=== PATIENT | female | born 1940 | race Caucasian/White ===

== ENCOUNTER 2016-12-08 18:13 | Inpatient (IN) | payer MEDICARE, OTHER ==
[~2016-12-08] VITALS: Ht 152.4 cm; Wt 72.6 kg
[~2016-12-08 18:13] MED LIST: AMLODIPINE BES2.5 MG PO; ARICEPT10 MG ORAL; ARICEPT10 MG PO; ASPIRIN EC81 MG PO; BYSTOLIC10 MG PO; DOCUSATE SODIU100 MG PO; HUMALOG100 UNIT/4 SUBQ; LORAZEPAM0.5 MG PO; NAMENDA10 MG PO; NEXIUM40 MG PO; NOVOLIN N100 UNIT/1 SUBQ; NOVOLIN R100 UNIT/1 SUBQ; SYNTHROID25 MCG PO; WELLBUTRIN75 MG ORAL
[2016-12-08] MEDS ORDERED: Vancomycin 1.5gm/D5W 300ml 325 ML IVPB ONE (18:45)
[2016-12-08] MEDS ORDERED: cefTRIAXone 1 GM in NS 55 ML IVPB ONE (18:45)
--- NOTE | 2016-12-08 19:04 | Emergency Room Report ---
History of Present Illness General Chief Complaint: General Complaint Source: Patient, Family Member Present Illness HPI Patient was seen by a scleroscope tester earlier today Patient has history of diabetes in the area on the right ankle has been worsening now increased erythema and open site Family denies any fevers Denies any vomiting or diarrhea Home health nurse apparently saw the area initially on Thursday After further outpatient attempt patient was sent in for further care Allergies: Coded Allergies: MORPHINE (Verified Adverse Reaction, Severe, PARADOXICAL REACTION, 10/08/12 ) Patient History Past Medical History: see triage record Pertinent Family History: none Reviewed Nursing Documentation: PMH: Agreed, PSxH: Agreed Nursing Documentation-PMH Past Medical History: No History, Except For Hx Cardiac Problems: Yes - Stents Hx Hypertension: Yes Hx Pacemaker: No Hx Asthma: No Hx COPD: No Hx Diabetes: Yes Hx Cancer: No Hx Gastrointestinal Problems: Yes - Cholecystecomy Hx Dialysis: No Hx Neurological Problems: Yes - Dementia Hx Cerebrovascular Accident: No Hx Dementia: Yes Hx Alzheimer's Disease: Yes Hx Seizures: No Hx Memory Loss: Yes Hx Concentration Difficulty: Yes Hx Tremors: Yes Hx Dizziness: Yes Hx Headaches: Yes Hx Weakness: Yes Review of Systems All Other Systems: negative except mentioned in HPI Physical Exam Vital Signs Date Time Temp Pulse Resp B/P Pulse Ox O2 Delivery O2 Flow Rate FiO2 12/08/16 18:35 97.5 73 16 145/70 95 Room Air Sp02 EP Interpretation: reviewed, normal General Appearance: well appearing, no apparent distress Head: normocephalic, atraumatic Eyes: bilateral eye EOMI, bilateral eye PERRL ENT: hearing grossly normal, normal pharynx, TMs + canals normal, uvula midline Neck: full range of motion, supple, no meningismus, no bony tend Respiratory: lungs clear, normal breath sounds, no rhonchi, no respiratory distress, no retraction, no accessory muscle use Cardiovascular #1: normal peripheral pulses, regular rate, rhythm, no edema, no gallop, no JVD, no murmur Gastrointestinal: normal bowel sounds, non tender, soft, no mass, no organomegaly, non-distended, no guarding, no hernia, no pulsatile mass, no rebound Genitourinary: no CVA tenderness Musculoskeletal: other - Lateral aspect of the right ankle there is a open wound mild discharge, increased erythema and mild fluctuance is palpable, patient also appears to have a previous surgical scar on the medial aspect Neurologic: oriented x3, responsive, it systems engineer III-XII nml as tested, motor strength/ tone normal, sensory intact Psychiatric: mood/affect normal Skin: other - Erythema and open wounds as noted above Lymphatic: normal inspection, no adenopathy Medical Decision Making Diagnostic Impression: Primary Impression: Cellulitis in diabetic foot Additional Impression: Decubitus ulcer ER Course Given the patient's evaluation Examination of the patient's foot In general appearance patient required IV hydration antibiotics Baseline blood work was initiated Patient showing signs of renal insufficiency Imaging was also obtained does not show any obvious osteoarthritis the patient was admitted for further care Labs Test 12/08/16 19:00 12/09/16 08:30 White Blood Count 10.3 K/UL (4.8-10.8) Red Blood Count 4.14 M/UL (4.20-5.40) Hemoglobin 12.1 G/DL (12.0-16.0) Hematocrit 37.7 % (37.0-47.0) Mean Corpuscular Volume 91 FL (80-99) Mean Corpuscular Hemoglobin 29.3 PG (27.0-31.0) Mean Corpuscular Hemoglobin Concent 32.2 G/DL (32.0-36.0) Red Cell Distribution Width 12.9 % (11.6-14.8) Platelet Count 164 K/UL (150-450) Mean Platelet Volume 7.3 FL (6.5-10.1) Neutrophils (%) (Auto) 73.7 % (45.0-75.0) Lymphocytes (%) (Auto) 15.0 % (20.0-45.0) Monocytes (%) (Auto) 6.5 % (1.0-10.0) Eosinophils (%) (Auto) 3.7 % (0.0-3.0) Basophils (%) (Auto) 1.1 % (0.0-2.0) Sodium Level 141 mEQ/L (135-145) 141 mEQ/L (135-145) Potassium Level 4.9 mEQ/L (3.4-4.9) 5.0 mEQ/L (3.4-4.9) Chloride Level 103 mEQ/L (98-107) 104 mEQ/L (98-107) Carbon Dioxide Level 23 mEQ/L (20-30) 23 mEQ/L (20-30) Anion Gap 15 (5-15) 14 (5-15) Blood Urea Nitrogen 25 mg/dL (7-23) 23 mg/dL (7-23) Creatinine 1.4 mg/dL (0.5-0.9) 1.4 mg/dL (0.5-0.9) Estimat Glomerular Filtration Rate mL/min (>60) mL/min (>60) Glucose Level 224 mg/dL (74-106) 258 mg/dL (74-106) Lactic Acid Level 1.60 mmol/L (0.66-2.22) Calcium Level 8.6 mg/dL (8.6-10.2) 8.7 mg/dL (8.6-10.2) Total Bilirubin 0.2 mg/dL (0.0-1.2) 0.2 mg/dL (0.0-1.2) Aspartate Amino Transf (AST/SGOT) 13 U/L (5-40) 11 U/L (5-40) Alanine Aminotransferase (ALT/SGPT) 9 U/L (3-33) 7 U/L (3-33) Alkaline Phosphatase 76 U/L (35-104) 64 U/L (35-104) Total Creatine Kinase 40 U/L (26-140) 32 U/L (26-140) Creatine Kinase MB < 1.5 ng/mL (< 3.8) Creatine Kinase MB Relative Index Total Protein 6.1 g/dL (6.6-8.7) 5.4 g/dL (6.6-8.7) Albumin 3.3 g/dL (3.5-5.2) 2.8 g/dL (3.5-5.2) Globulin 2.8 g/dL 2.6 g/dL Albumin/Globulin Ratio 1.1 (1.0-2.7) 1.0 (1.0-2.7) Uric Acid 2.6 mg/dL (3.0-7.5) Phosphorus Level 2.8 mg/dL (2.5-4.8) Magnesium Level 1.5 mg/dL (1.7-2.5) Free Thyroxine 1.33 ng/dL (0.86-1.85) Free Triiodothyronine 2.0 pg/mL (2.3-4.2) Rhythm Strip Diag. Results EP Interpretation: yes Rate: 77 Rhythm: NSR, no PVC's, no ectopy Chest X-Ray Diagnostic Results EP Interpretation: Yes Findings: no consolidation, no effusion, no pneumothorax Number of Views: 1 Other X-Ray Diagnostic Results Other X-Ray Diagnostic Results : EP Interpretation: Yes Findings: no fractures, no dislocation, other - Evidence of previous hardware surgery, soft tissue changes Number of Views: 3 - right ankle Last Vital Signs Date Time Temp Pulse Resp B/P Pulse Ox O2 Delivery O2 Flow Rate FiO2 12/08/16 18:35 97.5 73 16 145/70 95 Room Air Status: improved Disposition: ADMITTED INPATIENT Condition: Serious Referrals: LOYDA ALATORRE (PCP) YANA GAMING D.O. Dec 08, 2016 19:03
[2016-12-08 20:02] LABS: BASOPHILS % (AUTO) 1.1 % (0.0-2.0); EOSINOPHILS % (AUTO) 3.7 % (0.0-3.0); MEAN CORPUSCULAR HEMOGLOBIN 29.3 PG (27.0-31.0); MEAN CORPUSCULAR HGB CONC 32.2 G/DL (32.0-36.0); MEAN CORPUSCULAR VOLUME 91 FL (80-99); MEAN PLATELET VOLUME 7.3 FL (6.5-10.1); MONOCYTES % (AUTO) 6.5 % (1.0-10.0); NEUTROPHILS % (AUTO) 73.7 % (45.0-75.0); PLATELET COUNT 164 K/UL (150-450); RED BLOOD COUNT 4.14 M/UL (4.20-5.40); RED CELL DISTRIBUTION WIDTH 12.9 % (11.6-14.8); WHITE BLOOD COUNT 10.3 K/UL (4.8-10.8)
[2016-12-08 20:15] LABS: ALANINE AMINOTRANSFERASE 9 U/L (3-33); ALBUMIN/GLOBULIN RATIO 1.1 (1.0-2.7); ANION GAP 15 (5-15); ASPARTATE AMINO TRANSFERASE 13 U/L (5-40); CALCIUM 8.6 mg/dL (8.6-10.2); CARBON DIOXIDE 23 mEQ/L (20-30); CHLORIDE 103 mEQ/L (98-107); CREATININE 1.4 mg/dL (0.5-0.9); HEMOLYSIS 7; POTASSIUM 4.9 mEQ/L (3.4-4.9); SODIUM 141 mEQ/L (135-145); TOTAL PROTEIN 6.1 g/dL (6.6-8.7)
[2016-12-08 20:25] LABS: CKMB < 1.5 ng/mL (< 3.8)
[2016-12-08] MEDS ORDERED: NOVOLIN N100 UNIT/1 SUBQ ×2 (20:27)
[2016-12-08] MEDS ORDERED: NOVOLOG100 UNIT/4 SQ (20:28)
[2016-12-08] MEDS ORDERED: DOCUSATE SODIU100 MG ORAL (20:29)
[2016-12-08] MEDS ORDERED: MULTIVITAMINS1 EAC2 ORAL (20:29)
[2016-12-08 20:48] VITALS: BP 156/67
[2016-12-08] MEDS ORDERED: TORSEMIDE10 MG PO (20:51)
[2016-12-08] MEDS ORDERED: FOSAMAX70 MG ORAL (20:51)
[2016-12-08] MEDS ORDERED: CRESTOR10 M2 ORAL (20:55)
[2016-12-08] MEDS ORDERED: PLAVIX75 MG ORAL (20:55)
[2016-12-08] MEDS ORDERED: NEXIUM20 M1 ORAL (20:55)
[2016-12-08] MEDS ORDERED: PAZEO2.5 ML OP (20:55)
[2016-12-08] MEDS ORDERED: EDARBYCLOR 40-1 EACH ORAL (20:58)
[2016-12-08] MEDS ORDERED: NAMZARIC 21 MG1 EACH PO (20:58)
[2016-12-08] MEDS ORDERED: ULORIC40 MG ORAL (20:58)
[2016-12-08 22:00] VITALS: BP 162/77
[2016-12-08] MEDS ORDERED: DiphenhydrAMINE 50mg/ml Inj IVP PRN (22:45)
[2016-12-09] VITALS: BP 148/81
[2016-12-09 04:00] VITALS: BP 117/59
[2016-12-09] MEDS ORDERED: LORazepam Inj 2mg/ml 1ml IV PRN (05:45)
[2016-12-09] MEDS ORDERED: Mylanta II UD 30ml ORAL PRN (05:45)
[2016-12-09] MEDS ORDERED: Miralax 17gm pkt ORAL PRN (05:45)
[2016-12-09] MEDS ORDERED: Morphine Sulfate 2mg/ml Inj IVP PRN (05:45)
[2016-12-09] MEDS ORDERED: Zolpidem 5mg tab ORAL PRN (05:45)
[2016-12-09] MEDS ORDERED: Cefepime 1gm vial ONE (06:05)
[2016-12-09] MEDS: Cefepime HCl 1 GM in D5W 55 ML IV SCH (06:15)
[2016-12-09] MEDS: Levothyroxine 25mcg tab ORAL SCH (06:16)
[2016-12-09] MEDS: NovoLOG Insulin Flexpen SUBQ SCH ×4 (06:25→21:58)
[2016-12-09 08:30] VITALS: BP 128/60
[2016-12-09] MEDS: Donepezil 10mg tab ORAL SCH (08:43)
[2016-12-09] MEDS: Memantine 10mg tab ORAL SCH (08:43)
[2016-12-09] MEDS: Aspirin EC 81mg tab ORAL SCH (08:43)
[2016-12-09] MEDS: Bystolic 2.5mg Tab ORAL SCH (08:43)
[2016-12-09] MEDS: Heparin 5000 units/ml inj SUBQ SCH ×2 (08:49→21:59)
[2016-12-09 09:30] LABS: ALANINE AMINOTRANSFERASE 7 U/L (3-33); ANION GAP 14 (5-15); ASPARTATE AMINO TRANSFERASE 11 U/L (5-40); CALCIUM 8.7 mg/dL (8.6-10.2); CARBON DIOXIDE 23 mEQ/L (20-30); CHLORIDE 104 mEQ/L (98-107); CREATININE 1.4 mg/dL (0.5-0.9); HEMOLYSIS 7; MAGNESIUM 1.5 mg/dL (1.7-2.5); PHOSPHORUS 2.8 mg/dL (2.5-4.8); SODIUM 141 mEQ/L (135-145); TOTAL PROTEIN 5.4 g/dL (6.6-8.7); URIC ACID 2.6 mg/dL (3.0-7.5)
--- NOTE | 2016-12-09 09:36 | Diagnostic Imaging Report ---
Indication: PAIN Technique: 3 views of the right ankle Comparison: none Findings: There is surgical hardware seen reducing old healed distal fibular and medial malleolar fractures. No acute fractures. No dislocations. Bones are demineralized. There are vascular calcifications Impression: Postsurgical and posttraumatic changes, as described No acute bony trauma
--- NOTE | 2016-12-09 10:26 | Wound Care Consultation ---
Wound Assessment Wound Assessment #1: Wound Number: #1 Wound Present on Admission: Yes New Wound: No Status Change of Wound: No Wound Location Body Site Modif: right, lateral Wound Location Body Site: malleolus/ankle Wound Type: pressure ulcer Ewelina Test: Does not Ewelina Pressure Ulcer Stage: IV/unstageable Wound Thickness: Full Thickness Wound Length: 2.0 Wound Width: 2.0 Wound Depth: utd Percent of Wound Bed Yellow/Wh: 70 Percent of Wound Black/Brown: 10 Percent of Wound Purple/Maroon: 20 Wound Drainage Amount: None Wound Drainage Odor: None/Absent Tissue Surrounding Wound: Macerated Wound General Appearance: Reddened, Bone Palpable - bone is palpable but not visible. Wound Assessment #2: Wound Number: #2 Wound Present on Admission: Yes New Wound: No Status Change of Wound: No Wound Location Body Site Modif: mid Wound Location Body Site: sacral Wound Type: pressure ulcer Ewelina Test: Does not Ewelina Pressure Ulcer Stage: I Wound Length: 4.0 Wound Width: 4.0 Percent of Wound [place]/Red: 100 Wound Drainage Amount: None Tissue Surrounding Wound: Erythemic - skin remains intact Wound General Appearance: Reddened Wound Assessment #3: Wound Number: #3 Wound Present on Admission: Yes New Wound: No Status Change of Wound: No Wound Location Body Site Modif: right Wound Location Body Site: breast fold Wound Type: other - intertrigo Ewelina Test: Does not Ewelina Wound Thickness: Partial Thickness Wound Drainage Amount: None Wound Drainage Odor: None/Absent Tissue Surrounding Wound: Erythemic Wound General Appearance: Reddened, Open to air Wound Comment #1 Right lateral malleolus pressure ulcer stage IV/Unstageable. #2 Right breast fold Intertrigo #3 Sacral pressure ulcer stage I. Recommendation -FOLLOW UP WITH PODIATRY. -Apply low air loss overlay mattress (SPR). -Turn and reposition. -Offload both heels and feet. -Offload sacral site. -Apply heel protectors. -Optimize nutrition. -Keep clean and dry. -Assess and follow up with MD if any changes of condition are noted. JEOVANY HOGUE Dec 09, 2016 10:26
[2016-12-09 12:00] VITALS: BP 145/72
[2016-12-09] MEDS: Nystatin Powder 100,000 units/gm 15gm TOPIC SCH ×2 (12:36→18:01)
--- NOTE | 2016-12-09 12:40 | Diagnostic Imaging Report ---
Indication: SOB Technique: One view of the chest Comparison: 05/20/2013 Findings: There is some atelectasis of the left lung base. Patient is rotated to the right. The heart is enlarged. Findings are unchanged Impression: Cardiomegaly. No acute process
--- NOTE | 2016-12-09 15:31 | History and Physical ---
History of Present Illness General Date patient seen: Dec 09, 2016 Reason for Hospitalization: General Complaint Present Illness HPI 76 year old female with hx of Dementia, bed bound, diabetes, presented to ER with worsening of Left foot ulcer. Patient was seen by a sash maker earlier, who recommended hospitalization and IV antibiotics Family denies any fevers. After further outpatient attempt patient was sent in for further care. Allergies: Coded Allergies: MORPHINE (Verified Adverse Reaction, Severe, PARADOXICAL REACTION, 10/08/12 ) Medication History Scheduled Alendronate Sodium* (Fosamax*), 70 MG ORAL ONCE A WEEK, (Reported) Amlodipine Besylate* (Amlodipine Besylate*), 2.5 MG PO DAILY, (Reported) Aspirin Ec* (Aspirin Ec*), 81 MG PO DAILY, (Reported) Azilsartan Med/Chlorthalidone (Edarbyclor 40-12.5 Mg Tablet), 1 TAB ORAL DAILY, (Reported) Bupropion Hcl* (Wellbutrin*), MG ORAL DAILY, (Reported) Clopidogrel Bisulfate* (Plavix*), 75 MG ORAL DAILY, (Reported) Docusate Sodium* (Docusate Sodium*), 100 MG PO BID, (Reported) Docusate Sodium* (Docusate Sodium*), 100 MG ORAL TWICE A DAY, (Reported) Donepezil Hcl* (Aricept*), 10 MG PO DAILY, (Reported) Esomeprazole Magnesium (Nexium), 40 MG PO DAILY, (Reported) Esomeprazole Magnesium (Nexium), Unknown Dose ORAL DAILY, (Reported) Febuxostat (Uloric), 40 MG ORAL DAILY, (Reported) Insulin Aspart (Novolog), Unknown Dose SQ AC+HS, (Reported) Insulin Lispro (Humalog), 16 SUBQ BID, (Reported) Insulin Regular, Human* (Novolin R*), 0 SUBQ .SLIDING SCALE, (Reported) Levothyroxine Sodium* (Synthroid*), 25 MCG PO DAILY, (Reported) Lorazepam* (Lorazepam*), 0.5 MG PO TID, (Reported) Memantine HCl/Donepezil HCl (Namzaric 21 Mg-10 Mg Capsule), 1 EACH PO DAILY, ( Reported) Memantine Hcl* (Namenda*), 10 MG PO DAILY, (Reported) Multivitamins* (Multivitamins*), 1 TAB ORAL DAILY, (Reported) Nebivolol Hcl (Bystolic*), 5 MG PO DAILY, (Reported) Nph, Human Insulin Isophane* (Novolin N*), 20 SUBQ BID, (Reported) Nph, Human Insulin Isophane* (Novolin N*), 15 UNITS SUBQ DAILY, (Reported) Rosuvastatin Calcium* (Crestor*), 10 MG ORAL DAILY, (Reported) Torsemide* (Demadex*), 10 MG PO DAILY, (Reported) Miscellaneous Medications Nph, Human Insulin Isophane* (Novolin N*), 5 UNITS SUBQ, (Reported) Olopatadine HCl (Pazeo), 2.5 ML OP, (Reported) Patient History Healthcare decision maker Resuscitation status Advanced Directive on File No Past Medical/Surgical History Past Medical/Surgical History: (1) Dementia (2) Diabetes mellitus Review of Systems All Other Systems: negative except mentioned in HPI Physical Exam General Appearance: WD/WN Lines, tubes and drains: peripheral, central line HEENT: normocephalic, anicteric Neck: non-tender, normal alignment Respiratory/Chest: chest wall non-tender, lungs clear, normal breath sounds Cardiovascular/Chest: normal peripheral pulses, normal rate Abdomen: normal bowel sounds, non tender Genitourinary/Rectal: normal genital exam, normal rectal exam Extremities: normal range of motion, non-tender Last 24 Hour Vital Signs Date Time Temp Pulse Resp B/P Pulse Ox O2 Delivery O2 Flow Rate FiO2 12/09/16 12:00 97.7 58 19 145/72 96 Room Air 12/09/16 08:43 62 117/59 12/09/16 08:30 97.7 60 19 128/60 94 Room Air 12/09/16 04:00 97.7 62 18 117/59 93 Room Air 12/09/16 00:00 97.3 56 18 148/81 96 Room Air 12/08/16 23:21 162/77 12/08/16 22:00 97.2 54 16 162/77 97 Room Air 12/08/16 21:10 58 16 164/65 99 Room Air 12/08/16 20:48 96.8 55 14 156/67 97 Room Air 12/08/16 18:35 97.5 73 16 145/70 95 Room Air Intake and Output 12/08/16 12/09/16 19:00 07:00 Intake Total 205 ml Balance 205 ml Intake Oral 100 ml IV Total 105 ml # Voids 3 # Bowel Movements 2 Laboratory Tests Test 12/08/16 19:00 12/09/16 08:30 White Blood Count 10.3 K/UL (4.8-10.8) Red Blood Count 4.14 M/UL (4.20-5.40) L Hemoglobin 12.1 G/DL (12.0-16.0) Hematocrit 37.7 % (37.0-47.0) Mean Corpuscular Volume 91 FL (80-99) Mean Corpuscular Hemoglobin 29.3 PG (27.0-31.0) Mean Corpuscular Hemoglobin Concent 32.2 G/DL (32.0-36.0) Red Cell Distribution Width 12.9 % (11.6-14.8) Platelet Count 164 K/UL (150-450) Mean Platelet Volume 7.3 FL (6.5-10.1) Neutrophils (%) (Auto) 73.7 % (45.0-75.0) Lymphocytes (%) (Auto) 15.0 % (20.0-45.0) L Monocytes (%) (Auto) 6.5 % (1.0-10.0) Eosinophils (%) (Auto) 3.7 % (0.0-3.0) H Basophils (%) (Auto) 1.1 % (0.0-2.0) Sodium Level 141 mEQ/L (135-145) 141 mEQ/L (135-145) Potassium Level 4.9 mEQ/L (3.4-4.9) 5.0 mEQ/L (3.4-4.9) H Chloride Level 103 mEQ/L (98-107) 104 mEQ/L (98-107) Carbon Dioxide Level 23 mEQ/L (20-30) 23 mEQ/L (20-30) Anion Gap 15 (5-15) 14 (5-15) Blood Urea Nitrogen 25 mg/dL (7-23) H 23 mg/dL (7-23) Creatinine 1.4 mg/dL (0.5-0.9) H 1.4 mg/dL (0.5-0.9) H Estimat Glomerular Filtration Rate mL/min (>60) mL/min (>60) Glucose Level 224 mg/dL (74-106) H 258 mg/dL (74-106) H Lactic Acid Level 1.60 mmol/L (0.66-2.22) Calcium Level 8.6 mg/dL (8.6-10.2) 8.7 mg/dL (8.6-10.2) Total Bilirubin 0.2 mg/dL (0.0-1.2) 0.2 mg/dL (0.0-1.2) Aspartate Amino Transf (AST/SGOT) 13 U/L (5-40) 11 U/L (5-40) Alanine Aminotransferase (ALT/SGPT) 9 U/L (3-33) 7 U/L (3-33) Alkaline Phosphatase 76 U/L (35-104) 64 U/L (35-104) Total Creatine Kinase 40 U/L (26-140) 32 U/L (26-140) Creatine Kinase MB < 1.5 ng/mL (< 3.8) Creatine Kinase MB Relative Index Total Protein 6.1 g/dL (6.6-8.7) L 5.4 g/dL (6.6-8.7) L Albumin 3.3 g/dL (3.5-5.2) L 2.8 g/dL (3.5-5.2) L Globulin 2.8 g/dL 2.6 g/dL Albumin/Globulin Ratio 1.1 (1.0-2.7) 1.0 (1.0-2.7) Plasma/Serum Osmolality Pending Uric Acid 2.6 mg/dL (3.0-7.5) L Phosphorus Level 2.8 mg/dL (2.5-4.8) Magnesium Level 1.5 mg/dL (1.7-2.5) L Free Thyroxine 1.33 ng/dL (0.86-1.85) Free Triiodothyronine 2.0 pg/mL (2.3-4.2) L Cortisol Pending Height (Feet): 5 Height (Inches): 0.00 Weight (Pounds): 160 Medications Current Medications Medications (Trade) Dose Ordered Sig/Rina Route PRN Reason Start Time Stop Time Status Last Admin Dose Admin Acetaminophen (Tylenol) 650 mg Q4H PRN ORAL fever 12/09/16 05:45 317 05:44 Al Hydroxide/Mg Hydroxide (Mylanta II) 30 ml Q6H PRN ORAL dyspepsia 12/09/16 05:45 01/08/17 05:44 Amlodipine Besylate (Norvasc) 2.5 mg DAILY ORAL 12/09/16 09:00 01/08/17 08:59 12/09/16 08:43 Aspirin (Ecotrin) 81 mg DAILY ORAL 12/09/16 09:00 01/08/17 08:59 12/09/16 08:43 Cefepime HCl/ Dextrose (Maxipime/D5W) 55 ml @ 110 mls/hr Q24H IV 12/09/16 06:00 12/16/16 05:59 12/09/16 06:15 Clonidine HCl (Catapres) 0.1 mg EVERY 6 HOURS PRN ORAL SBP>160 12/08/16 22:15 01/07/17 22:14 12/08/16 23:21 Dextrose STAT PRN IV Hypoglycemia 12/09/16 05:45 01/08/17 05:44 Diphenhydramine HCl (Benadryl) 25 mg Q6H PRN IVP Itching 12/08/16 22:45 01/07/17 22:44 Donepezil HCl (Aricept) 10 mg DAILY ORAL 12/09/16 09:00 01/08/17 08:59 12/09/16 08:43 Heparin Sodium (Porcine) (Heparin 5000 units/ml) 5,000 units EVERY 12 HOURS SUBQ 12/09/16 09:00 01/08/17 08:59 12/09/16 08:49 Insulin Aspart (NovoLOG) BEFORE MEALS AND HS SUBQ 12/09/16 06:30 01/08/17 06:29 12/09/16 11:43 Levothyroxine Sodium (Synthroid) 25 mcg ACBREAKFAST ORAL 12/09/16 06:30 01/08/17 06:29 12/09/16 06:16 Lorazepam (Ativan 2mg/ml 1ml) 0.5 mg Q4H PRN IV For Anxiety 12/09/16 05:45 12/16/16 05:44 Memantine (Namenda) 10 mg DAILY ORAL 12/09/16 09:00 01/08/17 08:59 12/09/16 08:43 Nebivolol (Bystolic) 5 mg DAILY ORAL 12/09/16 09:00 01/08/17 08:59 12/09/16 08:43 Nystatin (Nystop Powder) 1 applic THREE TIMES A DAY TOPIC 12/09/16 13:00 01/08/17 12:59 12/09/16 12:36 Ondansetron HCl (Zofran) 4 mg Q6H PRN IVP Nausea & Vomiting 12/09/16 05:45 01/08/17 05:44 Polyethylene Glycol (Miralax) 17 gm HSPRN PRN ORAL Constipation 12/09/16 05:45 01/08/17 05:44 Vancomycin HCl 1 ea 1 ea DAILY PRN MISC Per rx protocol 12/09/16 05:45 01/08/17 05:44 Vancomycin HCl/ Dextrose (Vancomycin/D5W) 275 ml @ 183.708 mls/hr Q24H IVPB 12/09/16 21:00 12/14/16 20:59 Zolpidem Tartrate (Ambien) 5 mg HSPRN PRN ORAL Insomnia 12/09/16 05:45 01/08/17 05:44 Assessment/Plan Problem List: (1) Cellulitis in diabetic foot ICD Codes: E13.628 - Other specified diabetes mellitus with other skin complications; L03.119 - Cellulitis of unspecified part of limb SNOMED: 882705785, 78325687 (2) Decubitus ulcer ICD Codes: L89.90 - Pressure ulcer of unspecified site, unspecified stage SNOMED: 469159708 (3) Dementia ICD Codes: F03.90 - Unspecified dementia without behavioral disturbance SNOMED: 52048798 (4) Diabetes mellitus ICD Codes: E11.9 - Type 2 diabetes mellitus without complications SNOMED: 24121329 Assessment/Plan wound care IV antibiotics podiatry sliding scale diabetic diet SHYAM NAVA Dec 09, 2016 15:31
[2016-12-09 16:00] VITALS: BP 134/72
--- NOTE | 2016-12-09 16:05 | Consultation ---
Consult Note Assessment/Plan A/ 1) Cellulitis right LE 2) Nonpressure ulcer to level of fascia right lateral ankle 3) DM 4) Difficulty walking 5) S/P ORIF right ankle P/ 1) Cont IV abx as ordered 2) Will order wound care 3) Bone Scan to evaluate for osteo. MRI C/I 2/2 to hardware present 4) Arterial Ultz pending. X-rays and Venous ultz reviewed 5) Will follow Thank you Barry Ivey DPM Dec 09, 2016 16:05
--- NOTE | 2016-12-09 18:07 | Consultation ---
Consult Note Consult Note ID CONSULT: Dict# [id number] Assessment/Plan ASSESSMENT: 76 y/o female with: // Right medial ankle cellulitis, ulcer r/o osteomyelitis, hardware infection - 3P bone scan: pending - XR: surgical hardware seen reducing old healed distal fibular and medial malleolar fractures. No acute fractures. No dislocations. Bones are demineralized. - h/o right ankle ORIF // Winter intertrigo // Afebrile without leukocytosis // Dementia // DM // h/o CAD // No ABX allergies // Full Code PLAN: - continue empiric IV vancomycin, cefepime d# 1, nystatin powder - check ESR, CRP - f/u cultures - f/u bone scan - monitor CBC, temperatures - monitor BMP - wound care Thanks! Will follow WENDY CHAPMAN Dec 09, 2016 18:07
[2016-12-09 20:00] VITALS: BP 151/74
[2016-12-09] MEDS: Vancomycin 750mg/D5W 275ml IVPB SCH ×2 (21:52)
--- NOTE | 2016-12-09 22:58 | Consultation ---
DATE OF CONSULTATION: 12/09/2016 REQUESTING PHYSICIAN: Zahra Barrera M.D. REASON FOR CONSULTATION: Cellulitis. HISTORY OF PRESENT ILLNESS: This is a 76-year-old demented diabetic female admitted on 12/08/2016 right ankle cellulitis. She has evidence of previous surgery and underlying hardware. The patient unable to provide additional information. A bone scan is pending to rule out osteomyelitis and she has been started on empiric vancomycin and cefepime and ID now consulted to assist in management. PAST MEDICAL HISTORY: 1. Diabetes. 2. Coronary artery disease status post stenting. 3. Dementia. PAST SURGICAL HISTORY: 1. Cholecystectomy. 2. Right ankle surgery. 3. Right elbow surgery. ALLERGIES: 1. Morphine. MEDICATIONS: 1. Vancomycin. 2. Cefepime. 3. Please for additional medications. FAMILY HISTORY: Noncontributory. SOCIAL HISTORY: Unknown. REVIEW OF SYSTEMS: Unable to obtain. PHYSICAL EXAMINATION: VITAL SIGNS: Maximum temperature 97.7, blood pressure 134/72, heart rate 60, respiratory rate 20, and saturating 94% on room air. GENERAL: No apparent distress, nontoxic appearing. CARDIOVASCULAR: Regular rate and rhythm. No murmurs. PULMONARY: Clear to auscultation bilaterally. ABDOMEN: Bowel sounds present. Soft, nondistended, and nontender. EXTREMITIES: Erythema and warmth over the right medial malleolus with superficial ulceration. LABORATORY DATA: White blood cell count 10.3, hemoglobin 12.1, platelets 164,000. Sodium 141, potassium 5, chloride 104, bicarbonate 23, BUN 23, and creatinine 1.4. Lactic acid 1.6. Liver function tests within normal limits. MICROBIOLOGY: 12/08/2016, blood culture pending. IMAGING: Three-phase bone scan pending ASSESSMENT: 1. Right medial ankle cellulitis and superficial ulceration, rule out osteomyelitis and hardware infection. X-ray shows a surgical hardware in place with no fractures or dislocations. Three-phase bone scan is pending. 2. Candidal intertrigo. 3. Afebrile without leukocytosis. 4. Dementia. 5. Diabetes. 6. History of coronary artery disease. 7. No antibiotic allergies. 8. Full Code. PLAN: 1. Continue empiric IV vancomycin and cefepime day #1 and nystatin powder. 2. Check ESR and CRP. 3. Follow up cultures. 4. Follow up bone scan. 5. Monitor CBC and temperatures. 6. Monitor BMP. 7. Wound care. Thank you. We will follow. Ever Wynn M.D. DR: Donny JOB#: [id number] CC: Zahra Barrera M.D.; Fax#: [phone] Mixon M.D; Fax#: [phone]
[2016-12-10] VITALS: BP 138/58
[2016-12-10 04:00] VITALS: BP 134/64
[2016-12-10] MEDS: Levothyroxine 25mcg tab ORAL SCH (05:47)
[2016-12-10] MEDS: Cefepime HCl 1 GM in D5W 55 ML IV SCH (05:48)
[2016-12-10] MEDS: NovoLOG Insulin Flexpen SUBQ SCH ×4 (05:49→20:53)
[2016-12-10 07:33] LABS: BASOPHILS % (AUTO) 0.9 % (0.0-2.0); EOSINOPHILS % (AUTO) 4.4 % (0.0-3.0); LYMPHOCYTES % (AUTO) 21.7 % (20.0-45.0); MEAN CORPUSCULAR HEMOGLOBIN 31.1 PG (27.0-31.0); MEAN CORPUSCULAR HGB CONC 35.1 G/DL (32.0-36.0); MEAN CORPUSCULAR VOLUME 89 FL (80-99); MEAN PLATELET VOLUME 7.2 FL (6.5-10.1); MONOCYTES % (AUTO) 8.2 % (1.0-10.0); NEUTROPHILS % (AUTO) 64.9 % (45.0-75.0); PLATELET COUNT 145 K/UL (150-450); RED BLOOD COUNT 3.59 M/UL (4.20-5.40); RED CELL DISTRIBUTION WIDTH 12.7 % (11.6-14.8); WHITE BLOOD COUNT 6.9 K/UL (4.8-10.8)
[2016-12-10 07:54] LABS: ALANINE AMINOTRANSFERASE 7 U/L (3-33); ALBUMIN/GLOBULIN RATIO 1.1 (1.0-2.7); ANION GAP 13 (5-15); ASPARTATE AMINO TRANSFERASE 11 U/L (5-40); CARBON DIOXIDE 24 mEQ/L (20-30); CHLORIDE 105 mEQ/L (98-107); CHOLESTEROL 124 mg/dL (< 200); CHOLESTEROL/HDL RATIO 3.6 (3.3-4.4); CREATININE 1.4 mg/dL (0.5-0.9); HEMOLYSIS 5; LDL CHOLESTEROL (CALC.) 46 mg/dL (60-99); POTASSIUM 4.7 mEQ/L (3.4-4.9); SODIUM 142 mEQ/L (135-145); TOTAL PROTEIN 5.4 g/dL (6.6-8.7)
[2016-12-10 08:18] LABS: HEMOGLOBIN A1C 6.7 % (< 6.0)
[2016-12-10 08:30] VITALS: BP 134/93
[2016-12-10] MEDS: Heparin 5000 units/ml inj SUBQ SCH ×2 (09:00→20:40)
[2016-12-10] MEDS: Bystolic 2.5mg Tab ORAL SCH (09:11)
[2016-12-10] MEDS: Aspirin EC 81mg tab ORAL SCH (09:11)
[2016-12-10] MEDS: Memantine 10mg tab ORAL SCH (09:11)
[2016-12-10] MEDS: Donepezil 10mg tab ORAL SCH (09:11)
[2016-12-10] MEDS: Nystatin Powder 100,000 units/gm 15gm TOPIC SCH ×3 (09:12→18:10)
[2016-12-10 09:36] LABS: CORTISOL LC 11.1 ug/dL (.)
[2016-12-10] MEDS ORDERED: NS 275ml ONE (11:15)
[2016-12-10] MEDS ORDERED: Tubing IV Secondary IV ONE (11:15)
[2016-12-10 12:12] VITALS: BP 130/85
--- NOTE | 2016-12-10 13:41 | Diagnostic Imaging Report ---
Indications: Elevated renal function tests Technique: Transabdominal real-time grayscale and duplex Doppler imaging of the kidneys, retroperitoneum, and urinary bladder was performed Findings: Comparison: 10/11/2012 Right kidney poorly visualized measures approximately 9 cm in length. Normal cortical echogenicity, moderate cortical atrophy. No stones, other focal lesions, hydronephrosis, or obvious perinephric abnormalities. Left kidney suboptimally visualized, measures 9.4 cm in length. Normal cortical echogenicity, moderate cortical atrophy. No stones, other focal lesions, hydronephrosis, or obvious perinephric abnormalities. The intrahepatic portion of inferior vena cava is patent and normal caliber. The urinary bladder is [[place] catheter. Impression: Suboptimal evaluation of kidneys demonstrating apparent cortical atrophy compatible with chronic medical renal disease
--- NOTE | 2016-12-10 15:18 | Diagnostic Imaging Report ---
Indications: Right ankle ulcer Technique: 26.2 mCi 90 9M technetium MDP administered intravenously. Planar imaging of the ankles and feet performed in immediate serial blood flow, immediate static blood pool (multiplanar), and 3 hour delayed (multiplanar) phases. Findings: Comparison: Right ankle radiographs 12/08/2016 Increased activity is present throughout the right distal leg, ankle, and foot compared left on blood flow images. There is superimposed focal increased activity in the region of the right distal fibula on all 3 phases of imaging. Impression: Right lower extremity hyperemia. 3 phase increased activity in region of distal aspect of right fibula compatible with hardware loosening and/or osteomyelitis.
[2016-12-10 16:00] VITALS: BP 153/70
--- NOTE | 2016-12-10 16:13 | Diagnostic Imaging Report ---
APPROVED REPORT CPT Code: 56623 Symptoms Non-healing Ulcer : Right Comments: Right foot swelling RIGHT LEG: Common femoral artery waveform analysis is within normal limits at rest. Color flow duplex sonography reveals minimal calcification throughout the superficial femoral, and popliteal arteries. There is no evidence of stenosis or occlusion within these segments. Doppler tibial artery waveform analysis is compatible with minimal ischemia. LEFT LEG: Common femoral artery waveform analysis is within normal limits at rest. Color flow duplex sonography reveals minimal calcification throughout the superficial femoral, and popliteal arteries. There is no evidence of stenosis or occlusion within these segments. Doppler tibial artery waveform analysis is within normal limits.
--- NOTE | 2016-12-10 16:13 | Diagnostic Imaging Report ---
APPROVED REPORT CPT Code: 40146 Present Symptoms Lower Extremity Edema: Right Comments: Right foot ulcer BILATERAL: Imaging reveals a patent deep venous system bilaterally. There is no evidence of thrombus within the femoral, popliteal or tibial segments. The greater saphenous veins are also within normal limits. Doppler indicates normal spontaneous flow within these segments.
--- NOTE | 2016-12-10 17:27 | Pulmonology Progress Note ---
Assessment/Plan Problems: (1) Cellulitis in diabetic foot (2) Decubitus ulcer (3) Dementia (4) Diabetes mellitus Assessment/Plan wound care iv antibioitcs f/u electrolytes f/u by podiatry Subjective ROS Limited/Unobtainable: No Constitutional: Reports: no symptoms HEENT: Repors: no symptoms Respiratory: Reports: no symptoms Allergies: Coded Allergies: MORPHINE (Verified Adverse Reaction, Severe, PARADOXICAL REACTION, 10/08/12 ) Objective Last 24 Hour Vital Signs Date Time Temp Pulse Resp B/P Pulse Ox O2 Delivery O2 Flow Rate FiO2 12/10/16 16:00 96.6 64 19 153/70 96 Room Air 12/10/16 12:12 98.2 65 20 130/85 95 Room Air 12/10/16 09:12 62 134/93 12/10/16 08:30 98.4 62 20 134/93 95 Room Air 12/10/16 04:00 98.2 61 18 134/64 93 Room Air 12/10/16 00:00 97.8 61 19 138/58 93 Room Air 12/09/16 20:00 99.9 65 20 151/74 92 Room Air Intake and Output 12/09/16 12/10/16 19:00 07:00 Intake Total 480 ml 570 ml Balance 480 ml 570 ml Intake Oral 480 ml 240 ml IV Total 330 ml # Voids 1 4 # Bowel Movements 1 General Appearance: WD/WN HEENT: normocephalic, atraumatic Respiratory/Chest: chest wall non-tender, lungs clear Cardiovascular: normal peripheral pulses, normal rate Abdomen: normal bowel sounds, no organomegaly Extremities: no cyanosis 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: core rescuer II-XII grossly normal Microbiology Date/Time Source Procedure Growth Status 12/08/16 19:20 Blood Blood Culture - Preliminary NO GROWTH AFTER 24 HOURS Resulted 12/08/16 19:20 Blood Blood Culture - Preliminary NO GROWTH AFTER 24 HOURS Resulted Laboratory Tests 12/10/16 05:55: White Blood Count 6.9, Red Blood Count 3.59L, Hemoglobin 11.2L, Hematocrit 31.8L , Mean Corpuscular Volume 89, Mean Corpuscular Hemoglobin 31.1H, Mean Corpuscular Hemoglobin Concent 35.1, Red Cell Distribution Width 12.7, Platelet Count 145L, Mean Platelet Volume 7.2, Neutrophils (%) (Auto) 64.9, Lymphocytes ( %) (Auto) 21.7, Monocytes (%) (Auto) 8.2, Eosinophils (%) (Auto) 4.4H, Basophils (%) (Auto) 0.9, Erythrocyte Sedimentation Rate 79H, Sodium Level 142, Potassium Level 4.7, Chloride Level 105, Carbon Dioxide Level 24, Anion Gap 13, Blood Urea Nitrogen 24H, Creatinine 1.4H, Estimat Glomerular Filtration Rate , Glucose Level 139#H, Hemoglobin A1c 6.7H, Calcium Level 9.0, Total Bilirubin 0.2 , Aspartate Amino Transf (AST/SGOT) 11, Alanine Aminotransferase (ALT/SGPT) 7, Alkaline Phosphatase 66, C-Reactive Protein, Quantitative 1.2H, Total Protein 5.4L, Albumin 2.9L, Globulin 2.5, Albumin/Globulin Ratio 1.1, Triglycerides Level 218H, Cholesterol Level 124, LDL Cholesterol 46L, HDL Cholesterol 34, Cholesterol/HDL Ratio 3.6, Thyroid Stimulating Hormone (TSH) 2.700 Current Medications Medications (Trade) Dose Ordered Sig/Rina Route PRN Reason Start Time Stop Time Status Last Admin Dose Admin Acetaminophen (Tylenol) 650 mg Q4H PRN ORAL fever 12/09/16 05:45 01/08/17 05:44 Al Hydroxide/Mg Hydroxide (Mylanta II) 30 ml Q6H PRN ORAL dyspepsia 12/09/16 05:45 01/08/17 05:44 Amlodipine Besylate (Norvasc) 2.5 mg DAILY ORAL 12/09/16 09:00 01/08/17 08:59 12/10/16 09:12 Aspirin (Ecotrin) 81 mg DAILY ORAL 12/09/16 09:00 01/08/17 08:59 12/10/16 09:11 Cefepime HCl/ Dextrose (Maxipime/D5W) 55 ml @ 110 mls/hr Q24H IV 12/09/16 06:00 12/16/16 05:59 12/10/16 05:48 Clonidine HCl (Catapres) 0.1 mg EVERY 6 HOURS PRN ORAL SBP>160 12/08/16 22:15 01/07/17 22:14 12/08/16 23:21 Dextrose STAT PRN IV Hypoglycemia 12/09/16 05:45 01/08/17 05:44 Diphenhydramine HCl (Benadryl) 25 mg Q6H PRN IVP Itching 12/08/16 22:45 01/07/17 22:44 Donepezil HCl (Aricept) 10 mg DAILY ORAL 12/09/16 09:00 01/08/17 08:59 12/10/16 09:11 Heparin Sodium (Porcine) (Heparin 5000 units/ml) 5,000 units EVERY 12 HOURS SUBQ 12/09/16 09:00 01/08/17 08:59 12/09/16 21:59 Insulin Aspart (NovoLOG) BEFORE MEALS AND HS SUBQ 12/09/16 06:30 01/08/17 06:29 12/10/16 16:51 Levothyroxine Sodium (Synthroid) 25 mcg ACBREAKFAST ORAL 12/09/16 06:30 01/08/17 06:29 12/10/16 05:47 Lorazepam (Ativan 2mg/ml 1ml) 0.5 mg Q4H PRN IV For Anxiety 12/09/16 05:45 12/16/16 05:44 Memantine (Namenda) 10 mg DAILY ORAL 12/09/16 09:00 01/08/17 08:59 12/10/16 09:11 Nebivolol (Bystolic) 5 mg DAILY ORAL 12/09/16 09:00 01/08/17 08:59 12/10/16 09:11 Nystatin (Nystop Powder) 1 applic THREE TIMES A DAY TOPIC 12/09/16 13:00 01/08/17 12:59 12/10/16 11:35 Ondansetron HCl (Zofran) 4 mg Q6H PRN IVP Nausea & Vomiting 12/09/16 05:45 01/08/17 05:44 Polyethylene Glycol (Miralax) 17 gm HSPRN PRN ORAL Constipation 12/09/16 05:45 01/08/17 05:44 Vancomycin HCl 1 ea 1 ea DAILY PRN MISC Per rx protocol 12/09/16 05:45 01/08/17 05:44 Vancomycin HCl/ Dextrose (Vancomycin/D5W) 275 ml @ 183.708 mls/hr Q24H IVPB 12/09/16 21:00 12/14/16 20:59 12/09/16 21:52 Zolpidem Tartrate (Ambien) 5 mg HSPRN PRN ORAL Insomnia 12/09/16 05:45 01/08/17 05:44 SHYAM NAVA Dec 10, 2016 17:27
--- NOTE | 2016-12-10 18:22 | Infectious Diseases Prog Note ---
Assessment/Plan Assessment/Plan ASSESSMENT: 76 y/o female with: // Right medial ankle cellulitis, suspect osteomyelitis, hardware infection - 3P bone scan: 3 phase increased activity in region of distal aspect of right fibula compatible with hardware loosening and/or osteomyelitis - XR: surgical hardware seen reducing old healed distal fibular and medial malleolar fractures. No acute fractures. No dislocations. Bones are demineralized. - elevated ESR, CRP - h/o right ankle ORIF // Winter intertrigo // Afebrile without leukocytosis // Dementia // DM // h/o CAD // No ABX allergies // Full Code PLAN: - continue empiric IV vancomycin, cefepime d# 2. Unlikely curable without hardware removal - f/u cultures - monitor CBC, temperatures - monitor BMP - wound care Subjective Allergies: Coded Allergies: MORPHINE (Verified Adverse Reaction, Severe, PARADOXICAL REACTION, 10/08/12 ) Subjective remains afebrile. comfortable BS noted Objective Vital Signs Last 24 Hour Vital Signs Date Time Temp Pulse Resp B/P Pulse Ox O2 Delivery O2 Flow Rate FiO2 12/10/16 16:00 96.6 64 19 153/70 96 Room Air 12/10/16 12:12 98.2 65 20 130/85 95 Room Air 12/10/16 09:12 62 134/93 12/10/16 08:30 98.4 62 20 134/93 95 Room Air 12/10/16 04:00 98.2 61 18 134/64 93 Room Air 12/10/16 00:00 97.8 61 19 138/58 93 Room Air 12/09/16 20:00 99.9 65 20 151/74 92 Room Air Height (Feet): 5 Height (Inches): 0.00 Weight (Pounds): 160 General Appearance: no acute distress Respiratory/Chest: no respiratory distress Cardiovascular: normal rate, regular rhythm Abdomen: normal bowel sounds, soft, non tender, non distended Microbiology Date/Time Source Procedure Growth Status 12/08/16 19:20 Blood Blood Culture - Preliminary NO GROWTH AFTER 24 HOURS Resulted 12/08/16 19:20 Blood Blood Culture - Preliminary NO GROWTH AFTER 24 HOURS Resulted Laboratory Tests Test 12/10/16 05:55 White Blood Count 6.9 K/UL (4.8-10.8) Red Blood Count 3.59 M/UL (4.20-5.40) L Hemoglobin 11.2 G/DL (12.0-16.0) L Hematocrit 31.8 % (37.0-47.0) L Mean Corpuscular Volume 89 FL (80-99) Mean Corpuscular Hemoglobin 31.1 PG (27.0-31.0) H Mean Corpuscular Hemoglobin Concent 35.1 G/DL (32.0-36.0) Red Cell Distribution Width 12.7 % (11.6-14.8) Platelet Count 145 K/UL (150-450) L Mean Platelet Volume 7.2 FL (6.5-10.1) Neutrophils (%) (Auto) 64.9 % (45.0-75.0) Lymphocytes (%) (Auto) 21.7 % (20.0-45.0) Monocytes (%) (Auto) 8.2 % (1.0-10.0) Eosinophils (%) (Auto) 4.4 % (0.0-3.0) H Basophils (%) (Auto) 0.9 % (0.0-2.0) Erythrocyte Sedimentation Rate 79 MM/HR (0-30) H Sodium Level 142 mEQ/L (135-145) Potassium Level 4.7 mEQ/L (3.4-4.9) Chloride Level 105 mEQ/L (98-107) Carbon Dioxide Level 24 mEQ/L (20-30) Anion Gap 13 (5-15) Blood Urea Nitrogen 24 mg/dL (7-23) H Creatinine 1.4 mg/dL (0.5-0.9) H Estimat Glomerular Filtration Rate mL/min (>60) Glucose Level 139 mg/dL (74-106) #H Hemoglobin A1c 6.7 % (< 6.0) H Calcium Level 9.0 mg/dL (8.6-10.2) Total Bilirubin 0.2 mg/dL (0.0-1.2) Aspartate Amino Transf (AST/SGOT) 11 U/L (5-40) Alanine Aminotransferase (ALT/SGPT) 7 U/L (3-33) Alkaline Phosphatase 66 U/L (35-104) C-Reactive Protein, Quantitative 1.2 mg/dL (< 0.5) H Total Protein 5.4 g/dL (6.6-8.7) L Albumin 2.9 g/dL (3.5-5.2) L Globulin 2.5 g/dL Albumin/Globulin Ratio 1.1 (1.0-2.7) Triglycerides Level 218 mg/dL (< 150) H Cholesterol Level 124 mg/dL (< 200) LDL Cholesterol 46 mg/dL (60-99) L HDL Cholesterol 34 mg/dL (> 60) Cholesterol/HDL Ratio 3.6 (3.3-4.4) Thyroid Stimulating Hormone (TSH) 2.700 uIU/mL (0.300-4.500) Current Medications Medications (Trade) Dose Ordered Sig/Rina Route PRN Reason Start Time Stop Time Status Last Admin Dose Admin Acetaminophen (Tylenol) 650 mg Q4H PRN ORAL fever 12/09/16 05:45 01/08/17 05:44 Al Hydroxide/Mg Hydroxide (Mylanta II) 30 ml Q6H PRN ORAL dyspepsia 12/09/16 05:45 01/08/17 05:44 Amlodipine Besylate (Norvasc) 2.5 mg DAILY ORAL 12/09/16 09:00 01/08/17 08:59 12/10/16 09:12 Aspirin (Ecotrin) 81 mg DAILY ORAL 12/09/16 09:00 01/08/17 08:59 12/10/16 09:11 Cefepime HCl/ Dextrose (Maxipime/D5W) 55 ml @ 110 mls/hr Q24H IV 12/09/16 06:00 12/16/16 05:59 12/10/16 05:48 Clonidine HCl (Catapres) 0.1 mg EVERY 6 HOURS PRN ORAL SBP>160 12/08/16 22:15 01/07/17 22:14 12/08/16 23:21 Dextrose STAT PRN IV Hypoglycemia 12/09/16 05:45 01/08/17 05:44 Diphenhydramine HCl (Benadryl) 25 mg Q6H PRN IVP Itching 12/08/16 22:45 01/07/17 22:44 Donepezil HCl (Aricept) 10 mg DAILY ORAL 12/09/16 09:00 01/08/17 08:59 12/10/16 09:11 Heparin Sodium (Porcine) (Heparin 5000 units/ml) 5,000 units EVERY 12 HOURS SUBQ 12/09/16 09:00 01/08/17 08:59 12/09/16 21:59 Insulin Aspart (NovoLOG) BEFORE MEALS AND HS SUBQ 12/09/16 06:30 01/08/17 06:29 12/10/16 16:51 Levothyroxine Sodium (Synthroid) 25 mcg ACBREAKFAST ORAL 12/09/16 06:30 01/08/17 06:29 12/10/16 05:47 Lorazepam (Ativan 2mg/ml 1ml) 0.5 mg Q4H PRN IV For Anxiety 12/09/16 05:45 12/16/16 05:44 Memantine (Namenda) 10 mg DAILY ORAL 12/09/16 09:00 01/08/17 08:59 12/10/16 09:11 Nebivolol (Bystolic) 5 mg DAILY ORAL 12/09/16 09:00 01/08/17 08:59 12/10/16 09:11 Nystatin (Nystop Powder) 1 applic THREE TIMES A DAY TOPIC 12/09/16 13:00 01/08/17 12:59 12/10/16 18:10 Ondansetron HCl (Zofran) 4 mg Q6H PRN IVP Nausea & Vomiting 12/09/16 05:45 01/08/17 05:44 Polyethylene Glycol (Miralax) 17 gm HSPRN PRN ORAL Constipation 12/09/16 05:45 01/08/17 05:44 Vancomycin HCl 1 ea 1 ea DAILY PRN MISC Per rx protocol 12/09/16 05:45 01/08/17 05:44 Vancomycin HCl/ Dextrose (Vancomycin/D5W) 275 ml @ 183.708 mls/hr Q24H IVPB 12/09/16 21:00 12/14/16 20:59 12/09/16 21:52 Zolpidem Tartrate (Ambien) 5 mg HSPRN PRN ORAL Insomnia 12/09/16 05:45 01/08/17 05:44 WENDY CHAPMAN Dec 10, 2016 18:22
[2016-12-10 20:00] VITALS: BP 158/71
[2016-12-10] MEDS: Vancomycin 750mg/D5W 275ml IVPB SCH ×2 (20:52)
[2016-12-11] VITALS: BP 154/67
[2016-12-11 04:00] VITALS: BP 152/80
[2016-12-11] MEDS: Cefepime HCl 1 GM in D5W 55 ML IV SCH (05:34)
[2016-12-11] MEDS: Levothyroxine 25mcg tab ORAL SCH (05:36)
[2016-12-11] MEDS: NovoLOG Insulin Flexpen SUBQ SCH ×4 (05:36→21:04)
[2016-12-11 08:00] VITALS: BP 146/67
[2016-12-11] MEDS: Donepezil 10mg tab ORAL SCH (08:16)
[2016-12-11] MEDS: Memantine 10mg tab ORAL SCH (08:16)
[2016-12-11] MEDS: Aspirin EC 81mg tab ORAL SCH (08:16)
[2016-12-11] MEDS: Bystolic 2.5mg Tab ORAL SCH (08:16)
[2016-12-11] MEDS: Heparin 5000 units/ml inj SUBQ SCH ×2 (08:17→21:00)
[2016-12-11] MEDS: Nystatin Powder 100,000 units/gm 15gm TOPIC SCH ×3 (08:19→18:34)
[2016-12-11 12:00] VITALS: BP 157/72
[2016-12-11 16:00] VITALS: BP 157/69
--- NOTE | 2016-12-11 16:49 | Podiatric Progress Note ---
Assessment/Plan Patient Chelsie Rolon is a 76 year old female who was admitted on Dec 08, 2016 at 19:02 with right lateral ankle cellulitis Problems: (1) Osteomyelitis of ankle or foot, right, acute (2) Cellulitis in diabetic foot (3) Diabetes mellitus Assessment/Plan Right lateral ankle cellulitis. History of right ankle fracture and ORIF. Currently there is a wound present with exposed hardware. Bone scan positive for osteomyelitis - Plan is for hardware removal on Thursday12/15/16 - Continue current wound care - Use offloading heel protectors - Antibiotics per infectious disease specialist recommendations Subjective Reason for consult Right lateral ankle cellulitis Allergies: Coded Allergies: MORPHINE (Verified Adverse Reaction, Severe, PARADOXICAL REACTION, 10/08/12 ) Subjective Patient states no nausea, vomiting, fevers, or chills. She does not recall when the original right ankle surgery was performed. Objective Exam Last 24 Hour Vital Signs Date Time Temp Pulse Resp B/P Pulse Ox O2 Delivery O2 Flow Rate FiO2 12/11/16 16:00 97.7 69 18 157/69 97 Room Air 12/11/16 12:00 97.7 69 20 157/72 97 Room Air 12/11/16 08:16 63 146/67 12/11/16 08:00 97.7 62 19 146/67 93 Room Air 12/11/16 04:00 97.0 63 18 152/80 93 Room Air 12/11/16 00:00 97.7 68 19 154/67 96 Room Air 12/10/16 20:00 96.7 69 19 158/71 91 Room Air Laboratory Tests Test 12/10/16 20:09 Vancomycin Level Trough 12.9 ug/mL (5.0-12.0) H Microbiology Date/Time Source Procedure Growth Status 12/08/16 19:20 Blood Blood Culture - Preliminary NO GROWTH AFTER 48 HOURS Resulted 12/08/16 21:40 Nasal Nares MRSA Culture - Final NO METHICILLIN RESISTANT STAPH AUREUS... Complete 12/08/16 21:40 Rectum VRE Culture - Final NO VANCOMYCIN RESISTANT ENTEROCOCCUS ... Complete Exam Narrative Right lateral ankle with 1cm x 1cm x 0.5cm ulcer. Hardware (screw) is exposed through the wound. No purulence or malodor noted. Macerated edges of the wound with mild serous drainage. Surrounding erythema present BONE SCAN (2/9/17): Impression: Right lower extremity hyperemia. 3 phase increased activity in region of distal aspect of right fibula compatible with hardware loosening and/or osteomyelitis. Dermatological Wound Assessment : Exudate Amount: None Pedrito Siddiqui DPM Dec 11, 2016 16:49
--- NOTE | 2016-12-11 18:10 | Infectious Diseases Prog Note ---
Assessment/Plan Assessment/Plan ASSESSMENT: 76 y/o female with: // Right medial ankle cellulitis / osteomyelitis / hardware infection - plan hardware removal 12/15 - 3P bone scan: 3 phase increased activity in region of distal aspect of right fibula compatible with hardware loosening and/or osteomyelitis - XR: surgical hardware seen reducing old healed distal fibular and medial malleolar fractures. No acute fractures. No dislocations. Bones are demineralized. - elevated ESR, CRP - h/o right ankle ORIF // Winter intertrigo // Afebrile without leukocytosis // Dementia // DM // h/o CAD // No ABX allergies // Full Code PLAN: - continue empiric IV vancomycin, cefepime d# 3 ( will need 6 weeks IV ABX from date of HWR ) - hardware removal 12/15 per podiatry - f/u cultures - monitor CBC, temperatures - monitor BMP - wound care received call from family, sarahy and I left return message Subjective Allergies: Coded Allergies: MORPHINE (Verified Adverse Reaction, Severe, PARADOXICAL REACTION, 10/08/12 ) Subjective remains afebrile. comfortable surgery planned Objective Vital Signs Last 24 Hour Vital Signs Date Time Temp Pulse Resp B/P Pulse Ox O2 Delivery O2 Flow Rate FiO2 12/11/16 16:00 97.7 69 18 157/69 97 Room Air 12/11/16 12:00 97.7 69 20 157/72 97 Room Air 12/11/16 08:16 63 146/67 12/11/16 08:00 97.7 62 19 146/67 93 Room Air 12/11/16 04:00 97.0 63 18 152/80 93 Room Air 12/11/16 00:00 97.7 68 19 154/67 96 Room Air 12/10/16 20:00 96.7 69 19 158/71 91 Room Air Height (Feet): 5 Height (Inches): 0.00 Weight (Pounds): 160 General Appearance: no acute distress Respiratory/Chest: no respiratory distress Cardiovascular: normal rate, regular rhythm Abdomen: normal bowel sounds, soft, non tender, non distended Microbiology Date/Time Source Procedure Growth Status 12/08/16 19:20 Blood Blood Culture - Preliminary NO GROWTH AFTER 48 HOURS Resulted 12/08/16 19:20 Blood Blood Culture - Preliminary NO GROWTH AFTER 48 HOURS Resulted 12/08/16 21:40 Nasal Nares MRSA Culture - Final NO METHICILLIN RESISTANT STAPH AUREUS... Complete 12/08/16 21:40 Rectum VRE Culture - Final NO VANCOMYCIN RESISTANT ENTEROCOCCUS ... Complete Laboratory Tests Test 12/10/16 20:09 Vancomycin Level Trough 12.9 ug/mL (5.0-12.0) H Current Medications Medications (Trade) Dose Ordered Sig/Rina Route PRN Reason Start Time Stop Time Status Last Admin Dose Admin Acetaminophen (Tylenol) 650 mg Q4H PRN ORAL fever 12/09/16 05:45 01/08/17 05:44 Al Hydroxide/Mg Hydroxide (Mylanta II) 30 ml Q6H PRN ORAL dyspepsia 12/09/16 05:45 01/08/17 05:44 Amlodipine Besylate (Norvasc) 2.5 mg DAILY ORAL 12/09/16 09:00 01/08/17 08:59 12/11/16 08:16 Aspirin (Ecotrin) 81 mg DAILY ORAL 12/09/16 09:00 01/08/17 08:59 12/11/16 08:16 Cefepime HCl/ Dextrose (Maxipime/D5W) 55 ml @ 110 mls/hr Q24H IV 12/09/16 06:00 12/16/16 05:59 12/11/16 05:34 Clonidine HCl (Catapres) 0.1 mg EVERY 6 HOURS PRN ORAL SBP>160 12/08/16 22:15 01/07/17 22:14 12/08/16 23:21 Dextrose STAT PRN IV Hypoglycemia 12/09/16 05:45 01/08/17 05:44 Diphenhydramine HCl (Benadryl) 25 mg Q6H PRN IVP Itching 12/08/16 22:45 01/07/17 22:44 Donepezil HCl (Aricept) 10 mg DAILY ORAL 12/09/16 09:00 01/08/17 08:59 12/11/16 08:16 Heparin Sodium (Porcine) (Heparin 5000 units/ml) 5,000 units EVERY 12 HOURS SUBQ 12/09/16 09:00 01/08/17 08:59 12/09/16 21:59 Insulin Aspart (NovoLOG) BEFORE MEALS AND HS SUBQ 12/09/16 06:30 01/08/17 06:29 12/11/16 16:58 Levothyroxine Sodium (Synthroid) 25 mcg ACBREAKFAST ORAL 12/09/16 06:30 01/08/17 06:29 12/11/16 05:36 Lorazepam (Ativan 2mg/ml 1ml) 0.5 mg Q4H PRN IV For Anxiety 12/09/16 05:45 12/16/16 05:44 Memantine (Namenda) 10 mg DAILY ORAL 12/09/16 09:00 01/08/17 08:59 12/11/16 08:16 Nebivolol (Bystolic) 5 mg DAILY ORAL 12/09/16 09:00 01/08/17 08:59 12/11/16 08:16 Nystatin (Nystop Powder) 1 applic THREE TIMES A DAY TOPIC 12/09/16 13:00 01/08/17 12:59 12/11/16 11:48 Ondansetron HCl (Zofran) 4 mg Q6H PRN IVP Nausea & Vomiting 12/09/16 05:45 01/08/17 05:44 Polyethylene Glycol (Miralax) 17 gm HSPRN PRN ORAL Constipation 12/09/16 05:45 01/08/17 05:44 Vancomycin HCl 1 ea 1 ea DAILY PRN MISC Per rx protocol 12/09/16 05:45 01/08/17 05:44 Vancomycin HCl/ Dextrose (Vancomycin/D5W) 275 ml @ 183.708 mls/hr Q24H IVPB 12/09/16 21:00 12/14/16 20:59 12/10/16 20:52 Zolpidem Tartrate (Ambien) 5 mg HSPRN PRN ORAL Insomnia 12/09/16 05:45 01/08/17 05:44 WENDY CHAPMAN Dec 11, 2016 18:09
[2016-12-11 20:10] VITALS: BP 153/75
[2016-12-11] MEDS: Vancomycin 750mg/D5W 275ml IVPB SCH ×2 (21:02)
--- NOTE | 2016-12-11 23:28 | Pulmonology Progress Note ---
Assessment/Plan Problems: (1) Cellulitis in diabetic foot (2) Decubitus ulcer (3) Dementia (4) Diabetes mellitus Assessment/Plan wound care iv antibioitcs f/u electrolytes f/u by podiatry Subjective ROS Limited/Unobtainable: Yes Constitutional: Reports: anorexia, fatigue Skin: Reports: rash, ulcer Musculoskeletal: Reports: pain, stiffness, swelling Allergies: Coded Allergies: MORPHINE (Verified Adverse Reaction, Severe, PARADOXICAL REACTION, 10/08/12 ) Objective Last 24 Hour Vital Signs Date Time Temp Pulse Resp B/P Pulse Ox O2 Delivery O2 Flow Rate FiO2 12/11/16 20:10 98.2 72 19 153/75 97 Room Air 12/11/16 16:00 97.7 69 18 157/69 97 Room Air 12/11/16 12:00 97.7 69 20 157/72 97 Room Air 12/11/16 08:16 63 146/67 12/11/16 08:00 97.7 62 19 146/67 93 Room Air 12/11/16 04:00 97.0 63 18 152/80 93 Room Air 12/11/16 00:00 97.7 68 19 154/67 96 Room Air Intake and Output 12/10/16 12/11/16 19:00 07:00 Intake Total 450 ml 415 ml Output Total 1000 ml 800 ml Balance -550 ml -385 ml Intake Oral 450 ml 360 ml IV Total 55 ml Output Urine Total 1000 ml 800 ml General Appearance: no acute distress HEENT: normocephalic, atraumatic, PERRL Respiratory/Chest: chest wall non-tender, decreased breath sounds, accessory muscle use Breasts: no masses Cardiovascular: normal peripheral pulses, normal rate, regular rhythm, no JVD Abdomen: normal bowel sounds, soft, non tender, no organomegaly Genitourinary: normal external genitalia Extremities: other - diabetic foot ulcer probable osteomylitis involvement Skin: rash, lesions, ulcers 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: 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 II-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 grossly normal, responsive, disoriented Current Medications Medications (Trade) Dose Ordered Sig/Rina Route PRN Reason Start Time Stop Time Status Last Admin Dose Admin Acetaminophen (Tylenol) 650 mg Q4H PRN ORAL fever 12/09/16 05:45 01/08/17 05:44 Al Hydroxide/Mg Hydroxide (Mylanta II) 30 ml Q6H PRN ORAL dyspepsia 12/09/16 05:45 01/08/17 05:44 Amlodipine Besylate (Norvasc) 2.5 mg DAILY ORAL 12/09/16 09:00 01/08/17 08:59 12/11/16 08:16 Aspirin (Ecotrin) 81 mg DAILY ORAL 12/09/16 09:00 01/08/17 08:59 12/11/16 08:16 Cefepime HCl/ Dextrose (Maxipime/D5W) 55 ml @ 110 mls/hr Q24H IV 12/09/16 06:00 12/16/16 05:59 12/11/16 05:34 Clonidine HCl (Catapres) 0.1 mg EVERY 6 HOURS PRN ORAL SBP>160 12/08/16 22:15 01/07/17 22:14 12/08/16 23:21 Dextrose STAT PRN IV Hypoglycemia 12/09/16 05:45 01/08/17 05:44 Diphenhydramine HCl (Benadryl) 25 mg Q6H PRN IVP Itching 12/08/16 22:45 01/07/17 22:44 Donepezil HCl (Aricept) 10 mg DAILY ORAL 12/09/16 09:00 01/08/17 08:59 12/11/16 08:16 Heparin Sodium (Porcine) (Heparin 5000 units/ml) 5,000 units EVERY 12 HOURS SUBQ 12/09/16 09:00 01/08/17 08:59 12/09/16 21:59 Insulin Aspart (NovoLOG) BEFORE MEALS AND HS SUBQ 12/09/16 06:30 01/08/17 06:29 12/11/16 21:04 Levothyroxine Sodium (Synthroid) 25 mcg ACBREAKFAST ORAL 12/09/16 06:30 01/08/17 06:29 12/11/16 05:36 Lorazepam (Ativan 2mg/ml 1ml) 0.5 mg Q4H PRN IV For Anxiety 12/09/16 05:45 12/16/16 05:44 Memantine (Namenda) 10 mg DAILY ORAL 12/09/16 09:00 01/08/17 08:59 12/11/16 08:16 Nebivolol (Bystolic) 5 mg DAILY ORAL 12/09/16 09:00 01/08/17 08:59 12/11/16 08:16 Nystatin (Nystop Powder) 1 applic THREE TIMES A DAY TOPIC 12/09/16 13:00 01/08/17 12:59 12/11/16 18:34 Ondansetron HCl (Zofran) 4 mg Q6H PRN IVP Nausea & Vomiting 12/09/16 05:45 01/08/17 05:44 Polyethylene Glycol (Miralax) 17 gm HSPRN PRN ORAL Constipation 12/09/16 05:45 01/08/17 05:44 Vancomycin HCl 1 ea 1 ea DAILY PRN MISC Per rx protocol 12/09/16 05:45 01/08/17 05:44 Vancomycin HCl/ Dextrose (Vancomycin/D5W) 275 ml @ 183.708 mls/hr Q24H IVPB 12/09/16 21:00 12/14/16 20:59 12/11/16 21:02 Zolpidem Tartrate (Ambien) 5 mg HSPRN PRN ORAL Insomnia 12/09/16 05:45 01/08/17 05:44 SHYAM NAVA Dec 11, 2016 23:28
[2016-12-12] VITALS: BP 114/57
[2016-12-12 04:00] VITALS: BP 163/72
[2016-12-12] MEDS: Cefepime HCl 1 GM in D5W 55 ML IV SCH (06:16)
[2016-12-12] MEDS: NovoLOG Insulin Flexpen SUBQ SCH ×4 (06:16→20:52)
[2016-12-12] MEDS: Levothyroxine 25mcg tab ORAL SCH (06:17)
[2016-12-12 08:00] VITALS: BP 140/66
[2016-12-12] MEDS: Heparin 5000 units/ml inj SUBQ SCH ×2 (09:00→20:47)
[2016-12-12] MEDS: Aspirin EC 81mg tab ORAL SCH (10:03)
[2016-12-12] MEDS: Donepezil 10mg tab ORAL SCH (10:04)
[2016-12-12] MEDS: Bystolic 2.5mg Tab ORAL SCH (10:04)
[2016-12-12] MEDS: Memantine 10mg tab ORAL SCH (10:04)
[2016-12-12] MEDS: Nystatin Powder 100,000 units/gm 15gm TOPIC SCH ×3 (10:05→16:48)
[2016-12-12 12:00] VITALS: BP 130/64
--- NOTE | 2016-12-12 13:32 | Anethesia Preoperative Eval ---
Anesthesia Pre-op PMH/ROS General Date of Evaluation: Dec 12, 2016 Time of Evaluation: 12:49 Anesthesiologist: Arsen ASA Score: ASA 4 Mallampati Score Class I : Soft palate, uvula, fauces, pillars visible Class II: Soft palate, uvula, fauces visible Class III: Soft palate, base of uvula visible Class IV: Only hard plate visible Mallampati Classification: Class III Surgeon: Artur Diagnosis: Infected R Foot Surgical Procedure: R Ankle Hradware Removal with Bone BX Anesthesia History: none Family History: no anesthesia problems Allergies: Coded Allergies: MORPHINE (Verified Adverse Reaction, Severe, PARADOXICAL REACTION, 10/08/12 ) Medications: see eMAR Past Medical History Cardiovascular: Reports: CAD - Cornary Stents, HTN Gastrointestinal/Genitourinary: Reports: GERD 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: Reports: dementia - Alzheimers, depression/anxiety Endocrine: Reports: DM HEENT: Reports: cataract (L), cataract (R), glaucoma Hematology/Immune: Reports: anemia Musculoskeletal/Integumentary: Reports: DJD PSxH Narrative: R Ankle Fx, ORIF, Cholecystectomy Anesthesia Pre-op Phys. Exam Physician Exam Last Vital Signs Date Time Temp Pulse Resp B/P Pulse Ox O2 Delivery O2 Flow Rate FiO2 12/12/16 12:00 97.6 65 19 130/64 97 Room Air Constitutional: NAD Neurologic: CN 2-12 intact Cardiovascular: RRR Respiratory: CTA Gastrointestinal: S/NT/ND Airway Exam Mallampati Score: Class III MO: limited ROM: limited Teeth: missing, intact Anesthesia Pre-op A/P Risk Assessment & Plan Assessment: ASA 4 Plan: GA Status Change Before Surgery: No Pre-Antibiotics Drug: James Barton MD Dec 12, 2016 13:32
[2016-12-12 16:00] VITALS: BP 154/88
[2016-12-12] MEDS ORDERED: Ketotifen Fumarate 0.035% 5ml BOTH EYES SCH (16:00)
--- NOTE | 2016-12-12 16:00 | Infectious Diseases Prog Note ---
Assessment/Plan Assessment/Plan ASSESSMENT: 76 y/o female with: // Right medial ankle cellulitis / osteomyelitis / hardware infection - plan hardware removal 12/15 - 3P bone scan: 3 phase increased activity in region of distal aspect of right fibula compatible with hardware loosening and/or osteomyelitis - XR: surgical hardware seen reducing old healed distal fibular and medial malleolar fractures. No acute fractures. No dislocations. Bones are demineralized. - elevated ESR, CRP - h/o right ankle ORIF // Winter intertrigo // Afebrile without leukocytosis // Dementia // DM // h/o CAD // No ABX allergies // Full Code PLAN: - continue empiric IV vancomycin, cefepime d# 4 ( will need 6 weeks IV ABX from date of HWR ) - hardware removal 12/15 per podiatry - f/u cultures - monitor CBC, temperatures - monitor BMP - wound care Subjective Allergies: Coded Allergies: MORPHINE (Verified Adverse Reaction, Severe, PARADOXICAL REACTION, 10/08/12 ) Subjective remains afebrile. comfortable surgery planned Objective Vital Signs Last 24 Hour Vital Signs Date Time Temp Pulse Resp B/P Pulse Ox O2 Delivery O2 Flow Rate FiO2 12/12/16 12:00 97.6 65 19 130/64 97 Room Air 12/12/16 10:04 64 140/66 12/12/16 08:00 97.9 64 18 140/66 92 Room Air 12/12/16 04:00 97.9 63 18 163/72 95 Room Air 12/12/16 00:00 98.2 63 18 114/57 91 Room Air 12/11/16 20:10 98.2 72 19 153/75 97 Room Air 12/11/16 16:00 97.7 69 18 157/69 97 Room Air Height (Feet): 5 Height (Inches): 0.00 Weight (Pounds): 160 General Appearance: no acute distress Respiratory/Chest: no respiratory distress Cardiovascular: normal rate, regular rhythm Abdomen: normal bowel sounds, soft, non tender, non distended Current Medications Medications (Trade) Dose Ordered Sig/Rina Route PRN Reason Start Time Stop Time Status Last Admin Dose Admin Acetaminophen (Tylenol) 650 mg Q4H PRN ORAL fever 12/09/16 05:45 01/08/17 05:44 Al Hydroxide/Mg Hydroxide (Mylanta II) 30 ml Q6H PRN ORAL dyspepsia 12/09/16 05:45 01/08/17 05:44 Amlodipine Besylate (Norvasc) 2.5 mg DAILY ORAL 12/09/16 09:00 01/08/17 08:59 12/12/16 10:04 Aspirin (Ecotrin) 81 mg DAILY ORAL 12/09/16 09:00 01/08/17 08:59 12/12/16 10:03 Cefepime HCl/ Dextrose (Maxipime/D5W) 55 ml @ 110 mls/hr Q24H IV 12/09/16 06:00 12/16/16 05:59 12/12/16 06:16 Clonidine HCl (Catapres) 0.1 mg EVERY 6 HOURS PRN ORAL SBP>160 12/08/16 22:15 01/07/17 22:14 12/08/16 23:21 Dextrose STAT PRN IV Hypoglycemia 12/09/16 05:45 01/08/17 05:44 Diphenhydramine HCl (Benadryl) 25 mg Q6H PRN IVP Itching 12/08/16 22:45 01/07/17 22:44 Donepezil HCl (Aricept) 10 mg DAILY ORAL 12/09/16 09:00 01/08/17 08:59 12/12/16 10:04 Heparin Sodium (Porcine) (Heparin 5000 units/ml) 5,000 units EVERY 12 HOURS SUBQ 12/09/16 09:00 01/08/17 08:59 12/09/16 21:59 Insulin Aspart (NovoLOG) BEFORE MEALS AND HS SUBQ 12/09/16 06:30 01/08/17 06:29 12/12/16 11:58 Levothyroxine Sodium (Synthroid) 25 mcg ACBREAKFAST ORAL 12/09/16 06:30 01/08/17 06:29 12/12/16 06:17 Lorazepam (Ativan 2mg/ml 1ml) 0.5 mg Q4H PRN IV For Anxiety 12/09/16 05:45 12/16/16 05:44 Memantine (Namenda) 10 mg DAILY ORAL 12/09/16 09:00 01/08/17 08:59 12/12/16 10:04 Nebivolol (Bystolic) 5 mg DAILY ORAL 12/09/16 09:00 3/9/17 08:59 12/12/16 10:04 Nystatin (Nystop Powder) 1 applic THREE TIMES A DAY TOPIC 12/09/16 13:00 01/08/17 12:59 12/12/16 11:58 Ondansetron HCl (Zofran) 4 mg Q6H PRN IVP Nausea & Vomiting 12/09/16 05:45 01/08/17 05:44 Patient Own Medication (Patient's Own Med) 1 ea DAILY BOTH EYES 12/13/16 09:00 01/12/17 08:59 Polyethylene Glycol (Miralax) 17 gm HSPRN PRN ORAL Constipation 12/09/16 05:45 01/08/17 05:44 Vancomycin HCl 1 ea 1 ea DAILY PRN MISC Per rx protocol 12/09/16 05:45 01/08/17 05:44 Vancomycin HCl/ Dextrose (Vancomycin/D5W) 275 ml @ 183.708 mls/hr Q24H IVPB 12/09/16 21:00 12/14/16 20:59 12/11/16 21:02 Zolpidem Tartrate (Ambien) 5 mg HSPRN PRN ORAL Insomnia 12/09/16 05:45 01/08/17 05:44 WENDY CHAPMANb 10, 2017 16:00
[2016-12-12 19:00] VITALS: BP 143/68
[2016-12-12] MEDS ORDERED: Tubing IV Secondary IV ONE (19:35)
[2016-12-12] MEDS: Vancomycin 750mg/D5W 275ml IVPB SCH ×2 (22:00)
--- NOTE | 2016-12-13 00:03 | Pulmonology Progress Note ---
Assessment/Plan Problems: (1) Cellulitis in diabetic foot (2) Decubitus ulcer (3) Dementia (4) Diabetes mellitus Assessment/Plan wound care iv antibioitcs f/u electrolytes f/u by podiatry Subjective ROS Limited/Unobtainable: Yes Constitutional: Reports: anorexia, fatigue Neurologic: Reports: confusion, weakness Skin: Reports: rash, ulcer Allergies: Coded Allergies: MORPHINE (Verified Adverse Reaction, Severe, PARADOXICAL REACTION, 10/08/12 ) Objective Last 24 Hour Vital Signs Date Time Temp Pulse Resp B/P Pulse Ox O2 Delivery O2 Flow Rate FiO2 12/12/16 19:00 98.1 65 20 143/68 93 Room Air 12/12/16 16:00 97.3 65 20 154/88 96 Room Air 12/12/16 12:00 97.6 65 19 130/64 97 Room Air 12/12/16 10:04 64 140/66 12/12/16 08:00 97.9 64 18 140/66 92 Room Air 12/12/16 04:00 97.9 63 18 163/72 95 Room Air Intake and Output 12/12/16 12/13/16 19:00 07:00 Intake Total 900 ml 660 ml Output Total 475 ml 300 ml Balance 425 ml 360 ml Intake Oral 900 ml 660 ml Output Urine Total 475 ml 300 ml General Appearance: no acute distress HEENT: normocephalic, atraumatic, PERRL Respiratory/Chest: chest wall non-tender, lungs clear, normal breath sounds Breasts: no masses Cardiovascular: normal peripheral pulses, normal rate, regular rhythm, no JVD Abdomen: normal bowel sounds, soft, non tender, no organomegaly Skin: rash, lesions, ulcers 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, 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, 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 Current Medications Medications (Trade) Dose Ordered Sig/Rina Route PRN Reason Start Time Stop Time Status Last Admin Dose Admin Acetaminophen (Tylenol) 650 mg Q4H PRN ORAL fever 12/09/16 05:45 01/08/17 05:44 Al Hydroxide/Mg Hydroxide (Mylanta II) 30 ml Q6H PRN ORAL dyspepsia 12/09/16 05:45 01/08/17 05:44 Amlodipine Besylate (Norvasc) 2.5 mg DAILY ORAL 12/09/16 09:00 01/08/17 08:59 12/12/16 10:04 Aspirin (Ecotrin) 81 mg DAILY ORAL 12/09/16 09:00 01/08/17 08:59 12/12/16 10:03 Cefepime HCl/ Dextrose (Maxipime/D5W) 55 ml @ 110 mls/hr Q24H IV 12/09/16 06:00 12/16/16 05:59 12/12/16 06:16 Clonidine HCl (Catapres) 0.1 mg EVERY 6 HOURS PRN ORAL SBP>160 12/08/16 22:15 01/07/17 22:14 12/08/16 23:21 Dextrose STAT PRN IV Hypoglycemia 12/09/16 05:45 01/08/17 05:44 Diphenhydramine HCl (Benadryl) 25 mg Q6H PRN IVP Itching 12/08/16 22:45 01/07/17 22:44 12/12/16 19:39 Donepezil HCl (Aricept) 10 mg DAILY ORAL 12/09/16 09:00 01/08/17 08:59 12/12/16 10:04 Heparin Sodium (Porcine) (Heparin 5000 units/ml) 5,000 units EVERY 12 HOURS SUBQ 12/09/16 09:00 01/08/17 08:59 12/09/16 21:59 Insulin Aspart (NovoLOG) BEFORE MEALS AND HS SUBQ 12/09/16 06:30 01/08/17 06:29 12/12/16 20:52 Levothyroxine Sodium (Synthroid) 25 mcg ACBREAKFAST ORAL 12/09/16 06:30 01/08/17 06:29 12/12/16 06:17 Lorazepam (Ativan 2mg/ml 1ml) 0.5 mg Q4H PRN IV For Anxiety 12/09/16 05:45 12/16/16 05:44 12/12/16 19:51 Memantine (Namenda) 10 mg DAILY ORAL 12/09/16 09:00 01/08/17 08:59 12/12/16 10:04 Nebivolol (Bystolic) 5 mg DAILY ORAL 12/09/16 09:00 01/08/17 08:59 12/12/16 10:04 Nystatin (Nystop Powder) 1 applic THREE TIMES A DAY TOPIC 12/09/16 13:00 01/08/17 12:59 12/12/16 16:48 Ondansetron HCl (Zofran) 4 mg Q6H PRN IVP Nausea & Vomiting 12/09/16 05:45 01/08/17 05:44 Patient Own Medication (Patient's Own Med) 1 ea DAILY BOTH EYES 12/13/16 09:00 01/12/17 08:59 Polyethylene Glycol (Miralax) 17 gm HSPRN PRN ORAL Constipation 12/09/16 05:45 01/08/17 05:44 Quetiapine Fumarate (SEROquel) 25 mg BEDTIME ORAL 12/12/16 21:00 01/11/17 20:59 12/12/16 22:16 Sertraline HCl (Zoloft) 50 mg DAILY ORAL 12/13/16 09:00 01/12/17 08:59 Vancomycin HCl 1 ea 1 ea DAILY PRN MISC Per rx protocol 12/09/16 05:45 01/08/17 05:44 Vancomycin HCl/ Dextrose (Vancomycin/D5W) 275 ml @ 183.708 mls/hr Q24H IVPB 12/09/16 21:00 12/14/16 20:59 12/12/16 22:00 Zolpidem Tartrate (Ambien) 5 mg HSPRN PRN ORAL Insomnia 12/09/16 05:45 01/08/17 05:44 SHYAM NAVA Dec 13, 2016 00:03
[2016-12-13 00:12] VITALS: BP 137/77
[2016-12-13 04:07] VITALS: BP 138/73
[2016-12-13] MEDS: Cefepime HCl 1 GM in D5W 55 ML IV SCH (04:54)
[2016-12-13] MEDS: Levothyroxine 25mcg tab ORAL SCH (05:40)
[2016-12-13] MEDS: NovoLOG Insulin Flexpen SUBQ SCH ×4 (06:09→21:11)
[2016-12-13 08:04] VITALS: BP 148/71
--- NOTE | 2016-12-13 08:43 | Podiatric Progress Note ---
Assessment/Plan Patient Chelsie Rolon is a 76 year old female who was admitted on Dec 08, 2016 at 19:02 with right lateral malleolus ulcer and cellulitis Problems: (1) Ulcer of right ankle (2) Osteomyelitis of ankle or foot, right, acute (3) Complication of internal fixation device (4) Cellulitis in diabetic foot Assessment/Plan - Plan is for surgical intervention to remove infected hardware on 12/15/16 - Wound is currently macerated. Will perform dressing changes twice a day to improve maceration prior to surgery - Offload the area with heel protectors - Continue antibiotics per infectious disease specialist recommendations Subjective Reason for consult Right lateral malleolus ulcer with cellulitis Allergies: Coded Allergies: MORPHINE (Verified Adverse Reaction, Severe, PARADOXICAL REACTION, 10/08/12 ) Subjective Patient is sleepy but does not mention any pain, nausea, vomiting, fevers, or chills Objective Exam Last 24 Hour Vital Signs Date Time Temp Pulse Resp B/P Pulse Ox O2 Delivery O2 Flow Rate FiO2 12/13/16 08:04 97.3 69 18 148/71 96 Room Air 12/13/16 04:07 97.0 72 17 138/73 96 Room Air 12/13/16 00:12 98.1 69 18 137/77 93 Room Air 12/12/16 19:00 98.1 65 20 143/68 93 Room Air 12/12/16 16:00 97.3 65 20 154/88 96 Room Air 12/12/16 12:00 97.6 65 19 130/64 97 Room Air 12/12/16 10:04 64 140/66 Microbiology Date/Time Source Procedure Growth Status 12/08/16 19:20 Blood Blood Culture - Preliminary NO GROWTH AFTER 4 DAYS Resulted 12/08/16 21:40 Nasal Nares MRSA Culture - Final NO METHICILLIN RESISTANT STAPH AUREUS... Complete 12/08/16 21:40 Rectum VRE Culture - Final NO VANCOMYCIN RESISTANT ENTEROCOCCUS ... Complete Exam Narrative Right lateral malleolus ulcer with exposed hardware. Macerated edged. No purulence or malodor noted. Mild surrounding erythema BONE SCAN: Impression: Right lower extremity hyperemia. 3 phase increased activity in region of distal aspect of right fibula compatible with hardware loosening and/or osteomyelitis. Pedrito Siddiqui DPM Dec 13, 2016 08:43
[2016-12-13] MEDS: Heparin 5000 units/ml inj SUBQ SCH ×2 (09:00→21:10)
[2016-12-13] MEDS: Donepezil 10mg tab ORAL SCH (09:33)
[2016-12-13] MEDS: Bystolic 2.5mg Tab ORAL SCH (09:33)
[2016-12-13] MEDS: Aspirin EC 81mg tab ORAL SCH (09:33)
[2016-12-13] MEDS: Sertraline 50mg tab ORAL SCH (09:33)
[2016-12-13] MEDS: Memantine 10mg tab ORAL SCH (09:34)
[2016-12-13] MEDS: Nystatin Powder 100,000 units/gm 15gm TOPIC SCH ×3 (09:34→17:43)
[2016-12-13 11:19] VITALS: BP 142/69
[2016-12-13 12:32] LABS: EOSINOPHILS % (AUTO) 4.4 % (0.0-3.0); LYMPHOCYTES % (AUTO) 14.1 % (20.0-45.0); MEAN CORPUSCULAR HEMOGLOBIN 29.1 PG (27.0-31.0); MEAN CORPUSCULAR HGB CONC 32.5 G/DL (32.0-36.0); MEAN CORPUSCULAR VOLUME 90 FL (80-99); MEAN PLATELET VOLUME 7.7 FL (6.5-10.1); MONOCYTES % (AUTO) 8.6 % (1.0-10.0); NEUTROPHILS % (AUTO) 71.8 % (45.0-75.0); PLATELET COUNT 160 K/UL (150-450); RED BLOOD COUNT 4.23 M/UL (4.20-5.40); RED CELL DISTRIBUTION WIDTH 12.5 % (11.6-14.8); WHITE BLOOD COUNT 9.5 K/UL (4.8-10.8)
[2016-12-13 12:46] LABS: ALANINE AMINOTRANSFERASE 16 U/L (3-33); ALBUMIN/GLOBULIN RATIO 0.9 (1.0-2.7); ANION GAP 15 (5-15); ASPARTATE AMINO TRANSFERASE 18 U/L (5-40); CARBON DIOXIDE 23 mEQ/L (20-30); CHLORIDE 100 mEQ/L (98-107); CREATININE 1.6 mg/dL (0.5-0.9); HEMOLYSIS 7; POTASSIUM 4.7 mEQ/L (3.4-4.9); SODIUM 138 mEQ/L (135-145); TOTAL PROTEIN 6.3 g/dL (6.6-8.7)
[2016-12-13 16:00] VITALS: BP 134/58
[2016-12-13 20:12] VITALS: BP 139/72
[2016-12-13] MEDS: Vancomycin 750mg/D5W 275ml IVPB SCH ×2 (21:08)
--- NOTE | 2016-12-13 23:22 | Pulmonology Progress Note ---
Assessment/Plan Problems: (1) Cellulitis in diabetic foot (2) Decubitus ulcer (3) Dementia (4) Diabetes mellitus Assessment/Plan wound care iv antibioitcs f/u electrolytes f/u by podiatry Subjective ROS Limited/Unobtainable: Yes Skin: Reports: rash, ulcer Allergies: Coded Allergies: MORPHINE (Verified Adverse Reaction, Severe, PARADOXICAL REACTION, 10/08/12 ) Objective Last 24 Hour Vital Signs Date Time Temp Pulse Resp B/P Pulse Ox O2 Delivery O2 Flow Rate FiO2 12/13/16 20:12 97.9 78 21 139/72 93 Room Air 12/13/16 16:00 98.2 68 20 134/58 95 Room Air 12/13/16 11:19 98.2 72 20 142/69 96 Room Air 12/13/16 09:34 69 148/71 12/13/16 08:04 97.3 69 18 148/71 96 Room Air 12/13/16 04:07 97.0 72 17 138/73 96 Room Air 12/13/16 00:12 98.1 69 18 137/77 93 Room Air Intake and Output 12/12/16 12/13/16 19:00 07:00 Intake Total 900 ml 843.708 ml Output Total 475 ml 1000 ml Balance 425 ml -156.292 ml Intake Oral 900 ml 660 ml IV Total 183.708 ml Output Urine Total 475 ml 1000 ml General Appearance: no acute distress HEENT: normocephalic, atraumatic, PERRL Respiratory/Chest: chest wall non-tender, normal breath sounds, no respiratory distress, chest wall tender Breasts: no masses Cardiovascular: normal peripheral pulses, normal rate, regular rhythm, no JVD Abdomen: normal bowel sounds, soft, non tender, no organomegaly Skin: rash, lesions, ulcers 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, responsive, disoriented Laboratory Tests 12/13/16 12:05: White Blood Count 9.5, Red Blood Count 4.23, Hemoglobin 12.3, Hematocrit 37.9, Mean Corpuscular Volume 90, Mean Corpuscular Hemoglobin 29.1, Mean Corpuscular Hemoglobin Concent 32.5, Red Cell Distribution Width 12.5, Platelet Count 160, Mean Platelet Volume 7.7, Neutrophils (%) (Auto) 71.8, Lymphocytes (%) (Auto) 14.1L, Monocytes (%) (Auto) 8.6, Eosinophils (%) (Auto) 4.4H, Basophils (%) ( Auto) 1.0, Sodium Level 138, Potassium Level 4.7, Chloride Level 100, Carbon Dioxide Level 23, Anion Gap 15, Blood Urea Nitrogen 35H, Creatinine 1.6H, Estimat Glomerular Filtration Rate , Glucose Level 199H, Calcium Level 9.0, Total Bilirubin < 0.2, Aspartate Amino Transf (AST/SGOT) 18, Alanine Aminotransferase (ALT/SGPT) 16, Alkaline Phosphatase 72, Total Protein 6.3L, Albumin 3.1L, Globulin 3.2, Albumin/Globulin Ratio 0.9L Current Medications Medications (Trade) Dose Ordered Sig/Rina Route PRN Reason Start Time Stop Time Status Last Admin Dose Admin Acetaminophen (Tylenol) 650 mg Q4H PRN ORAL fever 12/09/16 05:45 01/08/17 05:44 Al Hydroxide/Mg Hydroxide (Mylanta II) 30 ml Q6H PRN ORAL dyspepsia 12/09/16 05:45 01/08/17 05:44 Amlodipine Besylate (Norvasc) 2.5 mg DAILY ORAL 12/09/16 09:00 01/08/17 08:59 12/13/16 09:34 Aspirin (Ecotrin) 81 mg DAILY ORAL 12/09/16 09:00 01/08/17 08:59 12/13/16 09:33 Cefepime HCl/ Dextrose (Maxipime/D5W) 55 ml @ 110 mls/hr Q24H IV 12/09/16 06:00 12/16/16 05:59 12/13/16 04:54 Clonidine HCl (Catapres) 0.1 mg EVERY 6 HOURS PRN ORAL SBP>160 12/08/16 22:15 01/07/17 22:14 12/08/16 23:21 Dextrose STAT PRN IV Hypoglycemia 12/09/16 05:45 01/08/17 05:44 Diphenhydramine HCl (Benadryl) 25 mg Q6H PRN IVP Itching 12/08/16 22:45 01/07/17 22:44 12/12/16 19:39 Donepezil HCl (Aricept) 10 mg DAILY ORAL 12/09/16 09:00 01/08/17 08:59 12/13/16 09:33 Heparin Sodium (Porcine) (Heparin 5000 units/ml) 5,000 units EVERY 12 HOURS SUBQ 12/09/16 09:00 01/08/17 08:59 12/13/16 21:10 Insulin Aspart (NovoLOG) BEFORE MEALS AND HS SUBQ 12/09/16 06:30 01/08/17 06:29 12/13/16 21:11 Levothyroxine Sodium (Synthroid) 25 mcg ACBREAKFAST ORAL 12/09/16 06:30 01/08/17 06:29 12/13/16 05:40 Lorazepam (Ativan 2mg/ml 1ml) 0.5 mg Q4H PRN IV For Anxiety 12/09/16 05:45 12/16/16 05:44 12/12/16 19:51 Memantine (Namenda) 10 mg DAILY ORAL 12/09/16 09:00 01/08/17 08:59 12/13/16 09:34 Nebivolol (Bystolic) 5 mg DAILY ORAL 12/09/16 09:00 01/08/17 08:59 12/13/16 09:33 Nystatin (Nystop Powder) 1 applic THREE TIMES A DAY TOPIC 12/09/16 13:00 01/08/17 12:59 12/13/16 17:43 Ondansetron HCl (Zofran) 4 mg Q6H PRN IVP Nausea & Vomiting 12/09/16 05:45 01/08/17 05:44 Patient Own Medication (Patient's Own Med) 1 ea DAILY BOTH EYES 12/13/16 09:00 01/12/17 08:59 12/13/16 09:35 Polyethylene Glycol (Miralax) 17 gm HSPRN PRN ORAL Constipation 12/09/16 05:45 01/08/17 05:44 Quetiapine Fumarate (SEROquel) 25 mg BEDTIME ORAL 12/12/16 21:00 01/11/17 20:59 12/13/16 21:07 Sertraline HCl (Zoloft) 50 mg DAILY ORAL 12/13/16 09:00 01/12/17 08:59 12/13/16 09:33 Vancomycin HCl 1 ea 1 ea DAILY PRN MISC Per rx protocol 12/09/16 05:45 01/08/17 05:44 Vancomycin HCl/ Dextrose (Vancomycin/D5W) 275 ml @ 183.708 mls/hr Q24H IVPB 12/09/16 21:00 12/14/16 20:59 12/13/16 21:08 Zolpidem Tartrate (Ambien) 5 mg HSPRN PRN ORAL Insomnia 12/09/16 05:45 01/08/17 05:44 SHYAM NAVA Dec 13, 2016 23:22
[2016-12-14] VITALS (7 sets, daily range): BP systolic 136–161; BP diastolic 66–86
[2016-12-14] MEDS: Cefepime HCl 1 GM in D5W 55 ML IV SCH (05:30)
[2016-12-14] MEDS: Levothyroxine 25mcg tab ORAL SCH (05:58)
[2016-12-14] MEDS: NovoLOG Insulin Flexpen SUBQ SCH ×4 (06:02→20:56)
[2016-12-14] MEDS: Sertraline 50mg tab ORAL SCH (08:26)
[2016-12-14] MEDS: Donepezil 10mg tab ORAL SCH (08:26)
[2016-12-14] MEDS: Memantine 10mg tab ORAL SCH (08:27)
[2016-12-14] MEDS: Bystolic 2.5mg Tab ORAL SCH (08:27)
[2016-12-14] MEDS: Aspirin EC 81mg tab ORAL SCH (08:27)
[2016-12-14] MEDS: Nystatin Powder 100,000 units/gm 15gm TOPIC SCH ×3 (08:32→18:24)
[2016-12-14] MEDS: Heparin 5000 units/ml inj SUBQ SCH (08:33)
--- NOTE | 2016-12-14 12:21 | Infectious Diseases Prog Note ---
Assessment/Plan Assessment/Plan ASSESSMENT: 76 y/o female with: // Right medial ankle cellulitis / osteomyelitis / hardware infection - await hardware removal - 3P bone scan: 3 phase increased activity in region of distal aspect of right fibula compatible with hardware loosening and/or osteomyelitis - XR: surgical hardware seen reducing old healed distal fibular and medial malleolar fractures. No acute fractures. No dislocations. Bones are demineralized. - elevated ESR, CRP - h/o right ankle ORIF // Winter intertrigo // Afebrile without leukocytosis // Dementia // DM // h/o CAD // No ABX allergies // Full Code PLAN: - continue empiric IV vancomycin, cefepime d# 6 ( will need 6 weeks IV ABX from date of HWR ) - hardware removal 12/15 per podiatry - f/u cultures - monitor CBC, temperatures - monitor BMP - wound care Subjective Constitutional: Denies: anorexia, chills, drenching sweats, fatigue, fever, no symptoms, other Allergies: Coded Allergies: MORPHINE (Verified Adverse Reaction, Severe, PARADOXICAL REACTION, 10/08/12 ) Objective Vital Signs Last 24 Hour Vital Signs Date Time Temp Pulse Resp B/P Pulse Ox O2 Delivery O2 Flow Rate FiO2 12/14/16 08:27 68 160/86 12/14/16 08:00 98.4 68 20 160/86 94 Room Air 12/14/16 04:05 98.1 74 17 155/66 94 Room Air 12/14/16 00:10 99.7 73 18 152/77 96 Room Air 12/13/16 20:12 97.9 78 21 139/72 93 Room Air 12/13/16 16:00 98.2 68 20 134/58 95 Room Air Height (Feet): 5 Height (Inches): 0.00 Weight (Pounds): 160 HEENT: anicteric Respiratory/Chest: chest wall non-tender Cardiovascular: normal rate Abdomen: no organomegaly Skin: no lesions Current Medications Medications (Trade) Dose Ordered Sig/Rina Route PRN Reason Start Time Stop Time Status Last Admin Dose Admin Acetaminophen (Tylenol) 650 mg Q4H PRN ORAL fever 12/09/16 05:45 01/08/17 05:44 Al Hydroxide/Mg Hydroxide (Mylanta II) 30 ml Q6H PRN ORAL dyspepsia 12/09/16 05:45 01/08/17 05:44 Amlodipine Besylate (Norvasc) 2.5 mg DAILY ORAL 12/09/16 09:00 01/08/17 08:59 12/14/16 08:27 Aspirin (Ecotrin) 81 mg DAILY ORAL 12/09/16 09:00 01/08/17 08:59 12/14/16 08:27 Cefepime HCl/ Dextrose (Maxipime/D5W) 55 ml @ 110 mls/hr Q24H IV 12/09/16 06:00 12/16/16 05:59 12/14/16 05:30 Clonidine HCl (Catapres) 0.1 mg EVERY 6 HOURS PRN ORAL SBP>160 12/08/16 22:15 01/07/17 22:14 12/08/16 23:21 Dextrose STAT PRN IV Hypoglycemia 12/09/16 05:45 01/08/17 05:44 Diphenhydramine HCl (Benadryl) 25 mg Q6H PRN IVP Itching 12/08/16 22:45 01/07/17 22:44 12/12/16 19:39 Donepezil HCl (Aricept) 10 mg DAILY ORAL 12/09/16 09:00 01/08/17 08:59 12/14/16 08:26 Heparin Sodium (Porcine) (Heparin 5000 units/ml) 5,000 units EVERY 12 HOURS SUBQ 12/09/16 09:00 01/08/17 08:59 12/14/16 08:33 Insulin Aspart (NovoLOG) BEFORE MEALS AND HS SUBQ 12/09/16 06:30 01/08/17 06:29 12/14/16 06:02 Levothyroxine Sodium (Synthroid) 25 mcg ACBREAKFAST ORAL 12/09/16 06:30 01/08/17 06:29 12/14/16 05:58 Lorazepam (Ativan 2mg/ml 1ml) 0.5 mg Q4H PRN IV For Anxiety 12/09/16 05:45 12/16/16 05:44 12/12/16 19:51 Memantine (Namenda) 10 mg DAILY ORAL 12/09/16 09:00 01/08/17 08:59 12/14/16 08:27 Nebivolol (Bystolic) 5 mg DAILY ORAL 12/09/16 09:00 01/08/17 08:59 12/14/16 08:27 Nystatin (Nystop Powder) 1 applic THREE TIMES A DAY TOPIC 12/09/16 13:00 01/08/17 12:59 12/14/16 08:32 Ondansetron HCl (Zofran) 4 mg Q6H PRN IVP Nausea & Vomiting 12/09/16 05:45 01/08/17 05:44 Patient Own Medication (Patient's Own Med) 1 ea DAILY BOTH EYES 12/13/16 09:00 01/12/17 08:59 12/14/16 08:32 Polyethylene Glycol (Miralax) 17 gm HSPRN PRN ORAL Constipation 12/09/16 05:45 01/08/17 05:44 Quetiapine Fumarate (SEROquel) 25 mg BEDTIME ORAL 12/12/16 21:00 01/11/17 20:59 12/13/16 21:07 Sertraline HCl (Zoloft) 50 mg DAILY ORAL 12/13/16 09:00 01/12/17 08:59 12/14/16 08:26 Vancomycin HCl 1 ea 1 ea DAILY PRN MISC Per rx protocol 12/09/16 05:45 01/08/17 05:44 Vancomycin HCl/ Dextrose (Vancomycin/D5W) 275 ml @ 183.708 mls/hr Q24H IVPB 12/09/16 21:00 12/14/16 20:59 12/13/16 21:08 Zolpidem Tartrate (Ambien) 5 mg HSPRN PRN ORAL Insomnia 12/09/16 05:45 01/08/17 05:44 GISELLA JEROME M.D. Dec 14, 2016 12:21
--- NOTE | 2016-12-14 16:23 | Pulmonology Progress Note ---
Assessment/Plan Problems: (1) Cellulitis in diabetic foot (2) Decubitus ulcer (3) Dementia (4) Diabetes mellitus Assessment/Plan wound care iv antibioitcs f/u electrolytes f/u by podiatry Subjective ROS Limited/Unobtainable: Yes Constitutional: Reports: anorexia, fatigue Gastrointestinal/Abdominal: Reports: nausea Neurologic: Reports: confusion, weakness Musculoskeletal: Reports: pain, stiffness, swelling Allergies: Coded Allergies: MORPHINE (Verified Adverse Reaction, Severe, PARADOXICAL REACTION, 10/08/12 ) Objective Last 24 Hour Vital Signs Date Time Temp Pulse Resp B/P Pulse Ox O2 Delivery O2 Flow Rate FiO2 12/14/16 12:00 98.2 19 159/74 94 Room Air 12/14/16 08:27 68 160/86 12/14/16 08:00 98.4 68 20 160/86 94 Room Air 12/14/16 04:05 98.1 74 17 155/66 94 Room Air 12/14/16 00:10 99.7 73 18 152/77 96 Room Air 12/13/16 20:12 97.9 78 21 139/72 93 Room Air Intake and Output 12/13/16 12/14/16 19:00 07:00 Intake Total 120 ml 745.000 ml Output Total 300 ml 1350 ml Balance -180 ml -605.000 ml Intake Oral 120 ml 415 ml IV Total 330.000 ml Output Urine Total 300 ml 1350 ml # Voids 1 # Bowel Movements 1 1 General Appearance: no acute distress HEENT: normocephalic, atraumatic, PERRL Respiratory/Chest: chest wall non-tender, decreased breath sounds, accessory muscle use Breasts: no masses Cardiovascular: normal peripheral pulses, normal rate, regular rhythm, no JVD Abdomen: normal bowel sounds, soft, non tender, no organomegaly Genitourinary: normal external genitalia Extremities: other - diabetic foot ulcer osteomylitic skin changes Skin: rash, lesions, ulcers 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, responsive, disoriented, depressed affect Current Medications Medications (Trade) Dose Ordered Sig/Rina Route PRN Reason Start Time Stop Time Status Last Admin Dose Admin Acetaminophen (Tylenol) 650 mg Q4H PRN ORAL fever 12/09/16 05:45 01/08/17 05:44 Al Hydroxide/Mg Hydroxide (Mylanta II) 30 ml Q6H PRN ORAL dyspepsia 12/09/16 05:45 01/08/17 05:44 Amlodipine Besylate (Norvasc) 2.5 mg DAILY ORAL 12/09/16 09:00 01/08/17 08:59 12/14/16 08:27 Aspirin (Ecotrin) 81 mg DAILY ORAL 12/09/16 09:00 01/08/17 08:59 12/14/16 08:27 Cefepime HCl/ Dextrose (Maxipime/D5W) 55 ml @ 110 mls/hr Q24H IV 12/09/16 06:00 12/16/16 05:59 12/14/16 05:30 Clonidine HCl (Catapres) 0.1 mg EVERY 6 HOURS PRN ORAL SBP>160 12/08/16 22:15 01/07/17 22:14 12/08/16 23:21 Dextrose STAT PRN IV Hypoglycemia 12/09/16 05:45 01/08/17 05:44 Diphenhydramine HCl (Benadryl) 25 mg Q6H PRN IVP Itching 12/08/16 22:45 01/07/17 22:44 12/12/16 19:39 Donepezil HCl (Aricept) 10 mg DAILY ORAL 12/09/16 09:00 01/08/17 08:59 12/14/16 08:26 Insulin Aspart (NovoLOG) BEFORE MEALS AND HS SUBQ 12/09/16 06:30 01/08/17 06:29 12/14/16 12:56 Levothyroxine Sodium (Synthroid) 25 mcg ACBREAKFAST ORAL 12/09/16 06:30 01/08/17 06:29 12/14/16 05:58 Lorazepam (Ativan 2mg/ml 1ml) 0.5 mg Q4H PRN IV For Anxiety 12/09/16 05:45 12/16/16 05:44 12/12/16 19:51 Memantine (Namenda) 10 mg DAILY ORAL 12/09/16 09:00 01/08/17 08:59 12/14/16 08:27 Nebivolol (Bystolic) 5 mg DAILY ORAL 12/09/16 09:00 01/08/17 08:59 12/14/16 08:27 Nystatin (Nystop Powder) 1 applic THREE TIMES A DAY TOPIC 2/7/17 13:00 01/08/17 12:59 12/14/16 12:54 Ondansetron HCl (Zofran) 4 mg Q6H PRN IVP Nausea & Vomiting 12/09/16 05:45 01/08/17 05:44 Patient Own Medication (Patient's Own Med) 1 ea DAILY BOTH EYES 12/13/16 09:00 01/12/17 08:59 12/14/16 08:32 Polyethylene Glycol (Miralax) 17 gm HSPRN PRN ORAL Constipation 12/09/16 05:45 01/08/17 05:44 Quetiapine Fumarate (SEROquel) 25 mg BEDTIME ORAL 12/12/16 21:00 01/11/17 20:59 12/13/16 21:07 Sertraline HCl (Zoloft) 50 mg DAILY ORAL 12/13/16 09:00 01/12/17 08:59 12/14/16 08:26 Vancomycin HCl 1 ea 1 ea DAILY PRN MISC Per rx protocol 12/09/16 05:45 01/08/17 05:44 Vancomycin HCl/ Dextrose (Vancomycin/D5W) 275 ml @ 183.708 mls/hr Q24H IVPB 12/09/16 21:00 12/14/16 20:59 12/13/16 21:08 Zolpidem Tartrate (Ambien) 5 mg HSPRN PRN ORAL Insomnia 12/09/16 05:45 01/08/17 05:44 SHYAM NAVA Dec 14, 2016 16:23
--- NOTE | 2016-12-14 16:56 | Consultation ---
Consult Note Consult Note asked to eval for worsening renal failure- his is a 76-year-old demented diabetic female admitted on 12/08/2016 right ankle cellulitis. She has evidence of previous surgery and underlying hardware. The patient unable to provide additional information. PAST MEDICAL HISTORY: 1. Diabetes. 2. Coronary artery disease status post stenting. 3. Dementia. PAST SURGICAL HISTORY: 1. Cholecystectomy. 2. Right ankle surgery. 3. Right elbow surgery. ALLERGIES: 1. Morphine. Patient examined- Poor Historian- Data reviewed- Assessment/Plan - Renal failure, likely diabetic nephropathy / HTN - Cellulitis in diabetic foot right LE - Decubitus ulcer - Dementia - Diabetes mellitus - Nonpressure ulcer to level of fascia right lateral ankle 5) S/P ORIF right ankle Plan: Adjust BP meds- Avoid Nephrotoxics- UA Urine studies- Monitor renal parameters- Per orders BERTRAM CASTAÑEDA Dec 14, 2016 16:56
[2016-12-14 18:18] LABS: APPEARANCE,URINE CLEAR; KETONES,URINE NEGATIVE (NEGATIVE); LEUKOCYTE ESTERASE ,URINE NEGATIVE (NEGATIVE); NITRITE,URINE NEGATIVE (NEGATIVE); PH,URINE 5 (4.5-8.0); PROTEIN,URINE 3+ (NEGATIVE); UROBILINOGEN,URINE NORMAL MG/DL (0.0-1.0)
[2016-12-14] MEDS: Docusate 100mg cap ORAL SCH (18:23)
[2016-12-14 18:33] LABS: BACTERIA,URINE FEW /HPF; SQUAMOUS EPITHELIAL CELL,UR FEW /LPF (NONE/OCC)
[2016-12-15] VITALS (11 sets, daily range): BP systolic 110–151; BP diastolic 56–85
[2016-12-15] MEDS: Cefepime HCl 1 GM in D5W 55 ML IV SCH (05:06)
[2016-12-15] MEDS: Levothyroxine 25mcg tab ORAL SCH (06:11)
[2016-12-15] MEDS: NovoLOG Insulin Flexpen SUBQ SCH ×4 (06:11→21:20)
[2016-12-15] MEDS ORDERED: Bacitracin 50000 Units Vial ONE (07:27)
[2016-12-15] MEDS ORDERED: Bupivacaine w/Epi 0.5% 30ml Vial INJ ONE (07:27)
[2016-12-15] MEDS ORDERED: Bupivacaine 0.5% Inj 30 ml vial INJ ONE (07:27)
[2016-12-15] MEDS ORDERED: Lidocaine 1% Plain 30 ml INJ ONE (07:27)
--- NOTE | 2016-12-15 07:29 | Pre-Procedure Note/Attestation ---
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 I attest that, if there was a reasonable possibility of needing a blood transfusion, the patient (or the patient's legal business center representative) was given the [facility] standardized written summary, pursuant to the Fabian Jenner Blood Safety Act ([place] Health and Safety Code # 1645, as amended). I attest that I re-evaluated the patient just prior to the surgery and that there has been no change in the patient's H&P, except as documented below: Pedrito Siddiqui DPM Dec 15, 2016 07:28
[2016-12-15 07:44] LABS: LYMPHOCYTES % (AUTO) 20.9 % (20.0-45.0); MEAN CORPUSCULAR HEMOGLOBIN 29.3 PG (27.0-31.0); MEAN CORPUSCULAR HGB CONC 32.8 G/DL (32.0-36.0); MEAN CORPUSCULAR VOLUME 89 FL (80-99); MONOCYTES % (AUTO) 10.6 % (1.0-10.0); NEUTROPHILS % (AUTO) 62.5 % (45.0-75.0); PLATELET COUNT 137 K/UL (150-450); RED BLOOD COUNT 3.86 M/UL (4.20-5.40); RED CELL DISTRIBUTION WIDTH 12.5 % (11.6-14.8); WHITE BLOOD COUNT 6.4 K/UL (4.8-10.8)
[2016-12-15 07:55] LABS: ALANINE AMINOTRANSFERASE 16 U/L (3-33); ANION GAP 15 (5-15); ASPARTATE AMINO TRANSFERASE < 5 U/L (5-40); CALCIUM 8.7 mg/dL (8.6-10.2); CARBON DIOXIDE 24 mEQ/L (20-30); CHLORIDE 101 mEQ/L (98-107); CHOLESTEROL 183 mg/dL (< 200); CHOLESTEROL/HDL RATIO 5.4 (3.3-4.4); CREATININE 1.5 mg/dL (0.5-0.9); CRP QUANT 4.9 mg/dL (< 0.5); HEMOLYSIS 12; LDL CHOLESTEROL (CALC.) 113 mg/dL (60-99); MAGNESIUM 1.7 mg/dL (1.7-2.5); PHOSPHORUS 3.5 mg/dL (2.5-4.8); POTASSIUM 4.6 mEQ/L (3.4-4.9); SODIUM 140 mEQ/L (135-145); URIC ACID 6.9 mg/dL (3.0-7.5)
[2016-12-15] MEDS ORDERED: LR 1000ml ONE (08:00)
[2016-12-15] MEDS ORDERED: Sterile Water Irrig 1000ml IRRIG ONE (08:00)
[2016-12-15] MEDS ORDERED: NS Irrig 1000ml ONE (08:00)
[2016-12-15] MEDS ORDERED: Propofol 10mg/ml 20ml IV ONE (08:00)
[2016-12-15] MEDS: Donepezil 10mg tab ORAL SCH (08:27)
[2016-12-15] MEDS: Memantine 10mg tab ORAL SCH (08:28)
[2016-12-15] MEDS: Aspirin EC 81mg tab ORAL SCH (08:28)
[2016-12-15] MEDS: Docusate 100mg cap ORAL SCH ×2 (08:28→18:44)
[2016-12-15] MEDS: Bystolic 2.5mg Tab ORAL SCH (08:28)
[2016-12-15] MEDS: Sertraline 50mg tab ORAL SCH (08:29)
[2016-12-15] MEDS: Nystatin Powder 100,000 units/gm 15gm TOPIC SCH ×3 (08:31→18:44)
--- NOTE | 2016-12-15 08:53 | Anethesia Preoperative Eval ---
Anesthesia Pre-op PMH/ROS General Date of Evaluation: Dec 15, 2016 Time of Evaluation: 08:05 Anesthesiologist: Josafat ASA Score: ASA 3 Mallampati Score Class I : Soft palate, uvula, fauces, pillars visible Class II: Soft palate, uvula, fauces visible Class III: Soft palate, base of uvula visible Class IV: Only hard plate visible Mallampati Classification: Class III Surgeon: Artur Diagnosis: Retained hardware, diabetic foot ulcer Surgical Procedure: Removal of hardware Family History: no anesthesia problems Allergies: Coded Allergies: MORPHINE (Verified Adverse Reaction, Severe, PARADOXICAL REACTION, 10/08/12 ) Medications: see eMAR Past Medical History Cardiovascular: Reports: CAD - s/p 2 stents 1 year ago, HTN Pulmonary: Denies: COPD, LISA, asthma, other Gastrointestinal/Genitourinary: Denies: CRI, ESRD, GERD, other 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: Reports: dementia Endocrine: Reports: DM PMH Narrative: DM, HTN, CAD (s/p stents), hypercholesterolemia PSxH Narrative: ORIF eight ankle, cholecystectomy Anesthesia Pre-op Phys. Exam Physician Exam Last Vital Signs Date Time Temp Pulse Resp B/P Pulse Ox O2 Delivery O2 Flow Rate FiO2 12/15/16 04:00 98.2 63 18 121/56 92 Room Air Constitutional: NAD Neurologic: CN 2-12 intact Cardiovascular: RRR, no M/R/G Respiratory: CTA Gastrointestinal: S/NT/ND Airway Exam Mallampati Score: Class III MO: limited Teeth: missing Anesthesia Pre-op A/P Labs Hematology Test 12/15/16 06:00 White Blood Count 6.4 K/UL (4.8-10.8) Red Blood Count 3.86 M/UL (4.20-5.40) L Hemoglobin 11.3 G/DL (12.0-16.0) L Hematocrit 34.5 % (37.0-47.0) L Mean Corpuscular Volume 89 FL (80-99) Mean Corpuscular Hemoglobin 29.3 PG (27.0-31.0) Mean Corpuscular Hemoglobin Concent 32.8 G/DL (32.0-36.0) Red Cell Distribution Width 12.5 % (11.6-14.8) Platelet Count 137 K/UL (150-450) L Mean Platelet Volume 7.0 FL (6.5-10.1) Neutrophils (%) (Auto) 62.5 % (45.0-75.0) Lymphocytes (%) (Auto) 20.9 % (20.0-45.0) Monocytes (%) (Auto) 10.6 % (1.0-10.0) H Eosinophils (%) (Auto) 5.0 % (0.0-3.0) H Basophils (%) (Auto) 1.0 % (0.0-2.0) Chemistry Test 12/15/16 06:00 Sodium Level 140 mEQ/L (135-145) Potassium Level 4.6 mEQ/L (3.4-4.9) Chloride Level 101 mEQ/L (98-107) Carbon Dioxide Level 24 mEQ/L (20-30) Anion Gap 15 (5-15) Blood Urea Nitrogen 32 mg/dL (7-23) H Creatinine 1.5 mg/dL (0.5-0.9) H Estimat Glomerular Filtration Rate mL/min (>60) Glucose Level 177 mg/dL (74-106) H Uric Acid 6.9 mg/dL (3.0-7.5) Calcium Level 8.7 mg/dL (8.6-10.2) Phosphorus Level 3.5 mg/dL (2.5-4.8) Magnesium Level 1.7 mg/dL (1.7-2.5) Total Bilirubin 0.2 mg/dL (0.0-1.2) Gamma Glutamyl Transpeptidase 19 U/L (5-36) Aspartate Amino Transf (AST/SGOT) < 5 U/L (5-40) L Alanine Aminotransferase (ALT/SGPT) 16 U/L (3-33) Alkaline Phosphatase 69 U/L (35-104) Total Creatine Kinase 23 U/L (26-140) L C-Reactive Protein, Quantitative 4.9 mg/dL (< 0.5) H Pro-B-Type Natriuretic Peptide 275 pg/mL (0-450) Total Protein 6.0 g/dL (6.6-8.7) L Albumin 3.1 g/dL (3.5-5.2) L Globulin 2.9 g/dL Albumin/Globulin Ratio 1.0 (1.0-2.7) Triglycerides Level 179 mg/dL (< 150) H Cholesterol Level 183 mg/dL (< 200) LDL Cholesterol 113 mg/dL (60-99) H HDL Cholesterol 34 mg/dL (> 60) Cholesterol/HDL Ratio 5.4 (3.3-4.4) H Studies Pre-op Studies: EKG - NSR Risk Assessment & Plan Assessment: HTN, DM, CAD for removal of hardware causing skin breakdown Plan: GA, LMA Status Change Before Surgery: No Pre-Antibiotics Drug: None YSABEL CARDONA M.D. Dec 15, 2016 08:53
--- NOTE | 2016-12-15 08:55 | Immediate Post-Op Evaluation ---
Immediate Post-Op Evalulation Immediate Post-Op Evalulation Procedure: Removal of hardware right ankle Date of Evaluation: Dec 15, 2016 Time of Evaluation: 09:50 IV Fluids: 200 Blood Pressure Systolic: 150 Blood Pressure Diastolic: 65 Pulse Rate: 74 Respiratory Rate: 20 O2 Sat by Pulse Oximetry: 100 Temperature (Fahrenheit): 97.5 Pain Score (1-10): 0 Nausea: No Vomiting: No Complications No complication Patient Status: reacts, patent, none Hydration Status: adequate Drug: None YSABEL CARDONA M.D. Dec 15, 2016 08:55
[2016-12-15] MEDS ORDERED: fentaNYL 100 mcg/2 mL IV PRN (09:00)
--- NOTE | 2016-12-15 09:44 | Brief Operative Note ---
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
--- NOTE | 2016-12-15 09:45 | 48 Hour Post Anesthesia Eval ---
Post Anesthesia Evaluation Procedure: Removal of hardware right ankle Date of Evaluation: Dec 15, 2016 Time of Evaluation: 10:15 Blood Pressure Systolic: 119 0: 67 Pulse Rate: 75 Respiratory Rate: 18 O2 Sat by Pulse Oximetry: 98 Nausea: No Vomiting: No Pain Intensity: 0 Hydration Status: adequate Cardiopulmonary Status: Stable Mental Status/LOC: patient returned to baseline Follow-up Care/Observations: As per surgery Post-Anesthesia Complications: No anesthetic complication Follow-up care needed: N/A YSABEL CARDONA M.D. Dec 15, 2016 09:45
[2016-12-15] MEDS: Vancomycin 750mg/D5W 275ml IVPB SCH ×4 (10:00→11:07)
--- NOTE | 2016-12-15 10:25 | General Progress Note ---
Assessment/Plan Status: stable Status Narrative Cr lower 1.5 Assessment/Plan status: - Renal failure, likely diabetic nephropathy / HTN - Cellulitis in diabetic foot right LE - Decubitus ulcer - Dementia - Diabetes mellitus - Nonpressure ulcer to level of fascia right lateral ankle - S/P ORIF right ankle Plan: Adjust BP meds- Avoid Nephrotoxics- UA Urine studies- Monitor renal parameters- due surgery today and removal of hardwear Per orders Subjective ROS Limited/Unobtainable: No Constitutional: Reports: malaise Allergies: Coded Allergies: MORPHINE (Verified Adverse Reaction, Severe, PARADOXICAL REACTION, 10/08/12 ) Objective Last 24 Hour Vital Signs Date Time Temp Pulse Resp B/P Pulse Ox O2 Delivery O2 Flow Rate FiO2 12/15/16 10:10 76 21 123/59 97 Nasal Cannula 3.0 12/15/16 10:00 79 24 136/59 97 Nasal Cannula 3.0 12/15/16 09:50 76 21 118/85 100 Simple Mask 6.0 12/15/16 09:45 75 23 119/67 100 Simple Mask 6.0 12/15/16 09:45 75 19 98 12/15/16 09:43 74 20 100 12/15/16 09:40 97.5 77 27 150/65 100 Simple Mask 6.0 12/15/16 04:00 98.2 63 18 121/56 92 Room Air 12/15/16 00:00 99.0 76 18 120/61 94 Room Air 12/14/16 20:30 94 Room Air 12/14/16 20:00 99.1 76 20 136/69 91 Room Air 12/14/16 18:23 79 150/70 12/14/16 18:21 97.2 79 150/70 12/14/16 16:48 161/66 12/14/16 16:34 96.7 72 20 161/66 93 Room Air 12/14/16 12:00 98.2 19 159/74 94 Room Air Intake and Output 12/14/16 12/15/16 19:00 07:00 Intake Total 240 ml 295 ml Output Total 400 ml 495 ml Balance -160 ml -200 ml Intake Oral 240 ml 240 ml IV Total 55 ml Output Urine Total 400 ml 495 ml # Bowel Movements 1 Laboratory Tests 12/14/16 18:05: Urine Color Yellow, Urine Appearance Clear, Urine pH 5, Urine Specific [place] 1.020, Urine Protein 3+H, Urine Glucose (UA) 1+H, Urine Ketones Negative, Urine Occult Blood 1+H, Urine Nitrite Negative, Urine Bilirubin Negative, Urine Urobilinogen Normal, Urine Leukocyte Esterase Negative, Urine RBC 2-4H, Urine WBC 5-10H, Urine Squamous Epithelial Cells Few, Urine Bacteria Few, Urine Random Sodium 85 12/15/16 06:00: White Blood Count 6.4, Red Blood Count 3.86L, Hemoglobin 11.3L, Hematocrit 34.5L , Mean Corpuscular Volume 89, Mean Corpuscular Hemoglobin 29.3, Mean Corpuscular Hemoglobin Concent 32.8, Red Cell Distribution Width 12.5, Platelet Count 137L, Mean Platelet Volume 7.0, Neutrophils (%) (Auto) 62.5, Lymphocytes ( %) (Auto) 20.9, Monocytes (%) (Auto) 10.6H, Eosinophils (%) (Auto) 5.0H, Basophils (%) (Auto) 1.0, Urine Eosinophils None seen, Sodium Level 140, Potassium Level 4.6, Chloride Level 101, Carbon Dioxide Level 24, Anion Gap 15, Blood Urea Nitrogen 32H, Creatinine 1.5H, Estimat Glomerular Filtration Rate , Glucose Level 177H, Uric Acid 6.9, Calcium Level 8.7, Phosphorus Level 3.5, Magnesium Level 1.7, Total Bilirubin 0.2, Gamma Glutamyl Transpeptidase 19, Aspartate Amino Transf (AST/SGOT) < 5L, Alanine Aminotransferase (ALT/SGPT) 16, Alkaline Phosphatase 69, Total Creatine Kinase 23L, C-Reactive Protein, Quantitative 4.9H, Pro-B-Type Natriuretic Peptide 275, Total Protein 6.0L, Albumin 3.1L, Globulin 2.9, Albumin/Globulin Ratio 1.0, Triglycerides Level 179H , Cholesterol Level 183, LDL Cholesterol 113H, HDL Cholesterol 34, Cholesterol/ HDL Ratio 5.4H, Random Vancomycin Level 14.4 Height (Feet): 5 Height (Inches): 0.00 Weight (Pounds): 160 General Appearance: no apparent distress Objective PE not change BERTRAM CASTAÑEDA Dec 15, 2016 10:25
[2016-12-15] MEDS ORDERED: traMADol 50mg tab ORAL PRN (11:30)
--- NOTE | 2016-12-15 16:20 | Infectious Diseases Prog Note ---
Assessment/Plan Assessment/Plan ASSESSMENT: 76 y/o female with: // Right medial ankle cellulitis / osteomyelitis / hardware infection - SP hardware removal 12/15 - path: pending - 3P bone scan: 3 phase increased activity in region of distal aspect of right fibula compatible with hardware loosening and/or osteomyelitis - XR: surgical hardware seen reducing old healed distal fibular and medial malleolar fractures. No acute fractures. No dislocations. Bones are demineralized. - elevated ESR, CRP - h/o right ankle ORIF // Winter intertrigo // Afebrile without leukocytosis // Dementia // DM // h/o CAD // No ABX allergies // Full Code PLAN: - DC planning for IV vancomycin + cefepime through 01/26/14 ( 6 weeks IV ABX from date of HWR ) - d/w son would prefer home health - weekly CBC, CMP, ESR, CRP while on IV ABX - f/u path - monitor CBC, temperatures - monitor BMP - wound care Subjective Allergies: Coded Allergies: MORPHINE (Verified Adverse Reaction, Severe, PARADOXICAL REACTION, 10/08/12 ) Subjective remains afebrile. comfortable SP HWR Objective Vital Signs Last 24 Hour Vital Signs Date Time Temp Pulse Resp B/P Pulse Ox O2 Delivery O2 Flow Rate FiO2 12/15/16 16:13 97.2 60 18 126/72 97 Nasal Cannula 2.0 12/15/16 13:09 18 12/15/16 12:57 97.0 61 18 110/63 95 Nasal Cannula 2.0 12/15/16 10:24 97.4 76 20 127/83 97 Nasal Cannula 3.0 12/15/16 10:10 76 21 123/59 97 Nasal Cannula 3.0 12/15/16 10:00 79 24 136/59 97 Nasal Cannula 3.0 12/15/16 09:50 76 21 118/85 100 Simple Mask 6.0 12/15/16 09:45 75 23 119/67 100 Simple Mask 6.0 12/15/16 09:45 75 19 98 12/15/16 09:43 74 20 100 12/15/16 09:40 97.5 77 27 150/65 100 Simple Mask 6.0 12/15/16 04:00 98.2 63 18 121/56 92 Room Air 12/15/16 00:00 99.0 76 18 120/61 94 Room Air 2/12/17 20:30 94 Room Air 12/14/16 20:00 99.1 76 20 136/69 91 Room Air 12/14/16 18:23 79 150/70 12/14/16 18:21 97.2 79 150/70 12/14/16 16:48 161/66 12/14/16 16:34 96.7 72 20 161/66 93 Room Air Height (Feet): 5 Height (Inches): 0.00 Weight (Pounds): 160 General Appearance: no acute distress Respiratory/Chest: no respiratory distress Cardiovascular: normal rate, regular rhythm Abdomen: normal bowel sounds, soft, non tender, non distended Laboratory Tests Test 12/14/16 18:05 12/15/16 06:00 Urine Color Yellow Urine Appearance Clear Urine pH 5 (4.5-8.0) Urine Specific [place] 1.020 (1.005-1.035) Urine Protein 3+ (NEGATIVE) H Urine Glucose (UA) 1+ (NEGATIVE) H Urine Ketones Negative (NEGATIVE) Urine Occult Blood 1+ (NEGATIVE) H Urine Nitrite Negative (NEGATIVE) Urine Bilirubin Negative (NEGATIVE) Urine Urobilinogen Normal MG/DL (0.0-1.0) Urine Leukocyte Esterase Negative (NEGATIVE) Urine RBC 2-4 /HPF (0 - 2) H Urine WBC 5-10 /HPF (0 - 2) H Urine Squamous Epithelial Cells Few /LPF (NONE/OCC) Urine Bacteria Few /HPF (NONE) Urine Random Sodium 85 mmol/L White Blood Count 6.4 K/UL (4.8-10.8) Red Blood Count 3.86 M/UL (4.20-5.40) L Hemoglobin 11.3 G/DL (12.0-16.0) L Hematocrit 34.5 % (37.0-47.0) L Mean Corpuscular Volume 89 FL (80-99) Mean Corpuscular Hemoglobin 29.3 PG (27.0-31.0) Mean Corpuscular Hemoglobin Concent 32.8 G/DL (32.0-36.0) Red Cell Distribution Width 12.5 % (11.6-14.8) Platelet Count 137 K/UL (150-450) L Mean Platelet Volume 7.0 FL (6.5-10.1) Neutrophils (%) (Auto) 62.5 % (45.0-75.0) Lymphocytes (%) (Auto) 20.9 % (20.0-45.0) Monocytes (%) (Auto) 10.6 % (1.0-10.0) H Eosinophils (%) (Auto) 5.0 % (0.0-3.0) H Basophils (%) (Auto) 1.0 % (0.0-2.0) Urine Eosinophils None seen Sodium Level 140 mEQ/L (135-145) Potassium Level 4.6 mEQ/L (3.4-4.9) Chloride Level 101 mEQ/L (98-107) Carbon Dioxide Level 24 mEQ/L (20-30) Anion Gap 15 (5-15) Blood Urea Nitrogen 32 mg/dL (7-23) H Creatinine 1.5 mg/dL (0.5-0.9) H Estimat Glomerular Filtration Rate mL/min (>60) Glucose Level 177 mg/dL (74-106) H Uric Acid 6.9 mg/dL (3.0-7.5) Calcium Level 8.7 mg/dL (8.6-10.2) Phosphorus Level 3.5 mg/dL (2.5-4.8) Magnesium Level 1.7 mg/dL (1.7-2.5) Total Bilirubin 0.2 mg/dL (0.0-1.2) Gamma Glutamyl Transpeptidase 19 U/L (5-36) Aspartate Amino Transf (AST/SGOT) < 5 U/L (5-40) L Alanine Aminotransferase (ALT/SGPT) 16 U/L (3-33) Alkaline Phosphatase 69 U/L (35-104) Total Creatine Kinase 23 U/L (26-140) L C-Reactive Protein, Quantitative 4.9 mg/dL (< 0.5) H Pro-B-Type Natriuretic Peptide 275 pg/mL (0-450) Total Protein 6.0 g/dL (6.6-8.7) L Albumin 3.1 g/dL (3.5-5.2) L Globulin 2.9 g/dL Albumin/Globulin Ratio 1.0 (1.0-2.7) Triglycerides Level 179 mg/dL (< 150) H Cholesterol Level 183 mg/dL (< 200) LDL Cholesterol 113 mg/dL (60-99) H HDL Cholesterol 34 mg/dL (> 60) Cholesterol/HDL Ratio 5.4 (3.3-4.4) H Random Vancomycin Level 14.4 ug/mL Current Medications Medications (Trade) Dose Ordered Sig/Rina Route PRN Reason Start Time Stop Time Status Last Admin Dose Admin Acetaminophen (Tylenol) 650 mg Q4H PRN ORAL fever 12/09/16 05:45 01/08/17 05:44 Amlodipine Besylate (Norvasc) 2.5 mg BID ORAL 12/14/16 18:00 01/13/17 17:59 12/14/16 18:23 Aspirin (Ecotrin) 81 mg DAILY ORAL 12/09/16 09:00 01/08/17 08:59 12/14/16 08:27 Cefepime HCl/ Dextrose (Maxipime/D5W) 55 ml @ 110 mls/hr Q24H IV 12/09/16 06:00 12/16/16 05:59 12/15/16 05:06 Clonidine HCl (Catapres) 0.1 mg EVERY 6 HOURS PRN ORAL SBP>160 12/08/16 22:15 01/07/17 22:14 12/14/16 16:48 Dextrose (Dextrose 50%) STAT PRN IV Hypoglycemia 12/09/16 05:45 01/08/17 05:44 Diphenhydramine HCl (Benadryl) 25 mg Q6H PRN IVP Itching 12/08/16 22:45 01/07/17 22:44 12/12/16 19:39 Docusate Sodium (Colace) 100 mg TWICE A DAY ORAL 12/14/16 18:00 01/13/17 17:59 12/14/16 18:23 Donepezil HCl (Aricept) 10 mg DAILY ORAL 12/09/16 09:00 01/08/17 08:59 12/14/16 08:26 Insulin Aspart (NovoLOG) BEFORE MEALS AND HS SUBQ 12/09/16 06:30 01/08/17 06:29 12/15/16 11:53 Levothyroxine Sodium (Synthroid) 25 mcg ACBREAKFAST ORAL 12/09/16 06:30 01/08/17 06:29 12/14/16 05:58 Lorazepam (Ativan 2mg/ml 1ml) 0.5 mg Q4H PRN IV For Anxiety 12/09/16 05:45 12/16/16 05:44 12/12/16 19:51 Memantine (Namenda) 10 mg DAILY ORAL 12/09/16 09:00 01/08/17 08:59 12/14/16 08:27 Nebivolol (Bystolic) 5 mg DAILY ORAL 12/09/16 09:00 01/08/17 08:59 12/14/16 08:27 Nystatin (Nystop Powder) 1 applic THREE TIMES A DAY TOPIC 12/09/16 13:00 01/08/17 12:59 12/15/16 11:54 Ondansetron HCl (Zofran) 4 mg Q6H PRN IVP Nausea & Vomiting 12/09/16 05:45 01/08/17 05:44 Pantoprazole 40 mg 40 mg DAILY ORAL 12/14/16 18:00 01/13/17 17:59 12/14/16 18:23 Patient Own Medication (Patient's Own Med) 1 ea DAILY BOTH EYES 12/13/16 09:00 01/12/17 08:59 12/14/16 08:32 Polyethylene Glycol (Miralax) 17 gm HSPRN PRN ORAL Constipation 12/09/16 05:45 01/08/17 05:44 Quetiapine Fumarate (SEROquel) 25 mg BEDTIME ORAL 12/12/16 21:00 01/11/17 20:59 12/14/16 20:54 Sertraline HCl (Zoloft) 50 mg DAILY ORAL 12/13/16 09:00 01/12/17 08:59 12/14/16 08:26 Tramadol HCl (Ultram) 50 mg Q6H PRN ORAL For Pain 12/15/16 11:30 12/22/16 11:29 Vancomycin HCl 1 ea 1 ea DAILY PRN MISC Per rx protocol 12/09/16 05:45 01/08/17 05:44 Vancomycin HCl/ Dextrose (Vancomycin/D5W) 275 ml @ 183.708 mls/hr Q24H IVPB 12/15/16 10:00 12/20/16 09:59 12/15/16 11:07 Zolpidem Tartrate (Ambien) 5 mg HSPRN PRN ORAL Insomnia 12/09/16 05:45 01/08/17 05:44 WENDY CHAPMAN Dec 15, 2016 16:20
--- NOTE | 2016-12-15 17:41 | Pulmonology Progress Note ---
Assessment/Plan Problems: (1) Cellulitis in diabetic foot (2) Decubitus ulcer (3) Dementia (4) Diabetes mellitus Assessment/Plan wound care iv antibioitcs f/u electrolytes f/u by podiatry Subjective ROS Limited/Unobtainable: Yes Constitutional: Reports: anorexia, fatigue Gastrointestinal/Abdominal: Reports: nausea Skin: Reports: rash, ulcer Musculoskeletal: Reports: pain, stiffness, swelling Allergies: Coded Allergies: MORPHINE (Verified Adverse Reaction, Severe, PARADOXICAL REACTION, 10/08/12 ) Objective Last 24 Hour Vital Signs Date Time Temp Pulse Resp B/P Pulse Ox O2 Delivery O2 Flow Rate FiO2 12/15/16 16:13 97.2 60 18 126/72 97 Nasal Cannula 2.0 12/15/16 13:09 18 12/15/16 12:57 97.0 61 18 110/63 95 Nasal Cannula 2.0 12/15/16 10:24 97.4 76 20 127/83 97 Nasal Cannula 3.0 12/15/16 10:10 76 21 123/59 97 Nasal Cannula 3.0 12/15/16 10:00 79 24 136/59 97 Nasal Cannula 3.0 12/15/16 09:50 76 21 118/85 100 Simple Mask 6.0 12/15/16 09:45 75 23 119/67 100 Simple Mask 6.0 12/15/16 09:45 75 19 98 12/15/16 09:43 74 20 100 12/15/16 09:40 97.5 77 27 150/65 100 Simple Mask 6.0 12/15/16 04:00 98.2 63 18 121/56 92 Room Air 12/15/16 00:00 99.0 76 18 120/61 94 Room Air 12/14/16 20:30 94 Room Air 12/14/16 20:00 99.1 76 20 136/69 91 Room Air 12/14/16 18:23 79 150/70 12/14/16 18:21 97.2 79 150/70 Intake and Output 12/14/16 12/15/16 19:00 07:00 Intake Total 240 ml 295 ml Output Total 400 ml 495 ml Balance -160 ml -200 ml Intake Oral 240 ml 240 ml IV Total 55 ml Output Urine Total 400 ml 495 ml # Bowel Movements 1 General Appearance: no acute distress HEENT: normocephalic, atraumatic, PERRL Respiratory/Chest: chest wall non-tender, decreased breath sounds, accessory muscle use Breasts: no masses Cardiovascular: normal peripheral pulses, normal rate, regular rhythm, no JVD Abdomen: normal bowel sounds, soft, non tender, no organomegaly Genitourinary: normal external genitalia Extremities: no cyanosis Skin: rash, lesions, ulcers 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, motor weakness, disoriented Laboratory Tests 12/14/16 18:05: Urine Color Yellow, Urine Appearance Clear, Urine pH 5, Urine Specific [place] 1.020, Urine Protein 3+H, Urine Glucose (UA) 1+H, Urine Ketones Negative, Urine Occult Blood 1+H, Urine Nitrite Negative, Urine Bilirubin Negative, Urine Urobilinogen Normal, Urine Leukocyte Esterase Negative, Urine RBC 2-4H, Urine WBC 5-10H, Urine Squamous Epithelial Cells Few, Urine Bacteria Few, Urine Random Sodium 85 12/15/16 06:00: White Blood Count 6.4, Red Blood Count 3.86L, Hemoglobin 11.3L, Hematocrit 34.5L , Mean Corpuscular Volume 89, Mean Corpuscular Hemoglobin 29.3, Mean Corpuscular Hemoglobin Concent 32.8, Red Cell Distribution Width 12.5, Platelet Count 137L, Mean Platelet Volume 7.0, Neutrophils (%) (Auto) 62.5, Lymphocytes ( %) (Auto) 20.9, Monocytes (%) (Auto) 10.6H, Eosinophils (%) (Auto) 5.0H, Basophils (%) (Auto) 1.0, Urine Eosinophils None seen, Sodium Level 140, Potassium Level 4.6, Chloride Level 101, Carbon Dioxide Level 24, Anion Gap 15, Blood Urea Nitrogen 32H, Creatinine 1.5H, Estimat Glomerular Filtration Rate , Glucose Level 177H, Uric Acid 6.9, Calcium Level 8.7, Phosphorus Level 3.5, Magnesium Level 1.7, Total Bilirubin 0.2, Gamma Glutamyl Transpeptidase 19, Aspartate Amino Transf (AST/SGOT) < 5L, Alanine Aminotransferase (ALT/SGPT) 16, Alkaline Phosphatase 69, Total Creatine Kinase 23L, C-Reactive Protein, Quantitative 4.9H, Pro-B-Type Natriuretic Peptide 275, Total Protein 6.0L, Albumin 3.1L, Globulin 2.9, Albumin/Globulin Ratio 1.0, Triglycerides Level 179H , Cholesterol Level 183, LDL Cholesterol 113H, HDL Cholesterol 34, Cholesterol/ HDL Ratio 5.4H, Random Vancomycin Level 14.4 Current Medications Medications (Trade) Dose Ordered Sig/Rina Route PRN Reason Start Time Stop Time Status Last Admin Dose Admin Acetaminophen (Tylenol) 650 mg Q4H PRN ORAL fever 12/09/16 05:45 01/08/17 05:44 Amlodipine Besylate (Norvasc) 2.5 mg BID ORAL 12/14/16 18:00 01/13/17 17:59 12/14/16 18:23 Aspirin (Ecotrin) 81 mg DAILY ORAL 12/09/16 09:00 01/08/17 08:59 12/14/16 08:27 Cefepime HCl/ Dextrose (Maxipime/D5W) 55 ml @ 110 mls/hr Q24H IV 12/09/16 06:00 12/16/16 05:59 12/15/16 05:06 Clonidine HCl (Catapres) 0.1 mg EVERY 6 HOURS PRN ORAL SBP>160 12/08/16 22:15 01/07/17 22:14 12/14/16 16:48 Dextrose (Dextrose 50%) STAT PRN IV Hypoglycemia 12/09/16 05:45 01/08/17 05:44 Diphenhydramine HCl (Benadryl) 25 mg Q6H PRN IVP Itching 12/08/16 22:45 01/07/17 22:44 12/12/16 19:39 Docusate Sodium (Colace) 100 mg TWICE A DAY ORAL 12/14/16 18:00 01/13/17 17:59 12/14/16 18:23 Donepezil HCl (Aricept) 10 mg DAILY ORAL 12/09/16 09:00 01/08/17 08:59 12/14/16 08:26 Insulin Aspart (NovoLOG) BEFORE MEALS AND HS SUBQ 12/09/16 06:30 01/08/17 06:29 12/15/16 16:46 Levothyroxine Sodium (Synthroid) 25 mcg ACBREAKFAST ORAL 12/09/16 06:30 01/08/17 06:29 12/14/16 05:58 Lorazepam (Ativan 2mg/ml 1ml) 0.5 mg Q4H PRN IV For Anxiety 12/09/16 05:45 12/16/16 05:44 12/12/16 19:51 Memantine (Namenda) 10 mg DAILY ORAL 12/09/16 09:00 01/08/17 08:59 12/14/16 08:27 Nebivolol (Bystolic) 5 mg DAILY ORAL 12/09/16 09:00 01/08/17 08:59 12/14/16 08:27 Nystatin (Nystop Powder) 1 applic THREE TIMES A DAY TOPIC 12/09/16 13:00 01/08/17 12:59 12/15/16 11:54 Ondansetron HCl (Zofran) 4 mg Q6H PRN IVP Nausea & Vomiting 12/09/16 05:45 01/08/17 05:44 Pantoprazole 40 mg 40 mg DAILY ORAL 12/14/16 18:00 01/13/17 17:59 12/14/16 18:23 Patient Own Medication (Patient's Own Med) 1 ea DAILY BOTH EYES 12/13/16 09:00 01/12/17 08:59 12/14/16 08:32 Polyethylene Glycol (Miralax) 17 gm HSPRN PRN ORAL Constipation 12/09/16 05:45 01/08/17 05:44 Quetiapine Fumarate (SEROquel) 25 mg BEDTIME ORAL 12/12/16 21:00 01/11/17 20:59 12/14/16 20:54 Sertraline HCl (Zoloft) 50 mg DAILY ORAL 12/13/16 09:00 01/12/17 08:59 12/14/16 08:26 Tramadol HCl (Ultram) 50 mg Q6H PRN ORAL For Pain 12/15/16 11:30 12/22/16 11:29 Vancomycin HCl 1 ea 1 ea DAILY PRN MISC Per rx protocol 12/09/16 05:45 01/08/17 05:44 Vancomycin HCl/ Dextrose (Vancomycin/D5W) 275 ml @ 183.708 mls/hr Q24H IVPB 12/15/16 10:00 12/20/16 09:59 12/15/16 11:07 Zolpidem Tartrate (Ambien) 5 mg HSPRN PRN ORAL Insomnia 12/09/16 05:45 01/08/17 05:44 SHYAM NAVA Dec 15, 2016 17:41
[2016-12-15] MEDS: Heparin 5000 units/ml inj SUBQ SCH (21:20)
[2016-12-16] VITALS: BP 138/52
[2016-12-16 04:00] VITALS: BP 139/67
--- NOTE | 2016-12-16 05:29 | Operative Note - Dictated ---
DATE OF OPERATION: 12/15/2016 PREOPERATIVE DIAGNOSIS: Right distal fibula, osteomyelitis with retained hardware. POSTOPERATIVE DIAGNOSIS: Right distal fibula, osteomyelitis with retained hardware. PROCEDURE: Right distal fibula removal of hardware, and bone biopsy. SURGEON: Pedrito Siddiqui D.P.M. ADDITIONAL SURGEON: Adams Pham D.P.M. ANESTHESIOLOGIST: Fabian Maurice M.D. ANESTHESIA: General. SPECIMEN: Plate and 7 screws removed from the lateral ankle. COMPLICATIONS: None. CONDITION: Stable. ESTIMATED BLOOD LOSS: 20 mL. DRAINS: None. IMPLANTS USED: None. DESCRIPTION OF PROCEDURE: The patient was brought into the operating room and was assisted onto the operating table in supine position. No tourniquet was utilized during the surgery. The right ankle was prepped and draped in the usual aseptic manner. A time-out was performed. An incision was made along the right lateral ankle at the site of the previous surgical incision. Incision was deepened down to the bone and hardware and bleeding vessels were cauterized. At this time, seven screws and a plate were removed from the right lateral ankle. The patient had right lateral ankle wound which was excised. The bone beneath the wound was also soft and at this time, a bone biopsy was performed in that area. Intraoperative fluoro was utilized and no hardware was retained at the distal fibula. The area was irrigated with normal saline with triple antibiotic. At that time, 3-0 Vicryl was used to close the deeper structures, 4-0 Vicryl was used to close subcutaneous skin, 3-0 nylon was used to close the skin. The incision site was injected with 7 mL of 0.25% Marcaine plain. The area was dressed with Adaptic 4 x 4 gauze, ABD pad, Kerlix, and Gustavo wrap. The patient tolerated the procedure well without any complications. She was then transferred to the postoperative care unit with vitals stable. After a period of observation, the patient was taken back to her room. Pedrito Siddiqui DPM DR: JASON JOB#: [id number] CC: DOUGLAS
[2016-12-16] MEDS: Levothyroxine 25mcg tab ORAL SCH (05:42)
[2016-12-16] MEDS: NovoLOG Insulin Flexpen SUBQ SCH ×2 (05:43→12:09)
[2016-12-16 08:00] VITALS: BP 141/63
[2016-12-16] MEDS: Docusate 100mg cap ORAL SCH (09:00)
[2016-12-16] MEDS: Aspirin EC 81mg tab ORAL SCH (09:36)
[2016-12-16] MEDS: Donepezil 10mg tab ORAL SCH (09:36)
[2016-12-16] MEDS: Bystolic 2.5mg Tab ORAL SCH (09:36)
[2016-12-16] MEDS: Sertraline 50mg tab ORAL SCH (09:37)
[2016-12-16] MEDS: Memantine 10mg tab ORAL SCH (09:37)
[2016-12-16] MEDS: Nystatin Powder 100,000 units/gm 15gm TOPIC SCH ×2 (09:38→12:10)
[2016-12-16] MEDS: Heparin 5000 units/ml inj SUBQ SCH (09:39)
[2016-12-16] MEDS: Vancomycin 750mg/D5W 275ml IVPB SCH ×2 (09:40)
--- NOTE | 2016-12-16 10:28 | Podiatric Progress Note ---
Assessment/Plan Patient Chelsie Rolon is a 76 year old female who was admitted on Dec 08, 2016 at 19:02 with right lateral ankle infected ulcer Problems: (1) Ulcer of right ankle (2) Osteomyelitis of ankle or foot, right, acute (3) Complication of internal fixation device (4) Diabetes mellitus Assessment/Plan Patient is one day status post right ankle hardware removal and bone biopsy - Patient had one temperature of 100.9 early this morning. Monitor for improvement - Bone biopsy results pending - Keep dressings clean, dry, and in tact - Will remove sutures in 2 weeks - Okay for patient to start limited weight bearing on the right foot with walker - Continue antibiotic recommendations per infectious disease specialist - Begin discharge planning. Will follow up as outpatient Subjective Day of Surgery: 12/15/16 Reason for consult Right lateral ankle infected ulcer Procedure Performed Right distal fibula hardware removal and bone biopsy Allergies: Coded Allergies: MORPHINE (Verified Adverse Reaction, Severe, PARADOXICAL REACTION, 10/08/12 ) Subjective Patient does not speak Polish but is resting comfortably in bed Objective Exam Last 24 Hour Vital Signs Date Time Temp Pulse Resp B/P Pulse Ox O2 Delivery O2 Flow Rate FiO2 12/16/16 09:38 74 139/67 12/16/16 04:00 100.9 74 18 139/67 92 Room Air 12/16/16 00:00 98.8 70 18 138/52 93 Room Air 12/15/16 20:00 97.5 74 20 151/59 97 Room Air 12/15/16 18:45 108 147/89 12/15/16 16:13 97.2 60 18 126/72 97 Nasal Cannula 2.0 12/15/16 13:09 18 12/15/16 12:57 97.0 61 18 110/63 95 Nasal Cannula 2.0 12/15/16 10:24 97.4 76 20 127/83 97 Nasal Cannula 3.0 Laboratory Tests Test 12/16/16 05:00 Urine Eosinophils Few Microbiology Date/Time Source Procedure Growth Status 12/08/16 19:20 Blood Blood Culture - Final NO GROWTH AFTER 5 DAYS Complete 12/08/16 21:40 Nasal Nares MRSA Culture - Final NO METHICILLIN RESISTANT STAPH AUREUS... Complete 12/08/16 21:40 Rectum VRE Culture - Final NO VANCOMYCIN RESISTANT ENTEROCOCCUS ... Complete Exam Narrative Right ankle dressings are clean, dry, and in tact. No strikethrough noted. leg is elevated on two pillows with heel protector. IMAGING (BONE SCAN): Impression: Right lower extremity hyperemia. 3 phase increased activity in region of distal aspect of right fibula compatible with hardware loosening and/or osteomyelitis. Pedrito Siddiqui DPM Dec 16, 2016 10:28
--- NOTE | 2016-12-16 10:42 | General Progress Note ---
Assessment/Plan Status: stable Status Narrative post op day 1 Assessment/Plan status: - Renal failure, likely diabetic nephropathy / HTN - Cellulitis in diabetic foot right LE - Decubitus ulcer - Dementia - Diabetes mellitus - Nonpressure ulcer to level of fascia right lateral ankle - S/P ORIF right ankle Plan: no labs today- Post Op 12/15/16 Adjust BP meds- Avoid Nephrotoxics- UA Urine studies- Monitor renal parameters- due surgery today and removal of hardwear Per orders ? DC planning?? Subjective ROS Limited/Unobtainable: No Constitutional: Reports: malaise Allergies: Coded Allergies: MORPHINE (Verified Adverse Reaction, Severe, PARADOXICAL REACTION, 10/08/12 ) Objective Last 24 Hour Vital Signs Date Time Temp Pulse Resp B/P Pulse Ox O2 Delivery O2 Flow Rate FiO2 12/16/16 09:38 74 139/67 12/16/16 04:00 100.9 74 18 139/67 92 Room Air 12/16/16 00:00 98.8 70 18 138/52 93 Room Air 12/15/16 20:00 97.5 74 20 151/59 97 Room Air 12/15/16 18:45 108 147/89 12/15/16 16:13 97.2 60 18 126/72 97 Nasal Cannula 2.0 12/15/16 13:09 18 12/15/16 12:57 97.0 61 18 110/63 95 Nasal Cannula 2.0 Intake and Output 12/15/16 12/16/16 19:00 07:00 Intake Total 500 ml 240 ml Output Total 440 ml 1175 ml Balance 60 ml -935 ml Intake Oral 240 ml IV Total 500 ml Output Urine Total 400 ml 1175 ml Estimated Blood Loss 40 ml # Bowel Movements 1 Laboratory Tests 12/16/16 05:00: Urine Eosinophils Few Height (Feet): 5 Height (Inches): 0.00 Weight (Pounds): 160 General Appearance: no apparent distress Objective PE not change BERTRAM CASTAÑEDA Dec 16, 2016 10:42
--- NOTE | 2016-12-16 11:39 | Consultation ---
DATE OF CONSULTATION: REQUESTING PHYSICIAN: Zahra Barrera M.D. CONSULTING PHYSICIAN: Barry Leal DPM. REASON FOR CONSULTATION: Cellulitis right lower extremity. HISTORY OF PRESENT ILLNESS: The patient is a 76-year-old female, who was admitted to [facility] on 12/08/2016 for cellulitis and the presence of diabetes mellitus. The patient states that the condition has been there for several weeks and unable to provide any further history. Remaining history is obtained through chart review. PAST MEDICAL HISTORY: Significant for diabetes mellitus and dementia. PAST SURGICAL HISTORY: Unknown. ALLERGIES: She is allergic to morphine. FAMILY HISTORY: Noncontributory. SOCIAL HISTORY: Noncontributory. REVIEW OF SYSTEMS: Limited. The patient states that she has minimal pain and is unable to provide any further review of systems. PHYSICAL EXAMINATION: VITAL SIGNS: Temperature is 98.1, pulse is 68, respirations 20, blood pressure is 134/72, and saturating 94% on room air. EXTREMITIES: Lower extremity physical exam, vascular palpable pedal pulses noted bilaterally. Feet are equally warm. Mild edema noted on the right lower extremity. DERMATOLOGICAL: There is a full-thickness ulceration noted on the lateral aspect of the right ankle. Maceration is noted. There is pain upon palpation of the site. There is exposed hardware noted. Periwound skin is erythematous. NEUROLOGICAL: Protective threshold intact. MUSCULOSKELETAL: Limited range of motion of the right ankle joint. IMAGING: Ankle x-ray taken of the right notes postsurgical and posttraumatic changes including a hardware. No acute fractures are noted. Arterial ultrasound is within normal limits on this admission. LABORATORY DATA: White blood cell count is 10.3, hemoglobin and hematocrit is 12.1 and 37.1, and platelet count is 164,000. Potassium is 5.0, glucose is 258, and creatinine is 1.4. ASSESSMENT: 1. Cellulitis right lower extremity. Possible hardware infection. 2. Pressure ulcer to the level of fascia right lateral ankle. 3. Diabetes mellitus. 4. Difficulty walking. 5. Status post open reduction and internal fixation of the right ankle. PLAN: 1. Continue IV antibiotics as ordered. 2. We will order wound care. 3. Bone scan to evaluate for osteo. MRI contraindicated due to hardware present. 4. Arterial ultrasound reviewed as well x-rays and venous ultrasound. 5. We will follow. Thank you for the courtesy of this consultation. Barry Leal D.P.M. DR: KAMRON JOB#: [id number] CC:
[2016-12-16 12:00] VITALS: BP 148/61
--- NOTE | 2016-12-16 13:18 | Wound Care Consultation ---
Wound Assessment Wound Assessment #1: Wound Number: #1 Wound Present on Admission: Yes New Wound: No Status Change of Wound: No Wound Location Body Site: sacral Wound Type: pressure ulcer Ewelina Test: Does not Ewelina Pressure Ulcer Stage: I Wound Length: 1.0 Wound Width: 1.0 Percent of Wound [place]/Red: 100 Wound Drainage Amount: None Wound Drainage Odor: None/Absent Tissue Surrounding Wound: Intact Wound General Appearance: Reddened, Open to air Wound Assessment #2: Wound Number: #2 Wound Present on Admission: No New Wound: No Status Change of Wound: No Wound Location Body Site Modif: left Wound Location Body Site: breast fold Wound Type: other - intertrigo Percent of Wound [place]/Red: 100 Wound Drainage Amount: None Wound Drainage Odor: None/Absent Tissue Surrounding Wound: Erythemic Wound General Appearance: Reddened, Open to air Wound Assessment #3: Wound Number: #3 Wound Present on Admission: No New Wound: No Status Change of Wound: No Wound Location Body Site Modif: right, lower Wound Location Body Site: abdomen Wound Type: scab - dry scabs Ewelina Test: Does not Ewelina Wound Drainage Amount: None Wound Drainage Odor: None/Absent Tissue Surrounding Wound: Intact Wound General Appearance: Open to air Wound Assessment #4: Wound Number: #4 Wound Present on Admission: Yes New Wound: No Status Change of Wound: No Wound Location Body Site Modif: right Wound Location Body Site: breast fold Wound Type: other - intertrigo Wound Drainage Amount: None Wound Drainage Odor: None/Absent Tissue Surrounding Wound: Intact Wound General Appearance: Open to air, Clean/Dry Wound Comment #1 Sacral pressure ulcer stage I. #2 Left and right breast fold intertrigo. #3 Right lower abdomen dry scabs scattered. Recommendation -Local wound care as ordered. -Turn and reposition. -Keep clean and dry. -low air loss overlay. -offload affected sites. -avoid shear and friction. -assess and notify MD if any change is noted. upon reassessment noted sacral site intact noted decrease in redness, no c/o pain to site.repositioned to offload area. unable to assess right ankle site , patient has s/p hardware removal of right ankle and has dry intact dressing as MD ordered. noted right lower abdomen dry intact scabs.no odor no drainage. JEOVANY HOGUE Dec 16, 2016 13:18
--- NOTE | 2016-12-16 13:27 | Infectious Diseases Prog Note ---
Assessment/Plan Assessment/Plan ASSESSMENT: 76 y/o female with: // Right medial ankle cellulitis / osteomyelitis / hardware infection - SP hardware removal 12/15 - path: pending - 3P bone scan: 3 phase increased activity in region of distal aspect of right fibula compatible with hardware loosening and/or osteomyelitis - XR: surgical hardware seen reducing old healed distal fibular and medial malleolar fractures. No acute fractures. No dislocations. Bones are demineralized. - elevated ESR, CRP - h/o right ankle ORIF // Winter intertrigo // Low grade fever x1, no leukocytosis // Dementia // DM // h/o CAD // No ABX allergies // Full Code PLAN: - DC planning for IV vancomycin + cefepime through 01/26/14 ( 6 weeks IV ABX from date of HWR ) - weekly CBC, CMP, ESR, CRP while on IV ABX - f/u path - monitor CBC, temperatures - monitor BMP - wound care Subjective Allergies: Coded Allergies: MORPHINE (Verified Adverse Reaction, Severe, PARADOXICAL REACTION, 10/08/12 ) Subjective low grade fever x1. no new complaint Objective Vital Signs Last 24 Hour Vital Signs Date Time Temp Pulse Resp B/P Pulse Ox O2 Delivery O2 Flow Rate FiO2 12/16/16 12:00 98.0 75 20 148/61 96 Room Air 12/16/16 09:38 74 139/67 12/16/16 08:00 97.3 72 18 141/63 98 Room Air 12/16/16 04:00 100.9 74 18 139/67 92 Room Air 12/16/16 00:00 98.8 70 18 138/52 93 Room Air 12/15/16 20:00 97.5 74 20 151/59 97 Room Air 12/15/16 18:45 108 147/89 12/15/16 16:13 97.2 60 18 126/72 97 Nasal Cannula 2.0 Height (Feet): 5 Height (Inches): 0.00 Weight (Pounds): 160 General Appearance: no acute distress Respiratory/Chest: no respiratory distress Cardiovascular: normal rate, regular rhythm Abdomen: normal bowel sounds, soft, non tender, non distended Laboratory Tests Test 12/16/16 05:00 Urine Eosinophils Few Current Medications Medications (Trade) Dose Ordered Sig/Rina Route PRN Reason Start Time Stop Time Status Last Admin Dose Admin Acetaminophen (Tylenol) 650 mg Q4H PRN ORAL fever 12/09/16 05:45 01/08/17 05:44 Amlodipine Besylate (Norvasc) 2.5 mg BID ORAL 12/14/16 18:00 01/13/17 17:59 12/16/16 09:38 Aspirin (Ecotrin) 81 mg DAILY ORAL 12/09/16 09:00 01/08/17 08:59 12/16/16 09:36 Cefepime HCl/ Dextrose (Maxipime/D5W) 55 ml @ 110 mls/hr Q24H IV 12/16/16 14:00 12/23/16 13:59 Clonidine HCl (Catapres) 0.1 mg EVERY 6 HOURS PRN ORAL SBP>160 12/08/16 22:15 01/07/17 22:14 12/14/16 16:48 Dextrose (Dextrose 50%) STAT PRN IV Hypoglycemia 12/09/16 05:45 01/08/17 05:44 Diphenhydramine HCl (Benadryl) 25 mg Q6H PRN IVP Itching 12/08/16 22:45 01/07/17 22:44 12/12/16 19:39 Docusate Sodium (Colace) 100 mg TWICE A DAY ORAL 12/14/16 18:00 01/13/17 17:59 12/16/16 09:00 Donepezil HCl (Aricept) 10 mg DAILY ORAL 12/09/16 09:00 01/08/17 08:59 12/16/16 09:36 Heparin Sodium (Porcine) 5000 units 5,000 units EVERY 12 HOURS SUBQ 12/15/16 21:30 01/14/17 21:29 Insulin Aspart (NovoLOG) BEFORE MEALS AND HS SUBQ 12/09/16 06:30 01/08/17 06:29 12/16/16 12:09 Levothyroxine Sodium (Synthroid) 25 mcg ACBREAKFAST ORAL 12/09/16 06:30 01/08/17 06:29 12/16/16 05:42 Memantine (Namenda) 10 mg DAILY ORAL 12/09/16 09:00 01/08/17 08:59 12/16/16 09:37 Nebivolol (Bystolic) 5 mg DAILY ORAL 12/09/16 09:00 01/08/17 08:59 12/16/16 09:36 Nystatin (Nystop Powder) 1 applic THREE TIMES A DAY TOPIC 12/16/16 13:00 01/15/17 12:59 UNV Ondansetron HCl (Zofran) 4 mg Q6H PRN IVP Nausea & Vomiting 12/09/16 05:45 01/08/17 05:44 Pantoprazole 40 mg 40 mg DAILY ORAL 12/14/16 18:00 01/13/17 17:59 12/16/16 09:36 Patient Own Medication (Patient's Own Med) 1 ea DAILY BOTH EYES 12/13/16 09:00 01/12/17 08:59 12/16/16 09:38 Polyethylene Glycol (Miralax) 17 gm HSPRN PRN ORAL Constipation 12/09/16 05:45 01/08/17 05:44 Quetiapine Fumarate (SEROquel) 25 mg BEDTIME ORAL 12/12/16 21:00 01/11/17 20:59 12/15/16 21:18 Sertraline HCl (Zoloft) 50 mg DAILY ORAL 12/13/16 09:00 01/12/17 08:59 12/16/16 09:37 Tramadol HCl (Ultram) 50 mg Q6H PRN ORAL For Pain 12/15/16 11:30 12/22/16 11:29 Vancomycin HCl (Vanco rx to dose) 1 ea DAILY PRN MISC Per rx protocol 12/09/16 05:45 01/08/17 05:44 Vancomycin HCl/ Dextrose (Vancomycin/D5W) 275 ml @ 183.708 mls/hr Q24H IVPB 12/15/16 10:00 12/20/16 09:59 12/16/16 09:40 Vitamin A/Vitamin D (A & D Oint) 1 applic EVERY 12 HOURS TOPIC 12/16/16 21:00 01/15/17 20:59 UNV Zolpidem Tartrate (Ambien) 5 mg HSPRN PRN ORAL Insomnia 12/09/16 05:45 01/08/17 05:44 WENDY CHAPMAN Dec 16, 2016 13:27
[2016-12-16] MEDS ORDERED: CEFEPIME-D1 GM/50 ML IVPB (13:28)
[2016-12-16] MEDS ORDERED: VANCOMYCIN1 GM/2502 IVPB (13:28)
[2016-12-16] MEDS ORDERED: Cefepime HCl 1 GM in D5W 55 ML IV SCH (14:00)
[2016-12-16] MEDS ORDERED: Nystatin Powder 100,000 units/gm 15gm TOPIC SCH (14:00)
--- NOTE | 2016-12-16 14:57 | Cardiology Report ---
APPROVED REPORT EKG Measurement Heart [id number] Normal sinus rhythm Normal ECG
[2016-12-16 16:00] VITALS: BP 134/72
--- NOTE | 2016-12-16 17:25 | Pulmonology Progress Note ---
Assessment/Plan Problems: (1) Cellulitis in diabetic foot (2) Decubitus ulcer (3) Dementia (4) Diabetes mellitus Assessment/Plan wound care iv antibioitcs f/u electrolytes f/u by podiatry Subjective ROS Limited/Unobtainable: Yes Constitutional: Reports: anorexia, fatigue Skin: Reports: rash, ulcer Allergies: Coded Allergies: MORPHINE (Verified Adverse Reaction, Severe, PARADOXICAL REACTION, 10/08/12 ) Objective Last 24 Hour Vital Signs Date Time Temp Pulse Resp B/P Pulse Ox O2 Delivery O2 Flow Rate FiO2 12/16/16 16:00 97.2 70 20 134/72 97 Room Air 12/16/16 12:00 98.0 75 20 148/61 96 Room Air 12/16/16 09:38 74 139/67 12/16/16 08:00 97.3 72 18 141/63 98 Room Air 12/16/16 04:00 100.9 74 18 139/67 92 Room Air 12/16/16 00:00 98.8 70 18 138/52 93 Room Air 12/15/16 20:00 97.5 74 20 151/59 97 Room Air 12/15/16 18:45 108 147/89 Intake and Output 12/15/16 12/16/16 19:00 07:00 Intake Total 500 ml 240 ml Output Total 440 ml 1175 ml Balance 60 ml -935 ml Intake Oral 240 ml IV Total 500 ml Output Urine Total 400 ml 1175 ml Estimated Blood Loss 40 ml # Bowel Movements 1 General Appearance: no acute distress HEENT: normocephalic, atraumatic, PERRL Respiratory/Chest: chest wall non-tender, decreased breath sounds, accessory muscle use Breasts: no masses Cardiovascular: normal peripheral pulses, normal rate, regular rhythm, no JVD Abdomen: normal bowel sounds, soft, non tender, no organomegaly, non distended Genitourinary: normal external genitalia Skin: rash, lesions, ulcers 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: camp boss II-XII grossly normal, responsive, disoriented, depressed affect Laboratory Tests 12/16/16 05:00: Urine Eosinophils Few 12/16/16 14:48: Urine Eosinophils None seen SHYAM NAVA Dec 16, 2016 17:25
[2016-12-16] MEDS ORDERED: Vitamin A&D Oint 2oz Tube TOPIC SCH (21:00)
--- NOTE | 2016-12-18 13:48 | Discharge Summary ---
Discharge Summary Hospital Course Date of Admission Dec 08, 2016 at 19:02 Date of Discharge Dec 16, 2016 at 16:00 Admitting Diagnosis diabetic foot cellulitis DAVID Rolon is a 76 year old female who was admitted on Dec 08, 2016 at 19:02 for Diabetic Foot Cellulitis Hospital Course [id number] Discharge Discharge Disposition Patient was discharged to SNF/Subacute Facility(03) Discharge Diagnoses: Angelika Pearce NP Dec 18, 2016 13:48
--- NOTE | 2016-12-19 00:40 | Discharge Summary 2 SIG ---
DATE OF ADMISSION: 12/08/2016 DATE OF DISCHARGE: 12/16/2016 CONSULTANTS: 1. Pedrito Siddiqui D.P.M. 2. Duarte Mcgregor M.D. BRIEF HOSPITAL COURSE: The patient is a 76-year-old female with history of dementia, bedbound, and diabetes, presented to ER due to worsening left foot ulcer. The patient was seen by her flat examiner, who recommended the patient needs hospitalization and IV antibiotics. Dr. Leal was consulted. The patient has cellulitis on the right foot and has history of ORIF on the right ankle. She came in with a nonpressure ulcer to the level of the fascia on the right ankle. Bone scan was done and was positive for osteomyelitis. Dr. Wynn was consulted. The patient was given IV vancomycin and cefepime. On 12/15/2016, the patient underwent right distal femoral removal of hardware with bone biopsy. Dr. Fernandez was consulted. The patient has renal failure, which is likely secondary to diabetic nephropathy and hypertension. Wound dressings were clean, dry, and intact. She was instructed to be able to start limited weightbearing on the right foot with a walker. She had episode of low-grade fever without leukocytosis postoperatively and was advised by ID to continue six weeks of IV antibiotic from date of hardware removal. She was eventually discharged to residential. FINAL DIAGNOSES: 1. Cellulitis of the right ankle with acute osteomyelitis. 2. Status post hardware removal. 3. Winter intertrigo present on admission. 4. Dementia. 5. Diabetes mellitus. 6. Sacral stage I pressure ulcer and breast intertrigo present on admission. 7. Pressure ulcer at the level of fascia and right lateral ankle. 8. Difficulty walking . 9. Status post open reduction and internal fixation of the right ankle. Zahra Barrera M.D. I have been assigned to dictate discharge summary on this account and I was not involved in the patient's management. Angelika Pearce N.P. DR: Audra JOB#: [id number] CC: DOUGLAS
--- NOTE | 2016-12-24 14:34 | Diagnostic Imaging Report ---
Indications: Right ankle hardware removal Technique: Above procedure including fluoroscopy performed by Dr. Siddiqui. Portable intraoperative AP spot film image of the right ankle obtained. Findings: Comparison: 12/08/16 Fixation plate and anchoring screws previously within the distal fibula have been removed. 2 anchoring screws bridging the distal tibia/medial malleolus remain in place. Impression: Surgical changes as described
== END 2016-12-16 16:00 | DRG 478 ==
LOC: EMR 18:58 → 4W 19:02 → EDBEDREQ 19:09
PROC: 0QPJ04Z Removal of Internal Fixation Device from Right Fibula, Open Approach (ICD-10-PCS; principal; 2016-12-15 08:00)
PROC: 0QBJ0ZX Excision of Right Fibula, Open Approach, Diagnostic (ICD-10-PCS; principal; 2016-12-15 08:00)
DX: M86.171 Other acute osteomyelitis, right ankle and foot (principal); N17.9 Acute kidney failure, unspecified; L89.151 Pressure ulcer of sacral region, stage 1; M86.10 Other acute osteomyelitis, unspecified site; E11.628 Type 2 diabetes mellitus with other skin complications; F03.90 Unspecified dementia, unspecified severity, without behavioral disturbance, psychotic disturbance, mood disturbance, and anxiety; E11.69 Type 2 diabetes mellitus with other specified complication; E11.21 Type 2 diabetes mellitus with diabetic nephropathy; B37.2 Candidiasis of skin and nail; I25.10 Atherosclerotic heart disease of native coronary artery without angina pectoris; L03.116 Cellulitis of left lower limb; L97.319 Non-pressure chronic ulcer of right ankle with unspecified severity; R26.2 Difficulty in walking, not elsewhere classified; Z88.6 Allergy status to analgesic agent; L30.4 Erythema intertrigo; Z95.5 Presence of coronary angioplasty implant and graft
CPT/HCPCS: 36415; 71010; 76000; 76775; 78315; 80053; 80061; 80202; 81001; 82533; 82550; 82553; 82962; 82977; 83036; 83605; 83735; 83880; 83930; 84100; 84300; 84439; 84443; 84481; 84550; 85025; 85651; 86140; 87040; 87081; 89050; 93005; 93925; 93970; 94003; 94150; J1815; J2405

== ENCOUNTER 2017-01-09 21:49 | Inpatient (IN) | payer MEDICARE, OTHER ==
[~2017-01-09] VITALS: Ht 170.2 cm; Wt 81.6 kg
[~2017-01-09 21:49] MED LIST changes: +CEFEPIME-D1 GM/50 ML IVPB; +CRESTOR10 M2 ORAL; +DOCUSATE SODIU100 MG ORAL; +EDARBYCLOR 40-1 EACH ORAL; +FOSAMAX70 MG ORAL; +MULTIVITAMINS1 EAC2 ORAL; +NAMZARIC 21 MG1 EACH PO; +NEXIUM20 M1 ORAL; +NOVOLOG100 UNIT/4 SQ; +PAZEO2.5 ML OP; +PLAVIX75 MG ORAL; +TORSEMIDE10 MG PO; +ULORIC40 MG ORAL; +VANCOMYCIN1 GM/2502 IVPB
[2017-01-09 23:06] LABS: MEAN CORPUSCULAR HEMOGLOBIN 29.2 PG (27.0-31.0); MEAN CORPUSCULAR HGB CONC 32.5 G/DL (32.0-36.0); MEAN CORPUSCULAR VOLUME 90 FL (80-99); MEAN PLATELET VOLUME 6.1 FL (6.5-10.1); PLATELET COUNT 83 K/UL (150-450); RED BLOOD COUNT 3.17 M/UL (4.20-5.40); WHITE BLOOD COUNT 7.5 K/UL (4.8-10.8)
[2017-01-09 23:23] LABS: TROPONIN I < 0.30 ng/mL (<=0.30)
[2017-01-09 23:24] LABS: ANISOCYTOSIS 1+; BAND NEUTROPHILS % (MANUAL) 0 % (0-8); BASOPHILS % (MANUAL) 2 % (0-2); EOSINOPHILS % (MANUAL) 3 % (0-3); HYPOCHROMASIA 1+; LYMPHOCYTES % (MANUAL) 16 % (20-45); NEUTROPHILS % (MANUAL) 71 % (45-75); PLATELET ESTIMATE DECREASED; PLATELET MORPHOLOGY NORMAL; TOTAL CELLS COUNTED 100
[2017-01-09 23:26] LABS: ALANINE AMINOTRANSFERASE 12 U/L (3-33); ANION GAP 14 (5-15); ASPARTATE AMINO TRANSFERASE 16 U/L (5-40); CALCIUM 8.5 mg/dL (8.6-10.2); CARBON DIOXIDE 25 mEQ/L (20-30); CHLORIDE 104 mEQ/L (98-107); CREATININE 4.4 mg/dL (0.5-0.9); HEMOLYSIS 2; POTASSIUM 5.4 mEQ/L (3.4-4.9); SODIUM 143 mEQ/L (135-145); TOTAL PROTEIN 5.8 g/dL (6.6-8.7)
[2017-01-09 23:36] LABS: CKMB < 1.5 ng/mL (< 3.8)
[2017-01-10] VITALS (7 sets, daily range): BP systolic 119–160; BP diastolic 62–99
[2017-01-10] MEDS ORDERED: Sodium Polystyrene Sulfonate 15gm Powder ORAL ONE (00:30)
[2017-01-10] MEDS ORDERED: NEXIUM40 MG ORAL (01:07)
[2017-01-10] MEDS ORDERED: CEFEPIME-D1 GM/50 ML IVPB (01:07)
[2017-01-10] MEDS ORDERED: NORVASC2.5 MG ORAL (01:07)
[2017-01-10] MEDS ORDERED: NAMENDA10 MG ORAL (01:07)
[2017-01-10] MEDS ORDERED: VANCOMYCIN1 GM/2502 IVPB (01:07)
[2017-01-10] MEDS ORDERED: TYLENOL EXTRA500 MG ORAL (01:07)
[2017-01-10 01:42] LABS: KETONES,URINE NEGATIVE (NEGATIVE); LEUKOCYTE ESTERASE ,URINE NEGATIVE (NEGATIVE); NITRITE,URINE NEGATIVE (NEGATIVE); PH,URINE 6 (4.5-8.0); PROTEIN,URINE 3+ (NEGATIVE); UROBILINOGEN,URINE NORMAL MG/DL (0.0-1.0)
--- NOTE | 2017-01-10 01:53 | Emergency Room Report ---
History of Present Illness General Chief Complaint: Abnormal Labs Source: Patient Present Illness HPI Patient is a 76-year-old female presented after having abnormal lab values. Patient recently been treated for infection to right foot with osteomyelitis with antibiotics. Patient been noted to have increased a BUN creatinine. Patient was noted to have gradual onset of symptoms. Patient was sent for further evaluation treatment. The patient had history is limited by patient's mental status and poor historian Allergies: Coded Allergies: MORPHINE (Verified Adverse Reaction, Severe, PARADOXICAL REACTION, 10/08/12 ) Patient History Past Medical History: see triage record Reviewed Nursing Documentation: PMH: Agreed, PSxH: Agreed Nursing Documentation-PMH Hx Cardiac Problems: Yes - Stents Hx Hypertension: Yes Hx Pacemaker: No Hx Asthma: No Hx COPD: No Hx Diabetes: Yes Hx Cancer: No Hx Gastrointestinal Problems: Yes - Cholecystecomy Hx Dialysis: No Hx Neurological Problems: Yes - Dementia Hx Cerebrovascular Accident: No Hx Dementia: Yes Hx Alzheimer's Disease: Yes Hx Seizures: No Hx Memory Loss: Yes Hx Concentration Difficulty: Yes Hx Tremors: Yes Hx Dizziness: Yes Hx Headaches: Yes Hx Weakness: Yes Review of Systems All Other Systems: negative except mentioned in HPI Physical Exam Vital Signs Date Time Temp Pulse Resp B/P Pulse Ox O2 Delivery O2 Flow Rate FiO2 01/09/17 21:56 99.0 68 20 168/58 98 Room Air Sp02 EP Interpretation: reviewed, normal General Appearance: normal inspection, well appearing, no apparent distress, alert Head: atraumatic ENT: normal ENT inspection, hearing grossly normal, normal voice Neck: normal inspection, full range of motion, supple, no bony tend Respiratory: normal inspection, lungs clear, normal breath sounds, no respiratory distress, no retraction, no wheezing Cardiovascular #1: regular rate, rhythm, no edema Gastrointestinal: normal inspection, normal bowel sounds, non tender, soft, no guarding, no hernia Genitourinary: no CVA tenderness Musculoskeletal: normal inspection, back normal, normal range of motion Neurologic: normal inspection, alert, responsive, pneumatic drum sander III-XII nml as tested, speech normal Psychiatric: normal inspection, judgement/insight normal, mood/affect normal Skin: normal color, no rash, other - right leg wound healing, no erythema Medical Decision Making Diagnostic Impression: Primary Impression: Hyperkalemia Additional Impression: Acute kidney injury ER Course Patient presented for abnormal laboratories. Differential diagnosis included was not limited to laboratory error, prerenal azotemia, acute tubular necrosis, nephrotoxic drugs, among others.Because of complexity of patient's case laboratory testing and imaging studies were ordered. Laboratory testing was notable for hyperkalemia as well as elevated BUN/ creatinine. The patient was given Kayexalate. EKG showed normal sinus rhythm with a rate of [address] or T wave changes there is no peaking of the T-wave noted.Dr. camp was contacted for inpatient management EKG Diagnostic Results Rate: normal - 74 Rhythm: NSR ST Segments: no acute changes Last Vital Signs Date Time Temp Pulse Resp B/P Pulse Ox O2 Delivery O2 Flow Rate FiO2 01/10/17 00:50 99.0 76 20 119/76 98 Room Air Status: unchanged Disposition: ADMITTED INPATIENT Condition: Serious Referrals: NOT CHOSEN CLAIRE/,REFERRING (PCP) Alex Donato Jan 10, 2017 01:53
[2017-01-10 01:55] LABS: APPEARANCE,URINE CLEAR
[2017-01-10 01:56] LABS: AMORPHOUS SEDIMENT,UR FEW /LPF; BACTERIA,URINE FEW /HPF; SQUAMOUS EPITHELIAL CELL,UR FEW /LPF (NONE/OCC); WBC,URINE 0-2 /HPF (0 - 2)
[2017-01-10] MEDS ORDERED: Miralax 17gm pkt ORAL PRN (09:45)
[2017-01-10] MEDS ORDERED: Mylanta II UD 30ml ORAL PRN (09:45)
[2017-01-10] MEDS ORDERED: Nitroglycerin Subl 0.4mg tab (Bottle Of 25) SL PRN (09:45)
[2017-01-10] MEDS ORDERED: DuoNeb 0.5-3(2.5)mg/3ml neb HHN PRN (09:45)
--- NOTE | 2017-01-10 10:03 | Diagnostic Imaging Report ---
Indication: SOB Technique: XRAY CHEST 1 V Comparison:12/08/2016 Findings: The patient is rotated. The cardio mediastinal silhouette is unchanged. Lungs are clear. No pleural fluid. A right arm PICC line is in place with the tip in the superior vena cava. Impression: Cardio megaly. Right arm PICC line. No acute abnormality.
[2017-01-10] MEDS: Levothyroxine 25mcg tab ORAL SCH (10:38)
[2017-01-10] MEDS: Memantine 10mg tab ORAL SCH (10:38)
[2017-01-10] MEDS: Donepezil 10mg tab ORAL SCH (10:38)
[2017-01-10] MEDS ORDERED: Bystolic 2.5mg Tab ORAL SCH (11:00)
[2017-01-10] MEDS: NovoLOG Insulin Flexpen SUBQ SCH ×3 (11:30→20:36)
[2017-01-10] MEDS ORDERED: NovoLOG Insulin Flexpen SUBQ SCH (11:30)
--- NOTE | 2017-01-10 12:39 | Consultation ---
Consult Note Consult Note Patient is a 76-year-old female presented after having abnormal lab values. Patient recently been treated for infection to right foot with osteomyelitis with antibiotics. Patient been noted to have increased a BUN creatinine. Patient was noted to have gradual onset of symptoms. Patient was sent for further evaluation treatment. The patient had history is limited by patient's mental status and poor historian Allergies: MORPHINE (Verified Adverse Reaction, Severe, PARADOXICAL REACTION, 10/08/12 ) Hx Cardiac Problems: Yes - Stents Hx Hypertension: Yes Hx Diabetes: Yes Hx Gastrointestinal Problems: Yes - Cholecystecomy Hx Neurological Problems: Yes - Dementia Hx Dementia: Yes Hx Alzheimer's Disease: Yes Hx Seizures: No Hx Memory Loss: Yes Hx Concentration Difficulty: Yes Hx Tremors: Yes Hx Dizziness: Yes Hx Headaches: Yes Hx Weakness: Yes PAST SURGICAL HISTORY: 1. Cholecystectomy. 2. Right ankle surgery. 3. Right elbow surgery. Patient examined- Poor Historian- Data reviewed- Assessment/Plan Status: - Acute renal failure and hyperKalemia - Renal failure, likely diabetic nephropathy / HTN - h/o Cellulitis in diabetic foot right LE - Decubitus ulcer - Dementia - Diabetes mellitus - Nonpressure ulcer to level of fascia right lateral ankle - S/P ORIF right ankle Plan: Fransisca SIDDIQUI Kidney Adjust BP meds- Avoid Nephrotoxics- Urine studies- Monitor renal parameters- Per orders BERTRAM CASTAÑEDA Jan 10, 2017 12:39
--- NOTE | 2017-01-10 12:50 | History and Physical ---
History of Present Illness General Date patient seen: Jan 10, 2017 Reason for Hospitalization: Abnormal Labs Present Illness HPI 76 yo female with pmhx chronic kidney disease osteomylitis lower extremity metatarsal phalangeal digits and joints, half-way resident, debility, presenting to [facility] ER with co weakness. Recent laboratory studies also revealed increased blood urea nitrogen and creatinine levels, a marketing and promotions manager has been requested to evaluate the patients serious medical condition. Patient is being admitted and further diagnostics pending. Patient also has baseline level of dementia and therefore not able to give much history, however discussions with patients daughter reveal that the patient has also been complaining of weakness but denies chest pain or shortness of breath. Allergies: Coded Allergies: MORPHINE (Verified Adverse Reaction, Severe, PARADOXICAL REACTION, 10/08/12 ) Medication History Scheduled Alendronate Sodium* (Fosamax*), 70 MG ORAL ONCE A WEEK, (Reported) Amlodipine Besylate (Norvasc), 2.5 MG ORAL DAILY, (Reported) Amlodipine Besylate* (Amlodipine Besylate*), 2.5 MG PO DAILY, (Reported) Aspirin Ec* (Aspirin Ec*), 81 MG PO DAILY, (Reported) Azilsartan Med/Chlorthalidone (Edarbyclor 40-12.5 Mg Tablet), 1 TAB ORAL DAILY, (Reported) Bupropion Hcl* (Wellbutrin*), MG ORAL DAILY, (Reported) Cefepime Hcl/D5w (Cefepime-Dextrose 1 Gm/50 Ml), 1 GM IVPB EVERY 12 HOURS Cefepime Hcl/D5w (Cefepime-Dextrose 1 Gm/50 Ml), 1 GM IVPB Q24H, (Reported) Clopidogrel Bisulfate* (Plavix*), 75 MG ORAL DAILY, (Reported) Docusate Sodium* (Docusate Sodium*), 100 MG PO BID, (Reported) Docusate Sodium* (Docusate Sodium*), 100 MG ORAL TWICE A DAY, (Reported) Donepezil Hcl* (Aricept*), 10 MG PO DAILY, (Reported) Esomeprazole Magnesium (Nexium), 40 MG PO DAILY, (Reported) Esomeprazole Magnesium (Nexium), Unknown Dose ORAL DAILY, (Reported) Esomeprazole Magnesium (Nexium), 40 MG ORAL DAILY, (Reported) Febuxostat (Uloric), 40 MG ORAL DAILY, (Reported) Insulin Aspart (Novolog), Unknown Dose SQ AC+HS, (Reported) Insulin Lispro (Humalog), 16 SUBQ BID, (Reported) Insulin Regular, Human* (Novolin R*), 0 SUBQ .SLIDING SCALE, (Reported) Levothyroxine Sodium* (Synthroid*), 25 MCG PO DAILY, (Reported) Lorazepam* (Lorazepam*), 0.5 MG PO TID, (Reported) Memantine HCl/Donepezil HCl (Namzaric 21 Mg-10 Mg Capsule), 1 EACH PO DAILY, ( Reported) Memantine Hcl* (Namenda*), 10 MG PO DAILY, (Reported) Memantine Hcl* (Namenda*), 10 MG ORAL DAILY, (Reported) Multivitamins* (Multivitamins*), 1 TAB ORAL DAILY, (Reported) Nebivolol Hcl (Bystolic*), 5 MG PO DAILY, (Reported) Nph, Human Insulin Isophane* (Novolin N*), 20 SUBQ BID, (Reported) Nph, Human Insulin Isophane* (Novolin N*), 15 UNITS SUBQ DAILY, (Reported) Rosuvastatin Calcium* (Crestor*), 10 MG ORAL DAILY, (Reported) Torsemide* (Demadex*), 10 MG PO DAILY, (Reported) Vancomycin Hcl/D5w (Vancomycin-D5w 1 G/250 Ml), 0.75 GM IVPB Q24H Vancomycin Hcl/D5w (Vancomycin-D5w 1 G/250 Ml), 1 GM IVPB Q24H, (Reported) Scheduled PRN Acetaminophen* (Tylenol Extra Strength*), 650 MG ORAL Q6H PRN for Mild Pain/ Temp > 100.5, (Reported) Miscellaneous Medications Nph, Human Insulin Isophane* (Novolin N*), 5 UNITS SUBQ, (Reported) Olopatadine HCl (Pazeo), 2.5 ML OP, (Reported) Patient History Healthcare decision maker Resuscitation status Full Code Advanced Directive on File Past Medical/Surgical History Past Medical/Surgical History: (1) Complication of internal fixation device (2) Ulcer of right ankle (3) Diabetes mellitus (4) Dementia (5) Osteomyelitis of ankle or foot, right, acute (6) Hyperkalemia (7) Sepsis (8) Pneumonia (9) Acute on chronic renal failure (10) Anemia of chronic kidney failure (11) Respiratory failure with hypoxia Review of Systems Constitutional: Reports: malaise, weakness Musculoskeletal: Reports: joint pain, joint swelling, muscle pain, muscle stiffness Skin: Reports: change in color, lesions, rash Physical Exam General Appearance: lethargic, confused, moderate distress Lines, tubes and drains: peripheral HEENT: normocephalic, atraumatic, PERRL Neck: non-tender, normal alignment, supple Respiratory/Chest: chest wall non-tender, no respiratory distress, no accessory muscle use Breasts: no masses Cardiovascular/Chest: normal peripheral pulses, normal rate, regular rhythm, no JVD Abdomen: normal bowel sounds, non tender, soft, no organomegaly Genitourinary/Rectal: normal genital exam, normal rectal exam Extremities: inflammation, trace edema, pitting Skin Exam: palled, other - openn julceraton lower extermity metatarsal phalangeal digits Neurologic: low 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 boiler 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 II-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 grossly normal, responsive, disoriented Musculoskeletal: atrophy Last 24 Hour Vital Signs Date Time Temp Pulse Resp B/P Pulse Ox O2 Delivery O2 Flow Rate FiO2 01/10/17 12:10 97.0 74 18 158/76 96 Room Air 01/10/17 10:38 61 156/84 01/10/17 07:47 97.2 61 20 156/84 97 Room Air 01/10/17 04:00 72 01/10/17 03:28 99.0 89 19 160/99 98 Room Air 01/10/17 03:16 160/99 01/10/17 03:14 99.0 89 19 160/99 98 Room Air 01/10/17 02:13 99.0 70 19 154/62 98 Room Air 01/10/17 00:50 99.0 76 20 119/76 98 Room Air 01/09/17 21:56 99.0 68 20 168/58 98 Room Air Intake and Output 01/09/17 01/10/17 19:00 07:00 Intake Total 120 ml Output Total 0 ml Balance 120 ml Intake Oral 120 ml Output Urine Total 0 ml Laboratory Tests Test 01/09/17 22:30 01/10/17 01:30 White Blood Count 7.5 K/UL (4.8-10.8) Red Blood Count 3.17 M/UL (4.20-5.40) L Hemoglobin 9.2 G/DL (12.0-16.0) L Hematocrit 28.4 % (37.0-47.0) L Mean Corpuscular Volume 90 FL (80-99) Mean Corpuscular Hemoglobin 29.2 PG (27.0-31.0) Mean Corpuscular Hemoglobin Concent 32.5 G/DL (32.0-36.0) Red Cell Distribution Width 13.0 % (11.6-14.8) Platelet Count 83 K/UL (150-450) L Mean Platelet Volume 6.1 FL (6.5-10.1) L Neutrophils (%) (Auto) % (45.0-75.0) Lymphocytes (%) (Auto) % (20.0-45.0) Monocytes (%) (Auto) % (1.0-10.0) Eosinophils (%) (Auto) % (0.0-3.0) Basophils (%) (Auto) % (0.0-2.0) Differential Total Cells Counted 100 Neutrophils % (Manual) 71 % (45-75) Lymphocytes % (Manual) 16 % (20-45) L Monocytes % (Manual) 8 % (1-10) Eosinophils % (Manual) 3 % (0-3) Basophils % (Manual) 2 % (0-2) Band Neutrophils 0 % (0-8) Platelet Estimate Decreased L Platelet Morphology Normal Hypochromasia 1+ Anisocytosis 1+ Sodium Level 143 mEQ/L (135-145) Potassium Level 5.4 mEQ/L (3.4-4.9) H Chloride Level 104 mEQ/L (98-107) Carbon Dioxide Level 25 mEQ/L (20-30) Anion Gap 14 (5-15) Blood Urea Nitrogen 40 mg/dL (7-23) H Creatinine 4.4 mg/dL (0.5-0.9) H Estimat Glomerular Filtration Rate mL/min (>60) Glucose Level 219 mg/dL (74-106) H Lactic Acid Level 1.20 mmol/L (0.66-2.22) Calcium Level 8.5 mg/dL (8.6-10.2) L Total Bilirubin 0.3 mg/dL (0.0-1.2) Aspartate Amino Transf (AST/SGOT) 16 U/L (5-40) Alanine Aminotransferase (ALT/SGPT) 12 U/L (3-33) Alkaline Phosphatase 80 U/L (35-104) Total Creatine Kinase 22 U/L (26-140) L Creatine Kinase MB < 1.5 ng/mL (< 3.8) Creatine Kinase MB Relative Index 6.8 Troponin I < 0.30 ng/mL (<=0.30) Total Protein 5.8 g/dL (6.6-8.7) L Albumin 2.9 g/dL (3.5-5.2) L Globulin 2.9 g/dL Albumin/Globulin Ratio 1.0 (1.0-2.7) Urine Color Pale yellow Urine Appearance Clear Urine pH 6 (4.5-8.0) Urine Specific Martin 1.010 (1.005-1.035) Urine Protein 3+ (NEGATIVE) H Urine Glucose (UA) 1+ (NEGATIVE) H Urine Ketones Negative (NEGATIVE) Urine Occult Blood 3+ (NEGATIVE) H Urine Nitrite Negative (NEGATIVE) Urine Bilirubin Negative (NEGATIVE) Urine Urobilinogen Normal MG/DL (0.0-1.0) Urine Leukocyte Esterase Negative (NEGATIVE) Urine RBC 5-10 /HPF (0 - 2) H Urine WBC 0-2 /HPF (0 - 2) Urine Squamous Epithelial Cells Few /LPF (NONE/OCC) Urine Amorphous Sediment Few /LPF (NONE) H Urine Bacteria Few /HPF (NONE) Height (Feet): 5 Height (Inches): 7.00 Weight (Pounds): 180 Medications Current Medications Medications (Trade) Dose Ordered Sig/Rina Route PRN Reason Start Time Stop Time Status Last Admin Dose Admin Acetaminophen (Tylenol) 650 mg Q4H PRN ORAL fever 01/10/17 09:45 02/09/17 09:44 Albuterol/ Ipratropium (DuoNeb 0.5-3(2.5)mg/3ml) 3 ml Q4H PRN HHN Shortness of Breath 01/10/17 09:45 01/15/17 09:44 Amlodipine Besylate (Norvasc) 5 mg BID ORAL 01/10/17 18:00 02/09/17 17:59 UNV Clonidine HCl (Catapres) 0.1 mg Q4H PRN ORAL sbp more than 160 01/10/17 09:45 02/09/17 09:44 Clopidogrel Bisulfate (Plavix) 75 mg DAILY ORAL 01/10/17 10:00 02/09/17 09:59 01/10/17 10:38 Dextrose (Dextrose 50%) STAT PRN IV Hypoglycemia 01/10/17 08:15 02/09/17 08:14 Donepezil HCl (Aricept) 10 mg DAILY ORAL 01/10/17 11:00 02/09/17 10:59 01/10/17 10:38 Heparin Sodium (Porcine) (Heparin 5000 units/ml) 5,000 units EVERY 12 HOURS SUBQ 01/10/17 21:00 02/09/17 20:59 Future Hold Insulin Aspart (NovoLOG) BEFORE MEALS AND HS SUBQ 01/10/17 11:30 02/09/17 11:29 Levothyroxine Sodium (Synthroid) 25 mcg ACBREAKFAST ORAL 01/10/17 09:00 02/09/17 08:59 01/10/17 10:38 Memantine 10 mg 10 mg DAILY ORAL 01/10/17 09:00 02/09/17 08:59 01/10/17 10:38 Nitroglycerin (Ntg) 0.4 mg Q5M X 3 DOSES PRN SL Prn Chest Pain 01/10/17 09:45 02/09/17 09:44 Ondansetron HCl (Zofran) 4 mg Q6H PRN IVP Nausea & Vomiting 01/10/17 09:45 02/09/17 09:44 Polyethylene Glycol (Miralax) 17 gm HSPRN PRN ORAL Constipation 01/10/17 09:45 02/09/17 09:44 Sodium Chloride (Sodium Chloride 1000ml bag) 1,000 ml @ 100 mls/hr Q10H IVLG 01/10/17 11:00 02/09/17 10:59 01/10/17 10:38 Temazepam (Restoril) 15 mg HSPRN PRN ORAL Insomnia 01/10/17 09:45 01/17/17 09:44 Assessment/Plan Status: stable, progressing Assessment/Plan Assessment/Plan Problems: (1) Acute kidney injury (2) Hyperkalemia (3) Osteomyelitis of ankle or foot, right, acute (4) Dementia (5) Diabetes mellitus Assessment/Plan renal w/u in progress continue antibiotics iv fluids check electrolytes. d/w daughter, she wants her to go home with oral antibiotics, will d/w ID med/surg admission SHYAM NAVA Jan 10, 2017 12:50
--- NOTE | 2017-01-10 15:07 | Consultation ---
Consult Note Assessment/Plan # [id number] ASSESSMENT: 76 y/o female with: // Right medial ankle cellulitis / osteomyelitis / hardware infection - SP hardware removal 12/15 - - 3P bone scan: 3 phase increased activity in region of distal aspect of right fibula compatible with hardware loosening and/or osteomyelitis - XR: surgical hardware seen reducing old healed distal fibular and medial malleolar fractures. No acute fractures. No dislocations. Bones are demineralized. - elevated ESR, CRP - h/o right ankle ORIF // Winter intertrigo // MARVIN ( IV Vanco ? related ) // Dementia // DM // h/o CAD // No ABX allergies // Full Code PLAN: - Cont AB Rx until 01/26/14 ( 6 weeks IV ABX from date of HWR ) , cont cefepime and change IV vancomycin to Dapto - weekly CBC, CMP, ESR, CRP while on IV ABX - monitor CBC, temperatures - monitor BMP - wound care GISELLA JEROME M.D. Jan 10, 2017 15:07
[2017-01-10] MEDS ORDERED: DAPTOmycin 500 MG in NS 55 ML IV SCH (18:00)
[2017-01-10] MEDS: Cefepime HCl 2 GM in D5W 110 ML IVPB SCH (19:22)
[2017-01-10] MEDS ORDERED: Heparin 5000 units/ml inj SUBQ SCH (21:00)
--- NOTE | 2017-01-10 22:49 | Consultation ---
DATE OF CONSULTATION: 01/10/2017 CONSULTING PHYSICIAN: Duarte Mcgregor M.D. REFERRING PHYSICIAN: Zahra Barrera M.D. REASON FOR CONSULTATION: Osteomyelitis and management. HISTORY OF PRESENT ILLNESS: The patient is a 76-year-old female who is well known to our service from prior recent admission to this medical center who was admitted to this medical center due to increased BUN and creatinine. The patient has been recently diagnosed with osteomyelitis of the right ankle status post removal of the hardware and the patient was discharged with a total 6 weeks of IV antibiotics. Infectious consultation requested for further evaluation of the patient and need for antibiotic management. PAST MEDICAL HISTORY: 1. Right medial ankle cellulitis and osteomyelitis however infection. 2. Removal of hardware on 12/15/2016. 3. History of dementia. 4. History of diabetes. 5. History CAD. ALLERGIES: Morphine. FAMILY HISTORY: Noncontributory REVIEW OF SYSTEMS: Limited. Much of the information is gathered as mentioned above. MEDICATIONS: IV cefepime and vancomycin. PHYSICAL EXAMINATION: VITAL SIGNS: Temperature 97.2, pulse 86, respiratory rate 18, and blood pressure 150/76. HEENT: Mild pale conjunctivae. No icterus. CHEST: Coarse breath sounds. HEART: S1-S2. ABDOMEN: Soft. EXTREMITIES: No signs of cyanosis. The wound has healed. LABORATORY DATA: 7.5/9 and platelets 83,000. UA unremarkable. BUN 40 and creatinine 4.4. ASSESSMENT: The patient is a 76-year-old female, admitted to this medical center due to increased BUN and creatinine and acute renal failure, possibly due to IV vancomycin. The patient has a history of osteomyelitis of the right heal and she has about 2 more weeks of IV antibiotics to continue. Nephrology consultation requested for further evaluation of the patient. PLAN: 1. We will place the patient on IV cefepime and change vancomycin to daptomycin. 2. Monitor CBC. 3. Monitor BMP. 4. Monitor ESR and CRP. Based on the patient's clinical course and laboratories, we will do further recommendations. Thank you, Dr. Barrera, for allowing me to participate in the care of this patient. I will follow the patient with you during this hospitalization. Duarte Mcgregor M.D. DR: VINICIO JOB#: [id number] CC:
[2017-01-11] VITALS: BP 157/73
[2017-01-11 04:00] VITALS: BP 153/76
[2017-01-11] MEDS: Levothyroxine 25mcg tab ORAL SCH (06:44)
[2017-01-11] MEDS: NovoLOG Insulin Flexpen SUBQ SCH ×4 (06:46→21:33)
[2017-01-11 07:45] LABS: MEAN CORPUSCULAR HEMOGLOBIN 28.9 PG (27.0-31.0); MEAN CORPUSCULAR HGB CONC 33.3 G/DL (32.0-36.0); MEAN CORPUSCULAR VOLUME 87 FL (80-99); MEAN PLATELET VOLUME 6.2 FL (6.5-10.1); PLATELET COUNT 92 K/UL (150-450); RED BLOOD COUNT 3.17 M/UL (4.20-5.40); RED CELL DISTRIBUTION WIDTH 13.1 % (11.6-14.8); WHITE BLOOD COUNT 7.6 K/UL (4.8-10.8)
[2017-01-11 07:49] LABS: HEMOGLOBIN A1C 6.1 % (< 6.0)
[2017-01-11 08:00] VITALS: BP 138/74
[2017-01-11 08:00] LABS: ALANINE AMINOTRANSFERASE 11 U/L (3-33); ALBUMIN/GLOBULIN RATIO 1.2 (1.0-2.7); ANION GAP 16 (5-15); ASPARTATE AMINO TRANSFERASE 16 U/L (5-40); CALCIUM 8.3 mg/dL (8.6-10.2); CARBON DIOXIDE 23 mEQ/L (20-30); CHLORIDE 106 mEQ/L (98-107); CHOLESTEROL 283 mg/dL (< 200); CHOLESTEROL/HDL RATIO 10.9 (3.3-4.4); CREATININE 4.3 mg/dL (0.5-0.9); HEMOLYSIS 4; LDL CHOLESTEROL (CALC.) 218 mg/dL (60-99); POTASSIUM 4.7 mEQ/L (3.4-4.9); SODIUM 145 mEQ/L (135-145); TOTAL PROTEIN 5.5 g/dL (6.6-8.7)
[2017-01-11 08:01] LABS: CRP QUANT 2.4 mg/dL (< 0.5); MAGNESIUM 1.6 mg/dL (1.7-2.5); PHOSPHORUS 5.1 mg/dL (2.5-4.8); URIC ACID 6.7 mg/dL (3.0-7.5)
--- NOTE | 2017-01-11 09:27 | General Progress Note ---
Assessment/Plan Status: stable Assessment/Plan Status: - Acute renal failure and hyperKalemia - Renal failure, likely diabetic nephropathy / HTN - h/o Cellulitis in diabetic foot right LE - Decubitus ulcer - Dementia - Diabetes mellitus - Nonpressure ulcer to level of fascia right lateral ankle - S/P ORIF right ankle Plan: Anila SIDDIQUI Kidney- pending Adjust BP meds- hydralazine added Avoid Nephrotoxics- Urine studies- Monitor renal parameters- 24 h urine CrCl and total protein Per orders Subjective ROS Limited/Unobtainable: No Constitutional: Reports: malaise Allergies: Coded Allergies: MORPHINE (Verified Adverse Reaction, Severe, PARADOXICAL REACTION, 10/08/12 ) Objective Last 24 Hour Vital Signs Date Time Temp Pulse Resp B/P Pulse Ox O2 Delivery O2 Flow Rate FiO2 01/11/17 08:00 97.9 68 18 138/74 95 Room Air 01/11/17 04:00 97.9 81 16 153/76 95 Room Air 01/11/17 04:00 84 01/11/17 00:00 97.0 72 16 157/73 95 Room Air 01/11/17 00:00 77 01/10/17 20:43 160/84 01/10/17 20:00 97.5 72 18 143/71 95 01/10/17 20:00 85 01/10/17 19:33 91 18 Room Air 01/10/17 18:05 77 160/84 01/10/17 16:12 98.1 77 20 160/84 96 Room Air 01/10/17 16:00 74 01/10/17 12:10 97.0 74 18 158/76 96 Room Air 01/10/17 10:38 61 156/84 Intake and Output 01/10/17 01/11/17 19:00 07:00 Intake Total 1160 ml 1720 ml Output Total 200 ml 300 ml Balance 960 ml 1420 ml Intake Oral 360 ml 200 ml IV Total 800 ml 1520 ml Output Urine Total 200 ml 300 ml # Voids 1 # Bowel Movements 1 Laboratory Tests 01/11/17 05:00: White Blood Count 7.6, Red Blood Count 3.17L, Hemoglobin 9.2L, Hematocrit 27.5L , Mean Corpuscular Volume 87, Mean Corpuscular Hemoglobin 28.9, Mean Corpuscular Hemoglobin Concent 33.3, Red Cell Distribution Width 13.1, Platelet Count 92L, Mean Platelet Volume 6.2L, Neutrophils (%) (Auto) , Lymphocytes (%) ( Auto) , Monocytes (%) (Auto) , Eosinophils (%) (Auto) , Basophils (%) (Auto) , Neutrophils % (Manual) [Pending], Lymphocytes % (Manual) [Pending], Platelet Estimate [Pending], Platelet Morphology [Pending], Erythrocyte Sedimentation Rate 88H, Sodium Level 145, Potassium Level 4.7, Chloride Level 106, Carbon Dioxide Level 23, Anion Gap 16H, Blood Urea Nitrogen 41H, Creatinine 4.3H, Estimat Glomerular Filtration Rate , Glucose Level 166H, Hemoglobin A1c 6.1H, Uric Acid 6.7, Calcium Level 8.3L, Phosphorus Level 5.1H, Magnesium Level 1.6L, Total Bilirubin 0.4, Gamma Glutamyl Transpeptidase 29, Aspartate Amino Transf ( AST/SGOT) 16, Alanine Aminotransferase (ALT/SGPT) 11, Alkaline Phosphatase 73, Total Creatine Kinase 24L, C-Reactive Protein, Quantitative 2.4H, Pro-B-Type Natriuretic Peptide 1688H, Total Protein 5.5L, Albumin 3.0L, Globulin 2.5, Albumin/Globulin Ratio 1.2, Triglycerides Level 193H, Cholesterol Level 283H, LDL Cholesterol 218H, HDL Cholesterol 26, Cholesterol/HDL Ratio 10.9H, Thyroid Stimulating Hormone (TSH) 3.390 Height (Feet): 5 Height (Inches): 7.00 Weight (Pounds): 180 General Appearance: no apparent distress Cardiovascular: normal rate Respiratory/Chest: decreased breath sounds Abdomen: soft Objective other physical exam not changed BERTRAM CASTAÑEDA 12, 2017 09:27
[2017-01-11] MEDS: Donepezil 10mg tab ORAL SCH (09:31)
[2017-01-11] MEDS: Memantine 10mg tab ORAL SCH (09:31)
[2017-01-11] MEDS ORDERED: NS 275ml ONE (10:05)
[2017-01-11 10:14] LABS: BAND NEUTROPHILS % (MANUAL) 0 % (0-8); BASOPHILS % (MANUAL) 0 % (0-2); EOSINOPHILS % (MANUAL) 1 % (0-3); HYPOCHROMASIA 1+; LYMPHOCYTES % (MANUAL) 22 % (20-45); NEUTROPHILS % (MANUAL) 66 % (45-75); PLATELET ESTIMATE DECREASED; PLATELET MORPHOLOGY NORMAL; TOTAL CELLS COUNTED 100
--- NOTE | 2017-01-11 10:31 | Infectious Diseases Prog Note ---
Assessment/Plan Assessment/Plan A; Osteomyelitis of tibia s/p hardware removal Acute renal failure Dementia Hypothyroidism P; continue Daptomycin & Cefepime Subjective ROS Limited/Unobtainable: Yes Constitutional: Reports: no symptoms Allergies: Coded Allergies: MORPHINE (Verified Adverse Reaction, Severe, PARADOXICAL REACTION, 10/08/12 ) Objective Vital Signs Last 24 Hour Vital Signs Date Time Temp Pulse Resp B/P Pulse Ox O2 Delivery O2 Flow Rate FiO2 01/11/17 09:31 68 138/74 01/11/17 08:04 81 01/11/17 08:00 97.9 68 18 138/74 95 Room Air 01/11/17 04:00 97.9 81 16 153/76 95 Room Air 01/11/17 04:00 84 01/11/17 00:00 97.0 72 16 157/73 95 Room Air 01/11/17 00:00 77 01/10/17 20:43 160/84 01/10/17 20:00 97.5 72 18 143/71 95 01/10/17 20:00 85 01/10/17 19:33 91 18 Room Air 01/10/17 18:05 77 160/84 01/10/17 16:12 98.1 77 20 160/84 96 Room Air 01/10/17 16:00 74 01/10/17 12:10 97.0 74 18 158/76 96 Room Air 01/10/17 10:38 61 156/84 Height (Feet): 5 Height (Inches): 7.00 Weight (Pounds): 180 General Appearance: no acute distress HEENT: other - no teeth Respiratory/Chest: lungs clear Cardiovascular: normal rate Abdomen: soft, non tender Extremities: other - mild leg edema 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: alert, responsive Microbiology Date/Time Source Procedure Growth Status 01/09/17 22:45 Blood Blood Culture - Preliminary NO GROWTH AFTER 24 HOURS Resulted 01/09/17 22:30 Blood Blood Culture - Preliminary NO GROWTH AFTER 24 HOURS Resulted Laboratory Tests Test 01/11/17 05:00 White Blood Count 7.6 K/UL (4.8-10.8) Red Blood Count 3.17 M/UL (4.20-5.40) L Hemoglobin 9.2 G/DL (12.0-16.0) L Hematocrit 27.5 % (37.0-47.0) L Mean Corpuscular Volume 87 FL (80-99) Mean Corpuscular Hemoglobin 28.9 PG (27.0-31.0) Mean Corpuscular Hemoglobin Concent 33.3 G/DL (32.0-36.0) Red Cell Distribution Width 13.1 % (11.6-14.8) Platelet Count 92 K/UL (150-450) L Mean Platelet Volume 6.2 FL (6.5-10.1) L Neutrophils (%) (Auto) % (45.0-75.0) Lymphocytes (%) (Auto) % (20.0-45.0) Monocytes (%) (Auto) % (1.0-10.0) Eosinophils (%) (Auto) % (0.0-3.0) Basophils (%) (Auto) % (0.0-2.0) Differential Total Cells Counted 100 Neutrophils % (Manual) 66 % (45-75) Lymphocytes % (Manual) 22 % (20-45) Monocytes % (Manual) 11 % (1-10) H Eosinophils % (Manual) 1 % (0-3) Basophils % (Manual) 0 % (0-2) Band Neutrophils 0 % (0-8) Platelet Estimate Decreased L Platelet Morphology Normal Hypochromasia 1+ Erythrocyte Sedimentation Rate 88 MM/HR (0-30) H Sodium Level 145 mEQ/L (135-145) Potassium Level 4.7 mEQ/L (3.4-4.9) Chloride Level 106 mEQ/L (98-107) Carbon Dioxide Level 23 mEQ/L (20-30) Anion Gap 16 (5-15) H Blood Urea Nitrogen 41 mg/dL (7-23) H Creatinine 4.3 mg/dL (0.5-0.9) H Estimat Glomerular Filtration Rate mL/min (>60) Glucose Level 166 mg/dL (74-106) H Hemoglobin A1c 6.1 % (< 6.0) H Uric Acid 6.7 mg/dL (3.0-7.5) Calcium Level 8.3 mg/dL (8.6-10.2) L Phosphorus Level 5.1 mg/dL (2.5-4.8) H Magnesium Level 1.6 mg/dL (1.7-2.5) L Total Bilirubin 0.4 mg/dL (0.0-1.2) Gamma Glutamyl Transpeptidase 29 U/L (5-36) Aspartate Amino Transf (AST/SGOT) 16 U/L (5-40) Alanine Aminotransferase (ALT/SGPT) 11 U/L (3-33) Alkaline Phosphatase 73 U/L (35-104) Total Creatine Kinase 24 U/L (26-140) L C-Reactive Protein, Quantitative 2.4 mg/dL (< 0.5) H Pro-B-Type Natriuretic Peptide 1688 pg/mL (0-450) H Total Protein 5.5 g/dL (6.6-8.7) L Albumin 3.0 g/dL (3.5-5.2) L Globulin 2.5 g/dL Albumin/Globulin Ratio 1.2 (1.0-2.7) Triglycerides Level 193 mg/dL (< 150) H Cholesterol Level 283 mg/dL (< 200) H LDL Cholesterol 218 mg/dL (60-99) H HDL Cholesterol 26 mg/dL (> 60) Cholesterol/HDL Ratio 10.9 (3.3-4.4) H Thyroid Stimulating Hormone (TSH) 3.390 uIU/mL (0.300-4.500) Current Medications Medications (Trade) Dose Ordered Sig/Rina Route PRN Reason Start Time Stop Time Status Last Admin Dose Admin Acetaminophen (Tylenol) 650 mg Q4H PRN ORAL fever 01/10/17 09:45 02/09/17 09:44 Albuterol/ Ipratropium (DuoNeb 0.5-3(2.5)mg/3ml) 3 ml Q4H PRN HHN Shortness of Breath 01/10/17 09:45 01/15/17 09:44 Amlodipine Besylate 5 mg 5 mg BID ORAL 01/10/17 18:00 02/09/17 17:59 01/11/17 09:31 Atorvastatin Calcium (Lipitor) 20 mg BEDTIME ORAL 01/11/17 21:00 02/10/17 20:59 Cefepime HCl 2 gm/ Dextrose 110 ml @ 220 mls/hr Q24H IVPB 01/10/17 17:00 01/17/17 16:59 01/10/17 19:22 Clonidine HCl (Catapres) 0.1 mg Q4H PRN ORAL sbp more than 160 01/10/17 09:45 02/09/17 09:44 01/10/17 20:43 Clopidogrel Bisulfate (Plavix) 75 mg DAILY ORAL 01/10/17 10:00 02/09/17 09:59 01/11/17 09:31 Daptomycin/Sodium Chloride (Cubicin/Sodium Chloride) 55 ml @ 100 mls/hr Q48H IV 01/10/17 18:00 01/17/17 17:59 01/10/17 18:05 Dextrose (Dextrose 50%) STAT PRN IV Hypoglycemia 01/10/17 08:15 02/09/17 08:14 Donepezil HCl (Aricept) 10 mg DAILY ORAL 01/10/17 11:00 02/09/17 10:59 01/11/17 09:31 Heparin Sodium (Porcine) (Heparin 5000 units/ml) 5,000 units EVERY 12 HOURS SUBQ 01/10/17 21:00 02/09/17 20:59 Future Hold Hydralazine HCl (Apresoline) 25 mg Q8HR ORAL 01/11/17 09:30 02/10/17 09:29 Insulin Aspart (NovoLOG) BEFORE MEALS AND HS SUBQ 01/10/17 11:30 02/09/17 11:29 01/11/17 06:46 Levothyroxine Sodium (Synthroid) 25 mcg ACBREAKFAST ORAL 01/10/17 09:00 02/09/17 08:59 01/11/17 06:44 Memantine 10 mg 10 mg DAILY ORAL 01/10/17 09:00 02/09/17 08:59 01/11/17 09:31 Nitroglycerin (Ntg) 0.4 mg Q5M X 3 DOSES PRN SL Prn Chest Pain 01/10/17 09:45 02/09/17 09:44 Ondansetron HCl (Zofran) 4 mg Q6H PRN IVP Nausea & Vomiting 01/10/17 09:45 02/09/17 09:44 Pantoprazole (Protonix) 40 mg DAILY ORAL 01/11/17 09:30 02/10/17 09:29 Polyethylene Glycol (Miralax) 17 gm HSPRN PRN ORAL Constipation 01/10/17 09:45 02/09/17 09:44 Sodium Chloride (Sodium Chloride 1000ml bag) 1,000 ml @ 100 mls/hr Q10H IVLG 01/10/17 11:00 4/10/17 10:59 01/11/17 06:47 Temazepam (Restoril) 15 mg HSPRN PRN ORAL Insomnia 01/10/17 09:45 01/17/17 09:44 NIVIA GUARDADO Jan 11, 2017 10:31
[2017-01-11] MEDS: HydrALAZINE 25mg tab ORAL SCH ×3 (10:53→21:32)
[2017-01-11 11:25] VITALS: BP 150/84
[2017-01-11 16:00] VITALS: BP 158/60
[2017-01-11] MEDS: Cefepime HCl 2 GM in D5W 110 ML IVPB SCH (16:18)
[2017-01-11 20:00] VITALS: BP_SYST 147; BP_DIAS 61; BP_DIAS 87
[2017-01-11] MEDS ORDERED: Atorvastatin 20mg tab ORAL SCH (21:00)
--- NOTE | 2017-01-11 23:12 | Pulmonology Progress Note ---
Assessment/Plan Problems: (1) Acute kidney injury (2) Hyperkalemia (3) Osteomyelitis of ankle or foot, right, acute (4) Dementia (5) Diabetes mellitus Assessment/Plan renal w/u in progress continue antibiotics iv fluids check electrolytes. Subjective Interval Events: awake Allergies: Coded Allergies: MORPHINE (Verified Adverse Reaction, Severe, PARADOXICAL REACTION, 10/08/12 ) Objective Last 24 Hour Vital Signs Date Time Temp Pulse Resp B/P Pulse Ox O2 Delivery O2 Flow Rate FiO2 01/11/17 21:35 111 18 Room Air 01/11/17 21:32 147/87 01/11/17 20:00 99.1 111 20 147/87 98 Room Air 01/11/17 17:47 90 158/60 01/11/17 16:00 98.2 90 21 158/60 95 Room Air 01/11/17 14:45 150/84 01/11/17 11:25 97.5 94 20 150/84 97 Room Air 01/11/17 10:53 138/74 01/11/17 09:31 68 138/74 01/11/17 08:04 81 01/11/17 08:00 97.9 68 18 138/74 95 Room Air 01/11/17 07:40 62 18 Room Air 01/11/17 04:00 97.9 81 16 153/76 95 Room Air 01/11/17 04:00 84 01/11/17 00:00 97.0 72 16 157/73 95 Room Air 01/11/17 00:00 77 Intake and Output 01/10/17 01/11/17 19:00 07:00 Intake Total 1160 ml 1720 ml Output Total 200 ml 300 ml Balance 960 ml 1420 ml Intake Oral 360 ml 200 ml IV Total 800 ml 1520 ml Output Urine Total 200 ml 300 ml # Voids 1 # Bowel Movements 1 Objective General Appearance: WD/WN HEENT: normocephalic, atraumatic Respiratory/Chest: chest wall non-tender, lungs clear Cardiovascular: normal peripheral pulses, normal rate Abdomen: normal bowel sounds, soft, non tender, other - peg in place Extremities: no cyanosis, no clubbing Skin: no rash, clean dressing on toe Microbiology Date/Time Source Procedure Growth Status 01/09/17 22:45 Blood Blood Culture - Preliminary NO GROWTH AFTER 24 HOURS Resulted 01/09/17 22:30 Blood Blood Culture - Preliminary NO GROWTH AFTER 24 HOURS Resulted Laboratory Tests 01/11/17 05:00: White Blood Count 7.6, Red Blood Count 3.17L, Hemoglobin 9.2L, Hematocrit 27.5L , Mean Corpuscular Volume 87, Mean Corpuscular Hemoglobin 28.9, Mean Corpuscular Hemoglobin Concent 33.3, Red Cell Distribution Width 13.1, Platelet Count 92L, Mean Platelet Volume 6.2L, Neutrophils (%) (Auto) , Lymphocytes (%) ( Auto) , Monocytes (%) (Auto) , Eosinophils (%) (Auto) , Basophils (%) (Auto) , Differential Total Cells Counted 100, Neutrophils % (Manual) 66, Lymphocytes % ( Manual) 22, Monocytes % (Manual) 11H, Eosinophils % (Manual) 1, Basophils % ( Manual) 0, Band Neutrophils 0, Platelet Estimate DecreasedL, Platelet Morphology Normal, Hypochromasia 1+, Erythrocyte Sedimentation Rate 88H, Sodium Level 145, Potassium Level 4.7, Chloride Level 106, Carbon Dioxide Level 23, Anion Gap 16H, Blood Urea Nitrogen 41H, Creatinine 4.3H, Estimat Glomerular Filtration Rate , Glucose Level 166H, Hemoglobin A1c 6.1H, Uric Acid 6.7, Calcium Level 8.3L, Phosphorus Level 5.1H, Magnesium Level 1.6L, Total Bilirubin 0.4, Gamma Glutamyl Transpeptidase 29, Aspartate Amino Transf (AST/ SGOT) 16, Alanine Aminotransferase (ALT/SGPT) 11, Alkaline Phosphatase 73, Total Creatine Kinase 24L, C-Reactive Protein, Quantitative 2.4H, Pro-B-Type Natriuretic Peptide 1688H, Total Protein 5.5L, Albumin 3.0L, Globulin 2.5, Albumin/Globulin Ratio 1.2, Triglycerides Level 193H, Cholesterol Level 283H, LDL Cholesterol 218H, HDL Cholesterol 26, Cholesterol/HDL Ratio 10.9H, Thyroid Stimulating Hormone (TSH) 3.390 Current Medications Medications (Trade) Dose Ordered Sig/Rina Route PRN Reason Start Time Stop Time Status Last Admin Dose Admin Acetaminophen (Tylenol) 650 mg Q4H PRN ORAL fever 01/10/17 09:45 02/09/17 09:44 Albuterol/ Ipratropium (DuoNeb 0.5-3(2.5)mg/3ml) 3 ml Q4H PRN HHN Shortness of Breath 01/10/17 09:45 01/15/17 09:44 Amlodipine Besylate 5 mg 5 mg BID ORAL 01/10/17 18:00 02/09/17 17:59 01/11/17 17:47 Atorvastatin Calcium (Lipitor) 20 mg BEDTIME ORAL 01/11/17 21:00 02/10/17 20:59 01/11/17 21:32 Cefepime HCl 2 gm/ Dextrose 110 ml @ 220 mls/hr Q24H IVPB 01/10/17 17:00 01/17/17 16:59 01/11/17 16:18 Clonidine HCl (Catapres) 0.1 mg Q4H PRN ORAL sbp more than 160 01/10/17 09:45 02/09/17 09:44 01/10/17 20:43 Clopidogrel Bisulfate (Plavix) 75 mg DAILY ORAL 01/10/17 10:00 02/09/17 09:59 01/11/17 09:31 Daptomycin/Sodium Chloride (Cubicin/Sodium Chloride) 55 ml @ 100 mls/hr Q48H IV 01/10/17 18:00 01/17/17 17:59 01/10/17 18:05 Dextrose (Dextrose 50%) STAT PRN IV Hypoglycemia 01/10/17 08:15 02/09/17 08:14 Donepezil HCl (Aricept) 10 mg DAILY ORAL 01/10/17 11:00 02/09/17 10:59 01/11/17 09:31 Heparin Sodium (Porcine) (Heparin 5000 units/ml) 5,000 units EVERY 12 HOURS SUBQ 01/10/17 21:00 02/09/17 20:59 Future Hold Hydralazine HCl (Apresoline) 25 mg Q8HR ORAL 01/11/17 09:30 02/10/17 09:29 01/11/17 21:32 Insulin Aspart (NovoLOG) BEFORE MEALS AND HS SUBQ 01/10/17 11:30 02/09/17 11:29 01/11/17 21:33 Levothyroxine Sodium (Synthroid) 25 mcg ACBREAKFAST ORAL 01/10/17 09:00 02/09/17 08:59 01/11/17 06:44 Memantine 10 mg 10 mg DAILY ORAL 01/10/17 09:00 02/09/17 08:59 01/11/17 09:31 Nitroglycerin (Ntg) 0.4 mg Q5M X 3 DOSES PRN SL Prn Chest Pain 01/10/17 09:45 02/09/17 09:44 Ondansetron HCl (Zofran) 4 mg Q6H PRN IVP Nausea & Vomiting 01/10/17 09:45 02/09/17 09:44 Pantoprazole (Protonix) 40 mg DAILY ORAL 01/11/17 09:30 02/10/17 09:29 01/11/17 10:53 Polyethylene Glycol (Miralax) 17 gm HSPRN PRN ORAL Constipation 01/10/17 09:45 02/09/17 09:44 Sodium Chloride (Sodium Chloride 1000ml bag) 1,000 ml @ 100 mls/hr Q10H IVLG 01/10/17 11:00 02/09/17 10:59 01/11/17 16:19 Temazepam (Restoril) 15 mg HSPRN PRN ORAL Insomnia 01/10/17 09:45 01/17/17 09:44 SHYAM NAVA Jan 11, 2017 23:12
[2017-01-12] VITALS (7 sets, daily range): BP systolic 123–146; BP diastolic 54–77
[2017-01-12 06:11] LABS: MEAN CORPUSCULAR HEMOGLOBIN 29.5 PG (27.0-31.0); MEAN CORPUSCULAR VOLUME 87 FL (80-99); PLATELET COUNT 88 K/UL (150-450); RED BLOOD COUNT 2.85 M/UL (4.20-5.40); WHITE BLOOD COUNT 7.6 K/UL (4.8-10.8)
[2017-01-12 06:25] LABS: ALANINE AMINOTRANSFERASE 10 U/L (3-33); ALBUMIN/GLOBULIN RATIO 0.9 (1.0-2.7); ANION GAP 14 (5-15); ASPARTATE AMINO TRANSFERASE 13 U/L (5-40); CALCIUM 7.5 mg/dL (8.6-10.2); CARBON DIOXIDE 21 mEQ/L (20-30); CHLORIDE 108 mEQ/L (98-107); CREATININE 4.3 mg/dL (0.5-0.9); HEMOLYSIS 4; MAGNESIUM 1.4 mg/dL (1.7-2.5); PHOSPHORUS 4.9 mg/dL (2.5-4.8); POTASSIUM 4.6 mEQ/L (3.4-4.9); SODIUM 143 mEQ/L (135-145); TOTAL PROTEIN 5.1 g/dL (6.6-8.7)
[2017-01-12] MEDS: Levothyroxine 25mcg tab ORAL SCH (06:30)
[2017-01-12] MEDS: HydrALAZINE 25mg tab ORAL SCH ×3 (06:30→20:58)
[2017-01-12] MEDS: NovoLOG Insulin Flexpen SUBQ SCH ×4 (06:31→22:44)
[2017-01-12 07:06] LABS: URIC ACID 5.8 mg/dL (3.0-7.5)
[2017-01-12] MEDS: Donepezil 10mg tab ORAL SCH (08:38)
[2017-01-12] MEDS: Memantine 10mg tab ORAL SCH (08:38)
[2017-01-12] MEDS ORDERED: Levemir Flexpen SUBQ SCH (09:00)
[2017-01-12 10:04] LABS: BAND NEUTROPHILS % (MANUAL) 0 % (0-8); BASOPHILS % (MANUAL) 0 % (0-2); EOSINOPHILS % (MANUAL) 1 % (0-3); LYMPHOCYTES % (MANUAL) 15 % (20-45); NEUTROPHILS % (MANUAL) 73 % (45-75); PLATELET ESTIMATE DECREASED; PLATELET MORPHOLOGY NORMAL; TOTAL CELLS COUNTED 100
--- NOTE | 2017-01-12 10:27 | Infectious Diseases Prog Note ---
Assessment/Plan Assessment/Plan ASSESSMENT: 76 y/o female with: // +ve Blood cx :GPC ? contaminant // Right medial ankle cellulitis / osteomyelitis / hardware infection - SP hardware removal 12/15 - - 3P bone scan: 3 phase increased activity in region of distal aspect of right fibula compatible with hardware loosening and/or osteomyelitis - XR: surgical hardware seen reducing old healed distal fibular and medial malleolar fractures. No acute fractures. No dislocations. Bones are demineralized. - elevated ESR, CRP - h/o right ankle ORIF // MARVIN ( IV Vanco ? related ) // Dementia // DM // h/o CAD // No ABX allergies // Full Code PLAN: - Cont AB Rx until 01/26/14 ( 6 weeks IV ABX from date of HWR ) , cont cefepime and Dapto - weekly CBC, CMP, ESR, CRP while on IV ABX - monitor CBC, temperatures - monitor BMP - wound care Subjective Constitutional: Denies: anorexia, chills, drenching sweats, fatigue, fever, no symptoms, other Allergies: Coded Allergies: MORPHINE (Verified Adverse Reaction, Severe, PARADOXICAL REACTION, 10/08/12 ) Objective Vital Signs Last 24 Hour Vital Signs Date Time Temp Pulse Resp B/P Pulse Ox O2 Delivery O2 Flow Rate FiO2 01/12/17 08:38 81 139/62 01/12/17 08:05 103 18 Room Air 21 01/12/17 08:00 97.0 81 17 139/62 93 Room Air 01/12/17 07:34 80 01/12/17 06:30 137/67 01/12/17 04:10 97.7 77 20 144/63 95 Room Air 01/12/17 04:00 82 01/12/17 00:00 81 01/12/17 00:00 97.0 76 20 130/54 95 Room Air 01/11/17 21:35 111 18 Room Air 01/11/17 21:32 147/87 01/11/17 20:00 94 01/11/17 20:00 99.1 111 20 147/87 98 Room Air 01/11/17 17:47 90 158/60 01/11/17 16:00 98.2 90 21 158/60 95 Room Air 01/11/17 16:00 83 01/11/17 14:45 150/84 01/11/17 11:25 97.5 94 20 150/84 97 Room Air 01/11/17 10:53 138/74 Height (Feet): 5 Height (Inches): 7.00 Weight (Pounds): 180 Respiratory/Chest: normal breath sounds Cardiovascular: regularly irregular Abdomen: non distended Microbiology Date/Time Source Procedure Growth Status 01/09/17 22:45 Blood Blood Culture - Preliminary Resulted 01/09/17 22:30 Blood Blood Culture - Preliminary NO GROWTH AFTER 48 HOURS Resulted 01/10/17 01:30 Nasal Nares MRSA Culture - Final NO METHICILLIN RESISTANT STAPH AUREUS... Complete 01/10/17 01:30 Rectum VRE Culture - Final Enterococcus Faecium - Vre Complete Laboratory Tests Test 01/12/17 05:10 White Blood Count 7.6 K/UL (4.8-10.8) Red Blood Count 2.85 M/UL (4.20-5.40) L Hemoglobin 8.4 G/DL (12.0-16.0) L Hematocrit 24.7 % (37.0-47.0) L Mean Corpuscular Volume 87 FL (80-99) Mean Corpuscular Hemoglobin 29.5 PG (27.0-31.0) Mean Corpuscular Hemoglobin Concent 34.0 G/DL (32.0-36.0) Red Cell Distribution Width 13.0 % (11.6-14.8) Platelet Count 88 K/UL (150-450) L Mean Platelet Volume 8.0 FL (6.5-10.1) Neutrophils (%) (Auto) % (45.0-75.0) Lymphocytes (%) (Auto) % (20.0-45.0) Monocytes (%) (Auto) % (1.0-10.0) Eosinophils (%) (Auto) % (0.0-3.0) Basophils (%) (Auto) % (0.0-2.0) Differential Total Cells Counted 100 Neutrophils % (Manual) 73 % (45-75) Lymphocytes % (Manual) 15 % (20-45) L Monocytes % (Manual) 11 % (1-10) H Eosinophils % (Manual) 1 % (0-3) Basophils % (Manual) 0 % (0-2) Band Neutrophils 0 % (0-8) Platelet Estimate Decreased L Platelet Morphology Normal Red Blood Cell Morphology Normal Sodium Level 143 mEQ/L (135-145) Potassium Level 4.6 mEQ/L (3.4-4.9) Chloride Level 108 mEQ/L (98-107) H Carbon Dioxide Level 21 mEQ/L (20-30) Anion Gap 14 (5-15) Blood Urea Nitrogen 40 mg/dL (7-23) H Creatinine 4.3 mg/dL (0.5-0.9) H Estimat Glomerular Filtration Rate mL/min (>60) Glucose Level 181 mg/dL (74-106) H Uric Acid 5.8 mg/dL (3.0-7.5) Calcium Level 7.5 mg/dL (8.6-10.2) L Phosphorus Level 4.9 mg/dL (2.5-4.8) H Magnesium Level 1.4 mg/dL (1.7-2.5) L Total Bilirubin 0.3 mg/dL (0.0-1.2) Gamma Glutamyl Transpeptidase 24 U/L (5-36) Aspartate Amino Transf (AST/SGOT) 13 U/L (5-40) Alanine Aminotransferase (ALT/SGPT) 10 U/L (3-33) Alkaline Phosphatase 61 U/L (35-104) Total Protein 5.1 g/dL (6.6-8.7) L Albumin 2.5 g/dL (3.5-5.2) L Globulin 2.6 g/dL Albumin/Globulin Ratio 0.9 (1.0-2.7) L Current Medications Medications (Trade) Dose Ordered Sig/Rina Route PRN Reason Start Time Stop Time Status Last Admin Dose Admin Acetaminophen (Tylenol) 650 mg Q4H PRN ORAL fever 01/10/17 09:45 02/09/17 09:44 Albuterol/ Ipratropium (DuoNeb 0.5-3(2.5)mg/3ml) 3 ml Q4H PRN HHN Shortness of Breath 01/10/17 09:45 01/15/17 09:44 Amlodipine Besylate 5 mg 5 mg BID ORAL 01/10/17 18:00 02/09/17 17:59 01/12/17 08:38 Atorvastatin Calcium (Lipitor) 20 mg BEDTIME ORAL 01/11/17 21:00 02/10/17 20:59 01/11/17 21:32 Cefepime HCl 2 gm/ Dextrose 110 ml @ 220 mls/hr Q24H IVPB 01/10/17 17:00 01/17/17 16:59 01/11/17 16:18 Clonidine HCl (Catapres) 0.1 mg Q4H PRN ORAL sbp more than 160 01/10/17 09:45 02/09/17 09:44 01/10/17 20:43 Clopidogrel Bisulfate (Plavix) 75 mg DAILY ORAL 01/10/17 10:00 02/09/17 09:59 01/12/17 08:37 Daptomycin/Sodium Chloride (Cubicin/Sodium Chloride) 55 ml @ 100 mls/hr Q48H IV 01/10/17 18:00 01/17/17 17:59 01/10/17 18:05 Dextrose STAT PRN IV Hypoglycemia 01/12/17 08:00 02/11/17 07:59 Donepezil HCl (Aricept) 10 mg DAILY ORAL 01/10/17 11:00 02/09/17 10:59 01/12/17 08:38 Heparin Sodium (Porcine) (Heparin 5000 units/ml) 5,000 units EVERY 12 HOURS SUBQ 01/10/17 21:00 02/09/17 20:59 Future Hold Hydralazine HCl (Apresoline) 25 mg Q8HR ORAL 01/11/17 09:30 02/10/17 09:29 01/12/17 06:30 Insulin Aspart (NovoLOG) BEFORE MEALS AND HS SUBQ 01/10/17 11:30 02/09/17 11:29 01/12/17 06:31 Insulin Detemir (Levemir) 9 units DAILY SUBQ 01/12/17 09:00 02/11/17 08:59 01/12/17 08:40 Levothyroxine Sodium (Synthroid) 25 mcg ACBREAKFAST ORAL 01/10/17 09:00 02/09/17 08:59 01/12/17 06:30 Magnesium Sulfate (Magnesium Sulfate 1gm/100ml) 100 ml @ 100 mls/hr Q1H IVPB 01/12/17 10:30 01/12/17 12:29 UNV Memantine 10 mg 10 mg DAILY ORAL 01/10/17 09:00 02/09/17 08:59 01/12/17 08:38 Nitroglycerin (Ntg) 0.4 mg Q5M X 3 DOSES PRN SL Prn Chest Pain 01/10/17 09:45 02/09/17 09:44 Ondansetron HCl (Zofran) 4 mg Q6H PRN IVP Nausea & Vomiting 01/10/17 09:45 02/09/17 09:44 Pantoprazole (Protonix) 40 mg DAILY ORAL 01/11/17 09:30 02/10/17 09:29 01/12/17 08:37 Polyethylene Glycol (Miralax) 17 gm HSPRN PRN ORAL Constipation 01/10/17 09:45 02/09/17 09:44 Sodium Chloride (Sodium Chloride 1000ml bag) 1,000 ml @ 100 mls/hr Q10H IVLG 01/10/17 11:00 02/09/17 10:59 01/12/17 03:00 Temazepam (Restoril) 15 mg HSPRN PRN ORAL Insomnia 01/10/17 09:45 01/17/17 09:44 GISELLA JEROME M.D. Jan 12, 2017 10:27
--- NOTE | 2017-01-12 13:59 | Cardiology Report ---
APPROVED REPORT EKG Measurement Heart [id number] HI [id number] Normal sinus rhythm Abnormal QRS-T angle, consider primary T wave abnormality Abnormal ECG
[2017-01-12 14:10] LABS: CREATININE 4.3 mg/dL (0.5-0.9)
[2017-01-12 14:23] LABS: CREATININE CLEARANCE,URINE 8 mL/min (71-151)
[2017-01-12 14:24] LABS: TOTAL PROTEIN 24HR URINE 1060.5 mg/24hr (< 150)
--- NOTE | 2017-01-12 14:58 | Pulmonology Progress Note ---
Assessment/Plan Problems: (1) Acute kidney injury (2) Hyperkalemia (3) Osteomyelitis of ankle or foot, right, acute (4) Dementia (5) Diabetes mellitus Assessment/Plan renal w/u in progress continue antibiotics iv fluids check electrolytes. d/w daughter, she wants her to go home with oral antibiotics, will d/w ID med/surg Subjective ROS Limited/Unobtainable: No Interval Events: awake Allergies: Coded Allergies: MORPHINE (Verified Adverse Reaction, Severe, PARADOXICAL REACTION, 10/08/12 ) Objective Last 24 Hour Vital Signs Date Time Temp Pulse Resp B/P Pulse Ox O2 Delivery O2 Flow Rate FiO2 01/12/17 14:31 123/57 01/12/17 12:00 96.8 72 17 123/57 95 Room Air 01/12/17 08:38 81 139/62 01/12/17 08:05 103 18 Room Air 21 01/12/17 08:00 97.0 81 17 139/62 93 Room Air 01/12/17 07:34 80 01/12/17 06:30 137/67 01/12/17 04:10 97.7 77 20 144/63 95 Room Air 01/12/17 04:00 82 01/12/17 00:00 81 01/12/17 00:00 97.0 76 20 130/54 95 Room Air 01/11/17 21:35 111 18 Room Air 01/11/17 21:32 147/87 01/11/17 20:00 94 01/11/17 20:00 99.1 111 20 147/87 98 Room Air 01/11/17 17:47 90 158/60 01/11/17 16:00 98.2 90 21 158/60 95 Room Air 01/11/17 16:00 83 Intake and Output 01/11/17 01/12/17 19:00 07:00 Intake Total 1560 ml 1400 ml Output Total 1100 ml 750 ml Balance 460 ml 650 ml Intake Oral 240 ml 200 ml IV Total 1320 ml 1200 ml Output Urine Total 1100 ml 750 ml # Bowel Movements 1 Objective General Appearance: WD/WN HEENT: normocephalic, atraumatic Respiratory/Chest: chest wall non-tender, lungs clear Cardiovascular: normal peripheral pulses, normal rate Abdomen: normal bowel sounds, soft, non tender, other - peg in place Extremities: no cyanosis, no clubbing Skin: no rash, clean dressing on toe Microbiology Date/Time Source Procedure Growth Status 01/09/17 22:45 Blood Blood Culture - Preliminary Resulted 01/09/17 22:30 Blood Blood Culture - Preliminary NO GROWTH AFTER 48 HOURS Resulted 01/10/17 01:30 Nasal Nares MRSA Culture - Final NO METHICILLIN RESISTANT STAPH AUREUS... Complete 01/10/17 01:30 Rectum VRE Culture - Final Enterococcus Faecium - Vre Complete Laboratory Tests 01/12/17 05:10: White Blood Count 7.6, Red Blood Count 2.85L, Hemoglobin 8.4L, Hematocrit 24.7L , Mean Corpuscular Volume 87, Mean Corpuscular Hemoglobin 29.5, Mean Corpuscular Hemoglobin Concent 34.0, Red Cell Distribution Width 13.0, Platelet Count 88L, Mean Platelet Volume 8.0, Neutrophils (%) (Auto) , Lymphocytes (%) ( Auto) , Monocytes (%) (Auto) , Eosinophils (%) (Auto) , Basophils (%) (Auto) , Differential Total Cells Counted 100, Neutrophils % (Manual) 73, Lymphocytes % ( Manual) 15L, Monocytes % (Manual) 11H, Eosinophils % (Manual) 1, Basophils % ( Manual) 0, Band Neutrophils 0, Platelet Estimate DecreasedL, Platelet Morphology Normal, Red Blood Cell Morphology Normal, Sodium Level 143, Potassium Level 4.6, Chloride Level 108H, Carbon Dioxide Level 21, Anion Gap 14 , Blood Urea Nitrogen 40H, Creatinine 4.3H, Estimat Glomerular Filtration Rate , Glucose Level 181H, Uric Acid 5.8, Calcium Level 7.5L, Phosphorus Level 4.9H, Magnesium Level 1.4L, Total Bilirubin 0.3, Gamma Glutamyl Transpeptidase 24, Aspartate Amino Transf (AST/SGOT) 13, Alanine Aminotransferase (ALT/SGPT) 10, Alkaline Phosphatase 61, Total Protein 5.1L, Albumin 2.5L, Globulin 2.6, Albumin /Globulin Ratio 0.9L 01/12/17 10:00: Creatinine 4.3H, Estimat Glomerular Filtration Rate , Urine Collection Time 24, Urine Total Volume 1050, Urine Creatinine 51, Urine Creatinine 24 Hour 536L, Patient Height Inches (Creat Clear) 67, Patient Weight Pounds (Creat Clear) 180 , Creatinine Clearance 8L, Urine Total Protein mg/dL 101, Urine Total Protein 24 Hour 1060.5H Current Medications Medications (Trade) Dose Ordered Sig/Rina Route PRN Reason Start Time Stop Time Status Last Admin Dose Admin Acetaminophen (Tylenol) 650 mg Q4H PRN ORAL fever 01/10/17 09:45 02/09/17 09:44 Albuterol/ Ipratropium (DuoNeb 0.5-3(2.5)mg/3ml) 3 ml Q4H PRN HHN Shortness of Breath 01/10/17 09:45 01/15/17 09:44 Amlodipine Besylate 5 mg 5 mg BID ORAL 01/10/17 18:00 02/09/17 17:59 01/12/17 08:38 Atorvastatin Calcium (Lipitor) 20 mg BEDTIME ORAL 01/11/17 21:00 02/10/17 20:59 01/11/17 21:32 Cefepime HCl 2 gm/ Dextrose 110 ml @ 220 mls/hr Q24H IVPB 01/10/17 17:00 01/17/17 16:59 01/11/17 16:18 Clonidine HCl (Catapres) 0.1 mg Q4H PRN ORAL sbp more than 160 01/10/17 09:45 02/09/17 09:44 01/10/17 20:43 Clopidogrel Bisulfate (Plavix) 75 mg DAILY ORAL 01/10/17 10:00 02/09/17 09:59 01/12/17 08:37 Daptomycin/Sodium Chloride (Cubicin/Sodium Chloride) 55 ml @ 100 mls/hr Q48H IV 01/10/17 18:00 01/17/17 17:59 01/10/17 18:05 Dextrose (Dextrose 50%) STAT PRN IV Hypoglycemia 01/12/17 08:00 02/11/17 07:59 Donepezil HCl (Aricept) 10 mg DAILY ORAL 01/10/17 11:00 02/09/17 10:59 01/12/17 08:38 Heparin Sodium (Porcine) (Heparin 5000 units/ml) 5,000 units EVERY 12 HOURS SUBQ 01/10/17 21:00 02/09/17 20:59 Future Hold Hydralazine HCl (Apresoline) 25 mg Q8HR ORAL 01/11/17 09:30 02/10/17 09:29 01/12/17 14:31 Insulin Aspart (NovoLOG) BEFORE MEALS AND HS SUBQ 01/10/17 11:30 02/09/17 11:29 01/12/17 11:44 Insulin Detemir (Levemir) 9 units DAILY SUBQ 01/12/17 09:00 02/11/17 08:59 01/12/17 08:40 Levothyroxine Sodium (Synthroid) 25 mcg ACBREAKFAST ORAL 01/10/17 09:00 02/09/17 08:59 01/12/17 06:30 Memantine 10 mg 10 mg DAILY ORAL 01/10/17 09:00 02/09/17 08:59 01/12/17 08:38 Nitroglycerin (Ntg) 0.4 mg Q5M X 3 DOSES PRN SL Prn Chest Pain 01/10/17 09:45 02/09/17 09:44 Ondansetron HCl (Zofran) 4 mg Q6H PRN IVP Nausea & Vomiting 01/10/17 09:45 02/09/17 09:44 Pantoprazole (Protonix) 40 mg DAILY ORAL 01/11/17 09:30 02/10/17 09:29 01/12/17 08:37 Polyethylene Glycol (Miralax) 17 gm HSPRN PRN ORAL Constipation 01/10/17 09:45 02/09/17 09:44 Sodium Chloride (Sodium Chloride 1000ml bag) 1,000 ml @ 100 mls/hr Q10H IVLG 01/10/17 11:00 02/09/17 10:59 01/12/17 12:46 Temazepam (Restoril) 15 mg HSPRN PRN ORAL Insomnia 01/10/17 09:45 01/17/17 09:44 SHYAM NAVA Jan 12, 2017 14:58
--- NOTE | 2017-01-12 15:07 | General Progress Note ---
Assessment/Plan Status: unchanged - serum Cr Status Narrative CrCl 8- SCr 4.3 stable Assessment/Plan Status: - Acute renal failure and hyperKalemia - Renal failure, likely diabetic nephropathy / HTN - h/o Cellulitis in diabetic foot right LE - Decubitus ulcer - Dementia - Diabetes mellitus - Nonpressure ulcer to level of fascia right lateral ankle - S/P ORIF right ankle Plan: Gongora- ARTUR Kidney- pending Adjust BP meds- hydralazine added Avoid Nephrotoxics- Urine studies- Monitor renal parameters- 24 h urine CrCl and total protein- noted Mag supplement Per orders Subjective ROS Limited/Unobtainable: No Constitutional: Reports: malaise, weakness Allergies: Coded Allergies: MORPHINE (Verified Adverse Reaction, Severe, PARADOXICAL REACTION, 10/08/12 ) Objective Last 24 Hour Vital Signs Date Time Temp Pulse Resp B/P Pulse Ox O2 Delivery O2 Flow Rate FiO2 01/12/17 14:31 123/57 01/12/17 12:00 96.8 72 17 123/57 95 Room Air 01/12/17 08:38 81 139/62 01/12/17 08:05 103 18 Room Air 21 01/12/17 08:00 97.0 81 17 139/62 93 Room Air 01/12/17 07:34 80 01/12/17 06:30 137/67 01/12/17 04:10 97.7 77 20 144/63 95 Room Air 01/12/17 04:00 82 01/12/17 00:00 81 01/12/17 00:00 97.0 76 20 130/54 95 Room Air 01/11/17 21:35 111 18 Room Air 01/11/17 21:32 147/87 01/11/17 20:00 94 01/11/17 20:00 99.1 111 20 147/87 98 Room Air 01/11/17 17:47 90 158/60 01/11/17 16:00 98.2 90 21 158/60 95 Room Air 01/11/17 16:00 83 Intake and Output 01/11/17 01/12/17 19:00 07:00 Intake Total 1560 ml 1400 ml Output Total 1100 ml 750 ml Balance 460 ml 650 ml Intake Oral 240 ml 200 ml IV Total 1320 ml 1200 ml Output Urine Total 1100 ml 750 ml # Bowel Movements 1 Laboratory Tests 01/12/17 05:10: White Blood Count 7.6, Red Blood Count 2.85L, Hemoglobin 8.4L, Hematocrit 24.7L , Mean Corpuscular Volume 87, Mean Corpuscular Hemoglobin 29.5, Mean Corpuscular Hemoglobin Concent 34.0, Red Cell Distribution Width 13.0, Platelet Count 88L, Mean Platelet Volume 8.0, Neutrophils (%) (Auto) , Lymphocytes (%) ( Auto) , Monocytes (%) (Auto) , Eosinophils (%) (Auto) , Basophils (%) (Auto) , Differential Total Cells Counted 100, Neutrophils % (Manual) 73, Lymphocytes % ( Manual) 15L, Monocytes % (Manual) 11H, Eosinophils % (Manual) 1, Basophils % ( Manual) 0, Band Neutrophils 0, Platelet Estimate DecreasedL, Platelet Morphology Normal, Red Blood Cell Morphology Normal, Sodium Level 143, Potassium Level 4.6, Chloride Level 108H, Carbon Dioxide Level 21, Anion Gap 14 , Blood Urea Nitrogen 40H, Creatinine 4.3H, Estimat Glomerular Filtration Rate , Glucose Level 181H, Uric Acid 5.8, Calcium Level 7.5L, Phosphorus Level 4.9H, Magnesium Level 1.4L, Total Bilirubin 0.3, Gamma Glutamyl Transpeptidase 24, Aspartate Amino Transf (AST/SGOT) 13, Alanine Aminotransferase (ALT/SGPT) 10, Alkaline Phosphatase 61, Total Protein 5.1L, Albumin 2.5L, Globulin 2.6, Albumin /Globulin Ratio 0.9L 01/12/17 10:00: Creatinine 4.3H, Estimat Glomerular Filtration Rate , Urine Collection Time 24, Urine Total Volume 1050, Urine Creatinine 51, Urine Creatinine 24 Hour 536L, Patient Height Inches (Creat Clear) 67, Patient Weight Pounds (Creat Clear) 180 , Creatinine Clearance 8L, Urine Total Protein mg/dL 101, Urine Total Protein 24 Hour 1060.5H Height (Feet): 5 Height (Inches): 7.00 Weight (Pounds): 180 General Appearance: no apparent distress Cardiovascular: other - variable rate Respiratory/Chest: decreased breath sounds Abdomen: distended Objective other physical exam not changed BERTRAM CASTAÑEDA Jan 12, 2017 15:07
[2017-01-12] MEDS ORDERED: Vitamin B12 1000mcg/ml Inj IM ONE (16:00)
--- NOTE | 2017-01-12 16:57 | Diagnostic Imaging Report ---
Indication: Acute renal failure Technique: Grayscale and duplex images of the kidneys, retroperitoneum, and bladder were obtained. Comparison:12/10/2016 Findings: Right kidney measures 12.1 cm in length. Left kidney measures 9.9 cm in length. Both kidneys demonstrate normal echogenicity. No hydronephrosis. No focal abnormality. Left kidney does demonstrate slightly irregular borders. Right kidney demonstrates unusual axis rotation.. Normal inferior vena cava. Bladder is empty, contains a Gong[place] catheter. No significant change Impression: Essentially unremarkable exam. Negative for hydronephrosis.
[2017-01-12] MEDS: Cefepime HCl 2 GM in D5W 110 ML IVPB SCH (17:17)
[2017-01-12] MEDS ORDERED: Nitroglycerin Subl 0.4mg tab (Bottle Of 25) SL PRN (19:15)
[2017-01-12] MEDS: Norco 5mg/325mg tab ORAL PRN (19:53)
[2017-01-12] MEDS: Atorvastatin 20mg tab ORAL SCH (20:58)
[2017-01-12] MEDS ORDERED: DuoNeb 0.5-3(2.5)mg/3ml neb HHN PRN (21:45)
--- NOTE | 2017-01-12 21:58 | Consultation ---
DATE OF CONSULTATION: 01/12/2017 ENDOCRINOLOGY CONSULTATION CONSULTING PHYSICIAN: Christian Lim M.D. REFERRING PHYSICIAN: Zahra Barrera M.D. REASON FOR CONSULTATION: Diabetes management. HISTORY OF PRESENT ILLNESS: The patient is a 76-year-old female with history of dementia with recent admission to [facility] with osteomyelitis of the right ankle, status post removal of the hardware and the patient was treated with antibiotics. The patient is admitted to the hospital with increased BUN and creatinine, acute kidney injury. Endocrinology was consulted in order to assist in the management of diabetes. PAST MEDICAL HISTORY: 1. Right ankle cellulitis and osteomyelitis. 2. Removal of hardware on 12/15/2016. 3. Diabetes. 4. Hypothyroidism 5. Coronary artery disease. MEDICATIONS: Medications reviewed and reconciled. As an outpatient, she is on combination of NPH and regular insulin. ALLERGIES: Allergy to metformin. FAMILY HISTORY: Noncontributory REVIEW OF SYSTEMS: Limited. PHYSICAL EXAMINATION: GENERAL: The patient is awake. VITAL SIGNS: Temperature 97.2 degrees, pulse 86, respiratory rate 18, and blood pressure 150/76. HEENT: Pupils are equal and reactive to light and accommodation. Sclerae are anicteric. LUNGS: Clear. HEART: Regular. ABDOMEN: Positive bowel sounds. Soft. EXTREMITIES: No cyanosis. LABORATORY DATA: Sodium 142, potassium 4.6, chloride 108, bicarbonate 21, BUN 40, creatinine 1.2, and glucose 181. DIAGNOSES: 1. Acute kidney injury. 2. Recent osteomyelitis on antibiotics, status post removal of the hardware. 3. Diabetes. 4. Hypothyroidism. PLAN: 1. Continue levothyroxine 25 mcg daily 2. Levemir 9 units daily. 3. Insulin requirement has been reduced due to worsening of kidney function. We will follow the glucose values, monitoring and further adjust Thank you, Dr. Barrera, for the courtesy of this consultation. hCristian Lim M.D. DR: HAL/erin JOB#: [id number] CC: DOUGLAS
[2017-01-13] VITALS (9 sets, daily range): BP systolic 135–179; BP diastolic 52–81
[2017-01-13] MEDS: HydrALAZINE 25mg tab ORAL SCH ×3 (06:15→23:40)
[2017-01-13] MEDS: Levothyroxine 25mcg tab ORAL SCH (06:15)
[2017-01-13] MEDS: NovoLOG Insulin Flexpen SUBQ SCH ×4 (06:17→21:54)
--- NOTE | 2017-01-13 06:30 | General Progress Note ---
Assessment/Plan Problem List: (1) Diabetes mellitus ICD Codes: E11.9 - Type 2 diabetes mellitus without complications SNOMED: 38225209 (2) Acute kidney injury ICD Codes: N17.9 - Acute kidney failure, unspecified SNOMED: 42836072 (3) Osteomyelitis of ankle or foot, right, acute ICD Codes: M86.171 - Other acute osteomyelitis, right ankle and foot SNOMED: 594091968 (4) Dementia ICD Codes: F03.90 - Unspecified dementia without behavioral disturbance SNOMED: 12839268 Assessment/Plan continue Levemir 9 units daily continue Novolog insulin coverage Subjective ROS Limited/Unobtainable: Yes Allergies: Coded Allergies: MORPHINE (Verified Adverse Reaction, Severe, PARADOXICAL REACTION, 10/08/12 ) Subjective awake - no complaints Objective Last 24 Hour Vital Signs Date Time Temp Pulse Resp B/P Pulse Ox O2 Delivery O2 Flow Rate FiO2 01/13/17 06:15 145/80 01/13/17 04:00 97.2 87 20 142/78 Room Air 01/13/17 00:00 97.0 74 20 135/62 97 Room Air 01/12/17 21:38 97.5 72 18 146/77 98 Room Air 01/12/17 20:58 144/64 01/12/17 20:00 97.5 72 18 146/72 98 Room Air 01/12/17 19:00 89 16 Room Air 01/12/17 16:00 97.3 89 18 144/64 98 01/12/17 14:31 123/57 01/12/17 12:00 96.8 72 17 123/57 95 Room Air 01/12/17 08:38 81 139/62 01/12/17 08:05 103 18 Room Air 21 01/12/17 08:00 97.0 81 17 139/62 93 Room Air 01/12/17 07:34 80 01/12/17 06:30 137/67 Intake and Output 01/12/17 01/13/17 19:00 07:00 Intake Total 1115 ml 600 ml Output Total 250 ml 500 ml Balance 865 ml 100 ml Intake Oral 340 ml IV Total 775 ml 600 ml Output Urine Total 250 ml 500 ml Laboratory Tests 01/12/17 10:00: Urine Collection Time 24, Urine Total Volume 1050, Urine Creatinine 51, Urine Creatinine 24 Hour 536L, Patient Height Inches (Creat Clear) 67, Patient Weight Pounds (Creat Clear) 180, Creatinine Clearance 8L, Urine Total Protein mg/dL 101 , Urine Total Protein 24 Hour 1060.5H, Creatinine 4.3H, Estimat Glomerular Filtration Rate Height (Feet): 5 Height (Inches): 7.00 Weight (Pounds): 180 General Appearance: no apparent distress Neck: normal alignment Cardiovascular: normal rate Respiratory/Chest: lungs clear Abdomen: normal bowel sounds Edema: no edema noted Arm (L), no edema noted Arm (R), no edema noted Leg (L), no edema noted Leg (R), no edema noted Pedal (L), no edema noted Pedal (R), no edema noted Generalized Objective Current Medications Medications (Trade) Dose Ordered Sig/Rina Route PRN Reason Start Time Stop Time Status Last Admin Dose Admin Acetaminophen (Tylenol) 650 mg Q4H PRN ORAL fever 01/12/17 21:45 02/11/17 21:44 Acetaminophen/ Hydrocodone Bitart ([place] 5/325) 1 tab Q4H PRN ORAL Moderate Pain (Pain Scale 4-6) 01/12/17 19:30 01/19/17 19:29 01/12/17 19:53 Albuterol/ Ipratropium (DuoNeb 0.5-3(2.5)mg/3ml) 3 ml Q4H PRN HHN Shortness of Breath 01/12/17 21:45 01/17/17 21:44 Amlodipine Besylate (Norvasc) 5 mg BID ORAL 01/13/17 09:00 02/12/17 08:59 Atorvastatin Calcium (Lipitor) 20 mg BEDTIME ORAL 01/12/17 21:00 02/11/17 20:59 01/12/17 20:58 Cefepime HCl 2 gm/ Dextrose 110 ml @ 220 mls/hr Q24H IVPB 01/13/17 17:00 01/20/17 16:59 Clonidine HCl (Catapres) 0.1 mg Q4H PRN ORAL sbp more than 160 01/12/17 21:45 02/11/17 21:44 Clopidogrel Bisulfate (Plavix) 75 mg DAILY ORAL 01/13/17 09:00 02/12/17 08:59 Daptomycin 500 mg/ Sodium Chloride 55 ml @ 100 mls/hr Q48H IV 01/14/17 18:00 01/21/17 17:59 Dextrose (Dextrose 50%) STAT PRN IV Hypoglycemia 01/13/17 08:00 02/12/17 07:59 Donepezil HCl (Aricept) 10 mg DAILY ORAL 01/13/17 09:00 02/12/17 08:59 Heparin Sodium (Porcine) 5000 units 5,000 units EVERY 12 HOURS SUBQ 01/10/17 21:00 02/09/17 20:59 Future Hold Hydralazine HCl (Apresoline) 25 mg Q8HR ORAL 01/12/17 22:00 02/11/17 21:59 01/13/17 06:15 Insulin Aspart (NovoLOG) BEFORE MEALS AND HS SUBQ 01/12/17 21:00 02/11/17 20:59 01/13/17 06:17 Insulin Detemir (Levemir) 9 units DAILY SUBQ 01/13/17 09:00 02/12/17 08:59 Levothyroxine Sodium (Synthroid) 25 mcg ACBREAKFAST ORAL 01/13/17 06:30 02/12/17 06:29 01/13/17 06:15 Memantine (Namenda) 10 mg DAILY ORAL 01/13/17 09:00 02/12/17 08:59 Nitroglycerin (Ntg) 0.4 mg Q5M X 3 DOSES PRN SL Prn Chest Pain 01/12/17 19:15 02/11/17 19:14 Ondansetron HCl (Zofran) 4 mg Q6H PRN IVP Nausea & Vomiting 01/12/17 21:45 02/11/17 21:44 Pantoprazole (Protonix) 40 mg DAILY ORAL 01/13/17 09:00 02/12/17 08:59 Polyethylene Glycol (Miralax) 17 gm HSPRN PRN ORAL Constipation 01/13/17 09:45 02/12/17 09:44 Sodium Chloride (Sodium Chloride 1000ml bag) 1,000 ml @ 100 mls/hr Q10H IVLG 01/12/17 19:15 02/11/17 19:14 01/13/17 02:43 Temazepam (Restoril) 15 mg HSPRN PRN ORAL Insomnia 01/13/17 09:45 01/20/17 09:44 Item Value Date Time Bedside Blood Glucose 169 mg/dl H 01/13/17 0617 Bedside Blood Glucose 147 mg/dl H 01/12/17 2244 Bedside Blood Glucose 180 mg/dl H 01/12/17 1725 Bedside Blood Glucose 198 mg/dl H 01/12/17 1144 Bedside Blood Glucose 188 mg/dl H 01/12/17 0840 MEREDITH NEAL 14, 2017 06:30
[2017-01-13 07:51] LABS: INR 1.1 (0.9-1.1); PROTHROMBIN TIME 10.7 SEC (9.30-11.50)
[2017-01-13 08:06] LABS: FERRITIN 443 ng/mL (13-150)
[2017-01-13 08:07] LABS: MEAN CORPUSCULAR HEMOGLOBIN 28.7 PG (27.0-31.0); MEAN CORPUSCULAR HGB CONC 33.2 G/DL (32.0-36.0); MEAN CORPUSCULAR VOLUME 86 FL (80-99); MEAN PLATELET VOLUME 8.4 FL (6.5-10.1); PLATELET COUNT 90 K/UL (150-450); RED BLOOD COUNT 2.86 M/UL (4.20-5.40); RED CELL DISTRIBUTION WIDTH 13.5 % (11.6-14.8); WHITE BLOOD COUNT 8.4 K/UL (4.8-10.8)
[2017-01-13 08:16] LABS: ALANINE AMINOTRANSFERASE 9 U/L (3-33); ALBUMIN/GLOBULIN RATIO 0.9 (1.0-2.7); ANION GAP 17 (5-15); ASPARTATE AMINO TRANSFERASE 13 U/L (5-40); CALCIUM 7.9 mg/dL (8.6-10.2); CARBON DIOXIDE 19 mEQ/L (20-30); CHLORIDE 106 mEQ/L (98-107); CREATININE 4.7 mg/dL (0.5-0.9); HEMOLYSIS 1; MAGNESIUM 2.2 mg/dL (1.7-2.5); PHOSPHORUS 5.9 mg/dL (2.5-4.8); POTASSIUM 4.6 mEQ/L (3.4-4.9); SODIUM 142 mEQ/L (135-145); TOTAL PROTEIN 5.2 g/dL (6.6-8.7)
[2017-01-13 08:17] LABS: CRP QUANT 7.7 mg/dL (< 0.5); URIC ACID 5.8 mg/dL (3.0-7.5)
[2017-01-13] MEDS ORDERED: Memantine 10mg tab ORAL SCH (09:00)
[2017-01-13] MEDS ORDERED: Levemir Flexpen SUBQ SCH (09:00)
[2017-01-13] MEDS ORDERED: Donepezil 10mg tab ORAL SCH (09:00)
[2017-01-13] MEDS ORDERED: Miralax 17gm pkt ORAL PRN (09:45)
--- NOTE | 2017-01-13 10:25 | Infectious Diseases Prog Note ---
Assessment/Plan Assessment/Plan ASSESSMENT: 76 y/o female with: // +ve Blood cx : CoNS ? contaminant , vs PICC // Right medial ankle cellulitis / osteomyelitis / hardware infection - SP hardware removal 12/15 - - 3P bone scan: 3 phase increased activity in region of distal aspect of right fibula compatible with hardware loosening and/or osteomyelitis - XR: surgical hardware seen reducing old healed distal fibular and medial malleolar fractures. No acute fractures. No dislocations. Bones are demineralized. - elevated ESR, CRP - h/o right ankle ORIF // MARVIN ( IV Vanco ? related ) // Dementia // DM // h/o CAD // No ABX allergies // Full Code PLAN: - Cont AB Rx until 01/26/14 ( 6 weeks IV ABX from date of HWR ) , on cefepime and Dapto - weekly CBC, CMP, ESR, CRP while on IV ABX - monitor CBC, temperatures - monitor BMP - wound care - remove PICC , AND send the tip for Cx Subjective Constitutional: Denies: anorexia, chills, drenching sweats, fatigue, fever, no symptoms, other Allergies: Coded Allergies: MORPHINE (Verified Adverse Reaction, Severe, PARADOXICAL REACTION, 10/08/12 ) Objective Vital Signs Last 24 Hour Vital Signs Date Time Temp Pulse Resp B/P Pulse Ox O2 Delivery O2 Flow Rate FiO2 01/13/17 08:19 83 145/52 01/13/17 08:07 97.2 83 14 145/52 96 Room Air 01/13/17 07:30 71 18 Room Air 01/13/17 06:15 145/80 01/13/17 04:00 97.2 87 20 142/78 Room Air 01/13/17 00:00 97.0 74 20 135/62 97 Room Air 01/12/17 21:38 97.5 72 18 146/77 98 Room Air 01/12/17 20:58 144/64 01/12/17 20:00 97.5 72 18 146/72 98 Room Air 01/12/17 19:00 89 16 Room Air 21 01/12/17 16:00 97.3 89 18 144/64 98 01/12/17 14:31 123/57 01/12/17 12:00 96.8 72 17 123/57 95 Room Air Height (Feet): 5 Height (Inches): 7.00 Weight (Pounds): 180 HEENT: mucous membranes moist Respiratory/Chest: no accessory muscle use Cardiovascular: regular rhythm Abdomen: no organomegaly Laboratory Tests Test 01/13/17 05:55 White Blood Count 8.4 K/UL (4.8-10.8) Red Blood Count 2.86 M/UL (4.20-5.40) L Hemoglobin 8.2 G/DL (12.0-16.0) L Hematocrit 24.7 % (37.0-47.0) L Mean Corpuscular Volume 86 FL (80-99) Mean Corpuscular Hemoglobin 28.7 PG (27.0-31.0) Mean Corpuscular Hemoglobin Concent 33.2 G/DL (32.0-36.0) Red Cell Distribution Width 13.5 % (11.6-14.8) Platelet Count 90 K/UL (150-450) L Mean Platelet Volume 8.4 FL (6.5-10.1) Neutrophils (%) (Auto) % (45.0-75.0) Lymphocytes (%) (Auto) % (20.0-45.0) Monocytes (%) (Auto) % (1.0-10.0) Eosinophils (%) (Auto) % (0.0-3.0) Basophils (%) (Auto) % (0.0-2.0) Neutrophils % (Manual) Pending Lymphocytes % (Manual) Pending Platelet Estimate Pending Platelet Morphology Pending Prothrombin Time 10.7 SEC (9.30-11.50) Prothromb Time International Ratio 1.1 (0.9-1.1) Activated Partial Thromboplast Time 29 SEC (23-33) Sodium Level 142 mEQ/L (135-145) Potassium Level 4.6 mEQ/L (3.4-4.9) Chloride Level 106 mEQ/L (98-107) Carbon Dioxide Level 19 mEQ/L (20-30) L Anion Gap 17 (5-15) H Blood Urea Nitrogen 44 mg/dL (7-23) H Creatinine 4.7 mg/dL (0.5-0.9) H Estimat Glomerular Filtration Rate mL/min (>60) Glucose Level 161 mg/dL (74-106) H Uric Acid 5.8 mg/dL (3.0-7.5) Calcium Level 7.9 mg/dL (8.6-10.2) L Phosphorus Level 5.9 mg/dL (2.5-4.8) H Magnesium Level 2.2 mg/dL (1.7-2.5) Iron Level 31 ug/dL (37-145) L Total Iron Binding Capacity 159 ug/dL (250-400) L Percent Iron Saturation 19 % (15-50) Unsaturated Iron Binding 128 ug/dL (112-346) Ferritin 443 ng/mL (13-150) H Total Bilirubin 0.2 mg/dL (0.0-1.2) Aspartate Amino Transf (AST/SGOT) 13 U/L (5-40) Alanine Aminotransferase (ALT/SGPT) 9 U/L (3-33) Alkaline Phosphatase 63 U/L (35-104) C-Reactive Protein, Quantitative 7.7 mg/dL (< 0.5) H Pro-B-Type Natriuretic Peptide 2865 pg/mL (0-450) H Total Protein 5.2 g/dL (6.6-8.7) L Albumin 2.5 g/dL (3.5-5.2) L Globulin 2.7 g/dL Albumin/Globulin Ratio 0.9 (1.0-2.7) L Vitamin B12 Level > 2000 pg/mL (211-946) H Folate Pending Current Medications Medications (Trade) Dose Ordered Sig/Rina Route PRN Reason Start Time Stop Time Status Last Admin Dose Admin Acetaminophen (Tylenol) 650 mg Q4H PRN ORAL fever 01/12/17 21:45 02/11/17 21:44 Acetaminophen/ Hydrocodone Bitart ([place] 5/325) 1 tab Q4H PRN ORAL Moderate Pain (Pain Scale 4-6) 01/12/17 19:30 01/19/17 19:29 01/12/17 19:53 Albuterol/ Ipratropium (DuoNeb 0.5-3(2.5)mg/3ml) 3 ml Q4H PRN HHN Shortness of Breath 01/12/17 21:45 01/17/17 21:44 Amlodipine Besylate (Norvasc) 5 mg BID ORAL 01/13/17 09:00 02/12/17 08:59 01/13/17 08:19 Atorvastatin Calcium (Lipitor) 20 mg BEDTIME ORAL 01/12/17 21:00 02/11/17 20:59 01/12/17 20:58 Cefepime HCl 2 gm/ Dextrose 110 ml @ 220 mls/hr Q24H IVPB 01/13/17 17:00 01/20/17 16:59 Clonidine HCl (Catapres) 0.1 mg Q4H PRN ORAL sbp more than 160 01/12/17 21:45 02/11/17 21:44 Clopidogrel Bisulfate (Plavix) 75 mg DAILY ORAL 01/13/17 09:00 02/12/17 08:59 01/13/17 08:17 Daptomycin 500 mg/ Sodium Chloride 55 ml @ 100 mls/hr Q48H IV 01/14/17 18:00 01/21/17 17:59 Dextrose (Dextrose 50%) STAT PRN IV Hypoglycemia 01/13/17 08:00 02/12/17 07:59 Donepezil HCl (Aricept) 10 mg DAILY ORAL 01/13/17 09:00 02/12/17 08:59 01/13/17 08:17 Heparin Sodium (Porcine) 5000 units 5,000 units EVERY 12 HOURS SUBQ 01/10/17 21:00 02/09/17 20:59 Future Hold Hydralazine HCl (Apresoline) 25 mg Q8HR ORAL 01/12/17 22:00 02/11/17 21:59 01/13/17 06:15 Insulin Aspart (NovoLOG) BEFORE MEALS AND HS SUBQ 01/12/17 21:00 02/11/17 20:59 01/13/17 06:17 Insulin Detemir (Levemir) 9 units DAILY SUBQ 01/13/17 09:00 02/12/17 08:59 01/13/17 08:20 Levothyroxine Sodium (Synthroid) 25 mcg ACBREAKFAST ORAL 01/13/17 06:30 02/12/17 06:29 01/13/17 06:15 Memantine (Namenda) 10 mg DAILY ORAL 01/13/17 09:00 02/12/17 08:59 01/13/17 08:17 Nitroglycerin (Ntg) 0.4 mg Q5M X 3 DOSES PRN SL Prn Chest Pain 01/12/17 19:15 02/11/17 19:14 Ondansetron HCl (Zofran) 4 mg Q6H PRN IVP Nausea & Vomiting 01/12/17 21:45 02/11/17 21:44 Pantoprazole (Protonix) 40 mg DAILY ORAL 01/13/17 09:00 02/12/17 08:59 01/13/17 08:17 Polyethylene Glycol (Miralax) 17 gm HSPRN PRN ORAL Constipation 01/13/17 09:45 02/12/17 09:44 Sodium Chloride (Sodium Chloride 1000ml bag) 1,000 ml @ 100 mls/hr Q10H IVLG 01/12/17 19:15 02/11/17 19:14 01/13/17 02:43 Temazepam (Restoril) 15 mg HSPRN PRN ORAL Insomnia 01/13/17 09:45 01/20/17 09:44 GISELLA JEROME M.D. Jan 13, 2017 10:25
--- NOTE | 2017-01-13 12:22 | General Progress Note ---
Assessment/Plan Status: unchanged - clinically, deteriorating - renal parameters Status Narrative rising Cr Assessment/Plan Status: - Acute renal failure and hyperKalemia - Renal failure, likely diabetic nephropathy / HTN - h/o Cellulitis in diabetic foot right LE - Decubitus ulcer - Dementia - Diabetes mellitus - Nonpressure ulcer to level of fascia right lateral ankle - S/P ORIF right ankle Plan: [place]- [facility] Kidney- unremarkable Adjust BP meds- hydralazine added Avoid Nephrotoxics- Urine studies- Monitor renal parameters- 24 h urine CrCl and total protein- noted DC mindaltering meds- if worsened BUN Cr , will require HD Per orders Subjective ROS Limited/Unobtainable: No Constitutional: Reports: malaise, weakness Allergies: Coded Allergies: MORPHINE (Verified Adverse Reaction, Severe, PARADOXICAL REACTION, 10/08/12 ) Objective Last 24 Hour Vital Signs Date Time Temp Pulse Resp B/P Pulse Ox O2 Delivery O2 Flow Rate FiO2 01/13/17 11:20 97.0 72 15 148/68 98 Room Air 01/13/17 08:19 83 145/52 01/13/17 08:07 97.2 83 14 145/52 96 Room Air 01/13/17 07:30 71 18 Room Air 21 01/13/17 06:15 145/80 01/13/17 04:00 97.2 87 20 142/78 Room Air 01/13/17 00:00 97.0 74 20 135/62 97 Room Air 01/12/17 21:38 97.5 72 18 146/77 98 Room Air 01/12/17 20:58 144/64 01/12/17 20:00 97.5 72 18 146/72 98 Room Air 01/12/17 19:00 89 16 Room Air 21 01/12/17 16:00 97.3 89 18 144/64 98 01/12/17 14:31 123/57 Intake and Output 01/12/17 01/13/17 19:00 07:00 Intake Total 1115 ml 900 ml Output Total 250 ml 500 ml Balance 865 ml 400 ml Intake Oral 340 ml IV Total 775 ml 900 ml Output Urine Total 250 ml 500 ml Laboratory Tests 01/13/17 05:55: White Blood Count 8.4, Red Blood Count 2.86L, Hemoglobin 8.2L, Hematocrit 24.7L , Mean Corpuscular Volume 86, Mean Corpuscular Hemoglobin 28.7, Mean Corpuscular Hemoglobin Concent 33.2, Red Cell Distribution Width 13.5, Platelet Count 90L, Mean Platelet Volume 8.4, Neutrophils (%) (Auto) , Lymphocytes (%) ( Auto) , Monocytes (%) (Auto) , Eosinophils (%) (Auto) , Basophils (%) (Auto) , Neutrophils % (Manual) [Pending], Lymphocytes % (Manual) [Pending], Platelet Estimate [Pending], Platelet Morphology [Pending], Prothrombin Time 10.7, Prothromb Time International Ratio 1.1, Activated Partial Thromboplast Time 29, Sodium Level 142, Potassium Level 4.6, Chloride Level 106, Carbon Dioxide Level 19L, Anion Gap 17H, Blood Urea Nitrogen 44H, Creatinine 4.7H, Estimat Glomerular Filtration Rate , Glucose Level 161H, Uric Acid 5.8, Calcium Level 7.9L, Phosphorus Level 5.9H, Magnesium Level 2.2, Iron Level 31L, Total Iron Binding Capacity 159L, Percent Iron Saturation 19, Unsaturated Iron Binding 128 , Ferritin 443H, Total Bilirubin 0.2, Aspartate Amino Transf (AST/SGOT) 13, Alanine Aminotransferase (ALT/SGPT) 9, Alkaline Phosphatase 63, C-Reactive Protein, Quantitative 7.7H, Pro-B-Type Natriuretic Peptide 2865H, Total Protein 5.2L, Albumin 2.5L, Globulin 2.7, Albumin/Globulin Ratio 0.9L, Vitamin B12 Level > 2000H, Folate [Pending] Height (Feet): 5 Height (Inches): 7.00 Weight (Pounds): 180 General Appearance: no apparent distress, lethargic Cardiovascular: normal rate Respiratory/Chest: decreased breath sounds Abdomen: distended Objective other physical exam not changed BERTRAM CASTAÑEDA Jan 13, 2017 12:22
[2017-01-13 12:27] LABS: BAND NEUTROPHILS % (MANUAL) 0 % (0-8); BASOPHILS % (MANUAL) 0 % (0-2); EOSINOPHILS % (MANUAL) 5 % (0-3); LYMPHOCYTES % (MANUAL) 8 % (20-45); NEUTROPHILS % (MANUAL) 81 % (45-75); PLATELET ESTIMATE DECREASED; PLATELET MORPHOLOGY NORMAL; TOTAL CELLS COUNTED 100
[2017-01-13] MEDS ORDERED: Sodium Bicarbonate 8.4% 50ml Inj ONE (14:43)
[2017-01-13] MEDS ORDERED: Heparin 2000 units/Ns 1000ml 1,000 ML ONE (14:43)
[2017-01-13] MEDS ORDERED: Heparin Sod 1000 units/ml 10ml ONE (14:43)
[2017-01-13] MEDS ORDERED: Lidocaine 1% Plain 30 ml INJ ONE ×2 (14:43→17:00)
[2017-01-13] MEDS ORDERED: Sodium Bicarbonate 8.4% 50ml Inj IV ONE (15:45)
[2017-01-13] MEDS ORDERED: Heparin 2000 units/Ns 1000ml INJ ONE (15:45)
[2017-01-13] MEDS ORDERED: Heparin Sod 1000 units/ml 10ml INJ ONE (15:45)
[2017-01-13] MEDS: Cefepime HCl 2 GM in D5W 110 ML IVPB SCH ×2 (17:00→21:15)
--- NOTE | 2017-01-13 17:35 | Diagnostic Imaging Report ---
Artifact of a Jos Indication: PREOP Technique: Procedural timeout performed. Total sterile technique, including sterile probe cover and sterile gel, sterile gloves, hand hygiene, hat, mask, sterile gown, large sterile drape, and preparation with 2% chlorhexidine utilized. Local anesthesia with 1% lidocaine. Under real-time ultrasound guidance, puncture right internal jugular vein using 18-gauge needle, passage 0.035 guidewire, over which was passed serial dilators and then a 13 [place] 15 cm triple-lumen temporary dialysis catheter. Guidewire was removed. Catheter ports were aspirated and flushed. The catheter was fixed to the skin. Patient tolerated procedure well. Compression radiograph documents catheter tip position at the high right atrium. Total fluoroscopy time 0.2 minutes. Total dose area product 3 dGycm2. Comparison: None Findings: As above Impression: Successful placement of right transjugular temporary dialysis catheter, as described.
[2017-01-13] MEDS: Atorvastatin 20mg tab ORAL SCH (22:07)
--- NOTE | 2017-01-13 22:36 | Pulmonology Progress Note ---
Assessment/Plan Problems: (1) Acute kidney injury (2) Hyperkalemia (3) Osteomyelitis of ankle or foot, right, acute (4) Dementia (5) Diabetes mellitus Assessment/Plan renal w/u in progress continue antibiotics iv fluids check electrolytes. d/w daughter, she wants her to group home without any antibiotics med/surg bun/creatinine stable Subjective ROS Limited/Unobtainable: No Interval Events: no new complains Allergies: Coded Allergies: MORPHINE (Verified Adverse Reaction, Severe, PARADOXICAL REACTION, 10/08/12 ) Objective Last 24 Hour Vital Signs Date Time Temp Pulse Resp B/P Pulse Ox O2 Delivery O2 Flow Rate FiO2 01/13/17 22:07 82 164/78 01/13/17 19:00 97.3 70 18 138/80 97 Room Air 01/13/17 15:55 71 25 179/75 97 Room Air 01/13/17 15:50 66 12 178/80 98 Room Air 01/13/17 15:45 73 25 171/81 98 Room Air 01/13/17 15:17 59 16 01/13/17 11:20 97.0 72 15 148/68 98 Room Air 01/13/17 08:19 83 145/52 01/13/17 08:07 97.2 83 14 145/52 96 Room Air 01/13/17 07:30 71 18 Room Air 21 01/13/17 06:15 145/80 01/13/17 04:00 97.2 87 20 142/78 Room Air 01/13/17 00:00 97.0 74 20 135/62 97 Room Air Intake and Output 01/12/17 01/13/17 19:00 07:00 Intake Total 1115 ml 1000 ml Output Total 250 ml 500 ml Balance 865 ml 500 ml Intake Oral 340 ml IV Total 775 ml 1000 ml Output Urine Total 250 ml 500 ml Objective General Appearance: WD/WN HEENT: normocephalic, atraumatic Respiratory/Chest: chest wall non-tender, lungs clear Cardiovascular: normal peripheral pulses, normal rate Abdomen: normal bowel sounds, soft, non tender, other - peg in place Extremities: no cyanosis, no clubbing Skin: no rash, clean dressing on toe Laboratory Tests 01/13/17 05:55: White Blood Count 8.4, Red Blood Count 2.86L, Hemoglobin 8.2L, Hematocrit 24.7L , Mean Corpuscular Volume 86, Mean Corpuscular Hemoglobin 28.7, Mean Corpuscular Hemoglobin Concent 33.2, Red Cell Distribution Width 13.5, Platelet Count 90L, Mean Platelet Volume 8.4, Neutrophils (%) (Auto) , Lymphocytes (%) ( Auto) , Monocytes (%) (Auto) , Eosinophils (%) (Auto) , Basophils (%) (Auto) , Differential Total Cells Counted 100, Neutrophils % (Manual) 81H, Lymphocytes % (Manual) 8L, Monocytes % (Manual) 6, Eosinophils % (Manual) 5H, Basophils % ( Manual) 0, Band Neutrophils 0, Platelet Estimate DecreasedL, Platelet Morphology Normal, Red Blood Cell Morphology Normal, Prothrombin Time 10.7, Prothromb Time International Ratio 1.1, Activated Partial Thromboplast Time 29, Sodium Level 142, Potassium Level 4.6, Chloride Level 106, Carbon Dioxide Level 19L, Anion Gap 17H, Blood Urea Nitrogen 44H, Creatinine 4.7H, Estimat Glomerular Filtration Rate , Glucose Level 161H, Uric Acid 5.8, Calcium Level 7.9L, Phosphorus Level 5.9H, Magnesium Level 2.2, Iron Level 31L, Total Iron Binding Capacity 159L, Percent Iron Saturation 19, Unsaturated Iron Binding 128 , Ferritin 443H, Total Bilirubin 0.2, Aspartate Amino Transf (AST/SGOT) 13, Alanine Aminotransferase (ALT/SGPT) 9, Alkaline Phosphatase 63, C-Reactive Protein, Quantitative 7.7H, Pro-B-Type Natriuretic Peptide 2865H, Total Protein 5.2L, Albumin 2.5L, Globulin 2.7, Albumin/Globulin Ratio 0.9L, Vitamin B12 Level > 2000H, Folate [Pending] Current Medications Medications (Trade) Dose Ordered Sig/Rina Route PRN Reason Start Time Stop Time Status Last Admin Dose Admin Acetaminophen (Tylenol) 650 mg Q4H PRN ORAL fever 01/12/17 21:45 02/11/17 21:44 Acetaminophen/ Hydrocodone Bitart ([place] 5/325) 1 tab Q4H PRN ORAL Moderate Pain (Pain Scale 4-6) 01/12/17 19:30 01/19/17 19:29 01/12/17 19:53 Albuterol/ Ipratropium (DuoNeb 0.5-3(2.5)mg/3ml) 3 ml Q4H PRN HHN Shortness of Breath 01/12/17 21:45 01/17/17 21:44 Amlodipine Besylate (Norvasc) 5 mg BID ORAL 01/13/17 09:00 02/12/17 08:59 01/13/17 22:07 Atorvastatin Calcium (Lipitor) 20 mg BEDTIME ORAL 01/12/17 21:00 02/11/17 20:59 01/13/17 22:07 Cefepime HCl 2 gm/ Dextrose 110 ml @ 220 mls/hr Q24H IVPB 01/13/17 17:00 01/20/17 16:59 01/13/17 21:15 Clonidine HCl (Catapres) 0.1 mg Q4H PRN ORAL sbp more than 160 01/12/17 21:45 02/11/17 21:44 Clopidogrel Bisulfate (Plavix) 75 mg DAILY ORAL 01/13/17 09:00 02/12/17 08:59 01/13/17 08:17 Daptomycin 500 mg/ Sodium Chloride 55 ml @ 100 mls/hr Q48H IV 01/14/17 18:00 01/21/17 17:59 Dextrose (Dextrose 50%) STAT PRN IV Hypoglycemia 01/13/17 08:00 02/12/17 07:59 Heparin Sodium (Porcine) 5000 units 5,000 units EVERY 12 HOURS SUBQ 01/10/17 21:00 02/09/17 20:59 Future Hold Hydralazine HCl (Apresoline) 25 mg Q8HR ORAL 01/12/17 22:00 02/11/17 21:59 01/13/17 06:15 Insulin Aspart (NovoLOG) BEFORE MEALS AND HS SUBQ 01/12/17 21:00 02/11/17 20:59 01/13/17 21:54 Insulin Detemir (Levemir) 9 units DAILY SUBQ 01/13/17 09:00 02/12/17 08:59 01/13/17 08:20 Levothyroxine Sodium (Synthroid) 25 mcg ACBREAKFAST ORAL 01/13/17 06:30 02/12/17 06:29 01/13/17 06:15 Nitroglycerin (Ntg) 0.4 mg Q5M X 3 DOSES PRN SL Prn Chest Pain 01/12/17 19:15 02/11/17 19:14 Ondansetron HCl (Zofran) 4 mg Q6H PRN IVP Nausea & Vomiting 01/12/17 21:45 02/11/17 21:44 Pantoprazole (Protonix) 40 mg DAILY ORAL 01/13/17 09:00 02/12/17 08:59 01/13/17 08:17 Polyethylene Glycol (Miralax) 17 gm HSPRN PRN ORAL Constipation 01/13/17 09:45 02/12/17 09:44 Sodium Chloride (Sodium Chloride 1000ml bag) 1,000 ml @ 100 mls/hr Q10H IVLG 01/12/17 19:15 02/11/17 19:14 01/13/17 18:16 Temazepam (Restoril) 15 mg HSPRN PRN ORAL Insomnia 01/13/17 09:45 01/20/17 09:44 SHYAM NAVA Jan 13, 2017 22:36
[2017-01-14] VITALS: BP 133/66
[2017-01-14 04:00] VITALS: BP 123/68
[2017-01-14] MEDS: HydrALAZINE 25mg tab ORAL SCH ×2 (06:07→14:00)
[2017-01-14] MEDS: Levothyroxine 25mcg tab ORAL SCH (06:08)
[2017-01-14] MEDS: NovoLOG Insulin Flexpen SUBQ SCH ×4 (06:10→20:19)
--- NOTE | 2017-01-14 07:00 | General Progress Note ---
Assessment/Plan Problem List: (1) Diabetes mellitus ICD Codes: E11.9 - Type 2 diabetes mellitus without complications SNOMED: 89596770 (2) Acute kidney injury ICD Codes: N17.9 - Acute kidney failure, unspecified SNOMED: 46367596 (3) Osteomyelitis of ankle or foot, right, acute ICD Codes: M86.171 - Other acute osteomyelitis, right ankle and foot SNOMED: 259724456 (4) Dementia ICD Codes: F03.90 - Unspecified dementia without behavioral disturbance SNOMED: 39234639 Assessment/Plan increase Levemir to 12 units daily add Starlix 60 mg ac tid continue Novolog insulin coverage Subjective Allergies: Coded Allergies: MORPHINE (Verified Adverse Reaction, Severe, PARADOXICAL REACTION, 10/08/12 ) All Systems: reviewed and negative except above Subjective events noted Objective Last 24 Hour Vital Signs Date Time Temp Pulse Resp B/P Pulse Ox O2 Delivery O2 Flow Rate FiO2 01/14/17 06:07 123/68 01/14/17 04:00 96.3 79 20 123/68 96 Room Air 01/14/17 00:00 97.4 68 20 133/66 98 Room Air 01/13/17 23:40 133/65 01/13/17 22:07 82 164/78 01/13/17 20:31 78 17 Room Air 21 01/13/17 19:00 97.3 70 18 138/80 97 Room Air 01/13/17 15:55 71 25 179/75 97 Room Air 01/13/17 15:50 66 12 178/80 98 Room Air 01/13/17 15:45 73 25 171/81 98 Room Air 01/13/17 15:17 59 16 01/13/17 11:20 97.0 72 15 148/68 98 Room Air 01/13/17 08:19 83 145/52 01/13/17 08:07 97.2 83 14 145/52 96 Room Air 01/13/17 07:30 71 18 Room Air 21 Intake and Output 01/13/17 01/14/17 19:00 07:00 Intake Total 800 ml 360 ml Output Total 250 ml 450 ml Balance 550 ml -90 ml Intake Oral 400 ml 360 ml IV Total 400 ml Output Urine Total 250 ml 450 ml Laboratory Tests 01/14/17 04:55: White Blood Count [Pending], Red Blood Count [Pending], Hemoglobin [Pending], Hematocrit [Pending], Mean Corpuscular Volume [Pending], Mean Corpuscular Hemoglobin [Pending], Mean Corpuscular Hemoglobin Concent [Pending], Red Cell Distribution Width [Pending], Platelet Count [Pending], Mean Platelet Volume [ Pending], Neutrophils (%) (Auto) [Pending], Lymphocytes (%) (Auto) [Pending], Monocytes (%) (Auto) [Pending], Eosinophils (%) (Auto) [Pending], Basophils (%) (Auto) [Pending], Prothrombin Time [Pending], Prothromb Time International Ratio [Pending], Activated Partial Thromboplast Time [Pending], Sodium Level [ Pending], Potassium Level [Pending], Chloride Level [Pending], Carbon Dioxide Level [Pending], Blood Urea Nitrogen [Pending], Creatinine [Pending], Estimat Glomerular Filtration Rate [Pending], Glucose Level [Pending], Uric Acid [ Pending], Calcium Level [Pending], Phosphorus Level [Pending], Magnesium Level [ Pending], Total Bilirubin [Pending], Aspartate Amino Transf (AST/SGOT) [Pending] , Alanine Aminotransferase (ALT/SGPT) [Pending], Alkaline Phosphatase [Pending] , C-Reactive Protein, Quantitative [Pending], Pro-B-Type Natriuretic Peptide [ Pending], Total Protein [Pending], Albumin [Pending], Globulin [Pending] Height (Feet): 5 Height (Inches): 7.00 Weight (Pounds): 180 General Appearance: no apparent distress Neck: normal alignment Cardiovascular: regular rhythm Respiratory/Chest: lungs clear Abdomen: normal bowel sounds Objective Current Medications Medications (Trade) Dose Ordered Sig/Rina Route PRN Reason Start Time Stop Time Status Last Admin Dose Admin Acetaminophen (Tylenol) 650 mg Q4H PRN ORAL fever 01/12/17 21:45 02/11/17 21:44 Acetaminophen/ Hydrocodone Bitart ([place] 5/325) 1 tab Q4H PRN ORAL Moderate Pain (Pain Scale 4-6) 01/12/17 19:30 01/19/17 19:29 01/12/17 19:53 Albuterol/ Ipratropium (DuoNeb 0.5-3(2.5)mg/3ml) 3 ml Q4H PRN HHN Shortness of Breath 01/12/17 21:45 01/17/17 21:44 Amlodipine Besylate (Norvasc) 5 mg BID ORAL 01/13/17 09:00 02/12/17 08:59 01/13/17 22:07 Atorvastatin Calcium (Lipitor) 20 mg BEDTIME ORAL 01/12/17 21:00 02/11/17 20:59 01/13/17 22:07 Cefepime HCl 2 gm/ Dextrose 110 ml @ 220 mls/hr Q24H IVPB 01/13/17 17:00 01/20/17 16:59 01/13/17 21:15 Clonidine HCl (Catapres) 0.1 mg Q4H PRN ORAL sbp more than 160 01/12/17 21:45 02/11/17 21:44 Clopidogrel Bisulfate (Plavix) 75 mg DAILY ORAL 01/13/17 09:00 02/12/17 08:59 01/13/17 08:17 Daptomycin 500 mg/ Sodium Chloride 55 ml @ 100 mls/hr Q48H IV 01/14/17 18:00 01/21/17 17:59 Dextrose (Dextrose 50%) STAT PRN IV Hypoglycemia 01/13/17 08:00 02/12/17 07:59 Heparin Sodium (Porcine) 5000 units 5,000 units EVERY 12 HOURS SUBQ 01/10/17 21:00 02/09/17 20:59 Future Hold Hydralazine HCl (Apresoline) 25 mg Q8HR ORAL 01/12/17 22:00 02/11/17 21:59 01/14/17 06:07 Insulin Aspart (NovoLOG) BEFORE MEALS AND HS SUBQ 01/12/17 21:00 02/11/17 20:59 01/14/17 06:10 Insulin Detemir (Levemir) 9 units DAILY SUBQ 01/13/17 09:00 02/12/17 08:59 01/13/17 08:20 Levothyroxine Sodium (Synthroid) 25 mcg ACBREAKFAST ORAL 01/13/17 06:30 02/12/17 06:29 01/14/17 06:08 Nitroglycerin (Ntg) 0.4 mg Q5M X 3 DOSES PRN SL Prn Chest Pain 3/13/17 19:15 02/11/17 19:14 Ondansetron HCl (Zofran) 4 mg Q6H PRN IVP Nausea & Vomiting 01/12/17 21:45 02/11/17 21:44 Pantoprazole (Protonix) 40 mg DAILY ORAL 01/13/17 09:00 02/12/17 08:59 01/13/17 08:17 Polyethylene Glycol (Miralax) 17 gm HSPRN PRN ORAL Constipation 01/13/17 09:45 02/12/17 09:44 Sodium Chloride (Sodium Chloride 1000ml bag) 1,000 ml @ 100 mls/hr Q10H IVLG 01/12/17 19:15 02/11/17 19:14 01/14/17 04:40 Temazepam (Restoril) 15 mg HSPRN PRN ORAL Insomnia 01/13/17 09:45 01/20/17 09:44 01/13/17 23:50 Item Value Date Time Bedside Blood Glucose 150 mg/dl H 01/14/17 0616 Bedside Blood Glucose 150 mg/dl H 01/13/17 2154 Bedside Blood Glucose 210 mg/dl H 01/13/17 1818 Bedside Blood Glucose 245 mg/dl H 01/13/17 1139 Bedside Blood Glucose 169 mg/dl H 01/13/17 0820 Bedside Blood Glucose 169 mg/dl H 01/13/17 0617 MEREDITH NEAL 15, 2017 07:00
[2017-01-14 07:20] LABS: BASOPHILS % (AUTO) 0.5 % (0.0-2.0); LYMPHOCYTES % (AUTO) 10.8 % (20.0-45.0); MEAN CORPUSCULAR HEMOGLOBIN 28.9 PG (27.0-31.0); MEAN CORPUSCULAR HGB CONC 33.3 G/DL (32.0-36.0); MEAN CORPUSCULAR VOLUME 87 FL (80-99); MEAN PLATELET VOLUME 7.5 FL (6.5-10.1); MONOCYTES % (AUTO) 6.2 % (1.0-10.0); NEUTROPHILS % (AUTO) 81.5 % (45.0-75.0); PLATELET COUNT 113 K/UL (150-450); RED BLOOD COUNT 3.03 M/UL (4.20-5.40); RED CELL DISTRIBUTION WIDTH 13.3 % (11.6-14.8); WHITE BLOOD COUNT 8.7 K/UL (4.8-10.8)
[2017-01-14 07:23] LABS: PROTHROMBIN TIME 10.5 SEC (9.30-11.50)
[2017-01-14 07:34] LABS: ALANINE AMINOTRANSFERASE 10 U/L (3-33); ALBUMIN/GLOBULIN RATIO 0.9 (1.0-2.7); ANION GAP 18 (5-15); ASPARTATE AMINO TRANSFERASE 13 U/L (5-40); CALCIUM 8.4 mg/dL (8.6-10.2); CARBON DIOXIDE 18 mEQ/L (20-30); CHLORIDE 105 mEQ/L (98-107); CREATININE 4.8 mg/dL (0.5-0.9); CRP QUANT 7.9 mg/dL (< 0.5); HEMOLYSIS 2; MAGNESIUM 2.2 mg/dL (1.7-2.5); PHOSPHORUS 6.1 mg/dL (2.5-4.8); POTASSIUM 4.9 mEQ/L (3.4-4.9); SODIUM 141 mEQ/L (135-145); TOTAL PROTEIN 5.7 g/dL (6.6-8.7); URIC ACID 6.1 mg/dL (3.0-7.5)
[2017-01-14 08:15] VITALS: BP 136/62
[2017-01-14] MEDS ORDERED: Levemir Flexpen SUBQ SCH (09:00)
--- NOTE | 2017-01-14 10:56 | Diagnostic Imaging Report ---
Indication: PAIN Technique: 2 views of the left hip Comparison: None Findings: Images are suboptimal, due to difficulty positioning the patient. No definite hip fracture. There is a lucency through the lateral acetabulum, however, which could be artifactual could indicate a nondisplaced fracture. Joint spaces are preserved. Impression: Note definite hip fracture. Note, however, that exam and positioning are suboptimal, and elderly osteopenic patients, nondisplaced fractures can easily be occult Cannot rule out lateral acetabular fracture. CT or MRI may be useful for more sensitive and specific characterization Findings discussed by phone with Dr. Barrera at the time of interpretation
[2017-01-14] MEDS: Nateglinide 60mg tab ORAL SCH ×2 (11:30→17:09)
[2017-01-14 11:41] VITALS: BP 151/78
--- NOTE | 2017-01-14 12:53 | General Progress Note ---
Assessment/Plan Status: unchanged Assessment/Plan Status: - Acute renal failure and hyperKalemia - Renal failure, likely diabetic nephropathy / HTN - h/o Cellulitis in diabetic foot right LE - Decubitus ulcer - Dementia - Diabetes mellitus - Nonpressure ulcer to level of fascia right lateral ankle - S/P ORIF right ankle Plan: HD today Monitor renal parameters if need further HD Rx ARTUR Kidney- unremarkable Adjust BP meds- Avoid Nephrotoxics- 24 h urine CrCl and total protein- noted DC mind altering meds- discussed with CM Per orders Subjective ROS Limited/Unobtainable: No Constitutional: Reports: malaise, weakness Allergies: Coded Allergies: MORPHINE (Verified Adverse Reaction, Severe, PARADOXICAL REACTION, 10/08/12 ) Objective Last 24 Hour Vital Signs Date Time Temp Pulse Resp B/P Pulse Ox O2 Delivery O2 Flow Rate FiO2 01/14/17 11:41 98.3 78 21 151/78 97 Room Air 01/14/17 08:59 100 136/62 01/14/17 08:15 98.2 87 22 136/62 100 Room Air 01/14/17 07:49 7 18 Room Air 01/14/17 06:07 123/68 01/14/17 04:00 96.3 79 20 123/68 96 Room Air 01/14/17 00:00 97.4 68 20 133/66 98 Room Air 01/13/17 23:40 133/65 01/13/17 22:07 82 164/78 01/13/17 20:31 78 17 Room Air 21 01/13/17 19:00 97.3 70 18 138/80 97 Room Air 01/13/17 15:55 71 25 179/75 97 Room Air 01/13/17 15:50 66 12 178/80 98 Room Air 01/13/17 15:45 73 25 171/81 98 Room Air 01/13/17 15:17 59 16 Intake and Output 01/13/17 01/14/17 19:00 07:00 Intake Total 800 ml 360 ml Output Total 250 ml 500 ml Balance 550 ml -140 ml Intake Oral 400 ml 360 ml IV Total 400 ml Output Urine Total 250 ml 500 ml Current Medications Medications (Trade) Dose Ordered Sig/Rina Route PRN Reason Start Time Stop Time Status Last Admin Dose Admin Acetaminophen (Tylenol) 650 mg Q4H PRN ORAL fever 01/12/17 21:45 4/12/17 21:44 Acetaminophen/ Hydrocodone Bitart ([place] 5/325) 1 tab Q4H PRN ORAL Moderate Pain (Pain Scale 4-6) 01/12/17 19:30 01/19/17 19:29 01/12/17 19:53 Albuterol/ Ipratropium (DuoNeb 0.5-3(2.5)mg/3ml) 3 ml Q4H PRN HHN Shortness of Breath 01/12/17 21:45 01/17/17 21:44 Amlodipine Besylate (Norvasc) 5 mg BID ORAL 01/13/17 09:00 02/12/17 08:59 01/14/17 08:59 Atorvastatin Calcium (Lipitor) 20 mg BEDTIME ORAL 01/12/17 21:00 02/11/17 20:59 01/13/17 22:07 Cefepime HCl 2 gm/ Dextrose 110 ml @ 220 mls/hr Q24H IVPB 01/13/17 17:00 01/20/17 16:59 01/13/17 21:15 Clonidine HCl (Catapres) 0.1 mg Q4H PRN ORAL sbp more than 160 01/12/17 21:45 02/11/17 21:44 Clopidogrel Bisulfate (Plavix) 75 mg DAILY ORAL 01/13/17 09:00 02/12/17 08:59 01/14/17 08:59 Daptomycin 500 mg/ Sodium Chloride 55 ml @ 100 mls/hr Q48H IV 01/14/17 18:00 01/21/17 17:59 Dextrose (Dextrose 50%) STAT PRN IV Hypoglycemia 01/13/17 08:00 02/12/17 07:59 Heparin Sodium (Porcine) 5000 units 5,000 units EVERY 12 HOURS SUBQ 01/10/17 21:00 02/09/17 20:59 Future Hold Hydralazine HCl (Apresoline) 25 mg Q8HR ORAL 01/12/17 22:00 02/11/17 21:59 01/14/17 06:07 Insulin Aspart (NovoLOG) BEFORE MEALS AND HS SUBQ 01/12/17 21:00 02/11/17 20:59 01/14/17 06:10 Insulin Detemir (Levemir) 12 units DAILY SUBQ 01/14/17 09:00 02/13/17 08:59 01/14/17 09:17 Levothyroxine Sodium (Synthroid) 25 mcg ACBREAKFAST ORAL 01/13/17 06:30 02/12/17 06:29 01/14/17 06:08 Nateglinide (Starlix) 60 mg TIAC ORAL 01/14/17 11:30 02/13/17 11:29 Nitroglycerin (Ntg) 0.4 mg Q5M X 3 DOSES PRN SL Prn Chest Pain 01/12/17 19:15 02/11/17 19:14 Ondansetron HCl (Zofran) 4 mg Q6H PRN IVP Nausea & Vomiting 01/12/17 21:45 02/11/17 21:44 Pantoprazole (Protonix) 40 mg DAILY ORAL 01/13/17 09:00 02/12/17 08:59 01/14/17 08:58 Polyethylene Glycol (Miralax) 17 gm HSPRN PRN ORAL Constipation 01/13/17 09:45 02/12/17 09:44 Sodium Chloride (Sodium Chloride 1000ml bag) 1,000 ml @ 100 mls/hr Q10H IVLG 01/12/17 19:15 02/11/17 19:14 01/14/17 04:40 Temazepam (Restoril) 15 mg HSPRN PRN ORAL Insomnia 01/13/17 09:45 01/20/17 09:44 01/13/17 23:50 Laboratory Tests 01/14/17 04:55: White Blood Count 8.7, Red Blood Count 3.03L, Hemoglobin 8.8L, Hematocrit 26.3L , Mean Corpuscular Volume 87, Mean Corpuscular Hemoglobin 28.9, Mean Corpuscular Hemoglobin Concent 33.3, Red Cell Distribution Width 13.3, Platelet Count 113L, Mean Platelet Volume 7.5, Neutrophils (%) (Auto) 81.5H, Lymphocytes (%) (Auto) 10.8L, Monocytes (%) (Auto) 6.2, Eosinophils (%) (Auto) 1.0, Basophils (%) (Auto) 0.5, Prothrombin Time 10.5, Prothromb Time International Ratio 1.0, Activated Partial Thromboplast Time 29, Sodium Level 141, Potassium Level 4.9, Chloride Level 105, Carbon Dioxide Level 18L, Anion Gap 18H, Blood Urea Nitrogen 45H, Creatinine 4.8H, Estimat Glomerular Filtration Rate , Glucose Level 146H, Uric Acid 6.1, Calcium Level 8.4L, Phosphorus Level 6.1H, Magnesium Level 2.2, Total Bilirubin 0.2, Aspartate Amino Transf (AST/SGOT) 13, Alanine Aminotransferase (ALT/SGPT) 10, Alkaline Phosphatase 67, C-Reactive Protein, Quantitative 7.9H, Pro-B-Type Natriuretic Peptide 4049H, Total Protein 5.7L, Albumin 2.8L, Globulin 2.9, Albumin/Globulin Ratio 0.9L Height (Feet): 5 Height (Inches): 7.00 Weight (Pounds): 180 General Appearance: no apparent distress, lethargic Cardiovascular: normal rate Respiratory/Chest: decreased breath sounds Abdomen: soft, distended Objective other physical exam not changed BERTRAM CASTAÑEDA Jan 14, 2017 12:53
[2017-01-14 16:00] VITALS: BP 138/78
[2017-01-14] MEDS ORDERED: DAPTOmycin 500 MG in NS 55 ML IV SCH (18:00)
[2017-01-14] MEDS: Norco 5mg/325mg tab ORAL PRN (18:46)
[2017-01-14 20:00] VITALS: BP 126/76
[2017-01-14] MEDS ORDERED: LORazepam 1mg tab ORAL PRN (20:15)
[2017-01-14] MEDS: Atorvastatin 20mg tab ORAL SCH (20:16)
--- NOTE | 2017-01-14 20:24 | Infectious Diseases Prog Note ---
Assessment/Plan Assessment/Plan ASSESSMENT: 76 y/o female with: // +ve Blood cx : CoNS ? contaminant , vs PICC // Right medial ankle cellulitis / osteomyelitis / hardware infection - SP hardware removal 12/15 - - 3P bone scan: 3 phase increased activity in region of distal aspect of right fibula compatible with hardware loosening and/or osteomyelitis - XR: surgical hardware seen reducing old healed distal fibular and medial malleolar fractures. No acute fractures. No dislocations. Bones are demineralized. - elevated ESR, CRP - h/o right ankle ORIF // MARVIN ( IV Vanco ? related ) SP right transjugular temporary dialysis catheter 01/13 // Dementia // DM // h/o CAD // No ABX allergies // Full Code PLAN: - Cont AB Rx until 01/26/14 ( 6 weeks IV ABX from date of HWR ) , on cefepime and Dapto - weekly CBC, CMP, ESR, CRP while on IV ABX - monitor CBC, temperatures - monitor BMP - wound care - PICC tip Cx Hep B/C Ab : P - HD as per Nephro Subjective Constitutional: Denies: anorexia, chills, drenching sweats, fatigue, fever, no symptoms, other Allergies: Coded Allergies: MORPHINE (Verified Adverse Reaction, Severe, PARADOXICAL REACTION, 10/08/12 ) Objective Vital Signs Last 24 Hour Vital Signs Date Time Temp Pulse Resp B/P Pulse Ox O2 Delivery O2 Flow Rate FiO2 01/14/17 19:15 79 18 Room Air 01/14/17 17:14 97 138/78 01/14/17 16:15 Room Air 01/14/17 16:00 97.6 97 16 138/78 98 Room Air 01/14/17 14:00 159/70 01/14/17 13:05 Room Air 01/14/17 11:41 98.3 78 21 151/78 97 Room Air 01/14/17 08:59 100 136/62 01/14/17 08:15 98.2 87 22 136/62 100 Room Air 01/14/17 07:49 7 18 Room Air 21 01/14/17 06:07 123/68 01/14/17 04:00 96.3 79 20 123/68 96 Room Air 01/14/17 00:00 97.4 68 20 133/66 98 Room Air 01/13/17 23:40 133/65 01/13/17 22:07 82 164/78 01/13/17 20:31 78 17 Room Air 21 Height (Feet): 5 Height (Inches): 7.00 Weight (Pounds): 180 HEENT: mucous membranes moist Respiratory/Chest: no accessory muscle use Cardiovascular: regular rhythm Abdomen: no scars Laboratory Tests Test 01/14/17 04:55 White Blood Count 8.7 K/UL (4.8-10.8) Red Blood Count 3.03 M/UL (4.20-5.40) L Hemoglobin 8.8 G/DL (12.0-16.0) L Hematocrit 26.3 % (37.0-47.0) L Mean Corpuscular Volume 87 FL (80-99) Mean Corpuscular Hemoglobin 28.9 PG (27.0-31.0) Mean Corpuscular Hemoglobin Concent 33.3 G/DL (32.0-36.0) Red Cell Distribution Width 13.3 % (11.6-14.8) Platelet Count 113 K/UL (150-450) L Mean Platelet Volume 7.5 FL (6.5-10.1) Neutrophils (%) (Auto) 81.5 % (45.0-75.0) H Lymphocytes (%) (Auto) 10.8 % (20.0-45.0) L Monocytes (%) (Auto) 6.2 % (1.0-10.0) Eosinophils (%) (Auto) 1.0 % (0.0-3.0) Basophils (%) (Auto) 0.5 % (0.0-2.0) Prothrombin Time 10.5 SEC (9.30-11.50) Prothromb Time International Ratio 1.0 (0.9-1.1) Activated Partial Thromboplast Time 29 SEC (23-33) Sodium Level 141 mEQ/L (135-145) Potassium Level 4.9 mEQ/L (3.4-4.9) Chloride Level 105 mEQ/L (98-107) Carbon Dioxide Level 18 mEQ/L (20-30) L Anion Gap 18 (5-15) H Blood Urea Nitrogen 45 mg/dL (7-23) H Creatinine 4.8 mg/dL (0.5-0.9) H Estimat Glomerular Filtration Rate mL/min (>60) Glucose Level 146 mg/dL (74-106) H Uric Acid 6.1 mg/dL (3.0-7.5) Calcium Level 8.4 mg/dL (8.6-10.2) L Phosphorus Level 6.1 mg/dL (2.5-4.8) H Magnesium Level 2.2 mg/dL (1.7-2.5) Total Bilirubin 0.2 mg/dL (0.0-1.2) Aspartate Amino Transf (AST/SGOT) 13 U/L (5-40) Alanine Aminotransferase (ALT/SGPT) 10 U/L (3-33) Alkaline Phosphatase 67 U/L (35-104) C-Reactive Protein, Quantitative 7.9 mg/dL (< 0.5) H Pro-B-Type Natriuretic Peptide 4049 pg/mL (0-450) H Total Protein 5.7 g/dL (6.6-8.7) L Albumin 2.8 g/dL (3.5-5.2) L Globulin 2.9 g/dL Albumin/Globulin Ratio 0.9 (1.0-2.7) L Hepatitis B Surface Antigen Pending Hepatitis B Surface Antibody, Quant Pending Hepatitis C Antibody Pending Current Medications Medications (Trade) Dose Ordered Sig/Rina Route PRN Reason Start Time Stop Time Status Last Admin Dose Admin Acetaminophen (Tylenol) 650 mg Q4H PRN ORAL fever 01/12/17 21:45 02/11/17 21:44 Acetaminophen/ Hydrocodone Bitart (Beacon 5/325) 1 tab Q4H PRN ORAL Moderate Pain (Pain Scale 4-6) 01/12/17 19:30 01/19/17 19:29 01/14/17 18:46 Albuterol/ Ipratropium (DuoNeb 0.5-3(2.5)mg/3ml) 3 ml Q4H PRN HHN Shortness of Breath 01/12/17 21:45 01/17/17 21:44 Amlodipine Besylate (Norvasc) 5 mg BID ORAL 01/13/17 09:00 02/12/17 08:59 01/14/17 17:14 Atorvastatin Calcium (Lipitor) 20 mg BEDTIME ORAL 01/12/17 21:00 02/11/17 20:59 01/13/17 22:07 Cefepime HCl 2 gm/ Dextrose 110 ml @ 220 mls/hr Q24H IVPB 01/13/17 17:00 01/20/17 16:59 01/13/17 21:15 Clonidine HCl (Catapres) 0.1 mg Q4H PRN ORAL sbp more than 160 01/12/17 21:45 02/11/17 21:44 Clopidogrel Bisulfate (Plavix) 75 mg DAILY ORAL 01/13/17 09:00 02/12/17 08:59 01/14/17 08:59 Daptomycin/Sodium Chloride (Cubicin/Sodium Chloride) 55 ml @ 100 mls/hr Q48H IV 01/14/17 18:00 01/21/17 17:59 01/14/17 18:41 Dextrose (Dextrose 50%) STAT PRN IV Hypoglycemia 01/13/17 08:00 02/12/17 07:59 Heparin Sodium (Porcine) 5000 units 5,000 units EVERY 12 HOURS SUBQ 01/10/17 21:00 02/09/17 20:59 Future hold Hydralazine HCl (Apresoline) 25 mg Q8HR ORAL 01/12/17 22:00 02/11/17 21:59 01/14/17 06:07 Insulin Aspart (NovoLOG) BEFORE MEALS AND HS SUBQ 01/12/17 21:00 02/11/17 20:59 01/14/17 17:25 Insulin Detemir (Levemir) 12 units DAILY SUBQ 01/14/17 09:00 02/13/17 08:59 01/14/17 09:17 Levothyroxine Sodium (Synthroid) 25 mcg ACBREAKFAST ORAL 01/13/17 06:30 02/12/17 06:29 01/14/17 06:08 Lorazepam (Ativan) 1 mg Q6H PRN ORAL For Anxiety 01/14/17 20:15 01/21/17 20:14 Nateglinide 60 mg 60 mg TIAC ORAL 01/14/17 11:30 02/13/17 11:29 01/14/17 17:09 Nitroglycerin (Ntg) 0.4 mg Q5M X 3 DOSES PRN SL Prn Chest Pain 01/12/17 19:15 02/11/17 19:14 Ondansetron HCl (Zofran) 4 mg Q6H PRN IVP Nausea & Vomiting 01/12/17 21:45 02/11/17 21:44 Pantoprazole (Protonix) 40 mg DAILY ORAL 01/13/17 09:00 02/12/17 08:59 01/14/17 08:58 Polyethylene Glycol (Miralax) 17 gm HSPRN PRN ORAL Constipation 01/13/17 09:45 02/12/17 09:44 Sodium Chloride (Sodium Chloride 1000ml bag) 1,000 ml @ 75 mls/hr [id number] IVLG 01/14/17 13:00 02/13/17 12:59 01/14/17 17:09 Temazepam (Restoril) 15 mg HSPRN PRN ORAL Insomnia 01/13/17 09:45 01/20/17 09:44 01/13/17 23:50 GISELLA JEROME M.D. Jan 14, 2017 20:24
--- NOTE | 2017-01-14 22:14 | Pulmonology Progress Note ---
Assessment/Plan Problems: (1) Acute kidney injury (2) Hyperkalemia (3) Osteomyelitis of ankle or foot, right, acute (4) Dementia (5) Diabetes mellitus Assessment/Plan renal w/u in progress continue antibiotics iv fluids check electrolytes. d/w daughter, she wants her to [facility] without any antibiotics med/surg bun/creatinine stable dc to [facility] today Subjective ROS Limited/Unobtainable: No Interval Events: comfortable Allergies: Coded Allergies: MORPHINE (Verified Adverse Reaction, Severe, PARADOXICAL REACTION, 10/08/12 ) Objective Last 24 Hour Vital Signs Date Time Temp Pulse Resp B/P Pulse Ox O2 Delivery O2 Flow Rate FiO2 01/14/17 20:00 97.0 80 18 126/76 94 Room Air 01/14/17 19:15 79 18 Room Air 21 01/14/17 17:14 97 138/78 01/14/17 16:15 Room Air 01/14/17 16:00 97.6 97 16 138/78 98 Room Air 01/14/17 14:00 159/70 01/14/17 13:05 Room Air 01/14/17 11:41 98.3 78 21 151/78 97 Room Air 01/14/17 08:59 100 136/62 01/14/17 08:15 98.2 87 22 136/62 100 Room Air 01/14/17 07:49 7 18 Room Air 21 01/14/17 06:07 123/68 01/14/17 04:00 96.3 79 20 123/68 96 Room Air 01/14/17 00:00 97.4 68 20 133/66 98 Room Air 01/13/17 23:40 133/65 Intake and Output 01/13/17 01/14/17 19:00 07:00 Intake Total 800 ml 360 ml Output Total 250 ml 500 ml Balance 550 ml -140 ml Intake Oral 400 ml 360 ml IV Total 400 ml Output Urine Total 250 ml 500 ml Objective General Appearance: WD/WN HEENT: normocephalic, atraumatic Respiratory/Chest: chest wall non-tender, lungs clear Cardiovascular: normal peripheral pulses, normal rate Abdomen: normal bowel sounds, soft, non tender, other - peg in place Extremities: no cyanosis, no clubbing Skin: no rash, clean dressing on toe Laboratory Tests 01/14/17 04:55: White Blood Count 8.7, Red Blood Count 3.03L, Hemoglobin 8.8L, Hematocrit 26.3L , Mean Corpuscular Volume 87, Mean Corpuscular Hemoglobin 28.9, Mean Corpuscular Hemoglobin Concent 33.3, Red Cell Distribution Width 13.3, Platelet Count 113L, Mean Platelet Volume 7.5, Neutrophils (%) (Auto) 81.5H, Lymphocytes (%) (Auto) 10.8L, Monocytes (%) (Auto) 6.2, Eosinophils (%) (Auto) 1.0, Basophils (%) (Auto) 0.5, Prothrombin Time 10.5, Prothromb Time International Ratio 1.0, Activated Partial Thromboplast Time 29, Sodium Level 141, Potassium Level 4.9, Chloride Level 105, Carbon Dioxide Level 18L, Anion Gap 18H, Blood Urea Nitrogen 45H, Creatinine 4.8H, Estimat Glomerular Filtration Rate , Glucose Level 146H, Uric Acid 6.1, Calcium Level 8.4L, Phosphorus Level 6.1H, Magnesium Level 2.2, Total Bilirubin 0.2, Aspartate Amino Transf (AST/SGOT) 13, Alanine Aminotransferase (ALT/SGPT) 10, Alkaline Phosphatase 67, C-Reactive Protein, Quantitative 7.9H, Pro-B-Type Natriuretic Peptide 4049H, Total Protein 5.7L, Albumin 2.8L, Globulin 2.9, Albumin/Globulin Ratio 0.9L, Hepatitis B Surface Antigen [Pending], Hepatitis B Surface Antibody, Quant [Pending], Hepatitis C Antibody [Pending] SHYAM NAVA Jan 14, 2017 22:14
--- NOTE | 2017-01-16 02:48 | Discharge Summary 2 SIG ---
DATE OF ADMISSION: 01/10/2017 DATE OF DISCHARGE: 01/14/2017 CONSULTANTS: 1. Joshua Fernandez M.D. 2. Duarte Mcgregor M.D. 3. Christian Lim M.D. BRIEF HOSPITAL COURSE: The patient is a 76-year-old female, who presented to ED with abnormal laboratories. She was recently treated for infection to the right foot with osteomyelitis and noted to have increased BUN and creatinine. The patient was sent for further evaluation and treatment. Dr. Fernandez was consulted. The patient has acute renal failure and hyperkalemia. Renal failure, likely contributed by diabetic and hypertensive nephropathy. Renal ultrasound was essentially remarkable and negative for hydronephrosis. A 24 hour urine studies showed total protein 1 gram. She continued to have azotemia. On 01/13/2017, she had placement of a temporary dialysis catheter and following day. She underwent inpatient hemodialysis. She was also followed by Dr. Mcgregor, as the patient had recently been diagnosed with osteomyelitis of the right ankle, status post removal of hardware, and was discharged to complete total six weeks antibiotic. She has about two more weeks of IV antibiotics to continue and was placed IV cefepime. Vancomycin was changed to daptomycin. Bone scan showed three phase increased activity in the region of the right fibula compatible with osteomyelitis and will need to continue antibiotic treatment until 01/26/2017. Her blood sugars were monitored and was given NovoLog insulin coverage. Levemir was increased to 12 units daily and Starlix was added 60 mg before meals three times a day. [facility] Renal function to be monitored every weekly. FINAL DIAGNOSES: 1. Acute renal failure, requiring hemodialysis. 2. Diabetic and hypertensive nephropathy. 3. Diabetes mellitus. 4. Osteomyelitis of the right foot, acute. 5. Hyperkalemia. 6. Dementia. 7. Non pressure ulcer to the level of the fascia right lateral ankle. 8. Status post open reduction internal fixation right ankle. Zahra Barrera M.D. I have been assigned to dictate discharge summary on this account and I was not involved in the patient's management. Angelika Pearce N.P. DR: HERBERTH JOB#: [id number] CC: DOUGLAS
[2017-01-19 10:47] LABS: HEPATITIS C VIRUS AB/CEDARS 0.12 S/CO (<0.80)
[2017-01-26 10:05] LABS: HEPATITIS BE ANTIGEN/CEDARS NONREACTIVE (NONREACTIVE)
--- NOTE | 2017-02-02 08:41 | Diagnostic Imaging Report ---
Indications: Dysphagia Technique: Multiphasic barium dysphagia study was performed under fluoroscopic control with Diana Garrison speech pathologist. Cinegraphic images were obtained. Total fluoroscopy time: 15.3 sec Dose-area product: 0.14 mGy-m2 Findings: Comparison: None Oral and pharyngeal phases of swallowing demonstrate multiple mechanical abnormalities, as enumerated on speech pathology evaluation form. The patient demonstrates single episode of deep laryngeal penetration, possible trace aspiration of thin liquid barium; superficial laryngeal penetration of thin, nectar, and honey thickness barium without aspiration. Moderate barium coating of pharyngeal structures post swallow. Esophageal phase of swallowing demonstrates no obvious barium pooling. IMPRESSION: Abnormal oropharyngeal mechanics with laryngeal penetration of multiple consistencies of barium with possible trace aspiration of thin liquid barium. Moderate post swallow pharyngeal residue No obvious esophageal dysmotility. Recommendation per speech pathology evaluation form.
== END 2017-01-14 21:23 | DRG 683 ==
LOC: EDBD 21:49 → EMR 22:25 → 2E 01-10 00:47 → EDBEDREQ 01-10 01:32 → EDBEDREQSVC 01-10 02:02 → EDBEDREQ 01-10 03:03 → 4E 01-12 19:01
DX: N17.9 Acute kidney failure, unspecified (principal); M86.171 Other acute osteomyelitis, right ankle and foot; E11.21 Type 2 diabetes mellitus with diabetic nephropathy; E11.8 Type 2 diabetes mellitus with unspecified complications; F03.90 Unspecified dementia, unspecified severity, without behavioral disturbance, psychotic disturbance, mood disturbance, and anxiety; L97.319 Non-pressure chronic ulcer of right ankle with unspecified severity; E87.5 Hyperkalemia; I12.9 Hypertensive chronic kidney disease with stage 1 through stage 4 chronic kidney disease, or unspecified chronic kidney disease; E11.22 Type 2 diabetes mellitus with diabetic chronic kidney disease; N18.9 Chronic kidney disease, unspecified; L30.4 Erythema intertrigo; E03.9 Hypothyroidism, unspecified; I25.10 Atherosclerotic heart disease of native coronary artery without angina pectoris
CPT/HCPCS: 36415; 36569; 71010; 73502; 74230; 76775; 76937; 80053; 80061; 81003; 81050; 82550; 82553; 82575; 82607; 82728; 82746; 82962; 82977; 83036; 83540; 83550; 83605; 83735; 83880; 84100; 84156; 84443; 84484; 84550; 85007; 85025; 85610; 85651; 85730; 86140; 86706; 86707; 86803; 87040; 87070; 87081; 87181; 93005; 94664; J1815; S5561

== ENCOUNTER 2017-01-18 21:06 | Inpatient (IN) | payer MEDICARE, OTHER ==
[~2017-01-18] VITALS: Ht 154.9 cm; Wt 90.7 kg
[~2017-01-18 21:06] MED LIST changes: +Cefepime 1gm vial ONE; +D5W 55 ML IV ONE; +NAMENDA10 MG ORAL; +NEXIUM40 MG ORAL; +NORVASC2.5 MG ORAL; +TYLENOL EXTRA500 MG ORAL; +Tubing IV Cassette IV ONE
[2017-01-18] MEDS ORDERED: Albuterol ud Inhalation HHN ONE (22:00)
[2017-01-18] MEDS ORDERED: Cefepime HCl 1 GM in D5W 55 ML IVPB SCH (22:45)
[2017-01-18] MEDS ORDERED: Vancomycin 1.5gm/D5W 300ml 325 ML IVPB ONE (22:45)
[2017-01-18 22:52] LABS: MEAN CORPUSCULAR HEMOGLOBIN 28.3 PG (27.0-31.0); MEAN CORPUSCULAR HGB CONC 32.2 G/DL (32.0-36.0); MEAN CORPUSCULAR VOLUME 88 FL (80-99); MEAN PLATELET VOLUME 6.6 FL (6.5-10.1); PLATELET COUNT 186 K/UL (150-450); RED BLOOD COUNT 3.18 M/UL (4.20-5.40); WHITE BLOOD COUNT 18.5 K/UL (4.8-10.8)
[2017-01-18 23:00] VITALS: BP 123/82
[2017-01-18 23:04] LABS: INR 1.1 (0.9-1.1); PROTHROMBIN TIME 10.6 SEC (9.30-11.50)
[2017-01-18 23:05] LABS: ALANINE AMINOTRANSFERASE 19 U/L (3-33); ALBUMIN/GLOBULIN RATIO 0.8 (1.0-2.7); ASPARTATE AMINO TRANSFERASE 27 U/L (5-40); CALCIUM 8.5 mg/dL (8.6-10.2); CARBON DIOXIDE 15 mEQ/L (20-30); CREATININE 8.2 mg/dL (0.5-0.9); HEMOLYSIS 82; TOTAL PROTEIN 6.6 g/dL (6.6-8.7); TROPONIN I < 0.30 ng/mL (<=0.30)
[2017-01-18 23:10] LABS: REFLEX LACTIC ACID YES OR NO YES
[2017-01-18 23:16] LABS: CKMB 2.7 ng/mL (< 3.8)
[2017-01-18 23:31] LABS: ANION GAP 27 (5-15); CHLORIDE 96 mEQ/L (98-107); POTASSIUM 5.9 mEQ/L (3.4-4.9); SODIUM 138 mEQ/L (135-145)
[2017-01-19] VITALS (8 sets, daily range): BP systolic 102–161; BP diastolic 44–90
--- NOTE | 2017-01-19 00:40 | Emergency Room Report ---
History of Present Illness General Chief Complaint: Dyspnea/Respdistress Source: Family Member, Medical Record, EMS Present Illness HPI This is a 76-year-old female with history of diabetes and recent admission here at for renal failure and hyperkalemia. She had dialysis with last admission. She was just discharged back to shelter. She was sent back for rest or distress and hypoxia. No fever. Patient is a poor historian. She just yells. There is no nausea no vomiting. No diarrhea. No other complaint. Again poor historian. Allergies: Coded Allergies: MORPHINE (Verified Adverse Reaction, Severe, PARADOXICAL REACTION, 10/08/12 ) Patient History Past Medical History: see triage record, old chart reviewed, HTN, renal disease Past Surgical History: other Pertinent Family History: none Social History: Denies: smoking Now: No Immunizations: other Reviewed Nursing Documentation: PMH: Agreed, PSxH: Agreed Nursing Documentation-PMH Past Medical History: No History, Except For Hx Cardiac Problems: Yes - Hypothyroidism, angina, hyperk+, CAD Hx Hypertension: Yes Hx Pacemaker: No Hx Asthma: No Hx COPD: No Hx Diabetes: Yes Hx Cancer: No Hx Gastrointestinal Problems: Yes Hx Dialysis: No Hx Neurological Problems: Yes - Dementia Hx Cerebrovascular Accident: No Hx Dementia: Yes Hx Alzheimer's Disease: Yes Hx Seizures: No Hx Memory Loss: Yes Hx Concentration Difficulty: Yes Hx Tremors: Yes Hx Dizziness: Yes Hx Headaches: Yes Hx Weakness: Yes - muscle weakness Review of Systems Eye: Denies: blurred vision, eye pain ENT: Denies: ear pain, nose congestion, throat swelling Respiratory: Reports: shortness of breath, Denies: cough Cardiovascular: Denies: chest pain, palpitations Gastrointestinal: Denies: abdominal pain, diarrhea, nausea, vomiting Musculoskeletal: Denies: back pain, joint pain Skin: Denies: rash Neurological: Denies: headache, numbness Endocrine: Denies: increased thirst, increased urine Hematologic/Lymphatic: Denies: easy bruising All Other Systems: negative except mentioned in HPI Physical Exam Vital Signs Date Time Temp Pulse Resp B/P Pulse Ox O2 Delivery O2 Flow Rate FiO2 01/18/17 21:19 76 20 134/54 98 Non-Rebreather 15.0 01/18/17 22:21 100 vitals with hypoxia Sp02 EP Interpretation: abnormal General Appearance: alert, mild distress, Chronically Ill Head: normocephalic, atraumatic Eyes: bilateral eye EOMI, bilateral eye PERRL ENT: hearing grossly normal, normal pharynx Neck: full range of motion, supple, no meningismus Respiratory: chest non-tender, rales, rhonchi Cardiovascular #1: regular rate, rhythm, no murmur Gastrointestinal: normal bowel sounds, non tender, no mass, no organomegaly, no bruit, non-distended Musculoskeletal: back normal, normal range of motion Neurologic: alert Psychiatric: mood/affect normal Skin: warm/dry Procedures Critical Care Time Critical Care Time Critical care is mandated in this patient who presented with sepsis secondary to pneumonia. Patient require my urgent intervention to attenuate the risks of metabolic collapse which may lead to cardiovascular collapse and . Critical care time is 35 minutes excluding any reportable procedure. Critical care time included evaluation, multiple reevaluation, looking at old charts, interpreting laboratory and diagnostic data, discussing case with patient and family and consultants, and charting. Medical Decision Making Diagnostic Impression: Primary Impression: Sepsis Qualified Codes: A41.9 - Sepsis, unspecified organism Additional Impressions: Pneumonia Qualified Codes: J18.9 - Pneumonia, unspecified organism Respiratory failure with hypoxia Qualified Codes: J96.21 - Acute and chronic respiratory failure with hypoxia Anemia of chronic kidney failure Qualified Codes: N18.5 - Chronic kidney disease, stage 5; D63.1 - Anemia in chronic kidney disease Acute on chronic renal failure Hyperkalemia ER Course Patient presents with several issues. Main issue is sepsis secondary to pneumonia. Right spectrum antibiotics given. I also gave him vancomycin to cover for dialysis catheter line. This is to cover for MRSA. She did not receive a 30 mL per kilo of IV fluid because she is on dialysis and does not urinate very well. I did not want to put her into respiratory failure. Blood pressure stable. She received IV antibiotics. Breathing treatment help with her hypoxia. Will admit for IV antibiotics and dialysis. Laboratory Tests Test 01/18/17 22:20 White Blood Count 18.5 K/UL (4.8-10.8) H Red Blood Count 3.18 M/UL (4.20-5.40) L Hemoglobin 9.0 G/DL (12.0-16.0) L Hematocrit 28.0 % (37.0-47.0) L Mean Corpuscular Volume 88 FL (80-99) Mean Corpuscular Hemoglobin 28.3 PG (27.0-31.0) Mean Corpuscular Hemoglobin Concent 32.2 G/DL (32.0-36.0) Red Cell Distribution Width 14.0 % (11.6-14.8) Platelet Count 186 K/UL (150-450) Mean Platelet Volume 6.6 FL (6.5-10.1) Neutrophils (%) (Auto) % (45.0-75.0) Lymphocytes (%) (Auto) % (20.0-45.0) Monocytes (%) (Auto) % (1.0-10.0) Eosinophils (%) (Auto) % (0.0-3.0) Basophils (%) (Auto) % (0.0-2.0) Neutrophils % (Manual) Pending Lymphocytes % (Manual) Pending Platelet Estimate Pending Platelet Morphology Pending Prothrombin Time 10.6 SEC (9.30-11.50) Prothromb Time International Ratio 1.1 (0.9-1.1) Activated Partial Thromboplast Time 27 SEC (23-33) Sodium Level 138 mEQ/L (135-145) Potassium Level 5.9 mEQ/L (3.4-4.9) H Chloride Level 96 mEQ/L (98-107) L Carbon Dioxide Level 15 mEQ/L (20-30) L Anion Gap 27 (5-15) H Blood Urea Nitrogen 72 mg/dL (7-23) H Creatinine 8.2 mg/dL (0.5-0.9) H Estimat Glomerular Filtration Rate mL/min (>60) Glucose Level 162 mg/dL (74-106) H Lactic Acid Level 2.10 mmol/L (0.66-2.22) Calcium Level 8.5 mg/dL (8.6-10.2) L Total Bilirubin 0.2 mg/dL (0.0-1.2) Aspartate Amino Transf (AST/SGOT) 27 U/L (5-40) Alanine Aminotransferase (ALT/SGPT) 19 U/L (3-33) Alkaline Phosphatase 95 U/L (35-104) Total Creatine Kinase 111 U/L (26-140) Creatine Kinase MB 2.7 ng/mL (< 3.8) Creatine Kinase MB Relative Index 2.4 Troponin I < 0.30 ng/mL (<=0.30) Pro-B-Type Natriuretic Peptide 35120 pg/mL (0-450) H Total Protein 6.6 g/dL (6.6-8.7) Albumin 3.1 g/dL (3.5-5.2) L Globulin 3.5 g/dL Albumin/Globulin Ratio 0.8 (1.0-2.7) L Lab Results Impression labs with elevated wbc and creat. EKG Diagnostic Results Rate: normal Rhythm: NSR ST Segments: no acute changes Rhythm Strip Diag. Results EP Interpretation: yes Rate: 90 Rhythm: NSR, no PVC's, no ectopy Chest X-Ray Diagnostic Results EP Interpretation: Yes Findings: no effusion, no pneumothorax, other - multi-lobar infiltrates, mostly left lungs. Number of Views: 1 Last Vital Signs Date Time Temp Pulse Resp B/P Pulse Ox O2 Delivery O2 Flow Rate FiO2 01/18/17 23:00 75 21 123/82 100 Non-Rebreather 15.0 01/18/17 22:22 100 Status: improved Disposition: ADMITTED INPATIENT Condition: Serious Referrals: SHYAM NAVA (PCP) YAYA RODRIGUEZ M.D. Jan 19, 2017 00:40
[2017-01-19 01:35] LABS: BAND NEUTROPHILS % (MANUAL) 2 % (0-8); BASOPHILS % (MANUAL) 0 % (0-2); EOSINOPHILS % (MANUAL) 0 % (0-3); LYMPHOCYTES % (MANUAL) 13 % (20-45); NEUTROPHILS % (MANUAL) 84 % (45-75); PLATELET ESTIMATE ADEQUATE; PLATELET MORPHOLOGY NORMAL; TOTAL CELLS COUNTED 100
[2017-01-19] MEDS ORDERED: Nitroglycerin Subl 0.4mg tab (Bottle Of 25) SL PRN (02:30)
[2017-01-19] MEDS ORDERED: DuoNeb 0.5-3(2.5)mg/3ml neb HHN PRN (02:30)
[2017-01-19] MEDS ORDERED: Miralax 17gm pkt ORAL PRN (02:30)
[2017-01-19 03:09] LABS: APPEARANCE,URINE SLIGHTLY CLOUDY; KETONES,URINE NEGATIVE (NEGATIVE); LEUKOCYTE ESTERASE ,URINE 2+ (NEGATIVE); NITRITE,URINE NEGATIVE (NEGATIVE); PH,URINE 5 (4.5-8.0); PROTEIN,URINE 4+ (NEGATIVE); UROBILINOGEN,URINE NORMAL MG/DL (0.0-1.0)
[2017-01-19 03:18] LABS: AMORPHOUS SEDIMENT,UR MANY /LPF; BACTERIA,URINE MANY /HPF; RBC,URINE TNTC /HPF (0 - 2); SQUAMOUS EPITHELIAL CELL,UR FEW /LPF (NONE/OCC); WBC,URINE 30-40 /HPF (0 - 2); YEAST,URINE MODERATE /HPF
[2017-01-19] MEDS ORDERED: LORazepam Inj 2mg/ml 1ml IV ONE ×2 (04:00→05:30)
[2017-01-19 07:28] LABS: ALANINE AMINOTRANSFERASE 16 U/L (3-33); ALBUMIN/GLOBULIN RATIO 0.9 (1.0-2.7); ANION GAP 25 (5-15); ASPARTATE AMINO TRANSFERASE 16 U/L (5-40); CALCIUM 8.3 mg/dL (8.6-10.2); CARBON DIOXIDE 17 mEQ/L (20-30); CHLORIDE 97 mEQ/L (98-107); CREATININE 8.7 mg/dL (0.5-0.9); HEMOLYSIS 5; MAGNESIUM 2.2 mg/dL (1.7-2.5); PHOSPHORUS 10.9 mg/dL (2.5-4.8); POTASSIUM 5.7 mEQ/L (3.4-4.9); SODIUM 139 mEQ/L (135-145); TOTAL PROTEIN 5.9 g/dL (6.6-8.7); URIC ACID 5.6 mg/dL (3.0-7.5)
[2017-01-19] MEDS ORDERED: Sodium Bicarbonate 8.4% 50ml Inj IV ONE (08:30)
[2017-01-19] MEDS: NovoLOG Insulin Flexpen SUBQ SCH ×4 (08:30→20:57)
[2017-01-19] MEDS ORDERED: Sodium Bicarbonate 8.4% 50ml Inj ONE (08:31)
[2017-01-19] MEDS ORDERED: Cefepime HCl 2 GM in D5W 110 ML IV SCH (09:00)
[2017-01-19] MEDS ORDERED: Cefepime 1gm/D5W 55ml IVPB ONE ×2 (09:00)
[2017-01-19] MEDS ORDERED: Heparin 5000 units/ml inj ONE (09:14)
[2017-01-19] MEDS: Heparin 5000 units/ml inj SUBQ SCH ×2 (09:20→20:58)
--- NOTE | 2017-01-19 09:26 | Consultation ---
Consult Note Consult Note ID CONSULT: Sheila# [id number] Assessment/Plan ASSESSMENT: 76 y/o female with: // Probable UTI - UCx pending // Hypoxia, possible HCAP - CXR 01/18: pending // h/o CoNS bacteremia 11/05 ( 01/09 ) ?real ( PICC tip+ ) vs contaminant r/o recurrence/persistence - surveillance BCx pending // h/o right ankle cellulitis / osteomyelitis / hardware infection - recommended to complete 6 weeks IV daptomycin, cefepime ( end 01/26/17 ), but daughter apparently declined at discharge per documentation - SP hardware removal 12/15 - no culture sent - 3P bone scan: 3 phase increased activity in region of distal aspect of right fibula compatible with hardware loosening and/or osteomyelitis - XR: surgical hardware seen reducing old healed distal fibular and medial malleolar fractures. No acute fractures. No dislocations. Bones are demineralized. - elevated ESR, CRP - h/o right ankle ORIF // Probable sepsis // Leukocytosis, left shift // Hypothermia // ARF on CKD ?vanco SP HD ?ongoing // Dementia // DM2 - HbA1c 6.1% // h/o CAD - trop(-) x1 // NH resident // VRE colonized // No ABX allergies // Full Code PLAN: - continue empiric IV vancomycin, cefepime d# 1 - f/u cultures - f/u imaging - monitor CBC, temperatures - monitor BMP - respiratory support prn Thanks! Will follow WENDY CHAPMAN Jan 19, 2017 09:26
[2017-01-19 09:30] LABS: ABG ALLEN TEST POSITIVE; ABG BASE EXCESS -4.4; ABG PCO2 37.3 mmHg (35.0-45.0)
[2017-01-19 10:07] LABS: APPEARANCE,URINE SLIGHTLY CLOUDY; KETONES,URINE NEGATIVE (NEGATIVE); LEUKOCYTE ESTERASE ,URINE 3+ (NEGATIVE); NITRITE,URINE NEGATIVE (NEGATIVE); PH,URINE 5 (4.5-8.0); PROTEIN,URINE 4+ (NEGATIVE); UROBILINOGEN,URINE NORMAL MG/DL (0.0-1.0)
[2017-01-19 10:22] LABS: BACTERIA,URINE FEW /HPF; SQUAMOUS EPITHELIAL CELL,UR FEW /LPF (NONE/OCC); YEAST,URINE FEW /HPF
--- NOTE | 2017-01-19 11:22 | Diagnostic Imaging Report ---
Indication: SOB Technique: One view of the chest Comparison: 01/09/2017 Findings: Interim development of fairly extensive diffuse bilateral interstitial and alveolar infiltrates versus edema, with an upper lobe predominance bilaterally. There is lateral pleural thickening versus fluid on the left. There is a right jugular temporary dialysis catheter. The heart is borderline enlarged. Previously demonstrated PICC is no longer evident. There is posttraumatic deformity of the right shoulder. Impression: Bilateral diffuse infiltrates versus edema. Left lateral pleural thickening versus fluid Other findings as described
[2017-01-19] MEDS ORDERED: Vancomycin 500mg/D5W 110ml IVPB ONE ×2 (12:00)
--- NOTE | 2017-01-19 12:32 | History and Physical ---
History of Present Illness General Date patient seen: Jan 19, 2017 Reason for Hospitalization: Dyspnea/Respdistress Present Illness HPI 76-year-old female with history of diabetes and recent admission here at for renal failure and hyperkalemia, osteomyelitis, was just [facility] to [facility]. She was brought in because of respiratory distress and hypoxia. She was diagnosed to have pulmonary edema, was started on BIPAP and admitted to [facility]. Currently, she looks comfortable on bipap, poor historian because of dementia. Allergies: Coded Allergies: MORPHINE (Verified Adverse Reaction, Severe, PARADOXICAL REACTION, 10/08/12 ) Medication History Scheduled Alendronate Sodium* (Fosamax*), 70 MG ORAL ONCE A WEEK, (Reported) Amlodipine Besylate (Norvasc), 2.5 MG ORAL DAILY, (Reported) Amlodipine Besylate* (Amlodipine Besylate*), 2.5 MG PO DAILY, (Reported) Aspirin Ec* (Aspirin Ec*), 81 MG PO DAILY, (Reported) Azilsartan Med/Chlorthalidone (Edarbyclor 40-12.5 Mg Tablet), 1 TAB ORAL DAILY, (Reported) Bupropion Hcl* (Wellbutrin*), MG ORAL DAILY, (Reported) Cefepime Hcl/D5w (Cefepime-Dextrose 1 Gm/50 Ml), 1 GM IVPB EVERY 12 HOURS Cefepime Hcl/D5w (Cefepime-Dextrose 1 Gm/50 Ml), 1 GM IVPB Q24H, (Reported) Clopidogrel Bisulfate* (Plavix*), 75 MG ORAL DAILY, (Reported) Docusate Sodium* (Docusate Sodium*), 100 MG PO BID, (Reported) Docusate Sodium* (Docusate Sodium*), 100 MG ORAL TWICE A DAY, (Reported) Donepezil Hcl* (Aricept*), 10 MG PO DAILY, (Reported) Esomeprazole Magnesium (Nexium), 40 MG PO DAILY, (Reported) Esomeprazole Magnesium (Nexium), Unknown Dose ORAL DAILY, (Reported) Esomeprazole Magnesium (Nexium), 40 MG ORAL DAILY, (Reported) Febuxostat (Uloric), 40 MG ORAL DAILY, (Reported) Insulin Aspart (Novolog), Unknown Dose SQ AC+HS, (Reported) Insulin Lispro (Humalog), 16 SUBQ BID, (Reported) Insulin Regular, Human* (Novolin R*), 0 SUBQ .SLIDING SCALE, (Reported) Levothyroxine Sodium* (Synthroid*), 25 MCG PO DAILY, (Reported) Lorazepam* (Lorazepam*), 0.5 MG PO TID, (Reported) Memantine HCl/Donepezil HCl (Namzaric 21 Mg-10 Mg Capsule), 1 EACH PO DAILY, ( Reported) Memantine Hcl* (Namenda*), 10 MG PO DAILY, (Reported) Memantine Hcl* (Namenda*), 10 MG ORAL DAILY, (Reported) Multivitamins* (Multivitamins*), 1 TAB ORAL DAILY, (Reported) Nebivolol Hcl (Bystolic*), 5 MG PO DAILY, (Reported) Nph, Human Insulin Isophane* (Novolin N*), 20 SUBQ BID, (Reported) Nph, Human Insulin Isophane* (Novolin N*), 15 UNITS SUBQ DAILY, (Reported) Rosuvastatin Calcium* (Crestor*), 10 MG ORAL DAILY, (Reported) Torsemide* (Demadex*), 10 MG PO DAILY, (Reported) Vancomycin Hcl/D5w (Vancomycin-D5w 1 G/250 Ml), 0.75 GM IVPB Q24H Vancomycin Hcl/D5w (Vancomycin-D5w 1 G/250 Ml), 1 GM IVPB Q24H, (Reported) Scheduled PRN Acetaminophen* (Tylenol Extra Strength*), 650 MG ORAL Q6H PRN for Mild Pain/ Temp > 100.5, (Reported) Miscellaneous Medications Nph, Human Insulin Isophane* (Novolin N*), 5 UNITS SUBQ, (Reported) Olopatadine HCl (Pazeo), 2.5 ML OP, (Reported) Patient History Healthcare decision maker Resuscitation status Advanced Directive on File No Past Medical/Surgical History Past Medical/Surgical History: (1) Osteomyelitis of ankle or foot, right, acute (2) Dementia (3) Diabetes mellitus Review of Systems All Other Systems: negative except mentioned in HPI Physical Exam General Appearance: WD/WN Lines, tubes and drains: peripheral, central line HEENT: normocephalic, atraumatic Neck: non-tender, normal alignment Respiratory/Chest: chest wall non-tender, lungs clear Cardiovascular/Chest: normal peripheral pulses, normal rate Abdomen: normal bowel sounds, non tender Extremities: normal range of motion Neurologic: personal lines account manager II-XII grossly normal, no motor/sensory deficits Lymphatic: anterior cervical Last 24 Hour Vital Signs Date Time Temp Pulse Resp B/P Pulse Ox O2 Delivery O2 Flow Rate FiO2 01/19/17 12:11 65 20 100 Facial 50 01/19/17 09:48 60 20 100 Facial 50 01/19/17 09:47 50 01/19/17 09:44 62 20 128/61 100 Bi-pap 50 01/19/17 09:00 67 98/52 01/19/17 08:17 59 25 Non-Rebreather 15.0 100 01/19/17 08:10 56 20 100 Facial 100 01/19/17 08:06 100 01/19/17 08:00 94.9 67 20 109/54 100 15.0 100 01/19/17 05:56 59 19 111/62 98 Non-Rebreather 15.0 01/19/17 04:14 69 14 102/46 100 Non-Rebreather 15.0 01/19/17 02:18 75 18 117/44 100 Non-Rebreather 15.0 01/19/17 00:48 80 17 133/90 100 Non-Rebreather 15.0 01/18/17 23:00 75 21 123/82 100 Non-Rebreather 15.0 01/18/17 22:22 77 20 99 Non-Rebreather 15.0 100 01/18/17 22:21 70 20 98 Non-Rebreather 15.0 100 01/18/17 21:31 76 20 Non-Rebreather 15.0 01/18/17 21:19 76 20 134/54 98 Non-Rebreather 15.0 Intake and Output 01/18/17 01/19/17 19:00 07:00 Intake Total 205 ml Output Total 10 ml Balance 195 ml Intake IV Total 205 ml Output Urine Total 10 ml Laboratory Tests Test 01/18/17 22:20 01/19/17 03:00 01/19/17 05:45 01/19/17 09:06 White Blood Count 18.5 K/UL (4.8-10.8) H Red Blood Count 3.18 M/UL (4.20-5.40) L Hemoglobin 9.0 G/DL (12.0-16.0) L Hematocrit 28.0 % (37.0-47.0) L Mean Corpuscular Volume 88 FL (80-99) Mean Corpuscular Hemoglobin 28.3 PG (27.0-31.0) Mean Corpuscular Hemoglobin Concent 32.2 G/DL (32.0-36.0) Red Cell Distribution Width 14.0 % (11.6-14.8) Platelet Count 186 K/UL (150-450) Mean Platelet Volume 6.6 FL (6.5-10.1) Neutrophils (%) (Auto) % (45.0-75.0) Lymphocytes (%) (Auto) % (20.0-45.0) Monocytes (%) (Auto) % (1.0-10.0) Eosinophils (%) (Auto) % (0.0-3.0) Basophils (%) (Auto) % (0.0-2.0) Differential Total Cells Counted 100 Neutrophils % (Manual) 84 % (45-75) H Lymphocytes % (Manual) 13 % (20-45) L Monocytes % (Manual) 1 % (1-10) Eosinophils % (Manual) 0 % (0-3) Basophils % (Manual) 0 % (0-2) Band Neutrophils 2 % (0-8) Platelet Estimate Adequate Platelet Morphology Normal Red Blood Cell Morphology Normal Prothrombin Time 10.6 SEC (9.30-11.50) Prothromb Time International Ratio 1.1 (0.9-1.1) Activated Partial Thromboplast Time 27 SEC (23-33) Sodium Level 138 mEQ/L (135-145) 139 mEQ/L (135-145) Potassium Level 5.9 mEQ/L (3.4-4.9) H 5.7 mEQ/L (3.4-4.9) H Chloride Level 96 mEQ/L (98-107) L 97 mEQ/L (98-107) L Carbon Dioxide Level 15 mEQ/L (20-30) L 17 mEQ/L (20-30) L Anion Gap 27 (5-15) H 25 (5-15) H Blood Urea Nitrogen 72 mg/dL (7-23) H 78 mg/dL (7-23) H Creatinine 8.2 mg/dL (0.5-0.9) H 8.7 mg/dL (0.5-0.9) H Estimat Glomerular Filtration Rate mL/min (>60) mL/min (>60) Glucose Level 162 mg/dL (74-106) H 165 mg/dL (74-106) H Lactic Acid Level 2.10 mmol/L (0.66-2.22) Calcium Level 8.5 mg/dL (8.6-10.2) L 8.3 mg/dL (8.6-10.2) L Total Bilirubin 0.2 mg/dL (0.0-1.2) < 0.2 mg/dL (0.0-1.2) Aspartate Amino Transf (AST/SGOT) 27 U/L (5-40) 16 U/L (5-40) Alanine Aminotransferase (ALT/SGPT) 19 U/L (3-33) 16 U/L (3-33) Alkaline Phosphatase 95 U/L (35-104) 87 U/L (35-104) Total Creatine Kinase 111 U/L (26-140) 88 U/L (26-140) Creatine Kinase MB 2.7 ng/mL (< 3.8) Creatine Kinase MB Relative Index 2.4 Troponin I < 0.30 ng/mL (<=0.30) Pro-B-Type Natriuretic Peptide 19971 pg/mL (0-450) H Total Protein 6.6 g/dL (6.6-8.7) 5.9 g/dL (6.6-8.7) L Albumin 3.1 g/dL (3.5-5.2) L 2.9 g/dL (3.5-5.2) L Globulin 3.5 g/dL 3.0 g/dL Albumin/Globulin Ratio 0.8 (1.0-2.7) L 0.9 (1.0-2.7) L Urine Color Pale yellow Pale yellow Urine Appearance Slightly cloudy Slightly cloudy Urine pH 5 (4.5-8.0) 5 (4.5-8.0) Urine Specific [place] 1.015 (1.005-1.035) 1.015 (1.005-1.035) Urine Protein 4+ (NEGATIVE) H 4+ (NEGATIVE) H Urine Glucose (UA) 1+ (NEGATIVE) H Negative (NEGATIVE) Urine Ketones Negative (NEGATIVE) Negative (NEGATIVE) Urine Occult Blood 5+ (NEGATIVE) H 5+ (NEGATIVE) H Urine Nitrite Negative (NEGATIVE) Negative (NEGATIVE) Urine Bilirubin Negative (NEGATIVE) Negative (NEGATIVE) Urine Urobilinogen Normal MG/DL (0.0-1.0) Normal MG/DL (0.0-1.0) Urine Leukocyte Esterase 2+ (NEGATIVE) H 3+ (NEGATIVE) H Urine RBC Tntc /HPF (0 - 2) H 10-15 /HPF (0 - 2) H Urine WBC 30-40 /HPF (0 - 2) H 10-15 /HPF (0 - 2) H Urine Squamous Epithelial Cells Few /LPF (NONE/OCC) Few /LPF (NONE/OCC) Urine Amorphous Sediment Many /LPF (NONE) H Urine Bacteria Many /HPF (NONE) H Few /HPF (NONE) Urine Yeast Moderate /HPF (NONE) H Few /HPF (NONE) H Uric Acid 5.6 mg/dL (3.0-7.5) Phosphorus Level 10.9 mg/dL (2.5-4.8) H Magnesium Level 2.2 mg/dL (1.7-2.5) Free Thyroxine 0.61 ng/dL (0.86-1.85) L Urine Eosinophils None seen Urine Osmolality Pending Urine Random Sodium 45 mmol/L Urine Random Chloride 38 mmol/L Urine Potassium Timed 33 mmol/L Test 01/19/17 09:20 Arterial Blood pH 7.360 (7.350-7.450) Arterial Blood Partial Pressure CO2 37.3 mmHg (35.0-45.0) Arterial Blood Partial Pressure O2 267.9 mmHg (75.0-100.0) H Arterial Blood HCO3 20.6 mmol/L (22.0-26.0) L Arterial Blood Oxygen Saturation 99.0 % (92.0-98.0) H Arterial Blood Base Excess -4.4 Levy Test Positive Height (Feet): 5 Height (Inches): 1.00 Weight (Pounds): 200 Medications Current Medications Medications (Trade) Dose Ordered Sig/Rina Route PRN Reason Start Time Stop Time Status Last Admin Dose Admin Acetaminophen (Tylenol) 650 mg Q4H PRN ORAL fever 01/19/17 02:30 02/18/17 02:29 Albuterol/ Ipratropium (DuoNeb 0.5-3(2.5)mg/3ml) 3 ml Q4H PRN HHN Shortness of Breath 01/19/17 02:30 01/24/17 02:29 Amlodipine Besylate 2.5 mg 2.5 mg DAILY ORAL 01/19/17 09:00 02/18/17 08:59 Cefepime HCl 500 mg/Dextrose 55 ml @ 110 mls/hr Q24H IVPB 01/19/17 22:00 01/26/17 21:59 Dextrose (Dextrose 50%) STAT PRN IV Hypoglycemia 01/19/17 02:30 02/18/17 02:29 Heparin Sodium (Porcine) (Heparin 5000 units/ml) 5,000 units EVERY 12 HOURS SUBQ 01/19/17 09:00 02/18/17 08:59 01/19/17 09:20 Insulin Aspart (NovoLOG) BEFORE MEALS AND HS SUBQ 01/19/17 08:30 02/18/17 08:29 Nitroglycerin (Ntg) 0.4 mg Q5M X 3 DOSES PRN SL Prn Chest Pain 01/19/17 02:30 02/18/17 02:29 Ondansetron HCl (Zofran) 4 mg Q6H PRN IVP Nausea & Vomiting 01/19/17 02:30 02/18/17 02:29 Polyethylene Glycol (Miralax) 17 gm DAILYPRN PRN ORAL Constipation 01/19/17 02:30 02/18/17 02:29 Sodium Chloride (Sodium Chloride 1000ml bag) 1,000 ml @ 100 mls/hr Q10H IVLG 01/20/17 00:21 02/19/17 00:20 Temazepam (Restoril) 15 mg HSPRN PRN ORAL Insomnia 01/19/17 02:30 01/26/17 02:29 Vancomycin HCl 1 ea 1 ea DAILY PRN MISC . 01/19/17 07:00 02/18/17 06:59 Vancomycin HCl/ Dextrose (Vancomycin/D5W) 110 ml @ 110 mls/hr ONCE ONCE IVPB 01/19/17 12:00 01/19/17 12:59 01/19/17 11:58 Assessment/Plan Problem List: (1) Respiratory failure with hypoxia ICD Codes: J96.91 - Respiratory failure, unspecified with hypoxia SNOMED: 72495638281350810 Qualifiers: Qualified Codes: J96.21 - Acute and chronic respiratory failure with hypoxia (2) Acute on chronic renal failure ICD Codes: N17.9 - Acute kidney failure, unspecified; N18.9 - Chronic kidney disease, unspecified SNOMED: 834260573 (3) Diabetes mellitus ICD Codes: E11.9 - Type 2 diabetes mellitus without complications SNOMED: 64434369 (4) Osteomyelitis of ankle or foot, right, acute ICD Codes: M86.171 - Other acute osteomyelitis, right ankle and foot SNOMED: 713429284 Assessment/Plan titrate bipap' will need HD check cultures, check sputum sliding scale dvt prophylaxis check h/h licensed master social worker about end of life planning SHYAM NAVA Jan 19, 2017 12:32
--- NOTE | 2017-01-19 14:49 | Consultation ---
Consult Note Consult Note Chief Complaint: Dyspnea/Respdistress This is a 76-year-old female with history of diabetes and recent admission here at for renal failure and hyperkalemia. She had dialysis with last admission. She was just discharged back to half-way. She was sent back for rest or distress and hypoxia. No fever. Patient is a poor historian. She just yells. There is no nausea no vomiting. No diarrhea. No other complaint. Again poor historian. Allergies: MORPHINE (Verified Adverse Reaction, Severe, PARADOXICAL REACTION, 10/08/12 ) Past Medical History: No History, Except For Hx Cardiac Problems: Yes - Hypothyroidism, angina, hyperk+, CAD Hx Hypertension: Yes Hx Diabetes: Yes Hx Gastrointestinal Problems: Yes Hx Neurological Problems: Yes - Dementia Hx Dementia: Yes Hx Alzheimer's Disease: Yes Hx Memory Loss: Yes Hx Concentration Difficulty: Yes Hx Tremors: Yes Hx Dizziness: Yes Hx Headaches: Yes Hx Weakness: Yes - muscle weakness . Assessment/Plan Status: - Acute renal failure and hyperKalemia - Renal failure, likely diabetic nephropathy / HTN - Sepsis , Pneumonia, Respiratory failure and Hypoxia other - h/o Cellulitis in diabetic foot right LE - Decubitus ulcer - Dementia - Diabetes mellitus - Nonpressure ulcer to level of fascia right lateral ankle - S/P ORIF right ankle Plan: HD today Monitor renal parameters if need further HD Rx ARTUR Kidney done last admission- unremarkable Adjust BP meds- Avoid Nephrotoxics- DC mind altering meds- discussed with CM Per orders BERTRAM CASTAÑEDA Jan 19, 2017 14:49
--- NOTE | 2017-01-19 19:28 | Consultation ---
DATE OF CONSULTATION: 01/19/2017 INFECTIOUS DISEASE CONSULTATION CONSULTING PHYSICIAN: Ever Wynn M.D. REFERRING PHYSICIAN: Zahra Barrera M.D. REASON FOR CONSULTATION: Sepsis. HISTORY OF PRESENT ILLNESS: This is a 76-year-old demented, diabetic female, a intermediate resident, admitted on 01/18/2017 with hypoxia. A chest x-ray is pending. She is currently requiring a non-rebreather mask for oxygenation. The patient was recently admitted with right ankle osteomyelitis and hardware infection, for which she did not complete her antibiotic course due to family request. Antibiotic course was complicated by acute renal failure requiring dialysis. Unknown whether or not she is still receiving dialysis. She has evidence of leukocytosis with left shift and hypothermia. Pancultures and imaging are pending. She has been started on empiric IV vancomycin and cefepime, and ID now consulted to assist in management. PAST MEDICAL HISTORY: 1. Diabetes. 2. Chronic kidney disease. 3. Coronary artery disease. 4. Dementia. 5. Right ankle osteomyelitis and hardware infection. PAST SURGICAL HISTORY: Right ankle open reduction and internal fixation and subsequent hardware removal on 12/15/2016. FAMILY HISTORY: Unknown. SOCIAL HISTORY: The patient is a resident of a intermediate. She has family involved in her care. No active tobacco, alcohol, or illicit drug abuse. ALLERGIES: Morphine. MEDICATIONS: 1. Vancomycin. 2. Cefepime. 3. Norvasc. 4. Subcutaneous heparin. REVIEW OF SYSTEMS: Unable to obtain. PHYSICAL EXAMINATION: VITAL SIGNS: Maximum temperature 94.9, blood pressure 109/54, heart rate in the 50s, respiratory rate 20, and saturating 100% on non-rebreather mask. GENERAL: Mild respiratory distress. CARDIOVASCULAR: Regular rate and rhythm. No murmurs. PULMONARY: Clear to auscultation bilaterally. ABDOMINAL: Bowel sounds present. Soft, nondistended, and nontender. EXTREMITIES: No edema. Right lateral ankle surgical wound is well healed. LABORATORY DATA: White blood cell count 18.5 with left shift, hemoglobin 9, and platelets 186,000. Sodium 139, potassium 5.7, chloride 97, bicarbonate 17, BUN 78, and creatinine 9.7. Lactic acid 2.1. Liver function tests within normal limits. Troponin negative x1. BNP 13,331. MICROBIOLOGY: 1. 01/18/2017, blood culture pending. 2. 01/19/2017, urine culture pending. IMAGIN. 01/19/2017, renal ultrasound pending. 2. 01/18/2017, chest x-ray pending. ASSESSMENT: 1. Probable urinary tract infection. Urine culture is pending. 2. Hypoxia, possible healthcare associated pneumonia. Chest x-ray is pending. 3. History of coagulase-negative staphylococcus bacteremia in one out of four bottles on 01/09/2017, question real as her PICC line tip was positive versus contaminant, rule out recurrence or persistence. Surveillance blood cultures pending. 4. History of right ankle cellulitis/osteomyelitis/hardware infection, status post hardware removal on 12/15/2016 and incomplete course of IV antibiotics per family's request. 5. Probable sepsis. 6. Leukocytosis with left shift. 7. Hypothermia. 8. Acute renal failure on chronic kidney disease, status post dialysis, question ongoing. 9. Dementia. 10. Diabetes type 2. Hemoglobin A1c 6.1%. 11. [facility] resident. 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 13. No antibiotic allergies. 14. Full Code. PLAN: 1. Continue empiric IV vancomycin and cefepime day #1. 2. Follow up cultures. 3. Follow up imaging. 4. Monitor CBC and temperatures. 5. Monitor BMP. 6. Respiratory support as needed. Thank you. We will follow. Ever Wynn M.D. DR: CLAUDIA JOB#: [id number] CC: Zahra Barrera M.D.; Fax#: [phone] Alborzi, M.D ; Fax#: [phone]
[2017-01-19] MEDS ORDERED: LORazepam Inj 2mg/ml 1ml IV PRN (21:30)
[2017-01-19] MEDS ORDERED: Cefepime 500mg in D5W 55ml IVPB SCH (22:00)
[2017-01-20] VITALS: BP 140/71
[2017-01-20] MEDS ORDERED: Vancomycin 1 GM in D5W 275 ML IV SCH (00:30)
[2017-01-20 04:00] VITALS: BP 149/60
[2017-01-20 06:17] LABS: MEAN CORPUSCULAR HEMOGLOBIN 29.4 PG (27.0-31.0); MEAN CORPUSCULAR HGB CONC 34.1 G/DL (32.0-36.0); MEAN CORPUSCULAR VOLUME 86 FL (80-99); MEAN PLATELET VOLUME 6.4 FL (6.5-10.1); PLATELET COUNT 166 K/UL (150-450); RED BLOOD COUNT 2.57 M/UL (4.20-5.40); RED CELL DISTRIBUTION WIDTH 14.1 % (11.6-14.8); WHITE BLOOD COUNT 15.4 K/UL (4.8-10.8)
[2017-01-20] MEDS: NovoLOG Insulin Flexpen SUBQ SCH ×3 (06:24→20:18)
[2017-01-20 07:18] LABS: CRP QUANT 23.7 mg/dL (< 0.5); PHOSPHORUS 7.9 mg/dL (2.5-4.8); URIC ACID 4.3 mg/dL (3.0-7.5)
[2017-01-20 07:20] LABS: ALANINE AMINOTRANSFERASE 14 U/L (3-33); ALBUMIN/GLOBULIN RATIO 0.9 (1.0-2.7); ANION GAP 20 (5-15); ASPARTATE AMINO TRANSFERASE 19 U/L (5-40); CALCIUM 8.1 mg/dL (8.6-10.2); CARBON DIOXIDE 24 mEQ/L (20-30); CHLORIDE 96 mEQ/L (98-107); CHOLESTEROL 206 mg/dL (< 200); CHOLESTEROL/HDL RATIO 7.6 (3.3-4.4); CREATININE 6.7 mg/dL (0.5-0.9); HEMOLYSIS 2; LDL CHOLESTEROL (CALC.) 134 mg/dL (60-99); POTASSIUM 4.2 mEQ/L (3.4-4.9); SODIUM 140 mEQ/L (135-145); TOTAL PROTEIN 5.9 g/dL (6.6-8.7)
[2017-01-20 08:00] VITALS: BP 137/70
[2017-01-20 08:10] LABS: HEMOGLOBIN A1C 5.7 % (< 6.0)
[2017-01-20 08:25] LABS: BAND NEUTROPHILS % (MANUAL) 0 % (0-8); BASOPHILS % (MANUAL) 0 % (0-2); EOSINOPHILS % (MANUAL) 0 % (0-3); LYMPHOCYTES % (MANUAL) 8 % (20-45); NEUTROPHILS % (MANUAL) 87 % (45-75); PLATELET ESTIMATE ADEQUATE; PLATELET MORPHOLOGY NORMAL; TOTAL CELLS COUNTED 100
[2017-01-20] MEDS ORDERED: Aspirin EC 81mg tab ORAL SCH (09:00)
[2017-01-20] MEDS ORDERED: Cefepime 500mg in D5W 55ml IVPB SCH (09:00)
[2017-01-20] MEDS: Heparin 5000 units/ml inj SUBQ SCH ×2 (09:12→20:15)
--- NOTE | 2017-01-20 09:25 | Infectious Diseases Prog Note ---
Assessment/Plan Assessment/Plan ASSESSMENT: 76 y/o female with: // Probable UTI - UCx NGTD // Hypoxia, possible HCAP - now on NC - CXR 01/18: Bilateral diffuse infiltrates versus edema. Left lateral pleural thickening versus fluid // h/o CoNS bacteremia 1/ ( 01/09 ) ?real ( PICC tip+ ) vs contaminant r/o recurrence/persistence - surveillance BCx NGTD // h/o right ankle cellulitis / osteomyelitis / hardware infection - recommended to complete 6 weeks IV daptomycin, cefepime ( end 01/26/17 ), but daughter apparently declined at discharge per documentation - SP hardware removal 12/15 - no culture sent - 3P bone scan: 3 phase increased activity in region of distal aspect of right fibula compatible with hardware loosening and/or osteomyelitis - XR: surgical hardware seen reducing old healed distal fibular and medial malleolar fractures. No acute fractures. No dislocations. Bones are demineralized. - elevated ESR, CRP - h/o right ankle ORIF // Probable sepsis // Leukocytosis, left shift - improved // Hypothermia - improved // ARF on CKD --> IHD per renal // Dementia // DM2 - HbA1c 6.1% // h/o CAD - trop(-) x1 // [facility] resident // VRE colonized // No ABX allergies // Full Code PLAN: - continue empiric IV vancomycin, cefepime d# - f/u cultures - monitor CBC, temperatures - monitor BMP - monitor CXR - respiratory support prn Subjective Allergies: Coded Allergies: MORPHINE (Verified Adverse Reaction, Severe, PARADOXICAL REACTION, 10/08/12 ) Subjective remains afebrile. WBC improved dialysed yesterday Cx NGTD Objective Vital Signs Last 24 Hour Vital Signs Date Time Temp Pulse Resp B/P Pulse Ox O2 Delivery O2 Flow Rate FiO2 01/20/17 09:05 76 137/70 01/20/17 08:00 97.7 76 27 137/70 93 Nasal Cannula 8.0 01/20/17 06:35 76 26 98 Facial 60 01/20/17 05:42 76 25 96 Facial 60 01/20/17 04:12 74 01/20/17 04:00 97.4 74 27 149/60 95 Bi-pap 60 01/20/17 03:32 58 29 97 Facial 60 01/20/17 01:20 62 25 95 Facial 70 01/20/17 00:19 71 01/20/17 00:00 100 01/20/17 00:00 97.0 72 24 140/71 96 Bi-pap 70 01/19/17 21:08 69 22 95 Facial 70 01/19/17 21:00 97.5 82 17 148/63 99 Bi-pap 100 01/19/17 20:00 97.0 76 17 161/70 98 Room Air 01/19/17 20:00 74 01/19/17 19:33 74 22 96 Facial 70 01/19/17 18:34 Bi-pap 15.0 70 01/19/17 18:29 Bi-pap 01/19/17 16:59 65 22 94 Facial 70 01/19/17 16:00 96.4 64 19 136/66 97 Bi-pap 100 01/19/17 16:00 64 01/19/17 15:50 Bi-pap 01/19/17 14:47 69 22 94 Facial 70 01/19/17 13:26 70 20 94 Facial 70 01/19/17 12:11 65 20 100 Facial 50 01/19/17 12:00 61 01/19/17 09:48 60 20 100 Facial 50 01/19/17 09:47 50 01/19/17 09:44 62 20 128/61 100 Bi-pap 50 Height (Feet): 5 Height (Inches): 1.00 Weight (Pounds): 200 General Appearance: no acute distress Respiratory/Chest: no respiratory distress Cardiovascular: normal rate, regular rhythm Abdomen: normal bowel sounds, soft, non tender, non distended Microbiology Date/Time Source Procedure Growth Status 01/18/17 22:20 Blood Blood Culture - Preliminary NO GROWTH AFTER 24 HOURS Resulted 01/18/17 22:05 Blood Blood Culture - Preliminary NO GROWTH AFTER 24 HOURS Resulted 01/19/17 09:06 Urine,Clean Catch Urine Culture - Preliminary NO GROWTH Resulted 01/19/17 03:00 Urine,Clean Catch Urine Culture - Preliminary NO GROWTH Resulted Laboratory Tests Test 01/19/17 12:28 01/20/17 03:10 Plasma/Serum Osmolality Pending White Blood Count 15.4 K/UL (4.8-10.8) H Red Blood Count 2.57 M/UL (4.20-5.40) L Hemoglobin 7.6 G/DL (12.0-16.0) L Hematocrit 22.2 % (37.0-47.0) L Mean Corpuscular Volume 86 FL (80-99) Mean Corpuscular Hemoglobin 29.4 PG (27.0-31.0) Mean Corpuscular Hemoglobin Concent 34.1 G/DL (32.0-36.0) Red Cell Distribution Width 14.1 % (11.6-14.8) Platelet Count 166 K/UL (150-450) Mean Platelet Volume 6.4 FL (6.5-10.1) L Neutrophils (%) (Auto) % (45.0-75.0) Lymphocytes (%) (Auto) % (20.0-45.0) Monocytes (%) (Auto) % (1.0-10.0) Eosinophils (%) (Auto) % (0.0-3.0) Basophils (%) (Auto) % (0.0-2.0) Differential Total Cells Counted 100 Neutrophils % (Manual) 87 % (45-75) H Lymphocytes % (Manual) 8 % (20-45) L Monocytes % (Manual) 5 % (1-10) Eosinophils % (Manual) 0 % (0-3) Basophils % (Manual) 0 % (0-2) Band Neutrophils 0 % (0-8) Platelet Estimate Adequate Platelet Morphology Normal Red Blood Cell Morphology Normal Sodium Level 140 mEQ/L (135-145) Potassium Level 4.2 mEQ/L (3.4-4.9) Chloride Level 96 mEQ/L (98-107) L Carbon Dioxide Level 24 mEQ/L (20-30) Anion Gap 20 (5-15) H Blood Urea Nitrogen 52 mg/dL (7-23) #H Creatinine 6.7 mg/dL (0.5-0.9) H Estimat Glomerular Filtration Rate mL/min (>60) Glucose Level 94 mg/dL (74-106) Hemoglobin A1c 5.7 % (< 6.0) Uric Acid 4.3 mg/dL (3.0-7.5) Calcium Level 8.1 mg/dL (8.6-10.2) L Phosphorus Level 7.9 mg/dL (2.5-4.8) H Magnesium Level 2.0 mg/dL (1.7-2.5) Total Bilirubin 0.2 mg/dL (0.0-1.2) Gamma Glutamyl Transpeptidase 25 U/L (5-36) Aspartate Amino Transf (AST/SGOT) 19 U/L (5-40) Alanine Aminotransferase (ALT/SGPT) 14 U/L (3-33) Alkaline Phosphatase 89 U/L (35-104) Total Creatine Kinase 98 U/L (26-140) C-Reactive Protein, Quantitative 23.7 mg/dL (< 0.5) H Pro-B-Type Natriuretic Peptide 65610 pg/mL (0-450) H Total Protein 5.9 g/dL (6.6-8.7) L Albumin 2.8 g/dL (3.5-5.2) L Globulin 3.1 g/dL Albumin/Globulin Ratio 0.9 (1.0-2.7) L Triglycerides Level 225 mg/dL (< 150) H Cholesterol Level 206 mg/dL (< 200) H LDL Cholesterol 134 mg/dL (60-99) H HDL Cholesterol 27 mg/dL (> 60) Cholesterol/HDL Ratio 7.6 (3.3-4.4) H Thyroid Stimulating Hormone (TSH) 4.200 uIU/mL (0.300-4.500) Current Medications Medications (Trade) Dose Ordered Sig/Rina Route PRN Reason Start Time Stop Time Status Last Admin Dose Admin Acetaminophen (Tylenol) 650 mg Q4H PRN ORAL fever 01/19/17 02:30 02/18/17 02:29 Albuterol/ Ipratropium (DuoNeb 0.5-3(2.5)mg/3ml) 3 ml Q4H PRN HHN Shortness of Breath 01/19/17 02:30 01/24/17 02:29 Amlodipine Besylate (Norvasc) 2.5 mg DAILY ORAL 01/19/17 09:00 02/18/17 08:59 01/20/17 09:05 Aspirin (Ecotrin) 81 mg DAILY ORAL 01/20/17 09:00 02/19/17 08:59 01/20/17 09:05 Cefepime HCl 500 mg/Dextrose 55 ml @ 110 mls/hr Q24H IVPB 01/19/17 22:00 01/26/17 21:59 01/19/17 21:02 Clopidogrel Bisulfate (Plavix) 75 mg DAILY ORAL 01/20/17 09:00 02/19/17 08:59 01/20/17 09:05 Dextrose (Dextrose 50%) STAT PRN IV Hypoglycemia 01/19/17 02:30 02/18/17 02:29 Heparin Sodium (Porcine) (Heparin 5000 units/ml) 5,000 units EVERY 12 HOURS SUBQ 01/19/17 09:00 02/18/17 08:59 01/20/17 09:12 Insulin Aspart (NovoLOG) BEFORE MEALS AND HS SUBQ 01/19/17 08:30 02/18/17 08:29 01/19/17 20:57 Lorazepam (Ativan 2mg/ml 1ml) 1 mg Q4H PRN IV For Anxiety 01/19/17 21:30 01/26/17 21:29 Nitroglycerin (Ntg) 0.4 mg Q5M X 3 DOSES PRN SL Prn Chest Pain 01/19/17 02:30 02/18/17 02:29 Ondansetron HCl (Zofran) 4 mg Q6H PRN IVP Nausea & Vomiting 01/19/17 02:30 02/18/17 02:29 Polyethylene Glycol (Miralax) 17 gm DAILYPRN PRN ORAL Constipation 01/19/17 02:30 02/18/17 02:29 Sodium Chloride (Sodium Chloride 1000ml bag) 1,000 ml @ 30 mls/hr Q24H IVLG 01/19/17 16:00 02/18/17 15:59 01/19/17 16:32 Temazepam (Restoril) 15 mg HSPRN PRN ORAL Insomnia 01/19/17 02:30 01/26/17 02:29 Vancomycin HCl 1 ea 1 ea DAILY PRN MISC . 01/19/17 07:00 02/18/17 06:59 WENDY CHAPMAN Jan 20, 2017 09:25
--- NOTE | 2017-01-20 10:57 | General Progress Note ---
Assessment/Plan Status: stable Status Narrative dialysed 01/19- clinically improved Assessment/Plan Had long talk with daughter Gali 01/19 - Acute renal failure and hyperKalemia - Renal failure, likely diabetic nephropathy / HTN - Sepsis , Pneumonia, Respiratory failure and Hypoxia other - h/o Cellulitis in diabetic foot right LE - Decubitus ulcer - Dementia - Diabetes mellitus - Nonpressure ulcer to level of fascia right lateral ankle - S/P ORIF right ankle Plan: HD in am again 01/21 Monitor renal parameters ARTUR Kidney done last admission- unremarkable Adjust BP meds- Avoid Nephrotoxics- DC mind altering meds- discussed with CM hold Vanco- check level Per orders Subjective ROS Limited/Unobtainable: No Constitutional: Reports: malaise Allergies: Coded Allergies: MORPHINE (Verified Adverse Reaction, Severe, PARADOXICAL REACTION, 10/08/12 ) Objective Last 24 Hour Vital Signs Date Time Temp Pulse Resp B/P Pulse Ox O2 Delivery O2 Flow Rate FiO2 01/20/17 09:05 76 137/70 01/20/17 08:00 97.7 76 27 137/70 93 Nasal Cannula 8.0 01/20/17 08:00 74 01/20/17 08:00 100 01/20/17 06:35 76 26 98 Facial 60 01/20/17 05:42 76 25 96 Facial 60 01/20/17 04:12 74 01/20/17 04:00 97.4 74 27 149/60 95 Bi-pap 60 01/20/17 03:32 58 29 97 Facial 60 01/20/17 01:20 62 25 95 Facial 70 01/20/17 00:19 71 01/20/17 00:00 100 01/20/17 00:00 97.0 72 24 140/71 96 Bi-pap 70 01/19/17 21:08 69 22 95 Facial 70 01/19/17 21:00 97.5 82 17 148/63 99 Bi-pap 100 01/19/17 20:00 97.0 76 17 161/70 98 Room Air 01/19/17 20:00 74 01/19/17 19:33 74 22 96 Facial 70 01/19/17 18:34 Bi-pap 15.0 70 01/19/17 18:29 Bi-pap 01/19/17 16:59 65 22 94 Facial 70 01/19/17 16:00 96.4 64 19 136/66 97 Bi-pap 100 01/19/17 16:00 64 01/19/17 15:50 Bi-pap 01/19/17 14:47 69 22 94 Facial 70 01/19/17 13:26 70 20 94 Facial 70 01/19/17 12:11 65 20 100 Facial 50 01/19/17 12:00 61 Intake and Output 01/19/17 01/20/17 19:00 07:00 Intake Total 170 ml 685 ml Output Total 2250 ml 125 ml Balance -2080 ml 560 ml Intake Oral 200 ml IV Total 170 ml 485 ml Output Urine Total 50 ml 125 ml Hemodialysis UF 2200 ml Laboratory Tests 01/19/17 12:28: Plasma/Serum Osmolality [Pending] 01/20/17 03:10: White Blood Count 15.4H, Red Blood Count 2.57L, Hemoglobin 7.6L, Hematocrit 22.2L, Mean Corpuscular Volume 86, Mean Corpuscular Hemoglobin 29.4, Mean Corpuscular Hemoglobin Concent 34.1, Red Cell Distribution Width 14.1, Platelet Count 166, Mean Platelet Volume 6.4L, Neutrophils (%) (Auto) , Lymphocytes (%) ( Auto) , Monocytes (%) (Auto) , Eosinophils (%) (Auto) , Basophils (%) (Auto) , Differential Total Cells Counted 100, Neutrophils % (Manual) 87H, Lymphocytes % (Manual) 8L, Monocytes % (Manual) 5, Eosinophils % (Manual) 0, Basophils % ( Manual) 0, Band Neutrophils 0, Platelet Estimate Adequate, Platelet Morphology Normal, Red Blood Cell Morphology Normal, Sodium Level 140, Potassium Level 4.2 , Chloride Level 96L, Carbon Dioxide Level 24, Anion Gap 20H, Blood Urea Nitrogen 52#H, Creatinine 6.7H, Estimat Glomerular Filtration Rate , Glucose Level 94, Hemoglobin A1c 5.7, Uric Acid 4.3, Calcium Level 8.1L, Phosphorus Level 7.9H, Magnesium Level 2.0, Total Bilirubin 0.2, Gamma Glutamyl Transpeptidase 25, Aspartate Amino Transf (AST/SGOT) 19, Alanine Aminotransferase (ALT/SGPT) 14, Alkaline Phosphatase 89, Total Creatine Kinase 98, C-Reactive Protein, Quantitative 23.7H, Pro-B-Type Natriuretic Peptide 86898D, Total Protein 5.9L, Albumin 2.8L, Globulin 3.1, Albumin/Globulin Ratio 0.9L, Triglycerides Level 225H, Cholesterol Level 206H, LDL Cholesterol 134H, HDL Cholesterol 27, Cholesterol/HDL Ratio 7.6H, Thyroid Stimulating Hormone (TSH ) 4.200 01/20/17 10:28: Random Vancomycin Level [Pending] Height (Feet): 5 Height (Inches): 1.00 Weight (Pounds): 200 General Appearance: other - improved- Cardiovascular: normal rate Respiratory/Chest: decreased breath sounds Abdomen: soft Objective other PE not changed BERTRAM CASTAÑEDA Jan 20, 2017 10:57
--- NOTE | 2017-01-20 11:27 | Cardiology Report ---
APPROVED REPORT EKG Measurement Heart [id number] [id number] Normal sinus rhythm Low voltage QRS Nonspecific ST and T wave abnormality Abnormal ECG
[2017-01-20 12:00] VITALS: BP 130/68
--- NOTE | 2017-01-20 12:52 | Pulmonology Progress Note ---
Assessment/Plan Problems: (1) Respiratory failure with hypoxia (2) Acute on chronic renal failure (3) Diabetes mellitus (4) Osteomyelitis of ankle or foot, right, acute Assessment/Plan improving HD in am again check cxr abx as per Id sliding scale stable for med/surg Subjective ROS Limited/Unobtainable: No Interval Events: got dialyzed yesterday Allergies: Coded Allergies: MORPHINE (Verified Adverse Reaction, Severe, PARADOXICAL REACTION, 10/08/12 ) Objective Last 24 Hour Vital Signs Date Time Temp Pulse Resp B/P Pulse Ox O2 Delivery O2 Flow Rate FiO2 01/20/17 09:05 76 137/70 01/20/17 08:00 97.7 76 27 137/70 93 Nasal Cannula 8.0 01/20/17 08:00 74 01/20/17 08:00 100 01/20/17 06:35 76 26 98 Facial 60 01/20/17 05:42 76 25 96 Facial 60 01/20/17 04:12 74 01/20/17 04:00 97.4 74 27 149/60 95 Bi-pap 60 01/20/17 03:32 58 29 97 Facial 60 01/20/17 01:20 62 25 95 Facial 70 01/20/17 00:19 71 01/20/17 00:00 100 01/20/17 00:00 97.0 72 24 140/71 96 Bi-pap 70 01/19/17 21:08 69 22 95 Facial 70 01/19/17 21:00 97.5 82 17 148/63 99 Bi-pap 100 01/19/17 20:00 97.0 76 17 161/70 98 Room Air 01/19/17 20:00 74 01/19/17 19:33 74 22 96 Facial 70 01/19/17 18:34 Bi-pap 15.0 70 01/19/17 18:29 Bi-pap 01/19/17 16:59 65 22 94 Facial 70 01/19/17 16:00 96.4 64 19 136/66 97 Bi-pap 100 01/19/17 16:00 64 01/19/17 15:50 Bi-pap 01/19/17 14:47 69 22 94 Facial 70 01/19/17 13:26 70 20 94 Facial 70 Intake and Output 01/19/17 01/20/17 19:00 07:00 Intake Total 170 ml 685 ml Output Total 2250 ml 125 ml Balance -2080 ml 560 ml Intake Oral 200 ml IV Total 170 ml 485 ml Output Urine Total 50 ml 125 ml Hemodialysis UF 2200 ml General Appearance: WD/WN HEENT: normocephalic, atraumatic Respiratory/Chest: chest wall non-tender, lungs clear Cardiovascular: normal peripheral pulses, normal rate Abdomen: normal bowel sounds, soft, non tender Genitourinary: normal external genitalia Extremities: no cyanosis Skin: no rash, no lesions Microbiology Date/Time Source Procedure Growth Status 01/18/17 22:20 Blood Blood Culture - Preliminary NO GROWTH AFTER 24 HOURS Resulted 01/18/17 22:05 Blood Blood Culture - Preliminary NO GROWTH AFTER 24 HOURS Resulted 01/19/17 09:06 Urine,Clean Catch Urine Culture - Preliminary NO GROWTH Resulted 01/19/17 03:00 Urine,Clean Catch Urine Culture - Preliminary NO GROWTH Resulted Laboratory Tests 01/20/17 03:10: White Blood Count 15.4H, Red Blood Count 2.57L, Hemoglobin 7.6L, Hematocrit 22.2L, Mean Corpuscular Volume 86, Mean Corpuscular Hemoglobin 29.4, Mean Corpuscular Hemoglobin Concent 34.1, Red Cell Distribution Width 14.1, Platelet Count 166, Mean Platelet Volume 6.4L, Neutrophils (%) (Auto) , Lymphocytes (%) ( Auto) , Monocytes (%) (Auto) , Eosinophils (%) (Auto) , Basophils (%) (Auto) , Differential Total Cells Counted 100, Neutrophils % (Manual) 87H, Lymphocytes % (Manual) 8L, Monocytes % (Manual) 5, Eosinophils % (Manual) 0, Basophils % ( Manual) 0, Band Neutrophils 0, Platelet Estimate Adequate, Platelet Morphology Normal, Red Blood Cell Morphology Normal, Sodium Level 140, Potassium Level 4.2 , Chloride Level 96L, Carbon Dioxide Level 24, Anion Gap 20H, Blood Urea Nitrogen 52#H, Creatinine 6.7H, Estimat Glomerular Filtration Rate , Glucose Level 94, Hemoglobin A1c 5.7, Uric Acid 4.3, Calcium Level 8.1L, Phosphorus Level 7.9H, Magnesium Level 2.0, Total Bilirubin 0.2, Gamma Glutamyl Transpeptidase 25, Aspartate Amino Transf (AST/SGOT) 19, Alanine Aminotransferase (ALT/SGPT) 14, Alkaline Phosphatase 89, Total Creatine Kinase 98, C-Reactive Protein, Quantitative 23.7H, Pro-B-Type Natriuretic Peptide 86454M, Total Protein 5.9L, Albumin 2.8L, Globulin 3.1, Albumin/Globulin Ratio 0.9L, Triglycerides Level 225H, Cholesterol Level 206H, LDL Cholesterol 134H, HDL Cholesterol 27, Cholesterol/HDL Ratio 7.6H, Thyroid Stimulating Hormone (TSH ) 4.200 01/20/17 10:28: Random Vancomycin Level 31.3 Current Medications Medications (Trade) Dose Ordered Sig/Rina Route PRN Reason Start Time Stop Time Status Last Admin Dose Admin Acetaminophen (Tylenol) 650 mg Q4H PRN ORAL fever 01/19/17 02:30 02/18/17 02:29 Albuterol/ Ipratropium (DuoNeb 0.5-3(2.5)mg/3ml) 3 ml Q4H PRN HHN Shortness of Breath 01/19/17 02:30 01/24/17 02:29 Amlodipine Besylate (Norvasc) 2.5 mg DAILY ORAL 01/19/17 09:00 02/18/17 08:59 01/20/17 09:05 Aspirin (Ecotrin) 81 mg DAILY ORAL 01/20/17 09:00 02/19/17 08:59 01/20/17 09:05 Cefepime HCl 500 mg/Dextrose 55 ml @ 110 mls/hr Q24H IVPB 01/19/17 22:00 01/26/17 21:59 01/19/17 21:02 Clopidogrel Bisulfate (Plavix) 75 mg DAILY ORAL 01/20/17 09:00 02/19/17 08:59 01/20/17 09:05 Dextrose STAT PRN IV Hypoglycemia 01/19/17 02:30 02/18/17 02:29 Heparin Sodium (Porcine) (Heparin 5000 units/ml) 5,000 units EVERY 12 HOURS SUBQ 01/19/17 09:00 02/18/17 08:59 01/20/17 09:12 Insulin Aspart (NovoLOG) BEFORE MEALS AND HS SUBQ 01/19/17 08:30 02/18/17 08:29 01/20/17 12:21 Lorazepam (Ativan 2mg/ml 1ml) 1 mg Q4H PRN IV For Anxiety 01/19/17 21:30 01/26/17 21:29 Nitroglycerin (Ntg) 0.4 mg Q5M X 3 DOSES PRN SL Prn Chest Pain 01/19/17 02:30 02/18/17 02:29 Ondansetron HCl (Zofran) 4 mg Q6H PRN IVP Nausea & Vomiting 01/19/17 02:30 02/18/17 02:29 Polyethylene Glycol (Miralax) 17 gm DAILYPRN PRN ORAL Constipation 01/19/17 02:30 02/18/17 02:29 Sodium Chloride (Sodium Chloride 1000ml bag) 1,000 ml @ 30 mls/hr Q24H IVLG 01/19/17 16:00 02/18/17 15:59 01/19/17 16:32 Temazepam (Restoril) 15 mg HSPRN PRN ORAL Insomnia 01/19/17 02:30 01/26/17 02:29 SHYAM NAVA Jan 20, 2017 12:52
[2017-01-20 16:00] VITALS: BP 147/59
[2017-01-20] MEDS ORDERED: Nitroglycerin Subl 0.4mg tab (Bottle Of 25) SL PRN (16:45)
[2017-01-20] MEDS ORDERED: LORazepam Inj 2mg/ml 1ml IV PRN (17:30)
[2017-01-20] MEDS ORDERED: DuoNeb 0.5-3(2.5)mg/3ml neb HHN PRN (18:30)
[2017-01-20] MEDS: Cefepime HCl 500 MG in D5W 55 ML IVPB SCH (20:56)
[2017-01-20 20:59] VITALS: BP 155/81
[2017-01-21] VITALS: BP 136/67
[2017-01-21 04:00] VITALS: BP 125/61
[2017-01-21 06:44] LABS: MEAN CORPUSCULAR HEMOGLOBIN 28.8 PG (27.0-31.0); MEAN CORPUSCULAR VOLUME 87 FL (80-99); PLATELET COUNT 162 K/UL (150-450); RED BLOOD COUNT 3.13 M/UL (4.20-5.40); RED CELL DISTRIBUTION WIDTH 13.6 % (11.6-14.8); WHITE BLOOD COUNT 14.9 K/UL (4.8-10.8)
[2017-01-21] MEDS: NovoLOG Insulin Flexpen SUBQ SCH ×4 (06:52→21:48)
[2017-01-21 07:01] LABS: ALANINE AMINOTRANSFERASE 14 U/L (3-33); ALBUMIN/GLOBULIN RATIO 0.8 (1.0-2.7); ANION GAP 21 (5-15); ASPARTATE AMINO TRANSFERASE 18 U/L (5-40); CALCIUM 8.1 mg/dL (8.6-10.2); CARBON DIOXIDE 24 mEQ/L (20-30); CHLORIDE 96 mEQ/L (98-107); CREATININE 8.1 mg/dL (0.5-0.9); HEMOLYSIS 2; PHOSPHORUS 8.9 mg/dL (2.5-4.8); POTASSIUM 4.8 mEQ/L (3.4-4.9); SODIUM 141 mEQ/L (135-145); TOTAL PROTEIN 5.8 g/dL (6.6-8.7); URIC ACID 5.8 mg/dL (3.0-7.5)
[2017-01-21 08:00] VITALS: BP 146/66
[2017-01-21] MEDS: Heparin 5000 units/ml inj SUBQ SCH ×2 (08:17→21:49)
[2017-01-21] MEDS: Aspirin EC 81mg tab ORAL SCH (08:21)
--- NOTE | 2017-01-21 09:32 | General Progress Note ---
Assessment/Plan Status: unchanged Status Narrative Vanco level remains high Assessment/Plan Had long talk with daughter Gali 01/19 - Acute renal failure and hyperKalemia - Renal failure, likely diabetic nephropathy / HTN - Sepsis , Pneumonia, Respiratory failure and Hypoxia other - h/o Cellulitis in diabetic foot right LE - Decubitus ulcer - Dementia - Diabetes mellitus - Nonpressure ulcer to level of fascia right lateral ankle - S/P ORIF right ankle Plan: HD 01/21 Monitor renal parameters ARTUR Kidney done last admission- unremarkable Adjust BP meds- Avoid Nephrotoxics- DC mind altering meds- discussed with CM hold Vanco- check level Per orders Subjective ROS Limited/Unobtainable: No Constitutional: Reports: malaise, weakness Allergies: Coded Allergies: MORPHINE (Verified Adverse Reaction, Severe, PARADOXICAL REACTION, 10/08/12 ) Objective Last 24 Hour Vital Signs Date Time Temp Pulse Resp B/P Pulse Ox O2 Delivery O2 Flow Rate FiO2 01/21/17 08:00 98.2 76 20 146/66 98 Non-Rebreather 15.0 01/21/17 04:00 97.3 69 22 125/61 96 01/21/17 00:00 98.6 76 24 136/67 97 01/20/17 20:59 97.5 78 20 155/81 95 15.0 01/20/17 20:30 Non-Rebreather 15.0 100 01/20/17 20:29 97 Non-Rebreather 15.0 100 01/20/17 20:28 76 18 Non-Rebreather 15.0 01/20/17 16:00 71 01/20/17 16:00 8.0 01/20/17 16:00 97.2 81 20 147/59 80 Nasal Cannula 5.0 01/20/17 12:00 97.5 78 21 130/68 93 Nasal Cannula 8.0 01/20/17 12:00 69 01/20/17 12:00 8.0 Intake and Output 01/20/17 01/21/17 19:00 07:00 Intake Total 720 ml 350 ml Output Total 30 ml 150 ml Balance 690 ml 200 ml Intake Oral 480 ml 240 ml IV Total 240 ml 110 ml Output Urine Total 30 ml 150 ml Laboratory Tests 01/20/17 10:28: Random Vancomycin Level 31.3 01/21/17 05:45: Random Vancomycin Level 32.2, White Blood Count 14.9H, Red Blood Count 3.13L, Hemoglobin 9.0L, Hematocrit 27.2L, Mean Corpuscular Volume 87, Mean Corpuscular Hemoglobin 28.8, Mean Corpuscular Hemoglobin Concent 33.0, Red Cell Distribution Width 13.6, Platelet Count 162, Mean Platelet Volume 6.0L, Neutrophils (%) (Auto) , Lymphocytes (%) (Auto) , Monocytes (%) (Auto) , Eosinophils (%) (Auto) , Basophils (%) (Auto) , Neutrophils % (Manual) [Pending] , Lymphocytes % (Manual) [Pending], Platelet Estimate [Pending], Platelet Morphology [Pending], Sodium Level 141, Potassium Level 4.8, Chloride Level 96L , Carbon Dioxide Level 24, Anion Gap 21H, Blood Urea Nitrogen 72H, Creatinine 8.1H, Estimat Glomerular Filtration Rate , Glucose Level 135H, Uric Acid 5.8, Calcium Level 8.1L, Phosphorus Level 8.9H, Total Bilirubin 0.2, Aspartate Amino Transf (AST/SGOT) 18, Alanine Aminotransferase (ALT/SGPT) 14, Alkaline Phosphatase 81, C-Reactive Protein, Quantitative 22.0H, Pro-B-Type Natriuretic Peptide 19393F, Total Protein 5.8L, Albumin 2.7L, Globulin 3.1, Albumin/ Globulin Ratio 0.8L Height (Feet): 5 Height (Inches): 1.00 Weight (Pounds): 200 General Appearance: mild distress Cardiovascular: normal rate Respiratory/Chest: decreased breath sounds Abdomen: distended Objective other PE not changed BERTRAM CASTAÑEDA Jan 21, 2017 09:32
--- NOTE | 2017-01-21 10:15 | Diagnostic Imaging Report ---
Indication:Elevated Bun and Creatinine. Technique: Grayscale and duplex Doppler imaging of the kidneys performed. Comparison: None Findings: Right kidney is malrotated. The right kidney measures 11.6 CM. Left kidney is 13.3 CM in length. Cortical echogenicity is within normal limits. Minimal fullness of the right renal pelvis without definite hydronephrosis. The left kidney is poorly seen. IVC is grossly unremarkable. There is a Gongora catheter present. Bladder is not visualized. Impression: Malrotation of the right kidney. Negative exam otherwise.
--- NOTE | 2017-01-21 10:15 | Infectious Diseases Prog Note ---
Assessment/Plan Assessment/Plan ASSESSMENT: 76 y/o female with: // Probable UTI - UCx NGTD // Hypoxia, possible HCAP - now on NC - CXR 01/18: Bilateral diffuse infiltrates versus edema. Left lateral pleural thickening versus fluid // h/o CoNS bacteremia 1/ ( 01/09 ) ?real ( PICC tip+ ) vs contaminant r/o recurrence/persistence - surveillance BCx NGTD // h/o right ankle cellulitis / osteomyelitis / hardware infection - recommended to complete 6 weeks IV daptomycin, cefepime ( end 01/26/17 ), but daughter apparently declined at discharge per documentation - SP hardware removal 12/15 - no culture sent - 3P bone scan: 3 phase increased activity in region of distal aspect of right fibula compatible with hardware loosening and/or osteomyelitis - XR: surgical hardware seen reducing old healed distal fibular and medial malleolar fractures. No acute fractures. No dislocations. Bones are demineralized. - elevated ESR, CRP - h/o right ankle ORIF // Probable sepsis // Leukocytosis, left shift - improved // Hypothermia - resolved // ARF on CKD --> IHD per renal // Dementia // DM2 - HbA1c 6.1% // h/o CAD - trop(-) x1 // NH resident // VRE colonized // No ABX allergies // Full Code PLAN: - continue empiric IV vancomycin, cefepime d# 3 - f/u cultures - monitor CBC, temperatures - monitor BMP - monitor CXR - respiratory support prn Subjective Allergies: Coded Allergies: MORPHINE (Verified Adverse Reaction, Severe, PARADOXICAL REACTION, 10/08/12 ) Subjective remains afebrile. WBC improved transferred to floor Cx NGTD Objective Vital Signs Last 24 Hour Vital Signs Date Time Temp Pulse Resp B/P Pulse Ox O2 Delivery O2 Flow Rate FiO2 01/21/17 08:00 98.2 76 20 146/66 98 Non-Rebreather 15.0 01/21/17 07:59 75 26 Non-Rebreather 15.0 01/21/17 07:58 93 Non-Rebreather 15.0 100 01/21/17 07:58 Non-Rebreather 15.0 100 01/21/17 04:00 97.3 69 22 125/61 96 01/21/17 00:00 98.6 76 24 136/67 97 01/20/17 20:59 97.5 78 20 155/81 95 15.0 01/20/17 20:30 Non-Rebreather 15.0 100 01/20/17 20:29 97 Non-Rebreather 15.0 100 01/20/17 20:28 76 18 Non-Rebreather 15.0 01/20/17 16:00 71 01/20/17 16:00 8.0 01/20/17 16:00 97.2 81 20 147/59 80 Nasal Cannula 5.0 01/20/17 12:00 97.5 78 21 130/68 93 Nasal Cannula 8.0 01/20/17 12:00 69 01/20/17 12:00 8.0 Height (Feet): 5 Height (Inches): 1.00 Weight (Pounds): 200 General Appearance: no acute distress Respiratory/Chest: decreased breath sounds Cardiovascular: normal rate, regular rhythm Abdomen: normal bowel sounds, soft, non tender, non distended Microbiology Date/Time Source Procedure Growth Status 01/18/17 22:20 Blood Blood Culture - Preliminary NO GROWTH AFTER 48 HOURS Resulted 01/18/17 22:05 Blood Blood Culture - Preliminary NO GROWTH AFTER 48 HOURS Resulted 01/19/17 05:45 Nasal Nares MRSA Culture - Final NO METHICILLIN RESISTANT STAPH AUREUS... Complete 01/19/17 09:06 Urine,Clean Catch Urine Culture - Preliminary NO GROWTH AFTER 24 HOURS Resulted 01/19/17 03:00 Urine,Clean Catch Urine Culture - Preliminary NO GROWTH AFTER 24 HOURS Resulted Laboratory Tests Test 01/20/17 10:28 01/21/17 05:45 Random Vancomycin Level 31.3 ug/mL 32.2 ug/mL White Blood Count 14.9 K/UL (4.8-10.8) H Red Blood Count 3.13 M/UL (4.20-5.40) L Hemoglobin 9.0 G/DL (12.0-16.0) L Hematocrit 27.2 % (37.0-47.0) L Mean Corpuscular Volume 87 FL (80-99) Mean Corpuscular Hemoglobin 28.8 PG (27.0-31.0) Mean Corpuscular Hemoglobin Concent 33.0 G/DL (32.0-36.0) Red Cell Distribution Width 13.6 % (11.6-14.8) Platelet Count 162 K/UL (150-450) Mean Platelet Volume 6.0 FL (6.5-10.1) L Neutrophils (%) (Auto) % (45.0-75.0) Lymphocytes (%) (Auto) % (20.0-45.0) Monocytes (%) (Auto) % (1.0-10.0) Eosinophils (%) (Auto) % (0.0-3.0) Basophils (%) (Auto) % (0.0-2.0) Neutrophils % (Manual) Pending Lymphocytes % (Manual) Pending Platelet Estimate Pending Platelet Morphology Pending Sodium Level 141 mEQ/L (135-145) Potassium Level 4.8 mEQ/L (3.4-4.9) Chloride Level 96 mEQ/L (98-107) L Carbon Dioxide Level 24 mEQ/L (20-30) Anion Gap 21 (5-15) H Blood Urea Nitrogen 72 mg/dL (7-23) H Creatinine 8.1 mg/dL (0.5-0.9) H Estimat Glomerular Filtration Rate mL/min (>60) Glucose Level 135 mg/dL (74-106) H Uric Acid 5.8 mg/dL (3.0-7.5) Calcium Level 8.1 mg/dL (8.6-10.2) L Phosphorus Level 8.9 mg/dL (2.5-4.8) H Total Bilirubin 0.2 mg/dL (0.0-1.2) Aspartate Amino Transf (AST/SGOT) 18 U/L (5-40) Alanine Aminotransferase (ALT/SGPT) 14 U/L (3-33) Alkaline Phosphatase 81 U/L (35-104) C-Reactive Protein, Quantitative 22.0 mg/dL (< 0.5) H Pro-B-Type Natriuretic Peptide 04705 pg/mL (0-450) H Total Protein 5.8 g/dL (6.6-8.7) L Albumin 2.7 g/dL (3.5-5.2) L Globulin 3.1 g/dL Albumin/Globulin Ratio 0.8 (1.0-2.7) L Current Medications Medications (Trade) Dose Ordered Sig/Rina Route PRN Reason Start Time Stop Time Status Last Admin Dose Admin Acetaminophen (Tylenol) 650 mg Q4H PRN ORAL fever 01/20/17 18:30 02/19/17 18:29 Albuterol/ Ipratropium (DuoNeb 0.5-3(2.5)mg/3ml) 3 ml Q4H PRN HHN Shortness of Breath 01/20/17 18:30 01/25/17 18:29 Amlodipine Besylate (Norvasc) 2.5 mg DAILY ORAL 01/21/17 09:00 02/20/17 08:59 Aspirin (Ecotrin) 81 mg DAILY ORAL 01/21/17 09:00 02/20/17 08:59 Cefepime HCl 500 mg/Dextrose 55 ml @ 110 mls/hr Q24H IVPB 01/20/17 22:00 01/26/17 21:59 01/20/17 20:56 Clopidogrel Bisulfate (Plavix) 75 mg DAILY ORAL 01/21/17 09:00 02/20/17 08:59 Dextrose (Dextrose 50%) STAT PRN IV Hypoglycemia 01/21/17 02:30 02/20/17 02:29 Docusate Sodium (Colace) 100 mg TID ORAL 01/21/17 13:00 02/20/17 12:59 Heparin Sodium (Porcine) (Heparin 5000 units/ml) 5,000 units EVERY 12 HOURS SUBQ 01/20/17 21:00 02/19/17 20:59 01/20/17 20:15 Insulin Aspart (NovoLOG) BEFORE MEALS AND HS SUBQ 01/20/17 21:00 02/19/17 20:59 01/21/17 06:52 Lorazepam (Ativan 2mg/ml 1ml) 1 mg Q4H PRN IV For Anxiety 01/20/17 17:30 01/27/17 17:29 01/20/17 17:04 Nitroglycerin (Ntg) 0.4 mg Q5M X 3 DOSES PRN SL Prn Chest Pain 01/20/17 16:45 02/19/17 16:44 Ondansetron HCl (Zofran) 4 mg Q6H PRN IVP Nausea & Vomiting 01/20/17 20:30 02/19/17 20:29 Polyethylene Glycol (Miralax) 17 gm DAILYPRN PRN ORAL Constipation 01/21/17 02:30 02/20/17 02:29 Sevelamer Carbonate (Renvela) 1,600 mg THREE TIMES A DAY ORAL 01/21/17 13:00 02/20/17 12:59 Sodium Chloride (Sodium Chloride 1000ml bag) 1,000 ml @ 30 mls/hr Q24H IVLG 01/20/17 17:00 02/19/17 16:59 01/20/17 17:03 Temazepam (Restoril) 15 mg HSPRN PRN ORAL Insomnia 01/21/17 02:30 01/28/17 02:29 WENDY CHAPMAN 22, 2017 10:15
[2017-01-21 10:46] LABS: BAND NEUTROPHILS % (MANUAL) 0 % (0-8); BASOPHILS % (MANUAL) 0 % (0-2); EOSINOPHILS % (MANUAL) 0 % (0-3); LYMPHOCYTES % (MANUAL) 6 % (20-45); NEUTROPHILS % (MANUAL) 88 % (45-75); PLATELET ESTIMATE ADEQUATE; PLATELET MORPHOLOGY NORMAL; TOTAL CELLS COUNTED 100
--- NOTE | 2017-01-21 11:54 | Diagnostic Imaging Report ---
Indication: Dyspnea Comparison: 01/18/17 A single view chest radiograph was obtained. Findings: Extensive airspace opacities are present bilaterally. Pulmonary vascularity is also prominent as is heart size. The findings are unchanged. Right permacath again noted. Impression: Patchy airspace disease. Findings a due to asymmetric pulmonary edema and/or pneumonia. No change.
[2017-01-21 12:00] VITALS: BP 140/58
[2017-01-21] MEDS: Docusate 100mg tablet ORAL SCH ×2 (12:17→17:40)
[2017-01-21 16:00] VITALS: BP 137/59
[2017-01-21] MEDS ORDERED: NS 275ml ONE (16:23)
[2017-01-21] MEDS: Miralax 17gm pkt ORAL PRN (19:48)
[2017-01-21] MEDS: Norco 5mg/325mg tab ORAL PRN (19:48)
[2017-01-21 20:00] VITALS: BP 92/48
[2017-01-21] MEDS: Cefepime HCl 500 MG in D5W 55 ML IVPB SCH (21:47)
--- NOTE | 2017-01-21 22:39 | Pulmonology Progress Note ---
Assessment/Plan Problems: (1) Respiratory failure with hypoxia (2) Acute on chronic renal failure (3) Diabetes mellitus (4) Osteomyelitis of ankle or foot, right, acute Assessment/Plan improving HD in am again check cxr abx as per Id sliding scale stable for med/surg Subjective ROS Limited/Unobtainable: Yes Respiratory: Reports: dyspnea on exertion, productive cough, shortness of breath, sputum Allergies: Coded Allergies: MORPHINE (Verified Adverse Reaction, Severe, PARADOXICAL REACTION, 10/08/12 ) Objective Last 24 Hour Vital Signs Date Time Temp Pulse Resp B/P Pulse Ox O2 Delivery O2 Flow Rate FiO2 01/21/17 21:02 Venturi Mask 01/21/17 18:10 Venturi Mask 15.0 100 01/21/17 16:00 99.1 78 20 137/59 95 Non-Rebreather 15.0 01/21/17 12:00 97.2 82 20 140/58 98 Non-Rebreather 15.0 01/21/17 08:00 98.2 76 20 146/66 98 Non-Rebreather 15.0 01/21/17 07:59 75 26 Non-Rebreather 15.0 01/21/17 07:58 93 Non-Rebreather 15.0 100 01/21/17 07:58 Non-Rebreather 15.0 100 01/21/17 04:00 97.3 69 22 125/61 96 01/21/17 00:00 98.6 76 24 136/67 97 Intake and Output 01/20/17 01/21/17 19:00 07:00 Intake Total 720 ml 350 ml Output Total 30 ml 150 ml Balance 690 ml 200 ml Intake Oral 480 ml 240 ml IV Total 240 ml 110 ml Output Urine Total 30 ml 150 ml General Appearance: no acute distress HEENT: normocephalic, atraumatic, PERRL Respiratory/Chest: chest wall non-tender, decreased breath sounds, accessory muscle use, rhonchi Breasts: no masses Cardiovascular: normal peripheral pulses, normal rate, regular rhythm, no JVD Abdomen: normal bowel sounds, soft, non tender, no organomegaly Genitourinary: normal external genitalia Extremities: no cyanosis 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 Complete 01/19/17 09:06 Urine,Clean Catch Urine Culture - Preliminary NO GROWTH AFTER 24 HOURS Resulted 01/19/17 03:00 Urine,Clean Catch Urine Culture - Preliminary NO GROWTH AFTER 24 HOURS Resulted Laboratory Tests 01/21/17 05:45: White Blood Count 14.9H, Red Blood Count 3.13L, Hemoglobin 9.0L, Hematocrit 27.2L, Mean Corpuscular Volume 87, Mean Corpuscular Hemoglobin 28.8, Mean Corpuscular Hemoglobin Concent 33.0, Red Cell Distribution Width 13.6, Platelet Count 162, Mean Platelet Volume 6.0L, Neutrophils (%) (Auto) , Lymphocytes (%) ( Auto) , Monocytes (%) (Auto) , Eosinophils (%) (Auto) , Basophils (%) (Auto) , Differential Total Cells Counted 100, Neutrophils % (Manual) 88H, Lymphocytes % (Manual) 6L, Monocytes % (Manual) 6, Eosinophils % (Manual) 0, Basophils % ( Manual) 0, Band Neutrophils 0, Platelet Estimate Adequate, Platelet Morphology Normal, Red Blood Cell Morphology Normal, Sodium Level 141, Potassium Level 4.8 , Chloride Level 96L, Carbon Dioxide Level 24, Anion Gap 21H, Blood Urea Nitrogen 72H, Creatinine 8.1H, Estimat Glomerular Filtration Rate , Glucose Level 135H, Uric Acid 5.8, Calcium Level 8.1L, Phosphorus Level 8.9H, Total Bilirubin 0.2, Aspartate Amino Transf (AST/SGOT) 18, Alanine Aminotransferase ( ALT/SGPT) 14, Alkaline Phosphatase 81, C-Reactive Protein, Quantitative 22.0H, Pro-B-Type Natriuretic Peptide 15105K, Total Protein 5.8L, Albumin 2.7L, Globulin 3.1, Albumin/Globulin Ratio 0.8L, Random Vancomycin Level 32.2 Current Medications Medications (Trade) Dose Ordered Sig/Rina Route PRN Reason Start Time Stop Time Status Last Admin Dose Admin Acetaminophen (Tylenol) 650 mg Q6H PRN ORAL Mild Pain/Temp > 100.5 01/21/17 19:00 02/20/17 18:59 Acetaminophen/ Hydrocodone Bitart ([place] 5/325) 1 tab Q4H PRN ORAL Moderate Pain (Pain Scale 4-6) 01/21/17 19:00 01/28/17 18:59 01/21/17 19:48 Albuterol/ Ipratropium (DuoNeb 0.5-3(2.5)mg/3ml) 3 ml Q4H PRN HHN Shortness of Breath 01/20/17 18:30 01/25/17 18:29 Amlodipine Besylate (Norvasc) 2.5 mg DAILY ORAL 01/21/17 09:00 02/20/17 08:59 Aspirin (Ecotrin) 81 mg DAILY ORAL 01/21/17 09:00 02/20/17 08:59 Cefepime HCl 500 mg/Dextrose 55 ml @ 110 mls/hr Q24H IVPB 01/20/17 22:00 01/26/17 21:59 01/21/17 21:47 Clopidogrel Bisulfate (Plavix) 75 mg DAILY ORAL 01/21/17 09:00 02/20/17 08:59 Dextrose (Dextrose 50%) STAT PRN IV Hypoglycemia 01/21/17 02:30 02/20/17 02:29 Docusate Sodium (Colace) 100 mg TID ORAL 01/21/17 13:00 02/20/17 12:59 01/21/17 17:40 Heparin Sodium (Porcine) (Heparin 5000 units/ml) 5,000 units EVERY 12 HOURS SUBQ 01/20/17 21:00 02/19/17 20:59 01/21/17 21:49 Insulin Aspart (NovoLOG) BEFORE MEALS AND HS SUBQ 01/20/17 21:00 02/19/17 20:59 01/21/17 21:48 Lorazepam (Ativan 2mg/ml 1ml) 1 mg Q4H PRN IV For Anxiety 01/20/17 17:30 01/27/17 17:29 01/20/17 17:04 Nitroglycerin (Ntg) 0.4 mg Q5M X 3 DOSES PRN SL Prn Chest Pain 01/20/17 16:45 02/19/17 16:44 Ondansetron HCl (Zofran) 4 mg Q6H PRN IVP Nausea & Vomiting 01/20/17 20:30 02/19/17 20:29 Polyethylene Glycol (Miralax) 17 gm DAILYPRN PRN ORAL Constipation 01/21/17 02:30 02/20/17 02:29 01/21/17 19:48 Sevelamer Carbonate (Renvela) 1,600 mg THREE TIMES A DAY ORAL 01/21/17 13:00 02/20/17 12:59 01/21/17 17:40 Sodium Chloride (Sodium Chloride 1000ml bag) 1,000 ml @ 30 mls/hr Q24H IVLG 01/20/17 17:00 02/19/17 16:59 01/21/17 17:36 Temazepam (Restoril) 15 mg HSPRN PRN ORAL Insomnia 01/21/17 02:30 01/28/17 02:29 SHYAM NAVA Jan 21, 2017 22:39
[2017-01-22] VITALS: BP 99/44
[2017-01-22 03:50] VITALS: BP 144/74
[2017-01-22] MEDS: NovoLOG Insulin Flexpen SUBQ SCH ×4 (05:52→21:52)
[2017-01-22 06:37] LABS: MEAN CORPUSCULAR HGB CONC 33.3 G/DL (32.0-36.0); MEAN CORPUSCULAR VOLUME 87 FL (80-99); MEAN PLATELET VOLUME 5.9 FL (6.5-10.1); PLATELET COUNT 154 K/UL (150-450); RED BLOOD COUNT 3.02 M/UL (4.20-5.40); RED CELL DISTRIBUTION WIDTH 13.8 % (11.6-14.8); WHITE BLOOD COUNT 15.2 K/UL (4.8-10.8)
[2017-01-22 07:37] LABS: ALANINE AMINOTRANSFERASE 12 U/L (3-33); ALBUMIN/GLOBULIN RATIO 0.9 (1.0-2.7); ANION GAP 19 (5-15); ASPARTATE AMINO TRANSFERASE 17 U/L (5-40); CALCIUM 8.4 mg/dL (8.6-10.2); CARBON DIOXIDE 27 mEQ/L (20-30); CHLORIDE 94 mEQ/L (98-107); CREATININE 6.2 mg/dL (0.5-0.9); CRP QUANT 20.3 mg/dL (< 0.5); HEMOLYSIS 4; PHOSPHORUS 6.7 mg/dL (2.5-4.8); POTASSIUM 4.4 mEQ/L (3.4-4.9); SODIUM 140 mEQ/L (135-145); TOTAL PROTEIN 5.7 g/dL (6.6-8.7); URIC ACID 4.9 mg/dL (3.0-7.5)
[2017-01-22 08:00] VITALS: BP 163/71
[2017-01-22] MEDS: Docusate 100mg tablet ORAL SCH ×3 (08:36→17:42)
[2017-01-22] MEDS: Aspirin EC 81mg tab ORAL SCH (08:36)
[2017-01-22] MEDS: Heparin 5000 units/ml inj SUBQ SCH ×2 (08:38→21:52)
--- NOTE | 2017-01-22 10:56 | Infectious Diseases Prog Note ---
Assessment/Plan Assessment/Plan ASSESSMENT: 76 y/o female with: // Probable UTI - UCx(-) // Hypoxia, possible HCAP - now on NC - CXR 01/21: Patchy airspace disease. Findings a due to asymmetric pulmonary edema and/or pneumonia. No change. // h/o CoNS bacteremia 11/05 ( 01/09 ) ?real ( PICC tip+ ) vs contaminant r/o recurrence/persistence - surveillance BCx NGTD // h/o right ankle cellulitis / osteomyelitis / hardware infection - recommended to complete 6 weeks IV daptomycin, cefepime ( end 01/26/17 ), but daughter apparently declined at discharge per documentation - SP hardware removal 12/15 - no culture sent - 3P bone scan: 3 phase increased activity in region of distal aspect of right fibula compatible with hardware loosening and/or osteomyelitis - XR: surgical hardware seen reducing old healed distal fibular and medial malleolar fractures. No acute fractures. No dislocations. Bones are demineralized. - elevated ESR, CRP - h/o right ankle ORIF // Probable sepsis // Leukocytosis, left shift - stable // Hypothermia - resolved // ARF on CKD --> IHD per renal // Dementia // DM2 - HbA1c 6.1% // h/o CAD - trop(-) x1 // NH resident // VRE colonized // No ABX allergies // Full Code PLAN: - continue empiric IV vancomycin, cefepime d# 4 / - f/u final cultures - monitor CBC, temperatures - monitor BMP - monitor CXR - respiratory support prn Subjective Allergies: Coded Allergies: MORPHINE (Verified Adverse Reaction, Severe, PARADOXICAL REACTION, 10/08/12 ) Subjective remains afebrile. WBC stable Cx NGTD Objective Vital Signs Last 24 Hour Vital Signs Date Time Temp Pulse Resp B/P Pulse Ox O2 Delivery O2 Flow Rate FiO2 01/22/17 08:36 84 144/74 01/22/17 08:00 97.9 78 22 163/71 93 Non-Rebreather 15.0 01/22/17 07:57 Non-Rebreather 15.0 100 01/22/17 07:56 93 Non-Rebreather 15.0 100 01/22/17 07:56 84 22 Non-Rebreather 15.0 100 01/22/17 03:50 98.8 91 21 144/74 91 Venturi Mask 15.0 01/22/17 00:00 97.9 87 22 99/44 87 Venturi Mask 01/21/17 21:02 Venturi Mask 01/21/17 20:00 97.8 93 24 92/48 88 Non-Rebreather 01/21/17 19:30 73 20 Non-Rebreather 15.0 100 01/21/17 19:30 95 Non-Rebreather 15.0 100 01/21/17 19:30 Non-Rebreather 15.0 100 01/21/17 18:10 Venturi Mask 15.0 100 01/21/17 16:00 99.1 78 20 137/59 95 Non-Rebreather 15.0 01/21/17 12:00 97.2 82 20 140/58 98 Non-Rebreather 15.0 Height (Feet): 5 Height (Inches): 1.00 Weight (Pounds): 200 General Appearance: no acute distress Respiratory/Chest: no respiratory distress Cardiovascular: normal rate, regular rhythm Abdomen: normal bowel sounds, soft, non tender, non distended Laboratory Tests Test 01/22/17 05:30 White Blood Count 15.2 K/UL (4.8-10.8) H Red Blood Count 3.02 M/UL (4.20-5.40) L Hemoglobin 8.7 G/DL (12.0-16.0) L Hematocrit 26.3 % (37.0-47.0) L Mean Corpuscular Volume 87 FL (80-99) Mean Corpuscular Hemoglobin 29.0 PG (27.0-31.0) Mean Corpuscular Hemoglobin Concent 33.3 G/DL (32.0-36.0) Red Cell Distribution Width 13.8 % (11.6-14.8) Platelet Count 154 K/UL (150-450) Mean Platelet Volume 5.9 FL (6.5-10.1) L Neutrophils (%) (Auto) % (45.0-75.0) Lymphocytes (%) (Auto) % (20.0-45.0) Monocytes (%) (Auto) % (1.0-10.0) Eosinophils (%) (Auto) % (0.0-3.0) Basophils (%) (Auto) % (0.0-2.0) Sodium Level 140 mEQ/L (135-145) Potassium Level 4.4 mEQ/L (3.4-4.9) Chloride Level 94 mEQ/L (98-107) L Carbon Dioxide Level 27 mEQ/L (20-30) Anion Gap 19 (5-15) H Blood Urea Nitrogen 56 mg/dL (7-23) H Creatinine 6.2 mg/dL (0.5-0.9) H Estimat Glomerular Filtration Rate mL/min (>60) Glucose Level 130 mg/dL (74-106) H Uric Acid 4.9 mg/dL (3.0-7.5) Calcium Level 8.4 mg/dL (8.6-10.2) L Phosphorus Level 6.7 mg/dL (2.5-4.8) H Total Bilirubin 0.3 mg/dL (0.0-1.2) Aspartate Amino Transf (AST/SGOT) 17 U/L (5-40) Alanine Aminotransferase (ALT/SGPT) 12 U/L (3-33) Alkaline Phosphatase 78 U/L (35-104) C-Reactive Protein, Quantitative 20.3 mg/dL (< 0.5) H Pro-B-Type Natriuretic Peptide 95642 pg/mL (0-450) H Total Protein 5.7 g/dL (6.6-8.7) L Albumin 2.7 g/dL (3.5-5.2) L Globulin 3.0 g/dL Albumin/Globulin Ratio 0.9 (1.0-2.7) L Current Medications Medications (Trade) Dose Ordered Sig/Rina Route PRN Reason Start Time Stop Time Status Last Admin Dose Admin Acetaminophen (Tylenol) 650 mg Q6H PRN ORAL Mild Pain/Temp > 100.5 01/21/17 19:00 02/20/17 18:59 Acetaminophen/ Hydrocodone Bitart ([place] 5/325) 1 tab Q4H PRN ORAL Moderate Pain (Pain Scale 4-6) 01/21/17 19:00 01/28/17 18:59 01/21/17 19:48 Albuterol/ Ipratropium (DuoNeb 0.5-3(2.5)mg/3ml) 3 ml Q4H PRN HHN Shortness of Breath 01/20/17 18:30 01/25/17 18:29 Amlodipine Besylate (Norvasc) 2.5 mg DAILY ORAL 01/21/17 09:00 02/20/17 08:59 01/22/17 08:36 Aspirin (Ecotrin) 81 mg DAILY ORAL 01/21/17 09:00 02/20/17 08:59 01/22/17 08:36 Cefepime HCl 500 mg/Dextrose 55 ml @ 110 mls/hr Q24H IVPB 01/20/17 22:00 01/26/17 21:59 01/21/17 21:47 Clopidogrel Bisulfate (Plavix) 75 mg DAILY ORAL 01/21/17 09:00 02/20/17 08:59 01/22/17 08:36 Dextrose (Dextrose 50%) STAT PRN IV Hypoglycemia 01/21/17 02:30 02/20/17 02:29 Docusate Sodium (Colace) 100 mg TID ORAL 01/21/17 13:00 02/20/17 12:59 01/22/17 08:36 Heparin Sodium (Porcine) (Heparin 5000 units/ml) 5,000 units EVERY 12 HOURS SUBQ 01/20/17 21:00 02/19/17 20:59 01/22/17 08:38 Insulin Aspart (NovoLOG) BEFORE MEALS AND HS SUBQ 01/20/17 21:00 02/19/17 20:59 01/22/17 05:52 Lorazepam (Ativan 2mg/ml 1ml) 1 mg Q4H PRN IV For Anxiety 01/20/17 17:30 01/27/17 17:29 01/20/17 17:04 Nitroglycerin (Ntg) 0.4 mg Q5M X 3 DOSES PRN SL Prn Chest Pain 01/20/17 16:45 02/19/17 16:44 Ondansetron HCl (Zofran) 4 mg Q6H PRN IVP Nausea & Vomiting 01/20/17 20:30 02/19/17 20:29 Polyethylene Glycol (Miralax) 17 gm DAILYPRN PRN ORAL Constipation 01/21/17 02:30 02/20/17 02:29 01/21/17 19:48 Sevelamer Carbonate (Renvela) 1,600 mg THREE TIMES A DAY ORAL 01/21/17 13:00 4/21/17 12:59 01/22/17 08:36 Sodium Chloride (Sodium Chloride 1000ml bag) 1,000 ml @ 30 mls/hr Q24H IVLG 01/20/17 17:00 02/19/17 16:59 01/21/17 17:36 Temazepam (Restoril) 15 mg HSPRN PRN ORAL Insomnia 01/21/17 02:30 01/28/17 02:29 WENDY CHAPMAN Jan 22, 2017 10:56
[2017-01-22 12:00] VITALS: BP 149/84
[2017-01-22 16:00] VITALS: BP 144/85
--- NOTE | 2017-01-22 17:23 | General Progress Note ---
Assessment/Plan Status: unchanged Assessment/Plan Had long talk with daughter Gali 01/19 - Acute renal failure and hyperKalemia - Renal failure, likely diabetic nephropathy / HTN - Sepsis , Pneumonia, Respiratory failure and Hypoxia other - h/o Cellulitis in diabetic foot right LE - Decubitus ulcer - Dementia - Diabetes mellitus - Nonpressure ulcer to level of fascia right lateral ankle - S/P ORIF right ankle Plan: HD 01/21 next 01/21 Monitor renal parameters and Vanco level ARTUR Kidney done last admission- unremarkable Adjust BP meds- Avoid Nephrotoxics- DC mind altering meds- discussed with CM Per orders Subjective ROS Limited/Unobtainable: No Constitutional: Reports: malaise, weakness Allergies: Coded Allergies: MORPHINE (Verified Adverse Reaction, Severe, PARADOXICAL REACTION, 10/08/12 ) Objective Last 24 Hour Vital Signs Date Time Temp Pulse Resp B/P Pulse Ox O2 Delivery O2 Flow Rate FiO2 01/22/17 16:00 97.9 84 22 144/85 96 Room Air 01/22/17 12:00 97.7 82 20 149/84 94 Non-Rebreather 15.0 01/22/17 08:36 84 144/74 01/22/17 08:00 97.9 78 22 163/71 93 Non-Rebreather 15.0 01/22/17 07:57 Non-Rebreather 15.0 100 01/22/17 07:56 93 Non-Rebreather 15.0 100 01/22/17 07:56 84 22 Non-Rebreather 15.0 100 01/22/17 03:50 98.8 91 21 144/74 91 Venturi Mask 15.0 01/22/17 00:00 97.9 87 22 99/44 87 Venturi Mask 01/21/17 21:02 Venturi Mask 01/21/17 20:00 97.8 93 24 92/48 88 Non-Rebreather 01/21/17 19:30 73 20 Non-Rebreather 15.0 100 01/21/17 19:30 95 Non-Rebreather 15.0 100 01/21/17 19:30 Non-Rebreather 15.0 100 01/21/17 18:10 Venturi Mask 15.0 100 Intake and Output 01/21/17 01/22/17 19:00 07:00 Intake Total 480 ml 240 ml Output Total 100 ml 2150 ml Balance 380 ml -1910 ml Intake Oral 480 ml IV Total 240 ml Output Urine Total 100 ml 50 ml Hemodialysis UF 2100 ml Laboratory Tests 01/22/17 05:30: White Blood Count 15.2H, Red Blood Count 3.02L, Hemoglobin 8.7L, Hematocrit 26.3L, Mean Corpuscular Volume 87, Mean Corpuscular Hemoglobin 29.0, Mean Corpuscular Hemoglobin Concent 33.3, Red Cell Distribution Width 13.8, Platelet Count 154, Mean Platelet Volume 5.9L, Neutrophils (%) (Auto) , Lymphocytes (%) ( Auto) , Monocytes (%) (Auto) , Eosinophils (%) (Auto) , Basophils (%) (Auto) , Sodium Level 140, Potassium Level 4.4, Chloride Level 94L, Carbon Dioxide Level 27, Anion Gap 19H, Blood Urea Nitrogen 56H, Creatinine 6.2H, Estimat Glomerular Filtration Rate , Glucose Level 130H, Uric Acid 4.9, Calcium Level 8.4L, Phosphorus Level 6.7H, Total Bilirubin 0.3, Aspartate Amino Transf (AST/SGOT) 17 , Alanine Aminotransferase (ALT/SGPT) 12, Alkaline Phosphatase 78, C-Reactive Protein, Quantitative 20.3H, Pro-B-Type Natriuretic Peptide 88942N, Total Protein 5.7L, Albumin 2.7L, Globulin 3.0, Albumin/Globulin Ratio 0.9L Height (Feet): 5 Height (Inches): 1.00 Weight (Pounds): 200 General Appearance: no apparent distress Cardiovascular: tachycardia Respiratory/Chest: decreased breath sounds Objective other PE not changed BERTRAM CASTAÑEDA Jan 22, 2017 17:23
[2017-01-22 20:11] VITALS: BP 119/68
[2017-01-22] MEDS: Miralax 17gm pkt ORAL PRN (21:49)
[2017-01-22] MEDS: Norco 5mg/325mg tab ORAL PRN (21:50)
[2017-01-22] MEDS: Cefepime HCl 500 MG in D5W 55 ML IVPB SCH (21:55)
--- NOTE | 2017-01-22 23:46 | Pulmonology Progress Note ---
Assessment/Plan Problems: (1) Respiratory failure with hypoxia (2) Acute on chronic renal failure (3) Diabetes mellitus (4) Osteomyelitis of ankle or foot, right, acute Assessment/Plan improving HD in am again check cxr abx as per Id sliding scale stable for med/surg Subjective ROS Limited/Unobtainable: Yes Constitutional: Reports: anorexia, fatigue Respiratory: Reports: dry cough, dyspnea at rest, dyspnea on exertion, shortness of breath Neurologic: Reports: confusion, weakness Allergies: Coded Allergies: MORPHINE (Verified Adverse Reaction, Severe, PARADOXICAL REACTION, 10/08/12 ) Objective Last 24 Hour Vital Signs Date Time Temp Pulse Resp B/P Pulse Ox O2 Delivery O2 Flow Rate FiO2 01/22/17 22:49 97.7 01/22/17 21:38 81 20 Non-Rebreather 15.0 100 01/22/17 21:38 Non-Rebreather 15.0 100 01/22/17 21:38 96 Non-Rebreather 15.0 100 01/22/17 20:11 97.7 95 22 119/68 97 Room Air 01/22/17 16:00 97.9 84 22 144/85 96 Room Air 01/22/17 12:00 97.7 82 20 149/84 94 Non-Rebreather 15.0 01/22/17 08:36 84 144/74 01/22/17 08:00 97.9 78 22 163/71 93 Non-Rebreather 15.0 01/22/17 07:57 Non-Rebreather 15.0 100 01/22/17 07:56 93 Non-Rebreather 15.0 100 01/22/17 07:56 84 22 Non-Rebreather 15.0 100 01/22/17 03:50 98.8 91 21 144/74 91 Venturi Mask 15.0 01/22/17 00:00 97.9 87 22 99/44 87 Venturi Mask Intake and Output 01/21/17 01/22/17 19:00 07:00 Intake Total 480 ml 240 ml Output Total 100 ml 2150 ml Balance 380 ml -1910 ml Intake Oral 480 ml IV Total 240 ml Output Urine Total 100 ml 50 ml Hemodialysis UF 2100 ml General Appearance: no acute distress HEENT: normocephalic, atraumatic, PERRL Respiratory/Chest: chest wall non-tender, decreased breath sounds, accessory muscle use, expiratory wheezing Breasts: no masses Cardiovascular: normal peripheral pulses, normal rate, regular rhythm, no JVD Abdomen: normal bowel sounds, soft, non tender, no organomegaly Genitourinary: normal external genitalia Extremities: no cyanosis Skin: no rash, no lesions 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: 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 normal, responsive, disoriented Laboratory Tests 01/22/17 05:30: White Blood Count 15.2H, Red Blood Count 3.02L, Hemoglobin 8.7L, Hematocrit 26.3L, Mean Corpuscular Volume 87, Mean Corpuscular Hemoglobin 29.0, Mean Corpuscular Hemoglobin Concent 33.3, Red Cell Distribution Width 13.8, Platelet Count 154, Mean Platelet Volume 5.9L, Neutrophils (%) (Auto) , Lymphocytes (%) ( Auto) , Monocytes (%) (Auto) , Eosinophils (%) (Auto) , Basophils (%) (Auto) , Sodium Level 140, Potassium Level 4.4, Chloride Level 94L, Carbon Dioxide Level 27, Anion Gap 19H, Blood Urea Nitrogen 56H, Creatinine 6.2H, Estimat Glomerular Filtration Rate , Glucose Level 130H, Uric Acid 4.9, Calcium Level 8.4L, Phosphorus Level 6.7H, Total Bilirubin 0.3, Aspartate Amino Transf (AST/SGOT) 17 , Alanine Aminotransferase (ALT/SGPT) 12, Alkaline Phosphatase 78, C-Reactive Protein, Quantitative 20.3H, Pro-B-Type Natriuretic Peptide 58321Z, Total Protein 5.7L, Albumin 2.7L, Globulin 3.0, Albumin/Globulin Ratio 0.9L Current Medications Medications (Trade) Dose Ordered Sig/Rina Route PRN Reason Start Time Stop Time Status Last Admin Dose Admin Acetaminophen (Tylenol) 650 mg Q6H PRN ORAL Mild Pain/Temp > 100.5 01/21/17 19:00 02/20/17 18:59 Acetaminophen/ Hydrocodone Bitart ([place] 5/325) 1 tab Q4H PRN ORAL Moderate Pain (Pain Scale 4-6) 01/21/17 19:00 01/28/17 18:59 01/22/17 21:50 Albuterol/ Ipratropium (DuoNeb 0.5-3(2.5)mg/3ml) 3 ml Q4H PRN HHN Shortness of Breath 01/20/17 18:30 01/25/17 18:29 Amlodipine Besylate (Norvasc) 2.5 mg DAILY ORAL 01/21/17 09:00 02/20/17 08:59 01/22/17 08:36 Aspirin (Ecotrin) 81 mg DAILY ORAL 01/21/17 09:00 02/20/17 08:59 01/22/17 08:36 Cefepime HCl 500 mg/Dextrose 55 ml @ 110 mls/hr Q24H IVPB 01/20/17 22:00 01/26/17 21:59 01/22/17 21:55 Clopidogrel Bisulfate (Plavix) 75 mg DAILY ORAL 01/21/17 09:00 02/20/17 08:59 01/22/17 08:36 Dextrose (Dextrose 50%) STAT PRN IV Hypoglycemia 01/21/17 02:30 02/20/17 02:29 Docusate Sodium (Colace) 100 mg TID ORAL 01/21/17 13:00 02/20/17 12:59 01/22/17 17:42 Heparin Sodium (Porcine) (Heparin 5000 units/ml) 5,000 units EVERY 12 HOURS SUBQ 01/20/17 21:00 02/19/17 20:59 01/22/17 21:52 Insulin Aspart (NovoLOG) BEFORE MEALS AND HS SUBQ 01/20/17 21:00 02/19/17 20:59 01/22/17 21:52 Lorazepam (Ativan 2mg/ml 1ml) 1 mg Q4H PRN IV For Anxiety 01/20/17 17:30 01/27/17 17:29 01/20/17 17:04 Nitroglycerin (Ntg) 0.4 mg Q5M X 3 DOSES PRN SL Prn Chest Pain 01/20/17 16:45 02/19/17 16:44 Ondansetron HCl (Zofran) 4 mg Q6H PRN IVP Nausea & Vomiting 01/20/17 20:30 02/19/17 20:29 Polyethylene Glycol (Miralax) 17 gm DAILYPRN PRN ORAL Constipation 01/21/17 02:30 02/20/17 02:29 01/22/17 21:49 Sevelamer Carbonate (Renvela) 1,600 mg THREE TIMES A DAY ORAL 01/21/17 13:00 02/20/17 12:59 01/22/17 17:42 Sodium Chloride (Sodium Chloride 1000ml bag) 1,000 ml @ 30 mls/hr Q24H IVLG 01/20/17 17:00 02/19/17 16:59 01/21/17 17:36 Temazepam (Restoril) 15 mg HSPRN PRN ORAL Insomnia 01/21/17 02:30 01/28/17 02:29 SHYAM NAVA Jan 22, 2017 23:46
[2017-01-23] VITALS (8 sets, daily range): BP systolic 136–160; BP diastolic 55–72
[2017-01-23] MEDS: NovoLOG Insulin Flexpen SUBQ SCH ×4 (06:38→22:05)
[2017-01-23 07:29] LABS: MEAN CORPUSCULAR HEMOGLOBIN 29.5 PG (27.0-31.0); MEAN CORPUSCULAR HGB CONC 33.2 G/DL (32.0-36.0); MEAN CORPUSCULAR VOLUME 89 FL (80-99); PLATELET COUNT 139 K/UL (150-450); RED BLOOD COUNT 2.83 M/UL (4.20-5.40); RED CELL DISTRIBUTION WIDTH 14.3 % (11.6-14.8); WHITE BLOOD COUNT 14.5 K/UL (4.8-10.8)
[2017-01-23 07:46] LABS: ALANINE AMINOTRANSFERASE 10 U/L (3-33); ALBUMIN/GLOBULIN RATIO 0.8 (1.0-2.7); ANION GAP 20 (5-15); ASPARTATE AMINO TRANSFERASE 19 U/L (5-40); CALCIUM 8.5 mg/dL (8.6-10.2); CARBON DIOXIDE 25 mEQ/L (20-30); CHLORIDE 99 mEQ/L (98-107); CREATININE 7.8 mg/dL (0.5-0.9); HEMOLYSIS 43; POTASSIUM 5.8 mEQ/L (3.4-4.9); SODIUM 144 mEQ/L (135-145); TOTAL PROTEIN 5.5 g/dL (6.6-8.7)
[2017-01-23 07:52] LABS: CRP QUANT 18.9 mg/dL (< 0.5); MAGNESIUM 2.2 mg/dL (1.7-2.5); PHOSPHORUS 8.8 mg/dL (2.5-4.8); URIC ACID 6.1 mg/dL (3.0-7.5)
[2017-01-23] MEDS: Aspirin EC 81mg tab ORAL SCH (08:30)
[2017-01-23] MEDS: Docusate 100mg tablet ORAL SCH ×3 (08:30→17:24)
[2017-01-23] MEDS: Heparin 5000 units/ml inj SUBQ SCH ×2 (08:32→21:00)
[2017-01-23 08:54] LABS: ANISOCYTOSIS 1+; BAND NEUTROPHILS % (MANUAL) 1 % (0-8); BASOPHILS % (MANUAL) 0 % (0-2); EOSINOPHILS % (MANUAL) 1 % (0-3); HYPOCHROMASIA 3+; LYMPHOCYTES % (MANUAL) 10 % (20-45); NEUTROPHILS % (MANUAL) 84 % (45-75); PLATELET ESTIMATE DECREASED; PLATELET MORPHOLOGY NORMAL; TOTAL CELLS COUNTED 100
--- NOTE | 2017-01-23 10:30 | Infectious Diseases Prog Note ---
Assessment/Plan Assessment/Plan ASSESSMENT: 76 y/o female with: // Probable UTI - UCx(-) // Hypoxia, possible HCAP - now on NC - CXR 01/21: Patchy airspace disease. Findings a due to asymmetric pulmonary edema and/or pneumonia. No change. // h/o CoNS bacteremia 11/05 ( 01/09 ) ?real ( PICC tip+ ) vs contaminant r/o recurrence/persistence - surveillance BCx NGTD // h/o right ankle cellulitis / osteomyelitis / hardware infection - recommended to complete 6 weeks IV daptomycin, cefepime ( end 01/26/17 ), but daughter apparently declined at discharge per documentation - SP hardware removal 12/15 - no culture sent - 3P bone scan: 3 phase increased activity in region of distal aspect of right fibula compatible with hardware loosening and/or osteomyelitis - XR: surgical hardware seen reducing old healed distal fibular and medial malleolar fractures. No acute fractures. No dislocations. Bones are demineralized. - elevated ESR, CRP - h/o right ankle ORIF // Probable sepsis // Leukocytosis, left shift - stable // Hypothermia - resolved // ARF on CKD --> IHD per renal // Dementia // DM2 - HbA1c 6.1% // h/o CAD - trop(-) x1 // NH resident // VRE colonized // No ABX allergies // Full Code PLAN: - continue empiric IV vancomycin, cefepime d# 5 / - f/u final cultures - monitor CBC, temperatures - monitor BMP - monitor CXR - respiratory support prn Subjective Allergies: Coded Allergies: MORPHINE (Verified Adverse Reaction, Severe, PARADOXICAL REACTION, 10/08/12 ) Subjective remains afebrile. WBC stable Cx NGTD Objective Vital Signs Last 24 Hour Vital Signs Date Time Temp Pulse Resp B/P Pulse Ox O2 Delivery O2 Flow Rate FiO2 01/23/17 09:55 Venturi Mask 15.0 01/23/17 09:52 97.2 71 21 156/64 96 Venturi Mask 15.0 01/23/17 08:54 97.9 71 19 160/70 94 Room Air 01/23/17 06:00 Venturi Mask 15.0 01/23/17 05:30 97.6 81 22 156/63 Venturi Mask 15.0 01/23/17 04:00 97.7 78 18 151/72 96 Non-Rebreather 15.0 01/23/17 00:00 97.7 83 20 136/58 94 Non-Rebreather 01/22/17 22:49 97.7 01/22/17 21:38 81 20 Non-Rebreather 15.0 100 01/22/17 21:38 Non-Rebreather 15.0 100 01/22/17 21:38 96 Non-Rebreather 15.0 100 01/22/17 20:11 97.7 95 22 119/68 97 Room Air 01/22/17 16:00 97.9 84 22 144/85 96 Room Air 01/22/17 12:00 97.7 82 20 149/84 94 Non-Rebreather 15.0 Height (Feet): 5 Height (Inches): 1.00 Weight (Pounds): 200 General Appearance: no acute distress Respiratory/Chest: no respiratory distress Cardiovascular: normal rate, regular rhythm Abdomen: normal bowel sounds, soft, non tender, non distended Laboratory Tests Test 01/23/17 05:00 White Blood Count 14.5 K/UL (4.8-10.8) H Red Blood Count 2.83 M/UL (4.20-5.40) L Hemoglobin 8.3 G/DL (12.0-16.0) L Hematocrit 25.1 % (37.0-47.0) L Mean Corpuscular Volume 89 FL (80-99) Mean Corpuscular Hemoglobin 29.5 PG (27.0-31.0) Mean Corpuscular Hemoglobin Concent 33.2 G/DL (32.0-36.0) Red Cell Distribution Width 14.3 % (11.6-14.8) Platelet Count 139 K/UL (150-450) L Mean Platelet Volume 6.0 FL (6.5-10.1) L Neutrophils (%) (Auto) % (45.0-75.0) Lymphocytes (%) (Auto) % (20.0-45.0) Monocytes (%) (Auto) % (1.0-10.0) Eosinophils (%) (Auto) % (0.0-3.0) Basophils (%) (Auto) % (0.0-2.0) Differential Total Cells Counted 100 Neutrophils % (Manual) 84 % (45-75) H Lymphocytes % (Manual) 10 % (20-45) L Monocytes % (Manual) 4 % (1-10) Eosinophils % (Manual) 1 % (0-3) Basophils % (Manual) 0 % (0-2) Band Neutrophils 1 % (0-8) Platelet Estimate Decreased L Platelet Morphology Normal Hypochromasia 3+ Anisocytosis 1+ Sodium Level 144 mEQ/L (135-145) Potassium Level 5.8 mEQ/L (3.4-4.9) H Chloride Level 99 mEQ/L (98-107) Carbon Dioxide Level 25 mEQ/L (20-30) Anion Gap 20 (5-15) H Blood Urea Nitrogen 79 mg/dL (7-23) H Creatinine 7.8 mg/dL (0.5-0.9) H Estimat Glomerular Filtration Rate mL/min (>60) Glucose Level 113 mg/dL (74-106) H Uric Acid 6.1 mg/dL (3.0-7.5) Calcium Level 8.5 mg/dL (8.6-10.2) L Phosphorus Level 8.8 mg/dL (2.5-4.8) H Magnesium Level 2.2 mg/dL (1.7-2.5) Total Bilirubin 0.2 mg/dL (0.0-1.2) Aspartate Amino Transf (AST/SGOT) 19 U/L (5-40) Alanine Aminotransferase (ALT/SGPT) 10 U/L (3-33) Alkaline Phosphatase 75 U/L (35-104) C-Reactive Protein, Quantitative 18.9 mg/dL (< 0.5) H Pro-B-Type Natriuretic Peptide 80349 pg/mL (0-450) H Total Protein 5.5 g/dL (6.6-8.7) L Albumin 2.5 g/dL (3.5-5.2) L Globulin 3.0 g/dL Albumin/Globulin Ratio 0.8 (1.0-2.7) L Random Vancomycin Level 24.0 ug/mL Current Medications Medications (Trade) Dose Ordered Sig/Rina Route PRN Reason Start Time Stop Time Status Last Admin Dose Admin Acetaminophen (Tylenol) 650 mg Q6H PRN ORAL Mild Pain/Temp > 100.5 01/21/17 19:00 02/20/17 18:59 Acetaminophen/ Hydrocodone Bitart ([place] 5/325) 1 tab Q4H PRN ORAL Moderate Pain (Pain Scale 4-6) 01/21/17 19:00 01/28/17 18:59 01/22/17 21:50 Albuterol/ Ipratropium (DuoNeb 0.5-3(2.5)mg/3ml) 3 ml Q4H PRN HHN Shortness of Breath 01/20/17 18:30 01/25/17 18:29 Amlodipine Besylate (Norvasc) 2.5 mg DAILY ORAL 01/21/17 09:00 02/20/17 08:59 01/22/17 08:36 Aspirin (Ecotrin) 81 mg DAILY ORAL 01/21/17 09:00 02/20/17 08:59 01/23/17 08:30 Cefepime HCl 500 mg/Dextrose 55 ml @ 110 mls/hr Q24H IVPB 01/20/17 22:00 01/26/17 21:59 01/22/17 21:55 Clopidogrel Bisulfate (Plavix) 75 mg DAILY ORAL 01/21/17 09:00 02/20/17 08:59 01/23/17 08:30 Dextrose (Dextrose 50%) STAT PRN IV Hypoglycemia 01/21/17 02:30 02/20/17 02:29 Docusate Sodium (Colace) 100 mg TID ORAL 01/21/17 13:00 02/20/17 12:59 01/23/17 08:30 Heparin Sodium (Porcine) (Heparin 5000 units/ml) 5,000 units EVERY 12 HOURS SUBQ 01/20/17 21:00 02/19/17 20:59 01/22/17 21:52 Insulin Aspart (NovoLOG) BEFORE MEALS AND HS SUBQ 01/20/17 21:00 02/19/17 20:59 01/23/17 06:38 Lorazepam (Ativan 2mg/ml 1ml) 1 mg Q4H PRN IV For Anxiety 01/20/17 17:30 01/27/17 17:29 01/20/17 17:04 Nitroglycerin (Ntg) 0.4 mg Q5M X 3 DOSES PRN SL Prn Chest Pain 01/20/17 16:45 02/19/17 16:44 Ondansetron HCl (Zofran) 4 mg Q6H PRN IVP Nausea & Vomiting 01/20/17 20:30 02/19/17 20:29 Polyethylene Glycol (Miralax) 17 gm DAILYPRN PRN ORAL Constipation 01/21/17 02:30 02/20/17 02:29 01/22/17 21:49 Sevelamer Carbonate (Renvela) 1,600 mg THREE TIMES A DAY ORAL 01/21/17 13:00 02/20/17 12:59 01/23/17 08:31 Sodium Chloride (Sodium Chloride 1000ml bag) 1,000 ml @ 30 mls/hr Q24H IVLG 01/20/17 17:00 02/19/17 16:59 01/21/17 17:36 Temazepam (Restoril) 15 mg HSPRN PRN ORAL Insomnia 01/21/17 02:30 01/28/17 02:29 WENDY CHAPMAN 24, 2017 10:30
--- NOTE | 2017-01-23 11:56 | General Progress Note ---
Assessment/Plan Status: unchanged Status Narrative On HD now Assessment/Plan Had long talk with daughter Gali 01/19 - Acute renal failure and hyperKalemia - Renal failure, likely diabetic nephropathy / HTN - Sepsis , Pneumonia, Respiratory failure and Hypoxia other - h/o Cellulitis in diabetic foot right LE - Decubitus ulcer - Dementia - Diabetes mellitus - Nonpressure ulcer to level of fascia right lateral ankle - S/P ORIF right ankle Plan: HD 01/23 Monitor renal parameters and Vanco level- Vanco level lower ARTUR Kidney done last admission- unremarkable Adjust BP meds- Avoid Nephrotoxics- DC mind altering meds- discussed with CM Per orders Subjective ROS Limited/Unobtainable: No Constitutional: Reports: malaise, weakness Allergies: Coded Allergies: MORPHINE (Verified Adverse Reaction, Severe, PARADOXICAL REACTION, 10/08/12 ) Objective Last 24 Hour Vital Signs Date Time Temp Pulse Resp B/P Pulse Ox O2 Delivery O2 Flow Rate FiO2 01/23/17 09:55 Venturi Mask 15.0 01/23/17 09:52 97.2 71 21 156/64 96 Venturi Mask 15.0 01/23/17 08:54 97.9 71 19 160/70 94 Room Air 01/23/17 06:00 Venturi Mask 15.0 01/23/17 05:30 97.6 81 22 156/63 Venturi Mask 15.0 01/23/17 04:00 97.7 78 18 151/72 96 Non-Rebreather 15.0 01/23/17 00:00 97.7 83 20 136/58 94 Non-Rebreather 01/22/17 22:49 97.7 01/22/17 21:38 81 20 Non-Rebreather 15.0 100 01/22/17 21:38 Non-Rebreather 15.0 100 01/22/17 21:38 96 Non-Rebreather 15.0 100 01/22/17 20:11 97.7 95 22 119/68 97 Room Air 01/22/17 16:00 97.9 84 22 144/85 96 Room Air 01/22/17 12:00 97.7 82 20 149/84 94 Non-Rebreather 15.0 Intake and Output 01/22/17 01/23/17 19:00 07:00 Intake Total 600 ml 535 ml Output Total 75 ml 50 ml Balance 525 ml 485 ml Intake Oral 240 ml 120 ml IV Total 360 ml 415 ml Output Urine Total 75 ml 50 ml Laboratory Tests 01/23/17 05:00: White Blood Count 14.5H, Red Blood Count 2.83L, Hemoglobin 8.3L, Hematocrit 25.1L, Mean Corpuscular Volume 89, Mean Corpuscular Hemoglobin 29.5, Mean Corpuscular Hemoglobin Concent 33.2, Red Cell Distribution Width 14.3, Platelet Count 139L, Mean Platelet Volume 6.0L, Neutrophils (%) (Auto) , Lymphocytes (%) (Auto) , Monocytes (%) (Auto) , Eosinophils (%) (Auto) , Basophils (%) (Auto) , Differential Total Cells Counted 100, Neutrophils % (Manual) 84H, Lymphocytes % (Manual) 10L, Monocytes % (Manual) 4, Eosinophils % (Manual) 1, Basophils % ( Manual) 0, Band Neutrophils 1, Platelet Estimate DecreasedL, Platelet Morphology Normal, Hypochromasia 3+, Anisocytosis 1+, Sodium Level 144, Potassium Level 5.8H, Chloride Level 99, Carbon Dioxide Level 25, Anion Gap 20H , Blood Urea Nitrogen 79H, Creatinine 7.8H, Estimat Glomerular Filtration Rate , Glucose Level 113H, Uric Acid 6.1, Calcium Level 8.5L, Phosphorus Level 8.8H, Magnesium Level 2.2, Total Bilirubin 0.2, Aspartate Amino Transf (AST/SGOT) 19, Alanine Aminotransferase (ALT/SGPT) 10, Alkaline Phosphatase 75, C-Reactive Protein, Quantitative 18.9H, Pro-B-Type Natriuretic Peptide 63794K, Total Protein 5.5L, Albumin 2.5L, Globulin 3.0, Albumin/Globulin Ratio 0.8L, Random Vancomycin Level 24.0 Height (Feet): 5 Height (Inches): 1.00 Weight (Pounds): 200 General Appearance: no apparent distress, lethargic Objective other PE not changed BERTRAM CASTAÑEDA Jan 23, 2017 11:56
--- NOTE | 2017-01-23 13:20 | Diagnostic Imaging Report ---
Indication: DYSPNEA Technique: One view of the chest Comparison: 01/21/2017 Findings: Right jugular temporary dialysis catheter is again demonstrated. There has been interim improvement of airspace disease in the left lung. However, extensive interstitial and alveolar infiltrates versus edema persist bilaterally. The heart remains enlarged. There are probably small bilateral pleural effusions. Impression: Improving parenchymal disease on the left, over 2 days. However, still considerable interstitial and airspace disease persists bilaterally
[2017-01-23] MEDS: Norco 5mg/325mg tab ORAL PRN ×2 (17:24→22:04)
[2017-01-23] MEDS: Cefepime HCl 500 MG in D5W 55 ML IVPB SCH (22:04)
--- NOTE | 2017-01-23 22:59 | Pulmonology Progress Note ---
Assessment/Plan Problems: (1) Respiratory failure with hypoxia (2) Acute on chronic renal failure (3) Diabetes mellitus (4) Osteomyelitis of ankle or foot, right, acute Assessment/Plan improving HD in am again check cxr abx as per Id sliding scale stable for med/surg Subjective ROS Limited/Unobtainable: Yes Constitutional: Reports: anorexia, fatigue Respiratory: Reports: dyspnea at rest, productive cough, shortness of breath, sputum Neurologic: Reports: confusion, syncope Allergies: Coded Allergies: MORPHINE (Verified Adverse Reaction, Severe, PARADOXICAL REACTION, 10/08/12 ) Objective Last 24 Hour Vital Signs Date Time Temp Pulse Resp B/P Pulse Ox O2 Delivery O2 Flow Rate FiO2 01/23/17 20:32 Non-Rebreather 15.0 100 01/23/17 20:31 84 20 Non-Rebreather 15.0 100 01/23/17 20:31 98 Non-Rebreather 15.0 100 01/23/17 20:00 98.2 76 20 142/55 97 Simple Mask 15.0 01/23/17 18:23 97.3 01/23/17 17:25 78 159/72 01/23/17 16:00 97.3 78 22 159/72 Room Air 01/23/17 12:51 96.9 76 19 152/66 94 Nasal Cannula 2.0 01/23/17 09:55 Venturi Mask 15.0 01/23/17 09:52 97.2 71 21 156/64 96 Venturi Mask 15.0 01/23/17 08:54 97.9 71 19 160/70 94 Room Air 01/23/17 06:52 88 22 Non-Rebreather 15.0 100 01/23/17 06:52 Non-Rebreather 15.0 100 01/23/17 06:52 95 Non-Rebreather 15.0 100 01/23/17 06:00 Venturi Mask 15.0 01/23/17 05:30 97.6 81 22 156/63 Venturi Mask 15.0 01/23/17 04:00 97.7 78 18 151/72 96 Non-Rebreather 15.0 01/23/17 00:00 97.7 83 20 136/58 94 Non-Rebreather Intake and Output 01/22/17 01/23/17 19:00 07:00 Intake Total 600 ml 535 ml Output Total 75 ml 50 ml Balance 525 ml 485 ml Intake Oral 240 ml 120 ml IV Total 360 ml 415 ml Output Urine Total 75 ml 50 ml General Appearance: no acute distress HEENT: normocephalic, atraumatic, PERRL Respiratory/Chest: chest wall non-tender, decreased breath sounds, accessory muscle use Breasts: no masses Cardiovascular: normal peripheral pulses, normal rate, regular rhythm, no JVD Abdomen: normal bowel sounds, soft, non tender, no organomegaly Genitourinary: normal external genitalia Extremities: no cyanosis Skin: no rash 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 normal, responsive, disoriented Laboratory Tests 01/23/17 05:00: White Blood Count 14.5H, Red Blood Count 2.83L, Hemoglobin 8.3L, Hematocrit 25.1L, Mean Corpuscular Volume 89, Mean Corpuscular Hemoglobin 29.5, Mean Corpuscular Hemoglobin Concent 33.2, Red Cell Distribution Width 14.3, Platelet Count 139L, Mean Platelet Volume 6.0L, Neutrophils (%) (Auto) , Lymphocytes (%) (Auto) , Monocytes (%) (Auto) , Eosinophils (%) (Auto) , Basophils (%) (Auto) , Differential Total Cells Counted 100, Neutrophils % (Manual) 84H, Lymphocytes % (Manual) 10L, Monocytes % (Manual) 4, Eosinophils % (Manual) 1, Basophils % ( Manual) 0, Band Neutrophils 1, Platelet Estimate DecreasedL, Platelet Morphology Normal, Hypochromasia 3+, Anisocytosis 1+, Sodium Level 144, Potassium Level 5.8H, Chloride Level 99, Carbon Dioxide Level 25, Anion Gap 20H , Blood Urea Nitrogen 79H, Creatinine 7.8H, Estimat Glomerular Filtration Rate , Glucose Level 113H, Uric Acid 6.1, Calcium Level 8.5L, Phosphorus Level 8.8H, Magnesium Level 2.2, Total Bilirubin 0.2, Aspartate Amino Transf (AST/SGOT) 19, Alanine Aminotransferase (ALT/SGPT) 10, Alkaline Phosphatase 75, C-Reactive Protein, Quantitative 18.9H, Pro-B-Type Natriuretic Peptide 54457A, Total Protein 5.5L, Albumin 2.5L, Globulin 3.0, Albumin/Globulin Ratio 0.8L, Random Vancomycin Level 24.0 Current Medications Medications (Trade) Dose Ordered Sig/Rina Route PRN Reason Start Time Stop Time Status Last Admin Dose Admin Acetaminophen (Tylenol) 650 mg Q6H PRN ORAL Mild Pain/Temp > 100.5 01/21/17 19:00 02/20/17 18:59 Acetaminophen/ Hydrocodone Bitart ([place] 5/325) 1 tab Q4H PRN ORAL Moderate Pain (Pain Scale 4-6) 01/21/17 19:00 01/28/17 18:59 01/23/17 22:04 Albuterol/ Ipratropium (DuoNeb 0.5-3(2.5)mg/3ml) 3 ml Q4H PRN HHN Shortness of Breath 01/20/17 18:30 01/25/17 18:29 Amlodipine Besylate (Norvasc) 2.5 mg BID ORAL 01/23/17 18:00 02/22/17 17:59 01/23/17 17:25 Aspirin (Ecotrin) 81 mg DAILY ORAL 01/21/17 09:00 02/20/17 08:59 01/23/17 08:30 Cefepime HCl 500 mg/Dextrose 55 ml @ 110 mls/hr Q24H IVPB 01/20/17 22:00 01/26/17 21:59 01/23/17 22:04 Clopidogrel Bisulfate (Plavix) 75 mg DAILY ORAL 01/21/17 09:00 02/20/17 08:59 01/23/17 08:30 Dextrose (Dextrose 50%) STAT PRN IV Hypoglycemia 01/21/17 02:30 02/20/17 02:29 Docusate Sodium (Colace) 100 mg TID ORAL 01/21/17 13:00 02/20/17 12:59 01/23/17 17:24 Heparin Sodium (Porcine) (Heparin 5000 units/ml) 5,000 units EVERY 12 HOURS SUBQ 01/20/17 21:00 02/19/17 20:59 01/22/17 21:52 Insulin Aspart (NovoLOG) BEFORE MEALS AND HS SUBQ 01/20/17 21:00 02/19/17 20:59 01/23/17 22:05 Lorazepam (Ativan 2mg/ml 1ml) 1 mg Q4H PRN IV For Anxiety 01/20/17 17:30 01/27/17 17:29 01/20/17 17:04 Nitroglycerin (Ntg) 0.4 mg Q5M X 3 DOSES PRN SL Prn Chest Pain 01/20/17 16:45 02/19/17 16:44 Ondansetron HCl (Zofran) 4 mg Q6H PRN IVP Nausea & Vomiting 01/20/17 20:30 02/19/17 20:29 Polyethylene Glycol (Miralax) 17 gm DAILYPRN PRN ORAL Constipation 01/21/17 02:30 02/20/17 02:29 01/22/17 21:49 Sevelamer Carbonate (Renvela) 2,400 mg THREE TIMES A DAY ORAL 01/23/17 13:00 02/22/17 12:59 01/23/17 17:24 Sodium Chloride (Sodium Chloride 1000ml bag) 1,000 ml @ 30 mls/hr Q24H IVLG 01/20/17 17:00 02/19/17 16:59 01/23/17 08:00 Temazepam (Restoril) 15 mg HSPRN PRN ORAL Insomnia 01/21/17 02:30 01/28/17 02:29 01/23/17 22:04 SHYAM NAVA Jan 23, 2017 22:59
[2017-01-24] VITALS: BP 139/77
[2017-01-24 04:00] VITALS: BP 144/64
[2017-01-24] MEDS: NovoLOG Insulin Flexpen SUBQ SCH ×4 (06:30→20:31)
[2017-01-24 07:11] LABS: BASOPHILS % (AUTO) 0.8 % (0.0-2.0); EOSINOPHILS % (AUTO) 2.7 % (0.0-3.0); LYMPHOCYTES % (AUTO) 7.4 % (20.0-45.0); MEAN CORPUSCULAR HEMOGLOBIN 29.4 PG (27.0-31.0); MEAN CORPUSCULAR HGB CONC 32.9 G/DL (32.0-36.0); MEAN CORPUSCULAR VOLUME 89 FL (80-99); MEAN PLATELET VOLUME 5.8 FL (6.5-10.1); MONOCYTES % (AUTO) 6.5 % (1.0-10.0); NEUTROPHILS % (AUTO) 82.6 % (45.0-75.0); PLATELET COUNT 115 K/UL (150-450); RED BLOOD COUNT 2.88 M/UL (4.20-5.40); RED CELL DISTRIBUTION WIDTH 14.1 % (11.6-14.8); WHITE BLOOD COUNT 13.2 K/UL (4.8-10.8)
[2017-01-24 07:40] LABS: ALANINE AMINOTRANSFERASE 10 U/L (3-33); ALBUMIN/GLOBULIN RATIO 0.9 (1.0-2.7); ANION GAP 14 (5-15); ASPARTATE AMINO TRANSFERASE 16 U/L (5-40); CALCIUM 8.3 mg/dL (8.6-10.2); CARBON DIOXIDE 31 mEQ/L (20-30); CHLORIDE 100 mEQ/L (98-107); CREATININE 5.1 mg/dL (0.5-0.9); HEMOLYSIS 3; MAGNESIUM 2.1 mg/dL (1.7-2.5); PHOSPHORUS 5.8 mg/dL (2.5-4.8); POTASSIUM 4.4 mEQ/L (3.4-4.9); SODIUM 145 mEQ/L (135-145); TOTAL PROTEIN 5.5 g/dL (6.6-8.7); URIC ACID 4.2 mg/dL (3.0-7.5)
[2017-01-24] MEDS: Docusate 100mg tablet ORAL SCH ×3 (08:35→17:26)
[2017-01-24] MEDS: Aspirin EC 81mg tab ORAL SCH (08:35)
[2017-01-24] MEDS: Miralax 17gm pkt ORAL PRN (08:35)
[2017-01-24] MEDS: Heparin 5000 units/ml inj SUBQ SCH ×2 (08:36→20:32)
[2017-01-24 08:58] VITALS: BP 158/89
--- NOTE | 2017-01-24 10:59 | Diagnostic Imaging Report ---
Indication: Dyspnea Technique: XRAY CHEST 1 V Comparison: 01/23/17 Findings: Patient rotation limits evaluation. Cardiomediastinal silhouette is grossly stable. Right internal jugular Jos catheter is again noted. Extensive bilateral interstitial and airspace opacities are again noted. Osseous structures are grossly stable. Impression: No interval change from 01/23/17.
--- NOTE | 2017-01-24 11:02 | Infectious Diseases Prog Note ---
Assessment/Plan Assessment/Plan ASSESSMENT: 76 y/o female with: // Probable UTI - UCx(-) // Hypoxia, possible HCAP - now on NC - CXR 01/21: Patchy airspace disease. Findings a due to asymmetric pulmonary edema and/or pneumonia. No change. // h/o CoNS bacteremia 11/05 ( 01/09 ) ?real ( PICC tip+ ) vs contaminant r/o recurrence/persistence - surveillance BCx NGTD // h/o right ankle cellulitis / osteomyelitis / hardware infection - recommended to complete 6 weeks IV daptomycin, cefepime ( end 01/26/17 ), but daughter apparently declined at discharge per documentation - SP hardware removal 12/15 - no culture sent - 3P bone scan: 3 phase increased activity in region of distal aspect of right fibula compatible with hardware loosening and/or osteomyelitis - XR: surgical hardware seen reducing old healed distal fibular and medial malleolar fractures. No acute fractures. No dislocations. Bones are demineralized. - elevated ESR, CRP - h/o right ankle ORIF // Probable sepsis // Leukocytosis, left shift - improved, Cx(-) // Hypothermia - resolved // ARF on CKD --> IHD per renal // Dementia // DM2 - HbA1c 6.1% // h/o CAD - trop(-) x1 // NH resident // VRE colonized // No ABX allergies // Full Code PLAN: - continue empiric IV vancomycin, cefepime d# 6 - f/u final cultures - monitor CBC, temperatures - monitor BMP - monitor CXR - respiratory support prn Subjective Allergies: Coded Allergies: MORPHINE (Verified Adverse Reaction, Severe, PARADOXICAL REACTION, 10/08/12 ) Subjective remains afebrile. WBC improved Cx(-) Objective Vital Signs Last 24 Hour Vital Signs Date Time Temp Pulse Resp B/P Pulse Ox O2 Delivery O2 Flow Rate FiO2 01/24/17 08:58 97.0 80 21 158/89 94 Nasal Cannula 15.0 01/24/17 08:35 77 144/64 01/24/17 04:00 96.8 77 18 144/64 97 Non-Rebreather 15.0 01/24/17 00:00 97.9 73 18 139/77 100 Non-Rebreather 01/23/17 23:03 98.2 01/23/17 20:32 Non-Rebreather 15.0 100 01/23/17 20:31 84 20 Non-Rebreather 15.0 100 01/23/17 20:31 98 Non-Rebreather 15.0 100 01/23/17 20:00 98.2 76 20 142/55 97 Simple Mask 15.0 01/23/17 17:25 78 159/72 01/23/17 16:00 97.3 78 22 159/72 Room Air 01/23/17 12:51 96.9 76 19 152/66 94 Nasal Cannula 2.0 Height (Feet): 5 Height (Inches): 1.00 Weight (Pounds): 200 General Appearance: no acute distress Respiratory/Chest: no respiratory distress Cardiovascular: normal rate, regular rhythm Abdomen: normal bowel sounds, soft, non tender, non distended Laboratory Tests Test 01/24/17 04:55 White Blood Count 13.2 K/UL (4.8-10.8) H Red Blood Count 2.88 M/UL (4.20-5.40) L Hemoglobin 8.4 G/DL (12.0-16.0) L Hematocrit 25.7 % (37.0-47.0) L Mean Corpuscular Volume 89 FL (80-99) Mean Corpuscular Hemoglobin 29.4 PG (27.0-31.0) Mean Corpuscular Hemoglobin Concent 32.9 G/DL (32.0-36.0) Red Cell Distribution Width 14.1 % (11.6-14.8) Platelet Count 115 K/UL (150-450) L Mean Platelet Volume 5.8 FL (6.5-10.1) L Neutrophils (%) (Auto) 82.6 % (45.0-75.0) H Lymphocytes (%) (Auto) 7.4 % (20.0-45.0) L Monocytes (%) (Auto) 6.5 % (1.0-10.0) Eosinophils (%) (Auto) 2.7 % (0.0-3.0) Basophils (%) (Auto) 0.8 % (0.0-2.0) Sodium Level 145 mEQ/L (135-145) Potassium Level 4.4 mEQ/L (3.4-4.9) Chloride Level 100 mEQ/L (98-107) Carbon Dioxide Level 31 mEQ/L (20-30) H Anion Gap 14 (5-15) Blood Urea Nitrogen 44 mg/dL (7-23) #H Creatinine 5.1 mg/dL (0.5-0.9) H Estimat Glomerular Filtration Rate mL/min (>60) Glucose Level 115 mg/dL (74-106) H Uric Acid 4.2 mg/dL (3.0-7.5) Calcium Level 8.3 mg/dL (8.6-10.2) L Phosphorus Level 5.8 mg/dL (2.5-4.8) H Magnesium Level 2.1 mg/dL (1.7-2.5) Total Bilirubin 0.3 mg/dL (0.0-1.2) Aspartate Amino Transf (AST/SGOT) 16 U/L (5-40) Alanine Aminotransferase (ALT/SGPT) 10 U/L (3-33) Alkaline Phosphatase 74 U/L (35-104) Total Protein 5.5 g/dL (6.6-8.7) L Albumin 2.7 g/dL (3.5-5.2) L Globulin 2.8 g/dL Albumin/Globulin Ratio 0.9 (1.0-2.7) L Current Medications Medications (Trade) Dose Ordered Sig/Rina Route PRN Reason Start Time Stop Time Status Last Admin Dose Admin Acetaminophen (Tylenol) 650 mg Q6H PRN ORAL Mild Pain/Temp > 100.5 01/21/17 19:00 02/20/17 18:59 Acetaminophen/ Hydrocodone Bitart ([place] 5/325) 1 tab Q4H PRN ORAL Moderate Pain (Pain Scale 4-6) 01/21/17 19:00 01/28/17 18:59 01/23/17 22:04 Albuterol/ Ipratropium (DuoNeb 0.5-3(2.5)mg/3ml) 3 ml Q4H PRN HHN Shortness of Breath 01/20/17 18:30 01/25/17 18:29 Amlodipine Besylate (Norvasc) 2.5 mg BID ORAL 01/23/17 18:00 02/22/17 17:59 01/24/17 08:35 Aspirin (Ecotrin) 81 mg DAILY ORAL 01/21/17 09:00 02/20/17 08:59 01/24/17 08:35 Cefepime HCl 500 mg/Dextrose 55 ml @ 110 mls/hr Q24H IVPB 01/20/17 22:00 01/26/17 21:59 01/23/17 22:04 Clopidogrel Bisulfate (Plavix) 75 mg DAILY ORAL 01/21/17 09:00 02/20/17 08:59 01/24/17 08:35 Dextrose (Dextrose 50%) STAT PRN IV Hypoglycemia 01/21/17 02:30 02/20/17 02:29 Docusate Sodium (Colace) 100 mg TID ORAL 01/21/17 13:00 02/20/17 12:59 01/24/17 08:35 Heparin Sodium (Porcine) (Heparin 5000 units/ml) 5,000 units EVERY 12 HOURS SUBQ 01/20/17 21:00 02/19/17 20:59 01/22/17 21:52 Insulin Aspart (NovoLOG) BEFORE MEALS AND HS SUBQ 01/20/17 21:00 02/19/17 20:59 01/23/17 22:05 Lorazepam (Ativan 2mg/ml 1ml) 1 mg Q4H PRN IV For Anxiety 01/20/17 17:30 01/27/17 17:29 01/20/17 17:04 Nitroglycerin (Ntg) 0.4 mg Q5M X 3 DOSES PRN SL Prn Chest Pain 01/20/17 16:45 02/19/17 16:44 Ondansetron HCl (Zofran) 4 mg Q6H PRN IVP Nausea & Vomiting 01/20/17 20:30 02/19/17 20:29 Polyethylene Glycol (Miralax) 17 gm DAILYPRN PRN ORAL Constipation 01/21/17 02:30 02/20/17 02:29 01/24/17 08:35 Sevelamer Carbonate (Renvela) 2,400 mg THREE TIMES A DAY ORAL 01/23/17 13:00 02/22/17 12:59 01/24/17 08:36 Sodium Chloride (Sodium Chloride 1000ml bag) 1,000 ml @ 30 mls/hr Q24H IVLG 01/20/17 17:00 02/19/17 16:59 01/23/17 08:00 Temazepam (Restoril) 15 mg HSPRN PRN ORAL Insomnia 01/21/17 02:30 01/28/17 02:29 01/23/17 22:04 WENDY CHAPMAN Jan 24, 2017 11:02
--- NOTE | 2017-01-24 12:51 | General Progress Note ---
Assessment/Plan Status: unchanged Assessment/Plan Had long talk with daughter Gali 01/19 - Acute renal failure and hyperKalemia - Renal failure, likely diabetic nephropathy / HTN - Sepsis , Pneumonia, Respiratory failure and Hypoxia other - h/o Cellulitis in diabetic foot right LE - Decubitus ulcer - Dementia - Diabetes mellitus - Nonpressure ulcer to level of fascia right lateral ankle - S/P ORIF right ankle Plan: HD 01/23 Monitor renal parameters and Vanco level- Vanco level lower ARTUR Kidney done last admission- unremarkable Adjust BP meds- Avoid Nephrotoxics- DC mind altering meds- discussed with CM Per orders Subjective ROS Limited/Unobtainable: No Constitutional: Reports: malaise, weakness Allergies: Coded Allergies: MORPHINE (Verified Adverse Reaction, Severe, PARADOXICAL REACTION, 10/08/12 ) Objective Last 24 Hour Vital Signs Date Time Temp Pulse Resp B/P Pulse Ox O2 Delivery O2 Flow Rate FiO2 01/24/17 08:58 97.0 80 21 158/89 94 Nasal Cannula 15.0 01/24/17 08:35 77 144/64 01/24/17 04:00 96.8 77 18 144/64 97 Non-Rebreather 15.0 01/24/17 00:00 97.9 73 18 139/77 100 Non-Rebreather 01/23/17 23:03 98.2 01/23/17 20:32 Non-Rebreather 15.0 100 01/23/17 20:31 84 20 Non-Rebreather 15.0 100 01/23/17 20:31 98 Non-Rebreather 15.0 100 01/23/17 20:00 98.2 76 20 142/55 97 Simple Mask 15.0 01/23/17 17:25 78 159/72 01/23/17 16:00 97.3 78 22 159/72 Room Air 01/23/17 12:51 96.9 76 19 152/66 94 Nasal Cannula 2.0 Intake and Output 01/23/17 01/24/17 19:00 07:00 Intake Total 330 ml 535 ml Output Total 2550 ml 80 ml Balance -2220 ml 455 ml Intake Oral 120 ml IV Total 330 ml 415 ml Output Urine Total 250 ml 80 ml Hemodialysis UF 2300 ml # Bowel Movements 1 Laboratory Tests 01/24/17 04:55: White Blood Count 13.2H, Red Blood Count 2.88L, Hemoglobin 8.4L, Hematocrit 25.7L, Mean Corpuscular Volume 89, Mean Corpuscular Hemoglobin 29.4, Mean Corpuscular Hemoglobin Concent 32.9, Red Cell Distribution Width 14.1, Platelet Count 115L, Mean Platelet Volume 5.8L, Neutrophils (%) (Auto) 82.6H, Lymphocytes (%) (Auto) 7.4L, Monocytes (%) (Auto) 6.5, Eosinophils (%) (Auto) 2.7, Basophils (%) (Auto) 0.8, Sodium Level 145, Potassium Level 4.4, Chloride Level 100, Carbon Dioxide Level 31H, Anion Gap 14, Blood Urea Nitrogen 44#H, Creatinine 5.1H, Estimat Glomerular Filtration Rate , Glucose Level 115H, Uric Acid 4.2, Calcium Level 8.3L, Phosphorus Level 5.8H, Magnesium Level 2.1, Total Bilirubin 0.3, Aspartate Amino Transf (AST/SGOT) 16, Alanine Aminotransferase ( ALT/SGPT) 10, Alkaline Phosphatase 74, Total Protein 5.5L, Albumin 2.7L, Globulin 2.8, Albumin/Globulin Ratio 0.9L Height (Feet): 5 Height (Inches): 1.00 Weight (Pounds): 200 General Appearance: no apparent distress Objective other PE not changed BERTRAM CASTAÑEDA Jan 24, 2017 12:51
[2017-01-24 12:59] VITALS: BP 152/76
[2017-01-24] MEDS ORDERED: NS 275ml ONE (14:12)
[2017-01-24] MEDS ORDERED: Tubing IV Blood Pump IV ONE (14:12)
[2017-01-24 16:00] VITALS: BP 172/69
[2017-01-24 20:00] VITALS: BP 172/69
--- NOTE | 2017-01-24 21:42 | Pulmonology Progress Note ---
Assessment/Plan Problems: (1) Respiratory failure with hypoxia (2) Acute on chronic renal failure (3) Diabetes mellitus (4) Osteomyelitis of ankle or foot, right, acute Assessment/Plan improving HD in am again check cxr abx as per Id sliding scale stable for med/surg Subjective ROS Limited/Unobtainable: Yes Respiratory: Reports: dyspnea at rest, productive cough, shortness of breath Neurologic: Reports: confusion, weakness Allergies: Coded Allergies: MORPHINE (Verified Adverse Reaction, Severe, PARADOXICAL REACTION, 10/08/12 ) Objective Last 24 Hour Vital Signs Date Time Temp Pulse Resp B/P Pulse Ox O2 Delivery O2 Flow Rate FiO2 01/24/17 20:00 98.0 83 20 172/69 95 Non-Rebreather 15.0 01/24/17 19:28 82 22 Non-Rebreather 15.0 100 01/24/17 19:28 Non-Rebreather 15.0 100 01/24/17 19:28 97 Non-Rebreather 15.0 100 01/24/17 17:26 83 152/76 01/24/17 16:00 97.2 85 22 172/69 93 Non-Rebreather 15.0 01/24/17 13:20 Non-Rebreather 15.0 100 01/24/17 12:59 97.3 83 19 152/76 99 Nasal Cannula 15.0 01/24/17 11:55 73 15 Non-Rebreather 15.0 100 01/24/17 11:55 93 Non-Rebreather 15.0 100 01/24/17 08:58 97.0 80 21 158/89 94 Nasal Cannula 15.0 01/24/17 08:35 77 144/64 01/24/17 04:00 96.8 77 18 144/64 97 Non-Rebreather 15.0 01/24/17 00:00 97.9 73 18 139/77 100 Non-Rebreather 01/23/17 23:03 98.2 Intake and Output 01/23/17 01/24/17 19:00 07:00 Intake Total 330 ml 535 ml Output Total 2550 ml 80 ml Balance -2220 ml 455 ml Intake Oral 120 ml IV Total 330 ml 415 ml Output Urine Total 250 ml 80 ml Hemodialysis UF 2300 ml # Bowel Movements 1 General Appearance: no acute distress HEENT: normocephalic, atraumatic, PERRL Respiratory/Chest: chest wall non-tender, decreased breath sounds, accessory muscle use, rhonchi Breasts: no masses Cardiovascular: normal peripheral pulses, normal rate, regular rhythm, no JVD Abdomen: normal bowel sounds, soft, non tender, no organomegaly Genitourinary: normal external genitalia Extremities: no cyanosis Skin: rash, lesions 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: 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 grossly normal, responsive, disoriented Laboratory Tests 01/24/17 04:55: White Blood Count 13.2H, Red Blood Count 2.88L, Hemoglobin 8.4L, Hematocrit 25.7L, Mean Corpuscular Volume 89, Mean Corpuscular Hemoglobin 29.4, Mean Corpuscular Hemoglobin Concent 32.9, Red Cell Distribution Width 14.1, Platelet Count 115L, Mean Platelet Volume 5.8L, Neutrophils (%) (Auto) 82.6H, Lymphocytes (%) (Auto) 7.4L, Monocytes (%) (Auto) 6.5, Eosinophils (%) (Auto) 2.7, Basophils (%) (Auto) 0.8, Sodium Level 145, Potassium Level 4.4, Chloride Level 100, Carbon Dioxide Level 31H, Anion Gap 14, Blood Urea Nitrogen 44#H, Creatinine 5.1H, Estimat Glomerular Filtration Rate , Glucose Level 115H, Uric Acid 4.2, Calcium Level 8.3L, Phosphorus Level 5.8H, Magnesium Level 2.1, Total Bilirubin 0.3, Aspartate Amino Transf (AST/SGOT) 16, Alanine Aminotransferase ( ALT/SGPT) 10, Alkaline Phosphatase 74, Total Protein 5.5L, Albumin 2.7L, Globulin 2.8, Albumin/Globulin Ratio 0.9L Current Medications Medications (Trade) Dose Ordered Sig/Rina Route PRN Reason Start Time Stop Time Status Last Admin Dose Admin Acetaminophen (Tylenol) 650 mg Q6H PRN ORAL Mild Pain/Temp > 100.5 01/21/17 19:00 02/20/17 18:59 Acetaminophen/ Hydrocodone Bitart ([place] 5/325) 1 tab Q4H PRN ORAL Moderate Pain (Pain Scale 4-6) 01/21/17 19:00 01/28/17 18:59 01/23/17 22:04 Albuterol/ Ipratropium (DuoNeb 0.5-3(2.5)mg/3ml) 3 ml Q4H PRN HHN Shortness of Breath 01/20/17 18:30 01/25/17 18:29 Amlodipine Besylate (Norvasc) 2.5 mg BID ORAL 01/23/17 18:00 02/22/17 17:59 01/24/17 17:26 Aspirin (Ecotrin) 81 mg DAILY ORAL 01/21/17 09:00 02/20/17 08:59 01/24/17 08:35 Cefepime HCl 500 mg/Dextrose 55 ml @ 110 mls/hr Q24H IVPB 01/20/17 22:00 01/26/17 21:59 01/23/17 22:04 Clopidogrel Bisulfate (Plavix) 75 mg DAILY ORAL 01/21/17 09:00 02/20/17 08:59 01/24/17 08:35 Dextrose (Dextrose 50%) STAT PRN IV Hypoglycemia 01/21/17 02:30 02/20/17 02:29 Docusate Sodium (Colace) 100 mg TID ORAL 01/21/17 13:00 02/20/17 12:59 01/24/17 17:26 Heparin Sodium (Porcine) (Heparin 5000 units/ml) 5,000 units EVERY 12 HOURS SUBQ 01/20/17 21:00 02/19/17 20:59 01/22/17 21:52 Insulin Aspart (NovoLOG) BEFORE MEALS AND HS SUBQ 01/20/17 21:00 02/19/17 20:59 01/24/17 20:31 Lorazepam (Ativan 2mg/ml 1ml) 1 mg Q4H PRN IV For Anxiety 01/20/17 17:30 01/27/17 17:29 01/20/17 17:04 Nitroglycerin (Ntg) 0.4 mg Q5M X 3 DOSES PRN SL Prn Chest Pain 01/20/17 16:45 02/19/17 16:44 Ondansetron HCl (Zofran) 4 mg Q6H PRN IVP Nausea & Vomiting 01/20/17 20:30 02/19/17 20:29 Polyethylene Glycol (Miralax) 17 gm DAILYPRN PRN ORAL Constipation 01/21/17 02:30 02/20/17 02:29 01/24/17 08:35 Sevelamer Carbonate (Renvela) 2,400 mg THREE TIMES A DAY ORAL 01/23/17 13:00 02/22/17 12:59 01/24/17 17:26 Sodium Chloride (Sodium Chloride 1000ml bag) 1,000 ml @ 30 mls/hr Q24H IVLG 01/20/17 17:00 02/19/17 16:59 01/24/17 17:26 Temazepam (Restoril) 15 mg HSPRN PRN ORAL Insomnia 01/21/17 02:30 01/28/17 02:29 01/23/17 22:04 SHYAM NAVA Jan 24, 2017 21:42
[2017-01-24] MEDS: Cefepime HCl 500 MG in D5W 55 ML IVPB SCH (21:51)
[2017-01-25] VITALS (7 sets, daily range): BP systolic 136–183; BP diastolic 60–90
[2017-01-25] MEDS: NovoLOG Insulin Flexpen SUBQ SCH ×4 (05:59→20:42)
[2017-01-25 07:26] LABS: MEAN CORPUSCULAR HEMOGLOBIN 29.8 PG (27.0-31.0); MEAN CORPUSCULAR HGB CONC 33.9 G/DL (32.0-36.0); MEAN CORPUSCULAR VOLUME 88 FL (80-99); MEAN PLATELET VOLUME 6.3 FL (6.5-10.1); PLATELET COUNT 118 K/UL (150-450); RED BLOOD COUNT 3.21 M/UL (4.20-5.40); RED CELL DISTRIBUTION WIDTH 13.9 % (11.6-14.8); WHITE BLOOD COUNT 15.2 K/UL (4.8-10.8)
[2017-01-25 08:00] LABS: ALANINE AMINOTRANSFERASE 10 U/L (3-33); ALBUMIN/GLOBULIN RATIO 0.9 (1.0-2.7); ANION GAP 18 (5-15); ASPARTATE AMINO TRANSFERASE 18 U/L (5-40); CALCIUM 8.4 mg/dL (8.6-10.2); CARBON DIOXIDE 26 mEQ/L (20-30); CHLORIDE 100 mEQ/L (98-107); CREATININE 6.3 mg/dL (0.5-0.9); CRP QUANT 8.2 mg/dL (< 0.5); HEMOLYSIS 21; MAGNESIUM 2.3 mg/dL (1.7-2.5); PHOSPHORUS 7.5 mg/dL (2.5-4.8); SODIUM 144 mEQ/L (135-145); TOTAL PROTEIN 5.8 g/dL (6.6-8.7); URIC ACID 5.7 mg/dL (3.0-7.5)
[2017-01-25 09:53] LABS: BAND NEUTROPHILS % (MANUAL) 0 % (0-8); BASOPHILS % (MANUAL) 0 % (0-2); EOSINOPHILS % (MANUAL) 1 % (0-3); HYPOCHROMASIA 1+; LYMPHOCYTES % (MANUAL) 7 % (20-45); NEUTROPHILS % (MANUAL) 89 % (45-75); PLATELET ESTIMATE DECREASED; PLATELET MORPHOLOGY NORMAL; TOTAL CELLS COUNTED 100
[2017-01-25] MEDS: Aspirin EC 81mg tab ORAL SCH (10:05)
[2017-01-25] MEDS: Docusate 100mg tablet ORAL SCH ×3 (10:05→17:48)
[2017-01-25] MEDS: Heparin 5000 units/ml inj SUBQ SCH ×2 (10:13→20:33)
--- NOTE | 2017-01-25 10:17 | Infectious Diseases Prog Note ---
Assessment/Plan Assessment/Plan ASSESSMENT: 76 y/o female with: // Probable UTI - UCx(-) // Hypoxia, possible HCAP - now on NC - CXR 01/21: Patchy airspace disease. Findings a due to asymmetric pulmonary edema and/or pneumonia. No change. // h/o CoNS bacteremia 11/05 ( 01/09 ) ?real ( PICC tip+ ) vs contaminant r/o recurrence/persistence - surveillance BCx NGTD // h/o right ankle cellulitis / osteomyelitis / hardware infection SP incomplete Rx ( recommended to complete 6 weeks IV daptomycin, cefepime ( end ), but daughter apparently declined at last discharge per documentation ) - SP hardware removal 12/15 - no culture sent - 3P bone scan: 3 phase increased activity in region of distal aspect of right fibula compatible with hardware loosening and/or osteomyelitis - XR: surgical hardware seen reducing old healed distal fibular and medial malleolar fractures. No acute fractures. No dislocations. Bones are demineralized. - elevated ESR, CRP - h/o right ankle ORIF // Probable sepsis // Leukocytosis - persistent, mild, Cx(-) // Hypothermia - resolved // ARF on CKD --> IHD per renal // Dementia // DM2 - HbA1c 6.1% // h/o CAD - trop(-) x1 // NH resident // VRE colonized // No ABX allergies // Full Code PLAN: - continue empiric IV vancomycin, cefepime d# 7 / 7-10 - f/u final cultures - monitor CBC, temperatures - monitor BMP - monitor CXR - respiratory support prn Subjective Allergies: Coded Allergies: MORPHINE (Verified Adverse Reaction, Severe, PARADOXICAL REACTION, 10/08/12 ) Subjective remains afebrile. persistent leukocytosis Cx(-) Objective Vital Signs Last 24 Hour Vital Signs Date Time Temp Pulse Resp B/P Pulse Ox O2 Delivery O2 Flow Rate FiO2 01/25/17 10:05 80 170/90 01/25/17 08:27 96.8 80 20 170/90 96 Nasal Cannula 15.0 95 01/25/17 07:51 Non-Rebreather 15.0 100 01/25/17 07:50 96 Non-Rebreather 15.0 100 01/25/17 07:48 80 22 Non-Rebreather 15.0 100 01/25/17 04:00 97.0 84 20 150/73 93 Non-Rebreather 15.0 01/25/17 00:00 97.6 86 21 150/73 93 Non-Rebreather 15.0 01/24/17 20:00 98.0 83 20 172/69 95 Non-Rebreather 15.0 01/24/17 19:28 82 22 Non-Rebreather 15.0 100 01/24/17 19:28 Non-Rebreather 15.0 100 01/24/17 19:28 97 Non-Rebreather 15.0 100 01/24/17 17:26 83 152/76 01/24/17 16:00 97.2 85 22 172/69 93 Non-Rebreather 15.0 01/24/17 13:20 Non-Rebreather 15.0 100 01/24/17 12:59 97.3 83 19 152/76 99 Nasal Cannula 15.0 01/24/17 11:55 73 15 Non-Rebreather 15.0 100 01/24/17 11:55 93 Non-Rebreather 15.0 100 Height (Feet): 5 Height (Inches): 1.00 Weight (Pounds): 200 General Appearance: no acute distress Respiratory/Chest: no respiratory distress Cardiovascular: normal rate, regular rhythm Abdomen: normal bowel sounds, soft, non tender, non distended Laboratory Tests Test 01/25/17 05:50 White Blood Count 15.2 K/UL (4.8-10.8) H Red Blood Count 3.21 M/UL (4.20-5.40) L Hemoglobin 9.6 G/DL (12.0-16.0) L Hematocrit 28.2 % (37.0-47.0) L Mean Corpuscular Volume 88 FL (80-99) Mean Corpuscular Hemoglobin 29.8 PG (27.0-31.0) Mean Corpuscular Hemoglobin Concent 33.9 G/DL (32.0-36.0) Red Cell Distribution Width 13.9 % (11.6-14.8) Platelet Count 118 K/UL (150-450) L Mean Platelet Volume 6.3 FL (6.5-10.1) L Neutrophils (%) (Auto) % (45.0-75.0) Lymphocytes (%) (Auto) % (20.0-45.0) Monocytes (%) (Auto) % (1.0-10.0) Eosinophils (%) (Auto) % (0.0-3.0) Basophils (%) (Auto) % (0.0-2.0) Differential Total Cells Counted 100 Neutrophils % (Manual) 89 % (45-75) H Lymphocytes % (Manual) 7 % (20-45) L Monocytes % (Manual) 3 % (1-10) Eosinophils % (Manual) 1 % (0-3) Basophils % (Manual) 0 % (0-2) Band Neutrophils 0 % (0-8) Platelet Estimate Decreased L Platelet Morphology Normal Hypochromasia 1+ Sodium Level 144 mEQ/L (135-145) Potassium Level 5.0 mEQ/L (3.4-4.9) H Chloride Level 100 mEQ/L (98-107) Carbon Dioxide Level 26 mEQ/L (20-30) Anion Gap 18 (5-15) H Blood Urea Nitrogen 62 mg/dL (7-23) H Creatinine 6.3 mg/dL (0.5-0.9) H Estimat Glomerular Filtration Rate mL/min (>60) Glucose Level 103 mg/dL (74-106) Uric Acid 5.7 mg/dL (3.0-7.5) Calcium Level 8.4 mg/dL (8.6-10.2) L Phosphorus Level 7.5 mg/dL (2.5-4.8) H Magnesium Level 2.3 mg/dL (1.7-2.5) Total Bilirubin 0.3 mg/dL (0.0-1.2) Aspartate Amino Transf (AST/SGOT) 18 U/L (5-40) Alanine Aminotransferase (ALT/SGPT) 10 U/L (3-33) Alkaline Phosphatase 81 U/L (35-104) C-Reactive Protein, Quantitative 8.2 mg/dL (< 0.5) H Pro-B-Type Natriuretic Peptide 96761 pg/mL (0-450) H Total Protein 5.8 g/dL (6.6-8.7) L Albumin 2.8 g/dL (3.5-5.2) L Globulin 3.0 g/dL Albumin/Globulin Ratio 0.9 (1.0-2.7) L Random Vancomycin Level 19.6 ug/mL Current Medications Medications (Trade) Dose Ordered Sig/Rina Route PRN Reason Start Time Stop Time Status Last Admin Dose Admin Acetaminophen (Tylenol) 650 mg Q6H PRN ORAL Mild Pain/Temp > 100.5 01/21/17 19:00 02/20/17 18:59 Acetaminophen/ Hydrocodone Bitart ([place] 5/325) 1 tab Q4H PRN ORAL Moderate Pain (Pain Scale 4-6) 01/21/17 19:00 01/28/17 18:59 01/23/17 22:04 Albuterol/ Ipratropium (DuoNeb 0.5-3(2.5)mg/3ml) 3 ml Q4H PRN HHN Shortness of Breath 01/20/17 18:30 01/25/17 18:29 Amlodipine Besylate (Norvasc) 2.5 mg BID ORAL 01/23/17 18:00 02/22/17 17:59 01/25/17 10:05 Aspirin (Ecotrin) 81 mg DAILY ORAL 01/21/17 09:00 02/20/17 08:59 01/25/17 10:05 Cefepime HCl 500 mg/Dextrose 55 ml @ 110 mls/hr Q24H IVPB 01/20/17 22:00 01/26/17 21:59 01/24/17 21:51 Clopidogrel Bisulfate (Plavix) 75 mg DAILY ORAL 01/21/17 09:00 02/20/17 08:59 01/25/17 10:05 Dextrose (Dextrose 50%) STAT PRN IV Hypoglycemia 01/21/17 02:30 02/20/17 02:29 Docusate Sodium (Colace) 100 mg TID ORAL 01/21/17 13:00 02/20/17 12:59 01/25/17 10:05 Heparin Sodium (Porcine) (Heparin 5000 units/ml) 5,000 units EVERY 12 HOURS SUBQ 01/20/17 21:00 02/19/17 20:59 01/22/17 21:52 Insulin Aspart (NovoLOG) BEFORE MEALS AND HS SUBQ 01/20/17 21:00 02/19/17 20:59 01/25/17 05:59 Lorazepam (Ativan 2mg/ml 1ml) 1 mg Q4H PRN IV For Anxiety 01/20/17 17:30 3/28/17 17:29 01/20/17 17:04 Nitroglycerin (Ntg) 0.4 mg Q5M X 3 DOSES PRN SL Prn Chest Pain 01/20/17 16:45 02/19/17 16:44 Ondansetron HCl (Zofran) 4 mg Q6H PRN IVP Nausea & Vomiting 01/20/17 20:30 02/19/17 20:29 Polyethylene Glycol (Miralax) 17 gm DAILYPRN PRN ORAL Constipation 01/21/17 02:30 02/20/17 02:29 01/24/17 08:35 Sevelamer Carbonate (Renvela) 2,400 mg THREE TIMES A DAY ORAL 01/23/17 13:00 02/22/17 12:59 01/25/17 10:05 Sodium Chloride (Sodium Chloride 1000ml bag) 1,000 ml @ 30 mls/hr Q24H IVLG 01/20/17 17:00 02/19/17 16:59 01/24/17 17:26 Temazepam (Restoril) 15 mg HSPRN PRN ORAL Insomnia 01/21/17 02:30 01/28/17 02:29 01/23/17 22:04 WENDY CHAPMAN 26, 2017 10:17
--- NOTE | 2017-01-25 11:26 | General Progress Note ---
Assessment/Plan Status: unchanged Assessment/Plan Had long talk with daughter Gali 01/19 - Acute renal failure and hyperKalemia - Renal failure, likely diabetic nephropathy / HTN - Sepsis , Pneumonia, Respiratory failure and Hypoxia other - h/o Cellulitis in diabetic foot right LE - Decubitus ulcer - Dementia - Diabetes mellitus - Nonpressure ulcer to level of fascia right lateral ankle - S/P ORIF right ankle Plan: HD 01/26 Monitor renal parameters and Vanco level- Vanco level lower ARTUR Kidney done last admission- unremarkable Adjust BP meds- increase Norvasc- Tunneled catheter placement Avoid Nephrotoxics- DC mind altering meds- discussed with CM Per orders Subjective ROS Limited/Unobtainable: No Constitutional: Reports: malaise, weakness Respiratory: Reports: shortness of breath Allergies: Coded Allergies: MORPHINE (Verified Adverse Reaction, Severe, PARADOXICAL REACTION, 10/08/12 ) Objective Last 24 Hour Vital Signs Date Time Temp Pulse Resp B/P Pulse Ox O2 Delivery O2 Flow Rate FiO2 01/25/17 10:05 80 170/90 01/25/17 08:27 96.8 80 20 170/90 96 Nasal Cannula 15.0 95 01/25/17 07:51 Non-Rebreather 15.0 100 01/25/17 07:50 96 Non-Rebreather 15.0 100 01/25/17 07:48 80 22 Non-Rebreather 15.0 100 01/25/17 04:00 97.0 84 20 150/73 93 Non-Rebreather 15.0 01/25/17 00:00 97.6 86 21 150/73 93 Non-Rebreather 15.0 01/24/17 20:00 98.0 83 20 172/69 95 Non-Rebreather 15.0 01/24/17 19:28 82 22 Non-Rebreather 15.0 100 01/24/17 19:28 Non-Rebreather 15.0 100 01/24/17 19:28 97 Non-Rebreather 15.0 100 01/24/17 17:26 83 152/76 01/24/17 16:00 97.2 85 22 172/69 93 Non-Rebreather 15.0 01/24/17 13:20 Non-Rebreather 15.0 100 01/24/17 12:59 97.3 83 19 152/76 99 Nasal Cannula 15.0 01/24/17 11:55 73 15 Non-Rebreather 15.0 100 01/24/17 11:55 93 Non-Rebreather 15.0 100 Intake and Output 01/24/17 01/25/17 19:00 07:00 Intake Total 360 ml 725 ml Output Total 140 ml 650 ml Balance 220 ml 75 ml Intake Oral 120 ml 480 ml IV Total 240 ml 145 ml Other 100 ml Output Urine Total 140 ml 650 ml # Voids 1 # Bowel Movements 1 1 Laboratory Tests 01/25/17 05:50: White Blood Count 15.2H, Red Blood Count 3.21L, Hemoglobin 9.6L, Hematocrit 28.2L, Mean Corpuscular Volume 88, Mean Corpuscular Hemoglobin 29.8, Mean Corpuscular Hemoglobin Concent 33.9, Red Cell Distribution Width 13.9, Platelet Count 118L, Mean Platelet Volume 6.3L, Neutrophils (%) (Auto) , Lymphocytes (%) (Auto) , Monocytes (%) (Auto) , Eosinophils (%) (Auto) , Basophils (%) (Auto) , Differential Total Cells Counted 100, Neutrophils % (Manual) 89H, Lymphocytes % (Manual) 7L, Monocytes % (Manual) 3, Eosinophils % (Manual) 1, Basophils % ( Manual) 0, Band Neutrophils 0, Platelet Estimate DecreasedL, Platelet Morphology Normal, Hypochromasia 1+, Sodium Level 144, Potassium Level 5.0H, Chloride Level 100, Carbon Dioxide Level 26, Anion Gap 18H, Blood Urea Nitrogen 62H, Creatinine 6.3H, Estimat Glomerular Filtration Rate , Glucose Level 103, Uric Acid 5.7, Calcium Level 8.4L, Phosphorus Level 7.5H, Magnesium Level 2.3, Total Bilirubin 0.3, Aspartate Amino Transf (AST/SGOT) 18, Alanine Aminotransferase (ALT/SGPT) 10, Alkaline Phosphatase 81, C-Reactive Protein, Quantitative 8.2H, Pro-B-Type Natriuretic Peptide [id number], Total Protein 5.8L, Albumin 2.8L, Globulin 3.0, Albumin/Globulin Ratio 0.9L, Random Vancomycin Level 19.6 Height (Feet): 5 Height (Inches): 1.00 Weight (Pounds): 200 General Appearance: no apparent distress, lethargic Cardiovascular: tachycardia Respiratory/Chest: decreased breath sounds Abdomen: soft Objective other PE not changed BERTRAM CASTAÑEDA Jan 25, 2017 11:26
[2017-01-25] MEDS ORDERED: Metolazone 5mg tab ORAL ONE (11:30)
[2017-01-25] MEDS: Cefepime HCl 500 MG in D5W 55 ML IVPB SCH (22:03)
--- NOTE | 2017-01-25 22:55 | Pulmonology Progress Note ---
Assessment/Plan Problems: (1) Respiratory failure with hypoxia (2) Acute on chronic renal failure (3) Diabetes mellitus (4) Osteomyelitis of ankle or foot, right, acute Assessment/Plan improving HD in am again check cxr abx as per Id sliding scale stable for med/surg Subjective ROS Limited/Unobtainable: Yes Neurologic: Reports: confusion, syncope, weakness Allergies: Coded Allergies: MORPHINE (Verified Adverse Reaction, Severe, PARADOXICAL REACTION, 10/08/12 ) Objective Last 24 Hour Vital Signs Date Time Temp Pulse Resp B/P Pulse Ox O2 Delivery O2 Flow Rate FiO2 01/25/17 22:14 82 20 145/79 97 Non-Rebreather 15.0 01/25/17 20:27 85 20 Non-Rebreather 15.0 100 01/25/17 20:27 96 Non-Rebreather 15.0 100 01/25/17 20:27 Non-Rebreather 15.0 100 01/25/17 20:00 97.5 80 20 183/83 94 Nasal Cannula 15.0 01/25/17 17:57 81 136/60 01/25/17 16:00 97.0 81 19 136/60 95 Room Air 01/25/17 12:36 96.6 82 20 136/64 94 Ambu-Bag 15.0 01/25/17 10:05 80 170/90 01/25/17 08:27 96.8 80 20 170/90 96 Nasal Cannula 15.0 95 01/25/17 07:51 Non-Rebreather 15.0 100 01/25/17 07:50 96 Non-Rebreather 15.0 100 01/25/17 07:48 80 22 Non-Rebreather 15.0 100 01/25/17 04:00 97.0 84 20 150/73 93 Non-Rebreather 15.0 01/25/17 00:00 97.6 86 21 150/73 93 Non-Rebreather 15.0 Intake and Output 01/24/17 01/25/17 19:00 07:00 Intake Total 360 ml 725 ml Output Total 140 ml 650 ml Balance 220 ml 75 ml Intake Oral 120 ml 480 ml IV Total 240 ml 145 ml Other 100 ml Output Urine Total 140 ml 650 ml # Voids 1 # Bowel Movements 1 1 General Appearance: no acute distress HEENT: normocephalic, atraumatic, PERRL Respiratory/Chest: chest wall non-tender, decreased breath sounds, accessory muscle use Breasts: no masses Cardiovascular: normal peripheral pulses, normal rate, regular rhythm, no JVD Abdomen: normal bowel sounds, soft, non tender, no organomegaly Genitourinary: normal external genitalia Extremities: no cyanosis Skin: no rash, no lesions 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: responsive, disoriented Laboratory Tests 01/25/17 05:45: Hepatitis B Surface Antigen [Pending], Hepatitis B Surface Antibody, Quant [ Pending], Hepatitis C Antibody [Pending] 01/25/17 05:50: White Blood Count 15.2H, Red Blood Count 3.21L, Hemoglobin 9.6L, Hematocrit 28.2L, Mean Corpuscular Volume 88, Mean Corpuscular Hemoglobin 29.8, Mean Corpuscular Hemoglobin Concent 33.9, Red Cell Distribution Width 13.9, Platelet Count 118L, Mean Platelet Volume 6.3L, Neutrophils (%) (Auto) , Lymphocytes (%) (Auto) , Monocytes (%) (Auto) , Eosinophils (%) (Auto) , Basophils (%) (Auto) , Differential Total Cells Counted 100, Neutrophils % (Manual) 89H, Lymphocytes % (Manual) 7L, Monocytes % (Manual) 3, Eosinophils % (Manual) 1, Basophils % ( Manual) 0, Band Neutrophils 0, Platelet Estimate DecreasedL, Platelet Morphology Normal, Hypochromasia 1+, Sodium Level 144, Potassium Level 5.0H, Chloride Level 100, Carbon Dioxide Level 26, Anion Gap 18H, Blood Urea Nitrogen 62H, Creatinine 6.3H, Estimat Glomerular Filtration Rate , Glucose Level 103, Uric Acid 5.7, Calcium Level 8.4L, Phosphorus Level 7.5H, Magnesium Level 2.3, Total Bilirubin 0.3, Aspartate Amino Transf (AST/SGOT) 18, Alanine Aminotransferase (ALT/SGPT) 10, Alkaline Phosphatase 81, C-Reactive Protein, Quantitative 8.2H, Pro-B-Type Natriuretic Peptide [id number], Total Protein 5.8L, Albumin 2.8L, Globulin 3.0, Albumin/Globulin Ratio 0.9L, Random Vancomycin Level 19.6 Current Medications Medications (Trade) Dose Ordered Sig/Rina Route PRN Reason Start Time Stop Time Status Last Admin Dose Admin Acetaminophen (Tylenol) 650 mg Q6H PRN ORAL Mild Pain/Temp > 100.5 01/21/17 19:00 02/20/17 18:59 Acetaminophen/ Hydrocodone Bitart ([place] 5/325) 1 tab Q4H PRN ORAL Moderate Pain (Pain Scale 4-6) 01/21/17 19:00 01/28/17 18:59 01/23/17 22:04 Amlodipine Besylate (Norvasc) 5 mg BID ORAL 01/25/17 18:00 02/24/17 17:59 01/25/17 17:57 Aspirin (Ecotrin) 81 mg DAILY ORAL 01/21/17 09:00 02/20/17 08:59 01/25/17 10:05 Cefepime HCl/ Dextrose (Maxipime/D5W) 55 ml @ 110 mls/hr Q24H IVPB 01/20/17 22:00 01/26/17 21:59 01/25/17 22:03 Clopidogrel Bisulfate (Plavix) 75 mg DAILY ORAL 01/21/17 09:00 02/20/17 08:59 01/25/17 10:05 Dextrose (Dextrose 50%) STAT PRN IV Hypoglycemia 01/21/17 02:30 02/20/17 02:29 Docusate Sodium (Colace) 100 mg TID ORAL 01/21/17 13:00 02/20/17 12:59 01/25/17 17:48 Heparin Sodium (Porcine) (Heparin 5000 units/ml) 5,000 units EVERY 12 HOURS SUBQ 01/20/17 21:00 02/19/17 20:59 01/22/17 21:52 Insulin Aspart (NovoLOG) BEFORE MEALS AND HS SUBQ 01/20/17 21:00 02/19/17 20:59 01/25/17 20:42 Lorazepam (Ativan 2mg/ml 1ml) 1 mg Q4H PRN IV For Anxiety 01/20/17 17:30 01/27/17 17:29 01/20/17 17:04 Nitroglycerin (Ntg) 0.4 mg Q5M X 3 DOSES PRN SL Prn Chest Pain 01/20/17 16:45 02/19/17 16:44 Ondansetron HCl (Zofran) 4 mg Q6H PRN IVP Nausea & Vomiting 01/20/17 20:30 02/19/17 20:29 Pantoprazole (Protonix) 40 mg EVERY 12 HOURS ORAL 01/25/17 21:00 02/24/17 20:59 01/25/17 20:58 Polyethylene Glycol (Miralax) 17 gm DAILYPRN PRN ORAL Constipation 01/21/17 02:30 02/20/17 02:29 01/24/17 08:35 Sevelamer Carbonate (Renvela) 2,400 mg THREE TIMES A DAY ORAL 01/23/17 13:00 02/22/17 12:59 01/25/17 17:48 Temazepam (Restoril) 15 mg HSPRN PRN ORAL Insomnia 01/21/17 02:30 01/28/17 02:29 01/23/17 22:04 SHYAM NAVA Jan 25, 2017 22:55
[2017-01-26] VITALS (7 sets, daily range): BP systolic 108–164; BP diastolic 45–84
[2017-01-26] MEDS: NovoLOG Insulin Flexpen SUBQ SCH ×4 (06:27→21:31)
[2017-01-26 07:28] LABS: MEAN CORPUSCULAR HEMOGLOBIN 29.5 PG (27.0-31.0); MEAN CORPUSCULAR HGB CONC 33.3 G/DL (32.0-36.0); MEAN CORPUSCULAR VOLUME 88 FL (80-99); MEAN PLATELET VOLUME 6.3 FL (6.5-10.1); PLATELET COUNT 111 K/UL (150-450); RED BLOOD COUNT 3.19 M/UL (4.20-5.40); WHITE BLOOD COUNT 16.5 K/UL (4.8-10.8)
[2017-01-26 08:06] LABS: PHOSPHORUS 8.3 mg/dL (2.5-4.8)
[2017-01-26 08:20] LABS: ALANINE AMINOTRANSFERASE 10 U/L (3-33); ALBUMIN/GLOBULIN RATIO 0.9 (1.0-2.7); ANION GAP 21 (5-15); ASPARTATE AMINO TRANSFERASE 16 U/L (5-40); CALCIUM 8.4 mg/dL (8.6-10.2); CARBON DIOXIDE 24 mEQ/L (20-30); CHLORIDE 100 mEQ/L (98-107); CREATININE 7.5 mg/dL (0.5-0.9); HEMOLYSIS 11; POTASSIUM 5.3 mEQ/L (3.4-4.9); SODIUM 145 mEQ/L (135-145); TOTAL PROTEIN 5.7 g/dL (6.6-8.7)
[2017-01-26] MEDS: Heparin 5000 units/ml inj SUBQ SCH ×2 (09:00→21:25)
--- NOTE | 2017-01-26 09:21 | General Progress Note ---
Assessment/Plan Status: unchanged Status Narrative acute renal failure not resolving Assessment/Plan ( Had long talk with daughter Gali 01/19) - Acute renal failure and hyperKalemia - Renal failure, likely diabetic nephropathy / HTN - Sepsis , Pneumonia, Respiratory failure and Hypoxia other - h/o Cellulitis in diabetic foot right LE - Decubitus ulcer - Dementia - Diabetes mellitus - Nonpressure ulcer to level of fascia right lateral ankle - S/P ORIF right ankle Plan: HD 01/26 Monitor renal parameters and Vanco level- Vanco level lower ARTUR Kidney done last admission- unremarkable Adjust BP meds- increase Norvasc- Tunneled catheter placement Avoid Nephrotoxics- DC mind altering meds- discussed with CM Per orders Subjective ROS Limited/Unobtainable: No Constitutional: Reports: malaise Allergies: Coded Allergies: MORPHINE (Verified Adverse Reaction, Severe, PARADOXICAL REACTION, 10/08/12 ) Objective Last 24 Hour Vital Signs Date Time Temp Pulse Resp B/P Pulse Ox O2 Delivery O2 Flow Rate FiO2 01/26/17 08:58 97.9 86 20 164/84 94 Venturi Mask 01/26/17 07:00 94 Non-Rebreather 15.0 01/26/17 04:00 97.9 80 20 148/57 91 01/26/17 00:00 98.4 77 22 142/74 93 01/25/17 22:14 82 20 145/79 97 Non-Rebreather 15.0 01/25/17 20:27 85 20 Non-Rebreather 15.0 100 01/25/17 20:27 96 Non-Rebreather 15.0 100 01/25/17 20:27 Non-Rebreather 15.0 100 01/25/17 20:00 97.5 80 20 183/83 94 Nasal Cannula 15.0 01/25/17 17:57 81 136/60 01/25/17 16:00 97.0 81 19 136/60 95 Room Air 01/25/17 12:36 96.6 82 20 136/64 94 Ambu-Bag 15.0 01/25/17 10:05 80 170/90 Intake and Output 01/25/17 01/26/17 19:00 07:00 Intake Total 240 ml Output Total 0 ml 200 ml Balance 0 ml 40 ml Intake Oral 240 ml Output Urine Total 0 ml 200 ml # Bowel Movements 5 Laboratory Tests 01/26/17 06:10: White Blood Count 16.5H, Red Blood Count 3.19L, Hemoglobin 9.4L, Hematocrit 28.2L, Mean Corpuscular Volume 88, Mean Corpuscular Hemoglobin 29.5, Mean Corpuscular Hemoglobin Concent 33.3, Red Cell Distribution Width 14.0, Platelet Count 111L, Mean Platelet Volume 6.3L, Neutrophils (%) (Auto) , Lymphocytes (%) (Auto) , Monocytes (%) (Auto) , Eosinophils (%) (Auto) , Basophils (%) (Auto) , Neutrophils % (Manual) [Pending], Lymphocytes % (Manual) [Pending], Platelet Estimate [Pending], Platelet Morphology [Pending], Sodium Level 145, Potassium Level 5.3H, Chloride Level 100, Carbon Dioxide Level 24, Anion Gap 21H, Blood Urea Nitrogen 81H, Creatinine 7.5H, Estimat Glomerular Filtration Rate , Glucose Level 128H, Uric Acid 7.0, Calcium Level 8.4L, Phosphorus Level 8.3H, Total Bilirubin 0.3, Aspartate Amino Transf (AST/SGOT) 16, Alanine Aminotransferase (ALT/SGPT) 10, Alkaline Phosphatase 81, Pro-B-Type Natriuretic Peptide 89162J, Total Protein 5.7L, Albumin 2.7L, Globulin 3.0, Albumin/ Globulin Ratio 0.9L Height (Feet): 5 Height (Inches): 1.00 Weight (Pounds): 200 General Appearance: no apparent distress Neck: stiff neck Cardiovascular: tachycardia Respiratory/Chest: decreased breath sounds Abdomen: soft Objective other PE not changed BERTRAM CASTAÑEDA Jan 26, 2017 09:21
--- NOTE | 2017-01-26 09:26 | Infectious Diseases Prog Note ---
Assessment/Plan Assessment/Plan ASSESSMENT: 76 y/o female with: // Probable UTI - UCx(-) // Hypoxia, possible HCAP - back on VM - CXR 01/24: Extensive bilateral interstitial and airspace opacities, unchanged // h/o CoNS bacteremia 11/05 ( 01/09 ) ?real ( PICC tip+ ) vs contaminant r/o recurrence/persistence - surveillance BCx(-) // h/o right ankle cellulitis / osteomyelitis / hardware infection SP incomplete Rx ( recommended to complete 6 weeks IV daptomycin, cefepime ( end ), but daughter apparently declined at last discharge per documentation ) - SP hardware removal 12/15 - no culture sent - 3P bone scan: 3 phase increased activity in region of distal aspect of right fibula compatible with hardware loosening and/or osteomyelitis - XR: surgical hardware seen reducing old healed distal fibular and medial malleolar fractures. No acute fractures. No dislocations. Bones are demineralized. - elevated ESR, CRP - h/o right ankle ORIF // Probable sepsis // Leukocytosis - persistent, mild, Cx(-) // Hypothermia - resolved // ARF on CKD --> IHD per renal // Dementia // DM2 - HbA1c 6.1% // h/o CAD - trop(-) x1 // NH resident // VRE colonized // No ABX allergies // Full Code PLAN: - continue empiric IV vancomycin, cefepime d# - f/u final cultures - monitor CBC, temperatures - monitor BMP - monitor CXR - respiratory support prn Subjective Allergies: Coded Allergies: MORPHINE (Verified Adverse Reaction, Severe, PARADOXICAL REACTION, 10/08/12 ) Subjective remains afebrile. persistent leukocytosis Cx(-) Objective Vital Signs Last 24 Hour Vital Signs Date Time Temp Pulse Resp B/P Pulse Ox O2 Delivery O2 Flow Rate FiO2 01/26/17 08:58 97.9 86 20 164/84 94 Venturi Mask 01/26/17 07:00 94 Non-Rebreather 15.0 01/26/17 04:00 97.9 80 20 148/57 91 01/26/17 00:00 98.4 77 22 142/74 93 01/25/17 22:14 82 20 145/79 97 Non-Rebreather 15.0 01/25/17 20:27 85 20 Non-Rebreather 15.0 100 01/25/17 20:27 96 Non-Rebreather 15.0 100 01/25/17 20:27 Non-Rebreather 15.0 100 01/25/17 20:00 97.5 80 20 183/83 94 Nasal Cannula 15.0 01/25/17 17:57 81 136/60 01/25/17 16:00 97.0 81 19 136/60 95 Room Air 01/25/17 12:36 96.6 82 20 136/64 94 Ambu-Bag 15.0 01/25/17 10:05 80 170/90 Height (Feet): 5 Height (Inches): 1.00 Weight (Pounds): 200 General Appearance: no acute distress Respiratory/Chest: no respiratory distress Cardiovascular: normal rate, regular rhythm Abdomen: normal bowel sounds, soft, non tender, non distended Laboratory Tests Test 01/26/17 06:10 White Blood Count 16.5 K/UL (4.8-10.8) H Red Blood Count 3.19 M/UL (4.20-5.40) L Hemoglobin 9.4 G/DL (12.0-16.0) L Hematocrit 28.2 % (37.0-47.0) L Mean Corpuscular Volume 88 FL (80-99) Mean Corpuscular Hemoglobin 29.5 PG (27.0-31.0) Mean Corpuscular Hemoglobin Concent 33.3 G/DL (32.0-36.0) Red Cell Distribution Width 14.0 % (11.6-14.8) Platelet Count 111 K/UL (150-450) L Mean Platelet Volume 6.3 FL (6.5-10.1) L Neutrophils (%) (Auto) % (45.0-75.0) Lymphocytes (%) (Auto) % (20.0-45.0) Monocytes (%) (Auto) % (1.0-10.0) Eosinophils (%) (Auto) % (0.0-3.0) Basophils (%) (Auto) % (0.0-2.0) Neutrophils % (Manual) Pending Lymphocytes % (Manual) Pending Platelet Estimate Pending Platelet Morphology Pending Sodium Level 145 mEQ/L (135-145) Potassium Level 5.3 mEQ/L (3.4-4.9) H Chloride Level 100 mEQ/L (98-107) Carbon Dioxide Level 24 mEQ/L (20-30) Anion Gap 21 (5-15) H Blood Urea Nitrogen 81 mg/dL (7-23) H Creatinine 7.5 mg/dL (0.5-0.9) H Estimat Glomerular Filtration Rate mL/min (>60) Glucose Level 128 mg/dL (74-106) H Uric Acid 7.0 mg/dL (3.0-7.5) Calcium Level 8.4 mg/dL (8.6-10.2) L Phosphorus Level 8.3 mg/dL (2.5-4.8) H Total Bilirubin 0.3 mg/dL (0.0-1.2) Aspartate Amino Transf (AST/SGOT) 16 U/L (5-40) Alanine Aminotransferase (ALT/SGPT) 10 U/L (3-33) Alkaline Phosphatase 81 U/L (35-104) Pro-B-Type Natriuretic Peptide 45884 pg/mL (0-450) H Total Protein 5.7 g/dL (6.6-8.7) L Albumin 2.7 g/dL (3.5-5.2) L Globulin 3.0 g/dL Albumin/Globulin Ratio 0.9 (1.0-2.7) L Current Medications Medications (Trade) Dose Ordered Sig/Rina Route PRN Reason Start Time Stop Time Status Last Admin Dose Admin Acetaminophen (Tylenol) 650 mg Q6H PRN ORAL Mild Pain/Temp > 100.5 01/21/17 19:00 02/20/17 18:59 Acetaminophen/ Hydrocodone Bitart ([place] 5/325) 1 tab Q4H PRN ORAL Moderate Pain (Pain Scale 4-6) 01/21/17 19:00 01/28/17 18:59 01/23/17 22:04 Aluminum Hydroxide (Amphojel) 1,920 mg Q6H ORAL 01/26/17 09:30 02/25/17 09:29 UNV Amlodipine Besylate (Norvasc) 5 mg BID ORAL 01/25/17 18:00 02/24/17 17:59 01/25/17 17:57 Aspirin (Ecotrin) 81 mg DAILY ORAL 01/21/17 09:00 02/20/17 08:59 01/25/17 10:05 Cefepime HCl/ Dextrose (Maxipime/D5W) 55 ml @ 110 mls/hr Q24H IVPB 01/20/17 22:00 01/26/17 21:59 01/25/17 22:03 Clopidogrel Bisulfate (Plavix) 75 mg DAILY ORAL 01/21/17 09:00 02/20/17 08:59 01/25/17 10:05 Dextrose (Dextrose 50%) STAT PRN IV Hypoglycemia 01/21/17 02:30 02/20/17 02:29 Docusate Sodium (Colace) 100 mg TID ORAL 01/21/17 13:00 02/20/17 12:59 01/25/17 17:48 Heparin Sodium (Porcine) (Heparin 5000 units/ml) 5,000 units EVERY 12 HOURS SUBQ 01/20/17 21:00 02/19/17 20:59 01/22/17 21:52 Insulin Aspart (NovoLOG) BEFORE MEALS AND HS SUBQ 01/20/17 21:00 02/19/17 20:59 01/26/17 06:27 Lorazepam (Ativan 2mg/ml 1ml) 1 mg Q4H PRN IV For Anxiety 01/20/17 17:30 01/27/17 17:29 01/20/17 17:04 Nitroglycerin (Ntg) 0.4 mg Q5M X 3 DOSES PRN SL Prn Chest Pain 01/20/17 16:45 02/19/17 16:44 Ondansetron HCl (Zofran) 4 mg Q6H PRN IVP Nausea & Vomiting 01/20/17 20:30 02/19/17 20:29 Pantoprazole (Protonix) 40 mg EVERY 12 HOURS ORAL 01/25/17 21:00 02/24/17 20:59 01/25/17 20:58 Polyethylene Glycol (Miralax) 17 gm DAILYPRN PRN ORAL Constipation 01/21/17 02:30 02/20/17 02:29 01/24/17 08:35 Sevelamer Carbonate (Renvela) 2,400 mg THREE TIMES A DAY ORAL 01/23/17 13:00 02/22/17 12:59 01/25/17 17:48 Temazepam (Restoril) 15 mg HSPRN PRN ORAL Insomnia 01/21/17 02:30 01/28/17 02:29 01/23/17 22:04 WENDY CHAPMAN Jan 26, 2017 09:26
[2017-01-26 11:14] LABS: EOSINOPHILS % (MANUAL) 2 % (0-3); LYMPHOCYTES % (MANUAL) 7 % (20-45); NEUTROPHILS % (MANUAL) 85 % (45-75); TOTAL CELLS COUNTED 100
[2017-01-26 11:15] LABS: BAND NEUTROPHILS % (MANUAL) 0 % (0-8); BASOPHILS % (MANUAL) 0 % (0-2); HYPOCHROMASIA 2+; PLATELET ESTIMATE DECREASED; PLATELET MORPHOLOGY NORMAL; SPHEROCYTES 1+
[2017-01-26] MEDS: Aluminum Hydroxide Gel Susp 15ml ORAL SCH ×2 (13:32→17:13)
[2017-01-26] MEDS: Docusate 100mg tablet ORAL SCH ×3 (13:32→17:14)
--- NOTE | 2017-01-26 13:33 | Diagnostic Imaging Report ---
Indication: DYSPNEA Technique: One view of the chest Comparison: 01/24/2017 Findings: Extensive bilateral interstitial and airspace opacities appear largely unchanged. There may be a small left pleural effusion. Right jugular temporary dialysis catheter is again demonstrated Impression: Unchanged, over 2 days, findings as above.
[2017-01-26] MEDS: Aspirin EC 81mg tab ORAL SCH (13:49)
--- NOTE | 2017-01-26 19:45 | Wound Care Consultation ---
Wound Assessment Wound Assessment : Wound Present on Admission: Yes New Wound: No Status Change of Wound: No Wound Location Body Site: abdomen Wound Type: other - open and dry scab wound Ewelina Test: Does not Ewelina Percent of Wound [place]/Red: 100 Wound Drainage Description: Serosanguineous Wound Drainage Amount: Scant Wound Drainage Odor: None/Absent Tissue Surrounding Wound: Erythemic Wound General Appearance: Reddened Wound Comment #1 Abdomen area Left thigh open and dry wound Recommendation -Turn and dry -Keep clean and dry -Assess and f/u accordingly for any changes KUN SON RN Jan 26, 2017 19:45
[2017-01-26] MEDS: Cefepime HCl 500 MG in D5W 55 ML IVPB SCH (21:32)
--- NOTE | 2017-01-26 23:38 | Pulmonology Progress Note ---
Assessment/Plan Problems: (1) Respiratory failure with hypoxia (2) Acute on chronic renal failure (3) Diabetes mellitus (4) Osteomyelitis of ankle or foot, right, acute Assessment/Plan improving HD in am again check cxr abx as per Id sliding scale stable for med/surg Subjective ROS Limited/Unobtainable: Yes Constitutional: Reports: anorexia, fatigue Neurologic: Reports: confusion, weakness Musculoskeletal: Reports: pain, stiffness, swelling Allergies: Coded Allergies: MORPHINE (Verified Adverse Reaction, Severe, PARADOXICAL REACTION, 10/08/12 ) Objective Last 24 Hour Vital Signs Date Time Temp Pulse Resp B/P Pulse Ox O2 Delivery O2 Flow Rate FiO2 01/26/17 20:00 97.7 84 20 160/71 95 01/26/17 19:00 98 Non-Rebreather 15.0 100 01/26/17 19:00 Non-Rebreather 15.0 100 01/26/17 19:00 78 18 Non-Rebreather 15.0 100 01/26/17 17:14 78 159/77 01/26/17 16:00 97.2 78 22 159/77 96 Non-Rebreather 15.0 01/26/17 12:13 Non-Rebreather 15.0 01/26/17 12:11 97.4 83 21 108/52 96 Non-Rebreather 15.0 01/26/17 09:00 Non-Rebreather 15.0 01/26/17 09:00 83 108/52 01/26/17 09:00 97.0 72 22 132/45 Non-Rebreather 15.0 01/26/17 08:58 97.9 86 20 164/84 94 Venturi Mask 01/26/17 07:30 Non-Rebreather 15.0 100 01/26/17 07:30 68 22 Non-Rebreather 15.0 100 01/26/17 07:30 93 Non-Rebreather 15.0 100 01/26/17 07:00 94 Non-Rebreather 15.0 01/26/17 04:00 97.9 80 20 148/57 91 01/26/17 00:00 98.4 77 22 142/74 93 Intake and Output 01/25/17 01/26/17 19:00 07:00 Intake Total 240 ml Output Total 0 ml 200 ml Balance 0 ml 40 ml Intake Oral 240 ml Output Urine Total 0 ml 200 ml # Bowel Movements 5 General Appearance: no acute distress HEENT: normocephalic, atraumatic, PERRL Respiratory/Chest: chest wall non-tender, decreased breath sounds, accessory muscle use, rhonchi Breasts: no masses Cardiovascular: normal peripheral pulses, normal rate, regular rhythm, no JVD Abdomen: normal bowel sounds, hypoactive bowel sounds, absent bowel sounds Genitourinary: normal external genitalia Extremities: other - redness and swelling Skin: rash, lesions, ulcers 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: fur plucker II-XII grossly normal, responsive, disoriented Laboratory Tests 01/26/17 06:10: White Blood Count 16.5H, Red Blood Count 3.19L, Hemoglobin 9.4L, Hematocrit 28.2L, Mean Corpuscular Volume 88, Mean Corpuscular Hemoglobin 29.5, Mean Corpuscular Hemoglobin Concent 33.3, Red Cell Distribution Width 14.0, Platelet Count 111L, Mean Platelet Volume 6.3L, Neutrophils (%) (Auto) , Lymphocytes (%) (Auto) , Monocytes (%) (Auto) , Eosinophils (%) (Auto) , Basophils (%) (Auto) , Differential Total Cells Counted 100, Neutrophils % (Manual) 85H, Lymphocytes % (Manual) 7L, Monocytes % (Manual) 6, Eosinophils % (Manual) 2, Basophils % ( Manual) 0, Band Neutrophils 0, Platelet Estimate DecreasedL, Platelet Morphology Normal, Hypochromasia 2+, Spherocytes 1+, Sodium Level 145, Potassium Level 5.3H, Chloride Level 100, Carbon Dioxide Level 24, Anion Gap 21H , Blood Urea Nitrogen 81H, Creatinine 7.5H, Estimat Glomerular Filtration Rate , Glucose Level 128H, Uric Acid 7.0, Calcium Level 8.4L, Phosphorus Level 8.3H, Total Bilirubin 0.3, Aspartate Amino Transf (AST/SGOT) 16, Alanine Aminotransferase (ALT/SGPT) 10, Alkaline Phosphatase 81, Pro-B-Type Natriuretic Peptide 84912G, Total Protein 5.7L, Albumin 2.7L, Globulin 3.0, Albumin/ Globulin Ratio 0.9L Current Medications Medications (Trade) Dose Ordered Sig/Rina Route PRN Reason Start Time Stop Time Status Last Admin Dose Admin Acetaminophen (Tylenol) 650 mg Q6H PRN ORAL Mild Pain/Temp > 100.5 01/21/17 19:00 02/20/17 18:59 Acetaminophen/ Hydrocodone Bitart ([place] 5/325) 1 tab Q4H PRN ORAL Moderate Pain (Pain Scale 4-6) 01/21/17 19:00 01/28/17 18:59 01/23/17 22:04 Aluminum Hydroxide (Amphojel) 1,920 mg Q6HR ORAL 01/26/17 11:00 02/25/17 10:59 01/26/17 17:13 Amlodipine Besylate (Norvasc) 5 mg BID ORAL 01/25/17 18:00 02/24/17 17:59 01/26/17 17:14 Aspirin (Ecotrin) 81 mg DAILY ORAL 01/21/17 09:00 02/20/17 08:59 01/26/17 13:49 Cefepime HCl/ Dextrose (Maxipime/D5W) 55 ml @ 110 mls/hr Q24H IVPB 01/20/17 22:00 01/28/17 23:59 01/26/17 21:32 Clopidogrel Bisulfate (Plavix) 75 mg DAILY ORAL 01/21/17 09:00 02/20/17 08:59 01/26/17 13:31 Dextrose (Dextrose 50%) STAT PRN IV Hypoglycemia 01/21/17 02:30 02/20/17 02:29 Docusate Sodium (Colace) 100 mg TID ORAL 01/21/17 13:00 02/20/17 12:59 01/26/17 17:14 Heparin Sodium (Porcine) (Heparin 5000 units/ml) 5,000 units EVERY 12 HOURS SUBQ 01/20/17 21:00 02/19/17 20:59 01/22/17 21:52 Insulin Aspart (NovoLOG) BEFORE MEALS AND HS SUBQ 01/20/17 21:00 02/19/17 20:59 01/26/17 21:31 Lorazepam (Ativan 2mg/ml 1ml) 1 mg Q4H PRN IV For Anxiety 01/20/17 17:30 01/27/17 17:29 01/20/17 17:04 Nitroglycerin (Ntg) 0.4 mg Q5M X 3 DOSES PRN SL Prn Chest Pain 01/20/17 16:45 02/19/17 16:44 Ondansetron HCl (Zofran) 4 mg Q6H PRN IVP Nausea & Vomiting 01/20/17 20:30 02/19/17 20:29 Pantoprazole (Protonix) 40 mg EVERY 12 HOURS ORAL 01/25/17 21:00 02/24/17 20:59 01/26/17 21:31 Polyethylene Glycol (Miralax) 17 gm DAILYPRN PRN ORAL Constipation 01/21/17 02:30 02/20/17 02:29 01/24/17 08:35 Sevelamer Carbonate (Renvela) 2,400 mg THREE TIMES A DAY ORAL 01/23/17 13:00 02/22/17 12:59 01/26/17 17:14 Temazepam (Restoril) 15 mg HSPRN PRN ORAL Insomnia 01/21/17 02:30 01/28/17 02:29 01/23/17 22:04 SHYAM NAVA Jan 26, 2017 23:38
[2017-01-27] VITALS: BP 160/76
[2017-01-27 04:00] VITALS: BP 159/80
--- NOTE | 2017-01-27 04:57 | Infectious Diseases Prog Note ---
Assessment/Plan Assessment/Plan ASSESSMENT: 76 y/o female with: // Probable UTI - UCx(-) // Hypoxia, possible HCAP - CXR 01/24: Extensive bilateral interstitial and airspace opacities, unchanged // h/o CoNS bacteremia 11/05 ( 01/09 ) ?real ( PICC tip+ ) vs contaminant r/o recurrence/persistence - surveillance BCx(-) // h/o right ankle cellulitis / osteomyelitis / hardware infection SP incomplete Rx ( recommended to complete 6 weeks IV daptomycin, cefepime ( end ), but daughter apparently declined at last discharge per documentation ) - SP hardware removal 12/15 - no culture sent - 3P bone scan: 3 phase increased activity in region of distal aspect of right fibula compatible with hardware loosening and/or osteomyelitis - XR: surgical hardware seen reducing old healed distal fibular and medial malleolar fractures. No acute fractures. No dislocations. Bones are demineralized. - elevated ESR, CRP - h/o right ankle ORIF // Probable sepsis // Leukocytosis - persistent, // Hypothermia - resolved // ARF on CKD --> IHD per renal // Dementia // DM2 - HbA1c 6.1% // h/o CAD - trop(-) x1 // NH resident // VRE colonized // No ABX allergies // Full Code PLAN: - continue empiric IV cefepime d# 9 ,add IV Vanco d# 1 - monitor CBC, temperatures - monitor BMP - monitor CXR - respiratory support prn Subjective Constitutional: Denies: anorexia, chills, drenching sweats, fatigue, fever, no symptoms, other Allergies: Coded Allergies: MORPHINE (Verified Adverse Reaction, Severe, PARADOXICAL REACTION, 10/08/12 ) Objective Vital Signs Last 24 Hour Vital Signs Date Time Temp Pulse Resp B/P Pulse Ox O2 Delivery O2 Flow Rate FiO2 01/27/17 04:00 97.9 96 20 159/80 93 Non-Rebreather 15.0 01/27/17 00:00 97.6 86 19 160/76 99 Non-Rebreather 15.0 01/26/17 20:00 97.7 84 20 160/71 95 01/26/17 19:00 98 Non-Rebreather 15.0 100 01/26/17 19:00 Non-Rebreather 15.0 100 01/26/17 19:00 78 18 Non-Rebreather 15.0 100 01/26/17 17:14 78 159/77 01/26/17 16:00 97.2 78 22 159/77 96 Non-Rebreather 15.0 01/26/17 12:13 Non-Rebreather 15.0 01/26/17 12:11 97.4 83 21 108/52 96 Non-Rebreather 15.0 01/26/17 09:00 Non-Rebreather 15.0 01/26/17 09:00 83 108/52 01/26/17 09:00 97.0 72 22 132/45 Non-Rebreather 15.0 01/26/17 08:58 97.9 86 20 164/84 94 Venturi Mask 01/26/17 07:30 Non-Rebreather 15.0 100 01/26/17 07:30 68 22 Non-Rebreather 15.0 100 01/26/17 07:30 93 Non-Rebreather 15.0 100 01/26/17 07:00 94 Non-Rebreather 15.0 Height (Feet): 5 Height (Inches): 1.00 Weight (Pounds): 200 HEENT: atraumatic Respiratory/Chest: normal breath sounds Cardiovascular: regular rhythm Abdomen: soft, non tender Laboratory Tests Test 01/26/17 06:10 White Blood Count 16.5 K/UL (4.8-10.8) H Red Blood Count 3.19 M/UL (4.20-5.40) L Hemoglobin 9.4 G/DL (12.0-16.0) L Hematocrit 28.2 % (37.0-47.0) L Mean Corpuscular Volume 88 FL (80-99) Mean Corpuscular Hemoglobin 29.5 PG (27.0-31.0) Mean Corpuscular Hemoglobin Concent 33.3 G/DL (32.0-36.0) Red Cell Distribution Width 14.0 % (11.6-14.8) Platelet Count 111 K/UL (150-450) L Mean Platelet Volume 6.3 FL (6.5-10.1) L Neutrophils (%) (Auto) % (45.0-75.0) Lymphocytes (%) (Auto) % (20.0-45.0) Monocytes (%) (Auto) % (1.0-10.0) Eosinophils (%) (Auto) % (0.0-3.0) Basophils (%) (Auto) % (0.0-2.0) Differential Total Cells Counted 100 Neutrophils % (Manual) 85 % (45-75) H Lymphocytes % (Manual) 7 % (20-45) L Monocytes % (Manual) 6 % (1-10) Eosinophils % (Manual) 2 % (0-3) Basophils % (Manual) 0 % (0-2) Band Neutrophils 0 % (0-8) Platelet Estimate Decreased L Platelet Morphology Normal Hypochromasia 2+ Spherocytes 1+ Sodium Level 145 mEQ/L (135-145) Potassium Level 5.3 mEQ/L (3.4-4.9) H Chloride Level 100 mEQ/L (98-107) Carbon Dioxide Level 24 mEQ/L (20-30) Anion Gap 21 (5-15) H Blood Urea Nitrogen 81 mg/dL (7-23) H Creatinine 7.5 mg/dL (0.5-0.9) H Estimat Glomerular Filtration Rate mL/min (>60) Glucose Level 128 mg/dL (74-106) H Uric Acid 7.0 mg/dL (3.0-7.5) Calcium Level 8.4 mg/dL (8.6-10.2) L Phosphorus Level 8.3 mg/dL (2.5-4.8) H Total Bilirubin 0.3 mg/dL (0.0-1.2) Aspartate Amino Transf (AST/SGOT) 16 U/L (5-40) Alanine Aminotransferase (ALT/SGPT) 10 U/L (3-33) Alkaline Phosphatase 81 U/L (35-104) Pro-B-Type Natriuretic Peptide 01322 pg/mL (0-450) H Total Protein 5.7 g/dL (6.6-8.7) L Albumin 2.7 g/dL (3.5-5.2) L Globulin 3.0 g/dL Albumin/Globulin Ratio 0.9 (1.0-2.7) L Current Medications Medications (Trade) Dose Ordered Sig/Rina Route PRN Reason Start Time Stop Time Status Last Admin Dose Admin Acetaminophen (Tylenol) 650 mg Q6H PRN ORAL Mild Pain/Temp > 100.5 01/21/17 19:00 02/20/17 18:59 Acetaminophen/ Hydrocodone Bitart ([place] 5/325) 1 tab Q4H PRN ORAL Moderate Pain (Pain Scale 4-6) 01/21/17 19:00 01/28/17 18:59 01/23/17 22:04 Aluminum Hydroxide (Amphojel) 1,920 mg Q6HR ORAL 01/26/17 11:00 02/25/17 10:59 01/26/17 17:13 Amlodipine Besylate (Norvasc) 5 mg BID ORAL 01/25/17 18:00 02/24/17 17:59 01/26/17 17:14 Aspirin (Ecotrin) 81 mg DAILY ORAL 01/21/17 09:00 02/20/17 08:59 01/26/17 13:49 Cefepime HCl/ Dextrose (Maxipime/D5W) 55 ml @ 110 mls/hr Q24H IVPB 01/20/17 22:00 01/28/17 23:59 01/26/17 21:32 Clopidogrel Bisulfate (Plavix) 75 mg DAILY ORAL 01/21/17 09:00 02/20/17 08:59 01/26/17 13:31 Dextrose (Dextrose 50%) STAT PRN IV Hypoglycemia 01/21/17 02:30 02/20/17 02:29 Docusate Sodium (Colace) 100 mg TID ORAL 01/21/17 13:00 02/20/17 12:59 01/26/17 17:14 Heparin Sodium (Porcine) (Heparin 5000 units/ml) 5,000 units EVERY 12 HOURS SUBQ 01/20/17 21:00 02/19/17 20:59 01/22/17 21:52 Insulin Aspart (NovoLOG) BEFORE MEALS AND HS SUBQ 01/20/17 21:00 02/19/17 20:59 01/26/17 21:31 Lorazepam (Ativan 2mg/ml 1ml) 1 mg Q4H PRN IV For Anxiety 01/20/17 17:30 01/27/17 17:29 01/20/17 17:04 Nitroglycerin (Ntg) 0.4 mg Q5M X 3 DOSES PRN SL Prn Chest Pain 01/20/17 16:45 02/19/17 16:44 Ondansetron HCl (Zofran) 4 mg Q6H PRN IVP Nausea & Vomiting 01/20/17 20:30 02/19/17 20:29 Pantoprazole (Protonix) 40 mg EVERY 12 HOURS ORAL 01/25/17 21:00 02/24/17 20:59 01/26/17 21:31 Polyethylene Glycol (Miralax) 17 gm DAILYPRN PRN ORAL Constipation 01/21/17 02:30 02/20/17 02:29 01/24/17 08:35 Sevelamer Carbonate (Renvela) 2,400 mg THREE TIMES A DAY ORAL 01/23/17 13:00 02/22/17 12:59 01/26/17 17:14 Temazepam (Restoril) 15 mg HSPRN PRN ORAL Insomnia 01/21/17 02:30 01/28/17 02:29 01/23/17 22:04 GISELLA JEROME M.D. Jan 27, 2017 04:57
[2017-01-27] MEDS ORDERED: Vancomycin 1gm in D5W 275ml IVPB ONE (06:00)
[2017-01-27] MEDS: NovoLOG Insulin Flexpen SUBQ SCH ×4 (06:41→21:22)
[2017-01-27] MEDS: Aluminum Hydroxide Gel Susp 15ml ORAL SCH ×5 (06:45→18:00)
[2017-01-27 07:04] LABS: MEAN CORPUSCULAR HEMOGLOBIN 29.5 PG (27.0-31.0); MEAN CORPUSCULAR HGB CONC 33.5 G/DL (32.0-36.0); MEAN CORPUSCULAR VOLUME 88 FL (80-99); MEAN PLATELET VOLUME 7.3 FL (6.5-10.1); PLATELET COUNT 88 K/UL (150-450); RED BLOOD COUNT 2.65 M/UL (4.20-5.40); RED CELL DISTRIBUTION WIDTH 14.1 % (11.6-14.8); WHITE BLOOD COUNT 15.9 K/UL (4.8-10.8)
[2017-01-27 07:31] LABS: ALANINE AMINOTRANSFERASE 9 U/L (3-33); ANION GAP 17 (5-15); ASPARTATE AMINO TRANSFERASE 15 U/L (5-40); CALCIUM 8.2 mg/dL (8.6-10.2); CARBON DIOXIDE 30 mEQ/L (20-30); CHLORIDE 96 mEQ/L (98-107); CREATININE 6.1 mg/dL (0.5-0.9); HEMOLYSIS 3; MAGNESIUM 2.1 mg/dL (1.7-2.5); PHOSPHORUS 6.1 mg/dL (2.5-4.8); POTASSIUM 4.4 mEQ/L (3.4-4.9); SODIUM 143 mEQ/L (135-145); TOTAL PROTEIN 5.2 g/dL (6.6-8.7); URIC ACID 5.3 mg/dL (3.0-7.5)
[2017-01-27 08:06] LABS: BAND NEUTROPHILS % (MANUAL) 0 % (0-8); BASOPHILS % (MANUAL) 0 % (0-2); EOSINOPHILS % (MANUAL) 2 % (0-3); LYMPHOCYTES % (MANUAL) 2 % (20-45); NEUTROPHILS % (MANUAL) 92 % (45-75); PLATELET ESTIMATE DECREASED; PLATELET MORPHOLOGY NORMAL; TOTAL CELLS COUNTED 100
[2017-01-27 08:07] LABS: HYPOCHROMASIA 1+
[2017-01-27] MEDS: Aspirin EC 81mg tab ORAL SCH (08:42)
[2017-01-27] MEDS: Docusate 100mg tablet ORAL SCH ×3 (08:42→17:57)
[2017-01-27] MEDS: Heparin 5000 units/ml inj SUBQ SCH ×2 (08:43→21:00)
[2017-01-27 08:58] VITALS: BP 132/55
[2017-01-27 12:57] VITALS: BP 139/59
--- NOTE | 2017-01-27 13:36 | General Progress Note ---
Assessment/Plan Status: unchanged Status Narrative vanco level 16- WBCs [place] 29901 Assessment/Plan ( Had long talk with daughter Gali 01/19) - Acute renal failure and hyperKalemia - Renal failure, likely diabetic nephropathy / HTN - Sepsis , Pneumonia, Respiratory failure and Hypoxia other - h/o Cellulitis in diabetic foot right LE - Decubitus ulcer - Dementia - Diabetes mellitus - Nonpressure ulcer to level of fascia right lateral ankle - S/P ORIF right ankle Plan: HD 01/28 next Monitor renal parameters and Vanco level- Vanco level lower ARTUR Kidney done last admission- unremarkable Adjust BP meds- increase Norvasc- Tunneled catheter placement- on hold for high WBCs Avoid Nephrotoxics- discussed with CM Per orders Subjective ROS Limited/Unobtainable: No Constitutional: Reports: malaise Allergies: Coded Allergies: MORPHINE (Verified Adverse Reaction, Severe, PARADOXICAL REACTION, 10/08/12 ) Objective Last 24 Hour Vital Signs Date Time Temp Pulse Resp B/P Pulse Ox O2 Delivery O2 Flow Rate FiO2 01/27/17 12:57 97.5 85 21 139/59 93 Ambu-Bag 15.0 01/27/17 08:58 97.1 84 24 132/55 93 Ambu-Bag 15.0 01/27/17 08:42 96 159/80 01/27/17 07:58 Non-Rebreather 15.0 100 01/27/17 07:57 99 Non-Rebreather 15.0 100 01/27/17 07:56 80 20 Non-Rebreather 15.0 100 01/27/17 04:00 97.9 96 20 159/80 93 Non-Rebreather 15.0 01/27/17 00:00 97.6 86 19 160/76 99 Non-Rebreather 15.0 01/26/17 20:00 97.7 84 20 160/71 95 01/26/17 19:00 98 Non-Rebreather 15.0 100 01/26/17 19:00 Non-Rebreather 15.0 100 01/26/17 19:00 78 18 Non-Rebreather 15.0 100 01/26/17 17:14 78 159/77 01/26/17 16:00 97.2 78 22 159/77 96 Non-Rebreather 15.0 Intake and Output 01/26/17 01/27/17 19:00 07:00 Intake Total 180 ml 285 ml Output Total 2800 ml 25 ml Balance -2620 ml 260 ml Intake Oral 180 ml 230 ml IV Total 55 ml Output Urine Total 200 ml 25 ml Hemodialysis UF 2600 ml # Bowel Movements 1 Laboratory Tests 01/27/17 05:00: White Blood Count 15.9H, Red Blood Count 2.65L, Hemoglobin 7.8L, Hematocrit 23.4L, Mean Corpuscular Volume 88, Mean Corpuscular Hemoglobin 29.5, Mean Corpuscular Hemoglobin Concent 33.5, Red Cell Distribution Width 14.1, Platelet Count 88L, Mean Platelet Volume 7.3, Neutrophils (%) (Auto) , Lymphocytes (%) ( Auto) , Monocytes (%) (Auto) , Eosinophils (%) (Auto) , Basophils (%) (Auto) , Differential Total Cells Counted 100, Neutrophils % (Manual) 92H, Lymphocytes % (Manual) 2L, Monocytes % (Manual) 4, Eosinophils % (Manual) 2, Basophils % ( Manual) 0, Band Neutrophils 0, Platelet Estimate DecreasedL, Platelet Morphology Normal, Hypochromasia 1+, Sodium Level 143, Potassium Level 4.4, Chloride Level 96L, Carbon Dioxide Level 30, Anion Gap 17H, Blood Urea Nitrogen 62H, Creatinine 6.1H, Estimat Glomerular Filtration Rate , Glucose Level 139H, Uric Acid 5.3, Calcium Level 8.2L, Phosphorus Level 6.1H, Magnesium Level 2.1, Total Bilirubin 0.3, Aspartate Amino Transf (AST/SGOT) 15, Alanine Aminotransferase (ALT/SGPT) 9, Alkaline Phosphatase 73, Pro-B-Type Natriuretic Peptide 17051V, Total Protein 5.2L, Albumin 2.7L, Globulin 2.5, Albumin/ Globulin Ratio 1.0, Random Vancomycin Level 16.8 Height (Feet): 5 Height (Inches): 1.00 Weight (Pounds): 200 General Appearance: no apparent distress Respiratory/Chest: decreased breath sounds Abdomen: soft Objective other PE not changed BERTRAM CASTAÑEDA Jan 27, 2017 13:36
[2017-01-27 16:00] VITALS: BP 143/66
[2017-01-27 20:00] VITALS: BP_SYST 143; BP_SYST 157; BP_DIAS 66; BP_DIAS 75
[2017-01-27] MEDS: Cefepime HCl 500 MG in D5W 55 ML IVPB SCH (21:21)
--- NOTE | 2017-01-27 22:57 | Pulmonology Progress Note ---
Assessment/Plan Problems: (1) Respiratory failure with hypoxia (2) Acute on chronic renal failure (3) Diabetes mellitus (4) Osteomyelitis of ankle or foot, right, acute Assessment/Plan improving HD in am again check cxr abx as per Id sliding scale stable for med/surg Subjective ROS Limited/Unobtainable: Yes Constitutional: Reports: fatigue Respiratory: Reports: dyspnea at rest, dyspnea on exertion, productive cough, shortness of breath, sputum, wheezing Neurologic: Reports: confusion, weakness Allergies: Coded Allergies: MORPHINE (Verified Adverse Reaction, Severe, PARADOXICAL REACTION, 10/08/12 ) Objective Last 24 Hour Vital Signs Date Time Temp Pulse Resp B/P Pulse Ox O2 Delivery O2 Flow Rate FiO2 01/27/17 21:47 99 Non-Rebreather 15.0 100 01/27/17 21:47 Non-Rebreather 15.0 100 01/27/17 21:47 85 20 Non-Rebreather 15.0 100 01/27/17 17:58 87 156/78 01/27/17 16:00 97.7 84 20 143/66 91 Room Air 01/27/17 12:57 97.5 85 21 139/59 93 Ambu-Bag 15.0 01/27/17 08:58 97.1 84 24 132/55 93 Ambu-Bag 15.0 01/27/17 08:42 96 159/80 01/27/17 07:58 Non-Rebreather 15.0 100 01/27/17 07:57 99 Non-Rebreather 15.0 100 01/27/17 07:56 80 20 Non-Rebreather 15.0 100 01/27/17 04:00 97.9 96 20 159/80 93 Non-Rebreather 15.0 01/27/17 00:00 97.6 86 19 160/76 99 Non-Rebreather 15.0 Intake and Output 01/26/17 01/27/17 19:00 07:00 Intake Total 180 ml 285 ml Output Total 2800 ml 25 ml Balance -2620 ml 260 ml Intake Oral 180 ml 230 ml IV Total 55 ml Output Urine Total 200 ml 25 ml Hemodialysis UF 2600 ml # Bowel Movements 1 General Appearance: no acute distress HEENT: normocephalic, atraumatic, PERRL Respiratory/Chest: chest wall non-tender, decreased breath sounds, accessory muscle use, rhonchi Breasts: no masses Cardiovascular: normal peripheral pulses, normal rate, regular rhythm, no JVD Abdomen: normal bowel sounds, soft, non tender, no organomegaly Genitourinary: normal external genitalia Extremities: no cyanosis Skin: rash, lesions, ulcers 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: field administrator II-XII grossly normal, responsive, disoriented Laboratory Tests 01/27/17 05:00: White Blood Count 15.9H, Red Blood Count 2.65L, Hemoglobin 7.8L, Hematocrit 23.4L, Mean Corpuscular Volume 88, Mean Corpuscular Hemoglobin 29.5, Mean Corpuscular Hemoglobin Concent 33.5, Red Cell Distribution Width 14.1, Platelet Count 88L, Mean Platelet Volume 7.3, Neutrophils (%) (Auto) , Lymphocytes (%) ( Auto) , Monocytes (%) (Auto) , Eosinophils (%) (Auto) , Basophils (%) (Auto) , Differential Total Cells Counted 100, Neutrophils % (Manual) 92H, Lymphocytes % (Manual) 2L, Monocytes % (Manual) 4, Eosinophils % (Manual) 2, Basophils % ( Manual) 0, Band Neutrophils 0, Platelet Estimate DecreasedL, Platelet Morphology Normal, Hypochromasia 1+, Sodium Level 143, Potassium Level 4.4, Chloride Level 96L, Carbon Dioxide Level 30, Anion Gap 17H, Blood Urea Nitrogen 62H, Creatinine 6.1H, Estimat Glomerular Filtration Rate , Glucose Level 139H, Uric Acid 5.3, Calcium Level 8.2L, Phosphorus Level 6.1H, Magnesium Level 2.1, Total Bilirubin 0.3, Aspartate Amino Transf (AST/SGOT) 15, Alanine Aminotransferase (ALT/SGPT) 9, Alkaline Phosphatase 73, Pro-B-Type Natriuretic Peptide 66804F, Total Protein 5.2L, Albumin 2.7L, Globulin 2.5, Albumin/ Globulin Ratio 1.0, Random Vancomycin Level 16.8 Current Medications Medications (Trade) Dose Ordered Sig/Rina Route PRN Reason Start Time Stop Time Status Last Admin Dose Admin Acetaminophen (Tylenol) 650 mg Q6H PRN ORAL Mild Pain/Temp > 100.5 01/21/17 19:00 02/20/17 18:59 Acetaminophen/ Hydrocodone Bitart ([place] 5/325) 1 tab Q4H PRN ORAL Moderate Pain (Pain Scale 4-6) 01/21/17 19:00 01/28/17 18:59 01/23/17 22:04 Aluminum Hydroxide (Amphojel) 1,920 mg Q6HR ORAL 01/26/17 11:00 02/25/17 10:59 01/27/17 11:34 Amlodipine Besylate (Norvasc) 5 mg BID ORAL 01/25/17 18:00 02/24/17 17:59 01/27/17 17:58 Aspirin (Ecotrin) 81 mg DAILY ORAL 01/21/17 09:00 02/20/17 08:59 01/27/17 08:42 Cefepime HCl/ Dextrose (Maxipime/D5W) 55 ml @ 110 mls/hr Q24H IVPB 01/20/17 22:00 01/28/17 23:59 01/27/17 21:21 Clopidogrel Bisulfate (Plavix) 75 mg DAILY ORAL 01/21/17 09:00 02/20/17 08:59 01/27/17 08:42 Dextrose (Dextrose 50%) STAT PRN IV Hypoglycemia 01/21/17 02:30 02/20/17 02:29 Docusate Sodium (Colace) 100 mg TID ORAL 01/21/17 13:00 02/20/17 12:59 01/27/17 17:57 Heparin Sodium (Porcine) (Heparin 5000 units/ml) 5,000 units EVERY 12 HOURS SUBQ 01/20/17 21:00 02/19/17 20:59 01/22/17 21:52 Insulin Aspart (NovoLOG) BEFORE MEALS AND HS SUBQ 01/20/17 21:00 02/19/17 20:59 01/27/17 21:22 Nitroglycerin (Ntg) 0.4 mg Q5M X 3 DOSES PRN SL Prn Chest Pain 01/20/17 16:45 02/19/17 16:44 Ondansetron HCl (Zofran) 4 mg Q6H PRN IVP Nausea & Vomiting 01/20/17 20:30 02/19/17 20:29 Pantoprazole (Protonix) 40 mg EVERY 12 HOURS ORAL 01/25/17 21:00 02/24/17 20:59 01/27/17 21:21 Polyethylene Glycol (Miralax) 17 gm DAILYPRN PRN ORAL Constipation 01/21/17 02:30 02/20/17 02:29 01/24/17 08:35 Sevelamer Carbonate (Renvela) 2,400 mg THREE TIMES A DAY ORAL 01/23/17 13:00 02/22/17 12:59 01/27/17 17:58 Temazepam (Restoril) 15 mg HSPRN PRN ORAL Insomnia 01/21/17 02:30 01/28/17 02:29 01/23/17 22:04 Vancomycin HCl (Vanco rx to dose) 1 ea DAILY PRN MISC Per rx protocol 01/27/17 05:45 02/26/17 05:44 SHYAM NAVA Jan 27, 2017 22:57
[2017-01-28] VITALS (9 sets, daily range): BP systolic 125–170; BP diastolic 49–95
[2017-01-28] MEDS: Aluminum Hydroxide Gel Susp 15ml ORAL SCH ×4 (01:58→18:37)
[2017-01-28] MEDS: NovoLOG Insulin Flexpen SUBQ SCH ×4 (06:27→21:00)
[2017-01-28] MEDS: Aspirin EC 81mg tab ORAL SCH (08:43)
[2017-01-28] MEDS: Heparin 5000 units/ml inj SUBQ SCH ×2 (08:44→22:19)
--- NOTE | 2017-01-28 09:36 | Infectious Diseases Prog Note ---
Assessment/Plan Assessment/Plan ASSESSMENT: 76 y/o female with: // Probable UTI - UCx(-) // Hypoxia, possible HCAP - CXR 01/24: Extensive bilateral interstitial and airspace opacities, unchanged // h/o CoNS bacteremia 11/05 ( 01/09 ) ?real ( PICC tip+ ) vs contaminant r/o recurrence/persistence - surveillance BCx(-) // h/o right ankle cellulitis / osteomyelitis / hardware infection SP incomplete Rx ( recommended to complete 6 weeks IV daptomycin, cefepime ( end ), but daughter apparently declined at last discharge per documentation ) - SP hardware removal 12/15 - no culture sent - 3P bone scan: 3 phase increased activity in region of distal aspect of right fibula compatible with hardware loosening and/or osteomyelitis - XR: surgical hardware seen reducing old healed distal fibular and medial malleolar fractures. No acute fractures. No dislocations. Bones are demineralized. - elevated ESR, CRP - h/o right ankle ORIF // Probable sepsis // Leukocytosis - persistent, // ARF on CKD --> IHD per renal // Dementia // DM2 - HbA1c 6.1% // h/o CAD - trop(-) x1 // NH resident // VRE colonized // No ABX allergies // Full Code PLAN: - change IV cefepime d# 10 IV Vanco d# 2 to Teflaro d# 1 ( avoid Nephro toxic and due to low Plt ) - monitor CBC, temperatures - monitor BMP - monitor CXR - respiratory support prn Subjective Constitutional: Denies: anorexia, chills, drenching sweats, fatigue, fever, no symptoms, other Allergies: Coded Allergies: MORPHINE (Verified Adverse Reaction, Severe, PARADOXICAL REACTION, 10/08/12 ) Objective Vital Signs Last 24 Hour Vital Signs Date Time Temp Pulse Resp B/P Pulse Ox O2 Delivery O2 Flow Rate FiO2 01/28/17 08:58 97.2 84 21 147/77 96 Non-Rebreather 15.0 01/28/17 08:20 Non-Rebreather 15.0 01/28/17 08:20 97.3 84 22 170/95 96 Non-Rebreather 15.0 01/28/17 08:00 97.9 91 19 150/81 97 Venturi Mask 01/28/17 04:00 97.7 79 20 135/61 98 01/28/17 00:00 97.9 85 22 144/63 98 01/27/17 21:47 99 Non-Rebreather 15.0 100 01/27/17 21:47 Non-Rebreather 15.0 100 01/27/17 21:47 85 20 Non-Rebreather 15.0 100 01/27/17 20:00 98.1 82 22 157/75 94 Simple Mask 15.0 01/27/17 17:58 87 156/78 01/27/17 16:00 97.7 84 20 143/66 91 Room Air 01/27/17 12:57 97.5 85 21 139/59 93 Ambu-Bag 15.0 Height (Feet): 5 Height (Inches): 1.00 Weight (Pounds): 200 HEENT: anicteric Respiratory/Chest: normal breath sounds Cardiovascular: regularly irregular Abdomen: no organomegaly Microbiology Date/Time Source Procedure Growth Status 01/26/17 13:25 Blood Blood Culture - Preliminary NO GROWTH AFTER 24 HOURS Resulted 01/26/17 13:00 Blood Blood Culture - Preliminary NO GROWTH AFTER 24 HOURS Resulted Current Medications Medications (Trade) Dose Ordered Sig/Rina Route PRN Reason Start Time Stop Time Status Last Admin Dose Admin Acetaminophen (Tylenol) 650 mg Q6H PRN ORAL Mild Pain/Temp > 100.5 01/21/17 19:00 02/20/17 18:59 Acetaminophen/ Hydrocodone Bitart ([place] 5/325) 1 tab Q4H PRN ORAL Moderate Pain (Pain Scale 4-6) 01/21/17 19:00 01/28/17 18:59 01/23/17 22:04 Aluminum Hydroxide (Amphojel) 1,920 mg Q6HR ORAL 01/26/17 11:00 02/25/17 10:59 01/28/17 06:59 Amlodipine Besylate (Norvasc) 5 mg BID ORAL 01/25/17 18:00 02/24/17 17:59 01/27/17 17:58 Aspirin (Ecotrin) 81 mg DAILY ORAL 01/21/17 09:00 02/20/17 08:59 01/28/17 08:43 Cefepime HCl/ Dextrose (Maxipime/D5W) 55 ml @ 110 mls/hr Q24H IVPB 01/20/17 22:00 01/28/17 23:59 01/27/17 21:21 Clopidogrel Bisulfate (Plavix) 75 mg DAILY ORAL 01/21/17 09:00 02/20/17 08:59 01/28/17 08:44 Dextrose (Dextrose 50%) STAT PRN IV Hypoglycemia 01/21/17 02:30 02/20/17 02:29 Docusate Sodium (Colace) 100 mg TID ORAL 01/21/17 13:00 02/20/17 12:59 01/27/17 17:57 Heparin Sodium (Porcine) (Heparin 5000 units/ml) 5,000 units EVERY 12 HOURS SUBQ 01/20/17 21:00 02/19/17 20:59 01/22/17 21:52 Insulin Aspart (NovoLOG) BEFORE MEALS AND HS SUBQ 01/20/17 21:00 02/19/17 20:59 01/28/17 06:27 Nitroglycerin (Ntg) 0.4 mg Q5M X 3 DOSES PRN SL Prn Chest Pain 01/20/17 16:45 02/19/17 16:44 Ondansetron HCl (Zofran) 4 mg Q6H PRN IVP Nausea & Vomiting 01/20/17 20:30 02/19/17 20:29 Pantoprazole (Protonix) 40 mg EVERY 12 HOURS ORAL 01/25/17 21:00 02/24/17 20:59 01/28/17 08:44 Polyethylene Glycol (Miralax) 17 gm DAILYPRN PRN ORAL Constipation 01/21/17 02:30 02/20/17 02:29 01/24/17 08:35 Sevelamer Carbonate (Renvela) 2,400 mg THREE TIMES A DAY ORAL 01/23/17 13:00 02/22/17 12:59 01/27/17 17:58 Vancomycin HCl (Vanco rx to dose) 1 ea DAILY PRN MISC Per rx protocol 01/27/17 05:45 02/26/17 05:44 GISELLA JEROME M.D. Jan 28, 2017 09:36
[2017-01-28] MEDS: Docusate 100mg tablet ORAL SCH ×3 (10:05→18:36)
[2017-01-28 10:29] LABS: MEAN CORPUSCULAR HEMOGLOBIN 29.2 PG (27.0-31.0); MEAN CORPUSCULAR HGB CONC 33.2 G/DL (32.0-36.0); MEAN CORPUSCULAR VOLUME 88 FL (80-99); PLATELET COUNT 107 K/UL (150-450); RED BLOOD COUNT 3.59 M/UL (4.20-5.40); RED CELL DISTRIBUTION WIDTH 13.4 % (11.6-14.8)
[2017-01-28 10:31] LABS: WHITE BLOOD COUNT 22.6 K/UL (4.8-10.8)
[2017-01-28 11:06] LABS: ANISOCYTOSIS 1+; BAND NEUTROPHILS % (MANUAL) 0 % (0-8); BASOPHILS % (MANUAL) 0 % (0-2); EOSINOPHILS % (MANUAL) 0 % (0-3); HYPOCHROMASIA 1+; LYMPHOCYTES % (MANUAL) 5 % (20-45); NEUTROPHILS % (MANUAL) 89 % (45-75); PLATELET ESTIMATE DECREASED; PLATELET MORPHOLOGY NORMAL; TOTAL CELLS COUNTED 100
[2017-01-28] MEDS: Ceftaroline 200 MG in NS 55 ML IV SCH ×2 (13:09→22:19)
--- NOTE | 2017-01-28 14:23 | General Progress Note ---
Assessment/Plan Status: unchanged Status Narrative worsening leukocytosis- BC negative Assessment/Plan ( Had long talk with daughter Gali 01/19 ) - Acute renal failure and hyperKalemia - Renal failure, likely diabetic nephropathy / HTN - Sepsis , Pneumonia, Respiratory failure and Hypoxia other - h/o Cellulitis in diabetic foot right LE - Decubitus ulcer - Dementia - Diabetes mellitus - Nonpressure ulcer to level of fascia right lateral ankle - S/P ORIF right ankle Plan: HD 01/28 DC nech line monitor WBCs Monitor renal parameters and Vanco level- Vanco level lower ARTUR Kidney done last admission- unremarkable Adjust BP meds- increase Norvasc- Tunneled catheter placement- on hold for high WBCs Avoid Nephrotoxics- discussed with CM Per orders Subjective ROS Limited/Unobtainable: No Constitutional: Reports: malaise Allergies: Coded Allergies: MORPHINE (Verified Adverse Reaction, Severe, PARADOXICAL REACTION, 10/08/12 ) Objective Last 24 Hour Vital Signs Date Time Temp Pulse Resp B/P Pulse Ox O2 Delivery O2 Flow Rate FiO2 01/28/17 12:30 97.9 87 18 125/75 94 Venturi Mask 01/28/17 12:01 97.0 91 21 140/49 95 Non-Rebreather 15.0 01/28/17 11:58 Non-Rebreather 15.0 01/28/17 10:00 98 Non-Rebreather 15.0 100 01/28/17 10:00 Non-Rebreather 15.0 100 01/28/17 10:00 82 18 Non-Rebreather 15.0 100 01/28/17 08:58 97.2 84 21 147/77 96 Non-Rebreather 15.0 01/28/17 08:20 Non-Rebreather 15.0 01/28/17 08:20 97.3 84 22 170/95 96 Non-Rebreather 15.0 01/28/17 08:00 97.9 91 19 150/81 97 Venturi Mask 01/28/17 04:00 97.7 79 20 135/61 98 01/28/17 00:00 97.9 85 22 144/63 98 01/27/17 21:47 99 Non-Rebreather 15.0 100 01/27/17 21:47 Non-Rebreather 15.0 100 01/27/17 21:47 85 20 Non-Rebreather 15.0 100 01/27/17 20:00 98.1 82 22 157/75 94 Simple Mask 15.0 01/27/17 17:58 87 156/78 01/27/17 16:00 97.7 84 20 143/66 91 Room Air Intake and Output 01/27/17 01/28/17 19:00 07:00 Intake Total 175 ml Output Total 0 ml 225 ml Balance 0 ml -50 ml Intake Oral 120 ml IV Total 55 ml Output Urine Total 0 ml 225 ml # Bowel Movements 2 Laboratory Tests 01/28/17 09:50: White Blood Count 22.6*H, Red Blood Count 3.59L, Hemoglobin 10.5#L, Hematocrit 31.6#L, Mean Corpuscular Volume 88, Mean Corpuscular Hemoglobin 29.2, Mean Corpuscular Hemoglobin Concent 33.2, Red Cell Distribution Width 13.4, Platelet Count 107L, Mean Platelet Volume 7.0, Neutrophils (%) (Auto) , Lymphocytes (%) ( Auto) , Monocytes (%) (Auto) , Eosinophils (%) (Auto) , Basophils (%) (Auto) , Differential Total Cells Counted 100, Neutrophils % (Manual) 89H, Lymphocytes % (Manual) 5L, Monocytes % (Manual) 6, Eosinophils % (Manual) 0, Basophils % ( Manual) 0, Band Neutrophils 0, Platelet Estimate DecreasedL, Platelet Morphology Normal, Hypochromasia 1+, Anisocytosis 1+ Height (Feet): 5 Height (Inches): 1.00 Weight (Pounds): 200 General Appearance: no apparent distress Objective other PE not changed BERTRAM CASTAÑEDA Jan 28, 2017 14:23
[2017-01-28] MEDS ORDERED: Tubing IV Secondary IV ONE (22:11)
[2017-01-28] MEDS ORDERED: NS 275ml ONE (22:11)
[2017-01-28] MEDS ORDERED: Tubing Blood Filter IV ONE (22:11)
--- NOTE | 2017-01-28 22:38 | Pulmonology Progress Note ---
Assessment/Plan Problems: (1) Respiratory failure with hypoxia (2) Acute on chronic renal failure (3) Diabetes mellitus (4) Osteomyelitis of ankle or foot, right, acute Assessment/Plan improving HD in am again check cxr abx as per Id sliding scale stable for med/surg Subjective ROS Limited/Unobtainable: Yes Constitutional: Reports: anorexia, fatigue Neurologic: Reports: confusion, weakness Skin: Reports: rash, ulcer Allergies: Coded Allergies: MORPHINE (Verified Adverse Reaction, Severe, PARADOXICAL REACTION, 10/08/12 ) Objective Last 24 Hour Vital Signs Date Time Temp Pulse Resp B/P Pulse Ox O2 Delivery O2 Flow Rate FiO2 01/28/17 20:42 98.1 91 19 130/70 95 Room Air 01/28/17 19:25 96 Non-Rebreather 15.0 100 01/28/17 19:25 80 20 Non-Rebreather 15.0 100 01/28/17 19:25 Non-Rebreather 15.0 100 01/28/17 18:37 92 128/65 01/28/17 16:00 97.9 92 18 128/65 94 Room Air 01/28/17 12:30 97.9 87 18 125/75 94 Venturi Mask 01/28/17 12:01 97.0 91 21 140/49 95 Non-Rebreather 15.0 01/28/17 11:58 Non-Rebreather 15.0 01/28/17 10:00 98 Non-Rebreather 15.0 100 01/28/17 10:00 Non-Rebreather 15.0 100 01/28/17 10:00 82 18 Non-Rebreather 15.0 100 01/28/17 08:58 97.2 84 21 147/77 96 Non-Rebreather 15.0 01/28/17 08:20 Non-Rebreather 15.0 01/28/17 08:20 97.3 84 22 170/95 96 Non-Rebreather 15.0 01/28/17 08:00 97.9 91 19 150/81 97 Venturi Mask 01/28/17 04:00 97.7 79 20 135/61 98 01/28/17 00:00 97.9 85 22 144/63 98 Intake and Output 01/27/17 01/28/17 19:00 07:00 Intake Total 175 ml Output Total 0 ml 225 ml Balance 0 ml -50 ml Intake Oral 120 ml IV Total 55 ml Output Urine Total 0 ml 225 ml # Bowel Movements 2 General Appearance: no acute distress HEENT: normocephalic, atraumatic, PERRL Respiratory/Chest: chest wall non-tender, decreased breath sounds, accessory muscle use Breasts: no masses Cardiovascular: normal peripheral pulses, normal rate, regular rhythm, no JVD Abdomen: normal bowel sounds, soft, non tender, no organomegaly Genitourinary: normal external genitalia Extremities: no cyanosis Skin: rash, lesions, ulcers 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: 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 normal, responsive, disoriented Microbiology Date/Time Source Procedure Growth Status 01/26/17 13:25 Blood Blood Culture - Preliminary NO GROWTH AFTER 24 HOURS Resulted 01/26/17 13:00 Blood Blood Culture - Preliminary NO GROWTH AFTER 24 HOURS Resulted Laboratory Tests 01/28/17 09:50: White Blood Count 22.6*H, Red Blood Count 3.59L, Hemoglobin 10.5#L, Hematocrit 31.6#L, Mean Corpuscular Volume 88, Mean Corpuscular Hemoglobin 29.2, Mean Corpuscular Hemoglobin Concent 33.2, Red Cell Distribution Width 13.4, Platelet Count 107L, Mean Platelet Volume 7.0, Neutrophils (%) (Auto) , Lymphocytes (%) ( Auto) , Monocytes (%) (Auto) , Eosinophils (%) (Auto) , Basophils (%) (Auto) , Differential Total Cells Counted 100, Neutrophils % (Manual) 89H, Lymphocytes % (Manual) 5L, Monocytes % (Manual) 6, Eosinophils % (Manual) 0, Basophils % ( Manual) 0, Band Neutrophils 0, Platelet Estimate DecreasedL, Platelet Morphology Normal, Hypochromasia 1+, Anisocytosis 1+ Current Medications Medications (Trade) Dose Ordered Sig/Rina Route PRN Reason Start Time Stop Time Status Last Admin Dose Admin Acetaminophen (Tylenol) 650 mg Q6H PRN ORAL Mild Pain/Temp > 100.5 01/21/17 19:00 02/20/17 18:59 Aluminum Hydroxide 1920 mg 1,920 mg Q6HR ORAL 01/26/17 11:00 02/25/17 10:59 01/28/17 18:37 Amlodipine Besylate (Norvasc) 5 mg BID ORAL 01/25/17 18:00 02/24/17 17:59 01/28/17 18:37 Aspirin (Ecotrin) 81 mg DAILY ORAL 01/21/17 09:00 02/20/17 08:59 01/28/17 08:43 Ceftaroline Fosamil/Sodium Chloride (Teflaro/Sodium Chloride) 55 ml @ 55 mls/hr Q12HR IV 01/28/17 12:00 02/04/17 11:59 01/28/17 22:19 Clopidogrel Bisulfate (Plavix) 75 mg DAILY ORAL 01/21/17 09:00 02/20/17 08:59 01/28/17 08:44 Dextrose (Dextrose 50%) STAT PRN IV Hypoglycemia 01/21/17 02:30 02/20/17 02:29 Docusate Sodium (Colace) 100 mg TID ORAL 01/21/17 13:00 02/20/17 12:59 01/28/17 18:36 Heparin Sodium (Porcine) (Heparin 5000 units/ml) 5,000 units EVERY 12 HOURS SUBQ 01/20/17 21:00 02/19/17 20:59 01/22/17 21:52 Insulin Aspart (NovoLOG) BEFORE MEALS AND HS SUBQ 01/20/17 21:00 02/19/17 20:59 01/28/17 12:08 Nitroglycerin (Ntg) 0.4 mg Q5M X 3 DOSES PRN SL Prn Chest Pain 01/20/17 16:45 02/19/17 16:44 Ondansetron HCl (Zofran) 4 mg Q6H PRN IVP Nausea & Vomiting 01/20/17 20:30 02/19/17 20:29 Pantoprazole (Protonix) 40 mg EVERY 12 HOURS ORAL 01/25/17 21:00 02/24/17 20:59 01/28/17 08:44 Polyethylene Glycol (Miralax) 17 gm DAILYPRN PRN ORAL Constipation 01/21/17 02:30 02/20/17 02:29 01/24/17 08:35 Sevelamer Carbonate (Renvela) 2,400 mg THREE TIMES A DAY ORAL 01/23/17 13:00 02/22/17 12:59 01/28/17 18:37 SHYAM NAVA Jan 28, 2017 22:38
[2017-01-29] VITALS: BP 148/63
[2017-01-29] MEDS: Aluminum Hydroxide Gel Susp 15ml ORAL SCH ×4 (00:54→17:40)
[2017-01-29 04:00] VITALS: BP 145/61
[2017-01-29] MEDS: NovoLOG Insulin Flexpen SUBQ SCH ×4 (06:24→20:38)
[2017-01-29 07:27] LABS: MEAN CORPUSCULAR HEMOGLOBIN 30.4 PG (27.0-31.0); MEAN CORPUSCULAR VOLUME 89 FL (80-99); MEAN PLATELET VOLUME 7.3 FL (6.5-10.1); PLATELET COUNT 90 K/UL (150-450); RED BLOOD COUNT 3.07 M/UL (4.20-5.40); RED CELL DISTRIBUTION WIDTH 14.2 % (11.6-14.8); WHITE BLOOD COUNT 14.7 K/UL (4.8-10.8)
--- NOTE | 2017-01-29 07:30 | Infectious Diseases Prog Note ---
Assessment/Plan Assessment/Plan ASSESSMENT: 76 y/o female with: // Probable UTI - UCx(-) // Hypoxia, possible HCAP - CXR 01/24: Extensive bilateral interstitial and airspace opacities, unchanged // h/o CoNS bacteremia 11/05 ( 01/09 ) ?real ( PICC tip+ ) vs contaminant r/o recurrence/persistence - surveillance BCx(-) // h/o right ankle cellulitis / osteomyelitis / hardware infection SP incomplete Rx ( recommended to complete 6 weeks IV daptomycin, cefepime ( end ), but daughter apparently declined at last discharge per documentation ) - SP hardware removal 12/15 - no culture sent - 3P bone scan: 3 phase increased activity in region of distal aspect of right fibula compatible with hardware loosening and/or osteomyelitis - XR: surgical hardware seen reducing old healed distal fibular and medial malleolar fractures. No acute fractures. No dislocations. Bones are demineralized. - elevated ESR, CRP - h/o right ankle ORIF // Probable sepsis // Leukocytosis improving // ARF on CKD --> IHD per renal // Dementia // DM2 - HbA1c 6.1% // h/o CAD - trop(-) x1 // NH resident // VRE colonized // No ABX allergies // Full Code PLAN: - cont Teflaro d# 2 ( avoid Nephro toxic and due to low Plt ) ( 01/28 SP IV cefepime d# 10 IV Vanco d# 2 ) - monitor CBC, temperatures - monitor BMP - monitor CXR - respiratory support prn Subjective Constitutional: Denies: anorexia, chills, drenching sweats, fatigue, fever, no symptoms, other Allergies: Coded Allergies: MORPHINE (Verified Adverse Reaction, Severe, PARADOXICAL REACTION, 10/08/12 ) Objective Vital Signs Last 24 Hour Vital Signs Date Time Temp Pulse Resp B/P Pulse Ox O2 Delivery O2 Flow Rate FiO2 01/29/17 04:00 98.1 74 24 145/61 96 Non-Rebreather 15.0 01/29/17 00:00 98.1 81 24 148/63 99 Non-Rebreather 01/28/17 20:42 98.1 91 19 130/70 95 Room Air 01/28/17 19:25 96 Non-Rebreather 15.0 100 01/28/17 19:25 80 20 Non-Rebreather 15.0 100 01/28/17 19:25 Non-Rebreather 15.0 100 01/28/17 18:37 92 128/65 01/28/17 16:00 97.9 92 18 128/65 94 Room Air 01/28/17 12:30 97.9 87 18 125/75 94 Venturi Mask 01/28/17 12:01 97.0 91 21 140/49 95 Non-Rebreather 15.0 01/28/17 11:58 Non-Rebreather 15.0 01/28/17 10:00 98 Non-Rebreather 15.0 100 01/28/17 10:00 Non-Rebreather 15.0 100 01/28/17 10:00 82 18 Non-Rebreather 15.0 100 01/28/17 08:58 97.2 84 21 147/77 96 Non-Rebreather 15.0 01/28/17 08:20 Non-Rebreather 15.0 01/28/17 08:20 97.3 84 22 170/95 96 Non-Rebreather 15.0 01/28/17 08:00 97.9 91 19 150/81 97 Venturi Mask Height (Feet): 5 Height (Inches): 1.00 Weight (Pounds): 200 HEENT: atraumatic Respiratory/Chest: normal breath sounds, decreased breath sounds, accessory muscle use Cardiovascular: normal rate, regularly irregular Abdomen: soft, non tender, no organomegaly Microbiology Date/Time Source Procedure Growth Status 01/26/17 13:25 Blood Blood Culture - Preliminary NO GROWTH AFTER 48 HOURS Resulted 01/26/17 13:00 Blood Blood Culture - Preliminary NO GROWTH AFTER 48 HOURS Resulted Laboratory Tests Test 01/28/17 09:50 01/29/17 05:50 White Blood Count 22.6 K/UL (4.8-10.8) *H Pending Red Blood Count 3.59 M/UL (4.20-5.40) L Pending Hemoglobin 10.5 G/DL (12.0-16.0) #L Pending Hematocrit 31.6 % (37.0-47.0) #L Pending Mean Corpuscular Volume 88 FL (80-99) Pending Mean Corpuscular Hemoglobin 29.2 PG (27.0-31.0) Pending Mean Corpuscular Hemoglobin Concent 33.2 G/DL (32.0-36.0) Pending Red Cell Distribution Width 13.4 % (11.6-14.8) Pending Platelet Count 107 K/UL (150-450) L Pending Mean Platelet Volume 7.0 FL (6.5-10.1) Pending Neutrophils (%) (Auto) % (45.0-75.0) Pending Lymphocytes (%) (Auto) % (20.0-45.0) Pending Monocytes (%) (Auto) % (1.0-10.0) Pending Eosinophils (%) (Auto) % (0.0-3.0) Pending Basophils (%) (Auto) % (0.0-2.0) Pending Differential Total Cells Counted 100 Neutrophils % (Manual) 89 % (45-75) H Lymphocytes % (Manual) 5 % (20-45) L Monocytes % (Manual) 6 % (1-10) Eosinophils % (Manual) 0 % (0-3) Basophils % (Manual) 0 % (0-2) Band Neutrophils 0 % (0-8) Platelet Estimate Decreased L Platelet Morphology Normal Hypochromasia 1+ Anisocytosis 1+ Sodium Level Pending Potassium Level Pending Chloride Level Pending Carbon Dioxide Level Pending Blood Urea Nitrogen Pending Creatinine Pending Estimat Glomerular Filtration Rate Pending Glucose Level Pending Uric Acid Pending Calcium Level Pending Phosphorus Level Pending Total Bilirubin Pending Aspartate Amino Transf (AST/SGOT) Pending Alanine Aminotransferase (ALT/SGPT) Pending Alkaline Phosphatase Pending C-Reactive Protein, Quantitative Pending Pro-B-Type Natriuretic Peptide Pending Total Protein Pending Albumin Pending Globulin Pending Random Vancomycin Level Pending Current Medications Medications (Trade) Dose Ordered Sig/Rina Route PRN Reason Start Time Stop Time Status Last Admin Dose Admin Acetaminophen (Tylenol) 650 mg Q6H PRN ORAL Mild Pain/Temp > 100.5 01/21/17 19:00 02/20/17 18:59 Aluminum Hydroxide 1920 mg 1,920 mg Q6HR ORAL 01/26/17 11:00 02/25/17 10:59 01/29/17 06:24 Amlodipine Besylate (Norvasc) 5 mg BID ORAL 01/25/17 18:00 02/24/17 17:59 01/28/17 18:37 Aspirin (Ecotrin) 81 mg DAILY ORAL 01/21/17 09:00 02/20/17 08:59 01/28/17 08:43 Ceftaroline Fosamil/Sodium Chloride (Teflaro/Sodium Chloride) 55 ml @ 55 mls/hr Q12HR IV 01/28/17 12:00 02/04/17 11:59 01/28/17 22:19 Clopidogrel Bisulfate (Plavix) 75 mg DAILY ORAL 01/21/17 09:00 02/20/17 08:59 01/28/17 08:44 Dextrose (Dextrose 50%) STAT PRN IV Hypoglycemia 01/21/17 02:30 02/20/17 02:29 Docusate Sodium (Colace) 100 mg TID ORAL 01/21/17 13:00 02/20/17 12:59 01/28/17 18:36 Heparin Sodium (Porcine) (Heparin 5000 units/ml) 5,000 units EVERY 12 HOURS SUBQ 01/20/17 21:00 02/19/17 20:59 01/22/17 21:52 Insulin Aspart (NovoLOG) BEFORE MEALS AND HS SUBQ 01/20/17 21:00 02/19/17 20:59 01/28/17 12:08 Nitroglycerin (Ntg) 0.4 mg Q5M X 3 DOSES PRN SL Prn Chest Pain 01/20/17 16:45 02/19/17 16:44 Ondansetron HCl (Zofran) 4 mg Q6H PRN IVP Nausea & Vomiting 01/20/17 20:30 02/19/17 20:29 Pantoprazole (Protonix) 40 mg EVERY 12 HOURS ORAL 01/25/17 21:00 02/24/17 20:59 01/28/17 08:44 Polyethylene Glycol (Miralax) 17 gm DAILYPRN PRN ORAL Constipation 01/21/17 02:30 02/20/17 02:29 01/24/17 08:35 Sevelamer Carbonate (Renvela) 2,400 mg THREE TIMES A DAY ORAL 01/23/17 13:00 02/22/17 12:59 01/28/17 18:37 GISELLA JEROME M.D. Jan 29, 2017 07:30
[2017-01-29 07:55] LABS: ALANINE AMINOTRANSFERASE 13 U/L (3-33); ALBUMIN/GLOBULIN RATIO 1.2 (1.0-2.7); ANION GAP 16 (5-15); ASPARTATE AMINO TRANSFERASE 18 U/L (5-40); CALCIUM 8.2 mg/dL (8.6-10.2); CARBON DIOXIDE 32 mEQ/L (20-30); CHLORIDE 96 mEQ/L (98-107); CREATININE 5.3 mg/dL (0.5-0.9); CRP QUANT 6.3 mg/dL (< 0.5); HEMOLYSIS 4; PHOSPHORUS 5.1 mg/dL (2.5-4.8); POTASSIUM 4.3 mEQ/L (3.4-4.9); SODIUM 144 mEQ/L (135-145); TOTAL PROTEIN 5.3 g/dL (6.6-8.7); URIC ACID 4.3 mg/dL (3.0-7.5)
[2017-01-29 08:00] VITALS: BP 138/62
[2017-01-29 08:08] LABS: ANISOCYTOSIS 1+; BAND NEUTROPHILS % (MANUAL) 0 % (0-8); BASOPHILS % (MANUAL) 0 % (0-2); EOSINOPHILS % (MANUAL) 1 % (0-3); HYPOCHROMASIA 2+; LYMPHOCYTES % (MANUAL) 9 % (20-45); NEUTROPHILS % (MANUAL) 80 % (45-75); PLATELET ESTIMATE DECREASED; PLATELET MORPHOLOGY NORMAL; SPHEROCYTES 1+; TOTAL CELLS COUNTED 100
[2017-01-29] MEDS: Docusate 100mg tablet ORAL SCH ×3 (08:33→17:24)
[2017-01-29] MEDS: Aspirin EC 81mg tab ORAL SCH (08:33)
[2017-01-29] MEDS: Heparin 5000 units/ml inj SUBQ SCH ×2 (08:34→20:37)
[2017-01-29] MEDS: Ceftaroline 200 MG in NS 55 ML IV SCH ×2 (09:00→20:37)
[2017-01-29 09:51] LABS: HEPATITIS C VIRUS AB/CEDARS 0.12 S/CO (<0.80)
[2017-01-29 12:00] VITALS: BP 142/59
--- NOTE | 2017-01-29 12:24 | General Progress Note ---
Assessment/Plan Status: unchanged Status Narrative neck line removed Assessment/Plan ( Had long talk with daughter Gali 01/19 ) - Acute renal failure and hyperKalemia - Renal failure, likely diabetic nephropathy / HTN - Sepsis , Pneumonia, Respiratory failure and Hypoxia other - h/o Cellulitis in diabetic foot right LE - Decubitus ulcer - Dementia - Diabetes mellitus - Nonpressure ulcer to level of fascia right lateral ankle - S/P ORIF right ankle Plan: reinsert cath in am and dialysed HD 01/28 monitor WBCs Monitor renal parameters and Vanco level- Vanco level lower ARTUR Kidney done last admission- unremarkable Adjust BP meds- increase Norvasc- Tunneled catheter placement- on hold for high WBCs Avoid Nephrotoxics- discussed with CM Per orders Subjective ROS Limited/Unobtainable: No Constitutional: Reports: malaise Allergies: Coded Allergies: MORPHINE (Verified Adverse Reaction, Severe, PARADOXICAL REACTION, 10/08/12 ) Objective Last 24 Hour Vital Signs Date Time Temp Pulse Resp B/P Pulse Ox O2 Delivery O2 Flow Rate FiO2 01/29/17 08:33 74 145/61 01/29/17 08:00 97.5 70 22 138/62 95 Non-Rebreather 15.0 01/29/17 07:58 Non-Rebreather 15.0 100 01/29/17 07:56 97 Non-Rebreather 15.0 100 01/29/17 07:52 73 18 Non-Rebreather 15.0 100 01/29/17 04:00 98.1 74 24 145/61 96 Non-Rebreather 15.0 01/29/17 00:00 98.1 81 24 148/63 99 Non-Rebreather 01/28/17 20:42 98.1 91 19 130/70 95 Room Air 01/28/17 19:25 96 Non-Rebreather 15.0 100 01/28/17 19:25 80 20 Non-Rebreather 15.0 100 01/28/17 19:25 Non-Rebreather 15.0 100 01/28/17 18:37 92 128/65 01/28/17 16:00 97.9 92 18 128/65 94 Room Air 01/28/17 12:30 97.9 87 18 125/75 94 Venturi Mask Intake and Output 01/28/17 01/29/17 19:00 07:00 Intake Total 175 ml 540 ml Output Total 2700 ml 125 ml Balance -2525 ml 415 ml Intake Oral 120 ml 540 ml IV Total 55 ml Output Urine Total 125 ml Hemodialysis UF 2700 ml Laboratory Tests 01/29/17 05:50: White Blood Count 14.7H, Red Blood Count 3.07L, Hemoglobin 9.3L, Hematocrit 27.4L, Mean Corpuscular Volume 89, Mean Corpuscular Hemoglobin 30.4, Mean Corpuscular Hemoglobin Concent 34.0, Red Cell Distribution Width 14.2, Platelet Count 90L, Mean Platelet Volume 7.3, Neutrophils (%) (Auto) , Lymphocytes (%) ( Auto) , Monocytes (%) (Auto) , Eosinophils (%) (Auto) , Basophils (%) (Auto) , Differential Total Cells Counted 100, Neutrophils % (Manual) 80H, Lymphocytes % (Manual) 9L, Monocytes % (Manual) 10, Eosinophils % (Manual) 1, Basophils % ( Manual) 0, Band Neutrophils 0, Platelet Estimate DecreasedL, Platelet Morphology Normal, Hypochromasia 2+, Anisocytosis 1+, Spherocytes 1+, Sodium Level 144, Potassium Level 4.3, Chloride Level 96L, Carbon Dioxide Level 32H, Anion Gap 16H, Blood Urea Nitrogen 54H, Creatinine 5.3H, Estimat Glomerular Filtration Rate , Glucose Level 126H, Uric Acid 4.3, Calcium Level 8.2L, Phosphorus Level 5.1H, Total Bilirubin 0.4, Aspartate Amino Transf (AST/SGOT) 18 , Alanine Aminotransferase (ALT/SGPT) 13, Alkaline Phosphatase 77, C-Reactive Protein, Quantitative 6.3H, Pro-B-Type Natriuretic Peptide 55612I, Total Protein 5.3L, Albumin 2.9L, Globulin 2.4, Albumin/Globulin Ratio 1.2, Random Vancomycin Level 22.3 Height (Feet): 5 Height (Inches): 1.00 Weight (Pounds): 200 General Appearance: no apparent distress Cardiovascular: regular rhythm Respiratory/Chest: decreased breath sounds, other - cath out Abdomen: soft Objective other PE not changed BERTRAM CASTAÑEDA Jan 29, 2017 12:24
[2017-01-29] MEDS: Miralax 17gm pkt ORAL PRN (13:10)
[2017-01-29 16:00] VITALS: BP 152/66
--- NOTE | 2017-01-29 17:32 | Wound Care Consultation ---
Wound Assessment Wound Assessment #1: Wound Number: #1 Wound Present on Admission: No New Wound: Yes Status Change of Wound: No Wound Location Body Site Modif: left Wound Location Body Site: ear - top of ear at o2 tubing site Wound Type: pressure ulcer Ewelina Test: Does not Ewelina Pressure Ulcer Stage: I Wound Length: 0.5 Wound Width: 0.5 Percent of Wound [place]/Red: 100 Wound Drainage Description: Serosanguineous Wound Drainage Amount: None Wound Drainage Odor: None/Absent Tissue Surrounding Wound: Erythemic Wound General Appearance: Reddened, Clean/Dry Wound Assessment #2: Wound Number: #2 Wound Present on Admission: No New Wound: Yes Status Change of Wound: No Wound Location Body Site Modif: right Wound Location Body Site: ear - top of ear at o2 tubing site Wound Type: pressure ulcer Ewelina Test: Does not Ewelina Pressure Ulcer Stage: I Wound Length: 0.5 Wound Width: 0.5 Percent of Wound [place]/Red: 100 Wound Drainage Amount: None Wound Drainage Odor: None/Absent Tissue Surrounding Wound: Intact Wound General Appearance: Reddened Wound Assessment #3: Wound Number: #3 Wound Present on Admission: No New Wound: Yes Status Change of Wound: No Wound Location Body Site: sacral Wound Type: pressure ulcer Ewelina Test: Does not Ewelina Pressure Ulcer Stage: I Wound Length: 2.5 Wound Width: 2.5 Percent of Wound [place]/Red: 100 Wound Drainage Amount: None Wound Drainage Odor: None/Absent Tissue Surrounding Wound: Intact Wound General Appearance: Reddened Wound Comment #1 Left top of ear pressure ulcer stage I #2 Right top of ear pressure ulcer stage I. #3 Sacral pressure ulcer stage I. Recommendation. -APPLY SPR LOW AIR LOSS OVERLAY MATTRESS. -Local wound care as ordered. -Turn and reposition. -Keep clean and dry. -APPLY 4X4 GAUZE TO 02 TUBING FOR SKIN MANAGEMENT AND PREVENTION. -Optimize nutrition. -Heel protectors. -Avoid shear and friction. -Assess and notify MD for any change of condition. JEOVANY HOGUE Jan 29, 2017 17:32
[2017-01-29 20:00] VITALS: BP 152/66
--- NOTE | 2017-01-29 22:16 | Pulmonology Progress Note ---
Assessment/Plan Problems: (1) Respiratory failure with hypoxia (2) Acute on chronic renal failure (3) Diabetes mellitus (4) Osteomyelitis of ankle or foot, right, acute Assessment/Plan improving HD in am again check cxr abx as per Id sliding scale stable for med/surg Subjective ROS Limited/Unobtainable: Yes Respiratory: Reports: dry cough Neurologic: Reports: confusion Allergies: Coded Allergies: MORPHINE (Verified Adverse Reaction, Severe, PARADOXICAL REACTION, 10/08/12 ) Objective Last 24 Hour Vital Signs Date Time Temp Pulse Resp B/P Pulse Ox O2 Delivery O2 Flow Rate FiO2 01/29/17 20:00 97.7 80 22 152/66 96 Room Air 01/29/17 19:48 Non-Rebreather 15.0 100 01/29/17 19:48 96 Non-Rebreather 15.0 100 01/29/17 19:47 78 18 Non-Rebreather 15.0 100 01/29/17 17:24 80 152/66 01/29/17 16:00 97.7 80 22 152/66 96 Non-Rebreather 15.0 01/29/17 12:00 97.5 83 26 142/59 95 Non-Rebreather 15.0 01/29/17 08:33 74 145/61 01/29/17 08:00 97.5 70 22 138/62 95 Non-Rebreather 15.0 01/29/17 07:58 Non-Rebreather 15.0 100 01/29/17 07:56 97 Non-Rebreather 15.0 100 01/29/17 07:52 73 18 Non-Rebreather 15.0 100 01/29/17 04:00 98.1 74 24 145/61 96 Non-Rebreather 15.0 01/29/17 00:00 98.1 81 24 148/63 99 Non-Rebreather Intake and Output 01/28/17 01/29/17 19:00 07:00 Intake Total 175 ml 540 ml Output Total 2700 ml 125 ml Balance -2525 ml 415 ml Intake Oral 120 ml 540 ml IV Total 55 ml Output Urine Total 125 ml Hemodialysis UF 2700 ml General Appearance: no acute distress HEENT: normocephalic, atraumatic, PERRL Respiratory/Chest: chest wall non-tender, decreased breath sounds, accessory muscle use, crackles/rales Breasts: no masses Cardiovascular: normal peripheral pulses, normal rate, regular rhythm, no JVD Abdomen: normal bowel sounds, soft, non tender, no organomegaly, non distended Genitourinary: normal external genitalia Extremities: no cyanosis Skin: rash, lesions, ulcers 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, responsive, disoriented Microbiology Date/Time Source Procedure Growth Status 01/28/17 11:45 Other(Specify in comment) Catheter Tip Culture - Preliminary NO GROWTH AFTER 24 HOURS Resulted Laboratory Tests 01/29/17 05:50: White Blood Count 14.7H, Red Blood Count 3.07L, Hemoglobin 9.3L, Hematocrit 27.4L, Mean Corpuscular Volume 89, Mean Corpuscular Hemoglobin 30.4, Mean Corpuscular Hemoglobin Concent 34.0, Red Cell Distribution Width 14.2, Platelet Count 90L, Mean Platelet Volume 7.3, Neutrophils (%) (Auto) , Lymphocytes (%) ( Auto) , Monocytes (%) (Auto) , Eosinophils (%) (Auto) , Basophils (%) (Auto) , Differential Total Cells Counted 100, Neutrophils % (Manual) 80H, Lymphocytes % (Manual) 9L, Monocytes % (Manual) 10, Eosinophils % (Manual) 1, Basophils % ( Manual) 0, Band Neutrophils 0, Platelet Estimate DecreasedL, Platelet Morphology Normal, Hypochromasia 2+, Anisocytosis 1+, Spherocytes 1+, Sodium Level 144, Potassium Level 4.3, Chloride Level 96L, Carbon Dioxide Level 32H, Anion Gap 16H, Blood Urea Nitrogen 54H, Creatinine 5.3H, Estimat Glomerular Filtration Rate , Glucose Level 126H, Uric Acid 4.3, Calcium Level 8.2L, Phosphorus Level 5.1H, Total Bilirubin 0.4, Aspartate Amino Transf (AST/SGOT) 18 , Alanine Aminotransferase (ALT/SGPT) 13, Alkaline Phosphatase 77, C-Reactive Protein, Quantitative 6.3H, Pro-B-Type Natriuretic Peptide 80354Q, Total Protein 5.3L, Albumin 2.9L, Globulin 2.4, Albumin/Globulin Ratio 1.2, Random Vancomycin Level 22.3 Current Medications Medications (Trade) Dose Ordered Sig/Rina Route PRN Reason Start Time Stop Time Status Last Admin Dose Admin Acetaminophen (Tylenol) 650 mg Q6H PRN ORAL Mild Pain/Temp > 100.5 3/22/17 19:00 02/20/17 18:59 Aluminum Hydroxide 1920 mg 1,920 mg Q6HR ORAL 01/26/17 11:00 02/25/17 10:59 01/29/17 11:47 Amlodipine Besylate (Norvasc) 5 mg BID ORAL 01/25/17 18:00 02/24/17 17:59 01/29/17 17:24 Aspirin (Ecotrin) 81 mg DAILY ORAL 01/21/17 09:00 02/20/17 08:59 01/29/17 08:33 Ceftaroline Fosamil/Sodium Chloride (Teflaro/Sodium Chloride) 55 ml @ 55 mls/hr Q12HR IV 01/28/17 12:00 02/04/17 11:59 01/29/17 20:37 Clopidogrel Bisulfate (Plavix) 75 mg DAILY ORAL 01/21/17 09:00 02/20/17 08:59 01/29/17 08:33 Dextrose (Dextrose 50%) STAT PRN IV Hypoglycemia 01/21/17 02:30 02/20/17 02:29 Docusate Sodium (Colace) 100 mg TID ORAL 01/21/17 13:00 02/20/17 12:59 01/29/17 17:24 Heparin Sodium (Porcine) (Heparin 5000 units/ml) 5,000 units EVERY 12 HOURS SUBQ 01/20/17 21:00 02/19/17 20:59 01/22/17 21:52 Insulin Aspart (NovoLOG) BEFORE MEALS AND HS SUBQ 01/20/17 21:00 02/19/17 20:59 01/29/17 11:47 Nitroglycerin (Ntg) 0.4 mg Q5M X 3 DOSES PRN SL Prn Chest Pain 01/20/17 16:45 02/19/17 16:44 Ondansetron HCl (Zofran) 4 mg Q6H PRN IVP Nausea & Vomiting 01/20/17 20:30 02/19/17 20:29 Pantoprazole (Protonix) 40 mg EVERY 12 HOURS ORAL 01/25/17 21:00 02/24/17 20:59 01/29/17 20:37 Polyethylene Glycol (Miralax) 17 gm DAILYPRN PRN ORAL Constipation 01/21/17 02:30 02/20/17 02:29 01/29/17 13:10 Sevelamer Carbonate (Renvela) 2,400 mg THREE TIMES A DAY ORAL 01/23/17 13:00 02/22/17 12:59 01/29/17 13:11 SHYAM NAVA Jan 29, 2017 22:16
[2017-01-30] VITALS (17 sets, daily range): BP systolic 142–170; BP diastolic 58–81
[2017-01-30] MEDS: Aluminum Hydroxide Gel Susp 15ml ORAL SCH ×5 (00:28→23:50)
--- NOTE | 2017-01-30 06:23 | Infectious Diseases Prog Note ---
Assessment/Plan Assessment/Plan ASSESSMENT: 76 y/o female with: // Probable UTI - UCx(-) // Hypoxia, possible HCAP - CXR 01/24: Extensive bilateral interstitial and airspace opacities, unchanged // h/o CoNS bacteremia 11/05 ( 01/09 ) ?real ( PICC tip+ ) vs contaminant r/o recurrence/persistence - surveillance BCx(-) // h/o right ankle cellulitis / osteomyelitis / hardware infection SP incomplete Rx ( recommended to complete 6 weeks IV daptomycin, cefepime ( end ), but daughter apparently declined at last discharge per documentation ) - SP hardware removal 12/15 - no culture sent - 3P bone scan: 3 phase increased activity in region of distal aspect of right fibula compatible with hardware loosening and/or osteomyelitis - XR: surgical hardware seen reducing old healed distal fibular and medial malleolar fractures. No acute fractures. No dislocations. Bones are demineralized. - elevated ESR, CRP - h/o right ankle ORIF // Probable sepsis // Leukocytosis improving // ARF on CKD --> IHD per renal // Dementia // DM2 - HbA1c 6.1% // h/o CAD - trop(-) x1 // NH resident // VRE colonized // No ABX allergies // Full Code PLAN: - cont Teflaro d# 3 ( converage of possible MRSA and avoiding Nephro toxic and due to low Plt ) ( 01/28 SP IV cefepime d# 10 IV Vanco d# 2 ) - monitor CBC, temperatures - monitor BMP - monitor CXR - respiratory support prn - monitor Cx ( Bl, Cath tip ) Subjective Constitutional: Denies: anorexia, chills, drenching sweats, fatigue, fever, no symptoms, other Allergies: Coded Allergies: MORPHINE (Verified Adverse Reaction, Severe, PARADOXICAL REACTION, 10/08/12 ) Objective Vital Signs Last 24 Hour Vital Signs Date Time Temp Pulse Resp B/P Pulse Ox O2 Delivery O2 Flow Rate FiO2 01/30/17 04:00 97.5 76 18 158/58 95 Non-Rebreather 15.0 01/30/17 00:00 97.7 77 19 142/67 98 Non-Rebreather 15.0 01/29/17 20:00 97.7 80 22 152/66 96 Room Air 01/29/17 19:48 Non-Rebreather 15.0 100 01/29/17 19:48 96 Non-Rebreather 15.0 100 01/29/17 19:47 78 18 Non-Rebreather 15.0 100 01/29/17 17:24 80 152/66 01/29/17 16:00 97.7 80 22 152/66 96 Non-Rebreather 15.0 01/29/17 12:00 97.5 83 26 142/59 95 Non-Rebreather 15.0 01/29/17 08:33 74 145/61 01/29/17 08:00 97.5 70 22 138/62 95 Non-Rebreather 15.0 01/29/17 07:58 Non-Rebreather 15.0 100 01/29/17 07:56 97 Non-Rebreather 15.0 100 01/29/17 07:52 73 18 Non-Rebreather 15.0 100 Height (Feet): 5 Height (Inches): 1.00 Weight (Pounds): 200 HEENT: anicteric Respiratory/Chest: no respiratory distress Cardiovascular: regular rhythm Abdomen: non distended Microbiology Date/Time Source Procedure Growth Status 01/28/17 11:45 Other(Specify in comment) Catheter Tip Culture - Preliminary NO GROWTH AFTER 24 HOURS Resulted Current Medications Medications (Trade) Dose Ordered Sig/Rina Route PRN Reason Start Time Stop Time Status Last Admin Dose Admin Acetaminophen (Tylenol) 650 mg Q6H PRN ORAL Mild Pain/Temp > 100.5 01/21/17 19:00 02/20/17 18:59 Aluminum Hydroxide 1920 mg 1,920 mg Q6HR ORAL 01/26/17 11:00 02/25/17 10:59 01/30/17 00:28 Amlodipine Besylate (Norvasc) 5 mg BID ORAL 01/25/17 18:00 02/24/17 17:59 01/29/17 17:24 Aspirin (Ecotrin) 81 mg DAILY ORAL 01/21/17 09:00 02/20/17 08:59 01/29/17 08:33 Ceftaroline Fosamil/Sodium Chloride (Teflaro/Sodium Chloride) 55 ml @ 55 mls/hr Q12HR IV 01/28/17 12:00 02/04/17 11:59 01/29/17 20:37 Clopidogrel Bisulfate (Plavix) 75 mg DAILY ORAL 01/21/17 09:00 02/20/17 08:59 01/29/17 08:33 Dextrose (Dextrose 50%) STAT PRN IV Hypoglycemia 01/21/17 02:30 02/20/17 02:29 Docusate Sodium (Colace) 100 mg TID ORAL 01/21/17 13:00 02/20/17 12:59 01/29/17 17:24 Heparin Sodium (Porcine) (Heparin 5000 units/ml) 5,000 units EVERY 12 HOURS SUBQ 01/20/17 21:00 02/19/17 20:59 01/22/17 21:52 Insulin Aspart (NovoLOG) BEFORE MEALS AND HS SUBQ 01/20/17 21:00 02/19/17 20:59 01/29/17 11:47 Nitroglycerin (Ntg) 0.4 mg Q5M X 3 DOSES PRN SL Prn Chest Pain 01/20/17 16:45 02/19/17 16:44 Ondansetron HCl (Zofran) 4 mg Q6H PRN IVP Nausea & Vomiting 01/20/17 20:30 02/19/17 20:29 Pantoprazole (Protonix) 40 mg EVERY 12 HOURS ORAL 01/25/17 21:00 02/24/17 20:59 01/29/17 20:37 Polyethylene Glycol (Miralax) 17 gm DAILYPRN PRN ORAL Constipation 01/21/17 02:30 02/20/17 02:29 01/29/17 13:10 Sevelamer Carbonate (Renvela) 2,400 mg THREE TIMES A DAY ORAL 01/23/17 13:00 02/22/17 12:59 01/29/17 13:11 GISELLA JEROME M.D. Jan 30, 2017 06:23
[2017-01-30] MEDS: NovoLOG Insulin Flexpen SUBQ SCH ×4 (06:30→20:12)
--- NOTE | 2017-01-30 08:52 | Pulmonology Progress Note ---
Assessment/Plan Assessment/Plan ASSESSMENT Sepsis PNA, likely aspiration probable UTI acute hypoxemic respiratory failure ARF hyperkalemia dysphagia dementia diabetes hx of CAD HTN anemia, s/p blood transfusion PLAN OF CARE MS floor abx ID follows all cx UTD negative O2 HHN prn ARF likely 2 to diabetic nephropathy and HTN nephro follows HD as per nephro monitor renal parameters, lytes renal US unremarkable s/p tunneled catheter placement 01/29 continue ASA, Plavix BS management with SS of insulin , HgA1c at goal-.7 swallow eval done, recommended VSS and diet for quality of life with strict aspiration precautions and reflux measures PT/OT/ST DVT/GI prophylaxis case discussed and evaluated by supervising physician Subjective Allergies: Coded Allergies: MORPHINE (Verified Adverse Reaction, Severe, PARADOXICAL REACTION, 10/08/12 ) Subjective leukocytosis trending down, afebrile remained on 100% NRM until this am when downgraded to 8L via FM pulse oximetry stable Objective Last 24 Hour Vital Signs Date Time Temp Pulse Resp B/P Pulse Ox O2 Delivery O2 Flow Rate FiO2 01/30/17 04:00 97.5 76 18 158/58 95 Non-Rebreather 15.0 01/30/17 00:00 97.7 77 19 142/67 98 Non-Rebreather 15.0 01/29/17 20:00 97.7 80 22 152/66 96 Room Air 01/29/17 19:48 Non-Rebreather 15.0 100 01/29/17 19:48 96 Non-Rebreather 15.0 100 01/29/17 19:47 78 18 Non-Rebreather 15.0 100 01/29/17 17:24 80 152/66 01/29/17 16:00 97.7 80 22 152/66 96 Non-Rebreather 15.0 01/29/17 12:00 97.5 83 26 142/59 95 Non-Rebreather 15.0 Intake and Output 01/29/17 01/30/17 19:00 07:00 Intake Total 55 ml 315 ml Output Total 0 ml Balance 55 ml 315 ml Intake Oral 260 ml IV Total 55 ml 55 ml Output Urine Total 0 ml General Appearance: other - awake, moaning, poorly responsive, bedridden obese chronically ill looking female HEENT: normocephalic, atraumatic, other - FM 8L on Respiratory/Chest: chest wall non-tender, no accessory muscle use, decreased breath sounds Cardiovascular: normal rate, regular rhythm, no JVD Abdomen: normal bowel sounds, soft, non tender - obese Extremities: other - tarce edema BLE 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: abnormal gait, other - open eyes spontaneously, moans, poorly responsive, stiff LE Musculoskeletal: atrophy - BLE Microbiology Date/Time Source Procedure Growth Status 01/28/17 11:45 Other(Specify in comment) Catheter Tip Culture - Preliminary NO GROWTH AFTER 24 HOURS Resulted Current Medications Medications (Trade) Dose Ordered Sig/Rina Route PRN Reason Start Time Stop Time Status Last Admin Dose Admin Acetaminophen (Tylenol) 650 mg Q6H PRN ORAL Mild Pain/Temp > 100.5 01/21/17 19:00 02/20/17 18:59 Aluminum Hydroxide 1920 mg 1,920 mg Q6HR ORAL 01/26/17 11:00 02/25/17 10:59 01/30/17 00:28 Amlodipine Besylate (Norvasc) 5 mg BID ORAL 01/25/17 18:00 02/24/17 17:59 01/29/17 17:24 Aspirin (Ecotrin) 81 mg DAILY ORAL 01/21/17 09:00 02/20/17 08:59 01/29/17 08:33 Ceftaroline Fosamil/Sodium Chloride (Teflaro/Sodium Chloride) 55 ml @ 55 mls/hr Q12HR IV 01/28/17 12:00 02/04/17 11:59 01/29/17 20:37 Clopidogrel Bisulfate (Plavix) 75 mg DAILY ORAL 01/21/17 09:00 02/20/17 08:59 01/29/17 08:33 Dextrose (Dextrose 50%) STAT PRN IV Hypoglycemia 01/21/17 02:30 02/20/17 02:29 Docusate Sodium (Colace) 100 mg TID ORAL 01/21/17 13:00 02/20/17 12:59 01/29/17 17:24 Heparin Sodium (Porcine) (Heparin 5000 units/ml) 5,000 units EVERY 12 HOURS SUBQ 01/20/17 21:00 02/19/17 20:59 01/22/17 21:52 Insulin Aspart (NovoLOG) BEFORE MEALS AND HS SUBQ 01/20/17 21:00 02/19/17 20:59 01/29/17 11:47 Nitroglycerin (Ntg) 0.4 mg Q5M X 3 DOSES PRN SL Prn Chest Pain 01/20/17 16:45 02/19/17 16:44 Ondansetron HCl (Zofran) 4 mg Q6H PRN IVP Nausea & Vomiting 01/20/17 20:30 02/19/17 20:29 Pantoprazole (Protonix) 40 mg EVERY 12 HOURS ORAL 01/25/17 21:00 02/24/17 20:59 01/29/17 20:37 Polyethylene Glycol (Miralax) 17 gm DAILYPRN PRN ORAL Constipation 01/21/17 02:30 02/20/17 02:29 01/29/17 13:10 Sevelamer Carbonate (Renvela) 2,400 mg THREE TIMES A DAY ORAL 01/23/17 13:00 02/22/17 12:59 01/29/17 13:11 [facility]ozoRock[facility] CenterMelanie Fernandes NP Jan 30, 2017 08:52
[2017-01-30] MEDS: Ceftaroline 200 MG in NS 55 ML IV SCH ×2 (08:57→20:11)
[2017-01-30] MEDS: Docusate 100mg tablet ORAL SCH ×3 (08:58→17:36)
[2017-01-30] MEDS: Aspirin EC 81mg tab ORAL SCH (08:58)
[2017-01-30] MEDS: Heparin 5000 units/ml inj SUBQ SCH ×2 (09:00→20:12)
[2017-01-30 09:29] LABS: ABG BASE EXCESS 7.2; ABG PCO2 52.5 mmHg (35.0-45.0)
[2017-01-30 09:30] LABS: ABG ALLEN TEST POSITIVE
[2017-01-30 10:11] LABS: MEAN CORPUSCULAR HEMOGLOBIN 29.4 PG (27.0-31.0); MEAN CORPUSCULAR HGB CONC 32.8 G/DL (32.0-36.0); MEAN CORPUSCULAR VOLUME 90 FL (80-99); MEAN PLATELET VOLUME 6.9 FL (6.5-10.1); PLATELET COUNT 112 K/UL (150-450); RED BLOOD COUNT 3.25 M/UL (4.20-5.40); WHITE BLOOD COUNT 15.5 K/UL (4.8-10.8)
[2017-01-30 10:31] LABS: ANION GAP 17 (5-15); CALCIUM 8.4 mg/dL (8.6-10.2); CARBON DIOXIDE 31 mEQ/L (20-30); CHLORIDE 97 mEQ/L (98-107); CREATININE 6.7 mg/dL (0.5-0.9); HEMOLYSIS 0; POTASSIUM 4.9 mEQ/L (3.4-4.9); SODIUM 145 mEQ/L (135-145)
[2017-01-30] MEDS ORDERED: Sodium Bicarbonate 8.4% 50ml Inj ONE (10:56)
[2017-01-30] MEDS ORDERED: Lidocaine 1% 10mg/ml/Epi 0.005mg/ml 30ml vial INJ ONE ×2 (10:56→12:00)
[2017-01-30] MEDS ORDERED: Heparin 2000 units/Ns 1000ml 1,000 ML ONE (10:57)
[2017-01-30 11:12] LABS: BAND NEUTROPHILS % (MANUAL) 0 % (0-8); BASOPHILS % (MANUAL) 0 % (0-2); EOSINOPHILS % (MANUAL) 3 % (0-3); LYMPHOCYTES % (MANUAL) 12 % (20-45); NEUTROPHILS % (MANUAL) 77 % (45-75); PLATELET ESTIMATE DECREASED; PLATELET MORPHOLOGY NORMAL; TOTAL CELLS COUNTED 100
[2017-01-30] MEDS ORDERED: Heparin Sod 1000 units/ml 10ml ONE (11:35)
[2017-01-30] MEDS ORDERED: Heparin 5000 units/ml inj INJ ONE (12:00)
--- NOTE | 2017-01-30 12:23 | General Progress Note ---
Assessment/Plan Status: unchanged Assessment/Plan ( Had long talk with daughter Gali 01/19 ) - Acute renal failure and hyperKalemia - Renal failure, likely diabetic nephropathy / HTN - Sepsis , Pneumonia, Respiratory failure and Hypoxia other - h/o Cellulitis in diabetic foot right LE - Decubitus ulcer - Dementia - Diabetes mellitus - Nonpressure ulcer to level of fascia right lateral ankle - S/P ORIF right ankle Plan: due for cath placement today and dialysis in am Last HD 01/28 monitor WBCs Monitor renal parameters and Vanco level- ARTUR Kidney done last admission- unremarkable Adjust BP meds- increase Norvasc- Tunneled catheter placement- on hold for high WBCs Avoid Nephrotoxics- discussed with CM Per orders Subjective ROS Limited/Unobtainable: No Constitutional: Reports: malaise Allergies: Coded Allergies: MORPHINE (Verified Adverse Reaction, Severe, PARADOXICAL REACTION, 10/08/12 ) Objective Last 24 Hour Vital Signs Date Time Temp Pulse Resp B/P Pulse Ox O2 Delivery O2 Flow Rate FiO2 01/30/17 12:14 78 25 8.0 01/30/17 12:07 78 25 8.0 01/30/17 12:05 78 25 155/81 94 Simple Mask 8.0 01/30/17 11:50 73 29 163/70 95 Simple Mask 8.0 01/30/17 11:48 73 30 8.0 01/30/17 11:47 73 30 8.0 01/30/17 11:35 74 24 169/70 95 Simple Mask 8.0 01/30/17 11:30 70 27 170/80 93 Simple Mask 8.0 01/30/17 11:29 30 8.0 01/30/17 11:22 73 30 160/80 91 Simple Mask 8.0 01/30/17 08:58 76 158/58 01/30/17 04:00 97.5 76 18 158/58 95 Non-Rebreather 15.0 01/30/17 00:00 97.7 77 19 142/67 98 Non-Rebreather 15.0 01/29/17 20:00 97.7 80 22 152/66 96 Room Air 01/29/17 19:48 Non-Rebreather 15.0 100 01/29/17 19:48 96 Non-Rebreather 15.0 100 01/29/17 19:47 78 18 Non-Rebreather 15.0 100 01/29/17 17:24 80 152/66 01/29/17 16:00 97.7 80 22 152/66 96 Non-Rebreather 15.0 Intake and Output 01/29/17 01/30/17 19:00 07:00 Intake Total 55 ml 315 ml Output Total 0 ml Balance 55 ml 315 ml Intake Oral 260 ml IV Total 55 ml 55 ml Output Urine Total 0 ml Laboratory Tests 01/30/17 08:52: Arterial Blood pH 7.410, Arterial Blood Partial Pressure CO2 52.5H, Arterial Blood Partial Pressure O2 71.3L, Arterial Blood HCO3 32.8H, Arterial Blood Oxygen Saturation 92.7, Arterial Blood Base Excess 7.2, Levy Test Positive 01/30/17 09:40: White Blood Count 15.5H, Red Blood Count 3.25L, Hemoglobin 9.6L, Hematocrit 29.2L, Mean Corpuscular Volume 90, Mean Corpuscular Hemoglobin 29.4, Mean Corpuscular Hemoglobin Concent 32.8, Red Cell Distribution Width 14.0, Platelet Count 112L, Mean Platelet Volume 6.9, Neutrophils (%) (Auto) , Lymphocytes (%) ( Auto) , Monocytes (%) (Auto) , Eosinophils (%) (Auto) , Basophils (%) (Auto) , Differential Total Cells Counted 100, Neutrophils % (Manual) 77H, Lymphocytes % (Manual) 12L, Monocytes % (Manual) 8, Eosinophils % (Manual) 3, Basophils % ( Manual) 0, Band Neutrophils 0, Platelet Estimate DecreasedL, Platelet Morphology Normal, Red Blood Cell Morphology Normal, Sodium Level 145, Potassium Level 4.9, Chloride Level 97L, Carbon Dioxide Level 31H, Anion Gap 17H , Blood Urea Nitrogen 77H, Creatinine 6.7H, Estimat Glomerular Filtration Rate , Glucose Level 136H, Calcium Level 8.4L Height (Feet): 5 Height (Inches): 1.00 Weight (Pounds): 200 General Appearance: no apparent distress Objective other PE not changed BERTRAM CASTAÑEDA Jan 30, 2017 12:23
--- NOTE | 2017-01-30 13:42 | Diagnostic Imaging Report ---
Indication: Dyspnea Comparison: 01/26/17 A single view chest radiograph was obtained. Findings: Right permacath was placed. Extensive infiltrates versus pulmonary edema again noted. Heart is enlarged and stable. Impression: Catheter in good position. Extensive bilateral infiltrates versus pulmonary
--- NOTE | 2017-01-30 15:45 | Diagnostic Imaging Report ---
Indication: Patient requires long-term hemodialysis. Findings: After the indications, procedure, risks, complications, and alternatives of the procedure were explained, written informed consent was obtained. Patient was brought to the angio-fluoroscopic suite and placed supine on the table. All elements of maximum sterile barrier technique were followed including use of a cap and mask, sterile gown, sterile gloves, and a large sterile sheet. Alcohol used to prep the skin. 1% lidocaine was used to anesthetize the skin and subcutaneous tissue. Sonographic evaluation of the the right jugular vein was performed demonstrating a patent and compressible vein. Access using an 18 gauge needle was obtained under real-time ultrasound guidance and digital image was saved in archive. An 035 wire was then advanced into the vein and negotiated fluoroscopically into the inferior vena cava. Lidocaine infiltration of the right anterior chest wall was then performed followed by dermatotomy. A tunnel of lidocaine was then made between this site and the venous puncture site. A 14.5 wallisian 19 cm dual-lumen catheter was then tunneled through the tract. The wire within the jugular vein was then exchanged for a dilator. Serial dilatations were performed. The catheter was then inserted into the last dilator/peel-away sheath such that the tip resides in the SVC. The dilator/peel-away sheath and wire were removed and the catheter was completely buried under the skin. Proximal portion of the catheter was secured to the skin using 2-0 Prolene suture. Both ports aspirate and flush easily. Both dermatotomy sites were closed with Dermabond. Total fluoroscopic time 0.3 minutes. Impression: Successful placement of tunneled right jugular hemodialysis catheter. No complications.
[2017-01-30] MEDS: Norco 5mg/325mg tab ORAL PRN (20:12)
[2017-01-31] VITALS (7 sets, daily range): BP systolic 100–173; BP diastolic 46–81
[2017-01-31] MEDS: Aluminum Hydroxide Gel Susp 15ml ORAL SCH ×3 (06:00→18:34)
[2017-01-31] MEDS: NovoLOG Insulin Flexpen SUBQ SCH ×4 (06:30→22:09)
[2017-01-31 07:05] LABS: ALANINE AMINOTRANSFERASE 14 U/L (3-33); ALBUMIN/GLOBULIN RATIO 1.2 (1.0-2.7); ANION GAP 23 (5-15); ASPARTATE AMINO TRANSFERASE 19 U/L (5-40); CALCIUM 8.2 mg/dL (8.6-10.2); CARBON DIOXIDE 27 mEQ/L (20-30); CHLORIDE 96 mEQ/L (98-107); CREATININE 8.2 mg/dL (0.5-0.9); CRP QUANT 4.9 mg/dL (< 0.5); HEMOLYSIS 5; PHOSPHORUS 9.3 mg/dL (2.5-4.8); POTASSIUM 5.2 mEQ/L (3.4-4.9); SODIUM 146 mEQ/L (135-145); TOTAL PROTEIN 5.6 g/dL (6.6-8.7); URIC ACID 8.2 mg/dL (3.0-7.5)
[2017-01-31 07:08] LABS: MEAN CORPUSCULAR HEMOGLOBIN 29.4 PG (27.0-31.0); MEAN CORPUSCULAR HGB CONC 32.3 G/DL (32.0-36.0); MEAN CORPUSCULAR VOLUME 91 FL (80-99); MEAN PLATELET VOLUME 6.3 FL (6.5-10.1); PLATELET COUNT 130 K/UL (150-450); RED BLOOD COUNT 3.13 M/UL (4.20-5.40); RED CELL DISTRIBUTION WIDTH 14.7 % (11.6-14.8); WHITE BLOOD COUNT 14.2 K/UL (4.8-10.8)
[2017-01-31] MEDS: Heparin 5000 units/ml inj SUBQ SCH ×2 (09:00→21:00)
[2017-01-31] MEDS: Ceftaroline 200 MG in NS 55 ML IV SCH ×2 (09:35→21:00)
[2017-01-31] MEDS: Docusate 100mg tablet ORAL SCH ×3 (09:36→18:34)
[2017-01-31] MEDS: Aspirin EC 81mg tab ORAL SCH (09:37)
[2017-01-31 10:02] LABS: ANISOCYTOSIS 1+; BAND NEUTROPHILS % (MANUAL) 0 % (0-8); BASOPHILS % (MANUAL) 0 % (0-2); EOSINOPHILS % (MANUAL) 0 % (0-3); HYPOCHROMASIA 1+; LYMPHOCYTES % (MANUAL) 7 % (20-45); NEUTROPHILS % (MANUAL) 89 % (45-75); PLATELET ESTIMATE DECREASED; PLATELET MORPHOLOGY NORMAL; TOTAL CELLS COUNTED 100
--- NOTE | 2017-01-31 11:46 | Pulmonology Progress Note ---
Assessment/Plan Assessment/Plan ASSESSMENT Sepsis PNA, likely aspiration probable UTI acute hypoxemic respiratory failure ARF hyperkalemia dysphagia dementia diabetes hx of CAD HTN anemia, s/p blood transfusion PLAN OF CARE MS floor abx ID follows all cx UTD negative O2 HHN prn ARF likely 2 to diabetic nephropathy and HTN nephro follows HD as per nephro s/p insertion of non-tunneled HD catheter monitor renal parameters, lytes renal US unremarkable continue ASA, Plavix BS management with SS of insulin , HgA1c at goal-.7 swallow eval done, recommended VSS and diet for quality of life with strict aspiration precautions and reflux measures PT/OT/ST DVT/GI prophylaxis case discussed and evaluated by supervising physician Subjective Allergies: Coded Allergies: MORPHINE (Verified Adverse Reaction, Severe, PARADOXICAL REACTION, 10/08/12 ) Subjective leukocytosis trending down, afebrile on FM 10L pulse oximetry stable HD in progress Objective Last 24 Hour Vital Signs Date Time Temp Pulse Resp B/P Pulse Ox O2 Delivery O2 Flow Rate FiO2 01/31/17 09:15 Simple Mask 15.0 01/31/17 09:14 97.0 74 21 119/54 92 Simple Mask 15.0 01/31/17 08:00 97.5 68 18 110/46 91 Simple Mask 10.0 01/31/17 06:47 92 Simple Mask 15.0 01/31/17 06:47 Simple Mask 15.0 01/31/17 06:47 68 18 Simple Mask 15.0 92 01/31/17 05:30 Simple Mask 15.0 01/31/17 05:30 97.3 76 20 173/81 91 Simple Mask 10.0 01/31/17 04:00 98.6 80 20 158/70 91 Simple Mask 01/30/17 23:52 98.6 78 22 157/64 92 Simple Mask 01/30/17 19:57 97.6 88 19 152/78 98 Simple Mask 15.0 01/30/17 19:41 Simple Mask 10.0 95 01/30/17 19:40 95 Simple Mask 10.0 95 01/30/17 19:40 78 20 Simple Mask 10.0 95 01/30/17 17:30 82 154/81 01/30/17 15:48 97.7 82 19 154/81 96 Nasal Cannula 12.0 01/30/17 12:14 78 25 8.0 01/30/17 12:07 78 25 8.0 01/30/17 12:05 78 25 155/81 94 Simple Mask 8.0 01/30/17 12:00 97.3 76 22 145/59 92 01/30/17 11:50 73 29 163/70 95 Simple Mask 8.0 01/30/17 11:48 73 30 8.0 01/30/17 11:47 73 30 8.0 Intake and Output 01/30/17 01/31/17 19:00 07:00 Intake Total 55 ml Output Total 50 ml Balance 5 ml IV Total 55 ml Output Urine Total 50 ml # Bowel Movements 2 Objective General Appearance: other - awake, moaning, poorly responsive, bedridden obese chronically ill looking female HEENT: normocephalic, atraumatic, FM on Respiratory/Chest: chest wall non-tender, no accessory muscle use, decreased breath sounds, R subclavian HD catheter Cardiovascular: normal rate, regular rhythm, no JVD Abdomen: normal bowel sounds, soft, non tender - obese Extremities: other - tarce edema BLE 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: abnormal gait, other - open eyes spontaneously, moans, poorly responsive, stiff LE Musculoskeletal: atrophy - BLE Microbiology Date/Time Source Procedure Growth Status 01/28/17 11:45 Other(Specify in comment) Catheter Tip Culture - Preliminary NO GROWTH AFTER 72 HOURS Resulted Laboratory Tests 01/31/17 05:20: White Blood Count 14.2H, Red Blood Count 3.13L, Hemoglobin 9.2L, Hematocrit 28.6L, Mean Corpuscular Volume 91, Mean Corpuscular Hemoglobin 29.4, Mean Corpuscular Hemoglobin Concent 32.3, Red Cell Distribution Width 14.7, Platelet Count 130L, Mean Platelet Volume 6.3L, Neutrophils (%) (Auto) , Lymphocytes (%) (Auto) , Monocytes (%) (Auto) , Eosinophils (%) (Auto) , Basophils (%) (Auto) , Differential Total Cells Counted 100, Neutrophils % (Manual) 89H, Lymphocytes % (Manual) 7L, Monocytes % (Manual) 4, Eosinophils % (Manual) 0, Basophils % ( Manual) 0, Band Neutrophils 0, Platelet Estimate DecreasedL, Platelet Morphology Normal, Hypochromasia 1+, Anisocytosis 1+, Sodium Level 146H, Potassium Level 5.2H, Chloride Level 96L, Carbon Dioxide Level 27, Anion Gap 23H , Blood Urea Nitrogen 98H, Creatinine 8.2H, Estimat Glomerular Filtration Rate , Glucose Level 159H, Uric Acid 8.2H, Calcium Level 8.2L, Phosphorus Level 9.3H , Total Bilirubin 0.3, Gamma Glutamyl Transpeptidase 22, Aspartate Amino Transf (AST/SGOT) 19, Alanine Aminotransferase (ALT/SGPT) 14, Alkaline Phosphatase 76, C-Reactive Protein, Quantitative 4.9H, Pro-B-Type Natriuretic Peptide 01582S, Total Protein 5.6L, Albumin 3.1L, Globulin 2.5, Albumin/Globulin Ratio 1.2, Random Vancomycin Level 20.3 Current Medications Medications (Trade) Dose Ordered Sig/Rina Route PRN Reason Start Time Stop Time Status Last Admin Dose Admin Acetaminophen (Tylenol) 650 mg Q6H PRN ORAL Mild Pain/Temp > 100.5 01/21/17 19:00 02/20/17 18:59 Acetaminophen/ Hydrocodone Bitart ([place] 5/325) 1 tab Q4H PRN ORAL Moderate Pain (Pain Scale 4-6) 01/30/17 19:45 02/06/17 19:44 01/30/17 20:12 Aluminum Hydroxide 1920 mg 1,920 mg Q6HR ORAL 01/26/17 11:00 02/25/17 10:59 01/30/17 12:59 Amlodipine Besylate (Norvasc) 5 mg BID ORAL 01/25/17 18:00 02/24/17 17:59 01/30/17 17:30 Aspirin (Ecotrin) 81 mg DAILY ORAL 01/21/17 09:00 02/20/17 08:59 01/31/17 09:37 Ceftaroline Fosamil/Sodium Chloride (Teflaro/Sodium Chloride) 55 ml @ 55 mls/hr Q12HR IV 01/28/17 12:00 02/04/17 11:59 01/31/17 09:35 Clopidogrel Bisulfate (Plavix) 75 mg DAILY ORAL 01/21/17 09:00 02/20/17 08:59 01/31/17 09:36 Dextrose (Dextrose 50%) STAT PRN IV Hypoglycemia 01/21/17 02:30 02/20/17 02:29 Docusate Sodium (Colace) 100 mg TID ORAL 01/21/17 13:00 02/20/17 12:59 01/31/17 09:36 Heparin Sodium (Porcine) (Heparin 5000 units/ml) 5,000 units EVERY 12 HOURS SUBQ 01/20/17 21:00 02/19/17 20:59 01/22/17 21:52 Insulin Aspart (NovoLOG) BEFORE MEALS AND HS SUBQ 01/20/17 21:00 02/19/17 20:59 01/29/17 11:47 Nitroglycerin (Ntg) 0.4 mg Q5M X 3 DOSES PRN SL Prn Chest Pain 01/20/17 16:45 02/19/17 16:44 Ondansetron HCl (Zofran) 4 mg Q6H PRN IVP Nausea & Vomiting 01/20/17 20:30 02/19/17 20:29 Pantoprazole (Protonix) 40 mg EVERY 12 HOURS ORAL 01/25/17 21:00 02/24/17 20:59 01/31/17 09:36 Polyethylene Glycol (Miralax) 17 gm DAILYPRN PRN ORAL Constipation 01/21/17 02:30 02/20/17 02:29 01/29/17 13:10 Sevelamer Carbonate (Renvela) 2,400 mg THREE TIMES A DAY ORAL 01/23/17 13:00 02/22/17 12:59 01/31/17 09:36 Melanie Savage NP ([facility]) Jan 31, 2017 11:46
--- NOTE | 2017-01-31 11:57 | General Progress Note ---
Assessment/Plan Status: stable Status Narrative dialysed today Assessment/Plan ( Had long talk with daughter Gali 01/19 ) - Acute renal failure and hyperKalemia - Renal failure, likely diabetic nephropathy / HTN - Sepsis , Pneumonia, Respiratory failure and Hypoxia other - h/o Cellulitis in diabetic foot right LE - Decubitus ulcer - Dementia - Diabetes mellitus - Nonpressure ulcer to level of fascia right lateral ankle - S/P ORIF right ankle Plan: Had permacath 01/30 Last HD 01/31 next 02/02 monitor WBCs Monitor renal parameters and Vanco level- ARTUR Kidney done last admission- unremarkable Adjust BP meds- Avoid Nephrotoxics- discussed with CM Per orders Subjective ROS Limited/Unobtainable: No Constitutional: Reports: malaise Allergies: Coded Allergies: MORPHINE (Verified Adverse Reaction, Severe, PARADOXICAL REACTION, 10/08/12 ) Objective Last 24 Hour Vital Signs Date Time Temp Pulse Resp B/P Pulse Ox O2 Delivery O2 Flow Rate FiO2 01/31/17 09:15 Simple Mask 15.0 01/31/17 09:14 97.0 74 21 119/54 92 Simple Mask 15.0 01/31/17 08:00 97.5 68 18 110/46 91 Simple Mask 10.0 01/31/17 06:47 92 Simple Mask 15.0 01/31/17 06:47 Simple Mask 15.0 01/31/17 06:47 68 18 Simple Mask 15.0 92 01/31/17 05:30 Simple Mask 15.0 01/31/17 05:30 97.3 76 20 173/81 91 Simple Mask 10.0 01/31/17 04:00 98.6 80 20 158/70 91 Simple Mask 01/30/17 23:52 98.6 78 22 157/64 92 Simple Mask 01/30/17 19:57 97.6 88 19 152/78 98 Simple Mask 15.0 01/30/17 19:41 Simple Mask 10.0 95 01/30/17 19:40 95 Simple Mask 10.0 95 01/30/17 19:40 78 20 Simple Mask 10.0 95 01/30/17 17:30 82 154/81 01/30/17 15:48 97.7 82 19 154/81 96 Nasal Cannula 12.0 01/30/17 12:14 78 25 8.0 3/31/17 12:07 78 25 8.0 01/30/17 12:05 78 25 155/81 94 Simple Mask 8.0 01/30/17 12:00 97.3 76 22 145/59 92 Intake and Output 01/30/17 01/31/17 19:00 07:00 Intake Total 55 ml Output Total 50 ml Balance 5 ml IV Total 55 ml Output Urine Total 50 ml # Bowel Movements 2 Laboratory Tests 01/31/17 05:20: White Blood Count 14.2H, Red Blood Count 3.13L, Hemoglobin 9.2L, Hematocrit 28.6L, Mean Corpuscular Volume 91, Mean Corpuscular Hemoglobin 29.4, Mean Corpuscular Hemoglobin Concent 32.3, Red Cell Distribution Width 14.7, Platelet Count 130L, Mean Platelet Volume 6.3L, Neutrophils (%) (Auto) , Lymphocytes (%) (Auto) , Monocytes (%) (Auto) , Eosinophils (%) (Auto) , Basophils (%) (Auto) , Differential Total Cells Counted 100, Neutrophils % (Manual) 89H, Lymphocytes % (Manual) 7L, Monocytes % (Manual) 4, Eosinophils % (Manual) 0, Basophils % ( Manual) 0, Band Neutrophils 0, Platelet Estimate DecreasedL, Platelet Morphology Normal, Hypochromasia 1+, Anisocytosis 1+, Sodium Level 146H, Potassium Level 5.2H, Chloride Level 96L, Carbon Dioxide Level 27, Anion Gap 23H , Blood Urea Nitrogen 98H, Creatinine 8.2H, Estimat Glomerular Filtration Rate , Glucose Level 159H, Uric Acid 8.2H, Calcium Level 8.2L, Phosphorus Level 9.3H , Total Bilirubin 0.3, Gamma Glutamyl Transpeptidase 22, Aspartate Amino Transf (AST/SGOT) 19, Alanine Aminotransferase (ALT/SGPT) 14, Alkaline Phosphatase 76, C-Reactive Protein, Quantitative 4.9H, Pro-B-Type Natriuretic Peptide 76500D, Total Protein 5.6L, Albumin 3.1L, Globulin 2.5, Albumin/Globulin Ratio 1.2, Random Vancomycin Level 20.3 Height (Feet): 5 Height (Inches): 1.00 Weight (Pounds): 200 General Appearance: no apparent distress Objective other PE not changed BERTRAM CASTAÑEDA Jan 31, 2017 11:57
[2017-02-01] VITALS: BP 158/83
[2017-02-01 04:00] VITALS: BP 140/81
[2017-02-01] MEDS: Aluminum Hydroxide Gel Susp 15ml ORAL SCH ×5 (06:10→23:59)
[2017-02-01] MEDS: NovoLOG Insulin Flexpen SUBQ SCH ×4 (06:13→21:19)
[2017-02-01 08:00] VITALS: BP 151/87
[2017-02-01] MEDS: Aspirin EC 81mg tab ORAL SCH (08:40)
[2017-02-01] MEDS: Docusate 100mg tablet ORAL SCH ×3 (08:41→17:56)
[2017-02-01] MEDS: Heparin 5000 units/ml inj SUBQ SCH ×2 (08:42→20:46)
[2017-02-01] MEDS: Ceftaroline 200 MG in NS 55 ML IV SCH ×2 (08:42→21:14)
--- NOTE | 2017-02-01 10:11 | General Progress Note ---
Assessment/Plan Status: unchanged Status Narrative NOT EATING Assessment/Plan ( Had long talk with daughter Gali 01/19 ) - Acute renal failure and hyperKalemia - Renal failure, likely diabetic nephropathy / HTN - Sepsis , Pneumonia, Respiratory failure and Hypoxia other - h/o Cellulitis in diabetic foot right LE - Decubitus ulcer - Dementia - Diabetes mellitus - Nonpressure ulcer to level of fascia right lateral ankle - S/P ORIF right ankle Plan: Poor po is the main issue ? PEG? Had permacath 01/30 Last HD 01/31 next 02/02 monitor WBCs Monitor renal parameters and Vanco level- ARTUR Kidney done last admission- unremarkable Adjust BP meds- Avoid Nephrotoxics- discussed with CM Per orders Subjective ROS Limited/Unobtainable: No Constitutional: Reports: malaise Allergies: Coded Allergies: MORPHINE (Verified Adverse Reaction, Severe, PARADOXICAL REACTION, 10/08/12 ) Objective Last 24 Hour Vital Signs Date Time Temp Pulse Resp B/P Pulse Ox O2 Delivery O2 Flow Rate FiO2 02/01/17 08:41 86 151/87 02/01/17 04:00 97.2 76 20 140/81 93 02/01/17 00:00 97.5 80 20 158/83 96 Simple Mask 01/31/17 20:00 97.3 85 20 155/64 94 Simple Mask 15.0 01/31/17 19:30 70 20 Non-Rebreather 15.0 93 01/31/17 19:30 Non-Rebreather 15.0 100 01/31/17 19:30 93 Non-Rebreather 15.0 100 01/31/17 18:34 78 162/67 01/31/17 16:00 97.5 78 18 162/67 95 Simple Mask 15.0 01/31/17 12:20 97.8 71 19 100/74 100 Simple Mask 15.0 Intake and Output 01/31/17 02/01/17 19:00 07:00 Intake Total 100 ml 80 ml Output Total 1400 ml Balance -1300 ml 80 ml Intake Oral 100 ml 80 ml Hemodialysis UF 1400 ml # Voids 100 160 # Bowel Movements 1 Height (Feet): 5 Height (Inches): 1.00 Weight (Pounds): 200 General Appearance: no apparent distress, lethargic Respiratory/Chest: decreased breath sounds Abdomen: soft Objective other PE not changed BERTRAM CASTAÑEDA Feb 01, 2017 10:11
[2017-02-01 12:00] VITALS: BP 155/84
--- NOTE | 2017-02-01 12:19 | Infectious Diseases Prog Note ---
Assessment/Plan Assessment/Plan A: Pneumonia UTI ESRD started on HD DM history of ankle fracture P: continue Teflaro Subjective ROS Limited/Unobtainable: Yes Allergies: Coded Allergies: MORPHINE (Verified Adverse Reaction, Severe, PARADOXICAL REACTION, 10/08/12 ) Objective Vital Signs Last 24 Hour Vital Signs Date Time Temp Pulse Resp B/P Pulse Ox O2 Delivery O2 Flow Rate FiO2 02/01/17 08:41 86 151/87 02/01/17 08:39 75 20 Non-Rebreather 15.0 96 02/01/17 08:39 96 Non-Rebreather 15.0 100 02/01/17 08:39 Non-Rebreather 15.0 100 02/01/17 08:00 97.2 94 19 151/87 100 Simple Mask 15.0 02/01/17 04:00 97.2 76 20 140/81 93 02/01/17 00:00 97.5 80 20 158/83 96 Simple Mask 01/31/17 20:00 97.3 85 20 155/64 94 Simple Mask 15.0 01/31/17 19:30 70 20 Non-Rebreather 15.0 93 01/31/17 19:30 Non-Rebreather 15.0 100 01/31/17 19:30 93 Non-Rebreather 15.0 100 01/31/17 18:34 78 162/67 01/31/17 16:00 97.5 78 18 162/67 95 Simple Mask 15.0 01/31/17 12:20 97.8 71 19 100/74 100 Simple Mask 15.0 Height (Feet): 5 Height (Inches): 1.00 Weight (Pounds): 200 HEENT: other - O2 by rebreathing mask Respiratory/Chest: decreased breath sounds Cardiovascular: normal rate Abdomen: soft, non tender Extremities: no edema 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: alert, responsive Current Medications Medications (Trade) Dose Ordered Sig/Rina Route PRN Reason Start Time Stop Time Status Last Admin Dose Admin Acetaminophen (Tylenol) 650 mg Q6H PRN ORAL Mild Pain/Temp > 100.5 01/21/17 19:00 02/20/17 18:59 Acetaminophen/ Hydrocodone Bitart ([place] 5/325) 1 tab Q4H PRN ORAL Moderate Pain (Pain Scale 4-6) 01/30/17 19:45 02/06/17 19:44 01/30/17 20:12 Aluminum Hydroxide 1920 mg 1,920 mg Q6HR ORAL 01/26/17 11:00 02/25/17 10:59 02/01/17 06:10 Amlodipine Besylate (Norvasc) 5 mg BID ORAL 01/25/17 18:00 02/24/17 17:59 02/01/17 08:41 Aspirin (Ecotrin) 81 mg DAILY ORAL 01/21/17 09:00 02/20/17 08:59 02/01/17 08:40 Ceftaroline Fosamil/Sodium Chloride (Teflaro/Sodium Chloride) 55 ml @ 55 mls/hr Q12HR IV 01/28/17 12:00 02/04/17 11:59 02/01/17 08:42 Clopidogrel Bisulfate (Plavix) 75 mg DAILY ORAL 01/21/17 09:00 02/20/17 08:59 02/01/17 08:41 Dextrose (Dextrose 50%) STAT PRN IV Hypoglycemia 01/21/17 02:30 02/20/17 02:29 Docusate Sodium (Colace) 100 mg TID ORAL 01/21/17 13:00 02/20/17 12:59 02/01/17 08:41 Heparin Sodium (Porcine) (Heparin 5000 units/ml) 5,000 units EVERY 12 HOURS SUBQ 01/20/17 21:00 02/19/17 20:59 01/22/17 21:52 Insulin Aspart (NovoLOG) BEFORE MEALS AND HS SUBQ 01/20/17 21:00 02/19/17 20:59 02/01/17 06:13 Nitroglycerin (Ntg) 0.4 mg Q5M X 3 DOSES PRN SL Prn Chest Pain 01/20/17 16:45 02/19/17 16:44 Ondansetron HCl (Zofran) 4 mg Q6H PRN IVP Nausea & Vomiting 01/20/17 20:30 02/19/17 20:29 Pantoprazole (Protonix) 40 mg EVERY 12 HOURS ORAL 01/25/17 21:00 02/24/17 20:59 02/01/17 08:41 Polyethylene Glycol (Miralax) 17 gm DAILYPRN PRN ORAL Constipation 01/21/17 02:30 02/20/17 02:29 01/29/17 13:10 Sevelamer Carbonate (Renvela) 2,400 mg THREE TIMES A DAY ORAL 01/23/17 13:00 02/22/17 12:59 02/01/17 08:40 NIVIA GUARDADO Feb 01, 2017 12:19
--- NOTE | 2017-02-01 13:33 | Pulmonology Progress Note ---
Assessment/Plan Assessment/Plan ASSESSMENT Sepsis PNA, likely aspiration probable UTI acute hypoxemic respiratory failure ARF hyperkalemia dysphagia dementia diabetes hx of CAD HTN anemia, s/p blood transfusion refusal to eat PLAN OF CARE MS floor abx ID follows all cx UTD negative O2 HHN prn back to 100% NRM ABG in am ARF likely 2 to diabetic nephropathy and HTN nephro follows HD as per nephro monitor renal parameters, lytes renal US unremarkable s/p tunneled catheter placement 01/29 continue ASA, Plavix BS management with SS of insulin , HgA1c at goal-.7 swallow eval done, recommended VSS and diet for quality of life with strict aspiration precautions and reflux measures PT/OT/ST DVT/GI prophylaxis patient refusing to eat and take medications swallow eval done earlier during this admission patient placed on quality of life diet with strict aspiration precautions no IVF ( dialysis patient) calorie count x 48 hrs not a candidate for PEG given dementia and high risk for further aspiration case discussed and evaluated by supervising physician Subjective Allergies: Coded Allergies: MORPHINE (Verified Adverse Reaction, Severe, PARADOXICAL REACTION, 10/08/12 ) Subjective leukocytosis trending down, afebrile back to NRM HD done 01/31 patient is not eating, not taking medications Objective Last 24 Hour Vital Signs Date Time Temp Pulse Resp B/P Pulse Ox O2 Delivery O2 Flow Rate FiO2 02/01/17 12:00 98.7 83 20 155/84 97 Simple Mask 15.0 02/01/17 08:41 86 151/87 02/01/17 08:39 75 20 Non-Rebreather 15.0 96 02/01/17 08:39 96 Non-Rebreather 15.0 100 02/01/17 08:39 Non-Rebreather 15.0 100 02/01/17 08:00 97.2 94 19 151/87 100 Simple Mask 15.0 02/01/17 04:00 97.2 76 20 140/81 93 02/01/17 00:00 97.5 80 20 158/83 96 Simple Mask 01/31/17 20:00 97.3 85 20 155/64 94 Simple Mask 15.0 01/31/17 19:30 70 20 Non-Rebreather 15.0 93 01/31/17 19:30 Non-Rebreather 15.0 100 01/31/17 19:30 93 Non-Rebreather 15.0 100 01/31/17 18:34 78 162/67 01/31/17 16:00 97.5 78 18 162/67 95 Simple Mask 15.0 Intake and Output 01/31/17 02/01/17 19:00 07:00 Intake Total 100 ml 80 ml Output Total 1400 ml Balance -1300 ml 80 ml Intake Oral 100 ml 80 ml Hemodialysis UF 1400 ml # Voids 100 160 # Bowel Movements 1 Objective General Appearance: awake, moaning, poorly responsive, bedridden obese chronically ill looking female HEENT: normocephalic, atraumatic, 100% NRM Respiratory/Chest: chest wall non-tender, no accessory muscle use, decreased breath sounds, R subclavian HD catheter Cardiovascular: normal rate, regular rhythm, no JVD Abdomen: normal bowel sounds, soft, non tender - obese Extremities: other - tarce edema BLE 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: abnormal gait, other - open eyes spontaneously, moans, poorly responsive, stiff LE Musculoskeletal: atrophy - BLE Current Medications Medications (Trade) Dose Ordered Sig/Rina Route PRN Reason Start Time Stop Time Status Last Admin Dose Admin Acetaminophen (Tylenol) 650 mg Q6H PRN ORAL Mild Pain/Temp > 100.5 01/21/17 19:00 02/20/17 18:59 Acetaminophen/ Hydrocodone Bitart ([place] 5/325) 1 tab Q4H PRN ORAL Moderate Pain (Pain Scale 4-6) 01/30/17 19:45 02/06/17 19:44 01/30/17 20:12 Aluminum Hydroxide 1920 mg 1,920 mg Q6HR ORAL 01/26/17 11:00 02/25/17 10:59 02/01/17 06:10 Amlodipine Besylate (Norvasc) 5 mg BID ORAL 01/25/17 18:00 02/24/17 17:59 02/01/17 08:41 Aspirin (Ecotrin) 81 mg DAILY ORAL 01/21/17 09:00 02/20/17 08:59 02/01/17 08:40 Ceftaroline Fosamil/Sodium Chloride (Teflaro/Sodium Chloride) 55 ml @ 55 mls/hr Q12HR IV 01/28/17 12:00 02/04/17 11:59 02/01/17 08:42 Clopidogrel Bisulfate (Plavix) 75 mg DAILY ORAL 01/21/17 09:00 02/20/17 08:59 02/01/17 08:41 Dextrose (Dextrose 50%) STAT PRN IV Hypoglycemia 01/21/17 02:30 02/20/17 02:29 Docusate Sodium (Colace) 100 mg TID ORAL 01/21/17 13:00 02/20/17 12:59 02/01/17 08:41 Heparin Sodium (Porcine) (Heparin 5000 units/ml) 5,000 units EVERY 12 HOURS SUBQ 01/20/17 21:00 02/19/17 20:59 01/22/17 21:52 Insulin Aspart (NovoLOG) BEFORE MEALS AND HS SUBQ 01/20/17 21:00 02/19/17 20:59 02/01/17 06:13 Nitroglycerin (Ntg) 0.4 mg Q5M X 3 DOSES PRN SL Prn Chest Pain 01/20/17 16:45 02/19/17 16:44 Ondansetron HCl (Zofran) 4 mg Q6H PRN IVP Nausea & Vomiting 01/20/17 20:30 02/19/17 20:29 Pantoprazole (Protonix) 40 mg EVERY 12 HOURS ORAL 01/25/17 21:00 02/24/17 20:59 02/01/17 08:41 Polyethylene Glycol (Miralax) 17 gm DAILYPRN PRN ORAL Constipation 01/21/17 02:30 02/20/17 02:29 01/29/17 13:10 Sevelamer Carbonate (Renvela) 2,400 mg THREE TIMES A DAY ORAL 01/23/17 13:00 02/22/17 12:59 02/01/17 08:40 Melanie Savage (Vanchtein) ROUGH PATCHER Feb 01, 2017 13:33
[2017-02-01] MEDS ORDERED: DuoNeb 0.5-3(2.5)mg/3ml neb HHN PRN (13:45)
[2017-02-01] MEDS ORDERED: D5NS 1000ml IV ONE (16:55)
[2017-02-01] MEDS ORDERED: NS 275ml ONE (16:55)
[2017-02-01] MEDS ORDERED: Tubing IV Secondary IV ONE (16:55)
[2017-02-01 17:00] VITALS: BP 130/78
[2017-02-01 20:42] VITALS: BP 161/73
[2017-02-02] VITALS (8 sets, daily range): BP systolic 120–154; BP diastolic 57–95
[2017-02-02] MEDS: NovoLOG Insulin Flexpen SUBQ SCH ×4 (05:53→20:27)
[2017-02-02] MEDS: Aluminum Hydroxide Gel Susp 15ml ORAL SCH ×3 (05:54→18:34)
[2017-02-02 06:20] LABS: MEAN CORPUSCULAR HGB CONC 33.3 G/DL (32.0-36.0); MEAN CORPUSCULAR VOLUME 90 FL (80-99); MEAN PLATELET VOLUME 7.6 FL (6.5-10.1); PLATELET COUNT 83 K/UL (150-450); RED BLOOD COUNT 3.28 M/UL (4.20-5.40); RED CELL DISTRIBUTION WIDTH 14.2 % (11.6-14.8); WHITE BLOOD COUNT 9.4 K/UL (4.8-10.8)
[2017-02-02 06:41] LABS: ALANINE AMINOTRANSFERASE 25 U/L (3-33); ALBUMIN/GLOBULIN RATIO 1.3 (1.0-2.7); ANION GAP 17 (5-15); ASPARTATE AMINO TRANSFERASE 38 U/L (5-40); CALCIUM 8.1 mg/dL (8.6-10.2); CARBON DIOXIDE 31 mEQ/L (20-30); CHLORIDE 93 mEQ/L (98-107); HEMOLYSIS 4; MAGNESIUM 2.2 mg/dL (1.7-2.5); PHOSPHORUS 9.5 mg/dL (2.5-4.8); POTASSIUM 4.6 mEQ/L (3.4-4.9); SODIUM 141 mEQ/L (135-145); TOTAL PROTEIN 5.4 g/dL (6.6-8.7); URIC ACID 7.3 mg/dL (3.0-7.5)
[2017-02-02 07:50] LABS: HYPOCHROMASIA 1+; LYMPHOCYTES % (MANUAL) 7 % (20-45); NEUTROPHILS % (MANUAL) 84 % (45-75); TOTAL CELLS COUNTED 100
[2017-02-02 07:51] LABS: ANISOCYTOSIS 1+; BAND NEUTROPHILS % (MANUAL) 0 % (0-8); BASOPHILS % (MANUAL) 0 % (0-2); EOSINOPHILS % (MANUAL) 0 % (0-3); PLATELET ESTIMATE DECREASED; PLATELET MORPHOLOGY NORMAL
[2017-02-02] MEDS: Heparin 5000 units/ml inj SUBQ SCH ×2 (09:00→20:27)
[2017-02-02] MEDS: Ceftaroline 200 MG in NS 55 ML IV SCH ×2 (09:14→20:20)
[2017-02-02] MEDS: Docusate 100mg tablet ORAL SCH ×3 (09:14→18:34)
[2017-02-02] MEDS: Aspirin EC 81mg tab ORAL SCH (09:14)
--- NOTE | 2017-02-02 10:27 | Infectious Diseases Prog Note ---
Assessment/Plan Assessment/Plan ASSESSMENT: 76 y/o female with: // Probable UTI - UCx(-) // Hypoxia, possible HCAP - CXR 01/24: Extensive bilateral interstitial and airspace opacities, unchanged // h/o CoNS bacteremia 11/05 ( 01/09 ) ?real ( PICC tip+ ) vs contaminant r/o recurrence/persistence - surveillance BCx(-) // h/o right ankle cellulitis / osteomyelitis / hardware infection SP incomplete Rx ( recommended to complete 6 weeks IV daptomycin, cefepime ( end ), but daughter apparently declined at last discharge per documentation ) - SP hardware removal 12/15 - no culture sent - 3P bone scan: 3 phase increased activity in region of distal aspect of right fibula compatible with hardware loosening and/or osteomyelitis - XR: surgical hardware seen reducing old healed distal fibular and medial malleolar fractures. No acute fractures. No dislocations. Bones are demineralized. - elevated ESR, CRP - h/o right ankle ORIF // Probable sepsis,SP // Leukocytosis , SP // ARF on CKD --> IHD per renal SP placement of tunneled right jugular hemodialysis catheter. 01/29 // Dementia // DM2 - HbA1c 6.1% // h/o CAD - trop(-) x1 // NH resident // VRE colonized // No ABX allergies // Full Code PLAN: - cont Teflaro d# 6 / 10 ( converage of possible MRSA and avoiding Nephro toxic and due to low Plt ) ( 01/28 SP IV cefepime d# 10 IV Vanco d# 2 ) - monitor CBC, temperatures - monitor BMP - monitor CXR - respiratory support prn ) Subjective Constitutional: Denies: anorexia, chills, drenching sweats, fatigue, fever, no symptoms, other Allergies: Coded Allergies: MORPHINE (Verified Adverse Reaction, Severe, PARADOXICAL REACTION, 10/08/12 ) Objective Vital Signs Last 24 Hour Vital Signs Date Time Temp Pulse Resp B/P Pulse Ox O2 Delivery O2 Flow Rate FiO2 02/02/17 09:14 76 148/95 02/02/17 08:27 97.0 76 21 148/95 96 Ambu-Bag 15.0 02/02/17 07:42 Non-Rebreather 15.0 100 02/02/17 07:41 100 Non-Rebreather 15.0 100 02/02/17 07:40 87 20 Non-Rebreather 15.0 100 02/02/17 04:00 98.2 73 18 154/84 98 Non-Rebreather 15.0 02/02/17 00:00 97.7 78 20 150/84 98 Non-Rebreather 15.0 02/01/17 22:55 97.0 02/01/17 20:42 97.0 78 21 161/73 98 Non-Rebreather 15.0 02/01/17 20:26 Non-Rebreather 15.0 100 02/01/17 20:26 97 Non-Rebreather 15.0 100 02/01/17 20:25 74 20 Non-Rebreather 15.0 97 02/01/17 17:56 69 130/78 02/01/17 17:00 98.2 69 20 130/78 96 Non-Rebreather 15.0 02/01/17 12:00 98.7 83 20 155/84 97 Simple Mask 15.0 Height (Feet): 5 Height (Inches): 1.00 Weight (Pounds): 200 HEENT: atraumatic Respiratory/Chest: normal breath sounds Cardiovascular: normal rate Abdomen: non distended Laboratory Tests Test 02/02/17 05:15 White Blood Count 9.4 K/UL (4.8-10.8) Red Blood Count 3.28 M/UL (4.20-5.40) L Hemoglobin 9.8 G/DL (12.0-16.0) L Hematocrit 29.6 % (37.0-47.0) L Mean Corpuscular Volume 90 FL (80-99) Mean Corpuscular Hemoglobin 30.0 PG (27.0-31.0) Mean Corpuscular Hemoglobin Concent 33.3 G/DL (32.0-36.0) Red Cell Distribution Width 14.2 % (11.6-14.8) Platelet Count 83 K/UL (150-450) L Mean Platelet Volume 7.6 FL (6.5-10.1) Neutrophils (%) (Auto) % (45.0-75.0) Lymphocytes (%) (Auto) % (20.0-45.0) Monocytes (%) (Auto) % (1.0-10.0) Eosinophils (%) (Auto) % (0.0-3.0) Basophils (%) (Auto) % (0.0-2.0) Differential Total Cells Counted 100 Neutrophils % (Manual) 84 % (45-75) H Lymphocytes % (Manual) 7 % (20-45) L Monocytes % (Manual) 9 % (1-10) Eosinophils % (Manual) 0 % (0-3) Basophils % (Manual) 0 % (0-2) Band Neutrophils 0 % (0-8) Platelet Estimate Decreased L Platelet Morphology Normal Hypochromasia 1+ Anisocytosis 1+ Sodium Level 141 mEQ/L (135-145) Potassium Level 4.6 mEQ/L (3.4-4.9) Chloride Level 93 mEQ/L (98-107) L Carbon Dioxide Level 31 mEQ/L (20-30) H Anion Gap 17 (5-15) H Blood Urea Nitrogen 73 mg/dL (7-23) H Creatinine 6.0 mg/dL (0.5-0.9) H Estimat Glomerular Filtration Rate mL/min (>60) Glucose Level 151 mg/dL (74-106) H Uric Acid 7.3 mg/dL (3.0-7.5) Calcium Level 8.1 mg/dL (8.6-10.2) L Phosphorus Level 9.5 mg/dL (2.5-4.8) H Magnesium Level 2.2 mg/dL (1.7-2.5) Total Bilirubin 0.3 mg/dL (0.0-1.2) Aspartate Amino Transf (AST/SGOT) 38 U/L (5-40) Alanine Aminotransferase (ALT/SGPT) 25 U/L (3-33) Alkaline Phosphatase 80 U/L (35-104) Pro-B-Type Natriuretic Peptide 92411 pg/mL (0-450) H Total Protein 5.4 g/dL (6.6-8.7) L Albumin 3.1 g/dL (3.5-5.2) L Globulin 2.3 g/dL Albumin/Globulin Ratio 1.3 (1.0-2.7) Random Vancomycin Level 15.1 ug/mL Current Medications Medications (Trade) Dose Ordered Sig/Rina Route PRN Reason Start Time Stop Time Status Last Admin Dose Admin Acetaminophen (Tylenol) 650 mg Q6H PRN ORAL Mild Pain/Temp > 100.5 01/21/17 19:00 02/20/17 18:59 02/01/17 21:56 Acetaminophen/ Hydrocodone Bitart ([place] 5/325) 1 tab Q4H PRN ORAL Moderate Pain (Pain Scale 4-6) 01/30/17 19:45 02/06/17 19:44 01/30/17 20:12 Albuterol/ Ipratropium (DuoNeb 0.5-3(2.5)mg/3ml) 3 ml Q4H PRN HHN sob 02/01/17 13:45 02/06/17 13:44 Aluminum Hydroxide 1920 mg 1,920 mg Q6HR ORAL 01/26/17 11:00 02/25/17 10:59 02/01/17 23:59 Amlodipine Besylate (Norvasc) 5 mg BID ORAL 01/25/17 18:00 02/24/17 17:59 02/02/17 09:14 Aspirin (Ecotrin) 81 mg DAILY ORAL 01/21/17 09:00 02/20/17 08:59 02/02/17 09:14 Ceftaroline Fosamil/Sodium Chloride (Teflaro/Sodium Chloride) 55 ml @ 55 mls/hr Q12HR IV 01/28/17 12:00 02/04/17 11:59 02/02/17 09:14 Clopidogrel Bisulfate (Plavix) 75 mg DAILY ORAL 01/21/17 09:00 02/20/17 08:59 02/02/17 09:14 Dextrose (Dextrose 50%) STAT PRN IV Hypoglycemia 01/21/17 02:30 02/20/17 02:29 Docusate Sodium (Colace) 100 mg TID ORAL 01/21/17 13:00 02/20/17 12:59 02/02/17 09:14 Heparin Sodium (Porcine) (Heparin 5000 units/ml) 5,000 units EVERY 12 HOURS SUBQ 01/20/17 21:00 02/19/17 20:59 01/22/17 21:52 Insulin Aspart (NovoLOG) BEFORE MEALS AND HS SUBQ 01/20/17 21:00 02/19/17 20:59 02/02/17 05:53 Nitroglycerin (Ntg) 0.4 mg Q5M X 3 DOSES PRN SL Prn Chest Pain 01/20/17 16:45 02/19/17 16:44 Ondansetron HCl (Zofran) 4 mg Q6H PRN IVP Nausea & Vomiting 01/20/17 20:30 02/19/17 20:29 Pantoprazole (Protonix) 40 mg EVERY 12 HOURS ORAL 01/25/17 21:00 02/24/17 20:59 02/02/17 09:14 Polyethylene Glycol (Miralax) 17 gm DAILYPRN PRN ORAL Constipation 01/21/17 02:30 02/20/17 02:29 01/29/17 13:10 Sevelamer Carbonate (Renvela) 2,400 mg THREE TIMES A DAY ORAL 01/23/17 13:00 02/22/17 12:59 02/02/17 09:14 GISELLA JEROME M.D. Feb 02, 2017 10:27
[2017-02-02 12:07] LABS: ABG ALLEN TEST POSITIVE; ABG PCO2 50.3 mmHg (35.0-45.0)
--- NOTE | 2017-02-02 13:51 | Wound Care Consultation ---
Wound Assessment Wound Assessment #1: Wound Number: #1 Wound Present on Admission: No New Wound: Yes Status Change of Wound: No Wound Location Body Site Modif: left Wound Location Body Site: ear - top of ear at o2 tubing site. Wound Type: pressure ulcer Ewelina Test: Does not Ewelina Pressure Ulcer Stage: I Wound Length: 0.5 Wound Width: 0.5 Percent of Wound [place]/Red: 100 Wound Drainage Description: Serosanguineous Wound Drainage Amount: None Wound Drainage Odor: None/Absent Tissue Surrounding Wound: Intact Wound General Appearance: Reddened Wound Assessment #2: Wound Number: #2 Wound Present on Admission: No New Wound: Yes Status Change of Wound: No Wound Location Body Site Modif: right Wound Location Body Site: ear - top of ear at 02 tubing site. Wound Type: pressure ulcer E[place]elina Test: Does not [place] Pressure Ulcer Stage: I Wound Length: 0.5 Wound Width: 0.5 Percent of Wound [place]/Red: 100 Wound Drainage Amount: None Wound Drainage Odor: None/Absent Tissue Surrounding Wound: Intact Wound General Appearance: Reddened Wound Assessment #3: Wound Number: #3 Wound Present on Admission: No New Wound: No Status Change of Wound: Yes - noted increase in redness Wound Location Body Site: sacral Wound Type: pressure ulcer Ewelina Test: Does not [place] Pressure Ulcer Stage: I Wound Length: 3.0 Wound Width: 10.0 - scattered Percent of Wound [place]/Red: 100 Wound Drainage Amount: None Wound Drainage Odor: None/Absent Tissue Surrounding Wound: Intact Wound General Appearance: Reddened Wound Comment #1 Left top of ear pressure ulcer stage I - No change noted upon assessment , skin intact. #2 Right top of ear pressure ulcer stage I.- No change noted upon assessment, skin intact. #3 Sacral pressure ulcer stage I.- upon reassessment noted increase size , redness noted, skin remains intact. Recommendation. -APPLY SPR LOW AIR LOSS OVERLAY MATTRESS. -Local wound care as ordered. -Turn and reposition. -Keep clean and dry. -APPLY 4X4 GAUZE TO 02 TUBING FOR SKIN MANAGEMENT AND PREVENTION. -Optimize nutrition. -Heel protectors. -Avoid shear and friction. -Assess and notify MD for any change of condition. JEOVANY HOGUE Feb 02, 2017 13:51
--- NOTE | 2017-02-02 14:41 | General Progress Note ---
Assessment/Plan Status: unchanged Assessment/Plan ( Had long talk with daughter Gali 01/19 ) - Acute renal failure and hyperKalemia - Renal failure, likely diabetic nephropathy / HTN - Sepsis , Pneumonia, Respiratory failure and Hypoxia other - h/o Cellulitis in diabetic foot right LE - Decubitus ulcer - Dementia - Diabetes mellitus - Nonpressure ulcer to level of fascia right lateral ankle - S/P ORIF right ankle Plan: Poor po is the main issue ? PEG? Had permacath 01/30 HD next 02/02 monitor WBCs Monitor renal parameters and Vanco level- ARTUR Kidney done last admission- unremarkable Adjust BP meds- Avoid Nephrotoxics- discussed with CM Per orders Subjective ROS Limited/Unobtainable: No Constitutional: Reports: malaise, other - poor po Allergies: Coded Allergies: MORPHINE (Verified Adverse Reaction, Severe, PARADOXICAL REACTION, 10/08/12 ) Objective Last 24 Hour Vital Signs Date Time Temp Pulse Resp B/P Pulse Ox O2 Delivery O2 Flow Rate FiO2 02/02/17 11:55 96.9 75 21 150/94 96 Non-Rebreather 15.0 02/02/17 09:14 76 148/95 02/02/17 08:27 97.0 76 21 148/95 96 Non-Rebreather 15.0 02/02/17 07:42 Non-Rebreather 15.0 100 02/02/17 07:41 100 Non-Rebreather 15.0 100 02/02/17 07:40 87 20 Non-Rebreather 15.0 100 02/02/17 04:00 98.2 73 18 154/84 98 Non-Rebreather 15.0 02/02/17 00:00 97.7 78 20 150/84 98 Non-Rebreather 15.0 02/01/17 22:55 97.0 02/01/17 20:42 97.0 78 21 161/73 98 Non-Rebreather 15.0 02/01/17 20:26 Non-Rebreather 15.0 100 02/01/17 20:26 97 Non-Rebreather 15.0 100 02/01/17 20:25 74 20 Non-Rebreather 15.0 97 02/01/17 17:56 69 130/78 02/01/17 17:00 98.2 69 20 130/78 96 Non-Rebreather 15.0 Intake and Output 02/01/17 02/02/17 19:00 07:00 Intake Total 215 ml Balance 215 ml Intake Oral 160 ml IV Total 55 ml # Voids 70 150 # Bowel Movements 1 Laboratory Tests 02/02/17 05:15: White Blood Count 9.4, Red Blood Count 3.28L, Hemoglobin 9.8L, Hematocrit 29.6L , Mean Corpuscular Volume 90, Mean Corpuscular Hemoglobin 30.0, Mean Corpuscular Hemoglobin Concent 33.3, Red Cell Distribution Width 14.2, Platelet Count 83L, Mean Platelet Volume 7.6, Neutrophils (%) (Auto) , Lymphocytes (%) ( Auto) , Monocytes (%) (Auto) , Eosinophils (%) (Auto) , Basophils (%) (Auto) , Differential Total Cells Counted 100, Neutrophils % (Manual) 84H, Lymphocytes % (Manual) 7L, Monocytes % (Manual) 9, Eosinophils % (Manual) 0, Basophils % ( Manual) 0, Band Neutrophils 0, Platelet Estimate DecreasedL, Platelet Morphology Normal, Hypochromasia 1+, Anisocytosis 1+, Sodium Level 141, Potassium Level 4.6, Chloride Level 93L, Carbon Dioxide Level 31H, Anion Gap 17H , Blood Urea Nitrogen 73H, Creatinine 6.0H, Estimat Glomerular Filtration Rate , Glucose Level 151H, Uric Acid 7.3, Calcium Level 8.1L, Phosphorus Level 9.5H, Magnesium Level 2.2, Total Bilirubin 0.3, Aspartate Amino Transf (AST/SGOT) 38, Alanine Aminotransferase (ALT/SGPT) 25, Alkaline Phosphatase 80, Pro-B-Type Natriuretic Peptide 55160D, Total Protein 5.4L, Albumin 3.1L, Globulin 2.3, Albumin/Globulin Ratio 1.3, Random Vancomycin Level 15.1 02/02/17 11:55: Arterial Blood pH 7.402, Arterial Blood Partial Pressure CO2 50.3H, Arterial Blood Partial Pressure O2 72.1L, Arterial Blood HCO3 30.6H, Arterial Blood Oxygen Saturation 92.4, Arterial Blood Base Excess 5.0, Levy Test Positive Height (Feet): 5 Height (Inches): 1.00 Weight (Pounds): 200 Cardiovascular: normal rate Respiratory/Chest: decreased breath sounds Abdomen: soft Objective other PE not changed BERTRAM CASTAÑEDA Feb 02, 2017 14:41
--- NOTE | 2017-02-02 15:20 | Diagnostic Imaging Report ---
Indication: SOB Technique: One view of the chest Comparison: 01/30/2017 Findings: Patient's chin obscures the upper mediastinum. Extensive bilateral diffuse parenchymal disease is again demonstrated, appearing similar to the prior exam. Right jugular tunneled dialysis catheter remains. Impression: Unchanged, over 3 days, findings as above.
[2017-02-02] MEDS ORDERED: DuoNeb 0.5-3(2.5)mg/3ml neb HHN PRN (16:00)
[2017-02-02] MEDS: Analgesic Balm 15gm TOPIC SCH ×2 (18:45→21:13)
[2017-02-02] MEDS: Norco 5mg/325mg tab ORAL PRN (20:21)
--- NOTE | 2017-02-02 20:24 | Pulmonology Progress Note ---
Assessment/Plan Problems: (1) Respiratory failure with hypoxia (2) Acute on chronic renal failure (3) Diabetes mellitus (4) Osteomyelitis of ankle or foot, right, acute Assessment/Plan improving slowly HD by nephrology cxr was unchanged, persistant bilateral infiltrate abx as per Id sliding scale stable for med/surg d/w pts son and daughter extensively at the bed site. They don't seem to understand the nature of the illness. requesting to change the doctor. Subjective Interval Events: awake, comfortable, on 100 NRm Allergies: Coded Allergies: MORPHINE (Verified Adverse Reaction, Severe, PARADOXICAL REACTION, 10/08/12 ) Objective Last 24 Hour Vital Signs Date Time Temp Pulse Resp B/P Pulse Ox O2 Delivery O2 Flow Rate FiO2 02/02/17 20:16 97.0 83 22 120/73 Non-Rebreather 15.0 02/02/17 19:33 Non-Rebreather 15.0 100 02/02/17 19:32 76 20 Non-Rebreather 15.0 100 02/02/17 19:32 97 Non-Rebreather 15.0 100 02/02/17 16:00 97.7 65 19 149/59 100 Nasal Cannula 15.0 02/02/17 11:55 96.9 75 21 150/94 96 Non-Rebreather 15.0 02/02/17 09:14 76 148/95 02/02/17 08:27 97.0 76 21 148/95 96 Non-Rebreather 15.0 02/02/17 07:42 Non-Rebreather 15.0 100 02/02/17 07:41 100 Non-Rebreather 15.0 100 02/02/17 07:40 87 20 Non-Rebreather 15.0 100 02/02/17 04:00 98.2 73 18 154/84 98 Non-Rebreather 15.0 02/02/17 00:00 97.7 78 20 150/84 98 Non-Rebreather 15.0 02/01/17 22:55 97.0 02/01/17 20:42 97.0 78 21 161/73 98 Non-Rebreather 15.0 02/01/17 20:26 Non-Rebreather 15.0 100 02/01/17 20:26 97 Non-Rebreather 15.0 100 02/01/17 20:25 74 20 Non-Rebreather 15.0 97 Intake and Output 02/01/17 02/02/17 19:00 07:00 Intake Total 215 ml Balance 215 ml Intake Oral 160 ml IV Total 55 ml # Voids 70 150 # Bowel Movements 1 General Appearance: WD/WN HEENT: normocephalic, atraumatic Respiratory/Chest: chest wall non-tender, lungs clear Cardiovascular: normal peripheral pulses, normal rate Abdomen: normal bowel sounds, soft, non tender Genitourinary: normal external genitalia Extremities: no clubbing Skin: no rash 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: box packer II-XII grossly normal Laboratory Tests 02/02/17 05:15: White Blood Count 9.4, Red Blood Count 3.28L, Hemoglobin 9.8L, Hematocrit 29.6L , Mean Corpuscular Volume 90, Mean Corpuscular Hemoglobin 30.0, Mean Corpuscular Hemoglobin Concent 33.3, Red Cell Distribution Width 14.2, Platelet Count 83L, Mean Platelet Volume 7.6, Neutrophils (%) (Auto) , Lymphocytes (%) ( Auto) , Monocytes (%) (Auto) , Eosinophils (%) (Auto) , Basophils (%) (Auto) , Differential Total Cells Counted 100, Neutrophils % (Manual) 84H, Lymphocytes % (Manual) 7L, Monocytes % (Manual) 9, Eosinophils % (Manual) 0, Basophils % ( Manual) 0, Band Neutrophils 0, Platelet Estimate DecreasedL, Platelet Morphology Normal, Hypochromasia 1+, Anisocytosis 1+, Sodium Level 141, Potassium Level 4.6, Chloride Level 93L, Carbon Dioxide Level 31H, Anion Gap 17H , Blood Urea Nitrogen 73H, Creatinine 6.0H, Estimat Glomerular Filtration Rate , Glucose Level 151H, Uric Acid 7.3, Calcium Level 8.1L, Phosphorus Level 9.5H, Magnesium Level 2.2, Total Bilirubin 0.3, Aspartate Amino Transf (AST/SGOT) 38, Alanine Aminotransferase (ALT/SGPT) 25, Alkaline Phosphatase 80, Pro-B-Type Natriuretic Peptide 12482P, Total Protein 5.4L, Albumin 3.1L, Globulin 2.3, Albumin/Globulin Ratio 1.3, Random Vancomycin Level 15.1 02/02/17 11:55: Arterial Blood pH 7.402, Arterial Blood Partial Pressure CO2 50.3H, Arterial Blood Partial Pressure O2 72.1L, Arterial Blood HCO3 30.6H, Arterial Blood Oxygen Saturation 92.4, Arterial Blood Base Excess 5.0, Levy Test Positive Current Medications Medications (Trade) Dose Ordered Sig/Rina Route PRN Reason Start Time Stop Time Status Last Admin Dose Admin Acetaminophen (Tylenol) 650 mg Q6H PRN ORAL Mild Pain/Temp > 100.5 01/21/17 19:00 02/20/17 18:59 02/02/17 14:44 Acetaminophen/ Hydrocodone Bitart ([place] 5/325) 1 tab Q4H PRN ORAL Moderate Pain (Pain Scale 4-6) 01/30/17 19:45 02/06/17 19:44 02/02/17 20:21 Albuterol/ Ipratropium (DuoNeb 0.5-3(2.5)mg/3ml) 3 ml Q4H PRN HHN sob 02/01/17 13:45 02/06/17 13:44 Albuterol/ Ipratropium (DuoNeb 0.5-3(2.5)mg/3ml) 3 ml Q8H PRN HHN Shortness of Breath 02/02/17 16:00 02/07/17 15:59 Aluminum Hydroxide 1920 mg 1,920 mg Q6HR ORAL 01/26/17 11:00 02/25/17 10:59 02/01/17 23:59 Amlodipine Besylate (Norvasc) 5 mg BID ORAL 01/25/17 18:00 02/24/17 17:59 02/02/17 09:14 Aspirin (Ecotrin) 81 mg DAILY ORAL 01/21/17 09:00 02/20/17 08:59 02/02/17 09:14 Ceftaroline Fosamil/Sodium Chloride (Teflaro/Sodium Chloride) 55 ml @ 55 mls/hr Q12HR IV 01/28/17 12:00 02/04/17 11:59 02/02/17 20:20 Clopidogrel Bisulfate (Plavix) 75 mg DAILY ORAL 01/21/17 09:00 02/20/17 08:59 02/02/17 09:14 Dextrose (Dextrose 50%) STAT PRN IV Hypoglycemia 01/21/17 02:30 02/20/17 02:29 Docusate Sodium (Colace) 100 mg TID ORAL 01/21/17 13:00 02/20/17 12:59 02/02/17 09:14 Heparin Sodium (Porcine) (Heparin 5000 units/ml) 5,000 units EVERY 12 HOURS SUBQ 01/20/17 21:00 02/19/17 20:59 01/22/17 21:52 Insulin Aspart (NovoLOG) BEFORE MEALS AND HS SUBQ 01/20/17 21:00 02/19/17 20:59 02/02/17 05:53 Menthol/Methyl Salicylate (Bengay) 1 applic FOUR TIMES A DAY TOPIC 02/02/17 18:00 03/04/17 17:59 02/02/17 18:45 Nitroglycerin (Ntg) 0.4 mg Q5M X 3 DOSES PRN SL Prn Chest Pain 01/20/17 16:45 02/19/17 16:44 Ondansetron HCl (Zofran) 4 mg Q6H PRN IVP Nausea & Vomiting 01/20/17 20:30 02/19/17 20:29 02/02/17 16:38 Pantoprazole (Protonix) 40 mg EVERY 12 HOURS ORAL 01/25/17 21:00 02/24/17 20:59 02/02/17 20:20 Polyethylene Glycol (Miralax) 17 gm DAILYPRN PRN ORAL Constipation 01/21/17 02:30 02/20/17 02:29 01/29/17 13:10 Sevelamer Carbonate (Renvela) 2,400 mg THREE TIMES A DAY ORAL 01/23/17 13:00 02/22/17 12:59 02/02/17 09:14 SHYAM NAVA Feb 02, 2017 20:24
[2017-02-03] VITALS (7 sets, daily range): BP systolic 121–161; BP diastolic 43–72
[2017-02-03] MEDS: Aluminum Hydroxide Gel Susp 15ml ORAL SCH ×6 (00:30→23:35)
[2017-02-03] MEDS: NovoLOG Insulin Flexpen SUBQ SCH ×4 (06:18→20:51)
[2017-02-03 07:07] LABS: MEAN CORPUSCULAR HEMOGLOBIN 30.4 PG (27.0-31.0); MEAN CORPUSCULAR HGB CONC 33.4 G/DL (32.0-36.0); MEAN CORPUSCULAR VOLUME 91 FL (80-99); MEAN PLATELET VOLUME 7.8 FL (6.5-10.1); PLATELET COUNT 62 K/UL (150-450); RED BLOOD COUNT 2.87 M/UL (4.20-5.40); WHITE BLOOD COUNT 10.1 K/UL (4.8-10.8)
[2017-02-03 07:22] LABS: ALANINE AMINOTRANSFERASE 22 U/L (3-33); ALBUMIN/GLOBULIN RATIO 1.2 (1.0-2.7); ANION GAP 16 (5-15); ASPARTATE AMINO TRANSFERASE 37 U/L (5-40); CALCIUM 7.9 mg/dL (8.6-10.2); CARBON DIOXIDE 32 mEQ/L (20-30); CHLORIDE 93 mEQ/L (98-107); CREATININE 3.3 mg/dL (0.5-0.9); HEMOLYSIS 4; MAGNESIUM 1.8 mg/dL (1.7-2.5); PHOSPHORUS 5.2 mg/dL (2.5-4.8); POTASSIUM 3.6 mEQ/L (3.4-4.9); SODIUM 141 mEQ/L (135-145); TOTAL PROTEIN 4.8 g/dL (6.6-8.7); URIC ACID 3.6 mg/dL (3.0-7.5)
[2017-02-03] MEDS: Ceftaroline 200 MG in NS 55 ML IV SCH ×2 (08:18→21:18)
[2017-02-03] MEDS: Aspirin EC 81mg tab ORAL SCH (08:18)
[2017-02-03] MEDS: Analgesic Balm 15gm TOPIC SCH ×4 (08:19→21:18)
[2017-02-03] MEDS: Heparin 5000 units/ml inj SUBQ SCH (08:19)
[2017-02-03] MEDS: Docusate 100mg tablet ORAL SCH ×4 (08:19→18:00)
[2017-02-03 09:50] LABS: BAND NEUTROPHILS % (MANUAL) 0 % (0-8); BASOPHILS % (MANUAL) 0 % (0-2); EOSINOPHILS % (MANUAL) 0 % (0-3); LYMPHOCYTES % (MANUAL) 12 % (20-45); NEUTROPHILS % (MANUAL) 83 % (45-75); PLATELET ESTIMATE DECREASED; PLATELET MORPHOLOGY NORMAL; TOTAL CELLS COUNTED 100
[2017-02-03 09:51] LABS: ANISOCYTOSIS 1+
--- NOTE | 2017-02-03 10:14 | Infectious Diseases Prog Note ---
Assessment/Plan Assessment/Plan ASSESSMENT: 76 y/o female with: // Probable UTI - UCx(-) // Hypoxia, possible HCAP - CXR 02/02 : Extensive bilateral interstitial and airspace opacities, unchanged // h/o CoNS bacteremia 11/05 ( 01/09 ) ?real ( PICC tip+ ) vs contaminant r/o recurrence/persistence - surveillance BCx(-) // h/o right ankle cellulitis / osteomyelitis / hardware infection SP incomplete Rx ( recommended to complete 6 weeks IV daptomycin, cefepime ( end ), but daughter apparently declined at last discharge per documentation ) - SP hardware removal 12/15 - no culture sent - 3P bone scan: 3 phase increased activity in region of distal aspect of right fibula compatible with hardware loosening and/or osteomyelitis - XR: surgical hardware seen reducing old healed distal fibular and medial malleolar fractures. No acute fractures. No dislocations. Bones are demineralized. - elevated ESR, CRP - h/o right ankle ORIF // Probable sepsis,SP // Leukocytosis , SP // ARF on CKD --> IHD per renal SP placement of tunneled right jugular hemodialysis catheter. 01/29 // Dementia // DM2 - HbA1c 6.1% // h/o CAD - trop(-) x1 // NH resident // VRE colonized // No ABX allergies // Full Code PLAN: - cont Teflaro d# 7 / 10 ( converage of possible MRSA and avoiding Nephro toxic and due to low Plt ) ( 01/28 SP IV cefepime d# 10 IV Vanco d# 2 ) - monitor CBC, temperatures - monitor BMP - monitor CXR - respiratory support prn Subjective Constitutional: Denies: anorexia, chills, drenching sweats, fatigue, fever, no symptoms, other Allergies: Coded Allergies: MORPHINE (Verified Adverse Reaction, Severe, PARADOXICAL REACTION, 10/08/12 ) Objective Vital Signs Last 24 Hour Vital Signs Date Time Temp Pulse Resp B/P Pulse Ox O2 Delivery O2 Flow Rate FiO2 02/03/17 08:19 71 144/58 02/03/17 07:54 96.3 71 20 144/58 96 Non-Rebreather 15.0 02/03/17 07:45 Non-Rebreather 15.0 100 02/03/17 07:45 98 Non-Rebreather 15.0 100 02/03/17 07:45 79 16 Non-Rebreather 15.0 100 02/03/17 04:00 96.6 76 18 140/72 96 Non-Rebreather 15.0 02/03/17 00:00 97.3 63 19 143/58 99 Non-Rebreather 15.0 02/02/17 23:04 Non-Rebreather 15.0 02/02/17 23:02 97.0 68 21 131/57 98 Non-Rebreather 15.0 02/02/17 20:16 97.0 83 22 120/73 Non-Rebreather 15.0 02/02/17 19:35 Non-Rebreather 15.0 02/02/17 19:35 97.0 83 22 120/73 100 Non-Rebreather 15.0 02/02/17 19:33 Non-Rebreather 15.0 100 02/02/17 19:32 76 20 Non-Rebreather 15.0 100 02/02/17 19:32 97 Non-Rebreather 15.0 100 02/02/17 16:00 97.7 65 19 149/59 100 Nasal Cannula 15.0 02/02/17 11:55 96.9 75 21 150/94 96 Non-Rebreather 15.0 Height (Feet): 5 Height (Inches): 1.00 Weight (Pounds): 200 HEENT: atraumatic Respiratory/Chest: normal breath sounds Cardiovascular: regularly irregular Abdomen: no organomegaly Laboratory Tests Test 02/02/17 11:55 02/03/17 04:45 Arterial Blood pH 7.402 (7.350-7.450) Arterial Blood Partial Pressure CO2 50.3 mmHg (35.0-45.0) H Arterial Blood Partial Pressure O2 72.1 mmHg (75.0-100.0) L Arterial Blood HCO3 30.6 mmol/L (22.0-26.0) H Arterial Blood Oxygen Saturation 92.4 % (92.0-98.0) Arterial Blood Base Excess 5.0 Levy Test Positive White Blood Count 10.1 K/UL (4.8-10.8) Red Blood Count 2.87 M/UL (4.20-5.40) L Hemoglobin 8.7 G/DL (12.0-16.0) L Hematocrit 26.1 % (37.0-47.0) L Mean Corpuscular Volume 91 FL (80-99) Mean Corpuscular Hemoglobin 30.4 PG (27.0-31.0) Mean Corpuscular Hemoglobin Concent 33.4 G/DL (32.0-36.0) Red Cell Distribution Width 15.0 % (11.6-14.8) H Platelet Count 62 K/UL (150-450) L Mean Platelet Volume 7.8 FL (6.5-10.1) Neutrophils (%) (Auto) % (45.0-75.0) Lymphocytes (%) (Auto) % (20.0-45.0) Monocytes (%) (Auto) % (1.0-10.0) Eosinophils (%) (Auto) % (0.0-3.0) Basophils (%) (Auto) % (0.0-2.0) Differential Total Cells Counted 100 Neutrophils % (Manual) 83 % (45-75) H Lymphocytes % (Manual) 12 % (20-45) L Monocytes % (Manual) 5 % (1-10) Eosinophils % (Manual) 0 % (0-3) Basophils % (Manual) 0 % (0-2) Band Neutrophils 0 % (0-8) Platelet Estimate Decreased L Platelet Morphology Normal Anisocytosis 1+ Sodium Level 141 mEQ/L (135-145) Potassium Level 3.6 mEQ/L (3.4-4.9) Chloride Level 93 mEQ/L (98-107) L Carbon Dioxide Level 32 mEQ/L (20-30) H Anion Gap 16 (5-15) H Blood Urea Nitrogen 32 mg/dL (7-23) #H Creatinine 3.3 mg/dL (0.5-0.9) H Estimat Glomerular Filtration Rate mL/min (>60) Glucose Level 79 mg/dL (74-106) Uric Acid 3.6 mg/dL (3.0-7.5) Calcium Level 7.9 mg/dL (8.6-10.2) L Phosphorus Level 5.2 mg/dL (2.5-4.8) H Magnesium Level 1.8 mg/dL (1.7-2.5) Total Bilirubin 0.3 mg/dL (0.0-1.2) Aspartate Amino Transf (AST/SGOT) 37 U/L (5-40) Alanine Aminotransferase (ALT/SGPT) 22 U/L (3-33) Alkaline Phosphatase 73 U/L (35-104) Pro-B-Type Natriuretic Peptide 57785 pg/mL (0-450) H Total Protein 4.8 g/dL (6.6-8.7) L Albumin 2.7 g/dL (3.5-5.2) L Globulin 2.1 g/dL Albumin/Globulin Ratio 1.2 (1.0-2.7) Current Medications Medications (Trade) Dose Ordered Sig/Rina Route PRN Reason Start Time Stop Time Status Last Admin Dose Admin Acetaminophen (Tylenol) 650 mg Q6H PRN ORAL Mild Pain/Temp > 100.5 01/21/17 19:00 02/20/17 18:59 02/02/17 14:44 Acetaminophen/ Hydrocodone Bitart ([place] 5/325) 1 tab Q4H PRN ORAL Moderate Pain (Pain Scale 4-6) 01/30/17 19:45 02/06/17 19:44 02/02/17 20:21 Albuterol/ Ipratropium (DuoNeb 0.5-3(2.5)mg/3ml) 3 ml Q4H PRN HHN sob 02/01/17 13:45 02/06/17 13:44 Albuterol/ Ipratropium (DuoNeb 0.5-3(2.5)mg/3ml) 3 ml Q8H PRN HHN Shortness of Breath 02/02/17 16:00 02/07/17 15:59 Aluminum Hydroxide 1920 mg 1,920 mg Q6HR ORAL 01/26/17 11:00 02/25/17 10:59 02/03/17 05:46 Amlodipine Besylate (Norvasc) 5 mg BID ORAL 01/25/17 18:00 02/24/17 17:59 02/03/17 08:19 Aspirin (Ecotrin) 81 mg DAILY ORAL 01/21/17 09:00 02/20/17 08:59 02/03/17 08:18 Ceftaroline Fosamil/Sodium Chloride (Teflaro/Sodium Chloride) 55 ml @ 55 mls/hr Q12HR IV 01/28/17 12:00 02/04/17 11:59 02/03/17 08:18 Clopidogrel Bisulfate (Plavix) 75 mg DAILY ORAL 01/21/17 09:00 02/20/17 08:59 02/03/17 08:19 Dextrose (Dextrose 50%) STAT PRN IV Hypoglycemia 01/21/17 02:30 02/20/17 02:29 Docusate Sodium (Colace) 100 mg TID ORAL 01/21/17 13:00 02/20/17 12:59 02/03/17 08:19 Heparin Sodium (Porcine) (Heparin 5000 units/ml) 5,000 units EVERY 12 HOURS SUBQ 01/20/17 21:00 02/19/17 20:59 01/22/17 21:52 Insulin Aspart (NovoLOG) BEFORE MEALS AND HS SUBQ 01/20/17 21:00 02/19/17 20:59 02/02/17 05:53 Menthol/Methyl Salicylate (Bengay) 1 applic FOUR TIMES A DAY TOPIC 02/02/17 18:00 03/04/17 17:59 02/03/17 08:19 Nitroglycerin (Ntg) 0.4 mg Q5M X 3 DOSES PRN SL Prn Chest Pain 01/20/17 16:45 02/19/17 16:44 Ondansetron HCl (Zofran) 4 mg Q6H PRN IVP Nausea & Vomiting 01/20/17 20:30 02/19/17 20:29 02/02/17 16:38 Pantoprazole (Protonix) 40 mg EVERY 12 HOURS ORAL 01/25/17 21:00 02/24/17 20:59 02/03/17 08:19 Polyethylene Glycol (Miralax) 17 gm DAILYPRN PRN ORAL Constipation 01/21/17 02:30 02/20/17 02:29 01/29/17 13:10 Sevelamer Carbonate (Renvela) 2,400 mg THREE TIMES A DAY ORAL 01/23/17 13:00 02/22/17 12:59 02/03/17 08:19 GISELLA JEROME M.D. Feb 03, 2017 10:14
--- NOTE | 2017-02-03 13:29 | General Progress Note ---
Assessment/Plan Status: stable Assessment/Plan ( Had long talk with daughter Gali 01/19 ) - Acute renal failure and hyperKalemia - Renal failure, likely diabetic nephropathy / HTN - Sepsis , Pneumonia, Respiratory failure and Hypoxia other - h/o Cellulitis in diabetic foot right LE - Decubitus ulcer - Dementia - Diabetes mellitus - Nonpressure ulcer to level of fascia right lateral ankle - S/P ORIF right ankle Plan: Poor po is the main issue ? PEG? Had permacath 01/30 HD 02/02 next HD 02/04 or 02/05 ?? monitor WBCs Monitor renal parameters and Vanco level- ARTUR Kidney done last admission- unremarkable Adjust BP meds- Avoid Nephrotoxics- discussed with CM Per orders Subjective ROS Limited/Unobtainable: No Constitutional: Reports: malaise, weakness Allergies: Coded Allergies: MORPHINE (Verified Adverse Reaction, Severe, PARADOXICAL REACTION, 10/08/12 ) Objective Last 24 Hour Vital Signs Date Time Temp Pulse Resp B/P Pulse Ox O2 Delivery O2 Flow Rate FiO2 02/03/17 12:00 96.7 74 18 143/61 98 Non-Rebreather 15.0 02/03/17 08:19 71 144/58 02/03/17 07:54 96.3 71 20 144/58 96 Non-Rebreather 15.0 02/03/17 07:45 Non-Rebreather 15.0 100 02/03/17 07:45 98 Non-Rebreather 15.0 100 02/03/17 07:45 79 16 Non-Rebreather 15.0 100 02/03/17 04:00 96.6 76 18 140/72 96 Non-Rebreather 15.0 02/03/17 00:00 97.3 63 19 143/58 99 Non-Rebreather 15.0 02/02/17 23:04 Non-Rebreather 15.0 02/02/17 23:02 97.0 68 21 131/57 98 Non-Rebreather 15.0 02/02/17 20:16 97.0 83 22 120/73 Non-Rebreather 15.0 02/02/17 19:35 Non-Rebreather 15.0 02/02/17 19:35 97.0 83 22 120/73 100 Non-Rebreather 15.0 02/02/17 19:33 Non-Rebreather 15.0 100 02/02/17 19:32 76 20 Non-Rebreather 15.0 100 02/02/17 19:32 97 Non-Rebreather 15.0 100 02/02/17 16:00 97.7 65 19 149/59 100 Nasal Cannula 15.0 Intake and Output 02/02/17 02/03/17 19:00 07:00 Intake Total 95 ml Output Total 50 ml 1075 ml Balance -50 ml -980 ml Intake Oral 95 ml Output Urine Total 50 ml 75 ml Hemodialysis UF 1000 ml Laboratory Tests 02/03/17 04:45: White Blood Count 10.1, Red Blood Count 2.87L, Hemoglobin 8.7L, Hematocrit 26.1L , Mean Corpuscular Volume 91, Mean Corpuscular Hemoglobin 30.4, Mean Corpuscular Hemoglobin Concent 33.4, Red Cell Distribution Width 15.0H, Platelet Count 62L, Mean Platelet Volume 7.8, Neutrophils (%) (Auto) , Lymphocytes (%) (Auto) , Monocytes (%) (Auto) , Eosinophils (%) (Auto) , Basophils (%) (Auto) , Differential Total Cells Counted 100, Neutrophils % ( Manual) 83H, Lymphocytes % (Manual) 12L, Monocytes % (Manual) 5, Eosinophils % ( Manual) 0, Basophils % (Manual) 0, Band Neutrophils 0, Platelet Estimate DecreasedL, Platelet Morphology Normal, Anisocytosis 1+, Sodium Level 141, Potassium Level 3.6, Chloride Level 93L, Carbon Dioxide Level 32H, Anion Gap 16H , Blood Urea Nitrogen 32#H, Creatinine 3.3H, Estimat Glomerular Filtration Rate , Glucose Level 79, Uric Acid 3.6, Calcium Level 7.9L, Phosphorus Level 5.2H, Magnesium Level 1.8, Total Bilirubin 0.3, Aspartate Amino Transf (AST/SGOT) 37, Alanine Aminotransferase (ALT/SGPT) 22, Alkaline Phosphatase 73, Pro-B-Type Natriuretic Peptide 78208Z, Total Protein 4.8L, Albumin 2.7L, Globulin 2.1, Albumin/Globulin Ratio 1.2 Height (Feet): 5 Height (Inches): 1.00 Weight (Pounds): 200 General Appearance: no apparent distress, lethargic, other - poor po intake Respiratory/Chest: decreased breath sounds Abdomen: soft Objective other PE not changed BERTRAM CASTAÑEDA Feb 03, 2017 13:29
--- NOTE | 2017-02-03 15:29 | General Progress Note ---
Assessment/Plan Assessment/Plan hypoxemia respiratory failure pulmonary infiltrates thrombocytopenia renal failure ALOC chronic encephalopathy sepsis PLAN dc heparin, plavix, aspirin follow up cbc monitor renal function antibiotics taper fio2 follow up abg check ct chest taking po swallow evaluation impression, plan, and exam edited and reviewed in detail care discussed with RN Subjective Allergies: Coded Allergies: MORPHINE (Verified Adverse Reaction, Severe, PARADOXICAL REACTION, 10/08/12 ) Subjective asked by family to take over care d/w Dr. Barrera chart reviewed Objective Last 24 Hour Vital Signs Date Time Temp Pulse Resp B/P Pulse Ox O2 Delivery O2 Flow Rate FiO2 02/03/17 12:00 96.7 74 18 143/61 98 Non-Rebreather 15.0 02/03/17 08:19 71 144/58 02/03/17 07:54 96.3 71 20 144/58 96 Non-Rebreather 15.0 02/03/17 07:45 Non-Rebreather 15.0 100 02/03/17 07:45 98 Non-Rebreather 15.0 100 02/03/17 07:45 79 16 Non-Rebreather 15.0 100 02/03/17 04:00 96.6 76 18 140/72 96 Non-Rebreather 15.0 02/03/17 00:00 97.3 63 19 143/58 99 Non-Rebreather 15.0 02/02/17 23:04 Non-Rebreather 15.0 02/02/17 23:02 97.0 68 21 131/57 98 Non-Rebreather 15.0 02/02/17 20:16 97.0 83 22 120/73 Non-Rebreather 15.0 02/02/17 19:35 Non-Rebreather 15.0 02/02/17 19:35 97.0 83 22 120/73 100 Non-Rebreather 15.0 02/02/17 19:33 Non-Rebreather 15.0 100 02/02/17 19:32 76 20 Non-Rebreather 15.0 100 02/02/17 19:32 97 Non-Rebreather 15.0 100 02/02/17 16:00 97.7 65 19 149/59 100 Nasal Cannula 15.0 Intake and Output 02/02/17 02/03/17 19:00 07:00 Intake Total 95 ml Output Total 50 ml 1075 ml Balance -50 ml -980 ml Intake Oral 95 ml Output Urine Total 50 ml 75 ml Hemodialysis UF 1000 ml Laboratory Tests 02/03/17 04:45: White Blood Count 10.1, Red Blood Count 2.87L, Hemoglobin 8.7L, Hematocrit 26.1L , Mean Corpuscular Volume 91, Mean Corpuscular Hemoglobin 30.4, Mean Corpuscular Hemoglobin Concent 33.4, Red Cell Distribution Width 15.0H, Platelet Count 62L, Mean Platelet Volume 7.8, Neutrophils (%) (Auto) , Lymphocytes (%) (Auto) , Monocytes (%) (Auto) , Eosinophils (%) (Auto) , Basophils (%) (Auto) , Differential Total Cells Counted 100, Neutrophils % ( Manual) 83H, Lymphocytes % (Manual) 12L, Monocytes % (Manual) 5, Eosinophils % ( Manual) 0, Basophils % (Manual) 0, Band Neutrophils 0, Platelet Estimate DecreasedL, Platelet Morphology Normal, Anisocytosis 1+, Sodium Level 141, Potassium Level 3.6, Chloride Level 93L, Carbon Dioxide Level 32H, Anion Gap 16H , Blood Urea Nitrogen 32#H, Creatinine 3.3H, Estimat Glomerular Filtration Rate , Glucose Level 79, Uric Acid 3.6, Calcium Level 7.9L, Phosphorus Level 5.2H, Magnesium Level 1.8, Total Bilirubin 0.3, Aspartate Amino Transf (AST/SGOT) 37, Alanine Aminotransferase (ALT/SGPT) 22, Alkaline Phosphatase 73, Pro-B-Type Natriuretic Peptide 20049T, Total Protein 4.8L, Albumin 2.7L, Globulin 2.1, Albumin/Globulin Ratio 1.2 Height (Feet): 5 Height (Inches): 1.00 Weight (Pounds): 200 Objective WDWN chronically ill appearing; on high flow NAD coarse breath sounds bilaterally without rhonchi or wheeze [id number] without MRG NABS nontender no HSM no CC; some edema nonfocal weak and confused FELIPE PATHAK Feb 03, 2017 15:29
[2017-02-04 04:00] VITALS: BP 104/70
[2017-02-04] MEDS: Aluminum Hydroxide Gel Susp 15ml ORAL SCH ×3 (06:00→18:31)
[2017-02-04] MEDS: NovoLOG Insulin Flexpen SUBQ SCH ×4 (06:30→21:00)
[2017-02-04 07:02] LABS: ALANINE AMINOTRANSFERASE 17 U/L (3-33); ALBUMIN/GLOBULIN RATIO 1.2 (1.0-2.7); ANION GAP 14 (5-15); ASPARTATE AMINO TRANSFERASE 26 U/L (5-40); CARBON DIOXIDE 35 mEQ/L (20-30); CHLORIDE 91 mEQ/L (98-107); CREATININE 4.5 mg/dL (0.5-0.9); HEMOLYSIS 2; PHOSPHORUS 4.9 mg/dL (2.5-4.8); POTASSIUM 3.6 mEQ/L (3.4-4.9); SODIUM 140 mEQ/L (135-145); TOTAL PROTEIN 5.1 g/dL (6.6-8.7); URIC ACID 4.6 mg/dL (3.0-7.5)
[2017-02-04 07:11] LABS: MEAN CORPUSCULAR HGB CONC 33.1 G/DL (32.0-36.0); MEAN CORPUSCULAR VOLUME 90 FL (80-99); MEAN PLATELET VOLUME 6.7 FL (6.5-10.1); PLATELET COUNT 59 K/UL (150-450); RED BLOOD COUNT 3.08 M/UL (4.20-5.40); RED CELL DISTRIBUTION WIDTH 14.9 % (11.6-14.8); WHITE BLOOD COUNT 11.8 K/UL (4.8-10.8)
[2017-02-04 08:34] VITALS: BP 136/58
--- NOTE | 2017-02-04 09:13 | General Progress Note ---
Assessment/Plan Status: unchanged Status Narrative Cr rising post HD Assessment/Plan ( Had long talk with daughter Gali 01/19 ) - Acute renal failure and hyperKalemia - Renal failure, likely diabetic nephropathy / HTN - Sepsis , Pneumonia, Respiratory failure and Hypoxia other - h/o Cellulitis in diabetic foot right LE - Decubitus ulcer - Dementia - Diabetes mellitus - Nonpressure ulcer to level of fascia right lateral ankle - S/P ORIF right ankle Plan: Poor po is the main issue ? PEG? Had permacath 01/30 HD 02/02 next HD 02/05 monitor WBCs adjust Phos binders Monitor renal parameters and Vanco level- ARTUR Kidney done last admission- unremarkable Adjust BP meds- Avoid Nephrotoxics- discussed with CM Per orders Subjective ROS Limited/Unobtainable: No Constitutional: Reports: malaise, weakness Allergies: Coded Allergies: MORPHINE (Verified Adverse Reaction, Severe, PARADOXICAL REACTION, 10/08/12 ) Objective Last 24 Hour Vital Signs Date Time Temp Pulse Resp B/P Pulse Ox O2 Delivery O2 Flow Rate FiO2 02/04/17 08:34 97.7 78 20 136/58 97 Non-Rebreather 93.0 02/04/17 04:00 98.3 74 18 104/70 90 Non-Rebreather 15.0 02/03/17 23:53 97.7 81 18 121/57 96 Non-Rebreather 15.0 02/03/17 19:00 98.0 80 20 143/43 98 Ambu-Bag 14.0 02/03/17 18:21 78 161/65 02/03/17 16:00 97.3 78 22 161/65 97 Ambu-Bag 14.0 02/03/17 12:00 96.7 74 18 143/61 98 Non-Rebreather 15.0 Intake and Output 02/03/17 02/04/17 19:00 07:00 Intake Total 535 ml 295 ml Output Total 200 ml 115 ml Balance 335 ml 180 ml Intake Oral 480 ml 240 ml IV Total 55 ml 55 ml Output Urine Total 200 ml 115 ml Laboratory Tests 02/04/17 05:40: White Blood Count 11.8H, Red Blood Count 3.08L, Hemoglobin 9.2L, Hematocrit 27.9L, Mean Corpuscular Volume 90, Mean Corpuscular Hemoglobin 30.0, Mean Corpuscular Hemoglobin Concent 33.1, Red Cell Distribution Width 14.9H, Platelet Count 59L, Mean Platelet Volume 6.7, Neutrophils (%) (Auto) , Lymphocytes (%) (Auto) , Monocytes (%) (Auto) , Eosinophils (%) (Auto) , Basophils (%) (Auto) , Neutrophils % (Manual) [Pending], Lymphocytes % (Manual) [Pending], Platelet Estimate [Pending], Platelet Morphology [Pending], Sodium Level 140, Potassium Level 3.6, Chloride Level 91L, Carbon Dioxide Level 35H, Anion Gap 14, Blood Urea Nitrogen 51H, Creatinine 4.5H, Estimat Glomerular Filtration Rate , Glucose Level 97, Uric Acid 4.6, Calcium Level 8.0L, Phosphorus Level 4.9H, Total Bilirubin 0.4, Aspartate Amino Transf (AST/SGOT) 26 , Alanine Aminotransferase (ALT/SGPT) 17, Alkaline Phosphatase 82, Total Protein 5.1L, Albumin 2.8L, Globulin 2.3, Albumin/Globulin Ratio 1.2, Random Vancomycin Level 11.7 Height (Feet): 5 Height (Inches): 1.00 Weight (Pounds): 200 General Appearance: no apparent distress Cardiovascular: normal rate Respiratory/Chest: decreased breath sounds Abdomen: soft Objective other PE not changed BERTRAM CASTAÑEDA Feb 04, 2017 09:13
[2017-02-04] MEDS: Docusate 100mg tablet ORAL SCH ×3 (09:14→18:30)
[2017-02-04] MEDS: Ceftaroline 200 MG in NS 55 ML IV SCH ×2 (09:14→21:15)
[2017-02-04] MEDS: Analgesic Balm 15gm TOPIC SCH ×4 (09:15→21:15)
[2017-02-04 09:58] LABS: ANISOCYTOSIS 1+; BAND NEUTROPHILS % (MANUAL) 0 % (0-8); BASOPHILS % (MANUAL) 0 % (0-2); EOSINOPHILS % (MANUAL) 3 % (0-3); HYPOCHROMASIA 1+; LYMPHOCYTES % (MANUAL) 7 % (20-45); NEUTROPHILS % (MANUAL) 85 % (45-75); PLATELET ESTIMATE DECREASED; PLATELET MORPHOLOGY NORMAL; TOTAL CELLS COUNTED 100
[2017-02-04 10:01] LABS: ABG ALLEN TEST POSITIVE; ABG BASE EXCESS 7.7; ABG PCO2 52.2 mmHg (35.0-45.0)
[2017-02-04 12:07] VITALS: BP 132/62
[2017-02-04] MEDS ORDERED: NS 275ml ONE (13:41)
--- NOTE | 2017-02-04 14:27 | Diagnostic Imaging Report ---
Clinical Indication: SOB Technique: Spiral acquisitions obtained through the chest. No IV contrast utilized, referring physician request. Multiplanar reconstructions generated. Total dose length product 963 mGycm. CTDIvol(s) 28 mGy Comparison: None Findings:The are bilateral pleural effusions, moderate on the right, small to moderate on the left. There is extensive and diffuse pulmonary parenchymal disease, consisting mostly of airspace opacities but also with an interstitial component. There is a mass in the right middle lobe. This measures 17 mm long axis dimension. The heart is enlarged. No pericardial effusion. There are extensive coronary artery calcifications. There are enlarged mediastinal lymph nodes. The largest node is a right paratracheal node which measures 34 mm long axis dimension. There is a right jugular tunneled dialysis catheter, tip of which projects at level of the cavoatrial junction. The ascending thoracic aorta is mildly ectatic, measuring 37 mm diameter. The main pulmonary artery is ectatic, measuring 36 mm diameter. The included thyroid is unremarkable. No axillary or chest wall mass or adenopathy. There is mild degenerative lumbar spondylosis. There is a compression fracture deformity of the T12 vertebral body. This is also evident on the CT of the upper pelvis on 05/20/2013. The included upper abdominal viscera are unremarkable, except for evidence of prior cholecystectomy Impression: Extensive bilateral pulmonary parenchymal disease, as described. Appearance is nonspecific, could be be due to acute pulmonary edema, infectious or noninfectious pulmonary inflammation, or could to some extent represent chronic changes 17 mm right middle lobe mass. 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 Bilateral right greater than left pleural effusions Mediastinal lymphadenopathy Cardiomegaly Ectatic main pulmonary artery the raises possibility of pulmonary arterial hypertension Dialysis catheter T12 compression fracture deformity, old Coronary artery calcifications The CT scanner at [facility] is accredited by the [employer] and the scans are performed using protocols designed to limit radiation exposure to as low as reasonably achievable to attain images of sufficient resolution adequate for diagnostic evaluation.
[2017-02-04 16:00] VITALS: BP 134/63
--- NOTE | 2017-02-04 16:31 | General Progress Note ---
Assessment/Plan Assessment/Plan hypoxemia respiratory failure pulmonary infiltrates thrombocytopenia renal failure ALOC chronic encephalopathy sepsis pulmonary infiltrates noted which are extensive PLAN dc heparin, plavix, aspirin follow up cbc monitor renal function d/w renal as to ongoing function antibiotics taper fio2 follow up abg reviewed ct chest taking po; maintain with caution swallow evaluation updated son impression, plan, and exam edited and reviewed in detail care discussed with RN Subjective Allergies: Coded Allergies: MORPHINE (Verified Adverse Reaction, Severe, PARADOXICAL REACTION, 10/08/12 ) Subjective d/w family still on high flow oxygen Objective Last 24 Hour Vital Signs Date Time Temp Pulse Resp B/P Pulse Ox O2 Delivery O2 Flow Rate FiO2 02/04/17 12:07 98.1 79 20 132/62 95 Non-Rebreather 15.0 02/04/17 08:34 97.7 78 20 136/58 97 Non-Rebreather 93.0 02/04/17 04:00 98.3 74 18 104/70 90 Non-Rebreather 15.0 02/03/17 23:53 97.7 81 18 121/57 96 Non-Rebreather 15.0 02/03/17 19:00 98.0 80 20 143/43 98 Ambu-Bag 14.0 02/03/17 18:21 78 161/65 Intake and Output 02/03/17 02/04/17 19:00 07:00 Intake Total 535 ml 295 ml Output Total 200 ml 115 ml Balance 335 ml 180 ml Intake Oral 480 ml 240 ml IV Total 55 ml 55 ml Output Urine Total 200 ml 115 ml Laboratory Tests 02/04/17 05:40: White Blood Count 11.8H, Red Blood Count 3.08L, Hemoglobin 9.2L, Hematocrit 27.9L, Mean Corpuscular Volume 90, Mean Corpuscular Hemoglobin 30.0, Mean Corpuscular Hemoglobin Concent 33.1, Red Cell Distribution Width 14.9H, Platelet Count 59L, Mean Platelet Volume 6.7, Neutrophils (%) (Auto) , Lymphocytes (%) (Auto) , Monocytes (%) (Auto) , Eosinophils (%) (Auto) , Basophils (%) (Auto) , Differential Total Cells Counted 100, Neutrophils % ( Manual) 85H, Lymphocytes % (Manual) 7L, Monocytes % (Manual) 5, Eosinophils % ( Manual) 3, Basophils % (Manual) 0, Band Neutrophils 0, Platelet Estimate DecreasedL, Platelet Morphology Normal, Hypochromasia 1+, Anisocytosis 1+, Sodium Level 140, Potassium Level 3.6, Chloride Level 91L, Carbon Dioxide Level 35H, Anion Gap 14, Blood Urea Nitrogen 51H, Creatinine 4.5H, Estimat Glomerular Filtration Rate , Glucose Level 97, Uric Acid 4.6, Calcium Level 8.0L, Phosphorus Level 4.9H, Total Bilirubin 0.4, Aspartate Amino Transf (AST/SGOT) 26 , Alanine Aminotransferase (ALT/SGPT) 17, Alkaline Phosphatase 82, Total Protein 5.1L, Albumin 2.8L, Globulin 2.3, Albumin/Globulin Ratio 1.2, Random Vancomycin Level 11.7 02/04/17 09:55: Arterial Blood pH 7.422, Arterial Blood Partial Pressure CO2 52.2H, Arterial Blood Partial Pressure O2 59.4L, Arterial Blood HCO3 33.3H, Arterial Blood Oxygen Saturation 88.3L, Arterial Blood Base Excess 7.7, Levy Test Positive Height (Feet): 5 Height (Inches): 1.00 Weight (Pounds): 200 Objective WDWN chronically ill appearing; on high flow NAD coarse breath sounds bilaterally without rhonchi or wheeze [id number] without MRG NABS nontender no HSM no CC; some edema nonfocal weak and confused FELIPE PATHAK Feb 04, 2017 16:31
--- NOTE | 2017-02-04 19:21 | Infectious Diseases Prog Note ---
Assessment/Plan Assessment/Plan ASSESSMENT: 76 y/o female with: // Probable UTI - UCx(-) // Hypoxia, possible HCAP - CXR 02/02 : Extensive bilateral interstitial and airspace opacities, unchanged // h/o CoNS bacteremia 11/05 ( 01/09 ) ?real ( PICC tip+ ) vs contaminant r/o recurrence/persistence - surveillance BCx(-) // h/o right ankle cellulitis / osteomyelitis / hardware infection SP incomplete Rx ( recommended to complete 6 weeks IV daptomycin, cefepime ( end ), but daughter apparently declined at last discharge per documentation ) - SP hardware removal 12/15 - no culture sent - 3P bone scan: 3 phase increased activity in region of distal aspect of right fibula compatible with hardware loosening and/or osteomyelitis - XR: surgical hardware seen reducing old healed distal fibular and medial malleolar fractures. No acute fractures. No dislocations. Bones are demineralized. - elevated ESR, CRP - h/o right ankle ORIF // Probable sepsis,SP // Leukocytosis , SP // ARF on CKD --> IHD per renal SP placement of tunneled right jugular hemodialysis catheter. 01/29 // Dementia // DM2 - HbA1c 6.1% // h/o CAD - trop(-) x1 // NH resident // VRE colonized // No ABX allergies // Full Code PLAN: - cont Teflaro d# 8 / 10 ( converage of possible MRSA and avoiding Nephro toxic and due to low Plt ) ( 01/28 SP IV cefepime d# 10 IV Vanco d# 2 ) - monitor CBC, temperatures - monitor BMP - monitor CXR - respiratory support prn Subjective Constitutional: Denies: anorexia, chills, drenching sweats, fatigue, fever, no symptoms, other Allergies: Coded Allergies: MORPHINE (Verified Adverse Reaction, Severe, PARADOXICAL REACTION, 10/08/12 ) Objective Vital Signs Last 24 Hour Vital Signs Date Time Temp Pulse Resp B/P Pulse Ox O2 Delivery O2 Flow Rate FiO2 02/04/17 18:30 85 134/63 02/04/17 16:00 97.7 85 22 134/63 92 Room Air 02/04/17 12:07 98.1 79 20 132/62 95 Non-Rebreather 15.0 02/04/17 08:34 97.7 78 20 136/58 97 Non-Rebreather 93.0 02/04/17 06:55 Non-Rebreather 15.0 100 02/04/17 06:55 74 18 Non-Rebreather 15.0 100 02/04/17 06:55 96 Non-Rebreather 15.0 100 02/04/17 04:00 98.3 74 18 104/70 90 Non-Rebreather 15.0 02/03/17 23:53 97.7 81 18 121/57 96 Non-Rebreather 15.0 Height (Feet): 5 Height (Inches): 1.00 Weight (Pounds): 200 HEENT: mucous membranes moist Respiratory/Chest: normal breath sounds Cardiovascular: normal rate Abdomen: normal bowel sounds Laboratory Tests Test 02/04/17 05:40 02/04/17 09:55 White Blood Count 11.8 K/UL (4.8-10.8) H Red Blood Count 3.08 M/UL (4.20-5.40) L Hemoglobin 9.2 G/DL (12.0-16.0) L Hematocrit 27.9 % (37.0-47.0) L Mean Corpuscular Volume 90 FL (80-99) Mean Corpuscular Hemoglobin 30.0 PG (27.0-31.0) Mean Corpuscular Hemoglobin Concent 33.1 G/DL (32.0-36.0) Red Cell Distribution Width 14.9 % (11.6-14.8) H Platelet Count 59 K/UL (150-450) L Mean Platelet Volume 6.7 FL (6.5-10.1) Neutrophils (%) (Auto) % (45.0-75.0) Lymphocytes (%) (Auto) % (20.0-45.0) Monocytes (%) (Auto) % (1.0-10.0) Eosinophils (%) (Auto) % (0.0-3.0) Basophils (%) (Auto) % (0.0-2.0) Differential Total Cells Counted 100 Neutrophils % (Manual) 85 % (45-75) H Lymphocytes % (Manual) 7 % (20-45) L Monocytes % (Manual) 5 % (1-10) Eosinophils % (Manual) 3 % (0-3) Basophils % (Manual) 0 % (0-2) Band Neutrophils 0 % (0-8) Platelet Estimate Decreased L Platelet Morphology Normal Hypochromasia 1+ Anisocytosis 1+ Sodium Level 140 mEQ/L (135-145) Potassium Level 3.6 mEQ/L (3.4-4.9) Chloride Level 91 mEQ/L (98-107) L Carbon Dioxide Level 35 mEQ/L (20-30) H Anion Gap 14 (5-15) Blood Urea Nitrogen 51 mg/dL (7-23) H Creatinine 4.5 mg/dL (0.5-0.9) H Estimat Glomerular Filtration Rate mL/min (>60) Glucose Level 97 mg/dL (74-106) Uric Acid 4.6 mg/dL (3.0-7.5) Calcium Level 8.0 mg/dL (8.6-10.2) L Phosphorus Level 4.9 mg/dL (2.5-4.8) H Total Bilirubin 0.4 mg/dL (0.0-1.2) Aspartate Amino Transf (AST/SGOT) 26 U/L (5-40) Alanine Aminotransferase (ALT/SGPT) 17 U/L (3-33) Alkaline Phosphatase 82 U/L (35-104) Total Protein 5.1 g/dL (6.6-8.7) L Albumin 2.8 g/dL (3.5-5.2) L Globulin 2.3 g/dL Albumin/Globulin Ratio 1.2 (1.0-2.7) Random Vancomycin Level 11.7 ug/mL Arterial Blood pH 7.422 (7.350-7.450) Arterial Blood Partial Pressure CO2 52.2 mmHg (35.0-45.0) H Arterial Blood Partial Pressure O2 59.4 mmHg (75.0-100.0) L Arterial Blood HCO3 33.3 mmol/L (22.0-26.0) H Arterial Blood Oxygen Saturation 88.3 % (92.0-98.0) L Arterial Blood Base Excess 7.7 Levy Test Positive Current Medications Medications (Trade) Dose Ordered Sig/Rina Route PRN Reason Start Time Stop Time Status Last Admin Dose Admin Acetaminophen (Tylenol) 650 mg Q6H PRN ORAL Mild Pain/Temp > 100.5 01/21/17 19:00 02/20/17 18:59 02/02/17 14:44 Acetaminophen/ Hydrocodone Bitart ([place] 5/325) 1 tab Q4H PRN ORAL Moderate Pain (Pain Scale 4-6) 01/30/17 19:45 02/06/17 19:44 02/02/17 20:21 Albuterol/ Ipratropium (DuoNeb 0.5-3(2.5)mg/3ml) 3 ml Q4H PRN HHN sob 02/01/17 13:45 02/06/17 13:44 Albuterol/ Ipratropium (DuoNeb 0.5-3(2.5)mg/3ml) 3 ml Q8H PRN HHN Shortness of Breath 02/02/17 16:00 02/07/17 15:59 Aluminum Hydroxide 1920 mg 1,920 mg Q6HR ORAL 01/26/17 11:00 02/25/17 10:59 02/04/17 18:31 Amlodipine Besylate (Norvasc) 5 mg BID ORAL 02/04/17 18:00 03/06/17 17:59 02/04/17 18:30 Ceftaroline Fosamil/Sodium Chloride (Teflaro/Sodium Chloride) 55 ml @ 55 mls/hr Q12HR IV 01/28/17 12:00 02/06/17 23:59 02/04/17 09:14 Dextrose (Dextrose 50%) STAT PRN IV Hypoglycemia 01/21/17 02:30 02/20/17 02:29 Docusate Sodium (Colace) 100 mg TID ORAL 01/21/17 13:00 02/20/17 12:59 02/04/17 18:30 Insulin Aspart (NovoLOG) BEFORE MEALS AND HS SUBQ 01/20/17 21:00 02/19/17 20:59 02/04/17 16:27 Menthol/Methyl Salicylate (Bengay) 1 applic FOUR TIMES A DAY TOPIC 02/02/17 18:00 03/04/17 17:59 02/04/17 18:30 Nitroglycerin (Ntg) 0.4 mg Q5M X 3 DOSES PRN SL Prn Chest Pain 01/20/17 16:45 02/19/17 16:44 Ondansetron HCl (Zofran) 4 mg Q6H PRN IVP Nausea & Vomiting 01/20/17 20:30 02/19/17 20:29 02/02/17 16:38 Pantoprazole (Protonix) 40 mg EVERY 12 HOURS ORAL 01/25/17 21:00 02/24/17 20:59 02/04/17 09:14 Polyethylene Glycol (Miralax) 17 gm DAILYPRN PRN ORAL Constipation 01/21/17 02:30 02/20/17 02:29 01/29/17 13:10 Sevelamer Carbonate (Renvela) 1,600 mg THREE TIMES A DAY ORAL 02/04/17 13:00 03/06/17 12:59 02/04/17 18:30 GISELLA JEROME M.D. Feb 04, 2017 19:21
[2017-02-04 20:10] VITALS: BP 162/69
[2017-02-04] MEDS: Norco 5mg/325mg tab ORAL PRN (21:15)
[2017-02-04 21:52] VITALS: BP 126/59
[2017-02-05] VITALS: BP 135/57
[2017-02-05] MEDS: Aluminum Hydroxide Gel Susp 15ml ORAL SCH ×4 (00:49→16:56)
[2017-02-05 04:00] VITALS: BP 129/61
[2017-02-05] MEDS: NovoLOG Insulin Flexpen SUBQ SCH ×4 (06:30→21:58)
[2017-02-05 07:31] LABS: ALANINE AMINOTRANSFERASE 16 U/L (3-33); ALBUMIN/GLOBULIN RATIO 0.9 (1.0-2.7); ANION GAP 15 (5-15); ASPARTATE AMINO TRANSFERASE 27 U/L (5-40); CALCIUM 8.1 mg/dL (8.6-10.2); CARBON DIOXIDE 33 mEQ/L (20-30); CHLORIDE 91 mEQ/L (98-107); CREATININE 5.7 mg/dL (0.5-0.9); HEMOLYSIS 12; PHOSPHORUS 6.2 mg/dL (2.5-4.8); POTASSIUM 4.1 mEQ/L (3.4-4.9); SODIUM 139 mEQ/L (135-145); TOTAL PROTEIN 5.2 g/dL (6.6-8.7); URIC ACID 5.6 mg/dL (3.0-7.5)
[2017-02-05 07:49] VITALS: BP 149/62
--- NOTE | 2017-02-05 08:29 | General Progress Note ---
Assessment/Plan Assessment/Plan hypoxemia respiratory failure pulmonary infiltrates thrombocytopenia renal failure ALOC chronic encephalopathy sepsis pulmonary infiltrates noted which are extensive PLAN off heparin, plavix, aspirin follow up cbc and platelets monitor renal function on HD d/w renal as to ongoing status; continue to UF antibiotics noted taper fio2 follow up abg for co2 retention reviewed ct chest with son taking po; maintain with caution swallow evaluation noted update son daily impression, plan, and exam edited and reviewed in detail care discussed with RN Subjective Allergies: Coded Allergies: MORPHINE (Verified Adverse Reaction, Severe, PARADOXICAL REACTION, 10/08/12 ) Subjective d/w son in detail still on high flow oxygen too ill for biopsy son does not want biopsy at this time Objective Last 24 Hour Vital Signs Date Time Temp Pulse Resp B/P Pulse Ox O2 Delivery O2 Flow Rate FiO2 02/05/17 07:49 97.7 73 24 149/62 93 02/05/17 04:00 97.3 84 20 129/61 Non-Rebreather 15.0 02/05/17 00:00 96.9 70 22 135/57 96 Non-Rebreather 15.0 02/04/17 22:14 97.7 02/04/17 21:52 70 126/59 02/04/17 20:10 97.7 79 20 162/69 94 Room Air 02/04/17 20:00 Non-Rebreather 15.0 100 02/04/17 19:59 82 20 Non-Rebreather 15.0 100 02/04/17 19:59 96 Non-Rebreather 15.0 100 02/04/17 18:30 85 134/63 02/04/17 16:00 97.7 85 22 134/63 92 Room Air 02/04/17 12:07 98.1 79 20 132/62 95 Non-Rebreather 15.0 02/04/17 08:34 97.7 78 20 136/58 97 Non-Rebreather 93.0 Intake and Output 02/04/17 02/05/17 19:00 07:00 Intake Total 55 ml 435 ml Output Total 20 ml 95 ml Balance 35 ml 340 ml Intake Oral 380 ml IV Total 55 ml 55 ml Output Urine Total 20 ml 95 ml Laboratory Tests 02/04/17 09:55: Arterial Blood pH 7.422, Arterial Blood Partial Pressure CO2 52.2H, Arterial Blood Partial Pressure O2 59.4L, Arterial Blood HCO3 33.3H, Arterial Blood Oxygen Saturation 88.3L, Arterial Blood Base Excess 7.7, Levy Test Positive 02/05/17 05:35: Sodium Level 139, Potassium Level 4.1, Chloride Level 91L, Carbon Dioxide Level 33H, Anion Gap 15, Blood Urea Nitrogen 66H, Creatinine 5.7H, Estimat Glomerular Filtration Rate , Glucose Level 90, Uric Acid 5.6, Calcium Level 8.1L, Phosphorus Level 6.2H, Magnesium Level 2.0, Total Bilirubin 0.4, Aspartate Amino Transf (AST/SGOT) 27, Alanine Aminotransferase (ALT/SGPT) 16, Alkaline Phosphatase 87, Pro-B-Type Natriuretic Peptide 34195K, Total Protein 5.2L, Albumin 2.5L, Globulin 2.7, Albumin/Globulin Ratio 0.9L Height (Feet): 5 Height (Inches): 1.00 Weight (Pounds): 200 Objective WDWN chronically ill appearing; on high flow NAD coarse breath sounds bilaterally without rhonchi or wheeze [id number] without MRG NABS nontender no HSM no CC; persistent edema nonfocal weak and confused FELIPE PATHAK Feb 05, 2017 08:29
[2017-02-05] MEDS: Analgesic Balm 15gm TOPIC SCH ×4 (08:52→21:57)
[2017-02-05] MEDS: Ceftaroline 200 MG in NS 55 ML IV SCH ×2 (08:52→21:56)
[2017-02-05] MEDS: Docusate 100mg tablet ORAL SCH ×3 (08:52→16:55)
--- NOTE | 2017-02-05 09:40 | Infectious Diseases Prog Note ---
Assessment/Plan Assessment/Plan ASSESSMENT: 76 y/o female with: // Probable UTI - UCx(-) // Hypoxia, possible HCAP - CXR 02/02 : Extensive bilateral interstitial and airspace opacities, unchanged // h/o CoNS bacteremia 11/05 ( 01/09 ) ?real ( PICC tip+ ) vs contaminant r/o recurrence/persistence - surveillance BCx(-) // h/o right ankle cellulitis / osteomyelitis / hardware infection SP incomplete Rx ( recommended to complete 6 weeks IV daptomycin, cefepime ( end ), but daughter apparently declined at last discharge per documentation ) - SP hardware removal 12/15 - no culture sent - 3P bone scan: 3 phase increased activity in region of distal aspect of right fibula compatible with hardware loosening and/or osteomyelitis - XR: surgical hardware seen reducing old healed distal fibular and medial malleolar fractures. No acute fractures. No dislocations. Bones are demineralized. - elevated ESR, CRP - h/o right ankle ORIF // Probable sepsis,SP // Leukocytosis , SP // ARF on CKD --> IHD per renal SP placement of tunneled right jugular hemodialysis catheter. 01/29 // Dementia // DM2 - HbA1c 6.1% // h/o CAD - trop(-) x1 // NH resident // VRE colonized // No ABX allergies // Full Code PLAN: - cont Teflaro d# 9 / 10 ( converage of possible MRSA and avoiding Nephro toxic and due to low Plt ) ( 01/28 SP IV cefepime d# 10 IV Vanco d# 2 ) - monitor CBC, temperatures - monitor BMP - monitor CXR - respiratory support prn Subjective Constitutional: Denies: anorexia, chills, drenching sweats, fatigue, fever, no symptoms, other Allergies: Coded Allergies: MORPHINE (Verified Adverse Reaction, Severe, PARADOXICAL REACTION, 10/08/12 ) Objective Vital Signs Last 24 Hour Vital Signs Date Time Temp Pulse Resp B/P Pulse Ox O2 Delivery O2 Flow Rate FiO2 02/05/17 07:49 97.7 73 24 149/62 93 02/05/17 07:30 96 Non-Rebreather 15.0 100 02/05/17 07:30 Non-Rebreather 15.0 100 02/05/17 07:30 74 22 Non-Rebreather 15.0 100 02/05/17 04:00 97.3 84 20 129/61 Non-Rebreather 15.0 02/05/17 00:00 96.9 70 22 135/57 96 Non-Rebreather 15.0 02/04/17 22:14 97.7 02/04/17 21:52 70 126/59 02/04/17 20:10 97.7 79 20 162/69 94 Room Air 02/04/17 20:00 Non-Rebreather 15.0 100 02/04/17 19:59 82 20 Non-Rebreather 15.0 100 02/04/17 19:59 96 Non-Rebreather 15.0 100 02/04/17 18:30 85 134/63 02/04/17 16:00 97.7 85 22 134/63 92 Room Air 02/04/17 12:07 98.1 79 20 132/62 95 Non-Rebreather 15.0 Height (Feet): 5 Height (Inches): 1.00 Weight (Pounds): 200 HEENT: anicteric Respiratory/Chest: lungs clear Cardiovascular: normal rate Abdomen: no organomegaly Laboratory Tests Test 02/04/17 09:55 02/05/17 05:35 Arterial Blood pH 7.422 (7.350-7.450) Arterial Blood Partial Pressure CO2 52.2 mmHg (35.0-45.0) H Arterial Blood Partial Pressure O2 59.4 mmHg (75.0-100.0) L Arterial Blood HCO3 33.3 mmol/L (22.0-26.0) H Arterial Blood Oxygen Saturation 88.3 % (92.0-98.0) L Arterial Blood Base Excess 7.7 Levy Test Positive Sodium Level 139 mEQ/L (135-145) Potassium Level 4.1 mEQ/L (3.4-4.9) Chloride Level 91 mEQ/L (98-107) L Carbon Dioxide Level 33 mEQ/L (20-30) H Anion Gap 15 (5-15) Blood Urea Nitrogen 66 mg/dL (7-23) H Creatinine 5.7 mg/dL (0.5-0.9) H Estimat Glomerular Filtration Rate mL/min (>60) Glucose Level 90 mg/dL (74-106) Uric Acid 5.6 mg/dL (3.0-7.5) Calcium Level 8.1 mg/dL (8.6-10.2) L Phosphorus Level 6.2 mg/dL (2.5-4.8) H Magnesium Level 2.0 mg/dL (1.7-2.5) Total Bilirubin 0.4 mg/dL (0.0-1.2) Aspartate Amino Transf (AST/SGOT) 27 U/L (5-40) Alanine Aminotransferase (ALT/SGPT) 16 U/L (3-33) Alkaline Phosphatase 87 U/L (35-104) Pro-B-Type Natriuretic Peptide 49718 pg/mL (0-450) H Total Protein 5.2 g/dL (6.6-8.7) L Albumin 2.5 g/dL (3.5-5.2) L Globulin 2.7 g/dL Albumin/Globulin Ratio 0.9 (1.0-2.7) L Current Medications Medications (Trade) Dose Ordered Sig/Rina Route PRN Reason Start Time Stop Time Status Last Admin Dose Admin Acetaminophen (Tylenol) 650 mg Q6H PRN ORAL Mild Pain/Temp > 100.5 01/21/17 19:00 02/20/17 18:59 02/02/17 14:44 Acetaminophen/ Hydrocodone Bitart ([place] 5/325) 1 tab Q4H PRN ORAL Moderate Pain (Pain Scale 4-6) 01/30/17 19:45 02/06/17 19:44 02/04/17 21:15 Albuterol/ Ipratropium (DuoNeb 0.5-3(2.5)mg/3ml) 3 ml Q4H PRN HHN sob 02/01/17 13:45 02/06/17 13:44 Albuterol/ Ipratropium (DuoNeb 0.5-3(2.5)mg/3ml) 3 ml Q8H PRN HHN Shortness of Breath 02/02/17 16:00 02/07/17 15:59 Aluminum Hydroxide 1920 mg 1,920 mg Q6HR ORAL 01/26/17 11:00 02/25/17 10:59 02/05/17 06:32 Amlodipine Besylate (Norvasc) 5 mg BID ORAL 02/04/17 18:00 03/06/17 17:59 02/04/17 18:30 Ceftaroline Fosamil/Sodium Chloride (Teflaro/Sodium Chloride) 55 ml @ 55 mls/hr Q12HR IV 01/28/17 12:00 02/06/17 23:59 02/04/17 21:15 Dextrose (Dextrose 50%) STAT PRN IV Hypoglycemia 01/21/17 02:30 02/20/17 02:29 Docusate Sodium (Colace) 100 mg TID ORAL 01/21/17 13:00 02/20/17 12:59 02/04/17 18:30 Insulin Aspart (NovoLOG) BEFORE MEALS AND HS SUBQ 01/20/17 21:00 02/19/17 20:59 02/04/17 16:27 Menthol/Methyl Salicylate (Bengay) 1 applic FOUR TIMES A DAY TOPIC 02/02/17 18:00 03/04/17 17:59 02/04/17 21:15 Nitroglycerin (Ntg) 0.4 mg Q5M X 3 DOSES PRN SL Prn Chest Pain 01/20/17 16:45 02/19/17 16:44 Ondansetron HCl (Zofran) 4 mg Q6H PRN IVP Nausea & Vomiting 01/20/17 20:30 02/19/17 20:29 02/02/17 16:38 Pantoprazole (Protonix) 40 mg EVERY 12 HOURS ORAL 01/25/17 21:00 02/24/17 20:59 02/04/17 21:15 Polyethylene Glycol (Miralax) 17 gm DAILYPRN PRN ORAL Constipation 01/21/17 02:30 02/20/17 02:29 01/29/17 13:10 Sevelamer Carbonate (Renvela) 1,600 mg THREE TIMES A DAY ORAL 02/04/17 13:00 03/06/17 12:59 02/04/17 18:30 GISELLA JEROME M.D. Feb 05, 2017 09:40
[2017-02-05 12:00] VITALS: BP 122/58
--- NOTE | 2017-02-05 13:11 | General Progress Note ---
Assessment/Plan Status: unchanged Assessment/Plan ( Had long talk with daughter Gali 01/19 ) - Acute renal failure and hyperKalemia - Renal failure, likely diabetic nephropathy / HTN - Sepsis , Pneumonia, Respiratory failure and Hypoxia other - h/o Cellulitis in diabetic foot right LE - Decubitus ulcer - Dementia - Diabetes mellitus - Nonpressure ulcer to level of fascia right lateral ankle - S/P ORIF right ankle Plan: Poor po is the main issue ? PEG? Had permacath 01/30 HD 02/05 monitor WBCs adjust Phos binders Monitor renal parameters and Vanco level- ARTUR Kidney done last admission- unremarkable Adjust BP meds- Avoid Nephrotoxics- discussed with CM Per orders Subjective ROS Limited/Unobtainable: No Constitutional: Reports: malaise Allergies: Coded Allergies: MORPHINE (Verified Adverse Reaction, Severe, PARADOXICAL REACTION, 10/08/12 ) Objective Last 24 Hour Vital Signs Date Time Temp Pulse Resp B/P Pulse Ox O2 Delivery O2 Flow Rate FiO2 02/05/17 11:45 Non-Rebreather 16.0 02/05/17 08:10 Non-Rebreather 15.0 02/05/17 07:49 97.7 73 24 149/62 93 02/05/17 07:30 96 Non-Rebreather 15.0 100 02/05/17 07:30 Non-Rebreather 15.0 100 02/05/17 07:30 74 22 Non-Rebreather 15.0 100 02/05/17 04:00 97.3 84 20 129/61 Non-Rebreather 15.0 02/05/17 00:00 96.9 70 22 135/57 96 Non-Rebreather 15.0 02/04/17 22:14 97.7 02/04/17 21:52 70 126/59 02/04/17 20:10 97.7 79 20 162/69 94 Room Air 02/04/17 20:00 Non-Rebreather 15.0 100 02/04/17 19:59 82 20 Non-Rebreather 15.0 100 02/04/17 19:59 96 Non-Rebreather 15.0 100 02/04/17 18:30 85 134/63 02/04/17 16:00 97.7 85 22 134/63 92 Room Air Intake and Output 02/04/17 02/05/17 19:00 07:00 Intake Total 55 ml 435 ml Output Total 20 ml 95 ml Balance 35 ml 340 ml Intake Oral 380 ml IV Total 55 ml 55 ml Output Urine Total 20 ml 95 ml Laboratory Tests 02/05/17 05:35: Sodium Level 139, Potassium Level 4.1, Chloride Level 91L, Carbon Dioxide Level 33H, Anion Gap 15, Blood Urea Nitrogen 66H, Creatinine 5.7H, Estimat Glomerular Filtration Rate , Glucose Level 90, Uric Acid 5.6, Calcium Level 8.1L, Phosphorus Level 6.2H, Magnesium Level 2.0, Total Bilirubin 0.4, Aspartate Amino Transf (AST/SGOT) 27, Alanine Aminotransferase (ALT/SGPT) 16, Alkaline Phosphatase 87, Pro-B-Type Natriuretic Peptide 28314Z, Total Protein 5.2L, Albumin 2.5L, Globulin 2.7, Albumin/Globulin Ratio 0.9L Height (Feet): 5 Height (Inches): 1.00 Weight (Pounds): 200 General Appearance: lethargic, confused Respiratory/Chest: decreased breath sounds Abdomen: soft Objective other PE not changed BERTRAM CASTAÑEDA Feb 05, 2017 13:11
[2017-02-05 16:09] VITALS: BP 136/56
[2017-02-05 20:04] VITALS: BP 143/59
[2017-02-05] MEDS: Norco 5mg/325mg tab ORAL PRN (21:57)
[2017-02-06] VITALS (7 sets, daily range): BP systolic 143–163; BP diastolic 55–74
[2017-02-06] MEDS: Aluminum Hydroxide Gel Susp 15ml ORAL SCH ×4 (06:00→18:00)
[2017-02-06] MEDS: NovoLOG Insulin Flexpen SUBQ SCH ×4 (06:30→21:00)
[2017-02-06] MEDS: Ceftaroline 200 MG in NS 55 ML IV SCH (08:28)
[2017-02-06] MEDS: Docusate 100mg tablet ORAL SCH ×3 (08:29→19:37)
[2017-02-06] MEDS: Analgesic Balm 15gm TOPIC SCH ×4 (08:30→22:29)
--- NOTE | 2017-02-06 08:39 | General Progress Note ---
Assessment/Plan Assessment/Plan hypoxemia respiratory failure pulmonary infiltrates thrombocytopenia renal failure ALOC chronic encephalopathy sepsis pulmonary infiltrates noted which are extensive PLAN off heparin, plavix, aspirin follow up cbc and platelets monitor renal function on HD continue to UF antibiotics noted taper fio2 follow up abg for co2 retention and poor oxygenation reviewed ct chest with son taking po; maintain with caution swallow evaluation noted follow up chest xr update son daily impression, plan, and exam edited and reviewed in detail care discussed with RN Subjective Allergies: Coded Allergies: MORPHINE (Verified Adverse Reaction, Severe, PARADOXICAL REACTION, 10/08/12 ) Subjective still on high flow oxygen too ill for biopsy son does not want biopsy at this time no other changes Objective Last 24 Hour Vital Signs Date Time Temp Pulse Resp B/P Pulse Ox O2 Delivery O2 Flow Rate FiO2 02/06/17 08:30 85 149/69 02/06/17 08:01 97.7 85 16 149/69 87 Simple Mask 02/06/17 04:00 97.5 81 18 154/64 92 Non-Rebreather 15.0 02/06/17 00:00 98.1 83 18 146/55 94 Non-Rebreather 15.0 02/05/17 22:56 97.9 02/05/17 20:04 97.9 88 22 143/59 90 Room Air 02/05/17 19:26 85 22 Non-Rebreather 15.0 100 02/05/17 19:26 Non-Rebreather 15.0 100 02/05/17 19:26 94 Non-Rebreather 15.0 100 02/05/17 16:55 81 136/56 02/05/17 16:09 97.0 81 22 136/56 91 Simple Mask 15.0 02/05/17 12:00 96.8 76 22 122/58 95 Non-Rebreather 15.0 02/05/17 11:45 Non-Rebreather 16.0 Intake and Output 02/05/17 02/06/17 19:00 07:00 Intake Total 80 ml 275 ml Output Total 1160 ml 15 ml Balance -1080 ml 260 ml Intake Oral 80 ml 220 ml IV Total 55 ml Output Urine Total 30 ml 15 ml Hemodialysis UF 1130 ml # Bowel Movements 1 Labs Test 02/04/17 05:40 02/04/17 09:55 02/05/17 05:35 White Blood Count 11.8 K/UL (4.8-10.8) Red Blood Count 3.08 M/UL (4.20-5.40) Hemoglobin 9.2 G/DL (12.0-16.0) Hematocrit 27.9 % (37.0-47.0) Mean Corpuscular Volume 90 FL (80-99) Mean Corpuscular Hemoglobin 30.0 PG (27.0-31.0) Mean Corpuscular Hemoglobin Concent 33.1 G/DL (32.0-36.0) Red Cell Distribution Width 14.9 % (11.6-14.8) Platelet Count 59 K/UL (150-450) Mean Platelet Volume 6.7 FL (6.5-10.1) Neutrophils (%) (Auto) % (45.0-75.0) Lymphocytes (%) (Auto) % (20.0-45.0) Monocytes (%) (Auto) % (1.0-10.0) Eosinophils (%) (Auto) % (0.0-3.0) Basophils (%) (Auto) % (0.0-2.0) Differential Total Cells Counted 100 Neutrophils % (Manual) 85 % (45-75) Lymphocytes % (Manual) 7 % (20-45) Monocytes % (Manual) 5 % (1-10) Eosinophils % (Manual) 3 % (0-3) Basophils % (Manual) 0 % (0-2) Band Neutrophils 0 % (0-8) Platelet Estimate Decreased Platelet Morphology Normal Hypochromasia 1+ Anisocytosis 1+ Sodium Level 140 mEQ/L (135-145) 139 mEQ/L (135-145) Potassium Level 3.6 mEQ/L (3.4-4.9) 4.1 mEQ/L (3.4-4.9) Chloride Level 91 mEQ/L (98-107) 91 mEQ/L (98-107) Carbon Dioxide Level 35 mEQ/L (20-30) 33 mEQ/L (20-30) Anion Gap 14 (5-15) 15 (5-15) Blood Urea Nitrogen 51 mg/dL (7-23) 66 mg/dL (7-23) Creatinine 4.5 mg/dL (0.5-0.9) 5.7 mg/dL (0.5-0.9) Estimat Glomerular Filtration Rate mL/min (>60) mL/min (>60) Glucose Level 97 mg/dL (74-106) 90 mg/dL (74-106) Uric Acid 4.6 mg/dL (3.0-7.5) 5.6 mg/dL (3.0-7.5) Calcium Level 8.0 mg/dL (8.6-10.2) 8.1 mg/dL (8.6-10.2) Phosphorus Level 4.9 mg/dL (2.5-4.8) 6.2 mg/dL (2.5-4.8) Total Bilirubin 0.4 mg/dL (0.0-1.2) 0.4 mg/dL (0.0-1.2) Aspartate Amino Transf (AST/SGOT) 26 U/L (5-40) 27 U/L (5-40) Alanine Aminotransferase (ALT/SGPT) 17 U/L (3-33) 16 U/L (3-33) Alkaline Phosphatase 82 U/L (35-104) 87 U/L (35-104) Total Protein 5.1 g/dL (6.6-8.7) 5.2 g/dL (6.6-8.7) Albumin 2.8 g/dL (3.5-5.2) 2.5 g/dL (3.5-5.2) Globulin 2.3 g/dL 2.7 g/dL Albumin/Globulin Ratio 1.2 (1.0-2.7) 0.9 (1.0-2.7) Random Vancomycin Level 11.7 ug/mL Arterial Blood pH 7.422 (7.350-7.450) Arterial Blood Partial Pressure CO2 52.2 mmHg (35.0-45.0) Arterial Blood Partial Pressure O2 59.4 mmHg (75.0-100.0) Arterial Blood HCO3 33.3 mmol/L (22.0-26.0) Arterial Blood Oxygen Saturation 88.3 % (92.0-98.0) Arterial Blood Base Excess 7.7 Levy Test Positive Magnesium Level 2.0 mg/dL (1.7-2.5) Pro-B-Type Natriuretic Peptide 27172 pg/mL (0-450) Height (Feet): 5 Height (Inches): 1.00 Weight (Pounds): 200 Objective WDWN chronically ill appearing; on high flow NAD coarse breath sounds bilaterally without rhonchi or wheeze; no change [id number] without MRG NABS nontender no HSM no CC; persistent edema nonfocal weak and confused same in bed JANETTEALISSAKRISTINE LALFELIPE Feb 06, 2017 08:39
[2017-02-06 09:48] LABS: ABG ALLEN TEST POSITIVE; ABG BASE EXCESS 2.9; ABG PCO2 55.9 mmHg (35.0-45.0)
[2017-02-06 10:37] LABS: MEAN CORPUSCULAR HEMOGLOBIN 29.9 PG (27.0-31.0); MEAN CORPUSCULAR HGB CONC 32.2 G/DL (32.0-36.0); MEAN CORPUSCULAR VOLUME 93 FL (80-99); MEAN PLATELET VOLUME 6.5 FL (6.5-10.1); PLATELET COUNT 86 K/UL (150-450); RED BLOOD COUNT 2.59 M/UL (4.20-5.40); RED CELL DISTRIBUTION WIDTH 16.1 % (11.6-14.8); WHITE BLOOD COUNT 6.9 K/UL (4.8-10.8)
--- NOTE | 2017-02-06 10:44 | General Progress Note ---
Assessment/Plan Status: unchanged Status Narrative poor pulmonary status- retaining CO2 Assessment/Plan ( Had long talk with daughter Gali 01/19 ) - Acute renal failure and hyperKalemia - Renal failure, likely diabetic nephropathy / HTN - Sepsis , Pneumonia, Respiratory failure and Hypoxia other - h/o Cellulitis in diabetic foot right LE - Decubitus ulcer - Dementia - Diabetes mellitus - Nonpressure ulcer to level of fascia right lateral ankle - S/P ORIF right ankle Plan: Poor po is the main issue ? PEG? Had permacath 01/30 HD 02/05 next 02/07 monitor WBCs adjust Phos binders Monitor renal parameters and Vanco level- ARTUR Kidney done last admission- unremarkable Adjust BP meds- Avoid Nephrotoxics- discussed with CM Per orders Subjective ROS Limited/Unobtainable: No Constitutional: Reports: malaise, weakness Respiratory: Reports: shortness of breath Allergies: Coded Allergies: MORPHINE (Verified Adverse Reaction, Severe, PARADOXICAL REACTION, 10/08/12 ) Objective Last 24 Hour Vital Signs Date Time Temp Pulse Resp B/P Pulse Ox O2 Delivery O2 Flow Rate FiO2 02/06/17 08:48 84 22 Non-Rebreather 15.0 100 02/06/17 08:48 92 Non-Rebreather 15.0 100 02/06/17 08:48 Non-Rebreather 15.0 100 02/06/17 08:30 85 149/69 02/06/17 08:01 97.7 85 16 149/69 87 Simple Mask 02/06/17 04:00 97.5 81 18 154/64 92 Non-Rebreather 15.0 02/06/17 00:00 98.1 83 18 146/55 94 Non-Rebreather 15.0 02/05/17 22:56 97.9 02/05/17 20:04 97.9 88 22 143/59 90 Room Air 02/05/17 19:26 85 22 Non-Rebreather 15.0 100 02/05/17 19:26 Non-Rebreather 15.0 100 02/05/17 19:26 94 Non-Rebreather 15.0 100 02/05/17 16:55 81 136/56 02/05/17 16:09 97.0 81 22 136/56 91 Simple Mask 15.0 02/05/17 12:00 96.8 76 22 122/58 95 Non-Rebreather 15.0 02/05/17 11:45 Non-Rebreather 16.0 Intake and Output 02/05/17 02/06/17 19:00 07:00 Intake Total 80 ml 275 ml Output Total 1160 ml 15 ml Balance -1080 ml 260 ml Intake Oral 80 ml 220 ml IV Total 55 ml Output Urine Total 30 ml 15 ml Hemodialysis UF 1130 ml # Bowel Movements 1 Laboratory Tests 02/06/17 09:29: Arterial Blood pH 7.337L, Arterial Blood Partial Pressure CO2 55.9*H, Arterial Blood Partial Pressure O2 78.7, Arterial Blood HCO3 29.3H, Arterial Blood Oxygen Saturation 93.3, Arterial Blood Base Excess 2.9, Levy Test Positive 02/06/17 10:20: White Blood Count 6.9, Red Blood Count 2.59L, Hemoglobin 7.7L, Hematocrit 24.0L , Mean Corpuscular Volume 93, Mean Corpuscular Hemoglobin 29.9, Mean Corpuscular Hemoglobin Concent 32.2, Red Cell Distribution Width 16.1H, Platelet Count 86L, Mean Platelet Volume 6.5, Neutrophils (%) (Auto) , Lymphocytes (%) (Auto) , Monocytes (%) (Auto) , Eosinophils (%) (Auto) , Basophils (%) (Auto) , Neutrophils % (Manual) [Pending], Lymphocytes % (Manual) [Pending], Platelet Estimate [Pending], Platelet Morphology [Pending], Sodium Level [Pending], Potassium Level [Pending], Chloride Level [Pending], Carbon Dioxide Level [Pending], Blood Urea Nitrogen [Pending], Creatinine [Pending], Estimat Glomerular Filtration Rate [Pending], Glucose Level [Pending], Calcium Level [Pending] Height (Feet): 5 Height (Inches): 1.00 Weight (Pounds): 200 General Appearance: mild distress Cardiovascular: normal rate Respiratory/Chest: decreased breath sounds Abdomen: soft, distended Objective other PE not changed BERTRAM CASTAÑEDA Feb 06, 2017 10:44
--- NOTE | 2017-02-06 10:50 | Diagnostic Imaging Report ---
Indication: SOB Technique: One view of the chest Comparison: 02/02/2017 Findings: Right jugular tunneled dialysis catheter remains. Diffuse extensive bilateral parenchymal disease persists, unchanged. Pleural effusions described on recent CT scan are not clearly evident on plain radiographs. Impression: Unchanged, over 4 days, findings as above.
[2017-02-06 10:55] LABS: ANION GAP 17 (5-15); CALCIUM 8.2 mg/dL (8.6-10.2); CARBON DIOXIDE 27 mEQ/L (20-30); CHLORIDE 100 mEQ/L (98-107); CREATININE 3.9 mg/dL (0.5-0.9); HEMOLYSIS 3; POTASSIUM 4.1 mEQ/L (3.4-4.9); SODIUM 144 mEQ/L (135-145)
[2017-02-06 11:04] LABS: ANISOCYTOSIS 1+; BAND NEUTROPHILS % (MANUAL) 0 % (0-8); BASOPHILS % (MANUAL) 1 % (0-2); EOSINOPHILS % (MANUAL) 3 % (0-3); HYPOCHROMASIA 3+; LYMPHOCYTES % (MANUAL) 3 % (20-45); NEUTROPHILS % (MANUAL) 89 % (45-75); PLATELET ESTIMATE DECREASED; PLATELET MORPHOLOGY NORMAL; TOTAL CELLS COUNTED 100
[2017-02-06] MEDS ORDERED: Nitroglycerin Subl 0.4mg tab (Bottle Of 25) SL PRN (12:30)
[2017-02-06] MEDS ORDERED: Miralax 17gm pkt ORAL PRN (13:00)
[2017-02-06] MEDS ORDERED: DuoNeb 0.5-3(2.5)mg/3ml neb HHN PRN ×2 (13:45→16:00)
--- NOTE | 2017-02-06 15:22 | Diagnostic Imaging Report ---
Indications: DYSPHAGIA Technique: Patient ingested multiple substances under the supervision of speech pathology. Video fluoroscopic recording performed. Total fluoroscopy time 53 seconds. Total dose area product 0.06872 mGycm2 Comparison: none Findings: Only images labeled thin liquid barium are submitted, although speech pathology report describes ingestion of nectar thick.. Prompt initiation of deglutition. Equivocal trace penetration of thin liquid barium Impression: Equivocal trace penetration of thin liquid barium. No evidence of aspiration Please refer to speech pathology report for more detailed analysis
[2017-02-06] MEDS ORDERED: Tubing Blood Filter IV ONE (19:18)
[2017-02-06] MEDS ORDERED: NS 275ml ONE (19:18)
[2017-02-06] MEDS ORDERED: Ceftaroline 200 MG in NS 55 ML IV SCH (21:00)
[2017-02-06 22:40] LABS: ABG ALLEN TEST POSITIVE; ABG BASE EXCESS -3.3; ABG PCO2 60.3 mmHg (35.0-45.0)
[2017-02-07] VITALS (13 sets, daily range): BP systolic 99–151; BP diastolic 53–80
[2017-02-07] MEDS: Norco 5mg/325mg tab ORAL PRN ×2 (01:12→06:36)
[2017-02-07] MEDS: Aluminum Hydroxide Gel Susp 15ml ORAL SCH ×3 (01:17→12:00)
[2017-02-07 03:25] LABS: ABG ALLEN TEST POSITIVE; ABG BASE EXCESS -3.7; ABG PCO2 54.2 mmHg (35.0-45.0)
[2017-02-07 04:58] LABS: ALANINE AMINOTRANSFERASE 29 U/L (3-33); ANION GAP 23 (5-15); ASPARTATE AMINO TRANSFERASE 146 U/L (5-40); CALCIUM 8.7 mg/dL (8.6-10.2); CARBON DIOXIDE 22 mEQ/L (20-30); CHLORIDE 99 mEQ/L (98-107); CREATININE 4.7 mg/dL (0.5-0.9); HEMOLYSIS 106; PHOSPHORUS 5.3 mg/dL (2.5-4.8); POTASSIUM 4.3 mEQ/L (3.4-4.9); SODIUM 144 mEQ/L (135-145); TOTAL PROTEIN 5.2 g/dL (6.6-8.7)
[2017-02-07 05:16] LABS: BILIRUBIN,DIRECT 8.9 mg/dL (0.1-0.3)
[2017-02-07] MEDS: NovoLOG Insulin Flexpen SUBQ SCH ×3 (06:41→18:00)
--- NOTE | 2017-02-07 08:52 | General Progress Note ---
Assessment/Plan Assessment/Plan hypoxemia respiratory failure pulmonary infiltrates thrombocytopenia renal failure ALOC chronic encephalopathy sepsis pulmonary infiltrates noted which are extensive worsening acidosis s/p transfusion PLAN off heparin, plavix, aspirin follow up cbc after transfusion monitor renal function on HD continue to UF antibiotics noted taper fio2 follow up abg for co2 retention and poor oxygenation reviewed ct chest with son and aware he may have ARDS taking po; maintain with caution swallow evaluation follow up chest xr for changes update son daily aware that he may need intubation now on BIPAP impression, plan, and exam edited and reviewed in detail care discussed with RN Subjective Allergies: Coded Allergies: MORPHINE (Verified Adverse Reaction, Severe, PARADOXICAL REACTION, 10/08/12 ) Subjective deteriorated further now on BIPAP reduced LOC d/w son in detail Objective Last 24 Hour Vital Signs Date Time Temp Pulse Resp B/P Pulse Ox O2 Delivery O2 Flow Rate FiO2 02/07/17 08:00 84 02/07/17 05:17 90 29 89 Facial 100 02/07/17 04:00 97.2 90 28 135/75 94 Bi-pap 100 02/07/17 03:42 100 02/07/17 03:42 93 02/07/17 03:18 103 28 90 Facial 100 02/07/17 01:22 105 38 02/07/17 00:44 103 32 93 Facial 100 02/07/17 00:00 100 02/07/17 00:00 97.2 102 22 144/76 94 Bi-pap 100 02/06/17 20:00 96.6 82 18 151/71 94 Simple Mask 15.0 91 02/06/17 19:40 95 185/86 02/06/17 19:33 80 02/06/17 19:30 80 02/06/17 18:57 92 Non-Rebreather 15.0 100 02/06/17 18:57 Non-Rebreather 15.0 100 02/06/17 18:57 80 22 Non-Rebreather 15.0 100 02/06/17 16:21 97.3 81 20 143/61 91 Simple Mask 15.0 91 02/06/17 12:00 97.5 80 16 159/69 91 Simple Mask 02/06/17 11:06 97.5 82 15 163/74 93 Simple Mask Intake and Output 02/06/17 02/07/17 19:00 07:00 Intake Total 20 ml 205 ml Output Total 150 ml Balance 20 ml 55 ml Intake Oral 20 ml 150 ml IV Total 55 ml Output Urine Total 150 ml Laboratory Tests 02/06/17 09:29: Arterial Blood pH 7.337L, Arterial Blood Partial Pressure CO2 55.9*H, Arterial Blood Partial Pressure O2 78.7, Arterial Blood HCO3 29.3H, Arterial Blood Oxygen Saturation 93.3, Arterial Blood Base Excess 2.9, Levy Test Positive 02/06/17 10:20: White Blood Count 6.9, Red Blood Count 2.59L, Hemoglobin 7.7L, Hematocrit 24.0L , Mean Corpuscular Volume 93, Mean Corpuscular Hemoglobin 29.9, Mean Corpuscular Hemoglobin Concent 32.2, Red Cell Distribution Width 16.1H, Platelet Count 86L, Mean Platelet Volume 6.5, Neutrophils (%) (Auto) , Lymphocytes (%) (Auto) , Monocytes (%) (Auto) , Eosinophils (%) (Auto) , Basophils (%) (Auto) , Differential Total Cells Counted 100, Neutrophils % ( Manual) 89H, Lymphocytes % (Manual) 3L, Monocytes % (Manual) 4, Eosinophils % ( Manual) 3, Basophils % (Manual) 1, Band Neutrophils 0, Platelet Estimate DecreasedL, Platelet Morphology Normal, Hypochromasia 3+, Anisocytosis 1+, Sodium Level 144, Potassium Level 4.1, Chloride Level 100, Carbon Dioxide Level 27, Anion Gap 17H, Blood Urea Nitrogen 34#H, Creatinine 3.9H, Estimat Glomerular Filtration Rate , Glucose Level 121H, Calcium Level 8.2L 02/06/17 22:38: Arterial Blood pH 7.234*L, Arterial Blood Partial Pressure CO2 60.3*H, Arterial Blood Partial Pressure O2 < 64.0L, Arterial Blood HCO3 24.9, Arterial Blood Oxygen Saturation 82.6L, Arterial Blood Base Excess -3.3, Levy Test Positive 02/07/17 03:22: Arterial Blood pH 7.259L, Arterial Blood Partial Pressure CO2 54.2H, Arterial Blood Partial Pressure O2 < 64.0L, Arterial Blood HCO3 23.7, Arterial Blood Oxygen Saturation 85.0L, Arterial Blood Base Excess -3.7, Levy Test Positive 02/07/17 03:30: Sodium Level 144, Potassium Level 4.3, Chloride Level 99, Carbon Dioxide Level 22, Anion Gap 23H, Blood Urea Nitrogen 53H, Creatinine 4.7H, Estimat Glomerular Filtration Rate , Glucose Level 118H, Calcium Level 8.7, Phosphorus Level 5.3H, Magnesium Level 2.0, Total Bilirubin 11.8H, Direct Bilirubin 8.9H, Aspartate Amino Transf (AST/SGOT) 146H, Alanine Aminotransferase (ALT/SGPT) 29, Alkaline Phosphatase 183H, Total Protein 5.2L, Albumin 2.7L, Globulin 2.5, Albumin/ Globulin Ratio 1.0, Random Vancomycin Level 8.6 02/07/17 05:00: White Blood Count [Pending], Red Blood Count [Pending], Hemoglobin [Pending], Hematocrit [Pending], Mean Corpuscular Volume [Pending], Mean Corpuscular Hemoglobin [Pending], Mean Corpuscular Hemoglobin Concent [Pending], Red Cell Distribution Width [Pending], Platelet Count [Pending], Mean Platelet Volume [ Pending], Neutrophils (%) (Auto) [Pending], Lymphocytes (%) (Auto) [Pending], Monocytes (%) (Auto) [Pending], Eosinophils (%) (Auto) [Pending], Basophils (%) (Auto) [Pending] Height (Feet): 5 Height (Inches): 1.00 Weight (Pounds): 200 Objective WDWN chronically ill appearing; on high flow and BIPAP NAD coarse breath sounds bilaterally with rhonchi [id number] without MRG NABS nontender no HSM no CC; some edema nonfocal weak and confused same in bed FELIPE PATHAK Feb 07, 2017 08:52
[2017-02-07] MEDS: Docusate 100mg tablet ORAL SCH ×2 (09:11→13:00)
[2017-02-07] MEDS: Analgesic Balm 15gm TOPIC SCH ×4 (09:11→20:59)
[2017-02-07 09:13] LABS: MEAN CORPUSCULAR HEMOGLOBIN 29.9 PG (27.0-31.0); MEAN CORPUSCULAR HGB CONC 32.7 G/DL (32.0-36.0); MEAN CORPUSCULAR VOLUME 91 FL (80-99); MEAN PLATELET VOLUME 7.8 FL (6.5-10.1); PLATELET COUNT 40 K/UL (150-450); RED BLOOD COUNT 3.91 M/UL (4.20-5.40); RED CELL DISTRIBUTION WIDTH 15.6 % (11.6-14.8); WHITE BLOOD COUNT 8.9 K/UL (4.8-10.8)
[2017-02-07 09:25] LABS: ABG ALLEN TEST POSITIVE; ABG BASE EXCESS -4.5; ABG PCO2 50.2 mmHg (35.0-45.0)
[2017-02-07] MEDS ORDERED: NS 275ml ONE (09:39)
[2017-02-07] MEDS ORDERED: Tubing Blood Filter IV ONE (09:39)
[2017-02-07 09:52] LABS: ANISOCYTOSIS 1+; BAND NEUTROPHILS % (MANUAL) 6 % (0-8); BASOPHILS % (MANUAL) 0 % (0-2); EOSINOPHILS % (MANUAL) 0 % (0-3); HYPOCHROMASIA 1+; LYMPHOCYTES % (MANUAL) 6 % (20-45); NEUTROPHILS % (MANUAL) 83 % (45-75); PLATELET ESTIMATE DECREASED; PLATELET MORPHOLOGY NORMAL; TOTAL CELLS COUNTED 100
--- NOTE | 2017-02-07 11:18 | Infectious Diseases Prog Note ---
Assessment/Plan Assessment/Plan ASSESSMENT: 76 y/o female with: // Probable UTI - UCx(-) // Hypoxia, possible HCAP - CXR 02/02 : Extensive bilateral interstitial and airspace opacities, unchanged // h/o CoNS bacteremia 11/05 ( 01/09 ) ?real ( PICC tip+ ) vs contaminant r/o recurrence/persistence - surveillance BCx(-) // h/o right ankle cellulitis / osteomyelitis / hardware infection SP incomplete Rx ( recommended to complete 6 weeks IV daptomycin, cefepime ( end ), but daughter apparently declined at last discharge per documentation ) - SP hardware removal 12/15 - no culture sent - 3P bone scan: 3 phase increased activity in region of distal aspect of right fibula compatible with hardware loosening and/or osteomyelitis - XR: surgical hardware seen reducing old healed distal fibular and medial malleolar fractures. No acute fractures. No dislocations. Bones are demineralized. - elevated ESR, CRP - h/o right ankle ORIF // Probable sepsis,SP // Leukocytosis , SP // ARF on CKD --> IHD per renal SP placement of tunneled right jugular hemodialysis catheter. 01/29 // Dementia // DM2 - HbA1c 6.1% // h/o CAD - trop(-) x1 // NH resident // VRE colonized // No ABX allergies // Full Code PLAN: - DC Teflaro d# 10 and start on Merrem d# 1 ( 01/28 SP IV cefepime d# 10 IV Vanco d# 2 ) - monitor CBC, temperatures - monitor BMP - monitor CXR - respiratory support prn - Sputum CX - BiPAP Subjective Constitutional: Denies: anorexia, chills, drenching sweats, fatigue, fever, no symptoms, other Allergies: Coded Allergies: MORPHINE (Verified Adverse Reaction, Severe, PARADOXICAL REACTION, 10/08/12 ) Objective Vital Signs Last 24 Hour Vital Signs Date Time Temp Pulse Resp B/P Pulse Ox O2 Delivery O2 Flow Rate FiO2 02/07/17 09:11 84 99/73 02/07/17 09:00 86 28 92 Facial 100 02/07/17 08:00 84 02/07/17 08:00 97.5 84 26 99/73 93 Bi-pap 100 02/07/17 07:01 Bi-pap 100 02/07/17 07:01 93 Bi-pap 100 02/07/17 07:00 88 29 Bi-pap 100 02/07/17 07:00 89 35 93 Facial 100 02/07/17 05:17 90 29 89 Facial 100 02/07/17 04:00 97.2 90 28 135/75 94 Bi-pap 100 02/07/17 03:42 100 02/07/17 03:42 93 02/07/17 03:18 103 28 90 Facial 100 02/07/17 01:22 105 38 02/07/17 00:44 103 32 93 Facial 100 02/07/17 00:00 100 02/07/17 00:00 97.2 102 22 144/76 94 Bi-pap 100 02/06/17 20:00 96.6 82 18 151/71 94 Simple Mask 15.0 91 02/06/17 19:40 95 185/86 02/06/17 19:33 80 02/06/17 19:30 80 02/06/17 18:57 92 Non-Rebreather 15.0 100 02/06/17 18:57 Non-Rebreather 15.0 100 02/06/17 18:57 80 22 Non-Rebreather 15.0 100 02/06/17 16:21 97.3 81 20 143/61 91 Simple Mask 15.0 91 02/06/17 12:00 97.5 80 16 159/69 91 Simple Mask Height (Feet): 5 Height (Inches): 1.00 Weight (Pounds): 200 HEENT: anicteric Respiratory/Chest: normal breath sounds Cardiovascular: normal rate Abdomen: no organomegaly Laboratory Tests Test 02/06/17 22:38 02/07/17 03:22 02/07/17 03:30 02/07/17 05:00 Arterial Blood pH 7.234 (7.350-7.450) 7.259 (7.350-7.450) Arterial Blood Partial Pressure CO2 60.3 mmHg (35.0-45.0) *H 54.2 mmHg (35.0-45.0) H Arterial Blood Partial Pressure O2 < 64.0 mmHg (75.0-100.0) L < 64.0 mmHg (75.0-100.0) L Arterial Blood HCO3 24.9 mmol/L (22.0-26.0) 23.7 mmol/L (22.0-26.0) Arterial Blood Oxygen Saturation 82.6 % (92.0-98.0) L 85.0 % (92.0-98.0) L Arterial Blood Base Excess -3.3 -3.7 Levy Test Positive Positive Sodium Level 144 mEQ/L (135-145) Potassium Level 4.3 mEQ/L (3.4-4.9) Chloride Level 99 mEQ/L (98-107) Carbon Dioxide Level 22 mEQ/L (20-30) Anion Gap 23 (5-15) H Blood Urea Nitrogen 53 mg/dL (7-23) H Creatinine 4.7 mg/dL (0.5-0.9) H Estimat Glomerular Filtration Rate mL/min (>60) Glucose Level 118 mg/dL (74-106) H Calcium Level 8.7 mg/dL (8.6-10.2) Phosphorus Level 5.3 mg/dL (2.5-4.8) H Magnesium Level 2.0 mg/dL (1.7-2.5) Total Bilirubin 11.8 mg/dL (0.0-1.2) H Direct Bilirubin 8.9 mg/dL (0.1-0.3) H Aspartate Amino Transf (AST/SGOT) 146 U/L (5-40) H Alanine Aminotransferase (ALT/SGPT) 29 U/L (3-33) Alkaline Phosphatase 183 U/L (35-104) H Total Protein 5.2 g/dL (6.6-8.7) L Albumin 2.7 g/dL (3.5-5.2) L Globulin 2.5 g/dL Albumin/Globulin Ratio 1.0 (1.0-2.7) Random Vancomycin Level 8.6 ug/mL White Blood Count 8.9 K/UL (4.8-10.8) Red Blood Count 3.91 M/UL (4.20-5.40) L Hemoglobin 11.7 G/DL (12.0-16.0) #L Hematocrit 35.8 % (37.0-47.0) #L Mean Corpuscular Volume 91 FL (80-99) Mean Corpuscular Hemoglobin 29.9 PG (27.0-31.0) Mean Corpuscular Hemoglobin Concent 32.7 G/DL (32.0-36.0) Red Cell Distribution Width 15.6 % (11.6-14.8) H Platelet Count 40 K/UL (150-450) #L Mean Platelet Volume 7.8 FL (6.5-10.1) Neutrophils (%) (Auto) % (45.0-75.0) Lymphocytes (%) (Auto) % (20.0-45.0) Monocytes (%) (Auto) % (1.0-10.0) Eosinophils (%) (Auto) % (0.0-3.0) Basophils (%) (Auto) % (0.0-2.0) Differential Total Cells Counted 100 Neutrophils % (Manual) 83 % (45-75) H Lymphocytes % (Manual) 6 % (20-45) L Monocytes % (Manual) 5 % (1-10) Eosinophils % (Manual) 0 % (0-3) Basophils % (Manual) 0 % (0-2) Band Neutrophils 6 % (0-8) Platelet Estimate Decreased L Platelet Morphology Normal Hypochromasia 1+ Anisocytosis 1+ Test 02/07/17 09:16 Arterial Blood pH 7.269 (7.350-7.450) Arterial Blood Partial Pressure CO2 50.2 mmHg (35.0-45.0) H Arterial Blood Partial Pressure O2 66.1 mmHg (75.0-100.0) L Arterial Blood HCO3 22.5 mmol/L (22.0-26.0) Arterial Blood Oxygen Saturation 90.5 % (92.0-98.0) L Arterial Blood Base Excess -4.5 Levy Test Positive Current Medications Medications (Trade) Dose Ordered Sig/Rina Route PRN Reason Start Time Stop Time Status Last Admin Dose Admin Acetaminophen (Tylenol) 650 mg Q6H PRN ORAL Mild Pain/Temp > 100.5 02/06/17 13:00 03/08/17 12:59 Acetaminophen/ Hydrocodone Bitart ([place] 5/325) 1 tab Q4H PRN ORAL Moderate Pain (Pain Scale 4-6) 02/06/17 13:00 02/13/17 12:59 02/07/17 06:36 Albuterol/ Ipratropium (DuoNeb 0.5-3(2.5)mg/3ml) 3 ml Q4H PRN HHN Shortness of Breath 02/06/17 13:45 02/11/17 13:44 Aluminum Hydroxide (Amphojel) 1,920 mg Q6HR ORAL 02/06/17 18:00 03/08/17 17:59 02/07/17 06:43 Amlodipine Besylate (Norvasc) 5 mg BID ORAL 02/06/17 18:00 03/08/17 17:59 02/07/17 09:11 Dextrose (Dextrose 50%) STAT PRN IV Hypoglycemia 02/06/17 13:00 03/08/17 12:59 Docusate Sodium (Colace) 100 mg TID ORAL 02/06/17 13:00 03/08/17 12:59 02/07/17 09:11 Insulin Aspart (NovoLOG) BEFORE MEALS AND HS SUBQ 02/06/17 16:30 03/08/17 16:29 02/07/17 06:41 Menthol/Methyl Salicylate (Bengay) 1 applic FOUR TIMES A DAY TOPIC 02/06/17 13:00 03/08/17 12:59 02/07/17 09:11 Nitroglycerin (Ntg) 0.4 mg Q5M X 3 DOSES PRN SL Prn Chest Pain 02/06/17 12:30 03/08/17 12:29 Ondansetron HCl (Zofran) 4 mg Q6H PRN IVP Nausea & Vomiting 02/06/17 13:00 03/08/17 12:59 Pantoprazole (Protonix) 40 mg EVERY 12 HOURS ORAL 02/06/17 21:00 03/08/17 20:59 02/07/17 09:11 Polyethylene Glycol (Miralax) 17 gm DAILYPRN PRN ORAL Constipation 02/06/17 13:00 03/08/17 12:59 Sevelamer Carbonate (Renvela) 1,600 mg THREE TIMES A DAY ORAL 02/06/17 13:00 03/08/17 12:59 02/07/17 09:11 GISELLA JEROME M.D. Feb 07, 2017 11:18
[2017-02-07 13:09] LABS: ABG ALLEN TEST POSITIVE; ABG BASE EXCESS -2.9; ABG PCO2 58.9 mmHg (35.0-45.0)
[2017-02-07] MEDS ORDERED: Meropenem 500mg/NS 55ml IVPB SCH ×2 (14:00)
[2017-02-07] MEDS ORDERED: Meropenem 1 GM in NS 110 ML IVPB SCH (14:00)
--- NOTE | 2017-02-07 14:12 | Emergency Room Report ---
History of Present Illness General Chief Complaint: Dyspnea/Respdistress Source: Family Member, Medical Record, EMS Present Illness Allergies: Coded Allergies: MORPHINE (Verified Adverse Reaction, Severe, PARADOXICAL REACTION, 10/08/12 ) Patient History Now: No Nursing Documentation-[facility] Past Medical History: No History, Except For Hx Cardiac Problems: Yes - Hypothyroidism, angina, hyperk+, CAD Hx Hypertension: Yes Hx Pacemaker: No Hx Asthma: No Hx COPD: No Hx Diabetes: Yes Hx Cancer: No Hx Gastrointestinal Problems: Yes Hx Dialysis: No Hx Neurological Problems: Yes - Dementia Hx Cerebrovascular Accident: No Hx Dementia: Yes Hx Alzheimer's Disease: Yes Hx Seizures: No Hx Memory Loss: Yes Hx Concentration Difficulty: Yes Hx Tremors: Yes Hx Dizziness: Yes Hx Headaches: Yes Hx Weakness: Yes - muscle weakness Physical Exam Vital Signs Date Time Temp Pulse Resp B/P Pulse Ox O2 Delivery O2 Flow Rate FiO2 01/18/17 21:19 76 20 134/54 98 Non-Rebreather 15.0 01/18/17 22:21 100 01/19/17 08:00 94.9 Procedures Critical Care Time Critical Care Time 35 minutes of CC time for this patient admitted for a few weeks for renal failure on HD, sepsis likely d/t PNA Asked by Dr Ly to intubate patient because of worsening hypoxia despite BIPAP CXR refused: diffuse bilateral parenchymal infiltrate - PNA vs ARDS on my review Reviewed labs Went to [facility] to evaluate patient at 145pm - was prohibited by HD nurse from proceeding with intubation at this time. I discussed with HD Rn that airway/hypoxia takes precedence over HD but she would not allow me to proceed - told me to "come back at 3pm." I informed Dr Ly of this. He asked me to return at 3pm At 3pm, vitals reviewed - normotensive. Mild hypoxia despite high flow FiO2 100 % Patient altered - repeatedly moaning Was intubated - see procedure note Advised Dr Ly to order sedation Intubation Intubation : Consent: Emergent Intubation Method: orotracheal Tube Size (cm): 7.5 Medications: Etomidate, Rocuronium Breath Sounds after Intubation: equal Intubation Complications: no complications Post Intubation Xray: Yes Attempts: One Patient Tolerated: Well Complications: None Medical Decision Making Diagnostic Impression: Primary Impression: Sepsis Additional Impressions: Respiratory failure with hypoxia Acute on chronic renal failure Anemia of chronic kidney failure Pneumonia Hyperkalemia Last Vital Signs Date Time Temp Pulse Resp B/P Pulse Ox O2 Delivery O2 Flow Rate FiO2 02/07/17 12:00 86 02/07/17 12:00 97.3 33 136/73 93 Bi-pap 100 02/06/17 20:00 15.0 Disposition: ADMITTED INPATIENT Condition: Serious Referrals: SHYAM NAVA (PCP) YAHIR SANDOVAL M.D. Feb 07, 2017 14:12
--- NOTE | 2017-02-07 15:37 | General Progress Note ---
Assessment/Plan Status: unchanged, deteriorating Status Narrative due intubation shortly Assessment/Plan Has acute respiratory distress ( Had long talk with daughter Gali 01/19 ) - Acute renal failure and hyperKalemia - Renal failure, likely diabetic nephropathy / HTN - Sepsis , Pneumonia, Respiratory failure and Hypoxia other - h/o Cellulitis in diabetic foot right LE - Decubitus ulcer - Dementia - Diabetes mellitus - Nonpressure ulcer to level of fascia right lateral ankle - S/P ORIF right ankle Plan: intubate - ICU Poor po - NGT ? PEG? Had permacath 01/30 HD 02/07 done - 2500cc monitor WBCs adjust Phos binders Monitor renal parameters and Vanco level- ARTUR Kidney done last admission- unremarkable Adjust BP meds- Avoid Nephrotoxics- discussed with CM Per orders Subjective ROS Limited/Unobtainable: Yes Allergies: Coded Allergies: MORPHINE (Verified Adverse Reaction, Severe, PARADOXICAL REACTION, 10/08/12 ) Objective Last 24 Hour Vital Signs Date Time Temp Pulse Resp B/P Pulse Ox O2 Delivery O2 Flow Rate FiO2 02/07/17 14:22 Bi-pap 15.0 100 02/07/17 14:18 Bi-pap 15.0 100 02/07/17 12:00 86 02/07/17 12:00 97.3 86 33 136/73 93 Bi-pap 100 02/07/17 11:20 88 29 93 Facial 100 02/07/17 11:00 15.0 100 02/07/17 09:11 84 99/73 02/07/17 09:00 86 28 92 Facial 100 02/07/17 08:00 84 02/07/17 08:00 97.5 84 26 99/73 93 Bi-pap 100 02/07/17 07:01 Bi-pap 100 02/07/17 07:01 93 Bi-pap 100 02/07/17 07:00 88 29 Bi-pap 100 02/07/17 07:00 89 35 93 Facial 100 02/07/17 05:17 90 29 89 Facial 100 02/07/17 04:00 97.2 90 28 135/75 94 Bi-pap 100 02/07/17 03:42 100 02/07/17 03:42 93 02/07/17 03:18 103 28 90 Facial 100 02/07/17 01:22 105 38 02/07/17 00:44 103 32 93 Facial 100 02/07/17 00:00 100 02/07/17 00:00 97.2 102 22 144/76 94 Bi-pap 100 02/06/17 20:00 96.6 82 18 151/71 94 Simple Mask 15.0 91 02/06/17 19:40 95 185/86 02/06/17 19:33 80 02/06/17 19:30 80 02/06/17 18:57 92 Non-Rebreather 15.0 100 02/06/17 18:57 Non-Rebreather 15.0 100 02/06/17 18:57 80 22 Non-Rebreather 15.0 100 02/06/17 16:21 97.3 81 20 143/61 91 Simple Mask 15.0 91 Intake and Output 02/06/17 02/07/17 19:00 07:00 Intake Total 20 ml 205 ml Output Total 150 ml Balance 20 ml 55 ml Intake Oral 20 ml 150 ml IV Total 55 ml Output Urine Total 150 ml Laboratory Tests 02/06/17 22:38: Arterial Blood pH 7.234*L, Arterial Blood Partial Pressure CO2 60.3*H, Arterial Blood Partial Pressure O2 < 64.0L, Arterial Blood HCO3 24.9, Arterial Blood Oxygen Saturation 82.6L, Arterial Blood Base Excess -3.3, Levy Test Positive 02/07/17 03:22: Arterial Blood pH 7.259L, Arterial Blood Partial Pressure CO2 54.2H, Arterial Blood Partial Pressure O2 < 64.0L, Arterial Blood HCO3 23.7, Arterial Blood Oxygen Saturation 85.0L, Arterial Blood Base Excess -3.7, Levy Test Positive 02/07/17 03:30: Sodium Level 144, Potassium Level 4.3, Chloride Level 99, Carbon Dioxide Level 22, Anion Gap 23H, Blood Urea Nitrogen 53H, Creatinine 4.7H, Estimat Glomerular Filtration Rate , Glucose Level 118H, Calcium Level 8.7, Phosphorus Level 5.3H, Magnesium Level 2.0, Total Bilirubin 11.8H, Direct Bilirubin 8.9H, Aspartate Amino Transf (AST/SGOT) 146H, Alanine Aminotransferase (ALT/SGPT) 29, Alkaline Phosphatase 183H, Total Protein 5.2L, Albumin 2.7L, Globulin 2.5, Albumin/ Globulin Ratio 1.0, Random Vancomycin Level 8.6 02/07/17 05:00: White Blood Count 8.9, Red Blood Count 3.91L, Hemoglobin 11.7#L, Hematocrit 35.8 #L, Mean Corpuscular Volume 91, Mean Corpuscular Hemoglobin 29.9, Mean Corpuscular Hemoglobin Concent 32.7, Red Cell Distribution Width 15.6H, Platelet Count 40#L, Mean Platelet Volume 7.8, Neutrophils (%) (Auto) , Lymphocytes (%) (Auto) , Monocytes (%) (Auto) , Eosinophils (%) (Auto) , Basophils (%) (Auto) , Differential Total Cells Counted 100, Neutrophils % ( Manual) 83H, Lymphocytes % (Manual) 6L, Monocytes % (Manual) 5, Eosinophils % ( Manual) 0, Basophils % (Manual) 0, Band Neutrophils 6, Platelet Estimate DecreasedL, Platelet Morphology Normal, Hypochromasia 1+, Anisocytosis 1+ 02/07/17 09:16: Arterial Blood pH 7.269L, Arterial Blood Partial Pressure CO2 50.2H, Arterial Blood Partial Pressure O2 66.1L, Arterial Blood HCO3 22.5, Arterial Blood Oxygen Saturation 90.5L, Arterial Blood Base Excess -4.5, Levy Test Positive 02/07/17 12:57: Arterial Blood pH 7.244*L, Arterial Blood Partial Pressure CO2 58.9*H, Arterial Blood Partial Pressure O2 64.0L, Arterial Blood HCO3 24.9, Arterial Blood Oxygen Saturation 75.2L, Arterial Blood Base Excess -2.9, Levy Test Positive Height (Feet): 5 Height (Inches): 1.00 Weight (Pounds): 200 General Appearance: moderate distress, other - on bipap Neck: stiff neck Respiratory/Chest: decreased breath sounds, rhonchi - bilaterally Abdomen: soft Objective other PE not changed BERTRAM CASTAÑEDA Feb 07, 2017 15:37
[2017-02-07] MEDS ORDERED: Nitroglycerin Subl 0.4mg tab (Bottle Of 25) SL PRN (16:00)
[2017-02-07] MEDS ORDERED: DuoNeb 0.5-3(2.5)mg/3ml neb HHN PRN (17:00)
[2017-02-07] MEDS ORDERED: Miralax 17gm pkt GT PRN (17:00)
[2017-02-07] MEDS ORDERED: Norco 5mg/325mg tab ORAL PRN (17:00)
[2017-02-07] MEDS ORDERED: Miralax 17gm pkt ORAL PRN (17:00)
[2017-02-07 17:02] LABS: ABG BASE EXCESS 1.2; ABG PCO2 65.3 mmHg (35.0-45.0)
[2017-02-07 17:03] LABS: ABG ALLEN TEST POSITIVE
[2017-02-07] MEDS ORDERED: NovoLOG Insulin Flexpen SUBQ SCH (17:30)
[2017-02-07] MEDS: Docusate 100mg tablet GT SCH (18:00)
[2017-02-07] MEDS: Aluminum Hydroxide Gel Susp 15ml GT SCH (18:08)
[2017-02-07] MEDS: Renvela 800mg Pkt GT SCH (18:08)
[2017-02-07 18:31] LABS: MEAN CORPUSCULAR HEMOGLOBIN 32.1 PG (27.0-31.0); MEAN CORPUSCULAR HGB CONC 35.5 G/DL (32.0-36.0); MEAN CORPUSCULAR VOLUME 90 FL (80-99); MEAN PLATELET VOLUME 10.5 FL (6.5-10.1); PLATELET COUNT 39 K/UL (150-450); RED BLOOD COUNT 3.14 M/UL (4.20-5.40); RED CELL DISTRIBUTION WIDTH 16.6 % (11.6-14.8)
[2017-02-07 19:25] LABS: INR 1.8 (0.9-1.1); PROTHROMBIN TIME 18.2 SEC (9.30-11.50)
[2017-02-07 20:48] LABS: ANISOCYTOSIS 1+; BAND NEUTROPHILS % (MANUAL) 3 % (0-8); BASOPHILS % (MANUAL) 0 % (0-2); EOSINOPHILS % (MANUAL) 0 % (0-3); HYPOCHROMASIA 1+; LYMPHOCYTES % (MANUAL) 9 % (20-45); NEUTROPHILS % (MANUAL) 84 % (45-75); PLATELET ESTIMATE DECREASED; PLATELET MORPHOLOGY NORMAL; TOTAL CELLS COUNTED 100
[2017-02-07 20:50] LABS: NUCLEATED RED BLOOD CELLS 2 /100 WBC
[2017-02-07] MEDS: Pantoprazole Inj IVP SCH (20:59)
[2017-02-07] MEDS ORDERED: LORazepam Inj 2mg/ml 1ml IV PRN (22:30)
[2017-02-07] MEDS ORDERED: Morphine Sulfate 4mg/ml Inj IVP PRN (22:30)
[2017-02-08] VITALS (24 sets, daily range): BP systolic 94–148; BP diastolic 21–98
[2017-02-08] MEDS: Aluminum Hydroxide Gel Susp 15ml GT SCH ×5 (01:02→23:30)
[2017-02-08] MEDS: Norco 5mg/325mg tab GT PRN ×2 (02:31→23:01)
[2017-02-08 04:30] LABS: MEAN CORPUSCULAR HEMOGLOBIN 30.8 PG (27.0-31.0); MEAN CORPUSCULAR HGB CONC 34.7 G/DL (32.0-36.0); MEAN CORPUSCULAR VOLUME 89 FL (80-99); MEAN PLATELET VOLUME 8.4 FL (6.5-10.1); PLATELET COUNT 34 K/UL (150-450); RED BLOOD COUNT 2.83 M/UL (4.20-5.40); RED CELL DISTRIBUTION WIDTH 16.7 % (11.6-14.8); WHITE BLOOD COUNT 17.5 K/UL (4.8-10.8)
[2017-02-08 04:44] LABS: ALANINE AMINOTRANSFERASE 91 U/L (3-33); ANION GAP 18 (5-15); ASPARTATE AMINO TRANSFERASE 551 U/L (5-40); CALCIUM 8.4 mg/dL (8.6-10.2); CARBON DIOXIDE 28 mEQ/L (20-30); CHLORIDE 99 mEQ/L (98-107); CREATININE 4.1 mg/dL (0.5-0.9); CRP QUANT 29.6 mg/dL (< 0.5); HEMOLYSIS 22; MAGNESIUM 1.8 mg/dL (1.7-2.5); PHOSPHORUS 4.4 mg/dL (2.5-4.8); POTASSIUM 3.9 mEQ/L (3.4-4.9); SODIUM 145 mEQ/L (135-145); TOTAL PROTEIN 4.6 g/dL (6.6-8.7); URIC ACID 4.3 mg/dL (3.0-7.5)
[2017-02-08 05:10] LABS: BILIRUBIN,DIRECT 2.2 mg/dL (0.1-0.3)
[2017-02-08] MEDS: NovoLOG Insulin Flexpen SUBQ SCH ×5 (05:53→23:34)
--- NOTE | 2017-02-08 07:41 | Infectious Diseases Prog Note ---
Assessment/Plan Assessment/Plan A: Pneumonia Hypercapnic respiratory failure UTI ESRD started on HD DM history of ankle fracture P: continue Meropenem Subjective ROS Limited/Unobtainable: Yes Respiratory: Reports: other - intubated, transferred to ICU Allergies: Coded Allergies: MORPHINE (Verified Adverse Reaction, Severe, PARADOXICAL REACTION, 10/08/12 ) Objective Vital Signs Last 24 Hour Vital Signs Date Time Temp Pulse Resp B/P Pulse Ox O2 Delivery O2 Flow Rate FiO2 02/08/17 07:00 87 19 133/39 100 Mechanical Ventilator 100 02/08/17 06:50 86 24 90 02/08/17 06:05 86 02/08/17 06:00 86 23 127/44 100 Mechanical Ventilator 100 02/08/17 05:00 102 19 124/41 100 Mechanical Ventilator 100 02/08/17 04:56 122 22 100 02/08/17 04:00 98.3 103 21 100/40 99 Mechanical Ventilator 100 02/08/17 03:30 98.3 02/08/17 03:00 110 22 94/48 99 Mechanical Ventilator 100 02/08/17 02:46 129 22 100 02/08/17 02:00 130 25 114/67 98 Mechanical Ventilator 100 02/08/17 01:20 133 24 100 02/08/17 01:00 98 21 143/68 99 Mechanical Ventilator 100 02/08/17 00:00 90 02/08/17 00:00 50 02/08/17 00:00 98.5 90 20 139/60 99 Mechanical Ventilator 100 02/07/17 23:00 90 21 151/60 96 Mechanical Ventilator 100 02/07/17 22:56 90 22 100 02/07/17 22:00 89 20 151/68 96 Mechanical Ventilator 100 02/07/17 21:00 90 19 146/80 96 Mechanical Ventilator 100 02/07/17 20:47 91 22 100 02/07/17 20:00 98.0 87 18 147/60 96 Mechanical Ventilator 100 02/07/17 20:00 87 02/07/17 19:00 84 19 144/69 96 Mechanical Ventilator 100 02/07/17 18:55 Mechanical Ventilator 100 02/07/17 18:55 81 22 100 02/07/17 18:54 97 Mechanical Ventilator 100 02/07/17 18:53 80 22 Bi-pap 100 02/07/17 18:08 81 135/58 02/07/17 18:00 79 20 135/57 94 Mechanical Ventilator 100 02/07/17 18:00 100 02/07/17 17:20 79 22 100 02/07/17 17:00 80 20 126/63 94 Mechanical Ventilator 100 02/07/17 16:00 73 02/07/17 16:00 100 02/07/17 16:00 98.2 80 28 132/53 96 Mechanical Ventilator 100 02/07/17 15:30 74 22 100 02/07/17 14:22 Bi-pap 15.0 100 02/07/17 14:18 Bi-pap 15.0 100 02/07/17 12:00 86 02/07/17 12:00 97.3 86 33 136/73 93 Bi-pap 100 02/07/17 11:20 88 29 93 Facial 100 02/07/17 11:00 15.0 100 02/07/17 09:11 84 99/73 02/07/17 09:00 86 28 92 Facial 100 02/07/17 08:00 84 02/07/17 08:00 97.5 84 26 99/73 93 Bi-pap 100 Height (Feet): 5 Height (Inches): 1.00 Weight (Pounds): 200 General Appearance: no acute distress HEENT: other - orally intubated Respiratory/Chest: lungs clear, other - on ventilator Cardiovascular: normal rate Abdomen: soft, non tender Extremities: no edema 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: unresponsiveness Laboratory Tests Test 02/07/17 09:16 02/07/17 12:57 02/07/17 16:46 02/07/17 18:15 Arterial Blood pH 7.269 (7.350-7.450) 7.244 (7.350-7.450) 7.267 (7.350-7.450) Arterial Blood Partial Pressure CO2 50.2 mmHg (35.0-45.0) H 58.9 mmHg (35.0-45.0) *H 65.3 mmHg (35.0-45.0) *H Arterial Blood Partial Pressure O2 66.1 mmHg (75.0-100.0) L 64.0 mmHg (75.0-100.0) L 80.8 mmHg (75.0-100.0) Arterial Blood HCO3 22.5 mmol/L (22.0-26.0) 24.9 mmol/L (22.0-26.0) 29.1 mmol/L (22.0-26.0) H Arterial Blood Oxygen Saturation 90.5 % (92.0-98.0) L 75.2 % (92.0-98.0) L 93.9 % (92.0-98.0) Arterial Blood Base Excess -4.5 -2.9 1.2 Levy Test Positive Positive Positive White Blood Count 22.0 K/UL (4.8-10.8) #H Red Blood Count 3.14 M/UL (4.20-5.40) L Hemoglobin 10.1 G/DL (12.0-16.0) L Hematocrit 28.4 % (37.0-47.0) L Mean Corpuscular Volume 90 FL (80-99) Mean Corpuscular Hemoglobin 32.1 PG (27.0-31.0) H Mean Corpuscular Hemoglobin Concent 35.5 G/DL (32.0-36.0) Red Cell Distribution Width 16.6 % (11.6-14.8) H Platelet Count 39 K/UL (150-450) L Mean Platelet Volume 10.5 FL (6.5-10.1) H Neutrophils (%) (Auto) % (45.0-75.0) Lymphocytes (%) (Auto) % (20.0-45.0) Monocytes (%) (Auto) % (1.0-10.0) Eosinophils (%) (Auto) % (0.0-3.0) Basophils (%) (Auto) % (0.0-2.0) Differential Total Cells Counted 100 Neutrophils % (Manual) 84 % (45-75) H Lymphocytes % (Manual) 9 % (20-45) L Monocytes % (Manual) 4 % (1-10) Eosinophils % (Manual) 0 % (0-3) Basophils % (Manual) 0 % (0-2) Band Neutrophils 3 % (0-8) Nucleated Red Blood Cells 2 /100 WBC Platelet Estimate Decreased L Platelet Morphology Normal Hypochromasia 1+ Anisocytosis 1+ Prothrombin Time 18.2 SEC (9.30-11.50) H Prothromb Time International Ratio 1.8 (0.9-1.1) H Activated Partial Thromboplast Time 37 SEC (23-33) H Fibrinogen 184 mg/dL (200-400) L D-Dimer 95293 ng/mL (<500) H Test 02/08/17 04:00 White Blood Count 17.5 K/UL (4.8-10.8) H Red Blood Count 2.83 M/UL (4.20-5.40) L Hemoglobin 8.7 G/DL (12.0-16.0) L Hematocrit 25.1 % (37.0-47.0) L Mean Corpuscular Volume 89 FL (80-99) Mean Corpuscular Hemoglobin 30.8 PG (27.0-31.0) Mean Corpuscular Hemoglobin Concent 34.7 G/DL (32.0-36.0) Red Cell Distribution Width 16.7 % (11.6-14.8) H Platelet Count 34 K/UL (150-450) L Mean Platelet Volume 8.4 FL (6.5-10.1) Neutrophils (%) (Auto) % (45.0-75.0) Lymphocytes (%) (Auto) % (20.0-45.0) Monocytes (%) (Auto) % (1.0-10.0) Eosinophils (%) (Auto) % (0.0-3.0) Basophils (%) (Auto) % (0.0-2.0) Neutrophils % (Manual) Pending Lymphocytes % (Manual) Pending Platelet Estimate Pending Platelet Morphology Pending Sodium Level 145 mEQ/L (135-145) Potassium Level 3.9 mEQ/L (3.4-4.9) Chloride Level 99 mEQ/L (98-107) Carbon Dioxide Level 28 mEQ/L (20-30) Anion Gap 18 (5-15) H Blood Urea Nitrogen 51 mg/dL (7-23) H Creatinine 4.1 mg/dL (0.5-0.9) H Estimat Glomerular Filtration Rate mL/min (>60) Glucose Level 97 mg/dL (74-106) Uric Acid 4.3 mg/dL (3.0-7.5) Calcium Level 8.4 mg/dL (8.6-10.2) L Phosphorus Level 4.4 mg/dL (2.5-4.8) Magnesium Level 1.8 mg/dL (1.7-2.5) Total Bilirubin 3.4 mg/dL (0.0-1.2) H Direct Bilirubin 2.2 mg/dL (0.1-0.3) H Aspartate Amino Transf (AST/SGOT) 551 U/L (5-40) H Alanine Aminotransferase (ALT/SGPT) 91 U/L (3-33) H Alkaline Phosphatase 195 U/L (35-104) H C-Reactive Protein, Quantitative 29.6 mg/dL (< 0.5) H Pro-B-Type Natriuretic Peptide 17630 pg/mL (0-450) H Total Protein 4.6 g/dL (6.6-8.7) L Albumin 2.3 g/dL (3.5-5.2) L Globulin 2.3 g/dL Albumin/Globulin Ratio 1.0 (1.0-2.7) Current Medications Medications (Trade) Dose Ordered Sig/Rina Route PRN Reason Start Time Stop Time Status Last Admin Dose Admin Acetaminophen (Tylenol) 650 mg Q6H PRN ORAL Mild Pain/Temp > 100.5 02/07/17 17:00 03/09/17 16:59 Acetaminophen/ Hydrocodone Bitart (Bixby 5/325) 1 tab Q4H PRN GT Moderate Pain (Pain Scale 4-6) 02/07/17 17:00 02/14/17 16:59 02/08/17 02:31 Albuterol/ Ipratropium (DuoNeb 0.5-3(2.5)mg/3ml) 3 ml Q4H PRN HHN Shortness of Breath 02/07/17 17:00 02/12/17 16:59 Aluminum Hydroxide (Amphojel) 1,920 mg Q6HR GT 02/07/17 18:00 03/09/17 17:59 02/08/17 05:52 Amlodipine Besylate (Norvasc) 5 mg BID GT 02/07/17 18:00 03/09/17 17:59 02/07/17 18:08 Dextrose (Dextrose 50%) STAT PRN IV Hypoglycemia 02/07/17 17:00 03/09/17 16:59 Docusate Sodium (Colace) 100 mg TID GT 02/07/17 18:00 03/09/17 17:59 02/07/17 18:00 Insulin Aspart (NovoLOG) Q6HR SUBQ 02/07/17 18:00 03/09/17 17:59 Lorazepam (Ativan 2mg/ml 1ml) 1 mg Q1H PRN IV For Anxiety 02/07/17 22:30 02/14/17 22:29 Menthol/Methyl Salicylate (Bengay) 1 applic FOUR TIMES A DAY TOPIC 02/07/17 18:00 03/09/17 17:59 02/07/17 20:59 Meropenem/Sodium Chloride (Merrem/Sodium Chloride) 55 ml @ 110 mls/hr DAILY@1400 IVPB 02/08/17 14:00 02/13/17 13:59 Nitroglycerin (Ntg) 0.4 mg Q5M X 3 DOSES PRN SL Prn Chest Pain 02/07/17 16:00 03/09/17 15:59 Ondansetron HCl (Zofran) 4 mg Q6H PRN IVP Nausea & Vomiting 02/07/17 17:00 03/09/17 16:59 Pantoprazole (Protonix) 40 mg EVERY 12 HOURS IVP 02/07/17 21:00 03/09/17 20:59 02/07/17 20:59 Polyethylene Glycol (Miralax) 17 gm DAILYPRN PRN GT Constipation 02/07/17 17:00 03/09/17 16:59 Sevelamer Carbonate (Renvela) 1,600 mg THREE TIMES A DAY GT 02/07/17 18:00 03/09/17 17:59 02/07/17 18:08 NIVIA GUARDADO Feb 08, 2017 07:41
[2017-02-08 08:03] LABS: ABG ALLEN TEST POSITIVE; ABG BASE EXCESS 3.4; ABG PCO2 63.8 mmHg (35.0-45.0)
[2017-02-08] MEDS: Renvela 800mg Pkt GT SCH ×3 (08:12→17:38)
[2017-02-08] MEDS: Docusate 100mg tablet GT SCH ×3 (08:12→17:37)
[2017-02-08] MEDS: Analgesic Balm 15gm TOPIC SCH ×4 (08:13→20:45)
[2017-02-08] MEDS: Pantoprazole Inj IVP SCH ×2 (08:13→20:44)
[2017-02-08] MEDS ORDERED: NS 275ml ONE (08:33)
[2017-02-08] MEDS ORDERED: Tubing Blood Filter IV ONE (08:33)
--- NOTE | 2017-02-08 09:36 | Critical Care Progress Note ---
Assessment/Plan Assessment/Plan hypoxemia respiratory failure respiratory acidosis pulmonary infiltrates thrombocytopenia renal failure ALOC chronic encephalopathy sepsis pulmonary infiltrates ARDS likely DIC likely worsening acidosis s/p transfusion PLAN off heparin, plavix, aspirin FFP heme evaluation follow up labs may need additional transfusion at risk for bleeding monitor renal function on HD continue to UF antibiotics noted taper fio2 to 80% follow up abg prognosis poor; not a candidate for biopsy at this time taking po; maintain with caution NG feeds follow up chest xr and labs for changes update son daily medications/laboratory data/nursing notes/ICU care reviewed in detail note reviewed and edited care discussed with RN and RT ICU time spent 38 minutes Critical Care - Subjective Interval Events: d/w son in length update given full code for now ROS Limited/Unobtainable: Yes EKG Rhythm: Sinus Rhythm Residuals: minimal Tube Feeding Tolerated: yes I&O: Intake and Output 02/07/17 02/08/17 19:00 07:00 Intake Total 460 ml Output Total 2540 ml 0 ml Balance -2540 ml 460 ml Free Water 40 ml Tube Feeding 420 ml Output Urine Total 40 ml 0 ml Hemodialysis UF 2500 ml # Bowel Movements 2 Critical Care - Objective ET-Tube: 7.0 ET Position: 22 Last 24 Hour Vital Signs Date Time Temp Pulse Resp B/P Pulse Ox O2 Delivery O2 Flow Rate FiO2 02/08/17 09:27 91 24 80 02/08/17 09:00 83 22 141/50 100 Mechanical Ventilator 90 02/08/17 08:24 88 02/08/17 08:13 82 146/49 02/08/17 08:00 90 02/08/17 08:00 98.2 83 27 146/49 98 Mechanical Ventilator 90 02/08/17 07:00 87 19 133/39 100 Mechanical Ventilator 100 02/08/17 06:50 86 24 90 02/08/17 06:05 86 02/08/17 06:00 86 23 127/44 100 Mechanical Ventilator 100 02/08/17 05:00 102 19 124/41 100 Mechanical Ventilator 100 02/08/17 04:56 122 22 100 02/08/17 04:00 98.3 103 21 100/40 99 Mechanical Ventilator 100 02/08/17 03:30 98.3 02/08/17 03:00 110 22 94/48 99 Mechanical Ventilator 100 02/08/17 02:46 129 22 100 02/08/17 02:00 130 25 114/67 98 Mechanical Ventilator 100 02/08/17 01:20 133 24 100 02/08/17 01:00 98 21 143/68 99 Mechanical Ventilator 100 02/08/17 00:00 90 02/08/17 00:00 50 02/08/17 00:00 98.5 90 20 139/60 99 Mechanical Ventilator 100 02/07/17 23:00 90 21 151/60 96 Mechanical Ventilator 100 02/07/17 22:56 90 22 100 02/07/17 22:00 89 20 151/68 96 Mechanical Ventilator 100 02/07/17 21:00 90 19 146/80 96 Mechanical Ventilator 100 02/07/17 20:47 91 22 100 02/07/17 20:00 98.0 87 18 147/60 96 Mechanical Ventilator 100 02/07/17 20:00 87 02/07/17 19:00 84 19 144/69 96 Mechanical Ventilator 100 02/07/17 18:55 Mechanical Ventilator 100 02/07/17 18:55 81 22 100 02/07/17 18:54 97 Mechanical Ventilator 100 02/07/17 18:53 80 22 Bi-pap 100 02/07/17 18:08 81 135/58 02/07/17 18:00 79 20 135/57 94 Mechanical Ventilator 100 02/07/17 18:00 100 02/07/17 17:20 79 22 100 02/07/17 17:00 80 20 126/63 94 Mechanical Ventilator 100 02/07/17 16:00 73 02/07/17 16:00 100 02/07/17 16:00 98.2 80 28 132/53 96 Mechanical Ventilator 100 02/07/17 15:30 74 22 100 02/07/17 14:22 Bi-pap 15.0 100 02/07/17 14:18 Bi-pap 15.0 100 02/07/17 12:00 86 02/07/17 12:00 97.3 86 33 136/73 93 Bi-pap 100 02/07/17 11:20 88 29 93 Facial 100 02/07/17 11:00 15.0 100 Labs: Labs Test 02/06/17 09:29 02/06/17 10:20 02/06/17 22:38 02/07/17 03:22 Arterial Blood pH 7.337 (7.350-7.450) 7.234 (7.350-7.450) 7.259 (7.350-7.450) Arterial Blood Partial Pressure CO2 55.9 mmHg (35.0-45.0) 60.3 mmHg (35.0-45.0) 54.2 mmHg (35.0-45.0) Arterial Blood Partial Pressure O2 78.7 mmHg (75.0-100.0) < 64.0 mmHg (75.0-100.0) < 64.0 mmHg (75.0-100.0) Arterial Blood HCO3 29.3 mmol/L (22.0-26.0) 24.9 mmol/L (22.0-26.0) 23.7 mmol/L (22.0-26.0) Arterial Blood Oxygen Saturation 93.3 % (92.0-98.0) 82.6 % (92.0-98.0) 85.0 % (92.0-98.0) Arterial Blood Base Excess 2.9 -3.3 -3.7 Levy Test Positive Positive Positive White Blood Count 6.9 K/UL (4.8-10.8) Red Blood Count 2.59 M/UL (4.20-5.40) Hemoglobin 7.7 G/DL (12.0-16.0) Hematocrit 24.0 % (37.0-47.0) Mean Corpuscular Volume 93 FL (80-99) Mean Corpuscular Hemoglobin 29.9 PG (27.0-31.0) Mean Corpuscular Hemoglobin Concent 32.2 G/DL (32.0-36.0) Red Cell Distribution Width 16.1 % (11.6-14.8) Platelet Count 86 K/UL (150-450) Mean Platelet Volume 6.5 FL (6.5-10.1) Neutrophils (%) (Auto) % (45.0-75.0) Lymphocytes (%) (Auto) % (20.0-45.0) Monocytes (%) (Auto) % (1.0-10.0) Eosinophils (%) (Auto) % (0.0-3.0) Basophils (%) (Auto) % (0.0-2.0) Differential Total Cells Counted 100 Neutrophils % (Manual) 89 % (45-75) Lymphocytes % (Manual) 3 % (20-45) Monocytes % (Manual) 4 % (1-10) Eosinophils % (Manual) 3 % (0-3) Basophils % (Manual) 1 % (0-2) Band Neutrophils 0 % (0-8) Platelet Estimate Decreased Platelet Morphology Normal Hypochromasia 3+ Anisocytosis 1+ Sodium Level 144 mEQ/L (135-145) Potassium Level 4.1 mEQ/L (3.4-4.9) Chloride Level 100 mEQ/L (98-107) Carbon Dioxide Level 27 mEQ/L (20-30) Anion Gap 17 (5-15) Blood Urea Nitrogen 34 mg/dL (7-23) Creatinine 3.9 mg/dL (0.5-0.9) Estimat Glomerular Filtration Rate mL/min (>60) Glucose Level 121 mg/dL (74-106) Calcium Level 8.2 mg/dL (8.6-10.2) Test 02/07/17 03:30 02/07/17 05:00 02/07/17 09:16 02/07/17 12:57 Sodium Level 144 mEQ/L (135-145) Potassium Level 4.3 mEQ/L (3.4-4.9) Chloride Level 99 mEQ/L (98-107) Carbon Dioxide Level 22 mEQ/L (20-30) Anion Gap 23 (5-15) Blood Urea Nitrogen 53 mg/dL (7-23) Creatinine 4.7 mg/dL (0.5-0.9) Estimat Glomerular Filtration Rate mL/min (>60) Glucose Level 118 mg/dL (74-106) Calcium Level 8.7 mg/dL (8.6-10.2) Phosphorus Level 5.3 mg/dL (2.5-4.8) Magnesium Level 2.0 mg/dL (1.7-2.5) Total Bilirubin 11.8 mg/dL (0.0-1.2) Direct Bilirubin 8.9 mg/dL (0.1-0.3) Aspartate Amino Transf (AST/SGOT) 146 U/L (5-40) Alanine Aminotransferase (ALT/SGPT) 29 U/L (3-33) Alkaline Phosphatase 183 U/L (35-104) Total Protein 5.2 g/dL (6.6-8.7) Albumin 2.7 g/dL (3.5-5.2) Globulin 2.5 g/dL Albumin/Globulin Ratio 1.0 (1.0-2.7) Random Vancomycin Level 8.6 ug/mL White Blood Count 8.9 K/UL (4.8-10.8) Red Blood Count 3.91 M/UL (4.20-5.40) Hemoglobin 11.7 G/DL (12.0-16.0) Hematocrit 35.8 % (37.0-47.0) Mean Corpuscular Volume 91 FL (80-99) Mean Corpuscular Hemoglobin 29.9 PG (27.0-31.0) Mean Corpuscular Hemoglobin Concent 32.7 G/DL (32.0-36.0) Red Cell Distribution Width 15.6 % (11.6-14.8) Platelet Count 40 K/UL (150-450) Mean Platelet Volume 7.8 FL (6.5-10.1) Neutrophils (%) (Auto) % (45.0-75.0) Lymphocytes (%) (Auto) % (20.0-45.0) Monocytes (%) (Auto) % (1.0-10.0) Eosinophils (%) (Auto) % (0.0-3.0) Basophils (%) (Auto) % (0.0-2.0) Differential Total Cells Counted 100 Neutrophils % (Manual) 83 % (45-75) Lymphocytes % (Manual) 6 % (20-45) Monocytes % (Manual) 5 % (1-10) Eosinophils % (Manual) 0 % (0-3) Basophils % (Manual) 0 % (0-2) Band Neutrophils 6 % (0-8) Platelet Estimate Decreased Platelet Morphology Normal Hypochromasia 1+ Anisocytosis 1+ Arterial Blood pH 7.269 (7.350-7.450) 7.244 (7.350-7.450) Arterial Blood Partial Pressure CO2 50.2 mmHg (35.0-45.0) 58.9 mmHg (35.0-45.0) Arterial Blood Partial Pressure O2 66.1 mmHg (75.0-100.0) 64.0 mmHg (75.0-100.0) Arterial Blood HCO3 22.5 mmol/L (22.0-26.0) 24.9 mmol/L (22.0-26.0) Arterial Blood Oxygen Saturation 90.5 % (92.0-98.0) 75.2 % (92.0-98.0) Arterial Blood Base Excess -4.5 -2.9 Levy Test Positive Positive Test 02/07/17 16:46 02/07/17 18:15 02/08/17 04:00 02/08/17 07:55 Arterial Blood pH 7.267 (7.350-7.450) 7.299 (7.350-7.450) Arterial Blood Partial Pressure CO2 65.3 mmHg (35.0-45.0) 63.8 mmHg (35.0-45.0) Arterial Blood Partial Pressure O2 80.8 mmHg (75.0-100.0) 103.0 mmHg (75.0-100.0) Arterial Blood HCO3 29.1 mmol/L (22.0-26.0) 30.6 mmol/L (22.0-26.0) Arterial Blood Oxygen Saturation 93.9 % (92.0-98.0) 96.7 % (92.0-98.0) Arterial Blood Base Excess 1.2 3.4 Levy Test Positive Positive White Blood Count 22.0 K/UL (4.8-10.8) 17.5 K/UL (4.8-10.8) Red Blood Count 3.14 M/UL (4.20-5.40) 2.83 M/UL (4.20-5.40) Hemoglobin 10.1 G/DL (12.0-16.0) 8.7 G/DL (12.0-16.0) Hematocrit 28.4 % (37.0-47.0) 25.1 % (37.0-47.0) Mean Corpuscular Volume 90 FL (80-99) 89 FL (80-99) Mean Corpuscular Hemoglobin 32.1 PG (27.0-31.0) 30.8 PG (27.0-31.0) Mean Corpuscular Hemoglobin Concent 35.5 G/DL (32.0-36.0) 34.7 G/DL (32.0-36.0) Red Cell Distribution Width 16.6 % (11.6-14.8) 16.7 % (11.6-14.8) Platelet Count 39 K/UL (150-450) 34 K/UL (150-450) Mean Platelet Volume 10.5 FL (6.5-10.1) 8.4 FL (6.5-10.1) Neutrophils (%) (Auto) % (45.0-75.0) % (45.0-75.0) Lymphocytes (%) (Auto) % (20.0-45.0) % (20.0-45.0) Monocytes (%) (Auto) % (1.0-10.0) % (1.0-10.0) Eosinophils (%) (Auto) % (0.0-3.0) % (0.0-3.0) Basophils (%) (Auto) % (0.0-2.0) % (0.0-2.0) Differential Total Cells Counted 100 Neutrophils % (Manual) 84 % (45-75) Lymphocytes % (Manual) 9 % (20-45) Monocytes % (Manual) 4 % (1-10) Eosinophils % (Manual) 0 % (0-3) Basophils % (Manual) 0 % (0-2) Band Neutrophils 3 % (0-8) Nucleated Red Blood Cells 2 /100 WBC Platelet Estimate Decreased Platelet Morphology Normal Hypochromasia 1+ Anisocytosis 1+ Prothrombin Time 18.2 SEC (9.30-11.50) Prothromb Time International Ratio 1.8 (0.9-1.1) Activated Partial Thromboplast Time 37 SEC (23-33) Fibrinogen 184 mg/dL (200-400) D-Dimer 83728 ng/mL (<500) Sodium Level 145 mEQ/L (135-145) Potassium Level 3.9 mEQ/L (3.4-4.9) Chloride Level 99 mEQ/L (98-107) Carbon Dioxide Level 28 mEQ/L (20-30) Anion Gap 18 (5-15) Blood Urea Nitrogen 51 mg/dL (7-23) Creatinine 4.1 mg/dL (0.5-0.9) Estimat Glomerular Filtration Rate mL/min (>60) Glucose Level 97 mg/dL (74-106) Uric Acid 4.3 mg/dL (3.0-7.5) Calcium Level 8.4 mg/dL (8.6-10.2) Phosphorus Level 4.4 mg/dL (2.5-4.8) Magnesium Level 1.8 mg/dL (1.7-2.5) Total Bilirubin 3.4 mg/dL (0.0-1.2) Direct Bilirubin 2.2 mg/dL (0.1-0.3) Aspartate Amino Transf (AST/SGOT) 551 U/L (5-40) Alanine Aminotransferase (ALT/SGPT) 91 U/L (3-33) Alkaline Phosphatase 195 U/L (35-104) C-Reactive Protein, Quantitative 29.6 mg/dL (< 0.5) Pro-B-Type Natriuretic Peptide 85846 pg/mL (0-450) Total Protein 4.6 g/dL (6.6-8.7) Albumin 2.3 g/dL (3.5-5.2) Globulin 2.3 g/dL Albumin/Globulin Ratio 1.0 (1.0-2.7) Objective: [facility] chronically ill appearing; on the ventilator NAD coarse breath sounds bilaterally with rhonchi diffusely [id number] without MRG NABS nontender no HSM; feeding tube in place no CC; some edema nonfocal poorly responsive skin noted pupils sluggish Accucheck: 96 FELIPE PATHAK Feb 08, 2017 09:36
[2017-02-08 10:17] LABS: BAND NEUTROPHILS % (MANUAL) 6 % (0-8); EOSINOPHILS % (MANUAL) 1 % (0-3); LYMPHOCYTES % (MANUAL) 13 % (20-45); NEUTROPHILS % (MANUAL) 73 % (45-75); TOTAL CELLS COUNTED 100
[2017-02-08 10:18] LABS: NUCLEATED RED BLOOD CELLS 2 /100 WBC
[2017-02-08 10:19] LABS: ANISOCYTOSIS 1+; BASOPHILS % (MANUAL) 0 % (0-2); HYPOCHROMASIA 1+; PLATELET ESTIMATE DECREASED; PLATELET MORPHOLOGY NORMAL
--- NOTE | 2017-02-08 10:20 | Diagnostic Imaging Report ---
Indication: Status post orogastric tube insertion Technique: Supine views of the abdomen Comparison: Examination from earlier the same day at 1328 hrs. Findings: The orogastric tube is now within the stomach. Contrast is noted in the colon. Bowel gas pattern is otherwise nonspecific. Clips are noted in the right upper quadrant. Impression: Orogastric tube placement within the stomach seen on the 1627 hour film.
--- NOTE | 2017-02-08 10:39 | Diagnostic Imaging Report ---
Indication: Nasogastric tube placement Technique: Supine abdomen Comparison: None Findings: Nasogastric tube is not identified on the included image. Clips are seen in the right upper quadrant. Impression: Nasogastric tube not visualized on the included image.
--- NOTE | 2017-02-08 11:33 | General Progress Note ---
Assessment/Plan Status: unchanged Status Narrative on Vent now Assessment/Plan Has acute respiratory distress- intubated in ICU ( Had long talk with daughter Gali 01/19 ) - Acute renal failure and hyperKalemia - Renal failure, likely diabetic nephropathy / HTN - Sepsis , Pneumonia, Respiratory failure and Hypoxia other - h/o Cellulitis in diabetic foot right LE - Decubitus ulcer - Dementia - Diabetes mellitus - Nonpressure ulcer to level of fascia right lateral ankle - S/P ORIF right ankle Plan: intubate - ICU Poor po - NGT ? PEG? Had permacath 01/30 HD 02/07 done - 2500cc HD in am monitor WBCs adjust Phos binders Monitor renal parameters and Vanco level- ARTUR Kidney done last admission- unremarkable Adjust BP meds- Avoid Nephrotoxics- discussed with CM Per orders Subjective ROS Limited/Unobtainable: Yes Allergies: Coded Allergies: MORPHINE (Verified Adverse Reaction, Severe, PARADOXICAL REACTION, 10/08/12 ) Objective Last 24 Hour Vital Signs Date Time Temp Pulse Resp B/P Pulse Ox O2 Delivery O2 Flow Rate FiO2 02/08/17 11:00 102 20 127/48 100 Mechanical Ventilator 90 02/08/17 10:00 86 20 129/49 100 Mechanical Ventilator 90 02/08/17 09:27 91 24 80 02/08/17 09:00 83 22 141/50 100 Mechanical Ventilator 90 02/08/17 08:24 88 02/08/17 08:13 82 146/49 02/08/17 08:00 90 02/08/17 08:00 98.2 83 27 146/49 98 Mechanical Ventilator 90 02/08/17 07:00 87 19 133/39 100 Mechanical Ventilator 100 02/08/17 06:50 86 24 90 02/08/17 06:05 86 02/08/17 06:00 86 23 127/44 100 Mechanical Ventilator 100 02/08/17 05:00 102 19 124/41 100 Mechanical Ventilator 100 02/08/17 04:56 122 22 100 02/08/17 04:00 98.3 103 21 100/40 99 Mechanical Ventilator 100 02/08/17 03:30 98.3 02/08/17 03:00 110 22 94/48 99 Mechanical Ventilator 100 02/08/17 02:46 129 22 100 02/08/17 02:00 130 25 114/67 98 Mechanical Ventilator 100 02/08/17 01:20 133 24 100 02/08/17 01:00 98 21 143/68 99 Mechanical Ventilator 100 02/08/17 00:00 90 02/08/17 00:00 50 02/08/17 00:00 98.5 90 20 139/60 99 Mechanical Ventilator 100 02/07/17 23:00 90 21 151/60 96 Mechanical Ventilator 100 02/07/17 22:56 90 22 100 02/07/17 22:00 89 20 151/68 96 Mechanical Ventilator 100 02/07/17 21:00 90 19 146/80 96 Mechanical Ventilator 100 02/07/17 20:47 91 22 100 02/07/17 20:00 98.0 87 18 147/60 96 Mechanical Ventilator 100 02/07/17 20:00 87 02/07/17 19:00 84 19 144/69 96 Mechanical Ventilator 100 02/07/17 18:55 Mechanical Ventilator 100 02/07/17 18:55 81 22 100 02/07/17 18:54 97 Mechanical Ventilator 100 02/07/17 18:53 80 22 Bi-pap 100 02/07/17 18:08 81 135/58 02/07/17 18:00 79 20 135/57 94 Mechanical Ventilator 100 02/07/17 18:00 100 02/07/17 17:20 79 22 100 02/07/17 17:00 80 20 126/63 94 Mechanical Ventilator 100 02/07/17 16:00 73 02/07/17 16:00 100 02/07/17 16:00 98.2 80 28 132/53 96 Mechanical Ventilator 100 02/07/17 15:30 74 22 100 02/07/17 14:22 Bi-pap 15.0 100 02/07/17 14:18 Bi-pap 15.0 100 02/07/17 12:00 86 02/07/17 12:00 97.3 86 33 136/73 93 Bi-pap 100 Intake and Output 02/07/17 02/08/17 19:00 07:00 Intake Total 460 ml Output Total 2540 ml 0 ml Balance -2540 ml 460 ml Free Water 40 ml Tube Feeding 420 ml Output Urine Total 40 ml 0 ml Hemodialysis UF 2500 ml # Bowel Movements 2 Laboratory Tests 02/07/17 12:57: Arterial Blood pH 7.244*L, Arterial Blood Partial Pressure CO2 58.9*H, Arterial Blood Partial Pressure O2 64.0L, Arterial Blood HCO3 24.9, Arterial Blood Oxygen Saturation 75.2L, Arterial Blood Base Excess -2.9, Levy Test Positive 02/07/17 16:46: Arterial Blood pH 7.267L, Arterial Blood Partial Pressure CO2 65.3*H, Arterial Blood Partial Pressure O2 80.8, Arterial Blood HCO3 29.1H, Arterial Blood Oxygen Saturation 93.9, Arterial Blood Base Excess 1.2, Levy Test Positive 02/07/17 18:15: White Blood Count 22.0#H, Red Blood Count 3.14L, Hemoglobin 10.1L, Hematocrit 28.4L, Mean Corpuscular Volume 90, Mean Corpuscular Hemoglobin 32.1H, Mean Corpuscular Hemoglobin Concent 35.5, Red Cell Distribution Width 16.6H, Platelet Count 39L, Mean Platelet Volume 10.5H, Neutrophils (%) (Auto) , Lymphocytes (%) (Auto) , Monocytes (%) (Auto) , Eosinophils (%) (Auto) , Basophils (%) (Auto) , Differential Total Cells Counted 100, Neutrophils % ( Manual) 84H, Lymphocytes % (Manual) 9L, Monocytes % (Manual) 4, Eosinophils % ( Manual) 0, Basophils % (Manual) 0, Band Neutrophils 3, Nucleated Red Blood Cells 2, Platelet Estimate DecreasedL, Platelet Morphology Normal, Hypochromasia 1+, Anisocytosis 1+, Prothrombin Time 18.2H, Prothromb Time International Ratio 1.8H, Activated Partial Thromboplast Time 37H, Fibrinogen 184L, D-Dimer [id number] 02/08/17 04:00: White Blood Count 17.5H, Red Blood Count 2.83L, Hemoglobin 8.7L, Hematocrit 25.1L, Mean Corpuscular Volume 89, Mean Corpuscular Hemoglobin 30.8, Mean Corpuscular Hemoglobin Concent 34.7, Red Cell Distribution Width 16.7H, Platelet Count 34L, Mean Platelet Volume 8.4, Neutrophils (%) (Auto) , Lymphocytes (%) (Auto) , Monocytes (%) (Auto) , Eosinophils (%) (Auto) , Basophils (%) (Auto) , Differential Total Cells Counted 100, Neutrophils % ( Manual) 73, Lymphocytes % (Manual) 13L, Monocytes % (Manual) 7, Eosinophils % ( Manual) 1, Basophils % (Manual) 0, Band Neutrophils 6, Nucleated Red Blood Cells 2, Platelet Estimate DecreasedL, Platelet Morphology Normal, Hypochromasia 1+, Anisocytosis 1+, Sodium Level 145, Potassium Level 3.9, Chloride Level 99, Carbon Dioxide Level 28, Anion Gap 18H, Blood Urea Nitrogen 51H, Creatinine 4.1H, Estimat Glomerular Filtration Rate , Glucose Level 97, Uric Acid 4.3, Calcium Level 8.4L, Phosphorus Level 4.4, Magnesium Level 1.8, Total Bilirubin 3.4H, Direct Bilirubin 2.2H, Aspartate Amino Transf (AST/SGOT) 551H, Alanine Aminotransferase (ALT/SGPT) 91H, Alkaline Phosphatase 195H, C- Reactive Protein, Quantitative 29.6H, Pro-B-Type Natriuretic Peptide [id number], Total Protein 4.6L, Albumin 2.3L, Globulin 2.3, Albumin/Globulin Ratio 1.0 02/08/17 07:55: Arterial Blood pH 7.299L, Arterial Blood Partial Pressure CO2 63.8*H, Arterial Blood Partial Pressure O2 103.0H, Arterial Blood HCO3 30.6H, Arterial Blood Oxygen Saturation 96.7, Arterial Blood Base Excess 3.4, Levy Test Positive Height (Feet): 5 Height (Inches): 1.00 Weight (Pounds): 200 General Appearance: no apparent distress EENT: other - intubated in ICU Respiratory/Chest: decreased breath sounds Abdomen: soft Objective other PE not changed BERTRAM CASTAÑEDA Feb 08, 2017 11:33
[2017-02-08] MEDS: Meropenem 500 MG in NS 55 ML IVPB SCH (14:35)
--- NOTE | 2017-02-08 16:24 | Consultation ---
Consult Note Consult Note DATE OF CONSULTATION: 02/08/2017 HEMATOLOGY CONSULTATION CONSULTING PHYSICIAN: Nicholas Ly MD REASON FOR CONSULT: Eval of thrombocytopenia HISTORY OF PRESENT ILLNESS: This is a 76-year-old demented, diabetic female, a [facility] resident, admitted on 01/18/2017 with hypoxia. She initially required a non-rebreather mask for oxygenation and since then has required intubation. The patient was recently admitted with right ankle osteomyelitis and hardware infection, for which she did not complete her antibiotic course due to family request. Antibiotic course was complicated by acute renal failure requiring dialysis. Unknown whether or not she is still receiving dialysis. She has lymphadenopathy diffusely as well as a lung mass, b/l pleural effusions and hematology service was consulted for further evaluation and management. PAST MEDICAL HISTORY: 1. Diabetes. 2. Chronic kidney disease. 3. Coronary artery disease. 4. Dementia. 5. Right ankle osteomyelitis and hardware infection. PAST SURGICAL HISTORY: Right ankle open reduction and internal fixation and subsequent hardware removal on 12/15/2016. FAMILY HISTORY: Unknown. SOCIAL HISTORY: The patient is a resident of a [facility]. She has family involved in her care. No active tobacco, alcohol, or illicit drug abuse. ALLERGIES: Morphine. MEDICATIONS: 1. Vancomycin. 2. Cefepime. 3. Norvasc. 4. Subcutaneous heparin. REVIEW OF SYSTEMS: Unable to obtain. Intubated PHYSICAL EXAMINATION: VITAL SIGNS: Stable, has been reviewed GENERAL: Mild respiratory distress. CARDIOVASCULAR: Regular rate and rhythm. No murmurs. PULMONARY: Clear to auscultation bilaterally. ABDOMINAL: Bowel sounds present. Soft, nondistended, and nontender. EXTREMITIES: No edema. Right lateral ankle surgical wound is well healed. Laboratory Tests Test 02/07/17 16:46 02/07/17 18:15 02/08/17 04:00 02/08/17 07:55 Arterial Blood pH 7.267 (7.350-7.450) 7.299 (7.350-7.450) Arterial Blood Partial Pressure CO2 65.3 mmHg (35.0-45.0) *H 63.8 mmHg (35.0-45.0) *H Arterial Blood Partial Pressure O2 80.8 mmHg (75.0-100.0) 103.0 mmHg (75.0-100.0) H Arterial Blood HCO3 29.1 mmol/L (22.0-26.0) H 30.6 mmol/L (22.0-26.0) H Arterial Blood Oxygen Saturation 93.9 % (92.0-98.0) 96.7 % (92.0-98.0) Arterial Blood Base Excess 1.2 3.4 Levy Test Positive Positive White Blood Count 22.0 K/UL (4.8-10.8) #H 17.5 K/UL (4.8-10.8) H Red Blood Count 3.14 M/UL (4.20-5.40) L 2.83 M/UL (4.20-5.40) L Hemoglobin 10.1 G/DL (12.0-16.0) L 8.7 G/DL (12.0-16.0) L Hematocrit 28.4 % (37.0-47.0) L 25.1 % (37.0-47.0) L Mean Corpuscular Volume 90 FL (80-99) 89 FL (80-99) Mean Corpuscular Hemoglobin 32.1 PG (27.0-31.0) H 30.8 PG (27.0-31.0) Mean Corpuscular Hemoglobin Concent 35.5 G/DL (32.0-36.0) 34.7 G/DL (32.0-36.0) Red Cell Distribution Width 16.6 % (11.6-14.8) H 16.7 % (11.6-14.8) H Platelet Count 39 K/UL (150-450) L 34 K/UL (150-450) L Mean Platelet Volume 10.5 FL (6.5-10.1) H 8.4 FL (6.5-10.1) Neutrophils (%) (Auto) % (45.0-75.0) % (45.0-75.0) Lymphocytes (%) (Auto) % (20.0-45.0) % (20.0-45.0) Monocytes (%) (Auto) % (1.0-10.0) % (1.0-10.0) Eosinophils (%) (Auto) % (0.0-3.0) % (0.0-3.0) Basophils (%) (Auto) % (0.0-2.0) % (0.0-2.0) Differential Total Cells Counted 100 100 Neutrophils % (Manual) 84 % (45-75) H 73 % (45-75) Lymphocytes % (Manual) 9 % (20-45) L 13 % (20-45) L Monocytes % (Manual) 4 % (1-10) 7 % (1-10) Eosinophils % (Manual) 0 % (0-3) 1 % (0-3) Basophils % (Manual) 0 % (0-2) 0 % (0-2) Band Neutrophils 3 % (0-8) 6 % (0-8) Nucleated Red Blood Cells 2 /100 WBC 2 /100 WBC Platelet Estimate Decreased L Decreased L Platelet Morphology Normal Normal Hypochromasia 1+ 1+ Anisocytosis 1+ 1+ Prothrombin Time 18.2 SEC (9.30-11.50) H Prothromb Time International Ratio 1.8 (0.9-1.1) H Activated Partial Thromboplast Time 37 SEC (23-33) H Fibrinogen 184 mg/dL (200-400) L D-Dimer 30517 ng/mL (<500) H Sodium Level 145 mEQ/L (135-145) Potassium Level 3.9 mEQ/L (3.4-4.9) Chloride Level 99 mEQ/L (98-107) Carbon Dioxide Level 28 mEQ/L (20-30) Anion Gap 18 (5-15) H Blood Urea Nitrogen 51 mg/dL (7-23) H Creatinine 4.1 mg/dL (0.5-0.9) H Estimat Glomerular Filtration Rate mL/min (>60) Glucose Level 97 mg/dL (74-106) Uric Acid 4.3 mg/dL (3.0-7.5) Calcium Level 8.4 mg/dL (8.6-10.2) L Phosphorus Level 4.4 mg/dL (2.5-4.8) Magnesium Level 1.8 mg/dL (1.7-2.5) Total Bilirubin 3.4 mg/dL (0.0-1.2) H Direct Bilirubin 2.2 mg/dL (0.1-0.3) H Aspartate Amino Transf (AST/SGOT) 551 U/L (5-40) H Alanine Aminotransferase (ALT/SGPT) 91 U/L (3-33) H Alkaline Phosphatase 195 U/L (35-104) H C-Reactive Protein, Quantitative 29.6 mg/dL (< 0.5) H Pro-B-Type Natriuretic Peptide 65216 pg/mL (0-450) H Total Protein 4.6 g/dL (6.6-8.7) L Albumin 2.3 g/dL (3.5-5.2) L Globulin 2.3 g/dL Albumin/Globulin Ratio 1.0 (1.0-2.7) Assessment/Plan Assessment: # Thrombocytopenia - is likely related to underlying DIC and sepsis - remains on broad spectrum antibiotics # 17 mm right middle lobe mass. 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 bilateral right greater than left pleural effusions and Mediastinal lymphadenopathy - she is a poor candidate for biopsy and has a poor prognosis # Anemia 2/2 chronic disease - s/p multiple units of blood # Leukocytosis - related to sepsis and underlying infection, is on antiobiotics # Respiratory failure s/p intubation # Respiratory acidosis # Renal failure # ALOC # Sepsis Recs: - Transfuse to hgb goal >7, plt goal >20k if bleeding - Have sent off for DIC workup as well as anemia w/u, labs are in EMR, will followup - She is off heparin, plavix, aspirin - Agree to administer FFP if INR >2 - Does not require a biopsy as has poor prognosis and poor outcome at this time - NG feeds at maximal rate - Appreciate consultation!! continue to follow Mariano Ortiz Feb 08, 2017 16:24
[2017-02-08 17:58] LABS: HEMOLYSIS 9; IRON 166 ug/dL (37-145); TOTAL IRON BINDING CAPACITY 275 ug/dL (250-400)
[2017-02-08 18:12] LABS: BILIRUBIN,DIRECT 0.9 mg/dL (0.1-0.3)
[2017-02-08 19:57] LABS: PATH BLOOD SMEAR/OMC SENT TO PATHOLOGIST
[2017-02-09] VITALS (77 sets, daily range): BP systolic 75–147; BP diastolic 28–88
--- NOTE | 2017-02-09 03:08 | Progress Note ---
DATE: 02/08/2017 CARDIOLOGY PROGRESS NOTE: SUBJECTIVE: The patient required intubation and is now on mechanical ventilation due to worsening respiratory acidosis and hypoxia. OBJECTIVE: VITAL SIGNS: Blood pressure 141/50, heart rate 83, respiratory rate 22, and monitor atrial fibrillation. LUNGS: Bilateral rales. HEART: Irregularly irregular rhythm. Normal S1, S2. ABDOMEN: Soft. EXTREMITIES: A 1+ dependent edema. LABORATORY DATA: ABG, pH 7.3, pCO2 64, and pO2 103. Potassium is 3.9, BUN 51, and creatinine 4.1. Pro-natriuretic peptide 62498. White count 17.5, hemoglobin 8.7, and platelet count 34,000. INR 1.8. IMPRESSION: 1. Respiratory failure. 2. Respiratory acidosis. 3. Hypoxia. 4. Acquired immune deficiency syndrome. 5. Nosocomial pneumonia. 6. Acute on chronic diastolic congestive heart failure. 7. Atrial fibrillation, rate controlled. 8. Right ankle osteomyelitis status post hardware removal. 9. Acute renal failure now on hemodialysis. 10. Disseminated intravascular coagulation. PLAN: Hemodialysis with ultrafiltration. No role at this time for antiarrhythmics. Anticoagulation is on hold due to bleeding risk from thrombocytopenia. Prognosis remains grave. Condition is critical. Joss Rush M.D. DR: Akila JOB#: [id number] CC:
[2017-02-09 03:14] LABS: ABG ALLEN TEST POSITIVE; ABG PCO2 78.2 mmHg (35.0-45.0)
--- NOTE | 2017-02-09 03:45 | Emergency Room Report ---
Physical Exam Vital Signs Date Time Temp Pulse Resp B/P Pulse Ox O2 Delivery O2 Flow Rate FiO2 01/18/17 21:19 76 20 134/54 98 Non-Rebreather 15.0 01/18/17 22:21 100 01/19/17 08:00 94.9 Sp02 EP Interpretation: reviewed General Appearance: severe distress, Stupor Head: normocephalic ENT: other - large amount of secretion in mouth. Mostly tube feeding Neck: supple Respiratory: crackles, rales Cardiovascular #1: regular rate, rhythm Gastrointestinal: normal inspection Musculoskeletal: swelling Neurologic: grossly normal Skin: normal color Lymphatic: normal inspection Critical Care Time Critical Care Time Critical care is mandated in this patient who presented with respiratory failure. Patient require my urgent intervention to attenuate the risks of respiratory arrest which may lead to cardiovascular collapse and . Critical care time is 35 minutes excluding any reportable procedure. Critical care time included evaluation, multiple reevaluation, looking at old charts, interpreting laboratory and diagnostic data, discussing case with patient and family and consultants, and charting. Intubation Intubation : Consent: Emergent Intubation Method: orotracheal Tube Size (cm): 7.0 Medications: Etomidate, Succinylcholine Breath Sounds after Intubation: equal Intubation Complications: no complications Post Intubation Xray: Yes Progress/Xray Impression: Endotracheal tube in good position. Diffuse interstitial infiltrates. Attempts: One Patient Tolerated: Well Complications: None Medical Decision Making Diagnostic Impression: Primary Impression: Sepsis Qualified Codes: A41.9 - Sepsis, unspecified organism Additional Impressions: Respiratory failure with hypoxia Qualified Codes: J96.21 - Acute and chronic respiratory failure with hypoxia Acute on chronic renal failure Anemia of chronic kidney failure Qualified Codes: N18.5 - Chronic kidney disease, stage 5; D63.1 - Anemia in chronic kidney disease Pneumonia Qualified Codes: J18.9 - Pneumonia, unspecified organism Hyperkalemia ER Course Patient was admitted for sepsis and respiratory failure. She was subsequently intubated. She self extubated herself earlier today. A [facility] was called and I responded. On arrival she was having assisted breathing with bag-valve- mask. Per nursing staff, she had self extubated and beginning more dyspneic with rest or distress. She was becoming hypoxic and required intervention. She never lost pulse or blood pressure. This was more of a respiratory code. I proceeded to intubate the patient. Prior to intubation I suctioned copious amount of fluid mostly to feeding from the oropharynx. Was able to intubate the patient without any difficulty after giving her etomidate and succinylcholine. Chest x-ray was done. Patient was placed back on her regular of her prior setting. Chest X-Ray Diagnostic Results EP Interpretation: Yes Findings: no pneumothorax, other - Endotracheal tube in good position. Diffuse interstitial infiltrates. Number of Views: 1 Last Vital Signs Date Time Temp Pulse Resp B/P Pulse Ox O2 Delivery O2 Flow Rate FiO2 02/09/17 03:07 101 22 100 02/09/17 01:30 135/41 97 Mechanical Ventilator 02/09/17 00:00 98.6 02/07/17 14:22 15.0 Status: improved Disposition: ADMITTED INPATIENT Condition: Critical Referrals: SHYAM NAVA (PCP) YAYA RODRIGUEZ M.D. Feb 09, 2017 03:45
--- NOTE | 2017-02-09 04:28 | Consultation ---
DATE OF CONSULTATION: 02/07/2017 CARDIOLOGY CONSULTATION REQUESTING PHYSICIAN: Frankie Ly M.D. REASON FOR CONSULTATION: Atrial fibrillation. HISTORY OF PRESENT ILLNESS: This is a 76-year-old female, admitted to the hospital on 01/18/2017 with respiratory distress and hypoxia. She was noted to have pulmonary edema, initially on BiPAP support and subsequently required intubation and mechanical ventilation. I have been asked to assist with cardiovascular care at this time addressing both congestive heart failure and atrial fibrillation. The patient has extensive infiltrates and is in DIC now. She is off anticoagulants and antiplatelet drugs. CURRENT MEDICATIONS: Reviewed and reconciled. ALLERGIES: Include morphine. SOCIAL HISTORY: Negative for smoking or alcohol use. PHYSICAL EXAMINATION: VITAL SIGNS: Blood pressure 143/61, pulse 74, respirations 18, and afebrile. LUNGS: Bilateral breath sounds. Scattered rhonchi. HEART: Irregularly irregular rhythm. Normal S1 and S2. ABDOMEN: Soft. EXTREMITIES: A 1+ dependent edema. LABORATORY DATA: An abdominal x-ray today was obtained for placement of NG-tube. A chest x-ray was obtained yesterday on 02/06/2017 showing pleural effusion and diffuse extensive bilateral parenchymal disease. Workup to date is notable for an echocardiogram performed on 01/18/2017 revealing a normal ejection fraction. Her EKG reveals sinus rhythm with no acute pathology. Laboratory today white count 22 and hemoglobin 10. Sodium 144, potassium 4.3, bicarbonate 22, BUN 53, and creatinine 4.7. Albumin is 2.7. ABG 7.24, 59, and 64. IMPRESSION: 1. Possible acquired immune deficiency syndrome. 2. Hospital-acquired pneumonia. 3. Respiratory failure. 4. Sepsis. 5. Respiratory acidosis. 6. Atrial fibrillation rate controlled. PLAN: 1. Antimicrobial. 2. Ventilator support. 3. BiPAP support. Avoid intubation if able. 4. Blood gases. We will add anticoagulation in view of bleeding risks. 5. Condition is critical. 6. Prognosis is guarded. Joss Rush M.D. DR: ERICKA JOB#: [id number] CC:
[2017-02-09 05:01] LABS: MEAN CORPUSCULAR HEMOGLOBIN 30.2 PG (27.0-31.0); MEAN CORPUSCULAR HGB CONC 33.1 G/DL (32.0-36.0); MEAN CORPUSCULAR VOLUME 91 FL (80-99); MEAN PLATELET VOLUME 9.4 FL (6.5-10.1); PLATELET COUNT 27 K/UL (150-450); RED CELL DISTRIBUTION WIDTH 16.4 % (11.6-14.8); WHITE BLOOD COUNT 17.7 K/UL (4.8-10.8)
[2017-02-09 05:25] LABS: ALANINE AMINOTRANSFERASE 95 U/L (3-33); ALBUMIN/GLOBULIN RATIO 0.8 (1.0-2.7); ANION GAP 18 (5-15); ASPARTATE AMINO TRANSFERASE 164 U/L (5-40); CALCIUM 8.7 mg/dL (8.6-10.2); CARBON DIOXIDE 28 mEQ/L (20-30); CHLORIDE 97 mEQ/L (98-107); CREATININE 5.1 mg/dL (0.5-0.9); HEMOLYSIS 16; POTASSIUM 4.4 mEQ/L (3.4-4.9); SODIUM 143 mEQ/L (135-145); TOTAL PROTEIN 4.8 g/dL (6.6-8.7)
[2017-02-09 05:55] LABS: BILIRUBIN,DIRECT 0.6 mg/dL (0.1-0.3); CRP QUANT 33.9 mg/dL (< 0.5)
[2017-02-09] MEDS: Aluminum Hydroxide Gel Susp 15ml GT SCH ×2 (06:10→12:00)
[2017-02-09] MEDS: NovoLOG Insulin Flexpen SUBQ SCH ×3 (06:11→18:00)
[2017-02-09 06:51] LABS: ABG PCO2 68.4 mmHg (35.0-45.0)
[2017-02-09 06:52] LABS: ABG ALLEN TEST POSITIVE
[2017-02-09] MEDS ORDERED: Levophed 4mg/4mL Inj IV ONE (07:04)
--- NOTE | 2017-02-09 08:20 | Critical Care Progress Note ---
Assessment/Plan Assessment/Plan hypoxemia respiratory failure respiratory acidosis pulmonary infiltrates thrombocytopenia renal failure ALOC chronic encephalopathy sepsis pulmonary infiltrates ARDS likely DIC likely worsening acidosis s/p transfusion atrial fibrillation hypotension shock PLAN off heparin, plavix, aspirin FFP and platelets as needed heme evaluation follow up labs levophed as needed rate control may need additional transfusion pending follow up at risk for bleeding monitor renal function on HD continue to UF antibiotics noted taper fio2 as able increase AC rate follow up abg prognosis poor; not a candidate for biopsy at this time taking po; maintain with caution NG feeds follow up chest xr and labs for changes updated son daily and discussed code status medications/laboratory data/nursing notes/ICU care reviewed in detail note reviewed and edited care discussed with RN and RT ICU time spent 40 minutes Critical Care - Subjective Interval Events: went into atrial fibrillation had to be reintubated doing poorly now on pressors son updated ROS Limited/Unobtainable: Yes Condition: critical EKG Rhythm: Atrial Fibrillation I&O: Intake and Output 02/08/17 02/09/17 19:00 07:00 Intake Total 835 ml 435 ml Output Total 0 ml 0 ml Balance 835 ml 435 ml Free Water 20 ml 20 ml IV Total 55 ml Tube Feeding 420 ml 385 ml Blood Product 250 ml Other 90 ml 30 ml Output Urine Total 0 ml 0 ml # Bowel Movements 1 Critical Care - Objective ET-Tube: 7.0 ET Position: 22 Last 24 Hour Vital Signs Date Time Temp Pulse Resp B/P Pulse Ox O2 Delivery O2 Flow Rate FiO2 02/09/17 08:00 122/73 02/09/17 07:45 82 20 115/48 90 Mechanical Ventilator 100 02/09/17 07:30 83 20 96/32 92 Mechanical Ventilator 100 02/09/17 07:15 82 20 90/60 90 Mechanical Ventilator 100 02/09/17 07:00 86 20 83/43 90 Mechanical Ventilator 100 02/09/17 07:00 98 25 100 02/09/17 07:00 86/45 02/09/17 06:00 86 20 84/44 88 Mechanical Ventilator 100 02/09/17 05:06 90 23 100 02/09/17 05:00 101 20 89/33 88 Mechanical Ventilator 100 02/09/17 04:00 86 02/09/17 04:00 98.5 101 20 84/42 87 Mechanical Ventilator 100 02/09/17 04:00 100 02/09/17 03:30 101 20 84/33 89 Mechanical Ventilator 100 02/09/17 03:07 101 22 100 02/09/17 03:00 101 20 83/39 91 Mechanical Ventilator 100 02/09/17 02:30 77 20 80/30 95 Mechanical Ventilator 100 02/09/17 02:00 106 28 123/51 88 Mechanical Ventilator 100 02/09/17 01:30 83 28 135/41 97 Mechanical Ventilator 100 02/09/17 01:00 99 28 128/56 97 Mechanical Ventilator 100 02/09/17 00:58 110 25 100 02/09/17 00:00 98.6 98 26 133/42 98 Mechanical Ventilator 100 02/09/17 00:00 98 02/08/17 23:53 98.6 02/08/17 23:51 100 02/08/17 23:08 102 30 100 02/08/17 23:00 114 27 140/62 97 Mechanical Ventilator 100 02/08/17 22:00 102 29 107/21 95 Mechanical Ventilator 100 02/08/17 21:00 101 26 100/36 90 Mechanical Ventilator 80 02/08/17 21:00 101 02/08/17 21:00 100 02/08/17 20:58 103 29 100 02/08/17 20:00 90 02/08/17 20:00 80 02/08/17 20:00 90 26 130/39 97 Mechanical Ventilator 80 02/08/17 19:00 87 24 144/39 96 Mechanical Ventilator 80 02/08/17 18:42 88 29 80 02/08/17 18:01 92 24 128/98 96 Mechanical Ventilator 80 02/08/17 17:37 92 148/46 02/08/17 17:06 91 22 148/46 98 Mechanical Ventilator 80 02/08/17 16:52 96 26 80 02/08/17 16:00 89 02/08/17 16:00 98.1 114 21 106/45 98 Mechanical Ventilator 80 02/08/17 16:00 80 02/08/17 15:00 110 22 119/54 98 Mechanical Ventilator 80 02/08/17 14:56 113 32 80 02/08/17 14:00 105 26 105/39 96 Mechanical Ventilator 80 02/08/17 13:00 103 29 118/49 96 Mechanical Ventilator 90 02/08/17 12:41 83 29 80 02/08/17 12:00 98.4 102 19 111/42 100 Mechanical Ventilator 80 02/08/17 12:00 80 02/08/17 12:00 95 02/08/17 11:29 109 25 80 02/08/17 11:00 102 20 127/48 100 Mechanical Ventilator 90 02/08/17 10:00 86 20 129/49 100 Mechanical Ventilator 90 02/08/17 09:27 91 24 80 02/08/17 09:00 83 22 141/50 100 Mechanical Ventilator 90 02/08/17 08:24 88 Labs: Labs Test 02/06/17 09:29 02/06/17 10:20 02/06/17 22:38 02/07/17 03:22 Arterial Blood pH 7.337 (7.350-7.450) 7.234 (7.350-7.450) 7.259 (7.350-7.450) Arterial Blood Partial Pressure CO2 55.9 mmHg (35.0-45.0) 60.3 mmHg (35.0-45.0) 54.2 mmHg (35.0-45.0) Arterial Blood Partial Pressure O2 78.7 mmHg (75.0-100.0) < 64.0 mmHg (75.0-100.0) < 64.0 mmHg (75.0-100.0) Arterial Blood HCO3 29.3 mmol/L (22.0-26.0) 24.9 mmol/L (22.0-26.0) 23.7 mmol/L (22.0-26.0) Arterial Blood Oxygen Saturation 93.3 % (92.0-98.0) 82.6 % (92.0-98.0) 85.0 % (92.0-98.0) Arterial Blood Base Excess 2.9 -3.3 -3.7 Levy Test Positive Positive Positive White Blood Count 6.9 K/UL (4.8-10.8) Red Blood Count 2.59 M/UL (4.20-5.40) Hemoglobin 7.7 G/DL (12.0-16.0) Hematocrit 24.0 % (37.0-47.0) Mean Corpuscular Volume 93 FL (80-99) Mean Corpuscular Hemoglobin 29.9 PG (27.0-31.0) Mean Corpuscular Hemoglobin Concent 32.2 G/DL (32.0-36.0) Red Cell Distribution Width 16.1 % (11.6-14.8) Platelet Count 86 K/UL (150-450) Mean Platelet Volume 6.5 FL (6.5-10.1) Neutrophils (%) (Auto) % (45.0-75.0) Lymphocytes (%) (Auto) % (20.0-45.0) Monocytes (%) (Auto) % (1.0-10.0) Eosinophils (%) (Auto) % (0.0-3.0) Basophils (%) (Auto) % (0.0-2.0) Differential Total Cells Counted 100 Neutrophils % (Manual) 89 % (45-75) Lymphocytes % (Manual) 3 % (20-45) Monocytes % (Manual) 4 % (1-10) Eosinophils % (Manual) 3 % (0-3) Basophils % (Manual) 1 % (0-2) Band Neutrophils 0 % (0-8) Platelet Estimate Decreased Platelet Morphology Normal Hypochromasia 3+ Anisocytosis 1+ Sodium Level 144 mEQ/L (135-145) Potassium Level 4.1 mEQ/L (3.4-4.9) Chloride Level 100 mEQ/L (98-107) Carbon Dioxide Level 27 mEQ/L (20-30) Anion Gap 17 (5-15) Blood Urea Nitrogen 34 mg/dL (7-23) Creatinine 3.9 mg/dL (0.5-0.9) Estimat Glomerular Filtration Rate mL/min (>60) Glucose Level 121 mg/dL (74-106) Calcium Level 8.2 mg/dL (8.6-10.2) Test 02/07/17 03:30 02/07/17 05:00 02/07/17 09:16 02/07/17 12:57 Sodium Level 144 mEQ/L (135-145) Potassium Level 4.3 mEQ/L (3.4-4.9) Chloride Level 99 mEQ/L (98-107) Carbon Dioxide Level 22 mEQ/L (20-30) Anion Gap 23 (5-15) Blood Urea Nitrogen 53 mg/dL (7-23) Creatinine 4.7 mg/dL (0.5-0.9) Estimat Glomerular Filtration Rate mL/min (>60) Glucose Level 118 mg/dL (74-106) Calcium Level 8.7 mg/dL (8.6-10.2) Phosphorus Level 5.3 mg/dL (2.5-4.8) Magnesium Level 2.0 mg/dL (1.7-2.5) Total Bilirubin 11.8 mg/dL (0.0-1.2) Direct Bilirubin 8.9 mg/dL (0.1-0.3) Aspartate Amino Transf (AST/SGOT) 146 U/L (5-40) Alanine Aminotransferase (ALT/SGPT) 29 U/L (3-33) Alkaline Phosphatase 183 U/L (35-104) Total Protein 5.2 g/dL (6.6-8.7) Albumin 2.7 g/dL (3.5-5.2) Globulin 2.5 g/dL Albumin/Globulin Ratio 1.0 (1.0-2.7) Random Vancomycin Level 8.6 ug/mL White Blood Count 8.9 K/UL (4.8-10.8) Red Blood Count 3.91 M/UL (4.20-5.40) Hemoglobin 11.7 G/DL (12.0-16.0) Hematocrit 35.8 % (37.0-47.0) Mean Corpuscular Volume 91 FL (80-99) Mean Corpuscular Hemoglobin 29.9 PG (27.0-31.0) Mean Corpuscular Hemoglobin Concent 32.7 G/DL (32.0-36.0) Red Cell Distribution Width 15.6 % (11.6-14.8) Platelet Count 40 K/UL (150-450) Mean Platelet Volume 7.8 FL (6.5-10.1) Neutrophils (%) (Auto) % (45.0-75.0) Lymphocytes (%) (Auto) % (20.0-45.0) Monocytes (%) (Auto) % (1.0-10.0) Eosinophils (%) (Auto) % (0.0-3.0) Basophils (%) (Auto) % (0.0-2.0) Differential Total Cells Counted 100 Neutrophils % (Manual) 83 % (45-75) Lymphocytes % (Manual) 6 % (20-45) Monocytes % (Manual) 5 % (1-10) Eosinophils % (Manual) 0 % (0-3) Basophils % (Manual) 0 % (0-2) Band Neutrophils 6 % (0-8) Platelet Estimate Decreased Platelet Morphology Normal Hypochromasia 1+ Anisocytosis 1+ Arterial Blood pH 7.269 (7.350-7.450) 7.244 (7.350-7.450) Arterial Blood Partial Pressure CO2 50.2 mmHg (35.0-45.0) 58.9 mmHg (35.0-45.0) Arterial Blood Partial Pressure O2 66.1 mmHg (75.0-100.0) 64.0 mmHg (75.0-100.0) Arterial Blood HCO3 22.5 mmol/L (22.0-26.0) 24.9 mmol/L (22.0-26.0) Arterial Blood Oxygen Saturation 90.5 % (92.0-98.0) 75.2 % (92.0-98.0) Arterial Blood Base Excess -4.5 -2.9 Levy Test Positive Positive Test 02/07/17 16:46 02/07/17 18:15 02/08/17 04:00 02/08/17 07:55 Arterial Blood pH 7.267 (7.350-7.450) 7.299 (7.350-7.450) Arterial Blood Partial Pressure CO2 65.3 mmHg (35.0-45.0) 63.8 mmHg (35.0-45.0) Arterial Blood Partial Pressure O2 80.8 mmHg (75.0-100.0) 103.0 mmHg (75.0-100.0) Arterial Blood HCO3 29.1 mmol/L (22.0-26.0) 30.6 mmol/L (22.0-26.0) Arterial Blood Oxygen Saturation 93.9 % (92.0-98.0) 96.7 % (92.0-98.0) Arterial Blood Base Excess 1.2 3.4 Levy Test Positive Positive White Blood Count 22.0 K/UL (4.8-10.8) 17.5 K/UL (4.8-10.8) Red Blood Count 3.14 M/UL (4.20-5.40) 2.83 M/UL (4.20-5.40) Hemoglobin 10.1 G/DL (12.0-16.0) 8.7 G/DL (12.0-16.0) Hematocrit 28.4 % (37.0-47.0) 25.1 % (37.0-47.0) Mean Corpuscular Volume 90 FL (80-99) 89 FL (80-99) Mean Corpuscular Hemoglobin 32.1 PG (27.0-31.0) 30.8 PG (27.0-31.0) Mean Corpuscular Hemoglobin Concent 35.5 G/DL (32.0-36.0) 34.7 G/DL (32.0-36.0) Red Cell Distribution Width 16.6 % (11.6-14.8) 16.7 % (11.6-14.8) Platelet Count 39 K/UL (150-450) 34 K/UL (150-450) Mean Platelet Volume 10.5 FL (6.5-10.1) 8.4 FL (6.5-10.1) Neutrophils (%) (Auto) % (45.0-75.0) % (45.0-75.0) Lymphocytes (%) (Auto) % (20.0-45.0) % (20.0-45.0) Monocytes (%) (Auto) % (1.0-10.0) % (1.0-10.0) Eosinophils (%) (Auto) % (0.0-3.0) % (0.0-3.0) Basophils (%) (Auto) % (0.0-2.0) % (0.0-2.0) Differential Total Cells Counted 100 100 Neutrophils % (Manual) 84 % (45-75) 73 % (45-75) Lymphocytes % (Manual) 9 % (20-45) 13 % (20-45) Monocytes % (Manual) 4 % (1-10) 7 % (1-10) Eosinophils % (Manual) 0 % (0-3) 1 % (0-3) Basophils % (Manual) 0 % (0-2) 0 % (0-2) Band Neutrophils 3 % (0-8) 6 % (0-8) Nucleated Red Blood Cells 2 /100 WBC 2 /100 WBC Platelet Estimate Decreased Decreased Platelet Morphology Normal Normal Hypochromasia 1+ 1+ Anisocytosis 1+ 1+ Prothrombin Time 18.2 SEC (9.30-11.50) Prothromb Time International Ratio 1.8 (0.9-1.1) Activated Partial Thromboplast Time 37 SEC (23-33) Fibrinogen 184 mg/dL (200-400) D-Dimer 88673 ng/mL (<500) Reticulocyte Count 2.0 % (0.0-2.0) Sodium Level 145 mEQ/L (135-145) Potassium Level 3.9 mEQ/L (3.4-4.9) Chloride Level 99 mEQ/L (98-107) Carbon Dioxide Level 28 mEQ/L (20-30) Anion Gap 18 (5-15) Blood Urea Nitrogen 51 mg/dL (7-23) Creatinine 4.1 mg/dL (0.5-0.9) Estimat Glomerular Filtration Rate mL/min (>60) Glucose Level 97 mg/dL (74-106) Uric Acid 4.3 mg/dL (3.0-7.5) Calcium Level 8.4 mg/dL (8.6-10.2) Phosphorus Level 4.4 mg/dL (2.5-4.8) Magnesium Level 1.8 mg/dL (1.7-2.5) Total Bilirubin 3.4 mg/dL (0.0-1.2) Direct Bilirubin 2.2 mg/dL (0.1-0.3) Aspartate Amino Transf (AST/SGOT) 551 U/L (5-40) Alanine Aminotransferase (ALT/SGPT) 91 U/L (3-33) Alkaline Phosphatase 195 U/L (35-104) C-Reactive Protein, Quantitative 29.6 mg/dL (< 0.5) Pro-B-Type Natriuretic Peptide 42078 pg/mL (0-450) Total Protein 4.6 g/dL (6.6-8.7) Albumin 2.3 g/dL (3.5-5.2) Globulin 2.3 g/dL Albumin/Globulin Ratio 1.0 (1.0-2.7) Test 02/08/17 17:20 02/08/17 18:15 02/09/17 03:11 02/09/17 04:30 Haptoglobin < 29 mg/dL (30-200) Fibrinogen 313 mg/dL (200-400) Iron Level 166 ug/dL (37-145) Total Iron Binding Capacity 275 ug/dL (250-400) Percent Iron Saturation 60 % (15-50) Unsaturated Iron Binding 109 ug/dL (112-346) Total Bilirubin 1.5 mg/dL (0.0-1.2) Direct Bilirubin 0.9 mg/dL (0.1-0.3) Vitamin B12 Level 1385 pg/mL (211-946) HIV (1&2) Antibody Rapid Negative (NEGATIVE) Arterial Blood pH 7.212 (7.350-7.450) Arterial Blood Partial Pressure CO2 78.2 mmHg (35.0-45.0) Arterial Blood Partial Pressure O2 53.9 mmHg (75.0-100.0) Arterial Blood HCO3 30.7 mmol/L (22.0-26.0) Arterial Blood Oxygen Saturation 83.2 % (92.0-98.0) Arterial Blood Base Excess 2.0 Levy Test Positive Test 02/09/17 04:55 02/09/17 06:36 White Blood Count 17.7 K/UL (4.8-10.8) Red Blood Count 2.70 M/UL (4.20-5.40) Hemoglobin 8.2 G/DL (12.0-16.0) Hematocrit 24.6 % (37.0-47.0) Mean Corpuscular Volume 91 FL (80-99) Mean Corpuscular Hemoglobin 30.2 PG (27.0-31.0) Mean Corpuscular Hemoglobin Concent 33.1 G/DL (32.0-36.0) Red Cell Distribution Width 16.4 % (11.6-14.8) Platelet Count 27 K/UL (150-450) Mean Platelet Volume 9.4 FL (6.5-10.1) Neutrophils (%) (Auto) % (45.0-75.0) Lymphocytes (%) (Auto) % (20.0-45.0) Monocytes (%) (Auto) % (1.0-10.0) Eosinophils (%) (Auto) % (0.0-3.0) Basophils (%) (Auto) % (0.0-2.0) Sodium Level 143 mEQ/L (135-145) Potassium Level 4.4 mEQ/L (3.4-4.9) Chloride Level 97 mEQ/L (98-107) Carbon Dioxide Level 28 mEQ/L (20-30) Anion Gap 18 (5-15) Blood Urea Nitrogen 76 mg/dL (7-23) Creatinine 5.1 mg/dL (0.5-0.9) Estimat Glomerular Filtration Rate mL/min (>60) Glucose Level 168 mg/dL (74-106) Calcium Level 8.7 mg/dL (8.6-10.2) Phosphorus Level 2.0 mg/dL (2.5-4.8) Total Bilirubin 1.2 mg/dL (0.0-1.2) Direct Bilirubin 0.6 mg/dL (0.1-0.3) Aspartate Amino Transf (AST/SGOT) 164 U/L (5-40) Alanine Aminotransferase (ALT/SGPT) 95 U/L (3-33) Alkaline Phosphatase 269 U/L (35-104) C-Reactive Protein, Quantitative 33.9 mg/dL (< 0.5) Pro-B-Type Natriuretic Peptide 67030 pg/mL (0-450) Total Protein 4.8 g/dL (6.6-8.7) Albumin 2.2 g/dL (3.5-5.2) Globulin 2.6 g/dL Albumin/Globulin Ratio 0.8 (1.0-2.7) Arterial Blood pH 7.188 (7.350-7.450) Arterial Blood Partial Pressure CO2 68.4 mmHg (35.0-45.0) Arterial Blood Partial Pressure O2 < 64.0 mmHg (75.0-100.0) Arterial Blood HCO3 25.4 mmol/L (22.0-26.0) Arterial Blood Oxygen Saturation 63.9 % (92.0-98.0) Arterial Blood Base Excess -3.0 Levy Test Positive Objective: [facility]DWN chronically ill appearing; on the ventilator NAD coarse breath sounds bilaterally with rhonchi diffusely S1S2 IRRR without MRG; rate controlled NABS nontender no HSM; feeding tube in place no CC; some edema nonfocal poorly responsive skin noted pupils sluggish Accucheck: FELIPE OSORIO Feb 09, 2017 08:19
[2017-02-09] MEDS ORDERED: NS 275ml ONE (08:36)
[2017-02-09] MEDS ORDERED: Tubing Blood Filter IV ONE (08:36)
--- NOTE | 2017-02-09 08:42 | Diagnostic Imaging Report ---
Indications: Chest pain Technique: Portable AP chest Findings: Comparison: 02/08/2017 Diffuse bilateral mixed interstitial and alveolar lung opacities are unchanged. Underlying lung masses not excludable. Cardiomediastinal silhouette stable. Lines and tubes remain in place. No new abnormality identified. IMPRESSION: No change from one day prior
--- NOTE | 2017-02-09 08:45 | Diagnostic Imaging Report ---
Indication: Status post intubation Technique: XRAY CHEST 1 V Comparison: 02/06/17 Findings: Endotracheal tube is in satisfactory position. Orogastric tube is within the stomach. The heart and lungs are stable. Right internal jugular permacath is present. Impression: Satisfactory intubation and nasogastric tube placement.
--- NOTE | 2017-02-09 08:45 | Diagnostic Imaging Report ---
Indication: Shortness of breath Technique: XRAY CHEST 1 V Comparison: 02/07/17 Findings: Endotracheal and nasogastric tubes are again present. Right internal jugular permacath is present. Cardiomedial still silhouette is stable. Mixed bilateral interstitial and airspace edema/infiltrates are again noted. Osseous structures are stable. Impression: Satisfactory positioning of the endotracheal and nasogastric tubes. Grossly stable bilateral lung interstitial and airspace infiltrates/edema.
[2017-02-09] MEDS: Pantoprazole Inj IVP SCH ×2 (09:00→21:59)
[2017-02-09] MEDS: Renvela 800mg Pkt GT SCH ×2 (09:00→12:00)
[2017-02-09 09:39] LABS: BAND NEUTROPHILS % (MANUAL) 7 % (0-8); EOSINOPHILS % (MANUAL) 2 % (0-3); LYMPHOCYTES % (MANUAL) 16 % (20-45); NEUTROPHILS % (MANUAL) 71 % (45-75); TOTAL CELLS COUNTED 100
[2017-02-09 09:40] LABS: ANISOCYTOSIS 1+; BASOPHILS % (MANUAL) 0 % (0-2); HYPOCHROMASIA 1+; NUCLEATED RED BLOOD CELLS 2 /100 WBC; PLATELET ESTIMATE DECREASED; PLATELET MORPHOLOGY NORMAL
[2017-02-09] MEDS: Docusate 100mg tablet GT SCH ×3 (09:41→18:08)
[2017-02-09] MEDS: Analgesic Balm 15gm TOPIC SCH ×4 (09:42→21:59)
--- NOTE | 2017-02-09 11:17 | Infectious Diseases Prog Note ---
Assessment/Plan Assessment/Plan ASSESSMENT: 76 y/o female with: // Probable UTI - UCx(-) // Hypoxia, possible HCAP - CXR 02/02 : Extensive bilateral interstitial and airspace opacities, unchanged // h/o CoNS bacteremia 11/05 ( 01/09 ) ?real ( PICC tip+ ) vs contaminant r/o recurrence/persistence - surveillance BCx(-) // h/o right ankle cellulitis / osteomyelitis / hardware infection SP incomplete Rx ( recommended to complete 6 weeks IV daptomycin, cefepime ( end ), but daughter apparently declined at last discharge per documentation ) - SP hardware removal 12/15 - no culture sent - 3P bone scan: 3 phase increased activity in region of distal aspect of right fibula compatible with hardware loosening and/or osteomyelitis - XR: surgical hardware seen reducing old healed distal fibular and medial malleolar fractures. No acute fractures. No dislocations. Bones are demineralized. - elevated ESR, CRP - h/o right ankle ORIF // Probable sepsis,SP // Leukocytosis , // VDRF intubated 02/07 // ARF on CKD --> IHD per renal SP placement of tunneled right jugular hemodialysis catheter. 01/29 // Dementia // DM2 - HbA1c 6.1% // h/o CAD - trop(-) x1 // NH resident // VRE colonized // No ABX allergies // Full Code PLAN: - on Merrem d# 3 ( 02/07 SP DC Teflaro d# 10 ) ( 01/28 SP IV cefepime d# 10 IV Vanco d# 2 ) - monitor CBC, temperatures - monitor BMP - monitor CXR - respiratory support prn - Sputum CX Subjective Constitutional: Denies: anorexia, chills, drenching sweats, fatigue, fever, no symptoms, other Allergies: Coded Allergies: MORPHINE (Verified Adverse Reaction, Severe, PARADOXICAL REACTION, 10/08/12 ) Objective Vital Signs Last 24 Hour Vital Signs Date Time Temp Pulse Resp B/P Pulse Ox O2 Delivery O2 Flow Rate FiO2 02/09/17 11:00 97 20 110/40 89 Mechanical Ventilator 100 02/09/17 10:45 90 20 104/41 90 Mechanical Ventilator 100 02/09/17 10:30 95 20 87/65 87 Mechanical Ventilator 100 02/09/17 10:15 91 20 98/35 87 Mechanical Ventilator 100 02/09/17 10:00 95 21 77/28 90 Mechanical Ventilator 100 02/09/17 09:30 94 20 81/45 90 Mechanical Ventilator 100 02/09/17 09:15 71 20 109/31 90 Mechanical Ventilator 100 02/09/17 09:00 77 21 122/37 94 Mechanical Ventilator 100 02/09/17 09:00 66 81/45 02/09/17 09:00 73 29 100 02/09/17 08:50 Mechanical Ventilator 15.0 100 02/09/17 08:45 78 20 133/36 94 Mechanical Ventilator 100 02/09/17 08:30 100 02/09/17 08:30 90 20 90/40 90 Mechanical Ventilator 100 02/09/17 08:15 75/39 02/09/17 08:15 88 25 75/39 86 Mechanical Ventilator 100 02/09/17 08:00 100 02/09/17 08:00 97.6 90 27 115/48 91 Mechanical Ventilator 100 02/09/17 08:00 122/73 02/09/17 07:45 82 20 115/48 90 Mechanical Ventilator 100 02/09/17 07:30 83 20 96/32 92 Mechanical Ventilator 100 02/09/17 07:15 82 20 90/60 90 Mechanical Ventilator 100 02/09/17 07:00 86 20 83/43 90 Mechanical Ventilator 100 02/09/17 07:00 98 25 100 02/09/17 07:00 86/45 02/09/17 06:00 86 20 84/44 88 Mechanical Ventilator 100 02/09/17 05:06 90 23 100 02/09/17 05:00 101 20 89/33 88 Mechanical Ventilator 100 02/09/17 04:00 86 02/09/17 04:00 98.5 101 20 84/42 87 Mechanical Ventilator 100 02/09/17 04:00 100 02/09/17 03:30 101 20 84/33 89 Mechanical Ventilator 100 02/09/17 03:07 101 22 100 02/09/17 03:00 101 20 83/39 91 Mechanical Ventilator 100 02/09/17 02:30 77 20 80/30 95 Mechanical Ventilator 100 02/09/17 02:00 106 28 123/51 88 Mechanical Ventilator 100 02/09/17 01:30 83 28 135/41 97 Mechanical Ventilator 100 02/09/17 01:00 99 28 128/56 97 Mechanical Ventilator 100 02/09/17 00:58 110 25 100 02/09/17 00:00 98.6 98 26 133/42 98 Mechanical Ventilator 100 02/09/17 00:00 98 02/08/17 23:53 98.6 02/08/17 23:51 100 02/08/17 23:08 102 30 100 02/08/17 23:00 114 27 140/62 97 Mechanical Ventilator 100 02/08/17 22:00 102 29 107/21 95 Mechanical Ventilator 100 02/08/17 21:00 101 26 100/36 90 Mechanical Ventilator 80 02/08/17 21:00 101 02/08/17 21:00 100 02/08/17 20:58 103 29 100 02/08/17 20:00 90 02/08/17 20:00 80 02/08/17 20:00 90 26 130/39 97 Mechanical Ventilator 80 02/08/17 19:00 87 24 144/39 96 Mechanical Ventilator 80 02/08/17 18:42 88 29 80 02/08/17 18:01 92 24 128/98 96 Mechanical Ventilator 80 02/08/17 17:37 92 148/46 02/08/17 17:06 91 22 148/46 98 Mechanical Ventilator 80 02/08/17 16:52 96 26 80 02/08/17 16:00 89 02/08/17 16:00 98.1 114 21 106/45 98 Mechanical Ventilator 80 02/08/17 16:00 80 02/08/17 15:00 110 22 119/54 98 Mechanical Ventilator 80 02/08/17 14:56 113 32 80 02/08/17 14:00 105 26 105/39 96 Mechanical Ventilator 80 02/08/17 13:00 103 29 118/49 96 Mechanical Ventilator 90 02/08/17 12:41 83 29 80 02/08/17 12:00 98.4 102 19 111/42 100 Mechanical Ventilator 80 02/08/17 12:00 80 02/08/17 12:00 95 02/08/17 11:29 109 25 80 Height (Feet): 5 Height (Inches): 1.00 Weight (Pounds): 200 HEENT: atraumatic Respiratory/Chest: lungs clear Cardiovascular: normal rate Abdomen: soft, non tender Microbiology Date/Time Source Procedure Growth Status 02/07/17 17:00 Sputum Gram Stain - Final Resulted 02/07/17 17:00 Sputum Sputum Culture Pending Resulted Laboratory Tests Test 02/08/17 17:20 02/08/17 18:15 02/09/17 03:11 02/09/17 04:30 Haptoglobin < 29 mg/dL (30-200) L Fibrinogen 313 mg/dL (200-400) Iron Level 166 ug/dL (37-145) H Total Iron Binding Capacity 275 ug/dL (250-400) Percent Iron Saturation 60 % (15-50) H Unsaturated Iron Binding 109 ug/dL (112-346) L Total Bilirubin 1.5 mg/dL (0.0-1.2) H Direct Bilirubin 0.9 mg/dL (0.1-0.3) H Vitamin B12 Level 1385 pg/mL (211-946) H Folate Pending HIV (1&2) Antibody Rapid Negative (NEGATIVE) Stool Occult Blood Negative (NEGATIVE) Negative (NEGATIVE) Arterial Blood pH 7.212 (7.350-7.450) Arterial Blood Partial Pressure CO2 78.2 mmHg (35.0-45.0) *H Arterial Blood Partial Pressure O2 53.9 mmHg (75.0-100.0) L Arterial Blood HCO3 30.7 mmol/L (22.0-26.0) H Arterial Blood Oxygen Saturation 83.2 % (92.0-98.0) L Arterial Blood Base Excess 2.0 Levy Test Positive Test 02/09/17 04:55 02/09/17 06:36 White Blood Count 17.7 K/UL (4.8-10.8) H Red Blood Count 2.70 M/UL (4.20-5.40) L Hemoglobin 8.2 G/DL (12.0-16.0) L Hematocrit 24.6 % (37.0-47.0) L Mean Corpuscular Volume 91 FL (80-99) Mean Corpuscular Hemoglobin 30.2 PG (27.0-31.0) Mean Corpuscular Hemoglobin Concent 33.1 G/DL (32.0-36.0) Red Cell Distribution Width 16.4 % (11.6-14.8) H Platelet Count 27 K/UL (150-450) L Mean Platelet Volume 9.4 FL (6.5-10.1) Neutrophils (%) (Auto) % (45.0-75.0) Lymphocytes (%) (Auto) % (20.0-45.0) Monocytes (%) (Auto) % (1.0-10.0) Eosinophils (%) (Auto) % (0.0-3.0) Basophils (%) (Auto) % (0.0-2.0) Differential Total Cells Counted 100 Neutrophils % (Manual) 71 % (45-75) Lymphocytes % (Manual) 16 % (20-45) L Monocytes % (Manual) 4 % (1-10) Eosinophils % (Manual) 2 % (0-3) Basophils % (Manual) 0 % (0-2) Band Neutrophils 7 % (0-8) Nucleated Red Blood Cells 2 /100 WBC Platelet Estimate Decreased L Platelet Morphology Normal Hypochromasia 1+ Anisocytosis 1+ Sodium Level 143 mEQ/L (135-145) Potassium Level 4.4 mEQ/L (3.4-4.9) Chloride Level 97 mEQ/L (98-107) L Carbon Dioxide Level 28 mEQ/L (20-30) Anion Gap 18 (5-15) H Blood Urea Nitrogen 76 mg/dL (7-23) #H Creatinine 5.1 mg/dL (0.5-0.9) H Estimat Glomerular Filtration Rate mL/min (>60) Glucose Level 168 mg/dL (74-106) H Calcium Level 8.7 mg/dL (8.6-10.2) Phosphorus Level 2.0 mg/dL (2.5-4.8) L Total Bilirubin 1.2 mg/dL (0.0-1.2) Direct Bilirubin 0.6 mg/dL (0.1-0.3) H Aspartate Amino Transf (AST/SGOT) 164 U/L (5-40) H Alanine Aminotransferase (ALT/SGPT) 95 U/L (3-33) H Alkaline Phosphatase 269 U/L (35-104) H C-Reactive Protein, Quantitative 33.9 mg/dL (< 0.5) H Pro-B-Type Natriuretic Peptide 45190 pg/mL (0-450) H Total Protein 4.8 g/dL (6.6-8.7) L Albumin 2.2 g/dL (3.5-5.2) L Globulin 2.6 g/dL Albumin/Globulin Ratio 0.8 (1.0-2.7) L Arterial Blood pH 7.188 (7.350-7.450) Arterial Blood Partial Pressure CO2 68.4 mmHg (35.0-45.0) *H Arterial Blood Partial Pressure O2 < 64.0 mmHg (75.0-100.0) L Arterial Blood HCO3 25.4 mmol/L (22.0-26.0) Arterial Blood Oxygen Saturation 63.9 % (92.0-98.0) L Arterial Blood Base Excess -3.0 Levy Test Positive Current Medications Medications (Trade) Dose Ordered Sig/Rina Route PRN Reason Start Time Stop Time Status Last Admin Dose Admin Acetaminophen (Tylenol) 650 mg Q6H PRN ORAL Mild Pain/Temp > 100.5 02/07/17 17:00 03/09/17 16:59 Acetaminophen/ Hydrocodone Bitart (Flushing 5/325) 1 tab Q4H PRN GT Moderate Pain (Pain Scale 4-6) 02/07/17 17:00 02/14/17 16:59 02/08/17 23:01 Albuterol/ Ipratropium (DuoNeb 0.5-3(2.5)mg/3ml) 3 ml Q4H PRN HHN Shortness of Breath 02/07/17 17:00 02/12/17 16:59 Aluminum Hydroxide (Amphojel) 1,920 mg Q6HR GT 02/07/17 18:00 03/09/17 17:59 02/09/17 06:10 Amlodipine Besylate (Norvasc) 5 mg BID GT 02/07/17 18:00 03/09/17 17:59 02/08/17 17:37 Dextrose (Dextrose 50%) STAT PRN IV Hypoglycemia 02/07/17 17:00 03/09/17 16:59 Docusate Sodium (Colace) 100 mg TID GT 02/07/17 18:00 03/09/17 17:59 02/09/17 09:41 Insulin Aspart (NovoLOG) Q6HR SUBQ 02/07/17 18:00 03/09/17 17:59 02/09/17 06:11 Lorazepam 1 mg 1 mg Q1H PRN IV For Anxiety 02/07/17 22:30 02/14/17 22:29 Menthol/Methyl Salicylate (Bengay) 1 applic FOUR TIMES A DAY TOPIC 02/07/17 18:00 03/09/17 17:59 02/09/17 09:42 Meropenem/Sodium Chloride (Merrem/Sodium Chloride) 55 ml @ 110 mls/hr DAILY@1400 IVPB 02/08/17 14:00 02/13/17 13:59 02/08/17 14:35 Nitroglycerin (Ntg) 0.4 mg Q5M X 3 DOSES PRN SL Prn Chest Pain 02/07/17 16:00 03/09/17 15:59 Norepinephrine Bitartrate/ Dextrose (Levophed/D5W) 250 ml @ 0 mls/hr Q24H IV 02/09/17 07:00 03/11/17 06:59 02/09/17 07:00 Ondansetron HCl (Zofran) 4 mg Q6H PRN IVP Nausea & Vomiting 02/07/17 17:00 03/09/17 16:59 Pantoprazole (Protonix) 40 mg EVERY 12 HOURS IVP 02/07/17 21:00 03/09/17 20:59 02/08/17 20:44 Polyethylene Glycol (Miralax) 17 gm DAILYPRN PRN GT Constipation 02/07/17 17:00 03/09/17 16:59 Sevelamer Carbonate (Renvela) 1,600 mg THREE TIMES A DAY GT 02/07/17 18:00 03/09/17 17:59 02/08/17 17:38 GISELLA JEROME M.D. Feb 09, 2017 11:17
--- NOTE | 2017-02-09 13:04 | Nephrology Progress Note ---
Assessment/Plan Problem List: (1) Acute on chronic renal failure (2) Pneumonia (3) Respiratory failure with hypoxia (4) Anemia of chronic kidney failure (5) Sepsis Assessment low phos Plan was dialyzed Dc Jerson Owens next HD on 02/11 follow labs on pressors Dc Amlodipine Abxs Discussed with granddaughter Discussed with RN Subjective Subjective all noted Intubated Seen in ICU Objective Objective Last 24 Hour Vital Signs Date Time Temp Pulse Resp B/P Pulse Ox O2 Delivery O2 Flow Rate FiO2 02/09/17 12:40 84 31 100 02/09/17 11:50 Mechanical Ventilator 15.0 100 02/09/17 11:20 84 28 100 02/09/17 11:15 93 20 89/32 89 Mechanical Ventilator 100 02/09/17 11:00 97 20 110/40 89 Mechanical Ventilator 100 02/09/17 10:45 90 20 104/41 90 Mechanical Ventilator 100 02/09/17 10:30 95 20 87/65 87 Mechanical Ventilator 100 02/09/17 10:15 91 20 98/35 87 Mechanical Ventilator 100 02/09/17 10:00 95 21 77/28 90 Mechanical Ventilator 100 02/09/17 09:30 94 20 81/45 90 Mechanical Ventilator 100 02/09/17 09:15 71 20 109/31 90 Mechanical Ventilator 100 02/09/17 09:00 77 21 122/37 94 Mechanical Ventilator 100 02/09/17 09:00 66 81/45 02/09/17 09:00 73 29 100 02/09/17 08:50 Mechanical Ventilator 15.0 100 02/09/17 08:45 78 20 133/36 94 Mechanical Ventilator 100 02/09/17 08:30 100 02/09/17 08:30 90 20 90/40 90 Mechanical Ventilator 100 02/09/17 08:15 75/39 02/09/17 08:15 88 25 75/39 86 Mechanical Ventilator 100 02/09/17 08:00 100 02/09/17 08:00 97.6 90 27 115/48 91 Mechanical Ventilator 100 02/09/17 08:00 122/73 02/09/17 08:00 84 02/09/17 07:45 82 20 115/48 90 Mechanical Ventilator 100 02/09/17 07:30 83 20 96/32 92 Mechanical Ventilator 100 02/09/17 07:15 82 20 90/60 90 Mechanical Ventilator 100 02/09/17 07:00 86 20 83/43 90 Mechanical Ventilator 100 02/09/17 07:00 98 25 100 02/09/17 07:00 86/45 02/09/17 06:00 86 20 84/44 88 Mechanical Ventilator 100 02/09/17 05:06 90 23 100 02/09/17 05:00 101 20 89/33 88 Mechanical Ventilator 100 02/09/17 04:00 86 02/09/17 04:00 98.5 101 20 84/42 87 Mechanical Ventilator 100 02/09/17 04:00 100 02/09/17 03:30 101 20 84/33 89 Mechanical Ventilator 100 02/09/17 03:07 101 22 100 02/09/17 03:00 101 20 83/39 91 Mechanical Ventilator 100 02/09/17 02:30 77 20 80/30 95 Mechanical Ventilator 100 02/09/17 02:00 106 28 123/51 88 Mechanical Ventilator 100 02/09/17 01:30 83 28 135/41 97 Mechanical Ventilator 100 02/09/17 01:00 99 28 128/56 97 Mechanical Ventilator 100 02/09/17 00:58 110 25 100 02/09/17 00:00 98.6 98 26 133/42 98 Mechanical Ventilator 100 02/09/17 00:00 98 02/08/17 23:53 98.6 02/08/17 23:51 100 02/08/17 23:08 102 30 100 02/08/17 23:00 114 27 140/62 97 Mechanical Ventilator 100 02/08/17 22:00 102 29 107/21 95 Mechanical Ventilator 100 02/08/17 21:00 101 26 100/36 90 Mechanical Ventilator 80 02/08/17 21:00 101 02/08/17 21:00 100 02/08/17 20:58 103 29 100 02/08/17 20:00 90 02/08/17 20:00 80 02/08/17 20:00 90 26 130/39 97 Mechanical Ventilator 80 02/08/17 19:00 87 24 144/39 96 Mechanical Ventilator 80 02/08/17 18:42 88 29 80 02/08/17 18:01 92 24 128/98 96 Mechanical Ventilator 80 02/08/17 17:37 92 148/46 02/08/17 17:06 91 22 148/46 98 Mechanical Ventilator 80 02/08/17 16:52 96 26 80 02/08/17 16:00 89 02/08/17 16:00 98.1 114 21 106/45 98 Mechanical Ventilator 80 02/08/17 16:00 80 02/08/17 15:00 110 22 119/54 98 Mechanical Ventilator 80 02/08/17 14:56 113 32 80 02/08/17 14:00 105 26 105/39 96 Mechanical Ventilator 80 Intake and Output 02/08/17 02/09/17 19:00 07:00 Intake Total 835 ml 470 ml Output Total 0 ml 0 ml Balance 835 ml 470 ml Free Water 20 ml 20 ml IV Total 55 ml Tube Feeding 420 ml 420 ml Blood Product 250 ml Other 90 ml 30 ml Output Urine Total 0 ml 0 ml # Bowel Movements 1 Laboratory Tests 02/08/17 17:20: Haptoglobin < 29L, Fibrinogen 313, Iron Level 166H, Total Iron Binding Capacity 275, Percent Iron Saturation 60H, Unsaturated Iron Binding 109L, Total Bilirubin 1.5H, Direct Bilirubin 0.9H, Vitamin B12 Level 1385H, Folate [Pending] , HIV (1&2) Antibody Rapid Negative 02/08/17 18:15: Stool Occult Blood Negative 02/09/17 03:11: Arterial Blood pH 7.212*L, Arterial Blood Partial Pressure CO2 78.2*H, Arterial Blood Partial Pressure O2 53.9L, Arterial Blood HCO3 30.7H, Arterial Blood Oxygen Saturation 83.2L, Arterial Blood Base Excess 2.0, Levy Test Positive 02/09/17 04:30: Stool Occult Blood Negative 02/09/17 04:55: White Blood Count 17.7H, Red Blood Count 2.70L, Hemoglobin 8.2L, Hematocrit 24.6L, Mean Corpuscular Volume 91, Mean Corpuscular Hemoglobin 30.2, Mean Corpuscular Hemoglobin Concent 33.1, Red Cell Distribution Width 16.4H, Platelet Count 27L, Mean Platelet Volume 9.4, Neutrophils (%) (Auto) , Lymphocytes (%) (Auto) , Monocytes (%) (Auto) , Eosinophils (%) (Auto) , Basophils (%) (Auto) , Differential Total Cells Counted 100, Neutrophils % ( Manual) 71, Lymphocytes % (Manual) 16L, Monocytes % (Manual) 4, Eosinophils % ( Manual) 2, Basophils % (Manual) 0, Band Neutrophils 7, Nucleated Red Blood Cells 2, Platelet Estimate DecreasedL, Platelet Morphology Normal, Hypochromasia 1+, Anisocytosis 1+, Sodium Level 143, Potassium Level 4.4, Chloride Level 97L, Carbon Dioxide Level 28, Anion Gap 18H, Blood Urea Nitrogen 76#H, Creatinine 5.1H, Estimat Glomerular Filtration Rate , Glucose Level 168H, Calcium Level 8.7, Phosphorus Level 2.0L, Total Bilirubin 1.2, Direct Bilirubin 0.6H, Aspartate Amino Transf (AST/SGOT) 164H, Alanine Aminotransferase (ALT/SGPT ) 95H, Alkaline Phosphatase 269H, C-Reactive Protein, Quantitative 33.9H, Pro-B- Type Natriuretic Peptide 43595T, Total Protein 4.8L, Albumin 2.2L, Globulin 2.6 , Albumin/Globulin Ratio 0.8L 02/09/17 06:36: Arterial Blood pH 7.188*L, Arterial Blood Partial Pressure CO2 68.4*H, Arterial Blood Partial Pressure O2 < 64.0L, Arterial Blood HCO3 25.4, Arterial Blood Oxygen Saturation 63.9L, Arterial Blood Base Excess -3.0, Levy Test Positive Height (Feet): 5 Height (Inches): 1.00 Weight (Pounds): 200 Cardiovascular: tachycardia Respiratory/Chest: rhonchi - bilaterally Extremities: moderate edema EDY GUARDADO Feb 09, 2017 13:04
[2017-02-09] MEDS: Meropenem 500 MG in NS 55 ML IVPB SCH (14:26)
[2017-02-09] MEDS ORDERED: Zemuron 50mg/5ml Inj IV ONE (15:10)
[2017-02-09] MEDS ORDERED: Etomidate 40mg/20ml Inj IV ONE (15:10)
[2017-02-09] MEDS ORDERED: Succinylcholine 20mg/ml 10ml vial ONE (15:10)
--- NOTE | 2017-02-09 17:25 | General Progress Note ---
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 bilateral right greater than left pleural effusions and Mediastinal lymphadenopathy - she is a poor candidate for biopsy and has a poor prognosis # Anemia 2/2 chronic disease - s/p multiple units of blood # Leukocytosis - related to sepsis and underlying infection, is on antibiotics # Respiratory failure s/p intubation # Respiratory acidosis # Renal failure # ALOC # Sepsis Recs: - Transfuse to hgb goal >7, plt goal >20k if bleeding - She has DIC at this time - She is off heparin, plavix, aspirin - Agree to administer FFP if INR >2 - Does not require a biopsy as has poor prognosis and poor outcome at this time - NG feeds at maximal rate - Appreciate consultation!! continue to follow Subjective Constitutional: Denies: chills, diaphoresis, fever, malaise, no symptoms, other , weakness HEENT: Denies: blurred vision, double vision, ear discharge, ear pain, eye pain , mouth pain, mouth swelling, no symptoms, nose congestion, nose pain, other, tearing, throat pain, throat swelling Cardiovascular: Denies: chest pain, edema, irregular heart rate, lightheadedness, no symptoms, other, palpitations, syncope Respiratory: Denies: SOB at rest, SOB with excertion, cough, no symptoms, orthopnea, other, shortness of breath, sputum, stridor, wheezing Gastrointestinal/Abdominal: Denies: abdomen distended, abdominal pain, black stools, blood in stool, constipated, diarrhea, difficulty swallowing, nausea, no symptoms, other, poor appetite, poor fluid intake, rectal bleeding, tarry stools, vomiting Genitourinary: Denies: burning, discharge, flank pain, frequency, hematuria, incontinence, no symptoms, other, pain, urgency 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: Denies: anxiety, depressed, emotional problems, headache, no symptoms, numbness, other, paresthesia, pre-existing deficit, seizure, tingling, tremors, weakness Endocrine: Denies: excessive sweating, flushing, increased hunger, increased thirst, increased urine, intolerance to cold, intolerance to heat, no symptoms, other, unexplained weight gain, unexplained weight loss Allergies: Coded Allergies: MORPHINE (Verified Adverse Reaction, Severe, PARADOXICAL REACTION, 10/08/12 ) Subjective to be transfused with platelets today Objective Last 24 Hour Vital Signs Date Time Temp Pulse Resp B/P Pulse Ox O2 Delivery O2 Flow Rate FiO2 02/09/17 16:30 86 28 119/30 86 Mechanical Ventilator 100 02/09/17 16:15 110 33 103/42 85 Mechanical Ventilator 100 02/09/17 16:00 100 02/09/17 16:00 89 02/09/17 16:00 99.2 114 34 130/45 85 Mechanical Ventilator 100 02/09/17 16:00 140/40 02/09/17 15:45 88 33 140/40 88 Mechanical Ventilator 100 02/09/17 15:30 89 32 130/31 89 Mechanical Ventilator 100 02/09/17 15:15 89 31 145/40 87 Mechanical Ventilator 100 02/09/17 15:10 88 29 100 02/09/17 15:00 146/36 02/09/17 15:00 88 30 146/59 88 Mechanical Ventilator 100 02/09/17 14:45 114 34 127/45 86 Mechanical Ventilator 100 02/09/17 14:30 109 31 127/37 86 Mechanical Ventilator 100 02/09/17 14:30 127/37 02/09/17 14:27 99/31 02/09/17 14:15 109 34 99/31 87 Mechanical Ventilator 100 02/09/17 14:00 110 31 129/40 87 Mechanical Ventilator 100 02/09/17 13:45 98 31 131/59 90 Mechanical Ventilator 100 02/09/17 13:30 99 31 101/52 90 Mechanical Ventilator 100 02/09/17 13:15 92 31 97/44 90 Mechanical Ventilator 100 02/09/17 13:00 91 29 104/33 89 Mechanical Ventilator 100 02/09/17 12:45 96 28 107/36 87 Mechanical Ventilator 100 02/09/17 12:40 84 31 100 02/09/17 12:30 94 28 101/29 86 Mechanical Ventilator 100 02/09/17 12:15 92 28 87/50 88 Mechanical Ventilator 100 02/09/17 12:00 95 28 108/33 88 Mechanical Ventilator 100 02/09/17 12:00 94 02/09/17 12:00 108/33 02/09/17 12:00 100 02/09/17 11:50 Mechanical Ventilator 15.0 100 02/09/17 11:45 91 29 98/47 89 Mechanical Ventilator 100 02/09/17 11:30 93 27 105/38 86 Mechanical Ventilator 100 02/09/17 11:20 84 28 100 02/09/17 11:15 93 20 89/32 89 Mechanical Ventilator 100 02/09/17 11:00 97 20 110/40 89 Mechanical Ventilator 100 02/09/17 11:00 110/40 02/09/17 10:45 90 20 104/41 90 Mechanical Ventilator 100 02/09/17 10:30 95 20 87/65 87 Mechanical Ventilator 100 02/09/17 10:15 91 20 98/35 87 Mechanical Ventilator 100 02/09/17 10:00 95 21 77/28 90 Mechanical Ventilator 100 02/09/17 10:00 87/65 02/09/17 09:30 94 20 81/45 90 Mechanical Ventilator 100 02/09/17 09:15 71 20 109/31 90 Mechanical Ventilator 100 02/09/17 09:00 77 21 122/37 94 Mechanical Ventilator 100 02/09/17 09:00 66 81/45 02/09/17 09:00 73 29 100 02/09/17 08:50 Mechanical Ventilator 15.0 100 02/09/17 08:45 78 20 133/36 94 Mechanical Ventilator 100 02/09/17 08:30 100 02/09/17 08:30 90 20 90/40 90 Mechanical Ventilator 100 02/09/17 08:15 75/39 02/09/17 08:15 88 25 75/39 86 Mechanical Ventilator 100 02/09/17 08:00 100 02/09/17 08:00 97.6 90 27 115/48 91 Mechanical Ventilator 100 02/09/17 08:00 122/73 02/09/17 08:00 84 02/09/17 07:45 82 20 115/48 90 Mechanical Ventilator 100 02/09/17 07:30 83 20 96/32 92 Mechanical Ventilator 100 02/09/17 07:15 82 20 90/60 90 Mechanical Ventilator 100 02/09/17 07:00 86 20 83/43 90 Mechanical Ventilator 100 02/09/17 07:00 98 25 100 02/09/17 07:00 86/45 02/09/17 06:00 86 20 84/44 88 Mechanical Ventilator 100 02/09/17 05:06 90 23 100 02/09/17 05:00 101 20 89/33 88 Mechanical Ventilator 100 02/09/17 04:00 86 02/09/17 04:00 98.5 101 20 84/42 87 Mechanical Ventilator 100 02/09/17 04:00 100 02/09/17 03:30 101 20 84/33 89 Mechanical Ventilator 100 02/09/17 03:07 101 22 100 02/09/17 03:00 101 20 83/39 91 Mechanical Ventilator 100 02/09/17 02:30 77 20 80/30 95 Mechanical Ventilator 100 02/09/17 02:00 106 28 123/51 88 Mechanical Ventilator 100 02/09/17 01:30 83 28 135/41 97 Mechanical Ventilator 100 02/09/17 01:00 99 28 128/56 97 Mechanical Ventilator 100 02/09/17 00:58 110 25 100 02/09/17 00:00 98.6 98 26 133/42 98 Mechanical Ventilator 100 02/09/17 00:00 98 02/08/17 23:53 98.6 02/08/17 23:51 100 02/08/17 23:08 102 30 100 02/08/17 23:00 114 27 140/62 97 Mechanical Ventilator 100 02/08/17 22:00 102 29 107/21 95 Mechanical Ventilator 100 02/08/17 21:00 101 26 100/36 90 Mechanical Ventilator 80 02/08/17 21:00 101 02/08/17 21:00 100 02/08/17 20:58 103 29 100 02/08/17 20:00 90 02/08/17 20:00 80 02/08/17 20:00 90 26 130/39 97 Mechanical Ventilator 80 02/08/17 19:00 87 24 144/39 96 Mechanical Ventilator 80 02/08/17 18:42 88 29 80 02/08/17 18:01 92 24 128/98 96 Mechanical Ventilator 80 02/08/17 17:37 92 148/46 Intake and Output 02/08/17 02/09/17 19:00 07:00 Intake Total 835 ml 470 ml Output Total 0 ml 0 ml Balance 835 ml 470 ml Free Water 20 ml 20 ml IV Total 55 ml Tube Feeding 420 ml 420 ml Blood Product 250 ml Other 90 ml 30 ml Output Urine Total 0 ml 0 ml # Bowel Movements 1 Laboratory Tests 02/08/17 18:15: Stool Occult Blood Negative 02/09/17 03:11: Arterial Blood pH 7.212*L, Arterial Blood Partial Pressure CO2 78.2*H, Arterial Blood Partial Pressure O2 53.9L, Arterial Blood HCO3 30.7H, Arterial Blood Oxygen Saturation 83.2L, Arterial Blood Base Excess 2.0, Levy Test Positive 02/09/17 04:30: Stool Occult Blood Negative 02/09/17 04:55: White Blood Count 17.7H, Red Blood Count 2.70L, Hemoglobin 8.2L, Hematocrit 24.6L, Mean Corpuscular Volume 91, Mean Corpuscular Hemoglobin 30.2, Mean Corpuscular Hemoglobin Concent 33.1, Red Cell Distribution Width 16.4H, Platelet Count 27L, Mean Platelet Volume 9.4, Neutrophils (%) (Auto) , Lymphocytes (%) (Auto) , Monocytes (%) (Auto) , Eosinophils (%) (Auto) , Basophils (%) (Auto) , Differential Total Cells Counted 100, Neutrophils % ( Manual) 71, Lymphocytes % (Manual) 16L, Monocytes % (Manual) 4, Eosinophils % ( Manual) 2, Basophils % (Manual) 0, Band Neutrophils 7, Nucleated Red Blood Cells 2, Platelet Estimate DecreasedL, Platelet Morphology Normal, Hypochromasia 1+, Anisocytosis 1+, Sodium Level 143, Potassium Level 4.4, Chloride Level 97L, Carbon Dioxide Level 28, Anion Gap 18H, Blood Urea Nitrogen 76#H, Creatinine 5.1H, Estimat Glomerular Filtration Rate , Glucose Level 168H, Calcium Level 8.7, Phosphorus Level 2.0L, Total Bilirubin 1.2, Direct Bilirubin 0.6H, Aspartate Amino Transf (AST/SGOT) 164H, Alanine Aminotransferase (ALT/SGPT ) 95H, Alkaline Phosphatase 269H, C-Reactive Protein, Quantitative 33.9H, Pro-B- Type Natriuretic Peptide 56514M, Total Protein 4.8L, Albumin 2.2L, Globulin 2.6 , Albumin/Globulin Ratio 0.8L 02/09/17 06:36: Arterial Blood pH 7.188*L, Arterial Blood Partial Pressure CO2 68.4*H, Arterial Blood Partial Pressure O2 < 64.0L, Arterial Blood HCO3 25.4, Arterial Blood Oxygen Saturation 63.9L, Arterial Blood Base Excess -3.0, Levy Test Positive Height (Feet): 5 Height (Inches): 1.00 Weight (Pounds): 200 General Appearance: no apparent distress EENT: TMs normal Neck: supple Cardiovascular: regular rhythm Respiratory/Chest: no respiratory distress Abdomen: no organomegaly Extremities: normal inspection Edema: 1+ Leg (L), 1+ Leg (R) Edema: mild edema Neurologic: responsive Skin: warm/dry Mariano Ortiz Feb 09, 2017 17:25
[2017-02-10] VITALS (90 sets, daily range): BP systolic 16–133; BP diastolic 29–112
--- NOTE | 2017-02-10 01:18 | Progress Note ---
DATE: 02/09/2017 CARDIOLOGY PROGRESS NOTE: SUBJECTIVE: The patient's condition remains critical. Prognosis guarded. She remains in the intensive care unit. She is on full ventilator support. Orally intubated. She is off anti-platelet therapy. She is requiring FFP and platelets at times. She continues with marginal blood pressure, requiring pressors episodically. Monitored rhythm. Atrial fibrillation, rate controlled. OBJECTIVE: VITAL SIGNS: Blood pressure is 96/32, pulse rate 83, and respiratory rate 20. CHEST: Bilateral breath sounds. Rhonchi. HEART: Irregularly irregular rhythm. Normal S1 and S2. ABDOMEN: Obese and soft. EXTREMITIES: With 1+ dependent edema. LABORATORY DATA: White count is 17.7, hemoglobin 8.2, and platelets 27,000. ABG, pH is 7.18, pO2 68, and pCO2 64. Sodium is 143, potassium 4.4, bicarbonate 28, BUN 76, and creatinine 5.1. Pro-natriuretic peptide is 52,000. Albumin is 2.2. IMPRESSION: 1. Multiorgan system failure. 2. Disseminated intravascular coagulation. 3. Sepsis with shock. 4. Acute renal failure. 5. Acute on chronic diastolic congestive heart failure, probable acute respiratory distress syndrome. CONDITION: Critical. PROGNOSIS: Grave. PLAN: Blood products as needed. Dialysis with ultrafiltration as able. Pressor support with taper, when able. Continue full ventilator support. Joss Rush M.D. DR: Isabel JOB#: [id number] CC:
[2017-02-10] MEDS: NovoLOG Insulin Flexpen SUBQ SCH ×4 (06:00→17:52)
--- NOTE | 2017-02-10 07:40 | Critical Care Progress Note ---
Assessment/Plan Assessment/Plan hypoxemia respiratory failure respiratory acidosis pulmonary infiltrates thrombocytopenia renal failure ALOC chronic encephalopathy sepsis leukocytosis pulmonary infiltrates ARDS likely DIC likely s/p transfusion atrial fibrillation hypotension shock PLAN off heparin, plavix, aspirin FFP and platelets as needed heme evaluation noted follow up labs cards evaluation; afib controlled levophed as needed rate control may need additional transfusion pending follow up at risk for bleeding monitor renal function on HD as able continue to UF antibiotics noted taper fio2 as able hyperventilate follow up abg prognosis poor; NG feeds follow up chest xr and labs for changes updated son daily and discussed code status medications/laboratory data/nursing notes/ICU care reviewed in detail note reviewed and edited care discussed with RN and RT ICU time spent 40 minutes Critical Care - Subjective Interval Events: long d/w family x 20 minutes prognosis discussed explained MOF and likelyhood of recovery poor ROS Limited/Unobtainable: Yes Condition: critical EKG Rhythm: Atrial Fibrillation Residuals: minimal Tube Feeding Tolerated: yes I&O: Intake and Output 02/09/17 02/10/17 19:00 07:00 Intake Total 806.3875 ml 588.75 ml Output Total 1500 ml 0 ml Balance -693.6125 ml 588.75 ml Free Water 40 ml IV Total 336.3875 ml 168.75 ml Tube Feeding 420 ml 420 ml Other 10 ml Output Urine Total 0 ml 0 ml Hemodialysis UF 1500 ml Critical Care - Objective ET-Tube: 7.0 ET Position: 22 Last 24 Hour Vital Signs Date Time Temp Pulse Resp B/P Pulse Ox O2 Delivery O2 Flow Rate FiO2 02/10/17 07:13 82 32 100 02/10/17 07:00 110/47 02/10/17 06:55 101 26 130/106 86 Mechanical Ventilator 100 02/10/17 06:45 103 23 112/44 84 Mechanical Ventilator 100 02/10/17 06:15 112 33 112/44 91 Mechanical Ventilator 100 02/10/17 06:00 112/44 02/10/17 06:00 102 33 112/44 91 Mechanical Ventilator 100 02/10/17 05:45 100 33 101/31 91 Mechanical Ventilator 100 02/10/17 05:30 102 33 116/37 91 Mechanical Ventilator 100 02/10/17 05:28 85 35 100 02/10/17 05:15 97 33 115/48 91 Mechanical Ventilator 100 02/10/17 05:00 107 33 131/112 91 Mechanical Ventilator 100 02/10/17 05:00 131/112 02/10/17 04:45 82 33 114/83 91 Mechanical Ventilator 100 02/10/17 04:30 96 33 96/46 91 Mechanical Ventilator 100 02/10/17 04:15 95 32 96/46 92 Mechanical Ventilator 100 02/10/17 04:00 97 02/10/17 04:00 100 02/10/17 04:00 97/53 02/10/17 04:00 99 33 111/48 90 Mechanical Ventilator 100 02/10/17 03:45 99 32 106/58 91 Mechanical Ventilator 100 02/10/17 03:30 83 32 112/38 91 Mechanical Ventilator 100 02/10/17 03:22 109 35 100 02/10/17 03:15 104 32 118/44 89 Mechanical Ventilator 100 02/10/17 03:00 118/48 02/10/17 03:00 116 33 111/48 90 Mechanical Ventilator 100 02/10/17 02:45 110 33 121/40 90 Mechanical Ventilator 100 02/10/17 02:30 103 33 121/41 90 Mechanical Ventilator 100 02/10/17 02:15 101 33 121/41 90 Mechanical Ventilator 100 02/10/17 02:00 86 33 106/59 90 Mechanical Ventilator 100 02/10/17 02:00 98/68 02/10/17 01:45 85 33 98/68 90 Mechanical Ventilator 100 02/10/17 01:30 106 33 123/54 90 Mechanical Ventilator 100 02/10/17 01:15 101 32 102/66 90 Mechanical Ventilator 100 02/10/17 01:00 86 32 101/63 91 Mechanical Ventilator 100 02/10/17 01:00 101/63 02/10/17 00:52 85 35 100 02/10/17 00:00 87 33 129/40 90 Mechanical Ventilator 100 02/10/17 00:00 100 02/10/17 00:00 115 02/10/17 00:00 129/40 02/09/17 23:45 104 33 118/54 89 Mechanical Ventilator 100 02/09/17 23:30 105 31 102/53 92 Mechanical Ventilator 100 02/09/17 23:24 89 31 100 02/09/17 23:15 87 28 120/38 92 Mechanical Ventilator 100 02/09/17 23:00 87 28 147/60 91 Mechanical Ventilator 100 02/09/17 23:00 102/53 02/09/17 22:45 101 29 119/44 92 Mechanical Ventilator 100 02/09/17 22:30 106 23 119/44 93 Mechanical Ventilator 100 02/09/17 22:15 84 27 121/50 96 Mechanical Ventilator 100 02/09/17 22:00 105 28 115/71 94 Mechanical Ventilator 100 02/09/17 22:00 115/71 02/09/17 21:45 101 27 86/38 94 Mechanical Ventilator 100 02/09/17 21:30 97 27 86/33 93 Mechanical Ventilator 100 02/09/17 21:15 100 27 90/52 92 Mechanical Ventilator 100 02/09/17 21:00 123 28 99/52 94 Mechanical Ventilator 100 02/09/17 21:00 93/31 02/09/17 20:45 91 28 99/59 93 Mechanical Ventilator 100 02/09/17 20:43 115 30 100 02/09/17 20:30 85 28 113/34 92 Mechanical Ventilator 100 02/09/17 20:15 99 29 102/45 90 Mechanical Ventilator 100 02/09/17 20:00 100 02/09/17 20:00 104 02/09/17 20:00 107/42 02/09/17 20:00 96.8 104 29 107/42 90 Mechanical Ventilator 100 02/09/17 19:45 102 27 114/42 93 Mechanical Ventilator 100 02/09/17 19:30 106 27 121/75 93 Mechanical Ventilator 100 02/09/17 19:15 105 27 92/37 94 Mechanical Ventilator 100 02/09/17 19:00 87 26 115/76 95 Mechanical Ventilator 100 02/09/17 18:45 88 32 105/41 91 Mechanical Ventilator 100 02/09/17 18:44 89 33 100 02/09/17 18:30 110 28 84/34 88 Mechanical Ventilator 100 02/09/17 18:15 110 34 105/88 89 Mechanical Ventilator 100 02/09/17 18:00 110/35 02/09/17 18:00 110 33 111/35 88 Mechanical Ventilator 100 02/09/17 17:45 110 30 107/37 88 Mechanical Ventilator 100 02/09/17 17:30 110 34 96/45 88 Mechanical Ventilator 100 02/09/17 17:28 105 30 100 02/09/17 17:15 103 30 83/55 87 Mechanical Ventilator 100 02/09/17 17:00 102 31 88/34 87 Mechanical Ventilator 100 02/09/17 17:00 88/34 02/09/17 16:45 103 31 86/52 86 Mechanical Ventilator 100 02/09/17 16:30 86 28 119/30 86 Mechanical Ventilator 100 02/09/17 16:15 110 33 103/42 85 Mechanical Ventilator 100 02/09/17 16:00 100 02/09/17 16:00 89 02/09/17 16:00 99.2 114 34 130/45 85 Mechanical Ventilator 100 02/09/17 16:00 140/40 02/09/17 15:45 88 33 140/40 88 Mechanical Ventilator 100 02/09/17 15:30 89 32 130/31 89 Mechanical Ventilator 100 02/09/17 15:15 89 31 145/40 87 Mechanical Ventilator 100 02/09/17 15:10 88 29 100 02/09/17 15:00 146/36 02/09/17 15:00 88 30 146/59 88 Mechanical Ventilator 100 02/09/17 14:45 114 34 127/45 86 Mechanical Ventilator 100 02/09/17 14:30 109 31 127/37 86 Mechanical Ventilator 100 02/09/17 14:30 127/37 02/09/17 14:27 99/31 02/09/17 14:15 109 34 99/31 87 Mechanical Ventilator 100 02/09/17 14:00 110 31 129/40 87 Mechanical Ventilator 100 02/09/17 13:45 98 31 131/59 90 Mechanical Ventilator 100 02/09/17 13:30 99 31 101/52 90 Mechanical Ventilator 100 02/09/17 13:15 92 31 97/44 90 Mechanical Ventilator 100 02/09/17 13:00 91 29 104/33 89 Mechanical Ventilator 100 02/09/17 12:45 96 28 107/36 87 Mechanical Ventilator 100 02/09/17 12:40 84 31 100 02/09/17 12:30 94 28 101/29 86 Mechanical Ventilator 100 02/09/17 12:15 92 28 87/50 88 Mechanical Ventilator 100 02/09/17 12:00 95 28 108/33 88 Mechanical Ventilator 100 02/09/17 12:00 94 02/09/17 12:00 108/33 02/09/17 12:00 100 02/09/17 11:50 Mechanical Ventilator 15.0 100 02/09/17 11:45 91 29 98/47 89 Mechanical Ventilator 100 02/09/17 11:30 93 27 105/38 86 Mechanical Ventilator 100 02/09/17 11:20 84 28 100 02/09/17 11:15 93 20 89/32 89 Mechanical Ventilator 100 02/09/17 11:00 97 20 110/40 89 Mechanical Ventilator 100 02/09/17 11:00 110/40 02/09/17 10:45 90 20 104/41 90 Mechanical Ventilator 100 02/09/17 10:30 95 20 87/65 87 Mechanical Ventilator 100 02/09/17 10:15 91 20 98/35 87 Mechanical Ventilator 100 02/09/17 10:00 95 21 77/28 90 Mechanical Ventilator 100 02/09/17 10:00 87/65 02/09/17 09:30 94 20 81/45 90 Mechanical Ventilator 100 02/09/17 09:15 71 20 109/31 90 Mechanical Ventilator 100 02/09/17 09:00 77 21 122/37 94 Mechanical Ventilator 100 02/09/17 09:00 66 81/45 02/09/17 09:00 73 29 100 02/09/17 08:50 Mechanical Ventilator 15.0 100 02/09/17 08:45 78 20 133/36 94 Mechanical Ventilator 100 02/09/17 08:30 100 02/09/17 08:30 90 20 90/40 90 Mechanical Ventilator 100 02/09/17 08:15 75/39 02/09/17 08:15 88 25 75/39 86 Mechanical Ventilator 100 02/09/17 08:00 100 02/09/17 08:00 97.6 90 27 115/48 91 Mechanical Ventilator 100 02/09/17 08:00 122/73 02/09/17 08:00 84 02/09/17 07:45 82 20 115/48 90 Mechanical Ventilator 100 Labs: Labs Test 02/07/17 09:16 02/07/17 12:57 02/07/17 16:46 02/07/17 18:15 Arterial Blood pH 7.269 (7.350-7.450) 7.244 (7.350-7.450) 7.267 (7.350-7.450) Arterial Blood Partial Pressure CO2 50.2 mmHg (35.0-45.0) 58.9 mmHg (35.0-45.0) 65.3 mmHg (35.0-45.0) Arterial Blood Partial Pressure O2 66.1 mmHg (75.0-100.0) 64.0 mmHg (75.0-100.0) 80.8 mmHg (75.0-100.0) Arterial Blood HCO3 22.5 mmol/L (22.0-26.0) 24.9 mmol/L (22.0-26.0) 29.1 mmol/L (22.0-26.0) Arterial Blood Oxygen Saturation 90.5 % (92.0-98.0) 75.2 % (92.0-98.0) 93.9 % (92.0-98.0) Arterial Blood Base Excess -4.5 -2.9 1.2 Levy Test Positive Positive Positive White Blood Count 22.0 K/UL (4.8-10.8) Red Blood Count 3.14 M/UL (4.20-5.40) Hemoglobin 10.1 G/DL (12.0-16.0) Hematocrit 28.4 % (37.0-47.0) Mean Corpuscular Volume 90 FL (80-99) Mean Corpuscular Hemoglobin 32.1 PG (27.0-31.0) Mean Corpuscular Hemoglobin Concent 35.5 G/DL (32.0-36.0) Red Cell Distribution Width 16.6 % (11.6-14.8) Platelet Count 39 K/UL (150-450) Mean Platelet Volume 10.5 FL (6.5-10.1) Neutrophils (%) (Auto) % (45.0-75.0) Lymphocytes (%) (Auto) % (20.0-45.0) Monocytes (%) (Auto) % (1.0-10.0) Eosinophils (%) (Auto) % (0.0-3.0) Basophils (%) (Auto) % (0.0-2.0) Differential Total Cells Counted 100 Neutrophils % (Manual) 84 % (45-75) Lymphocytes % (Manual) 9 % (20-45) Monocytes % (Manual) 4 % (1-10) Eosinophils % (Manual) 0 % (0-3) Basophils % (Manual) 0 % (0-2) Band Neutrophils 3 % (0-8) Nucleated Red Blood Cells 2 /100 WBC Platelet Estimate Decreased Platelet Morphology Normal Hypochromasia 1+ Anisocytosis 1+ Prothrombin Time 18.2 SEC (9.30-11.50) Prothromb Time International Ratio 1.8 (0.9-1.1) Activated Partial Thromboplast Time 37 SEC (23-33) Fibrinogen 184 mg/dL (200-400) D-Dimer 94385 ng/mL (<500) Test 02/08/17 04:00 02/08/17 07:55 02/08/17 17:20 02/08/17 18:15 White Blood Count 17.5 K/UL (4.8-10.8) Red Blood Count 2.83 M/UL (4.20-5.40) Hemoglobin 8.7 G/DL (12.0-16.0) Hematocrit 25.1 % (37.0-47.0) Mean Corpuscular Volume 89 FL (80-99) Mean Corpuscular Hemoglobin 30.8 PG (27.0-31.0) Mean Corpuscular Hemoglobin Concent 34.7 G/DL (32.0-36.0) Red Cell Distribution Width 16.7 % (11.6-14.8) Platelet Count 34 K/UL (150-450) Mean Platelet Volume 8.4 FL (6.5-10.1) Neutrophils (%) (Auto) % (45.0-75.0) Lymphocytes (%) (Auto) % (20.0-45.0) Monocytes (%) (Auto) % (1.0-10.0) Eosinophils (%) (Auto) % (0.0-3.0) Basophils (%) (Auto) % (0.0-2.0) Differential Total Cells Counted 100 Neutrophils % (Manual) 73 % (45-75) Lymphocytes % (Manual) 13 % (20-45) Monocytes % (Manual) 7 % (1-10) Eosinophils % (Manual) 1 % (0-3) Basophils % (Manual) 0 % (0-2) Band Neutrophils 6 % (0-8) Nucleated Red Blood Cells 2 /100 WBC Platelet Estimate Decreased Platelet Morphology Normal Hypochromasia 1+ Anisocytosis 1+ Reticulocyte Count 2.0 % (0.0-2.0) Sodium Level 145 mEQ/L (135-145) Potassium Level 3.9 mEQ/L (3.4-4.9) Chloride Level 99 mEQ/L (98-107) Carbon Dioxide Level 28 mEQ/L (20-30) Anion Gap 18 (5-15) Blood Urea Nitrogen 51 mg/dL (7-23) Creatinine 4.1 mg/dL (0.5-0.9) Estimat Glomerular Filtration Rate mL/min (>60) Glucose Level 97 mg/dL (74-106) Uric Acid 4.3 mg/dL (3.0-7.5) Calcium Level 8.4 mg/dL (8.6-10.2) Phosphorus Level 4.4 mg/dL (2.5-4.8) Magnesium Level 1.8 mg/dL (1.7-2.5) Total Bilirubin 3.4 mg/dL (0.0-1.2) 1.5 mg/dL (0.0-1.2) Direct Bilirubin 2.2 mg/dL (0.1-0.3) 0.9 mg/dL (0.1-0.3) Aspartate Amino Transf (AST/SGOT) 551 U/L (5-40) Alanine Aminotransferase (ALT/SGPT) 91 U/L (3-33) Alkaline Phosphatase 195 U/L (35-104) C-Reactive Protein, Quantitative 29.6 mg/dL (< 0.5) Pro-B-Type Natriuretic Peptide 79094 pg/mL (0-450) Total Protein 4.6 g/dL (6.6-8.7) Albumin 2.3 g/dL (3.5-5.2) Globulin 2.3 g/dL Albumin/Globulin Ratio 1.0 (1.0-2.7) Arterial Blood pH 7.299 (7.350-7.450) Arterial Blood Partial Pressure CO2 63.8 mmHg (35.0-45.0) Arterial Blood Partial Pressure O2 103.0 mmHg (75.0-100.0) Arterial Blood HCO3 30.6 mmol/L (22.0-26.0) Arterial Blood Oxygen Saturation 96.7 % (92.0-98.0) Arterial Blood Base Excess 3.4 Levy Test Positive Haptoglobin < 29 mg/dL (30-200) Fibrinogen 313 mg/dL (200-400) Iron Level 166 ug/dL (37-145) Total Iron Binding Capacity 275 ug/dL (250-400) Percent Iron Saturation 60 % (15-50) Unsaturated Iron Binding 109 ug/dL (112-346) Vitamin B12 Level 1385 pg/mL (211-946) HIV (1&2) Antibody Rapid Negative (NEGATIVE) Stool Occult Blood Negative (NEGATIVE) Test 02/09/17 03:11 02/09/17 04:30 02/09/17 04:55 02/09/17 06:36 Arterial Blood pH 7.212 (7.350-7.450) 7.188 (7.350-7.450) Arterial Blood Partial Pressure CO2 78.2 mmHg (35.0-45.0) 68.4 mmHg (35.0-45.0) Arterial Blood Partial Pressure O2 53.9 mmHg (75.0-100.0) < 64.0 mmHg (75.0-100.0) Arterial Blood HCO3 30.7 mmol/L (22.0-26.0) 25.4 mmol/L (22.0-26.0) Arterial Blood Oxygen Saturation 83.2 % (92.0-98.0) 63.9 % (92.0-98.0) Arterial Blood Base Excess 2.0 -3.0 Levy Test Positive Positive Stool Occult Blood Negative (NEGATIVE) White Blood Count 17.7 K/UL (4.8-10.8) Red Blood Count 2.70 M/UL (4.20-5.40) Hemoglobin 8.2 G/DL (12.0-16.0) Hematocrit 24.6 % (37.0-47.0) Mean Corpuscular Volume 91 FL (80-99) Mean Corpuscular Hemoglobin 30.2 PG (27.0-31.0) Mean Corpuscular Hemoglobin Concent 33.1 G/DL (32.0-36.0) Red Cell Distribution Width 16.4 % (11.6-14.8) Platelet Count 27 K/UL (150-450) Mean Platelet Volume 9.4 FL (6.5-10.1) Neutrophils (%) (Auto) % (45.0-75.0) Lymphocytes (%) (Auto) % (20.0-45.0) Monocytes (%) (Auto) % (1.0-10.0) Eosinophils (%) (Auto) % (0.0-3.0) Basophils (%) (Auto) % (0.0-2.0) Differential Total Cells Counted 100 Neutrophils % (Manual) 71 % (45-75) Lymphocytes % (Manual) 16 % (20-45) Monocytes % (Manual) 4 % (1-10) Eosinophils % (Manual) 2 % (0-3) Basophils % (Manual) 0 % (0-2) Band Neutrophils 7 % (0-8) Nucleated Red Blood Cells 2 /100 WBC Platelet Estimate Decreased Platelet Morphology Normal Hypochromasia 1+ Anisocytosis 1+ Sodium Level 143 mEQ/L (135-145) Potassium Level 4.4 mEQ/L (3.4-4.9) Chloride Level 97 mEQ/L (98-107) Carbon Dioxide Level 28 mEQ/L (20-30) Anion Gap 18 (5-15) Blood Urea Nitrogen 76 mg/dL (7-23) Creatinine 5.1 mg/dL (0.5-0.9) Estimat Glomerular Filtration Rate mL/min (>60) Glucose Level 168 mg/dL (74-106) Calcium Level 8.7 mg/dL (8.6-10.2) Phosphorus Level 2.0 mg/dL (2.5-4.8) Total Bilirubin 1.2 mg/dL (0.0-1.2) Direct Bilirubin 0.6 mg/dL (0.1-0.3) Aspartate Amino Transf (AST/SGOT) 164 U/L (5-40) Alanine Aminotransferase (ALT/SGPT) 95 U/L (3-33) Alkaline Phosphatase 269 U/L (35-104) C-Reactive Protein, Quantitative 33.9 mg/dL (< 0.5) Pro-B-Type Natriuretic Peptide 87637 pg/mL (0-450) Total Protein 4.8 g/dL (6.6-8.7) Albumin 2.2 g/dL (3.5-5.2) Globulin 2.6 g/dL Albumin/Globulin Ratio 0.8 (1.0-2.7) Objective: WDWN chronically ill appearing; on the ventilator NAD coarse breath sounds bilaterally with rhonchi diffusely without change orally intubated S1S2 IRRR without MRG; rate controlled NABS nontender no HSM; feeding tube in place no CC; some edema slightly worse nonfocal poorly responsive skin noted pupils sluggish Micro: Microbiology Date/Time Source Procedure Growth Status 02/07/17 17:00 Sputum Gram Stain - Final Resulted 02/07/17 17:00 Sputum Sputum Culture Pending Resulted Accucheck: 252 FELIPE PATHAK Feb 10, 2017 07:40
[2017-02-10] MEDS: Docusate 100mg tablet GT SCH ×3 (09:01→17:50)
[2017-02-10] MEDS: Analgesic Balm 15gm TOPIC SCH ×4 (09:01→21:07)
[2017-02-10] MEDS: Pantoprazole Inj IVP SCH ×2 (09:01→21:07)
[2017-02-10 09:45] LABS: MEAN CORPUSCULAR HEMOGLOBIN 29.8 PG (27.0-31.0); MEAN CORPUSCULAR HGB CONC 32.3 G/DL (32.0-36.0); MEAN CORPUSCULAR VOLUME 92 FL (80-99); MEAN PLATELET VOLUME 12.3 FL (6.5-10.1); PLATELET COUNT 33 K/UL (150-450); RED BLOOD COUNT 2.51 M/UL (4.20-5.40); RED CELL DISTRIBUTION WIDTH 16.4 % (11.6-14.8); WHITE BLOOD COUNT 20.4 K/UL (4.8-10.8)
[2017-02-10 09:49] LABS: ALANINE AMINOTRANSFERASE 52 U/L (3-33); ALBUMIN/GLOBULIN RATIO 0.8 (1.0-2.7); ANION GAP 16 (5-15); ASPARTATE AMINO TRANSFERASE 41 U/L (5-40); CALCIUM 8.6 mg/dL (8.6-10.2); CARBON DIOXIDE 28 mEQ/L (20-30); CHLORIDE 97 mEQ/L (98-107); CREATININE 3.7 mg/dL (0.5-0.9); HEMOLYSIS 5; POTASSIUM 3.6 mEQ/L (3.4-4.9); SODIUM 141 mEQ/L (135-145); TOTAL PROTEIN 4.6 g/dL (6.6-8.7)
--- NOTE | 2017-02-10 10:13 | Wound Care Consultation ---
Wound Assessment Wound Assessment #1: Wound Number: #1 Wound Present on Admission: No New Wound: No Status Change of Wound: No Wound Location Body Site: sacral Wound Type: pressure ulcer Ewelina Test: Does not Ewelina Pressure Ulcer Stage: I Wound Length: 3.0 Wound Width: 9.0 Percent of Wound [place]/Red: 100 Wound Drainage Amount: None Wound Drainage Odor: None/Absent Tissue Surrounding Wound: Intact Wound General Appearance: Reddened Wound Assessment #2: Wound Number: #2 Wound Present on Admission: No New Wound: No Status Change of Wound: No Wound Location Body Site Modif: left Wound Location Body Site: ear Wound Type: pressure ulcer - resolved Wound Drainage Amount: None Wound Drainage Odor: None/Absent Tissue Surrounding Wound: Intact Wound General Appearance: Open to air, Clean/Dry Wound Assessment #3: Wound Number: #3 Wound Present on Admission: No New Wound: No Status Change of Wound: No Wound Location Body Site Modif: right Wound Location Body Site: ear - top of ear Wound Type: pressure ulcer Ewelina Test: Does not Ewelina Pressure Ulcer Stage: I Wound Length: 0.5 Wound Width: 0.5 Percent of Wound [place]/Red: 100 Wound Drainage Amount: None Wound Drainage Odor: None/Absent Tissue Surrounding Wound: Intact Wound General Appearance: Reddened Wound Comment #1 Left top of ear pressure ulcer stage I - noted good progress, skin intact, RESOLVED , no redness noted to site. #2 Right top of ear pressure ulcer stage I.- noted good progress, No further change noted upon assessment, skin intact. #3 Sacral pressure ulcer stage I.- upon reassessment noted good progress, decrease size , redness noted, skin remains intact. Recommendation. -APPLY SPR LOW AIR LOSS OVERLAY MATTRESS. -Local wound care as ordered. -Turn and reposition. -Keep clean and dry. -APPLY 4X4 GAUZE TO 02 TUBING FOR SKIN MANAGEMENT AND PREVENTION. -Optimize nutrition. -Heel protectors. -Avoid shear and friction. -Assess and notify MD for any change of condition. JEOVANY HOGUE Feb 10, 2017 10:13
[2017-02-10 10:24] LABS: ANISOCYTOSIS 1+; BAND NEUTROPHILS % (MANUAL) 6 % (0-8); BASOPHILS % (MANUAL) 0 % (0-2); EOSINOPHILS % (MANUAL) 0 % (0-3); LYMPHOCYTES % (MANUAL) 15 % (20-45); NEUTROPHILS % (MANUAL) 76 % (45-75); NUCLEATED RED BLOOD CELLS 9 /100 WBC; PLATELET ESTIMATE DECREASED; PLATELET MORPHOLOGY NORMAL; TOTAL CELLS COUNTED 100
[2017-02-10 10:25] LABS: HYPOCHROMASIA 1+
[2017-02-10 10:32] LABS: ABG ALLEN TEST POSITIVE; ABG BASE EXCESS 6
--- NOTE | 2017-02-10 10:42 | Infectious Diseases Prog Note ---
Assessment/Plan Assessment/Plan ASSESSMENT: 76 y/o female with: // Probable UTI - UCx(-) // Hypoxia, possible HCAP Scx: GNR - CXR 02/02 : Extensive bilateral interstitial and airspace opacities, unchanged // h/o CoNS bacteremia 11/05 ( 01/09 ) ?real ( PICC tip+ ) vs contaminant r/o recurrence/persistence - surveillance BCx(-) // h/o right ankle cellulitis / osteomyelitis / hardware infection SP incomplete Rx ( recommended to complete 6 weeks IV daptomycin, cefepime ( end ), but daughter apparently declined at last discharge per documentation ) - SP hardware removal 12/15 - no culture sent - 3P bone scan: 3 phase increased activity in region of distal aspect of right fibula compatible with hardware loosening and/or osteomyelitis - XR: surgical hardware seen reducing old healed distal fibular and medial malleolar fractures. No acute fractures. No dislocations. Bones are demineralized. - elevated ESR, CRP - h/o right ankle ORIF // Probable sepsis,SP // Leukocytosis , increased // VDRF intubated 02/07 // ARF on CKD --> IHD per renal SP placement of tunneled right jugular hemodialysis catheter. 01/29 // Dementia // DM2 - HbA1c 6.1% // h/o CAD - trop(-) x1 // NH resident // VRE colonized // No ABX allergies // Full Code PLAN: - on Merrem d# 4 ( 02/07 SP DC Teflaro d# 10 ) ( 01/28 SP IV cefepime d# 10 IV Vanco d# 2 ) - monitor CBC, temperatures - monitor BMP - monitor CXR - respiratory support prn - Sputum CX Subjective Constitutional: Denies: anorexia, chills, drenching sweats, fatigue, fever, no symptoms, other Allergies: Coded Allergies: MORPHINE (Verified Adverse Reaction, Severe, PARADOXICAL REACTION, 10/08/12 ) Objective Vital Signs Last 24 Hour Vital Signs Date Time Temp Pulse Resp B/P Pulse Ox O2 Delivery O2 Flow Rate FiO2 02/10/17 09:30 87 31 102/49 88 Mechanical Ventilator 100 02/10/17 09:29 105 26 100 02/10/17 09:15 89 33 87/59 88 Mechanical Ventilator 100 02/10/17 09:00 95 32 96/32 89 Mechanical Ventilator 100 02/10/17 08:45 95 28 95/32 87 Mechanical Ventilator 100 02/10/17 08:30 82 26 60/50 88 Mechanical Ventilator 100 02/10/17 08:15 96 26 86/29 88 Mechanical Ventilator 100 02/10/17 08:00 76 24 69/38 86 Mechanical Ventilator 100 02/10/17 07:45 92 25 92/30 85 Mechanical Ventilator 100 02/10/17 07:30 97 26 97/30 88 Mechanical Ventilator 100 02/10/17 07:15 93 26 92/29 85 Mechanical Ventilator 100 02/10/17 07:13 82 32 100 02/10/17 07:00 102 25 73/37 84 Mechanical Ventilator 100 02/10/17 07:00 110/47 02/10/17 06:55 101 26 130/106 86 Mechanical Ventilator 100 02/10/17 06:45 103 23 112/44 84 Mechanical Ventilator 100 02/10/17 06:15 112 33 112/44 91 Mechanical Ventilator 100 02/10/17 06:00 112/44 02/10/17 06:00 102 33 112/44 91 Mechanical Ventilator 100 02/10/17 05:45 100 33 101/31 91 Mechanical Ventilator 100 02/10/17 05:30 102 33 116/37 91 Mechanical Ventilator 100 02/10/17 05:28 85 35 100 02/10/17 05:15 97 33 115/48 91 Mechanical Ventilator 100 02/10/17 05:00 107 33 131/112 91 Mechanical Ventilator 100 02/10/17 05:00 131/112 02/10/17 04:45 82 33 114/83 91 Mechanical Ventilator 100 02/10/17 04:30 96 33 96/46 91 Mechanical Ventilator 100 02/10/17 04:15 95 32 96/46 92 Mechanical Ventilator 100 02/10/17 04:00 97 02/10/17 04:00 100 02/10/17 04:00 97/53 02/10/17 04:00 99 33 111/48 90 Mechanical Ventilator 100 02/10/17 03:45 99 32 106/58 91 Mechanical Ventilator 100 02/10/17 03:30 83 32 112/38 91 Mechanical Ventilator 100 02/10/17 03:22 109 35 100 02/10/17 03:15 104 32 118/44 89 Mechanical Ventilator 100 02/10/17 03:00 118/48 02/10/17 03:00 116 33 111/48 90 Mechanical Ventilator 100 02/10/17 02:45 110 33 121/40 90 Mechanical Ventilator 100 02/10/17 02:30 103 33 121/41 90 Mechanical Ventilator 100 02/10/17 02:15 101 33 121/41 90 Mechanical Ventilator 100 02/10/17 02:00 86 33 106/59 90 Mechanical Ventilator 100 02/10/17 02:00 98/68 02/10/17 01:45 85 33 98/68 90 Mechanical Ventilator 100 02/10/17 01:30 106 33 123/54 90 Mechanical Ventilator 100 02/10/17 01:15 101 32 102/66 90 Mechanical Ventilator 100 02/10/17 01:00 86 32 101/63 91 Mechanical Ventilator 100 02/10/17 01:00 101/63 02/10/17 00:52 85 35 100 02/10/17 00:00 87 33 129/40 90 Mechanical Ventilator 100 02/10/17 00:00 100 02/10/17 00:00 115 02/10/17 00:00 129/40 02/09/17 23:45 104 33 118/54 89 Mechanical Ventilator 100 02/09/17 23:30 105 31 102/53 92 Mechanical Ventilator 100 02/09/17 23:24 89 31 100 02/09/17 23:15 87 28 120/38 92 Mechanical Ventilator 100 02/09/17 23:00 87 28 147/60 91 Mechanical Ventilator 100 02/09/17 23:00 102/53 02/09/17 22:45 101 29 119/44 92 Mechanical Ventilator 100 02/09/17 22:30 106 23 119/44 93 Mechanical Ventilator 100 02/09/17 22:15 84 27 121/50 96 Mechanical Ventilator 100 02/09/17 22:00 105 28 115/71 94 Mechanical Ventilator 100 02/09/17 22:00 115/71 02/09/17 21:45 101 27 86/38 94 Mechanical Ventilator 100 02/09/17 21:30 97 27 86/33 93 Mechanical Ventilator 100 02/09/17 21:15 100 27 90/52 92 Mechanical Ventilator 100 02/09/17 21:00 123 28 99/52 94 Mechanical Ventilator 100 02/09/17 21:00 93/31 02/09/17 20:45 91 28 99/59 93 Mechanical Ventilator 100 02/09/17 20:43 115 30 100 02/09/17 20:30 85 28 113/34 92 Mechanical Ventilator 100 02/09/17 20:15 99 29 102/45 90 Mechanical Ventilator 100 02/09/17 20:00 100 02/09/17 20:00 104 02/09/17 20:00 107/42 02/09/17 20:00 96.8 104 29 107/42 90 Mechanical Ventilator 100 02/09/17 19:45 102 27 114/42 93 Mechanical Ventilator 100 02/09/17 19:30 106 27 121/75 93 Mechanical Ventilator 100 02/09/17 19:15 105 27 92/37 94 Mechanical Ventilator 100 02/09/17 19:00 87 26 115/76 95 Mechanical Ventilator 100 02/09/17 18:45 88 32 105/41 91 Mechanical Ventilator 100 02/09/17 18:44 89 33 100 02/09/17 18:30 110 28 84/34 88 Mechanical Ventilator 100 02/09/17 18:15 110 34 105/88 89 Mechanical Ventilator 100 02/09/17 18:00 110/35 02/09/17 18:00 110 33 111/35 88 Mechanical Ventilator 100 02/09/17 17:45 110 30 107/37 88 Mechanical Ventilator 100 02/09/17 17:30 110 34 96/45 88 Mechanical Ventilator 100 02/09/17 17:28 105 30 100 02/09/17 17:15 103 30 83/55 87 Mechanical Ventilator 100 02/09/17 17:00 102 31 88/34 87 Mechanical Ventilator 100 02/09/17 17:00 88/34 02/09/17 16:45 103 31 86/52 86 Mechanical Ventilator 100 02/09/17 16:30 86 28 119/30 86 Mechanical Ventilator 100 02/09/17 16:15 110 33 103/42 85 Mechanical Ventilator 100 02/09/17 16:00 100 02/09/17 16:00 89 02/09/17 16:00 99.2 114 34 130/45 85 Mechanical Ventilator 100 02/09/17 16:00 140/40 02/09/17 15:45 88 33 140/40 88 Mechanical Ventilator 100 02/09/17 15:30 89 32 130/31 89 Mechanical Ventilator 100 02/09/17 15:15 89 31 145/40 87 Mechanical Ventilator 100 02/09/17 15:10 88 29 100 4/10/17 15:00 146/36 02/09/17 15:00 88 30 146/59 88 Mechanical Ventilator 100 02/09/17 14:45 114 34 127/45 86 Mechanical Ventilator 100 02/09/17 14:30 109 31 127/37 86 Mechanical Ventilator 100 02/09/17 14:30 127/37 02/09/17 14:27 99/31 02/09/17 14:15 109 34 99/31 87 Mechanical Ventilator 100 02/09/17 14:00 110 31 129/40 87 Mechanical Ventilator 100 02/09/17 13:45 98 31 131/59 90 Mechanical Ventilator 100 02/09/17 13:30 99 31 101/52 90 Mechanical Ventilator 100 02/09/17 13:15 92 31 97/44 90 Mechanical Ventilator 100 02/09/17 13:00 91 29 104/33 89 Mechanical Ventilator 100 02/09/17 12:45 96 28 107/36 87 Mechanical Ventilator 100 02/09/17 12:40 84 31 100 02/09/17 12:30 94 28 101/29 86 Mechanical Ventilator 100 02/09/17 12:15 92 28 87/50 88 Mechanical Ventilator 100 02/09/17 12:00 95 28 108/33 88 Mechanical Ventilator 100 02/09/17 12:00 94 02/09/17 12:00 108/33 02/09/17 12:00 100 02/09/17 11:50 Mechanical Ventilator 15.0 100 02/09/17 11:45 91 29 98/47 89 Mechanical Ventilator 100 02/09/17 11:30 93 27 105/38 86 Mechanical Ventilator 100 02/09/17 11:20 84 28 100 02/09/17 11:15 93 20 89/32 89 Mechanical Ventilator 100 02/09/17 11:00 97 20 110/40 89 Mechanical Ventilator 100 02/09/17 11:00 110/40 02/09/17 10:45 90 20 104/41 90 Mechanical Ventilator 100 Height (Feet): 5 Height (Inches): 1.00 Weight (Pounds): 200 HEENT: atraumatic Respiratory/Chest: normal breath sounds Cardiovascular: regular rhythm Abdomen: no organomegaly Microbiology Date/Time Source Procedure Growth Status 02/07/17 17:00 Sputum Gram Stain - Final Resulted 02/07/17 17:00 Sputum Culture - Preliminary Gram Negative Bacillus 1 Resulted Laboratory Tests Test 02/10/17 08:20 02/10/17 10:16 White Blood Count 20.4 K/UL (4.8-10.8) H Red Blood Count 2.51 M/UL (4.20-5.40) L Hemoglobin 7.5 G/DL (12.0-16.0) L Hematocrit 23.2 % (37.0-47.0) L Mean Corpuscular Volume 92 FL (80-99) Mean Corpuscular Hemoglobin 29.8 PG (27.0-31.0) Mean Corpuscular Hemoglobin Concent 32.3 G/DL (32.0-36.0) Red Cell Distribution Width 16.4 % (11.6-14.8) H Platelet Count 33 K/UL (150-450) L Mean Platelet Volume 12.3 FL (6.5-10.1) H Neutrophils (%) (Auto) % (45.0-75.0) Lymphocytes (%) (Auto) % (20.0-45.0) Monocytes (%) (Auto) % (1.0-10.0) Eosinophils (%) (Auto) % (0.0-3.0) Basophils (%) (Auto) % (0.0-2.0) Differential Total Cells Counted 100 Neutrophils % (Manual) 76 % (45-75) H Lymphocytes % (Manual) 15 % (20-45) L Monocytes % (Manual) 3 % (1-10) Eosinophils % (Manual) 0 % (0-3) Basophils % (Manual) 0 % (0-2) Band Neutrophils 6 % (0-8) Nucleated Red Blood Cells 9 /100 WBC Platelet Estimate Decreased L Platelet Morphology Normal Hypochromasia 1+ Anisocytosis 1+ Sodium Level 141 mEQ/L (135-145) Potassium Level 3.6 mEQ/L (3.4-4.9) Chloride Level 97 mEQ/L (98-107) L Carbon Dioxide Level 28 mEQ/L (20-30) Anion Gap 16 (5-15) H Blood Urea Nitrogen 52 mg/dL (7-23) H Creatinine 3.7 mg/dL (0.5-0.9) H Estimat Glomerular Filtration Rate mL/min (>60) Glucose Level 234 mg/dL (74-106) H Calcium Level 8.6 mg/dL (8.6-10.2) Total Bilirubin 0.9 mg/dL (0.0-1.2) Aspartate Amino Transf (AST/SGOT) 41 U/L (5-40) H Alanine Aminotransferase (ALT/SGPT) 52 U/L (3-33) H Alkaline Phosphatase 256 U/L (35-104) H Total Protein 4.6 g/dL (6.6-8.7) L Albumin 2.1 g/dL (3.5-5.2) L Globulin 2.5 g/dL Albumin/Globulin Ratio 0.8 (1.0-2.7) L Arterial Blood pH 7.300 (7.350-7.450) Arterial Blood Partial Pressure CO2 69.0 mmHg (35.0-45.0) *H Arterial Blood Partial Pressure O2 57.0 mmHg (75.0-100.0) L Arterial Blood HCO3 33.0 mmol/L (22.0-26.0) H Arterial Blood Oxygen Saturation 89.0 % (92.0-98.0) L Arterial Blood Base Excess 6 Levy Test Positive Current Medications Medications (Trade) Dose Ordered Sig/Rina Route PRN Reason Start Time Stop Time Status Last Admin Dose Admin Acetaminophen (Tylenol) 650 mg Q6H PRN ORAL Mild Pain/Temp > 100.5 02/07/17 17:00 03/09/17 16:59 Acetaminophen/ Hydrocodone Bitart ([place] 5/325) 1 tab Q4H PRN GT Moderate Pain (Pain Scale 4-6) 02/07/17 17:00 02/14/17 16:59 02/08/17 23:01 Albuterol/ Ipratropium (DuoNeb 0.5-3(2.5)mg/3ml) 3 ml Q4H PRN HHN Shortness of Breath 02/07/17 17:00 02/12/17 16:59 Dextrose (Dextrose 50%) STAT PRN IV Hypoglycemia 02/07/17 17:00 03/09/17 16:59 Docusate Sodium (Colace) 100 mg TID GT 02/07/17 18:00 03/09/17 17:59 02/10/17 09:01 Insulin Aspart (NovoLOG) Q6HR SUBQ 02/07/17 18:00 03/09/17 17:59 02/10/17 06:00 Lorazepam 1 mg 1 mg Q1H PRN IV For Anxiety 02/07/17 22:30 02/14/17 22:29 Menthol/Methyl Salicylate (Bengay) 1 applic FOUR TIMES A DAY TOPIC 02/07/17 18:00 03/09/17 17:59 02/10/17 09:01 Meropenem/Sodium Chloride (Merrem/Sodium Chloride) 55 ml @ 110 mls/hr DAILY@1400 IVPB 02/08/17 14:00 02/13/17 13:59 02/09/17 14:26 Nitroglycerin (Ntg) 0.4 mg Q5M X 3 DOSES PRN SL Prn Chest Pain 02/07/17 16:00 03/09/17 15:59 Norepinephrine Bitartrate/ Dextrose (Levophed/D5W) 250 ml @ 0 mls/hr Q24H IV 02/09/17 07:00 03/11/17 06:59 02/09/17 14:27 Ondansetron HCl (Zofran) 4 mg Q6H PRN IVP Nausea & Vomiting 02/07/17 17:00 03/09/17 16:59 Pantoprazole (Protonix) 40 mg EVERY 12 HOURS IVP 02/07/17 21:00 03/09/17 20:59 02/10/17 09:01 Polyethylene Glycol (Miralax) 17 gm DAILYPRN PRN GT Constipation 02/07/17 17:00 03/09/17 16:59 GISELLA JEROME M.D. Feb 10, 2017 10:42
--- NOTE | 2017-02-10 10:59 | General Progress Note ---
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 bilateral right greater than left pleural effusions and Mediastinal lymphadenopathy - she is a poor candidate for biopsy and has a poor prognosis # Anemia 2/2 chronic disease - s/p multiple units of blood # Leukocytosis - related to sepsis and underlying infection, is on antibiotics # Respiratory failure s/p intubation # Respiratory acidosis # Renal failure # ALOC # Sepsis Recs: - Transfuse to hgb goal >7, plt goal >20k if bleeding - She has DIC at this time - She is off heparin, plavix, aspirin - Agree to administer FFP if INR >2 - Does not require a biopsy as has poor prognosis and poor outcome at this time - NG feeds at maximal rate - Appreciate consultation!! continue to follow Subjective Constitutional: Reports: no symptoms HEENT: Reports: no symptoms Cardiovascular: Reports: no symptoms Respiratory: Reports: no symptoms Gastrointestinal/Abdominal: Reports: no symptoms Genitourinary: Reports: no symptoms 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: Reports: no symptoms Endocrine: Reports: no symptoms Hematologic/Lymphatic: Reports: anemia Allergies: Coded Allergies: MORPHINE (Verified Adverse Reaction, Severe, PARADOXICAL REACTION, 10/08/12 ) Subjective no fevers, no chills, no night sweats Objective Last 24 Hour Vital Signs Date Time Temp Pulse Resp B/P Pulse Ox O2 Delivery O2 Flow Rate FiO2 02/10/17 09:30 87 31 102/49 88 Mechanical Ventilator 100 02/10/17 09:29 105 26 100 02/10/17 09:15 89 33 87/59 88 Mechanical Ventilator 100 02/10/17 09:00 95 32 96/32 89 Mechanical Ventilator 100 02/10/17 08:45 95 28 95/32 87 Mechanical Ventilator 100 02/10/17 08:30 82 26 60/50 88 Mechanical Ventilator 100 02/10/17 08:15 96 26 86/29 88 Mechanical Ventilator 100 02/10/17 08:00 76 24 69/38 86 Mechanical Ventilator 100 02/10/17 07:45 92 25 92/30 85 Mechanical Ventilator 100 02/10/17 07:30 97 26 97/30 88 Mechanical Ventilator 100 02/10/17 07:15 93 26 92/29 85 Mechanical Ventilator 100 02/10/17 07:13 82 32 100 4/11/17 07:00 102 25 73/37 84 Mechanical Ventilator 100 02/10/17 07:00 110/47 02/10/17 06:55 101 26 130/106 86 Mechanical Ventilator 100 02/10/17 06:45 103 23 112/44 84 Mechanical Ventilator 100 02/10/17 06:15 112 33 112/44 91 Mechanical Ventilator 100 02/10/17 06:00 112/44 02/10/17 06:00 102 33 112/44 91 Mechanical Ventilator 100 02/10/17 05:45 100 33 101/31 91 Mechanical Ventilator 100 02/10/17 05:30 102 33 116/37 91 Mechanical Ventilator 100 02/10/17 05:28 85 35 100 02/10/17 05:15 97 33 115/48 91 Mechanical Ventilator 100 02/10/17 05:00 107 33 131/112 91 Mechanical Ventilator 100 02/10/17 05:00 131/112 02/10/17 04:45 82 33 114/83 91 Mechanical Ventilator 100 02/10/17 04:30 96 33 96/46 91 Mechanical Ventilator 100 02/10/17 04:15 95 32 96/46 92 Mechanical Ventilator 100 02/10/17 04:00 97 02/10/17 04:00 100 02/10/17 04:00 97/53 02/10/17 04:00 99 33 111/48 90 Mechanical Ventilator 100 02/10/17 03:45 99 32 106/58 91 Mechanical Ventilator 100 02/10/17 03:30 83 32 112/38 91 Mechanical Ventilator 100 02/10/17 03:22 109 35 100 02/10/17 03:15 104 32 118/44 89 Mechanical Ventilator 100 02/10/17 03:00 118/48 02/10/17 03:00 116 33 111/48 90 Mechanical Ventilator 100 02/10/17 02:45 110 33 121/40 90 Mechanical Ventilator 100 02/10/17 02:30 103 33 121/41 90 Mechanical Ventilator 100 02/10/17 02:15 101 33 121/41 90 Mechanical Ventilator 100 02/10/17 02:00 86 33 106/59 90 Mechanical Ventilator 100 02/10/17 02:00 98/68 02/10/17 01:45 85 33 98/68 90 Mechanical Ventilator 100 02/10/17 01:30 106 33 123/54 90 Mechanical Ventilator 100 02/10/17 01:15 101 32 102/66 90 Mechanical Ventilator 100 02/10/17 01:00 86 32 101/63 91 Mechanical Ventilator 100 02/10/17 01:00 101/63 02/10/17 00:52 85 35 100 02/10/17 00:00 87 33 129/40 90 Mechanical Ventilator 100 02/10/17 00:00 100 02/10/17 00:00 115 02/10/17 00:00 129/40 02/09/17 23:45 104 33 118/54 89 Mechanical Ventilator 100 02/09/17 23:30 105 31 102/53 92 Mechanical Ventilator 100 02/09/17 23:24 89 31 100 02/09/17 23:15 87 28 120/38 92 Mechanical Ventilator 100 02/09/17 23:00 87 28 147/60 91 Mechanical Ventilator 100 02/09/17 23:00 102/53 02/09/17 22:45 101 29 119/44 92 Mechanical Ventilator 100 02/09/17 22:30 106 23 119/44 93 Mechanical Ventilator 100 02/09/17 22:15 84 27 121/50 96 Mechanical Ventilator 100 02/09/17 22:00 105 28 115/71 94 Mechanical Ventilator 100 02/09/17 22:00 115/71 02/09/17 21:45 101 27 86/38 94 Mechanical Ventilator 100 02/09/17 21:30 97 27 86/33 93 Mechanical Ventilator 100 02/09/17 21:15 100 27 90/52 92 Mechanical Ventilator 100 02/09/17 21:00 123 28 99/52 94 Mechanical Ventilator 100 02/09/17 21:00 93/31 02/09/17 20:45 91 28 99/59 93 Mechanical Ventilator 100 02/09/17 20:43 115 30 100 02/09/17 20:30 85 28 113/34 92 Mechanical Ventilator 100 02/09/17 20:15 99 29 102/45 90 Mechanical Ventilator 100 02/09/17 20:00 100 02/09/17 20:00 104 02/09/17 20:00 107/42 02/09/17 20:00 96.8 104 29 107/42 90 Mechanical Ventilator 100 02/09/17 19:45 102 27 114/42 93 Mechanical Ventilator 100 02/09/17 19:30 106 27 121/75 93 Mechanical Ventilator 100 02/09/17 19:15 105 27 92/37 94 Mechanical Ventilator 100 02/09/17 19:00 87 26 115/76 95 Mechanical Ventilator 100 02/09/17 18:45 88 32 105/41 91 Mechanical Ventilator 100 02/09/17 18:44 89 33 100 02/09/17 18:30 110 28 84/34 88 Mechanical Ventilator 100 02/09/17 18:15 110 34 105/88 89 Mechanical Ventilator 100 02/09/17 18:00 110/35 02/09/17 18:00 110 33 111/35 88 Mechanical Ventilator 100 02/09/17 17:45 110 30 107/37 88 Mechanical Ventilator 100 02/09/17 17:30 110 34 96/45 88 Mechanical Ventilator 100 02/09/17 17:28 105 30 100 02/09/17 17:15 103 30 83/55 87 Mechanical Ventilator 100 02/09/17 17:00 102 31 88/34 87 Mechanical Ventilator 100 02/09/17 17:00 88/34 02/09/17 16:45 103 31 86/52 86 Mechanical Ventilator 100 02/09/17 16:30 86 28 119/30 86 Mechanical Ventilator 100 02/09/17 16:15 110 33 103/42 85 Mechanical Ventilator 100 02/09/17 16:00 100 02/09/17 16:00 89 02/09/17 16:00 99.2 114 34 130/45 85 Mechanical Ventilator 100 02/09/17 16:00 140/40 02/09/17 15:45 88 33 140/40 88 Mechanical Ventilator 100 02/09/17 15:30 89 32 130/31 89 Mechanical Ventilator 100 02/09/17 15:15 89 31 145/40 87 Mechanical Ventilator 100 02/09/17 15:10 88 29 100 02/09/17 15:00 146/36 02/09/17 15:00 88 30 146/59 88 Mechanical Ventilator 100 02/09/17 14:45 114 34 127/45 86 Mechanical Ventilator 100 02/09/17 14:30 109 31 127/37 86 Mechanical Ventilator 100 02/09/17 14:30 127/37 02/09/17 14:27 99/31 02/09/17 14:15 109 34 99/31 87 Mechanical Ventilator 100 02/09/17 14:00 110 31 129/40 87 Mechanical Ventilator 100 02/09/17 13:45 98 31 131/59 90 Mechanical Ventilator 100 02/09/17 13:30 99 31 101/52 90 Mechanical Ventilator 100 02/09/17 13:15 92 31 97/44 90 Mechanical Ventilator 100 02/09/17 13:00 91 29 104/33 89 Mechanical Ventilator 100 02/09/17 12:45 96 28 107/36 87 Mechanical Ventilator 100 02/09/17 12:40 84 31 100 02/09/17 12:30 94 28 101/29 86 Mechanical Ventilator 100 02/09/17 12:15 92 28 87/50 88 Mechanical Ventilator 100 02/09/17 12:00 95 28 108/33 88 Mechanical Ventilator 100 02/09/17 12:00 94 02/09/17 12:00 108/33 02/09/17 12:00 100 02/09/17 11:50 Mechanical Ventilator 15.0 100 02/09/17 11:45 91 29 98/47 89 Mechanical Ventilator 100 02/09/17 11:30 93 27 105/38 86 Mechanical Ventilator 100 02/09/17 11:20 84 28 100 02/09/17 11:15 93 20 89/32 89 Mechanical Ventilator 100 02/09/17 11:00 97 20 110/40 89 Mechanical Ventilator 100 02/09/17 11:00 110/40 Intake and Output 02/09/17 02/10/17 19:00 07:00 Intake Total 806.3875 ml 588.75 ml Output Total 1500 ml 0 ml Balance -693.6125 ml 588.75 ml Free Water 40 ml IV Total 336.3875 ml 168.75 ml Tube Feeding 420 ml 420 ml Other 10 ml Output Urine Total 0 ml 0 ml Hemodialysis UF 1500 ml Laboratory Tests 02/10/17 08:20: White Blood Count 20.4H, Red Blood Count 2.51L, Hemoglobin 7.5L, Hematocrit 23.2L, Mean Corpuscular Volume 92, Mean Corpuscular Hemoglobin 29.8, Mean Corpuscular Hemoglobin Concent 32.3, Red Cell Distribution Width 16.4H, Platelet Count 33L, Mean Platelet Volume 12.3H, Neutrophils (%) (Auto) , Lymphocytes (%) (Auto) , Monocytes (%) (Auto) , Eosinophils (%) (Auto) , Basophils (%) (Auto) , Differential Total Cells Counted 100, Neutrophils % ( Manual) 76H, Lymphocytes % (Manual) 15L, Monocytes % (Manual) 3, Eosinophils % ( Manual) 0, Basophils % (Manual) 0, Band Neutrophils 6, Nucleated Red Blood Cells 9, Platelet Estimate DecreasedL, Platelet Morphology Normal, Hypochromasia 1+, Anisocytosis 1+, Sodium Level 141, Potassium Level 3.6, Chloride Level 97L, Carbon Dioxide Level 28, Anion Gap 16H, Blood Urea Nitrogen 52H, Creatinine 3.7H, Estimat Glomerular Filtration Rate , Glucose Level 234H, Calcium Level 8.6, Total Bilirubin 0.9, Aspartate Amino Transf (AST/SGOT) 41H, Alanine Aminotransferase (ALT/SGPT) 52H, Alkaline Phosphatase 256H, Total Protein 4.6L, Albumin 2.1L, Globulin 2.5, Albumin/Globulin Ratio 0.8L 02/10/17 10:16: Arterial Blood pH 7.300L, Arterial Blood Partial Pressure CO2 69.0*H, Arterial Blood Partial Pressure O2 57.0L, Arterial Blood HCO3 33.0H, Arterial Blood Oxygen Saturation 89.0L, Arterial Blood Base Excess 6, Levy Test Positive Height (Feet): 5 Height (Inches): 1.00 Weight (Pounds): 200 General Appearance: alert EENT: TMs normal Neck: normal inspection Cardiovascular: regular rhythm Respiratory/Chest: no respiratory distress Abdomen: no organomegaly Extremities: normal range of motion Edema: 1+ Leg (L), 1+ Leg (R) Edema: mild edema Neurologic: alert Skin: warm/dry Mariano Ortiz Feb 10, 2017 10:59
[2017-02-10] MEDS: Meropenem 500 MG in NS 55 ML IVPB SCH (15:10)
[2017-02-10] MEDS ORDERED: NS 275ml ONE (16:11)
--- NOTE | 2017-02-10 22:22 | Nephrology Progress Note ---
Assessment/Plan Problem List: (1) Acute on chronic renal failure (2) Pneumonia (3) Respiratory failure with hypoxia (4) Anemia of chronic kidney failure (5) Sepsis Assessment low phos Plan HD tomorrow off Amphojel an Renvela because of low phos follow labs on pressors off Amlodipine Abxs Discussed with RN Subjective Subjective pt was seen earlier today in ICU Objective Objective Last 24 Hour Vital Signs Date Time Temp Pulse Resp B/P Pulse Ox O2 Delivery O2 Flow Rate FiO2 02/10/17 21:23 93 32 100 02/10/17 21:00 94 24 105/63 96 Mechanical Ventilator 100 02/10/17 20:45 83 30 133/50 96 Mechanical Ventilator 100 02/10/17 20:30 87 30 116/50 97 Mechanical Ventilator 100 02/10/17 20:15 81 30 120/44 97 Mechanical Ventilator 100 02/10/17 20:00 100 02/10/17 20:00 97.5 92 30 107/67 97 Mechanical Ventilator 100 02/10/17 20:00 92 02/10/17 19:06 80 30 100 02/10/17 19:00 82 25 110/38 96 Mechanical Ventilator 100 02/10/17 18:45 80 24 94/41 97 Mechanical Ventilator 100 02/10/17 18:30 80 27 116/35 96 Mechanical Ventilator 100 02/10/17 18:15 84 25 120/30 96 Mechanical Ventilator 100 02/10/17 18:00 84 24 123/44 96 Mechanical Ventilator 100 02/10/17 17:45 80 31 84/44 95 Mechanical Ventilator 100 02/10/17 17:30 81 29 96/35 95 Mechanical Ventilator 100 02/10/17 17:15 80 24 95/33 95 Mechanical Ventilator 100 02/10/17 17:00 86 26 86/32 94 Mechanical Ventilator 100 02/10/17 16:45 86 26 80/33 95 Mechanical Ventilator 100 02/10/17 16:30 89 25 101/30 94 Mechanical Ventilator 100 02/10/17 16:15 90 26 93/34 90 Mechanical Ventilator 100 02/10/17 16:00 98.5 92 24 111/46 89 Mechanical Ventilator 100 02/10/17 16:00 100 02/10/17 16:00 87 02/10/17 15:45 91 27 104/43 90 Mechanical Ventilator 100 02/10/17 15:30 90 28 108/35 90 Mechanical Ventilator 100 02/10/17 15:15 89 27 114/37 92 Mechanical Ventilator 100 02/10/17 15:00 86 27 104/34 93 Mechanical Ventilator 100 02/10/17 14:52 103 33 100 02/10/17 14:45 93 28 101/35 93 Mechanical Ventilator 100 02/10/17 14:30 90 27 98/36 95 Mechanical Ventilator 100 02/10/17 14:15 84 27 91/36 95 Mechanical Ventilator 100 02/10/17 14:00 87 30 108/38 95 Mechanical Ventilator 100 02/10/17 13:45 89 26 110/31 94 Mechanical Ventilator 100 02/10/17 13:30 86 28 101/46 92 Mechanical Ventilator 100 02/10/17 13:22 110 34 100 02/10/17 13:15 88 26 89/35 90 Mechanical Ventilator 100 02/10/17 13:00 99 30 90/47 91 Mechanical Ventilator 100 02/10/17 12:45 100 30 116/31 91 Mechanical Ventilator 100 02/10/17 12:30 93 30 105/37 90 Mechanical Ventilator 100 02/10/17 12:15 98 24 104/45 90 Mechanical Ventilator 100 02/10/17 12:00 100 02/10/17 12:00 98.1 100 22 100/47 90 Mechanical Ventilator 100 02/10/17 12:00 104 02/10/17 11:45 102 24 100/47 91 Mechanical Ventilator 100 02/10/17 11:30 93 24 103/41 91 Mechanical Ventilator 100 02/10/17 11:17 124 33 100 02/10/17 11:15 97 24 119/32 94 Mechanical Ventilator 100 02/10/17 11:00 93 24 106/44 94 Mechanical Ventilator 100 02/10/17 10:45 94 24 119/45 92 Mechanical Ventilator 100 02/10/17 10:30 94 26 101/35 92 Mechanical Ventilator 100 02/10/17 10:15 92 24 117/61 90 Mechanical Ventilator 100 02/10/17 10:00 91 23 103/43 90 Mechanical Ventilator 100 02/10/17 09:45 98.0 92 21 99/45 90 Mechanical Ventilator 100 02/10/17 09:30 87 31 102/49 88 Mechanical Ventilator 100 02/10/17 09:29 105 26 100 02/10/17 09:15 89 33 87/59 88 Mechanical Ventilator 100 02/10/17 09:00 95 32 96/32 89 Mechanical Ventilator 100 02/10/17 09:00 87/59 02/10/17 08:45 95 28 95/32 87 Mechanical Ventilator 100 02/10/17 08:30 82 26 60/50 88 Mechanical Ventilator 100 02/10/17 08:15 96 26 86/29 88 Mechanical Ventilator 100 02/10/17 08:00 92 02/10/17 08:00 76 24 69/38 86 Mechanical Ventilator 100 02/10/17 08:00 100 02/10/17 07:45 92 25 92/30 85 Mechanical Ventilator 100 02/10/17 07:30 97 26 97/30 88 Mechanical Ventilator 100 02/10/17 07:15 93 26 92/29 85 Mechanical Ventilator 100 02/10/17 07:13 82 32 100 02/10/17 07:00 102 25 73/37 84 Mechanical Ventilator 100 02/10/17 07:00 110/47 02/10/17 06:55 101 26 130/106 86 Mechanical Ventilator 100 02/10/17 06:45 103 23 112/44 84 Mechanical Ventilator 100 02/10/17 06:15 112 33 112/44 91 Mechanical Ventilator 100 02/10/17 06:00 112/44 02/10/17 06:00 102 33 112/44 91 Mechanical Ventilator 100 02/10/17 05:45 100 33 101/31 91 Mechanical Ventilator 100 02/10/17 05:30 102 33 116/37 91 Mechanical Ventilator 100 02/10/17 05:28 85 35 100 02/10/17 05:15 97 33 115/48 91 Mechanical Ventilator 100 02/10/17 05:00 107 33 131/112 91 Mechanical Ventilator 100 02/10/17 05:00 131/112 02/10/17 04:45 82 33 114/83 91 Mechanical Ventilator 100 02/10/17 04:30 96 33 96/46 91 Mechanical Ventilator 100 02/10/17 04:15 95 32 96/46 92 Mechanical Ventilator 100 02/10/17 04:00 97 02/10/17 04:00 100 02/10/17 04:00 97/53 02/10/17 04:00 99 33 111/48 90 Mechanical Ventilator 100 02/10/17 03:45 99 32 106/58 91 Mechanical Ventilator 100 02/10/17 03:30 83 32 112/38 91 Mechanical Ventilator 100 02/10/17 03:22 109 35 100 02/10/17 03:15 104 32 118/44 89 Mechanical Ventilator 100 02/10/17 03:00 118/48 02/10/17 03:00 116 33 111/48 90 Mechanical Ventilator 100 02/10/17 02:45 110 33 121/40 90 Mechanical Ventilator 100 02/10/17 02:30 103 33 121/41 90 Mechanical Ventilator 100 02/10/17 02:15 101 33 121/41 90 Mechanical Ventilator 100 02/10/17 02:00 86 33 106/59 90 Mechanical Ventilator 100 02/10/17 02:00 98/68 02/10/17 01:45 85 33 98/68 90 Mechanical Ventilator 100 02/10/17 01:30 106 33 123/54 90 Mechanical Ventilator 100 02/10/17 01:15 101 32 102/66 90 Mechanical Ventilator 100 02/10/17 01:00 86 32 101/63 91 Mechanical Ventilator 100 02/10/17 01:00 101/63 02/10/17 00:52 85 35 100 02/10/17 00:00 87 33 129/40 90 Mechanical Ventilator 100 02/10/17 00:00 100 02/10/17 00:00 115 02/10/17 00:00 129/40 02/09/17 23:45 104 33 118/54 89 Mechanical Ventilator 100 02/09/17 23:30 105 31 102/53 92 Mechanical Ventilator 100 02/09/17 23:24 89 31 100 02/09/17 23:15 87 28 120/38 92 Mechanical Ventilator 100 02/09/17 23:00 87 28 147/60 91 Mechanical Ventilator 100 02/09/17 23:00 102/53 02/09/17 22:45 101 29 119/44 92 Mechanical Ventilator 100 02/09/17 22:30 106 23 119/44 93 Mechanical Ventilator 100 Intake and Output 02/09/17 02/10/17 19:00 07:00 Intake Total 806.3875 ml 588.75 ml Output Total 1500 ml 0 ml Balance -693.6125 ml 588.75 ml Free Water 40 ml IV Total 336.3875 ml 168.75 ml Tube Feeding 420 ml 420 ml Other 10 ml Output Urine Total 0 ml 0 ml Hemodialysis UF 1500 ml Laboratory Tests 02/10/17 08:20: White Blood Count 20.4H, Red Blood Count 2.51L, Hemoglobin 7.5L, Hematocrit 23.2L, Mean Corpuscular Volume 92, Mean Corpuscular Hemoglobin 29.8, Mean Corpuscular Hemoglobin Concent 32.3, Red Cell Distribution Width 16.4H, Platelet Count 33L, Mean Platelet Volume 12.3H, Neutrophils (%) (Auto) , Lymphocytes (%) (Auto) , Monocytes (%) (Auto) , Eosinophils (%) (Auto) , Basophils (%) (Auto) , Differential Total Cells Counted 100, Neutrophils % ( Manual) 76H, Lymphocytes % (Manual) 15L, Monocytes % (Manual) 3, Eosinophils % ( Manual) 0, Basophils % (Manual) 0, Band Neutrophils 6, Nucleated Red Blood Cells 9, Platelet Estimate DecreasedL, Platelet Morphology Normal, Hypochromasia 1+, Anisocytosis 1+, Sodium Level 141, Potassium Level 3.6, Chloride Level 97L, Carbon Dioxide Level 28, Anion Gap 16H, Blood Urea Nitrogen 52H, Creatinine 3.7H, Estimat Glomerular Filtration Rate , Glucose Level 234H, Calcium Level 8.6, Total Bilirubin 0.9, Aspartate Amino Transf (AST/SGOT) 41H, Alanine Aminotransferase (ALT/SGPT) 52H, Alkaline Phosphatase 256H, Total Protein 4.6L, Albumin 2.1L, Globulin 2.5, Albumin/Globulin Ratio 0.8L 02/10/17 10:16: Arterial Blood pH 7.300L, Arterial Blood Partial Pressure CO2 69.0*H, Arterial Blood Partial Pressure O2 57.0L, Arterial Blood HCO3 33.0H, Arterial Blood Oxygen Saturation 89.0L, Arterial Blood Base Excess 6, Levy Test Positive Height (Feet): 5 Height (Inches): 1.00 Weight (Pounds): 200 Cardiovascular: normal rate Respiratory/Chest: rhonchi - bilaterally Extremities: moderate edema EYD GUARDADO Feb 10, 2017 22:22
[2017-02-11] VITALS (69 sets, daily range): BP systolic 73–162; BP diastolic 13–84
[2017-02-11] MEDS: NovoLOG Insulin Flexpen SUBQ SCH ×5 (00:17→23:44)
--- NOTE | 2017-02-11 01:57 | Progress Note ---
DATE: 02/10/2017 CARDIOLOGY PROGRESS NOTE Time of Evaluation: 9:30 a.m. SUBJECTIVE: The patient's condition remains critical. Prognosis remains guarded. She is on full ventilator support, pressor support, unresponsive and with continued evidence of DIC. She has required transfusions and monitored rhythm, atrial fibrillation, rate controlled. PHYSICAL EXAMINATION: GENERAL: The patient is sedated, orally intubated. LUNGS: Bilateral rhonchi and rales. HEART: Irregularly irregular rhythm. Normal S1 and S2. ABDOMEN: Distended. EXTREMITIES: There is 1+ dependent edema with ecchymoses. LABORATORY AND DIAGNOSTIC DATA: White count 20.4, hemoglobin 7.5 and platelets 33,000. Sodium 141, potassium 3.6, bicarbonate 28, BUN 52, and creatinine 3.7. Albumin 2.1. ABG, pH 7.30, pCO2 69 and pO2 57. IMPRESSION: 1. Sepsis shock. 2. AIDS. 3. Pancytopenia. 4. Respiratory failure. 5. Atrial fibrillation. 6. Metabolic acidosis. PLAN: 1. Taper pressors as able. 2. Continue ventilator support. 3. Transfusions of blood products as needed for bleeding. 4. Antimicrobials and volume support. 5. Family members are aware of critical condition and readdressing Code Status on a regular basis. Joss Rush M.D. DR: AUREA JOB#: [id number] CC:
[2017-02-11 03:43] LABS: MEAN CORPUSCULAR HEMOGLOBIN 29.8 PG (27.0-31.0); MEAN CORPUSCULAR HGB CONC 33.1 G/DL (32.0-36.0); MEAN CORPUSCULAR VOLUME 90 FL (80-99); MEAN PLATELET VOLUME 9.2 FL (6.5-10.1); PLATELET COUNT 29 K/UL (150-450); RED BLOOD COUNT 2.96 M/UL (4.20-5.40); RED CELL DISTRIBUTION WIDTH 15.6 % (11.6-14.8)
[2017-02-11 04:02] LABS: ALANINE AMINOTRANSFERASE 37 U/L (3-33); ALBUMIN/GLOBULIN RATIO 0.6 (1.0-2.7); ANION GAP 12 (5-15); ASPARTATE AMINO TRANSFERASE 30 U/L (5-40); CALCIUM 9.2 mg/dL (8.6-10.2); CARBON DIOXIDE 31 mEQ/L (20-30); CHLORIDE 98 mEQ/L (98-107); CREATININE 4.2 mg/dL (0.5-0.9); HEMOLYSIS 36; POTASSIUM 4.1 mEQ/L (3.4-4.9); SODIUM 141 mEQ/L (135-145); TOTAL PROTEIN 4.6 g/dL (6.6-8.7)
[2017-02-11 04:06] LABS: PHOSPHORUS < 0.6 mg/dL (2.5-4.8)
[2017-02-11 04:10] LABS: BAND NEUTROPHILS % (MANUAL) 13 % (0-8); EOSINOPHILS % (MANUAL) 1 % (0-3); LYMPHOCYTES % (MANUAL) 15 % (20-45); NEUTROPHILS % (MANUAL) 71 % (45-75); TOTAL CELLS COUNTED 100
[2017-02-11 04:11] LABS: BASOPHILS % (MANUAL) 0 % (0-2); PLATELET ESTIMATE DECREASED; PLATELET MORPHOLOGY NORMAL
[2017-02-11] MEDS: Docusate 100mg tablet GT SCH ×2 (09:00→12:05)
[2017-02-11] MEDS: Analgesic Balm 15gm TOPIC SCH ×4 (09:26→20:53)
[2017-02-11] MEDS ORDERED: Sodium Phosphate 30 MM in NS 275 ML IVPB ONE (09:30)
--- NOTE | 2017-02-11 10:55 | General Progress Note ---
Assessment/Plan Status: unchanged, other - remains on vent Assessment/Plan Has acute respiratory distress- intubated in ICU ( Had long talk with daughter Gali 01/19 ) - Acute renal failure and hyperKalemia - Renal failure, likely diabetic nephropathy / HTN - Sepsis , Pneumonia, Respiratory failure and Hypoxia other - h/o Cellulitis in diabetic foot right LE - Decubitus ulcer - Dementia - Diabetes mellitus - Nonpressure ulcer to level of fascia right lateral ankle - S/P ORIF right ankle Plan: intubate - ICU Poor po - NGT ? PEG? Had permacath 01/30 HD in process now monitor WBCs Phos supplement Monitor renal parameters and Vanco level- ARTUR Kidney done last admission- unremarkable Adjust BP meds- Avoid Nephrotoxics- discussed with CM Per orders Subjective ROS Limited/Unobtainable: Yes Allergies: Coded Allergies: MORPHINE (Verified Adverse Reaction, Severe, PARADOXICAL REACTION, 10/08/12 ) Objective Last 24 Hour Vital Signs Date Time Temp Pulse Resp B/P Pulse Ox O2 Delivery O2 Flow Rate FiO2 02/11/17 10:00 95 20 86/44 90 Mechanical Ventilator 100 02/11/17 10:00 89/45 02/11/17 09:40 Mechanical Ventilator 100 02/11/17 09:13 104 28 100 02/11/17 09:00 109/56 02/11/17 08:55 91 26 80/40 90 Mechanical Ventilator 100 02/11/17 08:00 92 02/11/17 08:00 100 02/11/17 08:00 98.9 92 27 110/56 87 Mechanical Ventilator 100 02/11/17 08:00 110/65 02/11/17 07:55 Mechanical Ventilator 100 02/11/17 07:01 78 34 100 02/11/17 07:00 89 36 96/49 90 Mechanical Ventilator 100 02/11/17 07:00 96/49 02/11/17 06:45 90 32 98/39 90 Mechanical Ventilator 100 02/11/17 06:30 92 34 90/47 90 Mechanical Ventilator 100 02/11/17 06:23 117/48 02/11/17 06:15 98 33 117/48 90 Mechanical Ventilator 100 02/11/17 06:00 96 32 100/43 91 Mechanical Ventilator 100 02/11/17 06:00 100/43 02/11/17 05:45 92 31 111/49 93 Mechanical Ventilator 100 02/11/17 05:30 96 31 122/57 93 Mechanical Ventilator 100 02/11/17 05:20 90 34 100 02/11/17 05:15 81 29 128/42 94 Mechanical Ventilator 100 02/11/17 05:00 108/39 02/11/17 05:00 99.1 79 29 108/39 96 Mechanical Ventilator 100 02/11/17 04:45 79 28 93/35 96 Mechanical Ventilator 100 02/11/17 04:30 80 29 102/45 96 Mechanical Ventilator 100 02/11/17 04:15 77 28 95/71 97 Mechanical Ventilator 100 02/11/17 04:00 83 29 119/47 97 Mechanical Ventilator 100 02/11/17 04:00 83 02/11/17 04:00 119/47 02/11/17 04:00 100 02/11/17 03:45 83 32 111/49 97 Mechanical Ventilator 100 02/11/17 03:30 83 32 121/61 97 Mechanical Ventilator 100 02/11/17 03:15 86 33 136/34 96 Mechanical Ventilator 100 02/11/17 03:15 79 25 100 02/11/17 03:00 130/55 02/11/17 03:00 87 32 130/55 96 Mechanical Ventilator 100 02/11/17 02:45 86 32 126/48 96 Mechanical Ventilator 100 02/11/17 02:30 93 31 134/57 97 Mechanical Ventilator 100 02/11/17 02:15 89 31 124/46 97 Mechanical Ventilator 100 02/11/17 02:00 146/43 02/11/17 02:00 83 30 116/43 97 Mechanical Ventilator 100 02/11/17 01:45 84 32 95/79 96 Mechanical Ventilator 100 02/11/17 01:31 84 31 100 02/11/17 01:30 85 33 128/39 96 Mechanical Ventilator 100 02/11/17 01:15 83 29 126/45 97 Mechanical Ventilator 100 02/11/17 01:00 97/61 02/11/17 01:00 98.9 82 30 124/42 97 Mechanical Ventilator 100 02/11/17 00:45 82 29 122/35 97 Mechanical Ventilator 100 02/11/17 00:30 81 31 119/35 96 Mechanical Ventilator 100 02/11/17 00:15 81 30 104/33 96 Mechanical Ventilator 100 02/11/17 00:00 81 02/11/17 00:00 100 02/11/17 00:00 112/33 02/11/17 00:00 81 30 112/33 95 Mechanical Ventilator 100 02/10/17 23:45 82 29 115/42 96 Mechanical Ventilator 100 02/10/17 23:30 82 30 114/36 96 Mechanical Ventilator 100 02/10/17 23:17 80 29 100 02/10/17 23:15 83 29 111/41 96 Mechanical Ventilator 100 02/10/17 23:00 83 32 109/44 95 Mechanical Ventilator 100 02/10/17 23:00 109/44 02/10/17 22:45 90 29 116/38 94 Mechanical Ventilator 100 02/10/17 22:30 82 30 107/33 95 Mechanical Ventilator 100 02/10/17 22:15 83 29 112/42 96 Mechanical Ventilator 100 02/10/17 22:00 115/38 02/10/17 22:00 84 21 115/38 96 Mechanical Ventilator 100 02/10/17 21:45 84 21 79/30 96 Mechanical Ventilator 100 02/10/17 21:30 82 31 104/37 96 Mechanical Ventilator 100 02/10/17 21:23 93 32 100 02/10/17 21:15 81 31 93/32 95 Mechanical Ventilator 100 02/10/17 21:00 128/47 02/10/17 21:00 94 24 105/63 96 Mechanical Ventilator 100 02/10/17 20:45 83 30 133/50 96 Mechanical Ventilator 100 02/10/17 20:30 87 30 116/50 97 Mechanical Ventilator 100 02/10/17 20:15 81 30 120/44 97 Mechanical Ventilator 100 02/10/17 20:00 100 02/10/17 20:00 97.5 92 30 107/67 97 Mechanical Ventilator 100 02/10/17 20:00 92 02/10/17 20:00 99/42 02/10/17 19:06 80 30 100 02/10/17 19:00 82 25 110/38 96 Mechanical Ventilator 100 02/10/17 18:45 80 24 94/41 97 Mechanical Ventilator 100 02/10/17 18:30 80 27 116/35 96 Mechanical Ventilator 100 02/10/17 18:15 84 25 120/30 96 Mechanical Ventilator 100 02/10/17 18:00 84 24 123/44 96 Mechanical Ventilator 100 02/10/17 17:45 80 31 84/44 95 Mechanical Ventilator 100 02/10/17 17:30 81 29 96/35 95 Mechanical Ventilator 100 02/10/17 17:15 80 24 95/33 95 Mechanical Ventilator 100 02/10/17 17:00 86 26 86/32 94 Mechanical Ventilator 100 02/10/17 16:45 86 26 80/33 95 Mechanical Ventilator 100 02/10/17 16:30 89 25 101/30 94 Mechanical Ventilator 100 02/10/17 16:15 90 26 93/34 90 Mechanical Ventilator 100 02/10/17 16:00 98.5 92 24 111/46 89 Mechanical Ventilator 100 02/10/17 16:00 100 02/10/17 16:00 87 02/10/17 15:45 91 27 104/43 90 Mechanical Ventilator 100 02/10/17 15:30 90 28 108/35 90 Mechanical Ventilator 100 02/10/17 15:15 89 27 114/37 92 Mechanical Ventilator 100 02/10/17 15:00 86 27 104/34 93 Mechanical Ventilator 100 02/10/17 14:52 103 33 100 02/10/17 14:45 93 28 101/35 93 Mechanical Ventilator 100 02/10/17 14:30 90 27 98/36 95 Mechanical Ventilator 100 02/10/17 14:15 84 27 91/36 95 Mechanical Ventilator 100 02/10/17 14:00 87 30 108/38 95 Mechanical Ventilator 100 02/10/17 13:45 89 26 110/31 94 Mechanical Ventilator 100 02/10/17 13:30 86 28 101/46 92 Mechanical Ventilator 100 02/10/17 13:22 110 34 100 02/10/17 13:15 88 26 89/35 90 Mechanical Ventilator 100 02/10/17 13:00 99 30 90/47 91 Mechanical Ventilator 100 02/10/17 12:45 100 30 116/31 91 Mechanical Ventilator 100 02/10/17 12:30 93 30 105/37 90 Mechanical Ventilator 100 02/10/17 12:15 98 24 104/45 90 Mechanical Ventilator 100 02/10/17 12:00 100 02/10/17 12:00 98.1 100 22 100/47 90 Mechanical Ventilator 100 02/10/17 12:00 104 02/10/17 11:45 102 24 100/47 91 Mechanical Ventilator 100 02/10/17 11:30 93 24 103/41 91 Mechanical Ventilator 100 02/10/17 11:17 124 33 100 02/10/17 11:15 97 24 119/32 94 Mechanical Ventilator 100 02/10/17 11:00 93 24 106/44 94 Mechanical Ventilator 100 Intake and Output 02/10/17 02/11/17 19:00 07:00 Intake Total 804.06 ml 251.25 ml Output Total 0 ml 0 ml Balance 804.06 ml 251.25 ml Free Water 20 ml IV Total 259.06 ml 86.25 ml Tube Feeding 205 ml 165 ml Blood Product 270 ml Other 50 ml Output Urine Total 0 ml 0 ml # Bowel Movements 1 Laboratory Tests 02/11/17 02:50: Sodium Level 141, Potassium Level 4.1, Chloride Level 98, Carbon Dioxide Level 31H, Anion Gap 12, Blood Urea Nitrogen 72H, Creatinine 4.2H, Estimat Glomerular Filtration Rate , Glucose Level 174H, Calcium Level 9.2, Phosphorus Level < 0.6* L, Magnesium Level 2.0, Total Bilirubin 1.0, Aspartate Amino Transf (AST/SGOT) 30, Alanine Aminotransferase (ALT/SGPT) 37H, Alkaline Phosphatase 296H, Total Protein 4.6L, Albumin 1.8L, Globulin 2.8, Albumin/Globulin Ratio 0.6L 02/11/17 03:00: White Blood Count 24.0*H, Red Blood Count 2.96L, Hemoglobin 8.8L, Hematocrit 26.7L, Mean Corpuscular Volume 90, Mean Corpuscular Hemoglobin 29.8, Mean Corpuscular Hemoglobin Concent 33.1, Red Cell Distribution Width 15.6H, Platelet Count 29L, Mean Platelet Volume 9.2, Neutrophils (%) (Auto) , Lymphocytes (%) (Auto) , Monocytes (%) (Auto) , Eosinophils (%) (Auto) , Basophils (%) (Auto) , Differential Total Cells Counted 100, Neutrophils % ( Manual) 71, Lymphocytes % (Manual) 15L, Monocytes % (Manual) 0L, Eosinophils % ( Manual) 1, Basophils % (Manual) 0, Band Neutrophils 13H, Platelet Estimate DecreasedL, Platelet Morphology Normal, Red Blood Cell Morphology Normal Height (Feet): 5 Height (Inches): 1.00 Weight (Pounds): 200 General Appearance: mild distress Cardiovascular: other - variable Respiratory/Chest: decreased breath sounds Abdomen: distended Objective other PE not changed FOULADIAN,BERTRAM Feb 11, 2017 10:55
[2017-02-11] MEDS: Pantoprazole Inj IVP SCH ×2 (10:59→20:53)
[2017-02-11 11:29] LABS: MEAN CORPUSCULAR HEMOGLOBIN 29.8 PG (27.0-31.0); MEAN CORPUSCULAR HGB CONC 32.5 G/DL (32.0-36.0); MEAN CORPUSCULAR VOLUME 92 FL (80-99); MEAN PLATELET VOLUME 7.6 FL (6.5-10.1); PLATELET COUNT 33 K/UL (150-450); RED BLOOD COUNT 3.28 M/UL (4.20-5.40); RED CELL DISTRIBUTION WIDTH 16.3 % (11.6-14.8)
[2017-02-11 11:32] LABS: WHITE BLOOD COUNT 27.1 K/UL (4.8-10.8)
--- NOTE | 2017-02-11 11:39 | General Progress Note ---
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 bilateral right greater than left pleural effusions and mediastinal lymphadenopathy - she is a poor candidate for biopsy and has a poor prognosis # Anemia 2/2 chronic disease - s/p multiple units of blood # Leukocytosis - related to sepsis and underlying infection, is on antibiotics # Respiratory failure s/p intubation # Respiratory acidosis # Renal failure # ALOC # Sepsis Recs: - Transfuse to hgb goal >7, plt goal >20k if bleeding --> conservative management - She has DIC at this time - She is off heparin, plavix, aspirin - Agree to administer FFP if INR >2 - Does not require a biopsy as has poor prognosis and poor outcome at this time - NG feeds at maximal rate - Appreciate consultation! continue to follow Subjective Constitutional: Reports: no symptoms HEENT: Reports: no symptoms Cardiovascular: Reports: no symptoms Respiratory: Reports: no symptoms Gastrointestinal/Abdominal: Reports: no symptoms Genitourinary: Reports: no symptoms 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: Reports: anxiety Endocrine: Reports: no symptoms Hematologic/Lymphatic: Reports: anemia Allergies: Coded Allergies: MORPHINE (Verified Adverse Reaction, Severe, PARADOXICAL REACTION, 10/08/12 ) Subjective coded this am, has received atropine, remains critically ill Objective Last 24 Hour Vital Signs Date Time Temp Pulse Resp B/P Pulse Ox O2 Delivery O2 Flow Rate FiO2 02/11/17 11:15 99 28 100 02/11/17 11:00 104 20 141/56 98 Mechanical Ventilator 100 02/11/17 11:00 141/56 02/11/17 10:00 95 20 86/44 90 Mechanical Ventilator 100 02/11/17 10:00 89/45 02/11/17 09:40 Mechanical Ventilator 100 02/11/17 09:13 104 28 100 02/11/17 09:00 109/56 02/11/17 08:55 91 26 80/40 90 Mechanical Ventilator 100 02/11/17 08:00 92 02/11/17 08:00 100 02/11/17 08:00 98.9 92 27 110/56 87 Mechanical Ventilator 100 02/11/17 08:00 110/65 02/11/17 07:55 Mechanical Ventilator 100 02/11/17 07:01 78 34 100 02/11/17 07:00 89 36 96/49 90 Mechanical Ventilator 100 02/11/17 07:00 96/49 02/11/17 06:45 90 32 98/39 90 Mechanical Ventilator 100 02/11/17 06:30 92 34 90/47 90 Mechanical Ventilator 100 02/11/17 06:23 117/48 02/11/17 06:15 98 33 117/48 90 Mechanical Ventilator 100 02/11/17 06:00 96 32 100/43 91 Mechanical Ventilator 100 02/11/17 06:00 100/43 02/11/17 05:45 92 31 111/49 93 Mechanical Ventilator 100 02/11/17 05:30 96 31 122/57 93 Mechanical Ventilator 100 02/11/17 05:20 90 34 100 02/11/17 05:15 81 29 128/42 94 Mechanical Ventilator 100 02/11/17 05:00 108/39 02/11/17 05:00 99.1 79 29 108/39 96 Mechanical Ventilator 100 02/11/17 04:45 79 28 93/35 96 Mechanical Ventilator 100 02/11/17 04:30 80 29 102/45 96 Mechanical Ventilator 100 02/11/17 04:15 77 28 95/71 97 Mechanical Ventilator 100 02/11/17 04:00 83 29 119/47 97 Mechanical Ventilator 100 02/11/17 04:00 83 02/11/17 04:00 119/47 02/11/17 04:00 100 02/11/17 03:45 83 32 111/49 97 Mechanical Ventilator 100 02/11/17 03:30 83 32 121/61 97 Mechanical Ventilator 100 02/11/17 03:15 86 33 136/34 96 Mechanical Ventilator 100 02/11/17 03:15 79 25 100 02/11/17 03:00 130/55 02/11/17 03:00 87 32 130/55 96 Mechanical Ventilator 100 02/11/17 02:45 86 32 126/48 96 Mechanical Ventilator 100 02/11/17 02:30 93 31 134/57 97 Mechanical Ventilator 100 02/11/17 02:15 89 31 124/46 97 Mechanical Ventilator 100 02/11/17 02:00 146/43 02/11/17 02:00 83 30 116/43 97 Mechanical Ventilator 100 02/11/17 01:45 84 32 95/79 96 Mechanical Ventilator 100 02/11/17 01:31 84 31 100 02/11/17 01:30 85 33 128/39 96 Mechanical Ventilator 100 02/11/17 01:15 83 29 126/45 97 Mechanical Ventilator 100 02/11/17 01:00 97/61 02/11/17 01:00 98.9 82 30 124/42 97 Mechanical Ventilator 100 02/11/17 00:45 82 29 122/35 97 Mechanical Ventilator 100 02/11/17 00:30 81 31 119/35 96 Mechanical Ventilator 100 02/11/17 00:15 81 30 104/33 96 Mechanical Ventilator 100 02/11/17 00:00 81 02/11/17 00:00 100 02/11/17 00:00 112/33 02/11/17 00:00 81 30 112/33 95 Mechanical Ventilator 100 02/10/17 23:45 82 29 115/42 96 Mechanical Ventilator 100 02/10/17 23:30 82 30 114/36 96 Mechanical Ventilator 100 02/10/17 23:17 80 29 100 02/10/17 23:15 83 29 111/41 96 Mechanical Ventilator 100 02/10/17 23:00 83 32 109/44 95 Mechanical Ventilator 100 02/10/17 23:00 109/44 02/10/17 22:45 90 29 116/38 94 Mechanical Ventilator 100 02/10/17 22:30 82 30 107/33 95 Mechanical Ventilator 100 02/10/17 22:15 83 29 112/42 96 Mechanical Ventilator 100 02/10/17 22:00 115/38 02/10/17 22:00 84 21 115/38 96 Mechanical Ventilator 100 02/10/17 21:45 84 21 79/30 96 Mechanical Ventilator 100 02/10/17 21:30 82 31 104/37 96 Mechanical Ventilator 100 02/10/17 21:23 93 32 100 02/10/17 21:15 81 31 93/32 95 Mechanical Ventilator 100 02/10/17 21:00 128/47 02/10/17 21:00 94 24 105/63 96 Mechanical Ventilator 100 02/10/17 20:45 83 30 133/50 96 Mechanical Ventilator 100 02/10/17 20:30 87 30 116/50 97 Mechanical Ventilator 100 02/10/17 20:15 81 30 120/44 97 Mechanical Ventilator 100 02/10/17 20:00 100 02/10/17 20:00 97.5 92 30 107/67 97 Mechanical Ventilator 100 02/10/17 20:00 92 02/10/17 20:00 99/42 02/10/17 19:06 80 30 100 02/10/17 19:00 82 25 110/38 96 Mechanical Ventilator 100 02/10/17 18:45 80 24 94/41 97 Mechanical Ventilator 100 02/10/17 18:30 80 27 116/35 96 Mechanical Ventilator 100 02/10/17 18:15 84 25 120/30 96 Mechanical Ventilator 100 02/10/17 18:00 84 24 123/44 96 Mechanical Ventilator 100 02/10/17 17:45 80 31 84/44 95 Mechanical Ventilator 100 02/10/17 17:30 81 29 96/35 95 Mechanical Ventilator 100 02/10/17 17:15 80 24 95/33 95 Mechanical Ventilator 100 02/10/17 17:00 86 26 86/32 94 Mechanical Ventilator 100 02/10/17 16:45 86 26 80/33 95 Mechanical Ventilator 100 02/10/17 16:30 89 25 101/30 94 Mechanical Ventilator 100 02/10/17 16:15 90 26 93/34 90 Mechanical Ventilator 100 02/10/17 16:00 98.5 92 24 111/46 89 Mechanical Ventilator 100 02/10/17 16:00 100 02/10/17 16:00 87 02/10/17 15:45 91 27 104/43 90 Mechanical Ventilator 100 02/10/17 15:30 90 28 108/35 90 Mechanical Ventilator 100 02/10/17 15:15 89 27 114/37 92 Mechanical Ventilator 100 02/10/17 15:00 86 27 104/34 93 Mechanical Ventilator 100 02/10/17 14:52 103 33 100 02/10/17 14:45 93 28 101/35 93 Mechanical Ventilator 100 02/10/17 14:30 90 27 98/36 95 Mechanical Ventilator 100 02/10/17 14:15 84 27 91/36 95 Mechanical Ventilator 100 02/10/17 14:00 87 30 108/38 95 Mechanical Ventilator 100 02/10/17 13:45 89 26 110/31 94 Mechanical Ventilator 100 02/10/17 13:30 86 28 101/46 92 Mechanical Ventilator 100 02/10/17 13:22 110 34 100 02/10/17 13:15 88 26 89/35 90 Mechanical Ventilator 100 02/10/17 13:00 99 30 90/47 91 Mechanical Ventilator 100 02/10/17 12:45 100 30 116/31 91 Mechanical Ventilator 100 02/10/17 12:30 93 30 105/37 90 Mechanical Ventilator 100 02/10/17 12:15 98 24 104/45 90 Mechanical Ventilator 100 02/10/17 12:00 100 02/10/17 12:00 98.1 100 22 100/47 90 Mechanical Ventilator 100 02/10/17 12:00 104 02/10/17 11:45 102 24 100/47 91 Mechanical Ventilator 100 Intake and Output 02/10/17 02/11/17 18:59 06:59 Intake Total 563.44 ml 534.37 ml Output Total 0 ml 0 ml Balance 563.44 ml 534.37 ml Free Water 20 ml IV Total 268.44 ml 84.37 ml Tube Feeding 225 ml 180 ml Blood Product 270 ml Other 50 ml Output Urine Total 0 ml 0 ml # Bowel Movements 1 Laboratory Tests 02/11/17 02:50: Sodium Level 141, Potassium Level 4.1, Chloride Level 98, Carbon Dioxide Level 31H, Anion Gap 12, Blood Urea Nitrogen 72H, Creatinine 4.2H, Estimat Glomerular Filtration Rate , Glucose Level 174H, Calcium Level 9.2, Phosphorus Level < 0.6* L, Magnesium Level 2.0, Total Bilirubin 1.0, Aspartate Amino Transf (AST/SGOT) 30, Alanine Aminotransferase (ALT/SGPT) 37H, Alkaline Phosphatase 296H, Total Protein 4.6L, Albumin 1.8L, Globulin 2.8, Albumin/Globulin Ratio 0.6L 02/11/17 03:00: White Blood Count 24.0*H, Red Blood Count 2.96L, Hemoglobin 8.8L, Hematocrit 26.7L, Mean Corpuscular Volume 90, Mean Corpuscular Hemoglobin 29.8, Mean Corpuscular Hemoglobin Concent 33.1, Red Cell Distribution Width 15.6H, Platelet Count 29L, Mean Platelet Volume 9.2, Neutrophils (%) (Auto) , Lymphocytes (%) (Auto) , Monocytes (%) (Auto) , Eosinophils (%) (Auto) , Basophils (%) (Auto) , Differential Total Cells Counted 100, Neutrophils % ( Manual) 71, Lymphocytes % (Manual) 15L, Monocytes % (Manual) 0L, Eosinophils % ( Manual) 1, Basophils % (Manual) 0, Band Neutrophils 13H, Platelet Estimate DecreasedL, Platelet Morphology Normal, Red Blood Cell Morphology Normal 02/11/17 11:05: Sodium Level [Pending], Potassium Level [Pending], Chloride Level [Pending], Carbon Dioxide Level [Pending], Blood Urea Nitrogen [Pending], Creatinine [ Pending], Estimat Glomerular Filtration Rate [Pending], Glucose Level [Pending] , Calcium Level [Pending], White Blood Count 27.1*H, Red Blood Count 3.28L, Hemoglobin 9.8L, Hematocrit 30.1L, Mean Corpuscular Volume 92, Mean Corpuscular Hemoglobin 29.8, Mean Corpuscular Hemoglobin Concent 32.5, Red Cell Distribution Width 16.3H, Platelet Count 33L, Mean Platelet Volume 7.6, Neutrophils (%) (Auto) , Lymphocytes (%) (Auto) , Monocytes (%) (Auto) , Eosinophils (%) (Auto) , Basophils (%) (Auto) , Neutrophils % (Manual) [Pending] , Lymphocytes % (Manual) [Pending] Height (Feet): 5 Height (Inches): 1.00 Weight (Pounds): 200 General Appearance: alert EENT: normal ENT inspection Neck: supple Cardiovascular: normal rate Respiratory/Chest: normal breath sounds Abdomen: no mass Genitourinary/Rectal: heme negative stool Extremities: non-tender Edema: 1+ Leg (L), 1+ Leg (R) Edema: mild edema Neurologic: alert Skin: normal pigmentation Mariano Ortiz Feb 11, 2017 11:39
[2017-02-11 11:46] LABS: ANION GAP 16 (5-15); CALCIUM 8.3 mg/dL (8.6-10.2); CARBON DIOXIDE 25 mEQ/L (20-30); CHLORIDE 101 mEQ/L (98-107); CREATININE 3.1 mg/dL (0.5-0.9); HEMOLYSIS 11; POTASSIUM 3.8 mEQ/L (3.4-4.9); SODIUM 142 mEQ/L (135-145)
[2017-02-11 12:30] LABS: ANISOCYTOSIS 1+; BAND NEUTROPHILS % (MANUAL) 0 % (0-8); BASOPHILS % (MANUAL) 0 % (0-2); EOSINOPHILS % (MANUAL) 2 % (0-3); HYPOCHROMASIA 2+; LYMPHOCYTES % (MANUAL) 7 % (20-45); MYELOCYTES % 1 % (0-0); NEUTROPHILS % (MANUAL) 80 % (45-75); NUCLEATED RED BLOOD CELLS 7 /100 WBC; PLATELET ESTIMATE DECREASED; PLATELET MORPHOLOGY NORMAL; SPHEROCYTES 2+; TOTAL CELLS COUNTED 100
--- NOTE | 2017-02-11 12:44 | Critical Care Progress Note ---
Assessment/Plan Assessment/Plan hypoxemia respiratory failure respiratory acidosis pulmonary infiltrates thrombocytopenia renal failure ALOC chronic encephalopathy sepsis leukocytosis pulmonary infiltrates ARDS likely DIC likely s/p transfusion atrial fibrillation hypotension shock PLAN long d/w son; DNR off heparin, plavix, aspirin no chance of recovery follow up labs cards evaluation; afib controlled levophed and pressors as needed monitor renal function on HD antibiotics noted unable to taper fio2 hyperventilate follow up abg prognosis poor; possible terminal extubation medications/laboratory data/nursing notes/ICU care reviewed in detail note reviewed and edited care discussed with RN and RT ICU time spent 45 minutes Critical Care - Subjective Interval Events: doing poorly hypotensive hypoxemic d/w son DNR wants possible terminal extubation I&O: Intake and Output 02/10/17 02/11/17 18:59 06:59 Intake Total 563.44 ml 534.37 ml Output Total 0 ml 0 ml Balance 563.44 ml 534.37 ml Free Water 20 ml IV Total 268.44 ml 84.37 ml Tube Feeding 225 ml 180 ml Blood Product 270 ml Other 50 ml Output Urine Total 0 ml 0 ml # Bowel Movements 1 Critical Care - Objective ET-Tube: 7.0 ET Position: 22 Last 24 Hour Vital Signs Date Time Temp Pulse Resp B/P Pulse Ox O2 Delivery O2 Flow Rate FiO2 02/11/17 12:30 86 20 104/55 97 Mechanical Ventilator 100 02/11/17 12:15 111 22 106/41 98 Mechanical Ventilator 100 02/11/17 12:04 100 02/11/17 12:00 104 02/11/17 12:00 98.1 100 20 104/57 98 Mechanical Ventilator 100 02/11/17 11:58 101/65 02/11/17 11:45 110 20 84/38 98 Mechanical Ventilator 100 02/11/17 11:30 115 20 73/13 98 Mechanical Ventilator 100 02/11/17 11:15 89 20 162/53 98 Mechanical Ventilator 100 02/11/17 11:15 99 28 100 02/11/17 11:00 104 20 141/56 98 Mechanical Ventilator 100 02/11/17 11:00 141/56 02/11/17 10:00 95 20 86/44 90 Mechanical Ventilator 100 02/11/17 10:00 89/45 02/11/17 09:40 Mechanical Ventilator 100 02/11/17 09:13 104 28 100 02/11/17 09:00 109/56 02/11/17 08:55 91 26 80/40 90 Mechanical Ventilator 100 02/11/17 08:00 92 02/11/17 08:00 100 02/11/17 08:00 98.9 92 27 110/56 87 Mechanical Ventilator 100 02/11/17 08:00 110/65 02/11/17 07:55 Mechanical Ventilator 100 02/11/17 07:01 78 34 100 02/11/17 07:00 89 36 96/49 90 Mechanical Ventilator 100 02/11/17 07:00 96/49 02/11/17 06:45 90 32 98/39 90 Mechanical Ventilator 100 02/11/17 06:30 92 34 90/47 90 Mechanical Ventilator 100 02/11/17 06:23 117/48 02/11/17 06:15 98 33 117/48 90 Mechanical Ventilator 100 02/11/17 06:00 96 32 100/43 91 Mechanical Ventilator 100 02/11/17 06:00 100/43 02/11/17 05:45 92 31 111/49 93 Mechanical Ventilator 100 02/11/17 05:30 96 31 122/57 93 Mechanical Ventilator 100 02/11/17 05:20 90 34 100 02/11/17 05:15 81 29 128/42 94 Mechanical Ventilator 100 02/11/17 05:00 108/39 02/11/17 05:00 99.1 79 29 108/39 96 Mechanical Ventilator 100 02/11/17 04:45 79 28 93/35 96 Mechanical Ventilator 100 02/11/17 04:30 80 29 102/45 96 Mechanical Ventilator 100 02/11/17 04:15 77 28 95/71 97 Mechanical Ventilator 100 02/11/17 04:00 83 29 119/47 97 Mechanical Ventilator 100 02/11/17 04:00 83 02/11/17 04:00 119/47 02/11/17 04:00 100 02/11/17 03:45 83 32 111/49 97 Mechanical Ventilator 100 02/11/17 03:30 83 32 121/61 97 Mechanical Ventilator 100 02/11/17 03:15 86 33 136/34 96 Mechanical Ventilator 100 02/11/17 03:15 79 25 100 02/11/17 03:00 130/55 02/11/17 03:00 87 32 130/55 96 Mechanical Ventilator 100 02/11/17 02:45 86 32 126/48 96 Mechanical Ventilator 100 02/11/17 02:30 93 31 134/57 97 Mechanical Ventilator 100 02/11/17 02:15 89 31 124/46 97 Mechanical Ventilator 100 02/11/17 02:00 146/43 02/11/17 02:00 83 30 116/43 97 Mechanical Ventilator 100 02/11/17 01:45 84 32 95/79 96 Mechanical Ventilator 100 02/11/17 01:31 84 31 100 02/11/17 01:30 85 33 128/39 96 Mechanical Ventilator 100 02/11/17 01:15 83 29 126/45 97 Mechanical Ventilator 100 02/11/17 01:00 97/61 02/11/17 01:00 98.9 82 30 124/42 97 Mechanical Ventilator 100 02/11/17 00:45 82 29 122/35 97 Mechanical Ventilator 100 02/11/17 00:30 81 31 119/35 96 Mechanical Ventilator 100 02/11/17 00:15 81 30 104/33 96 Mechanical Ventilator 100 02/11/17 00:00 81 02/11/17 00:00 100 02/11/17 00:00 112/33 02/11/17 00:00 81 30 112/33 95 Mechanical Ventilator 100 02/10/17 23:45 82 29 115/42 96 Mechanical Ventilator 100 02/10/17 23:30 82 30 114/36 96 Mechanical Ventilator 100 02/10/17 23:17 80 29 100 02/10/17 23:15 83 29 111/41 96 Mechanical Ventilator 100 02/10/17 23:00 83 32 109/44 95 Mechanical Ventilator 100 02/10/17 23:00 109/44 02/10/17 22:45 90 29 116/38 94 Mechanical Ventilator 100 02/10/17 22:30 82 30 107/33 95 Mechanical Ventilator 100 02/10/17 22:15 83 29 112/42 96 Mechanical Ventilator 100 02/10/17 22:00 115/38 02/10/17 22:00 84 21 115/38 96 Mechanical Ventilator 100 02/10/17 21:45 84 21 79/30 96 Mechanical Ventilator 100 02/10/17 21:30 82 31 104/37 96 Mechanical Ventilator 100 02/10/17 21:23 93 32 100 02/10/17 21:15 81 31 93/32 95 Mechanical Ventilator 100 02/10/17 21:00 128/47 4/11/17 21:00 94 24 105/63 96 Mechanical Ventilator 100 02/10/17 20:45 83 30 133/50 96 Mechanical Ventilator 100 02/10/17 20:30 87 30 116/50 97 Mechanical Ventilator 100 02/10/17 20:15 81 30 120/44 97 Mechanical Ventilator 100 02/10/17 20:00 100 02/10/17 20:00 97.5 92 30 107/67 97 Mechanical Ventilator 100 02/10/17 20:00 92 02/10/17 20:00 99/42 02/10/17 19:06 80 30 100 02/10/17 19:00 82 25 110/38 96 Mechanical Ventilator 100 02/10/17 18:45 80 24 94/41 97 Mechanical Ventilator 100 02/10/17 18:30 80 27 116/35 96 Mechanical Ventilator 100 02/10/17 18:15 84 25 120/30 96 Mechanical Ventilator 100 02/10/17 18:00 84 24 123/44 96 Mechanical Ventilator 100 02/10/17 17:45 80 31 84/44 95 Mechanical Ventilator 100 02/10/17 17:30 81 29 96/35 95 Mechanical Ventilator 100 02/10/17 17:15 80 24 95/33 95 Mechanical Ventilator 100 02/10/17 17:00 86 26 86/32 94 Mechanical Ventilator 100 02/10/17 16:45 86 26 80/33 95 Mechanical Ventilator 100 02/10/17 16:30 89 25 101/30 94 Mechanical Ventilator 100 02/10/17 16:15 90 26 93/34 90 Mechanical Ventilator 100 02/10/17 16:00 98.5 92 24 111/46 89 Mechanical Ventilator 100 02/10/17 16:00 100 02/10/17 16:00 87 02/10/17 15:45 91 27 104/43 90 Mechanical Ventilator 100 02/10/17 15:30 90 28 108/35 90 Mechanical Ventilator 100 02/10/17 15:15 89 27 114/37 92 Mechanical Ventilator 100 02/10/17 15:00 86 27 104/34 93 Mechanical Ventilator 100 02/10/17 14:52 103 33 100 02/10/17 14:45 93 28 101/35 93 Mechanical Ventilator 100 02/10/17 14:30 90 27 98/36 95 Mechanical Ventilator 100 02/10/17 14:15 84 27 91/36 95 Mechanical Ventilator 100 02/10/17 14:00 87 30 108/38 95 Mechanical Ventilator 100 02/10/17 13:45 89 26 110/31 94 Mechanical Ventilator 100 02/10/17 13:30 86 28 101/46 92 Mechanical Ventilator 100 02/10/17 13:22 110 34 100 02/10/17 13:15 88 26 89/35 90 Mechanical Ventilator 100 02/10/17 13:00 99 30 90/47 91 Mechanical Ventilator 100 02/10/17 12:45 100 30 116/31 91 Mechanical Ventilator 100 Labs: Labs Test 02/08/17 17:20 02/08/17 18:15 02/09/17 03:11 02/09/17 04:30 Haptoglobin < 29 mg/dL (30-200) Fibrinogen 313 mg/dL (200-400) Iron Level 166 ug/dL (37-145) Total Iron Binding Capacity 275 ug/dL (250-400) Percent Iron Saturation 60 % (15-50) Unsaturated Iron Binding 109 ug/dL (112-346) Total Bilirubin 1.5 mg/dL (0.0-1.2) Direct Bilirubin 0.9 mg/dL (0.1-0.3) Vitamin B12 Level 1385 pg/mL (211-946) Folate 3.1 ng/mL (>3.0) HIV (1&2) Antibody Rapid Negative (NEGATIVE) Stool Occult Blood Negative (NEGATIVE) Negative (NEGATIVE) Arterial Blood pH 7.212 (7.350-7.450) Arterial Blood Partial Pressure CO2 78.2 mmHg (35.0-45.0) Arterial Blood Partial Pressure O2 53.9 mmHg (75.0-100.0) Arterial Blood HCO3 30.7 mmol/L (22.0-26.0) Arterial Blood Oxygen Saturation 83.2 % (92.0-98.0) Arterial Blood Base Excess 2.0 Levy Test Positive Test 02/09/17 04:55 02/09/17 06:36 02/10/17 08:20 02/10/17 10:16 White Blood Count 17.7 K/UL (4.8-10.8) 20.4 K/UL (4.8-10.8) Red Blood Count 2.70 M/UL (4.20-5.40) 2.51 M/UL (4.20-5.40) Hemoglobin 8.2 G/DL (12.0-16.0) 7.5 G/DL (12.0-16.0) Hematocrit 24.6 % (37.0-47.0) 23.2 % (37.0-47.0) Mean Corpuscular Volume 91 FL (80-99) 92 FL (80-99) Mean Corpuscular Hemoglobin 30.2 PG (27.0-31.0) 29.8 PG (27.0-31.0) Mean Corpuscular Hemoglobin Concent 33.1 G/DL (32.0-36.0) 32.3 G/DL (32.0-36.0) Red Cell Distribution Width 16.4 % (11.6-14.8) 16.4 % (11.6-14.8) Platelet Count 27 K/UL (150-450) 33 K/UL (150-450) Mean Platelet Volume 9.4 FL (6.5-10.1) 12.3 FL (6.5-10.1) Neutrophils (%) (Auto) % (45.0-75.0) % (45.0-75.0) Lymphocytes (%) (Auto) % (20.0-45.0) % (20.0-45.0) Monocytes (%) (Auto) % (1.0-10.0) % (1.0-10.0) Eosinophils (%) (Auto) % (0.0-3.0) % (0.0-3.0) Basophils (%) (Auto) % (0.0-2.0) % (0.0-2.0) Differential Total Cells Counted 100 100 Neutrophils % (Manual) 71 % (45-75) 76 % (45-75) Lymphocytes % (Manual) 16 % (20-45) 15 % (20-45) Monocytes % (Manual) 4 % (1-10) 3 % (1-10) Eosinophils % (Manual) 2 % (0-3) 0 % (0-3) Basophils % (Manual) 0 % (0-2) 0 % (0-2) Band Neutrophils 7 % (0-8) 6 % (0-8) Nucleated Red Blood Cells 2 /100 WBC 9 /100 WBC Platelet Estimate Decreased Decreased Platelet Morphology Normal Normal Hypochromasia 1+ 1+ Anisocytosis 1+ 1+ Sodium Level 143 mEQ/L (135-145) 141 mEQ/L (135-145) Potassium Level 4.4 mEQ/L (3.4-4.9) 3.6 mEQ/L (3.4-4.9) Chloride Level 97 mEQ/L (98-107) 97 mEQ/L (98-107) Carbon Dioxide Level 28 mEQ/L (20-30) 28 mEQ/L (20-30) Anion Gap 18 (5-15) 16 (5-15) Blood Urea Nitrogen 76 mg/dL (7-23) 52 mg/dL (7-23) Creatinine 5.1 mg/dL (0.5-0.9) 3.7 mg/dL (0.5-0.9) Estimat Glomerular Filtration Rate mL/min (>60) mL/min (>60) Glucose Level 168 mg/dL (74-106) 234 mg/dL (74-106) Calcium Level 8.7 mg/dL (8.6-10.2) 8.6 mg/dL (8.6-10.2) Phosphorus Level 2.0 mg/dL (2.5-4.8) Total Bilirubin 1.2 mg/dL (0.0-1.2) 0.9 mg/dL (0.0-1.2) Direct Bilirubin 0.6 mg/dL (0.1-0.3) Aspartate Amino Transf (AST/SGOT) 164 U/L (5-40) 41 U/L (5-40) Alanine Aminotransferase (ALT/SGPT) 95 U/L (3-33) 52 U/L (3-33) Alkaline Phosphatase 269 U/L (35-104) 256 U/L (35-104) C-Reactive Protein, Quantitative 33.9 mg/dL (< 0.5) Pro-B-Type Natriuretic Peptide 96580 pg/mL (0-450) Total Protein 4.8 g/dL (6.6-8.7) 4.6 g/dL (6.6-8.7) Albumin 2.2 g/dL (3.5-5.2) 2.1 g/dL (3.5-5.2) Globulin 2.6 g/dL 2.5 g/dL Albumin/Globulin Ratio 0.8 (1.0-2.7) 0.8 (1.0-2.7) Arterial Blood pH 7.188 (7.350-7.450) 7.300 (7.350-7.450) Arterial Blood Partial Pressure CO2 68.4 mmHg (35.0-45.0) 69.0 mmHg (35.0-45.0) Arterial Blood Partial Pressure O2 < 64.0 mmHg (75.0-100.0) 57.0 mmHg (75.0-100.0) Arterial Blood HCO3 25.4 mmol/L (22.0-26.0) 33.0 mmol/L (22.0-26.0) Arterial Blood Oxygen Saturation 63.9 % (92.0-98.0) 89.0 % (92.0-98.0) Arterial Blood Base Excess -3.0 6 Levy Test Positive Positive Test 02/11/17 02:50 02/11/17 03:00 02/11/17 11:05 Sodium Level 141 mEQ/L (135-145) 142 mEQ/L (135-145) Potassium Level 4.1 mEQ/L (3.4-4.9) 3.8 mEQ/L (3.4-4.9) Chloride Level 98 mEQ/L (98-107) 101 mEQ/L (98-107) Carbon Dioxide Level 31 mEQ/L (20-30) 25 mEQ/L (20-30) Anion Gap 12 (5-15) 16 (5-15) Blood Urea Nitrogen 72 mg/dL (7-23) 47 mg/dL (7-23) Creatinine 4.2 mg/dL (0.5-0.9) 3.1 mg/dL (0.5-0.9) Estimat Glomerular Filtration Rate mL/min (>60) mL/min (>60) Glucose Level 174 mg/dL (74-106) 174 mg/dL (74-106) Calcium Level 9.2 mg/dL (8.6-10.2) 8.3 mg/dL (8.6-10.2) Phosphorus Level < 0.6 mg/dL (2.5-4.8) Magnesium Level 2.0 mg/dL (1.7-2.5) Total Bilirubin 1.0 mg/dL (0.0-1.2) Aspartate Amino Transf (AST/SGOT) 30 U/L (5-40) Alanine Aminotransferase (ALT/SGPT) 37 U/L (3-33) Alkaline Phosphatase 296 U/L (35-104) Total Protein 4.6 g/dL (6.6-8.7) Albumin 1.8 g/dL (3.5-5.2) Globulin 2.8 g/dL Albumin/Globulin Ratio 0.6 (1.0-2.7) White Blood Count 24.0 K/UL (4.8-10.8) 27.1 K/UL (4.8-10.8) Red Blood Count 2.96 M/UL (4.20-5.40) 3.28 M/UL (4.20-5.40) Hemoglobin 8.8 G/DL (12.0-16.0) 9.8 G/DL (12.0-16.0) Hematocrit 26.7 % (37.0-47.0) 30.1 % (37.0-47.0) Mean Corpuscular Volume 90 FL (80-99) 92 FL (80-99) Mean Corpuscular Hemoglobin 29.8 PG (27.0-31.0) 29.8 PG (27.0-31.0) Mean Corpuscular Hemoglobin Concent 33.1 G/DL (32.0-36.0) 32.5 G/DL (32.0-36.0) Red Cell Distribution Width 15.6 % (11.6-14.8) 16.3 % (11.6-14.8) Platelet Count 29 K/UL (150-450) 33 K/UL (150-450) Mean Platelet Volume 9.2 FL (6.5-10.1) 7.6 FL (6.5-10.1) Neutrophils (%) (Auto) % (45.0-75.0) % (45.0-75.0) Lymphocytes (%) (Auto) % (20.0-45.0) % (20.0-45.0) Monocytes (%) (Auto) % (1.0-10.0) % (1.0-10.0) Eosinophils (%) (Auto) % (0.0-3.0) % (0.0-3.0) Basophils (%) (Auto) % (0.0-2.0) % (0.0-2.0) Differential Total Cells Counted 100 100 Neutrophils % (Manual) 71 % (45-75) 80 % (45-75) Lymphocytes % (Manual) 15 % (20-45) 7 % (20-45) Monocytes % (Manual) 0 % (1-10) 10 % (1-10) Eosinophils % (Manual) 1 % (0-3) 2 % (0-3) Basophils % (Manual) 0 % (0-2) 0 % (0-2) Band Neutrophils 13 % (0-8) 0 % (0-8) Platelet Estimate Decreased Decreased Platelet Morphology Normal Normal Red Blood Cell Morphology Normal Myelocytes % 1 % (0-0) Nucleated Red Blood Cells 7 /100 WBC Hypochromasia 2+ Anisocytosis 1+ Spherocytes 2+ Objective: WDWN chronically ill appearing; on the ventilator NAD coarse breath sounds bilaterally with rhonchi diffusely without improvement tachypneic orally intubated S1S2 IRRR without MRG; rate controlled NABS nontender no HSM; feeding tube in place no CC; some edema slightly worse nonfocal poorly responsive skin noted pupils sluggish Accucheck: 169 FELIPE PATHAK Feb 11, 2017 12:44
[2017-02-11] MEDS: Meropenem 500 MG in NS 55 ML IVPB SCH (14:00)
[2017-02-11] MEDS ORDERED: Tubing Blood Filter IV ONE (15:40)
[2017-02-11] MEDS ORDERED: NS 275ml ONE (15:40)
--- NOTE | 2017-02-11 22:00 | Infectious Diseases Prog Note ---
Assessment/Plan Assessment/Plan ASSESSMENT: 76 y/o female with: // Probable UTI - UCx(-) // Hypoxia, possible HCAP Scx: ESBL Kleb - CXR 02/02 : Extensive bilateral interstitial and airspace opacities, unchanged // h/o CoNS bacteremia 11/05 ( 01/09 ) ?real ( PICC tip+ ) vs contaminant r/o recurrence/persistence - surveillance BCx(-) // h/o right ankle cellulitis / osteomyelitis / hardware infection SP incomplete Rx ( recommended to complete 6 weeks IV daptomycin, cefepime ( end ), but daughter apparently declined at last discharge per documentation ) - SP hardware removal 12/15 - no culture sent - 3P bone scan: 3 phase increased activity in region of distal aspect of right fibula compatible with hardware loosening and/or osteomyelitis - XR: surgical hardware seen reducing old healed distal fibular and medial malleolar fractures. No acute fractures. No dislocations. Bones are demineralized. - elevated ESR, CRP - h/o right ankle ORIF // Probable sepsis,SP // Leukocytosis , increased // VDRF intubated 02/07 // ARF on CKD --> IHD per renal SP placement of tunneled right jugular hemodialysis catheter. 01/29 // Dementia // DM2 - HbA1c 6.1% // h/o CAD - trop(-) x1 // NH resident // VRE colonized // No ABX allergies // Full Code PLAN: - on Merrem d# 5 ( 02/07 SP DC Teflaro d# 10 ) ( 01/28 SP IV cefepime d# 10 IV Vanco d# 2 ) - monitor CBC, temperatures - monitor BMP - monitor CXR - respiratory support prn - DNR Subjective Constitutional: Denies: anorexia, chills, drenching sweats, fatigue, fever, no symptoms, other Allergies: Coded Allergies: MORPHINE (Verified Adverse Reaction, Severe, PARADOXICAL REACTION, 10/08/12 ) Objective Vital Signs Last 24 Hour Vital Signs Date Time Temp Pulse Resp B/P Pulse Ox O2 Delivery O2 Flow Rate FiO2 02/11/17 21:30 108 28 104/80 100 Mechanical Ventilator 90 02/11/17 21:24 66 28 90 02/11/17 21:02 113/51 02/11/17 21:00 93 27 101/38 100 Mechanical Ventilator 90 02/11/17 20:30 145 28 113/51 100 Mechanical Ventilator 90 02/11/17 20:00 90 02/11/17 20:00 147 02/11/17 20:00 97.5 92 27 105/47 100 Mechanical Ventilator 90 02/11/17 20:00 105/47 02/11/17 19:30 112 26 126/60 99 Mechanical Ventilator 90 02/11/17 19:30 145 32 90 02/11/17 19:00 115 25 126/60 100 Mechanical Ventilator 90 02/11/17 18:50 110/65 02/11/17 18:00 123/56 02/11/17 18:00 89/64 02/11/17 18:00 105 21 123/37 100 Mechanical Ventilator 100 02/11/17 17:26 104 29 90 02/11/17 17:00 104/56 02/11/17 17:00 122 23 89/37 100 Mechanical Ventilator 100 02/11/17 16:45 120 20 80/37 100 Mechanical Ventilator 100 02/11/17 16:30 101 23 87/33 100 Mechanical Ventilator 100 02/11/17 16:15 118 23 83/33 100 Mechanical Ventilator 100 02/11/17 16:00 80 20 104/44 98 Mechanical Ventilator 100 02/11/17 16:00 100 02/11/17 16:00 101 02/11/17 16:00 110/56 02/11/17 15:45 101 23 104/44 100 Mechanical Ventilator 100 02/11/17 15:30 100 20 98/63 100 Mechanical Ventilator 100 02/11/17 15:26 73 27 100 02/11/17 15:15 102 22 77/63 98 Mechanical Ventilator 100 02/11/17 15:00 98.9 78 20 101/38 100 Mechanical Ventilator 100 02/11/17 15:00 101/54 02/11/17 14:45 100 20 111/45 100 Mechanical Ventilator 100 02/11/17 14:30 108 22 134/64 98 Mechanical Ventilator 100 02/11/17 14:15 102 20 128/64 98 Mechanical Ventilator 100 02/11/17 14:00 77 20 107/40 98 Mechanical Ventilator 100 02/11/17 14:00 104/61 02/11/17 13:45 123 22 116/42 98 Mechanical Ventilator 100 02/11/17 13:30 118 20 106/42 100 Mechanical Ventilator 100 02/11/17 13:15 109 21 104/46 100 Mechanical Ventilator 100 02/11/17 13:00 106/45 02/11/17 13:00 101 20 102/84 100 Mechanical Ventilator 100 02/11/17 12:58 82 26 100 02/11/17 12:30 86 20 104/55 97 Mechanical Ventilator 100 02/11/17 12:15 111 22 106/41 98 Mechanical Ventilator 100 02/11/17 12:04 100 02/11/17 12:00 104 02/11/17 12:00 98.1 100 20 104/57 98 Mechanical Ventilator 100 02/11/17 11:58 101/65 02/11/17 11:45 110 20 84/38 98 Mechanical Ventilator 100 02/11/17 11:30 115 20 73/13 98 Mechanical Ventilator 100 02/11/17 11:15 89 20 162/53 98 Mechanical Ventilator 100 02/11/17 11:15 99 28 100 02/11/17 11:00 104 20 141/56 98 Mechanical Ventilator 100 02/11/17 11:00 141/56 02/11/17 10:00 95 20 86/44 90 Mechanical Ventilator 100 02/11/17 10:00 89/45 02/11/17 09:40 Mechanical Ventilator 100 02/11/17 09:13 104 28 100 02/11/17 09:00 109/56 02/11/17 08:55 91 26 80/40 90 Mechanical Ventilator 100 02/11/17 08:00 92 02/11/17 08:00 100 02/11/17 08:00 98.9 92 27 110/56 87 Mechanical Ventilator 100 02/11/17 08:00 110/65 02/11/17 07:55 Mechanical Ventilator 100 02/11/17 07:01 78 34 100 02/11/17 07:00 89 36 96/49 90 Mechanical Ventilator 100 02/11/17 07:00 96/49 02/11/17 06:45 90 32 98/39 90 Mechanical Ventilator 100 02/11/17 06:30 92 34 90/47 90 Mechanical Ventilator 100 02/11/17 06:23 117/48 02/11/17 06:15 98 33 117/48 90 Mechanical Ventilator 100 02/11/17 06:00 96 32 100/43 91 Mechanical Ventilator 100 02/11/17 06:00 100/43 02/11/17 05:45 92 31 111/49 93 Mechanical Ventilator 100 02/11/17 05:30 96 31 122/57 93 Mechanical Ventilator 100 02/11/17 05:20 90 34 100 02/11/17 05:15 81 29 128/42 94 Mechanical Ventilator 100 02/11/17 05:00 108/39 02/11/17 05:00 99.1 79 29 108/39 96 Mechanical Ventilator 100 02/11/17 04:45 79 28 93/35 96 Mechanical Ventilator 100 02/11/17 04:30 80 29 102/45 96 Mechanical Ventilator 100 02/11/17 04:15 77 28 95/71 97 Mechanical Ventilator 100 02/11/17 04:00 83 29 119/47 97 Mechanical Ventilator 100 02/11/17 04:00 83 02/11/17 04:00 119/47 02/11/17 04:00 100 02/11/17 03:45 83 32 111/49 97 Mechanical Ventilator 100 02/11/17 03:30 83 32 121/61 97 Mechanical Ventilator 100 02/11/17 03:15 86 33 136/34 96 Mechanical Ventilator 100 02/11/17 03:15 79 25 100 02/11/17 03:00 130/55 02/11/17 03:00 87 32 130/55 96 Mechanical Ventilator 100 02/11/17 02:45 86 32 126/48 96 Mechanical Ventilator 100 02/11/17 02:30 93 31 134/57 97 Mechanical Ventilator 100 02/11/17 02:15 89 31 124/46 97 Mechanical Ventilator 100 02/11/17 02:00 146/43 02/11/17 02:00 83 30 116/43 97 Mechanical Ventilator 100 02/11/17 01:45 84 32 95/79 96 Mechanical Ventilator 100 02/11/17 01:31 84 31 100 02/11/17 01:30 85 33 128/39 96 Mechanical Ventilator 100 02/11/17 01:15 83 29 126/45 97 Mechanical Ventilator 100 02/11/17 01:00 97/61 02/11/17 01:00 98.9 82 30 124/42 97 Mechanical Ventilator 100 02/11/17 00:45 82 29 122/35 97 Mechanical Ventilator 100 02/11/17 00:30 81 31 119/35 96 Mechanical Ventilator 100 02/11/17 00:15 81 30 104/33 96 Mechanical Ventilator 100 02/11/17 00:00 81 02/11/17 00:00 100 02/11/17 00:00 112/33 02/11/17 00:00 81 30 112/33 95 Mechanical Ventilator 100 02/10/17 23:45 82 29 115/42 96 Mechanical Ventilator 100 02/10/17 23:30 82 30 114/36 96 Mechanical Ventilator 100 02/10/17 23:17 80 29 100 02/10/17 23:15 83 29 111/41 96 Mechanical Ventilator 100 02/10/17 23:00 83 32 109/44 95 Mechanical Ventilator 100 02/10/17 23:00 109/44 02/10/17 22:45 90 29 116/38 94 Mechanical Ventilator 100 02/10/17 22:30 82 30 107/33 95 Mechanical Ventilator 100 02/10/17 22:15 83 29 112/42 96 Mechanical Ventilator 100 Height (Feet): 5 Height (Inches): 1.00 Weight (Pounds): 200 HEENT: anicteric Respiratory/Chest: no respiratory distress Cardiovascular: normal rate Abdomen: no organomegaly Laboratory Tests Test 02/11/17 02:50 02/11/17 03:00 02/11/17 11:05 Sodium Level 141 mEQ/L (135-145) 142 mEQ/L (135-145) Potassium Level 4.1 mEQ/L (3.4-4.9) 3.8 mEQ/L (3.4-4.9) Chloride Level 98 mEQ/L (98-107) 101 mEQ/L (98-107) Carbon Dioxide Level 31 mEQ/L (20-30) H 25 mEQ/L (20-30) Anion Gap 12 (5-15) 16 (5-15) H Blood Urea Nitrogen 72 mg/dL (7-23) H 47 mg/dL (7-23) #H Creatinine 4.2 mg/dL (0.5-0.9) H 3.1 mg/dL (0.5-0.9) H Estimat Glomerular Filtration Rate mL/min (>60) mL/min (>60) Glucose Level 174 mg/dL (74-106) H 174 mg/dL (74-106) H Calcium Level 9.2 mg/dL (8.6-10.2) 8.3 mg/dL (8.6-10.2) L Phosphorus Level < 0.6 mg/dL (2.5-4.8) *L Magnesium Level 2.0 mg/dL (1.7-2.5) Total Bilirubin 1.0 mg/dL (0.0-1.2) Aspartate Amino Transf (AST/SGOT) 30 U/L (5-40) Alanine Aminotransferase (ALT/SGPT) 37 U/L (3-33) H Alkaline Phosphatase 296 U/L (35-104) H Total Protein 4.6 g/dL (6.6-8.7) L Albumin 1.8 g/dL (3.5-5.2) L Globulin 2.8 g/dL Albumin/Globulin Ratio 0.6 (1.0-2.7) L White Blood Count 24.0 K/UL (4.8-10.8) *H 27.1 K/UL (4.8-10.8) *H Red Blood Count 2.96 M/UL (4.20-5.40) L 3.28 M/UL (4.20-5.40) L Hemoglobin 8.8 G/DL (12.0-16.0) L 9.8 G/DL (12.0-16.0) L Hematocrit 26.7 % (37.0-47.0) L 30.1 % (37.0-47.0) L Mean Corpuscular Volume 90 FL (80-99) 92 FL (80-99) Mean Corpuscular Hemoglobin 29.8 PG (27.0-31.0) 29.8 PG (27.0-31.0) Mean Corpuscular Hemoglobin Concent 33.1 G/DL (32.0-36.0) 32.5 G/DL (32.0-36.0) Red Cell Distribution Width 15.6 % (11.6-14.8) H 16.3 % (11.6-14.8) H Platelet Count 29 K/UL (150-450) L 33 K/UL (150-450) L Mean Platelet Volume 9.2 FL (6.5-10.1) 7.6 FL (6.5-10.1) Neutrophils (%) (Auto) % (45.0-75.0) % (45.0-75.0) Lymphocytes (%) (Auto) % (20.0-45.0) % (20.0-45.0) Monocytes (%) (Auto) % (1.0-10.0) % (1.0-10.0) Eosinophils (%) (Auto) % (0.0-3.0) % (0.0-3.0) Basophils (%) (Auto) % (0.0-2.0) % (0.0-2.0) Differential Total Cells Counted 100 100 Neutrophils % (Manual) 71 % (45-75) 80 % (45-75) H Lymphocytes % (Manual) 15 % (20-45) L 7 % (20-45) L Monocytes % (Manual) 0 % (1-10) L 10 % (1-10) Eosinophils % (Manual) 1 % (0-3) 2 % (0-3) Basophils % (Manual) 0 % (0-2) 0 % (0-2) Band Neutrophils 13 % (0-8) H 0 % (0-8) Platelet Estimate Decreased L Decreased L Platelet Morphology Normal Normal Red Blood Cell Morphology Normal Myelocytes % 1 % (0-0) H Nucleated Red Blood Cells 7 /100 WBC Hypochromasia 2+ Anisocytosis 1+ Spherocytes 2+ Current Medications Medications (Trade) Dose Ordered Sig/Rina Route PRN Reason Start Time Stop Time Status Last Admin Dose Admin Acetaminophen (Tylenol) 650 mg Q6H PRN ORAL Mild Pain/Temp > 100.5 02/07/17 17:00 03/09/17 16:59 Acetaminophen/ Hydrocodone Bitart ([place] 5/325) 1 tab Q4H PRN GT Moderate Pain (Pain Scale 4-6) 02/07/17 17:00 02/14/17 16:59 02/08/17 23:01 Albuterol/ Ipratropium (DuoNeb 0.5-3(2.5)mg/3ml) 3 ml Q4H PRN HHN Shortness of Breath 02/07/17 17:00 02/12/17 16:59 Dextrose (Dextrose 50%) STAT PRN IV Hypoglycemia 02/07/17 17:00 03/09/17 16:59 Heparin Sodium (Porcine) 500 unit 500 unit ONCE ONCE IV 02/11/17 22:30 02/11/17 22:31 Insulin Aspart (NovoLOG) Q6HR SUBQ 02/07/17 18:00 03/09/17 17:59 02/11/17 18:00 Lorazepam 1 mg 1 mg Q1H PRN IV For Anxiety 02/07/17 22:30 02/14/17 22:29 Menthol/Methyl Salicylate (Bengay) 1 applic FOUR TIMES A DAY TOPIC 02/07/17 18:00 03/09/17 17:59 02/11/17 20:53 Meropenem/Sodium Chloride (Merrem/Sodium Chloride) 55 ml @ 110 mls/hr DAILY@1400 IVPB 02/08/17 14:00 02/13/17 13:59 02/11/17 14:00 Nitroglycerin (Ntg) 0.4 mg Q5M X 3 DOSES PRN SL Prn Chest Pain 02/07/17 16:00 03/09/17 15:59 Norepinephrine Bitartrate 4 mg/ Dextrose 250 ml @ 0 mls/hr Q24H IV 02/09/17 07:00 02/11/17 23:59 02/11/17 21:02 Norepinephrine Bitartrate/ Dextrose (Levophed/D5W 500ml) 558 ml @ 0 mls/hr Q24H IV 02/12/17 00:00 03/14/17 00:00 Ondansetron HCl (Zofran) 4 mg Q6H PRN IVP Nausea & Vomiting 02/07/17 17:00 03/09/17 16:59 02/11/17 10:59 Pantoprazole (Protonix) 40 mg EVERY 12 HOURS IVP 02/07/17 21:00 03/09/17 20:59 02/11/17 20:53 Polyethylene Glycol (Miralax) 17 gm DAILYPRN PRN GT Constipation 02/07/17 17:00 03/09/17 16:59 Sodium Chloride (Sodium Chloride 1000ml bag) 1,000 ml @ 500 mls/hr Q2H PRN IVLG sbp<90 during hd 02/11/17 22:23 03/13/17 22:22 GISELLA JEROME M.D. Feb 11, 2017 22:00
[2017-02-11] MEDS ORDERED: Heparin Sod 1000 units/ml 10ml IV ONE (22:30)
--- NOTE | 2017-02-11 23:47 | Progress Note ---
DATE: 02/11/2017 SUBJECTIVE: The patient remains in the intensive care unit in critical condition with guarded prognosis. The patient is now DNR. Monitored rhythm is atrial fibrillation, rate controlled. The patient remains on pressor support with marginal blood pressure readings and on full ventilator support. OBJECTIVE: VITAL SIGNS: Blood pressure 80/37, pulse 120, respiratory rate 20, and afebrile. LUNGS: Bilateral breath sounds with rhonchi. HEART: Irregularly irregular rhythm. Normal S1 and S2. ABDOMEN: Soft and distended. EXTREMITIES: 1+ edema and ecchymoses. LABORATORY DATA: White count 27, hemoglobin 9.8, and platelets 33,000. Sodium 142, potassium 3.8, bicarbonate 25, BUN 47, and creatinine 3.1. yesterday 1.8. yesterday 0.6. IMPRESSION: 1. Shock. 2. Sepsis. 3. Respiratory failure. 4. DIC. 5. Severe hypophosphatemia. 6. Severe protein-calorie malnutrition. 7. Paroxysmal atrial fibrillation now with increasing ventricular response. 8. Acute renal failure. CONDITION: Remains critical. PROGNOSIS: Grave. PLAN: 1. DNR appropriate. 2. Continue pressors with taper. 3. Continue blood product transfusion if bleeding. 4. Continue protein supplement by feeding tube. 5. Continue ventilator support with adjustments for acid-base parameters . 6. Hemodialysis with ultrafiltration as able. 7. Broad-spectrum antimicrobials. Joss Rush M.D. DR: ANAT JOB#: [id number] CC:
[2017-02-12] VITALS (50 sets, daily range): BP systolic 59–131; BP diastolic 11–107
[2017-02-12] MEDS: Norepinephrine Bitartrate 8 MG in D5W 500ml 550 ML IV SCH ×2 (00:21→14:14)
--- NOTE | 2017-02-12 02:38 | Progress Note ---
DATE: 02/12/2017 CARDIOLOGY PROGRESS NOTE SUBJECTIVE: The patient's condition remains critical. Prognosis is grave. She is in the intensive care unit. She is on pressor support. She is orally intubated and mechanically ventilated. Monitored rhythm, atrial fibrillation to sinus bradycardia. OBJECTIVE: LUNGS: Moderate ecchymoses. Diminished breath sounds with rhonchi. HEART: Irregularly irregular rhythm. Normal S1 and S2. EXTREMITIES: A 1+ edema. LABORATORY DATA: Still pending from today. IMPRESSION: 1. Multiorgan system failure. 2. Sepsis with shock. 3. Respiratory failure. 4. Atrial fibrillation. 5. Pneumonia. 6. Disseminated intravascular coagulation. 7. Severe metabolic derangements. 8. Acute renal failure. PLAN: 1. Ventilator support. 2. Taper pressors as able. 3. Blood products as needed for bleeding. 4. Broad-spectrum antibiotics. 5. Replace electrolytes and phosphorus. 6. DNR is appropriate in this clinical setting. Family members are aware of the severity of her illness. Joss Rush M.D. DR: ERICKA JOB#: [id number] CC:
[2017-02-12 05:04] LABS: MEAN CORPUSCULAR HEMOGLOBIN 30.5 PG (27.0-31.0); MEAN CORPUSCULAR HGB CONC 33.5 G/DL (32.0-36.0); MEAN CORPUSCULAR VOLUME 91 FL (80-99); PLATELET COUNT 30 K/UL (150-450); RED BLOOD COUNT 2.87 M/UL (4.20-5.40); RED CELL DISTRIBUTION WIDTH 16.1 % (11.6-14.8)
[2017-02-12 05:12] LABS: WHITE BLOOD COUNT 27.5 K/UL (4.8-10.8)
[2017-02-12 05:17] LABS: ALANINE AMINOTRANSFERASE 23 U/L (3-33); ALBUMIN/GLOBULIN RATIO 0.5 (1.0-2.7); ANION GAP 15 (5-15); ASPARTATE AMINO TRANSFERASE 22 U/L (5-40); CALCIUM 7.8 mg/dL (8.6-10.2); CARBON DIOXIDE 25 mEQ/L (20-30); CHLORIDE 101 mEQ/L (98-107); CREATININE 3.4 mg/dL (0.5-0.9); HEMOLYSIS 14; MAGNESIUM 1.8 mg/dL (1.7-2.5); PHOSPHORUS 3.7 mg/dL (2.5-4.8); POTASSIUM 3.6 mEQ/L (3.4-4.9); SODIUM 141 mEQ/L (135-145); TOTAL PROTEIN 4.5 g/dL (6.6-8.7)
[2017-02-12] MEDS: NovoLOG Insulin Flexpen SUBQ SCH ×4 (06:10→23:49)
[2017-02-12 06:36] LABS: CRP QUANT 20.6 mg/dL (< 0.5); URIC ACID 5.2 mg/dL (3.0-7.5)
[2017-02-12 08:15] LABS: BAND NEUTROPHILS % (MANUAL) 2 % (0-8); EOSINOPHILS % (MANUAL) 2 % (0-3); LYMPHOCYTES % (MANUAL) 12 % (20-45); NEUTROPHILS % (MANUAL) 76 % (45-75); NUCLEATED RED BLOOD CELLS 4 /100 WBC; TOTAL CELLS COUNTED 100
[2017-02-12 08:17] LABS: ANISOCYTOSIS 1+; BASOPHILS % (MANUAL) 0 % (0-2); HYPOCHROMASIA 2+; PLATELET ESTIMATE DECREASED; PLATELET MORPHOLOGY NORMAL; SPHEROCYTES 1+
--- NOTE | 2017-02-12 08:36 | Critical Care Progress Note ---
Assessment/Plan Assessment/Plan hypoxemia respiratory failure respiratory acidosis pulmonary infiltrates thrombocytopenia renal failure ALOC chronic encephalopathy septic shock leukocytosis pulmonary infiltrates ARDS DIC likely s/p transfusion atrial fibrillation hypotension PLAN long d/w son; DNR with possible terminal extubaton off heparin, plavix, aspirin no chance of recovery follow up labs cards evaluation noted; afib controlled levophed and pressors as needed monitor renal function; stable on HD antibiotics noted unable to taper fio2; now on 90% hyperventilate follow up abg as needed prognosis poor; wbc very elevated possible terminal extubation medications/laboratory data/nursing notes/ICU care reviewed in detail note reviewed and edited care discussed with RN and RT ICU time spent 38 minutes Critical Care - Subjective Interval Events: obtunded d/w family possible terminal extubation planned ROS Limited/Unobtainable: Yes Condition: critical EKG Rhythm: Atrial Fibrillation Residuals: high I&O: Intake and Output 02/11/17 02/12/17 19:00 07:00 Intake Total 546.31 ml 588.60 ml Output Total 445 ml 10 ml Balance 101.31 ml 578.60 ml Free Water 60 ml IV Total 486.31 ml 588.60 ml Tube Feeding 0 ml Output Urine Total 0 ml 10 ml Gastric Drainage Total 325 ml Peritoneal Dialysis UF 120 ml Critical Care - Objective ET-Tube: 7.0 ET Position: 22 Last 24 Hour Vital Signs Date Time Temp Pulse Resp B/P Pulse Ox O2 Delivery O2 Flow Rate FiO2 02/12/17 08:00 90 02/12/17 07:30 58 26 110/30 100 Mechanical Ventilator 90 02/12/17 07:00 58 26 90 02/12/17 07:00 105/90 02/12/17 07:00 63 17 105/90 100 Mechanical Ventilator 90 02/12/17 06:30 57 26 114/53 100 Mechanical Ventilator 90 02/12/17 06:00 60 25 116/29 100 Mechanical Ventilator 90 02/12/17 06:00 116/29 02/12/17 05:30 63 22 115/17 100 Mechanical Ventilator 90 02/12/17 05:30 60 26 90 02/12/17 05:00 60 25 107/32 100 Mechanical Ventilator 90 02/12/17 05:00 107/32 02/12/17 04:30 60 26 119/25 100 Mechanical Ventilator 90 02/12/17 04:00 90 02/12/17 04:00 97.8 60 26 104/27 100 Mechanical Ventilator 90 02/12/17 04:00 60 02/12/17 04:00 104/27 02/12/17 03:30 61 25 100/28 100 Mechanical Ventilator 90 02/12/17 03:30 60 26 90 02/12/17 03:00 108/26 02/12/17 03:00 62 26 108/26 100 Mechanical Ventilator 90 02/12/17 02:30 64 18 127/38 100 Mechanical Ventilator 90 02/12/17 02:00 107/91 02/12/17 02:00 67 22 107/91 100 Mechanical Ventilator 90 02/12/17 01:30 66 26 113/34 100 Mechanical Ventilator 90 02/12/17 01:24 64 29 90 02/12/17 01:00 64 26 101/25 100 Mechanical Ventilator 90 02/12/17 01:00 101/25 02/12/17 00:30 66 26 111/96 100 Mechanical Ventilator 90 02/12/17 00:21 112/33 02/12/17 00:00 72 02/12/17 00:00 90 02/12/17 00:00 97.7 70 24 102/38 100 Mechanical Ventilator 90 02/11/17 23:45 72 24 126/39 100 Mechanical Ventilator 90 02/11/17 23:30 73 24 131/33 100 Mechanical Ventilator 90 02/11/17 23:29 74 29 Mechanical Ventilator 90 02/11/17 23:22 74 29 90 02/11/17 23:15 75 26 126/37 100 Mechanical Ventilator 90 02/11/17 23:00 141/36 02/11/17 23:00 74 26 141/36 100 Mechanical Ventilator 90 02/11/17 22:30 112 28 94/81 100 Mechanical Ventilator 90 02/11/17 22:00 103 17 94/32 100 Mechanical Ventilator 90 02/11/17 22:00 94/32 02/11/17 21:30 108 28 104/80 100 Mechanical Ventilator 90 02/11/17 21:24 66 28 90 02/11/17 21:02 113/51 02/11/17 21:00 93 27 101/38 100 Mechanical Ventilator 90 02/11/17 20:30 145 28 113/51 100 Mechanical Ventilator 90 02/11/17 20:00 90 02/11/17 20:00 147 02/11/17 20:00 97.5 92 27 105/47 100 Mechanical Ventilator 90 02/11/17 20:00 105/47 02/11/17 19:30 112 26 126/60 99 Mechanical Ventilator 90 02/11/17 19:30 145 32 90 02/11/17 19:00 115 25 126/60 100 Mechanical Ventilator 90 02/11/17 18:50 110/65 02/11/17 18:00 123/56 02/11/17 18:00 89/64 02/11/17 18:00 105 21 123/37 100 Mechanical Ventilator 100 02/11/17 17:26 104 29 90 02/11/17 17:00 104/56 02/11/17 17:00 122 23 89/37 100 Mechanical Ventilator 100 02/11/17 16:45 120 20 80/37 100 Mechanical Ventilator 100 02/11/17 16:30 101 23 87/33 100 Mechanical Ventilator 100 02/11/17 16:15 118 23 83/33 100 Mechanical Ventilator 100 02/11/17 16:00 80 20 104/44 98 Mechanical Ventilator 100 02/11/17 16:00 100 02/11/17 16:00 101 02/11/17 16:00 110/56 02/11/17 15:45 101 23 104/44 100 Mechanical Ventilator 100 02/11/17 15:30 100 20 98/63 100 Mechanical Ventilator 100 02/11/17 15:26 73 27 100 02/11/17 15:15 102 22 77/63 98 Mechanical Ventilator 100 02/11/17 15:00 98.9 78 20 101/38 100 Mechanical Ventilator 100 02/11/17 15:00 101/54 02/11/17 14:45 100 20 111/45 100 Mechanical Ventilator 100 02/11/17 14:30 108 22 134/64 98 Mechanical Ventilator 100 02/11/17 14:15 102 20 128/64 98 Mechanical Ventilator 100 02/11/17 14:00 77 20 107/40 98 Mechanical Ventilator 100 02/11/17 14:00 104/61 02/11/17 13:45 123 22 116/42 98 Mechanical Ventilator 100 02/11/17 13:30 118 20 106/42 100 Mechanical Ventilator 100 02/11/17 13:15 109 21 104/46 100 Mechanical Ventilator 100 02/11/17 13:00 106/45 02/11/17 13:00 101 20 102/84 100 Mechanical Ventilator 100 02/11/17 12:58 82 26 100 02/11/17 12:30 86 20 104/55 97 Mechanical Ventilator 100 02/11/17 12:15 111 22 106/41 98 Mechanical Ventilator 100 02/11/17 12:04 100 02/11/17 12:00 104 02/11/17 12:00 98.1 100 20 104/57 98 Mechanical Ventilator 100 02/11/17 11:58 101/65 02/11/17 11:45 110 20 84/38 98 Mechanical Ventilator 100 02/11/17 11:30 115 20 73/13 98 Mechanical Ventilator 100 02/11/17 11:15 89 20 162/53 98 Mechanical Ventilator 100 02/11/17 11:15 99 28 100 02/11/17 11:00 104 20 141/56 98 Mechanical Ventilator 100 02/11/17 11:00 141/56 02/11/17 10:00 95 20 86/44 90 Mechanical Ventilator 100 02/11/17 10:00 89/45 02/11/17 09:40 Mechanical Ventilator 100 02/11/17 09:13 104 28 100 02/11/17 09:00 109/56 02/11/17 08:55 91 26 80/40 90 Mechanical Ventilator 100 Labs: Labs Test 02/10/17 08:20 02/10/17 10:16 02/11/17 02:50 02/11/17 03:00 White Blood Count 20.4 K/UL (4.8-10.8) 24.0 K/UL (4.8-10.8) Red Blood Count 2.51 M/UL (4.20-5.40) 2.96 M/UL (4.20-5.40) Hemoglobin 7.5 G/DL (12.0-16.0) 8.8 G/DL (12.0-16.0) Hematocrit 23.2 % (37.0-47.0) 26.7 % (37.0-47.0) Mean Corpuscular Volume 92 FL (80-99) 90 FL (80-99) Mean Corpuscular Hemoglobin 29.8 PG (27.0-31.0) 29.8 PG (27.0-31.0) Mean Corpuscular Hemoglobin Concent 32.3 G/DL (32.0-36.0) 33.1 G/DL (32.0-36.0) Red Cell Distribution Width 16.4 % (11.6-14.8) 15.6 % (11.6-14.8) Platelet Count 33 K/UL (150-450) 29 K/UL (150-450) Mean Platelet Volume 12.3 FL (6.5-10.1) 9.2 FL (6.5-10.1) Neutrophils (%) (Auto) % (45.0-75.0) % (45.0-75.0) Lymphocytes (%) (Auto) % (20.0-45.0) % (20.0-45.0) Monocytes (%) (Auto) % (1.0-10.0) % (1.0-10.0) Eosinophils (%) (Auto) % (0.0-3.0) % (0.0-3.0) Basophils (%) (Auto) % (0.0-2.0) % (0.0-2.0) Differential Total Cells Counted 100 100 Neutrophils % (Manual) 76 % (45-75) 71 % (45-75) Lymphocytes % (Manual) 15 % (20-45) 15 % (20-45) Monocytes % (Manual) 3 % (1-10) 0 % (1-10) Eosinophils % (Manual) 0 % (0-3) 1 % (0-3) Basophils % (Manual) 0 % (0-2) 0 % (0-2) Band Neutrophils 6 % (0-8) 13 % (0-8) Nucleated Red Blood Cells 9 /100 WBC Platelet Estimate Decreased Decreased Platelet Morphology Normal Normal Hypochromasia 1+ Anisocytosis 1+ Sodium Level 141 mEQ/L (135-145) 141 mEQ/L (135-145) Potassium Level 3.6 mEQ/L (3.4-4.9) 4.1 mEQ/L (3.4-4.9) Chloride Level 97 mEQ/L (98-107) 98 mEQ/L (98-107) Carbon Dioxide Level 28 mEQ/L (20-30) 31 mEQ/L (20-30) Anion Gap 16 (5-15) 12 (5-15) Blood Urea Nitrogen 52 mg/dL (7-23) 72 mg/dL (7-23) Creatinine 3.7 mg/dL (0.5-0.9) 4.2 mg/dL (0.5-0.9) Estimat Glomerular Filtration Rate mL/min (>60) mL/min (>60) Glucose Level 234 mg/dL (74-106) 174 mg/dL (74-106) Calcium Level 8.6 mg/dL (8.6-10.2) 9.2 mg/dL (8.6-10.2) Total Bilirubin 0.9 mg/dL (0.0-1.2) 1.0 mg/dL (0.0-1.2) Aspartate Amino Transf (AST/SGOT) 41 U/L (5-40) 30 U/L (5-40) Alanine Aminotransferase (ALT/SGPT) 52 U/L (3-33) 37 U/L (3-33) Alkaline Phosphatase 256 U/L (35-104) 296 U/L (35-104) Total Protein 4.6 g/dL (6.6-8.7) 4.6 g/dL (6.6-8.7) Albumin 2.1 g/dL (3.5-5.2) 1.8 g/dL (3.5-5.2) Globulin 2.5 g/dL 2.8 g/dL Albumin/Globulin Ratio 0.8 (1.0-2.7) 0.6 (1.0-2.7) Arterial Blood pH 7.300 (7.350-7.450) Arterial Blood Partial Pressure CO2 69.0 mmHg (35.0-45.0) Arterial Blood Partial Pressure O2 57.0 mmHg (75.0-100.0) Arterial Blood HCO3 33.0 mmol/L (22.0-26.0) Arterial Blood Oxygen Saturation 89.0 % (92.0-98.0) Arterial Blood Base Excess 6 Levy Test Positive Phosphorus Level < 0.6 mg/dL (2.5-4.8) Magnesium Level 2.0 mg/dL (1.7-2.5) Red Blood Cell Morphology Normal Test 02/11/17 11:05 02/12/17 04:05 White Blood Count 27.1 K/UL (4.8-10.8) 27.5 K/UL (4.8-10.8) Red Blood Count 3.28 M/UL (4.20-5.40) 2.87 M/UL (4.20-5.40) Hemoglobin 9.8 G/DL (12.0-16.0) 8.7 G/DL (12.0-16.0) Hematocrit 30.1 % (37.0-47.0) 26.1 % (37.0-47.0) Mean Corpuscular Volume 92 FL (80-99) 91 FL (80-99) Mean Corpuscular Hemoglobin 29.8 PG (27.0-31.0) 30.5 PG (27.0-31.0) Mean Corpuscular Hemoglobin Concent 32.5 G/DL (32.0-36.0) 33.5 G/DL (32.0-36.0) Red Cell Distribution Width 16.3 % (11.6-14.8) 16.1 % (11.6-14.8) Platelet Count 33 K/UL (150-450) 30 K/UL (150-450) Mean Platelet Volume 7.6 FL (6.5-10.1) 8.0 FL (6.5-10.1) Neutrophils (%) (Auto) % (45.0-75.0) % (45.0-75.0) Lymphocytes (%) (Auto) % (20.0-45.0) % (20.0-45.0) Monocytes (%) (Auto) % (1.0-10.0) % (1.0-10.0) Eosinophils (%) (Auto) % (0.0-3.0) % (0.0-3.0) Basophils (%) (Auto) % (0.0-2.0) % (0.0-2.0) Differential Total Cells Counted 100 100 Neutrophils % (Manual) 80 % (45-75) 76 % (45-75) Lymphocytes % (Manual) 7 % (20-45) 12 % (20-45) Monocytes % (Manual) 10 % (1-10) 8 % (1-10) Eosinophils % (Manual) 2 % (0-3) 2 % (0-3) Basophils % (Manual) 0 % (0-2) 0 % (0-2) Myelocytes % 1 % (0-0) Band Neutrophils 0 % (0-8) 2 % (0-8) Nucleated Red Blood Cells 7 /100 WBC 4 /100 WBC Platelet Estimate Decreased Decreased Platelet Morphology Normal Normal Hypochromasia 2+ 2+ Anisocytosis 1+ 1+ Spherocytes 2+ 1+ Sodium Level 142 mEQ/L (135-145) 141 mEQ/L (135-145) Potassium Level 3.8 mEQ/L (3.4-4.9) 3.6 mEQ/L (3.4-4.9) Chloride Level 101 mEQ/L (98-107) 101 mEQ/L (98-107) Carbon Dioxide Level 25 mEQ/L (20-30) 25 mEQ/L (20-30) Anion Gap 16 (5-15) 15 (5-15) Blood Urea Nitrogen 47 mg/dL (7-23) 61 mg/dL (7-23) Creatinine 3.1 mg/dL (0.5-0.9) 3.4 mg/dL (0.5-0.9) Estimat Glomerular Filtration Rate mL/min (>60) mL/min (>60) Glucose Level 174 mg/dL (74-106) 119 mg/dL (74-106) Calcium Level 8.3 mg/dL (8.6-10.2) 7.8 mg/dL (8.6-10.2) Uric Acid 5.2 mg/dL (3.0-7.5) Phosphorus Level 3.7 mg/dL (2.5-4.8) Magnesium Level 1.8 mg/dL (1.7-2.5) Total Bilirubin 0.9 mg/dL (0.0-1.2) Aspartate Amino Transf (AST/SGOT) 22 U/L (5-40) Alanine Aminotransferase (ALT/SGPT) 23 U/L (3-33) Alkaline Phosphatase 263 U/L (35-104) C-Reactive Protein, Quantitative 20.6 mg/dL (< 0.5) Pro-B-Type Natriuretic Peptide 48719 pg/mL (0-450) Total Protein 4.5 g/dL (6.6-8.7) Albumin 1.6 g/dL (3.5-5.2) Globulin 2.9 g/dL Albumin/Globulin Ratio 0.5 (1.0-2.7) Objective: WDWN chronically ill appearing; on the ventilator NAD coarse breath sounds bilaterally with reduced rhonchi but no wheeze orally intubated S1S2 IRRR without MRG; rate controlled NABS nontender no HSM; feeding tube in place; no distention no CC; some edema nonfocal poorly responsive skin noted pupils sluggish Accucheck: 133 FELIPE PATHAK Feb 12, 2017 08:36
[2017-02-12] MEDS: Analgesic Balm 15gm TOPIC SCH ×4 (09:06→21:46)
[2017-02-12] MEDS: Pantoprazole Inj IVP SCH ×2 (09:06→21:45)
[2017-02-12] MEDS: Meropenem 500 MG in NS 55 ML IVPB SCH (14:13)
--- NOTE | 2017-02-12 15:58 | General Progress Note ---
Assessment/Plan Status: unchanged, deteriorating Status Narrative hypotensive on pressors Assessment/Plan Has acute respiratory distress- intubated in ICU Septic shock ( Had long talk with daughter Gali 01/19 ) - Acute renal failure and hyperKalemia - Renal failure, likely diabetic nephropathy / HTN - Sepsis , Pneumonia, Respiratory failure and Hypoxia other - h/o Cellulitis in diabetic foot right LE - Decubitus ulcer - Dementia - Diabetes mellitus - Nonpressure ulcer to level of fascia right lateral ankle - S/P ORIF right ankle Plan: intubate - ICU trial hydrocortisone Had permacath 01/30 HD in process now monitor WBCs Phos supplement Monitor renal parameters and Vanco level- ARTUR Kidney done last admission- unremarkable Adjust BP meds- Avoid Nephrotoxics- discussed with CM Per orders Subjective ROS Limited/Unobtainable: Yes Allergies: Coded Allergies: MORPHINE (Verified Adverse Reaction, Severe, PARADOXICAL REACTION, 10/08/12 ) Objective Last 24 Hour Vital Signs Date Time Temp Pulse Resp B/P Pulse Ox O2 Delivery O2 Flow Rate FiO2 02/12/17 15:00 71 28 97/81 100 Mechanical Ventilator 90 02/12/17 14:40 68 27 90 02/12/17 14:30 66 23 97/21 100 Mechanical Ventilator 90 02/12/17 14:14 104/32 02/12/17 14:00 63 23 109/11 100 Mechanical Ventilator 90 02/12/17 13:30 67 26 129/107 100 Mechanical Ventilator 90 02/12/17 13:00 65 23 131/51 100 Mechanical Ventilator 90 02/12/17 12:50 72 27 90 02/12/17 12:00 63 02/12/17 12:00 90 02/12/17 12:00 98.7 57 22 88/31 100 Mechanical Ventilator 90 02/12/17 11:30 63 22 86/64 100 Mechanical Ventilator 90 02/12/17 11:00 62 23 111/35 100 Mechanical Ventilator 90 02/12/17 10:50 63 27 90 02/12/17 10:30 60 24 111/23 100 Mechanical Ventilator 90 02/12/17 10:15 60 24 80/40 100 Mechanical Ventilator 90 02/12/17 10:03 60 24 116/89 100 Mechanical Ventilator 90 02/12/17 09:30 61 26 96/26 100 Mechanical Ventilator 90 02/12/17 09:06 60 26 92/32 100 Mechanical Ventilator 90 02/12/17 08:33 62 26 90 02/12/17 08:30 61 26 89/38 100 Mechanical Ventilator 90 02/12/17 08:00 97.6 60 25 102/25 100 Mechanical Ventilator 90 02/12/17 08:00 90 02/12/17 08:00 58 02/12/17 07:30 58 26 110/30 100 Mechanical Ventilator 90 02/12/17 07:00 58 26 90 02/12/17 07:00 105/90 02/12/17 07:00 63 17 105/90 100 Mechanical Ventilator 90 02/12/17 06:30 57 26 114/53 100 Mechanical Ventilator 90 02/12/17 06:00 60 25 116/29 100 Mechanical Ventilator 90 02/12/17 06:00 116/29 02/12/17 05:30 63 22 115/17 100 Mechanical Ventilator 90 02/12/17 05:30 60 26 90 02/12/17 05:00 60 25 107/32 100 Mechanical Ventilator 90 02/12/17 05:00 107/32 02/12/17 04:30 60 26 119/25 100 Mechanical Ventilator 90 02/12/17 04:00 90 02/12/17 04:00 97.8 60 26 104/27 100 Mechanical Ventilator 90 02/12/17 04:00 60 02/12/17 04:00 104/27 02/12/17 03:30 61 25 100/28 100 Mechanical Ventilator 90 02/12/17 03:30 60 26 90 02/12/17 03:00 108/26 02/12/17 03:00 62 26 108/26 100 Mechanical Ventilator 90 02/12/17 02:30 64 18 127/38 100 Mechanical Ventilator 90 02/12/17 02:00 107/91 02/12/17 02:00 67 22 107/91 100 Mechanical Ventilator 90 02/12/17 01:30 66 26 113/34 100 Mechanical Ventilator 90 02/12/17 01:24 64 29 90 02/12/17 01:00 64 26 101/25 100 Mechanical Ventilator 90 02/12/17 01:00 101/25 02/12/17 00:30 66 26 111/96 100 Mechanical Ventilator 90 02/12/17 00:21 112/33 02/12/17 00:00 72 02/12/17 00:00 90 02/12/17 00:00 97.7 70 24 102/38 100 Mechanical Ventilator 90 02/11/17 23:45 72 24 126/39 100 Mechanical Ventilator 90 02/11/17 23:30 73 24 131/33 100 Mechanical Ventilator 90 02/11/17 23:29 74 29 Mechanical Ventilator 90 02/11/17 23:22 74 29 90 02/11/17 23:15 75 26 126/37 100 Mechanical Ventilator 90 02/11/17 23:00 141/36 02/11/17 23:00 74 26 141/36 100 Mechanical Ventilator 90 02/11/17 22:30 112 28 94/81 100 Mechanical Ventilator 90 02/11/17 22:00 103 17 94/32 100 Mechanical Ventilator 90 02/11/17 22:00 94/32 02/11/17 21:30 108 28 104/80 100 Mechanical Ventilator 90 02/11/17 21:24 66 28 90 02/11/17 21:02 113/51 02/11/17 21:00 93 27 101/38 100 Mechanical Ventilator 90 02/11/17 20:30 145 28 113/51 100 Mechanical Ventilator 90 02/11/17 20:00 90 02/11/17 20:00 147 02/11/17 20:00 97.5 92 27 105/47 100 Mechanical Ventilator 90 02/11/17 20:00 105/47 02/11/17 19:30 112 26 126/60 99 Mechanical Ventilator 90 02/11/17 19:30 145 32 90 02/11/17 19:00 115 25 126/60 100 Mechanical Ventilator 90 02/11/17 18:50 110/65 02/11/17 18:00 123/56 02/11/17 18:00 89/64 02/11/17 18:00 105 21 123/37 100 Mechanical Ventilator 100 02/11/17 17:26 104 29 90 02/11/17 17:00 104/56 02/11/17 17:00 122 23 89/37 100 Mechanical Ventilator 100 02/11/17 16:45 120 20 80/37 100 Mechanical Ventilator 100 02/11/17 16:30 101 23 87/33 100 Mechanical Ventilator 100 02/11/17 16:15 118 23 83/33 100 Mechanical Ventilator 100 02/11/17 16:00 80 20 104/44 98 Mechanical Ventilator 100 02/11/17 16:00 100 02/11/17 16:00 101 02/11/17 16:00 110/56 Intake and Output 02/11/17 02/12/17 19:00 07:00 Intake Total 546.31 ml 588.60 ml Output Total 565 ml 10 ml Balance -18.69 ml 578.60 ml Free Water 60 ml IV Total 486.31 ml 588.60 ml Tube Feeding 0 ml Output Urine Total 0 ml 10 ml Gastric Drainage Total 325 ml Hemodialysis UF 120 ml Peritoneal Dialysis UF 120 ml Laboratory Tests 02/12/17 04:05: White Blood Count 27.5*H, Red Blood Count 2.87L, Hemoglobin 8.7L, Hematocrit 26.1L, Mean Corpuscular Volume 91, Mean Corpuscular Hemoglobin 30.5, Mean Corpuscular Hemoglobin Concent 33.5, Red Cell Distribution Width 16.1H, Platelet Count 30L, Mean Platelet Volume 8.0, Neutrophils (%) (Auto) , Lymphocytes (%) (Auto) , Monocytes (%) (Auto) , Eosinophils (%) (Auto) , Basophils (%) (Auto) , Differential Total Cells Counted 100, Neutrophils % ( Manual) 76H, Lymphocytes % (Manual) 12L, Monocytes % (Manual) 8, Eosinophils % ( Manual) 2, Basophils % (Manual) 0, Band Neutrophils 2, Nucleated Red Blood Cells 4, Platelet Estimate DecreasedL, Platelet Morphology Normal, Hypochromasia 2+, Anisocytosis 1+, Spherocytes 1+, Sodium Level 141, Potassium Level 3.6, Chloride Level 101, Carbon Dioxide Level 25, Anion Gap 15, Blood Urea Nitrogen 61H, Creatinine 3.4H, Estimat Glomerular Filtration Rate , Glucose Level 119H, Uric Acid 5.2, Calcium Level 7.8L, Phosphorus Level 3.7, Magnesium Level 1.8, Total Bilirubin 0.9, Aspartate Amino Transf (AST/SGOT) 22, Alanine Aminotransferase (ALT/SGPT) 23, Alkaline Phosphatase 263H, C-Reactive Protein, Quantitative 20.6H, Pro-B-Type Natriuretic Peptide 71697M, Total Protein 4.5L, Albumin 1.6L, Globulin 2.9, Albumin/Globulin Ratio 0.5L Height (Feet): 5 Height (Inches): 1.00 Weight (Pounds): 200 General Appearance: mild distress Cardiovascular: normal rate Respiratory/Chest: decreased breath sounds Abdomen: distended Objective other PE not changed BERTRAM CASTAÑEDA Feb 12, 2017 15:58
--- NOTE | 2017-02-12 16:03 | Infectious Diseases Prog Note ---
Assessment/Plan Assessment/Plan ASSESSMENT: 76 y/o female with: // Probable UTI - UCx(-) // Hypoxia, possible HCAP Scx: ESBL Kleb - CXR 02/02 : Extensive bilateral interstitial and airspace opacities, unchanged // h/o CoNS bacteremia 11/05 ( 01/09 ) ?real ( PICC tip+ ) vs contaminant r/o recurrence/persistence - surveillance BCx(-) // h/o right ankle cellulitis / osteomyelitis / hardware infection SP incomplete Rx ( recommended to complete 6 weeks IV daptomycin, cefepime ( end ), but daughter apparently declined at last discharge per documentation ) - SP hardware removal 12/15 - no culture sent - 3P bone scan: 3 phase increased activity in region of distal aspect of right fibula compatible with hardware loosening and/or osteomyelitis - XR: surgical hardware seen reducing old healed distal fibular and medial malleolar fractures. No acute fractures. No dislocations. Bones are demineralized. - elevated ESR, CRP - h/o right ankle ORIF // Probable sepsis,SP // Leukocytosis , stable // VDRF intubated 02/07 // ARF on CKD --> IHD per renal SP placement of tunneled right jugular hemodialysis catheter. 01/29 // Dementia // DM2 - HbA1c 6.1% // h/o CAD - trop(-) x1 // NH resident // VRE colonized // No ABX allergies // Full Code PLAN: - on Merrem d# 6 ( 02/07 SP DC Teflaro d# 10 ) ( 01/28 SP IV cefepime d# 10 IV Vanco d# 2 ) - monitor CBC, temperatures - monitor BMP - monitor CXR - respiratory support prn - DNR poor prognosis , possible comfort care Subjective Constitutional: Denies: anorexia, chills, drenching sweats, fatigue, fever, no symptoms, other Allergies: Coded Allergies: MORPHINE (Verified Adverse Reaction, Severe, PARADOXICAL REACTION, 10/08/12 ) Objective Vital Signs Last 24 Hour Vital Signs Date Time Temp Pulse Resp B/P Pulse Ox O2 Delivery O2 Flow Rate FiO2 02/12/17 15:00 71 28 97/81 100 Mechanical Ventilator 90 02/12/17 14:40 68 27 90 02/12/17 14:30 66 23 97/21 100 Mechanical Ventilator 90 02/12/17 14:14 104/32 02/12/17 14:00 63 23 109/11 100 Mechanical Ventilator 90 02/12/17 13:30 67 26 129/107 100 Mechanical Ventilator 90 02/12/17 13:00 65 23 131/51 100 Mechanical Ventilator 90 02/12/17 12:50 72 27 90 02/12/17 12:00 63 02/12/17 12:00 90 02/12/17 12:00 98.7 57 22 88/31 100 Mechanical Ventilator 90 02/12/17 11:30 63 22 86/64 100 Mechanical Ventilator 90 02/12/17 11:00 62 23 111/35 100 Mechanical Ventilator 90 02/12/17 10:50 63 27 90 02/12/17 10:30 60 24 111/23 100 Mechanical Ventilator 90 02/12/17 10:15 60 24 80/40 100 Mechanical Ventilator 90 02/12/17 10:03 60 24 116/89 100 Mechanical Ventilator 90 02/12/17 09:30 61 26 96/26 100 Mechanical Ventilator 90 02/12/17 09:06 60 26 92/32 100 Mechanical Ventilator 90 02/12/17 08:33 62 26 90 02/12/17 08:30 61 26 89/38 100 Mechanical Ventilator 90 02/12/17 08:00 97.6 60 25 102/25 100 Mechanical Ventilator 90 02/12/17 08:00 90 02/12/17 08:00 58 02/12/17 07:30 58 26 110/30 100 Mechanical Ventilator 90 02/12/17 07:00 58 26 90 02/12/17 07:00 105/90 02/12/17 07:00 63 17 105/90 100 Mechanical Ventilator 90 02/12/17 06:30 57 26 114/53 100 Mechanical Ventilator 90 02/12/17 06:00 60 25 116/29 100 Mechanical Ventilator 90 02/12/17 06:00 116/29 02/12/17 05:30 63 22 115/17 100 Mechanical Ventilator 90 02/12/17 05:30 60 26 90 02/12/17 05:00 60 25 107/32 100 Mechanical Ventilator 90 02/12/17 05:00 107/32 02/12/17 04:30 60 26 119/25 100 Mechanical Ventilator 90 02/12/17 04:00 90 02/12/17 04:00 97.8 60 26 104/27 100 Mechanical Ventilator 90 02/12/17 04:00 60 02/12/17 04:00 104/27 02/12/17 03:30 61 25 100/28 100 Mechanical Ventilator 90 02/12/17 03:30 60 26 90 02/12/17 03:00 108/26 02/12/17 03:00 62 26 108/26 100 Mechanical Ventilator 90 02/12/17 02:30 64 18 127/38 100 Mechanical Ventilator 90 02/12/17 02:00 107/91 02/12/17 02:00 67 22 107/91 100 Mechanical Ventilator 90 02/12/17 01:30 66 26 113/34 100 Mechanical Ventilator 90 02/12/17 01:24 64 29 90 02/12/17 01:00 64 26 101/25 100 Mechanical Ventilator 90 02/12/17 01:00 101/25 02/12/17 00:30 66 26 111/96 100 Mechanical Ventilator 90 02/12/17 00:21 112/33 02/12/17 00:00 72 02/12/17 00:00 90 02/12/17 00:00 97.7 70 24 102/38 100 Mechanical Ventilator 90 02/11/17 23:45 72 24 126/39 100 Mechanical Ventilator 90 02/11/17 23:30 73 24 131/33 100 Mechanical Ventilator 90 02/11/17 23:29 74 29 Mechanical Ventilator 90 02/11/17 23:22 74 29 90 02/11/17 23:15 75 26 126/37 100 Mechanical Ventilator 90 02/11/17 23:00 141/36 02/11/17 23:00 74 26 141/36 100 Mechanical Ventilator 90 02/11/17 22:30 112 28 94/81 100 Mechanical Ventilator 90 02/11/17 22:00 103 17 94/32 100 Mechanical Ventilator 90 02/11/17 22:00 94/32 02/11/17 21:30 108 28 104/80 100 Mechanical Ventilator 90 02/11/17 21:24 66 28 90 02/11/17 21:02 113/51 02/11/17 21:00 93 27 101/38 100 Mechanical Ventilator 90 02/11/17 20:30 145 28 113/51 100 Mechanical Ventilator 90 02/11/17 20:00 90 02/11/17 20:00 147 02/11/17 20:00 97.5 92 27 105/47 100 Mechanical Ventilator 90 02/11/17 20:00 105/47 02/11/17 19:30 112 26 126/60 99 Mechanical Ventilator 90 02/11/17 19:30 145 32 90 02/11/17 19:00 115 25 126/60 100 Mechanical Ventilator 90 02/11/17 18:50 110/65 02/11/17 18:00 123/56 02/11/17 18:00 89/64 02/11/17 18:00 105 21 123/37 100 Mechanical Ventilator 100 02/11/17 17:26 104 29 90 02/11/17 17:00 104/56 02/11/17 17:00 122 23 89/37 100 Mechanical Ventilator 100 02/11/17 16:45 120 20 80/37 100 Mechanical Ventilator 100 02/11/17 16:30 101 23 87/33 100 Mechanical Ventilator 100 02/11/17 16:15 118 23 83/33 100 Mechanical Ventilator 100 Height (Feet): 5 Height (Inches): 1.00 Weight (Pounds): 200 HEENT: atraumatic Respiratory/Chest: lungs clear, normal breath sounds Cardiovascular: normal rate, regular rhythm Abdomen: soft, non tender, no organomegaly Laboratory Tests Test 02/12/17 04:05 White Blood Count 27.5 K/UL (4.8-10.8) *H Red Blood Count 2.87 M/UL (4.20-5.40) L Hemoglobin 8.7 G/DL (12.0-16.0) L Hematocrit 26.1 % (37.0-47.0) L Mean Corpuscular Volume 91 FL (80-99) Mean Corpuscular Hemoglobin 30.5 PG (27.0-31.0) Mean Corpuscular Hemoglobin Concent 33.5 G/DL (32.0-36.0) Red Cell Distribution Width 16.1 % (11.6-14.8) H Platelet Count 30 K/UL (150-450) L Mean Platelet Volume 8.0 FL (6.5-10.1) Neutrophils (%) (Auto) % (45.0-75.0) Lymphocytes (%) (Auto) % (20.0-45.0) Monocytes (%) (Auto) % (1.0-10.0) Eosinophils (%) (Auto) % (0.0-3.0) Basophils (%) (Auto) % (0.0-2.0) Differential Total Cells Counted 100 Neutrophils % (Manual) 76 % (45-75) H Lymphocytes % (Manual) 12 % (20-45) L Monocytes % (Manual) 8 % (1-10) Eosinophils % (Manual) 2 % (0-3) Basophils % (Manual) 0 % (0-2) Band Neutrophils 2 % (0-8) Nucleated Red Blood Cells 4 /100 WBC Platelet Estimate Decreased L Platelet Morphology Normal Hypochromasia 2+ Anisocytosis 1+ Spherocytes 1+ Sodium Level 141 mEQ/L (135-145) Potassium Level 3.6 mEQ/L (3.4-4.9) Chloride Level 101 mEQ/L (98-107) Carbon Dioxide Level 25 mEQ/L (20-30) Anion Gap 15 (5-15) Blood Urea Nitrogen 61 mg/dL (7-23) H Creatinine 3.4 mg/dL (0.5-0.9) H Estimat Glomerular Filtration Rate mL/min (>60) Glucose Level 119 mg/dL (74-106) H Uric Acid 5.2 mg/dL (3.0-7.5) Calcium Level 7.8 mg/dL (8.6-10.2) L Phosphorus Level 3.7 mg/dL (2.5-4.8) Magnesium Level 1.8 mg/dL (1.7-2.5) Total Bilirubin 0.9 mg/dL (0.0-1.2) Aspartate Amino Transf (AST/SGOT) 22 U/L (5-40) Alanine Aminotransferase (ALT/SGPT) 23 U/L (3-33) Alkaline Phosphatase 263 U/L (35-104) H C-Reactive Protein, Quantitative 20.6 mg/dL (< 0.5) H Pro-B-Type Natriuretic Peptide 83715 pg/mL (0-450) H Total Protein 4.5 g/dL (6.6-8.7) L Albumin 1.6 g/dL (3.5-5.2) L Globulin 2.9 g/dL Albumin/Globulin Ratio 0.5 (1.0-2.7) L Current Medications Medications (Trade) Dose Ordered Sig/Rina Route PRN Reason Start Time Stop Time Status Last Admin Dose Admin Acetaminophen (Tylenol) 650 mg Q6H PRN ORAL Mild Pain/Temp > 100.5 02/07/17 17:00 03/09/17 16:59 Acetaminophen/ Hydrocodone Bitart (Dysart 5/325) 1 tab Q4H PRN GT Moderate Pain (Pain Scale 4-6) 02/07/17 17:00 02/14/17 16:59 02/08/17 23:01 Albuterol/ Ipratropium (DuoNeb 0.5-3(2.5)mg/3ml) 3 ml Q4H PRN HHN Shortness of Breath 02/07/17 17:00 02/12/17 16:59 Dextrose (Dextrose 50%) STAT PRN IV Hypoglycemia 02/07/17 17:00 03/09/17 16:59 Hydrocortisone (Solu-CORTEF) 100 mg EVERY 8 HOURS IV 02/12/17 16:00 03/14/17 15:59 UNV Insulin Aspart (NovoLOG) Q6HR SUBQ 02/07/17 18:00 03/09/17 17:59 02/12/17 12:04 Lorazepam 1 mg 1 mg Q1H PRN IV For Anxiety 02/07/17 22:30 02/14/17 22:29 Menthol/Methyl Salicylate (Bengay) 1 applic FOUR TIMES A DAY TOPIC 02/07/17 18:00 03/09/17 17:59 02/12/17 12:04 Meropenem/Sodium Chloride (Merrem/Sodium Chloride) 55 ml @ 110 mls/hr DAILY@1400 IVPB 02/08/17 14:00 02/17/17 13:59 02/12/17 14:13 Nitroglycerin (Ntg) 0.4 mg Q5M X 3 DOSES PRN SL Prn Chest Pain 02/07/17 16:00 03/09/17 15:59 Norepinephrine Bitartrate/ Dextrose (Levophed/D5W 500ml) 558 ml @ 0 mls/hr Q24H IV 02/12/17 00:00 03/14/17 00:00 02/12/17 14:14 Ondansetron HCl (Zofran) 4 mg Q6H PRN IVP Nausea & Vomiting 02/07/17 17:00 03/09/17 16:59 02/11/17 10:59 Pantoprazole (Protonix) 40 mg EVERY 12 HOURS IVP 02/07/17 21:00 03/09/17 20:59 02/12/17 09:06 Polyethylene Glycol (Miralax) 17 gm DAILYPRN PRN GT Constipation 02/07/17 17:00 03/09/17 16:59 Sodium Chloride 1,000 ml @ 500 mls/hr Q2H PRN IVLG sbp<90 during hd 02/11/17 22:23 03/13/17 22:22 GISELLA JEROME M.D. Feb 12, 2017 16:03
[2017-02-12] MEDS: Hydrocortisone 100mg Inj IV SCH ×2 (17:08→21:46)
--- NOTE | 2017-02-12 22:14 | General Progress Note ---
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 bilateral right greater than left pleural effusions and mediastinal lymphadenopathy - she is a poor candidate for biopsy and has a poor prognosis # Anemia 2/2 chronic disease - s/p multiple units of blood # Leukocytosis - related to sepsis and underlying infection, is on antibiotics # Respiratory failure s/p intubation # Respiratory acidosis # Renal failure # ALOC # Sepsis Recs: - Considering terminal extubation, comfort care as per primary - Transfuse to hgb goal >7, plt goal >20k if bleeding --> conservative management - Have order for haptoglobin and INR today - She is off heparin, plavix, aspirin - Agree to administer FFP if INR >2 - Does not require a biopsy as has poor prognosis and poor outcome at this time - NG feeds at maximal rate - Appreciate consultation! continue to follow Subjective ROS Limited/Unobtainable: Yes Hematologic/Lymphatic: Reports: anemia Allergies: Coded Allergies: MORPHINE (Verified Adverse Reaction, Severe, PARADOXICAL REACTION, 10/08/12 ) Subjective remains anemic, considering terminal extubation, remains critically ill Objective Last 24 Hour Vital Signs Date Time Temp Pulse Resp B/P Pulse Ox O2 Delivery O2 Flow Rate FiO2 02/12/17 21:30 69 26 113/18 99 Mechanical Ventilator 80 02/12/17 21:06 74 30 80 02/12/17 21:00 68 25 125/34 99 Mechanical Ventilator 80 02/12/17 20:30 68 25 108/23 100 Mechanical Ventilator 80 02/12/17 20:00 67 02/12/17 20:00 80 02/12/17 20:00 98.4 64 25 103/34 100 Mechanical Ventilator 80 02/12/17 19:45 67 25 70/55 100 Mechanical Ventilator 80 02/12/17 19:30 67 25 98/32 99 Mechanical Ventilator 80 02/12/17 19:15 68 27 91/28 100 Mechanical Ventilator 80 02/12/17 19:08 71 27 80 02/12/17 19:00 74 20 59/37 99 Mechanical Ventilator 80 02/12/17 18:30 69 20 122/74 99 Mechanical Ventilator 90 02/12/17 18:00 67 25 122/70 100 Mechanical Ventilator 90 02/12/17 17:30 65 25 99/21 100 Mechanical Ventilator 90 02/12/17 17:00 66 26 110/29 100 Mechanical Ventilator 90 02/12/17 16:57 68 25 90 02/12/17 16:30 67 25 101/20 100 Mechanical Ventilator 90 02/12/17 16:00 90 02/12/17 16:00 71 02/12/17 16:00 98.2 68 26 91/29 100 Mechanical Ventilator 90 02/12/17 15:30 65 25 101/60 100 Mechanical Ventilator 90 02/12/17 15:00 71 28 97/81 100 Mechanical Ventilator 90 02/12/17 14:40 68 27 90 02/12/17 14:30 66 23 97/21 100 Mechanical Ventilator 90 02/12/17 14:14 104/32 02/12/17 14:00 63 23 109/11 100 Mechanical Ventilator 90 02/12/17 13:30 67 26 129/107 100 Mechanical Ventilator 90 02/12/17 13:00 65 23 131/51 100 Mechanical Ventilator 90 02/12/17 12:50 72 27 90 02/12/17 12:00 63 02/12/17 12:00 90 02/12/17 12:00 98.7 57 22 88/31 100 Mechanical Ventilator 90 02/12/17 11:30 63 22 86/64 100 Mechanical Ventilator 90 02/12/17 11:00 62 23 111/35 100 Mechanical Ventilator 90 02/12/17 10:50 63 27 90 02/12/17 10:30 60 24 111/23 100 Mechanical Ventilator 90 02/12/17 10:15 60 24 80/40 100 Mechanical Ventilator 90 02/12/17 10:03 60 24 116/89 100 Mechanical Ventilator 90 02/12/17 09:30 61 26 96/26 100 Mechanical Ventilator 90 02/12/17 09:06 60 26 92/32 100 Mechanical Ventilator 90 02/12/17 08:33 62 26 90 02/12/17 08:30 61 26 89/38 100 Mechanical Ventilator 90 02/12/17 08:00 97.6 60 25 102/25 100 Mechanical Ventilator 90 02/12/17 08:00 90 02/12/17 08:00 58 02/12/17 07:30 58 26 110/30 100 Mechanical Ventilator 90 02/12/17 07:00 58 26 90 02/12/17 07:00 105/90 4/13/17 07:00 63 17 105/90 100 Mechanical Ventilator 90 02/12/17 06:30 57 26 114/53 100 Mechanical Ventilator 90 02/12/17 06:00 60 25 116/29 100 Mechanical Ventilator 90 02/12/17 06:00 116/29 02/12/17 05:30 63 22 115/17 100 Mechanical Ventilator 90 02/12/17 05:30 60 26 90 02/12/17 05:00 60 25 107/32 100 Mechanical Ventilator 90 02/12/17 05:00 107/32 02/12/17 04:30 60 26 119/25 100 Mechanical Ventilator 90 02/12/17 04:00 90 02/12/17 04:00 97.8 60 26 104/27 100 Mechanical Ventilator 90 02/12/17 04:00 60 02/12/17 04:00 104/27 02/12/17 03:30 61 25 100/28 100 Mechanical Ventilator 90 02/12/17 03:30 60 26 90 02/12/17 03:00 108/26 02/12/17 03:00 62 26 108/26 100 Mechanical Ventilator 90 02/12/17 02:30 64 18 127/38 100 Mechanical Ventilator 90 02/12/17 02:00 107/91 02/12/17 02:00 67 22 107/91 100 Mechanical Ventilator 90 02/12/17 01:30 66 26 113/34 100 Mechanical Ventilator 90 02/12/17 01:24 64 29 90 02/12/17 01:00 64 26 101/25 100 Mechanical Ventilator 90 02/12/17 01:00 101/25 02/12/17 00:30 66 26 111/96 100 Mechanical Ventilator 90 02/12/17 00:21 112/33 02/12/17 00:00 72 02/12/17 00:00 90 02/12/17 00:00 97.7 70 24 102/38 100 Mechanical Ventilator 90 02/11/17 23:45 72 24 126/39 100 Mechanical Ventilator 90 02/11/17 23:30 73 24 131/33 100 Mechanical Ventilator 90 02/11/17 23:29 74 29 Mechanical Ventilator 90 02/11/17 23:22 74 29 90 02/11/17 23:15 75 26 126/37 100 Mechanical Ventilator 90 02/11/17 23:00 141/36 02/11/17 23:00 74 26 141/36 100 Mechanical Ventilator 90 02/11/17 22:30 112 28 94/81 100 Mechanical Ventilator 90 Intake and Output 02/11/17 02/12/17 19:00 07:00 Intake Total 546.31 ml 588.60 ml Output Total 565 ml 10 ml Balance -18.69 ml 578.60 ml Free Water 60 ml IV Total 486.31 ml 588.60 ml Tube Feeding 0 ml Output Urine Total 0 ml 10 ml Gastric Drainage Total 325 ml Hemodialysis UF 120 ml Peritoneal Dialysis UF 120 ml Laboratory Tests 02/12/17 04:05: White Blood Count 27.5*H, Red Blood Count 2.87L, Hemoglobin 8.7L, Hematocrit 26.1L, Mean Corpuscular Volume 91, Mean Corpuscular Hemoglobin 30.5, Mean Corpuscular Hemoglobin Concent 33.5, Red Cell Distribution Width 16.1H, Platelet Count 30L, Mean Platelet Volume 8.0, Neutrophils (%) (Auto) , Lymphocytes (%) (Auto) , Monocytes (%) (Auto) , Eosinophils (%) (Auto) , Basophils (%) (Auto) , Differential Total Cells Counted 100, Neutrophils % ( Manual) 76H, Lymphocytes % (Manual) 12L, Monocytes % (Manual) 8, Eosinophils % ( Manual) 2, Basophils % (Manual) 0, Band Neutrophils 2, Nucleated Red Blood Cells 4, Platelet Estimate DecreasedL, Platelet Morphology Normal, Hypochromasia 2+, Anisocytosis 1+, Spherocytes 1+, Sodium Level 141, Potassium Level 3.6, Chloride Level 101, Carbon Dioxide Level 25, Anion Gap 15, Blood Urea Nitrogen 61H, Creatinine 3.4H, Estimat Glomerular Filtration Rate , Glucose Level 119H, Uric Acid 5.2, Calcium Level 7.8L, Phosphorus Level 3.7, Magnesium Level 1.8, Total Bilirubin 0.9, Aspartate Amino Transf (AST/SGOT) 22, Alanine Aminotransferase (ALT/SGPT) 23, Alkaline Phosphatase 263H, C-Reactive Protein, Quantitative 20.6H, Pro-B-Type Natriuretic Peptide 04006Z, Total Protein 4.5L, Albumin 1.6L, Globulin 2.9, Albumin/Globulin Ratio 0.5L Height (Feet): 5 Height (Inches): 1.00 Weight (Pounds): 200 General Appearance: no apparent distress EENT: PERRL/EOMI Neck: non-tender Cardiovascular: normal peripheral pulses Respiratory/Chest: other - on a vent Abdomen: normal bowel sounds Extremities: normal range of motion Edema: no edema noted Leg (L), no edema noted Leg (R), no edema noted Pedal (L) , no edema noted Pedal (R) Neurologic: unresponsive Skin: normal pigmentation Mariano Ortiz Feb 12, 2017 22:14
[2017-02-13] VITALS (49 sets, daily range): BP systolic 85–158; BP diastolic 20–88
[2017-02-13 00:38] LABS: INR 1.2 (0.9-1.1); PROTHROMBIN TIME 12.2 SEC (9.30-11.50)
[2017-02-13] MEDS: Norepinephrine Bitartrate 8 MG in D5W 500ml 550 ML IV SCH (03:16)
[2017-02-13 04:54] LABS: MEAN CORPUSCULAR HEMOGLOBIN 30.1 PG (27.0-31.0); MEAN CORPUSCULAR HGB CONC 33.2 G/DL (32.0-36.0); MEAN CORPUSCULAR VOLUME 91 FL (80-99); MEAN PLATELET VOLUME 10.7 FL (6.5-10.1); PLATELET COUNT 25 K/UL (150-450); RED BLOOD COUNT 2.67 M/UL (4.20-5.40); RED CELL DISTRIBUTION WIDTH 15.9 % (11.6-14.8)
[2017-02-13 05:05] LABS: WHITE BLOOD COUNT 23.8 K/UL (4.8-10.8)
[2017-02-13] MEDS: Hydrocortisone 100mg Inj IV SCH ×3 (05:40→22:18)
[2017-02-13] MEDS: NovoLOG Insulin Flexpen SUBQ SCH ×4 (05:41→23:35)
[2017-02-13 06:53] LABS: ALANINE AMINOTRANSFERASE 15 U/L (3-33); ALBUMIN/GLOBULIN RATIO 0.6 (1.0-2.7); ANION GAP 15 (5-15); ASPARTATE AMINO TRANSFERASE 19 U/L (5-40); CALCIUM 8.1 mg/dL (8.6-10.2); CARBON DIOXIDE 24 mEQ/L (20-30); CHLORIDE 97 mEQ/L (98-107); CREATININE 4.3 mg/dL (0.5-0.9); HEMOLYSIS 3; MAGNESIUM 1.8 mg/dL (1.7-2.5); POTASSIUM 4.2 mEQ/L (3.4-4.9); SODIUM 136 mEQ/L (135-145); TOTAL PROTEIN 4.5 g/dL (6.6-8.7)
[2017-02-13 06:56] LABS: CRP QUANT 18.5 mg/dL (< 0.5); URIC ACID 7.1 mg/dL (3.0-7.5)
--- NOTE | 2017-02-13 09:04 | Critical Care Progress Note ---
Assessment/Plan Assessment/Plan hypoxemia respiratory failure respiratory acidosis pulmonary infiltrates thrombocytopenia renal failure ALOC chronic encephalopathy septic shock leukocytosis pulmonary infiltrates ARDS DIC likely s/p transfusion atrial fibrillation hypotension PLAN son updated; DNR with possible terminal extubaton off heparin, plavix, aspirin no chance of recovery platelets dropping follow up labs afib controlled levophed and pressors as needed; lower dose monitor renal function; stable on HD per renal antibiotics noted unable to taper fio2; now on 70% hyperventilate follow up abg PRN prognosis poor; wbc slightly better possible terminal extubation medications/laboratory data/nursing notes/ICU care reviewed in detail note reviewed and edited care discussed with RN and RT ICU time spent 36 minutes Critical Care - Subjective ROS Limited/Unobtainable: Yes Condition: critical EKG Rhythm: Atrial Fibrillation I&O: Intake and Output 02/12/17 02/13/17 19:00 07:00 Intake Total 497.13 ml 569.16 ml Output Total 0 ml 0 ml Balance 497.13 ml 569.16 ml IV Total 497.13 ml 569.16 ml Output Urine Total 0 ml 0 ml # Bowel Movements 2 2 Critical Care - Objective ET-Tube: 7.0 ET Position: 22 Last 24 Hour Vital Signs Date Time Temp Pulse Resp B/P Pulse Ox O2 Delivery O2 Flow Rate FiO2 02/13/17 08:30 65 22 99/26 99 Mechanical Ventilator 70 02/13/17 08:00 65 02/13/17 08:00 97.8 65 23 114/24 99 Mechanical Ventilator 70 02/13/17 08:00 70 02/13/17 08:00 114/24 02/13/17 07:30 69 17 98/30 100 Mechanical Ventilator 80 02/13/17 07:15 69 17 98/30 100 Mechanical Ventilator 80 02/13/17 07:10 95 27 70 02/13/17 07:00 68 22 98/29 100 Mechanical Ventilator 80 02/13/17 06:30 83 22 104/36 99 Mechanical Ventilator 80 02/13/17 06:00 64 27 106/23 99 Mechanical Ventilator 80 02/13/17 05:30 65 27 103/25 99 Mechanical Ventilator 80 02/13/17 05:09 70 34 80 02/13/17 05:00 65 24 109/20 99 Mechanical Ventilator 80 02/13/17 04:30 66 26 114/48 100 Mechanical Ventilator 80 02/13/17 04:00 98.5 66 26 98/29 100 Mechanical Ventilator 80 02/13/17 04:00 71 02/13/17 04:00 80 02/13/17 03:30 69 24 91/53 100 Mechanical Ventilator 80 02/13/17 03:16 98/29 02/13/17 03:09 74 29 80 02/13/17 03:00 74 26 95/29 100 Mechanical Ventilator 80 02/13/17 02:30 94 25 121/33 100 Mechanical Ventilator 80 02/13/17 02:00 71 27 101/24 100 Mechanical Ventilator 80 02/13/17 01:30 70 27 106/30 100 Mechanical Ventilator 80 02/13/17 01:25 73 29 80 02/13/17 01:00 70 28 121/23 100 Mechanical Ventilator 80 02/13/17 00:30 80 24 101/28 100 Mechanical Ventilator 80 02/13/17 00:00 98.9 76 27 107/25 100 Mechanical Ventilator 80 02/13/17 00:00 75 02/13/17 00:00 80 02/12/17 23:30 71 28 94/24 100 Mechanical Ventilator 80 02/12/17 23:08 73 31 80 02/12/17 23:00 72 26 108/31 100 Mechanical Ventilator 80 02/12/17 22:30 69 26 100/29 100 Mechanical Ventilator 80 02/12/17 22:00 72 27 104/51 99 Mechanical Ventilator 80 02/12/17 21:30 69 26 113/18 99 Mechanical Ventilator 80 02/12/17 21:06 74 30 80 02/12/17 21:00 68 25 125/34 99 Mechanical Ventilator 80 02/12/17 20:30 68 25 108/23 100 Mechanical Ventilator 80 02/12/17 20:00 67 02/12/17 20:00 80 02/12/17 20:00 98.4 64 25 103/34 100 Mechanical Ventilator 80 02/12/17 19:45 67 25 70/55 100 Mechanical Ventilator 80 02/12/17 19:30 67 25 98/32 99 Mechanical Ventilator 80 02/12/17 19:15 68 27 91/28 100 Mechanical Ventilator 80 02/12/17 19:08 71 27 80 02/12/17 19:00 74 20 59/37 99 Mechanical Ventilator 80 02/12/17 18:30 69 20 122/74 99 Mechanical Ventilator 90 02/12/17 18:00 67 25 122/70 100 Mechanical Ventilator 90 02/12/17 17:30 65 25 99/21 100 Mechanical Ventilator 90 02/12/17 17:00 66 26 110/29 100 Mechanical Ventilator 90 02/12/17 16:57 68 25 90 02/12/17 16:30 67 25 101/20 100 Mechanical Ventilator 90 02/12/17 16:00 90 02/12/17 16:00 71 02/12/17 16:00 98.2 68 26 91/29 100 Mechanical Ventilator 90 02/12/17 15:30 65 25 101/60 100 Mechanical Ventilator 90 02/12/17 15:00 71 28 97/81 100 Mechanical Ventilator 90 02/12/17 14:40 68 27 90 02/12/17 14:30 66 23 97/21 100 Mechanical Ventilator 90 02/12/17 14:14 104/32 02/12/17 14:00 63 23 109/11 100 Mechanical Ventilator 90 02/12/17 13:30 67 26 129/107 100 Mechanical Ventilator 90 02/12/17 13:00 65 23 131/51 100 Mechanical Ventilator 90 02/12/17 12:50 72 27 90 02/12/17 12:00 63 02/12/17 12:00 90 02/12/17 12:00 98.7 57 22 88/31 100 Mechanical Ventilator 90 02/12/17 11:30 63 22 86/64 100 Mechanical Ventilator 90 02/12/17 11:00 62 23 111/35 100 Mechanical Ventilator 90 02/12/17 10:50 63 27 90 02/12/17 10:30 60 24 111/23 100 Mechanical Ventilator 90 02/12/17 10:15 60 24 80/40 100 Mechanical Ventilator 90 02/12/17 10:03 60 24 116/89 100 Mechanical Ventilator 90 02/12/17 09:30 61 26 96/26 100 Mechanical Ventilator 90 02/12/17 09:06 60 26 92/32 100 Mechanical Ventilator 90 Labs: Labs Test 02/10/17 10:16 02/11/17 02:50 02/11/17 03:00 02/11/17 11:05 Arterial Blood pH 7.300 (7.350-7.450) Arterial Blood Partial Pressure CO2 69.0 mmHg (35.0-45.0) Arterial Blood Partial Pressure O2 57.0 mmHg (75.0-100.0) Arterial Blood HCO3 33.0 mmol/L (22.0-26.0) Arterial Blood Oxygen Saturation 89.0 % (92.0-98.0) Arterial Blood Base Excess 6 Levy Test Positive Sodium Level 141 mEQ/L (135-145) 142 mEQ/L (135-145) Potassium Level 4.1 mEQ/L (3.4-4.9) 3.8 mEQ/L (3.4-4.9) Chloride Level 98 mEQ/L (98-107) 101 mEQ/L (98-107) Carbon Dioxide Level 31 mEQ/L (20-30) 25 mEQ/L (20-30) Anion Gap 12 (5-15) 16 (5-15) Blood Urea Nitrogen 72 mg/dL (7-23) 47 mg/dL (7-23) Creatinine 4.2 mg/dL (0.5-0.9) 3.1 mg/dL (0.5-0.9) Estimat Glomerular Filtration Rate mL/min (>60) mL/min (>60) Glucose Level 174 mg/dL (74-106) 174 mg/dL (74-106) Calcium Level 9.2 mg/dL (8.6-10.2) 8.3 mg/dL (8.6-10.2) Phosphorus Level < 0.6 mg/dL (2.5-4.8) Magnesium Level 2.0 mg/dL (1.7-2.5) Total Bilirubin 1.0 mg/dL (0.0-1.2) Aspartate Amino Transf (AST/SGOT) 30 U/L (5-40) Alanine Aminotransferase (ALT/SGPT) 37 U/L (3-33) Alkaline Phosphatase 296 U/L (35-104) Total Protein 4.6 g/dL (6.6-8.7) Albumin 1.8 g/dL (3.5-5.2) Globulin 2.8 g/dL Albumin/Globulin Ratio 0.6 (1.0-2.7) White Blood Count 24.0 K/UL (4.8-10.8) 27.1 K/UL (4.8-10.8) Red Blood Count 2.96 M/UL (4.20-5.40) 3.28 M/UL (4.20-5.40) Hemoglobin 8.8 G/DL (12.0-16.0) 9.8 G/DL (12.0-16.0) Hematocrit 26.7 % (37.0-47.0) 30.1 % (37.0-47.0) Mean Corpuscular Volume 90 FL (80-99) 92 FL (80-99) Mean Corpuscular Hemoglobin 29.8 PG (27.0-31.0) 29.8 PG (27.0-31.0) Mean Corpuscular Hemoglobin Concent 33.1 G/DL (32.0-36.0) 32.5 G/DL (32.0-36.0) Red Cell Distribution Width 15.6 % (11.6-14.8) 16.3 % (11.6-14.8) Platelet Count 29 K/UL (150-450) 33 K/UL (150-450) Mean Platelet Volume 9.2 FL (6.5-10.1) 7.6 FL (6.5-10.1) Neutrophils (%) (Auto) % (45.0-75.0) % (45.0-75.0) Lymphocytes (%) (Auto) % (20.0-45.0) % (20.0-45.0) Monocytes (%) (Auto) % (1.0-10.0) % (1.0-10.0) Eosinophils (%) (Auto) % (0.0-3.0) % (0.0-3.0) Basophils (%) (Auto) % (0.0-2.0) % (0.0-2.0) Differential Total Cells Counted 100 100 Neutrophils % (Manual) 71 % (45-75) 80 % (45-75) Lymphocytes % (Manual) 15 % (20-45) 7 % (20-45) Monocytes % (Manual) 0 % (1-10) 10 % (1-10) Eosinophils % (Manual) 1 % (0-3) 2 % (0-3) Basophils % (Manual) 0 % (0-2) 0 % (0-2) Band Neutrophils 13 % (0-8) 0 % (0-8) Platelet Estimate Decreased Decreased Platelet Morphology Normal Normal Red Blood Cell Morphology Normal Myelocytes % 1 % (0-0) Nucleated Red Blood Cells 7 /100 WBC Hypochromasia 2+ Anisocytosis 1+ Spherocytes 2+ Test 02/12/17 04:05 02/12/17 23:30 02/13/17 04:05 White Blood Count 27.5 K/UL (4.8-10.8) 23.8 K/UL (4.8-10.8) Red Blood Count 2.87 M/UL (4.20-5.40) 2.67 M/UL (4.20-5.40) Hemoglobin 8.7 G/DL (12.0-16.0) 8.0 G/DL (12.0-16.0) Hematocrit 26.1 % (37.0-47.0) 24.2 % (37.0-47.0) Mean Corpuscular Volume 91 FL (80-99) 91 FL (80-99) Mean Corpuscular Hemoglobin 30.5 PG (27.0-31.0) 30.1 PG (27.0-31.0) Mean Corpuscular Hemoglobin Concent 33.5 G/DL (32.0-36.0) 33.2 G/DL (32.0-36.0) Red Cell Distribution Width 16.1 % (11.6-14.8) 15.9 % (11.6-14.8) Platelet Count 30 K/UL (150-450) 25 K/UL (150-450) Mean Platelet Volume 8.0 FL (6.5-10.1) 10.7 FL (6.5-10.1) Neutrophils (%) (Auto) % (45.0-75.0) % (45.0-75.0) Lymphocytes (%) (Auto) % (20.0-45.0) % (20.0-45.0) Monocytes (%) (Auto) % (1.0-10.0) % (1.0-10.0) Eosinophils (%) (Auto) % (0.0-3.0) % (0.0-3.0) Basophils (%) (Auto) % (0.0-2.0) % (0.0-2.0) Differential Total Cells Counted 100 Neutrophils % (Manual) 76 % (45-75) Lymphocytes % (Manual) 12 % (20-45) Monocytes % (Manual) 8 % (1-10) Eosinophils % (Manual) 2 % (0-3) Basophils % (Manual) 0 % (0-2) Band Neutrophils 2 % (0-8) Nucleated Red Blood Cells 4 /100 WBC Platelet Estimate Decreased Platelet Morphology Normal Hypochromasia 2+ Anisocytosis 1+ Spherocytes 1+ Sodium Level 141 mEQ/L (135-145) 136 mEQ/L (135-145) Potassium Level 3.6 mEQ/L (3.4-4.9) 4.2 mEQ/L (3.4-4.9) Chloride Level 101 mEQ/L (98-107) 97 mEQ/L (98-107) Carbon Dioxide Level 25 mEQ/L (20-30) 24 mEQ/L (20-30) Anion Gap 15 (5-15) 15 (5-15) Blood Urea Nitrogen 61 mg/dL (7-23) 78 mg/dL (7-23) Creatinine 3.4 mg/dL (0.5-0.9) 4.3 mg/dL (0.5-0.9) Estimat Glomerular Filtration Rate mL/min (>60) mL/min (>60) Glucose Level 119 mg/dL (74-106) 218 mg/dL (74-106) Uric Acid 5.2 mg/dL (3.0-7.5) 7.1 mg/dL (3.0-7.5) Calcium Level 7.8 mg/dL (8.6-10.2) 8.1 mg/dL (8.6-10.2) Phosphorus Level 3.7 mg/dL (2.5-4.8) 4.0 mg/dL (2.5-4.8) Magnesium Level 1.8 mg/dL (1.7-2.5) 1.8 mg/dL (1.7-2.5) Total Bilirubin 0.9 mg/dL (0.0-1.2) 0.9 mg/dL (0.0-1.2) Aspartate Amino Transf (AST/SGOT) 22 U/L (5-40) 19 U/L (5-40) Alanine Aminotransferase (ALT/SGPT) 23 U/L (3-33) 15 U/L (3-33) Alkaline Phosphatase 263 U/L (35-104) 264 U/L (35-104) C-Reactive Protein, Quantitative 20.6 mg/dL (< 0.5) 18.5 mg/dL (< 0.5) Pro-B-Type Natriuretic Peptide 57466 pg/mL (0-450) 40498 pg/mL (0-450) Total Protein 4.5 g/dL (6.6-8.7) 4.5 g/dL (6.6-8.7) Albumin 1.6 g/dL (3.5-5.2) 1.8 g/dL (3.5-5.2) Globulin 2.9 g/dL 2.7 g/dL Albumin/Globulin Ratio 0.5 (1.0-2.7) 0.6 (1.0-2.7) Haptoglobin < 29 mg/dL (30-200) Prothrombin Time 12.2 SEC (9.30-11.50) Prothromb Time International Ratio 1.2 (0.9-1.1) Gamma Glutamyl Transpeptidase 45 U/L (5-36) Objective: WDWN chronically ill appearing; on the ventilator NAD coarse breath sounds bilaterally with reduced rhonchi but no wheeze orally intubated S1S2 IRRR without MRG; rate controlled NABS nontender no HSM; feeding tube in place; no distention no CC; some edema nonfocal remains poorly responsive skin noted and examined pupils sluggish Accucheck: 227 FELIPE PATHAK Feb 13, 2017 09:04
[2017-02-13] MEDS: Pantoprazole Inj IVP SCH ×2 (09:20→20:53)
[2017-02-13] MEDS: Analgesic Balm 15gm TOPIC SCH ×4 (09:21→20:53)
[2017-02-13] MEDS ORDERED: NS 275ml ONE ×2 (10:44→16:42)
[2017-02-13] MEDS ORDERED: Tubing IV Secondary IV ONE (10:57)
[2017-02-13 11:10] LABS: ANISOCYTOSIS 1+; BAND NEUTROPHILS % (MANUAL) 0 % (0-8); BASOPHILS % (MANUAL) 0 % (0-2); EOSINOPHILS % (MANUAL) 0 % (0-3); LYMPHOCYTES % (MANUAL) 2 % (20-45); NEUTROPHILS % (MANUAL) 94 % (45-75); NUCLEATED RED BLOOD CELLS 3 /100 WBC; PLATELET ESTIMATE DECREASED; PLATELET MORPHOLOGY NORMAL; TOTAL CELLS COUNTED 100
[2017-02-13 11:11] LABS: HYPOCHROMASIA 1+; POLYCHROMASIA 1+
--- NOTE | 2017-02-13 13:13 | General Progress Note ---
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 bilateral right greater than left pleural effusions and mediastinal lymphadenopathy - she is a poor candidate for biopsy and has a poor prognosis # Anemia 2/2 chronic disease - s/p multiple units of blood # Leukocytosis - related to sepsis and underlying infection, is on antibiotics # Respiratory failure s/p intubation # Respiratory acidosis # Renal failure # ALOC # Sepsis Recs: - Considering terminal extubation, comfort care as per primary - Transfuse to hgb goal >7, plt goal >20k if bleeding --> conservative management - Have order for haptoglobin and INR today - She is off heparin, plavix, aspirin - Agree to administer FFP if INR >2 - Does not require a biopsy as has poor prognosis and poor outcome at this time - NG feeds at maximal rate - Appreciate consultation! continue to follow Subjective ROS Limited/Unobtainable: Yes Constitutional: Reports: no symptoms HEENT: Reports: no symptoms Cardiovascular: Reports: no symptoms Respiratory: Reports: other Gastrointestinal/Abdominal: Reports: no symptoms Genitourinary: Reports: no symptoms 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: Reports: no symptoms Endocrine: Reports: no symptoms Hematologic/Lymphatic: Reports: anemia Allergies: Coded Allergies: MORPHINE (Verified Adverse Reaction, Severe, PARADOXICAL REACTION, 10/08/12 ) Subjective remains anemic, considering terminal extubation, remains critically ill Objective Last 24 Hour Vital Signs Date Time Temp Pulse Resp B/P Pulse Ox O2 Delivery O2 Flow Rate FiO2 02/13/17 12:30 72 18 111/29 96 Mechanical Ventilator 70 02/13/17 12:00 72 02/13/17 12:00 70 02/13/17 12:00 97.6 72 21 93/54 99 Mechanical Ventilator 70 02/13/17 11:30 71 19 112/36 99 Mechanical Ventilator 70 02/13/17 11:10 69 29 60 02/13/17 11:00 73 18 92/34 98 Mechanical Ventilator 70 02/13/17 11:00 92/34 02/13/17 10:30 68 24 85/64 98 Mechanical Ventilator 70 02/13/17 10:00 68 28 134/88 98 Mechanical Ventilator 70 02/13/17 10:00 134/88 02/13/17 09:30 71 27 114/20 99 Mechanical Ventilator 70 02/13/17 09:05 66 28 60 02/13/17 09:00 96/32 02/13/17 09:00 68 21 96/32 98 Mechanical Ventilator 70 02/13/17 08:30 65 22 99/26 99 Mechanical Ventilator 70 02/13/17 08:00 65 02/13/17 08:00 97.8 65 23 114/24 99 Mechanical Ventilator 70 02/13/17 08:00 70 02/13/17 08:00 114/24 02/13/17 07:30 69 17 98/30 100 Mechanical Ventilator 80 02/13/17 07:15 69 17 98/30 100 Mechanical Ventilator 80 02/13/17 07:10 95 27 70 02/13/17 07:00 68 22 98/29 100 Mechanical Ventilator 80 02/13/17 06:30 83 22 104/36 99 Mechanical Ventilator 80 02/13/17 06:00 64 27 106/23 99 Mechanical Ventilator 80 02/13/17 05:30 65 27 103/25 99 Mechanical Ventilator 80 02/13/17 05:09 70 34 80 02/13/17 05:00 65 24 109/20 99 Mechanical Ventilator 80 02/13/17 04:30 66 26 114/48 100 Mechanical Ventilator 80 02/13/17 04:00 98.5 66 26 98/29 100 Mechanical Ventilator 80 02/13/17 04:00 71 02/13/17 04:00 80 02/13/17 03:30 69 24 91/53 100 Mechanical Ventilator 80 02/13/17 03:16 98/29 02/13/17 03:09 74 29 80 02/13/17 03:00 74 26 95/29 100 Mechanical Ventilator 80 02/13/17 02:30 94 25 121/33 100 Mechanical Ventilator 80 02/13/17 02:00 71 27 101/24 100 Mechanical Ventilator 80 02/13/17 01:30 70 27 106/30 100 Mechanical Ventilator 80 02/13/17 01:25 73 29 80 02/13/17 01:00 70 28 121/23 100 Mechanical Ventilator 80 02/13/17 00:30 80 24 101/28 100 Mechanical Ventilator 80 02/13/17 00:00 98.9 76 27 107/25 100 Mechanical Ventilator 80 02/13/17 00:00 75 02/13/17 00:00 80 02/12/17 23:30 71 28 94/24 100 Mechanical Ventilator 80 02/12/17 23:08 73 31 80 02/12/17 23:00 72 26 108/31 100 Mechanical Ventilator 80 02/12/17 22:30 69 26 100/29 100 Mechanical Ventilator 80 02/12/17 22:00 72 27 104/51 99 Mechanical Ventilator 80 02/12/17 21:30 69 26 113/18 99 Mechanical Ventilator 80 02/12/17 21:06 74 30 80 02/12/17 21:00 68 25 125/34 99 Mechanical Ventilator 80 02/12/17 20:30 68 25 108/23 100 Mechanical Ventilator 80 02/12/17 20:00 67 02/12/17 20:00 80 02/12/17 20:00 98.4 64 25 103/34 100 Mechanical Ventilator 80 02/12/17 19:45 67 25 70/55 100 Mechanical Ventilator 80 02/12/17 19:30 67 25 98/32 99 Mechanical Ventilator 80 02/12/17 19:15 68 27 91/28 100 Mechanical Ventilator 80 02/12/17 19:08 71 27 80 02/12/17 19:00 74 20 59/37 99 Mechanical Ventilator 80 02/12/17 18:30 69 20 122/74 99 Mechanical Ventilator 90 02/12/17 18:00 67 25 122/70 100 Mechanical Ventilator 90 02/12/17 17:30 65 25 99/21 100 Mechanical Ventilator 90 02/12/17 17:00 66 26 110/29 100 Mechanical Ventilator 90 02/12/17 16:57 68 25 90 02/12/17 16:30 67 25 101/20 100 Mechanical Ventilator 90 02/12/17 16:00 90 02/12/17 16:00 71 02/12/17 16:00 98.2 68 26 91/29 100 Mechanical Ventilator 90 02/12/17 15:30 65 25 101/60 100 Mechanical Ventilator 90 02/12/17 15:00 71 28 97/81 100 Mechanical Ventilator 90 02/12/17 14:40 68 27 90 02/12/17 14:30 66 23 97/21 100 Mechanical Ventilator 90 02/12/17 14:14 104/32 02/12/17 14:00 63 23 109/11 100 Mechanical Ventilator 90 02/12/17 13:30 67 26 129/107 100 Mechanical Ventilator 90 Intake and Output 4/13/17 4/14/17 19:00 07:00 Intake Total 497.13 ml 569.16 ml Output Total 0 ml 0 ml Balance 497.13 ml 569.16 ml IV Total 497.13 ml 569.16 ml Output Urine Total 0 ml 0 ml # Bowel Movements 2 2 Laboratory Tests 02/12/17 23:30: Haptoglobin < 29L, Prothrombin Time 12.2H, Prothromb Time International Ratio 1.2H 02/13/17 04:05: White Blood Count 23.8*H, Red Blood Count 2.67L, Hemoglobin 8.0L, Hematocrit 24.2L, Mean Corpuscular Volume 91, Mean Corpuscular Hemoglobin 30.1, Mean Corpuscular Hemoglobin Concent 33.2, Red Cell Distribution Width 15.9H, Platelet Count 25L, Mean Platelet Volume 10.7H, Neutrophils (%) (Auto) , Lymphocytes (%) (Auto) , Monocytes (%) (Auto) , Eosinophils (%) (Auto) , Basophils (%) (Auto) , Differential Total Cells Counted 100, Neutrophils % ( Manual) 94H, Lymphocytes % (Manual) 2L, Monocytes % (Manual) 4, Eosinophils % ( Manual) 0, Basophils % (Manual) 0, Band Neutrophils 0, Nucleated Red Blood Cells 3, Platelet Estimate DecreasedL, Platelet Morphology Normal, Polychromasia 1+, Hypochromasia 1+, Anisocytosis 1+, Sodium Level 136, Potassium Level 4.2, Chloride Level 97L, Carbon Dioxide Level 24, Anion Gap 15, Blood Urea Nitrogen 78H, Creatinine 4.3H, Estimat Glomerular Filtration Rate , Glucose Level 218#H, Uric Acid 7.1, Calcium Level 8.1L, Phosphorus Level 4.0, Magnesium Level 1.8, Total Bilirubin 0.9, Gamma Glutamyl Transpeptidase 45H, Aspartate Amino Transf (AST/SGOT) 19, Alanine Aminotransferase (ALT/SGPT) 15, Alkaline Phosphatase 264H, C-Reactive Protein, Quantitative 18.5H, Pro-B-Type Natriuretic Peptide 33107N, Total Protein 4.5L, Albumin 1.8L, Globulin 2.7, Albumin/Globulin Ratio 0.6L Height (Feet): 5 Height (Inches): 1.00 Weight (Pounds): 200 General Appearance: WD/WN EENT: PERRL/EOMI Neck: non-tender Cardiovascular: normal peripheral pulses Respiratory/Chest: chest wall non-tender Abdomen: normal bowel sounds Extremities: normal range of motion Edema: no edema noted Leg (L), no edema noted Leg (R), no edema noted Pedal (L) , no edema noted Pedal (R) Neurologic: first front ventilator II-XII grossly normal Skin: warm/dry Mariano Ortiz Feb 13, 2017 13:13
[2017-02-13] MEDS ORDERED: Hydromorphone 0.5mg/0.5ml inj IVP PRN (13:15)
--- NOTE | 2017-02-13 13:17 | General Progress Note ---
Assessment/Plan Status: unchanged Status Narrative on vent- on pressors- on hydrocortisone Assessment/Plan Has acute respiratory distress- intubated in ICU Septic shock ( Had long talk with daughter Gali 01/19 ) - Acute renal failure and hyperKalemia - Renal failure, likely diabetic nephropathy / HTN - Sepsis , Pneumonia, Respiratory failure and Hypoxia other - h/o Cellulitis in diabetic foot right LE - Decubitus ulcer - Dementia - Diabetes mellitus - Nonpressure ulcer to level of fascia right lateral ankle - S/P ORIF right ankle Plan: intubate - ICU On hydrocortisone Had permacath 01/30 HD last 02/12 monitor WBCs Phos supplement Monitor renal parameters and Vanco level- ARTUR Kidney done last admission- unremarkable Adjust BP meds- Avoid Nephrotoxics- discussed with CM Per orders Subjective ROS Limited/Unobtainable: Yes Allergies: Coded Allergies: MORPHINE (Verified Adverse Reaction, Severe, PARADOXICAL REACTION, 10/08/12 ) Objective Last 24 Hour Vital Signs Date Time Temp Pulse Resp B/P Pulse Ox O2 Delivery O2 Flow Rate FiO2 02/13/17 13:00 71 21 89/60 97 Mechanical Ventilator 70 02/13/17 12:30 72 18 111/29 96 Mechanical Ventilator 70 02/13/17 12:00 72 02/13/17 12:00 70 02/13/17 12:00 97.6 72 21 93/54 99 Mechanical Ventilator 70 02/13/17 11:30 71 19 112/36 99 Mechanical Ventilator 70 02/13/17 11:10 69 29 60 02/13/17 11:00 73 18 92/34 98 Mechanical Ventilator 70 02/13/17 11:00 92/34 02/13/17 10:30 68 24 85/64 98 Mechanical Ventilator 70 02/13/17 10:00 68 28 134/88 98 Mechanical Ventilator 70 02/13/17 10:00 134/88 02/13/17 09:30 71 27 114/20 99 Mechanical Ventilator 70 02/13/17 09:05 66 28 60 02/13/17 09:00 96/32 02/13/17 09:00 68 21 96/32 98 Mechanical Ventilator 70 02/13/17 08:30 65 22 99/26 99 Mechanical Ventilator 70 02/13/17 08:00 65 02/13/17 08:00 97.8 65 23 114/24 99 Mechanical Ventilator 70 02/13/17 08:00 70 4/14/17 08:00 114/24 02/13/17 07:30 69 17 98/30 100 Mechanical Ventilator 80 02/13/17 07:15 69 17 98/30 100 Mechanical Ventilator 80 02/13/17 07:10 95 27 70 02/13/17 07:00 68 22 98/29 100 Mechanical Ventilator 80 02/13/17 06:30 83 22 104/36 99 Mechanical Ventilator 80 02/13/17 06:00 64 27 106/23 99 Mechanical Ventilator 80 02/13/17 05:30 65 27 103/25 99 Mechanical Ventilator 80 02/13/17 05:09 70 34 80 02/13/17 05:00 65 24 109/20 99 Mechanical Ventilator 80 02/13/17 04:30 66 26 114/48 100 Mechanical Ventilator 80 02/13/17 04:00 98.5 66 26 98/29 100 Mechanical Ventilator 80 02/13/17 04:00 71 02/13/17 04:00 80 02/13/17 03:30 69 24 91/53 100 Mechanical Ventilator 80 02/13/17 03:16 98/29 02/13/17 03:09 74 29 80 02/13/17 03:00 74 26 95/29 100 Mechanical Ventilator 80 02/13/17 02:30 94 25 121/33 100 Mechanical Ventilator 80 02/13/17 02:00 71 27 101/24 100 Mechanical Ventilator 80 02/13/17 01:30 70 27 106/30 100 Mechanical Ventilator 80 02/13/17 01:25 73 29 80 02/13/17 01:00 70 28 121/23 100 Mechanical Ventilator 80 02/13/17 00:30 80 24 101/28 100 Mechanical Ventilator 80 02/13/17 00:00 98.9 76 27 107/25 100 Mechanical Ventilator 80 02/13/17 00:00 75 02/13/17 00:00 80 02/12/17 23:30 71 28 94/24 100 Mechanical Ventilator 80 02/12/17 23:08 73 31 80 02/12/17 23:00 72 26 108/31 100 Mechanical Ventilator 80 02/12/17 22:30 69 26 100/29 100 Mechanical Ventilator 80 02/12/17 22:00 72 27 104/51 99 Mechanical Ventilator 80 02/12/17 21:30 69 26 113/18 99 Mechanical Ventilator 80 02/12/17 21:06 74 30 80 02/12/17 21:00 68 25 125/34 99 Mechanical Ventilator 80 02/12/17 20:30 68 25 108/23 100 Mechanical Ventilator 80 02/12/17 20:00 67 02/12/17 20:00 80 02/12/17 20:00 98.4 64 25 103/34 100 Mechanical Ventilator 80 02/12/17 19:45 67 25 70/55 100 Mechanical Ventilator 80 02/12/17 19:30 67 25 98/32 99 Mechanical Ventilator 80 02/12/17 19:15 68 27 91/28 100 Mechanical Ventilator 80 02/12/17 19:08 71 27 80 02/12/17 19:00 74 20 59/37 99 Mechanical Ventilator 80 02/12/17 18:30 69 20 122/74 99 Mechanical Ventilator 90 02/12/17 18:00 67 25 122/70 100 Mechanical Ventilator 90 02/12/17 17:30 65 25 99/21 100 Mechanical Ventilator 90 02/12/17 17:00 66 26 110/29 100 Mechanical Ventilator 90 02/12/17 16:57 68 25 90 02/12/17 16:30 67 25 101/20 100 Mechanical Ventilator 90 02/12/17 16:00 90 02/12/17 16:00 71 02/12/17 16:00 98.2 68 26 91/29 100 Mechanical Ventilator 90 02/12/17 15:30 65 25 101/60 100 Mechanical Ventilator 90 02/12/17 15:00 71 28 97/81 100 Mechanical Ventilator 90 02/12/17 14:40 68 27 90 02/12/17 14:30 66 23 97/21 100 Mechanical Ventilator 90 02/12/17 14:14 104/32 02/12/17 14:00 63 23 109/11 100 Mechanical Ventilator 90 02/12/17 13:30 67 26 129/107 100 Mechanical Ventilator 90 Intake and Output 02/12/17 02/13/17 19:00 07:00 Intake Total 497.13 ml 569.16 ml Output Total 0 ml 0 ml Balance 497.13 ml 569.16 ml IV Total 497.13 ml 569.16 ml Output Urine Total 0 ml 0 ml # Bowel Movements 2 2 Laboratory Tests 02/12/17 23:30: Haptoglobin < 29L, Prothrombin Time 12.2H, Prothromb Time International Ratio 1.2H 02/13/17 04:05: White Blood Count 23.8*H, Red Blood Count 2.67L, Hemoglobin 8.0L, Hematocrit 24.2L, Mean Corpuscular Volume 91, Mean Corpuscular Hemoglobin 30.1, Mean Corpuscular Hemoglobin Concent 33.2, Red Cell Distribution Width 15.9H, Platelet Count 25L, Mean Platelet Volume 10.7H, Neutrophils (%) (Auto) , Lymphocytes (%) (Auto) , Monocytes (%) (Auto) , Eosinophils (%) (Auto) , Basophils (%) (Auto) , Differential Total Cells Counted 100, Neutrophils % ( Manual) 94H, Lymphocytes % (Manual) 2L, Monocytes % (Manual) 4, Eosinophils % ( Manual) 0, Basophils % (Manual) 0, Band Neutrophils 0, Nucleated Red Blood Cells 3, Platelet Estimate DecreasedL, Platelet Morphology Normal, Polychromasia 1+, Hypochromasia 1+, Anisocytosis 1+, Sodium Level 136, Potassium Level 4.2, Chloride Level 97L, Carbon Dioxide Level 24, Anion Gap 15, Blood Urea Nitrogen 78H, Creatinine 4.3H, Estimat Glomerular Filtration Rate , Glucose Level 218#H, Uric Acid 7.1, Calcium Level 8.1L, Phosphorus Level 4.0, Magnesium Level 1.8, Total Bilirubin 0.9, Gamma Glutamyl Transpeptidase 45H, Aspartate Amino Transf (AST/SGOT) 19, Alanine Aminotransferase (ALT/SGPT) 15, Alkaline Phosphatase 264H, C-Reactive Protein, Quantitative 18.5H, Pro-B-Type Natriuretic Peptide 21180F, Total Protein 4.5L, Albumin 1.8L, Globulin 2.7, Albumin/Globulin Ratio 0.6L Height (Feet): 5 Height (Inches): 1.00 Weight (Pounds): 200 General Appearance: no apparent distress Cardiovascular: regular rhythm Respiratory/Chest: decreased breath sounds Objective other PE not changed BERTRAM CASTAÑEDA Feb 13, 2017 13:17
[2017-02-13] MEDS: Meropenem 500 MG in NS 55 ML IVPB SCH (14:15)
--- NOTE | 2017-02-13 15:31 | Cardiology Progress Note ---
Assessment/Plan Problem List: (1) Acute on chronic renal failure (2) Pneumonia (3) Sepsis (4) Hyperkalemia (5) Dementia (6) Diabetes mellitus Status: stable, unchanged Status Narrative Pt w respiratory failure , pneumonia/sepsis. She is currently being weaned from pressors, and remains vent-dependent Renal failure - on HD She is in AF, w/ controlled v rates currently, but was in AF this am. Assessment/Plan Continue antibiotics per ID. Continue to wean pressors as tolerated. If ventricular rates increase in AF, would give digoxin ( one or 2 doses, ) as BP too low for b blockers or Ca channel blockers. Not a candidate for a-c due to low plts/ bleeding risk Dialysis per Dr Fernandez Overall prognosis poor. Subjective ROS Limited/Unobtainable: Yes Subjective Cardiology for Dr. Rush Intubated/ opens eyes to voice Objective Last 24 Hour Vital Signs Date Time Temp Pulse Resp B/P Pulse Ox O2 Delivery O2 Flow Rate FiO2 02/13/17 15:11 83 32 60 02/13/17 14:30 89 25 103/31 96 Mechanical Ventilator 70 02/13/17 14:00 105 29 92/26 97 Mechanical Ventilator 70 02/13/17 14:00 92/26 02/13/17 13:30 71 21 127/23 97 Mechanical Ventilator 70 02/13/17 13:05 74 30 60 02/13/17 13:00 71 21 89/60 97 Mechanical Ventilator 70 02/13/17 13:00 89/60 02/13/17 12:30 72 18 111/29 96 Mechanical Ventilator 70 02/13/17 12:00 72 02/13/17 12:00 93/54 02/13/17 12:00 70 02/13/17 12:00 97.6 72 21 93/54 99 Mechanical Ventilator 70 02/13/17 11:30 71 19 112/36 99 Mechanical Ventilator 70 02/13/17 11:10 69 29 60 02/13/17 11:00 73 18 92/34 98 Mechanical Ventilator 70 02/13/17 11:00 92/34 02/13/17 10:30 68 24 85/64 98 Mechanical Ventilator 70 02/13/17 10:00 68 28 134/88 98 Mechanical Ventilator 70 02/13/17 10:00 134/88 02/13/17 09:30 71 27 114/20 99 Mechanical Ventilator 70 02/13/17 09:05 66 28 60 02/13/17 09:00 96/32 02/13/17 09:00 68 21 96/32 98 Mechanical Ventilator 70 02/13/17 08:30 65 22 99/26 99 Mechanical Ventilator 70 02/13/17 08:00 65 02/13/17 08:00 97.8 65 23 114/24 99 Mechanical Ventilator 70 02/13/17 08:00 70 02/13/17 08:00 114/24 02/13/17 07:30 69 17 98/30 100 Mechanical Ventilator 80 02/13/17 07:15 69 17 98/30 100 Mechanical Ventilator 80 02/13/17 07:10 95 27 70 02/13/17 07:00 68 22 98/29 100 Mechanical Ventilator 80 02/13/17 06:30 83 22 104/36 99 Mechanical Ventilator 80 02/13/17 06:00 64 27 106/23 99 Mechanical Ventilator 80 02/13/17 05:30 65 27 103/25 99 Mechanical Ventilator 80 02/13/17 05:09 70 34 80 02/13/17 05:00 65 24 109/20 99 Mechanical Ventilator 80 02/13/17 04:30 66 26 114/48 100 Mechanical Ventilator 80 02/13/17 04:00 98.5 66 26 98/29 100 Mechanical Ventilator 80 02/13/17 04:00 71 02/13/17 04:00 80 02/13/17 03:30 69 24 91/53 100 Mechanical Ventilator 80 02/13/17 03:16 98/29 02/13/17 03:09 74 29 80 02/13/17 03:00 74 26 95/29 100 Mechanical Ventilator 80 02/13/17 02:30 94 25 121/33 100 Mechanical Ventilator 80 02/13/17 02:00 71 27 101/24 100 Mechanical Ventilator 80 02/13/17 01:30 70 27 106/30 100 Mechanical Ventilator 80 02/13/17 01:25 73 29 80 02/13/17 01:00 70 28 121/23 100 Mechanical Ventilator 80 02/13/17 00:30 80 24 101/28 100 Mechanical Ventilator 80 02/13/17 00:00 98.9 76 27 107/25 100 Mechanical Ventilator 80 02/13/17 00:00 75 02/13/17 00:00 80 02/12/17 23:30 71 28 94/24 100 Mechanical Ventilator 80 02/12/17 23:08 73 31 80 02/12/17 23:00 72 26 108/31 100 Mechanical Ventilator 80 02/12/17 22:30 69 26 100/29 100 Mechanical Ventilator 80 02/12/17 22:00 72 27 104/51 99 Mechanical Ventilator 80 02/12/17 21:30 69 26 113/18 99 Mechanical Ventilator 80 02/12/17 21:06 74 30 80 02/12/17 21:00 68 25 125/34 99 Mechanical Ventilator 80 02/12/17 20:30 68 25 108/23 100 Mechanical Ventilator 80 02/12/17 20:00 67 02/12/17 20:00 80 02/12/17 20:00 98.4 64 25 103/34 100 Mechanical Ventilator 80 02/12/17 19:45 67 25 70/55 100 Mechanical Ventilator 80 02/12/17 19:30 67 25 98/32 99 Mechanical Ventilator 80 02/12/17 19:15 68 27 91/28 100 Mechanical Ventilator 80 02/12/17 19:08 71 27 80 02/12/17 19:00 74 20 59/37 99 Mechanical Ventilator 80 02/12/17 18:30 69 20 122/74 99 Mechanical Ventilator 90 02/12/17 18:00 67 25 122/70 100 Mechanical Ventilator 90 02/12/17 17:30 65 25 99/21 100 Mechanical Ventilator 90 02/12/17 17:00 66 26 110/29 100 Mechanical Ventilator 90 02/12/17 16:57 68 25 90 02/12/17 16:30 67 25 101/20 100 Mechanical Ventilator 90 02/12/17 16:00 90 02/12/17 16:00 71 02/12/17 16:00 98.2 68 26 91/29 100 Mechanical Ventilator 90 02/12/17 15:30 65 25 101/60 100 Mechanical Ventilator 90 General Appearance: WD/WN, on vent EENT: other - et tube in place Neck: no JVD Rhythm: Afib Cardiovascular: no gallop/murmur, irregularly irregular Respiratory/Chest: other - fairly clear anteriorly Abdomen: non tender, soft Extremities: no swelling Intake and Output 02/12/17 02/13/17 19:00 07:00 Intake Total 497.13 ml 569.16 ml Output Total 0 ml 0 ml Balance 497.13 ml 569.16 ml IV Total 497.13 ml 569.16 ml Output Urine Total 0 ml 0 ml # Bowel Movements 2 2 Laboratory Tests Test 02/12/17 23:30 02/13/17 04:05 Haptoglobin < 29 mg/dL (30-200) L Prothrombin Time 12.2 SEC (9.30-11.50) H Prothromb Time International Ratio 1.2 (0.9-1.1) H White Blood Count 23.8 K/UL (4.8-10.8) *H Red Blood Count 2.67 M/UL (4.20-5.40) L Hemoglobin 8.0 G/DL (12.0-16.0) L Hematocrit 24.2 % (37.0-47.0) L Mean Corpuscular Volume 91 FL (80-99) Mean Corpuscular Hemoglobin 30.1 PG (27.0-31.0) Mean Corpuscular Hemoglobin Concent 33.2 G/DL (32.0-36.0) Red Cell Distribution Width 15.9 % (11.6-14.8) H Platelet Count 25 K/UL (150-450) L Mean Platelet Volume 10.7 FL (6.5-10.1) H Neutrophils (%) (Auto) % (45.0-75.0) Lymphocytes (%) (Auto) % (20.0-45.0) Monocytes (%) (Auto) % (1.0-10.0) Eosinophils (%) (Auto) % (0.0-3.0) Basophils (%) (Auto) % (0.0-2.0) Differential Total Cells Counted 100 Neutrophils % (Manual) 94 % (45-75) H Lymphocytes % (Manual) 2 % (20-45) L Monocytes % (Manual) 4 % (1-10) Eosinophils % (Manual) 0 % (0-3) Basophils % (Manual) 0 % (0-2) Band Neutrophils 0 % (0-8) Nucleated Red Blood Cells 3 /100 WBC Platelet Estimate Decreased L Platelet Morphology Normal Polychromasia 1+ Hypochromasia 1+ Anisocytosis 1+ Sodium Level 136 mEQ/L (135-145) Potassium Level 4.2 mEQ/L (3.4-4.9) Chloride Level 97 mEQ/L (98-107) L Carbon Dioxide Level 24 mEQ/L (20-30) Anion Gap 15 (5-15) Blood Urea Nitrogen 78 mg/dL (7-23) H Creatinine 4.3 mg/dL (0.5-0.9) H Estimat Glomerular Filtration Rate mL/min (>60) Glucose Level 218 mg/dL (74-106) #H Uric Acid 7.1 mg/dL (3.0-7.5) Calcium Level 8.1 mg/dL (8.6-10.2) L Phosphorus Level 4.0 mg/dL (2.5-4.8) Magnesium Level 1.8 mg/dL (1.7-2.5) Total Bilirubin 0.9 mg/dL (0.0-1.2) Gamma Glutamyl Transpeptidase 45 U/L (5-36) H Aspartate Amino Transf (AST/SGOT) 19 U/L (5-40) Alanine Aminotransferase (ALT/SGPT) 15 U/L (3-33) Alkaline Phosphatase 264 U/L (35-104) H C-Reactive Protein, Quantitative 18.5 mg/dL (< 0.5) H Pro-B-Type Natriuretic Peptide 36593 pg/mL (0-450) H Total Protein 4.5 g/dL (6.6-8.7) L Albumin 1.8 g/dL (3.5-5.2) L Globulin 2.7 g/dL Albumin/Globulin Ratio 0.6 (1.0-2.7) L WANDA SKELTON Feb 13, 2017 15:31
[2017-02-13] MEDS ORDERED: Tubing Blood Filter IV ONE (16:42)
--- NOTE | 2017-02-13 18:09 | General Progress Note ---
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 bilateral right greater than left pleural effusions and mediastinal lymphadenopathy - she is a poor candidate for biopsy and has a poor prognosis # Anemia 2/2 chronic disease - s/p multiple units of blood # Leukocytosis - related to sepsis and underlying infection, is on antibiotics # Respiratory failure s/p intubation # Respiratory acidosis # Renal failure # ALOC # Sepsis Recs: - Considering terminal extubation, comfort care as per primary - Transfuse to hgb goal >7, plt goal >20k if bleeding --> conservative management - Have order for haptoglobin and INR today - She is off heparin, plavix, aspirin - Agree to administer FFP if INR >2 - Does not require a biopsy as has poor prognosis and poor outcome at this time - NG feeds at maximal rate - Appreciate consultation! continue to follow Subjective Constitutional: Reports: no symptoms HEENT: Reports: no symptoms Cardiovascular: Reports: no symptoms Respiratory: Reports: no symptoms Gastrointestinal/Abdominal: Reports: no symptoms Genitourinary: Reports: no symptoms 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: Reports: no symptoms Endocrine: Reports: no symptoms Hematologic/Lymphatic: Reports: anemia Allergies: Coded Allergies: MORPHINE (Verified Adverse Reaction, Severe, PARADOXICAL REACTION, 10/08/12 ) Subjective remains anemic, considering terminal extubation, remains critically ill, dnr Objective Last 24 Hour Vital Signs Date Time Temp Pulse Resp B/P Pulse Ox O2 Delivery O2 Flow Rate FiO2 02/13/17 17:30 100 26 101/62 95 Mechanical Ventilator 70 02/13/17 17:13 81 30 60 02/13/17 17:00 107 28 105/70 93 Mechanical Ventilator 70 02/13/17 17:00 105/70 02/13/17 16:30 83 34 94/22 93 Mechanical Ventilator 70 02/13/17 16:00 98.1 102 35 111/35 94 Mechanical Ventilator 70 02/13/17 16:00 83 02/13/17 16:00 111/35 02/13/17 16:00 70 02/13/17 15:30 115 33 96/24 94 Mechanical Ventilator 70 02/13/17 15:11 83 32 60 02/13/17 15:00 101 35 118/54 95 Mechanical Ventilator 70 02/13/17 15:00 118/54 02/13/17 14:30 89 25 103/31 96 Mechanical Ventilator 70 02/13/17 14:00 105 29 92/26 97 Mechanical Ventilator 70 02/13/17 14:00 92/26 02/13/17 13:30 71 21 127/23 97 Mechanical Ventilator 70 02/13/17 13:05 74 30 60 02/13/17 13:00 71 21 89/60 97 Mechanical Ventilator 70 02/13/17 13:00 89/60 02/13/17 12:30 72 18 111/29 96 Mechanical Ventilator 70 02/13/17 12:00 72 02/13/17 12:00 93/54 02/13/17 12:00 70 02/13/17 12:00 97.6 72 21 93/54 99 Mechanical Ventilator 70 02/13/17 11:30 71 19 112/36 99 Mechanical Ventilator 70 02/13/17 11:10 69 29 60 02/13/17 11:00 73 18 92/34 98 Mechanical Ventilator 70 02/13/17 11:00 92/34 02/13/17 10:30 68 24 85/64 98 Mechanical Ventilator 70 02/13/17 10:00 68 28 134/88 98 Mechanical Ventilator 70 02/13/17 10:00 134/88 02/13/17 09:30 71 27 114/20 99 Mechanical Ventilator 70 02/13/17 09:05 66 28 60 02/13/17 09:00 96/32 02/13/17 09:00 68 21 96/32 98 Mechanical Ventilator 70 02/13/17 08:30 65 22 99/26 99 Mechanical Ventilator 70 02/13/17 08:00 65 02/13/17 08:00 97.8 65 23 114/24 99 Mechanical Ventilator 70 02/13/17 08:00 70 02/13/17 08:00 114/24 02/13/17 07:30 69 17 98/30 100 Mechanical Ventilator 80 02/13/17 07:15 69 17 98/30 100 Mechanical Ventilator 80 02/13/17 07:10 95 27 70 02/13/17 07:00 68 22 98/29 100 Mechanical Ventilator 80 02/13/17 06:30 83 22 104/36 99 Mechanical Ventilator 80 02/13/17 06:00 64 27 106/23 99 Mechanical Ventilator 80 02/13/17 05:30 65 27 103/25 99 Mechanical Ventilator 80 02/13/17 05:09 70 34 80 02/13/17 05:00 65 24 109/20 99 Mechanical Ventilator 80 02/13/17 04:30 66 26 114/48 100 Mechanical Ventilator 80 02/13/17 04:00 98.5 66 26 98/29 100 Mechanical Ventilator 80 02/13/17 04:00 71 02/13/17 04:00 80 02/13/17 03:30 69 24 91/53 100 Mechanical Ventilator 80 02/13/17 03:16 98/29 02/13/17 03:09 74 29 80 02/13/17 03:00 74 26 95/29 100 Mechanical Ventilator 80 02/13/17 02:30 94 25 121/33 100 Mechanical Ventilator 80 02/13/17 02:00 71 27 101/24 100 Mechanical Ventilator 80 02/13/17 01:30 70 27 106/30 100 Mechanical Ventilator 80 02/13/17 01:25 73 29 80 02/13/17 01:00 70 28 121/23 100 Mechanical Ventilator 80 02/13/17 00:30 80 24 101/28 100 Mechanical Ventilator 80 02/13/17 00:00 98.9 76 27 107/25 100 Mechanical Ventilator 80 02/13/17 00:00 75 02/13/17 00:00 80 02/12/17 23:30 71 28 94/24 100 Mechanical Ventilator 80 02/12/17 23:08 73 31 80 02/12/17 23:00 72 26 108/31 100 Mechanical Ventilator 80 02/12/17 22:30 69 26 100/29 100 Mechanical Ventilator 80 02/12/17 22:00 72 27 104/51 99 Mechanical Ventilator 80 02/12/17 21:30 69 26 113/18 99 Mechanical Ventilator 80 02/12/17 21:06 74 30 80 02/12/17 21:00 68 25 125/34 99 Mechanical Ventilator 80 02/12/17 20:30 68 25 108/23 100 Mechanical Ventilator 80 02/12/17 20:00 67 02/12/17 20:00 80 02/12/17 20:00 98.4 64 25 103/34 100 Mechanical Ventilator 80 02/12/17 19:45 67 25 70/55 100 Mechanical Ventilator 80 02/12/17 19:30 67 25 98/32 99 Mechanical Ventilator 80 02/12/17 19:15 68 27 91/28 100 Mechanical Ventilator 80 02/12/17 19:08 71 27 80 02/12/17 19:00 74 20 59/37 99 Mechanical Ventilator 80 02/12/17 18:30 69 20 122/74 99 Mechanical Ventilator 90 Intake and Output 02/12/17 02/13/17 19:00 07:00 Intake Total 497.13 ml 569.16 ml Output Total 0 ml 0 ml Balance 497.13 ml 569.16 ml IV Total 497.13 ml 569.16 ml Output Urine Total 0 ml 0 ml # Bowel Movements 2 2 Laboratory Tests 02/12/17 23:30: Haptoglobin < 29L, Prothrombin Time 12.2H, Prothromb Time International Ratio 1.2H 02/13/17 04:05: White Blood Count 23.8*H, Red Blood Count 2.67L, Hemoglobin 8.0L, Hematocrit 24.2L, Mean Corpuscular Volume 91, Mean Corpuscular Hemoglobin 30.1, Mean Corpuscular Hemoglobin Concent 33.2, Red Cell Distribution Width 15.9H, Platelet Count 25L, Mean Platelet Volume 10.7H, Neutrophils (%) (Auto) , Lymphocytes (%) (Auto) , Monocytes (%) (Auto) , Eosinophils (%) (Auto) , Basophils (%) (Auto) , Differential Total Cells Counted 100, Neutrophils % ( Manual) 94H, Lymphocytes % (Manual) 2L, Monocytes % (Manual) 4, Eosinophils % ( Manual) 0, Basophils % (Manual) 0, Band Neutrophils 0, Nucleated Red Blood Cells 3, Platelet Estimate DecreasedL, Platelet Morphology Normal, Polychromasia 1+, Hypochromasia 1+, Anisocytosis 1+, Sodium Level 136, Potassium Level 4.2, Chloride Level 97L, Carbon Dioxide Level 24, Anion Gap 15, Blood Urea Nitrogen 78H, Creatinine 4.3H, Estimat Glomerular Filtration Rate , Glucose Level 218#H, Uric Acid 7.1, Calcium Level 8.1L, Phosphorus Level 4.0, Magnesium Level 1.8, Total Bilirubin 0.9, Gamma Glutamyl Transpeptidase 45H, Aspartate Amino Transf (AST/SGOT) 19, Alanine Aminotransferase (ALT/SGPT) 15, Alkaline Phosphatase 264H, C-Reactive Protein, Quantitative 18.5H, Pro-B-Type Natriuretic Peptide 78052S, Total Protein 4.5L, Albumin 1.8L, Globulin 2.7, Albumin/Globulin Ratio 0.6L Height (Feet): 5 Height (Inches): 1.00 Weight (Pounds): 200 General Appearance: lethargic EENT: TMs normal Neck: supple Cardiovascular: regular rhythm Respiratory/Chest: decreased breath sounds, other - vent + Abdomen: normal bowel sounds Extremities: non-tender Edema: 1+ Leg (L), 1+ Leg (R) Neurologic: no motor/sensory deficits Skin: warm/dry Mariano Ortiz Feb 13, 2017 18:09
--- NOTE | 2017-02-13 19:52 | Infectious Diseases Prog Note ---
Assessment/Plan Assessment/Plan ASSESSMENT: 76 y/o female with: // Probable UTI - UCx(-) // Hypoxia, possible HCAP Scx: ESBL Kleb - CXR 02/02 : Extensive bilateral interstitial and airspace opacities, unchanged // h/o CoNS bacteremia 11/05 ( 01/09 ) ?real ( PICC tip+ ) vs contaminant r/o recurrence/persistence - surveillance BCx(-) // h/o right ankle cellulitis / osteomyelitis / hardware infection SP incomplete Rx ( recommended to complete 6 weeks IV daptomycin, cefepime ( end ), but daughter apparently declined at last discharge per documentation ) - SP hardware removal 12/15 - no culture sent - 3P bone scan: 3 phase increased activity in region of distal aspect of right fibula compatible with hardware loosening and/or osteomyelitis - XR: surgical hardware seen reducing old healed distal fibular and medial malleolar fractures. No acute fractures. No dislocations. Bones are demineralized. - elevated ESR, CRP - h/o right ankle ORIF // Probable sepsis,SP // Leukocytosis , stable // VDRF intubated 02/07 // ARF on CKD --> IHD per renal SP placement of tunneled right jugular hemodialysis catheter. 01/29 // Dementia // DM2 - HbA1c 6.1% // h/o CAD - trop(-) x1 // NH resident // VRE colonized // No ABX allergies // Full Code PLAN: - on Merrem d# 7 ( 02/07 SP DC Teflaro d# 10 ) ( 01/28 SP IV cefepime d# 10 IV Vanco d# 2 ) - monitor CBC, temperatures - monitor BMP - monitor CXR - respiratory support prn - DNR poor prognosis , possible comfort care Subjective Constitutional: Denies: anorexia, chills, drenching sweats, fatigue, fever, no symptoms, other Allergies: Coded Allergies: MORPHINE (Verified Adverse Reaction, Severe, PARADOXICAL REACTION, 10/08/12 ) Objective Vital Signs Last 24 Hour Vital Signs Date Time Temp Pulse Resp B/P Pulse Ox O2 Delivery O2 Flow Rate FiO2 02/13/17 19:00 102/46 02/13/17 19:00 89 30 102/46 97 Mechanical Ventilator 60 02/13/17 18:58 79 31 60 02/13/17 18:30 106 29 106/40 97 Mechanical Ventilator 60 02/13/17 18:00 99 30 116/57 97 Mechanical Ventilator 60 02/13/17 18:00 116/57 02/13/17 17:30 100 26 101/62 95 Mechanical Ventilator 70 02/13/17 17:13 81 30 60 02/13/17 17:00 107 28 105/70 93 Mechanical Ventilator 70 02/13/17 17:00 105/70 02/13/17 16:30 83 34 94/22 93 Mechanical Ventilator 70 02/13/17 16:00 98.1 102 35 111/35 94 Mechanical Ventilator 70 02/13/17 16:00 83 02/13/17 16:00 111/35 02/13/17 16:00 70 02/13/17 15:30 115 33 96/24 94 Mechanical Ventilator 70 02/13/17 15:11 83 32 60 02/13/17 15:00 101 35 118/54 95 Mechanical Ventilator 70 02/13/17 15:00 118/54 02/13/17 14:30 89 25 103/31 96 Mechanical Ventilator 70 02/13/17 14:00 105 29 92/26 97 Mechanical Ventilator 70 02/13/17 14:00 92/26 02/13/17 13:30 71 21 127/23 97 Mechanical Ventilator 70 02/13/17 13:05 74 30 60 02/13/17 13:00 71 21 89/60 97 Mechanical Ventilator 70 02/13/17 13:00 89/60 02/13/17 12:30 72 18 111/29 96 Mechanical Ventilator 70 02/13/17 12:00 72 02/13/17 12:00 93/54 02/13/17 12:00 70 02/13/17 12:00 97.6 72 21 93/54 99 Mechanical Ventilator 70 02/13/17 11:30 71 19 112/36 99 Mechanical Ventilator 70 02/13/17 11:10 69 29 60 02/13/17 11:00 73 18 92/34 98 Mechanical Ventilator 70 02/13/17 11:00 92/34 02/13/17 10:30 68 24 85/64 98 Mechanical Ventilator 70 02/13/17 10:00 68 28 134/88 98 Mechanical Ventilator 70 02/13/17 10:00 134/88 02/13/17 09:30 71 27 114/20 99 Mechanical Ventilator 70 02/13/17 09:05 66 28 60 02/13/17 09:00 96/32 02/13/17 09:00 68 21 96/32 98 Mechanical Ventilator 70 02/13/17 08:30 65 22 99/26 99 Mechanical Ventilator 70 02/13/17 08:00 65 02/13/17 08:00 97.8 65 23 114/24 99 Mechanical Ventilator 70 02/13/17 08:00 70 02/13/17 08:00 114/24 02/13/17 07:30 69 17 98/30 100 Mechanical Ventilator 80 02/13/17 07:15 69 17 98/30 100 Mechanical Ventilator 80 02/13/17 07:10 95 27 70 02/13/17 07:00 68 22 98/29 100 Mechanical Ventilator 80 02/13/17 06:30 83 22 104/36 99 Mechanical Ventilator 80 02/13/17 06:00 64 27 106/23 99 Mechanical Ventilator 80 02/13/17 05:30 65 27 103/25 99 Mechanical Ventilator 80 02/13/17 05:09 70 34 80 02/13/17 05:00 65 24 109/20 99 Mechanical Ventilator 80 02/13/17 04:30 66 26 114/48 100 Mechanical Ventilator 80 02/13/17 04:00 98.5 66 26 98/29 100 Mechanical Ventilator 80 02/13/17 04:00 71 02/13/17 04:00 80 02/13/17 03:30 69 24 91/53 100 Mechanical Ventilator 80 02/13/17 03:16 98/29 02/13/17 03:09 74 29 80 02/13/17 03:00 74 26 95/29 100 Mechanical Ventilator 80 02/13/17 02:30 94 25 121/33 100 Mechanical Ventilator 80 02/13/17 02:00 71 27 101/24 100 Mechanical Ventilator 80 02/13/17 01:30 70 27 106/30 100 Mechanical Ventilator 80 02/13/17 01:25 73 29 80 02/13/17 01:00 70 28 121/23 100 Mechanical Ventilator 80 02/13/17 00:30 80 24 101/28 100 Mechanical Ventilator 80 02/13/17 00:00 98.9 76 27 107/25 100 Mechanical Ventilator 80 02/13/17 00:00 75 02/13/17 00:00 80 02/12/17 23:30 71 28 94/24 100 Mechanical Ventilator 80 02/12/17 23:08 73 31 80 02/12/17 23:00 72 26 108/31 100 Mechanical Ventilator 80 02/12/17 22:30 69 26 100/29 100 Mechanical Ventilator 80 02/12/17 22:00 72 27 104/51 99 Mechanical Ventilator 80 02/12/17 21:30 69 26 113/18 99 Mechanical Ventilator 80 02/12/17 21:06 74 30 80 02/12/17 21:00 68 25 125/34 99 Mechanical Ventilator 80 02/12/17 20:30 68 25 108/23 100 Mechanical Ventilator 80 02/12/17 20:00 67 02/12/17 20:00 80 02/12/17 20:00 98.4 64 25 103/34 100 Mechanical Ventilator 80 Height (Feet): 5 Height (Inches): 1.00 Weight (Pounds): 200 HEENT: mucous membranes moist Respiratory/Chest: no respiratory distress Cardiovascular: regular rhythm Abdomen: no organomegaly Laboratory Tests Test 02/12/17 23:30 02/13/17 04:05 Haptoglobin < 29 mg/dL (30-200) L Prothrombin Time 12.2 SEC (9.30-11.50) H Prothromb Time International Ratio 1.2 (0.9-1.1) H White Blood Count 23.8 K/UL (4.8-10.8) *H Red Blood Count 2.67 M/UL (4.20-5.40) L Hemoglobin 8.0 G/DL (12.0-16.0) L Hematocrit 24.2 % (37.0-47.0) L Mean Corpuscular Volume 91 FL (80-99) Mean Corpuscular Hemoglobin 30.1 PG (27.0-31.0) Mean Corpuscular Hemoglobin Concent 33.2 G/DL (32.0-36.0) Red Cell Distribution Width 15.9 % (11.6-14.8) H Platelet Count 25 K/UL (150-450) L Mean Platelet Volume 10.7 FL (6.5-10.1) H Neutrophils (%) (Auto) % (45.0-75.0) Lymphocytes (%) (Auto) % (20.0-45.0) Monocytes (%) (Auto) % (1.0-10.0) Eosinophils (%) (Auto) % (0.0-3.0) Basophils (%) (Auto) % (0.0-2.0) Differential Total Cells Counted 100 Neutrophils % (Manual) 94 % (45-75) H Lymphocytes % (Manual) 2 % (20-45) L Monocytes % (Manual) 4 % (1-10) Eosinophils % (Manual) 0 % (0-3) Basophils % (Manual) 0 % (0-2) Band Neutrophils 0 % (0-8) Nucleated Red Blood Cells 3 /100 WBC Platelet Estimate Decreased L Platelet Morphology Normal Polychromasia 1+ Hypochromasia 1+ Anisocytosis 1+ Sodium Level 136 mEQ/L (135-145) Potassium Level 4.2 mEQ/L (3.4-4.9) Chloride Level 97 mEQ/L (98-107) L Carbon Dioxide Level 24 mEQ/L (20-30) Anion Gap 15 (5-15) Blood Urea Nitrogen 78 mg/dL (7-23) H Creatinine 4.3 mg/dL (0.5-0.9) H Estimat Glomerular Filtration Rate mL/min (>60) Glucose Level 218 mg/dL (74-106) #H Uric Acid 7.1 mg/dL (3.0-7.5) Calcium Level 8.1 mg/dL (8.6-10.2) L Phosphorus Level 4.0 mg/dL (2.5-4.8) Magnesium Level 1.8 mg/dL (1.7-2.5) Total Bilirubin 0.9 mg/dL (0.0-1.2) Gamma Glutamyl Transpeptidase 45 U/L (5-36) H Aspartate Amino Transf (AST/SGOT) 19 U/L (5-40) Alanine Aminotransferase (ALT/SGPT) 15 U/L (3-33) Alkaline Phosphatase 264 U/L (35-104) H C-Reactive Protein, Quantitative 18.5 mg/dL (< 0.5) H Pro-B-Type Natriuretic Peptide 06077 pg/mL (0-450) H Total Protein 4.5 g/dL (6.6-8.7) L Albumin 1.8 g/dL (3.5-5.2) L Globulin 2.7 g/dL Albumin/Globulin Ratio 0.6 (1.0-2.7) L Current Medications Medications (Trade) Dose Ordered Sig/Rina Route PRN Reason Start Time Stop Time Status Last Admin Dose Admin Acetaminophen (Tylenol) 650 mg Q6H PRN ORAL Mild Pain/Temp > 100.5 02/07/17 17:00 03/09/17 16:59 Dextrose (Dextrose 50%) STAT PRN IV Hypoglycemia 02/07/17 17:00 03/09/17 16:59 Hydrocortisone (Solu-CORTEF) 100 mg EVERY 8 HOURS IV 02/12/17 16:00 03/14/17 15:59 02/13/17 14:15 Insulin Aspart (NovoLOG) Q6HR SUBQ 02/07/17 18:00 03/09/17 17:59 02/13/17 18:39 Lorazepam 1 mg 1 mg Q1H PRN IV For Anxiety 02/07/17 22:30 02/14/17 22:29 Menthol/Methyl Salicylate (Bengay) 1 applic FOUR TIMES A DAY TOPIC 02/07/17 18:00 03/09/17 17:59 02/13/17 18:33 Meropenem/Sodium Chloride (Merrem/Sodium Chloride) 55 ml @ 110 mls/hr DAILY@1400 IVPB 02/08/17 14:00 02/17/17 13:59 02/13/17 14:15 Nitroglycerin (Ntg) 0.4 mg Q5M X 3 DOSES PRN SL Prn Chest Pain 02/07/17 16:00 03/09/17 15:59 Norepinephrine Bitartrate/ Dextrose (Levophed/D5W 500ml) 558 ml @ 0 mls/hr Q24H IV 02/12/17 00:00 03/14/17 00:00 02/13/17 03:16 Ondansetron HCl (Zofran) 4 mg Q6H PRN IVP Nausea & Vomiting 02/07/17 17:00 03/09/17 16:59 02/11/17 10:59 Pantoprazole (Protonix) 40 mg EVERY 12 HOURS IVP 02/07/17 21:00 03/09/17 20:59 02/13/17 09:20 Polyethylene Glycol (Miralax) 17 gm DAILYPRN PRN GT Constipation 02/07/17 17:00 03/09/17 16:59 Sodium Chloride 1,000 ml @ 500 mls/hr Q2H PRN IVLG sbp<90 during hd 02/11/17 22:23 03/13/17 22:22 GISELLA JEROME M.D. Feb 13, 2017 19:52
[2017-02-14] VITALS (27 sets, daily range): BP systolic 87–129; BP diastolic 28–74
[2017-02-14 05:25] LABS: MEAN CORPUSCULAR HEMOGLOBIN 29.8 PG (27.0-31.0); MEAN CORPUSCULAR HGB CONC 32.6 G/DL (32.0-36.0); MEAN CORPUSCULAR VOLUME 91 FL (80-99); MEAN PLATELET VOLUME 10.6 FL (6.5-10.1); PLATELET COUNT 23 K/UL (150-450); RED BLOOD COUNT 2.29 M/UL (4.20-5.40); RED CELL DISTRIBUTION WIDTH 16.9 % (11.6-14.8); WHITE BLOOD COUNT 17.9 K/UL (4.8-10.8)
[2017-02-14 05:50] LABS: ALANINE AMINOTRANSFERASE 11 U/L (3-33); ALBUMIN/GLOBULIN RATIO 0.7 (1.0-2.7); ANION GAP 20 (5-15); ASPARTATE AMINO TRANSFERASE 23 U/L (5-40); CALCIUM 8.4 mg/dL (8.6-10.2); CARBON DIOXIDE 22 mEQ/L (20-30); CHLORIDE 95 mEQ/L (98-107); CREATININE 5.2 mg/dL (0.5-0.9); CRP QUANT 9.4 mg/dL (< 0.5); HEMOLYSIS 15; MAGNESIUM 2.1 mg/dL (1.7-2.5); PHOSPHORUS 5.4 mg/dL (2.5-4.8); POTASSIUM 4.4 mEQ/L (3.4-4.9); SODIUM 137 mEQ/L (135-145); TOTAL PROTEIN 4.3 g/dL (6.6-8.7); URIC ACID 9.8 mg/dL (3.0-7.5)
[2017-02-14] MEDS: Hydrocortisone 100mg Inj IV SCH ×3 (06:18→22:01)
[2017-02-14] MEDS: NovoLOG Insulin Flexpen SUBQ SCH ×4 (06:19→23:49)
[2017-02-14 08:20] LABS: MEAN CORPUSCULAR HEMOGLOBIN 29.8 PG (27.0-31.0); MEAN CORPUSCULAR HGB CONC 33.3 G/DL (32.0-36.0); MEAN CORPUSCULAR VOLUME 90 FL (80-99); MEAN PLATELET VOLUME 10.6 FL (6.5-10.1); PLATELET COUNT 26 K/UL (150-450); RED BLOOD COUNT 2.32 M/UL (4.20-5.40); RED CELL DISTRIBUTION WIDTH 16.4 % (11.6-14.8); WHITE BLOOD COUNT 17.9 K/UL (4.8-10.8)
[2017-02-14] MEDS: Pantoprazole Inj IVP SCH ×2 (08:40→20:36)
[2017-02-14] MEDS: Analgesic Balm 15gm TOPIC SCH ×4 (08:40→20:37)
[2017-02-14 08:59] LABS: ANISOCYTOSIS 1+; BAND NEUTROPHILS % (MANUAL) 0 % (0-8); BASOPHILS % (MANUAL) 0 % (0-2); EOSINOPHILS % (MANUAL) 0 % (0-3); HYPOCHROMASIA 1+; LYMPHOCYTES % (MANUAL) 9 % (20-45); NEUTROPHILS % (MANUAL) 88 % (45-75); PLATELET ESTIMATE DECREASED; TOTAL CELLS COUNTED 100
[2017-02-14 09:00] LABS: PLATELET MORPHOLOGY NORMAL
[2017-02-14 09:38] LABS: ANISOCYTOSIS 1+; BAND NEUTROPHILS % (MANUAL) 0 % (0-8); BASOPHILS % (MANUAL) 0 % (0-2); EOSINOPHILS % (MANUAL) 0 % (0-3); HYPOCHROMASIA 1+; LYMPHOCYTES % (MANUAL) 7 % (20-45); NEUTROPHILS % (MANUAL) 90 % (45-75); NUCLEATED RED BLOOD CELLS 2 /100 WBC; PLATELET ESTIMATE DECREASED; PLATELET MORPHOLOGY NORMAL; TOTAL CELLS COUNTED 100
[2017-02-14 09:40] LABS: POLYCHROMASIA OCCASIONAL
[2017-02-14 09:41] LABS: POLYCHROMASIA 1+
--- NOTE | 2017-02-14 10:52 | General Progress Note ---
Assessment/Plan Status: unchanged Status Narrative hemodynamically more stable- H&H lower- On TPN Assessment/Plan Has acute respiratory distress- intubated in ICU Septic shock ( Had long talk with daughter Gali 01/19 ) - Acute renal failure and hyperKalemia - Renal failure, likely diabetic nephropathy / HTN - Sepsis , Pneumonia, Respiratory failure and Hypoxia other - h/o Cellulitis in diabetic foot right LE - Decubitus ulcer - Dementia - Diabetes mellitus - Nonpressure ulcer to level of fascia right lateral ankle - S/P ORIF right ankle Plan: intubate - ICU On hydrocortisone Had permacath 01/30 Adjust BP meds- Clonidin PRN HD last 02/12 will repeat today Transfuse during HD today monitor WBCs Phos supplement as needed Monitor renal parameters and Vanco level- ARTUR Kidney done last admission- unremarkable Adjust BP meds- Avoid Nephrotoxics- discussed with CM Per orders Subjective ROS Limited/Unobtainable: Yes Allergies: Coded Allergies: MORPHINE (Verified Adverse Reaction, Severe, PARADOXICAL REACTION, 10/08/12 ) Objective Last 24 Hour Vital Signs Date Time Temp Pulse Resp B/P Pulse Ox O2 Delivery O2 Flow Rate FiO2 02/14/17 10:00 63 27 115/41 96 Mechanical Ventilator 60 02/14/17 09:05 64 30 60 02/14/17 09:00 66 29 108/44 94 Mechanical Ventilator 60 02/14/17 08:00 97.5 62 28 105/40 95 Mechanical Ventilator 60 02/14/17 08:00 60 02/14/17 08:00 63 02/14/17 07:05 66 30 60 02/14/17 07:00 64 28 128/45 96 Mechanical Ventilator 60 02/14/17 06:00 63 30 121/48 97 Mechanical Ventilator 60 02/14/17 06:00 60 02/14/17 05:00 65 28 111/48 97 Mechanical Ventilator 60 02/14/17 04:48 63 29 60 02/14/17 04:00 98.2 66 25 114/37 97 Mechanical Ventilator 60 02/14/17 04:00 66 02/14/17 03:00 68 26 117/74 97 Mechanical Ventilator 60 02/14/17 02:58 68 30 60 02/14/17 02:00 70 27 101/33 97 Mechanical Ventilator 60 02/14/17 01:30 71 27 116/38 95 Mechanical Ventilator 60 02/14/17 01:04 72 32 60 02/14/17 01:00 72 27 117/54 96 Mechanical Ventilator 60 02/14/17 00:30 75 24 123/36 95 Mechanical Ventilator 60 02/14/17 00:00 98.4 75 30 129/40 95 Mechanical Ventilator 60 02/14/17 00:00 60 02/14/17 00:00 75 02/13/17 23:30 77 28 149/44 95 Mechanical Ventilator 60 02/13/17 23:00 80 27 158/43 95 Mechanical Ventilator 60 02/13/17 22:38 84 34 60 02/13/17 22:30 78 28 135/37 95 Mechanical Ventilator 60 02/13/17 22:00 81 27 146/46 96 Mechanical Ventilator 60 02/13/17 21:30 81 27 150/45 95 Mechanical Ventilator 60 02/13/17 21:00 81 29 142/46 97 Mechanical Ventilator 60 02/13/17 20:44 79 30 60 02/13/17 20:30 81 26 101/58 98 Mechanical Ventilator 60 02/13/17 20:00 81 02/13/17 20:00 70 02/13/17 20:00 98.7 102 31 106/44 95 Mechanical Ventilator 60 02/13/17 19:30 81 27 122/41 94 Mechanical Ventilator 60 02/13/17 19:00 102/46 02/13/17 19:00 89 30 102/46 97 Mechanical Ventilator 60 02/13/17 18:58 79 31 60 02/13/17 18:30 106 29 106/40 97 Mechanical Ventilator 60 02/13/17 18:00 99 30 116/57 97 Mechanical Ventilator 60 02/13/17 18:00 116/57 02/13/17 17:30 100 26 101/62 95 Mechanical Ventilator 70 02/13/17 17:13 81 30 60 02/13/17 17:00 107 28 105/70 93 Mechanical Ventilator 70 02/13/17 17:00 105/70 02/13/17 16:30 83 34 94/22 93 Mechanical Ventilator 70 02/13/17 16:00 98.1 102 35 111/35 94 Mechanical Ventilator 70 02/13/17 16:00 83 02/13/17 16:00 111/35 02/13/17 16:00 70 02/13/17 15:30 115 33 96/24 94 Mechanical Ventilator 70 02/13/17 15:11 83 32 60 02/13/17 15:00 101 35 118/54 95 Mechanical Ventilator 70 02/13/17 15:00 118/54 02/13/17 14:30 89 25 103/31 96 Mechanical Ventilator 70 02/13/17 14:00 105 29 92/26 97 Mechanical Ventilator 70 02/13/17 14:00 92/26 02/13/17 13:30 71 21 127/23 97 Mechanical Ventilator 70 02/13/17 13:05 74 30 60 02/13/17 13:00 71 21 89/60 97 Mechanical Ventilator 70 02/13/17 13:00 89/60 02/13/17 12:30 72 18 111/29 96 Mechanical Ventilator 70 02/13/17 12:00 72 02/13/17 12:00 93/54 02/13/17 12:00 70 02/13/17 12:00 97.6 72 21 93/54 99 Mechanical Ventilator 70 02/13/17 11:30 71 19 112/36 99 Mechanical Ventilator 70 02/13/17 11:10 69 29 60 02/13/17 11:00 73 18 92/34 98 Mechanical Ventilator 70 02/13/17 11:00 92/34 Intake and Output 02/13/17 02/14/17 19:00 07:00 Intake Total 714.80 ml 100.44 ml Output Total 0 ml 0 ml Balance 714.80 ml 100.44 ml IV Total 389.80 ml 100.44 ml Blood Product 325 ml Output Urine Total 0 ml 0 ml # Bowel Movements 1 1 Laboratory Tests 02/14/17 04:30: White Blood Count 17.9H, Red Blood Count 2.29L, Hemoglobin 6.8*L, Hematocrit 20.9L, Mean Corpuscular Volume 91, Mean Corpuscular Hemoglobin 29.8, Mean Corpuscular Hemoglobin Concent 32.6, Red Cell Distribution Width 16.9H, Platelet Count 23L, Mean Platelet Volume 10.6H, Neutrophils (%) (Auto) , Lymphocytes (%) (Auto) , Monocytes (%) (Auto) , Eosinophils (%) (Auto) , Basophils (%) (Auto) , Differential Total Cells Counted 100, Neutrophils % ( Manual) 88H, Lymphocytes % (Manual) 9L, Monocytes % (Manual) 3, Eosinophils % ( Manual) 0, Basophils % (Manual) 0, Band Neutrophils 0, Platelet Estimate DecreasedL, Platelet Morphology Normal, Polychromasia Occasional, Hypochromasia 1+, Anisocytosis 1+, Sodium Level 137, Potassium Level 4.4, Chloride Level 95L, Carbon Dioxide Level 22, Anion Gap 20H, Blood Urea Nitrogen 102H, Creatinine 5.2H, Estimat Glomerular Filtration Rate , Glucose Level 129H, Uric Acid 9.8H, Calcium Level 8.4L, Phosphorus Level 5.4H, Magnesium Level 2.1, Total Bilirubin 0.7, Aspartate Amino Transf (AST/SGOT) 23, Alanine Aminotransferase (ALT/SGPT) 11, Alkaline Phosphatase 237H, C-Reactive Protein, Quantitative 9.4H, Pro-B- Type Natriuretic Peptide 28142J, Total Protein 4.3L, Albumin 1.8L, Globulin 2.5 , Albumin/Globulin Ratio 0.7L 02/14/17 06:10: White Blood Count 17.9H, Red Blood Count 2.32L, Hemoglobin 6.9*L, Hematocrit 20.8L, Mean Corpuscular Volume 90, Mean Corpuscular Hemoglobin 29.8, Mean Corpuscular Hemoglobin Concent 33.3, Red Cell Distribution Width 16.4H, Platelet Count 26L, Mean Platelet Volume 10.6H, Neutrophils (%) (Auto) , Lymphocytes (%) (Auto) , Monocytes (%) (Auto) , Eosinophils (%) (Auto) , Basophils (%) (Auto) , Differential Total Cells Counted 100, Neutrophils % ( Manual) 90H, Lymphocytes % (Manual) 7L, Monocytes % (Manual) 3, Eosinophils % ( Manual) 0, Basophils % (Manual) 0, Band Neutrophils 0, Platelet Estimate DecreasedL, Platelet Morphology Normal, Polychromasia 1+, Hypochromasia 1+, Anisocytosis 1+, Nucleated Red Blood Cells 2 Height (Feet): 5 Height (Inches): 1.00 Weight (Pounds): 200 General Appearance: mild distress Cardiovascular: normal rate Respiratory/Chest: decreased breath sounds Abdomen: distended Objective other PE not changed BERTRAM CASTAÑEDA Feb 14, 2017 10:51
--- NOTE | 2017-02-14 11:33 | Critical Care Progress Note ---
Assessment/Plan Assessment/Plan hypoxemia respiratory failure respiratory acidosis pulmonary infiltrates thrombocytopenia renal failure ALOC chronic encephalopathy septic shock leukocytosis pulmonary infiltrates ARDS DIC likely s/p transfusion atrial fibrillation hypotension PLAN son updated; DNR with possible terminal extubation- now on hold with improvement off heparin, plavix, aspirin no chance of recovery transfuse PRBC platelets dropping follow up labs afib controlled levophed and pressors now off hydrocortisone added monitor renal function; on HD per renal antibiotics noted taper fio2; as able hyperventilate and follow up ABG prognosis remains poor; wbc slightly better possible terminal extubation pending any meaningful recovery medications/laboratory data/nursing notes/ICU care reviewed in detail note reviewed and edited care discussed with RN and RT ICU time spent 35 minutes Critical Care - Subjective Interval Events: reviewed care with son update given on the ventilator ROS Limited/Unobtainable: Yes Condition: critical EKG Rhythm: Atrial Fibrillation Residuals: high I&O: Intake and Output 02/13/17 02/14/17 18:59 06:59 Intake Total 731.54 ml 125.55 ml Output Total 0 ml 0 ml Balance 731.54 ml 125.55 ml IV Total 406.54 ml 125.55 ml Blood Product 325 ml Output Urine Total 0 ml 0 ml # Bowel Movements 1 1 Critical Care - Objective ET-Tube: 7.0 ET Position: 22 Last 24 Hour Vital Signs Date Time Temp Pulse Resp B/P Pulse Ox O2 Delivery O2 Flow Rate FiO2 02/14/17 11:22 65 33 60 02/14/17 10:00 63 27 115/41 96 Mechanical Ventilator 60 02/14/17 09:05 64 30 60 02/14/17 09:00 66 29 108/44 94 Mechanical Ventilator 60 02/14/17 08:00 97.5 62 28 105/40 95 Mechanical Ventilator 60 02/14/17 08:00 60 02/14/17 08:00 63 02/14/17 07:05 66 30 60 02/14/17 07:00 64 28 128/45 96 Mechanical Ventilator 60 02/14/17 06:00 63 30 121/48 97 Mechanical Ventilator 60 02/14/17 06:00 60 02/14/17 05:00 65 28 111/48 97 Mechanical Ventilator 60 02/14/17 04:48 63 29 60 02/14/17 04:00 98.2 66 25 114/37 97 Mechanical Ventilator 60 02/14/17 04:00 66 02/14/17 03:00 68 26 117/74 97 Mechanical Ventilator 60 02/14/17 02:58 68 30 60 02/14/17 02:00 70 27 101/33 97 Mechanical Ventilator 60 02/14/17 01:30 71 27 116/38 95 Mechanical Ventilator 60 02/14/17 01:04 72 32 60 02/14/17 01:00 72 27 117/54 96 Mechanical Ventilator 60 02/14/17 00:30 75 24 123/36 95 Mechanical Ventilator 60 02/14/17 00:00 98.4 75 30 129/40 95 Mechanical Ventilator 60 02/14/17 00:00 60 02/14/17 00:00 75 02/13/17 23:30 77 28 149/44 95 Mechanical Ventilator 60 02/13/17 23:00 80 27 158/43 95 Mechanical Ventilator 60 02/13/17 22:38 84 34 60 02/13/17 22:30 78 28 135/37 95 Mechanical Ventilator 60 02/13/17 22:00 81 27 146/46 96 Mechanical Ventilator 60 02/13/17 21:30 81 27 150/45 95 Mechanical Ventilator 60 02/13/17 21:00 81 29 142/46 97 Mechanical Ventilator 60 02/13/17 20:44 79 30 60 02/13/17 20:30 81 26 101/58 98 Mechanical Ventilator 60 02/13/17 20:00 81 02/13/17 20:00 70 02/13/17 20:00 98.7 102 31 106/44 95 Mechanical Ventilator 60 02/13/17 19:30 81 27 122/41 94 Mechanical Ventilator 60 02/13/17 19:00 102/46 02/13/17 19:00 89 30 102/46 97 Mechanical Ventilator 60 02/13/17 18:58 79 31 60 02/13/17 18:30 106 29 106/40 97 Mechanical Ventilator 60 02/13/17 18:00 99 30 116/57 97 Mechanical Ventilator 60 02/13/17 18:00 116/57 02/13/17 17:30 100 26 101/62 95 Mechanical Ventilator 70 02/13/17 17:13 81 30 60 02/13/17 17:00 107 28 105/70 93 Mechanical Ventilator 70 02/13/17 17:00 105/70 02/13/17 16:30 83 34 94/22 93 Mechanical Ventilator 70 02/13/17 16:00 98.1 102 35 111/35 94 Mechanical Ventilator 70 02/13/17 16:00 83 02/13/17 16:00 111/35 02/13/17 16:00 70 02/13/17 15:30 115 33 96/24 94 Mechanical Ventilator 70 02/13/17 15:11 83 32 60 02/13/17 15:00 101 35 118/54 95 Mechanical Ventilator 70 02/13/17 15:00 118/54 02/13/17 14:30 89 25 103/31 96 Mechanical Ventilator 70 02/13/17 14:00 105 29 92/26 97 Mechanical Ventilator 70 02/13/17 14:00 92/26 02/13/17 13:30 71 21 127/23 97 Mechanical Ventilator 70 02/13/17 13:05 74 30 60 02/13/17 13:00 71 21 89/60 97 Mechanical Ventilator 70 02/13/17 13:00 89/60 02/13/17 12:30 72 18 111/29 96 Mechanical Ventilator 70 02/13/17 12:00 72 02/13/17 12:00 93/54 02/13/17 12:00 70 02/13/17 12:00 97.6 72 21 93/54 99 Mechanical Ventilator 70 02/13/17 11:30 71 19 112/36 99 Mechanical Ventilator 70 Labs: Labs Test 02/12/17 04:05 02/12/17 23:30 02/13/17 04:05 02/14/17 04:30 White Blood Count 27.5 K/UL (4.8-10.8) 23.8 K/UL (4.8-10.8) 17.9 K/UL (4.8-10.8) Red Blood Count 2.87 M/UL (4.20-5.40) 2.67 M/UL (4.20-5.40) 2.29 M/UL (4.20-5.40) Hemoglobin 8.7 G/DL (12.0-16.0) 8.0 G/DL (12.0-16.0) 6.8 G/DL (12.0-16.0) Hematocrit 26.1 % (37.0-47.0) 24.2 % (37.0-47.0) 20.9 % (37.0-47.0) Mean Corpuscular Volume 91 FL (80-99) 91 FL (80-99) 91 FL (80-99) Mean Corpuscular Hemoglobin 30.5 PG (27.0-31.0) 30.1 PG (27.0-31.0) 29.8 PG (27.0-31.0) Mean Corpuscular Hemoglobin Concent 33.5 G/DL (32.0-36.0) 33.2 G/DL (32.0-36.0) 32.6 G/DL (32.0-36.0) Red Cell Distribution Width 16.1 % (11.6-14.8) 15.9 % (11.6-14.8) 16.9 % (11.6-14.8) Platelet Count 30 K/UL (150-450) 25 K/UL (150-450) 23 K/UL (150-450) Mean Platelet Volume 8.0 FL (6.5-10.1) 10.7 FL (6.5-10.1) 10.6 FL (6.5-10.1) Neutrophils (%) (Auto) % (45.0-75.0) % (45.0-75.0) % (45.0-75.0) Lymphocytes (%) (Auto) % (20.0-45.0) % (20.0-45.0) % (20.0-45.0) Monocytes (%) (Auto) % (1.0-10.0) % (1.0-10.0) % (1.0-10.0) Eosinophils (%) (Auto) % (0.0-3.0) % (0.0-3.0) % (0.0-3.0) Basophils (%) (Auto) % (0.0-2.0) % (0.0-2.0) % (0.0-2.0) Differential Total Cells Counted 100 100 100 Neutrophils % (Manual) 76 % (45-75) 94 % (45-75) 88 % (45-75) Lymphocytes % (Manual) 12 % (20-45) 2 % (20-45) 9 % (20-45) Monocytes % (Manual) 8 % (1-10) 4 % (1-10) 3 % (1-10) Eosinophils % (Manual) 2 % (0-3) 0 % (0-3) 0 % (0-3) Basophils % (Manual) 0 % (0-2) 0 % (0-2) 0 % (0-2) Band Neutrophils 2 % (0-8) 0 % (0-8) 0 % (0-8) Nucleated Red Blood Cells 4 /100 WBC 3 /100 WBC Platelet Estimate Decreased Decreased Decreased Platelet Morphology Normal Normal Normal Hypochromasia 2+ 1+ 1+ Anisocytosis 1+ 1+ 1+ Spherocytes 1+ Sodium Level 141 mEQ/L (135-145) 136 mEQ/L (135-145) 137 mEQ/L (135-145) Potassium Level 3.6 mEQ/L (3.4-4.9) 4.2 mEQ/L (3.4-4.9) 4.4 mEQ/L (3.4-4.9) Chloride Level 101 mEQ/L (98-107) 97 mEQ/L (98-107) 95 mEQ/L (98-107) Carbon Dioxide Level 25 mEQ/L (20-30) 24 mEQ/L (20-30) 22 mEQ/L (20-30) Anion Gap 15 (5-15) 15 (5-15) 20 (5-15) Blood Urea Nitrogen 61 mg/dL (7-23) 78 mg/dL (7-23) 102 mg/dL (7-23) Creatinine 3.4 mg/dL (0.5-0.9) 4.3 mg/dL (0.5-0.9) 5.2 mg/dL (0.5-0.9) Estimat Glomerular Filtration Rate mL/min (>60) mL/min (>60) mL/min (>60) Glucose Level 119 mg/dL (74-106) 218 mg/dL (74-106) 129 mg/dL (74-106) Uric Acid 5.2 mg/dL (3.0-7.5) 7.1 mg/dL (3.0-7.5) 9.8 mg/dL (3.0-7.5) Calcium Level 7.8 mg/dL (8.6-10.2) 8.1 mg/dL (8.6-10.2) 8.4 mg/dL (8.6-10.2) Phosphorus Level 3.7 mg/dL (2.5-4.8) 4.0 mg/dL (2.5-4.8) 5.4 mg/dL (2.5-4.8) Magnesium Level 1.8 mg/dL (1.7-2.5) 1.8 mg/dL (1.7-2.5) 2.1 mg/dL (1.7-2.5) Total Bilirubin 0.9 mg/dL (0.0-1.2) 0.9 mg/dL (0.0-1.2) 0.7 mg/dL (0.0-1.2) Aspartate Amino Transf (AST/SGOT) 22 U/L (5-40) 19 U/L (5-40) 23 U/L (5-40) Alanine Aminotransferase (ALT/SGPT) 23 U/L (3-33) 15 U/L (3-33) 11 U/L (3-33) Alkaline Phosphatase 263 U/L (35-104) 264 U/L (35-104) 237 U/L (35-104) C-Reactive Protein, Quantitative 20.6 mg/dL (< 0.5) 18.5 mg/dL (< 0.5) 9.4 mg/dL (< 0.5) Pro-B-Type Natriuretic Peptide 85362 pg/mL (0-450) 08853 pg/mL (0-450) 23024 pg/mL (0-450) Total Protein 4.5 g/dL (6.6-8.7) 4.5 g/dL (6.6-8.7) 4.3 g/dL (6.6-8.7) Albumin 1.6 g/dL (3.5-5.2) 1.8 g/dL (3.5-5.2) 1.8 g/dL (3.5-5.2) Globulin 2.9 g/dL 2.7 g/dL 2.5 g/dL Albumin/Globulin Ratio 0.5 (1.0-2.7) 0.6 (1.0-2.7) 0.7 (1.0-2.7) Haptoglobin < 29 mg/dL (30-200) Prothrombin Time 12.2 SEC (9.30-11.50) Prothromb Time International Ratio 1.2 (0.9-1.1) Polychromasia 1+ Occasional Gamma Glutamyl Transpeptidase 45 U/L (5-36) Test 02/14/17 06:10 White Blood Count 17.9 K/UL (4.8-10.8) Red Blood Count 2.32 M/UL (4.20-5.40) Hemoglobin 6.9 G/DL (12.0-16.0) Hematocrit 20.8 % (37.0-47.0) Mean Corpuscular Volume 90 FL (80-99) Mean Corpuscular Hemoglobin 29.8 PG (27.0-31.0) Mean Corpuscular Hemoglobin Concent 33.3 G/DL (32.0-36.0) Red Cell Distribution Width 16.4 % (11.6-14.8) Platelet Count 26 K/UL (150-450) Mean Platelet Volume 10.6 FL (6.5-10.1) Neutrophils (%) (Auto) % (45.0-75.0) Lymphocytes (%) (Auto) % (20.0-45.0) Monocytes (%) (Auto) % (1.0-10.0) Eosinophils (%) (Auto) % (0.0-3.0) Basophils (%) (Auto) % (0.0-2.0) Differential Total Cells Counted 100 Neutrophils % (Manual) 90 % (45-75) Lymphocytes % (Manual) 7 % (20-45) Monocytes % (Manual) 3 % (1-10) Eosinophils % (Manual) 0 % (0-3) Basophils % (Manual) 0 % (0-2) Band Neutrophils 0 % (0-8) Nucleated Red Blood Cells 2 /100 WBC Platelet Estimate Decreased Platelet Morphology Normal Polychromasia 1+ Hypochromasia 1+ Anisocytosis 1+ Objective: WDWN chronically ill appearing; on the ventilator NAD coarse breath sounds bilaterally with reduced rhonchi but no wheeze orally intubated S1S2 IRRR without MRG; rate controlled NABS nontender no HSM; feeding tube in place; no distention no CC; some edema nonfocal remains poorly responsive skin noted and examined pupils sluggish Accucheck: 119 FELIPE PATHAK Feb 14, 2017 11:33
[2017-02-14] MEDS: Meropenem 500 MG in NS 55 ML IVPB SCH (13:38)
--- NOTE | 2017-02-14 16:11 | Cardiology Progress Note ---
Assessment/Plan Problem List: (1) Acute on chronic renal failure (2) Pneumonia (3) Sepsis (4) Hyperkalemia (5) Dementia (6) Diabetes mellitus Status: stable, progressing Status Narrative Pt w respiratory failure , pneumonia/sepsis. She has been weaned from pressors (norepi) Renal failure - undergoing HD this pm. Needs fluid removal PAF - appears now in SR , with improved hemodynamics Assessment/Plan Continue antibiotics per ID. Dialysis w/ fluid removal today. Followup labs, CXR Consider oral ( NGT) amiodarone to maintain SR, though sinus rates are low-nl range at baseline Subjective ROS Limited/Unobtainable: Yes Subjective Cardiology for Dr. Rush Intubated/ more alert Objective Last 24 Hour Vital Signs Date Time Temp Pulse Resp B/P Pulse Ox O2 Delivery O2 Flow Rate FiO2 02/14/17 15:05 64 31 60 02/14/17 15:00 66 24 125/40 96 Mechanical Ventilator 60 02/14/17 14:00 59 24 98/37 96 Mechanical Ventilator 60 02/14/17 13:09 59 33 60 02/14/17 13:00 60 20 93/36 96 Mechanical Ventilator 60 02/14/17 13:00 63 02/14/17 12:00 60 02/14/17 12:00 97.5 68 33 109/36 94 Mechanical Ventilator 60 02/14/17 11:22 65 33 60 02/14/17 11:00 66 33 123/39 99 Mechanical Ventilator 60 02/14/17 10:00 63 27 115/41 96 Mechanical Ventilator 60 02/14/17 09:05 64 30 60 02/14/17 09:00 66 29 108/44 94 Mechanical Ventilator 60 02/14/17 08:00 97.5 62 28 105/40 95 Mechanical Ventilator 60 02/14/17 08:00 60 02/14/17 08:00 63 02/14/17 07:05 66 30 60 02/14/17 07:00 64 28 128/45 96 Mechanical Ventilator 60 02/14/17 06:00 63 30 121/48 97 Mechanical Ventilator 60 02/14/17 06:00 60 02/14/17 05:00 65 28 111/48 97 Mechanical Ventilator 60 02/14/17 04:48 63 29 60 02/14/17 04:00 98.2 66 25 114/37 97 Mechanical Ventilator 60 02/14/17 04:00 66 4/15/17 03:00 68 26 117/74 97 Mechanical Ventilator 60 02/14/17 02:58 68 30 60 02/14/17 02:00 70 27 101/33 97 Mechanical Ventilator 60 02/14/17 01:30 71 27 116/38 95 Mechanical Ventilator 60 02/14/17 01:04 72 32 60 02/14/17 01:00 72 27 117/54 96 Mechanical Ventilator 60 02/14/17 00:30 75 24 123/36 95 Mechanical Ventilator 60 02/14/17 00:00 98.4 75 30 129/40 95 Mechanical Ventilator 60 02/14/17 00:00 60 02/14/17 00:00 75 02/13/17 23:30 77 28 149/44 95 Mechanical Ventilator 60 02/13/17 23:00 80 27 158/43 95 Mechanical Ventilator 60 02/13/17 22:38 84 34 60 02/13/17 22:30 78 28 135/37 95 Mechanical Ventilator 60 02/13/17 22:00 81 27 146/46 96 Mechanical Ventilator 60 02/13/17 21:30 81 27 150/45 95 Mechanical Ventilator 60 02/13/17 21:00 81 29 142/46 97 Mechanical Ventilator 60 02/13/17 20:44 79 30 60 02/13/17 20:30 81 26 101/58 98 Mechanical Ventilator 60 02/13/17 20:00 81 02/13/17 20:00 70 02/13/17 20:00 98.7 102 31 106/44 95 Mechanical Ventilator 60 02/13/17 19:30 81 27 122/41 94 Mechanical Ventilator 60 02/13/17 19:00 102/46 02/13/17 19:00 89 30 102/46 97 Mechanical Ventilator 60 02/13/17 18:58 79 31 60 02/13/17 18:30 106 29 106/40 97 Mechanical Ventilator 60 02/13/17 18:00 99 30 116/57 97 Mechanical Ventilator 60 02/13/17 18:00 116/57 02/13/17 17:30 100 26 101/62 95 Mechanical Ventilator 70 02/13/17 17:13 81 30 60 02/13/17 17:00 107 28 105/70 93 Mechanical Ventilator 70 02/13/17 17:00 105/70 02/13/17 16:30 83 34 94/22 93 Mechanical Ventilator 70 General Appearance: WD/WN, on vent EENT: PERRL/EOMI Neck: supple, no JVD, other - tunnelled R IJ HD catheter Rhythm: NSR Cardiovascular: normal rate, regular rhythm Respiratory/Chest: lungs clear - clear anteriorly Abdomen: non tender, soft Extremities: moderate edema - 2+ pitting edema of hands bilat Intake and Output 02/13/17 02/14/17 19:00 07:00 Intake Total 714.80 ml 100.44 ml Output Total 0 ml 0 ml Balance 714.80 ml 100.44 ml IV Total 389.80 ml 100.44 ml Blood Product 325 ml Output Urine Total 0 ml 0 ml # Bowel Movements 1 1 Laboratory Tests Test 02/14/17 04:30 02/14/17 06:10 White Blood Count 17.9 K/UL (4.8-10.8) H 17.9 K/UL (4.8-10.8) H Red Blood Count 2.29 M/UL (4.20-5.40) L 2.32 M/UL (4.20-5.40) L Hemoglobin 6.8 G/DL (12.0-16.0) *L 6.9 G/DL (12.0-16.0) *L Hematocrit 20.9 % (37.0-47.0) L 20.8 % (37.0-47.0) L Mean Corpuscular Volume 91 FL (80-99) 90 FL (80-99) Mean Corpuscular Hemoglobin 29.8 PG (27.0-31.0) 29.8 PG (27.0-31.0) Mean Corpuscular Hemoglobin Concent 32.6 G/DL (32.0-36.0) 33.3 G/DL (32.0-36.0) Red Cell Distribution Width 16.9 % (11.6-14.8) H 16.4 % (11.6-14.8) H Platelet Count 23 K/UL (150-450) L 26 K/UL (150-450) L Mean Platelet Volume 10.6 FL (6.5-10.1) H 10.6 FL (6.5-10.1) H Neutrophils (%) (Auto) % (45.0-75.0) % (45.0-75.0) Lymphocytes (%) (Auto) % (20.0-45.0) % (20.0-45.0) Monocytes (%) (Auto) % (1.0-10.0) % (1.0-10.0) Eosinophils (%) (Auto) % (0.0-3.0) % (0.0-3.0) Basophils (%) (Auto) % (0.0-2.0) % (0.0-2.0) Differential Total Cells Counted 100 100 Neutrophils % (Manual) 88 % (45-75) H 90 % (45-75) H Lymphocytes % (Manual) 9 % (20-45) L 7 % (20-45) L Monocytes % (Manual) 3 % (1-10) 3 % (1-10) Eosinophils % (Manual) 0 % (0-3) 0 % (0-3) Basophils % (Manual) 0 % (0-2) 0 % (0-2) Band Neutrophils 0 % (0-8) 0 % (0-8) Platelet Estimate Decreased L Decreased L Platelet Morphology Normal Normal Polychromasia Occasional 1+ Hypochromasia 1+ 1+ Anisocytosis 1+ 1+ Sodium Level 137 mEQ/L (135-145) Potassium Level 4.4 mEQ/L (3.4-4.9) Chloride Level 95 mEQ/L (98-107) L Carbon Dioxide Level 22 mEQ/L (20-30) Anion Gap 20 (5-15) H Blood Urea Nitrogen 102 mg/dL (7-23) H Creatinine 5.2 mg/dL (0.5-0.9) H Estimat Glomerular Filtration Rate mL/min (>60) Glucose Level 129 mg/dL (74-106) H Uric Acid 9.8 mg/dL (3.0-7.5) H Calcium Level 8.4 mg/dL (8.6-10.2) L Phosphorus Level 5.4 mg/dL (2.5-4.8) H Magnesium Level 2.1 mg/dL (1.7-2.5) Total Bilirubin 0.7 mg/dL (0.0-1.2) Aspartate Amino Transf (AST/SGOT) 23 U/L (5-40) Alanine Aminotransferase (ALT/SGPT) 11 U/L (3-33) Alkaline Phosphatase 237 U/L (35-104) H C-Reactive Protein, Quantitative 9.4 mg/dL (< 0.5) H Pro-B-Type Natriuretic Peptide 31358 pg/mL (0-450) H Total Protein 4.3 g/dL (6.6-8.7) L Albumin 1.8 g/dL (3.5-5.2) L Globulin 2.5 g/dL Albumin/Globulin Ratio 0.7 (1.0-2.7) L Nucleated Red Blood Cells 2 /100 WBC WANDA SKELTON Feb 14, 2017 16:11
--- NOTE | 2017-02-14 17:19 | General Progress Note ---
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 bilateral right greater than left pleural effusions and mediastinal lymphadenopathy - she is a poor candidate for biopsy and has a poor prognosis # Anemia 2/2 chronic disease - s/p multiple units of blood # Leukocytosis - related to sepsis and underlying infection, is on antibiotics and counts decreasing # Respiratory failure s/p intubation # Respiratory acidosis # Renal failure # ALOC # Sepsis Recs: - Considering terminal extubation, comfort care as per primary - Transfuse to hgb goal >7, plt goal >20k if bleeding --> conservative management - Give PRBC during HD due to hgb<7 - She is off heparin, plavix, aspirin - Agree to administer FFP if INR >2 - Does not require a biopsy as has poor prognosis and poor outcome at this time - NG feeds at maximal rate - Appreciate consultation! continue to follow Subjective ROS Limited/Unobtainable: Yes Constitutional: Reports: no symptoms HEENT: Reports: no symptoms Cardiovascular: Reports: no symptoms Respiratory: Reports: other - on a vent Gastrointestinal/Abdominal: Reports: no symptoms Genitourinary: Reports: no symptoms 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: Reports: no symptoms Endocrine: Reports: no symptoms Hematologic/Lymphatic: Reports: anemia Allergies: Coded Allergies: MORPHINE (Verified Adverse Reaction, Severe, PARADOXICAL REACTION, 10/08/12 ) Subjective pt on a vent Objective Last 24 Hour Vital Signs Date Time Temp Pulse Resp B/P Pulse Ox O2 Delivery O2 Flow Rate FiO2 02/14/17 17:00 88 25 99/32 95 Mechanical Ventilator 60 02/14/17 16:00 60 02/14/17 16:00 67 02/14/17 16:00 97.4 69 26 113/51 98 Mechanical Ventilator 60 02/14/17 15:05 64 31 60 02/14/17 15:00 66 24 125/40 96 Mechanical Ventilator 60 02/14/17 14:40 Mechanical Ventilator 15.0 60 02/14/17 14:00 59 24 98/37 96 Mechanical Ventilator 60 02/14/17 13:09 59 33 60 02/14/17 13:00 60 20 93/36 96 Mechanical Ventilator 60 02/14/17 13:00 63 02/14/17 12:00 60 02/14/17 12:00 97.5 68 33 109/36 94 Mechanical Ventilator 60 02/14/17 11:22 65 33 60 02/14/17 11:00 66 33 123/39 99 Mechanical Ventilator 60 02/14/17 10:00 63 27 115/41 96 Mechanical Ventilator 60 02/14/17 09:05 64 30 60 02/14/17 09:00 66 29 108/44 94 Mechanical Ventilator 60 02/14/17 08:00 97.5 62 28 105/40 95 Mechanical Ventilator 60 02/14/17 08:00 60 02/14/17 08:00 63 02/14/17 07:05 66 30 60 02/14/17 07:00 64 28 128/45 96 Mechanical Ventilator 60 02/14/17 06:00 63 30 121/48 97 Mechanical Ventilator 60 02/14/17 06:00 60 02/14/17 05:00 65 28 111/48 97 Mechanical Ventilator 60 02/14/17 04:48 63 29 60 02/14/17 04:00 98.2 66 25 114/37 97 Mechanical Ventilator 60 02/14/17 04:00 66 02/14/17 03:00 68 26 117/74 97 Mechanical Ventilator 60 02/14/17 02:58 68 30 60 02/14/17 02:00 70 27 101/33 97 Mechanical Ventilator 60 02/14/17 01:30 71 27 116/38 95 Mechanical Ventilator 60 02/14/17 01:04 72 32 60 02/14/17 01:00 72 27 117/54 96 Mechanical Ventilator 60 02/14/17 00:30 75 24 123/36 95 Mechanical Ventilator 60 02/14/17 00:00 98.4 75 30 129/40 95 Mechanical Ventilator 60 02/14/17 00:00 60 02/14/17 00:00 75 02/13/17 23:30 77 28 149/44 95 Mechanical Ventilator 60 02/13/17 23:00 80 27 158/43 95 Mechanical Ventilator 60 02/13/17 22:38 84 34 60 02/13/17 22:30 78 28 135/37 95 Mechanical Ventilator 60 02/13/17 22:00 81 27 146/46 96 Mechanical Ventilator 60 02/13/17 21:30 81 27 150/45 95 Mechanical Ventilator 60 02/13/17 21:00 81 29 142/46 97 Mechanical Ventilator 60 02/13/17 20:44 79 30 60 02/13/17 20:30 81 26 101/58 98 Mechanical Ventilator 60 02/13/17 20:00 81 02/13/17 20:00 70 02/13/17 20:00 98.7 102 31 106/44 95 Mechanical Ventilator 60 02/13/17 19:30 81 27 122/41 94 Mechanical Ventilator 60 02/13/17 19:00 102/46 02/13/17 19:00 89 30 102/46 97 Mechanical Ventilator 60 02/13/17 18:58 79 31 60 02/13/17 18:30 106 29 106/40 97 Mechanical Ventilator 60 02/13/17 18:00 99 30 116/57 97 Mechanical Ventilator 60 02/13/17 18:00 116/57 02/13/17 17:30 100 26 101/62 95 Mechanical Ventilator 70 02/13/17 17:13 81 30 60 Intake and Output 02/13/17 02/14/17 18:59 06:59 Intake Total 731.54 ml 125.55 ml Output Total 0 ml 0 ml Balance 731.54 ml 125.55 ml IV Total 406.54 ml 125.55 ml Blood Product 325 ml Output Urine Total 0 ml 0 ml # Bowel Movements 1 1 Laboratory Tests 02/14/17 04:30: White Blood Count 17.9H, Red Blood Count 2.29L, Hemoglobin 6.8*L, Hematocrit 20.9L, Mean Corpuscular Volume 91, Mean Corpuscular Hemoglobin 29.8, Mean Corpuscular Hemoglobin Concent 32.6, Red Cell Distribution Width 16.9H, Platelet Count 23L, Mean Platelet Volume 10.6H, Neutrophils (%) (Auto) , Lymphocytes (%) (Auto) , Monocytes (%) (Auto) , Eosinophils (%) (Auto) , Basophils (%) (Auto) , Differential Total Cells Counted 100, Neutrophils % ( Manual) 88H, Lymphocytes % (Manual) 9L, Monocytes % (Manual) 3, Eosinophils % ( Manual) 0, Basophils % (Manual) 0, Band Neutrophils 0, Platelet Estimate DecreasedL, Platelet Morphology Normal, Polychromasia Occasional, Hypochromasia 1+, Anisocytosis 1+, Sodium Level 137, Potassium Level 4.4, Chloride Level 95L, Carbon Dioxide Level 22, Anion Gap 20H, Blood Urea Nitrogen 102H, Creatinine 5.2H, Estimat Glomerular Filtration Rate , Glucose Level 129H, Uric Acid 9.8H, Calcium Level 8.4L, Phosphorus Level 5.4H, Magnesium Level 2.1, Total Bilirubin 0.7, Aspartate Amino Transf (AST/SGOT) 23, Alanine Aminotransferase (ALT/SGPT) 11, Alkaline Phosphatase 237H, C-Reactive Protein, Quantitative 9.4H, Pro-B- Type Natriuretic Peptide [id number], Total Protein 4.3L, Albumin 1.8L, Globulin 2.5 , Albumin/Globulin Ratio 0.7L 02/14/17 06:10: White Blood Count 17.9H, Red Blood Count 2.32L, Hemoglobin 6.9*L, Hematocrit 20.8L, Mean Corpuscular Volume 90, Mean Corpuscular Hemoglobin 29.8, Mean Corpuscular Hemoglobin Concent 33.3, Red Cell Distribution Width 16.4H, Platelet Count 26L, Mean Platelet Volume 10.6H, Neutrophils (%) (Auto) , Lymphocytes (%) (Auto) , Monocytes (%) (Auto) , Eosinophils (%) (Auto) , Basophils (%) (Auto) , Differential Total Cells Counted 100, Neutrophils % ( Manual) 90H, Lymphocytes % (Manual) 7L, Monocytes % (Manual) 3, Eosinophils % ( Manual) 0, Basophils % (Manual) 0, Band Neutrophils 0, Platelet Estimate DecreasedL, Platelet Morphology Normal, Polychromasia 1+, Hypochromasia 1+, Anisocytosis 1+, Nucleated Red Blood Cells 2 Height (Feet): 5 Height (Inches): 1.00 Weight (Pounds): 200 General Appearance: WD/WN EENT: PERRL/EOMI Neck: non-tender Cardiovascular: normal peripheral pulses Respiratory/Chest: lungs clear Abdomen: normal bowel sounds Edema: 2+ Arm (L), 2+ Arm (R), no edema noted Leg (L), no edema noted Leg (R), no edema noted Pedal (L), no edema noted Pedal (R) Neurologic: unresponsive Skin: warm/dry MICHAEL LANZA Feb 14, 2017 17:19
[2017-02-14] MEDS: Norepinephrine Bitartrate 8 MG in D5W 500ml 550 ML IV SCH (23:47)
[2017-02-15] VITALS (24 sets, daily range): BP systolic 94–133; BP diastolic 26–72
--- NOTE | 2017-02-15 01:08 | Consultation ---
DATE OF CONSULTATION: 02/14/2017 GASTROLOGY CONSULTATION CHIEF COMPLAINT: I was asked to see this patient for PPD intolerance. HISTORY OF PRESENT ILLNESS: The patient is a 76-year-old woman who is debilitated and in the ICU, on ventilator with renal failure and multiple medical problems who is being fed by feeding tube. The patient has been noted to intolerant of feeding tube and therefore . The patient has been also feeding for three days and now feeding needs to be restarted today. The patient initially admitted about a month ago or so and since then has had a francisco javier course and currently in ICU on the ventilator. She has also had medical problems which are . The patient has been unable to provide any history. Most of the information is only available from the chart. PAST MEDICAL HISTORY: History of diabetes, chronic kidney disease, coronary artery disease, dementia, history of osteomyelitis of the right ankle with hardware infection and respiratory failure requiring intubation and mechanical ventilation, gastroparesis, and anemia. MEDICATIONS: . ALLERGIES: Morphine. FAMILY HISTORY: Unavailable. SOCIAL HISTORY: The patient lives at long-term. There is no family who will . There is no history of recent smoking or drinking. REVIEW OF SYSTEMS: Otherwise negative. PHYSICAL EXAMINATION: GENERAL: A debilitated white woman seen in the ICU on the ventilator. She was arousable and difficult to communicate with her. She did raise her hand after I gave her a set of commands to do so. HEENT: Normocephalic and atraumatic. Also, endotracheal tube is in place. NECK: Supple. CHEST: Coarse breath sounds. CARDIOVASCULAR: Regular rhythm and rate. ABDOMEN: Soft and flat. Positive bowel sounds. EXTREMITIES: No edema. LABORATORY AND DIAGNOSTIC DATA: Laboratory were noted. ASSESSMENT AND PLAN: This patient had some tube feeding intolerance in the last few days and the tube feeding had been held. It is felt the typical causes include infections such as also have a role. The patient has history of diabetes. 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 I will first check her stool for Clostridium difficile colitis and watch her residuals carefully. motility agents can also be used if needed to support gastric motility. Anticholenergic medications should be avoided. I agree with the Protonix given and should the symptoms persist and more aggressive interventions . Recommendations per above discussion with orders written in chart. Thank you for asking me to participate in the care of this patient. Carlos Jensen M.D. DR: MARLIN JOB#: [id number] CC:
[2017-02-15 05:00] LABS: MEAN CORPUSCULAR HEMOGLOBIN 30.6 PG (27.0-31.0); MEAN CORPUSCULAR HGB CONC 33.8 G/DL (32.0-36.0); MEAN CORPUSCULAR VOLUME 91 FL (80-99); MEAN PLATELET VOLUME 10.4 FL (6.5-10.1); PLATELET COUNT 21 K/UL (150-450); RED BLOOD COUNT 3.32 M/UL (4.20-5.40); RED CELL DISTRIBUTION WIDTH 14.6 % (11.6-14.8); WHITE BLOOD COUNT 15.8 K/UL (4.8-10.8)
[2017-02-15 05:07] LABS: ALANINE AMINOTRANSFERASE 13 U/L (3-33); ALBUMIN/GLOBULIN RATIO 0.9 (1.0-2.7); ANION GAP 20 (5-15); ASPARTATE AMINO TRANSFERASE 35 U/L (5-40); CALCIUM 8.3 mg/dL (8.6-10.2); CARBON DIOXIDE 25 mEQ/L (20-30); CHLORIDE 91 mEQ/L (98-107); CREATININE 4.5 mg/dL (0.5-0.9); HEMOLYSIS 8; SODIUM 136 mEQ/L (135-145); TOTAL PROTEIN 4.2 g/dL (6.6-8.7)
[2017-02-15] MEDS: Hydrocortisone 100mg Inj IV SCH ×3 (05:57→21:55)
[2017-02-15] MEDS: NovoLOG Insulin Flexpen SUBQ SCH ×4 (05:59→23:35)
[2017-02-15 08:02] LABS: BAND NEUTROPHILS % (MANUAL) 0 % (0-8); BASOPHILS % (MANUAL) 0 % (0-2); EOSINOPHILS % (MANUAL) 0 % (0-3); HYPOCHROMASIA 1+; LYMPHOCYTES % (MANUAL) 1 % (20-45); NEUTROPHILS % (MANUAL) 96 % (45-75); PLATELET ESTIMATE DECREASED; PLATELET MORPHOLOGY NORMAL; SPHEROCYTES 1+; TOTAL CELLS COUNTED 100
[2017-02-15 08:03] LABS: ANISOCYTOSIS 1+; POLYCHROMASIA 1+
[2017-02-15] MEDS: Pantoprazole Inj IVP SCH ×2 (08:51→20:40)
[2017-02-15] MEDS: Analgesic Balm 15gm TOPIC SCH ×4 (08:51→20:40)
--- NOTE | 2017-02-15 09:04 | Infectious Diseases Prog Note ---
Assessment/Plan Assessment/Plan A: Pneumonia with Klebsiella Hypercapnic respiratory failure UTI ESRD started on HD DM history of ankle fracture P: continue Meropenem Subjective ROS Limited/Unobtainable: Yes Allergies: Coded Allergies: MORPHINE (Verified Adverse Reaction, Severe, PARADOXICAL REACTION, 10/08/12 ) Objective Vital Signs Last 24 Hour Vital Signs Date Time Temp Pulse Resp B/P Pulse Ox O2 Delivery O2 Flow Rate FiO2 02/15/17 08:00 97.6 73 31 126/50 98 Mechanical Ventilator 60 02/15/17 08:00 60 02/15/17 07:00 75 21 129/49 99 Mechanical Ventilator 60 02/15/17 06:54 68 33 70 02/15/17 06:00 70 27 107/40 100 Mechanical Ventilator 60 02/15/17 05:21 78 28 70 02/15/17 05:00 83 24 118/42 100 Mechanical Ventilator 60 02/15/17 04:00 74 02/15/17 04:00 60 02/15/17 04:00 97.9 74 26 128/49 100 Mechanical Ventilator 60 02/15/17 03:00 75 28 129/53 100 Mechanical Ventilator 60 02/15/17 02:51 74 28 70 02/15/17 02:00 71 25 102/31 100 Mechanical Ventilator 60 02/15/17 01:00 73 24 118/38 100 Mechanical Ventilator 60 02/15/17 00:46 81 30 70 02/15/17 00:00 98.2 78 29 115/43 100 Mechanical Ventilator 60 02/15/17 00:00 78 02/15/17 00:00 60 02/14/17 23:47 120/39 02/14/17 23:00 78 28 113/36 100 Mechanical Ventilator 60 02/14/17 22:46 74 32 70 02/14/17 22:00 73 29 91/32 98 Mechanical Ventilator 60 02/14/17 21:00 75 27 102/38 97 Mechanical Ventilator 60 02/14/17 20:57 75 32 70 02/14/17 20:00 60 02/14/17 20:00 74 02/14/17 20:00 97.6 80 25 107/49 98 Mechanical Ventilator 60 02/14/17 19:30 82 29 102/47 99 Mechanical Ventilator 60 02/14/17 19:02 76 33 70 02/14/17 19:00 83 25 87/28 97 Mechanical Ventilator 60 02/14/17 18:41 Mechanical Ventilator 15.0 60 02/14/17 18:00 82 21 104/50 96 Mechanical Ventilator 60 02/14/17 17:05 76 30 60 02/14/17 17:00 88 25 99/32 95 Mechanical Ventilator 60 02/14/17 16:00 60 02/14/17 16:00 67 02/14/17 16:00 97.4 69 26 113/51 98 Mechanical Ventilator 60 02/14/17 15:05 64 31 60 02/14/17 15:00 66 24 125/40 96 Mechanical Ventilator 60 02/14/17 14:40 Mechanical Ventilator 15.0 60 02/14/17 14:00 59 24 98/37 96 Mechanical Ventilator 60 02/14/17 13:09 59 33 60 02/14/17 13:00 60 20 93/36 96 Mechanical Ventilator 60 02/14/17 13:00 63 02/14/17 12:00 60 02/14/17 12:00 97.5 68 33 109/36 94 Mechanical Ventilator 60 02/14/17 11:22 65 33 60 02/14/17 11:00 66 33 123/39 99 Mechanical Ventilator 60 02/14/17 10:00 63 27 115/41 96 Mechanical Ventilator 60 02/14/17 09:05 64 30 60 Height (Feet): 5 Height (Inches): 1.00 Weight (Pounds): 200 HEENT: other - orally intubated Respiratory/Chest: lungs clear, respiratory distress, other - on ventilator Cardiovascular: normal rate Abdomen: soft, non tender, other - orogastric tube Extremities: other - mild edema of hands 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: other - awake Laboratory Tests Test 02/15/17 04:00 White Blood Count 15.8 K/UL (4.8-10.8) H Red Blood Count 3.32 M/UL (4.20-5.40) L Hemoglobin 10.2 G/DL (12.0-16.0) #L Hematocrit 30.1 % (37.0-47.0) #L Mean Corpuscular Volume 91 FL (80-99) Mean Corpuscular Hemoglobin 30.6 PG (27.0-31.0) Mean Corpuscular Hemoglobin Concent 33.8 G/DL (32.0-36.0) Red Cell Distribution Width 14.6 % (11.6-14.8) Platelet Count 21 K/UL (150-450) L Mean Platelet Volume 10.4 FL (6.5-10.1) H Neutrophils (%) (Auto) % (45.0-75.0) Lymphocytes (%) (Auto) % (20.0-45.0) Monocytes (%) (Auto) % (1.0-10.0) Eosinophils (%) (Auto) % (0.0-3.0) Basophils (%) (Auto) % (0.0-2.0) Differential Total Cells Counted 100 Neutrophils % (Manual) 96 % (45-75) H Lymphocytes % (Manual) 1 % (20-45) L Monocytes % (Manual) 3 % (1-10) Eosinophils % (Manual) 0 % (0-3) Basophils % (Manual) 0 % (0-2) Band Neutrophils 0 % (0-8) Platelet Estimate Decreased L Platelet Morphology Normal Polychromasia 1+ Hypochromasia 1+ Anisocytosis 1+ Spherocytes 1+ Sodium Level 136 mEQ/L (135-145) Potassium Level 4.0 mEQ/L (3.4-4.9) Chloride Level 91 mEQ/L (98-107) L Carbon Dioxide Level 25 mEQ/L (20-30) Anion Gap 20 (5-15) H Blood Urea Nitrogen 92 mg/dL (7-23) H Creatinine 4.5 mg/dL (0.5-0.9) H Estimat Glomerular Filtration Rate mL/min (>60) Glucose Level 201 mg/dL (74-106) H Calcium Level 8.3 mg/dL (8.6-10.2) L Phosphorus Level 6.0 mg/dL (2.5-4.8) H Total Bilirubin 0.7 mg/dL (0.0-1.2) Aspartate Amino Transf (AST/SGOT) 35 U/L (5-40) Alanine Aminotransferase (ALT/SGPT) 13 U/L (3-33) Alkaline Phosphatase 304 U/L (35-104) H Pro-B-Type Natriuretic Peptide 73479 pg/mL (0-450) H Total Protein 4.2 g/dL (6.6-8.7) L Albumin 2.0 g/dL (3.5-5.2) L Globulin 2.2 g/dL Albumin/Globulin Ratio 0.9 (1.0-2.7) L Random Vancomycin Level 4.3 ug/mL Current Medications Medications (Trade) Dose Ordered Sig/Rina Route PRN Reason Start Time Stop Time Status Last Admin Dose Admin Acetaminophen (Tylenol) 650 mg Q6H PRN ORAL Mild Pain/Temp > 100.5 02/07/17 17:00 03/09/17 16:59 Dextrose (Dextrose 50%) STAT PRN IV Hypoglycemia 02/07/17 17:00 03/09/17 16:59 Hydrocortisone (Solu-CORTEF) 100 mg EVERY 8 HOURS IV 02/12/17 16:00 03/14/17 15:59 02/15/17 05:57 Insulin Aspart (NovoLOG) Q6HR SUBQ 02/07/17 18:00 03/09/17 17:59 02/15/17 05:59 Menthol/Methyl Salicylate (Bengay) 1 applic FOUR TIMES A DAY TOPIC 02/07/17 18:00 03/09/17 17:59 02/15/17 08:51 Meropenem/Sodium Chloride (Merrem/Sodium Chloride) 55 ml @ 110 mls/hr DAILY@1400 IVPB 02/08/17 14:00 02/17/17 13:59 02/14/17 13:38 Nitroglycerin (Ntg) 0.4 mg Q5M X 3 DOSES PRN SL Prn Chest Pain 02/07/17 16:00 03/09/17 15:59 Norepinephrine Bitartrate/ Dextrose (Levophed/D5W 500ml) 558 ml @ 0 mls/hr Q24H IV 02/12/17 00:00 03/14/17 00:00 02/13/17 03:16 Ondansetron HCl (Zofran) 4 mg Q6H PRN IVP Nausea & Vomiting 02/07/17 17:00 03/09/17 16:59 02/11/17 10:59 Pantoprazole 40 mg 40 mg EVERY 12 HOURS IVP 02/07/17 21:00 03/09/17 20:59 02/15/17 08:51 Polyethylene Glycol (Miralax) 17 gm DAILYPRN PRN GT Constipation 02/07/17 17:00 03/09/17 16:59 NIVIA GUARDADO Feb 15, 2017 09:04
--- NOTE | 2017-02-15 10:41 | Critical Care Progress Note ---
Assessment/Plan Assessment/Plan hypoxemia respiratory failure respiratory acidosis pulmonary infiltrates thrombocytopenia renal failure ALOC chronic encephalopathy septic shock leukocytosis pulmonary infiltrates ARDS DIC likely s/p transfusion atrial fibrillation hypotension PLAN off heparin, plavix, aspirin poor chance of recovery transfused PRBC platelets still low follow up labs afib controlled levophed off hydrocortisone added monitor renal function; on HD per renal antibiotics noted taper fio2; as able follow up ABG prognosis remains poor; wbc improvement possible terminal extubation pending any meaningful recovery medications/laboratory data/nursing notes/ICU care reviewed in detail note reviewed and edited care discussed with RN and RT ICU time spent 37 minutes Critical Care - Subjective Interval Events: appears improved wbc better oxygen better bp better ROS Limited/Unobtainable: Yes Condition: critical EKG Rhythm: Atrial Fibrillation I&O: Intake and Output 02/14/17 02/15/17 19:00 07:00 Intake Total 805 ml 355 ml Output Total 1777 ml 0 ml Balance -972 ml 355 ml Free Water 50 ml 20 ml IV Total 55 ml Tube Feeding 100 ml 335 ml Blood Product 600 ml Output Urine Total 0 ml 0 ml Hemodialysis UF 1777 ml # Bowel Movements 3 1 Critical Care - Objective ET-Tube: 7.0 ET Position: 22 Last 24 Hour Vital Signs Date Time Temp Pulse Resp B/P Pulse Ox O2 Delivery O2 Flow Rate FiO2 02/15/17 10:00 71 24 117/40 99 Mechanical Ventilator 60 02/15/17 09:00 73 22 133/45 98 Mechanical Ventilator 60 02/15/17 08:56 74 30 70 02/15/17 08:00 74 02/15/17 08:00 97.6 73 31 126/50 98 Mechanical Ventilator 60 02/15/17 08:00 60 02/15/17 07:00 75 21 129/49 99 Mechanical Ventilator 60 02/15/17 06:54 68 33 70 02/15/17 06:00 70 27 107/40 100 Mechanical Ventilator 60 02/15/17 05:21 78 28 70 02/15/17 05:00 83 24 118/42 100 Mechanical Ventilator 60 02/15/17 04:00 74 02/15/17 04:00 60 02/15/17 04:00 97.9 74 26 128/49 100 Mechanical Ventilator 60 02/15/17 03:00 75 28 129/53 100 Mechanical Ventilator 60 02/15/17 02:51 74 28 70 02/15/17 02:00 71 25 102/31 100 Mechanical Ventilator 60 02/15/17 01:00 73 24 118/38 100 Mechanical Ventilator 60 02/15/17 00:46 81 30 70 02/15/17 00:00 98.2 78 29 115/43 100 Mechanical Ventilator 60 02/15/17 00:00 78 02/15/17 00:00 60 02/14/17 23:47 120/39 02/14/17 23:00 78 28 113/36 100 Mechanical Ventilator 60 02/14/17 22:46 74 32 70 02/14/17 22:00 73 29 91/32 98 Mechanical Ventilator 60 02/14/17 21:00 75 27 102/38 97 Mechanical Ventilator 60 02/14/17 20:57 75 32 70 02/14/17 20:00 60 02/14/17 20:00 74 02/14/17 20:00 97.6 80 25 107/49 98 Mechanical Ventilator 60 02/14/17 19:30 82 29 102/47 99 Mechanical Ventilator 60 02/14/17 19:02 76 33 70 02/14/17 19:00 83 25 87/28 97 Mechanical Ventilator 60 02/14/17 18:41 Mechanical Ventilator 15.0 60 02/14/17 18:00 82 21 104/50 96 Mechanical Ventilator 60 02/14/17 17:05 76 30 60 02/14/17 17:00 88 25 99/32 95 Mechanical Ventilator 60 02/14/17 16:00 60 02/14/17 16:00 67 02/14/17 16:00 97.4 69 26 113/51 98 Mechanical Ventilator 60 02/14/17 15:05 64 31 60 02/14/17 15:00 66 24 125/40 96 Mechanical Ventilator 60 02/14/17 14:40 Mechanical Ventilator 15.0 60 02/14/17 14:00 59 24 98/37 96 Mechanical Ventilator 60 02/14/17 13:09 59 33 60 02/14/17 13:00 60 20 93/36 96 Mechanical Ventilator 60 02/14/17 13:00 63 02/14/17 12:00 60 02/14/17 12:00 97.5 68 33 109/36 94 Mechanical Ventilator 60 02/14/17 11:22 65 33 60 02/14/17 11:00 66 33 123/39 99 Mechanical Ventilator 60 Labs: Labs Test 02/12/17 23:30 02/13/17 04:05 02/14/17 04:30 02/14/17 05:30 Haptoglobin < 29 mg/dL (30-200) Prothrombin Time 12.2 SEC (9.30-11.50) Prothromb Time International Ratio 1.2 (0.9-1.1) White Blood Count 23.8 K/UL (4.8-10.8) 17.9 K/UL (4.8-10.8) Red Blood Count 2.67 M/UL (4.20-5.40) 2.29 M/UL (4.20-5.40) Hemoglobin 8.0 G/DL (12.0-16.0) 6.8 G/DL (12.0-16.0) Hematocrit 24.2 % (37.0-47.0) 20.9 % (37.0-47.0) Mean Corpuscular Volume 91 FL (80-99) 91 FL (80-99) Mean Corpuscular Hemoglobin 30.1 PG (27.0-31.0) 29.8 PG (27.0-31.0) Mean Corpuscular Hemoglobin Concent 33.2 G/DL (32.0-36.0) 32.6 G/DL (32.0-36.0) Red Cell Distribution Width 15.9 % (11.6-14.8) 16.9 % (11.6-14.8) Platelet Count 25 K/UL (150-450) 23 K/UL (150-450) Mean Platelet Volume 10.7 FL (6.5-10.1) 10.6 FL (6.5-10.1) Neutrophils (%) (Auto) % (45.0-75.0) % (45.0-75.0) Lymphocytes (%) (Auto) % (20.0-45.0) % (20.0-45.0) Monocytes (%) (Auto) % (1.0-10.0) % (1.0-10.0) Eosinophils (%) (Auto) % (0.0-3.0) % (0.0-3.0) Basophils (%) (Auto) % (0.0-2.0) % (0.0-2.0) Differential Total Cells Counted 100 100 Neutrophils % (Manual) 94 % (45-75) 88 % (45-75) Lymphocytes % (Manual) 2 % (20-45) 9 % (20-45) Monocytes % (Manual) 4 % (1-10) 3 % (1-10) Eosinophils % (Manual) 0 % (0-3) 0 % (0-3) Basophils % (Manual) 0 % (0-2) 0 % (0-2) Band Neutrophils 0 % (0-8) 0 % (0-8) Nucleated Red Blood Cells 3 /100 WBC Platelet Estimate Decreased Decreased Platelet Morphology Normal Normal Polychromasia 1+ Occasional Hypochromasia 1+ 1+ Anisocytosis 1+ 1+ Sodium Level 136 mEQ/L (135-145) 137 mEQ/L (135-145) Potassium Level 4.2 mEQ/L (3.4-4.9) 4.4 mEQ/L (3.4-4.9) Chloride Level 97 mEQ/L (98-107) 95 mEQ/L (98-107) Carbon Dioxide Level 24 mEQ/L (20-30) 22 mEQ/L (20-30) Anion Gap 15 (5-15) 20 (5-15) Blood Urea Nitrogen 78 mg/dL (7-23) 102 mg/dL (7-23) Creatinine 4.3 mg/dL (0.5-0.9) 5.2 mg/dL (0.5-0.9) Estimat Glomerular Filtration Rate mL/min (>60) mL/min (>60) Glucose Level 218 mg/dL (74-106) 129 mg/dL (74-106) Uric Acid 7.1 mg/dL (3.0-7.5) 9.8 mg/dL (3.0-7.5) Calcium Level 8.1 mg/dL (8.6-10.2) 8.4 mg/dL (8.6-10.2) Phosphorus Level 4.0 mg/dL (2.5-4.8) 5.4 mg/dL (2.5-4.8) Magnesium Level 1.8 mg/dL (1.7-2.5) 2.1 mg/dL (1.7-2.5) Total Bilirubin 0.9 mg/dL (0.0-1.2) 0.7 mg/dL (0.0-1.2) Gamma Glutamyl Transpeptidase 45 U/L (5-36) Aspartate Amino Transf (AST/SGOT) 19 U/L (5-40) 23 U/L (5-40) Alanine Aminotransferase (ALT/SGPT) 15 U/L (3-33) 11 U/L (3-33) Alkaline Phosphatase 264 U/L (35-104) 237 U/L (35-104) C-Reactive Protein, Quantitative 18.5 mg/dL (< 0.5) 9.4 mg/dL (< 0.5) Pro-B-Type Natriuretic Peptide 92450 pg/mL (0-450) 59859 pg/mL (0-450) Total Protein 4.5 g/dL (6.6-8.7) 4.3 g/dL (6.6-8.7) Albumin 1.8 g/dL (3.5-5.2) 1.8 g/dL (3.5-5.2) Globulin 2.7 g/dL 2.5 g/dL Albumin/Globulin Ratio 0.6 (1.0-2.7) 0.7 (1.0-2.7) Test 02/14/17 06:10 02/15/17 04:00 White Blood Count 17.9 K/UL (4.8-10.8) 15.8 K/UL (4.8-10.8) Red Blood Count 2.32 M/UL (4.20-5.40) 3.32 M/UL (4.20-5.40) Hemoglobin 6.9 G/DL (12.0-16.0) 10.2 G/DL (12.0-16.0) Hematocrit 20.8 % (37.0-47.0) 30.1 % (37.0-47.0) Mean Corpuscular Volume 90 FL (80-99) 91 FL (80-99) Mean Corpuscular Hemoglobin 29.8 PG (27.0-31.0) 30.6 PG (27.0-31.0) Mean Corpuscular Hemoglobin Concent 33.3 G/DL (32.0-36.0) 33.8 G/DL (32.0-36.0) Red Cell Distribution Width 16.4 % (11.6-14.8) 14.6 % (11.6-14.8) Platelet Count 26 K/UL (150-450) 21 K/UL (150-450) Mean Platelet Volume 10.6 FL (6.5-10.1) 10.4 FL (6.5-10.1) Neutrophils (%) (Auto) % (45.0-75.0) % (45.0-75.0) Lymphocytes (%) (Auto) % (20.0-45.0) % (20.0-45.0) Monocytes (%) (Auto) % (1.0-10.0) % (1.0-10.0) Eosinophils (%) (Auto) % (0.0-3.0) % (0.0-3.0) Basophils (%) (Auto) % (0.0-2.0) % (0.0-2.0) Differential Total Cells Counted 100 100 Neutrophils % (Manual) 90 % (45-75) 96 % (45-75) Lymphocytes % (Manual) 7 % (20-45) 1 % (20-45) Monocytes % (Manual) 3 % (1-10) 3 % (1-10) Eosinophils % (Manual) 0 % (0-3) 0 % (0-3) Basophils % (Manual) 0 % (0-2) 0 % (0-2) Band Neutrophils 0 % (0-8) 0 % (0-8) Nucleated Red Blood Cells 2 /100 WBC Platelet Estimate Decreased Decreased Platelet Morphology Normal Normal Polychromasia 1+ 1+ Hypochromasia 1+ 1+ Anisocytosis 1+ 1+ Spherocytes 1+ Sodium Level 136 mEQ/L (135-145) Potassium Level 4.0 mEQ/L (3.4-4.9) Chloride Level 91 mEQ/L (98-107) Carbon Dioxide Level 25 mEQ/L (20-30) Anion Gap 20 (5-15) Blood Urea Nitrogen 92 mg/dL (7-23) Creatinine 4.5 mg/dL (0.5-0.9) Estimat Glomerular Filtration Rate mL/min (>60) Glucose Level 201 mg/dL (74-106) Calcium Level 8.3 mg/dL (8.6-10.2) Phosphorus Level 6.0 mg/dL (2.5-4.8) Total Bilirubin 0.7 mg/dL (0.0-1.2) Aspartate Amino Transf (AST/SGOT) 35 U/L (5-40) Alanine Aminotransferase (ALT/SGPT) 13 U/L (3-33) Alkaline Phosphatase 304 U/L (35-104) Pro-B-Type Natriuretic Peptide 94473 pg/mL (0-450) Total Protein 4.2 g/dL (6.6-8.7) Albumin 2.0 g/dL (3.5-5.2) Globulin 2.2 g/dL Albumin/Globulin Ratio 0.9 (1.0-2.7) Random Vancomycin Level 4.3 ug/mL Objective: WDWN chronically ill appearing; on the ventilator NAD coarse breath sounds bilaterally with reduced rhonchi but no wheeze orally intubated S1S2 IRRR without MRG; rate controlled NABS nontender no HSM; feeding tube in place; no distention no CC; some edema overall same nonfocal but arouseable remains poorly responsive skin noted and examined pupils sluggish Accucheck: 200 FELIPE PATHAK Feb 15, 2017 10:41
[2017-02-15] MEDS: Meropenem 500 MG in NS 55 ML IVPB SCH (13:24)
--- NOTE | 2017-02-15 14:32 | General Progress Note ---
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 bilateral right greater than left pleural effusions and mediastinal lymphadenopathy - she is a poor candidate for biopsy and has a poor prognosis # Anemia 2/2 chronic disease - s/p multiple units of blood # Leukocytosis - related to sepsis and underlying infection, is on antibiotics and counts decreasing # Respiratory failure s/p intubation # Respiratory acidosis # Renal failure # ALOC # Sepsis Recs: - Considering terminal extubation, comfort care as per primary - Transfuse to hgb goal >7, plt goal >20k if bleeding --> conservative management - Give PRBC during HD due to hgb<7 - She is off heparin, plavix, aspirin - Agree to administer FFP if INR >2 - Does not require a biopsy as has poor prognosis and poor outcome at this time - OG feeds at maximal rate - Appreciate consultation! continue to follow Subjective ROS Limited/Unobtainable: Yes Constitutional: Reports: no symptoms HEENT: Reports: no symptoms Cardiovascular: Reports: no symptoms Respiratory: Reports: other - on a vent Gastrointestinal/Abdominal: Reports: no symptoms, other - OG tube 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: Reports: no symptoms Endocrine: Reports: no symptoms Hematologic/Lymphatic: Reports: other - low plt Allergies: Coded Allergies: MORPHINE (Verified Adverse Reaction, Severe, PARADOXICAL REACTION, 10/08/12 ) Subjective Hgb count improving, considering terminal extubation, remains critically ill, dnr Objective Last 24 Hour Vital Signs Date Time Temp Pulse Resp B/P Pulse Ox O2 Delivery O2 Flow Rate FiO2 02/15/17 14:00 67 22 104/33 98 Mechanical Ventilator 60 02/15/17 13:00 71 22 115/68 97 Mechanical Ventilator 60 02/15/17 12:43 72 33 70 02/15/17 12:00 60 02/15/17 12:00 71 02/15/17 12:00 97.5 71 31 128/49 98 Mechanical Ventilator 60 02/15/17 11:00 67 21 105/44 97 Mechanical Ventilator 60 02/15/17 10:49 67 36 70 02/15/17 10:00 71 24 117/40 99 Mechanical Ventilator 60 02/15/17 09:00 73 22 133/45 98 Mechanical Ventilator 60 02/15/17 08:56 74 30 70 02/15/17 08:00 74 02/15/17 08:00 97.6 73 31 126/50 98 Mechanical Ventilator 60 02/15/17 08:00 60 02/15/17 07:00 75 21 129/49 99 Mechanical Ventilator 60 02/15/17 06:54 68 33 70 02/15/17 06:00 70 27 107/40 100 Mechanical Ventilator 60 02/15/17 05:21 78 28 70 02/15/17 05:00 83 24 118/42 100 Mechanical Ventilator 60 02/15/17 04:00 74 02/15/17 04:00 60 02/15/17 04:00 97.9 74 26 128/49 100 Mechanical Ventilator 60 02/15/17 03:00 75 28 129/53 100 Mechanical Ventilator 60 02/15/17 02:51 74 28 70 02/15/17 02:00 71 25 102/31 100 Mechanical Ventilator 60 02/15/17 01:00 73 24 118/38 100 Mechanical Ventilator 60 02/15/17 00:46 81 30 70 02/15/17 00:00 98.2 78 29 115/43 100 Mechanical Ventilator 60 02/15/17 00:00 78 02/15/17 00:00 60 02/14/17 23:47 120/39 02/14/17 23:00 78 28 113/36 100 Mechanical Ventilator 60 02/14/17 22:46 74 32 70 02/14/17 22:00 73 29 91/32 98 Mechanical Ventilator 60 02/14/17 21:00 75 27 102/38 97 Mechanical Ventilator 60 02/14/17 20:57 75 32 70 02/14/17 20:00 60 02/14/17 20:00 74 02/14/17 20:00 97.6 80 25 107/49 98 Mechanical Ventilator 60 02/14/17 19:30 82 29 102/47 99 Mechanical Ventilator 60 02/14/17 19:02 76 33 70 02/14/17 19:00 83 25 87/28 97 Mechanical Ventilator 60 02/14/17 18:41 Mechanical Ventilator 15.0 60 02/14/17 18:00 82 21 104/50 96 Mechanical Ventilator 60 02/14/17 17:05 76 30 60 02/14/17 17:00 88 25 99/32 95 Mechanical Ventilator 60 02/14/17 16:00 60 02/14/17 16:00 67 02/14/17 16:00 97.4 69 26 113/51 98 Mechanical Ventilator 60 02/14/17 15:05 64 31 60 02/14/17 15:00 66 24 125/40 96 Mechanical Ventilator 60 02/14/17 14:40 Mechanical Ventilator 15.0 60 Intake and Output 02/14/17 02/15/17 19:00 07:00 Intake Total 805 ml 355 ml Output Total 1777 ml 0 ml Balance -972 ml 355 ml Free Water 50 ml 20 ml IV Total 55 ml Tube Feeding 100 ml 335 ml Blood Product 600 ml Output Urine Total 0 ml 0 ml Hemodialysis UF 1777 ml # Bowel Movements 3 1 Laboratory Tests 02/15/17 04:00: White Blood Count 15.8H, Red Blood Count 3.32L, Hemoglobin 10.2#L, Hematocrit 30.1#L, Mean Corpuscular Volume 91, Mean Corpuscular Hemoglobin 30.6, Mean Corpuscular Hemoglobin Concent 33.8, Red Cell Distribution Width 14.6, Platelet Count 21L, Mean Platelet Volume 10.4H, Neutrophils (%) (Auto) , Lymphocytes (%) (Auto) , Monocytes (%) (Auto) , Eosinophils (%) (Auto) , Basophils (%) (Auto) , Differential Total Cells Counted 100, Neutrophils % (Manual) 96H, Lymphocytes % (Manual) 1L, Monocytes % (Manual) 3, Eosinophils % (Manual) 0, Basophils % ( Manual) 0, Band Neutrophils 0, Platelet Estimate DecreasedL, Platelet Morphology Normal, Polychromasia 1+, Hypochromasia 1+, Anisocytosis 1+, Spherocytes 1+, Sodium Level 136, Potassium Level 4.0, Chloride Level 91L, Carbon Dioxide Level 25, Anion Gap 20H, Blood Urea Nitrogen 92H, Creatinine 4.5H , Estimat Glomerular Filtration Rate , Glucose Level 201H, Calcium Level 8.3L, Phosphorus Level 6.0H, Total Bilirubin 0.7, Aspartate Amino Transf (AST/SGOT) 35 , Alanine Aminotransferase (ALT/SGPT) 13, Alkaline Phosphatase 304H, Pro-B-Type Natriuretic Peptide 27976V, Total Protein 4.2L, Albumin 2.0L, Globulin 2.2, Albumin/Globulin Ratio 0.9L, Random Vancomycin Level 4.3 Height (Feet): 5 Height (Inches): 1.00 Weight (Pounds): 200 General Appearance: no apparent distress EENT: PERRL/EOMI Neck: non-tender Cardiovascular: normal peripheral pulses Respiratory/Chest: chest wall non-tender Abdomen: normal bowel sounds Edema: no edema noted Leg (L), no edema noted Leg (R), no edema noted Pedal (L) , no edema noted Pedal (R) Edema: mild edema - mild edema of hands Neurologic: responsive - responds to touch Skin: warm/dry Mariano Ortiz Feb 15, 2017 14:32
--- NOTE | 2017-02-15 15:00 | General Progress Note ---
Assessment/Plan Status: stable Status Narrative clinically improved Assessment/Plan Has acute respiratory distress- intubated in ICU Septic shock ( Had long talk with daughter Gali 01/19 ) - Acute renal failure and hyperKalemia - Renal failure, likely diabetic nephropathy / HTN - Sepsis , Pneumonia, Respiratory failure and Hypoxia other - h/o Cellulitis in diabetic foot right LE - Decubitus ulcer - Dementia - Diabetes mellitus - Nonpressure ulcer to level of fascia right lateral ankle - S/P ORIF right ankle Plan: intubate - ICU On hydrocortisone Had permacath 01/30 Adjust BP meds- Clonidin PRN HD last 02/15 Transfuse during HD today monitor WBCs Phos supplement as needed Monitor renal parameters and Vanco level- ARTUR Kidney done last admission- unremarkable Adjust BP meds- Avoid Nephrotoxics- discussed with CM Per orders Subjective ROS Limited/Unobtainable: Yes Allergies: Coded Allergies: MORPHINE (Verified Adverse Reaction, Severe, PARADOXICAL REACTION, 10/08/12 ) Objective Last 24 Hour Vital Signs Date Time Temp Pulse Resp B/P Pulse Ox O2 Delivery O2 Flow Rate FiO2 02/15/17 14:00 67 22 104/33 98 Mechanical Ventilator 60 02/15/17 13:00 71 22 115/68 97 Mechanical Ventilator 60 02/15/17 12:43 72 33 70 02/15/17 12:00 60 02/15/17 12:00 71 02/15/17 12:00 97.5 71 31 128/49 98 Mechanical Ventilator 60 02/15/17 11:00 67 21 105/44 97 Mechanical Ventilator 60 02/15/17 10:49 67 36 70 02/15/17 10:00 71 24 117/40 99 Mechanical Ventilator 60 02/15/17 09:00 73 22 133/45 98 Mechanical Ventilator 60 02/15/17 08:56 74 30 70 02/15/17 08:00 74 02/15/17 08:00 97.6 73 31 126/50 98 Mechanical Ventilator 60 02/15/17 08:00 60 02/15/17 07:00 75 21 129/49 99 Mechanical Ventilator 60 02/15/17 06:54 68 33 70 02/15/17 06:00 70 27 107/40 100 Mechanical Ventilator 60 02/15/17 05:21 78 28 70 02/15/17 05:00 83 24 118/42 100 Mechanical Ventilator 60 02/15/17 04:00 74 02/15/17 04:00 60 02/15/17 04:00 97.9 74 26 128/49 100 Mechanical Ventilator 60 02/15/17 03:00 75 28 129/53 100 Mechanical Ventilator 60 02/15/17 02:51 74 28 70 02/15/17 02:00 71 25 102/31 100 Mechanical Ventilator 60 02/15/17 01:00 73 24 118/38 100 Mechanical Ventilator 60 02/15/17 00:46 81 30 70 02/15/17 00:00 98.2 78 29 115/43 100 Mechanical Ventilator 60 02/15/17 00:00 78 02/15/17 00:00 60 02/14/17 23:47 120/39 02/14/17 23:00 78 28 113/36 100 Mechanical Ventilator 60 02/14/17 22:46 74 32 70 02/14/17 22:00 73 29 91/32 98 Mechanical Ventilator 60 02/14/17 21:00 75 27 102/38 97 Mechanical Ventilator 60 02/14/17 20:57 75 32 70 02/14/17 20:00 60 02/14/17 20:00 74 02/14/17 20:00 97.6 80 25 107/49 98 Mechanical Ventilator 60 02/14/17 19:30 82 29 102/47 99 Mechanical Ventilator 60 02/14/17 19:02 76 33 70 02/14/17 19:00 83 25 87/28 97 Mechanical Ventilator 60 02/14/17 18:41 Mechanical Ventilator 15.0 60 02/14/17 18:00 82 21 104/50 96 Mechanical Ventilator 60 02/14/17 17:05 76 30 60 02/14/17 17:00 88 25 99/32 95 Mechanical Ventilator 60 02/14/17 16:00 60 02/14/17 16:00 67 02/14/17 16:00 97.4 69 26 113/51 98 Mechanical Ventilator 60 02/14/17 15:05 64 31 60 02/14/17 15:00 66 24 125/40 96 Mechanical Ventilator 60 Intake and Output 02/14/17 02/15/17 19:00 07:00 Intake Total 805 ml 355 ml Output Total 1777 ml 0 ml Balance -972 ml 355 ml Free Water 50 ml 20 ml IV Total 55 ml Tube Feeding 100 ml 335 ml Blood Product 600 ml Output Urine Total 0 ml 0 ml Hemodialysis UF 1777 ml # Bowel Movements 3 1 Laboratory Tests 02/15/17 04:00: White Blood Count 15.8H, Red Blood Count 3.32L, Hemoglobin 10.2#L, Hematocrit 30.1#L, Mean Corpuscular Volume 91, Mean Corpuscular Hemoglobin 30.6, Mean Corpuscular Hemoglobin Concent 33.8, Red Cell Distribution Width 14.6, Platelet Count 21L, Mean Platelet Volume 10.4H, Neutrophils (%) (Auto) , Lymphocytes (%) (Auto) , Monocytes (%) (Auto) , Eosinophils (%) (Auto) , Basophils (%) (Auto) , Differential Total Cells Counted 100, Neutrophils % (Manual) 96H, Lymphocytes % (Manual) 1L, Monocytes % (Manual) 3, Eosinophils % (Manual) 0, Basophils % ( Manual) 0, Band Neutrophils 0, Platelet Estimate DecreasedL, Platelet Morphology Normal, Polychromasia 1+, Hypochromasia 1+, Anisocytosis 1+, Spherocytes 1+, Sodium Level 136, Potassium Level 4.0, Chloride Level 91L, Carbon Dioxide Level 25, Anion Gap 20H, Blood Urea Nitrogen 92H, Creatinine 4.5H , Estimat Glomerular Filtration Rate , Glucose Level 201H, Calcium Level 8.3L, Phosphorus Level 6.0H, Total Bilirubin 0.7, Aspartate Amino Transf (AST/SGOT) 35 , Alanine Aminotransferase (ALT/SGPT) 13, Alkaline Phosphatase 304H, Pro-B-Type Natriuretic Peptide 81214F, Total Protein 4.2L, Albumin 2.0L, Globulin 2.2, Albumin/Globulin Ratio 0.9L, Random Vancomycin Level 4.3 Height (Feet): 5 Height (Inches): 1.00 Weight (Pounds): 200 General Appearance: no apparent distress Cardiovascular: normal rate Respiratory/Chest: decreased breath sounds Abdomen: soft Objective other PE not changed BERTRAM CASTAÑEDA Feb 15, 2017 15:00
--- NOTE | 2017-02-15 16:06 | Cardiology Progress Note ---
Assessment/Plan Problem List: (1) Acute on chronic renal failure (2) Pneumonia (3) Sepsis (4) Hyperkalemia (5) Dementia (6) Diabetes mellitus Status: stable, unchanged Status Narrative Pt w respiratory failure , pneumonia/sepsis. She remains off pressors, w/ SBP 90-100 Renal failure - s/p dialysis yesterday PAF - maintaining SR. Assessment/Plan Continue supportive care, vent, TF, antibiotics per ID. Dialysis w/ fluid removal per nephrology. Followup labs, CXR If AF recurs, will start oral ( NGT ) amiodarone Subjective ROS Limited/Unobtainable: Yes Subjective Cardiology for Dr. Rush Intubated/ not responsive Events noted. Objective Last 24 Hour Vital Signs Date Time Temp Pulse Resp B/P Pulse Ox O2 Delivery O2 Flow Rate FiO2 02/15/17 15:00 68 22 97/42 98 Mechanical Ventilator 60 02/15/17 14:43 65 38 70 02/15/17 14:00 67 22 104/33 98 Mechanical Ventilator 60 02/15/17 13:00 71 22 115/68 97 Mechanical Ventilator 60 02/15/17 12:43 72 33 70 02/15/17 12:00 60 02/15/17 12:00 71 02/15/17 12:00 97.5 71 31 128/49 98 Mechanical Ventilator 60 02/15/17 11:00 67 21 105/44 97 Mechanical Ventilator 60 02/15/17 10:49 67 36 70 02/15/17 10:00 71 24 117/40 99 Mechanical Ventilator 60 02/15/17 09:00 73 22 133/45 98 Mechanical Ventilator 60 02/15/17 08:56 74 30 70 02/15/17 08:00 74 02/15/17 08:00 97.6 73 31 126/50 98 Mechanical Ventilator 60 02/15/17 08:00 60 02/15/17 07:00 75 21 129/49 99 Mechanical Ventilator 60 02/15/17 06:54 68 33 70 02/15/17 06:00 70 27 107/40 100 Mechanical Ventilator 60 02/15/17 05:21 78 28 70 02/15/17 05:00 83 24 118/42 100 Mechanical Ventilator 60 02/15/17 04:00 74 02/15/17 04:00 60 02/15/17 04:00 97.9 74 26 128/49 100 Mechanical Ventilator 60 02/15/17 03:00 75 28 129/53 100 Mechanical Ventilator 60 02/15/17 02:51 74 28 70 02/15/17 02:00 71 25 102/31 100 Mechanical Ventilator 60 02/15/17 01:00 73 24 118/38 100 Mechanical Ventilator 60 02/15/17 00:46 81 30 70 02/15/17 00:00 98.2 78 29 115/43 100 Mechanical Ventilator 60 02/15/17 00:00 78 02/15/17 00:00 60 02/14/17 23:47 120/39 02/14/17 23:00 78 28 113/36 100 Mechanical Ventilator 60 02/14/17 22:46 74 32 70 02/14/17 22:00 73 29 91/32 98 Mechanical Ventilator 60 02/14/17 21:00 75 27 102/38 97 Mechanical Ventilator 60 02/14/17 20:57 75 32 70 02/14/17 20:00 60 02/14/17 20:00 74 02/14/17 20:00 97.6 80 25 107/49 98 Mechanical Ventilator 60 02/14/17 19:30 82 29 102/47 99 Mechanical Ventilator 60 02/14/17 19:02 76 33 70 02/14/17 19:00 83 25 87/28 97 Mechanical Ventilator 60 02/14/17 18:41 Mechanical Ventilator 15.0 60 02/14/17 18:00 82 21 104/50 96 Mechanical Ventilator 60 02/14/17 17:05 76 30 60 02/14/17 17:00 88 25 99/32 95 Mechanical Ventilator 60 General Appearance: lethargic, on vent EENT: other - et og tubes Neck: other - tunnelled R ij catheter Rhythm: NSR Cardiovascular: normal rate, regular rhythm, no gallop/murmur Respiratory/Chest: lungs clear - clear anteriorly Abdomen: non tender, soft Extremities: other - bilat edema of hands Intake and Output 02/14/17 02/15/17 19:00 07:00 Intake Total 805 ml 355 ml Output Total 1777 ml 0 ml Balance -972 ml 355 ml Free Water 50 ml 20 ml IV Total 55 ml Tube Feeding 100 ml 335 ml Blood Product 600 ml Output Urine Total 0 ml 0 ml Hemodialysis UF 1777 ml # Bowel Movements 3 1 Laboratory Tests Test 02/15/17 04:00 White Blood Count 15.8 K/UL (4.8-10.8) H Red Blood Count 3.32 M/UL (4.20-5.40) L Hemoglobin 10.2 G/DL (12.0-16.0) #L Hematocrit 30.1 % (37.0-47.0) #L Mean Corpuscular Volume 91 FL (80-99) Mean Corpuscular Hemoglobin 30.6 PG (27.0-31.0) Mean Corpuscular Hemoglobin Concent 33.8 G/DL (32.0-36.0) Red Cell Distribution Width 14.6 % (11.6-14.8) Platelet Count 21 K/UL (150-450) L Mean Platelet Volume 10.4 FL (6.5-10.1) H Neutrophils (%) (Auto) % (45.0-75.0) Lymphocytes (%) (Auto) % (20.0-45.0) Monocytes (%) (Auto) % (1.0-10.0) Eosinophils (%) (Auto) % (0.0-3.0) Basophils (%) (Auto) % (0.0-2.0) Differential Total Cells Counted 100 Neutrophils % (Manual) 96 % (45-75) H Lymphocytes % (Manual) 1 % (20-45) L Monocytes % (Manual) 3 % (1-10) Eosinophils % (Manual) 0 % (0-3) Basophils % (Manual) 0 % (0-2) Band Neutrophils 0 % (0-8) Platelet Estimate Decreased L Platelet Morphology Normal Polychromasia 1+ Hypochromasia 1+ Anisocytosis 1+ Spherocytes 1+ Sodium Level 136 mEQ/L (135-145) Potassium Level 4.0 mEQ/L (3.4-4.9) Chloride Level 91 mEQ/L (98-107) L Carbon Dioxide Level 25 mEQ/L (20-30) Anion Gap 20 (5-15) H Blood Urea Nitrogen 92 mg/dL (7-23) H Creatinine 4.5 mg/dL (0.5-0.9) H Estimat Glomerular Filtration Rate mL/min (>60) Glucose Level 201 mg/dL (74-106) H Calcium Level 8.3 mg/dL (8.6-10.2) L Phosphorus Level 6.0 mg/dL (2.5-4.8) H Total Bilirubin 0.7 mg/dL (0.0-1.2) Aspartate Amino Transf (AST/SGOT) 35 U/L (5-40) Alanine Aminotransferase (ALT/SGPT) 13 U/L (3-33) Alkaline Phosphatase 304 U/L (35-104) H Pro-B-Type Natriuretic Peptide 29454 pg/mL (0-450) H Total Protein 4.2 g/dL (6.6-8.7) L Albumin 2.0 g/dL (3.5-5.2) L Globulin 2.2 g/dL Albumin/Globulin Ratio 0.9 (1.0-2.7) L Random Vancomycin Level 4.3 ug/mL Microbiology Date/Time Source Procedure Growth Status 02/14/17 19:00 Stool Clostridium difficile Toxin Assay - Final Complete WANDA SKELTON Feb 15, 2017 16:06
[2017-02-15] MEDS: DuoNeb 0.5-3(2.5)mg/3ml neb HHN PRN ×3 (19:13→23:02)
--- NOTE | 2017-02-15 23:08 | General Progress Note ---
Assessment/Plan Assessment/Plan Assessment - TF intolerance - DM - CAD - Resp failure - gastroparesis - leukocytosis - anemia - Azotemia - Elevated Alk Phos Recommendations - continue TF - monitor residuals - check C Diff --> neg Subjective Allergies: Coded Allergies: MORPHINE (Verified Adverse Reaction, Severe, PARADOXICAL REACTION, 10/08/12 ) Subjective Awake, intubated TF restarted tolerating well Objective Last 24 Hour Vital Signs Date Time Temp Pulse Resp B/P Pulse Ox O2 Delivery O2 Flow Rate FiO2 02/15/17 21:00 68 30 99 Mechanical Ventilator 60 02/15/17 21:00 70 24 114/49 99 Mechanical Ventilator 60 02/15/17 20:58 69 30 60 02/15/17 20:00 70 02/15/17 20:00 97.7 75 26 110/72 98 Mechanical Ventilator 60 02/15/17 20:00 60 02/15/17 19:30 66 25 98 Mechanical Ventilator 02/15/17 19:14 68 30 96 Mechanical Ventilator 60 02/15/17 19:00 75 22 119/52 95 Mechanical Ventilator 60 02/15/17 18:54 66 30 60 02/15/17 18:00 63 24 103/40 99 Mechanical Ventilator 60 02/15/17 17:00 66 23 109/39 100 Mechanical Ventilator 60 02/15/17 16:53 66 33 70 02/15/17 16:00 68 02/15/17 16:00 97.5 71 26 116/48 97 Mechanical Ventilator 60 02/15/17 16:00 60 02/15/17 15:00 68 22 97/42 98 Mechanical Ventilator 60 02/15/17 14:43 65 38 70 02/15/17 14:00 67 22 104/33 98 Mechanical Ventilator 60 02/15/17 13:00 71 22 115/68 97 Mechanical Ventilator 60 02/15/17 12:43 72 33 70 02/15/17 12:00 60 02/15/17 12:00 71 02/15/17 12:00 97.5 71 31 128/49 98 Mechanical Ventilator 60 02/15/17 11:00 67 21 105/44 97 Mechanical Ventilator 60 02/15/17 10:49 67 36 70 02/15/17 10:00 71 24 117/40 99 Mechanical Ventilator 60 02/15/17 09:00 73 22 133/45 98 Mechanical Ventilator 60 02/15/17 08:56 74 30 70 02/15/17 08:00 74 02/15/17 08:00 97.6 73 31 126/50 98 Mechanical Ventilator 60 02/15/17 08:00 60 02/15/17 07:00 75 21 129/49 99 Mechanical Ventilator 60 02/15/17 06:54 68 33 70 02/15/17 06:00 70 27 107/40 100 Mechanical Ventilator 60 02/15/17 05:21 78 28 70 02/15/17 05:00 83 24 118/42 100 Mechanical Ventilator 60 02/15/17 04:00 74 02/15/17 04:00 60 02/15/17 04:00 97.9 74 26 128/49 100 Mechanical Ventilator 60 02/15/17 03:00 75 28 129/53 100 Mechanical Ventilator 60 02/15/17 02:51 74 28 70 02/15/17 02:00 71 25 102/31 100 Mechanical Ventilator 60 02/15/17 01:00 73 24 118/38 100 Mechanical Ventilator 60 02/15/17 00:46 81 30 70 02/15/17 00:00 98.2 78 29 115/43 100 Mechanical Ventilator 60 02/15/17 00:00 78 02/15/17 00:00 60 02/14/17 23:47 120/39 Intake and Output 02/14/17 02/15/17 19:00 07:00 Intake Total 805 ml 355 ml Output Total 1777 ml 0 ml Balance -972 ml 355 ml Free Water 50 ml 20 ml IV Total 55 ml Tube Feeding 100 ml 335 ml Blood Product 600 ml Output Urine Total 0 ml 0 ml Hemodialysis UF 1777 ml # Bowel Movements 3 1 Laboratory Tests 02/15/17 04:00: White Blood Count 15.8H, Red Blood Count 3.32L, Hemoglobin 10.2#L, Hematocrit 30.1#L, Mean Corpuscular Volume 91, Mean Corpuscular Hemoglobin 30.6, Mean Corpuscular Hemoglobin Concent 33.8, Red Cell Distribution Width 14.6, Platelet Count 21L, Mean Platelet Volume 10.4H, Neutrophils (%) (Auto) , Lymphocytes (%) (Auto) , Monocytes (%) (Auto) , Eosinophils (%) (Auto) , Basophils (%) (Auto) , Differential Total Cells Counted 100, Neutrophils % (Manual) 96H, Lymphocytes % (Manual) 1L, Monocytes % (Manual) 3, Eosinophils % (Manual) 0, Basophils % ( Manual) 0, Band Neutrophils 0, Platelet Estimate DecreasedL, Platelet Morphology Normal, Polychromasia 1+, Hypochromasia 1+, Anisocytosis 1+, Spherocytes 1+, Sodium Level 136, Potassium Level 4.0, Chloride Level 91L, Carbon Dioxide Level 25, Anion Gap 20H, Blood Urea Nitrogen 92H, Creatinine 4.5H , Estimat Glomerular Filtration Rate , Glucose Level 201H, Calcium Level 8.3L, Phosphorus Level 6.0H, Total Bilirubin 0.7, Aspartate Amino Transf (AST/SGOT) 35 , Alanine Aminotransferase (ALT/SGPT) 13, Alkaline Phosphatase 304H, Pro-B-Type Natriuretic Peptide 48114W, Total Protein 4.2L, Albumin 2.0L, Globulin 2.2, Albumin/Globulin Ratio 0.9L, Random Vancomycin Level 4.3 Height (Feet): 5 Height (Inches): 1.00 Weight (Pounds): 200 Objective WDWN NCAT supple CTA RRR soft ND NT no edema ARLIN LONGORIA Feb 15, 2017 23:08
[2017-02-15] MEDS: Norepinephrine Bitartrate 8 MG in D5W 500ml 550 ML IV SCH (23:33)
[2017-02-16] VITALS (24 sets, daily range): BP systolic 91–153; BP diastolic 32–82
[2017-02-16] MEDS: DuoNeb 0.5-3(2.5)mg/3ml neb HHN PRN ×5 (01:06→14:59)
[2017-02-16] MEDS: Hydrocortisone 100mg Inj IV SCH ×3 (05:33→21:39)
[2017-02-16 05:36] LABS: MEAN CORPUSCULAR HEMOGLOBIN 30.7 PG (27.0-31.0); MEAN CORPUSCULAR HGB CONC 33.5 G/DL (32.0-36.0); MEAN CORPUSCULAR VOLUME 92 FL (80-99); MEAN PLATELET VOLUME 8.6 FL (6.5-10.1); PLATELET COUNT 42 K/UL (150-450); RED BLOOD COUNT 3.39 M/UL (4.20-5.40); RED CELL DISTRIBUTION WIDTH 15.5 % (11.6-14.8)
[2017-02-16] MEDS: NovoLOG Insulin Flexpen SUBQ SCH ×4 (05:36→23:51)
[2017-02-16 05:53] LABS: ALANINE AMINOTRANSFERASE 12 U/L (3-33); ALBUMIN/GLOBULIN RATIO 0.8 (1.0-2.7); ANION GAP 20 (5-15); ASPARTATE AMINO TRANSFERASE 21 U/L (5-40); CALCIUM 8.2 mg/dL (8.6-10.2); CARBON DIOXIDE 24 mEQ/L (20-30); CHLORIDE 94 mEQ/L (98-107); CREATININE 5.2 mg/dL (0.5-0.9); CRP QUANT 3.8 mg/dL (< 0.5); HEMOLYSIS 6; MAGNESIUM 2.2 mg/dL (1.7-2.5); PHOSPHORUS 6.7 mg/dL (2.5-4.8); POTASSIUM 4.2 mEQ/L (3.4-4.9); SODIUM 138 mEQ/L (135-145); TOTAL PROTEIN 4.5 g/dL (6.6-8.7); URIC ACID 10.9 mg/dL (3.0-7.5)
[2017-02-16] MEDS: Analgesic Balm 15gm TOPIC SCH ×4 (08:11→22:05)
[2017-02-16] MEDS: Pantoprazole Inj IVP SCH ×2 (08:11→21:25)
--- NOTE | 2017-02-16 09:03 | Critical Care Progress Note ---
Assessment/Plan Assessment/Plan hypoxemia respiratory failure respiratory acidosis pulmonary infiltrates thrombocytopenia renal failure ALOC chronic encephalopathy septic shock leukocytosis pulmonary infiltrates ARDS DIC likely s/p transfusion atrial fibrillation hypotension PLAN off heparin, plavix, aspirin platelets better follow up labs afib controlled levophed off monitor renal function; on HD per renal antibiotics noted taper fio2; as able; saturation better follow up ABG prognosis remains poor; wbc improvement family encouraged of improvement and would want to hold on terminal extubation will start to wean medications/laboratory data/nursing notes/ICU care reviewed in detail note reviewed and edited care discussed with RN and RT ICU time spent 37 minutes Critical Care - Subjective Interval Events: improved oxygenation better feeds on off pressors more alert Condition: improving EKG Rhythm: Sinus Rhythm I&O: Intake and Output 02/15/17 02/16/17 19:00 07:00 Intake Total 505 ml 455 ml Output Total 0 ml Balance 505 ml 455 ml Free Water 30 ml 70 ml IV Total 55 ml Tube Feeding 420 ml 385 ml Output Urine Total 0 ml # Bowel Movements 5 3 Critical Care - Objective ET-Tube: 7.0 ET Position: 22 Last 24 Hour Vital Signs Date Time Temp Pulse Resp B/P Pulse Ox O2 Delivery O2 Flow Rate FiO2 02/16/17 08:56 76 33 60 02/16/17 08:00 97.8 85 20 91/46 99 Mechanical Ventilator 60 02/16/17 08:00 71 02/16/17 08:00 60 02/16/17 07:20 89 29 100 Mechanical Ventilator 02/16/17 07:18 80 34 60 02/16/17 07:10 82 34 100 Mechanical Ventilator 60 02/16/17 07:00 77 21 125/49 99 Mechanical Ventilator 60 02/16/17 06:00 71 22 104/32 99 Mechanical Ventilator 60 02/16/17 05:23 72 26 100 Mechanical Ventilator 02/16/17 05:22 74 33 60 02/16/17 05:13 76 33 100 Mechanical Ventilator 60 02/16/17 05:00 98.0 77 22 128/70 99 Mechanical Ventilator 60 02/16/17 04:00 72 02/16/17 04:00 60 02/16/17 04:00 72 23 115/82 100 Mechanical Ventilator 60 02/16/17 03:00 65 23 101/58 100 Mechanical Ventilator 60 02/16/17 02:52 65 23 60 02/16/17 02:00 65 26 92/36 100 Mechanical Ventilator 60 02/16/17 01:28 66 28 98 Mechanical Ventilator 02/16/17 01:07 71 32 99 Mechanical Ventilator 60 02/16/17 01:05 68 32 60 02/16/17 01:00 71 26 121/48 100 Mechanical Ventilator 60 02/16/17 00:00 72 02/16/17 00:00 60 02/16/17 00:00 98.2 64 23 122/46 98 Mechanical Ventilator 60 02/15/17 23:33 94/38 02/15/17 23:19 64 29 98 Mechanical Ventilator 02/15/17 23:03 64 34 99 Mechanical Ventilator 60 02/15/17 23:02 64 34 60 02/15/17 23:00 64 23 94/38 99 Mechanical Ventilator 60 02/15/17 22:00 69 23 98/26 100 Mechanical Ventilator 60 02/15/17 21:15 65 28 99 Mechanical Ventilator 02/15/17 21:00 68 30 99 Mechanical Ventilator 60 02/15/17 21:00 70 24 114/49 99 Mechanical Ventilator 60 02/15/17 20:58 69 30 60 02/15/17 20:00 70 02/15/17 20:00 97.7 75 26 110/72 98 Mechanical Ventilator 60 02/15/17 20:00 60 02/15/17 19:30 66 25 98 Mechanical Ventilator 02/15/17 19:14 68 30 96 Mechanical Ventilator 60 02/15/17 19:00 75 22 119/52 95 Mechanical Ventilator 60 02/15/17 18:54 66 30 60 02/15/17 18:00 63 24 103/40 99 Mechanical Ventilator 60 02/15/17 17:00 66 23 109/39 100 Mechanical Ventilator 60 02/15/17 16:53 66 33 70 02/15/17 16:00 68 02/15/17 16:00 97.5 71 26 116/48 97 Mechanical Ventilator 60 02/15/17 16:00 60 02/15/17 15:00 68 22 97/42 98 Mechanical Ventilator 60 02/15/17 14:43 65 38 70 02/15/17 14:00 67 22 104/33 98 Mechanical Ventilator 60 02/15/17 13:00 71 22 115/68 97 Mechanical Ventilator 60 02/15/17 12:43 72 33 70 02/15/17 12:00 60 02/15/17 12:00 71 02/15/17 12:00 97.5 71 31 128/49 98 Mechanical Ventilator 60 02/15/17 11:00 67 21 105/44 97 Mechanical Ventilator 60 02/15/17 10:49 67 36 70 02/15/17 10:00 71 24 117/40 99 Mechanical Ventilator 60 Labs: Labs Test 02/14/17 04:30 02/14/17 06:10 02/15/17 04:00 02/16/17 05:00 White Blood Count 17.9 K/UL (4.8-10.8) 17.9 K/UL (4.8-10.8) 15.8 K/UL (4.8-10.8) 15.0 K/UL (4.8-10.8) Red Blood Count 2.29 M/UL (4.20-5.40) 2.32 M/UL (4.20-5.40) 3.32 M/UL (4.20-5.40) 3.39 M/UL (4.20-5.40) Hemoglobin 6.8 G/DL (12.0-16.0) 6.9 G/DL (12.0-16.0) 10.2 G/DL (12.0-16.0) 10.4 G/DL (12.0-16.0) Hematocrit 20.9 % (37.0-47.0) 20.8 % (37.0-47.0) 30.1 % (37.0-47.0) 31.1 % (37.0-47.0) Mean Corpuscular Volume 91 FL (80-99) 90 FL (80-99) 91 FL (80-99) 92 FL (80- 99) Mean Corpuscular Hemoglobin 29.8 PG (27.0-31.0) 29.8 PG (27.0-31.0) 30.6 PG (27.0-31.0) 30.7 PG (27.0-31.0) Mean Corpuscular Hemoglobin Concent 32.6 G/DL (32.0-36.0) 33.3 G/DL (32.0-36.0) 33.8 G/DL (32.0-36.0) 33.5 G/DL (32.0-36.0) Red Cell Distribution Width 16.9 % (11.6-14.8) 16.4 % (11.6-14.8) 14.6 % (11.6-14.8) 15.5 % (11.6-14.8) Platelet Count 23 K/UL (150-450) 26 K/UL (150-450) 21 K/UL (150-450) 42 K/UL (150-450) Mean Platelet Volume 10.6 FL (6.5-10.1) 10.6 FL (6.5-10.1) 10.4 FL (6.5-10.1) 8.6 FL (6.5-10.1) Neutrophils (%) (Auto) % (45.0-75.0) % (45.0-75.0) % (45.0-75.0) % (45.0- 75.0) Lymphocytes (%) (Auto) % (20.0-45.0) % (20.0-45.0) % (20.0-45.0) % (20.0- 45.0) Monocytes (%) (Auto) % (1.0-10.0) % (1.0-10.0) % (1.0-10.0) % (1.0-10.0) Eosinophils (%) (Auto) % (0.0-3.0) % (0.0-3.0) % (0.0-3.0) % (0.0-3.0) Basophils (%) (Auto) % (0.0-2.0) % (0.0-2.0) % (0.0-2.0) % (0.0-2.0) Differential Total Cells Counted 100 100 100 Neutrophils % (Manual) 88 % (45-75) 90 % (45-75) 96 % (45-75) Lymphocytes % (Manual) 9 % (20-45) 7 % (20-45) 1 % (20-45) Monocytes % (Manual) 3 % (1-10) 3 % (1-10) 3 % (1-10) Eosinophils % (Manual) 0 % (0-3) 0 % (0-3) 0 % (0-3) Basophils % (Manual) 0 % (0-2) 0 % (0-2) 0 % (0-2) Band Neutrophils 0 % (0-8) 0 % (0-8) 0 % (0-8) Platelet Estimate Decreased Decreased Decreased Platelet Morphology Normal Normal Normal Polychromasia Occasional 1+ 1+ Hypochromasia 1+ 1+ 1+ Anisocytosis 1+ 1+ 1+ Sodium Level 137 mEQ/L (135-145) 136 mEQ/L (135-145) 138 mEQ/L (135-145) Potassium Level 4.4 mEQ/L (3.4-4.9) 4.0 mEQ/L (3.4-4.9) 4.2 mEQ/L (3.4-4.9) Chloride Level 95 mEQ/L (98-107) 91 mEQ/L (98-107) 94 mEQ/L (98-107) Carbon Dioxide Level 22 mEQ/L (20-30) 25 mEQ/L (20-30) 24 mEQ/L (20-30) Anion Gap 20 (5-15) 20 (5-15) 20 (5-15) Blood Urea Nitrogen 102 mg/dL (7-23) 92 mg/dL (7-23) 122 mg/dL (7-23) Creatinine 5.2 mg/dL (0.5-0.9) 4.5 mg/dL (0.5-0.9) 5.2 mg/dL (0.5-0.9) Estimat Glomerular Filtration Rate mL/min (>60) mL/min (>60) mL/min (>60) Glucose Level 129 mg/dL (74-106) 201 mg/dL (74-106) 229 mg/dL (74-106) Uric Acid 9.8 mg/dL (3.0-7.5) 10.9 mg/dL (3.0-7.5) Calcium Level 8.4 mg/dL (8.6-10.2) 8.3 mg/dL (8.6-10.2) 8.2 mg/dL (8.6-10.2) Phosphorus Level 5.4 mg/dL (2.5-4.8) 6.0 mg/dL (2.5-4.8) 6.7 mg/dL (2.5-4.8) Magnesium Level 2.1 mg/dL (1.7-2.5) 2.2 mg/dL (1.7-2.5) Total Bilirubin 0.7 mg/dL (0.0-1.2) 0.7 mg/dL (0.0-1.2) 0.6 mg/dL (0.0-1.2) Aspartate Amino Transf (AST/SGOT) 23 U/L (5-40) 35 U/L (5-40) 21 U/L (5-40) Alanine Aminotransferase (ALT/SGPT) 11 U/L (3-33) 13 U/L (3-33) 12 U/L (3-33) Alkaline Phosphatase 237 U/L (35-104) 304 U/L (35-104) 288 U/L (35-104) C-Reactive Protein, Quantitative 9.4 mg/dL (< 0.5) 3.8 mg/dL (< 0.5) Pro-B-Type Natriuretic Peptide 58408 pg/mL (0-450) 26662 pg/mL (0-450) 68144 pg/mL (0-450) Total Protein 4.3 g/dL (6.6-8.7) 4.2 g/dL (6.6-8.7) 4.5 g/dL (6.6-8.7) Albumin 1.8 g/dL (3.5-5.2) 2.0 g/dL (3.5-5.2) 2.1 g/dL (3.5-5.2) Globulin 2.5 g/dL 2.2 g/dL 2.4 g/dL Albumin/Globulin Ratio 0.7 (1.0-2.7) 0.9 (1.0-2.7) 0.8 (1.0-2.7) Nucleated Red Blood Cells 2 /100 WBC Spherocytes 1+ Random Vancomycin Level 4.3 ug/mL Objective: WDWN chronically ill appearing; on the ventilator NAD coarse breath sounds bilaterally with reduced rhonchi but no wheeze orally intubated S1S2 RRR without MRG; rate controlled NABS nontender no HSM; feeding tube in place; no distention no CC; some edema but slightly improved nonfocal but arouseable remains poorly responsive skin noted and examined pupils sluggish Micro: Microbiology Date/Time Source Procedure Growth Status 02/14/17 19:00 Stool Clostridium difficile Toxin Assay - Final Complete Accucheck: 230 FELIPE PATHAK Feb 16, 2017 09:03
[2017-02-16 09:37] LABS: ANISOCYTOSIS 1+; BAND NEUTROPHILS % (MANUAL) 0 % (0-8); BASOPHILS % (MANUAL) 0 % (0-2); EOSINOPHILS % (MANUAL) 0 % (0-3); HYPOCHROMASIA 1+; LYMPHOCYTES % (MANUAL) 3 % (20-45); NEUTROPHILS % (MANUAL) 94 % (45-75); PLATELET ESTIMATE DECREASED; PLATELET MORPHOLOGY NORMAL; TOTAL CELLS COUNTED 100
--- NOTE | 2017-02-16 09:37 | General Progress Note ---
Assessment/Plan Assessment/Plan Assessment - TF intolerance - DM - CAD - Resp failure - gastroparesis - leukocytosis - anemia - Azotemia - Elevated Alk Phos Recommendations - continue TF - monitor residuals - elevate HOB - supportive care Subjective Allergies: Coded Allergies: MORPHINE (Verified Adverse Reaction, Severe, PARADOXICAL REACTION, 10/08/12 ) Subjective Awake, intubated TF tolerated well off pressors C Diff (-) Objective Last 24 Hour Vital Signs Date Time Temp Pulse Resp B/P Pulse Ox O2 Delivery O2 Flow Rate FiO2 02/16/17 09:33 50 02/16/17 09:00 93 23 91/65 99 Mechanical Ventilator 60 02/16/17 08:56 76 33 60 02/16/17 08:00 97.8 85 20 91/46 99 Mechanical Ventilator 60 02/16/17 08:00 71 02/16/17 08:00 60 02/16/17 07:20 89 29 100 Mechanical Ventilator 02/16/17 07:18 80 34 60 02/16/17 07:10 82 34 100 Mechanical Ventilator 60 02/16/17 07:00 77 21 125/49 99 Mechanical Ventilator 60 02/16/17 06:00 71 22 104/32 99 Mechanical Ventilator 60 02/16/17 05:23 72 26 100 Mechanical Ventilator 02/16/17 05:22 74 33 60 02/16/17 05:13 76 33 100 Mechanical Ventilator 60 02/16/17 05:00 98.0 77 22 128/70 99 Mechanical Ventilator 60 02/16/17 04:00 72 02/16/17 04:00 60 02/16/17 04:00 72 23 115/82 100 Mechanical Ventilator 60 02/16/17 03:00 65 23 101/58 100 Mechanical Ventilator 60 02/16/17 02:52 65 23 60 02/16/17 02:00 65 26 92/36 100 Mechanical Ventilator 60 02/16/17 01:28 66 28 98 Mechanical Ventilator 02/16/17 01:07 71 32 99 Mechanical Ventilator 60 02/16/17 01:05 68 32 60 02/16/17 01:00 71 26 121/48 100 Mechanical Ventilator 60 02/16/17 00:00 72 02/16/17 00:00 60 02/16/17 00:00 98.2 64 23 122/46 98 Mechanical Ventilator 60 02/15/17 23:33 94/38 02/15/17 23:19 64 29 98 Mechanical Ventilator 02/15/17 23:03 64 34 99 Mechanical Ventilator 60 02/15/17 23:02 64 34 60 02/15/17 23:00 64 23 94/38 99 Mechanical Ventilator 60 02/15/17 22:00 69 23 98/26 100 Mechanical Ventilator 60 02/15/17 21:15 65 28 99 Mechanical Ventilator 02/15/17 21:00 68 30 99 Mechanical Ventilator 60 02/15/17 21:00 70 24 114/49 99 Mechanical Ventilator 60 02/15/17 20:58 69 30 60 02/15/17 20:00 70 02/15/17 20:00 97.7 75 26 110/72 98 Mechanical Ventilator 60 02/15/17 20:00 60 02/15/17 19:30 66 25 98 Mechanical Ventilator 02/15/17 19:14 68 30 96 Mechanical Ventilator 60 02/15/17 19:00 75 22 119/52 95 Mechanical Ventilator 60 02/15/17 18:54 66 30 60 02/15/17 18:00 63 24 103/40 99 Mechanical Ventilator 60 02/15/17 17:00 66 23 109/39 100 Mechanical Ventilator 60 02/15/17 16:53 66 33 70 02/15/17 16:00 68 02/15/17 16:00 97.5 71 26 116/48 97 Mechanical Ventilator 60 02/15/17 16:00 60 02/15/17 15:00 68 22 97/42 98 Mechanical Ventilator 60 02/15/17 14:43 65 38 70 02/15/17 14:00 67 22 104/33 98 Mechanical Ventilator 60 02/15/17 13:00 71 22 115/68 97 Mechanical Ventilator 60 02/15/17 12:43 72 33 70 02/15/17 12:00 60 02/15/17 12:00 71 02/15/17 12:00 97.5 71 31 128/49 98 Mechanical Ventilator 60 02/15/17 11:00 67 21 105/44 97 Mechanical Ventilator 60 02/15/17 10:49 67 36 70 02/15/17 10:00 71 24 117/40 99 Mechanical Ventilator 60 Intake and Output 02/15/17 02/16/17 19:00 07:00 Intake Total 505 ml 455 ml Output Total 0 ml Balance 505 ml 455 ml Free Water 30 ml 70 ml IV Total 55 ml Tube Feeding 420 ml 385 ml Output Urine Total 0 ml # Bowel Movements 5 3 Laboratory Tests 02/16/17 05:00: White Blood Count 15.0H, Red Blood Count 3.39L, Hemoglobin 10.4L, Hematocrit 31.1L, Mean Corpuscular Volume 92, Mean Corpuscular Hemoglobin 30.7, Mean Corpuscular Hemoglobin Concent 33.5, Red Cell Distribution Width 15.5H, Platelet Count 42#L, Mean Platelet Volume 8.6, Neutrophils (%) (Auto) , Lymphocytes (%) (Auto) , Monocytes (%) (Auto) , Eosinophils (%) (Auto) , Basophils (%) (Auto) , Neutrophils % (Manual) [Pending], Lymphocytes % (Manual) [Pending], Platelet Estimate [Pending], Platelet Morphology [Pending], Sodium Level 138, Potassium Level 4.2, Chloride Level 94L, Carbon Dioxide Level 24, Anion Gap 20H, Blood Urea Nitrogen 122#H, Creatinine 5.2H, Estimat Glomerular Filtration Rate , Glucose Level 229H, Uric Acid 10.9H, Calcium Level 8.2L, Phosphorus Level 6.7H, Magnesium Level 2.2, Total Bilirubin 0.6, Aspartate Amino Transf (AST/SGOT) 21, Alanine Aminotransferase (ALT/SGPT) 12, Alkaline Phosphatase 288H, C-Reactive Protein, Quantitative 3.8H, Pro-B-Type Natriuretic Peptide 79563K, Total Protein 4.5L, Albumin 2.1L, Globulin 2.4, Albumin/ Globulin Ratio 0.8L Height (Feet): 5 Height (Inches): 1.00 Weight (Pounds): 200 Objective WDWN NCAT supple CTA RRR soft ND NT no edema ARLIN LONGORIA Feb 16, 2017 09:37
[2017-02-16] MEDS ORDERED: NS 275ml ONE (10:20)
[2017-02-16] MEDS ORDERED: Tubing IV Secondary IV ONE (10:20)
--- NOTE | 2017-02-16 12:22 | Infectious Diseases Prog Note ---
Assessment/Plan Assessment/Plan ASSESSMENT: 76 y/o female with: // Probable UTI - UCx(-) // Hypoxia, possible HCAP Scx: ESBL Kleb - CXR 02/02 : Extensive bilateral interstitial and airspace opacities, unchanged // h/o CoNS bacteremia 11/05 ( 01/09 ) ?real ( PICC tip+ ) vs contaminant r/o recurrence/persistence - surveillance BCx(-) // h/o right ankle cellulitis / osteomyelitis / hardware infection SP incomplete Rx ( recommended to complete 6 weeks IV daptomycin, cefepime ( end ), but daughter apparently declined at last discharge per documentation ) - SP hardware removal 12/15 - no culture sent - 3P bone scan: 3 phase increased activity in region of distal aspect of right fibula compatible with hardware loosening and/or osteomyelitis - XR: surgical hardware seen reducing old healed distal fibular and medial malleolar fractures. No acute fractures. No dislocations. Bones are demineralized. - elevated ESR, CRP - h/o right ankle ORIF // Probable sepsis,SP // Leukocytosis , stable // VDRF intubated 02/07 // ARF on CKD --> IHD per renal SP placement of tunneled right jugular hemodialysis catheter. 01/29 // Dementia // DM2 - HbA1c 6.1% // h/o CAD - trop(-) x1 // NH resident // VRE colonized // No ABX allergies // Full Code PLAN: - on Merrem d# 10/14 ( 02/07 SP DC Teflaro d# 10 ) ( 01/28 SP IV cefepime d# 10 IV Vanco d# 2 ) - monitor CBC, temperatures - monitor BMP - monitor CXR - respiratory support prn - DNR poor prognosis , Subjective Constitutional: Denies: anorexia, chills, drenching sweats, fatigue, fever, no symptoms, other Allergies: Coded Allergies: MORPHINE (Verified Adverse Reaction, Severe, PARADOXICAL REACTION, 10/08/12 ) Objective Vital Signs Last 24 Hour Vital Signs Date Time Temp Pulse Resp B/P Pulse Ox O2 Delivery O2 Flow Rate FiO2 02/16/17 11:15 90 26 100 Mechanical Ventilator 02/16/17 11:14 96 33 50 02/16/17 11:03 84 33 100 Mechanical Ventilator 60 02/16/17 11:00 86 24 130/39 98 Mechanical Ventilator 50 02/16/17 10:00 89 21 102/56 99 Mechanical Ventilator 50 02/16/17 09:54 50 02/16/17 09:33 50 02/16/17 09:00 93 23 91/65 99 Mechanical Ventilator 60 02/16/17 08:56 76 33 60 02/16/17 08:00 97.8 85 20 91/46 99 Mechanical Ventilator 60 02/16/17 08:00 71 02/16/17 08:00 60 02/16/17 07:20 89 29 100 Mechanical Ventilator 02/16/17 07:18 80 34 60 02/16/17 07:10 82 34 100 Mechanical Ventilator 60 02/16/17 07:00 77 21 125/49 99 Mechanical Ventilator 60 02/16/17 06:00 71 22 104/32 99 Mechanical Ventilator 60 02/16/17 05:23 72 26 100 Mechanical Ventilator 02/16/17 05:22 74 33 60 02/16/17 05:13 76 33 100 Mechanical Ventilator 60 02/16/17 05:00 98.0 77 22 128/70 99 Mechanical Ventilator 60 02/16/17 04:00 72 02/16/17 04:00 60 02/16/17 04:00 72 23 115/82 100 Mechanical Ventilator 60 02/16/17 03:00 65 23 101/58 100 Mechanical Ventilator 60 02/16/17 02:52 65 23 60 02/16/17 02:00 65 26 92/36 100 Mechanical Ventilator 60 02/16/17 01:28 66 28 98 Mechanical Ventilator 02/16/17 01:07 71 32 99 Mechanical Ventilator 60 02/16/17 01:05 68 32 60 02/16/17 01:00 71 26 121/48 100 Mechanical Ventilator 60 02/16/17 00:00 72 02/16/17 00:00 60 02/16/17 00:00 98.2 64 23 122/46 98 Mechanical Ventilator 60 02/15/17 23:33 94/38 02/15/17 23:19 64 29 98 Mechanical Ventilator 02/15/17 23:03 64 34 99 Mechanical Ventilator 60 02/15/17 23:02 64 34 60 02/15/17 23:00 64 23 94/38 99 Mechanical Ventilator 60 02/15/17 22:00 69 23 98/26 100 Mechanical Ventilator 60 02/15/17 21:15 65 28 99 Mechanical Ventilator 02/15/17 21:00 68 30 99 Mechanical Ventilator 60 02/15/17 21:00 70 24 114/49 99 Mechanical Ventilator 60 02/15/17 20:58 69 30 60 02/15/17 20:00 70 02/15/17 20:00 97.7 75 26 110/72 98 Mechanical Ventilator 60 02/15/17 20:00 60 02/15/17 19:30 66 25 98 Mechanical Ventilator 02/15/17 19:14 68 30 96 Mechanical Ventilator 60 02/15/17 19:00 75 22 119/52 95 Mechanical Ventilator 60 02/15/17 18:54 66 30 60 02/15/17 18:00 63 24 103/40 99 Mechanical Ventilator 60 02/15/17 17:00 66 23 109/39 100 Mechanical Ventilator 60 02/15/17 16:53 66 33 70 02/15/17 16:00 68 02/15/17 16:00 97.5 71 26 116/48 97 Mechanical Ventilator 60 02/15/17 16:00 60 02/15/17 15:00 68 22 97/42 98 Mechanical Ventilator 60 02/15/17 14:43 65 38 70 02/15/17 14:00 67 22 104/33 98 Mechanical Ventilator 60 02/15/17 13:00 71 22 115/68 97 Mechanical Ventilator 60 02/15/17 12:43 72 33 70 Height (Feet): 5 Height (Inches): 1.00 Weight (Pounds): 200 HEENT: anicteric Respiratory/Chest: no respiratory distress Cardiovascular: regular rhythm Abdomen: no organomegaly Microbiology Date/Time Source Procedure Growth Status 02/14/17 19:00 Stool Clostridium difficile Toxin Assay - Final Complete Laboratory Tests Test 02/16/17 05:00 White Blood Count 15.0 K/UL (4.8-10.8) H Red Blood Count 3.39 M/UL (4.20-5.40) L Hemoglobin 10.4 G/DL (12.0-16.0) L Hematocrit 31.1 % (37.0-47.0) L Mean Corpuscular Volume 92 FL (80-99) Mean Corpuscular Hemoglobin 30.7 PG (27.0-31.0) Mean Corpuscular Hemoglobin Concent 33.5 G/DL (32.0-36.0) Red Cell Distribution Width 15.5 % (11.6-14.8) H Platelet Count 42 K/UL (150-450) #L Mean Platelet Volume 8.6 FL (6.5-10.1) Neutrophils (%) (Auto) % (45.0-75.0) Lymphocytes (%) (Auto) % (20.0-45.0) Monocytes (%) (Auto) % (1.0-10.0) Eosinophils (%) (Auto) % (0.0-3.0) Basophils (%) (Auto) % (0.0-2.0) Differential Total Cells Counted 100 Neutrophils % (Manual) 94 % (45-75) H Lymphocytes % (Manual) 3 % (20-45) L Monocytes % (Manual) 3 % (1-10) Eosinophils % (Manual) 0 % (0-3) Basophils % (Manual) 0 % (0-2) Band Neutrophils 0 % (0-8) Platelet Estimate Decreased L Platelet Morphology Normal Hypochromasia 1+ Anisocytosis 1+ Sodium Level 138 mEQ/L (135-145) Potassium Level 4.2 mEQ/L (3.4-4.9) Chloride Level 94 mEQ/L (98-107) L Carbon Dioxide Level 24 mEQ/L (20-30) Anion Gap 20 (5-15) H Blood Urea Nitrogen 122 mg/dL (7-23) #H Creatinine 5.2 mg/dL (0.5-0.9) H Estimat Glomerular Filtration Rate mL/min (>60) Glucose Level 229 mg/dL (74-106) H Uric Acid 10.9 mg/dL (3.0-7.5) H Calcium Level 8.2 mg/dL (8.6-10.2) L Phosphorus Level 6.7 mg/dL (2.5-4.8) H Magnesium Level 2.2 mg/dL (1.7-2.5) Total Bilirubin 0.6 mg/dL (0.0-1.2) Aspartate Amino Transf (AST/SGOT) 21 U/L (5-40) Alanine Aminotransferase (ALT/SGPT) 12 U/L (3-33) Alkaline Phosphatase 288 U/L (35-104) H C-Reactive Protein, Quantitative 3.8 mg/dL (< 0.5) H Pro-B-Type Natriuretic Peptide 21960 pg/mL (0-450) H Total Protein 4.5 g/dL (6.6-8.7) L Albumin 2.1 g/dL (3.5-5.2) L Globulin 2.4 g/dL Albumin/Globulin Ratio 0.8 (1.0-2.7) L Current Medications Medications (Trade) Dose Ordered Sig/Rina Route PRN Reason Start Time Stop Time Status Last Admin Dose Admin Acetaminophen (Tylenol) 650 mg Q6H PRN ORAL Mild Pain/Temp > 100.5 02/07/17 17:00 03/09/17 16:59 Albuterol/ Ipratropium (DuoNeb 0.5-3(2.5)mg/3ml) 3 ml Q2H PRN HHN WHEEZING 02/15/17 23:00 02/20/17 22:59 02/16/17 11:11 Dextrose (Dextrose 50%) STAT PRN IV Hypoglycemia 02/07/17 17:00 03/09/17 16:59 Hydrocortisone (Solu-CORTEF) 50 mg EVERY 8 HOURS IV 02/16/17 14:00 03/18/17 13:59 UNV Insulin Aspart (NovoLOG) Q6HR SUBQ 02/07/17 18:00 03/09/17 17:59 02/16/17 11:44 Menthol/Methyl Salicylate (Bengay) 1 applic FOUR TIMES A DAY TOPIC 02/07/17 18:00 03/09/17 17:59 02/16/17 08:11 Meropenem/Sodium Chloride (Merrem/Sodium Chloride) 55 ml @ 110 mls/hr DAILY@1400 IVPB 02/08/17 14:00 02/17/17 13:59 02/15/17 13:24 Nitroglycerin (Ntg) 0.4 mg Q5M X 3 DOSES PRN SL Prn Chest Pain 02/07/17 16:00 03/09/17 15:59 Norepinephrine Bitartrate/ Dextrose (Levophed/D5W 500ml) 558 ml @ 0 mls/hr Q24H IV 02/12/17 00:00 03/14/17 00:00 02/13/17 03:16 Ondansetron HCl (Zofran) 4 mg Q6H PRN IVP Nausea & Vomiting 02/07/17 17:00 03/09/17 16:59 02/11/17 10:59 Pantoprazole 40 mg 40 mg EVERY 12 HOURS IVP 02/07/17 21:00 03/09/17 20:59 02/16/17 08:11 Polyethylene Glycol (Miralax) 17 gm DAILYPRN PRN GT Constipation 02/07/17 17:00 03/09/17 16:59 GISELLA JEROME M.D. Feb 16, 2017 12:22
--- NOTE | 2017-02-16 12:22 | General Progress Note ---
Assessment/Plan Status: stable Status Narrative clinically improved- Assessment/Plan Has acute respiratory distress- intubated in ICU Septic shock ( Had long talk with daughter Gali 01/19 ) - Acute renal failure and hyperKalemia - Renal failure, likely diabetic nephropathy / HTN - Sepsis , Pneumonia, Respiratory failure and Hypoxia other - h/o Cellulitis in diabetic foot right LE - Decubitus ulcer - Dementia - Diabetes mellitus - Nonpressure ulcer to level of fascia right lateral ankle - S/P ORIF right ankle Plan: intubate - ICU On hydrocortisone- will decrease the dose- Had permacath 01/30 Adjust BP meds- Clonidin PRN HD last 02/15 next 02/17 Transfused monitor WBCs Phos supplement as needed Monitor renal parameters and Vanco level- ARTUR Kidney done last admission- unremarkable Adjust BP meds- Avoid Nephrotoxics- discussed with CM Per orders Subjective ROS Limited/Unobtainable: Yes Allergies: Coded Allergies: MORPHINE (Verified Adverse Reaction, Severe, PARADOXICAL REACTION, 10/08/12 ) Objective Last 24 Hour Vital Signs Date Time Temp Pulse Resp B/P Pulse Ox O2 Delivery O2 Flow Rate FiO2 02/16/17 11:15 90 26 100 Mechanical Ventilator 02/16/17 11:14 96 33 50 02/16/17 11:03 84 33 100 Mechanical Ventilator 60 02/16/17 11:00 86 24 130/39 98 Mechanical Ventilator 50 02/16/17 10:00 89 21 102/56 99 Mechanical Ventilator 50 02/16/17 09:54 50 02/16/17 09:33 50 02/16/17 09:00 93 23 91/65 99 Mechanical Ventilator 60 02/16/17 08:56 76 33 60 02/16/17 08:00 97.8 85 20 91/46 99 Mechanical Ventilator 60 02/16/17 08:00 71 02/16/17 08:00 60 02/16/17 07:20 89 29 100 Mechanical Ventilator 02/16/17 07:18 80 34 60 02/16/17 07:10 82 34 100 Mechanical Ventilator 60 02/16/17 07:00 77 21 125/49 99 Mechanical Ventilator 60 02/16/17 06:00 71 22 104/32 99 Mechanical Ventilator 60 02/16/17 05:23 72 26 100 Mechanical Ventilator 02/16/17 05:22 74 33 60 02/16/17 05:13 76 33 100 Mechanical Ventilator 60 02/16/17 05:00 98.0 77 22 128/70 99 Mechanical Ventilator 60 02/16/17 04:00 72 02/16/17 04:00 60 02/16/17 04:00 72 23 115/82 100 Mechanical Ventilator 60 02/16/17 03:00 65 23 101/58 100 Mechanical Ventilator 60 02/16/17 02:52 65 23 60 02/16/17 02:00 65 26 92/36 100 Mechanical Ventilator 60 02/16/17 01:28 66 28 98 Mechanical Ventilator 02/16/17 01:07 71 32 99 Mechanical Ventilator 60 02/16/17 01:05 68 32 60 02/16/17 01:00 71 26 121/48 100 Mechanical Ventilator 60 02/16/17 00:00 72 02/16/17 00:00 60 02/16/17 00:00 98.2 64 23 122/46 98 Mechanical Ventilator 60 02/15/17 23:33 94/38 02/15/17 23:19 64 29 98 Mechanical Ventilator 02/15/17 23:03 64 34 99 Mechanical Ventilator 60 02/15/17 23:02 64 34 60 02/15/17 23:00 64 23 94/38 99 Mechanical Ventilator 60 02/15/17 22:00 69 23 98/26 100 Mechanical Ventilator 60 02/15/17 21:15 65 28 99 Mechanical Ventilator 02/15/17 21:00 68 30 99 Mechanical Ventilator 60 02/15/17 21:00 70 24 114/49 99 Mechanical Ventilator 60 02/15/17 20:58 69 30 60 02/15/17 20:00 70 02/15/17 20:00 97.7 75 26 110/72 98 Mechanical Ventilator 60 02/15/17 20:00 60 02/15/17 19:30 66 25 98 Mechanical Ventilator 02/15/17 19:14 68 30 96 Mechanical Ventilator 60 02/15/17 19:00 75 22 119/52 95 Mechanical Ventilator 60 02/15/17 18:54 66 30 60 02/15/17 18:00 63 24 103/40 99 Mechanical Ventilator 60 02/15/17 17:00 66 23 109/39 100 Mechanical Ventilator 60 02/15/17 16:53 66 33 70 02/15/17 16:00 68 02/15/17 16:00 97.5 71 26 116/48 97 Mechanical Ventilator 60 02/15/17 16:00 60 02/15/17 15:00 68 22 97/42 98 Mechanical Ventilator 60 02/15/17 14:43 65 38 70 02/15/17 14:00 67 22 104/33 98 Mechanical Ventilator 60 02/15/17 13:00 71 22 115/68 97 Mechanical Ventilator 60 02/15/17 12:43 72 33 70 Intake and Output 02/15/17 02/16/17 19:00 07:00 Intake Total 505 ml 455 ml Output Total 0 ml Balance 505 ml 455 ml Free Water 30 ml 70 ml IV Total 55 ml Tube Feeding 420 ml 385 ml Output Urine Total 0 ml # Bowel Movements 5 3 Laboratory Tests 02/16/17 05:00: White Blood Count 15.0H, Red Blood Count 3.39L, Hemoglobin 10.4L, Hematocrit 31.1L, Mean Corpuscular Volume 92, Mean Corpuscular Hemoglobin 30.7, Mean Corpuscular Hemoglobin Concent 33.5, Red Cell Distribution Width 15.5H, Platelet Count 42#L, Mean Platelet Volume 8.6, Neutrophils (%) (Auto) , Lymphocytes (%) (Auto) , Monocytes (%) (Auto) , Eosinophils (%) (Auto) , Basophils (%) (Auto) , Differential Total Cells Counted 100, Neutrophils % ( Manual) 94H, Lymphocytes % (Manual) 3L, Monocytes % (Manual) 3, Eosinophils % ( Manual) 0, Basophils % (Manual) 0, Band Neutrophils 0, Platelet Estimate DecreasedL, Platelet Morphology Normal, Hypochromasia 1+, Anisocytosis 1+, Sodium Level 138, Potassium Level 4.2, Chloride Level 94L, Carbon Dioxide Level 24, Anion Gap 20H, Blood Urea Nitrogen 122#H, Creatinine 5.2H, Estimat Glomerular Filtration Rate , Glucose Level 229H, Uric Acid 10.9H, Calcium Level 8.2L, Phosphorus Level 6.7H, Magnesium Level 2.2, Total Bilirubin 0.6, Aspartate Amino Transf (AST/SGOT) 21, Alanine Aminotransferase (ALT/SGPT) 12, Alkaline Phosphatase 288H, C-Reactive Protein, Quantitative 3.8H, Pro-B-Type Natriuretic Peptide 39408C, Total Protein 4.5L, Albumin 2.1L, Globulin 2.4, Albumin/Globulin Ratio 0.8L Height (Feet): 5 Height (Inches): 1.00 Weight (Pounds): 200 General Appearance: no apparent distress Cardiovascular: tachycardia Respiratory/Chest: decreased breath sounds Abdomen: soft Objective other PE not changed BERTRAM CASTAÑEDA Feb 16, 2017 12:22
[2017-02-16] MEDS: Meropenem 500 MG in NS 55 ML IVPB SCH (13:42)
--- NOTE | 2017-02-16 16:09 | Diagnostic Imaging Report ---
Indication: SOB Technique: One view of the chest Comparison: 02/09/2017 Findings: Bilateral diffuse interstitial and alveolar disease persists, perhaps slightly improved. Endotracheal tube, nasogastric tube, right jugular tunneled dialysis catheter remain. Impression: Slight improvement persistent and still extensive bilateral interstitial and airspace disease, as described, over 7 days
--- NOTE | 2017-02-16 17:49 | General Progress Note ---
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 bilateral right greater than left pleural effusions and mediastinal lymphadenopathy - she is a poor candidate for biopsy and has a poor prognosis # Anemia 2/2 chronic disease - s/p multiple units of blood # Leukocytosis - related to sepsis and underlying infection, is on antibiotics and counts decreasing # Respiratory failure s/p intubation # Respiratory acidosis # Renal failure # ALOC # Sepsis Recs: - Considering terminal extubation, comfort care as per primary - Transfuse to hgb goal >7, plt goal >20k if bleeding --> conservative management - Give PRBC during HD due to hgb<7 - She is off heparin, plavix, aspirin - Agree to administer FFP if INR >2 - Does not require a biopsy as has poor prognosis and poor outcome at this time - OG feeds at maximal rate - Appreciate consultation! continue to follow Subjective ROS Limited/Unobtainable: Yes Constitutional: Reports: no symptoms HEENT: Reports: no symptoms Cardiovascular: Reports: no symptoms Respiratory: Reports: other - pt on a vent Gastrointestinal/Abdominal: Reports: no symptoms Genitourinary: Reports: no symptoms 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: Reports: no symptoms Endocrine: Reports: no symptoms Hematologic/Lymphatic: Reports: no symptoms Allergies: Coded Allergies: MORPHINE (Verified Adverse Reaction, Severe, PARADOXICAL REACTION, 10/08/12 ) Subjective no hematochezia, no hemoptysis, pt dnr, continue to discuss with family Objective Last 24 Hour Vital Signs Date Time Temp Pulse Resp B/P Pulse Ox O2 Delivery O2 Flow Rate FiO2 02/16/17 17:00 97.8 99 21 132/42 99 Mechanical Ventilator 50 02/16/17 16:43 96 32 50 02/16/17 16:00 50 02/16/17 16:00 102 21 153/42 99 Mechanical Ventilator 50 02/16/17 16:00 97 02/16/17 15:04 92 26 100 Mechanical Ventilator 02/16/17 15:00 88 29 50 02/16/17 15:00 94 22 122/43 99 Mechanical Ventilator 50 02/16/17 14:50 88 26 100 Mechanical Ventilator 60 02/16/17 14:00 89 22 138/41 99 Mechanical Ventilator 50 02/16/17 13:00 94 23 138/45 99 Mechanical Ventilator 50 02/16/17 12:38 86 32 50 02/16/17 12:00 85 02/16/17 12:00 98.0 85 24 98/35 98 Mechanical Ventilator 50 02/16/17 11:15 90 26 100 Mechanical Ventilator 02/16/17 11:14 96 33 50 02/16/17 11:03 84 33 100 Mechanical Ventilator 60 02/16/17 11:00 86 24 130/39 98 Mechanical Ventilator 50 02/16/17 10:00 89 21 102/56 99 Mechanical Ventilator 50 02/16/17 09:54 50 02/16/17 09:33 50 02/16/17 09:00 93 23 91/65 99 Mechanical Ventilator 60 02/16/17 08:56 76 33 60 02/16/17 08:00 97.8 85 20 91/46 99 Mechanical Ventilator 60 02/16/17 08:00 71 02/16/17 08:00 60 02/16/17 07:20 89 29 100 Mechanical Ventilator 02/16/17 07:18 80 34 60 02/16/17 07:10 82 34 100 Mechanical Ventilator 60 02/16/17 07:00 77 21 125/49 99 Mechanical Ventilator 60 02/16/17 06:00 71 22 104/32 99 Mechanical Ventilator 60 02/16/17 05:23 72 26 100 Mechanical Ventilator 02/16/17 05:22 74 33 60 02/16/17 05:13 76 33 100 Mechanical Ventilator 60 02/16/17 05:00 98.0 77 22 128/70 99 Mechanical Ventilator 60 02/16/17 04:00 72 02/16/17 04:00 60 02/16/17 04:00 72 23 115/82 100 Mechanical Ventilator 60 02/16/17 03:00 65 23 101/58 100 Mechanical Ventilator 60 02/16/17 02:52 65 23 60 02/16/17 02:00 65 26 92/36 100 Mechanical Ventilator 60 02/16/17 01:28 66 28 98 Mechanical Ventilator 02/16/17 01:07 71 32 99 Mechanical Ventilator 60 02/16/17 01:05 68 32 60 02/16/17 01:00 71 26 121/48 100 Mechanical Ventilator 60 02/16/17 00:00 72 02/16/17 00:00 60 02/16/17 00:00 98.2 64 23 122/46 98 Mechanical Ventilator 60 02/15/17 23:33 94/38 02/15/17 23:19 64 29 98 Mechanical Ventilator 02/15/17 23:03 64 34 99 Mechanical Ventilator 60 02/15/17 23:02 64 34 60 02/15/17 23:00 64 23 94/38 99 Mechanical Ventilator 60 02/15/17 22:00 69 23 98/26 100 Mechanical Ventilator 60 02/15/17 21:15 65 28 99 Mechanical Ventilator 02/15/17 21:00 68 30 99 Mechanical Ventilator 60 02/15/17 21:00 70 24 114/49 99 Mechanical Ventilator 60 02/15/17 20:58 69 30 60 02/15/17 20:00 70 02/15/17 20:00 97.7 75 26 110/72 98 Mechanical Ventilator 60 02/15/17 20:00 60 02/15/17 19:30 66 25 98 Mechanical Ventilator 02/15/17 19:14 68 30 96 Mechanical Ventilator 60 02/15/17 19:00 75 22 119/52 95 Mechanical Ventilator 60 02/15/17 18:54 66 30 60 02/15/17 18:00 63 24 103/40 99 Mechanical Ventilator 60 Intake and Output 02/15/17 02/16/17 19:00 07:00 Intake Total 505 ml 455 ml Output Total 0 ml Balance 505 ml 455 ml Free Water 30 ml 70 ml IV Total 55 ml Tube Feeding 420 ml 385 ml Output Urine Total 0 ml # Bowel Movements 5 3 Laboratory Tests 02/16/17 05:00: White Blood Count 15.0H, Red Blood Count 3.39L, Hemoglobin 10.4L, Hematocrit 31.1L, Mean Corpuscular Volume 92, Mean Corpuscular Hemoglobin 30.7, Mean Corpuscular Hemoglobin Concent 33.5, Red Cell Distribution Width 15.5H, Platelet Count 42#L, Mean Platelet Volume 8.6, Neutrophils (%) (Auto) , Lymphocytes (%) (Auto) , Monocytes (%) (Auto) , Eosinophils (%) (Auto) , Basophils (%) (Auto) , Differential Total Cells Counted 100, Neutrophils % ( Manual) 94H, Lymphocytes % (Manual) 3L, Monocytes % (Manual) 3, Eosinophils % ( Manual) 0, Basophils % (Manual) 0, Band Neutrophils 0, Platelet Estimate DecreasedL, Platelet Morphology Normal, Hypochromasia 1+, Anisocytosis 1+, Sodium Level 138, Potassium Level 4.2, Chloride Level 94L, Carbon Dioxide Level 24, Anion Gap 20H, Blood Urea Nitrogen 122#H, Creatinine 5.2H, Estimat Glomerular Filtration Rate , Glucose Level 229H, Uric Acid 10.9H, Calcium Level 8.2L, Phosphorus Level 6.7H, Magnesium Level 2.2, Total Bilirubin 0.6, Aspartate Amino Transf (AST/SGOT) 21, Alanine Aminotransferase (ALT/SGPT) 12, Alkaline Phosphatase 288H, C-Reactive Protein, Quantitative 3.8H, Pro-B-Type Natriuretic Peptide 26595J, Total Protein 4.5L, Albumin 2.1L, Globulin 2.4, Albumin/Globulin Ratio 0.8L Height (Feet): 5 Height (Inches): 1.00 Weight (Pounds): 200 General Appearance: no apparent distress EENT: normal ENT inspection Neck: non-tender Cardiovascular: normal peripheral pulses Respiratory/Chest: chest wall non-tender Abdomen: normal bowel sounds Extremities: normal range of motion Edema: 1+ Arm (L), 1+ Arm (R), no edema noted Leg (L), no edema noted Leg (R), no edema noted Pedal (L), no edema noted Pedal (R) Neurologic: other - arousable to tactile stimuli Skin: warm/dry Mariano Ortiz Feb 16, 2017 17:49
[2017-02-16] MEDS: Norepinephrine Bitartrate 8 MG in D5W 500ml 550 ML IV SCH (23:49)
[2017-02-17] VITALS (25 sets, daily range): BP systolic 83–148; BP diastolic 34–84
--- NOTE | 2017-02-17 03:48 | Progress Note ---
DATE: 02/16/2017 CARDIOLOGY PROGRESS NOTE SUBJECTIVE: The patient remains in the intensive care unit. She continues to remain on ventilator support. Blood pressure has improved and she is off pressors. She remains off all anti-platelet drugs. OBJECTIVE: VITAL SIGNS: Blood pressure 91/46, pulse 85, respiratory rate 20, and afebrile. LUNGS: Bilateral breath sounds. Orally intubated. Scattered rhonchi. HEART: Irregularly irregular rhythm. Normal S1 and S2. ABDOMEN: Soft, distended, and ascitic. EXTREMITIES: 1+ dependent edema. LABORATORY DATA: White count 15 and hemoglobin 10.4. Sodium 138, potassium 4.2, bicarbonate 24, BUN 122, and creatinine 5.2. Pro natriuretic peptide 15,000. IMPRESSION: 1. Acute on chronic diastolic congestive heart failure improving with decreasing saturated peptide assays. 2. End-stage renal disease on hemodialysis. 3. Sepsis with shock. Now off pressors. 4. Respiratory failure. 5. Disseminated intravascular coagulation with improved platelet count. 6. Severe protein-calorie malnutrition. PLAN: 1. Ventilator support. No wean at this time. Antimicrobials, avoid antiplatelets. Monitor blood counts. 2. Protein supplement by feeding tube. 3. Hemodialysis with ultrafiltration as tolerated. Avoid pressors as able. Joss Rush M.D. DR: JUNIOR JOB#: [id number] CC:
[2017-02-17 05:54] LABS: MEAN CORPUSCULAR HEMOGLOBIN 30.6 PG (27.0-31.0); MEAN CORPUSCULAR VOLUME 93 FL (80-99); MEAN PLATELET VOLUME 7.2 FL (6.5-10.1); PLATELET COUNT 64 K/UL (150-450); RED BLOOD COUNT 3.17 M/UL (4.20-5.40); RED CELL DISTRIBUTION WIDTH 16.1 % (11.6-14.8); WHITE BLOOD COUNT 21.5 K/UL (4.8-10.8)
[2017-02-17] MEDS: Hydrocortisone 100mg Inj IV SCH ×3 (06:03→21:37)
[2017-02-17] MEDS: NovoLOG Insulin Flexpen SUBQ SCH ×4 (06:06→23:27)
[2017-02-17 06:25] LABS: ALANINE AMINOTRANSFERASE 10 U/L (3-33); ANION GAP 20 (5-15); ASPARTATE AMINO TRANSFERASE 21 U/L (5-40); CALCIUM 8.1 mg/dL (8.6-10.2); CARBON DIOXIDE 23 mEQ/L (20-30); CHLORIDE 95 mEQ/L (98-107); CREATININE 6.1 mg/dL (0.5-0.9); CRP QUANT 1.8 mg/dL (< 0.5); HEMOLYSIS 5; MAGNESIUM 2.2 mg/dL (1.7-2.5); POTASSIUM 4.1 mEQ/L (3.4-4.9); SODIUM 138 mEQ/L (135-145); TOTAL PROTEIN 4.2 g/dL (6.6-8.7); URIC ACID 12.4 mg/dL (3.0-7.5)
--- NOTE | 2017-02-17 08:50 | General Progress Note ---
Assessment/Plan Assessment/Plan Assessment - TF intolerance - resolved - DM - CAD - Resp failure - gastroparesis - leukocytosis - anemia - Azotemia - Elevated Alk Phos - rising WBC noted Recommendations - abd ultrasound - abx - monitor residuals - elevate HOB - supportive care Subjective Allergies: Coded Allergies: MORPHINE (Verified Adverse Reaction, Severe, PARADOXICAL REACTION, 10/08/12 ) Subjective Awake, intubated TF tolerated well off pressors large brown BM today Objective Last 24 Hour Vital Signs Date Time Temp Pulse Resp B/P Pulse Ox O2 Delivery O2 Flow Rate FiO2 02/17/17 08:00 98.1 70 24 110/84 96 Mechanical Ventilator 50 02/17/17 08:00 50 02/17/17 07:28 79 30 50 02/17/17 07:00 85 25 83/34 96 Mechanical Ventilator 50 02/17/17 06:00 85 25 96/41 96 Mechanical Ventilator 50 02/17/17 05:20 Mechanical Ventilator 50 02/17/17 05:00 79 25 109/41 95 Mechanical Ventilator 50 02/17/17 05:00 97.4 79 29 107/41 98 Mechanical Ventilator 50 02/17/17 04:41 85 29 50 02/17/17 04:00 98.4 85 27 107/41 95 Mechanical Ventilator 50 02/17/17 04:00 50 02/17/17 04:00 87 02/17/17 03:24 98 32 50 02/17/17 03:00 87 27 113/47 95 Mechanical Ventilator 50 02/17/17 02:00 103 27 148/44 96 Mechanical Ventilator 50 02/17/17 01:02 102 30 50 02/17/17 01:00 103 27 148/44 96 Mechanical Ventilator 50 02/17/17 00:00 101 02/17/17 00:00 97.9 101 28 135/56 95 Mechanical Ventilator 50 02/17/17 00:00 50 02/16/17 23:49 148/49 02/16/17 23:06 96 35 50 02/16/17 23:00 96 27 148/49 96 Mechanical Ventilator 50 02/16/17 22:00 95 28 140/44 96 Mechanical Ventilator 50 02/16/17 21:10 94 31 50 02/16/17 21:00 94 27 139/47 97 Mechanical Ventilator 50 02/16/17 20:00 97 02/16/17 20:00 98.3 94 29 136/39 99 Mechanical Ventilator 50 02/16/17 20:00 50 02/16/17 19:36 93 29 50 02/16/17 19:00 94 21 123/40 99 Mechanical Ventilator 50 02/16/17 18:00 97 20 142/42 99 Mechanical Ventilator 50 02/16/17 17:00 97.8 99 21 132/42 99 Mechanical Ventilator 50 02/16/17 16:43 96 32 50 02/16/17 16:00 50 02/16/17 16:00 102 21 153/42 99 Mechanical Ventilator 50 02/16/17 16:00 97 02/16/17 15:04 92 26 100 Mechanical Ventilator 02/16/17 15:00 88 29 50 02/16/17 15:00 94 22 122/43 99 Mechanical Ventilator 50 02/16/17 14:50 88 26 100 Mechanical Ventilator 60 02/16/17 14:00 89 22 138/41 99 Mechanical Ventilator 50 02/16/17 13:00 94 23 138/45 99 Mechanical Ventilator 50 02/16/17 12:38 86 32 50 02/16/17 12:00 85 02/16/17 12:00 98.0 85 24 98/35 98 Mechanical Ventilator 50 02/16/17 11:15 90 26 100 Mechanical Ventilator 02/16/17 11:14 96 33 50 02/16/17 11:03 84 33 100 Mechanical Ventilator 60 02/16/17 11:00 86 24 130/39 98 Mechanical Ventilator 50 02/16/17 10:00 89 21 102/56 99 Mechanical Ventilator 50 02/16/17 09:54 50 02/16/17 09:33 50 02/16/17 09:00 93 23 91/65 99 Mechanical Ventilator 60 02/16/17 08:56 76 33 60 Intake and Output 02/16/17 02/17/17 19:00 07:00 Intake Total 515 ml 420 ml Balance 515 ml 420 ml Free Water 40 ml IV Total 55 ml Tube Feeding 420 ml 420 ml # Bowel Movements 1 Laboratory Tests 02/17/17 05:20: White Blood Count 21.5H, Red Blood Count 3.17L, Hemoglobin 9.7L, Hematocrit 29.4L, Mean Corpuscular Volume 93, Mean Corpuscular Hemoglobin 30.6, Mean Corpuscular Hemoglobin Concent 33.0, Red Cell Distribution Width 16.1H, Platelet Count 64#L, Mean Platelet Volume 7.2, Neutrophils (%) (Auto) , Lymphocytes (%) (Auto) , Monocytes (%) (Auto) , Eosinophils (%) (Auto) , Basophils (%) (Auto) , Neutrophils % (Manual) [Pending], Lymphocytes % (Manual) [Pending], Platelet Estimate [Pending], Platelet Morphology [Pending], Sodium Level 138, Potassium Level 4.1, Chloride Level 95L, Carbon Dioxide Level 23, Anion Gap 20H, Blood Urea Nitrogen 153#H, Creatinine 6.1H, Estimat Glomerular Filtration Rate , Glucose Level 165H, Uric Acid 12.4H, Calcium Level 8.1L, Phosphorus Level 7.0H, Magnesium Level 2.2, Total Bilirubin 0.6, Gamma Glutamyl Transpeptidase 48H, Aspartate Amino Transf (AST/SGOT) 21, Alanine Aminotransferase (ALT/SGPT) 10, Alkaline Phosphatase 238H, C-Reactive Protein, Quantitative 1.8H, Pro-B-Type Natriuretic Peptide [id number], Total Protein 4.2L, Albumin 2.1L, Globulin 2.1, Albumin/Globulin Ratio 1.0 Height (Feet): 5 Height (Inches): 1.00 Weight (Pounds): 200 Objective WDWN NCAT supple CTA RRR soft ND NT no edema ARLIN LONGORIA Feb 17, 2017 08:50
--- NOTE | 2017-02-17 08:53 | Critical Care Progress Note ---
Assessment/Plan Assessment/Plan hypoxemia respiratory failure respiratory acidosis pulmonary infiltrates thrombocytopenia renal failure ALOC chronic encephalopathy septic shock leukocytosis pulmonary infiltrates ARDS DIC likely s/p transfusion atrial fibrillation hypotension PLAN off heparin, plavix, aspirin platelets slowly improving follow up labs afib now NSR levophed off monitor renal function; on HD per renal antibiotics noted taper fio2; as able; saturation better reduce PEEP follow up ABG and CXR prognosis remains poor; wbc improvement family encouraged of improvement and would want to hold on terminal extubation wean hope to wean medications/laboratory data/nursing notes/ICU care reviewed in detail note reviewed and edited care discussed with RN and RT ICU time spent 35 minutes Critical Care - Subjective Interval Events: long d/w son overall seems improved more alert ON HD Condition: critical EKG Rhythm: Sinus Rhythm Residuals: minimal Tube Feeding Tolerated: yes I&O: Intake and Output 02/16/17 02/17/17 19:00 07:00 Intake Total 515 ml 420 ml Balance 515 ml 420 ml Free Water 40 ml IV Total 55 ml Tube Feeding 420 ml 420 ml # Bowel Movements 1 Critical Care - Objective ET-Tube: 7.0 ET Position: 22 Last 24 Hour Vital Signs Date Time Temp Pulse Resp B/P Pulse Ox O2 Delivery O2 Flow Rate FiO2 02/17/17 08:00 98.1 70 24 110/84 96 Mechanical Ventilator 50 02/17/17 08:00 50 02/17/17 07:28 79 30 50 02/17/17 07:00 85 25 83/34 96 Mechanical Ventilator 50 02/17/17 06:00 85 25 96/41 96 Mechanical Ventilator 50 02/17/17 05:20 Mechanical Ventilator 50 02/17/17 05:00 79 25 109/41 95 Mechanical Ventilator 50 02/17/17 05:00 97.4 79 29 107/41 98 Mechanical Ventilator 50 02/17/17 04:41 85 29 50 02/17/17 04:00 98.4 85 27 107/41 95 Mechanical Ventilator 50 02/17/17 04:00 50 02/17/17 04:00 87 02/17/17 03:24 98 32 50 02/17/17 03:00 87 27 113/47 95 Mechanical Ventilator 50 02/17/17 02:00 103 27 148/44 96 Mechanical Ventilator 50 02/17/17 01:02 102 30 50 02/17/17 01:00 103 27 148/44 96 Mechanical Ventilator 50 02/17/17 00:00 101 02/17/17 00:00 97.9 101 28 135/56 95 Mechanical Ventilator 50 02/17/17 00:00 50 02/16/17 23:49 148/49 02/16/17 23:06 96 35 50 02/16/17 23:00 96 27 148/49 96 Mechanical Ventilator 50 02/16/17 22:00 95 28 140/44 96 Mechanical Ventilator 50 02/16/17 21:10 94 31 50 02/16/17 21:00 94 27 139/47 97 Mechanical Ventilator 50 02/16/17 20:00 97 02/16/17 20:00 98.3 94 29 136/39 99 Mechanical Ventilator 50 02/16/17 20:00 50 02/16/17 19:36 93 29 50 02/16/17 19:00 94 21 123/40 99 Mechanical Ventilator 50 02/16/17 18:00 97 20 142/42 99 Mechanical Ventilator 50 02/16/17 17:00 97.8 99 21 132/42 99 Mechanical Ventilator 50 02/16/17 16:43 96 32 50 02/16/17 16:00 50 02/16/17 16:00 102 21 153/42 99 Mechanical Ventilator 50 02/16/17 16:00 97 02/16/17 15:04 92 26 100 Mechanical Ventilator 02/16/17 15:00 88 29 50 02/16/17 15:00 94 22 122/43 99 Mechanical Ventilator 50 02/16/17 14:50 88 26 100 Mechanical Ventilator 60 02/16/17 14:00 89 22 138/41 99 Mechanical Ventilator 50 02/16/17 13:00 94 23 138/45 99 Mechanical Ventilator 50 02/16/17 12:38 86 32 50 02/16/17 12:00 85 02/16/17 12:00 98.0 85 24 98/35 98 Mechanical Ventilator 50 02/16/17 11:15 90 26 100 Mechanical Ventilator 02/16/17 11:14 96 33 50 02/16/17 11:03 84 33 100 Mechanical Ventilator 60 02/16/17 11:00 86 24 130/39 98 Mechanical Ventilator 50 02/16/17 10:00 89 21 102/56 99 Mechanical Ventilator 50 02/16/17 09:54 50 02/16/17 09:33 50 02/16/17 09:00 93 23 91/65 99 Mechanical Ventilator 60 02/16/17 08:56 76 33 60 Labs: Labs Test 02/15/17 04:00 02/16/17 05:00 02/17/17 05:20 White Blood Count 15.8 K/UL (4.8-10.8) 15.0 K/UL (4.8-10.8) 21.5 K/UL (4.8-10.8) Red Blood Count 3.32 M/UL (4.20-5.40) 3.39 M/UL (4.20-5.40) 3.17 M/UL (4.20-5.40) Hemoglobin 10.2 G/DL (12.0-16.0) 10.4 G/DL (12.0-16.0) 9.7 G/DL (12.0-16.0) Hematocrit 30.1 % (37.0-47.0) 31.1 % (37.0-47.0) 29.4 % (37.0-47.0) Mean Corpuscular Volume 91 FL (80-99) 92 FL (80-99) 93 FL (80-99) Mean Corpuscular Hemoglobin 30.6 PG (27.0-31.0) 30.7 PG (27.0-31.0) 30.6 PG (27.0-31.0) Mean Corpuscular Hemoglobin Concent 33.8 G/DL (32.0-36.0) 33.5 G/DL (32.0-36.0) 33.0 G/DL (32.0-36.0) Red Cell Distribution Width 14.6 % (11.6-14.8) 15.5 % (11.6-14.8) 16.1 % (11.6-14.8) Platelet Count 21 K/UL (150-450) 42 K/UL (150-450) 64 K/UL (150-450) Mean Platelet Volume 10.4 FL (6.5-10.1) 8.6 FL (6.5-10.1) 7.2 FL (6.5-10.1) Neutrophils (%) (Auto) % (45.0-75.0) % (45.0-75.0) % (45.0-75.0) Lymphocytes (%) (Auto) % (20.0-45.0) % (20.0-45.0) % (20.0-45.0) Monocytes (%) (Auto) % (1.0-10.0) % (1.0-10.0) % (1.0-10.0) Eosinophils (%) (Auto) % (0.0-3.0) % (0.0-3.0) % (0.0-3.0) Basophils (%) (Auto) % (0.0-2.0) % (0.0-2.0) % (0.0-2.0) Differential Total Cells Counted 100 100 Neutrophils % (Manual) 96 % (45-75) 94 % (45-75) Lymphocytes % (Manual) 1 % (20-45) 3 % (20-45) Monocytes % (Manual) 3 % (1-10) 3 % (1-10) Eosinophils % (Manual) 0 % (0-3) 0 % (0-3) Basophils % (Manual) 0 % (0-2) 0 % (0-2) Band Neutrophils 0 % (0-8) 0 % (0-8) Platelet Estimate Decreased Decreased Platelet Morphology Normal Normal Polychromasia 1+ Hypochromasia 1+ 1+ Anisocytosis 1+ 1+ Spherocytes 1+ Sodium Level 136 mEQ/L (135-145) 138 mEQ/L (135-145) 138 mEQ/L (135-145) Potassium Level 4.0 mEQ/L (3.4-4.9) 4.2 mEQ/L (3.4-4.9) 4.1 mEQ/L (3.4-4.9) Chloride Level 91 mEQ/L (98-107) 94 mEQ/L (98-107) 95 mEQ/L (98-107) Carbon Dioxide Level 25 mEQ/L (20-30) 24 mEQ/L (20-30) 23 mEQ/L (20-30) Anion Gap 20 (5-15) 20 (5-15) 20 (5-15) Blood Urea Nitrogen 92 mg/dL (7-23) 122 mg/dL (7-23) 153 mg/dL (7-23) Creatinine 4.5 mg/dL (0.5-0.9) 5.2 mg/dL (0.5-0.9) 6.1 mg/dL (0.5-0.9) Estimat Glomerular Filtration Rate mL/min (>60) mL/min (>60) mL/min (>60) Glucose Level 201 mg/dL (74-106) 229 mg/dL (74-106) 165 mg/dL (74-106) Calcium Level 8.3 mg/dL (8.6-10.2) 8.2 mg/dL (8.6-10.2) 8.1 mg/dL (8.6-10.2) Phosphorus Level 6.0 mg/dL (2.5-4.8) 6.7 mg/dL (2.5-4.8) 7.0 mg/dL (2.5-4.8) Total Bilirubin 0.7 mg/dL (0.0-1.2) 0.6 mg/dL (0.0-1.2) 0.6 mg/dL (0.0-1.2) Aspartate Amino Transf (AST/SGOT) 35 U/L (5-40) 21 U/L (5-40) 21 U/L (5-40) Alanine Aminotransferase (ALT/SGPT) 13 U/L (3-33) 12 U/L (3-33) 10 U/L (3-33) Alkaline Phosphatase 304 U/L (35-104) 288 U/L (35-104) 238 U/L (35-104) Pro-B-Type Natriuretic Peptide 57395 pg/mL (0-450) 43877 pg/mL (0-450) 74151 pg/mL (0-450) Total Protein 4.2 g/dL (6.6-8.7) 4.5 g/dL (6.6-8.7) 4.2 g/dL (6.6-8.7) Albumin 2.0 g/dL (3.5-5.2) 2.1 g/dL (3.5-5.2) 2.1 g/dL (3.5-5.2) Globulin 2.2 g/dL 2.4 g/dL 2.1 g/dL Albumin/Globulin Ratio 0.9 (1.0-2.7) 0.8 (1.0-2.7) 1.0 (1.0-2.7) Random Vancomycin Level 4.3 ug/mL Uric Acid 10.9 mg/dL (3.0-7.5) 12.4 mg/dL (3.0-7.5) Magnesium Level 2.2 mg/dL (1.7-2.5) 2.2 mg/dL (1.7-2.5) C-Reactive Protein, Quantitative 3.8 mg/dL (< 0.5) 1.8 mg/dL (< 0.5) Gamma Glutamyl Transpeptidase 48 U/L (5-36) Objective: WDWN chronically ill appearing; on the ventilator NAD coarse breath sounds bilaterally with reduced rhonchi but no wheeze orally intubated S1S2 RRR without MRG; rate controlled NABS nontender no HSM; feeding tube in place; no distention no CC; some edema but slightly improved nonfocal but arouseable more alert skin noted and examined pupils sluggish Micro: Microbiology Date/Time Source Procedure Growth Status 02/14/17 19:00 Stool Clostridium difficile Toxin Assay - Final Complete Accucheck: 159 FELIPE PATHAK Feb 17, 2017 08:53
[2017-02-17] MEDS: Pantoprazole Inj IVP SCH ×2 (09:11→21:37)
[2017-02-17] MEDS: Analgesic Balm 15gm TOPIC SCH ×4 (09:11→21:36)
[2017-02-17 10:19] LABS: ANISOCYTOSIS 1+; BAND NEUTROPHILS % (MANUAL) 0 % (0-8); BASOPHILS % (MANUAL) 0 % (0-2); EOSINOPHILS % (MANUAL) 0 % (0-3); HYPOCHROMASIA 1+; LYMPHOCYTES % (MANUAL) 3 % (20-45); NEUTROPHILS % (MANUAL) 94 % (45-75); PLATELET ESTIMATE DECREASED; PLATELET MORPHOLOGY NORMAL; TOTAL CELLS COUNTED 100
[2017-02-17] MEDS ORDERED: NS 275ml ONE ×2 (10:27→10:53)
[2017-02-17] MEDS ORDERED: Tubing Blood Filter IV ONE (10:27)
[2017-02-17] MEDS ORDERED: NS 550ML IV ONE (10:27)
[2017-02-17 10:42] LABS: ABG ALLEN TEST POSITIVE; ABG BASE EXCESS 2.3; ABG PCO2 60.9 mmHg (35.0-45.0)
[2017-02-17] MEDS: DuoNeb 0.5-3(2.5)mg/3ml neb HHN PRN (11:01)
--- NOTE | 2017-02-17 11:57 | General Progress Note ---
Assessment/Plan Status: unchanged Status Narrative remains on Vent- Dialysed today- Leukocytosis persists Assessment/Plan Has acute respiratory distress- intubated in ICU Septic shock ( Had long talk with daughter Gali 01/19 ) - Acute renal failure and hyperKalemia - Renal failure, likely diabetic nephropathy / HTN - Sepsis , Pneumonia, Respiratory failure and Hypoxia other - h/o Cellulitis in diabetic foot right LE - Decubitus ulcer - Dementia - Diabetes mellitus - Nonpressure ulcer to level of fascia right lateral ankle - S/P ORIF right ankle Plan: intubate - ICU On hydrocortisone- Had permacath 01/30 Adjust BP meds- Clonidin PRN HD 02/17 Transfused addd phos binders monitor WBCs Monitor renal parameters and Vanco level- ARTUR Kidney done last admission- unremarkable Adjust BP meds- Avoid Nephrotoxics- discussed with CM Per orders Subjective ROS Limited/Unobtainable: Yes Allergies: Coded Allergies: MORPHINE (Verified Adverse Reaction, Severe, PARADOXICAL REACTION, 10/08/12 ) Objective Last 24 Hour Vital Signs Date Time Temp Pulse Resp B/P Pulse Ox O2 Delivery O2 Flow Rate FiO2 02/17/17 11:04 79 21 95 Mechanical Ventilator 02/17/17 11:02 68 24 50 02/17/17 11:00 82 22 85/36 92 Mechanical Ventilator 50 02/17/17 10:55 90 24 95 Mechanical Ventilator 50 02/17/17 10:00 74 22 98/40 92 Mechanical Ventilator 50 02/17/17 09:13 50 02/17/17 09:06 71 26 50 02/17/17 09:00 73 22 86/47 93 Mechanical Ventilator 50 02/17/17 08:30 97.2 78 26 105/55 95 Mechanical Ventilator 50 02/17/17 08:30 Mechanical Ventilator 50 02/17/17 08:00 98.1 70 24 110/84 96 Mechanical Ventilator 50 02/17/17 08:00 85 02/17/17 08:00 50 02/17/17 07:28 79 30 50 02/17/17 07:00 85 25 83/34 96 Mechanical Ventilator 50 02/17/17 06:00 85 25 96/41 96 Mechanical Ventilator 50 02/17/17 05:20 Mechanical Ventilator 50 02/17/17 05:00 79 25 109/41 95 Mechanical Ventilator 50 02/17/17 05:00 97.4 79 29 107/41 98 Mechanical Ventilator 50 18/17 04:41 85 29 50 18/17 04:00 98.4 85 27 107/41 95 Mechanical Ventilator 50 18/17 04:00 50 1817 04:00 87 18/17 03:24 98 32 50 18/17 03:00 87 27 113/47 95 Mechanical Ventilator 50 17 02:00 103 27 148/44 96 Mechanical Ventilator 50 17 01:02 102 30 50 17 01:00 103 27 148/44 96 Mechanical Ventilator 50 17 00:00 101 02/17/17 00:00 97.9 101 28 135/56 95 Mechanical Ventilator 50 02/17/17 00:00 50 02/16/17 23:49 148/49 02/16/17 23:06 96 35 50 02/16/17 23:00 96 27 148/49 96 Mechanical Ventilator 50 02/16/17 22:00 95 28 140/44 96 Mechanical Ventilator 50 02/16/17 21:10 94 31 50 02/16/17 21:00 94 27 139/47 97 Mechanical Ventilator 50 02/16/17 20:00 97 02/16/17 20:00 98.3 94 29 136/39 99 Mechanical Ventilator 50 02/16/17 20:00 50 02/16/17 19:36 93 29 50 02/16/17 19:00 94 21 123/40 99 Mechanical Ventilator 50 02/16/17 18:00 97 20 142/42 99 Mechanical Ventilator 50 02/16/17 17:00 97.8 99 21 132/42 99 Mechanical Ventilator 50 02/16/17 16:43 96 32 50 17 16:00 50 17 16:00 102 21 153/42 99 Mechanical Ventilator 50 02/16/17 16:00 97 17 15:04 92 26 100 Mechanical Ventilator 17 15:00 88 29 50 17 15:00 94 22 122/43 99 Mechanical Ventilator 50 02/16/17 14:50 88 26 100 Mechanical Ventilator 60 17 14:00 89 22 138/41 99 Mechanical Ventilator 50 02/16/17 13:00 94 23 138/45 99 Mechanical Ventilator 50 02/16/17 12:38 86 32 50 02/16/17 12:00 85 02/16/17 12:00 98.0 85 24 98/35 98 Mechanical Ventilator 50 Intake and Output 02/16/17 02/17/17 19:00 07:00 Intake Total 515 ml 420 ml Balance 515 ml 420 ml Free Water 40 ml IV Total 55 ml Tube Feeding 420 ml 420 ml # Bowel Movements 1 Laboratory Tests 02/17/17 05:20: White Blood Count 21.5H, Red Blood Count 3.17L, Hemoglobin 9.7L, Hematocrit 29.4L, Mean Corpuscular Volume 93, Mean Corpuscular Hemoglobin 30.6, Mean Corpuscular Hemoglobin Concent 33.0, Red Cell Distribution Width 16.1H, Platelet Count 64#L, Mean Platelet Volume 7.2, Neutrophils (%) (Auto) , Lymphocytes (%) (Auto) , Monocytes (%) (Auto) , Eosinophils (%) (Auto) , Basophils (%) (Auto) , Differential Total Cells Counted 100, Neutrophils % ( Manual) 94H, Lymphocytes % (Manual) 3L, Monocytes % (Manual) 3, Eosinophils % ( Manual) 0, Basophils % (Manual) 0, Band Neutrophils 0, Platelet Estimate DecreasedL, Platelet Morphology Normal, Hypochromasia 1+, Anisocytosis 1+, Sodium Level 138, Potassium Level 4.1, Chloride Level 95L, Carbon Dioxide Level 23, Anion Gap 20H, Blood Urea Nitrogen 153#H, Creatinine 6.1H, Estimat Glomerular Filtration Rate , Glucose Level 165H, Uric Acid 12.4H, Calcium Level 8.1L, Phosphorus Level 7.0H, Magnesium Level 2.2, Total Bilirubin 0.6, Gamma Glutamyl Transpeptidase 48H, Aspartate Amino Transf (AST/SGOT) 21, Alanine Aminotransferase (ALT/SGPT) 10, Alkaline Phosphatase 238H, C-Reactive Protein, Quantitative 1.8H, Pro-B-Type Natriuretic Peptide 88764X, Total Protein 4.2L, Albumin 2.1L, Globulin 2.1, Albumin/Globulin Ratio 1.0 02/17/17 10:30: Arterial Blood pH 7.306L, Arterial Blood Partial Pressure CO2 60.9*H, Arterial Blood Partial Pressure O2 43.1*L, Arterial Blood HCO3 29.7H, Arterial Blood Oxygen Saturation 74.6L, Arterial Blood Base Excess 2.3, Levy Test Positive Height (Feet): 5 Height (Inches): 1.00 Weight (Pounds): 200 General Appearance: no apparent distress Cardiovascular: normal rate Respiratory/Chest: decreased breath sounds Abdomen: soft Objective other PE not changed BERTRAM CASTAÑEDA Feb 17, 2017 11:57
--- NOTE | 2017-02-17 12:30 | Infectious Diseases Prog Note ---
Assessment/Plan Assessment/Plan ASSESSMENT: 76 y/o female with: // Probable UTI - UCx(-) // Hypoxia, possible HCAP Scx: ESBL Kleb - CXR 02/02 : Extensive bilateral interstitial and airspace opacities, unchanged // h/o CoNS bacteremia 11/05 ( 01/09 ) ?real ( PICC tip+ ) vs contaminant r/o recurrence/persistence - surveillance BCx(-) // h/o right ankle cellulitis / osteomyelitis / hardware infection SP incomplete Rx ( recommended to complete 6 weeks IV daptomycin, cefepime ( end ), but daughter apparently declined at last discharge per documentation ) - SP hardware removal 12/15 - no culture sent - 3P bone scan: 3 phase increased activity in region of distal aspect of right fibula compatible with hardware loosening and/or osteomyelitis - XR: surgical hardware seen reducing old healed distal fibular and medial malleolar fractures. No acute fractures. No dislocations. Bones are demineralized. - elevated ESR, CRP - h/o right ankle ORIF // Probable sepsis,SP // Leukocytosis , stable // VDRF intubated 02/07 // ARF on CKD --> IHD per renal SP placement of tunneled right jugular hemodialysis catheter. 01/29 // Dementia // DM2 - HbA1c 6.1% // h/o CAD - trop(-) x1 // NH resident // VRE colonized // No ABX allergies // Full Code PLAN: - on Merrem d# 11 /14 ( 02/07 SP DC Teflaro d# 10 ) ( 01/28 SP IV cefepime d# 10 IV Vanco d# 2 ) - monitor CBC, temperatures - monitor BMP - monitor CXR - respiratory support prn - DNR poor prognosis , Subjective Constitutional: Denies: anorexia, chills, drenching sweats, fatigue, fever, no symptoms, other Allergies: Coded Allergies: MORPHINE (Verified Adverse Reaction, Severe, PARADOXICAL REACTION, 10/08/12 ) Objective Vital Signs Last 24 Hour Vital Signs Date Time Temp Pulse Resp B/P Pulse Ox O2 Delivery O2 Flow Rate FiO2 02/17/17 11:04 79 21 95 Mechanical Ventilator 02/17/17 11:02 68 24 50 02/17/17 11:00 82 22 85/36 92 Mechanical Ventilator 50 4/18/17 10:55 90 24 95 Mechanical Ventilator 50 18/17 10:00 74 22 98/40 92 Mechanical Ventilator 50 18/17 09:13 50 418/17 09:06 71 26 50 18/17 09:00 73 22 86/47 93 Mechanical Ventilator 50 18/17 08:30 97.2 78 26 105/55 95 Mechanical Ventilator 50 18/17 08:30 Mechanical Ventilator 50 18/17 08:00 98.1 70 24 110/84 96 Mechanical Ventilator 50 18/17 08:00 85 18/17 08:00 50 18/17 07:28 79 30 50 /18/17 07:00 85 25 83/34 96 Mechanical Ventilator 50 02/17/17 06:00 85 25 96/41 96 Mechanical Ventilator 50 02/17/17 05:20 Mechanical Ventilator 50 18/17 05:00 79 25 109/41 95 Mechanical Ventilator 50 18/17 05:00 97.4 79 29 107/41 98 Mechanical Ventilator 50 18/17 04:41 85 29 50 18/17 04:00 98.4 85 27 107/41 95 Mechanical Ventilator 50 18/17 04:00 50 18/17 04:00 87 18/17 03:24 98 32 50 18/17 03:00 87 27 113/47 95 Mechanical Ventilator 50 02/17/17 02:00 103 27 148/44 96 Mechanical Ventilator 50 18/17 01:02 102 30 50 18/17 01:00 103 27 148/44 96 Mechanical Ventilator 50 17 00:00 101 1817 00:00 97.9 101 28 135/56 95 Mechanical Ventilator 50 18/17 00:00 50 02/16/17 23:49 148/49 02/16/17 23:06 96 35 50 02/16/17 23:00 96 27 148/49 96 Mechanical Ventilator 50 02/16/17 22:00 95 28 140/44 96 Mechanical Ventilator 50 02/16/17 21:10 94 31 50 02/16/17 21:00 94 27 139/47 97 Mechanical Ventilator 50 02/16/17 20:00 97 02/16/17 20:00 98.3 94 29 136/39 99 Mechanical Ventilator 50 4/17/17 20:00 50 02/16/17 19:36 93 29 50 02/16/17 19:00 94 21 123/40 99 Mechanical Ventilator 50 02/16/17 18:00 97 20 142/42 99 Mechanical Ventilator 50 02/16/17 17:00 97.8 99 21 132/42 99 Mechanical Ventilator 50 02/16/17 16:43 96 32 50 02/16/17 16:00 50 02/16/17 16:00 102 21 153/42 99 Mechanical Ventilator 50 02/16/17 16:00 97 02/16/17 15:04 92 26 100 Mechanical Ventilator 02/16/17 15:00 88 29 50 02/16/17 15:00 94 22 122/43 99 Mechanical Ventilator 50 02/16/17 14:50 88 26 100 Mechanical Ventilator 60 02/16/17 14:00 89 22 138/41 99 Mechanical Ventilator 50 02/16/17 13:00 94 23 138/45 99 Mechanical Ventilator 50 02/16/17 12:38 86 32 50 Height (Feet): 5 Height (Inches): 1.00 Weight (Pounds): 200 HEENT: atraumatic Respiratory/Chest: no respiratory distress Cardiovascular: regularly irregular Abdomen: no mass Microbiology Date/Time Source Procedure Growth Status 02/14/17 19:00 Stool Clostridium difficile Toxin Assay - Final Complete Laboratory Tests Test 02/17/17 05:20 02/17/17 10:30 White Blood Count 21.5 K/UL (4.8-10.8) H Red Blood Count 3.17 M/UL (4.20-5.40) L Hemoglobin 9.7 G/DL (12.0-16.0) L Hematocrit 29.4 % (37.0-47.0) L Mean Corpuscular Volume 93 FL (80-99) Mean Corpuscular Hemoglobin 30.6 PG (27.0-31.0) Mean Corpuscular Hemoglobin Concent 33.0 G/DL (32.0-36.0) Red Cell Distribution Width 16.1 % (11.6-14.8) H Platelet Count 64 K/UL (150-450) #L Mean Platelet Volume 7.2 FL (6.5-10.1) Neutrophils (%) (Auto) % (45.0-75.0) Lymphocytes (%) (Auto) % (20.0-45.0) Monocytes (%) (Auto) % (1.0-10.0) Eosinophils (%) (Auto) % (0.0-3.0) Basophils (%) (Auto) % (0.0-2.0) Differential Total Cells Counted 100 Neutrophils % (Manual) 94 % (45-75) H Lymphocytes % (Manual) 3 % (20-45) L Monocytes % (Manual) 3 % (1-10) Eosinophils % (Manual) 0 % (0-3) Basophils % (Manual) 0 % (0-2) Band Neutrophils 0 % (0-8) Platelet Estimate Decreased L Platelet Morphology Normal Hypochromasia 1+ Anisocytosis 1+ Sodium Level 138 mEQ/L (135-145) Potassium Level 4.1 mEQ/L (3.4-4.9) Chloride Level 95 mEQ/L (98-107) L Carbon Dioxide Level 23 mEQ/L (20-30) Anion Gap 20 (5-15) H Blood Urea Nitrogen 153 mg/dL (7-23) #H Creatinine 6.1 mg/dL (0.5-0.9) H Estimat Glomerular Filtration Rate mL/min (>60) Glucose Level 165 mg/dL (74-106) H Uric Acid 12.4 mg/dL (3.0-7.5) H Calcium Level 8.1 mg/dL (8.6-10.2) L Phosphorus Level 7.0 mg/dL (2.5-4.8) H Magnesium Level 2.2 mg/dL (1.7-2.5) Total Bilirubin 0.6 mg/dL (0.0-1.2) Gamma Glutamyl Transpeptidase 48 U/L (5-36) H Aspartate Amino Transf (AST/SGOT) 21 U/L (5-40) Alanine Aminotransferase (ALT/SGPT) 10 U/L (3-33) Alkaline Phosphatase 238 U/L (35-104) H C-Reactive Protein, Quantitative 1.8 mg/dL (< 0.5) H Pro-B-Type Natriuretic Peptide 27232 pg/mL (0-450) H Total Protein 4.2 g/dL (6.6-8.7) L Albumin 2.1 g/dL (3.5-5.2) L Globulin 2.1 g/dL Albumin/Globulin Ratio 1.0 (1.0-2.7) Arterial Blood pH 7.306 (7.350-7.450) Arterial Blood Partial Pressure CO2 60.9 mmHg (35.0-45.0) *H Arterial Blood Partial Pressure O2 43.1 mmHg (75.0-100.0) Arterial Blood HCO3 29.7 mmol/L (22.0-26.0) H Arterial Blood Oxygen Saturation 74.6 % (92.0-98.0) L Arterial Blood Base Excess 2.3 Levy Test Positive Current Medications Medications (Trade) Dose Ordered Sig/Rina Route PRN Reason Start Time Stop Time Status Last Admin Dose Admin Acetaminophen (Tylenol) 650 mg Q6H PRN ORAL Mild Pain/Temp > 100.5 02/07/17 17:00 03/09/17 16:59 Albuterol/ Ipratropium (DuoNeb 0.5-3(2.5)mg/3ml) 3 ml Q2H PRN HHN WHEEZING 02/15/17 23:00 02/20/17 22:59 02/17/17 11:01 Dextrose (Dextrose 50%) STAT PRN IV Hypoglycemia 02/07/17 17:00 03/09/17 16:59 Hydrocortisone 50 mg 50 mg EVERY 8 HOURS IV 02/16/17 14:00 03/18/17 13:59 02/17/17 06:03 Insulin Aspart (NovoLOG) Q6HR SUBQ 02/07/17 18:00 03/09/17 17:59 02/17/17 11:39 Menthol/Methyl Salicylate (Bengay) 1 applic FOUR TIMES A DAY TOPIC 02/07/17 18:00 03/09/17 17:59 02/17/17 09:11 Meropenem/Sodium Chloride (Merrem/Sodium Chloride) 55 ml @ 110 mls/hr DAILY@1400 IVPB 02/16/17 14:00 02/20/17 23:55 02/16/17 13:42 Nitroglycerin (Ntg) 0.4 mg Q5M X 3 DOSES PRN SL Prn Chest Pain 02/07/17 16:00 03/09/17 15:59 Norepinephrine Bitartrate/ Dextrose (Levophed/D5W 500ml) 558 ml @ 0 mls/hr Q24H IV 02/12/17 00:00 03/14/17 00:00 02/13/17 03:16 Ondansetron HCl (Zofran) 4 mg Q6H PRN IVP Nausea & Vomiting 02/07/17 17:00 03/09/17 16:59 02/11/17 10:59 Pantoprazole 40 mg 40 mg EVERY 12 HOURS IVP 02/07/17 21:00 03/09/17 20:59 02/17/17 09:11 Polyethylene Glycol (Miralax) 17 gm DAILYPRN PRN GT Constipation 02/07/17 17:00 03/09/17 16:59 Sevelamer Carbonate (Renvela) 1,600 mg THREE TIMES A DAY NG 02/17/17 13:00 03/19/17 12:59 GISELLA JEROME M.D. Feb 17, 2017 12:30
[2017-02-17] MEDS: Meropenem 500 MG in NS 55 ML IVPB SCH (13:17)
[2017-02-17] MEDS: Renvela 800mg Pkt NG SCH ×2 (13:17→17:44)
--- NOTE | 2017-02-17 13:45 | General Progress Note ---
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 bilateral right greater than left pleural effusions and mediastinal lymphadenopathy - she is a poor candidate for biopsy and has a poor prognosis # Anemia 2/2 chronic disease - s/p multiple units of blood # Leukocytosis - related to sepsis and underlying infection, is on antibiotics # Respiratory failure s/p intubation # Respiratory acidosis # Renal failure # ALOC # Sepsis Recs: - Considering terminal extubation, comfort care as per primary - Transfuse to hgb goal >7, plt goal >20k if bleeding --> conservative management - Give PRBC during HD due to hgb<7 - She is off heparin, plavix, aspirin - Agree to administer FFP if INR >2 - Does not require a biopsy as has poor prognosis and poor outcome at this time - OG feeds at maximal rate - Appreciate consultation! continue to follow Subjective ROS Limited/Unobtainable: Yes Constitutional: Reports: no symptoms HEENT: Reports: no symptoms Cardiovascular: Reports: no symptoms Respiratory: Reports: other Gastrointestinal/Abdominal: Reports: no symptoms Genitourinary: Reports: no symptoms 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: Reports: no symptoms Endocrine: Reports: no symptoms Hematologic/Lymphatic: Reports: anemia Allergies: Coded Allergies: MORPHINE (Verified Adverse Reaction, Severe, PARADOXICAL REACTION, 10/08/12 ) Subjective no hematochezia, no hemoptysis, pt received HD, pt dnr Objective Last 24 Hour Vital Signs Date Time Temp Pulse Resp B/P Pulse Ox O2 Delivery O2 Flow Rate FiO2 02/17/17 13:26 90 33 55 02/17/17 13:00 87 23 106/80 92 Mechanical Ventilator 50 02/17/17 12:00 97.9 82 22 101/77 92 Mechanical Ventilator 55 02/17/17 12:00 88 02/17/17 11:04 79 21 95 Mechanical Ventilator 02/17/17 11:02 68 24 50 02/17/17 11:00 82 22 85/36 92 Mechanical Ventilator 50 02/17/17 10:55 90 24 95 Mechanical Ventilator 50 02/17/17 10:00 74 22 98/40 92 Mechanical Ventilator 50 02/17/17 09:13 50 02/17/17 09:06 71 26 50 4/18/17 09:00 73 22 86/47 93 Mechanical Ventilator 50 18/17 08:30 97.2 78 26 105/55 95 Mechanical Ventilator 50 18/17 08:30 Mechanical Ventilator 50 18/17 08:00 98.1 70 24 110/84 96 Mechanical Ventilator 50 18/17 08:00 85 18/17 08:00 50 18/17 07:28 79 30 50 18/17 07:00 85 25 83/34 96 Mechanical Ventilator 50 18/17 06:00 85 25 96/41 96 Mechanical Ventilator 50 18/17 05:20 Mechanical Ventilator 50 18/17 05:00 79 25 109/41 95 Mechanical Ventilator 50 18/17 05:00 97.4 79 29 107/41 98 Mechanical Ventilator 50 18/17 04:41 85 29 50 18/17 04:00 98.4 85 27 107/41 95 Mechanical Ventilator 50 02/17/17 04:00 50 18/17 04:00 87 18/17 03:24 98 32 50 18/17 03:00 87 27 113/47 95 Mechanical Ventilator 50 18/17 02:00 103 27 148/44 96 Mechanical Ventilator 50 18/17 01:02 102 30 50 18/17 01:00 103 27 148/44 96 Mechanical Ventilator 50 18/17 00:00 101 18/17 00:00 97.9 101 28 135/56 95 Mechanical Ventilator 50 02/17/17 00:00 50 17 23:49 148/49 17 23:06 96 35 50 02/16/17 23:00 96 27 148/49 96 Mechanical Ventilator 50 02/16/17 22:00 95 28 140/44 96 Mechanical Ventilator 50 02/16/17 21:10 94 31 50 02/16/17 21:00 94 27 139/47 97 Mechanical Ventilator 50 02/16/17 20:00 97 02/16/17 20:00 98.3 94 29 136/39 99 Mechanical Ventilator 50 02/16/17 20:00 50 02/16/17 19:36 93 29 50 02/16/17 19:00 94 21 123/40 99 Mechanical Ventilator 50 02/16/17 18:00 97 20 142/42 99 Mechanical Ventilator 50 02/16/17 17:00 97.8 99 21 132/42 99 Mechanical Ventilator 50 02/16/17 16:43 96 32 50 02/16/17 16:00 50 02/16/17 16:00 102 21 153/42 99 Mechanical Ventilator 50 02/16/17 16:00 97 02/16/17 15:04 92 26 100 Mechanical Ventilator 02/16/17 15:00 88 29 50 02/16/17 15:00 94 22 122/43 99 Mechanical Ventilator 50 02/16/17 14:50 88 26 100 Mechanical Ventilator 60 02/16/17 14:00 89 22 138/41 99 Mechanical Ventilator 50 Intake and Output 02/16/17 02/17/17 19:00 07:00 Intake Total 515 ml 420 ml Balance 515 ml 420 ml Free Water 40 ml IV Total 55 ml Tube Feeding 420 ml 420 ml # Bowel Movements 1 Laboratory Tests 02/17/17 05:20: White Blood Count 21.5H, Red Blood Count 3.17L, Hemoglobin 9.7L, Hematocrit 29.4L, Mean Corpuscular Volume 93, Mean Corpuscular Hemoglobin 30.6, Mean Corpuscular Hemoglobin Concent 33.0, Red Cell Distribution Width 16.1H, Platelet Count 64#L, Mean Platelet Volume 7.2, Neutrophils (%) (Auto) , Lymphocytes (%) (Auto) , Monocytes (%) (Auto) , Eosinophils (%) (Auto) , Basophils (%) (Auto) , Differential Total Cells Counted 100, Neutrophils % ( Manual) 94H, Lymphocytes % (Manual) 3L, Monocytes % (Manual) 3, Eosinophils % ( Manual) 0, Basophils % (Manual) 0, Band Neutrophils 0, Platelet Estimate DecreasedL, Platelet Morphology Normal, Hypochromasia 1+, Anisocytosis 1+, Sodium Level 138, Potassium Level 4.1, Chloride Level 95L, Carbon Dioxide Level 23, Anion Gap 20H, Blood Urea Nitrogen 153#H, Creatinine 6.1H, Estimat Glomerular Filtration Rate , Glucose Level 165H, Uric Acid 12.4H, Calcium Level 8.1L, Phosphorus Level 7.0H, Magnesium Level 2.2, Total Bilirubin 0.6, Gamma Glutamyl Transpeptidase 48H, Aspartate Amino Transf (AST/SGOT) 21, Alanine Aminotransferase (ALT/SGPT) 10, Alkaline Phosphatase 238H, C-Reactive Protein, Quantitative 1.8H, Pro-B-Type Natriuretic Peptide 36787H, Total Protein 4.2L, Albumin 2.1L, Globulin 2.1, Albumin/Globulin Ratio 1.0 02/17/17 10:30: Arterial Blood pH 7.306L, Arterial Blood Partial Pressure CO2 60.9*H, Arterial Blood Partial Pressure O2 43.1*L, Arterial Blood HCO3 29.7H, Arterial Blood Oxygen Saturation 74.6L, Arterial Blood Base Excess 2.3, Levy Test Positive Height (Feet): 5 Height (Inches): 1.00 Weight (Pounds): 200 General Appearance: WD/WN EENT: other Cardiovascular: normal peripheral pulses Respiratory/Chest: decreased breath sounds Abdomen: normal bowel sounds Edema: mild edema Neurologic: crayon grader II-XII grossly normal Skin: warm/dry Mariano Ortiz Feb 17, 2017 13:45
--- NOTE | 2017-02-17 13:52 | Diagnostic Imaging Report ---
Indication: SOB Technique: One view of the chest Comparison: 02/16/2017 Findings: Stable satisfactory positions of endotracheal and nasogastric tubes. Right jugular tunneled dialysis catheter remains. The heart is enlarged. There is bilateral interstitial and alveolar edema. Findings are unchanged Impression: Unchanged, over one day, findings as above.
[2017-02-18] VITALS (23 sets, daily range): BP systolic 88–159; BP diastolic 34–62
[2017-02-18] MEDS: Norepinephrine Bitartrate 8 MG in D5W 500ml 550 ML IV SCH ×2
--- NOTE | 2017-02-18 02:38 | Progress Note ---
DATE: 02/17/2017 CARDIOLOGY PROGRESS NOTE SUBJECTIVE: The patient remains on ventilator support. She is off pressors now. Blood pressure control is adequate. OBJECTIVE: VITAL SIGNS: Blood pressure 110/84, pulse 70, and respirations 24. No fevers. Monitor atrial fibrillation. LUNGS: Bilateral breath sounds. Scattered rhonchi. HEART: Irregularly irregular rhythm. Normal S1, S2. ABDOMEN: Soft. EXTREMITIES: With 1+ dependent edema. LABORATORY DATA: White count 21.5, hemoglobin 9.7, and platelets 64,000. ABG 7.31, 61, 43. Sodium 138, potassium 4.1, bicarbonate 23, BUN 153, creatinine 6.1, and albumin 2.1. IMPRESSION: 1. Respiratory failure recovering shock. 2. Sepsis. 3. Disseminated intravascular coagulation. 4. Acute renal failure. 5. Acute on chronic diastolic congestive heart failure. 6. Severe protein-calorie malnutrition. 7. Paroxysmal atrial fibrillation. 8. Leukocytosis with rising white count. PLAN: 1. Optimize antihypertensive regimen as hemodynamics improved. 2. Hemodialysis with ultrafiltration. 3. Transfuse for hemoglobin below 8 grams. 4. Re-culture. 5. Adjust antibiotics accordingly. 6. Remains critical and guarded. Joss Rush M.D. DR: SHANNON JOB#: [id number] CC:
[2017-02-18 05:23] LABS: MEAN CORPUSCULAR HEMOGLOBIN 31.3 PG (27.0-31.0); MEAN CORPUSCULAR HGB CONC 33.9 G/DL (32.0-36.0); MEAN CORPUSCULAR VOLUME 92 FL (80-99); MEAN PLATELET VOLUME 9.8 FL (6.5-10.1); PLATELET COUNT 51 K/UL (150-450); RED BLOOD COUNT 3.04 M/UL (4.20-5.40); RED CELL DISTRIBUTION WIDTH 16.1 % (11.6-14.8); WHITE BLOOD COUNT 17.8 K/UL (4.8-10.8)
[2017-02-18] MEDS: Hydrocortisone 100mg Inj IV SCH ×3 (05:42→21:20)
[2017-02-18] MEDS: NovoLOG Insulin Flexpen SUBQ SCH ×4 (05:52→23:48)
[2017-02-18 06:24] LABS: ALANINE AMINOTRANSFERASE 10 U/L (3-33); ANION GAP 18 (5-15); ASPARTATE AMINO TRANSFERASE 22 U/L (5-40); CALCIUM 7.9 mg/dL (8.6-10.2); CARBON DIOXIDE 27 mEQ/L (20-30); CHLORIDE 94 mEQ/L (98-107); CREATININE 4.3 mg/dL (0.5-0.9); CRP QUANT 3.7 mg/dL (< 0.5); HEMOLYSIS 37; PHOSPHORUS 6.3 mg/dL (2.5-4.8); POTASSIUM 3.5 mEQ/L (3.4-4.9); SODIUM 139 mEQ/L (135-145)
[2017-02-18] MEDS: LORazepam Inj 2mg/ml 1ml IV PRN ×2 (06:34→14:49)
[2017-02-18] MEDS: DuoNeb 0.5-3(2.5)mg/3ml neb HHN PRN ×2 (09:12→15:18)
[2017-02-18] MEDS: Renvela 800mg Pkt NG SCH ×3 (09:16→18:19)
[2017-02-18] MEDS: Analgesic Balm 15gm TOPIC SCH ×4 (09:16→21:20)
[2017-02-18] MEDS: Pantoprazole Inj IVP SCH ×2 (09:17→21:20)
[2017-02-18 09:24] LABS: ANISOCYTOSIS 1+; BAND NEUTROPHILS % (MANUAL) 0 % (0-8); BASOPHILS % (MANUAL) 0 % (0-2); EOSINOPHILS % (MANUAL) 0 % (0-3); HYPOCHROMASIA 1+; LYMPHOCYTES % (MANUAL) 1 % (20-45); NEUTROPHILS % (MANUAL) 97 % (45-75); PLATELET ESTIMATE DECREASED; PLATELET MORPHOLOGY NORMAL; TOTAL CELLS COUNTED 100
[2017-02-18 09:30] LABS: ABG PCO2 51.2 mmHg (35.0-45.0)
[2017-02-18 09:31] LABS: ABG ALLEN TEST POSITIVE; ABG BASE EXCESS -0.4
[2017-02-18] MEDS ORDERED: Tubing IV Secondary IV ONE (09:46)
[2017-02-18] MEDS ORDERED: NS 275ml ONE (09:46)
--- NOTE | 2017-02-18 09:56 | Diagnostic Imaging Report ---
Indication: Abnormal liver function tests and renal function tests Technique: Mendoza-scale and duplex images of the upper abdomen were obtained Comparison: Renal ultrasound 01/10/2017, nuclear medicine hepatobiliary scan 05/23/2013, CT abdomen pelvis and 2012 Findings: Small amount of ascites is seen in the right upper quadrant and left upper quadrant Gallbladder is not visualized. Recent abdomen radiograph demonstrates cholecystectomy clips. Common bile duct measures 7 mm in diameter. No intrahepatic biliary ductal dilatation. Liver demonstrates slightly coarsened echotexture. No focal abnormality. Portal vein and hepatic veins are patent. Pancreas is unremarkable. Spleen is unremarkable. Left kidney measures 8.8 cm in length. Right kidney measures 11.3 cm length. Both kidneys demonstrate normal echogenicity. There is no hydronephrosis. No focal abnormality. As previously, right kidney demonstrates axis deviation. Abdominal aorta is partially obscured by bowel gas, visualized portions are non-aneurysmal. Impression: Surgically absent gallbladder. Negative for dilated ducts Echogenic bilateral kidneys, suggestive of medical renal disease. Negative for hydronephrosis Equivocally mildly coarsened hepatic echogenicity, hepatocellular disease not excludable. Trace ascites
[2017-02-18] MEDS: Meropenem 500 MG in NS 55 ML IVPB SCH (14:45)
--- NOTE | 2017-02-18 14:53 | Wound Care Consultation ---
Wound Assessment Wound Assessment #1: Wound Present on Admission: No New Wound: No Status Change of Wound: No Wound Location Body Site Modif: right Wound Location Body Site: ear - top of ear Wound Type: pressure ulcer Ewelina Test: Does not Ewelina Pressure Ulcer Stage: I Wound Length: 0.5 Wound Width: 0.5 Percent of Wound [place]/Red: 100 Wound Drainage Amount: None Wound Drainage Odor: None/Absent Tissue Surrounding Wound: Intact Wound General Appearance: Reddened Wound Assessment #2: Wound Number: #2 Wound Present on Admission: Yes New Wound: No Status Change of Wound: No Wound Location Body Site Modif: right, anterior Wound Location Body Site: ear Wound Type: pressure ulcer Ewelina Test: Does not Ewelina Pressure Ulcer Stage: I Wound Length: 0.5 Wound Width: 0.5 Percent of Wound [place]/Red: 100 Wound Drainage Amount: None Wound Drainage Odor: None/Absent Tissue Surrounding Wound: Intact Wound General Appearance: Reddened Wound Assessment #3: Wound Number: #3 Wound Present on Admission: No New Wound: No Status Change of Wound: Yes Wound Location Body Site Modif: mid Wound Location Body Site: sacral Wound Type: pressure ulcer Ewelina Test: Does not Ewelina Pressure Ulcer Stage: deep tissue injury Wound Thickness: Full Thickness Wound Length: 3.0 Wound Width: 2.5 Wound Depth: utd Percent of Wound Purple/Maroon: 100 Wound Drainage Amount: None Wound Drainage Odor: None/Absent Tissue Surrounding Wound: Erythemic Wound General Appearance: Reddened Wound Comment #1 Left top of the ear pressure ulcer stage I #2 Right top of the ear pressure ulcer stage I #3 Sacral area DTI pressure ulcer Recommendation -Local wound care for SDTI on sacral area -Wrap 4x4 gauze on N/C tubing before applying on the Pt's ear to avoid pressure ulcer -Keep clean and dry -Turn and reposition -Optimize nutrition -Offload both heels -Heel protector -Proper lifting and repositioning techniques to avoid shearing and friction -Assess and f/u accordingly for any changes KUN SON RN Feb 18, 2017 14:53
--- NOTE | 2017-02-18 15:02 | Diagnostic Imaging Report ---
Indication: Shortness of breath Technique: One view of the chest Comparison: 02/17/2017 Findings: Stable satisfactory positions of endotracheal tube, nasogastric tube, dialysis catheter. Allowing for technical differences, stable or perhaps minimally improved diffuse interstitial and alveolar opacities. Stable probable small bilateral pleural effusions. Impression: Diffuse parenchymal disease, unchanged or perhaps minimally improved over one day Other stable findings as described
--- NOTE | 2017-02-18 16:32 | General Progress Note ---
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 bilateral right greater than left pleural effusions and mediastinal lymphadenopathy - she is a poor candidate for biopsy and has a poor prognosis # Anemia 2/2 chronic disease - s/p multiple units of blood # Leukocytosis - related to sepsis and underlying infection, is on antibiotics # Respiratory failure s/p intubation # Respiratory acidosis # Renal failure- pt on HD # ALOC # Sepsis Recs: - Considering terminal extubation, comfort care as per primary - Transfuse to hgb goal >7, plt goal >20k if bleeding --> conservative management - Give PRBC during HD due to hgb<7 - She is off heparin, plavix, aspirin - Agree to administer FFP if INR >2 - Does not require a biopsy as has poor prognosis and poor outcome at this time - OG feeds at maximal rate - Appreciate consultation! continue to follow Subjective ROS Limited/Unobtainable: Yes Constitutional: Reports: no symptoms HEENT: Reports: no symptoms Cardiovascular: Reports: no symptoms Respiratory: Reports: other - ventilator Gastrointestinal/Abdominal: Reports: no symptoms Genitourinary: Reports: other - anuric 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: Reports: no symptoms Endocrine: Reports: no symptoms Hematologic/Lymphatic: Reports: anemia Allergies: Coded Allergies: MORPHINE (Verified Adverse Reaction, Severe, PARADOXICAL REACTION, 10/08/12 ) Subjective no hematochezia, no hemoptysis, pt obtunded Objective Last 24 Hour Vital Signs Date Time Temp Pulse Resp B/P Pulse Ox O2 Delivery O2 Flow Rate FiO2 02/18/17 16:00 55 02/18/17 16:00 71 02/18/17 15:21 73 21 99 Mechanical Ventilator 02/18/17 15:19 81 20 55 02/18/17 15:10 79 20 99 Mechanical Ventilator 50 02/18/17 14:00 75 27 95/41 99 Mechanical Ventilator 55 02/18/17 13:00 71 27 102/45 99 Mechanical Ventilator 55 02/18/17 13:00 72 28 55 02/18/17 12:00 68 02/18/17 12:00 55 02/18/17 12:00 97.3 71 29 88/42 97 Mechanical Ventilator 55 02/18/17 11:23 77 17 55 02/18/17 11:00 72 22 118/49 100 Mechanical Ventilator 55 02/18/17 10:00 68 29 118/49 100 Mechanical Ventilator 55 02/18/17 09:25 71 29 97 Mechanical Ventilator 02/18/17 09:10 77 28 95 Mechanical Ventilator 50 02/18/17 09:04 70 29 55 02/18/17 08:00 55 02/18/17 08:00 97.4 68 30 97/47 100 Mechanical Ventilator 55 02/18/17 08:00 66 02/18/17 07:16 74 16 55 02/18/17 07:00 68 29 104/48 100 Mechanical Ventilator 55 02/18/17 06:00 73 29 137/54 100 Mechanical Ventilator 55 02/18/17 05:05 84 28 55 02/18/17 05:00 73 29 154/62 96 Mechanical Ventilator 55 02/18/17 04:00 98.2 71 29 123/45 96 Mechanical Ventilator 55 02/18/17 04:00 74 02/18/17 04:00 55 02/18/17 03:06 70 35 55 02/18/17 03:00 71 29 107/45 96 Mechanical Ventilator 55 02/18/17 02:00 73 29 106/42 96 Mechanical Ventilator 55 02/18/17 01:17 82 31 55 02/18/17 01:00 82 26 140/51 96 Mechanical Ventilator 55 02/18/17 00:00 78 02/18/17 00:00 97.9 81 23 123/45 94 Mechanical Ventilator 55 02/18/17 00:00 115/79 02/18/17 00:00 55 02/17/17 23:20 79 31 55 02/17/17 23:00 89 30 115/79 96 Mechanical Ventilator 55 02/17/17 22:00 84 30 128/56 94 Mechanical Ventilator 55 02/17/17 21:00 81 26 121/53 99 Mechanical Ventilator 55 02/17/17 20:55 74 28 55 02/17/17 20:00 55 02/17/17 20:00 98.4 79 25 99/40 96 Mechanical Ventilator 55 02/17/17 20:00 71 02/17/17 19:07 85 29 55 02/17/17 19:00 72 24 83/37 100 Mechanical Ventilator 55 02/17/17 18:00 83 25 126/39 100 Mechanical Ventilator 55 02/17/17 17:03 91 36 55 02/17/17 17:00 85 28 128/46 94 Mechanical Ventilator 55 Intake and Output 02/17/17 02/18/17 19:00 07:00 Intake Total 120 ml 420 ml Output Total 1000 ml 0 ml Balance -880 ml 420 ml IV Total 55 ml Tube Feeding 35 ml 420 ml Other 30 ml Output Urine Total 0 ml Hemodialysis UF 1000 ml # Bowel Movements 6 4 Laboratory Tests 02/18/17 04:15: White Blood Count 17.8H, Red Blood Count 3.04L, Hemoglobin 9.5L, Hematocrit 28.0L, Mean Corpuscular Volume 92, Mean Corpuscular Hemoglobin 31.3H, Mean Corpuscular Hemoglobin Concent 33.9, Red Cell Distribution Width 16.1H, Platelet Count 51L, Mean Platelet Volume 9.8, Neutrophils (%) (Auto) , Lymphocytes (%) (Auto) , Monocytes (%) (Auto) , Eosinophils (%) (Auto) , Basophils (%) (Auto) , Differential Total Cells Counted 100, Neutrophils % ( Manual) 97H, Lymphocytes % (Manual) 1L, Monocytes % (Manual) 2, Eosinophils % ( Manual) 0, Basophils % (Manual) 0, Band Neutrophils 0, Platelet Estimate DecreasedL, Platelet Morphology Normal, Hypochromasia 1+, Anisocytosis 1+, Sodium Level 139, Potassium Level 3.5, Chloride Level 94L, Carbon Dioxide Level 27, Anion Gap 18H, Blood Urea Nitrogen 99#H, Creatinine 4.3H, Estimat Glomerular Filtration Rate , Glucose Level 217H, Calcium Level 7.9L, Phosphorus Level 6.3H, Total Bilirubin 0.6, Aspartate Amino Transf (AST/SGOT) 22, Alanine Aminotransferase (ALT/SGPT) 10, Alkaline Phosphatase 200H, C-Reactive Protein, Quantitative 3.7H, Pro-B-Type Natriuretic Peptide 92184E, Total Protein 4.0L, Albumin 2.0L, Globulin 2.0, Albumin/Globulin Ratio 1.0 02/18/17 09:00: Arterial Blood pH 7.324L, Arterial Blood Partial Pressure CO2 51.2H, Arterial Blood Partial Pressure O2 49.9*L, Arterial Blood HCO3 26.0, Arterial Blood Oxygen Saturation 81.3L, Arterial Blood Base Excess -0.4, Levy Test Positive Height (Feet): 5 Height (Inches): 1.00 Weight (Pounds): 200 General Appearance: no apparent distress EENT: PERRL/EOMI Neck: non-tender Cardiovascular: normal peripheral pulses Respiratory/Chest: chest wall non-tender Abdomen: hypoactive bowel sounds Extremities: normal range of motion Edema: 1+ Arm (L), 1+ Arm (R), no edema noted Leg (L), no edema noted Leg (R), 1+ Pedal (L), 1+ Pedal (R) 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
--- NOTE | 2017-02-18 16:32 | General Progress Note ---
Assessment/Plan Status: stable Assessment/Plan Has acute respiratory distress- intubated in ICU Septic shock ( Had long talk with daughter Gali 01/19 ) - Acute renal failure and hyperKalemia - Renal failure, likely diabetic nephropathy / HTN - Sepsis , Pneumonia, Respiratory failure and Hypoxia other - h/o Cellulitis in diabetic foot right LE - Decubitus ulcer - Dementia - Diabetes mellitus - Nonpressure ulcer to level of fascia right lateral ankle - S/P ORIF right ankle Plan: intubate - ICU On hydrocortisone- Had permacath 01/30 Adjust BP meds- Clonidin PRN HD 02/19 Transfused addd phos binders monitor WBCs Monitor renal parameters and Vanco level- ARTUR Kidney done last admission- unremarkable Adjust BP meds- Avoid Nephrotoxics- discussed with CM Per orders Subjective ROS Limited/Unobtainable: Yes Allergies: Coded Allergies: MORPHINE (Verified Adverse Reaction, Severe, PARADOXICAL REACTION, 10/08/12 ) Objective Last 24 Hour Vital Signs Date Time Temp Pulse Resp B/P Pulse Ox O2 Delivery O2 Flow Rate FiO2 02/18/17 16:00 55 02/18/17 16:00 71 02/18/17 15:21 73 21 99 Mechanical Ventilator 02/18/17 15:19 81 20 55 02/18/17 15:10 79 20 99 Mechanical Ventilator 50 02/18/17 14:00 75 27 95/41 99 Mechanical Ventilator 55 02/18/17 13:00 71 27 102/45 99 Mechanical Ventilator 55 02/18/17 13:00 72 28 55 02/18/17 12:00 68 02/18/17 12:00 55 02/18/17 12:00 97.3 71 29 88/42 97 Mechanical Ventilator 55 02/18/17 11:23 77 17 55 02/18/17 11:00 72 22 118/49 100 Mechanical Ventilator 55 02/18/17 10:00 68 29 118/49 100 Mechanical Ventilator 55 02/18/17 09:25 71 29 97 Mechanical Ventilator 02/18/17 09:10 77 28 95 Mechanical Ventilator 50 02/18/17 09:04 70 29 55 02/18/17 08:00 55 02/18/17 08:00 97.4 68 30 97/47 100 Mechanical Ventilator 55 02/18/17 08:00 66 02/18/17 07:16 74 16 55 02/18/17 07:00 68 29 104/48 100 Mechanical Ventilator 55 02/18/17 06:00 73 29 137/54 100 Mechanical Ventilator 55 02/18/17 05:05 84 28 55 02/18/17 05:00 73 29 154/62 96 Mechanical Ventilator 55 02/18/17 04:00 98.2 71 29 123/45 96 Mechanical Ventilator 55 02/18/17 04:00 74 02/18/17 04:00 55 02/18/17 03:06 70 35 55 02/18/17 03:00 71 29 107/45 96 Mechanical Ventilator 55 02/18/17 02:00 73 29 106/42 96 Mechanical Ventilator 55 02/18/17 01:17 82 31 55 02/18/17 01:00 82 26 140/51 96 Mechanical Ventilator 55 02/18/17 00:00 78 02/18/17 00:00 97.9 81 23 123/45 94 Mechanical Ventilator 55 02/18/17 00:00 115/79 02/18/17 00:00 55 02/17/17 23:20 79 31 55 02/17/17 23:00 89 30 115/79 96 Mechanical Ventilator 55 02/17/17 22:00 84 30 128/56 94 Mechanical Ventilator 55 02/17/17 21:00 81 26 121/53 99 Mechanical Ventilator 55 02/17/17 20:55 74 28 55 02/17/17 20:00 55 02/17/17 20:00 98.4 79 25 99/40 96 Mechanical Ventilator 55 02/17/17 20:00 71 02/17/17 19:07 85 29 55 02/17/17 19:00 72 24 83/37 100 Mechanical Ventilator 55 02/17/17 18:00 83 25 126/39 100 Mechanical Ventilator 55 02/17/17 17:03 91 36 55 02/17/17 17:00 85 28 128/46 94 Mechanical Ventilator 55 Intake and Output 02/17/17 02/18/17 19:00 07:00 Intake Total 120 ml 420 ml Output Total 1000 ml 0 ml Balance -880 ml 420 ml IV Total 55 ml Tube Feeding 35 ml 420 ml Other 30 ml Output Urine Total 0 ml Hemodialysis UF 1000 ml # Bowel Movements 6 4 Laboratory Tests 02/18/17 04:15: White Blood Count 17.8H, Red Blood Count 3.04L, Hemoglobin 9.5L, Hematocrit 28.0L, Mean Corpuscular Volume 92, Mean Corpuscular Hemoglobin 31.3H, Mean Corpuscular Hemoglobin Concent 33.9, Red Cell Distribution Width 16.1H, Platelet Count 51L, Mean Platelet Volume 9.8, Neutrophils (%) (Auto) , Lymphocytes (%) (Auto) , Monocytes (%) (Auto) , Eosinophils (%) (Auto) , Basophils (%) (Auto) , Differential Total Cells Counted 100, Neutrophils % ( Manual) 97H, Lymphocytes % (Manual) 1L, Monocytes % (Manual) 2, Eosinophils % ( Manual) 0, Basophils % (Manual) 0, Band Neutrophils 0, Platelet Estimate DecreasedL, Platelet Morphology Normal, Hypochromasia 1+, Anisocytosis 1+, Sodium Level 139, Potassium Level 3.5, Chloride Level 94L, Carbon Dioxide Level 27, Anion Gap 18H, Blood Urea Nitrogen 99#H, Creatinine 4.3H, Estimat Glomerular Filtration Rate , Glucose Level 217H, Calcium Level 7.9L, Phosphorus Level 6.3H, Total Bilirubin 0.6, Aspartate Amino Transf (AST/SGOT) 22, Alanine Aminotransferase (ALT/SGPT) 10, Alkaline Phosphatase 200H, C-Reactive Protein, Quantitative 3.7H, Pro-B-Type Natriuretic Peptide 91943E, Total Protein 4.0L, Albumin 2.0L, Globulin 2.0, Albumin/Globulin Ratio 1.0 02/18/17 09:00: Arterial Blood pH 7.324L, Arterial Blood Partial Pressure CO2 51.2H, Arterial Blood Partial Pressure O2 49.9*L, Arterial Blood HCO3 26.0, Arterial Blood Oxygen Saturation 81.3L, Arterial Blood Base Excess -0.4, Levy Test Positive Height (Feet): 5 Height (Inches): 1.00 Weight (Pounds): 200 General Appearance: no apparent distress Objective other PE not changed BERTRAM CASTAÑEDA Feb 18, 2017 16:32
--- NOTE | 2017-02-18 16:50 | Critical Care Progress Note ---
Assessment/Plan Assessment/Plan hypoxemia respiratory failure respiratory acidosis pulmonary infiltrates thrombocytopenia renal failure ALOC chronic encephalopathy septic shock leukocytosis pulmonary infiltrates ARDS DIC likely s/p transfusion atrial fibrillation hypotension PLAN off heparin, plavix, aspirin platelets slowly improving follow up labs and adjust levophed off monitor renal function; on HD per renal antibiotics noted taper fio2; as able; saturation better reduce PEEP further on 8 and reduce to 5 follow up ABG and CXR prognosis remains poor; wbc improvement family encouraged of improvement and would want to hold on terminal extubation wean hope to wean as able medications/laboratory data/nursing notes/ICU care reviewed in detail note reviewed and edited care discussed with RN and RT ICU time spent 35 minutes Critical Care - Subjective Interval Events: d/w son in detail d/w sw monitor ability to wean abg likely venous ROS Limited/Unobtainable: Yes Condition: critical EKG Rhythm: Sinus Rhythm Residuals: minimal Tube Feeding Tolerated: yes I&O: Intake and Output 02/17/17 02/18/17 19:00 07:00 Intake Total 120 ml 420 ml Output Total 1000 ml 0 ml Balance -880 ml 420 ml IV Total 55 ml Tube Feeding 35 ml 420 ml Other 30 ml Output Urine Total 0 ml Hemodialysis UF 1000 ml # Bowel Movements 6 4 Critical Care - Objective ET-Tube: 7.0 ET Position: 22 Last 24 Hour Vital Signs Date Time Temp Pulse Resp B/P Pulse Ox O2 Delivery O2 Flow Rate FiO2 02/18/17 16:00 55 02/18/17 16:00 71 02/18/17 15:21 73 21 99 Mechanical Ventilator 02/18/17 15:19 81 20 55 02/18/17 15:10 79 20 99 Mechanical Ventilator 50 02/18/17 14:00 75 27 95/41 99 Mechanical Ventilator 55 02/18/17 13:00 71 27 102/45 99 Mechanical Ventilator 55 02/18/17 13:00 72 28 55 02/18/17 12:00 68 02/18/17 12:00 55 02/18/17 12:00 97.3 71 29 88/42 97 Mechanical Ventilator 55 02/18/17 11:23 77 17 55 02/18/17 11:00 72 22 118/49 100 Mechanical Ventilator 55 02/18/17 10:00 68 29 118/49 100 Mechanical Ventilator 55 02/18/17 09:25 71 29 97 Mechanical Ventilator 02/18/17 09:10 77 28 95 Mechanical Ventilator 50 02/18/17 09:04 70 29 55 02/18/17 08:00 55 02/18/17 08:00 97.4 68 30 97/47 100 Mechanical Ventilator 55 02/18/17 08:00 66 02/18/17 07:16 74 16 55 02/18/17 07:00 68 29 104/48 100 Mechanical Ventilator 55 02/18/17 06:00 73 29 137/54 100 Mechanical Ventilator 55 02/18/17 05:05 84 28 55 02/18/17 05:00 73 29 154/62 96 Mechanical Ventilator 55 02/18/17 04:00 98.2 71 29 123/45 96 Mechanical Ventilator 55 02/18/17 04:00 74 02/18/17 04:00 55 02/18/17 03:06 70 35 55 02/18/17 03:00 71 29 107/45 96 Mechanical Ventilator 55 02/18/17 02:00 73 29 106/42 96 Mechanical Ventilator 55 02/18/17 01:17 82 31 55 02/18/17 01:00 82 26 140/51 96 Mechanical Ventilator 55 02/18/17 00:00 78 02/18/17 00:00 97.9 81 23 123/45 94 Mechanical Ventilator 55 02/18/17 00:00 115/79 02/18/17 00:00 55 02/17/17 23:20 79 31 55 02/17/17 23:00 89 30 115/79 96 Mechanical Ventilator 55 02/17/17 22:00 84 30 128/56 94 Mechanical Ventilator 55 02/17/17 21:00 81 26 121/53 99 Mechanical Ventilator 55 02/17/17 20:55 74 28 55 02/17/17 20:00 55 02/17/17 20:00 98.4 79 25 99/40 96 Mechanical Ventilator 55 02/17/17 20:00 71 02/17/17 19:07 85 29 55 02/17/17 19:00 72 24 83/37 100 Mechanical Ventilator 55 02/17/17 18:00 83 25 126/39 100 Mechanical Ventilator 55 02/17/17 17:03 91 36 55 02/17/17 17:00 85 28 128/46 94 Mechanical Ventilator 55 Labs: Labs Test 02/16/17 05:00 02/17/17 05:20 4/18/17 10:30 02/18/17 04:15 White Blood Count 15.0 K/UL (4.8-10.8) 21.5 K/UL (4.8-10.8) 17.8 K/UL (4.8-10.8) Red Blood Count 3.39 M/UL (4.20-5.40) 3.17 M/UL (4.20-5.40) 3.04 M/UL (4.20-5.40) Hemoglobin 10.4 G/DL (12.0-16.0) 9.7 G/DL (12.0-16.0) 9.5 G/DL (12.0-16.0) Hematocrit 31.1 % (37.0-47.0) 29.4 % (37.0-47.0) 28.0 % (37.0-47.0) Mean Corpuscular Volume 92 FL (80-99) 93 FL (80-99) 92 FL (80-99) Mean Corpuscular Hemoglobin 30.7 PG (27.0-31.0) 30.6 PG (27.0-31.0) 31.3 PG (27.0-31.0) Mean Corpuscular Hemoglobin Concent 33.5 G/DL (32.0-36.0) 33.0 G/DL (32.0-36.0) 33.9 G/DL (32.0-36.0) Red Cell Distribution Width 15.5 % (11.6-14.8) 16.1 % (11.6-14.8) 16.1 % (11.6-14.8) Platelet Count 42 K/UL (150-450) 64 K/UL (150-450) 51 K/UL (150-450) Mean Platelet Volume 8.6 FL (6.5-10.1) 7.2 FL (6.5-10.1) 9.8 FL (6.5-10.1) Neutrophils (%) (Auto) % (45.0-75.0) % (45.0-75.0) % (45.0-75.0) Lymphocytes (%) (Auto) % (20.0-45.0) % (20.0-45.0) % (20.0-45.0) Monocytes (%) (Auto) % (1.0-10.0) % (1.0-10.0) % (1.0-10.0) Eosinophils (%) (Auto) % (0.0-3.0) % (0.0-3.0) % (0.0-3.0) Basophils (%) (Auto) % (0.0-2.0) % (0.0-2.0) % (0.0-2.0) Differential Total Cells Counted 100 100 100 Neutrophils % (Manual) 94 % (45-75) 94 % (45-75) 97 % (45-75) Lymphocytes % (Manual) 3 % (20-45) 3 % (20-45) 1 % (20-45) Monocytes % (Manual) 3 % (1-10) 3 % (1-10) 2 % (1-10) Eosinophils % (Manual) 0 % (0-3) 0 % (0-3) 0 % (0-3) Basophils % (Manual) 0 % (0-2) 0 % (0-2) 0 % (0-2) Band Neutrophils 0 % (0-8) 0 % (0-8) 0 % (0-8) Platelet Estimate Decreased Decreased Decreased Platelet Morphology Normal Normal Normal Hypochromasia 1+ 1+ 1+ Anisocytosis 1+ 1+ 1+ Sodium Level 138 mEQ/L (135-145) 138 mEQ/L (135-145) 139 mEQ/L (135-145) Potassium Level 4.2 mEQ/L (3.4-4.9) 4.1 mEQ/L (3.4-4.9) 3.5 mEQ/L (3.4-4.9) Chloride Level 94 mEQ/L (98-107) 95 mEQ/L (98-107) 94 mEQ/L (98-107) Carbon Dioxide Level 24 mEQ/L (20-30) 23 mEQ/L (20-30) 27 mEQ/L (20-30) Anion Gap 20 (5-15) 20 (5-15) 18 (5-15) Blood Urea Nitrogen 122 mg/dL (7-23) 153 mg/dL (7-23) 99 mg/dL (7-23) Creatinine 5.2 mg/dL (0.5-0.9) 6.1 mg/dL (0.5-0.9) 4.3 mg/dL (0.5-0.9) Estimat Glomerular Filtration Rate mL/min (>60) mL/min (>60) mL/min (>60) Glucose Level 229 mg/dL (74-106) 165 mg/dL (74-106) 217 mg/dL (74-106) Uric Acid 10.9 mg/dL (3.0-7.5) 12.4 mg/dL (3.0-7.5) Calcium Level 8.2 mg/dL (8.6-10.2) 8.1 mg/dL (8.6-10.2) 7.9 mg/dL (8.6-10.2) Phosphorus Level 6.7 mg/dL (2.5-4.8) 7.0 mg/dL (2.5-4.8) 6.3 mg/dL (2.5-4.8) Magnesium Level 2.2 mg/dL (1.7-2.5) 2.2 mg/dL (1.7-2.5) Total Bilirubin 0.6 mg/dL (0.0-1.2) 0.6 mg/dL (0.0-1.2) 0.6 mg/dL (0.0-1.2) Aspartate Amino Transf (AST/SGOT) 21 U/L (5-40) 21 U/L (5-40) 22 U/L (5-40) Alanine Aminotransferase (ALT/SGPT) 12 U/L (3-33) 10 U/L (3-33) 10 U/L (3-33) Alkaline Phosphatase 288 U/L (35-104) 238 U/L (35-104) 200 U/L (35-104) C-Reactive Protein, Quantitative 3.8 mg/dL (< 0.5) 1.8 mg/dL (< 0.5) 3.7 mg/dL (< 0.5) Pro-B-Type Natriuretic Peptide 44188 pg/mL (0-450) 05209 pg/mL (0-450) 29940 pg/mL (0-450) Total Protein 4.5 g/dL (6.6-8.7) 4.2 g/dL (6.6-8.7) 4.0 g/dL (6.6-8.7) Albumin 2.1 g/dL (3.5-5.2) 2.1 g/dL (3.5-5.2) 2.0 g/dL (3.5-5.2) Globulin 2.4 g/dL 2.1 g/dL 2.0 g/dL Albumin/Globulin Ratio 0.8 (1.0-2.7) 1.0 (1.0-2.7) 1.0 (1.0-2.7) Gamma Glutamyl Transpeptidase 48 U/L (5-36) Arterial Blood pH 7.306 (7.350-7.450) Arterial Blood Partial Pressure CO2 60.9 mmHg (35.0-45.0) Arterial Blood Partial Pressure O2 43.1 mmHg (75.0-100.0) Arterial Blood HCO3 29.7 mmol/L (22.0-26.0) Arterial Blood Oxygen Saturation 74.6 % (92.0-98.0) Arterial Blood Base Excess 2.3 Levy Test Positive Test 02/18/17 09:00 Arterial Blood pH 7.324 (7.350-7.450) Arterial Blood Partial Pressure CO2 51.2 mmHg (35.0-45.0) Arterial Blood Partial Pressure O2 49.9 mmHg (75.0-100.0) Arterial Blood HCO3 26.0 mmol/L (22.0-26.0) Arterial Blood Oxygen Saturation 81.3 % (92.0-98.0) Arterial Blood Base Excess -0.4 Levy Test Positive Objective: WDWN chronically ill appearing; on the ventilator NAD coarse breath sounds bilaterally with reduced rhonchi but no wheeze orally intubated S1S2 RRR without MRG; rate controlled NABS nontender no HSM; feeding tube in place; no distention no CC; some edema but slightly improved nonfocal but arouseable more alert skin noted and examined pupils sluggish Accucheck: 210 FELIPE PATHAK Feb 18, 2017 16:50
--- NOTE | 2017-02-18 17:49 | Infectious Diseases Prog Note ---
Assessment/Plan Assessment/Plan ASSESSMENT: 76 y/o female with: // Probable UTI - UCx(-) // Hypoxia, possible HCAP Scx: ESBL Kleb - CXR 02/02 : Extensive bilateral interstitial and airspace opacities, unchanged // h/o CoNS bacteremia 11/05 ( 01/09 ) ?real ( PICC tip+ ) vs contaminant r/o recurrence/persistence - surveillance BCx(-) // h/o right ankle cellulitis / osteomyelitis / hardware infection SP incomplete Rx ( recommended to complete 6 weeks IV daptomycin, cefepime ( end ), but daughter apparently declined at last discharge per documentation ) - SP hardware removal 12/15 - no culture sent - 3P bone scan: 3 phase increased activity in region of distal aspect of right fibula compatible with hardware loosening and/or osteomyelitis - XR: surgical hardware seen reducing old healed distal fibular and medial malleolar fractures. No acute fractures. No dislocations. Bones are demineralized. - elevated ESR, CRP - h/o right ankle ORIF // Probable sepsis,SP // Leukocytosis , stable // ..US abd :neg of infectious process // VDRF intubated 02/07 // ARF on CKD --> IHD per renal SP placement of tunneled right jugular hemodialysis catheter. 01/29 // Dementia // DM2 - HbA1c 6.1% // h/o CAD - trop(-) x1 // NH resident // VRE colonized // No ABX allergies // Full Code PLAN: - on Merrem d# 12 /14 ( 02/07 SP DC Teflaro d# 10 ) ( 01/28 SP IV cefepime d# 10 IV Vanco d# 2 ) - monitor CBC, temperatures - monitor BMP - monitor CXR - respiratory support prn - DNR poor prognosis , Subjective Constitutional: Denies: anorexia, chills, drenching sweats, fatigue, fever, no symptoms, other Allergies: Coded Allergies: MORPHINE (Verified Adverse Reaction, Severe, PARADOXICAL REACTION, 10/08/12 ) Objective Vital Signs Last 24 Hour Vital Signs Date Time Temp Pulse Resp B/P Pulse Ox O2 Delivery O2 Flow Rate FiO2 02/18/17 17:18 72 32 55 02/18/17 17:00 75 23 121/34 96 Mechanical Ventilator 55 02/18/17 16:00 99.1 72 25 102/46 99 Mechanical Ventilator 55 02/18/17 16:00 55 02/18/17 16:00 71 02/18/17 15:21 73 21 99 Mechanical Ventilator 02/18/17 15:19 81 20 55 02/18/17 15:10 79 20 99 Mechanical Ventilator 50 02/18/17 15:00 72 25 104/44 99 Mechanical Ventilator 55 02/18/17 14:00 75 27 95/41 99 Mechanical Ventilator 55 02/18/17 13:00 71 27 102/45 99 Mechanical Ventilator 55 02/18/17 13:00 72 28 55 02/18/17 12:00 68 02/18/17 12:00 55 02/18/17 12:00 97.3 71 29 88/42 97 Mechanical Ventilator 55 02/18/17 11:23 77 17 55 02/18/17 11:00 72 22 118/49 100 Mechanical Ventilator 55 02/18/17 10:00 68 29 118/49 100 Mechanical Ventilator 55 02/18/17 09:25 71 29 97 Mechanical Ventilator 02/18/17 09:10 77 28 95 Mechanical Ventilator 50 02/18/17 09:04 70 29 55 02/18/17 08:00 55 02/18/17 08:00 97.4 68 30 97/47 100 Mechanical Ventilator 55 02/18/17 08:00 66 02/18/17 07:16 74 16 55 02/18/17 07:00 68 29 104/48 100 Mechanical Ventilator 55 02/18/17 06:00 73 29 137/54 100 Mechanical Ventilator 55 02/18/17 05:05 84 28 55 02/18/17 05:00 73 29 154/62 96 Mechanical Ventilator 55 02/18/17 04:00 98.2 71 29 123/45 96 Mechanical Ventilator 55 02/18/17 04:00 74 02/18/17 04:00 55 02/18/17 03:06 70 35 55 02/18/17 03:00 71 29 107/45 96 Mechanical Ventilator 55 02/18/17 02:00 73 29 106/42 96 Mechanical Ventilator 55 02/18/17 01:17 82 31 55 02/18/17 01:00 82 26 140/51 96 Mechanical Ventilator 55 02/18/17 00:00 78 02/18/17 00:00 97.9 81 23 123/45 94 Mechanical Ventilator 55 02/18/17 00:00 115/79 02/18/17 00:00 55 02/17/17 23:20 79 31 55 02/17/17 23:00 89 30 115/79 96 Mechanical Ventilator 55 02/17/17 22:00 84 30 128/56 94 Mechanical Ventilator 55 02/17/17 21:00 81 26 121/53 99 Mechanical Ventilator 55 02/17/17 20:55 74 28 55 02/17/17 20:00 55 02/17/17 20:00 98.4 79 25 99/40 96 Mechanical Ventilator 55 02/17/17 20:00 71 02/17/17 19:07 85 29 55 02/17/17 19:00 72 24 83/37 100 Mechanical Ventilator 55 02/17/17 18:00 83 25 126/39 100 Mechanical Ventilator 55 Height (Feet): 5 Height (Inches): 1.00 Weight (Pounds): 200 HEENT: atraumatic Respiratory/Chest: normal breath sounds Cardiovascular: normal rate Abdomen: soft, non tender Laboratory Tests Test 02/18/17 04:15 02/18/17 09:00 White Blood Count 17.8 K/UL (4.8-10.8) H Red Blood Count 3.04 M/UL (4.20-5.40) L Hemoglobin 9.5 G/DL (12.0-16.0) L Hematocrit 28.0 % (37.0-47.0) L Mean Corpuscular Volume 92 FL (80-99) Mean Corpuscular Hemoglobin 31.3 PG (27.0-31.0) H Mean Corpuscular Hemoglobin Concent 33.9 G/DL (32.0-36.0) Red Cell Distribution Width 16.1 % (11.6-14.8) H Platelet Count 51 K/UL (150-450) L Mean Platelet Volume 9.8 FL (6.5-10.1) Neutrophils (%) (Auto) % (45.0-75.0) Lymphocytes (%) (Auto) % (20.0-45.0) Monocytes (%) (Auto) % (1.0-10.0) Eosinophils (%) (Auto) % (0.0-3.0) Basophils (%) (Auto) % (0.0-2.0) Differential Total Cells Counted 100 Neutrophils % (Manual) 97 % (45-75) H Lymphocytes % (Manual) 1 % (20-45) L Monocytes % (Manual) 2 % (1-10) Eosinophils % (Manual) 0 % (0-3) Basophils % (Manual) 0 % (0-2) Band Neutrophils 0 % (0-8) Platelet Estimate Decreased L Platelet Morphology Normal Hypochromasia 1+ Anisocytosis 1+ Sodium Level 139 mEQ/L (135-145) Potassium Level 3.5 mEQ/L (3.4-4.9) Chloride Level 94 mEQ/L (98-107) L Carbon Dioxide Level 27 mEQ/L (20-30) Anion Gap 18 (5-15) H Blood Urea Nitrogen 99 mg/dL (7-23) #H Creatinine 4.3 mg/dL (0.5-0.9) H Estimat Glomerular Filtration Rate mL/min (>60) Glucose Level 217 mg/dL (74-106) H Calcium Level 7.9 mg/dL (8.6-10.2) L Phosphorus Level 6.3 mg/dL (2.5-4.8) H Total Bilirubin 0.6 mg/dL (0.0-1.2) Aspartate Amino Transf (AST/SGOT) 22 U/L (5-40) Alanine Aminotransferase (ALT/SGPT) 10 U/L (3-33) Alkaline Phosphatase 200 U/L (35-104) H C-Reactive Protein, Quantitative 3.7 mg/dL (< 0.5) H Pro-B-Type Natriuretic Peptide 24144 pg/mL (0-450) H Total Protein 4.0 g/dL (6.6-8.7) L Albumin 2.0 g/dL (3.5-5.2) L Globulin 2.0 g/dL Albumin/Globulin Ratio 1.0 (1.0-2.7) Arterial Blood pH 7.324 (7.350-7.450) Arterial Blood Partial Pressure CO2 51.2 mmHg (35.0-45.0) H Arterial Blood Partial Pressure O2 49.9 mmHg (75.0-100.0) Arterial Blood HCO3 26.0 mmol/L (22.0-26.0) Arterial Blood Oxygen Saturation 81.3 % (92.0-98.0) L Arterial Blood Base Excess -0.4 Levy Test Positive Current Medications Medications (Trade) Dose Ordered Sig/Rina Route PRN Reason Start Time Stop Time Status Last Admin Dose Admin Acetaminophen (Tylenol) 650 mg Q6H PRN ORAL Mild Pain/Temp > 100.5 02/07/17 17:00 03/09/17 16:59 Albuterol/ Ipratropium (DuoNeb 0.5-3(2.5)mg/3ml) 3 ml Q2H PRN HHN WHEEZING 02/15/17 23:00 02/20/17 22:59 02/18/17 15:18 Dextrose (Dextrose 50%) STAT PRN IV Hypoglycemia 02/07/17 17:00 03/09/17 16:59 Hydrocortisone 50 mg 50 mg EVERY 8 HOURS IV 02/16/17 14:00 03/18/17 13:59 02/18/17 14:45 Insulin Aspart (NovoLOG) Q6HR SUBQ 02/07/17 18:00 03/09/17 17:59 02/18/17 12:56 Lorazepam (Ativan 2mg/ml 1ml) 1 mg Q3H PRN IV Anxiety/Agitation 02/18/17 06:30 02/25/17 06:29 02/18/17 14:49 Menthol/Methyl Salicylate (Bengay) 1 applic FOUR TIMES A DAY TOPIC 02/07/17 18:00 03/09/17 17:59 02/18/17 12:50 Meropenem/Sodium Chloride (Merrem/Sodium Chloride) 55 ml @ 110 mls/hr DAILY@1400 IVPB 02/16/17 14:00 02/20/17 23:55 02/18/17 14:45 Nitroglycerin (Ntg) 0.4 mg Q5M X 3 DOSES PRN SL Prn Chest Pain 02/07/17 16:00 03/09/17 15:59 Norepinephrine Bitartrate/ Dextrose (Levophed/D5W 500ml) 558 ml @ 0 mls/hr Q24H IV 02/12/17 00:00 03/14/17 00:00 02/13/17 03:16 Ondansetron HCl (Zofran) 4 mg Q6H PRN IVP Nausea & Vomiting 02/07/17 17:00 03/09/17 16:59 02/11/17 10:59 Pantoprazole 40 mg 40 mg EVERY 12 HOURS IVP 02/07/17 21:00 03/09/17 20:59 02/18/17 09:17 Polyethylene Glycol (Miralax) 17 gm DAILYPRN PRN GT Constipation 02/07/17 17:00 03/09/17 16:59 Sevelamer Carbonate (Renvela) 1,600 mg THREE TIMES A DAY NG 02/17/17 13:00 03/19/17 12:59 02/18/17 12:50 GISELLA JEROME M.D. Feb 18, 2017 17:49
--- NOTE | 2017-02-18 23:23 | General Progress Note ---
Assessment/Plan Assessment/Plan Assessment - TF intolerance - resolved - DM - CAD - Resp failure - gastroparesis - leukocytosis - anemia - Azotemia - Elevated Alk Phos - rising WBC Recommendations - abx - monitor residuals - elevate HOB - supportive care Subjective Allergies: Coded Allergies: MORPHINE (Verified Adverse Reaction, Severe, PARADOXICAL REACTION, 10/08/12 ) Subjective Awake, intubated TF tolerated well off pressors no events overnight u/s neg for acute findings Objective Last 24 Hour Vital Signs Date Time Temp Pulse Resp B/P Pulse Ox O2 Delivery O2 Flow Rate FiO2 02/18/17 23:00 80 26 128/55 96 Mechanical Ventilator 55 02/18/17 22:49 72 26 55 02/18/17 22:00 76 24 105/42 98 Mechanical Ventilator 55 02/18/17 21:00 83 27 159/53 97 Mechanical Ventilator 55 02/18/17 20:50 84 33 55 02/18/17 20:00 98.6 82 25 128/37 97 Mechanical Ventilator 55 02/18/17 20:00 81 02/18/17 20:00 55 02/18/17 19:00 79 26 114/51 97 Mechanical Ventilator 55 02/18/17 18:39 76 30 55 02/18/17 18:00 75 23 102/44 96 Mechanical Ventilator 55 02/18/17 17:18 72 32 55 02/18/17 17:00 75 23 121/34 96 Mechanical Ventilator 55 02/18/17 16:00 99.1 72 25 102/46 99 Mechanical Ventilator 55 02/18/17 16:00 55 02/18/17 16:00 71 02/18/17 15:21 73 21 99 Mechanical Ventilator 02/18/17 15:19 81 20 55 02/18/17 15:10 79 20 99 Mechanical Ventilator 50 02/18/17 15:00 72 25 104/44 99 Mechanical Ventilator 55 02/18/17 14:00 75 27 95/41 99 Mechanical Ventilator 55 02/18/17 13:00 71 27 102/45 99 Mechanical Ventilator 55 02/18/17 13:00 72 28 55 02/18/17 12:00 68 02/18/17 12:00 55 02/18/17 12:00 97.3 71 29 88/42 97 Mechanical Ventilator 55 02/18/17 11:23 77 17 55 02/18/17 11:00 72 22 118/49 100 Mechanical Ventilator 55 02/18/17 10:00 68 29 118/49 100 Mechanical Ventilator 55 02/18/17 09:25 71 29 97 Mechanical Ventilator 02/18/17 09:10 77 28 95 Mechanical Ventilator 50 02/18/17 09:04 70 29 55 02/18/17 08:00 55 02/18/17 08:00 97.4 68 30 97/47 100 Mechanical Ventilator 55 02/18/17 08:00 66 02/18/17 07:16 74 16 55 02/18/17 07:00 68 29 104/48 100 Mechanical Ventilator 55 02/18/17 06:00 73 29 137/54 100 Mechanical Ventilator 55 02/18/17 05:05 84 28 55 02/18/17 05:00 73 29 154/62 96 Mechanical Ventilator 55 02/18/17 04:00 98.2 71 29 123/45 96 Mechanical Ventilator 55 02/18/17 04:00 74 02/18/17 04:00 55 02/18/17 03:06 70 35 55 02/18/17 03:00 71 29 107/45 96 Mechanical Ventilator 55 02/18/17 02:00 73 29 106/42 96 Mechanical Ventilator 55 02/18/17 01:17 82 31 55 02/18/17 01:00 82 26 140/51 96 Mechanical Ventilator 55 02/18/17 00:00 78 02/18/17 00:00 97.9 81 23 123/45 94 Mechanical Ventilator 55 02/18/17 00:00 115/79 02/18/17 00:00 55 02/17/17 23:20 79 31 55 Intake and Output 02/17/17 02/18/17 19:00 07:00 Intake Total 120 ml 420 ml Output Total 1000 ml 0 ml Balance -880 ml 420 ml IV Total 55 ml Tube Feeding 35 ml 420 ml Other 30 ml Output Urine Total 0 ml Hemodialysis UF 1000 ml # Bowel Movements 6 4 Laboratory Tests 02/18/17 04:15: White Blood Count 17.8H, Red Blood Count 3.04L, Hemoglobin 9.5L, Hematocrit 28.0L, Mean Corpuscular Volume 92, Mean Corpuscular Hemoglobin 31.3H, Mean Corpuscular Hemoglobin Concent 33.9, Red Cell Distribution Width 16.1H, Platelet Count 51L, Mean Platelet Volume 9.8, Neutrophils (%) (Auto) , Lymphocytes (%) (Auto) , Monocytes (%) (Auto) , Eosinophils (%) (Auto) , Basophils (%) (Auto) , Differential Total Cells Counted 100, Neutrophils % ( Manual) 97H, Lymphocytes % (Manual) 1L, Monocytes % (Manual) 2, Eosinophils % ( Manual) 0, Basophils % (Manual) 0, Band Neutrophils 0, Platelet Estimate DecreasedL, Platelet Morphology Normal, Hypochromasia 1+, Anisocytosis 1+, Sodium Level 139, Potassium Level 3.5, Chloride Level 94L, Carbon Dioxide Level 27, Anion Gap 18H, Blood Urea Nitrogen 99#H, Creatinine 4.3H, Estimat Glomerular Filtration Rate , Glucose Level 217H, Calcium Level 7.9L, Phosphorus Level 6.3H, Total Bilirubin 0.6, Aspartate Amino Transf (AST/SGOT) 22, Alanine Aminotransferase (ALT/SGPT) 10, Alkaline Phosphatase 200H, C-Reactive Protein, Quantitative 3.7H, Pro-B-Type Natriuretic Peptide 22958I, Total Protein 4.0L, Albumin 2.0L, Globulin 2.0, Albumin/Globulin Ratio 1.0 02/18/17 09:00: Arterial Blood pH 7.324L, Arterial Blood Partial Pressure CO2 51.2H, Arterial Blood Partial Pressure O2 49.9*L, Arterial Blood HCO3 26.0, Arterial Blood Oxygen Saturation 81.3L, Arterial Blood Base Excess -0.4, Levy Test Positive Height (Feet): 5 Height (Inches): 1.00 Weight (Pounds): 200 Objective WDWN NCAT supple CTA RRR soft ND NT no edema ARLIN LONGORIA Feb 18, 2017 23:23
[2017-02-19] VITALS (24 sets, daily range): BP systolic 78–151; BP diastolic 30–65
[2017-02-19] MEDS: Norepinephrine Bitartrate 8 MG in D5W 500ml 550 ML IV SCH ×2
--- NOTE | 2017-02-19 01:58 | Progress Note ---
SUBJECTIVE: The patient remains on ventilator support. She is off pressors. She continues to be on PEEP support, being . Arterial blood gases are being monitored however her gasses today were quite poor due to suspected venous source. Oxygen requirements are decreasing slowly as well. OBJECTIVE: VITAL SIGNS: Blood pressure , pulse 75, respiratory rate 27, afebrile. RESPIRATORY: Bilateral breath sounds. Rhonchi noted. HEART: Irregularly irregular rhythm. Normal S1, S2. ABDOMEN: Soft. EXTREMITIES: With dependent edema. LABORATORY AND DIAGNOSTIC DATA: Chest x-ray today is notable for diffuse parenchymal disease with minimal improvement. Laboratories notable for white count of 17.8, hemoglobin 9.5, platelets of 51,000. Potassium 3.5, BUN 99, creatinine 4.3. Albumin is 2. IMPRESSION: 1. Sepsis, shock, respiratory failure, DIC, acute and chronic diastolic congestive heart failure. 2. Acute renal failure, now on hemodialysis. 3. Severe protein-calorie malnutrition. 4. Recovering shock. PLAN: 1. Antimicrobials. 2. Weaning efforts as described above. 3. Hemodialysis with ultrafiltration. 4. Protein supplementation by feeding tube. 5. Monitor clinical parameters. 6. Condition remains critical with prognosis still guarded. Joss Rush M.D. DR: Kristyn JOB#: [id number] CC:
[2017-02-19 04:05] LABS: MEAN CORPUSCULAR HEMOGLOBIN 30.1 PG (27.0-31.0); MEAN CORPUSCULAR HGB CONC 32.6 G/DL (32.0-36.0); MEAN CORPUSCULAR VOLUME 92 FL (80-99); MEAN PLATELET VOLUME 8.3 FL (6.5-10.1); PLATELET COUNT 106 K/UL (150-450); RED BLOOD COUNT 3.29 M/UL (4.20-5.40); RED CELL DISTRIBUTION WIDTH 17.1 % (11.6-14.8)
[2017-02-19 04:13] LABS: WHITE BLOOD COUNT 27.3 K/UL (4.8-10.8)
[2017-02-19 04:50] LABS: ANION GAP 20 (5-15); CALCIUM 8.3 mg/dL (8.6-10.2); CARBON DIOXIDE 25 mEQ/L (20-30); CHLORIDE 91 mEQ/L (98-107); HEMOLYSIS 35; PHOSPHORUS 7.1 mg/dL (2.5-4.8); POTASSIUM 3.7 mEQ/L (3.4-4.9); SODIUM 136 mEQ/L (135-145)
[2017-02-19] MEDS: Hydrocortisone 100mg Inj IV SCH ×3 (05:20→21:17)
[2017-02-19] MEDS: NovoLOG Insulin Flexpen SUBQ SCH ×3 (05:22→17:14)
[2017-02-19] MEDS: Pantoprazole Inj IVP SCH (09:02)
[2017-02-19] MEDS: Renvela 800mg Pkt NG SCH ×3 (09:02→17:14)
[2017-02-19] MEDS: Analgesic Balm 15gm TOPIC SCH ×4 (09:02→21:17)
[2017-02-19] MEDS ORDERED: NS 275ml ONE (09:39)
[2017-02-19] MEDS ORDERED: NS 550ML IV ONE (09:39)
[2017-02-19] MEDS ORDERED: Tubing IV Secondary IV ONE (09:39)
[2017-02-19 09:46] LABS: ANISOCYTOSIS 1+; BAND NEUTROPHILS % (MANUAL) 0 % (0-8); BASOPHILS % (MANUAL) 0 % (0-2); EOSINOPHILS % (MANUAL) 0 % (0-3); HYPOCHROMASIA 1+; LYMPHOCYTES % (MANUAL) 3 % (20-45); NEUTROPHILS % (MANUAL) 94 % (45-75); PLATELET ESTIMATE DECREASED; PLATELET MORPHOLOGY NORMAL; TOTAL CELLS COUNTED 100
--- NOTE | 2017-02-19 11:32 | Infectious Diseases Prog Note ---
Assessment/Plan Assessment/Plan ASSESSMENT: 76 y/o female with: // Probable UTI - UCx(-) // Hypoxia, possible HCAP Scx: ESBL Kleb - CXR 02/02 : Extensive bilateral interstitial and airspace opacities, unchanged // h/o CoNS bacteremia 11/05 ( 01/09 ) ?real ( PICC tip+ ) vs contaminant r/o recurrence/persistence - surveillance BCx(-) // h/o right ankle cellulitis / osteomyelitis / hardware infection SP incomplete Rx ( recommended to complete 6 weeks IV daptomycin, cefepime ( end ), but daughter apparently declined at last discharge per documentation ) - SP hardware removal 12/15 - no culture sent - 3P bone scan: 3 phase increased activity in region of distal aspect of right fibula compatible with hardware loosening and/or osteomyelitis - XR: surgical hardware seen reducing old healed distal fibular and medial malleolar fractures. No acute fractures. No dislocations. Bones are demineralized. - elevated ESR, CRP - h/o right ankle ORIF // Probable sepsis,SP // Leukocytosis , increased ( on sternoids ) // Diarrhea C-Diff Neg // ..US abd :neg of infectious process // VDRF intubated 02/07 // ARF on CKD --> IHD per renal SP placement of tunneled right jugular hemodialysis catheter. 01/29 // Dementia // DM2 - HbA1c 6.1% // h/o CAD - trop(-) x1 // NH resident // VRE colonized // No ABX allergies // Full Code PLAN: - on Merrem d# 13 /14 ( 02/07 SP DC Teflaro d# 10 ) ( 01/28 SP IV cefepime d# 10 IV Vanco d# 2 ) - monitor CBC, temperatures - monitor BMP - monitor CXR - respiratory support prn - DNR poor prognosis , Subjective Allergies: Coded Allergies: MORPHINE (Verified Adverse Reaction, Severe, PARADOXICAL REACTION, 10/08/12 ) Subjective on vent, diarrhea Objective Vital Signs Last 24 Hour Vital Signs Date Time Temp Pulse Resp B/P Pulse Ox O2 Delivery O2 Flow Rate FiO2 02/19/17 11:00 84 26 100/36 100 Mechanical Ventilator 55 02/19/17 10:00 82 27 107/41 100 Mechanical Ventilator 55 02/19/17 09:18 95 32 70 02/19/17 09:00 80 26 95/40 99 Mechanical Ventilator 55 02/19/17 08:00 73 28 85/30 99 Mechanical Ventilator 55 02/19/17 08:00 97.5 65 30 85/40 94 Mechanical Ventilator 55 02/19/17 08:00 75 02/19/17 08:00 55 02/19/17 08:00 Mechanical Ventilator 55 02/19/17 07:06 88 27 55 02/19/17 07:00 97.5 71 26 78/51 99 Mechanical Ventilator 55 02/19/17 06:07 Mechanical Ventilator 55 02/19/17 06:00 76 16 151/65 99 Mechanical Ventilator 55 02/19/17 05:10 97.5 81 26 145/60 96 Mechanical Ventilator 55 02/19/17 04:58 81 29 55 02/19/17 04:00 79 02/19/17 04:00 97.9 74 35 130/47 97 Mechanical Ventilator 55 02/19/17 04:00 55 02/19/17 03:00 75 22 124/46 97 Mechanical Ventilator 55 02/19/17 03:00 79 28 55 02/19/17 02:52 83 32 55 02/19/17 02:00 83 19 130/45 95 Mechanical Ventilator 55 02/19/17 01:00 85 28 151/53 96 Mechanical Ventilator 55 02/19/17 00:40 79 29 55 02/19/17 00:00 98.9 80 28 135/52 96 Mechanical Ventilator 55 02/19/17 00:00 55 02/19/17 00:00 135/52 02/19/17 00:00 76 02/18/17 23:00 80 26 128/55 96 Mechanical Ventilator 55 02/18/17 22:49 72 26 55 02/18/17 22:00 76 24 105/42 98 Mechanical Ventilator 55 02/18/17 21:00 83 27 159/53 97 Mechanical Ventilator 55 02/18/17 20:50 84 33 55 02/18/17 20:00 98.6 82 25 128/37 97 Mechanical Ventilator 55 02/18/17 20:00 81 02/18/17 20:00 55 02/18/17 19:00 79 26 114/51 97 Mechanical Ventilator 55 02/18/17 18:39 76 30 55 02/18/17 18:00 75 23 102/44 96 Mechanical Ventilator 55 02/18/17 17:18 72 32 55 02/18/17 17:00 75 23 121/34 96 Mechanical Ventilator 55 02/18/17 16:00 99.1 72 25 102/46 99 Mechanical Ventilator 55 02/18/17 16:00 55 02/18/17 16:00 71 02/18/17 15:21 73 21 99 Mechanical Ventilator 02/18/17 15:19 81 20 55 02/18/17 15:10 79 20 99 Mechanical Ventilator 50 02/18/17 15:00 72 25 104/44 99 Mechanical Ventilator 55 02/18/17 14:00 75 27 95/41 99 Mechanical Ventilator 55 02/18/17 13:00 71 27 102/45 99 Mechanical Ventilator 55 02/18/17 13:00 72 28 55 02/18/17 12:00 68 02/18/17 12:00 55 02/18/17 12:00 97.3 71 29 88/42 97 Mechanical Ventilator 55 Height (Feet): 5 Height (Inches): 1.00 Weight (Pounds): 200 HEENT: normocephalic Respiratory/Chest: lungs clear Cardiovascular: regular rhythm Abdomen: no organomegaly Laboratory Tests Test 02/19/17 03:35 White Blood Count 27.3 K/UL (4.8-10.8) #*H Red Blood Count 3.29 M/UL (4.20-5.40) L Hemoglobin 9.9 G/DL (12.0-16.0) L Hematocrit 30.4 % (37.0-47.0) L Mean Corpuscular Volume 92 FL (80-99) Mean Corpuscular Hemoglobin 30.1 PG (27.0-31.0) Mean Corpuscular Hemoglobin Concent 32.6 G/DL (32.0-36.0) Red Cell Distribution Width 17.1 % (11.6-14.8) H Platelet Count 106 K/UL (150-450) #L Mean Platelet Volume 8.3 FL (6.5-10.1) Neutrophils (%) (Auto) % (45.0-75.0) Lymphocytes (%) (Auto) % (20.0-45.0) Monocytes (%) (Auto) % (1.0-10.0) Eosinophils (%) (Auto) % (0.0-3.0) Basophils (%) (Auto) % (0.0-2.0) Differential Total Cells Counted 100 Neutrophils % (Manual) 94 % (45-75) H Lymphocytes % (Manual) 3 % (20-45) L Monocytes % (Manual) 3 % (1-10) Eosinophils % (Manual) 0 % (0-3) Basophils % (Manual) 0 % (0-2) Band Neutrophils 0 % (0-8) Platelet Estimate Decreased L Platelet Morphology Normal Hypochromasia 1+ Anisocytosis 1+ Sodium Level 136 mEQ/L (135-145) Potassium Level 3.7 mEQ/L (3.4-4.9) Chloride Level 91 mEQ/L (98-107) L Carbon Dioxide Level 25 mEQ/L (20-30) Anion Gap 20 (5-15) H Blood Urea Nitrogen 118 mg/dL (7-23) H Creatinine 5.0 mg/dL (0.5-0.9) H Estimat Glomerular Filtration Rate mL/min (>60) Glucose Level 193 mg/dL (74-106) H Calcium Level 8.3 mg/dL (8.6-10.2) L Phosphorus Level 7.1 mg/dL (2.5-4.8) H Magnesium Level 2.0 mg/dL (1.7-2.5) Pro-B-Type Natriuretic Peptide 9599 pg/mL (0-450) H Current Medications Medications (Trade) Dose Ordered Sig/Rina Route PRN Reason Start Time Stop Time Status Last Admin Dose Admin Acetaminophen (Tylenol) 650 mg Q6H PRN ORAL Mild Pain/Temp > 100.5 02/07/17 17:00 03/09/17 16:59 Albuterol/ Ipratropium (DuoNeb 0.5-3(2.5)mg/3ml) 3 ml Q2H PRN HHN WHEEZING 02/15/17 23:00 02/20/17 22:59 02/18/17 15:18 Dextrose (Dextrose 50%) STAT PRN IV Hypoglycemia 02/07/17 17:00 03/09/17 16:59 Hydrocortisone 50 mg 50 mg EVERY 8 HOURS IV 02/16/17 14:00 03/18/17 13:59 02/19/17 05:20 Insulin Aspart (NovoLOG) Q6HR SUBQ 02/07/17 18:00 03/09/17 17:59 4/20/17 11:19 Lorazepam (Ativan 2mg/ml 1ml) 1 mg Q3H PRN IV Anxiety/Agitation 02/18/17 06:30 02/25/17 06:29 02/18/17 14:49 Menthol/Methyl Salicylate (Bengay) 1 applic FOUR TIMES A DAY TOPIC 02/07/17 18:00 03/09/17 17:59 02/19/17 09:02 Meropenem/Sodium Chloride (Merrem/Sodium Chloride) 55 ml @ 110 mls/hr DAILY@1400 IVPB 02/16/17 14:00 02/20/17 23:55 02/18/17 14:45 Nitroglycerin (Ntg) 0.4 mg Q5M X 3 DOSES PRN SL Prn Chest Pain 02/07/17 16:00 03/09/17 15:59 Norepinephrine Bitartrate/ Dextrose (Levophed/D5W 500ml) 558 ml @ 0 mls/hr Q24H IV 02/12/17 00:00 03/14/17 00:00 02/13/17 03:16 Ondansetron HCl (Zofran) 4 mg Q6H PRN IVP Nausea & Vomiting 02/07/17 17:00 03/09/17 16:59 02/11/17 10:59 Pantoprazole (Protonix) 40 mg Q12HR GT 02/19/17 21:00 03/21/17 20:59 Polyethylene Glycol 17 gm 17 gm DAILYPRN PRN GT Constipation 02/07/17 17:00 03/09/17 16:59 Sevelamer Carbonate (Renvela) 1,600 mg THREE TIMES A DAY NG 02/17/17 13:00 03/19/17 12:59 02/19/17 09:02 GISELLA JEROME M.D. Feb 19, 2017 11:32
--- NOTE | 2017-02-19 12:08 | General Progress Note ---
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 bilateral right greater than left pleural effusions and mediastinal lymphadenopathy - she is a poor candidate for biopsy and has a poor prognosis # Anemia 2/2 chronic disease - s/p multiple units of blood # Leukocytosis - related to sepsis and underlying infection, is on antibiotics # Respiratory failure s/p intubation # Respiratory acidosis # Renal failure- pt on HD # ALOC # Sepsis Recs: - Continue to monitor counts - Considering terminal extubation, comfort care as per primary - Transfuse to hgb goal >7, plt goal >20k if bleeding --> conservative management - Give PRBC during HD due to hgb<7 - She is off heparin, plavix, aspirin - Agree to administer FFP if INR >2 - Does not require a biopsy as has poor prognosis and poor outcome at this time - OG feeds at maximal rate - Appreciate consultation! continue to follow Subjective ROS Limited/Unobtainable: Yes Constitutional: Reports: no symptoms HEENT: Reports: no symptoms Cardiovascular: Reports: no symptoms Respiratory: Reports: other - ventilator Gastrointestinal/Abdominal: Reports: no symptoms Genitourinary: Reports: no symptoms 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: Reports: no symptoms Endocrine: Reports: no symptoms Hematologic/Lymphatic: Reports: anemia Allergies: Coded Allergies: MORPHINE (Verified Adverse Reaction, Severe, PARADOXICAL REACTION, 10/08/12 ) Subjective pt afebrile, diarrhea, not bleeding, still intubated, eyes closed, responds to tactile stimuli Objective Last 24 Hour Vital Signs Date Time Temp Pulse Resp B/P Pulse Ox O2 Delivery O2 Flow Rate FiO2 02/19/17 11:30 79 24 70 02/19/17 11:00 84 26 100/36 100 Mechanical Ventilator 55 02/19/17 10:00 82 27 107/41 100 Mechanical Ventilator 55 02/19/17 09:18 95 32 70 02/19/17 09:00 80 26 95/40 99 Mechanical Ventilator 55 02/19/17 08:00 73 28 85/30 99 Mechanical Ventilator 55 02/19/17 08:00 97.5 65 30 85/40 94 Mechanical Ventilator 55 02/19/17 08:00 75 02/19/17 08:00 55 02/19/17 08:00 Mechanical Ventilator 55 02/19/17 07:06 88 27 55 02/19/17 07:00 97.5 71 26 78/51 99 Mechanical Ventilator 55 02/19/17 06:07 Mechanical Ventilator 55 02/19/17 06:00 76 16 151/65 99 Mechanical Ventilator 55 02/19/17 05:10 97.5 81 26 145/60 96 Mechanical Ventilator 55 02/19/17 04:58 81 29 55 02/19/17 04:00 79 02/19/17 04:00 97.9 74 35 130/47 97 Mechanical Ventilator 55 02/19/17 04:00 55 02/19/17 03:00 75 22 124/46 97 Mechanical Ventilator 55 02/19/17 03:00 79 28 55 02/19/17 02:52 83 32 55 02/19/17 02:00 83 19 130/45 95 Mechanical Ventilator 55 02/19/17 01:00 85 28 151/53 96 Mechanical Ventilator 55 02/19/17 00:40 79 29 55 02/19/17 00:00 98.9 80 28 135/52 96 Mechanical Ventilator 55 02/19/17 00:00 55 02/19/17 00:00 135/52 02/19/17 00:00 76 02/18/17 23:00 80 26 128/55 96 Mechanical Ventilator 55 02/18/17 22:49 72 26 55 02/18/17 22:00 76 24 105/42 98 Mechanical Ventilator 55 02/18/17 21:00 83 27 159/53 97 Mechanical Ventilator 55 02/18/17 20:50 84 33 55 02/18/17 20:00 98.6 82 25 128/37 97 Mechanical Ventilator 55 02/18/17 20:00 81 02/18/17 20:00 55 02/18/17 19:00 79 26 114/51 97 Mechanical Ventilator 55 02/18/17 18:39 76 30 55 02/18/17 18:00 75 23 102/44 96 Mechanical Ventilator 55 02/18/17 17:18 72 32 55 02/18/17 17:00 75 23 121/34 96 Mechanical Ventilator 55 02/18/17 16:00 99.1 72 25 102/46 99 Mechanical Ventilator 55 02/18/17 16:00 55 02/18/17 16:00 71 02/18/17 15:21 73 21 99 Mechanical Ventilator 02/18/17 15:19 81 20 55 02/18/17 15:10 79 20 99 Mechanical Ventilator 50 02/18/17 15:00 72 25 104/44 99 Mechanical Ventilator 55 02/18/17 14:00 75 27 95/41 99 Mechanical Ventilator 55 02/18/17 13:00 71 27 102/45 99 Mechanical Ventilator 55 02/18/17 13:00 72 28 55 Intake and Output 02/18/17 02/19/17 19:00 07:00 Intake Total 455 ml 370 ml Output Total 0 ml 0 ml Balance 455 ml 370 ml Free Water 35 ml 20 ml Tube Feeding 420 ml 350 ml Output Urine Total 0 ml 0 ml # Bowel Movements 1 4 Laboratory Tests 02/19/17 03:35: White Blood Count 27.3#*H, Red Blood Count 3.29L, Hemoglobin 9.9L, Hematocrit 30.4L, Mean Corpuscular Volume 92, Mean Corpuscular Hemoglobin 30.1, Mean Corpuscular Hemoglobin Concent 32.6, Red Cell Distribution Width 17.1H, Platelet Count 106#L, Mean Platelet Volume 8.3, Neutrophils (%) (Auto) , Lymphocytes (%) (Auto) , Monocytes (%) (Auto) , Eosinophils (%) (Auto) , Basophils (%) (Auto) , Differential Total Cells Counted 100, Neutrophils % ( Manual) 94H, Lymphocytes % (Manual) 3L, Monocytes % (Manual) 3, Eosinophils % ( Manual) 0, Basophils % (Manual) 0, Band Neutrophils 0, Platelet Estimate DecreasedL, Platelet Morphology Normal, Hypochromasia 1+, Anisocytosis 1+, Sodium Level 136, Potassium Level 3.7, Chloride Level 91L, Carbon Dioxide Level 25, Anion Gap 20H, Blood Urea Nitrogen 118H, Creatinine 5.0H, Estimat Glomerular Filtration Rate , Glucose Level 193H, Calcium Level 8.3L, Phosphorus Level 7.1H, Magnesium Level 2.0, Pro-B-Type Natriuretic Peptide 9599H Height (Feet): 5 Height (Inches): 1.00 Weight (Pounds): 200 General Appearance: no apparent distress EENT: normal ENT inspection Neck: non-tender Cardiovascular: normal peripheral pulses Respiratory/Chest: chest wall non-tender Edema: 1+ Leg (L), 1+ Leg (R), 1+ Pedal (L), 1+ Pedal (R) Neurologic: disoriented Skin: warm/dry Mariano Ortiz Feb 19, 2017 12:08
[2017-02-19] MEDS: Meropenem 500 MG in NS 55 ML IVPB SCH (14:27)
--- NOTE | 2017-02-19 14:48 | Diagnostic Imaging Report ---
Indications: Altered mental status Technique: Continuous helical CT imaging of the brain was performed with automatic exposure control on a Siemens sensation [address] scanner. Axial and coronal images were reconstructed at 5 mm slice thickness and interval. CTDI volume(s): 70 mGy Total DLP: 1383 mGy-cm Findings: Comparison: 09/18/06 Motion artifact degrades all images. There is been significant increase in low-attenuation throughout the bilateral cerebral periventricular and deep white matter, increased prominence of ventricles, cisterns, and sulci.. No evidence of mass or hemorrhage, other attenuation abnormality, mass effect, midline shift, hydrocephalus or increased intracranial pressure. Bone window images are unremarkable. Visualized paranasal sinuses remain clear. Bilateral mastoid air cells are opacified. IMPRESSION: No evidence of acute intracranial pathology, limited as described. Early/subtle acute abnormalities may be missed, however. If clinically indicated, MRI of the brain without and with gadolinium may be of benefit in further evaluation Progression of chronic microvascular ischemic changes throughout the bilateral cerebral periventricular and deep white matter Progression of atrophy. Development of bilateral mastoiditis The CT scanner at [facility] is accredited by the [employer] and the scans are performed using protocols designed to limit radiation exposure to as low as reasonably achievable to attain images of sufficient resolution adequate for diagnostic evaluation.
--- NOTE | 2017-02-19 15:00 | General Progress Note ---
Assessment/Plan Status: unchanged Assessment/Plan Has acute respiratory distress- intubated in ICU Septic shock ( Had long talk with daughter Gali 01/19 ) - Acute renal failure and hyperKalemia - Renal failure, likely diabetic nephropathy / HTN - Sepsis , Pneumonia, Respiratory failure and Hypoxia other - h/o Cellulitis in diabetic foot right LE - Decubitus ulcer - Dementia - Diabetes mellitus - Nonpressure ulcer to level of fascia right lateral ankle - S/P ORIF right ankle Plan: intubate - ICU On hydrocortisone- Had permacath 01/30 Adjust BP meds- Labile BP- - Clonidin PRN HD 02/19 done this am- taken off 15 minutes early due to low BP Transfused addd phos binders monitor WBCs Monitor renal parameters and Vanco level- ARTUR Kidney done last admission- unremarkable Adjust BP meds- Avoid Nephrotoxics- discussed with CM Per orders Subjective ROS Limited/Unobtainable: Yes Allergies: Coded Allergies: MORPHINE (Verified Adverse Reaction, Severe, PARADOXICAL REACTION, 10/08/12 ) Objective Last 24 Hour Vital Signs Date Time Temp Pulse Resp B/P Pulse Ox O2 Delivery O2 Flow Rate FiO2 02/19/17 14:00 82 26 90/40 97 Mechanical Ventilator 55 02/19/17 13:00 90 26 99/34 100 Mechanical Ventilator 55 02/19/17 12:40 89 29 65 02/19/17 12:00 55 02/19/17 12:00 97.8 92 21 112/37 100 Mechanical Ventilator 55 02/19/17 12:00 90 02/19/17 11:30 79 24 70 02/19/17 11:00 84 26 100/36 100 Mechanical Ventilator 55 02/19/17 10:00 82 27 107/41 100 Mechanical Ventilator 55 02/19/17 09:18 95 32 70 02/19/17 09:00 80 26 95/40 99 Mechanical Ventilator 55 02/19/17 08:00 73 28 85/30 99 Mechanical Ventilator 55 02/19/17 08:00 97.5 65 30 85/40 94 Mechanical Ventilator 55 02/19/17 08:00 75 02/19/17 08:00 55 02/19/17 08:00 Mechanical Ventilator 55 02/19/17 07:06 88 27 55 02/19/17 07:00 97.5 71 26 78/51 99 Mechanical Ventilator 55 02/19/17 06:07 Mechanical Ventilator 55 02/19/17 06:00 76 16 151/65 99 Mechanical Ventilator 55 02/19/17 05:10 97.5 81 26 145/60 96 Mechanical Ventilator 55 02/19/17 04:58 81 29 55 02/19/17 04:00 79 02/19/17 04:00 97.9 74 35 130/47 97 Mechanical Ventilator 55 02/19/17 04:00 55 02/19/17 03:00 75 22 124/46 97 Mechanical Ventilator 55 02/19/17 03:00 79 28 55 02/19/17 02:52 83 32 55 02/19/17 02:00 83 19 130/45 95 Mechanical Ventilator 55 02/19/17 01:00 85 28 151/53 96 Mechanical Ventilator 55 02/19/17 00:40 79 29 55 02/19/17 00:00 98.9 80 28 135/52 96 Mechanical Ventilator 55 02/19/17 00:00 55 02/19/17 00:00 135/52 02/19/17 00:00 76 02/18/17 23:00 80 26 128/55 96 Mechanical Ventilator 55 02/18/17 22:49 72 26 55 02/18/17 22:00 76 24 105/42 98 Mechanical Ventilator 55 02/18/17 21:00 83 27 159/53 97 Mechanical Ventilator 55 02/18/17 20:50 84 33 55 02/18/17 20:00 98.6 82 25 128/37 97 Mechanical Ventilator 55 02/18/17 20:00 81 02/18/17 20:00 55 02/18/17 19:00 79 26 114/51 97 Mechanical Ventilator 55 02/18/17 18:39 76 30 55 02/18/17 18:00 75 23 102/44 96 Mechanical Ventilator 55 02/18/17 17:18 72 32 55 02/18/17 17:00 75 23 121/34 96 Mechanical Ventilator 55 02/18/17 16:00 99.1 72 25 102/46 99 Mechanical Ventilator 55 02/18/17 16:00 55 02/18/17 16:00 71 02/18/17 15:21 73 21 99 Mechanical Ventilator 02/18/17 15:19 81 20 55 02/18/17 15:10 79 20 99 Mechanical Ventilator 50 02/18/17 15:00 72 25 104/44 99 Mechanical Ventilator 55 Intake and Output 02/18/17 02/19/17 19:00 07:00 Intake Total 455 ml 370 ml Output Total 0 ml 0 ml Balance 455 ml 370 ml Free Water 35 ml 20 ml Tube Feeding 420 ml 350 ml Output Urine Total 0 ml 0 ml # Bowel Movements 1 4 Laboratory Tests 02/19/17 03:35: White Blood Count 27.3#*H, Red Blood Count 3.29L, Hemoglobin 9.9L, Hematocrit 30.4L, Mean Corpuscular Volume 92, Mean Corpuscular Hemoglobin 30.1, Mean Corpuscular Hemoglobin Concent 32.6, Red Cell Distribution Width 17.1H, Platelet Count 106#L, Mean Platelet Volume 8.3, Neutrophils (%) (Auto) , Lymphocytes (%) (Auto) , Monocytes (%) (Auto) , Eosinophils (%) (Auto) , Basophils (%) (Auto) , Differential Total Cells Counted 100, Neutrophils % ( Manual) 94H, Lymphocytes % (Manual) 3L, Monocytes % (Manual) 3, Eosinophils % ( Manual) 0, Basophils % (Manual) 0, Band Neutrophils 0, Platelet Estimate DecreasedL, Platelet Morphology Normal, Hypochromasia 1+, Anisocytosis 1+, Sodium Level 136, Potassium Level 3.7, Chloride Level 91L, Carbon Dioxide Level 25, Anion Gap 20H, Blood Urea Nitrogen 118H, Creatinine 5.0H, Estimat Glomerular Filtration Rate , Glucose Level 193H, Calcium Level 8.3L, Phosphorus Level 7.1H, Magnesium Level 2.0, Pro-B-Type Natriuretic Peptide 9599H Height (Feet): 5 Height (Inches): 1.00 Weight (Pounds): 200 Cardiovascular: tachycardia Respiratory/Chest: decreased breath sounds Abdomen: distended Objective other PE not changed BERTRAM CASTAÑEDA Feb 19, 2017 15:00
[2017-02-19] MEDS: Pantoprazole 40mg pkt GT SCH (21:17)
--- NOTE | 2017-02-19 22:27 | General Progress Note ---
Assessment/Plan Assessment/Plan Assessment - TF intolerance - resolved - DM - CAD - Resp failure - gastroparesis - leukocytosis - anemia - Azotemia - Elevated Alk Phos - rising WBC Recommendations - abx - monitor residuals - elevate HOB - supportive care Subjective Allergies: Coded Allergies: MORPHINE (Verified Adverse Reaction, Severe, PARADOXICAL REACTION, 10/08/12 ) Subjective intubated TF tolerated well off pressors no events overnight u/s neg for acute findings Objective Last 24 Hour Vital Signs Date Time Temp Pulse Resp B/P Pulse Ox O2 Delivery O2 Flow Rate FiO2 02/19/17 22:00 80 26 128/48 96 Mechanical Ventilator 50 02/19/17 21:09 78 24 50 02/19/17 21:00 78 24 117/42 97 Mechanical Ventilator 50 02/19/17 20:00 80 02/19/17 20:00 97.4 77 27 116/44 96 Mechanical Ventilator 50 02/19/17 19:02 77 28 50 02/19/17 19:00 79 20 116/40 96 Mechanical Ventilator 50 02/19/17 19:00 50 02/19/17 18:00 84 26 130/49 97 Mechanical Ventilator 55 02/19/17 17:29 76 27 65 02/19/17 17:00 76 23 115/62 100 Mechanical Ventilator 55 02/19/17 16:00 97.9 84 28 132/61 97 Mechanical Ventilator 55 02/19/17 16:00 55 02/19/17 16:00 83 02/19/17 15:17 89 28 65 02/19/17 15:00 83 21 98/48 97 Mechanical Ventilator 55 02/19/17 14:00 82 26 90/40 97 Mechanical Ventilator 55 02/19/17 13:00 90 26 99/34 100 Mechanical Ventilator 55 02/19/17 12:40 89 29 65 02/19/17 12:00 55 02/19/17 12:00 97.8 92 21 112/37 100 Mechanical Ventilator 55 02/19/17 12:00 90 02/19/17 11:30 79 24 70 02/19/17 11:00 84 26 100/36 100 Mechanical Ventilator 55 02/19/17 10:00 82 27 107/41 100 Mechanical Ventilator 55 02/19/17 09:18 95 32 70 02/19/17 09:00 80 26 95/40 99 Mechanical Ventilator 55 02/19/17 08:00 73 28 85/30 99 Mechanical Ventilator 55 02/19/17 08:00 97.5 65 30 85/40 94 Mechanical Ventilator 55 02/19/17 08:00 75 02/19/17 08:00 55 02/19/17 08:00 Mechanical Ventilator 55 02/19/17 07:06 88 27 55 02/19/17 07:00 97.5 71 26 78/51 99 Mechanical Ventilator 55 02/19/17 06:07 Mechanical Ventilator 55 02/19/17 06:00 76 16 151/65 99 Mechanical Ventilator 55 02/19/17 05:10 97.5 81 26 145/60 96 Mechanical Ventilator 55 02/19/17 04:58 81 29 55 02/19/17 04:00 79 02/19/17 04:00 97.9 74 35 130/47 97 Mechanical Ventilator 55 02/19/17 04:00 55 02/19/17 03:00 75 22 124/46 97 Mechanical Ventilator 55 02/19/17 03:00 79 28 55 02/19/17 02:52 83 32 55 02/19/17 02:00 83 19 130/45 95 Mechanical Ventilator 55 02/19/17 01:00 85 28 151/53 96 Mechanical Ventilator 55 02/19/17 00:40 79 29 55 02/19/17 00:00 98.9 80 28 135/52 96 Mechanical Ventilator 55 02/19/17 00:00 55 02/19/17 00:00 135/52 02/19/17 00:00 76 02/18/17 23:00 80 26 128/55 96 Mechanical Ventilator 55 02/18/17 22:49 72 26 55 Intake and Output 02/18/17 02/19/17 19:00 07:00 Intake Total 455 ml 370 ml Output Total 0 ml 0 ml Balance 455 ml 370 ml Free Water 35 ml 20 ml Tube Feeding 420 ml 350 ml Output Urine Total 0 ml 0 ml # Bowel Movements 1 4 Laboratory Tests 02/19/17 03:35: White Blood Count 27.3#*H, Red Blood Count 3.29L, Hemoglobin 9.9L, Hematocrit 30.4L, Mean Corpuscular Volume 92, Mean Corpuscular Hemoglobin 30.1, Mean Corpuscular Hemoglobin Concent 32.6, Red Cell Distribution Width 17.1H, Platelet Count 106#L, Mean Platelet Volume 8.3, Neutrophils (%) (Auto) , Lymphocytes (%) (Auto) , Monocytes (%) (Auto) , Eosinophils (%) (Auto) , Basophils (%) (Auto) , Differential Total Cells Counted 100, Neutrophils % ( Manual) 94H, Lymphocytes % (Manual) 3L, Monocytes % (Manual) 3, Eosinophils % ( Manual) 0, Basophils % (Manual) 0, Band Neutrophils 0, Platelet Estimate DecreasedL, Platelet Morphology Normal, Hypochromasia 1+, Anisocytosis 1+, Sodium Level 136, Potassium Level 3.7, Chloride Level 91L, Carbon Dioxide Level 25, Anion Gap 20H, Blood Urea Nitrogen 118H, Creatinine 5.0H, Estimat Glomerular Filtration Rate , Glucose Level 193H, Calcium Level 8.3L, Phosphorus Level 7.1H, Magnesium Level 2.0, Pro-B-Type Natriuretic Peptide 9599H Height (Feet): 5 Height (Inches): 1.00 Weight (Pounds): 200 Objective WDWN NCAT supple CTA RRR soft ND NT no edema ARLIN LONGORIA Feb 19, 2017 22:27
[2017-02-20] VITALS (24 sets, daily range): BP systolic 96–140; BP diastolic 35–58
[2017-02-20] MEDS: Norepinephrine Bitartrate 8 MG in D5W 500ml 550 ML IV SCH ×2
[2017-02-20] MEDS: NovoLOG Insulin Flexpen SUBQ SCH ×4 (01:00→17:15)
--- NOTE | 2017-02-20 04:28 | Progress Note ---
DATE: 02/19/2017 SUBJECTIVE: The patient remains intubated on antibiotics, off pressors, 90/40, 82, 26. Hemodialysis was terminated early this morning because of low blood pressure. Transfusion of packed red blood cells was undertaken. OBJECTIVE: GENERAL: Orally intubated. Bilateral breath sounds with rhonchi. HEART: Irregularly irregular rhythm. Normal S1 and S2. ABDOMEN: Soft, 1+ dependent edema. reviewed. Laboratories noted. Discussed with Dr. Ly. IMPRESSION: 1. Recovering sepsis with shock. 2. Respiratory failure. 3. Atrial fibrillation. 4. Acute on chronic diastolic congestive heart failure. 5. Diabetes mellitus. 6. Gastroparesis. 7. Ischemic heart disease. PLAN: 1. Antimicrobials. 2. Ventilator support with weaning if able. 3. Transfuse for hemoglobin less than 8 g. 4. Hemodialysis with ultrafiltration as tolerated. Avoid pressors if able. Monitor platelet count and coagulation parameters. 5. Continue to hold anti-platelet therapy for now. 6. Condition remains critical and prognosis is guarded. Joss Rush M.D. DR: LAURA JOB#: [id number] CC:
[2017-02-20] MEDS: Hydrocortisone 100mg Inj IV SCH (05:12)
[2017-02-20] MEDS: Pantoprazole 40mg pkt GT SCH ×2 (08:00→21:03)
[2017-02-20] MEDS: Renvela 800mg Pkt NG SCH ×3 (08:00→17:14)
[2017-02-20] MEDS: Analgesic Balm 15gm TOPIC SCH ×4 (08:01→21:04)
--- NOTE | 2017-02-20 09:21 | Critical Care Progress Note ---
Assessment/Plan Assessment/Plan hypoxemia respiratory failure respiratory acidosis pulmonary infiltrates thrombocytopenia renal failure ALOC chronic encephalopathy septic shock leukocytosis pulmonary infiltrates ARDS DIC likely s/p transfusion atrial fibrillation hypotension PLAN wean as able reduce steroids concern of recurring infection follow up labs and adjust levophed off monitor renal function; on HD per renal blood pressure labile antibiotics noted o2 needs better follow up ABG and CXR prognosis remains poor; wbc improvement if unable to wean, plan for terminal extubation medications/laboratory data/nursing notes/ICU care reviewed in detail note reviewed and edited care discussed with RN and RT ICU time spent 38 minutes Critical Care - Subjective Interval Events: care reviewed and discussed ICU care noted and reviewed wbc not again high ROS Limited/Unobtainable: Yes Condition: critical EKG Rhythm: Sinus Rhythm Residuals: minimal Tube Feeding Tolerated: yes I&O: Intake and Output 02/19/17 02/20/17 19:00 07:00 Intake Total 570 ml 480 ml Output Total 700 ml Balance -130 ml 480 ml Free Water 40 ml 20 ml IV Total 110 ml Tube Feeding 420 ml 420 ml Other 40 ml Output Urine Total 0 ml Hemodialysis UF 700 ml # Bowel Movements 4 2 Critical Care - Objective ET-Tube: 7.0 ET Position: 22 Last 24 Hour Vital Signs Date Time Temp Pulse Resp B/P Pulse Ox O2 Delivery O2 Flow Rate FiO2 02/20/17 07:22 74 27 50 02/20/17 07:00 76 22 131/47 93 Mechanical Ventilator 50 02/20/17 06:00 74 25 134/46 94 Mechanical Ventilator 50 02/20/17 05:19 72 25 50 02/20/17 05:00 76 28 111/38 95 Mechanical Ventilator 50 02/20/17 04:00 87 02/20/17 04:00 50 02/20/17 04:00 97.4 79 27 133/44 94 Mechanical Ventilator 50 02/20/17 03:00 80 31 125/50 99 Mechanical Ventilator 50 02/20/17 02:52 82 28 50 02/20/17 02:00 83 32 131/49 98 Mechanical Ventilator 50 02/20/17 01:28 82 31 50 02/20/17 01:00 81 31 136/46 97 Mechanical Ventilator 50 02/20/17 00:00 97.5 77 25 111/48 97 Mechanical Ventilator 50 02/20/17 00:00 50 02/20/17 00:00 111/48 02/20/17 00:00 76 4/20/17 23:26 81 28 50 02/19/17 23:00 83 28 130/52 97 Mechanical Ventilator 50 02/19/17 22:00 80 26 128/48 96 Mechanical Ventilator 50 02/19/17 21:09 78 24 50 02/19/17 21:00 78 24 117/42 97 Mechanical Ventilator 50 02/19/17 20:00 80 02/19/17 20:00 97.4 77 27 116/44 96 Mechanical Ventilator 50 02/19/17 19:02 77 28 50 02/19/17 19:00 79 20 116/40 96 Mechanical Ventilator 50 02/19/17 19:00 50 02/19/17 18:00 84 26 130/49 97 Mechanical Ventilator 55 02/19/17 17:29 76 27 65 02/19/17 17:00 76 23 115/62 100 Mechanical Ventilator 55 02/19/17 16:00 97.9 84 28 132/61 97 Mechanical Ventilator 55 02/19/17 16:00 55 02/19/17 16:00 83 02/19/17 15:17 89 28 65 02/19/17 15:00 83 21 98/48 97 Mechanical Ventilator 55 02/19/17 14:00 82 26 90/40 97 Mechanical Ventilator 55 02/19/17 13:00 90 26 99/34 100 Mechanical Ventilator 55 02/19/17 12:40 89 29 65 02/19/17 12:00 55 02/19/17 12:00 97.8 92 21 112/37 100 Mechanical Ventilator 55 02/19/17 12:00 90 02/19/17 11:30 79 24 70 02/19/17 11:00 84 26 100/36 100 Mechanical Ventilator 55 02/19/17 10:00 82 27 107/41 100 Mechanical Ventilator 55 Labs: Labs Test 02/17/17 10:30 02/18/17 04:15 02/18/17 09:00 02/19/17 03:35 Arterial Blood pH 7.306 (7.350-7.450) 7.324 (7.350-7.450) Arterial Blood Partial Pressure CO2 60.9 mmHg (35.0-45.0) 51.2 mmHg (35.0-45.0) Arterial Blood Partial Pressure O2 43.1 mmHg (75.0-100.0) 49.9 mmHg (75.0-100.0) Arterial Blood HCO3 29.7 mmol/L (22.0-26.0) 26.0 mmol/L (22.0-26.0) Arterial Blood Oxygen Saturation 74.6 % (92.0-98.0) 81.3 % (92.0-98.0) Arterial Blood Base Excess 2.3 -0.4 Levy Test Positive Positive White Blood Count 17.8 K/UL (4.8-10.8) 27.3 K/UL (4.8-10.8) Red Blood Count 3.04 M/UL (4.20-5.40) 3.29 M/UL (4.20-5.40) Hemoglobin 9.5 G/DL (12.0-16.0) 9.9 G/DL (12.0-16.0) Hematocrit 28.0 % (37.0-47.0) 30.4 % (37.0-47.0) Mean Corpuscular Volume 92 FL (80-99) 92 FL (80-99) Mean Corpuscular Hemoglobin 31.3 PG (27.0-31.0) 30.1 PG (27.0-31.0) Mean Corpuscular Hemoglobin Concent 33.9 G/DL (32.0-36.0) 32.6 G/DL (32.0-36.0) Red Cell Distribution Width 16.1 % (11.6-14.8) 17.1 % (11.6-14.8) Platelet Count 51 K/UL (150-450) 106 K/UL (150-450) Mean Platelet Volume 9.8 FL (6.5-10.1) 8.3 FL (6.5-10.1) Neutrophils (%) (Auto) % (45.0-75.0) % (45.0-75.0) Lymphocytes (%) (Auto) % (20.0-45.0) % (20.0-45.0) Monocytes (%) (Auto) % (1.0-10.0) % (1.0-10.0) Eosinophils (%) (Auto) % (0.0-3.0) % (0.0-3.0) Basophils (%) (Auto) % (0.0-2.0) % (0.0-2.0) Differential Total Cells Counted 100 100 Neutrophils % (Manual) 97 % (45-75) 94 % (45-75) Lymphocytes % (Manual) 1 % (20-45) 3 % (20-45) Monocytes % (Manual) 2 % (1-10) 3 % (1-10) Eosinophils % (Manual) 0 % (0-3) 0 % (0-3) Basophils % (Manual) 0 % (0-2) 0 % (0-2) Band Neutrophils 0 % (0-8) 0 % (0-8) Platelet Estimate Decreased Decreased Platelet Morphology Normal Normal Hypochromasia 1+ 1+ Anisocytosis 1+ 1+ Sodium Level 139 mEQ/L (135-145) 136 mEQ/L (135-145) Potassium Level 3.5 mEQ/L (3.4-4.9) 3.7 mEQ/L (3.4-4.9) Chloride Level 94 mEQ/L (98-107) 91 mEQ/L (98-107) Carbon Dioxide Level 27 mEQ/L (20-30) 25 mEQ/L (20-30) Anion Gap 18 (5-15) 20 (5-15) Blood Urea Nitrogen 99 mg/dL (7-23) 118 mg/dL (7-23) Creatinine 4.3 mg/dL (0.5-0.9) 5.0 mg/dL (0.5-0.9) Estimat Glomerular Filtration Rate mL/min (>60) mL/min (>60) Glucose Level 217 mg/dL (74-106) 193 mg/dL (74-106) Calcium Level 7.9 mg/dL (8.6-10.2) 8.3 mg/dL (8.6-10.2) Phosphorus Level 6.3 mg/dL (2.5-4.8) 7.1 mg/dL (2.5-4.8) Total Bilirubin 0.6 mg/dL (0.0-1.2) Aspartate Amino Transf (AST/SGOT) 22 U/L (5-40) Alanine Aminotransferase (ALT/SGPT) 10 U/L (3-33) Alkaline Phosphatase 200 U/L (35-104) C-Reactive Protein, Quantitative 3.7 mg/dL (< 0.5) Pro-B-Type Natriuretic Peptide 41607 pg/mL (0-450) 9599 pg/mL (0-450) Total Protein 4.0 g/dL (6.6-8.7) Albumin 2.0 g/dL (3.5-5.2) Globulin 2.0 g/dL Albumin/Globulin Ratio 1.0 (1.0-2.7) Magnesium Level 2.0 mg/dL (1.7-2.5) Objective: WDWN chronically ill appearing; on the ventilator NAD coarse breath sounds bilaterally with reduced rhonchi but no wheeze orally intubated S1S2 RRR without MRG; rate controlled NABS nontender no HSM; feeding tube in place; no distention no CC; some edema but slightly improved nonfocal but arouseable more alert skin noted and examined pupils sluggish Accucheck: 179 FELIPE PATHAK Feb 20, 2017 09:21
--- NOTE | 2017-02-20 11:21 | General Progress Note ---
Assessment/Plan Status: unchanged Assessment/Plan Has acute respiratory distress- intubated in ICU Septic shock ( Had long talk with daughter Gali 01/19 ) - Acute renal failure and hyperKalemia - Renal failure, likely diabetic nephropathy / HTN - Sepsis , Pneumonia, Respiratory failure and Hypoxia other - h/o Cellulitis in diabetic foot right LE - Decubitus ulcer - Dementia - Diabetes mellitus - Nonpressure ulcer to level of fascia right lateral ankle - S/P ORIF right ankle Plan: intubate - ICU On hydrocortisone- Had permacath 01/30 weaning in process Adjust BP meds- Labile BP- - Clonidin PRN HD 02/21 Transfused addd phos binders monitor WBCs Monitor renal parameters and Vanco level- ARTUR Kidney done last admission- unremarkable Adjust BP meds- Avoid Nephrotoxics- discussed with CM Per orders Subjective ROS Limited/Unobtainable: Yes Allergies: Coded Allergies: MORPHINE (Verified Adverse Reaction, Severe, PARADOXICAL REACTION, 10/08/12 ) Objective Last 24 Hour Vital Signs Date Time Temp Pulse Resp B/P Pulse Ox O2 Delivery O2 Flow Rate FiO2 02/20/17 10:00 77 21 130/52 92 Mechanical Ventilator 50 02/20/17 09:21 77 25 50 02/20/17 09:00 76 24 134/58 93 Mechanical Ventilator 50 02/20/17 08:00 50 02/20/17 08:00 74 02/20/17 08:00 97.9 77 22 137/46 93 Mechanical Ventilator 50 02/20/17 07:22 74 27 50 02/20/17 07:00 76 22 131/47 93 Mechanical Ventilator 50 02/20/17 06:00 74 25 134/46 94 Mechanical Ventilator 50 02/20/17 05:19 72 25 50 02/20/17 05:00 76 28 111/38 95 Mechanical Ventilator 50 02/20/17 04:00 87 02/20/17 04:00 50 02/20/17 04:00 97.4 79 27 133/44 94 Mechanical Ventilator 50 02/20/17 03:00 80 31 125/50 99 Mechanical Ventilator 50 02/20/17 02:52 82 28 50 02/20/17 02:00 83 32 131/49 98 Mechanical Ventilator 50 02/20/17 01:28 82 31 50 02/20/17 01:00 81 31 136/46 97 Mechanical Ventilator 50 02/20/17 00:00 97.5 77 25 111/48 97 Mechanical Ventilator 50 02/20/17 00:00 50 02/20/17 00:00 111/48 02/20/17 00:00 76 02/19/17 23:26 81 28 50 02/19/17 23:00 83 28 130/52 97 Mechanical Ventilator 50 02/19/17 22:00 80 26 128/48 96 Mechanical Ventilator 50 02/19/17 21:09 78 24 50 02/19/17 21:00 78 24 117/42 97 Mechanical Ventilator 50 02/19/17 20:00 80 02/19/17 20:00 97.4 77 27 116/44 96 Mechanical Ventilator 50 02/19/17 19:02 77 28 50 02/19/17 19:00 79 20 116/40 96 Mechanical Ventilator 50 02/19/17 19:00 50 02/19/17 18:00 84 26 130/49 97 Mechanical Ventilator 55 02/19/17 17:29 76 27 65 02/19/17 17:00 76 23 115/62 100 Mechanical Ventilator 55 02/19/17 16:00 97.9 84 28 132/61 97 Mechanical Ventilator 55 02/19/17 16:00 55 02/19/17 16:00 83 02/19/17 15:17 89 28 65 02/19/17 15:00 83 21 98/48 97 Mechanical Ventilator 55 02/19/17 14:00 82 26 90/40 97 Mechanical Ventilator 55 02/19/17 13:00 90 26 99/34 100 Mechanical Ventilator 55 02/19/17 12:40 89 29 65 02/19/17 12:00 55 02/19/17 12:00 97.8 92 21 112/37 100 Mechanical Ventilator 55 02/19/17 12:00 90 02/19/17 11:30 79 24 70 Intake and Output 02/19/17 02/20/17 19:00 07:00 Intake Total 570 ml 480 ml Output Total 700 ml Balance -130 ml 480 ml Free Water 40 ml 20 ml IV Total 110 ml Tube Feeding 420 ml 420 ml Other 40 ml Output Urine Total 0 ml Hemodialysis UF 700 ml # Bowel Movements 4 2 Height (Feet): 5 Height (Inches): 1.00 Weight (Pounds): 200 General Appearance: no apparent distress Objective other PE not changed BERTRAM CASTAÑEDA Feb 20, 2017 11:21
[2017-02-20] MEDS: Meropenem 500 MG in NS 55 ML IVPB SCH (14:11)
--- NOTE | 2017-02-20 14:56 | General Progress Note ---
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 bilateral right greater than left pleural effusions and mediastinal lymphadenopathy - she is a poor candidate for biopsy and has a poor prognosis # Anemia 2/2 chronic disease - s/p multiple units of blood # Leukocytosis - counts increasing, related to sepsis and underlying infection, is on antibiotics # Respiratory failure s/p intubation # Respiratory acidosis # Renal failure- pt on HD # ALOC # Sepsis Recs: - Continue to monitor counts - Considering terminal extubation - Weaning ventilator - Transfuse to hgb goal >7, plt goal >20k if bleeding --> conservative management - Give PRBC during HD due to hgb<7 - She is off heparin, plavix, aspirin - Agree to administer FFP if INR >2 - Does not require a biopsy as has poor prognosis and poor outcome at this time - OG feeds at maximal rate - Appreciate consultation! continue to follow Subjective ROS Limited/Unobtainable: Yes Constitutional: Reports: no symptoms HEENT: Reports: no symptoms Cardiovascular: Reports: no symptoms Respiratory: Reports: other - vent Gastrointestinal/Abdominal: Reports: no symptoms Genitourinary: Reports: no symptoms 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: Reports: no symptoms Endocrine: Reports: no symptoms Hematologic/Lymphatic: Reports: anemia Allergies: Coded Allergies: MORPHINE (Verified Adverse Reaction, Severe, PARADOXICAL REACTION, 10/08/12 ) Subjective pt not bleeding, afebrile, weaning vent Objective Last 24 Hour Vital Signs Date Time Temp Pulse Resp B/P Pulse Ox O2 Delivery O2 Flow Rate FiO2 02/20/17 14:00 68 23 96/43 95 Mechanical Ventilator 60 02/20/17 13:40 60 02/20/17 13:38 60 02/20/17 13:13 74 28 50 02/20/17 13:00 76 25 109/43 99 Mechanical Ventilator 50 02/20/17 12:00 50 02/20/17 12:00 85 02/20/17 12:00 98.0 75 24 134/47 100 Mechanical Ventilator 50 02/20/17 11:22 78 25 50 02/20/17 11:00 76 18 140/43 92 Mechanical Ventilator 50 02/20/17 10:00 77 21 130/52 92 Mechanical Ventilator 50 02/20/17 09:21 77 25 50 02/20/17 09:00 76 24 134/58 93 Mechanical Ventilator 50 02/20/17 08:00 50 02/20/17 08:00 74 02/20/17 08:00 97.9 77 22 137/46 93 Mechanical Ventilator 50 02/20/17 07:22 74 27 50 02/20/17 07:00 76 22 131/47 93 Mechanical Ventilator 50 02/20/17 06:00 74 25 134/46 94 Mechanical Ventilator 50 02/20/17 05:19 72 25 50 02/20/17 05:00 76 28 111/38 95 Mechanical Ventilator 50 02/20/17 04:00 87 02/20/17 04:00 50 02/20/17 04:00 97.4 79 27 133/44 94 Mechanical Ventilator 50 02/20/17 03:00 80 31 125/50 99 Mechanical Ventilator 50 02/20/17 02:52 82 28 50 02/20/17 02:00 83 32 131/49 98 Mechanical Ventilator 50 02/20/17 01:28 82 31 50 02/20/17 01:00 81 31 136/46 97 Mechanical Ventilator 50 02/20/17 00:00 97.5 77 25 111/48 97 Mechanical Ventilator 50 02/20/17 00:00 50 02/20/17 00:00 111/48 02/20/17 00:00 76 02/19/17 23:26 81 28 50 02/19/17 23:00 83 28 130/52 97 Mechanical Ventilator 50 02/19/17 22:00 80 26 128/48 96 Mechanical Ventilator 50 02/19/17 21:09 78 24 50 02/19/17 21:00 78 24 117/42 97 Mechanical Ventilator 50 02/19/17 20:00 80 02/19/17 20:00 97.4 77 27 116/44 96 Mechanical Ventilator 50 02/19/17 19:02 77 28 50 02/19/17 19:00 79 20 116/40 96 Mechanical Ventilator 50 02/19/17 19:00 50 02/19/17 18:00 84 26 130/49 97 Mechanical Ventilator 55 02/19/17 17:29 76 27 65 02/19/17 17:00 76 23 115/62 100 Mechanical Ventilator 55 02/19/17 16:00 97.9 84 28 132/61 97 Mechanical Ventilator 55 02/19/17 16:00 55 02/19/17 16:00 83 02/19/17 15:17 89 28 65 02/19/17 15:00 83 21 98/48 97 Mechanical Ventilator 55 Intake and Output 02/19/17 02/20/17 19:00 07:00 Intake Total 570 ml 480 ml Output Total 700 ml Balance -130 ml 480 ml Free Water 40 ml 20 ml IV Total 110 ml Tube Feeding 420 ml 420 ml Other 40 ml Output Urine Total 0 ml Hemodialysis UF 700 ml # Bowel Movements 4 2 Height (Feet): 5 Height (Inches): 1.00 Weight (Pounds): 200 General Appearance: no apparent distress EENT: normal ENT inspection Neck: non-tender Cardiovascular: normal peripheral pulses Respiratory/Chest: chest wall non-tender Abdomen: normal bowel sounds Edema: 1+ Arm (L), 1+ Arm (R), no edema noted Leg (L), no edema noted Leg (R), no edema noted Pedal (L), no edema noted Pedal (R) Edema: trace edema Neurologic: unresponsive Skin: warm/dry Mariano Ortiz Feb 20, 2017 14:56
--- NOTE | 2017-02-20 19:39 | Infectious Diseases Prog Note ---
Assessment/Plan Assessment/Plan ASSESSMENT: 76 y/o female with: // Probable UTI - UCx(-) // Hypoxia, possible HCAP Scx: ESBL Kleb - CXR 02/02 : Extensive bilateral interstitial and airspace opacities, unchanged // h/o CoNS bacteremia 11/05 ( 01/09 ) ?real ( PICC tip+ ) vs contaminant r/o recurrence/persistence - surveillance BCx(-) // h/o right ankle cellulitis / osteomyelitis / hardware infection SP incomplete Rx ( recommended to complete 6 weeks IV daptomycin, cefepime ( end ), but daughter apparently declined at last discharge per documentation ) - SP hardware removal 12/15 - no culture sent - 3P bone scan: 3 phase increased activity in region of distal aspect of right fibula compatible with hardware loosening and/or osteomyelitis - XR: surgical hardware seen reducing old healed distal fibular and medial malleolar fractures. No acute fractures. No dislocations. Bones are demineralized. - elevated ESR, CRP - h/o right ankle ORIF // Probable sepsis,SP // Leukocytosis , increased ( on sternoids ) persistent not improving with prolong course of AB Rx // Diarrhea C-Diff Neg // ..US abd :neg of infectious process // VDRF intubated 02/07 // ARF on CKD --> IHD per renal SP placement of tunneled right jugular hemodialysis catheter. 01/29 // Dementia // DM2 - HbA1c 6.1% // h/o CAD - trop(-) x1 // [facility] resident // VRE colonized // No ABX allergies // Full Code PLAN: - DC Merrem d# 14 / , will start Mycamine as empiric Rx of probable candidiasis ( 02/07 SP DC Teflaro d# 10 ) ( 01/28 SP IV cefepime d# 10 IV Vanco d# 2 ) - monitor CBC, temperatures - monitor BMP - monitor CXR - respiratory support prn - DNR poor prognosis , Subjective Allergies: Coded Allergies: MORPHINE (Verified Adverse Reaction, Severe, PARADOXICAL REACTION, 10/08/12 ) Subjective on vent Objective Vital Signs Last 24 Hour Vital Signs Date Time Temp Pulse Resp B/P Pulse Ox O2 Delivery O2 Flow Rate FiO2 02/20/17 19:00 79 23 101/38 97 Mechanical Ventilator 60 02/20/17 18:58 78 23 60 02/20/17 18:00 85 21 118/48 97 Mechanical Ventilator 60 02/20/17 17:19 81 19 60 02/20/17 17:00 86 25 121/42 96 Mechanical Ventilator 60 02/20/17 16:00 78 02/20/17 16:00 97.8 91 25 103/42 96 Mechanical Ventilator 60 02/20/17 16:00 60 02/20/17 15:07 65 27 60 02/20/17 15:00 81 23 105/45 95 Mechanical Ventilator 60 02/20/17 14:00 68 23 96/43 95 Mechanical Ventilator 60 02/20/17 13:40 60 02/20/17 13:38 60 02/20/17 13:13 74 28 50 02/20/17 13:00 76 25 109/43 99 Mechanical Ventilator 50 02/20/17 12:00 50 02/20/17 12:00 85 02/20/17 12:00 98.0 75 24 134/47 100 Mechanical Ventilator 50 02/20/17 11:22 78 25 50 02/20/17 11:00 76 18 140/43 92 Mechanical Ventilator 50 02/20/17 10:00 77 21 130/52 92 Mechanical Ventilator 50 02/20/17 09:21 77 25 50 02/20/17 09:00 76 24 134/58 93 Mechanical Ventilator 50 02/20/17 08:00 50 02/20/17 08:00 74 02/20/17 08:00 97.9 77 22 137/46 93 Mechanical Ventilator 50 02/20/17 07:22 74 27 50 02/20/17 07:00 76 22 131/47 93 Mechanical Ventilator 50 02/20/17 06:00 74 25 134/46 94 Mechanical Ventilator 50 02/20/17 05:19 72 25 50 02/20/17 05:00 76 28 111/38 95 Mechanical Ventilator 50 02/20/17 04:00 87 02/20/17 04:00 50 02/20/17 04:00 97.4 79 27 133/44 94 Mechanical Ventilator 50 02/20/17 03:00 80 31 125/50 99 Mechanical Ventilator 50 02/20/17 02:52 82 28 50 02/20/17 02:00 83 32 131/49 98 Mechanical Ventilator 50 02/20/17 01:28 82 31 50 02/20/17 01:00 81 31 136/46 97 Mechanical Ventilator 50 02/20/17 00:00 97.5 77 25 111/48 97 Mechanical Ventilator 50 02/20/17 00:00 50 02/20/17 00:00 111/48 02/20/17 00:00 76 02/19/17 23:26 81 28 50 02/19/17 23:00 83 28 130/52 97 Mechanical Ventilator 50 02/19/17 22:00 80 26 128/48 96 Mechanical Ventilator 50 02/19/17 21:09 78 24 50 02/19/17 21:00 78 24 117/42 97 Mechanical Ventilator 50 02/19/17 20:00 80 02/19/17 20:00 97.4 77 27 116/44 96 Mechanical Ventilator 50 Height (Feet): 5 Height (Inches): 1.00 Weight (Pounds): 200 HEENT: anicteric Respiratory/Chest: normal breath sounds Cardiovascular: regular rhythm Abdomen: non distended Microbiology Date/Time Source Procedure Growth Status 02/19/17 06:30 Blood Blood Culture - Preliminary NO GROWTH AFTER 24 HOURS Resulted Current Medications Medications (Trade) Dose Ordered Sig/Rina Route PRN Reason Start Time Stop Time Status Last Admin Dose Admin Acetaminophen (Tylenol) 650 mg Q6H PRN ORAL Mild Pain/Temp > 100.5 02/07/17 17:00 03/09/17 16:59 Albuterol/ Ipratropium 3 ml 3 ml Q2H PRN HHN WHEEZING 02/15/17 23:00 02/20/17 22:59 02/18/17 15:18 Dextrose (Dextrose 50%) STAT PRN IV Hypoglycemia 02/07/17 17:00 03/09/17 16:59 Hydrocortisone (Solu-CORTEF) 50 mg Q12HR IV 02/20/17 21:00 03/22/17 20:59 Insulin Aspart (NovoLOG) Q6HR SUBQ 02/07/17 18:00 03/09/17 17:59 02/20/17 17:15 Lorazepam (Ativan 2mg/ml 1ml) 1 mg Q3H PRN IV Anxiety/Agitation 02/18/17 06:30 02/25/17 06:29 02/18/17 14:49 Menthol/Methyl Salicylate (Bengay) 1 applic FOUR TIMES A DAY TOPIC 02/07/17 18:00 03/09/17 17:59 4/21/17 17:14 Meropenem/Sodium Chloride (Merrem/Sodium Chloride) 55 ml @ 110 mls/hr DAILY@1400 IVPB 02/16/17 14:00 02/20/17 23:55 02/20/17 14:11 Nitroglycerin (Ntg) 0.4 mg Q5M X 3 DOSES PRN SL Prn Chest Pain 02/07/17 16:00 03/09/17 15:59 Norepinephrine Bitartrate/ Dextrose (Levophed/D5W 500ml) 558 ml @ 0 mls/hr Q24H IV 02/12/17 00:00 03/14/17 00:00 02/13/17 03:16 Ondansetron HCl (Zofran) 4 mg Q6H PRN IVP Nausea & Vomiting 02/07/17 17:00 03/09/17 16:59 02/11/17 10:59 Pantoprazole (Protonix) 40 mg Q12HR GT 02/19/17 21:00 03/21/17 20:59 02/20/17 08:00 Polyethylene Glycol 17 gm 17 gm DAILYPRN PRN GT Constipation 02/07/17 17:00 03/09/17 16:59 Sevelamer Carbonate (Renvela) 1,600 mg THREE TIMES A DAY NG 02/17/17 13:00 03/19/17 12:59 02/20/17 17:14 GISELLA JEROME M.D. Feb 20, 2017 19:39
--- NOTE | 2017-02-20 20:45 | General Progress Note ---
Assessment/Plan Assessment/Plan Assessment - TF intolerance - resolved - DM - CAD - Resp failure - Rising leukocytosis concerning - anemia - Azotemia - Declining Alk Phos with negative U/S Recommendations - abx - monitor residuals - elevate HOB - supportive care Subjective Allergies: Coded Allergies: MORPHINE (Verified Adverse Reaction, Severe, PARADOXICAL REACTION, 10/08/12 ) Subjective intubated TF tolerated well off pressors no events overnight Objective Last 24 Hour Vital Signs Date Time Temp Pulse Resp B/P Pulse Ox O2 Delivery O2 Flow Rate FiO2 02/20/17 20:00 75 02/20/17 20:00 97.4 75 21 98/44 98 Mechanical Ventilator 60 02/20/17 20:00 60 02/20/17 19:00 79 23 101/38 97 Mechanical Ventilator 60 02/20/17 18:58 78 23 60 02/20/17 18:00 85 21 118/48 97 Mechanical Ventilator 60 02/20/17 17:19 81 19 60 02/20/17 17:00 86 25 121/42 96 Mechanical Ventilator 60 02/20/17 16:00 78 02/20/17 16:00 97.8 91 25 103/42 96 Mechanical Ventilator 60 02/20/17 16:00 60 02/20/17 15:07 65 27 60 02/20/17 15:00 81 23 105/45 95 Mechanical Ventilator 60 02/20/17 14:00 68 23 96/43 95 Mechanical Ventilator 60 02/20/17 13:40 60 02/20/17 13:38 60 02/20/17 13:13 74 28 50 02/20/17 13:00 76 25 109/43 99 Mechanical Ventilator 50 02/20/17 12:00 50 02/20/17 12:00 85 02/20/17 12:00 98.0 75 24 134/47 100 Mechanical Ventilator 50 02/20/17 11:22 78 25 50 02/20/17 11:00 76 18 140/43 92 Mechanical Ventilator 50 02/20/17 10:00 77 21 130/52 92 Mechanical Ventilator 50 02/20/17 09:21 77 25 50 02/20/17 09:00 76 24 134/58 93 Mechanical Ventilator 50 02/20/17 08:00 50 02/20/17 08:00 74 02/20/17 08:00 97.9 77 22 137/46 93 Mechanical Ventilator 50 02/20/17 07:22 74 27 50 02/20/17 07:00 76 22 131/47 93 Mechanical Ventilator 50 02/20/17 06:00 74 25 134/46 94 Mechanical Ventilator 50 02/20/17 05:19 72 25 50 02/20/17 05:00 76 28 111/38 95 Mechanical Ventilator 50 02/20/17 04:00 87 02/20/17 04:00 50 02/20/17 04:00 97.4 79 27 133/44 94 Mechanical Ventilator 50 02/20/17 03:00 80 31 125/50 99 Mechanical Ventilator 50 02/20/17 02:52 82 28 50 02/20/17 02:00 83 32 131/49 98 Mechanical Ventilator 50 02/20/17 01:28 82 31 50 02/20/17 01:00 81 31 136/46 97 Mechanical Ventilator 50 02/20/17 00:00 97.5 77 25 111/48 97 Mechanical Ventilator 50 02/20/17 00:00 50 02/20/17 00:00 111/48 02/20/17 00:00 76 02/19/17 23:26 81 28 50 02/19/17 23:00 83 28 130/52 97 Mechanical Ventilator 50 02/19/17 22:00 80 26 128/48 96 Mechanical Ventilator 50 02/19/17 21:09 78 24 50 02/19/17 21:00 78 24 117/42 97 Mechanical Ventilator 50 Intake and Output 02/19/17 02/20/17 19:00 07:00 Intake Total 570 ml 480 ml Output Total 700 ml Balance -130 ml 480 ml Free Water 40 ml 20 ml IV Total 110 ml Tube Feeding 420 ml 420 ml Other 40 ml Output Urine Total 0 ml Hemodialysis UF 700 ml # Bowel Movements 4 2 Height (Feet): 5 Height (Inches): 1.00 Weight (Pounds): 200 Objective WDWN NCAT supple CTA RRR soft ND NT no edema ARLIN LONGORIA Feb 20, 2017 20:45
[2017-02-20] MEDS ORDERED: Hydrocortisone 100mg Inj IV SCH (21:00)
[2017-02-20] MEDS: Micafungin 100 MG in NS 110 ML IVPB SCH (21:04)
[2017-02-21] VITALS (24 sets, daily range): BP systolic 90–145; BP diastolic 30–72
[2017-02-21] MEDS: Norepinephrine Bitartrate 8 MG in D5W 500ml 550 ML IV SCH ×2
[2017-02-21] MEDS: NovoLOG Insulin Flexpen SUBQ SCH ×4 (00:31→18:32)
--- NOTE | 2017-02-21 04:38 | Progress Note ---
DATE: 02/20/2017 CARDIOLOGY PROGRESS NOTE SUBJECTIVE: The patient's condition remains tenuous. Blood pressure is stable, off pressors. Tenuous blood parameters have necessitated the discontinuation of all antiplatelet drugs. OBJECTIVE: VITAL SIGNS: Blood pressure 131/47, pulse 76, respirations 22, no fevers. LUNGS: Diminished breath sounds with rhonchi and rales bilaterally. HEART: Irregularly irregular rhythm. Normal S1 and S2. ABDOMEN: Soft. EXTREMITIES: A 1+ edema. LABORATORY DATA: No new labs today. Sputum is positive for ESBL Klebsiella pneumoniae. IMPRESSION: 1. Healthcare-acquired pneumonia. 2. Respiratory failure. 3. Sepsis. 4. Recovering shock. 5. Atrial fibrillation. 6. Acute respiratory distress syndrome. 7. Disseminated intravascular coagulopathy. 8. Remains critical and guarded. PLAN: 1. Antimicrobials per Infectious Disease custom decorating consultant. 2. Stress ulcer prophylaxis. 3. Steroid taper. 4. No additional cardiovascular medications are presently indicated. 5. Avoid pressors at this time. Joss Rsuh M.D. DR: ERNESTO JOB#: [id number] CC:
[2017-02-21 05:39] LABS: MEAN CORPUSCULAR HEMOGLOBIN 31.4 PG (27.0-31.0); MEAN CORPUSCULAR VOLUME 95 FL (80-99); MEAN PLATELET VOLUME 7.7 FL (6.5-10.1); PLATELET COUNT 113 K/UL (150-450); RED BLOOD COUNT 3.03 M/UL (4.20-5.40)
[2017-02-21 05:56] LABS: WHITE BLOOD COUNT 24.9 K/UL (4.8-10.8)
[2017-02-21 06:26] LABS: ALANINE AMINOTRANSFERASE 19 U/L (3-33); ALBUMIN/GLOBULIN RATIO 0.8 (1.0-2.7); ANION GAP 18 (5-15); ASPARTATE AMINO TRANSFERASE 39 U/L (5-40); CALCIUM 8.2 mg/dL (8.6-10.2); CARBON DIOXIDE 29 mEQ/L (20-30); CHLORIDE 94 mEQ/L (98-107); CREATININE 4.7 mg/dL (0.5-0.9); CRP QUANT 5.6 mg/dL (< 0.5); HEMOLYSIS 3; PHOSPHORUS 6.5 mg/dL (2.5-4.8); POTASSIUM 3.4 mEQ/L (3.4-4.9); SODIUM 141 mEQ/L (135-145); TOTAL PROTEIN 4.6 g/dL (6.6-8.7); URIC ACID 8.1 mg/dL (3.0-7.5)
--- NOTE | 2017-02-21 08:16 | Critical Care Progress Note ---
Assessment/Plan Assessment/Plan hypoxemia respiratory failure respiratory acidosis pulmonary infiltrates thrombocytopenia renal failure ALOC chronic encephalopathy septic shock leukocytosis pulmonary infiltrates ARDS DIC likely s/p transfusion atrial fibrillation hypotension PLAN wean as able; on SIMV reduce steroids to off and monitor WBC concern of recurring infection follow up labs and adjust levophed off monitor renal function; on HD per renal blood pressure labile but adequate antibiotics noted o2 needs better follow up ABG and CXR for change prognosis remains poor; if unable to wean, plan for terminal extubation ?thursday medications/laboratory data/nursing notes/ICU care reviewed in detail note reviewed and edited care discussed with RN and RT ICU time spent 40 minutes Critical Care - Subjective Interval Events: d/w son aware of status trying to decide regarding terminal extubation if unable to wean ROS Limited/Unobtainable: Yes Condition: critical EKG Rhythm: Sinus Rhythm Residuals: minimal Tube Feeding Tolerated: yes I&O: Intake and Output 02/20/17 02/21/17 19:00 07:00 Intake Total 600 ml 405 ml Balance 600 ml 405 ml IV Total 110 ml 110 ml Tube Feeding 420 ml 245 ml Blood Product 20 ml Other 50 ml 50 ml # Bowel Movements 2 4 Critical Care - Objective CXR: head ct without acute change ET-Tube: 7.0 ET Position: 22 Last 24 Hour Vital Signs Date Time Temp Pulse Resp B/P Pulse Ox O2 Delivery O2 Flow Rate FiO2 02/21/17 07:14 86 30 60 02/21/17 07:01 Mechanical Ventilator 15.0 60 02/21/17 07:00 69 20 116/40 94 Mechanical Ventilator 60 02/21/17 06:00 77 20 122/58 94 Mechanical Ventilator 60 02/21/17 05:00 76 25 125/54 98 Mechanical Ventilator 60 02/21/17 04:45 Mechanical Ventilator 15.0 60 02/21/17 04:42 83 26 60 02/21/17 04:00 81 02/21/17 04:00 97.6 77 21 117/47 97 Mechanical Ventilator 60 02/21/17 04:00 60 02/21/17 03:26 76 21 60 02/21/17 03:00 75 25 117/47 97 Mechanical Ventilator 60 02/21/17 02:00 81 25 132/49 97 Mechanical Ventilator 60 02/21/17 01:00 72 25 104/43 96 Mechanical Ventilator 60 02/21/17 00:59 75 21 60 02/21/17 00:00 79 02/21/17 00:00 60 02/21/17 00:00 126/57 02/21/17 00:00 97.3 78 28 116/45 96 Mechanical Ventilator 60 02/20/17 23:23 89 27 60 02/20/17 23:00 88 22 126/57 94 Mechanical Ventilator 60 02/20/17 22:00 80 22 128/44 96 Mechanical Ventilator 60 02/20/17 21:00 77 25 102/35 97 Mechanical Ventilator 60 02/20/17 20:56 72 23 60 02/20/17 20:00 75 02/20/17 20:00 97.4 75 21 98/44 98 Mechanical Ventilator 60 02/20/17 20:00 60 02/20/17 19:00 79 23 101/38 97 Mechanical Ventilator 60 02/20/17 18:58 78 23 60 02/20/17 18:00 85 21 118/48 97 Mechanical Ventilator 60 02/20/17 17:19 81 19 60 02/20/17 17:00 86 25 121/42 96 Mechanical Ventilator 60 02/20/17 16:00 78 02/20/17 16:00 97.8 91 25 103/42 96 Mechanical Ventilator 60 02/20/17 16:00 60 02/20/17 15:07 65 27 60 02/20/17 15:00 81 23 105/45 95 Mechanical Ventilator 60 02/20/17 14:00 68 23 96/43 95 Mechanical Ventilator 60 02/20/17 13:40 60 02/20/17 13:38 60 02/20/17 13:13 74 28 50 02/20/17 13:00 76 25 109/43 99 Mechanical Ventilator 50 02/20/17 12:00 50 02/20/17 12:00 85 02/20/17 12:00 98.0 75 24 134/47 100 Mechanical Ventilator 50 02/20/17 11:22 78 25 50 02/20/17 11:00 76 18 140/43 92 Mechanical Ventilator 50 02/20/17 10:00 77 21 130/52 92 Mechanical Ventilator 50 02/20/17 09:21 77 25 50 02/20/17 09:00 76 24 134/58 93 Mechanical Ventilator 50 Labs: Labs Test 02/18/17 09:00 02/19/17 03:35 02/21/17 04:30 Arterial Blood pH 7.324 (7.350-7.450) Arterial Blood Partial Pressure CO2 51.2 mmHg (35.0-45.0) Arterial Blood Partial Pressure O2 49.9 mmHg (75.0-100.0) Arterial Blood HCO3 26.0 mmol/L (22.0-26.0) Arterial Blood Oxygen Saturation 81.3 % (92.0-98.0) Arterial Blood Base Excess -0.4 Levy Test Positive White Blood Count 27.3 K/UL (4.8-10.8) 24.9 K/UL (4.8-10.8) Red Blood Count 3.29 M/UL (4.20-5.40) 3.03 M/UL (4.20-5.40) Hemoglobin 9.9 G/DL (12.0-16.0) 9.5 G/DL (12.0-16.0) Hematocrit 30.4 % (37.0-47.0) 28.9 % (37.0-47.0) Mean Corpuscular Volume 92 FL (80-99) 95 FL (80-99) Mean Corpuscular Hemoglobin 30.1 PG (27.0-31.0) 31.4 PG (27.0-31.0) Mean Corpuscular Hemoglobin Concent 32.6 G/DL (32.0-36.0) 33.0 G/DL (32.0-36.0) Red Cell Distribution Width 17.1 % (11.6-14.8) 18.0 % (11.6-14.8) Platelet Count 106 K/UL (150-450) 113 K/UL (150-450) Mean Platelet Volume 8.3 FL (6.5-10.1) 7.7 FL (6.5-10.1) Neutrophils (%) (Auto) % (45.0-75.0) % (45.0-75.0) Lymphocytes (%) (Auto) % (20.0-45.0) % (20.0-45.0) Monocytes (%) (Auto) % (1.0-10.0) % (1.0-10.0) Eosinophils (%) (Auto) % (0.0-3.0) % (0.0-3.0) Basophils (%) (Auto) % (0.0-2.0) % (0.0-2.0) Differential Total Cells Counted 100 Neutrophils % (Manual) 94 % (45-75) Lymphocytes % (Manual) 3 % (20-45) Monocytes % (Manual) 3 % (1-10) Eosinophils % (Manual) 0 % (0-3) Basophils % (Manual) 0 % (0-2) Band Neutrophils 0 % (0-8) Platelet Estimate Decreased Platelet Morphology Normal Hypochromasia 1+ Anisocytosis 1+ Sodium Level 136 mEQ/L (135-145) 141 mEQ/L (135-145) Potassium Level 3.7 mEQ/L (3.4-4.9) 3.4 mEQ/L (3.4-4.9) Chloride Level 91 mEQ/L (98-107) 94 mEQ/L (98-107) Carbon Dioxide Level 25 mEQ/L (20-30) 29 mEQ/L (20-30) Anion Gap 20 (5-15) 18 (5-15) Blood Urea Nitrogen 118 mg/dL (7-23) 103 mg/dL (7-23) Creatinine 5.0 mg/dL (0.5-0.9) 4.7 mg/dL (0.5-0.9) Estimat Glomerular Filtration Rate mL/min (>60) mL/min (>60) Glucose Level 193 mg/dL (74-106) 191 mg/dL (74-106) Calcium Level 8.3 mg/dL (8.6-10.2) 8.2 mg/dL (8.6-10.2) Phosphorus Level 7.1 mg/dL (2.5-4.8) 6.5 mg/dL (2.5-4.8) Magnesium Level 2.0 mg/dL (1.7-2.5) 2.0 mg/dL (1.7-2.5) Pro-B-Type Natriuretic Peptide 9599 pg/mL (0-450) 8147 pg/mL (0-450) Uric Acid 8.1 mg/dL (3.0-7.5) Total Bilirubin 0.4 mg/dL (0.0-1.2) Aspartate Amino Transf (AST/SGOT) 39 U/L (5-40) Alanine Aminotransferase (ALT/SGPT) 19 U/L (3-33) Alkaline Phosphatase 233 U/L (35-104) C-Reactive Protein, Quantitative 5.6 mg/dL (< 0.5) Total Protein 4.6 g/dL (6.6-8.7) Albumin 2.1 g/dL (3.5-5.2) Globulin 2.5 g/dL Albumin/Globulin Ratio 0.8 (1.0-2.7) Objective: WDWN chronically ill appearing; on the ventilator arouseable NAD coarse breath sounds bilaterally with reduced rhonchi but no wheeze orally intubated S1S2 RRR without MRG; rate controlled NABS nontender no HSM; feeding tube in place; no distention no CC; some edema nonfocal LOC without change skin noted and examined pupils sluggish Micro: Microbiology Date/Time Source Procedure Growth Status 02/19/17 06:30 Blood Blood Culture - Preliminary NO GROWTH AFTER 24 HOURS Resulted Accucheck: 185 FELIPE PATHAK Feb 21, 2017 08:16
[2017-02-21 09:29] LABS: ANISOCYTOSIS 1+; BAND NEUTROPHILS % (MANUAL) 0 % (0-8); BASOPHILS % (MANUAL) 0 % (0-2); EOSINOPHILS % (MANUAL) 0 % (0-3); HYPOCHROMASIA 1+; LYMPHOCYTES % (MANUAL) 2 % (20-45); NEUTROPHILS % (MANUAL) 95 % (45-75); PLATELET ESTIMATE DECREASED; PLATELET MORPHOLOGY NORMAL; TOTAL CELLS COUNTED 100
--- NOTE | 2017-02-21 09:46 | General Progress Note ---
Assessment/Plan Status: unchanged Assessment/Plan Has acute respiratory distress- intubated in ICU Septic shock ( Had long talk with daughter Gali 01/19 ) - Acute renal failure and hyperKalemia - Renal failure, likely diabetic nephropathy / HTN - Sepsis , Pneumonia, Respiratory failure and Hypoxia other - h/o Cellulitis in diabetic foot right LE - Decubitus ulcer - Dementia - Diabetes mellitus - Nonpressure ulcer to level of fascia right lateral ankle - S/P ORIF right ankle Plan: intubate - ICU On hydrocortisone- Had permacath 01/30 weaning in process Adjust BP meds- Labile BP- - Clonidin PRN HD 02/21 - done tolerated well. Transfused addd phos binders monitor WBCs Monitor renal parameters and Vanco level- ARTUR Kidney done last admission- unremarkable Adjust BP meds- Avoid Nephrotoxics- discussed with CM Per orders Subjective ROS Limited/Unobtainable: Yes Allergies: Coded Allergies: MORPHINE (Verified Adverse Reaction, Severe, PARADOXICAL REACTION, 10/08/12 ) Objective Last 24 Hour Vital Signs Date Time Temp Pulse Resp B/P Pulse Ox O2 Delivery O2 Flow Rate FiO2 02/21/17 09:13 95 23 60 02/21/17 08:35 Mechanical Ventilator 15.0 60 02/21/17 08:34 Mechanical Ventilator 15.0 60 02/21/17 08:31 Mechanical Ventilator 15.0 60 02/21/17 07:14 86 30 60 02/21/17 07:01 Mechanical Ventilator 15.0 60 02/21/17 07:00 69 20 116/40 94 Mechanical Ventilator 60 02/21/17 06:00 77 20 122/58 94 Mechanical Ventilator 60 02/21/17 05:00 76 25 125/54 98 Mechanical Ventilator 60 02/21/17 04:45 Mechanical Ventilator 15.0 60 02/21/17 04:42 83 26 60 02/21/17 04:00 81 02/21/17 04:00 97.6 77 21 117/47 97 Mechanical Ventilator 60 02/21/17 04:00 60 02/21/17 03:26 76 21 60 02/21/17 03:00 75 25 117/47 97 Mechanical Ventilator 60 02/21/17 02:00 81 25 132/49 97 Mechanical Ventilator 60 02/21/17 01:00 72 25 104/43 96 Mechanical Ventilator 60 02/21/17 00:59 75 21 60 02/21/17 00:00 79 02/21/17 00:00 60 02/21/17 00:00 126/57 02/21/17 00:00 97.3 78 28 116/45 96 Mechanical Ventilator 60 02/20/17 23:23 89 27 60 02/20/17 23:00 88 22 126/57 94 Mechanical Ventilator 60 02/20/17 22:00 80 22 128/44 96 Mechanical Ventilator 60 02/20/17 21:00 77 25 102/35 97 Mechanical Ventilator 60 02/20/17 20:56 72 23 60 02/20/17 20:00 75 02/20/17 20:00 97.4 75 21 98/44 98 Mechanical Ventilator 60 02/20/17 20:00 60 02/20/17 19:00 79 23 101/38 97 Mechanical Ventilator 60 02/20/17 18:58 78 23 60 02/20/17 18:00 85 21 118/48 97 Mechanical Ventilator 60 02/20/17 17:19 81 19 60 02/20/17 17:00 86 25 121/42 96 Mechanical Ventilator 60 02/20/17 16:00 78 02/20/17 16:00 97.8 91 25 103/42 96 Mechanical Ventilator 60 02/20/17 16:00 60 02/20/17 15:07 65 27 60 02/20/17 15:00 81 23 105/45 95 Mechanical Ventilator 60 02/20/17 14:00 68 23 96/43 95 Mechanical Ventilator 60 02/20/17 13:40 60 02/20/17 13:38 60 02/20/17 13:13 74 28 50 02/20/17 13:00 76 25 109/43 99 Mechanical Ventilator 50 02/20/17 12:00 50 02/20/17 12:00 85 02/20/17 12:00 98.0 75 24 134/47 100 Mechanical Ventilator 50 02/20/17 11:22 78 25 50 02/20/17 11:00 76 18 140/43 92 Mechanical Ventilator 50 02/20/17 10:00 77 21 130/52 92 Mechanical Ventilator 50 Intake and Output 02/20/17 02/21/17 19:00 07:00 Intake Total 600 ml 405 ml Balance 600 ml 405 ml IV Total 110 ml 110 ml Tube Feeding 420 ml 245 ml Blood Product 20 ml Other 50 ml 50 ml # Bowel Movements 2 4 Laboratory Tests 02/21/17 04:30: White Blood Count 24.9*H, Red Blood Count 3.03L, Hemoglobin 9.5L, Hematocrit 28.9L, Mean Corpuscular Volume 95, Mean Corpuscular Hemoglobin 31.4H, Mean Corpuscular Hemoglobin Concent 33.0, Red Cell Distribution Width 18.0H, Platelet Count 113L, Mean Platelet Volume 7.7, Neutrophils (%) (Auto) , Lymphocytes (%) (Auto) , Monocytes (%) (Auto) , Eosinophils (%) (Auto) , Basophils (%) (Auto) , Differential Total Cells Counted 100, Neutrophils % ( Manual) 95H, Lymphocytes % (Manual) 2L, Monocytes % (Manual) 3, Eosinophils % ( Manual) 0, Basophils % (Manual) 0, Band Neutrophils 0, Platelet Estimate DecreasedL, Platelet Morphology Normal, Hypochromasia 1+, Anisocytosis 1+, Sodium Level 141, Potassium Level 3.4, Chloride Level 94L, Carbon Dioxide Level 29, Anion Gap 18H, Blood Urea Nitrogen 103H, Creatinine 4.7H, Estimat Glomerular Filtration Rate , Glucose Level 191H, Uric Acid 8.1H, Calcium Level 8.2L, Phosphorus Level 6.5H, Magnesium Level 2.0, Total Bilirubin 0.4, Aspartate Amino Transf (AST/SGOT) 39, Alanine Aminotransferase (ALT/SGPT) 19, Alkaline Phosphatase 233H, C-Reactive Protein, Quantitative 5.6H, Pro-B-Type Natriuretic Peptide 8147H, Total Protein 4.6L, Albumin 2.1L, Globulin 2.5, Albumin/Globulin Ratio 0.8L Height (Feet): 5 Height (Inches): 1.00 Weight (Pounds): 200 General Appearance: no apparent distress Objective other PE not changed BERTRAM CASTAÑEDA Feb 21, 2017 09:46
[2017-02-21] MEDS: Analgesic Balm 15gm TOPIC SCH ×4 (10:00→21:06)
[2017-02-21] MEDS: Renvela 800mg Pkt NG SCH ×3 (10:00→18:31)
[2017-02-21] MEDS: Hydrocortisone 100mg Inj IV SCH (10:00)
[2017-02-21] MEDS: Pantoprazole 40mg pkt GT SCH ×2 (10:01→21:06)
--- NOTE | 2017-02-21 17:55 | General Progress Note ---
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 bilateral right greater than left pleural effusions and mediastinal lymphadenopathy - she is a poor candidate for biopsy and has a poor prognosis # Anemia 2/2 chronic disease - s/p multiple units of blood # Leukocytosis - counts increasing, related to sepsis and underlying infection, is on antibiotics # Respiratory failure s/p intubation # Respiratory acidosis # Renal failure- pt on HD # ALOC # Sepsis Recs: - Continue to monitor counts - Considering terminal extubation - Weaning ventilator - Transfuse to hgb goal >7, plt goal >20k if bleeding --> conservative management - Give PRBC during HD due to hgb<7 - She is off heparin, plavix, aspirin - Agree to administer FFP if INR >2 - Does not require a biopsy as has poor prognosis and poor outcome at this time - OG feeds at maximal rate - Appreciate consultation! continue to follow Subjective ROS Limited/Unobtainable: Yes Constitutional: Reports: no symptoms HEENT: Reports: no symptoms Cardiovascular: Reports: no symptoms Respiratory: Reports: no symptoms Gastrointestinal/Abdominal: Reports: no symptoms Genitourinary: Reports: no symptoms 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: Reports: no symptoms Endocrine: Reports: no symptoms Hematologic/Lymphatic: Reports: anemia Allergies: Coded Allergies: MORPHINE (Verified Adverse Reaction, Severe, PARADOXICAL REACTION, 10/08/12 ) Subjective continue to wean vent, chronically ill, NAD, no bleeding events Objective Last 24 Hour Vital Signs Date Time Temp Pulse Resp B/P Pulse Ox O2 Delivery O2 Flow Rate FiO2 02/21/17 17:12 81 27 60 02/21/17 17:00 82 22 137/36 99 Mechanical Ventilator 60 02/21/17 16:00 98.4 86 24 139/30 98 Mechanical Ventilator 60 02/21/17 16:00 79 02/21/17 16:00 60 02/21/17 15:18 84 25 60 02/21/17 15:00 84 26 120/41 100 Mechanical Ventilator 60 02/21/17 14:00 78 25 109/34 100 Mechanical Ventilator 60 02/21/17 13:00 82 29 94/34 99 Mechanical Ventilator 60 02/21/17 13:00 79 26 60 02/21/17 12:00 81 4/22/17 12:00 98.4 83 30 103/42 97 Mechanical Ventilator 60 02/21/17 12:00 60 02/21/17 11:00 81 22 107/44 100 Mechanical Ventilator 60 02/21/17 10:56 82 27 60 02/21/17 10:00 79 23 90/56 94 Mechanical Ventilator 60 02/21/17 09:13 95 23 60 02/21/17 09:00 72 25 103/45 97 Mechanical Ventilator 60 02/21/17 08:35 Mechanical Ventilator 15.0 60 02/21/17 08:34 Mechanical Ventilator 15.0 60 02/21/17 08:31 Mechanical Ventilator 15.0 60 02/21/17 08:00 97.3 82 24 118/72 94 Mechanical Ventilator 60 02/21/17 08:00 60 02/21/17 08:00 72 02/21/17 07:14 86 30 60 02/21/17 07:01 Mechanical Ventilator 15.0 60 02/21/17 07:00 69 20 116/40 94 Mechanical Ventilator 60 02/21/17 06:00 77 20 122/58 94 Mechanical Ventilator 60 02/21/17 05:00 76 25 125/54 98 Mechanical Ventilator 60 02/21/17 04:45 Mechanical Ventilator 15.0 60 02/21/17 04:42 83 26 60 02/21/17 04:00 81 02/21/17 04:00 97.6 77 21 117/47 97 Mechanical Ventilator 60 02/21/17 04:00 60 02/21/17 03:26 76 21 60 02/21/17 03:00 75 25 117/47 97 Mechanical Ventilator 60 02/21/17 02:00 81 25 132/49 97 Mechanical Ventilator 60 02/21/17 01:00 72 25 104/43 96 Mechanical Ventilator 60 02/21/17 00:59 75 21 60 02/21/17 00:00 79 02/21/17 00:00 60 02/21/17 00:00 126/57 02/21/17 00:00 97.3 78 28 116/45 96 Mechanical Ventilator 60 02/20/17 23:23 89 27 60 02/20/17 23:00 88 22 126/57 94 Mechanical Ventilator 60 02/20/17 22:00 80 22 128/44 96 Mechanical Ventilator 60 02/20/17 21:00 77 25 102/35 97 Mechanical Ventilator 60 02/20/17 20:56 72 23 60 02/20/17 20:00 75 02/20/17 20:00 97.4 75 21 98/44 98 Mechanical Ventilator 60 02/20/17 20:00 60 02/20/17 19:00 79 23 101/38 97 Mechanical Ventilator 60 02/20/17 18:58 78 23 60 02/20/17 18:00 85 21 118/48 97 Mechanical Ventilator 60 Intake and Output 02/20/17 02/21/17 19:00 07:00 Intake Total 600 ml 405 ml Balance 600 ml 405 ml IV Total 110 ml 110 ml Tube Feeding 420 ml 245 ml Blood Product 20 ml Other 50 ml 50 ml # Bowel Movements 2 4 Laboratory Tests 02/21/17 04:30: White Blood Count 24.9*H, Red Blood Count 3.03L, Hemoglobin 9.5L, Hematocrit 28.9L, Mean Corpuscular Volume 95, Mean Corpuscular Hemoglobin 31.4H, Mean Corpuscular Hemoglobin Concent 33.0, Red Cell Distribution Width 18.0H, Platelet Count 113L, Mean Platelet Volume 7.7, Neutrophils (%) (Auto) , Lymphocytes (%) (Auto) , Monocytes (%) (Auto) , Eosinophils (%) (Auto) , Basophils (%) (Auto) , Differential Total Cells Counted 100, Neutrophils % ( Manual) 95H, Lymphocytes % (Manual) 2L, Monocytes % (Manual) 3, Eosinophils % ( Manual) 0, Basophils % (Manual) 0, Band Neutrophils 0, Platelet Estimate DecreasedL, Platelet Morphology Normal, Hypochromasia 1+, Anisocytosis 1+, Sodium Level 141, Potassium Level 3.4, Chloride Level 94L, Carbon Dioxide Level 29, Anion Gap 18H, Blood Urea Nitrogen 103H, Creatinine 4.7H, Estimat Glomerular Filtration Rate , Glucose Level 191H, Uric Acid 8.1H, Calcium Level 8.2L, Phosphorus Level 6.5H, Magnesium Level 2.0, Total Bilirubin 0.4, Aspartate Amino Transf (AST/SGOT) 39, Alanine Aminotransferase (ALT/SGPT) 19, Alkaline Phosphatase 233H, C-Reactive Protein, Quantitative 5.6H, Pro-B-Type Natriuretic Peptide 8147H, Total Protein 4.6L, Albumin 2.1L, Globulin 2.5, Albumin/Globulin Ratio 0.8L Height (Feet): 5 Height (Inches): 1.00 Weight (Pounds): 200 General Appearance: WD/WN EENT: normal ENT inspection Neck: non-tender Cardiovascular: normal peripheral pulses Respiratory/Chest: rhonchi - bilaterally Abdomen: normal bowel sounds Edema: no edema noted Leg (L), no edema noted Leg (R), no edema noted Pedal (L) , no edema noted Pedal (R), no edema noted Generalized Neurologic: unresponsive Skin: warm/dry Mariano Ortiz Feb 21, 2017 17:55
[2017-02-21] MEDS: Micafungin 100 MG in NS 110 ML IVPB SCH (21:06)
[2017-02-22] VITALS (24 sets, daily range): BP systolic 93–145; BP diastolic 28–56
[2017-02-22] MEDS: NovoLOG Insulin Flexpen SUBQ SCH ×5 (00:18→23:41)
[2017-02-22] MEDS: DuoNeb 0.5-3(2.5)mg/3ml neb HHN PRN ×3 (02:39→18:52)
[2017-02-22 05:24] LABS: MEAN CORPUSCULAR HEMOGLOBIN 31.2 PG (27.0-31.0); MEAN CORPUSCULAR HGB CONC 32.5 G/DL (32.0-36.0); MEAN CORPUSCULAR VOLUME 96 FL (80-99); MEAN PLATELET VOLUME 8.1 FL (6.5-10.1); PLATELET COUNT 89 K/UL (150-450); RED BLOOD COUNT 2.95 M/UL (4.20-5.40); RED CELL DISTRIBUTION WIDTH 17.9 % (11.6-14.8)
--- NOTE | 2017-02-22 08:24 | Infectious Diseases Prog Note ---
Assessment/Plan Assessment/Plan A: Pneumonia with Klebsiella s/p Rx Hypercapnic respiratory failure ESRD started on HD DM history of ankle fracture Persistent leukocytosis P: continue Micafungin Subjective ROS Limited/Unobtainable: Yes Allergies: Coded Allergies: MORPHINE (Verified Adverse Reaction, Severe, PARADOXICAL REACTION, 10/08/12 ) Objective Vital Signs Last 24 Hour Vital Signs Date Time Temp Pulse Resp B/P Pulse Ox O2 Delivery O2 Flow Rate FiO2 02/22/17 08:00 88 02/22/17 07:20 91 29 60 02/22/17 07:00 84 29 130/44 100 Mechanical Ventilator 60 02/22/17 06:00 86 29 130/44 100 Mechanical Ventilator 60 02/22/17 05:33 84 24 60 02/22/17 05:00 86 29 133/44 100 Mechanical Ventilator 60 02/22/17 04:00 98.2 82 29 96/36 100 Mechanical Ventilator 60 02/22/17 04:00 60 02/22/17 04:00 86 02/22/17 03:02 80 22 99 Mechanical Ventilator 02/22/17 03:00 85 29 108/34 100 Mechanical Ventilator 60 02/22/17 02:39 84 31 100 Mechanical Ventilator 60 02/22/17 02:38 85 29 60 02/22/17 02:00 80 29 105/39 100 Mechanical Ventilator 60 02/22/17 01:00 79 23 96/28 100 Mechanical Ventilator 60 02/22/17 00:47 81 22 60 02/22/17 00:00 60 02/22/17 00:00 98.0 82 29 125/40 100 Mechanical Ventilator 60 02/22/17 00:00 80 02/21/17 23:00 79 23 90/38 100 Mechanical Ventilator 60 02/21/17 22:46 81 28 60 02/21/17 22:00 78 23 103/40 100 Mechanical Ventilator 60 02/21/17 21:00 84 30 104/46 100 Mechanical Ventilator 60 02/21/17 20:40 79 29 60 02/21/17 20:00 60 02/21/17 20:00 98.6 85 24 145/45 100 Mechanical Ventilator 60 02/21/17 19:38 84 02/21/17 19:00 84 24 140/43 100 Mechanical Ventilator 60 02/21/17 18:40 86 25 60 02/21/17 18:00 86 25 124/48 99 Mechanical Ventilator 60 02/21/17 17:12 81 27 60 02/21/17 17:00 82 22 137/36 99 Mechanical Ventilator 60 02/21/17 16:00 98.4 86 24 139/30 98 Mechanical Ventilator 60 02/21/17 16:00 79 02/21/17 16:00 60 02/21/17 15:18 84 25 60 02/21/17 15:00 84 26 120/41 100 Mechanical Ventilator 60 02/21/17 14:00 78 25 109/34 100 Mechanical Ventilator 60 02/21/17 13:00 82 29 94/34 99 Mechanical Ventilator 60 02/21/17 13:00 79 26 60 02/21/17 12:00 81 02/21/17 12:00 98.4 83 30 103/42 97 Mechanical Ventilator 60 02/21/17 12:00 60 02/21/17 11:00 81 22 107/44 100 Mechanical Ventilator 60 02/21/17 10:56 82 27 60 02/21/17 10:00 79 23 90/56 94 Mechanical Ventilator 60 02/21/17 09:13 95 23 60 02/21/17 09:00 72 25 103/45 97 Mechanical Ventilator 60 02/21/17 08:35 Mechanical Ventilator 15.0 60 02/21/17 08:34 Mechanical Ventilator 15.0 60 02/21/17 08:31 Mechanical Ventilator 15.0 60 Height (Feet): 5 Height (Inches): 1.00 Weight (Pounds): 200 HEENT: other - orally intubated Respiratory/Chest: lungs clear, other - on ventilaor Cardiovascular: tachycardia, other - R PermaCath Abdomen: soft, non tender, other - orogastric tube Extremities: other - generalized edema 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: other - opens eyes Laboratory Tests Test 02/22/17 04:20 White Blood Count 20.0 K/UL (4.8-10.8) H Red Blood Count 2.95 M/UL (4.20-5.40) L Hemoglobin 9.2 G/DL (12.0-16.0) L Hematocrit 28.3 % (37.0-47.0) L Mean Corpuscular Volume 96 FL (80-99) Mean Corpuscular Hemoglobin 31.2 PG (27.0-31.0) H Mean Corpuscular Hemoglobin Concent 32.5 G/DL (32.0-36.0) Red Cell Distribution Width 17.9 % (11.6-14.8) H Platelet Count 89 K/UL (150-450) L Mean Platelet Volume 8.1 FL (6.5-10.1) Neutrophils (%) (Auto) % (45.0-75.0) Lymphocytes (%) (Auto) % (20.0-45.0) Monocytes (%) (Auto) % (1.0-10.0) Eosinophils (%) (Auto) % (0.0-3.0) Basophils (%) (Auto) % (0.0-2.0) Neutrophils % (Manual) Pending Lymphocytes % (Manual) Pending Platelet Estimate Pending Platelet Morphology Pending Current Medications Medications (Trade) Dose Ordered Sig/Rina Route PRN Reason Start Time Stop Time Status Last Admin Dose Admin Acetaminophen (Tylenol) 650 mg Q6H PRN ORAL Mild Pain/Temp > 100.5 02/07/17 17:00 03/09/17 16:59 Albuterol/ Ipratropium (DuoNeb 0.5-3(2.5)mg/3ml) 3 ml Q2H PRN HHN Shortness of Breath 02/20/17 23:30 02/25/17 23:29 02/22/17 02:39 Dextrose (Dextrose 50%) STAT PRN IV Hypoglycemia 02/07/17 17:00 03/09/17 16:59 Hydrocortisone (Solu-CORTEF) 50 mg DAILY IV 02/21/17 09:00 03/23/17 08:59 02/21/17 10:00 Insulin Aspart (NovoLOG) Q6HR SUBQ 02/07/17 18:00 03/09/17 17:59 02/22/17 06:33 Lorazepam (Ativan 2mg/ml 1ml) 1 mg Q3H PRN IV Anxiety/Agitation 02/18/17 06:30 02/25/17 06:29 02/18/17 14:49 Menthol/Methyl Salicylate (Bengay) 1 applic FOUR TIMES A DAY TOPIC 02/07/17 18:00 03/09/17 17:59 02/21/17 21:06 Micafungin Sodium/ Sodium Chloride (Mycamine/Sodium Chloride) 110 ml @ 110 mls/hr Q24H IVPB 02/20/17 21:00 02/27/17 20:59 02/21/17 21:06 Nitroglycerin (Ntg) 0.4 mg Q5M X 3 DOSES PRN SL Prn Chest Pain 02/07/17 16:00 03/09/17 15:59 Ondansetron HCl (Zofran) 4 mg Q6H PRN IVP Nausea & Vomiting 02/07/17 17:00 03/09/17 16:59 02/11/17 10:59 Pantoprazole 40 mg 40 mg Q12HR GT 02/19/17 21:00 03/21/17 20:59 02/21/17 21:06 Polyethylene Glycol (Miralax) 17 gm DAILYPRN PRN GT Constipation 02/07/17 17:00 03/09/17 16:59 Sevelamer Carbonate (Renvela) 1,600 mg THREE TIMES A DAY NG 02/17/17 13:00 03/19/17 12:59 02/21/17 18:31 NIVIA GUARDADO Feb 22, 2017 08:24
[2017-02-22] MEDS: Renvela 800mg Pkt NG SCH ×3 (09:06→17:37)
[2017-02-22] MEDS: Hydrocortisone 100mg Inj IV SCH (09:06)
[2017-02-22] MEDS: Analgesic Balm 15gm TOPIC SCH ×4 (09:06→22:00)
[2017-02-22] MEDS: Pantoprazole 40mg pkt GT SCH ×2 (09:06→21:00)
[2017-02-22 09:38] LABS: BAND NEUTROPHILS % (MANUAL) 0 % (0-8); BASOPHILS % (MANUAL) 0 % (0-2); EOSINOPHILS % (MANUAL) 0 % (0-3); LYMPHOCYTES % (MANUAL) 5 % (20-45); NEUTROPHILS % (MANUAL) 86 % (45-75); PLATELET ESTIMATE DECREASED; TOTAL CELLS COUNTED 100
[2017-02-22 09:39] LABS: ANISOCYTOSIS 1+; HYPOCHROMASIA 1+; PLATELET MORPHOLOGY NORMAL
--- NOTE | 2017-02-22 11:36 | General Progress Note ---
Assessment/Plan Status: unchanged Assessment/Plan Has acute respiratory distress- intubated in ICU Septic shock ( Had long talk with daughter Gali 01/19 ) - Acute renal failure and hyperKalemia - Renal failure, likely diabetic nephropathy / HTN - Sepsis , Pneumonia, Respiratory failure and Hypoxia other - h/o Cellulitis in diabetic foot right LE - Decubitus ulcer - Dementia - Diabetes mellitus - Nonpressure ulcer to level of fascia right lateral ankle - S/P ORIF right ankle Plan: intubate - ICU On hydrocortisone- Had permacath 01/30 weaning in process Adjust BP meds- Labile BP- - Clonidin PRN HD 02/23 - Transfused addd phos binders monitor WBCs Monitor renal parameters and Vanco level- ARTUR Kidney done last admission- unremarkable Adjust BP meds- Avoid Nephrotoxics- discussed with CM Per orders Subjective ROS Limited/Unobtainable: Yes Allergies: Coded Allergies: MORPHINE (Verified Adverse Reaction, Severe, PARADOXICAL REACTION, 10/08/12 ) Objective Last 24 Hour Vital Signs Date Time Temp Pulse Resp B/P Pulse Ox O2 Delivery O2 Flow Rate FiO2 02/22/17 11:00 87 28 132/43 100 Mechanical Ventilator 60 02/22/17 10:47 81 24 100 Mechanical Ventilator 02/22/17 10:41 89 25 60 02/22/17 10:38 81 28 97 Mechanical Ventilator 60 02/22/17 10:00 85 28 127/44 100 Mechanical Ventilator 60 02/22/17 09:00 85 27 60 02/22/17 09:00 81 25 99/37 100 Mechanical Ventilator 60 02/22/17 08:00 60 02/22/17 08:00 98.7 83 23 124/40 100 Mechanical Ventilator 60 02/22/17 08:00 88 02/22/17 07:20 91 29 60 02/22/17 07:00 84 29 130/44 100 Mechanical Ventilator 60 02/22/17 06:00 86 29 130/44 100 Mechanical Ventilator 60 02/22/17 05:33 84 24 60 02/22/17 05:00 86 29 133/44 100 Mechanical Ventilator 60 02/22/17 04:00 98.2 82 29 96/36 100 Mechanical Ventilator 60 02/22/17 04:00 60 02/22/17 04:00 86 02/22/17 03:02 80 22 99 Mechanical Ventilator 02/22/17 03:00 85 29 108/34 100 Mechanical Ventilator 60 02/22/17 02:39 84 31 100 Mechanical Ventilator 60 02/22/17 02:38 85 29 60 02/22/17 02:00 80 29 105/39 100 Mechanical Ventilator 60 02/22/17 01:00 79 23 96/28 100 Mechanical Ventilator 60 02/22/17 00:47 81 22 60 02/22/17 00:00 60 02/22/17 00:00 98.0 82 29 125/40 100 Mechanical Ventilator 60 02/22/17 00:00 80 02/21/17 23:00 79 23 90/38 100 Mechanical Ventilator 60 02/21/17 22:46 81 28 60 02/21/17 22:00 78 23 103/40 100 Mechanical Ventilator 60 02/21/17 21:00 84 30 104/46 100 Mechanical Ventilator 60 02/21/17 20:40 79 29 60 02/21/17 20:00 60 02/21/17 20:00 98.6 85 24 145/45 100 Mechanical Ventilator 60 02/21/17 19:38 84 02/21/17 19:00 84 24 140/43 100 Mechanical Ventilator 60 02/21/17 18:40 86 25 60 02/21/17 18:00 86 25 124/48 99 Mechanical Ventilator 60 02/21/17 17:12 81 27 60 02/21/17 17:00 82 22 137/36 99 Mechanical Ventilator 60 02/21/17 16:00 98.4 86 24 139/30 98 Mechanical Ventilator 60 02/21/17 16:00 79 02/21/17 16:00 60 02/21/17 15:18 84 25 60 02/21/17 15:00 84 26 120/41 100 Mechanical Ventilator 60 02/21/17 14:00 78 25 109/34 100 Mechanical Ventilator 60 02/21/17 13:00 82 29 94/34 99 Mechanical Ventilator 60 02/21/17 13:00 79 26 60 02/21/17 12:00 81 02/21/17 12:00 98.4 83 30 103/42 97 Mechanical Ventilator 60 02/21/17 12:00 60 Intake and Output 02/21/17 02/22/17 19:00 07:00 Intake Total 520 ml 620 ml Output Total 1100 ml 0 ml Balance -580 ml 620 ml Free Water 40 ml 90 ml IV Total 110 ml Tube Feeding 420 ml 420 ml Other 60 ml Output Urine Total 0 ml 0 ml Hemodialysis UF 1100 ml # Bowel Movements 3 1 Laboratory Tests 02/22/17 04:20: White Blood Count 20.0H, Red Blood Count 2.95L, Hemoglobin 9.2L, Hematocrit 28.3L, Mean Corpuscular Volume 96, Mean Corpuscular Hemoglobin 31.2H, Mean Corpuscular Hemoglobin Concent 32.5, Red Cell Distribution Width 17.9H, Platelet Count 89L, Mean Platelet Volume 8.1, Neutrophils (%) (Auto) , Lymphocytes (%) (Auto) , Monocytes (%) (Auto) , Eosinophils (%) (Auto) , Basophils (%) (Auto) , Differential Total Cells Counted 100, Neutrophils % ( Manual) 86H, Lymphocytes % (Manual) 5L, Monocytes % (Manual) 9, Eosinophils % ( Manual) 0, Basophils % (Manual) 0, Band Neutrophils 0, Platelet Estimate DecreasedL, Platelet Morphology Normal, Hypochromasia 1+, Anisocytosis 1+ Height (Feet): 5 Height (Inches): 1.00 Weight (Pounds): 200 General Appearance: no apparent distress Cardiovascular: regular rhythm Respiratory/Chest: decreased breath sounds Objective other PE not changed BERTRAM CASTAÑEDA Feb 22, 2017 11:36
[2017-02-22] MEDS ORDERED: NS 275ml ONE (13:59)
[2017-02-22] MEDS ORDERED: Tubing IV Secondary IV ONE (13:59)
--- NOTE | 2017-02-22 20:35 | Critical Care Progress Note ---
Assessment/Plan Assessment/Plan hypoxemia respiratory failure respiratory acidosis pulmonary infiltrates thrombocytopenia renal failure ALOC chronic encephalopathy septic shock leukocytosis pulmonary infiltrates ARDS DIC likely s/p transfusion atrial fibrillation hypotension PLAN wean as able; on SIMV- difficulty tolerating reduce steroids to off in am; wbc responding follow up labs and adjust monitor off pressors monitor renal function; on HD per renal blood pressure labile but adequate antibiotics noted o2 needs better monitor for atrail fib follow up ABG and CXR for change routine prognosis remains poor; if unable to wean, plan for terminal extubation in am if family agreeable medications/laboratory data/nursing notes/ICU care reviewed in detail note reviewed and edited care discussed with RN and RT ICU time spent 38 minutes Critical Care - Subjective Interval Events: unable to wean on simv and not tolerating well ROS Limited/Unobtainable: Yes Condition: critical EKG Rhythm: Sinus Rhythm Residuals: minimal Tube Feeding Tolerated: yes I&O: Intake and Output 02/21/17 02/22/17 19:00 07:00 Intake Total 520 ml 620 ml Output Total 1100 ml 0 ml Balance -580 ml 620 ml Free Water 40 ml 90 ml IV Total 110 ml Tube Feeding 420 ml 420 ml Other 60 ml Output Urine Total 0 ml 0 ml Hemodialysis UF 1100 ml # Bowel Movements 3 1 Critical Care - Objective ET-Tube: 7.0 ET Position: 22 Last 24 Hour Vital Signs Date Time Temp Pulse Resp B/P Pulse Ox O2 Delivery O2 Flow Rate FiO2 02/22/17 20:00 60 02/22/17 20:00 91 02/22/17 20:00 97.5 91 16 101/39 100 Mechanical Ventilator 60 02/22/17 19:14 103 29 98 Mechanical Ventilator 60 02/22/17 19:00 94 16 94/34 100 Mechanical Ventilator 60 02/22/17 18:51 92 29 60 02/22/17 18:00 92 26 124/46 100 Mechanical Ventilator 60 02/22/17 17:29 89 25 60 02/22/17 17:00 91 29 145/56 100 Mechanical Ventilator 60 02/22/17 16:00 90 02/22/17 16:00 98.3 92 22 93/42 100 Mechanical Ventilator 60 02/22/17 16:00 60 02/22/17 15:30 104 35 60 02/22/17 15:00 96 27 116/45 100 Mechanical Ventilator 60 02/22/17 14:00 94 28 127/43 100 Mechanical Ventilator 60 02/22/17 13:17 98 23 60 02/22/17 13:00 90 26 130/43 100 Mechanical Ventilator 60 02/22/17 12:00 98.2 86 27 124/41 99 Mechanical Ventilator 60 02/22/17 12:00 88 02/22/17 12:00 60 02/22/17 11:00 87 28 132/43 100 Mechanical Ventilator 60 02/22/17 10:47 81 24 100 Mechanical Ventilator 02/22/17 10:41 89 25 60 02/22/17 10:38 81 28 97 Mechanical Ventilator 60 02/22/17 10:00 85 28 127/44 100 Mechanical Ventilator 60 02/22/17 09:00 85 27 60 02/22/17 09:00 81 25 99/37 100 Mechanical Ventilator 60 02/22/17 08:00 60 02/22/17 08:00 98.7 83 23 124/40 100 Mechanical Ventilator 60 02/22/17 08:00 88 02/22/17 07:20 91 29 60 02/22/17 07:00 84 29 130/44 100 Mechanical Ventilator 60 02/22/17 06:00 86 29 130/44 100 Mechanical Ventilator 60 02/22/17 05:33 84 24 60 02/22/17 05:00 86 29 133/44 100 Mechanical Ventilator 60 02/22/17 04:00 98.2 82 29 96/36 100 Mechanical Ventilator 60 02/22/17 04:00 60 02/22/17 04:00 86 02/22/17 03:02 80 22 99 Mechanical Ventilator 02/22/17 03:00 85 29 108/34 100 Mechanical Ventilator 60 02/22/17 02:39 84 31 100 Mechanical Ventilator 60 02/22/17 02:38 85 29 60 02/22/17 02:00 80 29 105/39 100 Mechanical Ventilator 60 02/22/17 01:00 79 23 96/28 100 Mechanical Ventilator 60 02/22/17 00:47 81 22 60 02/22/17 00:00 60 02/22/17 00:00 98.0 82 29 125/40 100 Mechanical Ventilator 60 02/22/17 00:00 80 02/21/17 23:00 79 23 90/38 100 Mechanical Ventilator 60 02/21/17 22:46 81 28 60 02/21/17 22:00 78 23 103/40 100 Mechanical Ventilator 60 02/21/17 21:00 84 30 104/46 100 Mechanical Ventilator 60 02/21/17 20:40 79 29 60 Labs: Labs reviewed all findings in detail Objective: WDWN chronically ill appearing; on the ventilator arouseable NAD coarse breath sounds bilaterally with some rhonchi but no wheeze orally intubated S1S2 RRR without MRG; rate controlled NABS nontender no HSM; feeding tube in place; no distention no CC; mild edema without change nonfocal LOC without change skin noted and examined pupils sluggish Accucheck: 239 FELIPE PATHAK Feb 22, 2017 20:35
[2017-02-22] MEDS: Micafungin 100 MG in NS 110 ML IVPB SCH (22:01)
--- NOTE | 2017-02-22 22:37 | General Progress Note ---
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 bilateral right greater than left pleural effusions and mediastinal lymphadenopathy - she is a poor candidate for biopsy and has a poor prognosis # Anemia 2/2 chronic disease - s/p multiple units of blood # Leukocytosis - counts increasing, related to sepsis and underlying infection, is on antibiotics # Respiratory failure s/p intubation # Respiratory acidosis # Renal failure- pt on HD # ALOC # Sepsis Recs: - Continue to monitor counts - Considering terminal extubation if unable to wean vent - Weaning ventilator - Transfuse to hgb goal >7, plt goal >20k if bleeding --> conservative management - Give PRBC during HD to hgb<7 - She is off heparin, plavix, aspirin, levo - Agree to administer FFP if INR >2 - Does not require a biopsy as has poor prognosis and poor outcome at this time - OG feeds at maximal rate - Appreciate consultation! continue to follow Subjective ROS Limited/Unobtainable: Yes Constitutional: Reports: no symptoms HEENT: Reports: no symptoms Cardiovascular: Reports: no symptoms Respiratory: Reports: no symptoms Gastrointestinal/Abdominal: Reports: no symptoms Genitourinary: Reports: no symptoms 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: Reports: no symptoms Endocrine: Reports: no symptoms Hematologic/Lymphatic: Reports: anemia Allergies: Coded Allergies: MORPHINE (Verified Adverse Reaction, Severe, PARADOXICAL REACTION, 10/08/12 ) Subjective no bleeding, still weaning vent, NAD Objective Last 24 Hour Vital Signs Date Time Temp Pulse Resp B/P Pulse Ox O2 Delivery O2 Flow Rate FiO2 02/22/17 22:00 95 26 130/44 100 Mechanical Ventilator 60 02/22/17 21:00 90 16 120/36 100 Mechanical Ventilator 60 02/22/17 21:00 95 16 60 02/22/17 20:00 60 02/22/17 20:00 91 02/22/17 20:00 97.5 91 16 101/39 100 Mechanical Ventilator 60 02/22/17 19:14 103 29 98 Mechanical Ventilator 60 02/22/17 19:00 94 16 94/34 100 Mechanical Ventilator 60 02/22/17 18:51 92 29 60 02/22/17 18:00 92 26 124/46 100 Mechanical Ventilator 60 02/22/17 17:29 89 25 60 02/22/17 17:00 91 29 145/56 100 Mechanical Ventilator 60 02/22/17 16:00 90 02/22/17 16:00 98.3 92 22 93/42 100 Mechanical Ventilator 60 02/22/17 16:00 60 02/22/17 15:30 104 35 60 02/22/17 15:00 96 27 116/45 100 Mechanical Ventilator 60 02/22/17 14:00 94 28 127/43 100 Mechanical Ventilator 60 02/22/17 13:17 98 23 60 02/22/17 13:00 90 26 130/43 100 Mechanical Ventilator 60 02/22/17 12:00 98.2 86 27 124/41 99 Mechanical Ventilator 60 02/22/17 12:00 88 02/22/17 12:00 60 02/22/17 11:00 87 28 132/43 100 Mechanical Ventilator 60 02/22/17 10:47 81 24 100 Mechanical Ventilator 02/22/17 10:41 89 25 60 02/22/17 10:38 81 28 97 Mechanical Ventilator 60 02/22/17 10:00 85 28 127/44 100 Mechanical Ventilator 60 02/22/17 09:00 85 27 60 02/22/17 09:00 81 25 99/37 100 Mechanical Ventilator 60 02/22/17 08:00 60 02/22/17 08:00 98.7 83 23 124/40 100 Mechanical Ventilator 60 02/22/17 08:00 88 02/22/17 07:20 91 29 60 02/22/17 07:00 84 29 130/44 100 Mechanical Ventilator 60 02/22/17 06:00 86 29 130/44 100 Mechanical Ventilator 60 02/22/17 05:33 84 24 60 02/22/17 05:00 86 29 133/44 100 Mechanical Ventilator 60 02/22/17 04:00 98.2 82 29 96/36 100 Mechanical Ventilator 60 02/22/17 04:00 60 02/22/17 04:00 86 02/22/17 03:02 80 22 99 Mechanical Ventilator 02/22/17 03:00 85 29 108/34 100 Mechanical Ventilator 60 02/22/17 02:39 84 31 100 Mechanical Ventilator 60 02/22/17 02:38 85 29 60 02/22/17 02:00 80 29 105/39 100 Mechanical Ventilator 60 02/22/17 01:00 79 23 96/28 100 Mechanical Ventilator 60 02/22/17 00:47 81 22 60 02/22/17 00:00 60 02/22/17 00:00 98.0 82 29 125/40 100 Mechanical Ventilator 60 02/22/17 00:00 80 02/21/17 23:00 79 23 90/38 100 Mechanical Ventilator 60 02/21/17 22:46 81 28 60 Intake and Output 02/21/17 02/22/17 19:00 07:00 Intake Total 520 ml 620 ml Output Total 1100 ml 0 ml Balance -580 ml 620 ml Free Water 40 ml 90 ml IV Total 110 ml Tube Feeding 420 ml 420 ml Other 60 ml Output Urine Total 0 ml 0 ml Hemodialysis UF 1100 ml # Bowel Movements 3 1 Laboratory Tests 02/22/17 04:20: White Blood Count 20.0H, Red Blood Count 2.95L, Hemoglobin 9.2L, Hematocrit 28.3L, Mean Corpuscular Volume 96, Mean Corpuscular Hemoglobin 31.2H, Mean Corpuscular Hemoglobin Concent 32.5, Red Cell Distribution Width 17.9H, Platelet Count 89L, Mean Platelet Volume 8.1, Neutrophils (%) (Auto) , Lymphocytes (%) (Auto) , Monocytes (%) (Auto) , Eosinophils (%) (Auto) , Basophils (%) (Auto) , Differential Total Cells Counted 100, Neutrophils % ( Manual) 86H, Lymphocytes % (Manual) 5L, Monocytes % (Manual) 9, Eosinophils % ( Manual) 0, Basophils % (Manual) 0, Band Neutrophils 0, Platelet Estimate DecreasedL, Platelet Morphology Normal, Hypochromasia 1+, Anisocytosis 1+ Height (Feet): 5 Height (Inches): 1.00 Weight (Pounds): 200 General Appearance: no apparent distress EENT: PERRL/EOMI Neck: non-tender Cardiovascular: normal peripheral pulses Respiratory/Chest: chest wall non-tender Abdomen: normal bowel sounds Extremities: normal range of motion Edema: no edema noted Leg (L), no edema noted Leg (R), no edema noted Pedal (L) , no edema noted Pedal (R), no edema noted Generalized Neurologic: unresponsive Skin: warm/dry Mariano Ortiz Feb 22, 2017 22:37
[2017-02-23] VITALS (25 sets, daily range): BP systolic 93–152; BP diastolic 31–92
[2017-02-23] MEDS: DuoNeb 0.5-3(2.5)mg/3ml neb HHN PRN (01:00)
--- NOTE | 2017-02-23 05:18 | Progress Note ---
DATE: 02/22/2017 SUBJECTIVE: The patient remains on ventilator support. Hemodialysis with ultrafiltration ongoing. The patient is off pressors. Antihypertensive therapy use on a p.r.n. basis. Broad-spectrum antibiotics ongoing. PHYSICAL EXAMINATION: VITAL SIGNS: Blood pressure 132/43, pulse 87, and respirations 28. NECK: Supple. PermCath site clean. LUNGS: Clear. CARDIAC: Rate irregularly irregular. ABDOMEN: Soft. EXTREMITIES: Trace edema. LABORATORY DATA: White count 20, hemoglobin 9.2, and platelets 89,000. IMPRESSION: 1. Recovering thrombocytopenia, slowly improving leukocytosis. 2. Anemia of chronic kidney disease. 3. Sepsis with recovered shock. 4. Ventilator-dependent respiratory failure. 5. Acute renal failure. 6. Paroxysmal atrial fibrillation. PLAN: 1. Antimicrobials. 2. Hemodialysis with ultrafiltration. 3. Transfuse for hemoglobin less than 8 g. We will wean off ventilator. 4. No anticoagulants in view of bleeding risks and recent DIC. We will follow. Joss Rush M.D. DR: MICHAEL JOB#: [id number] CC:
--- NOTE | 2017-02-23 05:58 | Progress Note ---
DATE: 02/21/2017 CARDIOLOGY PROGRESS NOTE SUBJECTIVE: The patient was seen and evaluated. She remains in the ICU. She is on ventilator support. Steroid taper is ongoing. The patient is on antibiotics. She is on pressors. OBJECTIVE: VITAL SIGNS: Blood pressure 116/40, pulse 69, respiratory rate 20. Secretions per ET tube, bilateral rhonchi. HEART: Irregularly irregular rhythm. Normal S1, S2. ABDOMEN: Soft. EXTREMITIES: Dependent edema. LABORATORY DATA: White count 24.9 and hemoglobin 9.5. Potassium 3.4, BUN 103, creatinine 4.7, pronatriuretic peptide 8147, and albumin 2.1. IMPRESSION: 1. Respiratory failure. 2. Sepsis with shock. 3. End-stage renal disease. 4. Acute on chronic diastolic congestive heart failure, improving. 5. Severe protein-calorie malnutrition. PLAN: Antimicrobials ventilator support with weaning, nutritional support by G-tube. Hold anti-platelet therapy and anticoagulants, monitor for dropping platelet count, and hemodialysis with ultrafiltration. Joss Rush M.D. DR: Luis Daniel JOB#: [id number] CC:
[2017-02-23] MEDS: NovoLOG Insulin Flexpen SUBQ SCH ×4 (06:20→23:41)
[2017-02-23 06:26] LABS: MEAN CORPUSCULAR HEMOGLOBIN 30.6 PG (27.0-31.0); MEAN CORPUSCULAR HGB CONC 31.7 G/DL (32.0-36.0); MEAN CORPUSCULAR VOLUME 96 FL (80-99); MEAN PLATELET VOLUME 7.2 FL (6.5-10.1); PLATELET COUNT 90 K/UL (150-450); RED BLOOD COUNT 2.91 M/UL (4.20-5.40); RED CELL DISTRIBUTION WIDTH 17.6 % (11.6-14.8); WHITE BLOOD COUNT 18.8 K/UL (4.8-10.8)
[2017-02-23 06:41] LABS: ANION GAP 15 (5-15); CALCIUM 7.6 mg/dL (8.6-10.2); CARBON DIOXIDE 31 mEQ/L (20-30); CHLORIDE 95 mEQ/L (98-107); CREATININE 4.5 mg/dL (0.5-0.9); HEMOLYSIS 5; POTASSIUM 3.2 mEQ/L (3.4-4.9); SODIUM 141 mEQ/L (135-145)
--- NOTE | 2017-02-23 07:38 | Critical Care Progress Note ---
Assessment/Plan Assessment/Plan hypoxemia respiratory failure respiratory acidosis pulmonary infiltrates thrombocytopenia renal failure ALOC chronic encephalopathy septic shock leukocytosis pulmonary infiltrates ARDS DIC likely s/p transfusion atrial fibrillation hypotension PLAN wean as able; on SIMV- difficulty tolerating dc steroids today follow up labs and adjust monitor off pressors monitor renal function; on HD per renal blood pressure labile but adequate antibiotics noted o2 needs better monitor for any change in rhythm follow up ABG and CXR for change routine prognosis remains poor; will update family as to plan of care medications/laboratory data/nursing notes/ICU care reviewed in detail note reviewed and edited care discussed with RN and RT ICU time spent 36 minutes Critical Care - Subjective Interval Events: no significant improvement hemodynamics adequate ROS Limited/Unobtainable: Yes Condition: critical EKG Rhythm: Sinus Rhythm Residuals: minimal Tube Feeding Tolerated: yes I&O: Intake and Output 02/22/17 02/23/17 18:59 06:59 Intake Total 470 ml 530 ml Output Total 0 ml 0 ml Balance 470 ml 530 ml Free Water 40 ml IV Total 110 ml Tube Feeding 420 ml 420 ml Other 10 ml Output Urine Total 0 ml 0 ml # Bowel Movements 2 4 Critical Care - Objective ET-Tube: 7.0 ET Position: 22 Last 24 Hour Vital Signs Date Time Temp Pulse Resp B/P Pulse Ox O2 Delivery O2 Flow Rate FiO2 02/23/17 07:10 97 27 60 02/23/17 07:00 88 21 113/50 100 Mechanical Ventilator 60 02/23/17 06:00 96 24 130/49 98 Mechanical Ventilator 60 02/23/17 05:20 Mechanical Ventilator 15.0 60 02/23/17 05:00 98 25 140/56 97 Mechanical Ventilator 60 02/23/17 04:58 94 28 60 02/23/17 04:00 60 02/23/17 04:00 96 02/23/17 04:00 98.2 96 26 152/49 98 Mechanical Ventilator 60 02/23/17 03:00 94 19 125/43 97 Mechanical Ventilator 60 02/23/17 02:58 94 16 60 02/23/17 02:00 95 18 94/43 100 Mechanical Ventilator 60 02/23/17 01:24 99 21 99 Mechanical Ventilator 02/23/17 01:00 101 23 130/58 97 Mechanical Ventilator 60 02/23/17 01:00 104 28 96 Mechanical Ventilator 60 02/23/17 00:50 100 24 60 02/23/17 00:00 93 02/23/17 00:00 60 02/23/17 00:00 97.8 93 23 135/48 100 Mechanical Ventilator 60 02/22/17 23:00 93 26 130/48 100 Mechanical Ventilator 60 02/22/17 22:35 95 21 60 02/22/17 22:00 95 26 130/44 100 Mechanical Ventilator 60 02/22/17 21:00 90 16 120/36 100 Mechanical Ventilator 60 02/22/17 21:00 95 16 60 02/22/17 20:00 60 02/22/17 20:00 91 02/22/17 20:00 97.5 91 16 101/39 100 Mechanical Ventilator 60 02/22/17 19:14 103 29 98 Mechanical Ventilator 60 02/22/17 19:00 94 16 94/34 100 Mechanical Ventilator 60 02/22/17 18:51 92 29 60 02/22/17 18:00 92 26 124/46 100 Mechanical Ventilator 60 02/22/17 17:29 89 25 60 02/22/17 17:00 91 29 145/56 100 Mechanical Ventilator 60 02/22/17 16:00 90 02/22/17 16:00 98.3 92 22 93/42 100 Mechanical Ventilator 60 02/22/17 16:00 60 02/22/17 15:30 104 35 60 02/22/17 15:00 96 27 116/45 100 Mechanical Ventilator 60 02/22/17 14:00 94 28 127/43 100 Mechanical Ventilator 60 02/22/17 13:17 98 23 60 02/22/17 13:00 90 26 130/43 100 Mechanical Ventilator 60 02/22/17 12:00 98.2 86 27 124/41 99 Mechanical Ventilator 60 02/22/17 12:00 88 02/22/17 12:00 60 02/22/17 11:00 87 28 132/43 100 Mechanical Ventilator 60 02/22/17 10:47 81 24 100 Mechanical Ventilator 02/22/17 10:41 89 25 60 02/22/17 10:38 81 28 97 Mechanical Ventilator 60 02/22/17 10:00 85 28 127/44 100 Mechanical Ventilator 60 02/22/17 09:00 85 27 60 02/22/17 09:00 81 25 99/37 100 Mechanical Ventilator 60 02/22/17 08:00 60 02/22/17 08:00 98.7 83 23 124/40 100 Mechanical Ventilator 60 02/22/17 08:00 88 Labs: Laboratory Tests Test 02/23/17 06:15 White Blood Count 18.8 K/UL (4.8-10.8) H Red Blood Count 2.91 M/UL (4.20-5.40) L Hemoglobin 8.9 G/DL (12.0-16.0) L Hematocrit 28.0 % (37.0-47.0) L Mean Corpuscular Volume 96 FL (80-99) Mean Corpuscular Hemoglobin 30.6 PG (27.0-31.0) Mean Corpuscular Hemoglobin Concent 31.7 G/DL (32.0-36.0) L Red Cell Distribution Width 17.6 % (11.6-14.8) H Platelet Count 90 K/UL (150-450) L Mean Platelet Volume 7.2 FL (6.5-10.1) Neutrophils (%) (Auto) % (45.0-75.0) Lymphocytes (%) (Auto) % (20.0-45.0) Monocytes (%) (Auto) % (1.0-10.0) Eosinophils (%) (Auto) % (0.0-3.0) Basophils (%) (Auto) % (0.0-2.0) Neutrophils % (Manual) Pending Lymphocytes % (Manual) Pending Platelet Estimate Pending Platelet Morphology Pending Sodium Level 141 mEQ/L (135-145) Potassium Level 3.2 mEQ/L (3.4-4.9) L Chloride Level 95 mEQ/L (98-107) L Carbon Dioxide Level 31 mEQ/L (20-30) H Anion Gap 15 (5-15) Blood Urea Nitrogen 92 mg/dL (7-23) H Creatinine 4.5 mg/dL (0.5-0.9) H Estimat Glomerular Filtration Rate mL/min (>60) Glucose Level 211 mg/dL (74-106) H Calcium Level 7.6 mg/dL (8.6-10.2) L Objective: WDWN chronically ill appearing; on the ventilator arouseable NAD coarse breath sounds bilaterally with some rhonchi but no wheeze orally intubated S1S2 RRR without MRG; rate controlled NABS nontender no HSM; feeding tube in place; no distention no CC; mild edema without change nonfocal LOC without change skin noted and examined pupils sluggish reviewed and edited Accucheck: 218 FELIPE PATHAK Feb 23, 2017 07:38
[2017-02-23 08:39] LABS: EOSINOPHILS % (MANUAL) 3 % (0-3); LYMPHOCYTES % (MANUAL) 2 % (20-45); NEUTROPHILS % (MANUAL) 94 % (45-75); TOTAL CELLS COUNTED 100
[2017-02-23 08:40] LABS: ANISOCYTOSIS 1+; BAND NEUTROPHILS % (MANUAL) 0 % (0-8); BASOPHILS % (MANUAL) 0 % (0-2); HYPOCHROMASIA 1+; PLATELET ESTIMATE DECREASED; PLATELET MORPHOLOGY NORMAL
[2017-02-23] MEDS ORDERED: NS 275ml ONE (08:44)
[2017-02-23] MEDS: Renvela 800mg Pkt NG SCH ×3 (09:07→17:25)
[2017-02-23] MEDS: Pantoprazole 40mg pkt GT SCH ×2 (09:07→21:03)
[2017-02-23] MEDS: Analgesic Balm 15gm TOPIC SCH ×4 (09:07→21:03)
--- NOTE | 2017-02-23 12:33 | Infectious Diseases Prog Note ---
Assessment/Plan Assessment/Plan ASSESSMENT: 76 y/o female with: // Probable UTI - UCx(-) // Hypoxia, possible HCAP Scx: ESBL Kleb - CXR 02/02 : Extensive bilateral interstitial and airspace opacities, unchanged // h/o CoNS bacteremia 11/05 ( 01/09 ) ?real ( PICC tip+ ) vs contaminant r/o recurrence/persistence - surveillance BCx(-) // h/o right ankle cellulitis / osteomyelitis / hardware infection SP incomplete Rx ( recommended to complete 6 weeks IV daptomycin, cefepime ( end ), but daughter apparently declined at last discharge per documentation ) - SP hardware removal 12/15 - no culture sent - 3P bone scan: 3 phase increased activity in region of distal aspect of right fibula compatible with hardware loosening and/or osteomyelitis - XR: surgical hardware seen reducing old healed distal fibular and medial malleolar fractures. No acute fractures. No dislocations. Bones are demineralized. - elevated ESR, CRP - h/o right ankle ORIF // Probable sepsis,SP // Leukocytosis , improving ( SP sternoids stopped 02/23 ) persistent not improving with prolong course of AB Rx // Diarrhea C-Diff Neg // ..US abd :neg of infectious process // VDRF intubated 02/07 // ARF on CKD --> IHD per renal SP placement of tunneled right jugular hemodialysis catheter. 01/29 // Dementia // DM2 - HbA1c 6.1% // h/o CAD - trop(-) x1 // NH resident // VRE colonized // No ABX allergies // Full Code PLAN: - cont Mycamine d# 4 as empiric Rx of probable candidiasis ( 02/20 SP DC Merrem d# 14 /14 ) ( 02/07 SP DC Teflaro d# 10 ) ( 01/28 SP IV cefepime d# 10 IV Vanco d# 2 ) - monitor CBC, temperatures - monitor BMP - monitor CXR - respiratory support prn - DNR poor prognosis Subjective Constitutional: Denies: anorexia, chills, drenching sweats, fatigue, fever, no symptoms, other Allergies: Coded Allergies: MORPHINE (Verified Adverse Reaction, Severe, PARADOXICAL REACTION, 10/08/12 ) Subjective on vent Objective Vital Signs Last 24 Hour Vital Signs Date Time Temp Pulse Resp B/P Pulse Ox O2 Delivery O2 Flow Rate FiO2 02/23/17 12:00 60 02/23/17 11:00 92 32 140/46 99 Mechanical Ventilator 60 02/23/17 10:40 98 30 60 02/23/17 10:00 93 32 121/57 99 Mechanical Ventilator 60 02/23/17 09:00 93 30 60 02/23/17 09:00 93 32 114/47 100 Mechanical Ventilator 60 02/23/17 08:41 Mechanical Ventilator 15.0 60 02/23/17 08:00 98.1 105 27 93/62 100 Mechanical Ventilator 60 02/23/17 08:00 96 02/23/17 07:52 60 02/23/17 07:10 97 27 60 02/23/17 07:00 88 21 113/50 100 Mechanical Ventilator 60 02/23/17 06:00 96 24 130/49 98 Mechanical Ventilator 60 02/23/17 05:20 Mechanical Ventilator 15.0 60 02/23/17 05:00 98 25 140/56 97 Mechanical Ventilator 60 02/23/17 04:58 94 28 60 02/23/17 04:00 60 02/23/17 04:00 96 02/23/17 04:00 98.2 96 26 152/49 98 Mechanical Ventilator 60 02/23/17 03:00 94 19 125/43 97 Mechanical Ventilator 60 02/23/17 02:58 94 16 60 02/23/17 02:00 95 18 94/43 100 Mechanical Ventilator 60 02/23/17 01:24 99 21 99 Mechanical Ventilator 02/23/17 01:00 101 23 130/58 97 Mechanical Ventilator 60 02/23/17 01:00 104 28 96 Mechanical Ventilator 60 02/23/17 00:50 100 24 60 02/23/17 00:00 93 02/23/17 00:00 60 02/23/17 00:00 97.8 93 23 135/48 100 Mechanical Ventilator 60 02/22/17 23:00 93 26 130/48 100 Mechanical Ventilator 60 02/22/17 22:35 95 21 60 02/22/17 22:00 95 26 130/44 100 Mechanical Ventilator 60 02/22/17 21:00 90 16 120/36 100 Mechanical Ventilator 60 02/22/17 21:00 95 16 60 02/22/17 20:00 60 02/22/17 20:00 91 02/22/17 20:00 97.5 91 16 101/39 100 Mechanical Ventilator 60 02/22/17 19:14 103 29 98 Mechanical Ventilator 60 02/22/17 19:00 94 16 94/34 100 Mechanical Ventilator 60 02/22/17 18:51 92 29 60 02/22/17 18:00 92 26 124/46 100 Mechanical Ventilator 60 02/22/17 17:29 89 25 60 02/22/17 17:00 91 29 145/56 100 Mechanical Ventilator 60 02/22/17 16:00 90 02/22/17 16:00 98.3 92 22 93/42 100 Mechanical Ventilator 60 02/22/17 16:00 60 02/22/17 15:30 104 35 60 02/22/17 15:00 96 27 116/45 100 Mechanical Ventilator 60 02/22/17 14:00 94 28 127/43 100 Mechanical Ventilator 60 02/22/17 13:17 98 23 60 02/22/17 13:00 90 26 130/43 100 Mechanical Ventilator 60 Height (Feet): 5 Height (Inches): 1.00 Weight (Pounds): 200 HEENT: mucous membranes moist Respiratory/Chest: normal breath sounds Cardiovascular: regular rhythm Abdomen: no mass Laboratory Tests Test 02/23/17 06:15 White Blood Count 18.8 K/UL (4.8-10.8) H Red Blood Count 2.91 M/UL (4.20-5.40) L Hemoglobin 8.9 G/DL (12.0-16.0) L Hematocrit 28.0 % (37.0-47.0) L Mean Corpuscular Volume 96 FL (80-99) Mean Corpuscular Hemoglobin 30.6 PG (27.0-31.0) Mean Corpuscular Hemoglobin Concent 31.7 G/DL (32.0-36.0) L Red Cell Distribution Width 17.6 % (11.6-14.8) H Platelet Count 90 K/UL (150-450) L Mean Platelet Volume 7.2 FL (6.5-10.1) Neutrophils (%) (Auto) % (45.0-75.0) Lymphocytes (%) (Auto) % (20.0-45.0) Monocytes (%) (Auto) % (1.0-10.0) Eosinophils (%) (Auto) % (0.0-3.0) Basophils (%) (Auto) % (0.0-2.0) Differential Total Cells Counted 100 Neutrophils % (Manual) 94 % (45-75) H Lymphocytes % (Manual) 2 % (20-45) L Monocytes % (Manual) 1 % (1-10) Eosinophils % (Manual) 3 % (0-3) Basophils % (Manual) 0 % (0-2) Band Neutrophils 0 % (0-8) Platelet Estimate Decreased L Platelet Morphology Normal Hypochromasia 1+ Anisocytosis 1+ Sodium Level 141 mEQ/L (135-145) Potassium Level 3.2 mEQ/L (3.4-4.9) L Chloride Level 95 mEQ/L (98-107) L Carbon Dioxide Level 31 mEQ/L (20-30) H Anion Gap 15 (5-15) Blood Urea Nitrogen 92 mg/dL (7-23) H Creatinine 4.5 mg/dL (0.5-0.9) H Estimat Glomerular Filtration Rate mL/min (>60) Glucose Level 211 mg/dL (74-106) H Calcium Level 7.6 mg/dL (8.6-10.2) L Current Medications Medications (Trade) Dose Ordered Sig/Rina Route PRN Reason Start Time Stop Time Status Last Admin Dose Admin Acetaminophen (Tylenol) 650 mg Q6H PRN ORAL Mild Pain/Temp > 100.5 02/07/17 17:00 03/09/17 16:59 Albuterol/ Ipratropium (DuoNeb 0.5-3(2.5)mg/3ml) 3 ml Q2H PRN HHN Shortness of Breath 02/20/17 23:30 02/25/17 23:29 02/23/17 01:00 Dextrose (Dextrose 50%) STAT PRN IV Hypoglycemia 02/07/17 17:00 03/09/17 16:59 Insulin Aspart (NovoLOG) Q6HR SUBQ 02/07/17 18:00 03/09/17 17:59 02/23/17 12:14 Lorazepam (Ativan 2mg/ml 1ml) 1 mg Q3H PRN IV Anxiety/Agitation 02/18/17 06:30 02/25/17 06:29 02/18/17 14:49 Menthol/Methyl Salicylate (Bengay) 1 applic FOUR TIMES A DAY TOPIC 02/07/17 18:00 03/09/17 17:59 02/23/17 12:14 Micafungin Sodium/ Sodium Chloride (Mycamine/Sodium Chloride) 110 ml @ 110 mls/hr Q24H IVPB 02/20/17 21:00 02/27/17 20:59 02/22/17 22:01 Ondansetron HCl (Zofran) 4 mg Q6H PRN IVP Nausea & Vomiting 02/07/17 17:00 03/09/17 16:59 02/11/17 10:59 Pantoprazole 40 mg 40 mg Q12HR GT 02/19/17 21:00 03/21/17 20:59 02/23/17 09:07 Polyethylene Glycol (Miralax) 17 gm DAILYPRN PRN GT Constipation 02/07/17 17:00 03/09/17 16:59 Sevelamer Carbonate (Renvela) 1,600 mg THREE TIMES A DAY NG 02/17/17 13:00 03/19/17 12:59 02/23/17 12:14 GISELLA JEROME M.D. Feb 23, 2017 12:33
--- NOTE | 2017-02-23 13:24 | General Progress Note ---
Assessment/Plan Status: stable - from renal stand Assessment/Plan Has acute respiratory distress- intubated in ICU Septic shock ( Had long talk with daughter Gali 01/19 ) - Acute renal failure and hyperKalemia - Renal failure, likely diabetic nephropathy / HTN - Sepsis , Pneumonia, Respiratory failure and Hypoxia other - h/o Cellulitis in diabetic foot right LE - Decubitus ulcer - Dementia - Diabetes mellitus - Nonpressure ulcer to level of fascia right lateral ankle - S/P ORIF right ankle Plan: intubate - ICU On hydrocortisone- Had permacath 01/30 weaning in process Adjust BP meds- Labile BP- - Clonidin PRN HD 02/23 - done this morning Transfused add phos binders monitor WBCs Monitor renal parameters and Vanco level- ARTUR Kidney done last admission- unremarkable Adjust BP meds- Avoid Nephrotoxics- discussed with CM Per orders Subjective ROS Limited/Unobtainable: Yes Allergies: Coded Allergies: MORPHINE (Verified Adverse Reaction, Severe, PARADOXICAL REACTION, 10/08/12 ) Objective Last 24 Hour Vital Signs Date Time Temp Pulse Resp B/P Pulse Ox O2 Delivery O2 Flow Rate FiO2 02/23/17 13:16 60 02/23/17 13:00 96 19 60 02/23/17 13:00 95 19 135/51 99 Mechanical Ventilator 60 02/23/17 12:00 89 02/23/17 12:00 98.3 92 27 125/46 100 Mechanical Ventilator 60 02/23/17 12:00 60 02/23/17 11:00 92 32 140/46 99 Mechanical Ventilator 60 02/23/17 10:40 98 30 60 02/23/17 10:00 93 32 121/57 99 Mechanical Ventilator 60 02/23/17 09:00 93 30 60 02/23/17 09:00 93 32 114/47 100 Mechanical Ventilator 60 02/23/17 08:41 Mechanical Ventilator 15.0 60 02/23/17 08:00 98.1 105 27 93/62 100 Mechanical Ventilator 60 02/23/17 08:00 96 02/23/17 07:52 60 02/23/17 07:10 97 27 60 02/23/17 07:00 88 21 113/50 100 Mechanical Ventilator 60 02/23/17 06:00 96 24 130/49 98 Mechanical Ventilator 60 02/23/17 05:20 Mechanical Ventilator 15.0 60 02/23/17 05:00 98 25 140/56 97 Mechanical Ventilator 60 02/23/17 04:58 94 28 60 02/23/17 04:00 60 02/23/17 04:00 96 02/23/17 04:00 98.2 96 26 152/49 98 Mechanical Ventilator 60 02/23/17 03:00 94 19 125/43 97 Mechanical Ventilator 60 02/23/17 02:58 94 16 60 02/23/17 02:00 95 18 94/43 100 Mechanical Ventilator 60 02/23/17 01:24 99 21 99 Mechanical Ventilator 02/23/17 01:00 101 23 130/58 97 Mechanical Ventilator 60 02/23/17 01:00 104 28 96 Mechanical Ventilator 60 02/23/17 00:50 100 24 60 02/23/17 00:00 93 02/23/17 00:00 60 02/23/17 00:00 97.8 93 23 135/48 100 Mechanical Ventilator 60 02/22/17 23:00 93 26 130/48 100 Mechanical Ventilator 60 02/22/17 22:35 95 21 60 02/22/17 22:00 95 26 130/44 100 Mechanical Ventilator 60 02/22/17 21:00 90 16 120/36 100 Mechanical Ventilator 60 02/22/17 21:00 95 16 60 02/22/17 20:00 60 02/22/17 20:00 91 02/22/17 20:00 97.5 91 16 101/39 100 Mechanical Ventilator 60 02/22/17 19:14 103 29 98 Mechanical Ventilator 60 02/22/17 19:00 94 16 94/34 100 Mechanical Ventilator 60 02/22/17 18:51 92 29 60 02/22/17 18:00 92 26 124/46 100 Mechanical Ventilator 60 02/22/17 17:29 89 25 60 02/22/17 17:00 91 29 145/56 100 Mechanical Ventilator 60 02/22/17 16:00 90 02/22/17 16:00 98.3 92 22 93/42 100 Mechanical Ventilator 60 02/22/17 16:00 60 02/22/17 15:30 104 35 60 02/22/17 15:00 96 27 116/45 100 Mechanical Ventilator 60 02/22/17 14:00 94 28 127/43 100 Mechanical Ventilator 60 Intake and Output 02/22/17 02/23/17 19:00 07:00 Intake Total 470 ml 530 ml Output Total 0 ml 0 ml Balance 470 ml 530 ml Free Water 40 ml IV Total 110 ml Tube Feeding 420 ml 420 ml Other 10 ml Output Urine Total 0 ml 0 ml # Bowel Movements 2 4 Laboratory Tests 02/23/17 06:15: White Blood Count 18.8H, Red Blood Count 2.91L, Hemoglobin 8.9L, Hematocrit 28.0L, Mean Corpuscular Volume 96, Mean Corpuscular Hemoglobin 30.6, Mean Corpuscular Hemoglobin Concent 31.7L, Red Cell Distribution Width 17.6H, Platelet Count 90L, Mean Platelet Volume 7.2, Neutrophils (%) (Auto) , Lymphocytes (%) (Auto) , Monocytes (%) (Auto) , Eosinophils (%) (Auto) , Basophils (%) (Auto) , Differential Total Cells Counted 100, Neutrophils % ( Manual) 94H, Lymphocytes % (Manual) 2L, Monocytes % (Manual) 1, Eosinophils % ( Manual) 3, Basophils % (Manual) 0, Band Neutrophils 0, Platelet Estimate DecreasedL, Platelet Morphology Normal, Hypochromasia 1+, Anisocytosis 1+, Sodium Level 141, Potassium Level 3.2L, Chloride Level 95L, Carbon Dioxide Level 31H, Anion Gap 15, Blood Urea Nitrogen 92H, Creatinine 4.5H, Estimat Glomerular Filtration Rate , Glucose Level 211H, Calcium Level 7.6L Height (Feet): 5 Height (Inches): 1.00 Weight (Pounds): 200 General Appearance: no apparent distress Neck: limited range of motion Cardiovascular: tachycardia Respiratory/Chest: decreased breath sounds Abdomen: soft, distended Objective other PE not changed BERTRAM CASTAÑEDA Feb 23, 2017 13:24
[2017-02-23] MEDS: Micafungin 100 MG in NS 110 ML IVPB SCH (21:03)
--- NOTE | 2017-02-23 21:03 | General Progress Note ---
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 bilateral right greater than left pleural effusions and mediastinal lymphadenopathy - she is a poor candidate for biopsy and has a poor prognosis # Anemia 2/2 chronic disease - s/p multiple units of blood # Leukocytosis - counts increasing, related to sepsis and underlying infection, is on antibiotics # Respiratory failure s/p intubation # Respiratory acidosis # Renal failure- pt on HD # ALOC # Sepsis Recs: - Continue to monitor counts - Considering terminal extubation if unable to wean vent - Weaning ventilator - Transfuse to hgb goal >7, plt goal >20k if bleeding --> conservative management - Give PRBC during HD to hgb<7 - She is off heparin, plavix, aspirin, levo, steroids - Agree to administer FFP if INR >2 - Does not require a biopsy as has poor prognosis and poor outcome at this time - OG feeds at maximal rate - Appreciate consultation! continue to follow Subjective ROS Limited/Unobtainable: Yes Constitutional: Reports: no symptoms HEENT: Reports: no symptoms Cardiovascular: Reports: no symptoms Respiratory: Reports: no symptoms Gastrointestinal/Abdominal: Reports: no symptoms Genitourinary: Reports: no symptoms 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: Reports: no symptoms Endocrine: Reports: no symptoms Hematologic/Lymphatic: Reports: anemia Allergies: Coded Allergies: MORPHINE (Verified Adverse Reaction, Severe, PARADOXICAL REACTION, 10/08/12 ) Subjective pt withdraws to pain, no bleeding, continue weaning vent, HD today Objective Last 24 Hour Vital Signs Date Time Temp Pulse Resp B/P Pulse Ox O2 Delivery O2 Flow Rate FiO2 02/23/17 20:00 60 02/23/17 20:00 98 02/23/17 20:00 99.0 98 33 132/42 100 Mechanical Ventilator 60 02/23/17 19:05 99 30 60 02/23/17 19:00 99 29 126/42 97 Mechanical Ventilator 60 02/23/17 18:00 95 30 112/31 97 Mechanical Ventilator 60 02/23/17 17:00 99 19 132/48 97 Mechanical Ventilator 60 02/23/17 16:50 99 23 60 02/23/17 16:00 97.8 96 18 114/45 97 Mechanical Ventilator 60 02/23/17 16:00 60 02/23/17 16:00 94 02/23/17 15:20 95 30 60 02/23/17 15:00 92 18 126/41 97 Mechanical Ventilator 60 02/23/17 14:00 99 17 139/92 97 Mechanical Ventilator 60 02/23/17 13:16 60 02/23/17 13:00 96 19 60 02/23/17 13:00 95 19 135/51 99 Mechanical Ventilator 60 02/23/17 12:00 89 02/23/17 12:00 98.3 92 27 125/46 100 Mechanical Ventilator 60 02/23/17 12:00 60 02/23/17 11:00 92 32 140/46 99 Mechanical Ventilator 60 02/23/17 10:40 98 30 60 02/23/17 10:00 93 32 121/57 99 Mechanical Ventilator 60 02/23/17 09:00 93 30 60 02/23/17 09:00 93 32 114/47 100 Mechanical Ventilator 60 02/23/17 08:41 Mechanical Ventilator 15.0 60 02/23/17 08:00 98.1 105 27 93/62 100 Mechanical Ventilator 60 02/23/17 08:00 96 02/23/17 07:52 60 02/23/17 07:10 97 27 60 02/23/17 07:00 88 21 113/50 100 Mechanical Ventilator 60 02/23/17 06:00 96 24 130/49 98 Mechanical Ventilator 60 02/23/17 05:20 Mechanical Ventilator 15.0 60 02/23/17 05:00 98 25 140/56 97 Mechanical Ventilator 60 02/23/17 04:58 94 28 60 02/23/17 04:00 60 02/23/17 04:00 96 02/23/17 04:00 98.2 96 26 152/49 98 Mechanical Ventilator 60 02/23/17 03:00 94 19 125/43 97 Mechanical Ventilator 60 02/23/17 02:58 94 16 60 02/23/17 02:00 95 18 94/43 100 Mechanical Ventilator 60 02/23/17 01:24 99 21 99 Mechanical Ventilator 02/23/17 01:00 101 23 130/58 97 Mechanical Ventilator 60 02/23/17 01:00 104 28 96 Mechanical Ventilator 60 02/23/17 00:50 100 24 60 02/23/17 00:00 93 02/23/17 00:00 60 02/23/17 00:00 97.8 93 23 135/48 100 Mechanical Ventilator 60 02/22/17 23:00 93 26 130/48 100 Mechanical Ventilator 60 02/22/17 22:35 95 21 60 02/22/17 22:00 95 26 130/44 100 Mechanical Ventilator 60 Intake and Output 02/22/17 02/23/17 19:00 07:00 Intake Total 470 ml 530 ml Output Total 0 ml 0 ml Balance 470 ml 530 ml Free Water 40 ml IV Total 110 ml Tube Feeding 420 ml 420 ml Other 10 ml Output Urine Total 0 ml 0 ml # Bowel Movements 2 4 Laboratory Tests 02/23/17 06:15: White Blood Count 18.8H, Red Blood Count 2.91L, Hemoglobin 8.9L, Hematocrit 28.0L, Mean Corpuscular Volume 96, Mean Corpuscular Hemoglobin 30.6, Mean Corpuscular Hemoglobin Concent 31.7L, Red Cell Distribution Width 17.6H, Platelet Count 90L, Mean Platelet Volume 7.2, Neutrophils (%) (Auto) , Lymphocytes (%) (Auto) , Monocytes (%) (Auto) , Eosinophils (%) (Auto) , Basophils (%) (Auto) , Differential Total Cells Counted 100, Neutrophils % ( Manual) 94H, Lymphocytes % (Manual) 2L, Monocytes % (Manual) 1, Eosinophils % ( Manual) 3, Basophils % (Manual) 0, Band Neutrophils 0, Platelet Estimate DecreasedL, Platelet Morphology Normal, Hypochromasia 1+, Anisocytosis 1+, Sodium Level 141, Potassium Level 3.2L, Chloride Level 95L, Carbon Dioxide Level 31H, Anion Gap 15, Blood Urea Nitrogen 92H, Creatinine 4.5H, Estimat Glomerular Filtration Rate , Glucose Level 211H, Calcium Level 7.6L Height (Feet): 5 Height (Inches): 1.00 Weight (Pounds): 200 General Appearance: WD/WN EENT: PERRL/EOMI Neck: non-tender Cardiovascular: normal peripheral pulses Respiratory/Chest: chest wall non-tender Abdomen: normal bowel sounds Extremities: normal range of motion Edema: no edema noted Pedal (L), no edema noted Pedal (R), no edema noted Generalized Neurologic: maitre d' II-XII grossly normal Skin: warm/dry Mariano Ortiz Feb 23, 2017 21:03
--- NOTE | 2017-02-23 22:20 | General Progress Note ---
Assessment/Plan Assessment/Plan Assessment - TF intolerance - resolved - DM - CAD - Resp failure - leukocytosis - anemia/ thrombocytopenia - lung mass - Azotemia Recommendations - abx - monitor residuals - elevate HOB - supportive care - possible PEG Subjective Allergies: Coded Allergies: MORPHINE (Verified Adverse Reaction, Severe, PARADOXICAL REACTION, 10/08/12 ) Subjective intubated TF tolerated well no events overnight d/w RN Objective Last 24 Hour Vital Signs Date Time Temp Pulse Resp B/P Pulse Ox O2 Delivery O2 Flow Rate FiO2 02/23/17 22:00 95 34 122/40 100 Mechanical Ventilator 60 02/23/17 21:18 98 31 60 02/23/17 21:00 100 37 123/42 100 Mechanical Ventilator 60 02/23/17 20:00 60 02/23/17 20:00 98 02/23/17 20:00 99.0 98 33 132/42 100 Mechanical Ventilator 60 02/23/17 19:05 99 30 60 02/23/17 19:00 99 29 126/42 97 Mechanical Ventilator 60 02/23/17 18:00 95 30 112/31 97 Mechanical Ventilator 60 02/23/17 17:00 99 19 132/48 97 Mechanical Ventilator 60 02/23/17 16:50 99 23 60 02/23/17 16:00 97.8 96 18 114/45 97 Mechanical Ventilator 60 02/23/17 16:00 60 02/23/17 16:00 94 02/23/17 15:20 95 30 60 02/23/17 15:00 92 18 126/41 97 Mechanical Ventilator 60 02/23/17 14:00 99 17 139/92 97 Mechanical Ventilator 60 02/23/17 13:16 60 02/23/17 13:00 96 19 60 02/23/17 13:00 95 19 135/51 99 Mechanical Ventilator 60 02/23/17 12:00 89 02/23/17 12:00 98.3 92 27 125/46 100 Mechanical Ventilator 60 02/23/17 12:00 60 02/23/17 11:00 92 32 140/46 99 Mechanical Ventilator 60 02/23/17 10:40 98 30 60 02/23/17 10:00 93 32 121/57 99 Mechanical Ventilator 60 02/23/17 09:00 93 30 60 02/23/17 09:00 93 32 114/47 100 Mechanical Ventilator 60 02/23/17 08:41 Mechanical Ventilator 15.0 60 02/23/17 08:00 98.1 105 27 93/62 100 Mechanical Ventilator 60 02/23/17 08:00 96 02/23/17 07:52 60 02/23/17 07:10 97 27 60 02/23/17 07:00 88 21 113/50 100 Mechanical Ventilator 60 02/23/17 06:00 96 24 130/49 98 Mechanical Ventilator 60 02/23/17 05:20 Mechanical Ventilator 15.0 60 02/23/17 05:00 98 25 140/56 97 Mechanical Ventilator 60 02/23/17 04:58 94 28 60 02/23/17 04:00 60 02/23/17 04:00 96 02/23/17 04:00 98.2 96 26 152/49 98 Mechanical Ventilator 60 02/23/17 03:00 94 19 125/43 97 Mechanical Ventilator 60 02/23/17 02:58 94 16 60 02/23/17 02:00 95 18 94/43 100 Mechanical Ventilator 60 02/23/17 01:24 99 21 99 Mechanical Ventilator 02/23/17 01:00 101 23 130/58 97 Mechanical Ventilator 60 02/23/17 01:00 104 28 96 Mechanical Ventilator 60 02/23/17 00:50 100 24 60 02/23/17 00:00 93 02/23/17 00:00 60 02/23/17 00:00 97.8 93 23 135/48 100 Mechanical Ventilator 60 02/22/17 23:00 93 26 130/48 100 Mechanical Ventilator 60 02/22/17 22:35 95 21 60 Intake and Output 02/22/17 02/23/17 19:00 07:00 Intake Total 470 ml 530 ml Output Total 0 ml 0 ml Balance 470 ml 530 ml Free Water 40 ml IV Total 110 ml Tube Feeding 420 ml 420 ml Other 10 ml Output Urine Total 0 ml 0 ml # Bowel Movements 2 4 Laboratory Tests 02/23/17 06:15: White Blood Count 18.8H, Red Blood Count 2.91L, Hemoglobin 8.9L, Hematocrit 28.0L, Mean Corpuscular Volume 96, Mean Corpuscular Hemoglobin 30.6, Mean Corpuscular Hemoglobin Concent 31.7L, Red Cell Distribution Width 17.6H, Platelet Count 90L, Mean Platelet Volume 7.2, Neutrophils (%) (Auto) , Lymphocytes (%) (Auto) , Monocytes (%) (Auto) , Eosinophils (%) (Auto) , Basophils (%) (Auto) , Differential Total Cells Counted 100, Neutrophils % ( Manual) 94H, Lymphocytes % (Manual) 2L, Monocytes % (Manual) 1, Eosinophils % ( Manual) 3, Basophils % (Manual) 0, Band Neutrophils 0, Platelet Estimate DecreasedL, Platelet Morphology Normal, Hypochromasia 1+, Anisocytosis 1+, Sodium Level 141, Potassium Level 3.2L, Chloride Level 95L, Carbon Dioxide Level 31H, Anion Gap 15, Blood Urea Nitrogen 92H, Creatinine 4.5H, Estimat Glomerular Filtration Rate , Glucose Level 211H, Calcium Level 7.6L Height (Feet): 5 Height (Inches): 1.00 Weight (Pounds): 200 Objective WDWN NCAT supple CTA RRR soft ND NT no edema ARLIN LONGORIA Feb 23, 2017 22:20
[2017-02-24] VITALS (24 sets, daily range): BP systolic 91–161; BP diastolic 31–93
[2017-02-24 05:04] LABS: MEAN CORPUSCULAR HEMOGLOBIN 30.9 PG (27.0-31.0); MEAN CORPUSCULAR HGB CONC 32.1 G/DL (32.0-36.0); MEAN CORPUSCULAR VOLUME 96 FL (80-99); PLATELET COUNT 64 K/UL (150-450); RED BLOOD COUNT 2.49 M/UL (4.20-5.40); RED CELL DISTRIBUTION WIDTH 17.3 % (11.6-14.8)
[2017-02-24 05:38] LABS: ALANINE AMINOTRANSFERASE 9 U/L (3-33); ALBUMIN/GLOBULIN RATIO 0.6 (1.0-2.7); ANION GAP 14 (5-15); ASPARTATE AMINO TRANSFERASE 18 U/L (5-40); CALCIUM 7.6 mg/dL (8.6-10.2); CARBON DIOXIDE 31 mEQ/L (20-30); CHLORIDE 95 mEQ/L (98-107); CREATININE 4.4 mg/dL (0.5-0.9); CRP QUANT 18.2 mg/dL (< 0.5); HEMOLYSIS 19; PHOSPHORUS 3.9 mg/dL (2.5-4.8); POTASSIUM 3.6 mEQ/L (3.4-4.9); SODIUM 140 mEQ/L (135-145); URIC ACID 5.7 mg/dL (3.0-7.5)
[2017-02-24] MEDS: NovoLOG Insulin Flexpen SUBQ SCH ×4 (05:44→23:21)
[2017-02-24] MEDS: Renvela 800mg Pkt NG SCH ×3 (08:19→17:23)
[2017-02-24] MEDS: Analgesic Balm 15gm TOPIC SCH ×4 (08:19→20:32)
[2017-02-24] MEDS: Pantoprazole 40mg pkt GT SCH (08:19)
[2017-02-24 08:32] LABS: ANISOCYTOSIS 1+; BAND NEUTROPHILS % (MANUAL) 1 % (0-8); BASOPHILS % (MANUAL) 0 % (0-2); EOSINOPHILS % (MANUAL) 0 % (0-3); HYPOCHROMASIA 3+; LYMPHOCYTES % (MANUAL) 3 % (20-45); NEUTROPHILS % (MANUAL) 92 % (45-75); PLATELET ESTIMATE DECREASED; PLATELET MORPHOLOGY NORMAL; SPHEROCYTES 1+; TOTAL CELLS COUNTED 100
--- NOTE | 2017-02-24 08:36 | Critical Care Progress Note ---
Assessment/Plan Assessment/Plan hypoxemia respiratory failure respiratory acidosis pulmonary infiltrates thrombocytopenia renal failure ALOC chronic encephalopathy septic shock leukocytosis pulmonary infiltrates ARDS DIC likely s/p transfusion atrial fibrillation hypotension PLAN wean as able; on SIMV- not tolerating-tachypneic off steroids follow up labs and adjust transfuse ? d/w heme monitor off pressors monitor renal function; on HD per renal blood pressure still adequate antibiotics noted o2 needs still high monitor for any change in rhythm follow up ABG and CXR intermittently prognosis remains poor; will update family daily d/w CM medications/laboratory data/nursing notes/ICU care reviewed in detail note reviewed and edited care discussed with RN and RT ICU time spent 35 minutes Critical Care - Subjective Interval Events: long d/w son x 30 min does not want trach plan for terminal extubation 02/26 update on status ROS Limited/Unobtainable: Yes Condition: critical EKG Rhythm: Sinus Rhythm Residuals: minimal Tube Feeding Tolerated: yes I&O: Intake and Output 02/23/17 02/24/17 19:00 07:00 Intake Total 465 ml 500 ml Output Total 1100 ml Balance -635 ml 500 ml Free Water 20 ml Tube Feeding 385 ml 420 ml Other 80 ml 60 ml Output Urine Total 0 ml Hemodialysis UF 1100 ml # Bowel Movements 2 1 Critical Care - Objective ET-Tube: 7.0 ET Position: 22 Last 24 Hour Vital Signs Date Time Temp Pulse Resp B/P Pulse Ox O2 Delivery O2 Flow Rate FiO2 02/24/17 08:00 99.1 91 29 122/42 98 Mechanical Ventilator 60 02/24/17 08:00 100 02/24/17 08:00 60 02/24/17 07:12 99 28 60 02/24/17 07:00 97 31 140/44 97 Mechanical Ventilator 60 02/24/17 06:00 92 30 101/42 97 Mechanical Ventilator 60 02/24/17 05:14 98 24 60 02/24/17 05:00 96 32 122/42 97 Mechanical Ventilator 60 02/24/17 04:00 60 02/24/17 04:00 86 02/24/17 04:00 98.8 82 30 106/37 100 Mechanical Ventilator 60 02/24/17 03:20 99 24 60 02/24/17 03:00 96 31 134/39 97 Mechanical Ventilator 60 02/24/17 02:00 99 30 141/39 100 Mechanical Ventilator 60 02/24/17 01:05 96 32 60 02/24/17 01:00 100 29 106/38 100 Mechanical Ventilator 60 02/24/17 00:00 98.5 97 30 117/38 100 Mechanical Ventilator 60 02/24/17 00:00 60 02/24/17 00:00 97 02/23/17 23:16 98 31 60 02/23/17 23:00 99 30 125/46 100 Mechanical Ventilator 60 02/23/17 22:00 95 34 122/40 100 Mechanical Ventilator 60 02/23/17 21:18 98 31 60 02/23/17 21:00 100 37 123/42 100 Mechanical Ventilator 60 02/23/17 20:00 60 02/23/17 20:00 98 02/23/17 20:00 99.0 98 33 132/42 100 Mechanical Ventilator 60 02/23/17 19:05 99 30 60 02/23/17 19:00 99 29 126/42 97 Mechanical Ventilator 60 02/23/17 18:00 95 30 112/31 97 Mechanical Ventilator 60 02/23/17 17:00 99 19 132/48 97 Mechanical Ventilator 60 02/23/17 16:50 99 23 60 02/23/17 16:00 97.8 96 18 114/45 97 Mechanical Ventilator 60 02/23/17 16:00 60 02/23/17 16:00 94 02/23/17 15:20 95 30 60 02/23/17 15:00 92 18 126/41 97 Mechanical Ventilator 60 02/23/17 14:00 99 17 139/92 97 Mechanical Ventilator 60 02/23/17 13:16 60 02/23/17 13:00 96 19 60 02/23/17 13:00 95 19 135/51 99 Mechanical Ventilator 60 02/23/17 12:00 89 02/23/17 12:00 98.3 92 27 125/46 100 Mechanical Ventilator 60 02/23/17 12:00 60 02/23/17 11:00 92 32 140/46 99 Mechanical Ventilator 60 02/23/17 10:40 98 30 60 02/23/17 10:00 93 32 121/57 99 Mechanical Ventilator 60 02/23/17 09:00 93 30 60 02/23/17 09:00 93 32 114/47 100 Mechanical Ventilator 60 02/23/17 08:41 Mechanical Ventilator 15.0 60 Labs: Labs Test 02/22/17 04:20 02/23/17 06:15 02/24/17 04:10 White Blood Count 20.0 K/UL (4.8-10.8) 18.8 K/UL (4.8-10.8) 19.0 K/UL (4.8-10.8) Red Blood Count 2.95 M/UL (4.20-5.40) 2.91 M/UL (4.20-5.40) 2.49 M/UL (4.20-5.40) Hemoglobin 9.2 G/DL (12.0-16.0) 8.9 G/DL (12.0-16.0) 7.7 G/DL (12.0-16.0) Hematocrit 28.3 % (37.0-47.0) 28.0 % (37.0-47.0) 23.9 % (37.0-47.0) Mean Corpuscular Volume 96 FL (80-99) 96 FL (80-99) 96 FL (80-99) Mean Corpuscular Hemoglobin 31.2 PG (27.0-31.0) 30.6 PG (27.0-31.0) 30.9 PG (27.0-31.0) Mean Corpuscular Hemoglobin Concent 32.5 G/DL (32.0-36.0) 31.7 G/DL (32.0-36.0) 32.1 G/DL (32.0-36.0) Red Cell Distribution Width 17.9 % (11.6-14.8) 17.6 % (11.6-14.8) 17.3 % (11.6-14.8) Platelet Count 89 K/UL (150-450) 90 K/UL (150-450) 64 K/UL (150-450) Mean Platelet Volume 8.1 FL (6.5-10.1) 7.2 FL (6.5-10.1) 9.0 FL (6.5-10.1) Neutrophils (%) (Auto) % (45.0-75.0) % (45.0-75.0) % (45.0-75.0) Lymphocytes (%) (Auto) % (20.0-45.0) % (20.0-45.0) % (20.0-45.0) Monocytes (%) (Auto) % (1.0-10.0) % (1.0-10.0) % (1.0-10.0) Eosinophils (%) (Auto) % (0.0-3.0) % (0.0-3.0) % (0.0-3.0) Basophils (%) (Auto) % (0.0-2.0) % (0.0-2.0) % (0.0-2.0) Differential Total Cells Counted 100 100 100 Neutrophils % (Manual) 86 % (45-75) 94 % (45-75) 92 % (45-75) Lymphocytes % (Manual) 5 % (20-45) 2 % (20-45) 3 % (20-45) Monocytes % (Manual) 9 % (1-10) 1 % (1-10) 4 % (1-10) Eosinophils % (Manual) 0 % (0-3) 3 % (0-3) 0 % (0-3) Basophils % (Manual) 0 % (0-2) 0 % (0-2) 0 % (0-2) Band Neutrophils 0 % (0-8) 0 % (0-8) 1 % (0-8) Platelet Estimate Decreased Decreased Decreased Platelet Morphology Normal Normal Normal Hypochromasia 1+ 1+ 3+ Anisocytosis 1+ 1+ 1+ Sodium Level 141 mEQ/L (135-145) 140 mEQ/L (135-145) Potassium Level 3.2 mEQ/L (3.4-4.9) 3.6 mEQ/L (3.4-4.9) Chloride Level 95 mEQ/L (98-107) 95 mEQ/L (98-107) Carbon Dioxide Level 31 mEQ/L (20-30) 31 mEQ/L (20-30) Anion Gap 15 (5-15) 14 (5-15) Blood Urea Nitrogen 92 mg/dL (7-23) 84 mg/dL (7-23) Creatinine 4.5 mg/dL (0.5-0.9) 4.4 mg/dL (0.5-0.9) Estimat Glomerular Filtration Rate mL/min (>60) mL/min (>60) Glucose Level 211 mg/dL (74-106) 163 mg/dL (74-106) Calcium Level 7.6 mg/dL (8.6-10.2) 7.6 mg/dL (8.6-10.2) Spherocytes 1+ Uric Acid 5.7 mg/dL (3.0-7.5) Phosphorus Level 3.9 mg/dL (2.5-4.8) Magnesium Level 2.0 mg/dL (1.7-2.5) Total Bilirubin 0.3 mg/dL (0.0-1.2) Aspartate Amino Transf (AST/SGOT) 18 U/L (5-40) Alanine Aminotransferase (ALT/SGPT) 9 U/L (3-33) Alkaline Phosphatase 155 U/L (35-104) C-Reactive Protein, Quantitative 18.2 mg/dL (< 0.5) Pro-B-Type Natriuretic Peptide 7630 pg/mL (0-450) Total Protein 4.0 g/dL (6.6-8.7) Albumin 1.6 g/dL (3.5-5.2) Globulin 2.4 g/dL Albumin/Globulin Ratio 0.6 (1.0-2.7) Objective: WDWN chronically ill appearing; on the ventilator arouseable NAD coarse breath sounds bilaterally with some rhonchi but no wheeze orally intubated S1S2 RRR without MRG; rate controlled NABS nontender no HSM; feeding tube in place; no distention no CC; mild edema without change nonfocal LOC without change skin noted and examined pupils sluggish reviewed and edited Accucheck: 176 FELIPE PATHAK Feb 24, 2017 08:36
--- NOTE | 2017-02-24 10:26 | General Progress Note ---
Assessment/Plan Status: stable Assessment/Plan Has acute respiratory distress- intubated in ICU Septic shock ( Had long talk with daughter Gali 01/19 ) - Acute renal failure and hyperKalemia - Renal failure, likely diabetic nephropathy / HTN - Sepsis , Pneumonia, Respiratory failure and Hypoxia other - h/o Cellulitis in diabetic foot right LE - Decubitus ulcer - Dementia - Diabetes mellitus - Nonpressure ulcer to level of fascia right lateral ankle - S/P ORIF right ankle Plan: intubate - ICU On hydrocortisone- Had permacath 01/30 weaning in process Adjust BP meds- Labile BP- - Clonidin PRN HD 02/23 - done this morning next 12/29 Transfused add phos binders monitor WBCs Monitor renal parameters and Vanco level- ARTUR Kidney done last admission- unremarkable Adjust BP meds- Avoid Nephrotoxics- discussed with CM Per orders Subjective ROS Limited/Unobtainable: Yes Allergies: Coded Allergies: MORPHINE (Verified Adverse Reaction, Severe, PARADOXICAL REACTION, 10/08/12 ) Objective Last 24 Hour Vital Signs Date Time Temp Pulse Resp B/P Pulse Ox O2 Delivery O2 Flow Rate FiO2 02/24/17 09:00 94 30 133/47 97 Mechanical Ventilator 60 02/24/17 08:41 89 24 60 02/24/17 08:00 99.1 91 29 122/42 98 Mechanical Ventilator 60 02/24/17 08:00 100 02/24/17 08:00 60 02/24/17 07:12 99 28 60 02/24/17 07:00 97 31 140/44 97 Mechanical Ventilator 60 02/24/17 06:00 92 30 101/42 97 Mechanical Ventilator 60 02/24/17 05:14 98 24 60 02/24/17 05:00 96 32 122/42 97 Mechanical Ventilator 60 02/24/17 04:00 60 02/24/17 04:00 86 02/24/17 04:00 98.8 82 30 106/37 100 Mechanical Ventilator 60 02/24/17 03:20 99 24 60 02/24/17 03:00 96 31 134/39 97 Mechanical Ventilator 60 02/24/17 02:00 99 30 141/39 100 Mechanical Ventilator 60 02/24/17 01:05 96 32 60 02/24/17 01:00 100 29 106/38 100 Mechanical Ventilator 60 02/24/17 00:00 98.5 97 30 117/38 100 Mechanical Ventilator 60 02/24/17 00:00 60 02/24/17 00:00 97 02/23/17 23:16 98 31 60 02/23/17 23:00 99 30 125/46 100 Mechanical Ventilator 60 02/23/17 22:00 95 34 122/40 100 Mechanical Ventilator 60 02/23/17 21:18 98 31 60 02/23/17 21:00 100 37 123/42 100 Mechanical Ventilator 60 02/23/17 20:00 60 02/23/17 20:00 98 02/23/17 20:00 99.0 98 33 132/42 100 Mechanical Ventilator 60 02/23/17 19:05 99 30 60 02/23/17 19:00 99 29 126/42 97 Mechanical Ventilator 60 02/23/17 18:00 95 30 112/31 97 Mechanical Ventilator 60 02/23/17 17:00 99 19 132/48 97 Mechanical Ventilator 60 02/23/17 16:50 99 23 60 02/23/17 16:00 97.8 96 18 114/45 97 Mechanical Ventilator 60 02/23/17 16:00 60 02/23/17 16:00 94 02/23/17 15:20 95 30 60 02/23/17 15:00 92 18 126/41 97 Mechanical Ventilator 60 02/23/17 14:00 99 17 139/92 97 Mechanical Ventilator 60 02/23/17 13:16 60 02/23/17 13:00 96 19 60 02/23/17 13:00 95 19 135/51 99 Mechanical Ventilator 60 02/23/17 12:00 89 02/23/17 12:00 98.3 92 27 125/46 100 Mechanical Ventilator 60 02/23/17 12:00 60 02/23/17 11:00 92 32 140/46 99 Mechanical Ventilator 60 02/23/17 10:40 98 30 60 Intake and Output 02/23/17 02/24/17 19:00 07:00 Intake Total 465 ml 500 ml Output Total 1100 ml Balance -635 ml 500 ml Free Water 20 ml Tube Feeding 385 ml 420 ml Other 80 ml 60 ml Output Urine Total 0 ml Hemodialysis UF 1100 ml # Bowel Movements 2 1 Laboratory Tests 02/24/17 04:10: White Blood Count 19.0H, Red Blood Count 2.49L, Hemoglobin 7.7L, Hematocrit 23.9L, Mean Corpuscular Volume 96, Mean Corpuscular Hemoglobin 30.9, Mean Corpuscular Hemoglobin Concent 32.1, Red Cell Distribution Width 17.3H, Platelet Count 64L, Mean Platelet Volume 9.0, Neutrophils (%) (Auto) , Lymphocytes (%) (Auto) , Monocytes (%) (Auto) , Eosinophils (%) (Auto) , Basophils (%) (Auto) , Differential Total Cells Counted 100, Neutrophils % ( Manual) 92H, Lymphocytes % (Manual) 3L, Monocytes % (Manual) 4, Eosinophils % ( Manual) 0, Basophils % (Manual) 0, Band Neutrophils 1, Platelet Estimate DecreasedL, Platelet Morphology Normal, Hypochromasia 3+, Anisocytosis 1+, Spherocytes 1+, Sodium Level 140, Potassium Level 3.6, Chloride Level 95L, Carbon Dioxide Level 31H, Anion Gap 14, Blood Urea Nitrogen 84H, Creatinine 4.4H , Estimat Glomerular Filtration Rate , Glucose Level 163H, Uric Acid 5.7, Calcium Level 7.6L, Phosphorus Level 3.9, Magnesium Level 2.0, Total Bilirubin 0.3, Aspartate Amino Transf (AST/SGOT) 18, Alanine Aminotransferase (ALT/SGPT) 9 , Alkaline Phosphatase 155H, C-Reactive Protein, Quantitative 18.2H, Pro-B-Type Natriuretic Peptide 7630H, Total Protein 4.0L, Albumin 1.6L, Globulin 2.4, Albumin/Globulin Ratio 0.6L Height (Feet): 5 Height (Inches): 1.00 Weight (Pounds): 200 General Appearance: no apparent distress Cardiovascular: tachycardia Respiratory/Chest: decreased breath sounds Abdomen: soft Objective other PE not changed BERTRAM CASTAÑEDA Feb 24, 2017 10:26
--- NOTE | 2017-02-24 11:12 | Infectious Diseases Prog Note ---
Assessment/Plan Assessment/Plan ASSESSMENT: 76 y/o female with: // Probable UTI - UCx(-) // Hypoxia, possible HCAP Scx: ESBL Kleb - CXR 02/02 : Extensive bilateral interstitial and airspace opacities, unchanged // h/o CoNS bacteremia 11/05 ( 01/09 ) ?real ( PICC tip+ ) vs contaminant r/o recurrence/persistence - surveillance BCx(-) // h/o right ankle cellulitis / osteomyelitis / hardware infection SP incomplete Rx ( recommended to complete 6 weeks IV daptomycin, cefepime ( end ), but daughter apparently declined at last discharge per documentation ) - SP hardware removal 12/15 - no culture sent - 3P bone scan: 3 phase increased activity in region of distal aspect of right fibula compatible with hardware loosening and/or osteomyelitis - XR: surgical hardware seen reducing old healed distal fibular and medial malleolar fractures. No acute fractures. No dislocations. Bones are demineralized. - elevated ESR, CRP - h/o right ankle ORIF // Probable sepsis,SP // Leukocytosis , improving ( SP sternoids stopped 02/23 ) persistent not improving with prolong course of AB Rx // Diarrhea C-Diff Neg // ..US abd :neg of infectious process // VDRF intubated 02/07 // ARF on CKD --> IHD per renal SP placement of tunneled right jugular hemodialysis catheter. 01/29 // Dementia // DM2 - HbA1c 6.1% // h/o CAD - trop(-) x1 // [facility] resident // VRE colonized // No ABX allergies // Full Code PLAN: - cont Mycamine d# 5 / 10 as empiric Rx of probable candidiasis ( 02/20 SP DC Merrem d# 14 /14 ) ( 02/07 SP DC Teflaro d# 10 ) ( 01/28 SP IV cefepime d# 10 IV Vanco d# 2 ) - monitor CBC, temperatures - monitor BMP - monitor CXR - respiratory support prn - DNR poor prognosis Subjective Constitutional: Denies: anorexia, chills, drenching sweats, fatigue, fever, no symptoms, other Allergies: Coded Allergies: MORPHINE (Verified Adverse Reaction, Severe, PARADOXICAL REACTION, 10/08/12 ) Subjective on vent Objective Vital Signs Last 24 Hour Vital Signs Date Time Temp Pulse Resp B/P Pulse Ox O2 Delivery O2 Flow Rate FiO2 02/24/17 10:00 96 16 131/43 98 Mechanical Ventilator 60 02/24/17 09:00 94 30 133/47 97 Mechanical Ventilator 60 02/24/17 08:41 89 24 60 02/24/17 08:00 99.1 91 29 122/42 98 Mechanical Ventilator 60 02/24/17 08:00 100 02/24/17 08:00 60 02/24/17 07:12 99 28 60 02/24/17 07:00 97 31 140/44 97 Mechanical Ventilator 60 02/24/17 06:00 92 30 101/42 97 Mechanical Ventilator 60 02/24/17 05:14 98 24 60 02/24/17 05:00 96 32 122/42 97 Mechanical Ventilator 60 02/24/17 04:00 60 02/24/17 04:00 86 02/24/17 04:00 98.8 82 30 106/37 100 Mechanical Ventilator 60 02/24/17 03:20 99 24 60 02/24/17 03:00 96 31 134/39 97 Mechanical Ventilator 60 02/24/17 02:00 99 30 141/39 100 Mechanical Ventilator 60 02/24/17 01:05 96 32 60 02/24/17 01:00 100 29 106/38 100 Mechanical Ventilator 60 02/24/17 00:00 98.5 97 30 117/38 100 Mechanical Ventilator 60 02/24/17 00:00 60 02/24/17 00:00 97 02/23/17 23:16 98 31 60 02/23/17 23:00 99 30 125/46 100 Mechanical Ventilator 60 02/23/17 22:00 95 34 122/40 100 Mechanical Ventilator 60 02/23/17 21:18 98 31 60 02/23/17 21:00 100 37 123/42 100 Mechanical Ventilator 60 02/23/17 20:00 60 02/23/17 20:00 98 02/23/17 20:00 99.0 98 33 132/42 100 Mechanical Ventilator 60 02/23/17 19:05 99 30 60 02/23/17 19:00 99 29 126/42 97 Mechanical Ventilator 60 02/23/17 18:00 95 30 112/31 97 Mechanical Ventilator 60 02/23/17 17:00 99 19 132/48 97 Mechanical Ventilator 60 02/23/17 16:50 99 23 60 02/23/17 16:00 97.8 96 18 114/45 97 Mechanical Ventilator 60 02/23/17 16:00 60 02/23/17 16:00 94 02/23/17 15:20 95 30 60 02/23/17 15:00 92 18 126/41 97 Mechanical Ventilator 60 02/23/17 14:00 99 17 139/92 97 Mechanical Ventilator 60 02/23/17 13:16 60 02/23/17 13:00 96 19 60 02/23/17 13:00 95 19 135/51 99 Mechanical Ventilator 60 02/23/17 12:00 89 02/23/17 12:00 98.3 92 27 125/46 100 Mechanical Ventilator 60 02/23/17 12:00 60 Height (Feet): 5 Height (Inches): 1.00 Weight (Pounds): 200 HEENT: atraumatic Respiratory/Chest: no respiratory distress Cardiovascular: normal rate Abdomen: no organomegaly Laboratory Tests Test 02/24/17 04:10 White Blood Count 19.0 K/UL (4.8-10.8) H Red Blood Count 2.49 M/UL (4.20-5.40) L Hemoglobin 7.7 G/DL (12.0-16.0) L Hematocrit 23.9 % (37.0-47.0) L Mean Corpuscular Volume 96 FL (80-99) Mean Corpuscular Hemoglobin 30.9 PG (27.0-31.0) Mean Corpuscular Hemoglobin Concent 32.1 G/DL (32.0-36.0) Red Cell Distribution Width 17.3 % (11.6-14.8) H Platelet Count 64 K/UL (150-450) L Mean Platelet Volume 9.0 FL (6.5-10.1) Neutrophils (%) (Auto) % (45.0-75.0) Lymphocytes (%) (Auto) % (20.0-45.0) Monocytes (%) (Auto) % (1.0-10.0) Eosinophils (%) (Auto) % (0.0-3.0) Basophils (%) (Auto) % (0.0-2.0) Differential Total Cells Counted 100 Neutrophils % (Manual) 92 % (45-75) H Lymphocytes % (Manual) 3 % (20-45) L Monocytes % (Manual) 4 % (1-10) Eosinophils % (Manual) 0 % (0-3) Basophils % (Manual) 0 % (0-2) Band Neutrophils 1 % (0-8) Platelet Estimate Decreased L Platelet Morphology Normal Hypochromasia 3+ Anisocytosis 1+ Spherocytes 1+ Sodium Level 140 mEQ/L (135-145) Potassium Level 3.6 mEQ/L (3.4-4.9) Chloride Level 95 mEQ/L (98-107) L Carbon Dioxide Level 31 mEQ/L (20-30) H Anion Gap 14 (5-15) Blood Urea Nitrogen 84 mg/dL (7-23) H Creatinine 4.4 mg/dL (0.5-0.9) H Estimat Glomerular Filtration Rate mL/min (>60) Glucose Level 163 mg/dL (74-106) H Uric Acid 5.7 mg/dL (3.0-7.5) Calcium Level 7.6 mg/dL (8.6-10.2) L Phosphorus Level 3.9 mg/dL (2.5-4.8) Magnesium Level 2.0 mg/dL (1.7-2.5) Total Bilirubin 0.3 mg/dL (0.0-1.2) Aspartate Amino Transf (AST/SGOT) 18 U/L (5-40) Alanine Aminotransferase (ALT/SGPT) 9 U/L (3-33) Alkaline Phosphatase 155 U/L (35-104) H C-Reactive Protein, Quantitative 18.2 mg/dL (< 0.5) H Pro-B-Type Natriuretic Peptide 7630 pg/mL (0-450) H Total Protein 4.0 g/dL (6.6-8.7) L Albumin 1.6 g/dL (3.5-5.2) L Globulin 2.4 g/dL Albumin/Globulin Ratio 0.6 (1.0-2.7) L Current Medications Medications (Trade) Dose Ordered Sig/Rina Route PRN Reason Start Time Stop Time Status Last Admin Dose Admin Acetaminophen (Tylenol) 650 mg Q6H PRN ORAL Mild Pain/Temp > 100.5 02/07/17 17:00 03/09/17 16:59 Albuterol/ Ipratropium (DuoNeb 0.5-3(2.5)mg/3ml) 3 ml Q2H PRN HHN Shortness of Breath 02/20/17 23:30 02/25/17 23:29 02/23/17 01:00 Dextrose (Dextrose 50%) STAT PRN IV Hypoglycemia 02/07/17 17:00 03/09/17 16:59 Insulin Aspart (NovoLOG) Q6HR SUBQ 02/07/17 18:00 03/09/17 17:59 02/24/17 05:44 Lorazepam (Ativan 2mg/ml 1ml) 1 mg Q3H PRN IV Anxiety/Agitation 02/18/17 06:30 02/25/17 06:29 02/18/17 14:49 Menthol/Methyl Salicylate (Bengay) 1 applic FOUR TIMES A DAY TOPIC 02/07/17 18:00 03/09/17 17:59 02/24/17 08:19 Micafungin Sodium/ Sodium Chloride (Mycamine/Sodium Chloride) 110 ml @ 110 mls/hr Q24H IVPB 02/20/17 21:00 02/27/17 20:59 02/23/17 21:03 Ondansetron HCl (Zofran) 4 mg Q6H PRN IVP Nausea & Vomiting 02/07/17 17:00 03/09/17 16:59 02/11/17 10:59 Pantoprazole 40 mg 40 mg Q12HR GT 02/19/17 21:00 03/21/17 20:59 02/24/17 08:19 Polyethylene Glycol (Miralax) 17 gm DAILYPRN PRN GT Constipation 02/07/17 17:00 03/09/17 16:59 Sevelamer Carbonate (Renvela) 1,600 mg THREE TIMES A DAY NG 02/17/17 13:00 03/19/17 12:59 02/24/17 08:19 GISELLA JEROME M.D. Feb 24, 2017 11:12
--- NOTE | 2017-02-24 13:18 | General Progress Note ---
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 bilateral right greater than left pleural effusions and mediastinal lymphadenopathy - she is a poor candidate for biopsy and has a poor prognosis # Anemia 2/2 chronic disease - s/p multiple units of blood # Leukocytosis - counts increasing, related to sepsis and underlying infection, is on antibiotics # Respiratory failure s/p intubation # Respiratory acidosis # Renal failure- pt on HD # ALOC # Sepsis Recs: - Continue to monitor counts - Considering terminal extubation - Weaning ventilator - Transfuse to hgb goal >7, plt goal >20k if bleeding --> conservative management - Give PRBC during HD to hgb<7 - She is off heparin, plavix, aspirin, levo, steroids - Agree to administer FFP if INR >2 - Does not require a biopsy as has poor prognosis and poor outcome at this time - OG feeds at maximal rate - Appreciate consultation! continue to follow Subjective ROS Limited/Unobtainable: Yes Constitutional: Reports: fever HEENT: Reports: no symptoms Cardiovascular: Reports: no symptoms Respiratory: Reports: no symptoms Gastrointestinal/Abdominal: Reports: no symptoms Genitourinary: Reports: no symptoms 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: Reports: no symptoms Endocrine: Reports: no symptoms Hematologic/Lymphatic: Reports: anemia Allergies: Coded Allergies: MORPHINE (Verified Adverse Reaction, Severe, PARADOXICAL REACTION, 10/08/12 ) Subjective NAD, no bleeding, weaning vent Objective Last 24 Hour Vital Signs Date Time Temp Pulse Resp B/P Pulse Ox O2 Delivery O2 Flow Rate FiO2 02/24/17 13:00 95 26 138/46 97 Mechanical Ventilator 60 02/24/17 12:41 94 23 60 02/24/17 12:00 98.8 94 28 152/47 97 Mechanical Ventilator 60 02/24/17 12:00 60 02/24/17 12:00 94 02/24/17 11:00 93 25 135/39 97 Mechanical Ventilator 60 02/24/17 10:52 92 23 60 02/24/17 10:00 96 16 131/43 98 Mechanical Ventilator 60 02/24/17 09:00 94 30 133/47 97 Mechanical Ventilator 60 02/24/17 08:41 89 24 60 02/24/17 08:00 99.1 91 29 122/42 98 Mechanical Ventilator 60 02/24/17 08:00 100 02/24/17 08:00 60 02/24/17 07:12 99 28 60 02/24/17 07:00 97 31 140/44 97 Mechanical Ventilator 60 02/24/17 06:00 92 30 101/42 97 Mechanical Ventilator 60 02/24/17 05:14 98 24 60 02/24/17 05:00 96 32 122/42 97 Mechanical Ventilator 60 02/24/17 04:00 60 02/24/17 04:00 86 02/24/17 04:00 98.8 82 30 106/37 100 Mechanical Ventilator 60 02/24/17 03:20 99 24 60 02/24/17 03:00 96 31 134/39 97 Mechanical Ventilator 60 02/24/17 02:00 99 30 141/39 100 Mechanical Ventilator 60 02/24/17 01:05 96 32 60 02/24/17 01:00 100 29 106/38 100 Mechanical Ventilator 60 02/24/17 00:00 98.5 97 30 117/38 100 Mechanical Ventilator 60 02/24/17 00:00 60 02/24/17 00:00 97 02/23/17 23:16 98 31 60 02/23/17 23:00 99 30 125/46 100 Mechanical Ventilator 60 02/23/17 22:00 95 34 122/40 100 Mechanical Ventilator 60 02/23/17 21:18 98 31 60 02/23/17 21:00 100 37 123/42 100 Mechanical Ventilator 60 02/23/17 20:00 60 02/23/17 20:00 98 02/23/17 20:00 99.0 98 33 132/42 100 Mechanical Ventilator 60 02/23/17 19:05 99 30 60 02/23/17 19:00 99 29 126/42 97 Mechanical Ventilator 60 02/23/17 18:00 95 30 112/31 97 Mechanical Ventilator 60 02/23/17 17:00 99 19 132/48 97 Mechanical Ventilator 60 02/23/17 16:50 99 23 60 02/23/17 16:00 97.8 96 18 114/45 97 Mechanical Ventilator 60 02/23/17 16:00 60 02/23/17 16:00 94 02/23/17 15:20 95 30 60 02/23/17 15:00 92 18 126/41 97 Mechanical Ventilator 60 02/23/17 14:00 99 17 139/92 97 Mechanical Ventilator 60 02/23/17 13:16 60 Intake and Output 02/23/17 02/24/17 19:00 07:00 Intake Total 465 ml 500 ml Output Total 1100 ml Balance -635 ml 500 ml Free Water 20 ml Tube Feeding 385 ml 420 ml Other 80 ml 60 ml Output Urine Total 0 ml Hemodialysis UF 1100 ml # Bowel Movements 2 1 Laboratory Tests 02/24/17 04:10: White Blood Count 19.0H, Red Blood Count 2.49L, Hemoglobin 7.7L, Hematocrit 23.9L, Mean Corpuscular Volume 96, Mean Corpuscular Hemoglobin 30.9, Mean Corpuscular Hemoglobin Concent 32.1, Red Cell Distribution Width 17.3H, Platelet Count 64L, Mean Platelet Volume 9.0, Neutrophils (%) (Auto) , Lymphocytes (%) (Auto) , Monocytes (%) (Auto) , Eosinophils (%) (Auto) , Basophils (%) (Auto) , Differential Total Cells Counted 100, Neutrophils % ( Manual) 92H, Lymphocytes % (Manual) 3L, Monocytes % (Manual) 4, Eosinophils % ( Manual) 0, Basophils % (Manual) 0, Band Neutrophils 1, Platelet Estimate DecreasedL, Platelet Morphology Normal, Hypochromasia 3+, Anisocytosis 1+, Spherocytes 1+, Sodium Level 140, Potassium Level 3.6, Chloride Level 95L, Carbon Dioxide Level 31H, Anion Gap 14, Blood Urea Nitrogen 84H, Creatinine 4.4H , Estimat Glomerular Filtration Rate , Glucose Level 163H, Uric Acid 5.7, Calcium Level 7.6L, Phosphorus Level 3.9, Magnesium Level 2.0, Total Bilirubin 0.3, Aspartate Amino Transf (AST/SGOT) 18, Alanine Aminotransferase (ALT/SGPT) 9 , Alkaline Phosphatase 155H, C-Reactive Protein, Quantitative 18.2H, Pro-B-Type Natriuretic Peptide 7630H, Total Protein 4.0L, Albumin 1.6L, Globulin 2.4, Albumin/Globulin Ratio 0.6L Height (Feet): 5 Height (Inches): 1.00 Weight (Pounds): 200 General Appearance: WD/WN EENT: PERRL/EOMI Neck: non-tender Cardiovascular: normal rate Respiratory/Chest: chest wall non-tender Abdomen: normal bowel sounds Extremities: non-tender Edema: no edema noted Leg (L), no edema noted Leg (R), no edema noted Pedal (L) , no edema noted Pedal (R), no edema noted Generalized Edema: trace edema Neurologic: unresponsive Skin: warm/dry Mariano Ortiz Feb 24, 2017 13:18
--- NOTE | 2017-02-24 19:22 | General Progress Note ---
Assessment/Plan Assessment/Plan Assessment - TF intolerance - resolved - DM - CAD - Resp failure - on weaning trials - leukocytosis and thrombocytopenia - anemia - lung mass - Azotemia Recommendations - abx - monitor residuals - elevate HOB - supportive care - message left for family to discuss Subjective Allergies: Coded Allergies: MORPHINE (Verified Adverse Reaction, Severe, PARADOXICAL REACTION, 10/08/12 ) Subjective intubated TF tolerated well no events overnight (+) BM d/w RN Objective Last 24 Hour Vital Signs Date Time Temp Pulse Resp B/P Pulse Ox O2 Delivery O2 Flow Rate FiO2 02/24/17 19:00 87 22 139/43 100 Mechanical Ventilator 60 02/24/17 18:00 102 27 107/31 98 Mechanical Ventilator 60 02/24/17 17:00 95 24 119/47 96 Mechanical Ventilator 60 02/24/17 16:38 78 25 60 02/24/17 16:00 60 02/24/17 16:00 98.5 79 20 91/37 97 Mechanical Ventilator 60 02/24/17 16:00 87 02/24/17 15:00 95 22 132/93 97 Mechanical Ventilator 60 02/24/17 14:51 94 24 60 02/24/17 14:00 92 26 122/51 99 Mechanical Ventilator 60 02/24/17 13:00 95 26 138/46 97 Mechanical Ventilator 60 02/24/17 12:41 94 23 60 02/24/17 12:00 98.8 94 28 152/47 97 Mechanical Ventilator 60 02/24/17 12:00 60 02/24/17 12:00 94 02/24/17 11:00 93 25 135/39 97 Mechanical Ventilator 60 02/24/17 10:52 92 23 60 02/24/17 10:00 96 16 131/43 98 Mechanical Ventilator 60 02/24/17 09:00 94 30 133/47 97 Mechanical Ventilator 60 02/24/17 08:41 89 24 60 02/24/17 08:00 99.1 91 29 122/42 98 Mechanical Ventilator 60 02/24/17 08:00 100 02/24/17 08:00 60 02/24/17 07:12 99 28 60 02/24/17 07:00 97 31 140/44 97 Mechanical Ventilator 60 02/24/17 06:00 92 30 101/42 97 Mechanical Ventilator 60 02/24/17 05:14 98 24 60 02/24/17 05:00 96 32 122/42 97 Mechanical Ventilator 60 02/24/17 04:00 60 02/24/17 04:00 86 02/24/17 04:00 98.8 82 30 106/37 100 Mechanical Ventilator 60 02/24/17 03:20 99 24 60 02/24/17 03:00 96 31 134/39 97 Mechanical Ventilator 60 02/24/17 02:00 99 30 141/39 100 Mechanical Ventilator 60 02/24/17 01:05 96 32 60 02/24/17 01:00 100 29 106/38 100 Mechanical Ventilator 60 02/24/17 00:00 98.5 97 30 117/38 100 Mechanical Ventilator 60 02/24/17 00:00 60 02/24/17 00:00 97 02/23/17 23:16 98 31 60 02/23/17 23:00 99 30 125/46 100 Mechanical Ventilator 60 02/23/17 22:00 95 34 122/40 100 Mechanical Ventilator 60 02/23/17 21:18 98 31 60 02/23/17 21:00 100 37 123/42 100 Mechanical Ventilator 60 02/23/17 20:00 60 02/23/17 20:00 98 02/23/17 20:00 99.0 98 33 132/42 100 Mechanical Ventilator 60 Intake and Output 02/23/17 02/24/17 19:00 07:00 Intake Total 465 ml 500 ml Output Total 1100 ml Balance -635 ml 500 ml Free Water 20 ml Tube Feeding 385 ml 420 ml Other 80 ml 60 ml Output Urine Total 0 ml Hemodialysis UF 1100 ml # Bowel Movements 2 1 Laboratory Tests 02/24/17 04:10: White Blood Count 19.0H, Red Blood Count 2.49L, Hemoglobin 7.7L, Hematocrit 23.9L, Mean Corpuscular Volume 96, Mean Corpuscular Hemoglobin 30.9, Mean Corpuscular Hemoglobin Concent 32.1, Red Cell Distribution Width 17.3H, Platelet Count 64L, Mean Platelet Volume 9.0, Neutrophils (%) (Auto) , Lymphocytes (%) (Auto) , Monocytes (%) (Auto) , Eosinophils (%) (Auto) , Basophils (%) (Auto) , Differential Total Cells Counted 100, Neutrophils % ( Manual) 92H, Lymphocytes % (Manual) 3L, Monocytes % (Manual) 4, Eosinophils % ( Manual) 0, Basophils % (Manual) 0, Band Neutrophils 1, Platelet Estimate DecreasedL, Platelet Morphology Normal, Hypochromasia 3+, Anisocytosis 1+, Spherocytes 1+, Sodium Level 140, Potassium Level 3.6, Chloride Level 95L, Carbon Dioxide Level 31H, Anion Gap 14, Blood Urea Nitrogen 84H, Creatinine 4.4H , Estimat Glomerular Filtration Rate , Glucose Level 163H, Uric Acid 5.7, Calcium Level 7.6L, Phosphorus Level 3.9, Magnesium Level 2.0, Total Bilirubin 0.3, Aspartate Amino Transf (AST/SGOT) 18, Alanine Aminotransferase (ALT/SGPT) 9 , Alkaline Phosphatase 155H, C-Reactive Protein, Quantitative 18.2H, Pro-B-Type Natriuretic Peptide 7630H, Total Protein 4.0L, Albumin 1.6L, Globulin 2.4, Albumin/Globulin Ratio 0.6L Height (Feet): 5 Height (Inches): 1.00 Weight (Pounds): 200 Objective WDWN NCAT supple CTA RRR soft ND NT no edema ARLIN LONGORIA Feb 24, 2017 19:22
[2017-02-24] MEDS: Micafungin 100 MG in NS 110 ML IVPB SCH (20:32)
[2017-02-25] VITALS (24 sets, daily range): BP systolic 94–149; BP diastolic 37–58
--- NOTE | 2017-02-25 02:58 | Progress Note ---
DATE: 02/23/2017 CARDIOLOGY PROGRESS NOTE Late entry for 02/23/2017. SUBJECTIVE: The patient was seen and evaluated in the intensive care unit. The case was discussed with Dr. Ly. The patient remains on ventilator support. Weaning efforts ongoing. She is now off steroids. She has been off pressors for almost a week. She continues with hemodialysis and ultrafiltration as needed. Her blood pressure control has been stable off pressors and her oxygen requirements have decreased. OBJECTIVE: VITAL SIGNS: Blood pressure 113/50, pulse 86, and respirations 21. The patient is afebrile. LUNGS: Bilateral breath sounds. Rhonchi. HEART: Irregularly irregular rhythm. Normal S1 and S2. ABDOMEN: Soft and nontender. NG tube in place. EXTREMITIES: Without edema. LABORATORY DATA: Sodium 141, potassium 3.2, bicarb 31, BUN 92, and creatinine 4.5. White count is 20K and hemoglobin 9.0. IMPRESSION: 1. Anemia, multifactorial. 2. Respiratory failure. 3. Recovering shock. 4. Sepsis. 5. Disseminated intravascular coagulopathy. 6. Acute renal failure, on hemodialysis. 7. Severe protein-calorie malnutrition. 8. Acute on chronic diastolic congestive heart failure, improved. PLAN: 1. Protein supplement by feeding tube. 2. Hemodialysis with ultrafiltration. 3. Antimicrobials. 4. Ventilator support with wean and oxygen taper. 5. Adjust potassium bath. 6. Prognosis remains poor and condition is still critical. Joss Rush M.D. DR: ERNESTO JOB#: [id number] CC: DOUGLAS
--- NOTE | 2017-02-25 03:18 | Progress Note ---
DATE: 02/24/2017 CARDIOLOGY PROGRESS NOTE SUBJECTIVE: Condition largely unchanged. The patient remains on ventilator support. Oxygen needs slowly improved. Weaning is ongoing. Family members do not want a trach. Consideration for terminal extubation and progress. Monitored rhythm, paroxysmal atrial fibrillation, rate controlled. OBJECTIVE: VITAL SIGNS: Blood pressure 122/42, pulse 91, respirations 29, and temperature 99.1. HEENT: Orally intubated. LUNGS: Bilateral rhonchi. HEART: Irregularly irregular rhythm. ABDOMEN: Soft. EXTREMITIES: Trace edema. LABORATORY DATA: Sodium 140, potassium 3.6, bicarbonate 31, BUN 84, creatinine 4.4. Albumin 1.6. Pro-natriuretic peptide is 7600. Platelet count is 64,000, white count 19. and hemoglobin 7.7. IMPRESSION: 1. Worsening anemia. 2. Acute renal failure, on hemodialysis. 3. Disseminated intravascular coagulation with thrombocytopenia. 4. Sepsis with recovering shock. 5. Acute and chronic diastolic congestive heart failure, improved. 6. Paroxysmal atrial fibrillation. PLAN: 1. Hemodialysis with ultrafiltration. 2. Antimicrobials. 3. Weaning off ventilator or decrease oxygen requirements as stable. 4. Consideration for terminal extubation versus tracheostomy. 5. Continue to avoid anti-platelet or anticoagulant therapy. 6. Antimicrobials per Infectious Disease loans consultant. 7. Consider packed red blood cell transfusion. Joss Rush M.D. DR: ERNESTO JOB#: [id number] CC:
[2017-02-25] MEDS: NovoLOG Insulin Flexpen SUBQ SCH ×4 (05:25→23:53)
[2017-02-25] MEDS: Renvela 800mg Pkt NG SCH ×3 (09:31→17:11)
[2017-02-25] MEDS: Analgesic Balm 15gm TOPIC SCH ×4 (09:32→20:58)
[2017-02-25 10:46] LABS: MEAN CORPUSCULAR HEMOGLOBIN 29.9 PG (27.0-31.0); MEAN CORPUSCULAR HGB CONC 31.3 G/DL (32.0-36.0); MEAN CORPUSCULAR VOLUME 96 FL (80-99); MEAN PLATELET VOLUME 8.7 FL (6.5-10.1); PLATELET COUNT 71 K/UL (150-450); RED BLOOD COUNT 2.67 M/UL (4.20-5.40); RED CELL DISTRIBUTION WIDTH 16.9 % (11.6-14.8); WHITE BLOOD COUNT 19.2 K/UL (4.8-10.8)
[2017-02-25 10:52] LABS: ALANINE AMINOTRANSFERASE 10 U/L (3-33); ALBUMIN/GLOBULIN RATIO 0.5 (1.0-2.7); ANION GAP 16 (5-15); ASPARTATE AMINO TRANSFERASE 26 U/L (5-40); CALCIUM 8.3 mg/dL (8.6-10.2); CARBON DIOXIDE 29 mEQ/L (20-30); CHLORIDE 92 mEQ/L (98-107); CREATININE 5.2 mg/dL (0.5-0.9); HEMOLYSIS 6; PHOSPHORUS 5.5 mg/dL (2.5-4.8); POTASSIUM 3.9 mEQ/L (3.4-4.9); SODIUM 137 mEQ/L (135-145); TOTAL PROTEIN 4.6 g/dL (6.6-8.7)
[2017-02-25 11:33] LABS: BAND NEUTROPHILS % (MANUAL) 4 % (0-8); LYMPHOCYTES % (MANUAL) 3 % (20-45); NEUTROPHILS % (MANUAL) 87 % (45-75); TOTAL CELLS COUNTED 100
[2017-02-25 11:34] LABS: ANISOCYTOSIS 1+; BASOPHILS % (MANUAL) 0 % (0-2); EOSINOPHILS % (MANUAL) 0 % (0-3); HYPOCHROMASIA 3+; PLATELET ESTIMATE DECREASED
[2017-02-25 11:35] LABS: PLATELET MORPHOLOGY NORMAL
--- NOTE | 2017-02-25 12:05 | General Progress Note ---
Assessment/Plan Status: stable Assessment/Plan Has acute respiratory distress- intubated in ICU Septic shock ( Had long talk with daughter Gali 01/19 ) - Acute renal failure and hyperKalemia - Renal failure, likely diabetic nephropathy / HTN - Sepsis , Pneumonia, Respiratory failure and Hypoxia other - h/o Cellulitis in diabetic foot right LE - Decubitus ulcer - Dementia - Diabetes mellitus - Nonpressure ulcer to level of fascia right lateral ankle - S/P ORIF right ankle Plan: intubate - ICU On hydrocortisone- Had permacath 01/30 weaning in process Adjust BP meds- Labile BP- - Clonidin PRN HD next 12/29 Transfused add phos binders monitor WBCs Monitor renal parameters and Vanco level- ARTUR Kidney done last admission- unremarkable Adjust BP meds- Avoid Nephrotoxics- discussed with CM Per orders Subjective ROS Limited/Unobtainable: Yes Allergies: Coded Allergies: MORPHINE (Verified Adverse Reaction, Severe, PARADOXICAL REACTION, 10/08/12 ) Objective Last 24 Hour Vital Signs Date Time Temp Pulse Resp B/P Pulse Ox O2 Delivery O2 Flow Rate FiO2 02/25/17 11:17 72 24 50 02/25/17 11:00 72 20 94/52 100 Mechanical Ventilator 50 02/25/17 10:00 77 21 120/54 100 Mechanical Ventilator 60 02/25/17 09:21 85 20 50 02/25/17 09:00 75 21 115/53 100 Mechanical Ventilator 60 02/25/17 08:00 98.6 76 23 114/52 100 Mechanical Ventilator 60 02/25/17 08:00 77 02/25/17 08:00 60 02/25/17 07:30 81 22 131/47 100 Mechanical Ventilator 60 02/25/17 07:08 89 20 60 02/25/17 06:00 70 19 133/53 100 Mechanical Ventilator 60 02/25/17 05:17 63 30 60 02/25/17 05:00 66 19 114/37 100 Mechanical Ventilator 60 02/25/17 04:00 80 02/25/17 04:00 60 02/25/17 04:00 98.5 77 23 106/42 99 Mechanical Ventilator 60 02/25/17 03:24 83 27 60 02/25/17 03:00 86 22 143/52 97 Mechanical Ventilator 60 02/25/17 02:00 78 22 103/44 100 Mechanical Ventilator 60 02/25/17 01:30 82 22 60 02/25/17 01:00 81 20 126/50 100 Mechanical Ventilator 60 02/25/17 00:00 98.7 82 19 108/38 100 Mechanical Ventilator 60 02/25/17 00:00 78 02/25/17 00:00 60 02/24/17 23:25 61 23 60 02/24/17 23:00 81 23 131/48 100 Mechanical Ventilator 60 02/24/17 22:00 62 24 122/34 100 Mechanical Ventilator 60 02/24/17 21:30 59 22 60 02/24/17 21:00 81 24 131/48 100 Mechanical Ventilator 60 02/24/17 21:00 58 19 106/38 99 Mechanical Ventilator 60 02/24/17 20:00 98.5 91 22 161/49 99 Mechanical Ventilator 60 02/24/17 20:00 89 02/24/17 20:00 60 02/24/17 19:30 91 23 60 02/24/17 19:00 87 22 139/43 100 Mechanical Ventilator 60 02/24/17 18:00 102 27 107/31 98 Mechanical Ventilator 60 02/24/17 17:00 95 24 119/47 96 Mechanical Ventilator 60 02/24/17 16:38 78 25 60 02/24/17 16:00 60 02/24/17 16:00 98.5 79 20 91/37 97 Mechanical Ventilator 60 02/24/17 16:00 87 02/24/17 15:00 95 22 132/93 97 Mechanical Ventilator 60 02/24/17 14:51 94 24 60 02/24/17 14:00 92 26 122/51 99 Mechanical Ventilator 60 02/24/17 13:00 95 26 138/46 97 Mechanical Ventilator 60 02/24/17 12:41 94 23 60 Intake and Output 02/24/17 02/25/17 19:00 07:00 Intake Total 500 ml 545 ml Balance 500 ml 545 ml Free Water 30 ml 20 ml IV Total 110 ml Tube Feeding 420 ml 385 ml Other 50 ml 30 ml # Bowel Movements 3 4 Laboratory Tests 02/25/17 10:00: White Blood Count 19.2H, Red Blood Count 2.67L, Hemoglobin 8.0L, Hematocrit 25.6L, Mean Corpuscular Volume 96, Mean Corpuscular Hemoglobin 29.9, Mean Corpuscular Hemoglobin Concent 31.3L, Red Cell Distribution Width 16.9H, Platelet Count 71L, Mean Platelet Volume 8.7, Neutrophils (%) (Auto) , Lymphocytes (%) (Auto) , Monocytes (%) (Auto) , Eosinophils (%) (Auto) , Basophils (%) (Auto) , Differential Total Cells Counted 100, Neutrophils % ( Manual) 87H, Lymphocytes % (Manual) 3L, Monocytes % (Manual) 6, Eosinophils % ( Manual) 0, Basophils % (Manual) 0, Band Neutrophils 4, Platelet Estimate DecreasedL, Platelet Morphology Normal, Hypochromasia 3+, Anisocytosis 1+, Sodium Level 137, Potassium Level 3.9, Chloride Level 92L, Carbon Dioxide Level 29, Anion Gap 16H, Blood Urea Nitrogen 103H, Creatinine 5.2H, Estimat Glomerular Filtration Rate , Glucose Level 147H, Calcium Level 8.3L, Phosphorus Level 5.5H, Total Bilirubin 0.3, Aspartate Amino Transf (AST/SGOT) 26, Alanine Aminotransferase (ALT/SGPT) 10, Alkaline Phosphatase 168H, Pro-B-Type Natriuretic Peptide 19765T, Total Protein 4.6L, Albumin 1.7L, Globulin 2.9, Albumin/Globulin Ratio 0.5L Height (Feet): 5 Height (Inches): 1.00 Weight (Pounds): 200 General Appearance: no apparent distress Objective other PE not changed BERTRAM CASTAÑEDA Feb 25, 2017 12:05
--- NOTE | 2017-02-25 13:36 | Critical Care Progress Note ---
Assessment/Plan Assessment/Plan hypoxemia respiratory failure respiratory acidosis pulmonary infiltrates thrombocytopenia renal failure ALOC chronic encephalopathy septic shock leukocytosis pulmonary infiltrates ARDS DIC likely s/p transfusion atrial fibrillation hypotension PLAN terminal extubation off steroids at present follow up labs and adjust follow up labs monitor off pressors monitor renal function; on HD per renal blood pressure controlled antibiotics noted o2 needs slightly better monitor for any change in rhythm follow up ABG and CXR intermittently prognosis remains poor; per son, will extubate in am and if in distress, will give morphine; if tolerated, will continue care including HD medications/laboratory data/nursing notes/ICU care reviewed in detail note reviewed and edited care discussed with RN and RT ICU time spent 38 minutes Critical Care - Subjective Interval Events: d/w son plan to take off the ventilator off in am continue same but if any distress, will proceed with morphine ROS Limited/Unobtainable: Yes Condition: critical EKG Rhythm: Sinus Rhythm Residuals: minimal Tube Feeding Tolerated: yes I&O: Intake and Output 02/24/17 02/25/17 19:00 07:00 Intake Total 500 ml 545 ml Balance 500 ml 545 ml Free Water 30 ml 20 ml IV Total 110 ml Tube Feeding 420 ml 385 ml Other 50 ml 30 ml # Bowel Movements 3 4 Critical Care - Objective ET-Tube: 7.0 ET Position: 22 Last 24 Hour Vital Signs Date Time Temp Pulse Resp B/P Pulse Ox O2 Delivery O2 Flow Rate FiO2 02/25/17 13:03 72 20 110/52 100 Mechanical Ventilator 50 02/25/17 12:43 65 26 50 02/25/17 12:00 50 02/25/17 12:00 78 02/25/17 12:00 98.0 78 20 125/54 100 Mechanical Ventilator 50 02/25/17 11:17 72 24 50 02/25/17 11:00 72 20 94/52 100 Mechanical Ventilator 50 02/25/17 10:00 77 21 120/54 100 Mechanical Ventilator 60 02/25/17 10:00 50 02/25/17 09:21 85 20 50 02/25/17 09:00 75 21 115/53 100 Mechanical Ventilator 60 02/25/17 08:00 98.6 76 23 114/52 100 Mechanical Ventilator 60 02/25/17 08:00 77 02/25/17 08:00 60 02/25/17 07:30 81 22 131/47 100 Mechanical Ventilator 60 02/25/17 07:08 89 20 60 02/25/17 06:00 70 19 133/53 100 Mechanical Ventilator 60 02/25/17 05:17 63 30 60 02/25/17 05:00 66 19 114/37 100 Mechanical Ventilator 60 02/25/17 04:00 80 02/25/17 04:00 60 02/25/17 04:00 98.5 77 23 106/42 99 Mechanical Ventilator 60 02/25/17 03:24 83 27 60 02/25/17 03:00 86 22 143/52 97 Mechanical Ventilator 60 02/25/17 02:00 78 22 103/44 100 Mechanical Ventilator 60 02/25/17 01:30 82 22 60 02/25/17 01:00 81 20 126/50 100 Mechanical Ventilator 60 02/25/17 00:00 98.7 82 19 108/38 100 Mechanical Ventilator 60 02/25/17 00:00 78 02/25/17 00:00 60 02/24/17 23:25 61 23 60 02/24/17 23:00 81 23 131/48 100 Mechanical Ventilator 60 02/24/17 22:00 62 24 122/34 100 Mechanical Ventilator 60 02/24/17 21:30 59 22 60 02/24/17 21:00 81 24 131/48 100 Mechanical Ventilator 60 02/24/17 21:00 58 19 106/38 99 Mechanical Ventilator 60 02/24/17 20:00 98.5 91 22 161/49 99 Mechanical Ventilator 60 02/24/17 20:00 89 02/24/17 20:00 60 02/24/17 19:30 91 23 60 02/24/17 19:00 87 22 139/43 100 Mechanical Ventilator 60 02/24/17 18:00 102 27 107/31 98 Mechanical Ventilator 60 02/24/17 17:00 95 24 119/47 96 Mechanical Ventilator 60 02/24/17 16:38 78 25 60 02/24/17 16:00 60 02/24/17 16:00 98.5 79 20 91/37 97 Mechanical Ventilator 60 02/24/17 16:00 87 02/24/17 15:00 95 22 132/93 97 Mechanical Ventilator 60 02/24/17 14:51 94 24 60 02/24/17 14:00 92 26 122/51 99 Mechanical Ventilator 60 Labs: Labs Test 02/23/17 06:15 02/24/17 04:10 02/25/17 10:00 White Blood Count 18.8 K/UL (4.8-10.8) 19.0 K/UL (4.8-10.8) 19.2 K/UL (4.8-10.8) Red Blood Count 2.91 M/UL (4.20-5.40) 2.49 M/UL (4.20-5.40) 2.67 M/UL (4.20-5.40) Hemoglobin 8.9 G/DL (12.0-16.0) 7.7 G/DL (12.0-16.0) 8.0 G/DL (12.0-16.0) Hematocrit 28.0 % (37.0-47.0) 23.9 % (37.0-47.0) 25.6 % (37.0-47.0) Mean Corpuscular Volume 96 FL (80-99) 96 FL (80-99) 96 FL (80-99) Mean Corpuscular Hemoglobin 30.6 PG (27.0-31.0) 30.9 PG (27.0-31.0) 29.9 PG (27.0-31.0) Mean Corpuscular Hemoglobin Concent 31.7 G/DL (32.0-36.0) 32.1 G/DL (32.0-36.0) 31.3 G/DL (32.0-36.0) Red Cell Distribution Width 17.6 % (11.6-14.8) 17.3 % (11.6-14.8) 16.9 % (11.6-14.8) Platelet Count 90 K/UL (150-450) 64 K/UL (150-450) 71 K/UL (150-450) Mean Platelet Volume 7.2 FL (6.5-10.1) 9.0 FL (6.5-10.1) 8.7 FL (6.5-10.1) Neutrophils (%) (Auto) % (45.0-75.0) % (45.0-75.0) % (45.0-75.0) Lymphocytes (%) (Auto) % (20.0-45.0) % (20.0-45.0) % (20.0-45.0) Monocytes (%) (Auto) % (1.0-10.0) % (1.0-10.0) % (1.0-10.0) Eosinophils (%) (Auto) % (0.0-3.0) % (0.0-3.0) % (0.0-3.0) Basophils (%) (Auto) % (0.0-2.0) % (0.0-2.0) % (0.0-2.0) Differential Total Cells Counted 100 100 100 Neutrophils % (Manual) 94 % (45-75) 92 % (45-75) 87 % (45-75) Lymphocytes % (Manual) 2 % (20-45) 3 % (20-45) 3 % (20-45) Monocytes % (Manual) 1 % (1-10) 4 % (1-10) 6 % (1-10) Eosinophils % (Manual) 3 % (0-3) 0 % (0-3) 0 % (0-3) Basophils % (Manual) 0 % (0-2) 0 % (0-2) 0 % (0-2) Band Neutrophils 0 % (0-8) 1 % (0-8) 4 % (0-8) Platelet Estimate Decreased Decreased Decreased Platelet Morphology Normal Normal Normal Hypochromasia 1+ 3+ 3+ Anisocytosis 1+ 1+ 1+ Sodium Level 141 mEQ/L (135-145) 140 mEQ/L (135-145) 137 mEQ/L (135-145) Potassium Level 3.2 mEQ/L (3.4-4.9) 3.6 mEQ/L (3.4-4.9) 3.9 mEQ/L (3.4-4.9) Chloride Level 95 mEQ/L (98-107) 95 mEQ/L (98-107) 92 mEQ/L (98-107) Carbon Dioxide Level 31 mEQ/L (20-30) 31 mEQ/L (20-30) 29 mEQ/L (20-30) Anion Gap 15 (5-15) 14 (5-15) 16 (5-15) Blood Urea Nitrogen 92 mg/dL (7-23) 84 mg/dL (7-23) 103 mg/dL (7-23) Creatinine 4.5 mg/dL (0.5-0.9) 4.4 mg/dL (0.5-0.9) 5.2 mg/dL (0.5-0.9) Estimat Glomerular Filtration Rate mL/min (>60) mL/min (>60) mL/min (>60) Glucose Level 211 mg/dL (74-106) 163 mg/dL (74-106) 147 mg/dL (74-106) Calcium Level 7.6 mg/dL (8.6-10.2) 7.6 mg/dL (8.6-10.2) 8.3 mg/dL (8.6-10.2) Spherocytes 1+ Uric Acid 5.7 mg/dL (3.0-7.5) Phosphorus Level 3.9 mg/dL (2.5-4.8) 5.5 mg/dL (2.5-4.8) Magnesium Level 2.0 mg/dL (1.7-2.5) Total Bilirubin 0.3 mg/dL (0.0-1.2) 0.3 mg/dL (0.0-1.2) Aspartate Amino Transf (AST/SGOT) 18 U/L (5-40) 26 U/L (5-40) Alanine Aminotransferase (ALT/SGPT) 9 U/L (3-33) 10 U/L (3-33) Alkaline Phosphatase 155 U/L (35-104) 168 U/L (35-104) C-Reactive Protein, Quantitative 18.2 mg/dL (< 0.5) Pro-B-Type Natriuretic Peptide 7630 pg/mL (0-450) 54212 pg/mL (0-450) Total Protein 4.0 g/dL (6.6-8.7) 4.6 g/dL (6.6-8.7) Albumin 1.6 g/dL (3.5-5.2) 1.7 g/dL (3.5-5.2) Globulin 2.4 g/dL 2.9 g/dL Albumin/Globulin Ratio 0.6 (1.0-2.7) 0.5 (1.0-2.7) Objective: WDWN chronically ill appearing; on the ventilator arouseable NAD coarse breath sounds bilaterally with scattered rhonchi but no wheeze orally intubated at present S1S2 RRR without MRG; rate controlled NABS nontender no HSM; feeding tube in place; no distention no CC; mild edema without change nonfocal LOC without change skin noted and examined arouseable reviewed and edited Accucheck: 179 FELIPE PATHAK Feb 25, 2017 13:36
--- NOTE | 2017-02-25 14:56 | Infectious Diseases Prog Note ---
Assessment/Plan Assessment/Plan ASSESSMENT: 76 y/o female with: // Probable UTI - UCx(-) // Hypoxia, possible HCAP Scx: ESBL Kleb SPRx - CXR 02/02 : Extensive bilateral interstitial and airspace opacities, unchanged // h/o CoNS bacteremia 11/05 ( 01/09 ) ?real ( PICC tip+ ) vs contaminant r/o recurrence/persistence - surveillance BCx(-) // h/o right ankle cellulitis / osteomyelitis / hardware infection SP incomplete Rx ( recommended to complete 6 weeks IV daptomycin, cefepime ( end ), but daughter apparently declined at last discharge per documentation ) - SP hardware removal 12/15 - no culture sent - 3P bone scan: 3 phase increased activity in region of distal aspect of right fibula compatible with hardware loosening and/or osteomyelitis - XR: surgical hardware seen reducing old healed distal fibular and medial malleolar fractures. No acute fractures. No dislocations. Bones are demineralized. - elevated ESR, CRP - h/o right ankle ORIF // Probable sepsis,SP // Leukocytosis , not improving ( SP sternoids stopped 02/23 ) did not improved with prolong course of AB Rx // Diarrhea C-Diff Neg // ..US abd :neg of infectious process // VDRF intubated 02/07 // ARF on CKD --> IHD per renal SP placement of tunneled right jugular hemodialysis catheter. 01/29 // Dementia // DM2 - HbA1c 6.1% // h/o CAD - trop(-) x1 // [facility] resident // VRE colonized // No ABX allergies // Full Code PLAN: - DC Mycamine d# 6 and monitor pt off of AB Rx ( 02/20 SP DC Merrem d# 14 /14 ) ( 02/07 SP DC Teflaro d# 10 ) ( 01/28 SP IV cefepime d# 10 IV Vanco d# 2 ) - monitor CBC, temperatures - monitor BMP - monitor CXR - respiratory support prn - DNR poor prognosis , weaning , possible terminal extubation tomorrow , Subjective Constitutional: Denies: anorexia, chills, drenching sweats, fatigue, fever, no symptoms, other Allergies: Coded Allergies: MORPHINE (Verified Adverse Reaction, Severe, PARADOXICAL REACTION, 10/08/12 ) Subjective weaning , possible terminal extubation tomorrow , on vent Objective Vital Signs Last 24 Hour Vital Signs Date Time Temp Pulse Resp B/P Pulse Ox O2 Delivery O2 Flow Rate FiO2 02/25/17 14:00 92 22 137/54 100 Mechanical Ventilator 50 02/25/17 13:03 72 20 110/52 100 Mechanical Ventilator 50 02/25/17 12:43 65 26 50 02/25/17 12:00 50 02/25/17 12:00 78 02/25/17 12:00 98.0 78 20 125/54 100 Mechanical Ventilator 50 02/25/17 11:17 72 24 50 02/25/17 11:00 72 20 94/52 100 Mechanical Ventilator 50 02/25/17 10:00 77 21 120/54 100 Mechanical Ventilator 60 02/25/17 10:00 50 02/25/17 09:21 85 20 50 02/25/17 09:00 75 21 115/53 100 Mechanical Ventilator 60 02/25/17 08:00 98.6 76 23 114/52 100 Mechanical Ventilator 60 02/25/17 08:00 77 02/25/17 08:00 60 02/25/17 07:30 81 22 131/47 100 Mechanical Ventilator 60 02/25/17 07:08 89 20 60 02/25/17 06:00 70 19 133/53 100 Mechanical Ventilator 60 02/25/17 05:17 63 30 60 02/25/17 05:00 66 19 114/37 100 Mechanical Ventilator 60 02/25/17 04:00 80 02/25/17 04:00 60 02/25/17 04:00 98.5 77 23 106/42 99 Mechanical Ventilator 60 02/25/17 03:24 83 27 60 02/25/17 03:00 86 22 143/52 97 Mechanical Ventilator 60 02/25/17 02:00 78 22 103/44 100 Mechanical Ventilator 60 02/25/17 01:30 82 22 60 02/25/17 01:00 81 20 126/50 100 Mechanical Ventilator 60 02/25/17 00:00 98.7 82 19 108/38 100 Mechanical Ventilator 60 02/25/17 00:00 78 02/25/17 00:00 60 02/24/17 23:25 61 23 60 02/24/17 23:00 81 23 131/48 100 Mechanical Ventilator 60 02/24/17 22:00 62 24 122/34 100 Mechanical Ventilator 60 02/24/17 21:30 59 22 60 02/24/17 21:00 81 24 131/48 100 Mechanical Ventilator 60 02/24/17 21:00 58 19 106/38 99 Mechanical Ventilator 60 02/24/17 20:00 98.5 91 22 161/49 99 Mechanical Ventilator 60 02/24/17 20:00 89 02/24/17 20:00 60 02/24/17 19:30 91 23 60 02/24/17 19:00 87 22 139/43 100 Mechanical Ventilator 60 02/24/17 18:00 102 27 107/31 98 Mechanical Ventilator 60 02/24/17 17:00 95 24 119/47 96 Mechanical Ventilator 60 02/24/17 16:38 78 25 60 02/24/17 16:00 60 02/24/17 16:00 98.5 79 20 91/37 97 Mechanical Ventilator 60 02/24/17 16:00 87 02/24/17 15:00 95 22 132/93 97 Mechanical Ventilator 60 Height (Feet): 5 Height (Inches): 1.00 Weight (Pounds): 200 HEENT: anicteric Respiratory/Chest: no accessory muscle use Cardiovascular: no gallop/murmur Abdomen: no mass Extremities: no cyanosis Laboratory Tests Test 02/25/17 10:00 White Blood Count 19.2 K/UL (4.8-10.8) H Red Blood Count 2.67 M/UL (4.20-5.40) L Hemoglobin 8.0 G/DL (12.0-16.0) L Hematocrit 25.6 % (37.0-47.0) L Mean Corpuscular Volume 96 FL (80-99) Mean Corpuscular Hemoglobin 29.9 PG (27.0-31.0) Mean Corpuscular Hemoglobin Concent 31.3 G/DL (32.0-36.0) L Red Cell Distribution Width 16.9 % (11.6-14.8) H Platelet Count 71 K/UL (150-450) L Mean Platelet Volume 8.7 FL (6.5-10.1) Neutrophils (%) (Auto) % (45.0-75.0) Lymphocytes (%) (Auto) % (20.0-45.0) Monocytes (%) (Auto) % (1.0-10.0) Eosinophils (%) (Auto) % (0.0-3.0) Basophils (%) (Auto) % (0.0-2.0) Differential Total Cells Counted 100 Neutrophils % (Manual) 87 % (45-75) H Lymphocytes % (Manual) 3 % (20-45) L Monocytes % (Manual) 6 % (1-10) Eosinophils % (Manual) 0 % (0-3) Basophils % (Manual) 0 % (0-2) Band Neutrophils 4 % (0-8) Platelet Estimate Decreased L Platelet Morphology Normal Hypochromasia 3+ Anisocytosis 1+ Sodium Level 137 mEQ/L (135-145) Potassium Level 3.9 mEQ/L (3.4-4.9) Chloride Level 92 mEQ/L (98-107) L Carbon Dioxide Level 29 mEQ/L (20-30) Anion Gap 16 (5-15) H Blood Urea Nitrogen 103 mg/dL (7-23) H Creatinine 5.2 mg/dL (0.5-0.9) H Estimat Glomerular Filtration Rate mL/min (>60) Glucose Level 147 mg/dL (74-106) H Calcium Level 8.3 mg/dL (8.6-10.2) L Phosphorus Level 5.5 mg/dL (2.5-4.8) H Total Bilirubin 0.3 mg/dL (0.0-1.2) Aspartate Amino Transf (AST/SGOT) 26 U/L (5-40) Alanine Aminotransferase (ALT/SGPT) 10 U/L (3-33) Alkaline Phosphatase 168 U/L (35-104) H Pro-B-Type Natriuretic Peptide 38402 pg/mL (0-450) H Total Protein 4.6 g/dL (6.6-8.7) L Albumin 1.7 g/dL (3.5-5.2) L Globulin 2.9 g/dL Albumin/Globulin Ratio 0.5 (1.0-2.7) L Current Medications Medications (Trade) Dose Ordered Sig/Rina Route PRN Reason Start Time Stop Time Status Last Admin Dose Admin Acetaminophen (Tylenol) 650 mg Q6H PRN ORAL Mild Pain/Temp > 100.5 02/07/17 17:00 03/09/17 16:59 Albuterol/ Ipratropium (DuoNeb 0.5-3(2.5)mg/3ml) 3 ml Q2H PRN HHN Shortness of Breath 02/20/17 23:30 02/25/17 23:29 02/23/17 01:00 Dextrose (Dextrose 50%) STAT PRN IV Hypoglycemia 02/07/17 17:00 03/09/17 16:59 Insulin Aspart (NovoLOG) Q6HR SUBQ 02/07/17 18:00 03/09/17 17:59 02/25/17 11:58 Lansoprazole (Prevacid) 30 mg Q12HR GT 02/24/17 21:00 03/26/17 20:59 02/25/17 09:31 Menthol/Methyl Salicylate (Bengay) 1 applic FOUR TIMES A DAY TOPIC 02/07/17 18:00 03/09/17 17:59 02/25/17 14:10 Micafungin Sodium/ Sodium Chloride (Mycamine/Sodium Chloride) 110 ml @ 110 mls/hr Q24H IVPB 02/20/17 21:00 02/27/17 20:59 02/24/17 20:32 Ondansetron HCl (Zofran) 4 mg Q6H PRN IVP Nausea & Vomiting 02/07/17 17:00 03/09/17 16:59 02/11/17 10:59 Polyethylene Glycol (Miralax) 17 gm DAILYPRN PRN GT Constipation 02/07/17 17:00 03/09/17 16:59 Sevelamer Carbonate 1600 mg 1,600 mg THREE TIMES A DAY NG 02/17/17 13:00 03/19/17 12:59 02/25/17 14:10 GISELLA JEROME M.D. Feb 25, 2017 14:56
[2017-02-25] MEDS ORDERED: NS 275ml ONE (16:34)
[2017-02-25] MEDS ORDERED: Tubing IV Secondary IV ONE (16:34)
[2017-02-25] MEDS ORDERED: 1/2 NS 1000ml IV ONE (16:53)
--- NOTE | 2017-02-25 19:29 | General Progress Note ---
Assessment/Plan Assessment/Plan Assessment - TF intolerance - resolved - DM - CAD - Resp failure - on weaning trials - leukocytosis and thrombocytopenia - anemia - lung mass - Azotemia Recommendations - abx - monitor residuals - elevate HOB - supportive care Subjective Allergies: Coded Allergies: MORPHINE (Verified Adverse Reaction, Severe, PARADOXICAL REACTION, 10/08/12 ) Subjective intubated TF tolerated well no events overnight (+) BM d/w RN Objective Last 24 Hour Vital Signs Date Time Temp Pulse Resp B/P Pulse Ox O2 Delivery O2 Flow Rate FiO2 02/25/17 19:16 77 23 50 02/25/17 18:06 75 21 123/53 100 Mechanical Ventilator 50 02/25/17 17:07 80 21 50 02/25/17 17:00 84 21 125/58 100 Mechanical Ventilator 50 02/25/17 16:00 97.8 85 22 122/54 100 Mechanical Ventilator 50 02/25/17 16:00 50 02/25/17 16:00 92 02/25/17 15:00 82 21 130/54 100 Mechanical Ventilator 50 02/25/17 14:57 90 22 50 02/25/17 14:00 92 22 137/54 100 Mechanical Ventilator 50 02/25/17 13:03 72 20 110/52 100 Mechanical Ventilator 50 02/25/17 12:43 65 26 50 02/25/17 12:00 50 02/25/17 12:00 78 02/25/17 12:00 98.0 78 20 125/54 100 Mechanical Ventilator 50 02/25/17 11:17 72 24 50 02/25/17 11:00 72 20 94/52 100 Mechanical Ventilator 50 02/25/17 10:00 77 21 120/54 100 Mechanical Ventilator 60 02/25/17 10:00 50 02/25/17 09:21 85 20 50 02/25/17 09:00 75 21 115/53 100 Mechanical Ventilator 60 02/25/17 08:00 98.6 76 23 114/52 100 Mechanical Ventilator 60 02/25/17 08:00 77 02/25/17 08:00 60 02/25/17 07:30 81 22 131/47 100 Mechanical Ventilator 60 02/25/17 07:08 89 20 60 02/25/17 06:00 70 19 133/53 100 Mechanical Ventilator 60 02/25/17 05:17 63 30 60 02/25/17 05:00 66 19 114/37 100 Mechanical Ventilator 60 02/25/17 04:00 80 02/25/17 04:00 60 02/25/17 04:00 98.5 77 23 106/42 99 Mechanical Ventilator 60 02/25/17 03:24 83 27 60 02/25/17 03:00 86 22 143/52 97 Mechanical Ventilator 60 02/25/17 02:00 78 22 103/44 100 Mechanical Ventilator 60 02/25/17 01:30 82 22 60 02/25/17 01:00 81 20 126/50 100 Mechanical Ventilator 60 02/25/17 00:00 98.7 82 19 108/38 100 Mechanical Ventilator 60 02/25/17 00:00 78 02/25/17 00:00 60 02/24/17 23:25 61 23 60 02/24/17 23:00 81 23 131/48 100 Mechanical Ventilator 60 02/24/17 22:00 62 24 122/34 100 Mechanical Ventilator 60 02/24/17 21:30 59 22 60 02/24/17 21:00 81 24 131/48 100 Mechanical Ventilator 60 02/24/17 21:00 58 19 106/38 99 Mechanical Ventilator 60 02/24/17 20:00 98.5 91 22 161/49 99 Mechanical Ventilator 60 02/24/17 20:00 89 02/24/17 20:00 60 02/24/17 19:30 91 23 60 Intake and Output 02/24/17 02/25/17 19:00 07:00 Intake Total 500 ml 545 ml Balance 500 ml 545 ml Free Water 30 ml 20 ml IV Total 110 ml Tube Feeding 420 ml 385 ml Other 50 ml 30 ml # Bowel Movements 3 4 Laboratory Tests 02/25/17 10:00: White Blood Count 19.2H, Red Blood Count 2.67L, Hemoglobin 8.0L, Hematocrit 25.6L, Mean Corpuscular Volume 96, Mean Corpuscular Hemoglobin 29.9, Mean Corpuscular Hemoglobin Concent 31.3L, Red Cell Distribution Width 16.9H, Platelet Count 71L, Mean Platelet Volume 8.7, Neutrophils (%) (Auto) , Lymphocytes (%) (Auto) , Monocytes (%) (Auto) , Eosinophils (%) (Auto) , Basophils (%) (Auto) , Differential Total Cells Counted 100, Neutrophils % ( Manual) 87H, Lymphocytes % (Manual) 3L, Monocytes % (Manual) 6, Eosinophils % ( Manual) 0, Basophils % (Manual) 0, Band Neutrophils 4, Platelet Estimate DecreasedL, Platelet Morphology Normal, Hypochromasia 3+, Anisocytosis 1+, Sodium Level 137, Potassium Level 3.9, Chloride Level 92L, Carbon Dioxide Level 29, Anion Gap 16H, Blood Urea Nitrogen 103H, Creatinine 5.2H, Estimat Glomerular Filtration Rate , Glucose Level 147H, Calcium Level 8.3L, Phosphorus Level 5.5H, Total Bilirubin 0.3, Aspartate Amino Transf (AST/SGOT) 26, Alanine Aminotransferase (ALT/SGPT) 10, Alkaline Phosphatase 168H, Pro-B-Type Natriuretic Peptide 63097T, Total Protein 4.6L, Albumin 1.7L, Globulin 2.9, Albumin/Globulin Ratio 0.5L Height (Feet): 5 Height (Inches): 1.00 Weight (Pounds): 200 Objective WDWN NCAT supple CTA RRR soft ND NT no edema ARLIN LONGORIA Feb 25, 2017 19:29
--- NOTE | 2017-02-25 22:28 | Wound Care Consultation ---
Wound Assessment Wound Assessment : Wound Present on Admission: No New Wound: No Status Change of Wound: Yes Wound Location Body Site Modif: mid Wound Location Body Site: sacral Wound Type: pressure ulcer Ewelina Test: Does not Ewelina Pressure Ulcer Stage: deep tissue injury - revealed as scattered stage II pressure ulcers Wound Thickness: Partial Thickness Wound Length: 3.0 Wound Width: 2.5 Wound Depth: utd Percent of Wound Purple/Maroon: 100 Wound Drainage Description: Serosanguineous Wound Drainage Amount: Scant Wound Drainage Odor: None/Absent Tissue Surrounding Wound: Erythemic Wound General Appearance: Reddened Wound Comment #1 Left top of the ear stage I. skin still intact #2 Right top of he ear stage I. Skin still intact #3 Sacral DTI revealed as scattered stage II pressure ulcers Recommendation -Sacral stage II pressure ulcers Cleanse with saline, pat dry, apply Triad cream, cover with Biatain silicone daily and PRN soiled/dislodged -Turn and reposition -Keep clean and dry -Optimize nutrition -Low air loss mattress -Assess and f/u accordingly KUN SON RN Feb 25, 2017 22:28
--- NOTE | 2017-02-25 22:46 | General Progress Note ---
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 bilateral right greater than left pleural effusions and mediastinal lymphadenopathy - she is a poor candidate for biopsy and has a poor prognosis # Anemia 2/2 chronic disease - s/p multiple units of blood # Leukocytosis - counts increasing, related to sepsis and underlying infection, is on antibiotics # Respiratory failure s/p intubation # Respiratory acidosis # Renal failure- pt on HD # ALOC # Sepsis Recs: - Continue to monitor counts - Terminal extubation - Weaning ventilator - Transfuse to hgb goal >7, plt goal >20k if bleeding --> conservative management - Give PRBC during HD to hgb<7 - She is off heparin, plavix, aspirin, levo, steroids - Agree to administer FFP if INR >2 - Does not require a biopsy as has poor prognosis and poor outcome at this time - OG feeds at maximal rate - Appreciate consultation! continue to follow Subjective ROS Limited/Unobtainable: Yes Constitutional: Reports: no symptoms HEENT: Reports: no symptoms Cardiovascular: Reports: no symptoms Respiratory: Reports: no symptoms Gastrointestinal/Abdominal: Reports: no symptoms Genitourinary: Reports: no symptoms 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: Reports: no symptoms Endocrine: Reports: no symptoms Hematologic/Lymphatic: Reports: anemia Allergies: Coded Allergies: MORPHINE (Verified Adverse Reaction, Severe, PARADOXICAL REACTION, 10/08/12 ) Subjective weaning vent, term extubation tomorrow Objective Last 24 Hour Vital Signs Date Time Temp Pulse Resp B/P Pulse Ox O2 Delivery O2 Flow Rate FiO2 02/25/17 22:00 79 21 149/52 100 Mechanical Ventilator 50 02/25/17 21:19 80 26 50 02/25/17 21:00 79 23 147/55 100 Mechanical Ventilator 50 02/25/17 20:00 77 02/25/17 20:00 50 02/25/17 20:00 97.8 77 22 147/55 100 Mechanical Ventilator 50 02/25/17 19:16 77 23 50 02/25/17 19:00 7 22 145/53 100 Mechanical Ventilator 50 02/25/17 18:06 75 21 123/53 100 Mechanical Ventilator 50 02/25/17 17:07 80 21 50 02/25/17 17:00 84 21 125/58 100 Mechanical Ventilator 50 02/25/17 16:00 97.8 85 22 122/54 100 Mechanical Ventilator 50 02/25/17 16:00 50 02/25/17 16:00 92 02/25/17 15:00 82 21 130/54 100 Mechanical Ventilator 50 02/25/17 14:57 90 22 50 02/25/17 14:00 92 22 137/54 100 Mechanical Ventilator 50 02/25/17 13:03 72 20 110/52 100 Mechanical Ventilator 50 02/25/17 12:43 65 26 50 02/25/17 12:00 50 02/25/17 12:00 78 02/25/17 12:00 98.0 78 20 125/54 100 Mechanical Ventilator 50 02/25/17 11:17 72 24 50 02/25/17 11:00 72 20 94/52 100 Mechanical Ventilator 50 02/25/17 10:00 77 21 120/54 100 Mechanical Ventilator 60 02/25/17 10:00 50 02/25/17 09:21 85 20 50 02/25/17 09:00 75 21 115/53 100 Mechanical Ventilator 60 02/25/17 08:00 98.6 76 23 114/52 100 Mechanical Ventilator 60 02/25/17 08:00 77 02/25/17 08:00 60 02/25/17 07:30 81 22 131/47 100 Mechanical Ventilator 60 02/25/17 07:08 89 20 60 02/25/17 06:00 70 19 133/53 100 Mechanical Ventilator 60 02/25/17 05:17 63 30 60 02/25/17 05:00 66 19 114/37 100 Mechanical Ventilator 60 02/25/17 04:00 80 02/25/17 04:00 60 02/25/17 04:00 98.5 77 23 106/42 99 Mechanical Ventilator 60 02/25/17 03:24 83 27 60 02/25/17 03:00 86 22 143/52 97 Mechanical Ventilator 60 02/25/17 02:00 78 22 103/44 100 Mechanical Ventilator 60 02/25/17 01:30 82 22 60 02/25/17 01:00 81 20 126/50 100 Mechanical Ventilator 60 02/25/17 00:00 98.7 82 19 108/38 100 Mechanical Ventilator 60 02/25/17 00:00 78 4/26/17 00:00 60 02/24/17 23:25 61 23 60 02/24/17 23:00 81 23 131/48 100 Mechanical Ventilator 60 Intake and Output 02/24/17 02/25/17 19:00 07:00 Intake Total 500 ml 545 ml Balance 500 ml 545 ml Free Water 30 ml 20 ml IV Total 110 ml Tube Feeding 420 ml 385 ml Other 50 ml 30 ml # Bowel Movements 3 4 Laboratory Tests 02/25/17 10:00: White Blood Count 19.2H, Red Blood Count 2.67L, Hemoglobin 8.0L, Hematocrit 25.6L, Mean Corpuscular Volume 96, Mean Corpuscular Hemoglobin 29.9, Mean Corpuscular Hemoglobin Concent 31.3L, Red Cell Distribution Width 16.9H, Platelet Count 71L, Mean Platelet Volume 8.7, Neutrophils (%) (Auto) , Lymphocytes (%) (Auto) , Monocytes (%) (Auto) , Eosinophils (%) (Auto) , Basophils (%) (Auto) , Differential Total Cells Counted 100, Neutrophils % ( Manual) 87H, Lymphocytes % (Manual) 3L, Monocytes % (Manual) 6, Eosinophils % ( Manual) 0, Basophils % (Manual) 0, Band Neutrophils 4, Platelet Estimate DecreasedL, Platelet Morphology Normal, Hypochromasia 3+, Anisocytosis 1+, Sodium Level 137, Potassium Level 3.9, Chloride Level 92L, Carbon Dioxide Level 29, Anion Gap 16H, Blood Urea Nitrogen 103H, Creatinine 5.2H, Estimat Glomerular Filtration Rate , Glucose Level 147H, Calcium Level 8.3L, Phosphorus Level 5.5H, Total Bilirubin 0.3, Aspartate Amino Transf (AST/SGOT) 26, Alanine Aminotransferase (ALT/SGPT) 10, Alkaline Phosphatase 168H, Pro-B-Type Natriuretic Peptide 07519V, Total Protein 4.6L, Albumin 1.7L, Globulin 2.9, Albumin/Globulin Ratio 0.5L Height (Feet): 5 Height (Inches): 1.00 Weight (Pounds): 200 General Appearance: WD/WN EENT: PERRL/EOMI Neck: non-tender Cardiovascular: normal peripheral pulses Respiratory/Chest: chest wall non-tender Abdomen: normal bowel sounds Extremities: normal range of motion Edema: no edema noted Leg (L), no edema noted Leg (R), no edema noted Pedal (L) , no edema noted Pedal (R), no edema noted Generalized Neurologic: unresponsive Skin: warm/dry Mariano Ortiz Feb 25, 2017 22:46
[2017-02-26] VITALS (25 sets, daily range): BP systolic 56–157; BP diastolic 4–58
--- NOTE | 2017-02-26 02:17 | Progress Note ---
DATE: 02/25/2017 CARDIOLOGY PROGRESS NOTE SUBJECTIVE: The patient remains on ventilator support. Poorly responsive. Weaning has failed. Terminal extubation is planned. OBJECTIVE: VITAL SIGNS: Blood pressure 110/52, pulse 72, and respirations 20. Monitor is atrial fibrillation. LUNGS: Bilateral breath sounds. Rhonchi. HEART: Irregularly irregular rhythm. ABDOMEN: Soft. EXTREMITIES: Dependent edema. LABORATORY DATA: White count 19.2 and hemoglobin 8. BUN 103 and creatinine 5.2. Albumin 1.7. Pro-natriuretic peptide 10,700. IMPRESSION: 1. Multiorgan system failure. 2. Status post shock due to sepsis. 3. Atrial fibrillation, rate controlled. 4. Severe protein-calorie malnutrition. 5. Failure to wean. PLAN: Continue current efforts including nutrition by feeding tube, weaning ventilator, antibiotics, and holding anti-platelet and anticoagulants due to DIC. If family members make final decision, terminal extubation will be pursued. Otherwise, current care plan is appropriately in place. Joss Rush M.D. DR: ERNESTO JOB#: [id number] CC:
[2017-02-26] MEDS: NovoLOG Insulin Flexpen SUBQ SCH ×3 (06:20→17:42)
[2017-02-26] MEDS: Renvela 800mg Pkt NG SCH ×3 (08:34→17:33)
[2017-02-26] MEDS: Analgesic Balm 15gm TOPIC SCH ×3 (08:34→17:33)
--- NOTE | 2017-02-26 09:09 | Critical Care Progress Note ---
Assessment/Plan Assessment/Plan hypoxemia respiratory failure respiratory acidosis pulmonary infiltrates thrombocytopenia renal failure ALOC chronic encephalopathy septic shock leukocytosis pulmonary infiltrates ARDS DIC likely s/p transfusion atrial fibrillation hypotension PLAN terminal extubation today off steroids at present follow up labs and adjust follow up labs for change monitor off pressors; stable at present monitor renal function; on HD per renal blood pressure controlled antibiotics noted o2 needs to monitor post extubation monitor for any change in rhythm follow up ABG and CXR intermittently prognosis remains poor; per son, will extubate now and if in distress, will give morphine; if tolerated , will continue care including HD medications/laboratory data/nursing notes/ICU care reviewed in detail note reviewed and edited care discussed with RN and RT ICU time spent 36 minutes Critical Care - Subjective Interval Events: d/w son terminal extubation assess for stability post extubation continue all measures morphine if in distress ROS Limited/Unobtainable: Yes Condition: critical EKG Rhythm: Sinus Rhythm Residuals: minimal Tube Feeding Tolerated: yes I&O: Intake and Output 02/25/17 02/26/17 19:00 07:00 Intake Total 595 ml 345 ml Balance 595 ml 345 ml Free Water 140 ml Tube Feeding 455 ml 315 ml Other 30 ml # Bowel Movements 5 2 Critical Care - Objective ET-Tube: 7.0 ET Position: 22 Last 24 Hour Vital Signs Date Time Temp Pulse Resp B/P Pulse Ox O2 Delivery O2 Flow Rate FiO2 02/26/17 08:00 98.4 85 28 105/37 96 Mechanical Ventilator 70 02/26/17 08:00 70 02/26/17 08:00 85 02/26/17 07:25 82 25 50 02/26/17 07:00 82 25 102/58 99 Mechanical Ventilator 70 02/26/17 06:00 78 20 97/40 99 Mechanical Ventilator 70 02/26/17 05:00 80 29 98/34 96 Mechanical Ventilator 50 02/26/17 04:55 78 15 50 02/26/17 04:00 78 02/26/17 04:00 50 02/26/17 04:00 97.9 78 22 93/45 100 Mechanical Ventilator 50 02/26/17 03:26 97 31 50 02/26/17 03:00 94 29 133/47 96 Mechanical Ventilator 50 02/26/17 02:00 95 28 145/40 95 Mechanical Ventilator 50 02/26/17 01:20 102 27 50 02/26/17 01:00 82 21 124/44 98 Mechanical Ventilator 50 02/26/17 00:00 97.6 77 22 157/53 100 Mechanical Ventilator 50 02/26/17 00:00 50 02/26/17 00:00 86 02/25/17 23:16 80 23 50 02/25/17 23:00 85 20 148/47 100 Mechanical Ventilator 50 02/25/17 22:00 79 21 149/52 100 Mechanical Ventilator 50 02/25/17 21:19 80 26 50 02/25/17 21:00 79 23 147/55 100 Mechanical Ventilator 50 02/25/17 20:00 77 02/25/17 20:00 50 02/25/17 20:00 97.8 77 22 147/55 100 Mechanical Ventilator 50 02/25/17 19:16 77 23 50 02/25/17 19:00 7 22 145/53 100 Mechanical Ventilator 50 02/25/17 18:06 75 21 123/53 100 Mechanical Ventilator 50 02/25/17 17:07 80 21 50 02/25/17 17:00 84 21 125/58 100 Mechanical Ventilator 50 02/25/17 16:00 97.8 85 22 122/54 100 Mechanical Ventilator 50 02/25/17 16:00 50 02/25/17 16:00 92 02/25/17 15:00 82 21 130/54 100 Mechanical Ventilator 50 02/25/17 14:57 90 22 50 02/25/17 14:00 92 22 137/54 100 Mechanical Ventilator 50 02/25/17 13:03 72 20 110/52 100 Mechanical Ventilator 50 02/25/17 12:43 65 26 50 02/25/17 12:00 50 02/25/17 12:00 78 02/25/17 12:00 98.0 78 20 125/54 100 Mechanical Ventilator 50 02/25/17 11:17 72 24 50 02/25/17 11:00 72 20 94/52 100 Mechanical Ventilator 50 02/25/17 10:00 77 21 120/54 100 Mechanical Ventilator 60 02/25/17 10:00 50 02/25/17 09:21 85 20 50 Labs: Labs Test 02/24/17 04:10 02/25/17 10:00 White Blood Count 19.0 K/UL (4.8-10.8) 19.2 K/UL (4.8-10.8) Red Blood Count 2.49 M/UL (4.20-5.40) 2.67 M/UL (4.20-5.40) Hemoglobin 7.7 G/DL (12.0-16.0) 8.0 G/DL (12.0-16.0) Hematocrit 23.9 % (37.0-47.0) 25.6 % (37.0-47.0) Mean Corpuscular Volume 96 FL (80-99) 96 FL (80-99) Mean Corpuscular Hemoglobin 30.9 PG (27.0-31.0) 29.9 PG (27.0-31.0) Mean Corpuscular Hemoglobin Concent 32.1 G/DL (32.0-36.0) 31.3 G/DL (32.0-36.0) Red Cell Distribution Width 17.3 % (11.6-14.8) 16.9 % (11.6-14.8) Platelet Count 64 K/UL (150-450) 71 K/UL (150-450) Mean Platelet Volume 9.0 FL (6.5-10.1) 8.7 FL (6.5-10.1) Neutrophils (%) (Auto) % (45.0-75.0) % (45.0-75.0) Lymphocytes (%) (Auto) % (20.0-45.0) % (20.0-45.0) Monocytes (%) (Auto) % (1.0-10.0) % (1.0-10.0) Eosinophils (%) (Auto) % (0.0-3.0) % (0.0-3.0) Basophils (%) (Auto) % (0.0-2.0) % (0.0-2.0) Differential Total Cells Counted 100 100 Neutrophils % (Manual) 92 % (45-75) 87 % (45-75) Lymphocytes % (Manual) 3 % (20-45) 3 % (20-45) Monocytes % (Manual) 4 % (1-10) 6 % (1-10) Eosinophils % (Manual) 0 % (0-3) 0 % (0-3) Basophils % (Manual) 0 % (0-2) 0 % (0-2) Band Neutrophils 1 % (0-8) 4 % (0-8) Platelet Estimate Decreased Decreased Platelet Morphology Normal Normal Hypochromasia 3+ 3+ Anisocytosis 1+ 1+ Spherocytes 1+ Sodium Level 140 mEQ/L (135-145) 137 mEQ/L (135-145) Potassium Level 3.6 mEQ/L (3.4-4.9) 3.9 mEQ/L (3.4-4.9) Chloride Level 95 mEQ/L (98-107) 92 mEQ/L (98-107) Carbon Dioxide Level 31 mEQ/L (20-30) 29 mEQ/L (20-30) Anion Gap 14 (5-15) 16 (5-15) Blood Urea Nitrogen 84 mg/dL (7-23) 103 mg/dL (7-23) Creatinine 4.4 mg/dL (0.5-0.9) 5.2 mg/dL (0.5-0.9) Estimat Glomerular Filtration Rate mL/min (>60) mL/min (>60) Glucose Level 163 mg/dL (74-106) 147 mg/dL (74-106) Uric Acid 5.7 mg/dL (3.0-7.5) Calcium Level 7.6 mg/dL (8.6-10.2) 8.3 mg/dL (8.6-10.2) Phosphorus Level 3.9 mg/dL (2.5-4.8) 5.5 mg/dL (2.5-4.8) Magnesium Level 2.0 mg/dL (1.7-2.5) Total Bilirubin 0.3 mg/dL (0.0-1.2) 0.3 mg/dL (0.0-1.2) Aspartate Amino Transf (AST/SGOT) 18 U/L (5-40) 26 U/L (5-40) Alanine Aminotransferase (ALT/SGPT) 9 U/L (3-33) 10 U/L (3-33) Alkaline Phosphatase 155 U/L (35-104) 168 U/L (35-104) C-Reactive Protein, Quantitative 18.2 mg/dL (< 0.5) Pro-B-Type Natriuretic Peptide 7630 pg/mL (0-450) 54481 pg/mL (0-450) Total Protein 4.0 g/dL (6.6-8.7) 4.6 g/dL (6.6-8.7) Albumin 1.6 g/dL (3.5-5.2) 1.7 g/dL (3.5-5.2) Globulin 2.4 g/dL 2.9 g/dL Albumin/Globulin Ratio 0.6 (1.0-2.7) 0.5 (1.0-2.7) Objective: WDWN chronically ill appearing; on the ventilator arouseable NAD coarse breath sounds bilaterally with scattered rhonchi but no wheeze orally intubated at present S1S2 RRR without MRG; rate controlled NABS nontender no HSM; feeding tube in place; no distention no CC; mild edema slightly worse nonfocal LOC without change skin noted and examined reviewed and edited Accucheck: 141 FELIPE PATHAK Feb 26, 2017 09:09
[2017-02-26] MEDS ORDERED: HYDROmorphone 1mg/ml Carpuject IVP PRN ×2 (09:15→21:00)
--- NOTE | 2017-02-26 10:19 | General Progress Note ---
Assessment/Plan Status: unchanged Assessment/Plan Has acute respiratory distress- intubated in ICU Septic shock ( Had long talk with daughter Gali 01/19 ) - Acute renal failure and hyperKalemia - Renal failure, likely diabetic nephropathy / HTN - Sepsis , Pneumonia, Respiratory failure and Hypoxia other - h/o Cellulitis in diabetic foot right LE - Decubitus ulcer - Dementia - Diabetes mellitus - Nonpressure ulcer to level of fascia right lateral ankle - S/P ORIF right ankle Plan: intubate - ICU- due for extubation On hydrocortisone- Had permacath 01/30 weaning in process Adjust BP meds- Labile BP- - Clonidin PRN HD next 12/29 waiting ! Transfused add phos binders monitor WBCs Monitor renal parameters and Vanco level- ARTUR Kidney done last admission- unremarkable Adjust BP meds- Avoid Nephrotoxics- discussed with CM Per orders Subjective ROS Limited/Unobtainable: Yes Allergies: Coded Allergies: MORPHINE (Verified Adverse Reaction, Severe, PARADOXICAL REACTION, 10/08/12 ) Objective Last 24 Hour Vital Signs Date Time Temp Pulse Resp B/P Pulse Ox O2 Delivery O2 Flow Rate FiO2 02/26/17 10:00 79 26 92/34 90 Mechanical Ventilator 70 02/26/17 09:16 81 24 50 02/26/17 09:00 82 27 89/57 93 Mechanical Ventilator 70 02/26/17 08:00 98.4 85 28 105/37 96 Mechanical Ventilator 70 02/26/17 08:00 70 02/26/17 08:00 85 02/26/17 07:25 82 25 50 02/26/17 07:00 82 25 102/58 99 Mechanical Ventilator 70 02/26/17 06:00 78 20 97/40 99 Mechanical Ventilator 70 02/26/17 05:00 80 29 98/34 96 Mechanical Ventilator 50 02/26/17 04:55 78 15 50 02/26/17 04:00 78 02/26/17 04:00 50 02/26/17 04:00 97.9 78 22 93/45 100 Mechanical Ventilator 50 02/26/17 03:26 97 31 50 02/26/17 03:00 94 29 133/47 96 Mechanical Ventilator 50 02/26/17 02:00 95 28 145/40 95 Mechanical Ventilator 50 02/26/17 01:20 102 27 50 02/26/17 01:00 82 21 124/44 98 Mechanical Ventilator 50 02/26/17 00:00 97.6 77 22 157/53 100 Mechanical Ventilator 50 02/26/17 00:00 50 02/26/17 00:00 86 02/25/17 23:16 80 23 50 02/25/17 23:00 85 20 148/47 100 Mechanical Ventilator 50 02/25/17 22:00 79 21 149/52 100 Mechanical Ventilator 50 02/25/17 21:19 80 26 50 02/25/17 21:00 79 23 147/55 100 Mechanical Ventilator 50 02/25/17 20:00 77 02/25/17 20:00 50 02/25/17 20:00 97.8 77 22 147/55 100 Mechanical Ventilator 50 02/25/17 19:16 77 23 50 02/25/17 19:00 7 22 145/53 100 Mechanical Ventilator 50 02/25/17 18:06 75 21 123/53 100 Mechanical Ventilator 50 02/25/17 17:07 80 21 50 02/25/17 17:00 84 21 125/58 100 Mechanical Ventilator 50 02/25/17 16:00 97.8 85 22 122/54 100 Mechanical Ventilator 50 02/25/17 16:00 50 02/25/17 16:00 92 02/25/17 15:00 82 21 130/54 100 Mechanical Ventilator 50 02/25/17 14:57 90 22 50 02/25/17 14:00 92 22 137/54 100 Mechanical Ventilator 50 02/25/17 13:03 72 20 110/52 100 Mechanical Ventilator 50 02/25/17 12:43 65 26 50 02/25/17 12:00 50 02/25/17 12:00 78 02/25/17 12:00 98.0 78 20 125/54 100 Mechanical Ventilator 50 02/25/17 11:17 72 24 50 02/25/17 11:00 72 20 94/52 100 Mechanical Ventilator 50 Intake and Output 02/25/17 02/26/17 19:00 07:00 Intake Total 595 ml 345 ml Balance 595 ml 345 ml Free Water 140 ml Tube Feeding 455 ml 315 ml Other 30 ml # Bowel Movements 5 2 Height (Feet): 5 Height (Inches): 1.00 Weight (Pounds): 200 General Appearance: no apparent distress EENT: other - on Vent Objective other PE not changed BERTRAM CASTAÑEDA Feb 26, 2017 10:19
--- NOTE | 2017-02-26 12:26 | Infectious Diseases Prog Note ---
Assessment/Plan Assessment/Plan ASSESSMENT: 76 y/o female with: // Probable UTI - UCx(-) // Hypoxia, possible HCAP Scx: ESBL Kleb SPRx - CXR 02/02 : Extensive bilateral interstitial and airspace opacities, unchanged // h/o CoNS bacteremia 11/05 ( 01/09 ) ?real ( PICC tip+ ) vs contaminant r/o recurrence/persistence - surveillance BCx(-) // h/o right ankle cellulitis / osteomyelitis / hardware infection SP incomplete Rx ( recommended to complete 6 weeks IV daptomycin, cefepime ( end ), but daughter apparently declined at last discharge per documentation ) - SP hardware removal 12/15 - no culture sent - 3P bone scan: 3 phase increased activity in region of distal aspect of right fibula compatible with hardware loosening and/or osteomyelitis - XR: surgical hardware seen reducing old healed distal fibular and medial malleolar fractures. No acute fractures. No dislocations. Bones are demineralized. - elevated ESR, CRP - h/o right ankle ORIF // Probable sepsis,SP // Leukocytosis , not improving ( SP sternoids stopped 02/23 ) did not improved with prolong course of AB Rx // Diarrhea C-Diff Neg // ..US abd :neg of infectious process // VDRF intubated 02/07 // ARF on CKD --> IHD per renal SP placement of tunneled right jugular hemodialysis catheter. 01/29 // Dementia // DM2 - HbA1c 6.1% // h/o CAD - trop(-) x1 // [facility] resident // VRE colonized // No ABX allergies // Full Code PLAN: - monitor pt off of AB Rx SP Mycamine d# 6 02/25 ( 02/20 SP DC Merrem d# 14 /14 ) ( 02/07 SP DC Teflaro d# 10 ) ( 01/28 SP IV cefepime d# 10 IV Vanco d# 2 ) - monitor CBC, temperatures - monitor BMP - monitor CXR - respiratory support prn - DNR poor prognosis , weaning , possible terminal extubation tomorrow , Subjective Allergies: Coded Allergies: MORPHINE (Verified Adverse Reaction, Severe, PARADOXICAL REACTION, 10/08/12 ) Subjective possible terminal extubation today on vent Objective Vital Signs Last 24 Hour Vital Signs Date Time Temp Pulse Resp B/P Pulse Ox O2 Delivery O2 Flow Rate FiO2 02/26/17 12:00 98.5 79 30 89/35 92 Mechanical Ventilator 70 02/26/17 12:00 70 02/26/17 11:00 81 28 88/34 94 Mechanical Ventilator 70 02/26/17 10:32 80 28 50 02/26/17 10:00 79 26 92/34 90 Mechanical Ventilator 70 02/26/17 09:16 81 24 50 02/26/17 09:00 82 27 89/57 93 Mechanical Ventilator 70 02/26/17 08:00 98.4 85 28 105/37 96 Mechanical Ventilator 70 02/26/17 08:00 70 02/26/17 08:00 85 02/26/17 07:25 82 25 50 02/26/17 07:00 82 25 102/58 99 Mechanical Ventilator 70 02/26/17 06:00 78 20 97/40 99 Mechanical Ventilator 70 02/26/17 05:00 80 29 98/34 96 Mechanical Ventilator 50 02/26/17 04:55 78 15 50 02/26/17 04:00 78 02/26/17 04:00 50 02/26/17 04:00 97.9 78 22 93/45 100 Mechanical Ventilator 50 02/26/17 03:26 97 31 50 02/26/17 03:00 94 29 133/47 96 Mechanical Ventilator 50 02/26/17 02:00 95 28 145/40 95 Mechanical Ventilator 50 02/26/17 01:20 102 27 50 02/26/17 01:00 82 21 124/44 98 Mechanical Ventilator 50 02/26/17 00:00 97.6 77 22 157/53 100 Mechanical Ventilator 50 02/26/17 00:00 50 02/26/17 00:00 86 02/25/17 23:16 80 23 50 02/25/17 23:00 85 20 148/47 100 Mechanical Ventilator 50 02/25/17 22:00 79 21 149/52 100 Mechanical Ventilator 50 02/25/17 21:19 80 26 50 02/25/17 21:00 79 23 147/55 100 Mechanical Ventilator 50 02/25/17 20:00 77 02/25/17 20:00 50 02/25/17 20:00 97.8 77 22 147/55 100 Mechanical Ventilator 50 02/25/17 19:16 77 23 50 02/25/17 19:00 7 22 145/53 100 Mechanical Ventilator 50 02/25/17 18:06 75 21 123/53 100 Mechanical Ventilator 50 02/25/17 17:07 80 21 50 02/25/17 17:00 84 21 125/58 100 Mechanical Ventilator 50 02/25/17 16:00 97.8 85 22 122/54 100 Mechanical Ventilator 50 02/25/17 16:00 50 02/25/17 16:00 92 02/25/17 15:00 82 21 130/54 100 Mechanical Ventilator 50 02/25/17 14:57 90 22 50 02/25/17 14:00 92 22 137/54 100 Mechanical Ventilator 50 02/25/17 13:03 72 20 110/52 100 Mechanical Ventilator 50 02/25/17 12:43 65 26 50 Height (Feet): 5 Height (Inches): 1.00 Weight (Pounds): 200 Current Medications Medications (Trade) Dose Ordered Sig/Rina Route PRN Reason Start Time Stop Time Status Last Admin Dose Admin Acetaminophen (Tylenol) 650 mg Q6H PRN ORAL Mild Pain/Temp > 100.5 02/07/17 17:00 03/09/17 16:59 Dextrose (Dextrose 50%) STAT PRN IV Hypoglycemia 02/07/17 17:00 03/09/17 16:59 Hydromorphone HCl (Dilaudid) 1 mg Q1HR PRN IVP For Pain 02/26/17 09:15 03/05/17 09:14 Insulin Aspart (NovoLOG) Q6HR SUBQ 02/07/17 18:00 03/09/17 17:59 02/26/17 06:20 Lansoprazole (Prevacid) 30 mg Q12HR GT 02/24/17 21:00 03/26/17 20:59 02/26/17 08:34 Menthol/Methyl Salicylate (Bengay) 1 applic FOUR TIMES A DAY TOPIC 02/07/17 18:00 03/09/17 17:59 02/26/17 08:34 Ondansetron HCl (Zofran) 4 mg Q6H PRN IVP Nausea & Vomiting 02/07/17 17:00 03/09/17 16:59 02/26/17 03:57 Polyethylene Glycol (Miralax) 17 gm DAILYPRN PRN GT Constipation 02/07/17 17:00 03/09/17 16:59 Sevelamer Carbonate (Renvela) 1,600 mg THREE TIMES A DAY NG 02/17/17 13:00 03/19/17 12:59 02/26/17 08:34 GISELLA JEROME M.D. Feb 26, 2017 12:26
--- NOTE | 2017-02-26 12:27 | General Progress Note ---
Assessment/Plan Assessment/Plan Assessment - TF intolerance - resolved - DM - CAD - Resp failure - on weaning trials - leukocytosis and thrombocytopenia - anemia - lung mass - Azotemia Recommendations - Terminal extubation per family discussion - will sign off - please re-consult PRN Subjective Allergies: Coded Allergies: MORPHINE (Verified Adverse Reaction, Severe, PARADOXICAL REACTION, 10/08/12 ) Subjective above noted terminal extubation plans noted Objective Last 24 Hour Vital Signs Date Time Temp Pulse Resp B/P Pulse Ox O2 Delivery O2 Flow Rate FiO2 02/26/17 12:00 98.5 79 30 89/35 92 Mechanical Ventilator 70 02/26/17 12:00 70 02/26/17 11:00 81 28 88/34 94 Mechanical Ventilator 70 02/26/17 10:32 80 28 50 02/26/17 10:00 79 26 92/34 90 Mechanical Ventilator 70 02/26/17 09:16 81 24 50 02/26/17 09:00 82 27 89/57 93 Mechanical Ventilator 70 02/26/17 08:00 98.4 85 28 105/37 96 Mechanical Ventilator 70 02/26/17 08:00 70 02/26/17 08:00 85 02/26/17 07:25 82 25 50 02/26/17 07:00 82 25 102/58 99 Mechanical Ventilator 70 02/26/17 06:00 78 20 97/40 99 Mechanical Ventilator 70 02/26/17 05:00 80 29 98/34 96 Mechanical Ventilator 50 02/26/17 04:55 78 15 50 02/26/17 04:00 78 02/26/17 04:00 50 02/26/17 04:00 97.9 78 22 93/45 100 Mechanical Ventilator 50 02/26/17 03:26 97 31 50 02/26/17 03:00 94 29 133/47 96 Mechanical Ventilator 50 02/26/17 02:00 95 28 145/40 95 Mechanical Ventilator 50 02/26/17 01:20 102 27 50 02/26/17 01:00 82 21 124/44 98 Mechanical Ventilator 50 02/26/17 00:00 97.6 77 22 157/53 100 Mechanical Ventilator 50 02/26/17 00:00 50 02/26/17 00:00 86 02/25/17 23:16 80 23 50 02/25/17 23:00 85 20 148/47 100 Mechanical Ventilator 50 02/25/17 22:00 79 21 149/52 100 Mechanical Ventilator 50 02/25/17 21:19 80 26 50 02/25/17 21:00 79 23 147/55 100 Mechanical Ventilator 50 02/25/17 20:00 77 02/25/17 20:00 50 02/25/17 20:00 97.8 77 22 147/55 100 Mechanical Ventilator 50 02/25/17 19:16 77 23 50 02/25/17 19:00 7 22 145/53 100 Mechanical Ventilator 50 02/25/17 18:06 75 21 123/53 100 Mechanical Ventilator 50 02/25/17 17:07 80 21 50 02/25/17 17:00 84 21 125/58 100 Mechanical Ventilator 50 02/25/17 16:00 97.8 85 22 122/54 100 Mechanical Ventilator 50 02/25/17 16:00 50 02/25/17 16:00 92 02/25/17 15:00 82 21 130/54 100 Mechanical Ventilator 50 02/25/17 14:57 90 22 50 02/25/17 14:00 92 22 137/54 100 Mechanical Ventilator 50 02/25/17 13:03 72 20 110/52 100 Mechanical Ventilator 50 02/25/17 12:43 65 26 50 Intake and Output 02/25/17 02/26/17 19:00 07:00 Intake Total 595 ml 345 ml Balance 595 ml 345 ml Free Water 140 ml Tube Feeding 455 ml 315 ml Other 30 ml # Bowel Movements 5 2 Height (Feet): 5 Height (Inches): 1.00 Weight (Pounds): 200 Objective WDWN NCAT supple CTA RRR soft ND NT no edema ARLIN LONGORIA Feb 26, 2017 12:27
[2017-02-26] MEDS ORDERED: D5W 275ml ONE (15:08)
--- NOTE | 2017-02-26 20:38 | General Progress Note ---
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 bilateral right greater than left pleural effusions and mediastinal lymphadenopathy - she is a poor candidate for biopsy and has a poor prognosis # Anemia 2/2 chronic disease - s/p multiple units of blood # Leukocytosis - counts increasing, related to sepsis and underlying infection, is on antibiotics # Respiratory failure s/p intubation # Respiratory acidosis # Renal failure- pt on HD # ALOC # Sepsis Recs: - Continue to monitor counts - Transfuse to hgb goal >7, plt goal >20k if bleeding --> conservative management - Give PRBC during HD to hgb<7 - She is off heparin, plavix, aspirin, levo, steroids - Agree to administer FFP if INR >2 - Does not require a biopsy as has poor prognosis and poor outcome at this time - OG feeds at maximal rate - Appreciate consultation! continue to follow Subjective ROS Limited/Unobtainable: Yes Constitutional: Reports: no symptoms HEENT: Reports: no symptoms Cardiovascular: Reports: no symptoms Respiratory: Reports: no symptoms Gastrointestinal/Abdominal: Reports: no symptoms Genitourinary: Reports: no symptoms 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: Reports: no symptoms Endocrine: Reports: no symptoms Hematologic/Lymphatic: Reports: anemia Allergies: Coded Allergies: MORPHINE (Verified Adverse Reaction, Severe, PARADOXICAL REACTION, 10/08/12 ) Subjective pt now on 15L NRB, no HD due to hypotension, minimally responsive Objective Last 24 Hour Vital Signs Date Time Temp Pulse Resp B/P Pulse Ox O2 Delivery O2 Flow Rate FiO2 02/26/17 19:42 Non-Rebreather 15.0 100 02/26/17 19:42 91 Non-Rebreather 15.0 100 02/26/17 19:00 61 27 89/25 88 Non-Rebreather 15.0 02/26/17 18:00 66 19 67/35 92 Non-Rebreather 15.0 02/26/17 17:00 64 14 65/46 92 Non-Rebreather 15.0 02/26/17 16:00 98.3 65 14 67/29 92 Non-Rebreather 15.0 02/26/17 16:00 66 02/26/17 15:00 68 15 75/25 90 Non-Rebreather 15.0 02/26/17 14:00 69 28 67/26 88 Non-Rebreather 15.0 02/26/17 13:39 98.5 02/26/17 13:00 80 28 56/22 94 Non-Rebreather 15.0 02/26/17 12:57 Non-Rebreather 15.0 100 02/26/17 12:56 91 Non-Rebreather 15.0 100 02/26/17 12:55 Non-Rebreather 15.0 100 02/26/17 12:39 92 26 50 02/26/17 12:00 98.5 79 30 89/35 92 Mechanical Ventilator 70 02/26/17 12:00 70 02/26/17 12:00 78 02/26/17 11:00 81 28 88/34 94 Mechanical Ventilator 70 02/26/17 10:32 80 28 50 02/26/17 10:00 79 26 92/34 90 Mechanical Ventilator 70 02/26/17 09:16 81 24 50 02/26/17 09:00 82 27 89/57 93 Mechanical Ventilator 70 02/26/17 08:00 98.4 85 28 105/37 96 Mechanical Ventilator 70 02/26/17 08:00 70 02/26/17 08:00 85 02/26/17 07:25 82 25 50 02/26/17 07:00 82 25 102/58 99 Mechanical Ventilator 70 02/26/17 06:00 78 20 97/40 99 Mechanical Ventilator 70 02/26/17 05:00 80 29 98/34 96 Mechanical Ventilator 50 02/26/17 04:55 78 15 50 02/26/17 04:00 78 02/26/17 04:00 50 02/26/17 04:00 97.9 78 22 93/45 100 Mechanical Ventilator 50 02/26/17 03:26 97 31 50 02/26/17 03:00 94 29 133/47 96 Mechanical Ventilator 50 02/26/17 02:00 95 28 145/40 95 Mechanical Ventilator 50 02/26/17 01:20 102 27 50 02/26/17 01:00 82 21 124/44 98 Mechanical Ventilator 50 02/26/17 00:00 97.6 77 22 157/53 100 Mechanical Ventilator 50 02/26/17 00:00 50 02/26/17 00:00 86 02/25/17 23:16 80 23 50 02/25/17 23:00 85 20 148/47 100 Mechanical Ventilator 50 02/25/17 22:00 79 21 149/52 100 Mechanical Ventilator 50 02/25/17 21:19 80 26 50 02/25/17 21:00 79 23 147/55 100 Mechanical Ventilator 50 Intake and Output 02/25/17 02/26/17 19:00 07:00 Intake Total 595 ml 345 ml Balance 595 ml 345 ml Free Water 140 ml Tube Feeding 455 ml 315 ml Other 30 ml # Bowel Movements 5 2 Height (Feet): 5 Height (Inches): 1.00 Weight (Pounds): 200 General Appearance: WD/WN EENT: normal ENT inspection Neck: non-tender Cardiovascular: normal peripheral pulses Respiratory/Chest: rhonchi - bilaterally Abdomen: normal bowel sounds Extremities: normal range of motion 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
[2017-02-26] MEDS ORDERED: Analgesic Balm 15gm TOPIC SCH (21:00)
[2017-02-26] MEDS ORDERED: Miralax 17gm pkt GT PRN (21:00)
[2017-02-27] VITALS (7 sets, daily range): BP systolic 61–71; BP diastolic 22–33
--- NOTE | 2017-02-27 02:58 | Progress Note ---
DATE: 02/26/2017 SUBJECTIVE: The patient is now extubated. Blood pressure is marginal. She is on morphine drip as needed. OBJECTIVE: VITAL SIGNS: Blood pressure 89/35, pulse 79, respirations 30, and afebrile. RESPIRATORY: Bilateral breath sounds. HEART: Irregularly irregular rhythm. ABDOMEN: Soft. EXTREMITIES: Dependent edema. ASSESSMENT: Multiorgan system failure. Failure to . Failure to improve despite aggressive interventions. The patient is placed on comfort care appropriately based on clinical course. I will sign off. Joss Rush M.D. DR: ERICKA JOB#: [id number] CC:
[2017-02-27] MEDS: NovoLOG Insulin Flexpen SUBQ SCH ×2 (06:11)
[2017-02-27] MEDS ORDERED: Renvela 800mg Pkt NG SCH (09:00)
--- NOTE | 2017-02-27 17:49 | Critical Care Progress Note ---
Assessment/Plan Assessment/Plan hypoxemia respiratory failure respiratory acidosis pulmonary infiltrates thrombocytopenia renal failure ALOC chronic encephalopathy septic shock leukocytosis pulmonary infiltrates ARDS DIC likely s/p transfusion atrial fibrillation hypotension PLAN terminal care comfort management will update family DNR expected Critical Care - Subjective Interval Events: patient seen earlier near terminal I&O: Intake and Output 02/26/17 02/27/17 19:00 07:00 Intake Total 500 ml 440 ml Output Total 500 ml Balance 500 ml -60 ml Free Water 20 ml 20 ml Tube Feeding 420 ml 420 ml Other 60 ml Output Urine Total 500 ml # Voids 3 # Bowel Movements 6 1 Critical Care - Objective ET-Tube: 7.0 ET Position: 22 Last 24 Hour Vital Signs Date Time Temp Pulse Resp B/P Pulse Ox O2 Delivery O2 Flow Rate FiO2 02/27/17 06:53 93 Non-Rebreather 15.0 100 02/27/17 06:53 Non-Rebreather 15.0 100 02/27/17 06:00 96.0 60 18 69/33 Ambu-Bag 15.0 02/27/17 05:00 97.7 68 20 61/22 97 Ambu-Bag 15.0 02/27/17 04:00 96.5 60 18 69/28 95 Ambu-Bag 15.0 02/27/17 03:00 96.1 60 18 68/22 Room Air 02/27/17 02:00 97.0 62 18 71/30 94 Room Air 02/27/17 01:00 97.0 62 18 71/32 Room Air 02/27/17 00:00 97.0 62 18 71/30 Room Air 02/26/17 23:00 97.1 66 20 77/31 95 Ambu-Bag 15.0 02/26/17 22:00 97.0 65 20 68/31 96 Ambu-Bag 15.0 02/26/17 21:00 96.3 63 20 73/28 94 Ambu-Bag 15.0 02/26/17 20:00 96.3 63 20 73/28 94 Ambu-Bag 15.0 02/26/17 20:00 64 02/26/17 19:42 Non-Rebreather 15.0 100 02/26/17 19:42 91 Non-Rebreather 15.0 100 02/26/17 19:40 96.1 61 15 64/21 91 Non-Rebreather 15.0 4/27/17 19:00 61 27 89/25 88 Non-Rebreather 15.0 02/26/17 18:00 66 19 67/35 92 Non-Rebreather 15.0 Objective: WDWN chronically ill with poor LOC; unresponsive coarse breath sounds with reduce air entry on oxygen S1S2 RRR without MRG; rate controlled NABS nontender no CC; unresponsive skin noted and examined reviewed and edited Accucheck: 132 FELIPE PATHAK Feb 27, 2017 17:49
== END 2017-02-27 11:57 | disposition expired | DRG 870 ==
LOC: EDBD 21:06 → EMR 21:51 → 2W 23:11 → EDBEDREQ 01-19 06:35 → 4W 01-20 16:15 → 2W 02-06 11:20 → ICU 02-07 18:41 → 4E 02-26 20:11
PROC: 5A1D60Z (ICD-10-PCS; principal; 2017-01-19)
PROC: B513ZZA Fluoroscopy of Right Jugular Veins, Guidance (ICD-10-PCS; 2017-01-29)
PROC: 05HM33Z Insertion of Infusion Device into Right Internal Jugular Vein, Percutaneous Approach (ICD-10-PCS; 2017-01-29)
PROC: 0BH17EZ Insertion of Endotracheal Airway into Trachea, Via Natural or Artificial Opening (ICD-10-PCS; 2017-02-07)
PROC: 5A1945Z Respiratory Ventilation, 24-96 Consecutive Hours (ICD-10-PCS; 2017-02-07)
PROC: 5A1955Z Respiratory Ventilation, Greater than 96 Consecutive Hours (ICD-10-PCS; 2017-02-09)
PROC: 0BH17EZ Insertion of Endotracheal Airway into Trachea, Via Natural or Artificial Opening (ICD-10-PCS; 2017-02-09)
DX: A41.9 Sepsis, unspecified organism (principal); D65 Disseminated intravascular coagulation [defibrination syndrome]; J96.21 Acute and chronic respiratory failure with hypoxia; R65.21 Severe sepsis with septic shock; G93.40 Encephalopathy, unspecified; I50.33 Acute on chronic diastolic (congestive) heart failure; J80 Acute respiratory distress syndrome; L89.151 Pressure ulcer of sacral region, stage 1; J15.0 Pneumonia due to Klebsiella pneumoniae; N18.6 End stage renal disease; N17.9 Acute kidney failure, unspecified; M86.171 Other acute osteomyelitis, right ankle and foot; I13.2 Hypertensive heart and chronic kidney disease with heart failure and with stage 5 chronic kidney disease, or end stage renal disease; L97.319 Non-pressure chronic ulcer of right ankle with unspecified severity; Z99.11 Dependence on respirator [ventilator] status; Z51.5 Encounter for palliative care; D63.1 Anemia in chronic kidney disease; E87.5 Hyperkalemia; Z98.890 Other specified postprocedural states; Z99.2 Dependence on renal dialysis; F03.90 Unspecified dementia, unspecified severity, without behavioral disturbance, psychotic disturbance, mood disturbance, and anxiety; E11.22 Type 2 diabetes mellitus with diabetic chronic kidney disease; I25.10 Atherosclerotic heart disease of native coronary artery without angina pectoris; R91.8 Other nonspecific abnormal finding of lung field; I48.91 Unspecified atrial fibrillation; Z66 Do not resuscitate; R68.0 Hypothermia, not associated with low environmental temperature; K31.84 Gastroparesis; E11.21 Type 2 diabetes mellitus with diabetic nephropathy; R62.7 Adult failure to thrive
CPT/HCPCS: 36415; 36600; 70450; 71010; 71250; 74000; 74230; 76000; 76700; 76775; 80048; 80053; 80061; 80202; 81001; 81003; 82247; 82248; 82270; 82436; 82550; 82553; 82607; 82746; 82803; 82962; 82977; 83010; 83036; 83540; 83550; 83605; 83735; 83880; 83930; 83935; 84100; 84133; 84300; 84439; 84443; 84484; 84550; 85007; 85025; 85044; 85060; 85379; 85384; 85610; 85730; 86140; 86703; 86706; 86707; 86803; 86850; 86870; 86880; 86900; 86901; 86904; 86920; 86927; 87040; 87070; 87081; 87086; 87181; 87205; 87324; 89050; 93005; 94002; 94003; 94640; 94660; 94664; 94760; J0712; J1815; J2405; J7620